=== PATIENT | female | born 1960 | race African-American/Black ===

== ENCOUNTER 2021-07-31 13:29 | Inpatient (IN) | payer OTHER, SELFPAY ==
[2021-07-31] VITALS (11 sets, daily range): BP systolic 105–160; BP diastolic 53–78; PULSE 59–115; RESP 14–25; TEMP 36.2–36.4; O2SAT 90–98; BMI 70.4; BMI 72.1
--- NOTE | 2021-07-31 13:56 | EKG12_ITS ---
Test Reason : GEN ILLNESS Blood Pressure : / mmHG Vent. Rate : 065 BPM Atrial Rate : 065 BPM P-R Int : 186 ms QRS Dur : 104 ms QT Int : 450 ms P-R-T Axes : 069 -71 093 degrees QTc Int : 468 ms Sinus rhythm with marked sinus arrhythmia Left anterior fascicular block Poor R wave progression Abnormal ECG Confirmed by CARMEL HANKINS, RJ ([id number]), newspaper editor KANIKA SWEENEY ([id number]) on 08/01/2021 8:53:58 AM Referred By: ANGELA Confirmed By:RJ BURT MD
[2021-07-31 14:29] LABS: Absolute Lymphocyte Count 0.99 X10^3/uL (0.83-4.51); Basophil# 0.04 X10^3/uL; Basophil% 0.6 % (0-1); Eosinophil# 0.18 X10^3/uL; Eosinophils% 2.5 % (0-5); Hematocrit 29.8 % (37-47); Hemoglobin 7.6 g/dL (12.0-15.0); Lymphocyte # 0.99 X10^3/ul (0.83-4.51); Lymphocyte % 13.8 % (19-41); Mean Corp Hgb Conc 25.5 g/dL (32-36); Mean Corpuscular Hgb 22.1 pg (27.0-32.0); Mean Corpuscular Volume 86.6 fL (81-99); Mean Platelet Vol. 10.1 fl (6.2-12.0); Monocyte# 1.01 X10^3/uL; NRBC Flagged by Analyzer 0 % (0-5); Neutrophil # 4.96 X10^3/uL (2.7-7.7); Platelet Count 316 K/mm3 (150-450); Red Blood Count 3.44 M/mm3 (4.2-5.4); White Blood Count 7.2 K/mm3 (4.4-11.0)
[2021-07-31 14:56] LABS: AST(SGOT) 24 U/L (15-37); Alanine Aminotransfer ALT/SGPT 19 U/L (13-56); Albumin, Serum 3.1 g/dL (3.2-5.0); Alkaline Phosphatase 206 U/L (45-117); Anion Gap 2 (5-15); BUN 34 mg/dL (7-18); BUN/Creat Ratio 24.6 RATIO (10-20); Bilirubin, Direct 0.39 mg/dL (0.00-0.30); Calcium,Total 9.1 mg/dL (8.5-10.1); Chloride 95 mmol/L (98-107); Creatinine, Serum 1.38 mg/dL (0.55-1.02); EST Glomerular Filtration Rate 41 mL/min (>60); Est Glom Filt Rate - Afr Amer 50 mL/min (>60); Estimated Creatinine Clearance 41.63 ml/min; Glucose 98 mg/dL (74-106); Potassium 3.7 mmol/L (3.5-5.1); Protein, Total 9.1 g/dL (6.4-8.2); Sodium Level 139 mmol/L (136-145); Troponin-I HS 22 pg/mL (3.0-54.0)
[2021-07-31 15:23] LABS: Mucous, Urine 0 SEEN /hpf (<or=2+)
[2021-07-31 15:28] LABS: Color, Urine Yellow (Yellow); Glucose, Dipstick Normal (Normal); Ketone-Dipstick Negative (Negative); Leukocyte Esterase-Dipstick Negative /ul (Negative); Nitrite-Dipstick Negative (Negative); Occult Blood-Urine Negative /ul (Negative); Protein-Dipstick 30 mg/dl (Negative); Specific Gravity, Urine 1.015 (1.002-1.030); Urine Bilirubin Dipstick Negative (Negative); Urine Clarity Clear (Clear); Urine Urobilinogen Normal (Normal)
--- NOTE | 2021-07-31 15:34 | EDS_ITS ---
HPI History of Present Illness Chief Complaint: Weakness Informant: patient and family Onset/Context/Timing Onset: Days Context: Gradual Onset Current Severity: Moderate Maximum Severity: Moderate Narrative Narrative: Patient presents with family secondary to generalized weakness. She reports increasing weakness recently but much worse over the last 3 days. She describes difficulty holding a cup and feels like her hands are still too weak and she drops things. She was seen at [place] emergency room on Friday. Noncontrast head CT was normal. Lab work was obtained. Family states that she has gotten more weak if anything since leaving the hospital. She denies headache, chest pain, abdominal pain. She denies urinary symptoms. [facility] Medical History Hypertension Obesity Type 2 diabetes mellitus Home Medications albuterol sulfate 2.5 mg INHALATION Q6HWA.RT PRN 11/23/12 [History Last Taken 07/31/21 13:00] losartan 100 mg PO DAILY 11/23/12 [History Last Taken 07/30/21] lorazepam 0.5 - 1 mg PO BID PRN 09/27/14 [History Last Taken 07/30/15] furosemide 80 mg PO BIDLX 01/24/16 [History Last Taken 07/31/21] insulin glargine U-300 conc [Olga Lopez] 65 unit SQ QHS 01/24/16 [History Last Taken 07/30/21] fluticasone propionate 2 spray NASAL DAILY PRN 02/22/16 [History Last Taken 1 Week Ago ~07/24/21] sertraline 100 - 150 mg PO DAILY 02/22/16 [History Last Taken 07/31/21] benzonatate 100 mg PO TID PRN 07/31/21 [History Last Taken 07/31/21] cyclobenzaprine 5 mg PO TID PRN 07/31/21 [History Last Taken Unknown] magnesium 250 mg PO DAILY 07/31/21 [History Last Taken 07/31/21] metolazone 5 mg PO BID PRN 07/31/21 [History Last Taken Unknown] pantoprazole 40 mg PO BID 07/31/21 [History Last Taken 07/31/21] Allergy/AdvReac Type Severity Reaction Status Date / Time codeine Allergy Nausea/Vom/ Verified 07/31/21 13:31 Diarrhea iodine Allergy Swelling Verified 07/31/21 13:31 latex Allergy Shortness Verified 07/31/21 13:31 of breath meloxicam Allergy Rash Verified 07/31/21 13:31 Penicillins Allergy Shortness Verified 07/31/21 13:31 of breath hydrocodone bitartrate AdvReac Nausea/Vom/ Verified 07/31/21 13:31 [From Vicodin] Diarrhea prednisone AdvReac Other Verified 07/31/21 13:31 Social History Smoking Status: Never smoker ROS ROS ED Constitutional Constitutional ED: Denies chills or fever(s) Eyes Eyes: Denies change in vision ENT ENT ED: Denies sore throat Cardiovascular Cardiovascular: Denies chest pain Respiratory/Chest Respiratory/Chest: Denies cough or dyspnea Gastrointestinal Gastrointestinal: Denies abdominal pain, nausea or vomiting Genitourinary Genitourinary ED: Denies dysuria Musculoskeletal Musculoskeletal: Denies back pain Integumentary Reports other Details: Wounds to left inner thigh ; Denies rash Neurologic Neurologic: Reports weakness; Denies headache(s) Psychiatric Psychiatric: Denies anxiety or depression Allergic/Immunologic Allergic/Immunologic ED: Denies urticaria EXAM Physical Exam Const Vital Signs: 07/31/21 13:31 07/31/21 15:33 Temperature 97.5 F L Temperature Source Temporal Pulse Rate 115 H 67 Respiratory Rate 25 H 18 Blood Pressure 124/78 H 159/64 H Blood Pressure Mean 93 95 Pulse Ox 90 97 Oxygen Delivery Method Room Air Nasal Cannula Oxygen Flow Rate (L/min) 2 Positive obese Nutritional Appearance: obese HEENT Reports moist mucous membranes Eyes PERRL and EOMs intact bilaterally Neck supple Chest Wall inspection of chest normal and palpation of chest normal Resp normal respiratory effort and clear to auscultation bilaterally Cardio regular rate and regular rhythm GI non-tender Palpation: soft Extremity Extremity Narrative: 2 wounds to the inner surface of the left thigh, 1 measuring 2 x 2 cm, 1 measuring 3 x 4 cm. No drainage or surrounding cellulitis. No sign of infection. Neuro oriented x3 Neuro Narrative: No focal neurologic deficits. Patient able to hold both arms up against gravity without difficulty. Ldgryo-al-ivdd testing normal. Sensorium / Orientation: alert Skin Skin Narrative: Left thigh wounds as noted above MDM MDM MDM Narrative Medical decision making narrative: Patient's work-up from [facility] was reviewed including a normal noncontrast head CT. EKG, lab work, urinalysis obtained. Lab Data Attestation: I reviewed the patient's lab results. Labs: Laboratory Results - last 24 hr 07/31/21 07/31/21 07/31/21 14:15 14:15 14:15 WBC 7.2 RBC 3.44 L Hgb 7.6 L Hct 29.8 L MCV 86.6 MCH 22.1 L MCHC 25.5 L RDW Std Deviation 60.0 H RDW Coeff of Amirah 19.0 H Plt Count 316 MPV 10.1 Immature Gran % (Auto) 0.100 Neut % (Auto) 69.0 Lymph % (Auto) 13.8 L [place] % (Auto) 14.0 H Eos % (Auto) 2.5 Baso % (Auto) 0.6 Absolute Neuts (auto) 5.0 Absolute Lymphs (auto) 0.99 Nucleated RBC % 0 Sodium 139 Potassium 3.7 Chloride 95 L Carbon Dioxide 42.0 H Anion Gap 2 L BUN 34 H Creatinine 1.38 H Estim Creat Clear Calc 41.63 Est GFR (MDRD) Af Amer 50 L Est GFR (MDRD) Non-Af 41 L BUN/Creatinine Ratio 24.6 H Glucose 98 Calcium 9.1 Total Bilirubin 0.80 Direct Bilirubin 0.39 H AST 24 ALT 19 Alkaline Phosphatase 206 H Ammonia 37.0 H Troponin I High Sens 22 Total Protein 9.1 H Albumin 3.1 L Globulin 6.0 H Urine Color Urine Clarity Urine pH Ur Specific [place] Urine Protein Urine Glucose (UA) Urine Ketones Urine Occult Blood Urine Nitrite Urine Bilirubin Urine Urobilinogen Ur Leukocyte Esterase Urine RBC Urine WBC Ur Squamous Epith Cells Urine Bacteria Hyaline Casts Urine Mucus Urine Opiates Screen Urine Methadone Screen Ur Barbiturates Screen Ur Phencyclidine Scrn Ur Amphetamines Screen MDMA (Ecstasy) Screen U Benzodiazepines Scrn Urine Cocaine Screen U Cannabinoids Screen Ur Drug Screen Comment 07/31/21 07/31/21 15:20 15:20 WBC RBC Hgb Hct MCV MCH MCHC RDW Std Deviation RDW Coeff of Amirah Plt Count MPV Immature Gran % (Auto) Neut % (Auto) Lymph % (Auto) [place] % (Auto) Eos % (Auto) Baso % (Auto) Absolute Neuts (auto) Absolute Lymphs (auto) Nucleated RBC % Sodium Potassium Chloride Carbon Dioxide Anion Gap BUN Creatinine Estim Creat Clear Calc Est GFR (MDRD) Af Amer Est GFR (MDRD) Non-Af BUN/Creatinine Ratio Glucose Calcium Total Bilirubin Direct Bilirubin AST ALT Alkaline Phosphatase Ammonia Troponin I High Sens Total Protein Albumin Globulin Urine Color Yellow Urine Clarity Clear Urine pH 6.0 Ur Specific [place] 1.015 Urine Protein 30 H Urine Glucose (UA) Normal Urine Ketones Negative Urine Occult Blood Negative Urine Nitrite Negative Urine Bilirubin Negative Urine Urobilinogen Normal Ur Leukocyte Esterase Negative Urine RBC 0-5 SEEN Urine WBC 0-5 SEEN Ur Squamous Epith Cells 0-5 SEEN Urine Bacteria RARE Hyaline Casts 25-50 SEEN Urine Mucus 0 SEEN Urine Opiates Screen NEGATIVE Urine Methadone Screen NEGATIVE Ur Barbiturates Screen NEGATIVE Ur Phencyclidine Scrn NEGATIVE Ur Amphetamines Screen NEGATIVE MDMA (Ecstasy) Screen NEGATIVE U Benzodiazepines Scrn NEGATIVE Urine Cocaine Screen NEGATIVE U Cannabinoids Screen NEGATIVE Ur Drug Screen Comment EKG Initial EKG: Attestation: I personally reviewed and interpreted this EKG as follows: Interpretation: Sinus Rhythm (Sinus at 65 with no acute ischemia.) Treatment and Re-Evaluation Narrative: Lab work remarkable for hemoglobin of 7.6. I was able to review prior labs over the last 15 months in [facility]. Her hemoglobin has been running 7.5-8.5. She is reported getting iron transfusions. Chemistry studies are unremarkable. Ammonia level is slightly elevated at 37. Urinalysis shows no acute infection and talk screen is negative. Patient has had continued decline since her recent ER evaluation. I do believe she would benefit from further evaluation and MRI of head. I will speak with the hospitalist. Discharge Plan Triage Chief Complaint: Weakness ED Provider: Princess Mcgee Dx/Rx/DC Orders Clinical Impression: Weakness Prescriptions: No Action albuterol sulfate 2.5 MG/3 ML solution for nebulization 2.5 mg inhalation Q6HWA.RT PRN (Reason: Asthma) RF: 0 losartan 100 MG tablet 100 mg PO DAILY RF: 0 lorazepam 1 MG tablet 0.5 - 1 mg PO BID PRN (Reason: Anxiety) RF: 0 furosemide 40 MG tablet 80 mg PO BIDLX RF: 0 Toujeo SoloStar U-300 Insulin 300 UNIT/ML insulin pen 65 unit SQ QHS RF: 0 sertraline 100 MG tablet 100 - 150 mg PO DAILY RF: 0 fluticasone propionate 1 SPRAY spray,suspension 2 spray NASAL DAILY PRN (Reason: Sinus Symptoms) RF: 0 metolazone 5 mg tablet 5 mg PO BID PRN (Reason: fluid) RF: 0 benzonatate 100 mg capsule 100 mg PO TID PRN (Reason: Cough) RF: 0 pantoprazole 40 mg tablet,delayed release (DR/EC) 40 mg PO BID RF: 0 magnesium 250 mg Tablet 250 mg PO DAILY RF: 0 cyclobenzaprine 5 mg tablet 5 mg PO TID PRN (Reason: Spasms) RF: 0 Primary Care Provider: Silvia Tolbert Referrals: Silvia Tolbert MD [Primary Care Provider] - Disposition Disposition: Acute Care [facility]
[2021-07-31 15:39] LABS: Bacteria RARE /hpf (None Seen); Hyaline Cast 25-50 SEEN /lpf (0-5); Red Blood Cells-Urine 0-5 SEEN /hpf (0-5); Squamous Epithelial Cells - UA 0-5 SEEN /hpf (5-10); White Blood Cells 0-5 SEEN /hpf (0-5)
[2021-07-31 15:50] LABS: Amphetamine Urine VISTA NEGATIVE (<1000 ng/mL); Barbiturate Urine VISTA NEGATIVE (< 200 ng/mL); Benzodiazepine Urine VISTA NEGATIVE (< 200 ng/mL); Cocaine Urine VISTA NEGATIVE (< 300 ng/mL); Ecstacy Urine VISTA NEGATIVE (< 500 ng/mL); Methadone Urine VISTA NEGATIVE (< 300 ng/mL); PCP Urine VISTA NEGATIVE (< 25 ng/mL); THC Urine VISTA NEGATIVE (< 50 ng/mL); Vista UDS pH Range 5
--- NOTE | 2021-07-31 16:26 | HP.PCM.HOS_ITS ---
HPI - General General Date of Admission: 07/31/21 HPI Narrative MEGGAN ARITA, is a 60 F with a PMH as outlined who presents with a complaint of weakness. Weakness had been going on for about 3 days. She said she felt like she had been dropping things easily for the past 3 days. She went to [place] ED and a noncontrast CT of the brain was negative. She was sent home. She had been getting weaker by the day, and so family brought her in today. She denied any fever, chills, nausea, vomiting, headache, chest pain, palpitations, dizziness, nausea or vomiting. Review of systems is otherwise negative. Son was by her bedside and mentioned that patient easily dozed off and fell asleep during the day since her symptoms started. She is known to have sleep apnea, and is suppsed to wear a CPAP, but says she is not able to tolerate it. She therefore wears 2L of oxygen at home. Vitals in the ED were BP of 159/64, NE of 67, RR of 18 and oxygen sats of 97% on 2L of oxygen. CBC showed hemoglobin of 7.6 and WBC of 7.2 with platelets of 316. Chemistry shows sodium of 139 with bicarb of 42 and creatinine of 1.38. Baseline creatinine from 2016 was 0.75. Her bicarb is chronically elevated. Her ammonia level was 37. Total bilirubin was 0.39 with ALP of 206 and normal AST and ALT. Urinalysis showed no evidence of UTI. Urine tox was also negative. She has been admitted to be managed well weakness and debility. [facility] Medical History (Updated 07/31/21 @ 17:53 by Suresh Hernandez) Anemia Anxiety Asthma CPAP (continuous positive airway pressure) dependence Hypertension Obesity Sleep apnea Type 2 diabetes mellitus Home Medications albuterol sulfate 2.5 mg INHALATION Q6HWA.RT PRN 11/23/12 [History Last Taken 07/31/21 13:00] losartan 100 mg PO DAILY 11/23/12 [History Last Taken 07/30/21] lorazepam 0.5 - 1 mg PO BID PRN 09/27/14 [History Last Taken 07/30/15] furosemide 80 mg PO BIDLX 01/24/16 [History Last Taken 07/31/21] insulin glargine U-300 conc [Toujejonas Lopez] 65 unit SQ QHS 01/24/16 [History Last Taken 07/30/21] fluticasone propionate 2 spray NASAL DAILY PRN 02/22/16 [History Last Taken 1 Week Ago ~07/24/21] sertraline 100 - 150 mg PO DAILY 02/22/16 [History Last Taken 07/31/21] benzonatate 100 mg PO TID PRN 07/31/21 [History Last Taken 07/31/21] cyclobenzaprine 5 mg PO TID PRN 07/31/21 [History Last Taken Unknown] magnesium 250 mg PO DAILY 07/31/21 [History Last Taken 07/31/21] metolazone 5 mg PO BID PRN 07/31/21 [History Last Taken Unknown] pantoprazole 40 mg PO BID 07/31/21 [History Last Taken 07/31/21] Allergy/AdvReac Type Severity Reaction Status Date / Time codeine Allergy Nausea/Vom/ Verified 07/31/21 13:31 Diarrhea iodine Allergy Swelling Verified 07/31/21 13:31 latex Allergy Shortness Verified 07/31/21 13:31 of breath meloxicam Allergy Rash Verified 07/31/21 13:31 Penicillins Allergy Shortness Verified 07/31/21 13:31 of breath hydrocodone bitartrate AdvReac Nausea/Vom/ Verified 07/31/21 13:31 [From Vicodin] Diarrhea prednisone AdvReac Other Verified 07/31/21 13:31 Surgical History (Updated 07/31/21 @ 17:53 by Suresh Hernandez) History of cholecystectomy Social History Smoking Status: Never smoker ROS Review of Systems ROS Unobtainable: Denies due to encephalopathy Constitutional Constitutional: Reports fatigue, malaise and weakness; Denies anorexia, chills or fever(s) Eyes Eyes: Denies change in vision ENT HEENT: Denies dysphagia or headache(s) Cardiovascular Cardiovascular: Denies chest pain, dyspnea on exertion, edema, lightheadedness, orthopnea, palpitations, paroxysmal nocturnal dyspnea or rapid heart rate Respiratory/Chest Respiratory/Chest: Denies cough, dyspnea, productive cough, shortness of breath at rest or shortness of breath with exertion Gastrointestinal Gastrointestinal: Denies abdominal pain, nausea or vomiting Genitourinary Genitourinary: Denies burning urination Musculoskeletal Musculoskeletal: Denies back pain Neurologic Neurologic: Reports confusion; Denies abnormal speech, dizziness, focal weakness, headache(s), numbness, paresthesias, seizure-like activity, seizures, tingling or tremor(s) Psychiatric Psychiatric: Denies anxiety or depression Vital Signs Vital Signs Vital Signs: 07/31/21 13:31 07/31/21 15:33 Temperature 97.5 F L Temperature Source Temporal Pulse Rate 115 H 67 Respiratory Rate 25 H 18 Blood Pressure 124/78 H 159/64 H Blood Pressure Mean 93 95 Pulse Ox 90 97 Oxygen Delivery Method Room Air Nasal Cannula Oxygen Flow Rate (L/min) 2 Weight Weight: 450 lb Body Mass Index (BMI) 70.4 Physical Exam Const alert and no apparent distress Constitutional Narrative: super morbid obesity General Appearance: cooperative Orientation / Consciousness: lethargic HEENT normocephalic, head/scalp atraumatic, hearing grossly normal bilaterally and moist oral mucous membranes Eyes PERRL, EOMs intact bilaterally and conjunctivae normal Neck no lymphadenopathy and supple Resp normal respiratory effort, no retractions, no use of accessory muscles and clear to auscultation bilaterally Resp Narrative: on 2L of oxygen; diminished breath sounds bibasally Cardio regular rate, regular rhythm, S1 normal heart sound, S2 normal heart sound and no murmurs GI normal to inspection, nondistended, normoactive bowel sounds, soft to palpation, non-tender, non-distended and hepatosplenomegaly Extremity normal to inspection, full ROM and no clubbing, cyanosis or edema Peripheral Pulses: Yes pulses 2+ throughout Skin no rashes or lesions noted Neuro oriented x3, CN's II-XII intact bilaterally and no focal motor deficits Sensorium / Orientation: awake and alert Motor Exam: strength 5/5 throughout Psych affect normal Results Lab / Micro Data Result Diagrams: 07/31/21 14:15 07/31/21 14:15 Labs: Laboratory Results - last 24 hr 07/31/21 14:15: WBC 7.2, RBC 3.44 L, Hgb 7.6 L, Hct 29.8 L, MCV 86.6, MCH 22.1 L , MCHC 25.5 L, RDW Std Deviation 60.0 H, RDW Coeff of Amirah 19.0 H, Plt Count 316, MPV 10.1, Immature Gran % (Auto) 0.100, Neut % (Auto) 69.0, Lymph % (Auto) 13.8 L, [place] % (Auto) 14.0 H, Eos % (Auto) 2.5, Baso % (Auto) 0.6, Absolute Neuts (auto) 5.0, Absolute Lymphs (auto) 0.99, Nucleated RBC % 0 07/31/21 14:15: Sodium 139, Potassium 3.7, Chloride 95 L, Carbon Dioxide 42.0 H, Anion Gap 2 L, BUN 34 H, Creatinine 1.38 H, Estim Creat Clear Calc 41.63, Est GFR (MDRD) Af Amer 50 L, Est GFR (MDRD) Non-Af 41 L, BUN/Creatinine Ratio 24.6 H , Glucose 98, Calcium 9.1, Total Bilirubin 0.80, Direct Bilirubin 0.39 H, AST 24, ALT 19, Alkaline Phosphatase 206 H, Troponin I High Sens 22, Total Protein 9.1 H, Albumin 3.1 L, Globulin 6.0 H 07/31/21 14:15: Ammonia 37.0 H 07/31/21 15:20: Urine Color Yellow, Urine Clarity Clear, Urine pH 6.0, Ur Specific [place] 1.015, Urine Protein 30 H, Urine Glucose (UA) Normal, Urine Ketones Negative, Urine Occult Blood Negative, Urine Nitrite Negative, Urine Bilirubin Negative, Urine Urobilinogen Normal, Ur Leukocyte Esterase Negative, Urine RBC 0-5 SEEN, Urine WBC 0-5 SEEN, Ur Squamous Epith Cells 0-5 SEEN, Urine Bacteria RARE, Hyaline Casts 25-50 SEEN, Urine Mucus 0 SEEN 07/31/21 15:20: Urine Opiates Screen NEGATIVE, Urine Methadone Screen NEGATIVE, Ur Barbiturates Screen NEGATIVE, Ur Phencyclidine Scrn NEGATIVE, Ur Amphetamines Screen NEGATIVE, MDMA (Ecstasy) Screen NEGATIVE, U Benzodiazepines Scrn NEGATIVE, Urine Cocaine Screen NEGATIVE, U Cannabinoids Screen NEGATIVE, Ur Drug Screen Comment Assessment & Plan Assessment/Plan (1) Weakness: PLAN: DEbility and weakness * I think her symptoms are due to her untreated sleep apnea and OHS, as she falls asleep very easily and is very lethargic during the day * she is supposed to wear CPAP at home but doesnt * ammonia is mildly elevated; liver enzymes are largely WNL * CT of hte brain done at outside hospital a few days ago was largely WNL * patient adamantly refuses MRI, and I do think she is low suspicion for a stroke. * admit to PCU with telemetry * put on lactulose * get ABG o/a of super morbid obesity, as CO2 retention may also be playing a role; ABG showed pH of 7.35, with pCO2 of 70, and pO2 of 66. * fall precautions * PT/OT consult * hold all sedative meds * * #HYpercapnia due to untreated OHS and HONEY * as above * consult pulmonology as she hasnt been seeing pulmonology on outpatient basis * counseled that her severe morbid obesity is contributing to her sleep apnea. * #LORNE * Cr is 1.38. Will hydrate gently and trend * only result in EMR is from 2015 when CR was <1; she usually follows up at [facility] now. WIll request records as this may be closer to her new baseline * #Type 2 diabetes mellitus: * On Toujeo 65 units nightly. * Insulin sliding scale. * Accu-Cheks ACH S. #Super morbid obesity * BMI is 72.1. Patient says she wants to lose weight and wants to try medication to help her lose weight. She is not willing to consider bariatric surgery because she says she knows a few friends who had severe complications from this. * To follow-up on outpatient basis with her PCP for consideration about medications to help lose weight. Counseled about dietary interventions. * #Chronic anemia * says she has a history of anemia and has been getting recurrent iron infusions at her PCP * scheduled for iron infusion tomorrow and family would like for her to receive it here * will check iron profile and order iron infusion for tomorrow morning * #Hypertension: On losartan #Heart failure: * On metolazone and Lasix. * Not in acute exacerbation. CUrrnent EF unknown as last echo on file is from May 2012 and showed EF of 60%, with normal LVSF nad no regional wall motion abnormalities noted. * check BNP #History of asthma: not in exacerbation. Breathing treatment with bronchodilators DVT prophylaxis: lovenox Code status: full code * Patient and her sons counseled extensively about different types of CODE STATUS including full code, DNR CCA and DNR CCA. Patient elects to be full code. * Total [id number] time 18 minutes. Charges/Coding Visit Charges OBSV E&M: 29800 Initial observation care L3 Procedures Hospitalists Procedures: 16686 Advncd Care Plan 30 Min
--- NOTE | 2021-07-31 16:57 | NURSING ---
PCU OBS KORAM WEAKNESS
[2021-07-31 17:06] LABS: Allen Test Positive; Base Excess 13 mmol/L (-2 to +2); Bicarbonate 38.9 mmol/L (22-26); Blood Gas Specimen Type ART; O2 Delivery Device Cannula; PO2 66 mmHG (75-100); SITE L Radial; SO2 90 % (95-99); Total Carbon Dioxide 41 mmol/L; pCO2 70.1 mmHg (35-45); pH 7.35 (7.35-7.45)
[2021-07-31] MEDS: oxyCODONE 5 MG Tablet 10 MG PO (18:31)
[2021-07-31] MEDS: Furosemide 80 MG Tablet PO (18:51)
[2021-07-31] MEDS: Albuterol 2.5 MG/3 ML VIAL.NEB. INHALATION (20:01)
[2021-07-31 20:31] LABS: Bedside Glucose 107 mg/dL (74-106)
--- NOTE | 2021-07-31 20:31 | NURSING ---
Respiratory informed charge nurse that the pt was difficult to arouse. Pt responded to staff however had difficulty staying awake blood sugar checked, result 107. VS obtained,respiratory therapist notified Physician, obtained order for BIPAP.
[2021-07-31 21:25] LABS: Ferritin 17 ng/mL (8-252); Iron 19 ug/dL (50-170); Iron Binding Capacity,Total 454 ug/dL (250-450); PERCENT IRON SATURATION 4.2 % (15.0-55.0)
[2021-07-31] MEDS: 0.9% Saline Lock 10 ML Syringe IV (21:53)
[2021-08-01] VITALS (13 sets, daily range): BP systolic 126–129; BP diastolic 63–75; PULSE 58–73; RESP 14–19; TEMP 36.2–36.9; O2SAT 92–97; BMI 72.1
[2021-08-01 06:02] LABS: Absolute Lymphocyte Count 1.22 X10^3/uL (0.83-4.51); Absolute Neutrophil Count 4.3 X10^3/uL (2.0-7.7); Basophil# 0.07 X10^3/uL; Eosinophil# 0.26 X10^3/uL; Eosinophils% 3.8 % (0-5); Hematocrit 30.2 % (37-47); Hemoglobin 7.7 g/dL (12.0-15.0); Lymphocyte # 1.22 X10^3/ul (0.83-4.51); Lymphocyte % 17.7 % (19-41); Mean Corp Hgb Conc 25.5 g/dL (32-36); Mean Corpuscular Volume 86.3 fL (81-99); Mean Platelet Vol. 10.3 fl (6.2-12.0); Monocyte# 1.01 X10^3/uL; Monocyte% 14.6 % (0-10); NRBC Flagged by Analyzer 0 % (0-5); Neutrophil # 4.33 X10^3/uL (2.7-7.7); Neutrophil % 62.6 % (47-70); Platelet Count 317 K/mm3 (150-450); RBC Distribution Width CV 19.3 % (11.6-14.6); RBC Distribution Width SD 61.2 fl (35.1-43.9); White Blood Count 6.9 K/mm3 (4.4-11.0)
[2021-08-01 06:48] LABS: ALB/GLOB Ratio 0.5 RATIO (0.9-2.4); AST(SGOT) 20 U/L (15-37); Alanine Aminotransfer ALT/SGPT 19 U/L (13-56); Albumin, Serum 2.9 g/dL (3.2-5.0); Alkaline Phosphatase 189 U/L (45-117); Anion Gap 2 (5-15); BUN 36 mg/dL (7-18); BUN/Creat Ratio 27.1 RATIO (10-20); Calcium,Total 9.1 mg/dL (8.5-10.1); Chloride 94 mmol/L (98-107); Creatinine, Serum 1.33 mg/dL (0.55-1.02); EST Glomerular Filtration Rate 43 mL/min (>60); Est Glom Filt Rate - Afr Amer 52 mL/min (>60); Estimated Creatinine Clearance 44.81 ml/min; Globulin 5.9 g/dL (2.2-4.2); Glucose 103 mg/dL (74-106); Potassium 3.7 mmol/L (3.5-5.1); Protein, Total 8.8 g/dL (6.4-8.2); Sodium Level 137 mmol/L (136-145)
[2021-08-01 06:55] LABS: Bedside Glucose 95 mg/dL (74-106)
--- NOTE | 2021-08-01 07:52 | RAD_ITS ---
STUDY: X-RAY CHEST REASON FOR EXAM: Female, 60 years old. Shortness of breath. TECHNIQUE: Single frontal view of the chest. COMPARISON: 02/22/2016. FINDINGS: Interval development of diffuse interstitial pattern. There is no demonstrated pleural abnormality. Stable cardiomegaly. Normal mediastinum and nik. Normal visualized pulmonary arteries. Normal visualized aortic arch and descending thoracic aorta. Normal visualized thoracic spine. Normal visualized ribs, clavicles, and shoulders. There is no demonstrated abnormality of the visualized soft tissue structures of the upper abdomen. RAD/Chest 1 View (Portable) IMPRESSION: Cardiomegaly with diffuse interstitial pattern compatible with mild interstitial edema/congestive failure. Follow-up chest imaging to resolution recommended. No acute or emergent finding. Electronically Signed: Edilberto Bustillos MD at 13:22 EDT ,
[2021-08-01] MEDS: Sodium Ferric Gluconat 250 MG in 0.9% Normal Saline 250 ML 135 MG IV (08:15)
[2021-08-01] MEDS: Acetaminophen 325 MG Tablet 650 MG PO ×2 (09:30→19:02)
[2021-08-01] MEDS: oxyCODONE 5 MG Tablet 10 MG PO (09:30)
[2021-08-01] MEDS: Sertraline 100 MG Tablet PO (09:31)
[2021-08-01] MEDS: Magnesium Chloride 64 MG Delay Rel.Tablet 128 MG PO (09:31)
[2021-08-01] MEDS: Enoxaparin 40 MG/0.4 ML Syringe SC (09:31)
--- NOTE | 2021-08-01 10:17 | CASEMGMT ---
Addendum entered by Victorina Rodriguez 08/01/21 10:43: Call back from Marleny and she states that pt's insurance will 'cover until pt stable then pt to transfer.' This SHELBY MENDEZ placed call directly to [facility] provider line number and spoke with rep and she states that after running pt's member ID and [facility] NPI/tax ID number, [facility] is in-network with pt's insurance. Message left with registration to notify. Chiara RYAN CM Original Note: Call to Marleny in registration to clarify as pt's insurance is saying [facility] is 'out of network'. CM to follow. Chiara RYAN CM
--- NOTE | 2021-08-01 11:20 | CASEMGMT ---
SHELBY MENDEZ assessment: Face to Face with patient for initial transition planning/care coordination assessment. SHELBY MENDEZ introduced self and role at [facility], pt voices understanding and consents to assessment. Pt is sitting up in bed on avaps and is sleeping soundly without distress. Pt's son, Ross, and sig other, Ramone, are at bedside and willing to answer questions for pt at this time. Care providers, pharmacy, and demographics verified. Presentation: Pt seen at [place] ED friday for stroke and this was ruled out-pt still c/o weak/shakey and per family has been 'foggy' for weeks Admitting dx: Weakness, debility, anemia PCP: Didi Specialists: None Preferred Pharmacy: [facility]-pt was at [facility] in [place] but son/sig other would like pt to have med dose packs and would like to [facility] [place] provided to family and changed in computer Insurance: [facility] Prescription Benefit: [facility] Living Will/HPOA: Pt does not have LW/HPOA. LNOK: Ross Null, son; Fiona Null, sister Living Arrangements: Pt lives with sig verónica, Ramone, on main level of 2 story home and Ramone assists with ADL's. Per son, pt sponge bathes. Transportation: Pt or family drives and state no transportation concerns but son does state they have struggled getting pt in and out of car for last week or so d/t weakness. DME/HHC: Pt has the following DME: cane, walker, BSC, nebulizer, cpap(does not use), and 2L nc at bedtime w/ concentrator and portables but they do not know name of DME company. Pt has no hx of HHC or SNF. 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 Pt does not smoke cigarettes or drink ETOH. CM to follow therapy notes and for any further discharge planning/needs. Advised pt to ask for CM if any further questions/concerns/needs arise, voices understanding. Pt Goal: Home Plan: TBD, pending clinical course and therapy evbethanie. Chiara RYAN CM
[2021-08-01 11:55] LABS: Bedside Glucose 107 mg/dL (74-106)
--- NOTE | 2021-08-01 12:04 | CHAPLAIN ---
Type of Pastoral Visit _x__ Initial Visit ___ Follow-up Visit ___ On-call Visit ___ General Patient Visit ___ Spiritual Assessment ___ Family Conference ___ Bereavement ___ Rapid Response ___ Code Blue ___ Other (describe below) Pastoral Care Referral From ___ Patient _x__ Family ___ Nurse ___ Physician ___ Paper Core Machine Operator ___ Broke Beater ___ Other (describe below) Sacrament/Intervention _x__ Active listening ___ Anointing ___ Temple ___ Bereavement ___ Communion _x__ Berkley exploration ___ ___ Life review _x__ Prayer ___ Reconciliation ___ Sacrament of Sick _x__ Supportive presence ___ Wedding ___ Other (describe below) Pastoral Comments patient is on bi-pap and sleeping at time of visit; significant other and a son are in the room; offer of support given; the family members give insight into what pt might appreciate or need in spiritual care; decision by family to offer a prayer and check in another time to see if more is desired;
--- NOTE | 2021-08-01 12:40 | EX.PCM.CONCC ---
Assessment & Plan Assessment/Plan (1) Obesity hypoventilation syndrome: (2) Obesity due to excess calories with serious comorbidity: (3) Asthma: QUALIFIERS: Asthma severity: mild intermittent (4) Iron deficiency anemia: PLAN: RECOMMENDATIONS: 1. AVAPS with any sleep 2. Limit narcotics and benzodiazepines 3. Outpatient complete PFT, sleep study and walking oximetry 4. Anemia therapy per hospitalist 5. Agree with GI work-up IMPRESSIONS: 1. Probable obesity hypoventilation syndrome Technically, patient does have a significantly elevated AA gradient. Cannot exclude an element of atelectasis given body habitus. However, CO2 retention is highly suggestive of hypoventilation. Patient was noted to have a negative tox screen on presentation. Patient does have a significantly elevated, but compensated carbon dioxide indicating probable obesity hypoventilation syndrome. This could be a natural progression from patient's previous HONEY. Patient reportedly has CPAP at baseline. This would not be an adequate therapy for hypoventilation. Patient will need an outpatient polysomnogram and titration for NIV versus BiPAP therapy. Long discussion with the family at the bedside and they understand the severity of the situation. Respiratory situation is complicated by the use of narcotics and benzodiazepines at knee should be avoided if possible. Patient was agreeable to try AVAPS while hospitalized. May need to arrange for discharge to a sleep study. 2. Iron deficiency anemia Unclear etiology. Family unable to provide much information about the patient's bowel habits. GI has been consulted and iron supplementation has been ordered. I believe this is appropriate. This would complicate respiratory mechanics and need for supplemental oxygen. 3. Acute kidney injury Patient usually follows with [facility]. Patient appears to be slightly dry clinically. Gentle hydration has been ordered. Trend creatinine, but previously was less than 1 in 2016. No indication for renal replacement therapy at this time. Excessive bicarbonate secondary to #1, not diuretics in my opinion. 4. Super morbid obesity/type 2 diabetes mellitus/chronic iron deficiency anemia/hypertension/CHF/history of asthma Complicates care, management, recovery and prognosis. Clinical assessment is significantly limited given body habitus. Patient does have some edema, but Lasix has been initiated. Do not believe patient is in an exacerbation of asthma at this time. Would not recommend systemic steroids as this could be complicating diabetic management. HPI Consult Data Date of Consult: 08/01/21 HPI Narrative HPI Narrative: MEGGAN ARITA is a 60 F, with past medical history listed below, who presents to [facility] on 07/[facility]/2021 with family secondary to generalized weakness. Patient reportedly had similar complaints previously, but this got much worse over the last 3 days. Patient had gotten to the point where she had difficulty holding a cup and felt like her hands were too weak so she was dropping things. Patient was seen at an outside emergency department earlier in the week and had a CT that was within normal limits. Patient also had reported that lab work was obtained, but results were not available for review. Patient states her family was told that if she became more weak that she should present back to the ED. Patient not reporting any headache, chest pain, Isaias pain or urinary symptoms. In the ER, patient was afebrile, but tachycardic at 115 bpm. Patient was noted to be 90% on room air. Patient did eventually go on 2 L nasal cannula. Laboratory work-up showed a hemoglobin of 7.6 with 316 platelet count. Patient also had an elevated bicarbonate of 42 with creatinine of 1.38. Ammonia was elevated at 37 along with alkaline phosphatase at 206 and total protein at 9.1. Urinalysis was relatively unremarkable and drug screen was negative. Patient was admitted to the hospital for further evaluation. Since being admitted, patient reportedly had felt okay. Patient did receive 10 mg of oxycodone approximately an hour before my evaluation. Patient was very somnolent and not able to open her eyes for long periods of time. Most of the history from my perspective was obtained from the son who was present at the bedside. Patient reportedly has been treated for obstructive sleep apnea in the past with CPAP. Patient has not tolerated this and has not used it in almost 9 years. Patient has had substantial weight gain since that time. Patient does have limited mobility given her body habitus. Patient reportedly has used a full facemask in the past, but her son had stated that she had discussed using a nasal interface as he tolerates this much better. The son was unaware of if the patient has ever been seen by pick and shovel man. Patient has been struggling with anemia and receiving iron infusions. Patient's son was unaware regarding change in bowel movement. Family is not aware of any previous liver difficulties. Patient has never been a smoker, drinker or used illicit drugs from their perspective. Patient does use Lasix routinely and reportedly has been compliant. Review of systems otherwise negative, per son, from a constitutional, HEENT, respiratory, cardiovascular, GI, genitourinary, musculoskeletal, skin, neurologic, psychiatric and hematologic system unless stated above. [facility] Medical History Anemia Anxiety Asthma CPAP (continuous positive airway pressure) dependence Hypertension Obesity Sleep apnea Type 2 diabetes mellitus Home Medications albuterol sulfate 2.5 mg INHALATION Q6HWA.RT PRN 11/23/12 [History Last Taken 07/31/21 13:00] losartan 100 mg PO DAILY 11/23/12 [History Last Taken 07/30/21] lorazepam 0.5 - 1 mg PO BID PRN 09/27/14 [History Last Taken 07/30/15] furosemide 80 mg PO BIDLX 01/24/16 [History Last Taken 07/31/21] insulin glargine U-300 conc [Olga Lopez] 65 unit SQ QHS 01/24/16 [History Last Taken 07/30/21] fluticasone propionate 2 spray NASAL DAILY PRN 02/22/16 [History Last Taken 1 Week Ago ~07/24/21] sertraline 100 - 150 mg PO DAILY 02/22/16 [History Last Taken 07/31/21] benzonatate 100 mg PO TID PRN 07/31/21 [History Last Taken 07/31/21] cyclobenzaprine 5 mg PO TID PRN 07/31/21 [History Last Taken Unknown] magnesium 250 mg PO DAILY 07/31/21 [History Last Taken 07/31/21] metolazone 5 mg PO BID PRN 07/31/21 [History Last Taken Unknown] pantoprazole 40 mg PO BID 07/31/21 [History Last Taken 07/31/21] Allergy/AdvReac Type Severity Reaction Status Date / Time codeine Allergy Nausea/Vom/ Verified 07/31/21 13:31 Diarrhea iodine Allergy Swelling Verified 07/31/21 13:31 latex Allergy Shortness Verified 07/31/21 13:31 of breath meloxicam Allergy Rash Verified 07/31/21 13:31 Penicillins Allergy Shortness Verified 07/31/21 13:31 of breath hydrocodone bitartrate AdvReac Nausea/Vom/ Verified 07/31/21 13:31 [From Vicodin] Diarrhea prednisone AdvReac Other Verified 07/31/21 13:31 Surgical History History of cholecystectomy Social History Smoking Status: Never smoker ROS ROS Narrative See HPI Physical Exam Const no apparent distress Constitutional Narrative: super morbid obesity General Appearance: cooperative; Negative for on BiPAP Orientation / Consciousness: lethargic HEENT normocephalic, head/scalp atraumatic, hearing grossly normal bilaterally and moist oral mucous membranes Eyes PERRL, EOMs intact bilaterally and conjunctivae normal Neck no lymphadenopathy and supple Resp normal respiratory effort, no retractions, no use of accessory muscles and clear to auscultation bilaterally Resp Narrative: on 3L of oxygen; diminished breath sounds bibasally Cardio regular rate, regular rhythm, S1 normal heart sound, S2 normal heart sound and no murmurs GI normal to inspection, nondistended, normoactive bowel sounds, soft to palpation, non-tender, non-distended and hepatosplenomegaly Extremity normal to inspection and full ROM General Extremity: edema; Negative for clubbing or cyanosis Peripheral Pulses: Yes pulses 2+ throughout Skin no rashes or lesions noted Neuro oriented x3, CN's II-XII intact bilaterally and no focal motor deficits Sensorium / Orientation: awake and alert Motor Exam: strength 5/5 throughout Psych affect normal Lab / Micro Data Result Diagrams: 08/01/21 05:02 08/01/21 05:02 Labs: Laboratory Results - last 24 hr 07/31/21 14:15: WBC 7.2, RBC 3.44 L, Hgb 7.6 L, Hct 29.8 L, MCV 86.6, MCH 22.1 L, MCHC 25.5 L, RDW Std Deviation 60.0 H, RDW Coeff of Amirah 19.0 H, Plt Count 316, MPV 10.1, Immature Gran % (Auto) 0.100, Neut % (Auto) 69.0, Lymph % (Auto) 13.8 L, Victoria % (Auto) 14.0 H, Eos % (Auto) 2.5, Baso % (Auto) 0.6, Absolute Neuts (auto) 5.0, Absolute Lymphs (auto) 0.99, Nucleated RBC % 0 07/31/21 14:15: Sodium 139, Potassium 3.7, Chloride 95 L, Carbon Dioxide 42.0 H, Anion Gap 2 L, BUN 34 H, Creatinine 1.38 H, Estim Creat Clear Calc 41.63, Est GFR (MDRD) Af Amer 50 L, Est GFR (MDRD) Non-Af 41 L, BUN/Creatinine Ratio 24.6 H, Glucose 98, Calcium 9.1, Total Bilirubin 0.80, Direct Bilirubin 0.39 H, AST 24, ALT 19, Alkaline Phosphatase 206 H, Troponin I High Sens 22, Total Protein 9.1 H, Albumin 3.1 L, Globulin 6.0 H 07/31/21 14:15: Ammonia 37.0 H 07/31/21 14:15: Iron 19 L, TIBC 454 H, Iron Saturation 4.2 L, Ferritin 17 07/31/21 15:20: Urine Color Yellow, Urine Clarity Clear, Urine pH 6.0, Ur Specific [place] 1.015, Urine Protein 30 H, Urine Glucose (UA) Normal, Urine Ketones Negative, Urine Occult Blood Negative, Urine Nitrite Negative, Urine Bilirubin Negative, Urine Urobilinogen Normal, Ur Leukocyte Esterase Negative, Urine RBC 0-5 SEEN, Urine WBC 0-5 SEEN, Ur Squamous Epith Cells 0-5 SEEN, Urine Bacteria RARE, Hyaline Casts 25-50 SEEN, Urine Mucus 0 SEEN 07/31/21 15:20: Urine Opiates Screen NEGATIVE, Urine Methadone Screen NEGATIVE, Ur Barbiturates Screen NEGATIVE, Ur Phencyclidine Scrn NEGATIVE, Ur Amphetamines Screen NEGATIVE, MDMA (Ecstasy) Screen NEGATIVE, U Benzodiazepines Scrn NEGATIVE, Urine Cocaine Screen NEGATIVE, U Cannabinoids Screen NEGATIVE, Ur Drug Screen Comment 07/31/21 20:26: POC Glucose 107 H 08/01/21 05:02: WBC 6.9, RBC 3.50 L, Hgb 7.7 L, Hct 30.2 L, MCV 86.3, MCH 22.0 L, MCHC 25.5 L, RDW Std Deviation 61.2 H, RDW Coeff of Amirah 19.3 H, Plt Count 317, MPV 10.3, Immature Gran % (Auto) 0.300, Neut % (Auto) 62.6, Lymph % (Auto) 17.7 L, Victoria % (Auto) 14.6 H, Eos % (Auto) 3.8, Baso % (Auto) 1.0, Absolute Neuts (auto) 4.3, Absolute Lymphs (auto) 1.22, Nucleated RBC % 0 08/01/21 05:02: Sodium 137, Potassium 3.7, Chloride 94 L, Carbon Dioxide 41.0 H, Anion Gap 2 L, BUN 36 H, Creatinine 1.33 H, Estim Creat Clear Calc 44.81, Est GFR (MDRD) Af Amer 52 L, Est GFR (MDRD) Non-Af 43 L, BUN/Creatinine Ratio 27.1 H, Glucose 103, Calcium 9.1, Total Bilirubin 0.70, AST 20, ALT 19, Alkaline Phosphatase 189 H, Total Protein 8.8 H, Albumin 2.9 L, Globulin 5.9 H, Albumin/Globulin Ratio 0.5 L 08/01/21 06:47: POC Glucose 95 08/01/21 11:42: POC Glucose 107 H ABG Data ABG results: ABG 07/31/21 16:56 Specimen Type ART Sample Site L Radial pH 7.35 Bicarbonate Actual 38.9 H Total CO2 41 Base Excess 13 H O2 Saturation 90 L ABG pCO2 70.1 H* ABG pO2 66 L Cyril Test Positive O2 Delivery Device Cannula Liter Flow 3.0 Crit Call To/Read Back Yes Blood Gas Notified Whom marc Charges/Coding Visit Charges Inpatient E&M: 37173 Init Hosp L3
--- NOTE | 2021-08-01 14:33 | CASEMGMT ---
Per Dr. Devine's note, pt may need sleep study at d/c and message left with [facility] sleep center to see if they have any availability. CM to follow. Chiara RYAN CM
--- NOTE | 2021-08-01 15:46 | PN.HOSP_ITS ---
Subjective Subjective She is feeling better than she was previously. She was on BiPAP through the evening related to hypercapnia although this appears to be chronic. She denies any nausea vomiting diarrhea or significant constipation and denies any hematemesis coffee-ground emesis, hematochezia, or melena. She does acknowledge that she had a history of H. pylori gastritis but not had any recent scopes. We discussed that her hemoglobin appears to be significantly lower than it was on our most recent data from 2016 however do not think have anything more recent. She is markedly iron deficient. She no longer has cycles. She has had no recent obvious bleeding from anywhere. Patient evidently became lethargic this afternoon after bending giving oxycodone for pain and was placed on BiPAP. Unfortunately her son was feeding her and she choked on some food prior to that. Speech therapy was consulted. Objective Data Objective Data Vital Signs: Vital Signs Temp Pulse Resp BP Pulse Ox 98.4 F 62 16 127/69 H 95 08/01/21 15:30 08/01/21 15:30 08/01/21 15:30 08/01/21 15:30 08/01/21 15:30 Oxygen Flow Rate (L/min) 3 Oxygen Delivery Method Nasal Cannula Weight: 215.003 kg Body Mass Index (BMI) 72.1 Intake & Output: Intake and Output for Last 24 Hours 07/30/21 07/31/21 08/01/21 23:59 23:59 23:59 Intake Total 0 / 0 620 / 620 Output Total 800 / 800 Balance 0 / 0 -180 / -180 Lab / Micro Data Result Diagrams: 08/01/21 05:02 08/01/21 05:02 Labs: Laboratory Results - last 24 hr 07/31/21 14:15: Iron 19 L, TIBC 454 H, Iron Saturation 4.2 L, Ferritin 17 07/31/21 15:20: Urine Opiates Screen NEGATIVE, Urine Methadone Screen NEGATIVE, Ur Barbiturates Screen NEGATIVE, Ur Phencyclidine Scrn NEGATIVE, Ur Amphetamines Screen NEGATIVE, MDMA (Ecstasy) Screen NEGATIVE, U Benzodiazepines Scrn NEGATIVE, Urine Cocaine Screen NEGATIVE, U Cannabinoids Screen NEGATIVE 07/31/21 20:26: POC Glucose 107 H 08/01/21 05:02: WBC 6.9, RBC 3.50 L, Hgb 7.7 L, Hct 30.2 L, MCV 86.3, MCH 22.0 L , MCHC 25.5 L, RDW Std Deviation 61.2 H, RDW Coeff of Amirah 19.3 H, Plt Count 317, MPV 10.3, Immature Gran % (Auto) 0.300, Neut % (Auto) 62.6, Lymph % (Auto) 17.7 L, [place] % (Auto) 14.6 H, Eos % (Auto) 3.8, Baso % (Auto) 1.0, Absolute Neuts (auto) 4.3, Absolute Lymphs (auto) 1.22, Nucleated RBC % 0 08/01/21 05:02: Sodium 137, Potassium 3.7, Chloride 94 L, Carbon Dioxide 41.0 H, Anion Gap 2 L, BUN 36 H, Creatinine 1.33 H, Estim Creat Clear Calc 44.81, Est GFR (MDRD) Af Amer 52 L, Est GFR (MDRD) Non-Af 43 L, BUN/Creatinine Ratio 27.1 H , Glucose 103, Calcium 9.1, Total Bilirubin 0.70, AST 20, ALT 19, Alkaline Phosphatase 189 H, Total Protein 8.8 H, Albumin 2.9 L, Globulin 5.9 H, Albumin/Globulin Ratio 0.5 L 08/01/21 06:47: POC Glucose 95 08/01/21 11:42: POC Glucose 107 H ABG Data ABG results: ABG 07/31/21 16:56 Specimen Type ART Sample Site L Radial pH 7.35 Bicarbonate Actual 38.9 H Total CO2 41 Base Excess 13 H O2 Saturation 90 L ABG pCO2 70.1 H* ABG pO2 66 L Cyril Test Positive O2 Delivery Device Cannula Liter Flow 3.0 Crit Call To/Read Back Yes Blood Gas Notified Whom tran Radiography Diagnostic Testing: Radiology Impression Chest X-Ray 08/01/21 07:52 IMPRESSION: Cardiomegaly with diffuse interstitial pattern compatible with mild interstitial edema/congestive failure. Follow-up chest imaging to resolution recommended. No acute or emergent finding. Electronically Signed: Edilberto Bustillos MD at 13:22 EDT , Physical Exam Const alert and oriented x3 Constitutional Narrative: Super morbidly obese -Mal[place]ian female lying in bed with her and son at bedside, patient appears comfortable nontoxic, currently eating lunch Exam Limitations: no limitations Nutritional Appearance: morbidly obese HEENT head/scalp atraumatic and moist oral mucous membranes HEENT Narrative: Mallampati 4, no thrush, dentition is fair Head and Scalp: normocephalic Eyes PERRL and EOMs intact bilaterally Eyes Narrative: No conjunctiva bilaterally, no scleral icterus Neck no lymphadenopathy, supple and no JVD Neck Narrative: Neck is short and thick with redundant tissue Resp normal respiratory effort, no retractions, no use of accessory muscles and clear to auscultation bilaterally Resp Narrative: Distant secondary to body habitus but no adventitious sounds noted Auscultation: Negative for crackles, rales, rhonchi or wheezes Cardio regular rate, regular rhythm, S1 normal heart sound, S2 normal heart sound, no murmurs, no rub, no gallops, no clicks and no JVD GI normal to inspection, nondistended, normoactive bowel sounds, soft to palpation, non-tender and non-distended GI Narrative: Large pannus Extremity Extremity Narrative: Lower extremity with changes consistent with chronic venous stasis, skin is thick and hyperkeratotic, chronic edema at 1-2+ noted-pitting in nature, no cyanosis or clubbing, few scattered wounds noted on bilateral lower extremities right greater than left Peripheral Pulses: Yes pulses 2+ throughout Skin No no wounds, skin turgor normal, no jaundice, no petechiae and no mottling Skin Narrative: Wounds as noted above on lower extremities Neuro oriented x3, CN's II-XII intact bilaterally, moves all extremities, no focal motor deficits and no sensory deficits noted Neuro Narrative: Generalized weakness but no focal deficits Sensorium / Orientation: awake and alert Psych affect normal Psych Narrative: Patient is appropriately interactive Assessment & Plan Assessment/Plan (1) Iron deficiency anemia: (2) Obesity hypoventilation syndrome: (3) Obesity due to excess calories with serious comorbidity: (4) Weakness: (5) Elevated serum creatinine: PLAN: Iron deficiency anemia -Current CBC shows a hemoglobin of 7.7 -Hemoglobins were running in the 9-10 range in 2016 -I have no data in between these time frames -Iron studies show marked iron deficiency -IV iron x3 days with first dose today -Start IV Protonix 40 mg p.o. IV push twice daily -Consult GI -Patient has known history of H. pylori gastritis -She denies any hematemesis/coffee-ground emesis/hematochezia/melena -Patient no longer has menses Chronic hypoxic and hypercapnic respiratory failure secondary to obesity hypoventilation syndrome/HONEY -AA gradient is significantly elevated -Patient with what appears to be chronic CO2 retention and a baseline CO2 from 60-70 -Demonstrates compensation with an elevated serum bicarb -Patient has been noncompliant with CPAP previously and wears only oxygen at night -AVAPS while here -We will need outpatient polysomnography -Pulmonary medicine is following and has had an extensive discussion with the family -Minimize narcotics and benzodiazepines as able Elevated serum creatinine -Patient with previous baseline serum creatinine less than 1 in 2016 -No recent data for extreme parison -Serum creatinine here has been in the 1.3-1.4 range -This may be her new baseline -We will hold losartan and diuretics -Patient clinically appears slightly dry -Repeat BMP in a.m. DM-2 -Check hemoglobin A1c -Continue basal insulin at 65 units nightly -Continue sliding scale Hypertension -Hold home losartan/metolazone/Lasix -As needed hydralazine Asthma -Continue as needed albuterol Depression/anxiety -Continue home sertraline -Use Ativan sparingly Chronic pain -Minimize oxycodone use -As needed Tylenol DVT prophylaxis -Continue Lovenox CODE STATUS -full code Charges/Coding Visit Charges Inpatient E&M: 21689 Subs Hosp L2
[2021-08-01 16:51] LABS: Bedside Glucose 87 mg/dL (74-106)
--- NOTE | 2021-08-01 17:18 | CON.PCM_ITS ---
Assessment & Plan Assessment/Plan (1) Iron deficiency anemia: PLAN: I do not think she can prep for colonoscopy at this time. I will perform an EGD to evaluate upper GI tract to see if there is any signs of GI bleeding in the upper GI tract. Her risk factors are age pylori x2 associated gastritis. She was explained alternatives, risk, benefits including not withstanding bleeding, infection, sepsis, perforation, need for Ryan to . Have an ASA of 3. HPI Consult Data Date of Consult: 08/01/21 HPI Narrative HPI Narrative: MEGGAN ARITA, is a 60 F who presents with family secondary to generalized weakness. She has a PMH of morbid obesity, HONEY and CHRISTEL. She reports increasing weakness recently but much worse over the last 3 days. She describes difficulty holding a cup and feels like her hands are still too weak and she drops things. She was seen at [facility] room on Friday. Noncontrast head CT was normal. Lab work was obtained. Family states that she has gotten more weak if anything since leaving the hospital. She denies headache, chest pain, abdominal pain. She denies urinary symptoms. Her hgb is 7.7 with a BUN/Cr 36/1.33. She d enies and signs of lower GI bleeding. Her las upper endoscopy was in 2016. She was identified as having H.pylori gastritis without any stigmata of bleeding. She did have stool test afterwards for h.pylori and it was negative. She said that she had a colonoscopy 3 years ago for history of polyps and at that time she said that there were no signs of bleeding. [facility] Medical History (Updated 08/01/21 @ 15:[address] Genesis Garcia, ) Anemia Anxiety Asthma Chronic respiratory failure with hypoxia and hypercapnia CPAP (continuous positive airway pressure) dependence Hypertension Obesity Sleep apnea Type 2 diabetes mellitus Home Medications albuterol sulfate 2.5 mg INHALATION Q6HWA.RT PRN 11/23/12 [History Last Taken 07/31/21 13:00] losartan 100 mg PO DAILY 11/23/12 [History Last Taken 07/30/21] lorazepam 0.5 - 1 mg PO BID PRN 09/27/14 [History Last Taken 07/30/15] furosemide 80 mg PO BIDLX 01/24/16 [History Last Taken 07/31/21] insulin glargine U-300 conc [Olga Solisrony] 65 unit SQ QHS 01/24/16 [History Last Taken 07/30/21] fluticasone propionate 2 spray NASAL DAILY PRN 02/22/16 [History Last Taken 1 Week Ago ~07/24/21] sertraline 100 - 150 mg PO DAILY 02/22/16 [History Last Taken 07/31/21] benzonatate 100 mg PO TID PRN 07/31/21 [History Last Taken 07/31/21] cyclobenzaprine 5 mg PO TID PRN 07/31/21 [History Last Taken Unknown] magnesium 250 mg PO DAILY 07/31/21 [History Last Taken 07/31/21] metolazone 5 mg PO BID PRN 07/31/21 [History Last Taken Unknown] pantoprazole 40 mg PO BID 07/31/21 [History Last Taken 07/31/21] Allergy/AdvReac Type Severity Reaction Status Date / Time codeine Allergy Nausea/Vom/ Verified 07/31/21 13:31 Diarrhea iodine Allergy Swelling Verified 07/31/21 13:31 latex Allergy Shortness Verified 07/31/21 13:31 of breath meloxicam Allergy Rash Verified 07/31/21 13:31 Penicillins Allergy Shortness Verified 07/31/21 13:31 of breath hydrocodone bitartrate AdvReac Nausea/Vom/ Verified 07/31/21 13:31 [From Vicodin] Diarrhea prednisone AdvReac Other Verified 07/31/21 13:31 Surgical History History of cholecystectomy Social History Smoking Status: Never smoker ROS Review of Systems ROS Unobtainable: other Constitutional Constitutional: Denies fatigue, fever(s), poor appetite, weight gain or weight loss ENT HEENT: Denies mouth lesions Cardiovascular Cardiovascular: Denies abdominal bloating, abdominal edema or abdominal pain Respiratory/Chest Respiratory/Chest: Denies change in mental status, change in phlegm color, chest congestion or chest tightness Gastrointestinal Gastrointestinal: Denies belching, bloating, change in bowel habits, change in stool character, chewing difficulty, coffee ground emesis, constipation, cramping, diarrhea, dyspepsia, dysphagia, early satiety, excessive flatus, fecal incontinence, heartburn, hematemesis, hematochezia, hemorrhoids, loose stools, melena, nausea, odynophagia, rectal bleeding, tenesmus, vomiting or weight changes Genitourinary Genitourinary: Denies abdominal discomfort, burning urination or itching Musculoskeletal Musculoskeletal: Reports as per HPI; Denies muscle weakness or myalgias Integumentary Integumentary: Denies jaundice Neurologic Neurologic: Denies lack of coordination or weakness Psychiatric Psychiatric: Denies confusion, depression, memory loss, mood swings, paranoia or suicidal ideation Endocrine Endocrinology: Denies systems reviewed and no addt'l complaints, except as do cumented Hematologic/Lymphatic Hematologic/Lymphatic: Denies anemia, easy bleeding, easy bruising or lymphadenopathy Allergic/Immunologic Allergic/Immunologic: Denies systems reviewed and no addt'l complaints, except as documented Lab / Micro Data Result Diagrams: 08/01/21 05:02 08/01/21 05:02 Labs: Laboratory Results - last 24 hr 07/31/21 14:15: Iron 19 L, TIBC 454 H, Iron Saturation 4.2 L, Ferritin 17 07/31/21 20:26: POC Glucose 107 H 08/01/21 05:02: WBC 6.9, RBC 3.50 L, Hgb 7.7 L, Hct 30.2 L, MCV 86.3, MCH 22.0 L , MCHC 25.5 L, RDW Std Deviation 61.2 H, RDW Coeff of Amirah 19.3 H, Plt Count 317, MPV 10.3, Immature Gran % (Auto) 0.300, Neut % (Auto) 62.6, Lymph % (Auto) 17.7 L, [place] % (Auto) 14.6 H, Eos % (Auto) 3.8, Baso % (Auto) 1.0, Absolute Neuts (auto) 4.3, Absolute Lymphs (auto) 1.22, Nucleated RBC % 0 08/01/21 05:02: Sodium 137, Potassium 3.7, Chloride 94 L, Carbon Dioxide 41.0 H, Anion Gap 2 L, BUN 36 H, Creatinine 1.33 H, Estim Creat Clear Calc 44.81, Est GFR (MDRD) Af Amer 52 L, Est GFR (MDRD) Non-Af 43 L, BUN/Creatinine Ratio 27.1 H , Glucose 103, Calcium 9.1, Total Bilirubin 0.70, AST 20, ALT 19, Alkaline Phosphatase 189 H, Total Protein 8.8 H, Albumin 2.9 L, Globulin 5.9 H, Albumin/Globulin Ratio 0.5 L 08/01/21 06:47: POC Glucose 95 08/01/21 11:42: POC Glucose 107 H 08/01/21 16:43: POC Glucose 87 Radiology Impression Chest X-Ray 08/01/21 07:52 IMPRESSION: Cardiomegaly with diffuse interstitial pattern compatible with mild interstitial edema/congestive failure. Follow-up chest imaging to resolution recommended. No acute or emergent finding. Electronically Signed: Edilberto Bustillos MD at 13:22 EDT , Charges/Coding Visit Charges Inpatient E&M: 14938 Init Hosp L2
[2021-08-01] MEDS: 0.9% Saline Lock 10 ML Syringe IV (21:02)
[2021-08-01] MEDS: Insulin Lispro 100 UNIT/ML INSULN.PEN SC (21:08)
[2021-08-01] MEDS: Insulin Glargine-YFGN 100 UNIT/ML Pen 65 UNIT SC (21:08)
[2021-08-01 22:05] LABS: Bedside Glucose 193 mg/dL (74-106)
[2021-08-01] MEDS: LORazepam 1 MG Tablet PO (22:54)
[2021-08-02] VITALS (20 sets, daily range): BP systolic 94–151; BP diastolic 46–70; PULSE 62–76; RESP 14–20; TEMP 36.6–37.1; O2SAT 92–98; BMI 72.1
--- NOTE | 2021-08-02 | IMM_PTH ---
PATIENT: MEGGAN ARITA LOC: [facility] U#:[id number] AGE/SX: 60/F ROOM: [facility] RE07/31/[address]: Dr. Logan Garcia MD : 1960 BED: 1 DIS: 08/16/2021 SPEC #: [id number] RECD: 08/03/21 11:41 STATUS: DOUG REJose #: [id number] VARSHA: 08/02/21 00:[address]: Rajeev Ulrich DEPT: IMMUNOHISTOCHEMISTRY RECD BY: Kirsty Jacobs ENTERED: 08/03/21 11:42 SP TYPE: IMMUNO OTHR DR: MD Dr. Henry Gillis, DO Dr. Silvia Goldstein Dr., MD Dr. Nana Yaa Koram, MD Dr. Prakash Chand, MD Christina Muller, SUPERVISING EDITOR NEWS REEL-C Tissues: Esophageal mucous membrane Procedures: P53 (initial) KI-67 (add) PHYSICIAN & [place] [id number] SPECIMEN INFORMATION: Tissue Source: Distal esophagus biopsy Clinical Info: Iron deficiency anemia Specimen Number: [id number] CPT code: 64017, 46041 METHODOLOGY: Deparaffinized sections of prefer/formalin-fixed tissue or PAP/DQ stained slides are incubated with monoclonal/polyclonal antibodies/oligonucleotide probes. Localization is made via biotin free immunoperoxidase method. Appropriate controls are performed and reacted as expected. Results on target cell population are indicated in the following table: RESULTS: ANTIBODY / CLONE RESULT P53 (DO-7) negative Ki-67 (30-9) positive, very low These tests were developed and their performance characteristics determined by [facility]. They may not have been cleared or approved by the U.S. Food and Drug Administration. The FDA has determined that such clearance or approval is not necessary. The above immunohistochemical/dualISH markers are ordered and reviewed by the Pathologist. INTERPRETATION: Distal esophagus, biopsy: Negative for dysplasia. SANTOSH:alexy 08/06/2021
--- NOTE | 2021-08-02 05:55 | EKG12_ITS ---
Test Reason : AM EKG Blood Pressure : / mmHG Vent. Rate : 068 BPM Atrial Rate : 068 BPM P-R Int : 176 ms QRS Dur : 106 ms QT Int : 426 ms P-R-T Axes : 062 -68 073 degrees QTc Int : 452 ms Normal sinus rhythm Left anterior fascicular block Poor R wave progression Abnormal ECG Confirmed by CARMEL HANKINS, RJ ([id number]), film and video editor KANIKA SWEENEY ([id number]) on 08/06/2021 7:27:03 AM Referred By: HARISH Confirmed By:RJ BURT MD
[2021-08-02 06:42] LABS: Absolute Lymphocyte Count 1.18 X10^3/uL (0.83-4.51); Absolute Neutrophil Count 4.4 X10^3/uL (2.0-7.7); Basophil# 0.04 X10^3/uL; Basophil% 0.6 % (0-1); Eosinophil# 0.28 X10^3/uL; Eosinophils% 3.9 % (0-5); Hematocrit 29.7 % (37-47); Hemoglobin 7.5 g/dL (12.0-15.0); Lymphocyte # 1.18 X10^3/ul (0.83-4.51); Lymphocyte % 16.5 % (19-41); Mean Corp Hgb Conc 25.3 g/dL (32-36); Mean Corpuscular Hgb 22.3 pg (27.0-32.0); Mean Corpuscular Volume 88.4 fL (81-99); Mean Platelet Vol. 10.1 fl (6.2-12.0); Monocyte# 1.27 X10^3/uL; Monocyte% 17.7 % (0-10); NRBC Flagged by Analyzer 0.3 % (0-5); Neutrophil # 4.36 X10^3/uL (2.7-7.7); Neutrophil % 60.9 % (47-70); Platelet Count 307 K/mm3 (150-450); RBC Distribution Width CV 18.9 % (11.6-14.6); RBC Distribution Width SD 60.9 fl (35.1-43.9); Red Blood Count 3.36 M/mm3 (4.2-5.4); White Blood Count 7.2 K/mm3 (4.4-11.0)
[2021-08-02 06:45] LABS: Bedside Glucose 97 mg/dL (74-106)
[2021-08-02 07:03] LABS: International Normalized Ratio 1.2; Prothrombin Time (Protime)PT. 15.1 SECONDS (11.7-14.9)
[2021-08-02 07:04] LABS: Partial Thromboplast Time 33.4 Seconds (24.1-36.2)
[2021-08-02 07:05] LABS: Anion Gap 2 (5-15); BUN 37 mg/dL (7-18); BUN/Creat Ratio 21.6 RATIO (10-20); Calcium,Total 8.7 mg/dL (8.5-10.1); Chloride 94 mmol/L (98-107); Creatinine, Serum 1.71 mg/dL (0.55-1.02); EST Glomerular Filtration Rate 32 mL/min (>60); Est Glom Filt Rate - Afr Amer 39 mL/min (>60); Estimated Creatinine Clearance 34.85 ml/min; Glucose 88 mg/dL (74-106); Sodium Level 137 mmol/L (136-145)
--- NOTE | 2021-08-02 07:45 | PN.CC_ITS ---
Assessment & Plan Assessment/Plan (1) Obesity hypoventilation syndrome: (2) Obesity due to excess calories with serious comorbidity: (3) Asthma: QUALIFIERS: Asthma severity: mild intermittent (4) Iron deficiency anemia: PLAN: RECOMMENDATIONS: 1. AVAPS with any sleep 2. Limit narcotics and benzodiazepines 3. Outpatient complete PFT, sleep study and walking oximetry 4. Anemia therapy per hospitalist 5. Agree with GI work-up 6. Please use BiPAP perioperatively to avoid significant hypoxia and CO2 retention IMPRESSIONS: 1. Probable obesity hypoventilation syndrome Technically, patient does have a significantly elevated AA gradient. Cannot exclude an element of atelectasis given body habitus. However, CO2 retention is highly suggestive of hypoventilation. Patient was noted to have a negative tox screen on presentation. Patient does have a significantly elevated, but compensated carbon dioxide indicating probable obesity hypoventilation syndrome. This could be a natural progression from patient's previous HONEY. Patient reportedly has CPAP at baseline. This would not be an adequate therapy for hypoventilation. Patient will need an outpatient polysomnogram and titration for NIV versus BiPAP therapy. Patient appears to have responded well to BiPAP therapy. Patient would need to continue this for several weeks prior to reassessing carbon dioxide. 2. Iron deficiency anemia Unclear etiology. Family unable to provide much information about the patient's bowel habits. GI has recommended EGD and iron supplementation has been ordered. I believe this is appropriate. This would complicate respiratory mechanics and need for supplemental oxygen. Patient should use her BiPAP around the procedure given the need for sedation and potential narcotics. 3. Acute kidney injury Slightly worse. Patient usually follows with [facility]. Patient appears to be slightly dry clinically. Gentle hydration has been ordered. Trend creatinine, but previously was less than 1 in 2016. No indication for renal replacement therapy at this time. Excessive bicarbonate secondary to #1, not diuretics in my opinion. 4. Super morbid obesity/type 2 diabetes mellitus/chronic iron deficiency anemia/hypertension/CHF/history of asthma Complicates care, management, recovery and prognosis. Clinical assessment is significantly limited given body habitus. Do not believe patient is in an exacerbation of asthma at this time. Would not recommend systemic steroids as this could be complicating diabetic management. Subjective Subjective Patient actually did very well over the last 24 hours. Patient has worn her BiPAP for over 12 hours in the last 24. Patient is much more interactive this morning and able to hold a conversation. Patient did have questions about her planned EGD. Patient denied any chest pain, nausea or vomiting. No cough is been reported. No significant epistaxis noted. Objective Data Objective Data Vital Signs: Vital Signs Temp Pulse Resp BP Pulse Ox 36.6 C 69 16 128/69 H 95 08/02/21 06:31 08/02/21 07:00 08/02/21 06:31 08/02/21 06:31 08/02/21 06:31 Oxygen Flow Rate (L/min) 3 Oxygen Delivery Method Nasal Cannula Weight: 215 kg Body Mass Index (BMI) 72.1 Intake & Output: Intake and Output for Last 24 Hours 07/31/21 08/01/21 08/02/21 23:59 23:59 23:59 Intake Total 0 / 0 850 / 850 Output Total 1200 / 1200 100 / 100 Balance 0 / 0 -350 / -350 -100 / -100 Lab / Micro Data Result Diagrams: 08/02/21 05:55 08/02/21 05:55 Labs: Laboratory Results - last 24 hr 08/01/21 11:42: POC Glucose 107 H 08/01/21 16:43: POC Glucose 87 08/01/21 20:55: POC Glucose 193 H 08/02/21 05:55: WBC 7.2, RBC 3.36 L, Hgb 7.5 L, Hct 29.7 L, MCV 88.4, MCH 22.3 L , MCHC 25.3 L, RDW Std Deviation 60.9 H, RDW Coeff of Amirah 18.9 H, Plt Count 307, MPV 10.1, Immature Gran % (Auto) 0.400, Neut % (Auto) 60.9, Lymph % (Auto) 16.5 L, [place] % (Auto) 17.7 H, Eos % (Auto) 3.9, Baso % (Auto) 0.6, Absolute Neuts (auto) 4.4, Absolute Lymphs (auto) 1.18, Nucleated RBC % 0.3 08/02/21 05:55: Sodium 137, Potassium 4.0, Chloride 94 L, Carbon Dioxide 41.0 H, Anion Gap 2 L, BUN 37 H, Creatinine 1.71 H, Estim Creat Clear Calc 34.85, Est GFR (MDRD) Af Amer 39 L, Est GFR (MDRD) Non-Af 32 L, BUN/Creatinine Ratio 21.6 H , Glucose 88, Calcium 8.7 08/02/21 05:55: PT 15.1 H, INR 1.2, APTT 33.4 08/02/21 06:28: POC Glucose 97 Micro: Microbiology 08/01/21 19:01 Stool Stool Occult Blood (CORINNE) - Final Radiography Diagnostic Testing: Radiology Impression Chest X-Ray 08/01/21 07:52 IMPRESSION: Cardiomegaly with diffuse interstitial pattern compatible with mild interstitial edema/congestive failure. Follow-up chest imaging to resolution recommended. No acute or emergent finding. Electronically Signed: Edilberto Bustillos MD at 13:22 EDT , Physical Exam Const no apparent distress Constitutional Narrative: super morbid obesity General Appearance: cooperative; Negative for on BiPAP Orientation / Consciousness: awake, oriented to person, oriented to place and oriented to time Nutritional Appearance: morbidly obese HEENT normocephalic, head/scalp atraumatic, hearing grossly normal bilaterally and moist oral mucous membranes Eyes PERRL, EOMs intact bilaterally and conjunctivae normal Neck no lymphadenopathy and supple Resp normal respiratory effort, no retractions, no use of accessory muscles and clear to auscultation bilaterally Resp Narrative: on 3L of oxygen; diminished breath sounds bibasally Cardio regular rate, regular rhythm, S1 normal heart sound, S2 normal heart sound and no murmurs GI normal to inspection, nondistended, normoactive bowel sounds, soft to palpation, non-tender, non-distended and hepatosplenomegaly Extremity normal to inspection and full ROM General Extremity: edema; Negative for clubbing or cyanosis Peripheral Pulses: Yes pulses 2+ throughout Skin no rashes or lesions noted Neuro oriented x3, CN's II-XII intact bilaterally and no focal motor deficits Sensorium / Orientation: awake and alert Motor Exam: strength 5/5 throughout Psych affect normal Charges/Coding Visit Charges Inpatient E&M: 46404 Subs Hosp L3
[2021-08-02] MEDS: Acetaminophen 325 MG Tablet 650 MG PO ×2 (08:06→14:07)
[2021-08-02] MEDS: 0.9% Normal Saline 1,000 ML 60 ML IV (08:07)
[2021-08-02 08:34] LABS: Hemoglobin A1c 6.5 % (3.8-5.6)
--- NOTE | 2021-08-02 09:30 | CASEMGMT ---
SHELBY CM: Call received from Dasha, protective services case worker from [employer]. Dasha states that pt currently uses [facility] for her O2/CPAP supplies. [facility] is no longer in network with [facility]. [facility] is in network. Dasha reports to have spoken with the pt and her son this AM via phone and explained this to them. Dasha also states that [facility] is in-network but not the hospital. States that pt has emergency benefits and her stay at [facility] will be covered as along as she meets medical necessity. Dasha is faxing resources including in-network providers for wound care supplies and home health agencies. Dasha remains available at to assist with any determined discharge needs. Buddy Neal RN CM
[2021-08-02 10:16] LABS: Bedside Glucose 67 mg/dL (74-106)
[2021-08-02] MEDS: Dextrose 10%-Water 250 ML 999 ML IV (11:02)
--- NOTE | 2021-08-02 11:30 | EGD_PTH ---
PATIENT: MEGGAN ARITA LOC: [facility] U#:[id number] AGE/SX: 60/F ROOM: [facility] RE07/31/[address]: Dr. Logan Garcia MD : 1960 BED: 1 DIS: 08/16/2021 SPEC #: [id number] RECD: 08/02/21 12:23 STATUS: DOUG REJose #: [id number] VARSHA: 08/02/21 11:[address]: Rajeev Ulrich DEPT: SURGICAL PATHOLOGY RECD BY: Tamia Mcdowell ENTERED: 08/02/21 13:16 SP TYPE: EGD BIOPSY OTHR DR: MD Dr. Henry Gillis, DO Dr. Genesis Garcia, MD Dr. Maribel Sanchez Dr., MD Christina Muller, COUPLES THERAPIST-C Tissues: Esophagus, NOS Procedures: Special Stain Group II Surgery Specimen Level IV Alcian Blue/PAS (control) Comments: @ Ordering doctor for LAUREN edited from to @ by ACACIA at 08/02/21 1351 @ Submitting doctor edited from to @ by ACACIA at 08/02/21 1351 HEADER OPERATION: EGD ([employer]) PRE-OP DIAGNOSIS: Iron deficiency anemia TISSUE SUBMITTED: Distal esophagus biopsy MICROSCOPIC DIAGNOSIS Distal esophagus, biopsy: Fragments of gastroesophageal mucosa with focal intestinal metaplasia (goblet cell metaplasia), 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 Moderate chronic inflammation. Negative for dysplasia. See comment. SJ:alexy 08/03/2021 COMMENT Alcian blue/PAS stain with matched control is used in the evaluation of the specimen. Immunohistochemistry ([id number]) for P53 and Ki-67 will be performed and results will be reported separately. MICROSCOPIC DESCRIPTION Slides are reviewed. GROSS DESCRIPTION Received in fixative is one container labeled with the patient's name and designated distal esophagus biopsy. The specimen consists of multiple irregular fragments of light leon soft tissue that in aggregate measure 0.5 x 0.5 x 0.1 cm. The specimen is totally submitted in one cassette. / SANTOSH:alexy 08/02/2021 TC:3 CPT: 26019, 99735
--- NOTE | 2021-08-02 12:05 | OP.EGD_ITS ---
Patient Name: Lilliana Null Procedure Date: 08/02/2021 11:38 AM Date of : 1960 Age: 60 Procedure: Upper GI endoscopy Indications: Iron deficiency anemia Providers: Rajeev Ulrich DO Medicines: Monitored Anesthesia Care Patient Profile: This is a 60 year old female. Refer to note in patient chart for documentation of history and physical. Patient has symptoms. Complications: No immediate complications. Procedure: Pre-Anesthesia Assessment: - Prior to the procedure, a History and Physical was performed, and patient medications and allergies were reviewed. The patient is competent. The risks and benefits of the procedure and the sedation options and risks were discussed with the patient. All questions were answered and informed consent was obtained. Patient identification and proposed procedure were verified by the physician in the pre-procedure area. Mental Status Examination: alert and oriented. Airway Examination: normal oropharyngeal airway and neck mobility. Respiratory Examination: clear to auscultation. CV Examination: normal. Prophylactic Antibiotics: The patient does not require prophylactic antibiotics. Prior Anticoagulants: The patient has taken no previous anticoagulant or antiplatelet agents. ASA Grade Assessment: II - A patient with mild systemic disease. After reviewing the risks and benefits, the patient was deemed in satisfactory condition to undergo the procedure. The anesthesia plan was to use moderate sedation / analgesia (conscious sedation). Immediately prior to administration of medications, the patient was re-assessed for adequacy to receive sedatives. The heart rate, respiratory rate, oxygen saturations, blood pressure, adequacy of pulmonary ventilation, and response to care were monitored throughout the procedure. The physical status of the patient was re-assessed after the procedure. After obtaining informed consent, the endoscope was passed under direct vision. Throughout the procedure, the patient's blood pressure, pulse, and oxygen saturations were monitored continuously. The Endoscope was introduced through the mouth, and advanced to the second part of duodenum. The upper GI endoscopy was accomplished without difficulty. The patient tolerated the procedure well. Scope In: 11:49:31 AM Scope Out: 11:56:42 AM Total Procedure Duration Time 0 hours 7 minutes 11 seconds Findings: The Z-line was irregular and was found 36 cm from the incisors. Biopsies were taken with a cold forceps for histology. Verification of patient identification for the specimen was done. Estimated blood loss was minimal. Diffuse moderate inflammation characterized by congestion (edema), erythema and friability was found in the entire examined stomach. The third portion of the duodenum was normal. Impression: - Z-line irregular, 36 cm from the incisors. Biopsied. - Chronic gastritis. - Normal third portion of the duodenum. Recommendation: - [facility]. - Resume previous diet. - Continue present medications. Procedure Code(s): --- Professional --- 01681, Esophagogastroduodenoscopy, flexible, transoral; with biopsy, single or multiple CPT copyright 2017 [employer]. All rights reserved. The codes documented in this report are preliminary and upon pairer substandard review may be revised to meet current compliance requirements. Rajeev Ulrich DO 08/02/2021 12:04:24 PM This report has been signed electronically. Number of Addenda: 1 Note Initiated On: 08/02/2021 11:38 AM Addendum Number: 1 Addendum Date: 11/27/2021 6:27:32 AM MAC was used as sedation for this procedure. Rajeev Ulrich DO 11/27/2021 6:27:36 AM This report has been signed electronically.
--- NOTE | 2021-08-02 12:05 | OP.CCLET_ITS ---
11/27/2021 Silvia Tolbert [address] [place] [address] Re : Upper GI endoscopy procedure for Lilliana Null Dear Dr. Tolbert This procedure was performed on July. My impressions and recommendations are as follows: Impressions : - Z-line irregular, 36 cm from the incisors. Biopsied. - Chronic gastritis. - Normal third portion of the duodenum. Recommendations : - [facility]. - Resume previous diet. - Continue present medications. My findings are described in the full procedure note, which is enclosed. If I can be of further assistance, please feel free to contact me at . Sincerely, Rajeev Ulrich, 08/02/2021 12:04:24 PM This report has been signed electronically.
--- NOTE | 2021-08-02 13:00 | WOUNDNOTE ---
wound photo: left upper medial thigh
[2021-08-02] MEDS: Sertraline 100 MG Tablet PO (13:09)
[2021-08-02] MEDS: Enoxaparin 40 MG/0.4 ML Syringe SC (13:09)
[2021-08-02] MEDS: Magnesium Chloride 64 MG Delay Rel.Tablet 128 MG PO (13:09)
[2021-08-02 15:26] LABS: Bedside Glucose 113 mg/dL (74-106)
--- NOTE | 2021-08-02 15:36 | PN.HOSP_ITS ---
Subjective Subjective Patient states she slept well last night with the BiPAP and felt better this morning after having worn it all night. She did poorly with therapy and required max assist of 4 to get out of bed. EGD was performed and showed no significant findings. I did discuss the case with Dr. Ulrich from gastroenterology and he recommends an outpatient colonoscopy and a capsule endoscopy if that is negative. I discussed the fact that the patient would likely need to go to a skilled facility at discharge and she is somewhat resistant to this however her sister is at bedside and is quite encouraging. It sounds as if she has been fairly immobile especially over the last week and 1/2 to 2 weeks at home and has lost quite a bit of function. Objective Data Objective Data Vital Signs: Vital Signs Temp Pulse Resp BP Pulse Ox 97.9 F 69 14 122/47 H 92 08/02/21 13:07 08/02/21 15:00 08/02/21 13:07 08/02/21 13:07 08/02/21 13:07 Oxygen Flow Rate (L/min) 3 Oxygen Delivery Method Nasal Cannula Weight: 215 kg Body Mass Index (BMI) 72.1 Intake & Output: Intake and Output for Last 24 Hours 07/31/21 08/01/21 08/02/21 23:59 23:59 23:59 Intake Total 0 / 0 850 / 850 360 / 360 Output Total 1200 / 1200 100 / 100 Balance 0 / 0 -350 / -350 260 / 260 Lab / Micro Data Result Diagrams: 08/02/21 05:55 08/02/21 05:55 Labs: Laboratory Results - last 24 hr 08/01/21 16:43: POC Glucose 87 08/01/21 20:55: POC Glucose 193 H 08/02/21 05:55: WBC 7.2, RBC 3.36 L, Hgb 7.5 L, Hct 29.7 L, MCV 88.4, MCH 22.3 L , MCHC 25.3 L, RDW Std Deviation 60.9 H, RDW Coeff of Amirah 18.9 H, Plt Count 307, MPV 10.1, Immature Gran % (Auto) 0.400, Neut % (Auto) 60.9, Lymph % (Auto) 16.5 L, [place] % (Auto) 17.7 H, Eos % (Auto) 3.9, Baso % (Auto) 0.6, Absolute Neuts (auto) 4.4, Absolute Lymphs (auto) 1.18, Nucleated RBC % 0.3 08/02/21 05:55: Sodium 137, Potassium 4.0, Chloride 94 L, Carbon Dioxide 41.0 H, Anion Gap 2 L, BUN 37 H, Creatinine 1.71 H, Estim Creat Clear Calc 34.85, Est GFR (MDRD) Af Amer 39 L, Est GFR (MDRD) Non-Af 32 L, BUN/Creatinine Ratio 21.6 H , Glucose 88, Calcium 8.7 08/02/21 05:55: PT 15.1 H, INR 1.2, APTT 33.4 08/02/21 05:55: Hemoglobin A1c 6.5 H 08/02/21 06:28: POC Glucose 97 08/02/21 10:09: POC Glucose 67 L 08/02/21 15:19: POC Glucose 113 H Micro: Microbiology 08/01/21 19:01 Stool Stool Occult Blood (CORINNE) - Final Physical Exam Const alert, oriented x3 and no apparent distress Constitutional Narrative: Super morbidly obese -[place] female lying in bed with her sister at the bedside, patient appears comfortable nontoxic, watching television General Appearance: cooperative, comfortable and well developed Orientation / Consciousness: lethargic Exam Limitations: no limitations Nutritional Appearance: morbidly obese HEENT normocephalic, head/scalp atraumatic, hearing grossly normal bilaterally and m oist oral mucous membranes Resp normal respiratory effort, no retractions, no use of accessory muscles and clear to auscultation bilaterally Resp Narrative: Distant secondary to body habitus but no adventitious sounds noted Auscultation: Negative for crackles, rales, rhonchi or wheezes Cardio regular rate, regular rhythm, S1 normal heart sound, S2 normal heart sound, no murmurs, no rub, no gallops, no clicks and no JVD GI normal to inspection, nondistended, normoactive bowel sounds, soft to palpation, non-tender, non-distended and hepatosplenomegaly GI Narrative: Large pannus Extremity Extremity Narrative: Lower extremity with changes consistent with chronic venous stasis, skin is thick and hyperkeratotic, chronic edema at 1-2+ noted-pitting in nature, no cyanosis or clubbing, few scattered wounds noted on bilateral lower extremities right greater than left Neuro oriented x3, CN's II-XII intact bilaterally, moves all extremities and no focal motor deficits Neuro Narrative: Generalized weakness but no focal deficits Sensorium / Orientation: awake and alert Speech: speech normal Psych Psych Narrative: Affect is somewhat flat today and patient is tearful at times and we discussed her needing to go to a facility at discharge Assessment & Plan Assessment/Plan (1) Iron deficiency anemia: (2) Obesity hypoventilation syndrome: (3) Obesity due to excess calories with serious comorbidity: (4) Weakness: (5) Elevated serum creatinine: PLAN: Iron deficiency anemia -Hemoglobin stable this morning at 7.5 -Hemoglobins were running in the 9-10 range in 2016 -I have no data in between these time frames -Iron studies show marked iron deficiency -Has received 2 of 3 iron infusions -Stop IV Protonix and switch back to oral -EGD done today and showed chronic gastritis with an irregular [id number] taken -Will need outpatient colonoscopy and then capsule endoscopy if that is negative -Patient has known history of H. pylori gastritis -She denies any hematemesis/coffee-ground emesis/hematochezia/melena -Patient no longer has menses Chronic hypoxic and hypercapnic respiratory failure secondary to obesity hypoventilation syndrome/HONEY -AA gradient is significantly elevated -Patient with what appears to be chronic CO2 retention and a baseline CO2 from 60-70 -Demonstrates compensation with an elevated serum bicarb -Patient has been noncompliant with CPAP previously and wears only oxygen at night -AVAPS while here -We will need outpatient polysomnography -Pulmonary medicine is following and has had an extensive discussion with the family -Minimize narcotics and benzodiazepines as able Mild dysphagia -Patient was seen by speech therapy given some aspiration while more somnolent -Diet recommendations are for food to be cut to bite-size with food and drink only if fully alert and one-to-one supervision for now -Continue speech therapy LORNE -Patient with previous baseline serum creatinine less than 1 in 2016 -Serum creatinine up to 1.77 today -Serum creatinine here has been in the 1.3-1.4 range -This may be her new baseline -We will continue to hold losartan and diuretics -Patient clinically appears slightly dry--> given bump in creatinine despite holding diuretics and Lasix we will add IV fluids x1 L -Reevaluate serum creatinine in the morning -If remains elevated may need to consider further work-up -Repeat BMP in a.m. Debility -Patient is markedly weak on exam however no focal deficits are noted -Recommend continued PT and OT -Have recommended skilled facility at discharge for continued therapy--> patient is somewhat resistant to this--> ongoing conversations DM-2 -Hemoglobin A1c is 6.5 -Blood sugar was only 67 this morning -Continue basal insulin decreased from 65-55 given lower blood sugar on fasting BMP this morning -Continue sliding scale Hypertension -Hold home losartan/metolazone/Lasix -Pressures are stable despite holding home medication -As needed hydralazine Asthma -Continue as needed albuterol Depression/anxiety -Continue home sertraline -Use Ativan sparingly Chronic pain -Minimize oxycodone use -As needed Tylenol DVT prophylaxis -Continue Lovenox CODE STATUS -full code Charges/Coding Visit Charges Inpatient E&M: 12156 Subs Hosp L2
--- NOTE | 2021-08-02 16:22 | CASEMGMT ---
CHRISTINA was informed patient will need placement in a prison facility short term. CHRISTINA is not familiar with patient's insurance so SW called the insurance company's case management Dept. CHRISTINA spoke with Adebayo. Adebayo faxed CHRISTINA a list of prison facilities and a few acute rehab units that take patient's insurance. CHRISTINA met with patient and her sister Fiona. CHRISTINA introduced self and role at [facility]. CHRISTINA explained that SW called patient's insurance and obtained a list of facilities. SW gave patient's sister the list. Patient was upset and tearful as there are no facilities closer than [place]. SW also explained that some facilities also have weight limits so that might be a problem we run into. Both verbalized understanding. CHRISTINA told them that CHRISTINA will check back with them tomorrow. Toya SIERRA
[2021-08-02 18:16] LABS: Bedside Glucose 76 mg/dL (74-106)
[2021-08-02] MEDS: 0.9% Saline Lock 10 ML Syringe IV (18:35)
[2021-08-02] MEDS: Pantoprazole Sodium 40 MG Tablet PO (21:21)
[2021-08-02 22:10] LABS: Bedside Glucose 98 mg/dL (74-106)
[2021-08-03] VITALS (15 sets, daily range): BP systolic 121–149; BP diastolic 60–74; PULSE 70–78; RESP 14–18; TEMP 36.4–37.1; O2SAT 93–97
[2021-08-03] MEDS: LORazepam 1 MG Tablet PO ×2 (00:56→23:28)
[2021-08-03 06:12] LABS: Absolute Neutrophil Count 5.3 X10^3/uL (2.0-7.7); Basophil# 0.04 X10^3/uL; Basophil% 0.5 % (0-1); Eosinophil# 0.23 X10^3/uL; Eosinophils% 2.8 % (0-5); Hematocrit 28.3 % (37-47); Hemoglobin 7.3 g/dL (12.0-15.0); Lymphocyte % 14.7 % (19-41); Mean Corp Hgb Conc 25.8 g/dL (32-36); Mean Corpuscular Hgb 22.2 pg (27.0-32.0); Mean Platelet Vol. 10.2 fl (6.2-12.0); Monocyte# 1.38 X10^3/uL; Monocyte% 16.9 % (0-10); NRBC Flagged by Analyzer 0 % (0-5); Neutrophil # 5.29 X10^3/uL (2.7-7.7); Neutrophil % 64.6 % (47-70); Platelet Count 297 K/mm3 (150-450); RBC Distribution Width CV 19.4 % (11.6-14.6); RBC Distribution Width SD 60.2 fl (35.1-43.9); Red Blood Count 3.29 M/mm3 (4.2-5.4); White Blood Count 8.2 K/mm3 (4.4-11.0)
[2021-08-03 06:41] LABS: Bedside Glucose 79 mg/dL (74-106)
[2021-08-03 06:41] LABS: Anion Gap 0 (5-15); BUN 34 mg/dL (7-18); BUN/Creat Ratio 27.4 RATIO (10-20); Calcium,Total 8.7 mg/dL (8.5-10.1); Chloride 95 mmol/L (98-107); Creatinine, Serum 1.24 mg/dL (0.55-1.02); EST Glomerular Filtration Rate 47 mL/min (>60); Est Glom Filt Rate - Afr Amer 56 mL/min (>60); Estimated Creatinine Clearance 48.06 ml/min; Glucose 76 mg/dL (74-106); Potassium 3.8 mmol/L (3.5-5.1); Sodium Level 136 mmol/L (136-145)
--- NOTE | 2021-08-03 08:08 | PN.HOSP_ITS ---
Subjective Subjective Follow-up for morbid obesity with significant debility, chronic iron deficiency anemia, obesity hypoventilation syndrome. Objective Data Objective Data Vital Signs: Vital Signs Temp Pulse Resp BP Pulse Ox 97.6 F L 72 18 121/60 H 93 08/03/21 03:22 08/03/21 04:00 08/03/21 04:00 08/03/21 03:22 08/03/21 07:25 Oxygen Flow Rate (L/min) 3 Oxygen Delivery Method Nasal Cannula Weight: 473 lb 15.901 oz Body Mass Index (BMI) 72.1 Intake & Output: Intake and Output for Last 24 Hours 08/01/21 08/02/21 08/03/21 23:59 23:59 23:59 Intake Total 850 / 850 1110 / 1110 1000 / 1000 Output Total 1200 / 1200 400 / 400 Balance -350 / -350 710 / 710 1000 / 1000 Lab / Micro Data Result Diagrams: 08/03/21 05:40 08/03/21 05:40 Labs: Laboratory Results - last 24 hr 08/02/21 05:55: Hemoglobin A1c 6.5 H 08/02/21 10:09: POC Glucose 67 L 08/02/21 15:19: POC Glucose 113 H 08/02/21 18:07: POC Glucose 76 08/02/21 21:19: POC Glucose 98 08/03/21 05:40: WBC 8.2, RBC 3.29 L, Hgb 7.3 L, Hct 28.3 L, MCV 86.0, MCH 22.2 L , MCHC 25.8 L, RDW Std Deviation 60.2 H, RDW Coeff of Amirah 19.4 H, Plt Count 297, MPV 10.2, Immature Gran % (Auto) 0.500, Neut % (Auto) 64.6, Lymph % (Auto) 14.7 L, [place] % (Auto) 16.9 H, Eos % (Auto) 2.8, Baso % (Auto) 0.5, Absolute Neuts (auto) 5.3, Absolute Lymphs (auto) 1.20, Nucleated RBC % 0 08/03/21 05:40: Sodium 136, Potassium 3.8, Chloride 95 L, Carbon Dioxide 41.0 H, Anion Gap 0 L, BUN 34 H, Creatinine 1.24 H, Estim Creat Clear Calc 48.06, Est GFR (MDRD) Af Amer 56 L, Est GFR (MDRD) Non-Af 47 L, BUN/Creatinine Ratio 27.4 H , Glucose 76, Calcium 8.7 08/03/21 06:35: POC Glucose 79 Micro: Microbiology 08/01/21 19:01 Stool Stool Occult Blood (CORINNE) - Final Physical Exam Narrative Patient is morbidly obese. Talked to the son near the bedside. Low hemoglobin 7.3. Patient could not get out of the bed or turn around the bed. On foam overlay bed Physical exam General: Alert, Oriented x3, Cooperative, morbid obesity BMI 72.1 kg/min risk HEENT: Atraumatic, PERRLA, EOMI, Normocephalic Oral: No Gingival or Mucosal Lesions/ Ulcerations Neck: Supple, No JVD, Negative Carotid Bruits Lungs: Air entry diminished in bilateral lung bases. No crepitation/rhonchi/wheezing Cardiovascular: Regular rate, Regular Rhythm, Normal S1, Normal S2, systolic murmur LLSB Abdomen: Bowel Sounds Present, Soft, Non Tender, Non-Distended : No renal angle tenderness. No suprapubic tenderness. Extremities: Bilateral lower extremity nonpitting edema, lymphedema with thickened skin and subcutaneous tissue, Capillary Refill Less than 3 Seconds Skin: Dry skin, venous hypertension. Panniculi Musculoskeletal: No Tenderness to Palpation of Joints or Extremities. ROM severely restricted. Neurological: Cranial nerves II-XII grossly intact, DTR 2+/4 and Symmetrical, Neuro grossly intact Psych/Mental Status: Flat affect. Assessment & Plan Assessment/Plan (1) Iron deficiency anemia: (2) Obesity hypoventilation syndrome: (3) Obesity due to excess calories with serious comorbidity: (4) Weakness: (5) Elevated serum creatinine: PLAN: 1. Acute on chronic iron deficiency anemia: Hemoglobin dropped to 7.3 from 7.6. Patient had 12 mg of IV iron infusion. Patient hemoglobin was between 9 to 10 g in 2016. On PPI -EGD done on 08/02 and showed chronic gastritis with an irregular [id number] taken -Will need outpatient colonoscopy and then capsule endoscopy if that is negative -Patient has known history of H. pylori gastritis -She denies any hematemesis/coffee-ground emesis/hematochezia/melena -Patient no longer has menses 2. Chronic hypoxic and hypercapnic respiratory failure secondary to obesity hypoventilation syndrome/HONEY -AA gradient is significantly elevated -Patient with what appears to be chronic CO2 retention and a baseline CO2 from 60-70 -Demonstrates compensation with an elevated serum bicarb -Patient has been noncompliant with CPAP previously and wears only oxygen at night -AVAPS while here -We will need outpatient polysomnography -Pulmonary medicine is following and has had an extensive discussion with the family -Minimize narcotics and benzodiazepines as able 3. Mild dysphagia -Patient was seen by speech therapy given some aspiration while more somnolent -Diet recommendations are for food to be cut to bite-size with food and drink only if fully alert and one-to-one supervision for now -Continue speech therapy LORNE -Patient with previous baseline serum creatinine less than 1 in 2016. Creatinine went up to 1.71. On 08/03 creatinine 1.24. l continue to hold losartan and diuretics. Monitor kidney function electrolytes - Debility -Patient is markedly weak on exam however no focal deficits are noted -Recommend continued PT and OT -Have recommended skilled facility at discharge for continued therapy--> patient is somewhat resistant to this--> ongoing conversations DM-2 -Hemoglobin A1c is 6.5 -Blood sugar was only 67 this morning -Continue basal insulin decreased from 65-55 given lower blood sugar on fasting BMP this morning -Continue sliding scale Hypertension -Hold home losartan/metolazone/Lasix -Pressures are stable despite holding home medication -As needed hydralazine Asthma -Continue as needed albuterol Depression/anxiety -Continue home sertraline -Use Ativan sparingly Chronic pain -Minimize oxycodone use -As needed Tylenol DVT prophylaxis Hemoglobin dropped to 7.3. Hold Lovenox. CODE STATUS -full code Charges/Coding Visit Charges Inpatient E&M: 82557 Subs Hosp L2
--- NOTE | 2021-08-03 08:49 | PCM.PN.INT ---
Assessment & Plan Assessment/Plan (1) Obesity hypoventilation syndrome: (2) Obesity due to excess calories with serious comorbidity: (3) Asthma: QUALIFIERS: Asthma severity: mild intermittent (4) Iron deficiency anemia: PLAN: RECOMMENDATIONS: 1. AVAPS with any sleep 2. Limit narcotics and benzodiazepines 3. Outpatient complete PFT, sleep study and walking oximetry 4. Anemia therapy per hospitalist 5. Agree with GI work-up 6. Please use BiPAP perioperatively to avoid significant hypoxia and CO2 retention 7. Okay to transfer to ECF from my perspective. If discharged home, close follow-up with nurse practitioner versus discharge to sleep study IMPRESSIONS: 1. Probable obesity hypoventilation syndrome Technically, patient does have a significantly elevated AA gradient. Cannot exclude an element of atelectasis given body habitus. However, CO2 retention is highly suggestive of hypoventilation. Patient was noted to have a negative tox screen on presentation. Patient does have a significantly elevated, but compensated carbon dioxide indicating probable obesity hypoventilation syndrome. Patient will need AVAPS versus BiPAP as an outpatient. If patient goes to an ECF, current AVAPS settings can be continued. If patient goes home, close follow-up with nurse practitioner to arrange for sleep study versus discharge to a sleep study would be optimal. Mask fit can be optimized as an outpatient, but patient encouraged to continue with compliance while hospitalized. 2. Iron deficiency anemia Unclear etiology. Family unable to provide much information about the patient's bowel habits. EGD did not show a source. Patient will need an outpatient colonoscopy versus capsule study. Blood counts have improved slightly. This would complicate respiratory mechanics and need for supplemental oxygen. Patient should use her BiPAP around the procedure given the need for sedation and potential narcotics. 3. Acute kidney injury Improving. Patient usually follows with [facility]. Patient appears to be slightly dry clinically. Gentle hydration has been ordered. Trend creatinine, but previously was less than 1 in 2016. No indication for renal replacement therapy at this time. Excessive bicarbonate secondary to #1, not diuretics in my opinion. 4. Super morbid obesity/type 2 diabetes mellitus/chronic iron deficiency anemia/hypertension/CHF/history of asthma Complicates care, management, recovery and prognosis. Clinical assessment is significantly limited given body habitus. Do not believe patient is in an exacerbation of asthma at this time. Would not recommend systemic steroids as this could be complicating diabetic management. Subjective Subjective Patient did well overnight. No acute issues were noted. Patient tolerated EGD well, but no source of bleeding was noted. Patient states that she had difficulty sleeping overnight secondary to mask leak. Patient does admit that she is more awake during the day. Objective Data Objective Data Vital Signs: Vital Signs Temp Pulse Resp BP Pulse Ox 36.4 C L 72 18 121/60 H 93 08/03/21 03:22 08/03/21 04:00 08/03/21 04:00 08/03/21 03:22 08/03/21 07:25 Oxygen Flow Rate (L/min) 3 Oxygen Delivery Method Nasal Cannula Weight: 215 kg Body Mass Index (BMI) 72.1 Intake & Output: Intake and Output for Last 24 Hours 08/01/21 08/02/21 08/03/21 23:59 23:59 23:59 Intake Total 850 / 850 1110 / 1110 1000 / 1000 Output Total 1200 / 1200 400 / 400 Balance -350 / -350 710 / 710 1000 / 1000 Lab / Micro Data Result Diagrams: 08/03/21 05:40 08/03/21 05:40 Labs: Laboratory Results - last 24 hr 08/02/21 10:09: POC Glucose 67 L 08/02/21 15:19: POC Glucose 113 H 08/02/21 18:07: POC Glucose 76 08/02/21 21:19: POC Glucose 98 08/03/21 05:40: WBC 8.2, RBC 3.29 L, Hgb 7.3 L, Hct 28.3 L, MCV 86.0, MCH 22.2 L, MCHC 25.8 L, RDW Std Deviation 60.2 H, RDW Coeff of Amirah 19.4 H, Plt Count 297, MPV 10.2, Immature Gran % (Auto) 0.500, Neut % (Auto) 64.6, Lymph % (Auto) 14.7 L, [place] % (Auto) 16.9 H, Eos % (Auto) 2.8, Baso % (Auto) 0.5, Absolute Neuts (auto) 5.3, Absolute Lymphs (auto) 1.20, Nucleated RBC % 0 08/03/21 05:40: Sodium 136, Potassium 3.8, Chloride 95 L, Carbon Dioxide 41.0 H, Anion Gap 0 L, BUN 34 H, Creatinine 1.24 H, Estim Creat Clear Calc 48.06, Est GFR (MDRD) Af Amer 56 L, Est GFR (MDRD) Non-Af 47 L, BUN/Creatinine Ratio 27.4 H, Glucose 76, Calcium 8.7 08/03/21 06:35: POC Glucose 79 Micro: Microbiology 08/01/21 19:01 Stool Stool Occult Blood (CORINNE) - Final Physical Exam Const no apparent distress Constitutional Narrative: super morbid obesity General Appearance: cooperative; Negative for on BiPAP Orientation / Consciousness: awake, oriented to person, oriented to place and oriented to time Nutritional Appearance: morbidly obese HEENT normocephalic, head/scalp atraumatic, hearing grossly normal bilaterally and moist oral mucous membranes Eyes PERRL, EOMs intact bilaterally and conjunctivae normal Neck no lymphadenopathy and supple Resp normal respiratory effort, no retractions, no use of accessory muscles and clear to auscultation bilaterally Resp Narrative: on 3L of oxygen; diminished breath sounds bibasally Cardio regular rate, regular rhythm, S1 normal heart sound, S2 normal heart sound and no murmurs GI normal to inspection, nondistended, normoactive bowel sounds, soft to palpation, non-tender, non-distended and hepatosplenomegaly Extremity normal to inspection and full ROM General Extremity: edema; Negative for clubbing or cyanosis Peripheral Pulses: Yes pulses 2+ throughout Skin no rashes or lesions noted Neuro oriented x3, CN's II-XII intact bilaterally and no focal motor deficits Sensorium / Orientation: awake and alert Motor Exam: strength 5/5 throughout Psych affect normal Charges/Coding Visit Charges Inpatient E&M: 00604 Subs Hosp L3
[2021-08-03] MEDS: Magnesium Chloride 64 MG Delay Rel.Tablet 128 MG PO (09:37)
[2021-08-03] MEDS: Pantoprazole Sodium 40 MG Tablet PO ×2 (09:37→21:54)
[2021-08-03] MEDS: Sertraline 100 MG Tablet PO (09:38)
--- NOTE | 2021-08-03 09:49 | CASEMGMT ---
SW met with patient and her son Meek. SW introduced self to Meek and SW met with patient yesterday. SW asked about nursing homes. Meek said he has to talk with the family. SW explained patient and family just need to pick 3-4 facilities and SW will make referrals and check on availability. SW let Meek know SW sits up on the unit so they can always ask for SW. Toya Brown TIEING MACHINE OPERATOR MARIELA
[2021-08-03 11:21] LABS: Bedside Glucose 78 mg/dL (74-106)
--- NOTE | 2021-08-03 11:45 | CASEMGMT ---
CHRISTINA went back to patient's room and patient's oldest son Ross was present. CHRISTINA introduced self and role at [facility]. CHRISTINA explained it is being recommended patient go somewhere short term for rehab. CHRISTINA explained with patient's insurance the closest place that takes her insurance is in [place]. Ross said if that is the closest place then that would be the one they want. Ross said they do not want her to go to [place]. Ross also asked about home health. CHRISTINA explained yesterday with therapy it took 4 people to help move her in bed, but once she was up she was minimal assist and took a few steps. CHRISTINA told Ross that we can see how patient does with therapy today and go from there. However, in the meantime [facility] CHRISTINA called [facility] and obtained a fax number for admissions ([phone]). CHRISTINA faxed referral. CHRISTINA did talk with Usha earlier today to ask if they have a weight limit for patients. Usha asked the patient's weight and CHRISTINA told her 473 lbs. Usha did not think that would be a problem. Await response. Toya Brown COUNTY COMMISSIONER ASSORTMENT PLANNER
--- NOTE | 2021-08-03 13:24 | CASEMGMT ---
CHRISTINA called [facility] and left a voice mail for Usha in admissions requesting a return call in regards to referral. Toya SIERRA
--- NOTE | 2021-08-03 14:47 | CASEMGMT ---
CHRISTINA called Usha at [facility] and left her another voice mail requesting a return call. Toya Brown BLEACH BOILER PULLERIsaac SIERRA
--- NOTE | 2021-08-03 15:43 | NURSING ---
BS 68, juice and crackers given.
--- NOTE | 2021-08-03 16:27 | CASEMGMT ---
CHRISTINA still has not heard back from [facility]. CHRISTINA will follow up on Friday. Patient requires insurance authorization prior to d/c to SNF. Toya SIERRA
[2021-08-03 16:31] LABS: Bedside Glucose 68 mg/dL (74-106)
--- NOTE | 2021-08-03 16:43 | PN_ITS ---
Subjective Subjective Patient underwent upper endoscopy yesterday. There were no sources for her chronic iron deficiency anemia. She is tolerating a diet today. Her breathing is a little better. Objective Data Objective Data Vital Signs: Vital Signs Temp Pulse Resp BP Pulse Ox 98.8 F 72 18 142/66 H 97 08/03/21 15:15 08/03/21 15:15 08/03/21 15:15 08/03/21 15:15 08/03/21 15:15 Oxygen Flow Rate (L/min) 3 Oxygen Delivery Method Nasal Cannula Weight: 473 lb 15.901 oz Body Mass Index (BMI) 72.1 Intake & Output: Intake and Output for Last 24 Hours 08/01/21 08/02/21 08/03/21 23:59 23:59 23:59 Intake Total 850 / 850 1110 / 1110 1470 / 1470 Output Total 1200 / 1200 400 / 400 Balance -350 / -350 710 / 710 1470 / 1470 Lab / Micro Data Result Diagrams: 08/03/21 05:40 08/03/21 05:40 Labs: Laboratory Results - last 24 hr 08/02/21 18:07: POC Glucose 76 08/02/21 21:19: POC Glucose 98 08/03/21 05:40: WBC 8.2, RBC 3.29 L, Hgb 7.3 L, Hct 28.3 L, MCV 86.0, MCH 22.2 L , MCHC 25.8 L, RDW Std Deviation 60.2 H, RDW Coeff of Amirah 19.4 H, Plt Count 297, MPV 10.2, Immature Gran % (Auto) 0.500, Neut % (Auto) 64.6, Lymph % (Auto) 14.7 L, Cocke % (Auto) 16.9 H, Eos % (Auto) 2.8, Baso % (Auto) 0.5, Absolute Neuts (auto) 5.3, Absolute Lymphs (auto) 1.20, Nucleated RBC % 0 08/03/21 05:40: Sodium 136, Potassium 3.8, Chloride 95 L, Carbon Dioxide 41.0 H, Anion Gap 0 L, BUN 34 H, Creatinine 1.24 H, Estim Creat Clear Calc 48.06, Est GFR (MDRD) Af Amer 56 L, Est GFR (MDRD) Non-Af 47 L, BUN/Creatinine Ratio 27.4 H , Glucose 76, Calcium 8.7 08/03/21 06:35: POC Glucose 79 08/03/21 11:13: POC Glucose 78 08/03/21 15:37: POC Glucose 68 L Micro: Microbiology 08/01/21 10:47 Blood Culture (Wb) - Anticubital Right Blood Culture - Preliminary No growth in 48 hours. 08/01/21 10:31 Blood Culture (Wb) - Left Hand Blood Culture - Preliminary No growth in 48 hours. 08/01/21 19:01 Stool Stool Occult Blood (CORINNE) - Final Physical Exam Const alert General Appearance: cooperative Orientation / Consciousness: oriented to person HEENT hearing grossly normal bilaterally Head and Scalp: normal to inspection Face and Sinus: face symmetric Nose: external nose normal Mouth: oral and palatal mucosa normal Eyes conjunctivae normal General Eye: normal appearance of both eyes Neck full ROM General: normal visual inspection Lymph Lymphatic: no lymphadenopathy noted Chest inspection of chest normal and palpation of chest normal Chest: symmetrical chest wall rise Resp normal respiratory effort Effort and Inspection: able to speak in complete sentences Cardio regular rate GI non-distended Percussion: normal to percussion Rectal Exam: deferred Neuro Speech: speech normal Gait (Neuro): normal gait Assessment & Plan Assessment/Plan (1) Iron deficiency anemia: PLAN: She will need colonoscopy and possible capsule endoscopy. She is o waylon to take PPI therapy. Recommend iron transfusion to keep ferritin above 150. If patient continues to have a low hemoglobin the colonoscopy can be done as an inpatient. Charges/Coding Visit Charges Inpatient E&M: 24030 Subs Hosp L2
[2021-08-03 16:50] LABS: Bedside Glucose 85 mg/dL (74-106)
[2021-08-03] MEDS: Acetaminophen 325 MG Tablet 650 MG PO (22:22)
[2021-08-03 22:25] LABS: Bedside Glucose 117 mg/dL (74-106)
--- NOTE | 2021-08-03 22:40 | PCM.PN.BLA ---
Progress Note Nightly Lantus discontinued as patient has had low to normal blood glucose.
[2021-08-03] MEDS: Nystatin Powder 15gm Bottle 1 APPLIC TOPICAL (23:28)
[2021-08-04] VITALS (15 sets, daily range): BP systolic 105–150; BP diastolic 65–76; PULSE 71–85; RESP 14–20; TEMP 36.6–37.2; O2SAT 93–97
--- NOTE | 2021-08-04 02:01 | CPS ---
patients nurse called rt to notify rt that patient refused bipap at this time. patient placed back on oxygen via nursing.
[2021-08-04] MEDS: Nystatin Powder 15gm Bottle 1 APPLIC TOPICAL ×3 (05:43→21:31)
[2021-08-04 06:10] LABS: Absolute Lymphocyte Count 1.13 X10^3/uL (0.83-4.51); Absolute Neutrophil Count 5.6 X10^3/uL (2.0-7.7); Basophil# 0.04 X10^3/uL; Basophil% 0.5 % (0-1); Eosinophils% 2.3 % (0-5); Hematocrit 30.1 % (37-47); Hemoglobin 7.7 g/dL (12.0-15.0); Lymphocyte # 1.13 X10^3/ul (0.83-4.51); Lymphocyte % 13.2 % (19-41); Mean Corp Hgb Conc 25.6 g/dL (32-36); Mean Corpuscular Hgb 22.1 pg (27.0-32.0); Mean Corpuscular Volume 86.2 fL (81-99); Mean Platelet Vol. 10.6 fl (6.2-12.0); Monocyte% 17.5 % (0-10); NRBC Flagged by Analyzer 0.2 % (0-5); Neutrophil # 5.63 X10^3/uL (2.7-7.7); Neutrophil % 65.8 % (47-70); Platelet Count 299 K/mm3 (150-450); RBC Distribution Width CV 19.7 % (11.6-14.6); RBC Distribution Width SD 60.8 fl (35.1-43.9); Red Blood Count 3.49 M/mm3 (4.2-5.4); White Blood Count 8.6 K/mm3 (4.4-11.0)
[2021-08-04 06:34] LABS: Anion Gap 0 (5-15); BUN 25 mg/dL (7-18); BUN/Creat Ratio 27.2 RATIO (10-20); Calcium,Total 9.1 mg/dL (8.5-10.1); Chloride 96 mmol/L (98-107); Creatinine, Serum 0.92 mg/dL (0.55-1.02); EST Glomerular Filtration Rate 66 mL/min (>60); Est Glom Filt Rate - Afr Amer 80 mL/min (>60); Estimated Creatinine Clearance 64.78 ml/min; Glucose 85 mg/dL (74-106); Potassium 3.8 mmol/L (3.5-5.1); Sodium Level 138 mmol/L (136-145)
[2021-08-04 06:56] LABS: Bedside Glucose 100 mg/dL (74-106)
--- NOTE | 2021-08-04 07:36 | PCM.PN.INT ---
Assessment & Plan Assessment/Plan (1) Obesity hypoventilation syndrome: (2) Obesity due to excess calories with serious comorbidity: (3) Asthma: QUALIFIERS: Asthma severity: mild intermittent (4) Iron deficiency anemia: PLAN: RECOMMENDATIONS: 1. AVAPS with any sleep, avoid overnight breaks 2. Limit narcotics and benzodiazepines 3. Outpatient complete PFT, sleep study and walking oximetry 4. Anemia therapy per hospitalist 5. Agree with GI work-up 6. Please use BiPAP perioperatively to avoid significant hypoxia and CO2 retention 7. Okay to transfer to ECF from my perspective. If discharged home, close follow-up with nurse practitioner versus discharge to sleep study IMPRESSIONS: 1. Probable obesity hypoventilation syndrome Technically, patient does have a significantly elevated AA gradient. Cannot exclude an element of atelectasis given body habitus. However, CO2 retention is highly suggestive of hypoventilation. Patient was noted to have a negative tox screen on presentation. Patient does have a significantly elevated, but compensated carbon dioxide indicating probable obesity hypoventilation syndrome. Stressed to the patient the importance of using AVAPS to avoid complications during hospitalization. Patient will need AVAPS versus BiPAP as an outpatient. If patient goes to an ECF, current AVAPS settings can be continued. If patient goes home, close follow-up with nurse practitioner to arrange for sleep study versus discharge to a sleep study would be optimal. Mask fit can be optimized as an outpatient, but patient encouraged to continue with compliance while hospitalized. 2. Iron deficiency anemia Unclear etiology. Family unable to provide much information about the patient's bowel habits. EGD did not show a source. Patient will need an outpatient colonoscopy versus capsule study. Blood counts have improved slightly. Anemia would complicate respiratory mechanics and need for supplemental oxygen. Patient should use her BiPAP around the procedure given the need for sedation and potential narcotics. 3. Acute kidney injury Resolved. Patient usually follows with [facility]. Patient appears to be slightly dry clinically. Gentle hydration has been ordered. Trend creatinine, but previously was less than 1 in 2016. No indication for renal replacement therapy at this time. Excessive bicarbonate secondary to #1, not diuretics in my opinion. 4. Super morbid obesity/type 2 diabetes mellitus/chronic iron deficiency anemia/hypertension/CHF/history of asthma Complicates care, management, recovery and prognosis. Clinical assessment is significantly limited given body habitus. Do not believe patient is in an exacerbation of asthma at this time. Would not recommend systemic steroids as this could be complicating diabetic management. Subjective Subjective Patient did okay overnight. Patient did report that she wore her BiPAP for some in the evening, but this was not documented. Patient asked me that she wore her BiPAP from 11 PM to 2 AM and then took a break. Patient was found off of BiPAP and more tired compared to yesterday. No new complaints at this time. Objective Data Objective Data Vital Signs: Vital Signs Temp Pulse Resp BP Pulse Ox 36.7 C 80 18 138/70 H 96 08/04/21 03:30 08/04/21 03:30 08/04/21 03:30 08/04/21 03:30 08/04/21 03:30 Oxygen Flow Rate (L/min) 3 Oxygen Delivery Method Nasal Cannula Weight: 215 kg Body Mass Index (BMI) 72.1 Intake & Output: Intake and Output for Last 24 Hours 08/02/21 08/03/21 08/04/21 23:59 23:59 23:59 Intake Total 1110 / 1110 1989 Output Total 400 / 400 325 / 375 50 / 50 Balance 710 / 710 1665 / 1615 -50 / -50 Lab / Micro Data Result Diagrams: 08/04/21 05:15 08/04/21 05:15 Labs: Laboratory Results - last 24 hr 08/03/21 11:13: POC Glucose 78 08/03/21 15:37: POC Glucose 68 L 08/03/21 16:45: POC Glucose 85 08/03/21 22:05: POC Glucose 117 H 08/04/21 05:15: WBC 8.6, RBC 3.49 L, Hgb 7.7 L, Hct 30.1 L, MCV 86.2, MCH 22.1 L, MCHC 25.6 L, RDW Std Deviation 60.8 H, RDW Coeff of Amirah 19.7 H, Plt Count 299, MPV 10.6, Immature Gran % (Auto) 0.700, Neut % (Auto) 65.8, Lymph % (Auto) 13.2 L, [place] % (Auto) 17.5 H, Eos % (Auto) 2.3, Baso % (Auto) 0.5, Absolute Neuts (auto) 5.6, Absolute Lymphs (auto) 1.13, Nucleated RBC % 0.2 08/04/21 05:15: Sodium 138, Potassium 3.8, Chloride 96 L, Carbon Dioxide 42.0 H, Anion Gap 0 L, BUN 25 H, Creatinine 0.92, Estim Creat Clear Calc 64.78, Est GFR (MDRD) Af Amer 80, Est GFR (MDRD) Non-Af 66, BUN/Creatinine Ratio 27.2 H, Glucose 85, Calcium 9.1 08/04/21 06:50: POC Glucose 100 Micro: Microbiology 08/01/21 10:47 Blood Culture (Wb) - Anticubital Right Blood Culture - Preliminary No growth in 48 hours. 08/01/21 10:31 Blood Culture (Wb) - Left Hand Blood Culture - Preliminary No growth in 48 hours. 08/01/21 19:01 Stool Stool Occult Blood (CORINNE) - Final Physical Exam Const no apparent distress Constitutional Narrative: super morbid obesity. More drowsy today. General Appearance: cooperative; Negative for on BiPAP Orientation / Consciousness: awake, oriented to person, oriented to place and oriented to time Nutritional Appearance: morbidly obese HEENT normocephalic, head/scalp atraumatic, hearing grossly normal bilaterally and moist oral mucous membranes Eyes PERRL, EOMs intact bilaterally and conjunctivae normal Neck no lymphadenopathy and supple Resp normal respiratory effort, no retractions, no use of accessory muscles and clear to auscultation bilaterally Resp Narrative: on 3L of oxygen; diminished breath sounds bibasally Cardio regular rate, regular rhythm, S1 normal heart sound, S2 normal heart sound and no murmurs GI normal to inspection, nondistended, normoactive bowel sounds, soft to palpation, non-tender, non-distended and hepatosplenomegaly Extremity normal to inspection and full ROM General Extremity: edema; Negative for clubbing or cyanosis Peripheral Pulses: Yes pulses 2+ throughout Skin no rashes or lesions noted Neuro oriented x3, CN's II-XII intact bilaterally and no focal motor deficits Sensorium / Orientation: awake and alert Motor Exam: strength 5/5 throughout Psych affect normal Charges/Coding Visit Charges Inpatient E&M: 86935 Subs Hosp L2
[2021-08-04] MEDS: Sertraline 100 MG Tablet PO (09:28)
[2021-08-04] MEDS: Pantoprazole Sodium 40 MG Tablet PO ×2 (09:29→21:13)
[2021-08-04] MEDS: Magnesium Chloride 64 MG Delay Rel.Tablet 128 MG PO (09:29)
--- NOTE | 2021-08-04 09:45 | CPS ---
RN reports placing patient on BiPAP at this time.
--- NOTE | 2021-08-04 11:34 | PN.HOSP_ITS ---
Subjective Subjective Follow-up for multiple comorbidities. Objective Data Objective Data Vital Signs: Vital Signs Temp Pulse Resp BP Pulse Ox 99.0 F 85 18 129/65 H 94 08/04/21 09:23 08/04/21 09:23 08/04/21 09:23 08/04/21 09:23 08/04/21 09:23 Oxygen Flow Rate (L/min) 3 Oxygen Delivery Method Nasal Cannula Weight: 473 lb 15.901 oz Body Mass Index (BMI) 72.1 Intake & Output: Intake and Output for Last 24 Hours 08/02/21 08/03/21 08/04/21 23:59 23:59 23:59 Intake Total 1110 / 1110 1989 Output Total 400 / 400 325 / 375 50 / 50 Balance 710 / 710 1665 / 1615 -50 / -50 Lab / Micro Data Result Diagrams: 08/04/21 05:15 08/04/21 05:15 Labs: Laboratory Results - last 24 hr 08/03/21 15:37: POC Glucose 68 L 08/03/21 16:45: POC Glucose 85 08/03/21 22:05: POC Glucose 117 H 08/04/21 05:15: WBC 8.6, RBC 3.49 L, Hgb 7.7 L, Hct 30.1 L, MCV 86.2, MCH 22.1 L , MCHC 25.6 L, RDW Std Deviation 60.8 H, RDW Coeff of Amirah 19.7 H, Plt Count 299, MPV 10.6, Immature Gran % (Auto) 0.700, Neut % (Auto) 65.8, Lymph % (Auto) 13.2 L, Dickenson % (Auto) 17.5 H, Eos % (Auto) 2.3, Baso % (Auto) 0.5, Absolute Neuts (auto) 5.6, Absolute Lymphs (auto) 1.13, Nucleated RBC % 0.2 08/04/21 05:15: Sodium 138, Potassium 3.8, Chloride 96 L, Carbon Dioxide 42.0 H, Anion Gap 0 L, BUN 25 H, Creatinine 0.92, Estim Creat Clear Calc 64.78, Est GFR (MDRD) Af Amer 80, Est GFR (MDRD) Non-Af 66, BUN/Creatinine Ratio 27.2 H, Glucose 85, Calcium 9.1 08/04/21 06:50: POC Glucose 100 Micro: Microbiology 08/01/21 10:47 Blood Culture (Wb) - Anticubital Right Blood Culture - Preliminary No growth in 48 hours. 08/01/21 10:31 Blood Culture (Wb) - Left Hand Blood Culture - Preliminary No growth in 48 hours. 08/01/21 19:01 Stool Stool Occult Blood (CORINNE) - Final Physical Exam Narrative Patient is morbidly obese. Patient could not get out of the bed or turn around the bed. On foam overlay bed Physical exam General: Alert, Oriented x3, Cooperative, morbid obesity BMI 72.1 kg/min risk HEENT: Atraumatic, PERRLA, EOMI, Normocephalic Oral: No Gingival or Mucosal Lesions/ Ulcerations Neck: Supple, No JVD, Negative Carotid Bruits Lungs: Air entry severely diminished in bilateral lung bases. No crepitation/rhonchi/wheezing Cardiovascular: Regular rate, Regular Rhythm, Normal S1, Normal S2, systolic murmur LLSB Abdomen: Bowel Sounds Present, Soft, Non Tender, Non-Distended : No renal angle tenderness. No suprapubic tenderness. Extremities: Bilateral lower extremity nonpitting edema, lymphedema with thickened skin and subcutaneous tissue, Capillary Refill Less than 3 Seconds Skin: Dry skin, venous hypertension. Panniculi Musculoskeletal: No Tenderness to Palpation of Joints or Extremities. ROM severely restricted. Could not move her lower legs even sideways/flex knee Neurological: Cranial nerves II-XII grossly intact, DTR 2+/4 Psych/Mental Status: Flat affect. Assessment & Plan Assessment/Plan (1) Iron deficiency anemia: (2) Obesity hypoventilation syndrome: (3) Obesity due to excess calories with serious comorbidity: (4) Weakness: (5) Elevated serum creatinine: PLAN: 1. Acute on chronic iron deficiency anemia: Hemoglobin dropped to 7.3 from 7.6. Patient had 12 mg of IV iron infusion. Patient hemoglobin was between 9 to 10 g in 2016. On PPI -EGD done on 08/02 and showed chronic gastritis with an irregular [id number] taken, no acute source of blood loss found -Will need outpatient colonoscopy and then capsule endoscopy if that is negative -Patient has known history of H. pylori gastritis -She denies any hematemesis/coffee-ground emesis/hematochezia/melena -Patient no longer has menses 08/04: Hemoglobin is 7.7, continue PPI and iron transfusion. Goal ferritin 150. 2. Chronic hypoxic and hypercapnic respiratory failure secondary to obesity hypoventilation syndrome/HONEY -AA gradient is significantly elevated, pulmonary follow-up with appreciated. Chronic CO2 retainer, baseline 60 to 70 mmHg. Nonadherent to CPAP. -AVAPS while here Health Education Aide recommended AVAPS with sleep, avoid overnight drinks. Limiting narcotics or benzodiazepines. Outpatient complete PFT sleep yesterday and walking pulse oximetry. Use BiPAP perioperatively to avoid significant hypoxia or CO2 retention. Okay to transfer to ECF. If discharged home, close follow-up with nurse practitioner versus discharge to sleep study 3. Mild dysphagia -Patient was seen by speech therapy given some aspiration while more somnolent -Diet recommendations are for food to be cut to bite-size with food and drink only if fully alert and one-to-one supervision for now -Continue speech therapy LORNE -Patient with previous baseline serum creatinine less than 1 in 2016. Creatinine went up to 1.71. On 08/03 creatinine 1.24. l continue to hold losartan and diuretics. Monitor kidney function electrolytes - Debility -Patient is markedly weak on exam however no focal deficits are noted -Recommend continued PT and OT -Have recommended skilled facility at discharge for continued therapy--> patient is somewhat resistant to this--> ongoing conversations DM-2 -Hemoglobin A1c is 6.5 -08/04: Lantus insulin was discontinued. -Continue sliding scale Hypertension -Hold home losartan/metolazone/Lasix -Pressures are stable despite holding home medication -As needed hydralazine Asthma -Continue as needed albuterol Depression/anxiety -Continue home sertraline -Use Ativan sparingly Chronic pain -Minimize oxycodone use -As needed Tylenol DVT prophylaxis Hemoglobin dropped to 7.3. Hold Lovenox. CODE STATUS -full code Charges/Coding Visit Charges Inpatient E&M: 32787 Subs Hosp L2
[2021-08-04 11:46] LABS: Bedside Glucose 119 mg/dL (74-106)
[2021-08-04 16:36] LABS: Bedside Glucose 129 mg/dL (74-106)
[2021-08-04 23:56] LABS: Bedside Glucose 144 mg/dL (74-106)
[2021-08-05] VITALS (15 sets, daily range): BP systolic 101–150; BP diastolic 52–69; PULSE 70–86; RESP 15–25; TEMP 35.7–37.2; O2SAT 91–97
[2021-08-05 06:01] LABS: Absolute Neutrophil Count 6.5 X10^3/uL (2.0-7.7); Basophil# 0.04 X10^3/uL; Basophil% 0.4 % (0-1); Eosinophil# 0.14 X10^3/uL; Eosinophils% 1.5 % (0-5); Hematocrit 27.8 % (37-47); Hemoglobin 7.3 g/dL (12.0-15.0); Lymphocyte % 11.7 % (19-41); Mean Corp Hgb Conc 26.3 g/dL (32-36); Mean Corpuscular Hgb 22.4 pg (27.0-32.0); Mean Corpuscular Volume 85.3 fL (81-99); Mean Platelet Vol. 10.1 fl (6.2-12.0); Monocyte# 1.66 X10^3/uL; Monocyte% 17.6 % (0-10); NRBC Flagged by Analyzer 0.3 % (0-5); Neutrophil # 6.45 X10^3/uL (2.7-7.7); Neutrophil % 68.4 % (47-70); POSITIVE DIFFERENTIAL YES; POSITIVE MORPHOLOGY YES; Platelet Count 255 K/mm3 (150-450); RBC Distribution Width CV 20.2 % (11.6-14.6); RBC Distribution Width SD 60.2 fl (35.1-43.9); Red Blood Count 3.26 M/mm3 (4.2-5.4); White Blood Count 9.4 K/mm3 (4.4-11.0)
[2021-08-05 06:05] LABS: Differential Indicated SCAN CRITERIA MET
[2021-08-05] MEDS: Nystatin Powder 15gm Bottle 1 APPLIC TOPICAL ×3 (06:33→21:01)
[2021-08-05 06:37] LABS: Anion Gap -1 (5-15); BUN 22 mg/dL (7-18); BUN/Creat Ratio 26.9 RATIO (10-20); Chloride 96 mmol/L (98-107); Creatinine, Serum 0.82 mg/dL (0.55-1.02); EST Glomerular Filtration Rate 75 mL/min (>60); Est Glom Filt Rate - Afr Amer 91 mL/min (>60); Estimated Creatinine Clearance 72.68 ml/min; Ferritin 255 ng/mL (8-252); Glucose 113 mg/dL (74-106); Potassium 3.8 mmol/L (3.5-5.1); Sodium Level 137 mmol/L (136-145)
[2021-08-05 06:38] LABS: Anisocytosis 1+; Differential Comment SCANNED; Hypochromasia 1+
[2021-08-05 06:40] LABS: Bedside Glucose 117 mg/dL (74-106)
--- NOTE | 2021-08-05 06:45 | PCM.PN.INT ---
Assessment & Plan Assessment/Plan (1) Obesity hypoventilation syndrome: (2) Obesity due to excess calories with serious comorbidity: (3) Asthma: QUALIFIERS: Asthma severity: mild intermittent (4) Iron deficiency anemia: PLAN: RECOMMENDATIONS: 1. AVAPS with any sleep, avoid overnight breaks 2. Limit narcotics and benzodiazepines 3. Outpatient complete PFT, sleep study and walking oximetry 4. Anemia therapy per hospitalist 5. Agree with GI work-up 6. Please use BiPAP perioperatively to avoid significant hypoxia and CO2 retention 7. Okay to transfer to ECF from my perspective. If discharged home, close follow-up with nurse practitioner versus discharge to sleep study 8. Given stability and compliance with recommendations, will sign off from a pulmonary perspective during this hospitalization. Please call with further issues IMPRESSIONS: 1. Probable obesity hypoventilation syndrome Technically, patient does have a significantly elevated AA gradient. Cannot exclude an element of atelectasis given body habitus. However, CO2 retention is highly suggestive of hypoventilation. Patient was noted to have a negative tox screen on presentation. Patient does have a significantly elevated, but compensated carbon dioxide indicating probable obesity hypoventilation syndrome. Stressed to the patient the importance of using AVAPS to avoid complications during hospitalization. Patient will need AVAPS versus BiPAP as an outpatient. If patient goes to an ECF, current AVAPS settings can be continued. If patient goes home, close follow-up with nurse practitioner to arrange for sleep study versus discharge to a sleep study would be optimal. Mask fit can be optimized as an outpatient, but patient encouraged to continue with compliance while hospitalized. Insurance may cause an issue with her to follow-up with us. Patient may need to be established emergently with [facility]. Defer to case management. 2. Iron deficiency anemia Unclear etiology. Family unable to provide much information about the patient's bowel habits. EGD did not show a source. Patient will need an outpatient colonoscopy versus capsule study. Blood counts have improved slightly. Anemia would complicate respiratory mechanics and need for supplemental oxygen. Patient should use her BiPAP around the procedure given the need for sedation and potential narcotics. 3. Acute kidney injury Resolved. Patient usually follows with [facility]. Patient appears to be slightly dry clinically. Gentle hydration has been ordered. Trend creatinine, but previously was less than 1 in 2016. No indication for renal replacement therapy at this time. Excessive bicarbonate secondary to #1, not diuretics in my opinion. 4. Super morbid obesity/type 2 diabetes mellitus/chronic iron deficiency anemia/hypertension/CHF/history of asthma Complicates care, management, recovery and prognosis. Clinical assessment is significantly limited given body habitus. Do not believe patient is in an exacerbation of asthma at this time. Would not recommend systemic steroids as this could be complicating diabetic management. Subjective Subjective Patient did much better overnight. Patient was able to tolerate the BiPAP for significant portion of sleep. Patient with no further complaints this morning. Respiratory was able to work with the patient and leak has been minimized. Objective Data Objective Data Vital Signs: Vital Signs Temp Pulse Resp BP Pulse Ox 37.1 C 75 18 150/74 H 92 08/04/21 15:17 08/05/21 03:00 08/04/21 22:10 08/04/21 15:17 08/05/21 04:00 Oxygen Flow Rate (L/min) 2 Oxygen Delivery Method Nasal Cannula Weight: 215 kg Body Mass Index (BMI) 72.1 Intake & Output: Intake and Output for Last 24 Hours 08/03/21 08/04/21 08/05/21 23:59 23:59 23:59 Intake Total 1989 / 1989 1070 / 1070 Output Total 325 / 375 1400 / 1400 Balance 1665 / 1615 -330 / -330 Lab / Micro Data Result Diagrams: 08/05/21 05:23 08/05/21 05:23 Labs: Laboratory Results - last 24 hr 08/04/21 06:50: POC Glucose 100 08/04/21 11:40: POC Glucose 119 H 08/04/21 16:30: POC Glucose 129 H 08/04/21 21:15: POC Glucose 144 H 08/05/21 05:23: WBC 9.4, RBC 3.26 L, Hgb 7.3 L, Hct 27.8 L, MCV 85.3, MCH 22.4 L, MCHC 26.3 L, RDW Std Deviation 60.2 H, RDW Coeff of Amirah 20.2 H, Plt Count 255, MPV 10.1, Immature Gran % (Auto) 0.400, Neut % (Auto) 68.4, Lymph % (Auto) 11.7 L, [place] % (Auto) 17.6 H, Eos % (Auto) 1.5, Baso % (Auto) 0.4, Absolute Neuts (auto) 6.5, Absolute Lymphs (auto) 1.10, Nucleated RBC % 0.3, Differential Comment SCANNED, Hypochromasia 1+, Anisocytosis 1+ 08/05/21 05:23: Sodium 137, Potassium 3.8, Chloride 96 L, Carbon Dioxide 42.0 H, Anion Gap -1 L, BUN 22 H, Creatinine 0.82, Estim Creat Clear Calc 72.68, Est GFR (MDRD) Af Amer 91, Est GFR (MDRD) Non-Af 75, BUN/Creatinine Ratio 26.9 H, Glucose 113 H, Calcium 9.0, Ferritin 255 H 08/05/21 06:36: POC Glucose 117 H Micro: Microbiology 08/01/21 10:47 Blood Culture (Wb) - Anticubital Right Blood Culture - Preliminary No growth in 48 hours. 08/01/21 10:31 Blood Culture (Wb) - Left Hand Blood Culture - Preliminary No growth in 48 hours. 08/01/21 19:01 Stool Stool Occult Blood (CORINNE) - Final Physical Exam Const no apparent distress Constitutional Narrative: super morbid obesity. Awakens quickly. General Appearance: cooperative Orientation / Consciousness: awake, oriented to person, oriented to place and oriented to time Nutritional Appearance: morbidly obese HEENT normocephalic, head/scalp atraumatic, hearing grossly normal bilaterally and moist oral mucous membranes Eyes PERRL, EOMs intact bilaterally and conjunctivae normal Neck no lymphadenopathy and supple Resp normal respiratory effort, no retractions, no use of accessory muscles and clear to auscultation bilaterally Resp Narrative: diminished breath sounds bibasally. No leak noted around BiPAP mask Cardio regular rate, regular rhythm, S1 normal heart sound, S2 normal heart sound and no murmurs GI normal to inspection, nondistended, normoactive bowel sounds, soft to palpation, non-tender, non-distended and hepatosplenomegaly Extremity normal to inspection and full ROM General Extremity: edema; Negative for clubbing or cyanosis Peripheral Pulses: Yes pulses 2+ throughout Skin no rashes or lesions noted Neuro oriented x3, CN's II-XII intact bilaterally and no focal motor deficits Sensorium / Orientation: awake and alert Motor Exam: strength 5/5 throughout Psych affect normal Charges/Coding Visit Charges Inpatient E&M: 94704 Subs Hosp L2
[2021-08-05] MEDS: Sertraline 100 MG Tablet PO (09:54)
[2021-08-05] MEDS: Pantoprazole Sodium 40 MG Tablet PO ×2 (09:54→20:59)
[2021-08-05] MEDS: Magnesium Chloride 64 MG Delay Rel.Tablet 128 MG PO (09:54)
[2021-08-05 11:56] LABS: Bedside Glucose 138 mg/dL (74-106)
[2021-08-05] MEDS: 0.9% Saline Lock 10 ML Syringe IV (11:56)
[2021-08-05] MEDS: Acetaminophen 325 MG Tablet 650 MG PO ×2 (11:56→21:19)
--- NOTE | 2021-08-05 12:15 | PCM.PN.HOSP ---
Subjective Subjective Follow-up morbid obesity with multiple active issues including shortness of breath Patient shortness of breath is better on BiPAP. Objective Data Objective Data Vital Signs: Vital Signs Temp Pulse Resp BP Pulse Ox 98.9 F 86 18 131/52 H 93 08/05/21 09:51 08/05/21 09:51 08/05/21 09:51 08/05/21 09:51 08/05/21 09:51 Oxygen Flow Rate (L/min) 3 Oxygen Delivery Method Nasal Cannula Weight: 473 lb 15.901 oz Body Mass Index (BMI) 72.1 Intake & Output: Intake and Output for Last 24 Hours 08/03/21 08/04/21 08/05/21 23:59 23:59 23:59 Intake Total 1989 / 1989 1070 / 1190 390 / 390 Output Total 325 / 375 1400 / 1400 Balance 1665 / 1615 -330 / -210 390 / 390 Lab / Micro Data Result Diagrams: 08/05/21 05:23 08/05/21 05:23 Labs: Laboratory Results - last 24 hr 08/04/21 16:30: POC Glucose 129 H 08/04/21 21:15: POC Glucose 144 H 08/05/21 05:23: WBC 9.4, RBC 3.26 L, Hgb 7.3 L, Hct 27.8 L, MCV 85.3, MCH 22.4 L, MCHC 26.3 L, RDW Std Deviation 60.2 H, RDW Coeff of Amirah 20.2 H, Plt Count 255, MPV 10.1, Immature Gran % (Auto) 0.400, Neut % (Auto) 68.4, Lymph % (Auto) 11.7 L, Holmes % (Auto) 17.6 H, Eos % (Auto) 1.5, Baso % (Auto) 0.4, Absolute Neuts (auto) 6.5, Absolute Lymphs (auto) 1.10, Nucleated RBC % 0.3, Differential Comment SCANNED, Hypochromasia 1+, Anisocytosis 1+ 08/05/21 05:23: Sodium 137, Potassium 3.8, Chloride 96 L, Carbon Dioxide 42.0 H, Anion Gap -1 L, BUN 22 H, Creatinine 0.82, Estim Creat Clear Calc 72.68, Est GFR (MDRD) Af Amer 91, Est GFR (MDRD) Non-Af 75, BUN/Creatinine Ratio 26.9 H, Glucose 113 H, Calcium 9.0, Ferritin 255 H 08/05/21 06:36: POC Glucose 117 H 08/05/21 11:50: POC Glucose 138 H Micro: Microbiology 08/01/21 10:47 Blood Culture (Wb) - Anticubital Right Blood Culture - Preliminary No growth in 48 hours. 08/01/21 10:31 Blood Culture (Wb) - Left Hand Blood Culture - Preliminary No growth in 48 hours. 08/01/21 19:01 Stool Stool Occult Blood (CORINNE) - Final Physical Exam Narrative Patient is morbidly obese. Discussed with patient's son. Patient had good sleep on BiPAP. No chest pain on foam overlay bed Physical exam General: Alert, Oriented x3, Cooperative, morbid obesity BMI 72.1 kg/min risk HEENT: Atraumatic, PERRLA, EOMI, Normocephalic Oral: No Gingival or Mucosal Lesions/ Ulcerations Neck: Supple, No JVD, Negative Carotid Bruits Lungs: Air entry severely diminished in bilateral lung bases. No crepitation/rhonchi/wheezing Cardiovascular: Regular rate, Regular Rhythm, Normal S1, Normal S2, systolic murmur LLSB Abdomen: Bowel Sounds Present, Soft, Non Tender, Non-Distended : No renal angle tenderness. No suprapubic tenderness. Extremities: Bilateral lower extremity nonpitting edema, lymphedema with thickened skin and subcutaneous tissue, Capillary Refill Less than 3 Seconds Skin: Dry skin, venous hypertension. Panniculi Musculoskeletal: No Tenderness to Palpation of Joints or Extremities. ROM severely restricted. Could not move her lower legs even sideways/flex knee Neurological: Cranial nerves II-XII grossly intact, DTR 2+/4 Psych/Mental Status: Flat affect. Assessment & Plan Assessment/Plan (1) Iron deficiency anemia: (2) Obesity hypoventilation syndrome: (3) Obesity due to excess calories with serious comorbidity: (4) Weakness: (5) Elevated serum creatinine: PLAN: 1. Acute on chronic iron deficiency anemia: Hemoglobin dropped to 7.3 from 7.6. Patient had 12 mg of IV iron infusion. Patient hemoglobin was between 9 to 10 g in 2016. On PPI -EGD done on 08/02 and showed chronic gastritis with an irregular [id number]-[id number] taken, no acute source of blood loss found -Will need outpatient colonoscopy and then capsule endoscopy if that is negative -Patient has known history of H. pylori gastritis -She denies any hematemesis/coffee-ground emesis/hematochezia/melena -Patient no longer has menses 08/04: Hemoglobin is 7.7, continue PPI and iron transfusion. Goal ferritin 150. 08/05: Hemoglobin is 7.3. IV iron ordered. Ferritin 255. Serum iron low, TIBC high, iron 74.2% suggestive of iron deficiency anemia. 2. Chronic hypoxic and hypercapnic respiratory failure secondary to obesity hypoventilation syndrome/HONEY -AA gradient is significantly elevated, pulmonary follow-up with appreciated. Chronic CO2 retainer, baseline 60 to 70 mmHg. Nonadherent to CPAP. -AVAPS while here Wetlands Conservation Laborer recommended AVAPS with sleep, avoid overnight drinks. Limiting narcotics or benzodiazepines. Outpatient complete PFT sleep yesterday and walking pulse oximetry. Use BiPAP perioperatively to avoid significant hypoxia or CO2 retention. Okay to transfer to ECF. If discharged home, close follow-up with nurse practitioner versus discharge to sleep study 08/05: Pulmonology signed off. 3. Mild dysphagia -Patient was seen by speech therapy given some aspiration while more somnolent -Diet recommendations are for food to be cut to bite-size with food and drink only if fully alert and one-to-one supervision for now -Continue speech therapy LORNE -Patient with previous baseline serum creatinine less than 1 in 2016. Creatinine went up to 1.71. On 08/03 creatinine 1.24. l continue to hold losartan and diuretics. Monitor kidney function electrolytes - Debility -Patient is markedly weak on exam however no focal deficits are noted -Recommend continued PT and OT -Have recommended skilled facility at discharge for continued therapy--> patient is somewhat resistant to this--> ongoing conversations DM-2 -Hemoglobin A1c is 6.5 -08/04: Lantus insulin was discontinued. -Continue sliding scale 08/05: Glucose is less than 140 mg/dL. Hypertension -Hold home losartan/metolazone/Lasix -Pressures are stable despite holding home medication -As needed hydralazine Asthma -Continue as needed albuterol Depression/anxiety -Continue home sertraline -Use Ativan sparingly Chronic pain -Minimize oxycodone use -As needed Tylenol DVT prophylaxis Hemoglobin dropped to 7.3. Hold Lovenox. CODE STATUS -full code Charges/Coding Visit Charges Inpatient E&M: 58212 Subs Hosp L2
[2021-08-05] MEDS: Furosemide 40 MG Tablet PO (16:09)
[2021-08-05 17:26] LABS: Bedside Glucose 191 mg/dL (74-106)
[2021-08-05] MEDS: LORazepam 1 MG Tablet PO (20:59)
[2021-08-05] MEDS: Insulin Lispro 100 UNIT/ML INSULN.PEN SC (20:59)
[2021-08-05 21:21] LABS: Bedside Glucose 162 mg/dL (74-106)
[2021-08-06] VITALS (12 sets, daily range): BP systolic 117–149; BP diastolic 53–69; PULSE 74–89; RESP 15–24; TEMP 36.7–37.3; O2SAT 93–99
[2021-08-06] MEDS: Nystatin Powder 15gm Bottle 1 APPLIC TOPICAL ×3 (06:56→21:09)
[2021-08-06 07:00] LABS: Bedside Glucose 121 mg/dL (74-106)
--- NOTE | 2021-08-06 09:06 | CASEMGMT ---
CHRISTINA called [facility] and left another voice mail for Usha in admissions. CHRISTINA will send updates. Toya SIERRA
[2021-08-06] MEDS: Furosemide 40 MG Tablet PO (09:24)
[2021-08-06] MEDS: Sertraline 100 MG Tablet PO (09:25)
[2021-08-06] MEDS: Pantoprazole Sodium 40 MG Tablet PO ×2 (09:25→21:09)
[2021-08-06] MEDS: Magnesium Chloride 64 MG Delay Rel.Tablet 128 MG PO (09:25)
--- NOTE | 2021-08-06 10:46 | CASEMGMT ---
Addendum entered by Victorina Rodriguez 08/06/21 11:28: Per pt's insurance, [facility] is no longer in-network with pt's insurance and they states family is aware but this RN CM will discuss the need to transfer equipment to another in-network DME company. Chiara RYAN CM Original Note: Call to [facility] and pt's most recent order is for 2L at rest and 3L w/ exertion and 5L at bedtime. Pt does still have cpap thru them and they state pt had home study in 2014. Per rep at [facility], Dr. Tolbert has written all oxygen and cpap orders. CM to follow for accepting SNF, crm marketing executive c/s today, and possible call to [facility] office for pt f/u regarding bipap/NIV at d/c from SNF. Chiara RYAN CM
[2021-08-06 12:11] LABS: Bedside Glucose 137 mg/dL (74-106)
--- NOTE | 2021-08-06 12:35 | CASEMGMT ---
CHRISTINA called [facility] and spoke with the e mail system administrator. CHRISTINA went over referral with her. She was going to look at the referral and get back to CHRISTINA. She was also going to verify patient's insurance as she is not familiar with it. CHRISTINA gave her CHRISTINA's phone number. Await return call. Toya SIERRA
--- NOTE | 2021-08-06 13:39 | CASEMGMT ---
CHRISTINA received a call from [facility] and they are no longer in network with patient's insurance. CHRISTINA called [employer] department and spoke with Dasha. CHRISTINA let Dasha know that [facility] is stating they are no longer in network. Dasha said she will have her team look at this and reach out to [facility]. Dasha also said she was going to have her team find more facilities that are in network and they will reach out to see if those facilities would accommodate patient's weight. Dasha will then call CHRISTINA back later today and get a list faxed over. Toya Brown JUVENILE COUNSELOR MARIELA
[2021-08-06] MEDS: Acetaminophen 325 MG Tablet 650 MG PO (15:11)
--- NOTE | 2021-08-06 15:49 | CASEMGMT ---
CHRISTINA received a return call from Dasha with [employer]. Dasha said that she spoke with Yamel at [facility]. Their fax number is [phone]. Dasha also said they spoke with [facility] and let them know they are in network with [employer]. They spoke with Usha at [facility]. CHRISTINA called [facility] and left a message for Usha in admissions requesting a return call. Toya Brown PLANT CYTOLOGISTIsaac SIERRA
[2021-08-06 16:56] LABS: Bedside Glucose 140 mg/dL (74-106)
--- NOTE | 2021-08-06 19:15 | PCM.PN.HOSP ---
Subjective Subjective Patient was seen and examined today, she has no complaints of any shortness of breath, we are attempting to get the patient placed in a retirement facility but because of her insurance we are having difficulty locating one right now. Patient's last hemoglobin yesterday was 7.3, I will repeat her CBC in the morning. Patient is currently on nasal cannula oxygen. Objective Data Objective Data Vital Signs: Vital Signs Temp Pulse Resp BP Pulse Ox 98.1 F 79 18 145/64 H 97 08/06/21 15:00 08/06/21 15:00 08/06/21 15:00 08/06/21 15:00 08/06/21 15:00 Oxygen Flow Rate (L/min) 3 Oxygen Delivery Method Nasal Cannula Weight: 215 kg Body Mass Index (BMI) 72.1 Intake & Output: Intake and Output for Last 24 Hours 08/04/21 08/05/21 08/06/21 23:59 23:59 23:59 Intake Total 1070 / 1190 1010 / 1010 900 / 900 Output Total 1400 / 1400 650 / 850 1100 / 1100 Balance -330 / -210 360 / 160 -200 / -200 Lab / Micro Data Result Diagrams: 08/05/21 05:23 08/05/21 05:23 Labs: Laboratory Results - last 24 hr 08/05/21 20:58: POC Glucose 162 H 08/06/21 06:55: POC Glucose 121 H 08/06/21 12:04: POC Glucose 137 H 08/06/21 16:48: POC Glucose 140 H Micro: Microbiology 08/01/21 10:47 Blood Culture (Wb) - Anticubital Right Blood Culture - Final No growth in 5 days. 08/01/21 10:31 Blood Culture (Wb) - Left Hand Blood Culture - Final No growth in 5 days. 08/01/21 19:01 Stool Stool Occult Blood (CORINNE) - Final Physical Exam Const alert, oriented x3 and no apparent distress Constitutional Narrative: Patient is alert and appropriate, she does not appear to be in any respiratory distress General Appearance: cooperative, well kempt and well developed Orientation / Consciousness: awake, oriented to person, oriented to place and oriented to time Nutritional Appearance: morbidly obese HEENT normocephalic, head/scalp atraumatic and moist oral mucous membranes Head and Scalp: normocephalic Eyes PERRL, EOMs intact bilaterally and conjunctivae normal Neck nuchal rigidity, supple, no JVD, thyroid normal and no carotid bruits General: trachea midline Resp normal respiratory effort, no retractions, no use of accessory muscles and clear to auscultation bilaterally Auscultation: Negative for rales, rhonchi or wheezes Cardio regular rate, regular rhythm, S1 normal heart sound, S2 normal heart sound, no murmurs, no rub and no gallops GI normal to inspection, nondistended, normoactive bowel sounds, soft to palpation, non-tender and non-distended Extremity Extremity Narrative: Patient has friction ulcerations on the upper inner thigh of her left leg Skin skin turgor normal Skin Narrative: Patient has 2 friction ulcerations of her left upper inner thigh General Skin Exam: no breakdown Neuro oriented x3, CN's II-XII intact bilaterally, no focal motor deficits and no sensory deficits noted Sensorium / Orientation: awake and alert Speech: speech normal Psych affect normal Assessment & Plan Assessment/Plan (1) Iron deficiency anemia: PLAN: 1. Acute on chronic iron deficiency anemia-patient's CBC will be rechecked tomorrow, she will need further work-up as an outpatient including a colonoscopy and possibly capsule endoscopy. Patient shows no signs of any active GI bleeding at this time, patient has received blood transfusions as well as IV iron therapy, patient will be placed on oral iron supplementation #2 generalized debility secondary to morbid obesity and multiple medical problems including chronic hypoxic and hypercapnic respiratory failure secondary to hypoventilation syndrome-PT and OT will continue to see the patient, she will need short-term placement in retirement facility #3 type 2 diabetes-continue sliding scale insulin and fingerstick blood sugars #4 essential hypertension-patient is stable on no chronic hypertensive medications at this time, blood pressure will be monitored #5 chronic depression-patient is on Zoloft #6 acute kidney injury-resolved at this time #7 gastritis-patient is on Protonix twice daily #8 chronic combined respiratory failure secondary to obesity hypoventilation syndrome-patient is currently on nasal cannula oxygen and AVAPS at night and when sleeping. Charges/Coding Visit Charges Inpatient E&M: 38356 Subs Hosp L3
[2021-08-06] MEDS: Insulin Lispro 100 UNIT/ML INSULN.PEN SC (21:09)
[2021-08-06 21:15] LABS: Bedside Glucose 157 mg/dL (74-106)
[2021-08-06] MEDS: LORazepam 1 MG Tablet PO (21:18)
[2021-08-07] VITALS (13 sets, daily range): BP systolic 132–151; BP diastolic 60–77; PULSE 68–81; RESP 15–26; TEMP 36.2–37.1; O2SAT 93–98
[2021-08-07] MEDS: Nystatin Powder 15gm Bottle 1 APPLIC TOPICAL ×3 (05:31→21:55)
[2021-08-07 06:42] LABS: Hematocrit 29.4 % (37-47); Hemoglobin 7.6 g/dL (12.0-15.0)
[2021-08-07 07:01] LABS: Bedside Glucose 109 mg/dL (74-106)
[2021-08-07] MEDS: Ferrous Sulfate 325 MG Tablet PO ×2 (09:03→16:29)
[2021-08-07] MEDS: Magnesium Chloride 64 MG Delay Rel.Tablet 128 MG PO (09:03)
[2021-08-07] MEDS: Pantoprazole Sodium 40 MG Tablet PO ×2 (09:03→21:55)
[2021-08-07] MEDS: Furosemide 40 MG Tablet PO (09:03)
[2021-08-07] MEDS: Sertraline 100 MG Tablet PO (09:03)
[2021-08-07] MEDS: Acetaminophen 325 MG Tablet 650 MG PO ×2 (09:03→18:31)
--- NOTE | 2021-08-07 09:35 | CASEMGMT ---
Addendum entered by Victorina Dickerson 08/07/21 10:21: SW in to speak with pt and pt's guest present in room. SW updated that [facility] had stated that they do not take pt's insurance but that pt's insurance is stating they are in contract with [facility] so this worker is waiting for call back from [facility] to confirm. SW informed pt and guest that if [facility] is not able to accept, the other options are in [facility] and [facility]. Pt's son states that those are no an option and asked about [facility]. SW informed pt and guest that per PT/OT notes yesterday, pt was assist of 4 so 4 people would need to be available 16/09 to assist. SW explained that RN through [facility] would only be out 1x a week and PT/OT would only be out 2-3 times a week. Pt's son states that if [facility] is not able to accept then he would talk to his brother about options. SW informed pt and guest that this worker will keep them updated once this worker hears back from [facility]. Pt's son states that if pt does go home pt will need to be set up with a Bipap. Pt's son states that pt has a sleep study but states pt will need a Bipap now. Pt's son states that pt has been approved for a CPAP at home already. SW to continue to follow. Original Note: Social Work Note SW placed a call to [facility] and left message for Usha in admissions. Per previous notes, pt's insurance had called Usha to let her know that [facility] is in network. SW attempted to meet with pt and update, Pt currently working with PT/OT. SW will attempt to meet with pt to discuss options. Plan: SNF pending acceptance and pre-cert Victorina Dickerson ULTRASONIC CLEANER, RECLAMATION WORKER
[2021-08-07] MEDS: Insulin Lispro 100 UNIT/ML INSULN.PEN SC ×2 (11:14→21:54)
[2021-08-07 11:20] LABS: Bedside Glucose 157 mg/dL (74-106)
--- NOTE | 2021-08-07 12:08 | CHAPLAIN ---
Type of Pastoral Visit ___ Initial Visit _x__ Follow-up Visit ___ On-call Visit ___ General Patient Visit ___ Spiritual Assessment ___ Family Conference ___ Bereavement ___ Rapid Response ___ Code Blue ___ Other (describe below) Pastoral Care Referral From _x__ Patient ___ Family ___ Nurse ___ Physician ___ Baggage Security Checker ___ Horticultural Farmworker ___ Other (describe below) Sacrament/Intervention _x__ Active listening ___ Anointing ___ Holiness ___ Bereavement ___ Communion ___ Berkley exploration ___ ___ Life review _x__ Prayer ___ Reconciliation ___ Sacrament of Sick _x__ Supportive presence ___ Wedding ___ Other (describe below) Pastoral Comments patient is awake and alert with family members in the room; introduced self to patient as last time she was unable to communicate; pt welcomes card painter and spiritual care, prayer, and presence; pt states goal and hope is get well again; family offers support and also express thankfulness for assistance
--- NOTE | 2021-08-07 14:33 | CASEMGMT ---
Social Work Note SW placed another call to [facility] and asked to speak to DON or Room Service Clerk regarding referral. SW transferred to a voicemail. SW left message requesting call back regarding referral. Victorina Dickerson BIG 6 DEALER, SCIENTIFIC INVESTIGATOR
[2021-08-07 16:40] LABS: Bedside Glucose 120 mg/dL (74-106)
--- NOTE | 2021-08-07 16:49 | PN.HOSP_ITS ---
Subjective Subjective Patient was seen and examined this morning, she does not appear short of breath, she was on BiPAP at the time my examination due to sleep. Later today, patient was on 2 L via nasal cannula and appeared stable. We are currently awaiting acceptance of a nursing home facility for the patient. Objective Data Objective Data Vital Signs: Vital Signs Temp Pulse Resp BP Pulse Ox 98.8 F 78 16 151/77 H 98 08/07/21 16:33 08/07/21 16:33 08/07/21 16:33 08/07/21 16:33 08/07/21 16:33 Oxygen Flow Rate (L/min) 2 Oxygen Delivery Method Nasal Cannula Weight: 215 kg Body Mass Index (BMI) 72.1 Intake & Output: Intake and Output for Last 24 Hours 08/05/21 08/06/21 08/07/21 23:59 23:59 23:59 Intake Total 1010 / 1010 1170 / 1170 360 / 360 Output Total 650 / 850 1500 / 1500 700 / 700 Balance 360 / 160 -330 / -330 -340 / -340 Lab / Micro Data Result Diagrams: 08/07/21 05:47 08/05/21 05:23 Labs: Laboratory Results - last 24 hr 08/06/21 16:48: POC Glucose 140 H 08/06/21 21:08: POC Glucose 157 H 08/07/21 05:47: Hgb 7.6 L, Hct 29.4 L 08/07/21 06:41: POC Glucose 109 H 08/07/21 11:12: POC Glucose 157 H 08/07/21 16:29: POC Glucose 120 H Micro: Microbiology 08/01/21 10:47 Blood Culture (Wb) - Anticubital Right Blood Culture - Final No growth in 5 days. 08/01/21 10:31 Blood Culture (Wb) - Left Hand Blood Culture - Final No growth in 5 days. 08/01/21 19:01 Stool Stool Occult Blood (CORINNE) - Final Physical Exam Const alert, oriented x3 and no apparent distress General Appearance: cooperative, well kempt and well developed Orientation / Consciousness: awake, oriented to person, oriented to place and oriented to time Nutritional Appearance: morbidly obese HEENT normocephalic, head/scalp atraumatic and moist oral mucous membranes Head and Scalp: normocephalic Eyes PERRL, EOMs intact bilaterally and conjunctivae normal Neck nuchal rigidity, supple, no JVD, thyroid normal and no carotid bruits General: trachea midline Resp normal respiratory effort, no retractions, no use of accessory muscles and clear to auscultation bilaterally Auscultation: Negative for rales, rhonchi or wheezes Cardio regular rate, regular rhythm, no murmurs, no rub and no gallops GI normal to inspection, nondistended, normoactive bowel sounds, soft to palpation, non-tender and non-distended Extremity Extremity Narrative: Patient has chronic lymphedematous changes to both lower legs, there is no evidence of cyanosis Skin no rashes or lesions noted General Skin Exam: no breakdown Neuro oriented x3, CN's II-XII intact bilaterally, no focal motor deficits and no sensory deficits noted Sensorium / Orientation: awake and alert Speech: speech normal Psych affect normal Assessment & Plan Assessment/Plan (1) Obesity hypoventilation syndrome: (2) Iron deficiency anemia: PLAN: 1. Acute on chronic iron deficiency anemia-patient's hemoglobin today was 7.6, it appears to be stable over the last several days. Patient is o n oral iron supplementation at this #2 generalized debility secondary to morbid obesity and multiple medical problems including chronic hypoxic and hypercapnic respiratory failure secondary to hypoventilation syndrome-PT and OT will continue to see the patient, she will need short-term placement in nursing home facility #3 type 2 diabetes-continue sliding scale insulin and fingerstick blood sugars #4 essential hypertension-patient is stable on no chronic hypertensive medications at this time, blood pressure will be monitored #5 chronic depression-patient is on Zoloft #6 acute kidney injury-resolved at this time #7 gastritis-patient is on Protonix twice daily #8 chronic combined respiratory failure secondary to obesity hypoventilation syndrome-patient is currently on nasal cannula oxygen and AVAPS at night and when sleeping. Charges/Coding Visit Charges Inpatient E&M: 87714 Subs Hosp L2
[2021-08-07] MEDS: LORazepam 1 MG Tablet PO (21:54)
[2021-08-08] VITALS (9 sets, daily range): BP systolic 136–158; BP diastolic 67–83; PULSE 74–82; RESP 15–22; TEMP 36.1–36.9; O2SAT 95–100
[2021-08-08 00:01] LABS: Bedside Glucose 167 mg/dL (74-106)
[2021-08-08] MEDS: Nystatin Powder 15gm Bottle 1 APPLIC TOPICAL ×3 (06:59→22:06)
[2021-08-08 07:05] LABS: Bedside Glucose 116 mg/dL (74-106)
--- NOTE | 2021-08-08 08:00 | CASEMGMT ---
CHRISTINA received a voice mail from Dasha with [employer]. Dasha said that the navigation team spoke with [facility] and patient's weight is not an issue for them as they have all the appropriate equipment. The phone number is: [phone] and fax number is: [phone]. Toya SIERRA
[2021-08-08] MEDS: Ferrous Sulfate 325 MG Tablet PO ×2 (08:47→17:34)
[2021-08-08] MEDS: Sertraline 100 MG Tablet PO (08:47)
[2021-08-08] MEDS: Furosemide 40 MG Tablet PO (08:47)
[2021-08-08] MEDS: Magnesium Chloride 64 MG Delay Rel.Tablet 128 MG PO (08:47)
[2021-08-08] MEDS: Pantoprazole Sodium 40 MG Tablet PO ×2 (08:47→22:07)
--- NOTE | 2021-08-08 08:54 | NURSING ---
pt placed on BIPAP per pt request so she can take a nap.
--- NOTE | 2021-08-08 09:08 | CASEMGMT ---
Addendum entered by Felicia Bettencourt 08/08/21 09:12: Usha from [facility] called back. [facility] is denying patient do to change in staffing and can no longer work with the weight limit. Talked to Toya VASQUEZ and she will talk with family to find out other options. Original Note: Discharge Handcrew Foreman Called [facility]. Talked to Charu ALANIZ. Charu will let Usha watson know to call me back. If I do not hear back in about 45 minutes the CORBIN wants me to call her back. Will continue to follow up to see if [facility] can take her. Felicia Bettencourt Discharge Handcrew Foreman
--- NOTE | 2021-08-08 09:30 | CASEMGMT ---
Addendum entered by Toya Brown 08/08/21 11:28: [facility] is not taking patients right now as they have now opened a COVID unit. oTya SIERRA Original Note: Physician spoke with patient and her son Ross regarding the need for a correction and it will be further away due to patient's insurance and weight. Both verbalized understanding per physician. Felicia d/pasha vp strategic planning will work on referrals to [facility] and [facility]. Toya SIERRA
--- NOTE | 2021-08-08 10:07 | CASEMGMT ---
Discharge Customer Marketing Manager Faxed over referral to [facility]. Will follow up. Felicia Bettencourt Discharge Customer Marketing Manager
[2021-08-08] MEDS: busPIRone 5 MG Tablet 10 MG PO ×3 (10:46→22:07)
[2021-08-08] MEDS: Acetaminophen 325 MG Tablet 650 MG PO (10:46)
[2021-08-08] MEDS: Sertraline 50 MG Tablet PO (10:46)
--- NOTE | 2021-08-08 11:29 | CASEMGMT ---
CHRISTINA called Dasha at [facility] back and let her know CHRISTINA did get her voice mail about [facility]. CHRISTINA told her a referral was sent and we are waiting to hear back. CHRISTINA also told her that CHRISTINA did try [facility], but they are not taking patient's right now as they have opened a COVID unit. CHRISTINA asked Dasha if there were any other facilities that are closer to this area and she said unfortunately not. Dasha said it is hard to find a facility that takes patients over 300lbs. CHRISTINA told Dasha VASQUEZ will let her know if [facility] is not able to take patient. Toya Brown CONTRACT ATTORNEY SEWER DIGGER
[2021-08-08 12:41] LABS: Bedside Glucose 104 mg/dL (74-106)
--- NOTE | 2021-08-08 13:06 | CASEMGMT ---
Discharge Boiling Off Winder Called Deridre at [facility] checking up on the status of the referral. Left a voicemail. Will follow up. Felicia Bettencourt Discharge Boiling Off Winder
--- NOTE | 2021-08-08 13:33 | CASEMGMT ---
Discharge Tank Calibrator Deirdre called from [facility]. Patient has been declined due to her max assist. facility does not have the staff for it. Notified CHRISTINA Pittman. Felicia Bettencourt Discharge Tank Calibrator
--- NOTE | 2021-08-08 14:08 | CASEMGMT ---
CHRISTINA called Dasha at [facility] and let her know [facility] [place] has declined patient. She will have her staff look for more facilities. CHRISTINA asked Dasha if they ever do one time contracts with out of network facilities. Dasha said they do and if CHRISTINA finds a place to notify her and she will expedite things. CHRISTINA and d/c estate planning paralegal Felicia began calling local facilities. [facility] declined as they do not have staffing and [facility] said no as they do not have staffing. CHRISTINA sent an e-mail to Leticia at [facility] and Felicia sent a referral to [facility]. Await responses. CHRISTINA spoke with patient and her son Ross. CHRISTINA let them know above information and that CHRISTINA will updated them when CHRISTINA has any updates. Toya Brown VICE PRESIDENT REGULATORY MARIELA
--- NOTE | 2021-08-08 14:34 | CASEMGMT ---
CHRISTINA called Sindy at [facility] regarding patient. She told CHRISTINA to fax the referral and they will review it. CHRISTINA notified Felicia D/C merchandise planning manager. Toya SIERRA
[2021-08-08 17:11] LABS: Bedside Glucose 112 mg/dL (74-106)
--- NOTE | 2021-08-08 20:09 | PCM.PN.HOSP ---
Subjective Subjective Patient was seen and examined today, we received refusals from several nursing homes today and are unable to place the patient in a penitentiary facility at this time, I talked at length with the patient's son and the patient herself and explained that I feel she needs inpatient penitentiary services, patient agreed today and did not appear upset. I have increased the patient's Zoloft and placed her on BuSpar for anxiety. Patient appears stable at this time and she is wearing nasal cannula oxygen and does not appear to be in any respiratory distress. Objective Data Objective Data Vital Signs: Vital Signs Temp Pulse Resp BP Pulse Ox FiO2 97.9 F 80 18 152/83 H 97 30 08/08/21 14:35 08/08/21 14:35 08/08/21 14:35 08/08/21 14:35 08/08/21 14:35 08/08/21 05:57 Oxygen Flow Rate (L/min) 2 Oxygen Delivery Method Nasal Cannula Weight: 215 kg Body Mass Index (BMI) 72.1 Intake & Output: Intake and Output for Last 24 Hours 08/06/21 08/07/21 08/08/21 23:59 23:59 23:59 Intake Total 1170 / 1170 840 / 1440 960 / 960 Output Total 1500 / 1500 1250 / 1650 1250 / 1250 Balance -330 / -330 -410 / -210 -290 / -290 Lab / Micro Data Result Diagrams: 08/07/21 05:47 08/05/21 05:23 Labs: Laboratory Results - last 24 hr 08/07/21 21:48: POC Glucose 167 H 08/08/21 06:58: POC Glucose 116 H 08/08/21 12:13: POC Glucose 104 08/08/21 16:54: POC Glucose 112 H Micro: Microbiology 08/01/21 10:47 Blood Culture (Wb) - Anticubital Right Blood Culture - Final No growth in 5 days. 08/01/21 10:31 Blood Culture (Wb) - Left Hand Blood Culture - Final No growth in 5 days. 08/01/21 19:01 Stool Stool Occult Blood (CORINNE) - Final Physical Exam Narrative alert, oriented x3 and no apparent distress General Appearance: cooperative, well kempt and well developed Orientation / Consciousness: awake, oriented to person, oriented to place and oriented to time Nutritional Appearance: morbidly obese HEENT normocephalic, head/scalp atraumatic and moist oral mucous membranes Head and Scalp: normocephalic Eyes PERRL, EOMs intact bilaterally and conjunctivae normal Neck nuchal rigidity, supple, no JVD, thyroid normal and no carotid bruits General: trachea midline Resp normal respiratory effort, no retractions, no use of accessory muscles and clear to auscultation bilaterally Auscultation: Negative for rales, rhonchi or wheezes Cardio regular rate, regular rhythm, no murmurs, no rub and no gallops GI normal to inspection, nondistended, normoactive bowel sounds, soft to palpation, non-tender and non-distended Extremity Extremity Narrative: Patient has chronic lymphedematous changes to both lower legs, there is no evidence of cyanosis Skin no rashes or lesions noted General Skin Exam: no breakdown Neuro oriented x3, CN's II-XII intact bilaterally, no focal motor deficits and no sensory deficits noted Sensorium / Orientation: awake and alert Speech: speech normal Psych affect normal Assessment & Plan Assessment/Plan (1) Obesity hypoventilation syndrome: (2) Iron deficiency anemia: PLAN: Plan 1. Acute on chronic iron deficiency anemia-continue oral iron supplementation #2 generalized debility secondary to morbid obesity and multiple medical problems including chronic hypoxic and hypercapnic respiratory failure secondary to hypoventilation syndrome-PT and OT will continue to see the patient, she will need short-term placement in penitentiary facility #3 type 2 diabetes-continue sliding scale insulin and fingerstick blood sugars #4 essential hypertension-patient is stable on no chronic hypertensive medications at this time, blood pressure will be monitored #5 chronic depression-patient is on Zoloft-I have elected to increase to 150 mg daily #6 acute kidney injury-resolved at this time #7 gastritis-patient is on Protonix twice daily #8 chronic combined respiratory failure secondary to obesity hypoventilation syndrome-patient is currently on nasal cannula oxygen and AVAPS at night and when sleeping. Family and patient understands that she will need to continue this when she is discharge from a penitentiary facility, they understand that the nursing facility will have to make arrangements for this to be placed in the patient's home before she is discharged home from [facility]. Charges/Coding Visit Charges Inpatient E&M: 89756 Subs Hosp L2
[2021-08-08] MEDS: LORazepam 1 MG Tablet PO (22:07)
[2021-08-08 22:35] LABS: Bedside Glucose 136 mg/dL (74-106)
[2021-08-09] VITALS (7 sets, daily range): BP systolic 136–149; BP diastolic 66–78; PULSE 74–80; RESP 15–25; TEMP 36.7–37.1; O2SAT 91–100
[2021-08-09] MEDS: Acetaminophen 325 MG Tablet 650 MG PO ×4 (02:22→22:00)
[2021-08-09] MEDS: busPIRone 5 MG Tablet 10 MG PO ×3 (05:59→22:00)
[2021-08-09] MEDS: Nystatin Powder 15gm Bottle 1 APPLIC TOPICAL ×3 (06:00→22:01)
[2021-08-09 07:06] LABS: Bedside Glucose 118 mg/dL (74-106)
[2021-08-09] MEDS: Furosemide 40 MG Tablet PO (07:54)
[2021-08-09] MEDS: Ferrous Sulfate 325 MG Tablet PO ×2 (07:54→17:24)
[2021-08-09] MEDS: Pantoprazole Sodium 40 MG Tablet PO ×2 (07:54→22:00)
[2021-08-09] MEDS: Magnesium Chloride 64 MG Delay Rel.Tablet 128 MG PO (07:54)
[2021-08-09] MEDS: Sertraline 100 MG Tablet 150 MG PO (07:55)
--- NOTE | 2021-08-09 09:25 | PCM.PN.HOSP ---
Documented by User: AMERICA Richardson 08/09/21 09:38 Subjective Subjective Patient seen and examined. Patient lying in bed no distress noted. Discussed with patient plan of care and social work and case management continued efforts to get patient placed at a nursing facility. Patient verbalized understanding and agreement that patient needs to go to assisted facility awaiting word from case management. Objective Data Objective Data Vital Signs: Vital Signs Temp Pulse Resp BP Pulse Ox FiO2 98.8 F 78 18 149/66 H 97 25 08/09/21 03:39 08/09/21 03:39 08/09/21 03:39 08/09/21 03:39 08/09/21 03:39 08/09/21 01:15 Oxygen Flow Rate (L/min) 2 Oxygen Delivery Method Nasal Cannula Weight: 473 lb 15.901 oz Body Mass Index (BMI) 72.1 Intake & Output: Intake and Output for Last 24 Hours 08/07/21 08/08/21 08/09/21 23:59 23:59 23:59 Intake Total 840 / 1440 1200 / 1200 240 / 240 Output Total 1250 / 1650 1950 / 1950 675 / 675 Balance -410 / -210 -750 / -750 -435 / -435 Lab / Micro Data Result Diagrams: 08/07/21 05:47 08/05/21 05:23 Labs: Laboratory Results - last 24 hr 08/08/21 12:13: POC Glucose 104 08/08/21 16:54: POC Glucose 112 H 08/08/21 22:04: POC Glucose 136 H 08/09/21 06:02: POC Glucose 118 H Micro: Microbiology 08/01/21 10:47 Blood Culture (Wb) - Anticubital Right Blood Culture - Final No growth in 5 days. 08/01/21 10:31 Blood Culture (Wb) - Left Hand Blood Culture - Final No growth in 5 days. 08/01/21 19:01 Stool Stool Occult Blood (CORINNE) - Final Physical Exam Const alert, oriented x3 and no apparent distress General Appearance: cooperative, comfortable and well kempt Orientation / Consciousness: awake Exam Limitations: no limitations Nutritional Appearance: morbidly obese HEENT normocephalic, head/scalp atraumatic, hearing grossly normal bilaterally and moist oral mucous membranes Eyes conjunctivae normal and no scleral icterus Neck no lymphadenopathy and supple General: trachea midline Resp normal respiratory effort, no retractions, no use of accessory muscles and clear to auscultation bilaterally Effort and Inspection: able to speak in complete sentences and symmetric chest movement Cardio regular rate, regular rhythm, S1 normal heart sound and S2 normal heart sound Peripheral Pulses: pulses 2+ throughout GI normal to inspection, nondistended, normoactive bowel sounds, soft to palpation and non-tender GI Narrative: Large pannus Extremity normal to inspection and full ROM Extremity Narrative: Patient has chronic lymphedematous changes to both lower legs, there is no evidence of cyanosis Skin no rashes or lesions noted, skin turgor normal, no jaundice, no petechiae and no mottling Skin Narrative: Patient has 2 friction ulcerations of her left upper inner thigh Neuro oriented x3, moves all extremities, no focal motor deficits and no sensory deficits noted Sensorium / Orientation: awake and alert Speech: speech normal Motor Exam: general weakness Psych affect normal Assessment & Plan Assessment/Plan (1) Obesity hypoventilation syndrome: (2) Iron deficiency anemia: PLAN: Plan 1. Acute on chronic iron deficiency anemia -continue oral iron supplementation 2. Generalized debility -PT and OT following -Awaiting placement at assisted facility -Case management following 3. Diabetes mellitus type 2 -ACH S blood sugars with sliding scale insulin ordered 4. Essential hypertension -Blood pressure currently stable -Vital signs per protocol 5. Chronic depression -Continue Zoloft 6. Gastritis -Continue Protonix twice daily 7. Chronic combined respiratory failure secondary to obesity hypoventilation syndrome -Continue nasal cannula oxygen and AVAPS at night and when sleeping. -Family and patient understands that she will need to continue this when she is discharge from a assisted facility DVT prophylaxis-no pharmacological prophylaxis at this time This patient was seen by Terrie Hale NP-C under the supervision of Dr. Pizarro. 13 minutes spent in clinical coordination of patient's plan of care. Documented by User: Dr. Jim Pizarro DO 08/09/21 20:04 Objective Data Lab / Micro Data Result Diagrams: 08/07/21 05:47 08/05/21 05:23 Assessment & Plan Assessment/Plan (1) Obesity hypoventilation syndrome: (2) Iron deficiency anemia: Charges/Coding Addendum Addendum: Patient was seen and examined today independently of Casi Hale, we have been unable to locate a assisted facility to take the patient at this time. Patient is on nasal cannula oxygen appears comfortable. On examination she appeared in good health and spirits, she does not appear to be in any distress. Patient is morbidly obese. Vital signs as documented. Skin warm and dry and without overt rashes. Neck without JVD, thyroid appears normal, trachea is midline, neck is supple. Lungs clear, normal air movement was noted. Heart exam notable for regular rhythm, normal sounds and absence of murmurs, rubs or gallops. Abdomen unremarkable and without evidence of organomegaly, masses, or abdominal aortic enlargement, bowel sounds are present in all 4 quadrants, no abdominal tenderness was noted. Extremities nonedematous, no cyanosis was noted, no clubbing was noted. Neuro: Cranial nerves II through XII are grossly intact, no focal motor deficits were noted, sensation to light touch and pinprick is intact, motor exam 5/5 throughout. Psych: Patient is alert and oriented x3, she does not appear anxious or depressed, she does not appear agitated. 1.? Acute on chronic iron deficiency anemia-continue oral iron supplementation #2 generalized debility secondary to morbid obesity and multiple medical problems including chronic hypoxic and hypercapnic respiratory failure secondary to hypoventilation syndrome-PT and OT will continue to see the patient, she will need short-term placement in assisted facility #3 type 2 diabetes-continue sliding scale insulin and fingerstick blood sugars #4 essential hypertension-patient is stable on no chronic hypertensive medications at this time, blood pressure will be monitored #5 chronic depression-patient is on Zoloft #6 acute kidney injury-resolved at this time #7 gastritis-patient is on Protonix twice daily #8 chronic combined respiratory failure secondary to obesity hypoventilation syndrome-patient is currently on nasal cannula oxygen and AVAPS at night and when sleeping.? Family and patient understands that she will need to continue this when she is discharge from a assisted facility, they understand that the nursing facility will have to make arrangements for this to be placed in the patient's home before she is discharged home from half-way. I have reviewed Casi Hale's progress note including her medical assessment and plan of care and with the above additions endorse it. Total clinical time spent by myself addressing the patient's medical issues, reviewing the data, and collaborating with patient's care team: 20 minutes Visit Charges Inpatient E&M: 10775 Subs Hosp L2
--- NOTE | 2021-08-09 09:44 | CASEMGMT ---
CHRISTINA had a voice mail from Sindy at [facility] requesting a return call. CHRISTINA called Sindy back. Sindy said she spoke with insurance and she was told patient does not have out of network benefits. CHRISTINA let Sindy know that CHRISTINA will call CHRISTINA's contact at [employer], Dasha. CHRISTINA will get back with Sindy. CHRISTINA called Dasha at [employer] and she was in a meeting. CHRISTINA did leave a detailed message with the office receptionist and she will have Dasha call CHRISTINA back. CHRISTINA then called Sindy back and left her a voice mail. Toya Brown WEIGHT YARDAGE CHECKER MARIELA
--- NOTE | 2021-08-09 11:17 | CASEMGMT ---
CHRISTINA received a return call from Dasha at [facility]. Dasha gave CHRISTINA the names and phone numbers of 7 facilities for CHRISTINA to make referrals to. Dasha said she also sent the information to the necessary people to try and get [facility] approved. Dasha advised that it would help in getting [facility] approved if CHRISTINA did send referrals to all 7 of the facilities and if they all declined. The 7 facilities are: [facility] in [place], [facility], [facility], [facility], [facility], [facility], and [facility]. CHRISTINA called [facility] and left a voice mail with admission as well as faxed referral. CHRISTINA also called [facility] and left message with admissions and faxed referral. CHRISTINA will continue to work on the other facilities. Toya SIERRA
[2021-08-09 11:50] LABS: Bedside Glucose 107 mg/dL (74-106)
--- NOTE | 2021-08-09 13:12 | CASEMGMT ---
SW called [facility] regarding referral. SW also faxed referral. SW called [facility] and spoke with admissions regarding referral. SW was told they cannot accommodate patient due to her weight and needed assistance. SW called [facility] and was told they cannot accommodate patient due to her weight and needed assistance. SW called [facility] 2 times and there was never any answer. SW called [facility] back regarding referral and they did not get the referral. SW asked if they have a weight limit and SW told them about patient. SW was told they would not be able to accommodate patient. SW asked them about [facility] and was told it is closed. SW called [facility] and left another message regarding referral. SW then received a call from [facility] and answered her questions. She said she will get back to . As of now out of the 7 facilities insurance gave SW there are 4 no's, waiting on phone call from 2 facilities, and 1 facility that does not answer their phone. CHRISTINA will await responses from those to facilities and continue to try and talk with someone at [facility]. CHRISTINA did call Sindy from [facility] and update her. Toya Brown BUSINESS REPORTING DEVELOPER MARIELA
--- NOTE | 2021-08-09 14:50 | CASEMGMT ---
CHRISTINA called [facility] and Dasha was in a meeting so CHRISTINA spoke with Alona. CHRISTINA updated Alona on what CHRISTINA heard from each of the facilities Dasha gave CHRISTINA. Alona took down this information and will have Dasha call CHRISTINA back. Toya Brown BUILDING ESTIMATOR MARIELA
[2021-08-09 16:41] LABS: Bedside Glucose 138 mg/dL (74-106)
[2021-08-09] MEDS: Insulin Lispro 100 UNIT/ML INSULN.PEN SC (21:59)
[2021-08-09] MEDS: LORazepam 1 MG Tablet PO (22:01)
[2021-08-09 22:20] LABS: Bedside Glucose 172 mg/dL (74-106)
[2021-08-10] VITALS (10 sets, daily range): BP systolic 130–159; BP diastolic 65–83; PULSE 66–88; RESP 15–30; TEMP 35.8–36.7; O2SAT 91–96
[2021-08-10] MEDS: Nystatin Powder 15gm Bottle 1 APPLIC TOPICAL ×3 (04:52→22:05)
[2021-08-10] MEDS: busPIRone 5 MG Tablet 10 MG PO ×3 (04:52→21:10)
[2021-08-10] MEDS: Acetaminophen 325 MG Tablet 650 MG PO ×2 (06:20→13:57)
[2021-08-10 06:40] LABS: Bedside Glucose 105 mg/dL (74-106)
--- NOTE | 2021-08-10 09:03 | CASEMGMT ---
CHRISTINA spoke with Sindy at [facility] and they can clinically accept patient, but they will need something in writing from insurance stating that they will get paid. When Sindy called insurance she was told patient does not have out of network benefits. CHRISTINA called Dasha at [facility]. Dasha said she will try and escalate patient's case so patient can go to [facility]. Dasha is also sending the request to her packing house supervisor. CHRISTINA let Dasha know that patient has been ready for discharge since last Friday so if this could get processed today that would be helpful. Dasha will be in touch with CHRISTINA. CHRISTINA faxed PT/OT to Dasha per her request. Toya Brown MSW MARIELA
[2021-08-10] MEDS: Pantoprazole Sodium 40 MG Tablet PO ×2 (10:02→21:10)
[2021-08-10] MEDS: Ferrous Sulfate 325 MG Tablet PO ×2 (10:02→16:51)
[2021-08-10] MEDS: Ascorbic Acid 500 MG Tablet PO ×2 (10:02→16:51)
[2021-08-10] MEDS: Sertraline 100 MG Tablet 150 MG PO (10:02)
[2021-08-10] MEDS: Magnesium Chloride 64 MG Delay Rel.Tablet 128 MG PO (10:02)
[2021-08-10] MEDS: Furosemide 40 MG Tablet PO (10:02)
--- NOTE | 2021-08-10 10:29 | PCM.PN.HOSP ---
Documented by User: AMERICA Richardson 08/10/21 10:37 Subjective Subjective Patient seen and examined. Patient lying in bed no distress noted. Objective Data Objective Data Vital Signs: Vital Signs Temp Pulse Resp BP Pulse Ox FiO2 97.9 F 75 30 H 139/65 H 96 25 08/10/21 03:12 08/10/21 05:02 08/10/21 05:02 08/10/21 03:12 08/10/21 07:23 08/10/21 05:02 Oxygen Flow Rate (L/min) 2 Oxygen Delivery Method Nasal Cannula Weight: 473 lb 15.901 oz Body Mass Index (BMI) 72.1 Intake & Output: Intake and Output for Last 24 Hours 08/08/21 08/09/21 08/10/21 23:59 23:59 23:59 Intake Total 1200 / 1200 960 / 960 0 / 0 Output Total 1950 / 1950 1425 / 1425 0 / 0 Balance -750 / -750 -465 / -465 0 / 0 Lab / Micro Data Result Diagrams: 08/07/21 05:47 08/05/21 05:23 Labs: Laboratory Results - last 24 hr 08/09/21 11:41: POC Glucose 107 H 08/09/21 16:33: POC Glucose 138 H 08/09/21 21:52: POC Glucose 172 H 08/10/21 06:19: POC Glucose 105 Micro: Microbiology 08/01/21 10:47 Blood Culture (Wb) - Anticubital Right Blood Culture - Final No growth in 5 days. 08/01/21 10:31 Blood Culture (Wb) - Left Hand Blood Culture - Final No growth in 5 days. 08/01/21 19:01 Stool Stool Occult Blood (CORINNE) - Final Physical Exam Const alert, oriented x3 and no apparent distress General Appearance: cooperative, comfortable, well kempt and well developed Orientation / Consciousness: awake, oriented to person, oriented to place and oriented to time Exam Limitations: no limitations Nutritional Appearance: morbidly obese HEENT normocephalic, head/scalp atraumatic and moist oral mucous membranes Eyes conjunctivae normal and no scleral icterus Neck no lymphadenopathy, supple and thyroid normal General: trachea midline Resp normal respiratory effort and clear to auscultation bilaterally Effort and Inspection: able to speak in complete sentences and symmetric chest movement Cardio regular rate, regular rhythm, S1 normal heart sound and S2 normal heart sound Peripheral Pulses: pulses 2+ throughout GI normal to inspection, nondistended, normoactive bowel sounds, soft to palpation and non-tender GI Narrative: Large pannus Extremity normal to inspection and full ROM Extremity Narrative: Patient has chronic lymphedematous changes to both lower legs, there is no evidence of cyanosis Skin no rashes or lesions noted, skin turgor normal, no jaundice, no petechiae and no mottling Skin Narrative: Patient has 2 friction ulcerations of her left upper inner thigh Neuro oriented x3, moves all extremities, no focal motor deficits and no sensory deficits noted Neuro Narrative: Generalized weakness but no focal deficits Sensorium / Orientation: awake and alert Speech: speech normal Motor Exam: strength 5/5 throughout and general weakness Psych affect normal Assessment & Plan Assessment/Plan (1) Obesity hypoventilation syndrome: (2) Iron deficiency anemia: PLAN: Plan 1. Acute on chronic iron deficiency anemia -continue oral iron supplementation 2. Generalized debility -PT and OT following -Awaiting placement at prison facility -Case management following, accepting facility [facility] however we are waiting for insurance approval as this is an out of network facility 3. Diabetes mellitus type 2 -ACH S blood sugars with sliding scale insulin ordered 4. Essential hypertension -Blood pressure currently stable -Vital signs per protocol 5. Chronic depression -Continue Zoloft 6. Gastritis -Continue Protonix twice daily 7. Chronic combined respiratory failure secondary to obesity hypoventilation syndrome -Continue nasal cannula oxygen and AVAPS at night and when sleeping. -Family and patient understands that she will need to continue this when she is discharge from a prison facility DVT prophylaxis-no pharmacological prophylaxis at this time This patient was seen by Terrie Hale NP-C under the supervision of Dr. Garcia. 12 minutes spent in clinical coordination of patient's plan of care. Documented by User: Dr. Logan Garcia MD 08/10/21 12:46 Objective Data Lab / Micro Data Result Diagrams: 08/07/21 05:47 08/05/21 05:23 Assessment & Plan Assessment/Plan (1) Obesity hypoventilation syndrome: (2) Iron deficiency anemia: Charges/Coding Addendum Addendum: Addendum: Dr. Garcia I personally examined the patient and reviewed the chart. I agree with the above. 60-year-old female presented to the hospital with weakness and debility. She was found to have acute on chronic iron deficiency anemia and was started on iron replacement with infusions. She is undergoing PT and OT however we are struggling in finding a facility that can take her. She does have an accepting facility however they are outside of network so we are waiting for insurance approval. We will continue to monitor and adjust her insulin for her blood sugars. Otherwise her other medical history appears to be stable at this time. Clinical time spent in all aspects of patient care: 18 minutes Visit Charges Inpatient E&M: 82022 Subs Hosp L2
[2021-08-10 11:40] LABS: Bedside Glucose 135 mg/dL (74-106)
--- NOTE | 2021-08-10 13:30 | CASEMGMT ---
CHRISTINA called Dasha at [facility]. Dasha said that insurance will likely approve [facility]. However, it will be a couple of days before patient can go as they need to work out a contract with [facility]. CHRISTINA notified physician, patient, patient's significant other, and son Ross by phone. All in agreement with discharge plan. Plan: d/c to [facility] pending insurance approval and insurance working out a contract with [facility]. Toya Brown HIDE COOKING OPERATOR MARIELA
[2021-08-10 17:15] LABS: Bedside Glucose 125 mg/dL (74-106)
--- NOTE | 2021-08-10 17:32 | NURSING ---
patient care assumed by this RN at 1500 08/10/21 from previous RN
[2021-08-10] MEDS: oxyCODONE 5 MG Tablet PO (20:48)
[2021-08-10] MEDS: Insulin Lispro 100 UNIT/ML INSULN.PEN SC (22:03)
[2021-08-11] VITALS (8 sets, daily range): BP systolic 143–159; BP diastolic 74–80; PULSE 78–88; RESP 15–21; TEMP 35.6–36.9; O2SAT 94–98
[2021-08-11 00:06] LABS: Bedside Glucose 165 mg/dL (74-106)
[2021-08-11] MEDS: Nystatin Powder 15gm Bottle 1 APPLIC TOPICAL ×3 (06:35→21:30)
[2021-08-11] MEDS: busPIRone 5 MG Tablet 10 MG PO ×3 (06:35→21:30)
[2021-08-11 07:01] LABS: Bedside Glucose 116 mg/dL (74-106)
[2021-08-11] MEDS: Furosemide 40 MG Tablet PO (09:05)
[2021-08-11] MEDS: Magnesium Chloride 64 MG Delay Rel.Tablet 128 MG PO (09:05)
[2021-08-11] MEDS: Ferrous Sulfate 325 MG Tablet PO ×2 (09:05→17:19)
[2021-08-11] MEDS: Pantoprazole Sodium 40 MG Tablet PO ×2 (09:05→21:30)
[2021-08-11] MEDS: Ascorbic Acid 500 MG Tablet PO ×2 (09:05→17:19)
[2021-08-11] MEDS: Sertraline 100 MG Tablet 150 MG PO (09:05)
--- NOTE | 2021-08-11 11:17 | PCM.PN.HOSP ---
Documented by User: Terrie Hale NP-Edgard 08/11/21 11:19 Subjective Subjective Patient seen and examined. Discussed with patient that we are waiting on insurance to approve [facility] as [facility] have [facility] patient. Patient voiced understanding. Objective Data Objective Data Vital Signs: Vital Signs Temp Pulse Resp BP Pulse Ox FiO2 97.8 F 87 20 H 159/74 H 94 28 08/11/21 09:05 08/11/21 09:37 08/11/21 09:37 08/11/21 09:05 08/11/21 09:37 08/11/21 09:37 Oxygen Flow Rate (L/min) 2 Oxygen Delivery Method Nasal Cannula Weight: 473 lb 15.901 oz Body Mass Index (BMI) 72.1 Intake & Output: Intake and Output for Last 24 Hours 08/09/21 08/10/21 08/11/21 23:59 23:59 23:59 Intake Total 960 / 960 420 / 420 Output Total 1425 / 1425 500 / 500 400 / 400 Balance -465 / -465 -80 / -80 -400 / -400 Lab / Micro Data Result Diagrams: 08/07/21 05:47 08/05/21 05:23 Labs: Laboratory Results - last 24 hr 08/10/21 11:36: POC Glucose 135 H 08/10/21 16:50: POC Glucose 125 H 08/10/21 22:02: POC Glucose 165 H 08/11/21 06:31: POC Glucose 116 H Micro: Microbiology 08/01/21 10:47 Blood Culture (Wb) - Anticubital Right Blood Culture - Final No growth in 5 days. 08/01/21 10:31 Blood Culture (Wb) - Left Hand Blood Culture - Final No growth in 5 days. 08/01/21 19:01 Stool Stool Occult Blood (CORINNE) - Final Physical Exam Const alert, oriented x3 and no apparent distress General Appearance: cooperative, comfortable, well kempt and well developed Orientation / Consciousness: awake, oriented to person, oriented to place and oriented to time Exam Limitations: no limitations Nutritional Appearance: morbidly obese HEENT normocephalic, head/scalp atraumatic, hearing grossly normal bilaterally and moist oral mucous membranes Eyes conjunctivae normal and no scleral icterus Neck no lymphadenopathy, supple and thyroid normal General: trachea midline Resp normal respiratory effort, no retractions, no use of accessory muscles and clear to auscultation bilaterally Effort and Inspection: able to speak in complete sentences and symmetric chest movement Cardio regular rate, regular rhythm, S1 normal heart sound and S2 normal heart sound Peripheral Pulses: pulses 2+ throughout GI normal to inspection, nondistended, normoactive bowel sounds, soft to palpation, non-tender and hepatosplenomegaly GI Narrative: Large pannus Extremity normal to inspection, full ROM and no clubbing, cyanosis or edema Extremity Narrative: Patient has chronic lymphedematous changes to both lower legs, there is no evidence of cyanosis Skin no rashes or lesions noted, skin turgor normal, no jaundice, no petechiae and no mottling Skin Narrative: Patient has 2 friction ulcerations of her left upper inner thigh Neuro oriented x3, moves all extremities, no focal motor deficits and no sensory deficits noted Neuro Narrative: Generalized weakness but no focal deficits Sensorium / Orientation: awake and alert Speech: speech normal Motor Exam: strength 5/5 throughout and general weakness Psych affect normal Assessment & Plan Assessment/Plan (1) Obesity hypoventilation syndrome: (2) Iron deficiency anemia: PLAN: Plan 1. Acute on chronic iron deficiency anemia -continue oral iron supplementation 2. Generalized debility -PT and OT following -Awaiting placement at alf facility -Case management following, accepting facility [facility] however we are waiting for insurance approval as this is an out of network facility 3. Diabetes mellitus type 2 -ACH S blood sugars with sliding scale insulin ordered 4. Essential hypertension -Blood pressure currently stable -Vital signs per protocol 5. Chronic depression -Continue Zoloft 6. Gastritis -Continue Protonix twice daily 7. Chronic combined respiratory failure secondary to obesity hypoventilation syndrome -Continue nasal cannula oxygen and AVAPS at night and when sleeping. -Family and patient understands that she will need to continue this when she is discharge from a alf facility DVT prophylaxis-no pharmacological prophylaxis at this time This patient was seen by AMERICA Richardson under the supervision of Dr. Garcia. 12 minutes spent in clinical coordination of patient's plan of care. Documented by User: Dr. Logan Garcia MD 08/11/21 11:39 Objective Data Lab / Micro Data Result Diagrams: 08/07/21 05:47 08/05/21 05:23 Assessment & Plan Assessment/Plan (1) Obesity hypoventilation syndrome: (2) Iron deficiency anemia: Charges/Coding Addendum Addendum: Dr. Garcia I personally examined the patient and reviewed the chart. I agree with the above.? 60-year-old female presented to the hospital with weakness and debility.? She was found to have acute on chronic iron deficiency anemia and was started on iron replacement with infusions.? She is undergoing PT and OT however we are struggling in finding a facility that can take her.? She does have an accepting facility however they are outside of network so we are waiting for insurance approval.? We will continue to monitor and adjust her insulin for her blood sugars.? Otherwise her other medical history appears to be stable at this time.? Clinical time spent in all aspects of patient care: 18 minutes 08/11/2021: No change in her from yesterday. We will continue to monitor her blood sugars and continue with PT and OT. We are currently awaiting insurance approval for discharge to SNF for rehab. Continue with her iron replacement as well as vitamin C tablets with her iron given that she is on a PPI. Clinical time spent in all aspects of patient care: 15 minutes Visit Charges Inpatient E&M: 09017 Subs Hosp L2
[2021-08-11 11:35] LABS: Bedside Glucose 109 mg/dL (74-106)
[2021-08-11 17:16] LABS: Bedside Glucose 121 mg/dL (74-106)
[2021-08-11] MEDS: Acetaminophen 325 MG Tablet 650 MG PO (17:19)
[2021-08-11] MEDS: cycloBENZAPRine HCl 5 MG TABLET PO (20:13)
[2021-08-11] MEDS: oxyCODONE 5 MG Tablet PO (21:49)
[2021-08-12] VITALS (9 sets, daily range): BP systolic 137–158; BP diastolic 68–87; PULSE 70–85; RESP 15–18; TEMP 35.9–36.8; O2SAT 92–98
[2021-08-12 00:01] LABS: Bedside Glucose 148 mg/dL (74-106)
[2021-08-12] MEDS: busPIRone 5 MG Tablet 10 MG PO ×3 (06:44→22:03)
[2021-08-12] MEDS: Acetaminophen 325 MG Tablet 650 MG PO ×2 (08:46→16:46)
[2021-08-12] MEDS: Ascorbic Acid 500 MG Tablet PO ×2 (08:47→16:46)
[2021-08-12] MEDS: Pantoprazole Sodium 40 MG Tablet PO ×2 (08:47→22:03)
[2021-08-12] MEDS: Sertraline 100 MG Tablet 150 MG PO (08:47)
[2021-08-12] MEDS: Magnesium Chloride 64 MG Delay Rel.Tablet 128 MG PO (08:47)
[2021-08-12] MEDS: Furosemide 40 MG Tablet PO (08:47)
[2021-08-12] MEDS: Ferrous Sulfate 325 MG Tablet PO ×2 (08:47→16:46)
--- NOTE | 2021-08-12 10:32 | PN.HOSP_ITS ---
Documented by User: Terrie Hale NP-C 08/12/21 10:36 Subjective Subjective Patient seen and examined. Patient lying in bed no distress noted. Patient verbalizes frustration at waiting for insurance to arrange transfer to [facility]. Discussed with patient that we had done everything we can on our part just waiting for insurance to work on agreement with [facility]. Patient verbalized understanding Objective Data Objective Data Vital Signs: Vital Signs Temp Pulse Resp BP Pulse Ox FiO2 98.0 F 80 16 148/72 H 97 28 08/12/21 08:00 08/12/21 08:00 08/12/21 08:00 08/12/21 08:00 08/12/21 08:00 08/12/21 03:51 Oxygen Flow Rate (L/min) 2 Oxygen Delivery Method Nasal Cannula Weight: 473 lb 15.901 oz Body Mass Index (BMI) 72.1 Intake & Output: Intake and Output for Last 24 Hours 08/10/21 08/11/21 08/12/21 23:59 23:59 23:59 Intake Total 420 / 420 720 / 720 Output Total 500 / 500 1200 / 1500 1000 / 1000 Balance -80 / -80 -480 / -780 -1000 / -1000 Lab / Micro Data Result Diagrams: 08/07/21 05:47 08/05/21 05:23 Labs: Laboratory Results - last 24 hr 08/11/21 11:30: POC Glucose 109 H 08/11/21 17:05: POC Glucose 121 H 08/11/21 21:37: POC Glucose 148 H Micro: Microbiology 08/01/21 10:47 Blood Culture (Wb) - Anticubital Right Blood Culture - Final No growth in 5 days. 08/01/21 10:31 Blood Culture (Wb) - Left Hand Blood Culture - Final No growth in 5 days. 08/01/21 19:01 Stool Stool Occult Blood (CORINNE) - Final Physical Exam Const alert, oriented x3 and no apparent distress General Appearance: cooperative, comfortable, well kempt and well developed Orientation / Consciousness: awake Exam Limitations: no limitations Nutritional Appearance: morbidly obese HEENT normocephalic, head/scalp atraumatic, hearing grossly normal bilaterally and moist oral mucous membranes Eyes conjunctivae normal and no scleral icterus Eyes Narrative: No conjunctiva bilaterally, no scleral icterus Neck no lymphadenopathy, supple and thyroid normal General: trachea midline Resp normal respiratory effort, no retractions, no use of accessory muscles and clear to auscultation bilaterally Effort and Inspection: able to speak in complete sentences and symmetric chest movement Cardio regular rate, regular rhythm, S1 normal heart sound and S2 normal heart sound Peripheral Pulses: pulses 2+ throughout GI normal to inspection, nondistended, normoactive bowel sounds, soft to palpation, non-tender and non-distended GI Narrative: Large pannus Extremity normal to inspection, full ROM and no clubbing, cyanosis or edema Extremity Narrative: Patient has chronic lymphedematous changes to both lower legs, there is no evidence of cyanosis Skin no rashes or lesions noted, skin turgor normal, no jaundice, no petechiae and no mottling Skin Narrative: Patient has 2 friction ulcerations of her left upper inner thigh Neuro oriented x3, moves all extremities, no focal motor deficits and no sensory deficits noted Neuro Narrative: Generalized weakness but no focal deficits Sensorium / Orientation: awake and alert Speech: speech normal Motor Exam: strength 5/5 throughout and general weakness Psych affect normal Assessment & Plan Assessment/Plan (1) Obesity hypoventilation syndrome: (2) Iron deficiency anemia: PLAN: Plan 1. Acute on chronic iron deficiency anemia -continue oral iron supplementation 2. Generalized debility -PT and OT following -[place]ing placement at [place] [facility] -Case management following, accepting facility [facility] however we are waiting for insurance approval as this is an out of network facility 3. Diabetes mellitus type 2 -ACH S blood sugars with sliding scale insulin ordered 4. Essential hypertension -Blood pressure currently stable -Vital signs per protocol 5. Chronic depression -Continue Zoloft 6. Gastritis -Continue Protonix twice daily 7. Chronic combined respiratory failure secondary to obesity hypoventilation syndrome -Continue nasal cannula oxygen and AVAPS at night and when sleeping. -Family and patient understands that she will need to continue this when she is discharge from a [place] [facility] facility DVT prophylaxis-no pharmacological prophylaxis at this time This patient was seen by AMERICA Richardson under the supervision of Dr. Garcia. 12 minutes spent in clinical coordination of patient's plan of care. Documented by User: Dr. Logan Garcia MD 08/12/21 10:41 Objective Data Lab / Micro Data Result Diagrams: 08/07/21 05:47 08/05/21 05:23 Assessment & Plan Assessment/Plan (1) Obesity hypoventilation syndrome: (2) Iron deficiency anemia: Charges/Coding Addendum Addendum: Dr. Garcia I personally examined the patient and reviewed the chart. I agree with the above.? 60-year-old female presented to the hospital with weakness and debility.? She was found to have acute on chronic iron deficiency anemia and was started on iron replacement with infusions.? She is undergoing PT and OT however we are struggling in finding a facility that can take her.? She does have an accepting facility however they are outside of network so we are waiting for insurance approval.? We will continue to monitor and adjust her insulin for her blood sugars.? Otherwise her other medical history appears to be stable at this time.? Clinical time spent in all aspects of patient care: 18 minutes 08/11/2021:?No change in her from yesterday.? We will continue to monitor her blood sugars and continue with PT and OT.? We are currently awaiting insurance approval for discharge to SNF for rehab.? Continue with her iron replacement as well as vitamin C tablets with her iron given that she is on a PPI.? Clinical time spent in all aspects of patient care: 15 minutes 08/12/2021: Remains the same, will follow-up with labs in the morning just to monitor her hemoglobin. Continue with her current iron supplement strategies. Currently awaiting her insurance and SNF to come to an agreement so we can proceed with discharge and rehab. Clinical time spent on all aspects of patient care: 13 minutes Visit Charges Inpatient E&M: 13708 Subs Hosp L2
[2021-08-12] MEDS: Insulin Lispro 100 UNIT/ML INSULN.PEN SC (11:13)
[2021-08-12 11:16] LABS: Bedside Glucose 157 mg/dL (74-106)
[2021-08-12] MEDS: Nystatin Powder 15gm Bottle 1 APPLIC TOPICAL ×2 (13:10→22:04)
[2021-08-12] MEDS: Juven (unflavored) Packet 1 PACKET PO (16:46)
[2021-08-12 16:56] LABS: Bedside Glucose 116 mg/dL (74-106)
[2021-08-12] MEDS: Hydrocortisone 2.5% Crm 1 APPLIC TOPICAL (18:24)
[2021-08-12] MEDS: oxyCODONE 5 MG Tablet PO (22:03)
[2021-08-12] MEDS: 0.9% Saline Lock 10 ML Syringe IV (22:03)
[2021-08-12 22:26] LABS: Bedside Glucose 144 mg/dL (74-106)
[2021-08-13] VITALS (7 sets, daily range): BP systolic 129–151; BP diastolic 66–97; PULSE 73–84; RESP 15–19; TEMP 36.8–37.2; O2SAT 93–98
[2021-08-13] MEDS: Hydrocortisone 2.5% Crm 1 APPLIC TOPICAL ×2 (04:11→22:30)
[2021-08-13] MEDS: Nystatin Powder 15gm Bottle 1 APPLIC TOPICAL ×3 (05:41→22:24)
[2021-08-13] MEDS: busPIRone 5 MG Tablet 10 MG PO ×3 (05:41→22:23)
[2021-08-13] MEDS: Acetaminophen 325 MG Tablet 650 MG PO ×2 (05:54→20:14)
[2021-08-13 05:58] LABS: Absolute Neutrophil Count 4.9 X10^3/uL (2.0-7.7); Basophil# 0.05 X10^3/uL; Basophil% 0.7 % (0-1); Eosinophil# 0.44 X10^3/uL; Eosinophils% 5.8 % (0-5); Hemoglobin 8.3 g/dL (12.0-15.0); Lymphocyte % 15.7 % (19-41); Mean Corp Hgb Conc 26.8 g/dL (32-36); Mean Corpuscular Hgb 23.8 pg (27.0-32.0); Mean Corpuscular Volume 88.8 fL (81-99); Mean Platelet Vol. 10.2 fl (6.2-12.0); Monocyte# 1.02 X10^3/uL; Monocyte% 13.4 % (0-10); NRBC Flagged by Analyzer 0 % (0-5); Neutrophil # 4.89 X10^3/uL (2.7-7.7); POSITIVE MORPHOLOGY YES; Platelet Count 302 K/mm3 (150-450); RBC Distribution Width CV 22.6 % (11.6-14.6); RBC Distribution Width SD 71.8 fl (35.1-43.9); Red Blood Count 3.49 M/mm3 (4.2-5.4); White Blood Count 7.6 K/mm3 (4.4-11.0)
[2021-08-13 06:14] LABS: Differential Indicated SCAN CRITERIA MET
[2021-08-13 06:21] LABS: Anion Gap 4 (5-15); BUN 9 mg/dL (7-18); BUN/Creat Ratio 13.8 RATIO (10-20); Chloride 97 mmol/L (98-107); Creatinine, Serum 0.65 mg/dL (0.55-1.02); EST Glomerular Filtration Rate 98 mL/min (>60); Est Glom Filt Rate - Afr Amer 119 mL/min (>60); Estimated Creatinine Clearance 91.69 ml/min; Glucose 121 mg/dL (74-106); Potassium 3.9 mmol/L (3.5-5.1); Sodium Level 137 mmol/L (136-145)
[2021-08-13 06:23] LABS: Anisocytosis 2+; Differential Comment SCANNED
[2021-08-13 06:24] LABS: Macrocytosis 1+; Microcytosis 1+; Polychromasia RARE
[2021-08-13 06:55] LABS: Bedside Glucose 119 mg/dL (74-106)
--- NOTE | 2021-08-13 08:46 | CASEMGMT ---
Discharge Criminal Records Technician Faxed over current update on patient with PT/OT notes to [facility]. Felicia Bettencourt Discharge Criminal Records Technician
[2021-08-13] MEDS: Sertraline 100 MG Tablet 150 MG PO (09:12)
[2021-08-13] MEDS: Pantoprazole Sodium 40 MG Tablet PO ×2 (09:12→22:23)
[2021-08-13] MEDS: Furosemide 40 MG Tablet PO (09:12)
[2021-08-13] MEDS: Magnesium Chloride 64 MG Delay Rel.Tablet 128 MG PO (09:13)
[2021-08-13] MEDS: Juven (unflavored) Packet 1 PACKET PO ×2 (09:13→16:47)
[2021-08-13] MEDS: Ascorbic Acid 500 MG Tablet PO ×2 (09:13→16:47)
[2021-08-13] MEDS: Ferrous Sulfate 325 MG Tablet PO ×2 (09:13→16:47)
--- NOTE | 2021-08-13 10:56 | PN.HOSP_ITS ---
Documented by User: Terrie Hale NP-C 08/13/21 10:59 Subjective Subjective Patient Seen and examined. Patient lying in bed no distress noted, nurse at bedside Objective Data Objective Data Vital Signs: Vital Signs Temp Pulse Resp BP Pulse Ox FiO2 98.6 F 80 16 144/68 H 97 30 08/13/21 09:08 08/13/21 09:08 08/13/21 09:08 08/13/21 09:08 08/13/21 09:08 08/13/21 02:38 Oxygen Flow Rate (L/min) 2 Oxygen Delivery Method Nasal Cannula Weight: 473 lb 15.901 oz Body Mass Index (BMI) 72.1 Intake & Output: Intake and Output for Last 24 Hours 08/11/21 08/12/21 08/13/21 23:59 23:59 23:59 Intake Total 720 / 720 840 / 840 Output Total 1200 / 1500 1825 / 1825 300 / 300 Balance -480 / -780 -985 / -985 -300 / -300 Lab / Micro Data Result Diagrams: 08/13/21 05:11 08/13/21 05:11 Labs: Laboratory Results - last 24 hr 08/12/21 11:12: POC Glucose 157 H 08/12/21 16:45: POC Glucose 116 H 08/12/21 21:55: POC Glucose 144 H 08/13/21 05:11: WBC 7.6, RBC 3.49 L, Hgb 8.3 L, Hct 31.0 L, MCV 88.8, MCH 23.8 L , MCHC 26.8 L, RDW Std Deviation 71.8 H, RDW Coeff of Amirah 22.6 H, Plt Count 302, MPV 10.2, Immature Gran % (Auto) 0.400, Neut % (Auto) 64.0, Lymph % (Auto) 15.7 L, [place] % (Auto) 13.4 H, Eos % (Auto) 5.8 H, Baso % (Auto) 0.7, Absolute Neuts (auto) 4.9, Absolute Lymphs (auto) 1.20, Nucleated RBC % 0, Differential Comment SCANNED, Polychromasia RARE, Anisocytosis 2+, Microcytosis 1+, Macrocytosis 1+ 08/13/21 05:11: Sodium 137, Potassium 3.9, Chloride 97 L, Carbon Dioxide 36.0 H, Anion Gap 4 L, BUN 9, Creatinine 0.65, Estim Creat Clear Calc 91.69, Est GFR (MDRD) Af Amer 119, Est GFR (MDRD) Non-Af 98, BUN/Creatinine Ratio 13.8, Glucose 121 H, Calcium 9.0 08/13/21 06:15: POC Glucose 119 H Micro: Microbiology 08/01/21 10:47 Blood Culture (Wb) - Anticubital Right Blood Culture - Final No growth in 5 days. 08/01/21 10:31 Blood Culture (Wb) - Left Hand Blood Culture - Final No growth in 5 days. 08/01/21 19:01 Stool Stool Occult Blood (CORINNE) - Final Physical Exam Const alert, oriented x3 and no apparent distress Constitutional Narrative: Patient is alert and appropriate, she does not appear to be in any respiratory distress General Appearance: cooperative, comfortable, well kempt and well developed Orientation / Consciousness: awake, oriented to person, oriented to place, oriented to time and lethargic Exam Limitations: no limitations Nutritional Appearance: morbidly obese HEENT normocephalic, head/scalp atraumatic, hearing grossly normal bilaterally and moist oral mucous membranes Eyes PERRL, EOMs intact bilaterally, conjunctivae normal and no scleral icterus Eyes Narrative: No conjunctiva bilaterally, no scleral icterus Neck nuchal rigidity, no lymphadenopathy, supple, no JVD, thyroid normal and no carotid bruits Neck Narrative: Neck is short and thick with redundant tissue General: trachea midline Resp normal respiratory effort, no retractions, no use of accessory muscles and clear to auscultation bilaterally Resp Narrative: Distant secondary to body habitus but no adventitious sounds noted Effort and Inspection: able to speak in complete sentences and symmetric chest movement Auscultation: Negative for crackles, rales, rhonchi or wheezes Cardio regular rate, regular rhythm, S1 normal heart sound, S2 normal heart sound, no murmurs, no rub, no gallops, no clicks and no JVD Peripheral Pulses: pulses 2+ throughout GI normal to inspection, nondistended, normoactive bowel sounds, soft to palpation, non-tender, non-distended and hepatosplenomegaly GI Narrative: Large pannus Extremity normal to inspection, full ROM and no clubbing, cyanosis or edema Extremity Narrative: Patient has chronic lymphedematous changes to both lower legs, there is no evidence of cyanosis Skin no rashes or lesions noted, No no wounds, skin turgor normal, no jaundice, no petechiae and no mottling Skin Narrative: Patient has 2 friction ulcerations of her left upper inner thigh General Skin Exam: no breakdown Neuro oriented x3, CN's II-XII intact bilaterally, moves all extremities, no focal motor deficits and no sensory deficits noted Neuro Narrative: Generalized weakness but no focal deficits Sensorium / Orientation: awake and alert Speech: speech normal Motor Exam: strength 5/5 throughout and general weakness Psych affect normal Psych Narrative: Affect is somewhat flat today and patient is tearful at times and we discussed her needing to go to a facility at discharge Assessment & Plan Assessment/Plan (1) Obesity hypoventilation syndrome: (2) Iron deficiency anemia: PLAN: Plan 1. Acute on chronic iron deficiency anemia -continue oral iron supplementation 2. Generalized debility -PT and OT following -Awaiting placement at detention facility -Case management following, accepting facility [facility] however we are waiting for insurance approval as this is an out of network facility 3. Diabetes mellitus type 2 -ACH S blood sugars with sliding scale insulin ordered 4. Essential hypertension -Blood pressure currently stable -Vital signs per protocol 5. Chronic depression -Continue Zoloft 6. Gastritis -Continue Protonix twice daily 7. Chronic combined respiratory failure secondary to obesity hypoventilation syndrome -Continue nasal cannula oxygen and AVAPS at night and when sleeping. -Family and patient understands that she will need to continue this when she is discharge from a detention facility DVT prophylaxis-no pharmacological prophylaxis at this time This patient was seen by MISA RichardsonC under the supervision of Dr. Garcia. 12 minutes spent in clinical coordination of patient's plan of care. Documented by User: Dr. Logan Garcia MD 08/13/21 13:08 Objective Data Lab / Micro Data Result Diagrams: 08/13/21 05:11 08/13/21 05:11 Assessment & Plan Assessment/Plan (1) Obesity hypoventilation syndrome: (2) Iron deficiency anemia: Charges/Coding Addendum Addendum: Dr. Garcia I personally examined the patient and reviewed the chart. I agree with the above.? 60-year-old female presented to the hospital with weakness and debilit y.? She was found to have acute on chronic iron deficiency anemia and was started on iron replacement with infusions.? She is undergoing PT and OT however we are struggling in finding a facility that can take her.? She does have an accepting facility however they are outside of network so we are waiting for insurance approval.? We will continue to monitor and adjust her insulin for her blood sugars.? Otherwise her other medical history appears to be stable at this time.? Clinical time spent in all aspects of patient care: 18 minutes 08/11/2021:?No change in her from yesterday.? We will continue to monitor her blood sugars and continue with PT and OT.? We are currently awaiting insurance approval for discharge to SNF for rehab.? Continue with her iron replacement as well as vitamin C tablets with her iron given that she is on a PPI.? Clinical time spent in all aspects of patient care: 15 minutes 08/12/2021:?Remains the same, will follow-up with labs in the morning just to monitor her hemoglobin.? Continue with her current iron supplement strategies.? Currently awaiting her insurance and SNF to come to an agreement so we can proceed with discharge and rehab.? Clinical time spent on all aspects of patient care: 13 minutes 08/13/2021: Doing well, remains the same. Hemoglobin is 8.3. Awaiting insurance response for placement at [facility]. Unfortunately today is a national holiday so may not hear anything. Clinical time spent in all aspects of patient care: 13 minutes Visit Charges Inpatient E&M: 85102 Subs Hosp L2
[2021-08-13 12:11] LABS: Bedside Glucose 137 mg/dL (74-106)
--- NOTE | 2021-08-13 12:25 | CASEMGMT ---
SW called patient's insurance and got a voice mail. SW did leave a message, requesting a return call. Unfortunately SW thinks they are closed for the holiday, . CHRISTINA did try to call again at 14:09 with the same result. Toya Brown SHEET TAKER MARIELA
[2021-08-13] MEDS: DiphenhydrAMINE 25 MG Capsule PO (13:38)
[2021-08-13 17:16] LABS: Bedside Glucose 127 mg/dL (74-106)
[2021-08-13] MEDS: 0.9% Saline Lock 10 ML Syringe IV (22:24)
[2021-08-13] MEDS: oxyCODONE 5 MG Tablet PO (22:29)
[2021-08-13 22:31] LABS: Bedside Glucose 144 mg/dL (74-106)
[2021-08-14] VITALS (11 sets, daily range): BP systolic 138–151; BP diastolic 65–80; PULSE 68–87; RESP 15–20; TEMP 36.5–36.8; O2SAT 94–100
[2021-08-14] MEDS: Nystatin Powder 15gm Bottle 1 APPLIC TOPICAL ×3 (03:58→19:39)
[2021-08-14] MEDS: Acetaminophen 325 MG Tablet 650 MG PO ×2 (06:20→12:06)
[2021-08-14] MEDS: busPIRone 5 MG Tablet 10 MG PO ×3 (06:20→20:48)
[2021-08-14 06:45] LABS: Bedside Glucose 129 mg/dL (74-106)
[2021-08-14] MEDS: Juven (unflavored) Packet 1 PACKET PO ×2 (08:22→16:15)
[2021-08-14] MEDS: Sertraline 100 MG Tablet 150 MG PO (08:23)
[2021-08-14] MEDS: Ascorbic Acid 500 MG Tablet PO ×2 (08:23→16:15)
[2021-08-14] MEDS: Pantoprazole Sodium 40 MG Tablet PO ×2 (08:23→20:48)
[2021-08-14] MEDS: Ferrous Sulfate 325 MG Tablet PO ×2 (08:23→16:15)
[2021-08-14] MEDS: Magnesium Chloride 64 MG Delay Rel.Tablet 128 MG PO (08:23)
[2021-08-14] MEDS: Furosemide 40 MG Tablet PO (08:23)
--- NOTE | 2021-08-14 09:07 | CASEMGMT ---
CHRISTINA called Dasha at [facility]. Dasha said that patient was approved for 7 days at an out of network facility. Dasha said now insurance and [employer] need to work out a contract. She said sometimes it takes awhile, but she will be sure to stay on top of the situation. CHRISTINA asked her to please do as patient has now been here for 14 days. Dasha verbalized understanding. Toya SIERRA
[2021-08-14 11:15] LABS: Bedside Glucose 129 mg/dL (74-106)
--- NOTE | 2021-08-14 12:24 | PCM.PN.HOSP ---
Documented by User: AMERICA Richardson 08/14/21 12:30 Subjective Subjective Patient seen and examined. Patient lying in bed no distress noted. Objective Data Objective Data Vital Signs: Vital Signs Temp Pulse Resp BP Pulse Ox FiO2 98 F 80 18 139/70 H 97 28 08/14/21 06:13 08/14/21 06:13 08/14/21 06:13 08/14/21 06:13 08/14/21 07:36 08/13/21 23:25 Oxygen Flow Rate (L/min) 2 Oxygen Delivery Method Nasal Cannula Weight: 473 lb 15.901 oz Body Mass Index (BMI) 72.1 Intake & Output: Intake and Output for Last 24 Hours 08/12/21 08/13/21 08/14/21 23:59 23:59 23:59 Intake Total 840 / 840 480 / 480 400 / 400 Output Total 1825 / 1825 1600 / 1600 400 / 400 Balance -985 / -985 -1120 / -1120 0 / 0 Lab / Micro Data Result Diagrams: 08/13/21 05:11 08/13/21 05:11 Labs: Laboratory Results - last 24 hr 08/13/21 16:45: POC Glucose 127 H 08/13/21 22:21: POC Glucose 144 H 08/14/21 06:19: POC Glucose 129 H 08/14/21 11:11: POC Glucose 129 H Micro: Microbiology 08/01/21 10:47 Blood Culture (Wb) - Anticubital Right Blood Culture - Final No growth in 5 days. 08/01/21 10:31 Blood Culture (Wb) - Left Hand Blood Culture - Final No growth in 5 days. 08/01/21 19:01 Stool Stool Occult Blood (CORINNE) - Final Physical Exam Const alert, oriented x3 and no apparent distress Constitutional Narrative: Patient is alert and appropriate, she does not appear to be in any respiratory distress General Appearance: cooperative, comfortable, well kempt and well developed Orientation / Consciousness: awake Exam Limitations: no limitations Nutritional Appearance: morbidly obese HEENT normocephalic, head/scalp atraumatic, hearing grossly normal bilaterally and moist oral mucous membranes Eyes conjunctivae normal and no scleral icterus Eyes Narrative: No conjunctiva bilaterally, no scleral icterus Neck no lymphadenopathy, supple and thyroid normal Neck Narrative: Neck is short and thick with redundant tissue General: trachea midline Resp normal respiratory effort, No no retractions, No no use of accessory muscles and clear to auscultation bilaterally Resp Narrative: Distant secondary to body habitus but no adventitious sounds noted Effort and Inspection: able to speak in complete sentences and symmetric chest movement Cardio regular rate, regular rhythm, S1 normal heart sound and S2 normal heart sound Peripheral Pulses: pulses 2+ throughout GI normal to inspection, nondistended, normoactive bowel sounds, soft to palpation and non-tender GI Narrative: Large pannus Extremity normal to inspection and full ROM Extremity Narrative: Patient has chronic lymphedematous changes to both lower legs, there is no evidence of cyanosis Skin no rashes or lesions noted, skin turgor normal, no jaundice, no petechiae and no mottling Skin Narrative: Patient has 2 friction ulcerations of her left upper inner thigh Neuro oriented x3, moves all extremities, no focal motor deficits and no sensory deficits noted Neuro Narrative: Generalized weakness but no focal deficits Sensorium / Orientation: awake and alert Speech: speech normal Motor Exam: strength 5/5 throughout and general weakness Psych affect normal Psych Narrative: Affect is somewhat flat today and patient is tearful at times and we discussed her needing to go to a facility at discharge Assessment & Plan Assessment/Plan (1) Obesity hypoventilation syndrome: (2) Iron deficiency anemia: PLAN: Plan 1. Acute on chronic iron deficiency anemia -continue oral iron supplementation 2. Generalized debility -PT and OT following -Awaiting placement at prison facility -Case management following, accepting facility [facility] however we are waiting for insurance approval as this is an out of network facility 3. Diabetes mellitus type 2 -ACH S blood sugars with sliding scale insulin ordered 4. Essential hypertension -Blood pressure currently stable -Vital signs per protocol 5. Chronic depression -Continue Zoloft 6. Gastritis -Continue Protonix twice daily 7. Chronic combined respiratory failure secondary to obesity hypoventilation syndrome -Continue nasal cannula oxygen and AVAPS at night and when sleeping. -Family and patient understands that she will need to continue this when she is discharge from a prison facility DVT prophylaxis-no pharmacological prophylaxis at this time This patient was seen by Terrie Hale NP-C under the supervision of Dr. Garcia. 12 minutes spent in clinical coordination of patient's plan of care. Documented by User: Dr. Logan Garcia MD 08/14/21 13:22 Objective Data Lab / Micro Data Result Diagrams: 08/13/21 05:11 08/13/21 05:11 Assessment & Plan Assessment/Plan (1) Obesity hypoventilation syndrome: (2) Iron deficiency anemia: Charges/Coding Addendum Addendum: Dr. Garcia I personally examined the patient and reviewed the chart. I agree with the above.? 60-year-old female presented to the hospital with weakness and debility.? She was found to have acute on chronic iron deficiency anemia and was started on iron replacement with infusions.? She is undergoing PT and OT however we are struggling in finding a facility that can take her.? She does have an accepting facility however they are outside of network so we are waiting for insurance approval.? We will continue to monitor and adjust her insulin for her blood sugars.? Otherwise her other medical history appears to be stable at this time.? Clinical time spent in all aspects of patient care: 18 minutes 08/11/2021:?No change in her from yesterday.? We will continue to monitor her blood sugars and continue with PT and OT.? We are currently awaiting insurance approval for discharge to SNF for rehab.? Continue with her iron replacement as well as vitamin C tablets with her iron given that she is on a PPI.? Clinical time spent in all aspects of patient care: 15 minutes 08/12/2021:?Remains the same, will follow-up with labs in the morning just to monitor her hemoglobin.? Continue with her current iron supplement strategies.? Currently awaiting her insurance and SNF to come to an agreement so we can proceed with discharge and rehab.? Clinical time spent on all aspects of patient care: 13 minutes 08/13/2021:?Doing well, remains the same.? Hemoglobin is 8.3.? Awaiting insurance response for placement at [facility].? Unfortunately today is a national holiday so may not hear anything.? Clinical time spent in all aspects of patient care: 13 minutes 08/14/2021: Doing well, remains much the same. Awaiting insurance approval. Mostly she just feels frustrated with the delay and continuing her therapy. Clinical time spent in all aspects of patient care: 13 minutes Visit Charges Inpatient E&M: 60132 Subs Hosp L2
[2021-08-14] MEDS: Albuterol 2.5 MG/3 ML VIAL.NEB. INHALATION ×2 (13:34→19:00)
[2021-08-14] MEDS: DiphenhydrAMINE 25 MG Capsule PO (14:48)
[2021-08-14] MEDS: Hydrocortisone 2.5% Crm 1 APPLIC TOPICAL ×2 (14:52→20:51)
--- NOTE | 2021-08-14 15:55 | CASEMGMT ---
CHRISTINA called Sindy at [facility] and she has not heard from insurance. Sindy said yesterday insurance asked for clinical information. CHRISTINA called Dasha at [facility] and she was in a meeting. CHRISTINA asked that she call CHRISTINA back. CHRISTINA spoke with patient and updated her on the latest information. Plan: d/c to [facility] pending insurance working out a contract with [facility]. Toya SIERRA
[2021-08-14 16:25] LABS: Bedside Glucose 141 mg/dL (74-106)
[2021-08-14] MEDS: 0.9% Saline Lock 10 ML Syringe IV (19:39)
[2021-08-14] MEDS: Insulin Lispro 100 UNIT/ML INSULN.PEN SC (20:48)
[2021-08-14] MEDS: oxyCODONE 5 MG Tablet PO (20:49)
[2021-08-14 21:01] LABS: Bedside Glucose 166 mg/dL (74-106)
[2021-08-15] VITALS (8 sets, daily range): BP systolic 145–153; BP diastolic 69–84; PULSE 74–84; RESP 15–20; TEMP 36.3–37.1; O2SAT 95–98
[2021-08-15] MEDS: Nystatin Powder 15gm Bottle 1 APPLIC TOPICAL ×3 (05:48→20:28)
[2021-08-15] MEDS: busPIRone 5 MG Tablet 10 MG PO ×3 (05:49→20:27)
[2021-08-15] MEDS: Acetaminophen 325 MG Tablet 650 MG PO ×3 (06:18→23:20)
[2021-08-15 06:30] LABS: Bedside Glucose 126 mg/dL (74-106)
--- NOTE | 2021-08-15 07:29 | CASEMGMT ---
CHRISTINA received a voice mail from Dasha at [facility] yesterday evening. Dasha said they spoke with Sindy this afternoon and are just waiting on an NPI number. Sindy is to have contract drawn up. Dasha will call CHRISTINA in am. Toya SIERRA
--- NOTE | 2021-08-15 08:46 | CASEMGMT ---
SW updated patient in regards to voice mail SW received from patient's insurance. Toya Brown MANUFACTURING MAINTENANCE MANAGER MARIELA
--- NOTE | 2021-08-15 08:48 | CASEMGMT ---
Discharge Computer Systems Analyst Faxed over patient update to [facility]. Felicia Bettencourt Discharge Computer Systems Analyst
[2021-08-15] MEDS: Ferrous Sulfate 325 MG Tablet PO ×2 (08:55→17:52)
[2021-08-15] MEDS: Magnesium Chloride 64 MG Delay Rel.Tablet 128 MG PO (08:55)
[2021-08-15] MEDS: Pantoprazole Sodium 40 MG Tablet PO ×2 (08:55→20:28)
[2021-08-15] MEDS: Juven (unflavored) Packet 1 PACKET PO ×2 (08:55→17:52)
[2021-08-15] MEDS: Ascorbic Acid 500 MG Tablet PO ×2 (08:55→17:52)
[2021-08-15] MEDS: Furosemide 40 MG Tablet PO (08:55)
[2021-08-15] MEDS: Sertraline 100 MG Tablet 150 MG PO (08:55)
--- NOTE | 2021-08-15 09:29 | CASEMGMT ---
CHRISTINA received a call from Dasha with [employer]. She said [facility] and [facility] agreed on a contract. [facility] just needs to sign the contract. Dasha thought patient should be able to go today. CHRISTINA called Sindy and left her a voice mail requesting a return call. Toya Beck
--- NOTE | 2021-08-15 10:51 | TREXTCAR_ITS ---
Diet Diet Order/Speech Therapy: 07/31/21 18:02 Diet: Cardiac: Calorie-Controlled Food consistency:: Regular Liquid Consistency:: Regular/Thin Dietary Modifications:: Consistent Carbohydrate Type of Dietary Supplement:: vanilla ES Pud w/ Lunch Diet Comments: Distant Supervision; no chocolate ensure pudding How many daily calories?: 1800 calorie Routine Orders/Code Status Enema Type: Fleetz Enema Frequency: Daily PRN Suppository Type: Dulcolax 10mg Suppository Frequency: Daily PRN O2 Frequency: Continuous (2) Wound(s) RLE: Wound Type: Healed Ulcer Left Upper Thigh posterior: Wound Type: nonhealing wound Dressing Change: Mepilex Left Upper Medial Thigh: Wound Type: nonhealing wounds Dressing Change: Mepilex Abdominal folds: Wound Type: Pressure Injury Suggestions for Active Care Change Position every (hours): 2 Times a day to sit in chair: 2 Therapies Physical Therapy: Eval and Treat Occupational Therapy: Eval and Treat Problem/Diagnosis (1) Obesity hypoventilation syndrome: Status: Acute Code(s): E66.2 - Morbid (severe) obesity with alveolar hypoventilation (2) Iron deficiency anemia: Status: Acute Code(s): D50.9 - Iron deficiency anemia, unspecified Plan Patient is a 60-year-old female who initially presented to the ER with weakness. Patient was admitted and given fluids for elevated creatinine. Patient was also initiated on iron for iron deficiency anemia. Patient has been admitted for 15 days awaiting insurance approval for patient to go to SNF. Patient has a medical history that includes asthma, diabetes mellitus type 2, hypertension. Patient will be continued on all of her home medications in addition to iron replacement. Allergies/Procedures Done in Hospital Allergies codeine Allergy (Verified 07/31/21 13:31) Nausea/Vom/Diarrhea iodine Allergy (Verified 07/31/21 13:31) Swelling latex Allergy (Verified 07/31/21 13:31) Shortness of breath meloxicam Allergy (Verified 07/31/21 13:31) Rash Penicillins Allergy (Verified 07/31/21 13:31) Shortness of breath hydrocodone bitartrate [From Vicodin] Adverse Reaction (Verified 07/31/21 13:31) Nausea/Vom/Diarrhea prednisone Adverse Reaction (Verified 07/31/21 13:31) Other INCREASED BLOOD SUGAR Procedures: None Type of Care/Length of Stay Estimated LOS: Convalescent Care Less Than 30 days Type of Care Needed: Skilled Rehab Potential: Fair Prognosis: Fair Additional Orders/Day of Discharge Day of Discharge: 08/15/21 Dietary and Speech Recommendations Dietitian Recommendations/Changes: Will continue 1800 calorie /consistent carbohydrate; cardiac diet with texture/consistency per CRAB MEAT PROCESSOR, currently regular food and thin liquids. Vanilla Ensure Pudding 1 time per day with lunch only---no chocolate. Will add Juan BID for wound healing. Discharge Plan Admission Admit Date/Time: 07/31/21 16:39 Primary Reason for Your Visit: Debility, Iron deficiency Anemia Attending Provider: Logan Garcia Primary Care Provider: Silvia Tolbert Consulting Providers: Heber Devine ; Henry Vargas ; Stephanie Díaz NP ; Maribel Leblanc ; Genesis Garcia ; Dru Correa ; Jim Pizarro Discharge Orders/Prescriptions Prescriptions: New furosemide 40 mg Tablet 40 mg PO DAILY Qty: 0 0RF buspirone 5 mg Tablet 10 mg PO TID Qty: 0 0RF acetaminophen [Tylenol] 325 mg Tablet 650 mg PO Q6H PRN PRN (Reason: Pain Score 1-10/Temp > 100.7 F) Qty: 0 0RF sertraline 100 mg Tablet 150 mg PO DAILY Qty: 0 0RF ascorbic acid (vitamin C) 500 mg Tablet 500 mg PO BIDCM Qty: 0 0RF pantoprazole 40 mg Tablet,Delayed Release (Dr/Ec) 40 mg PO BID Qty: 0 0RF ferrous sulfate [FeroSul] 325 mg (65 mg iron) Tablet 325 mg PO BIDCM Qty: 0 0RF nystatin [Nyamyc] 100,000 unit/gram Powder 1 applic topical TID Qty: 0 0RF Protocol: *Topical Application Instructions APPLICATION INSTRUCTIONS: To folds lorazepam 1 mg Tablet 1 mg PO BID PRN PRN (Reason: Anxiety) 3 Days Qty: 6 0RF oxycodone 5 mg Tablet 5 mg PO Q4H PRN PRN (Reason: Pain Score 4-5) 3 Days Qty: 10 0RF Mag 64 64 mg Tablet,Delayed Release (Dr/Ec) 128 mg PO DAILY Qty: 0 0RF Juan (with collagen) 7-7-1.5 gram Powder In Packet 1 packet PO BIDCM Qty: 0 0RF Continued albuterol sulfate 2.5 MG/3 ML solution for nebulization 2.5 mg inhalation Q6HWA.RT PRN (Reason: Asthma) Label Comments: ASTHMA fluticasone propionate 1 SPRAY spray,suspension 2 spray NASAL DAILY PRN (Reason: Sinus Symptoms) Label Comments: ALLERGIES benzonatate 100 mg capsule 100 mg PO TID PRN (Reason: Cough) Label Comments: take 1 capsule by mouth three times a day if needed for cough cyclobenzaprine 5 mg tablet 5 mg PO TID PRN (Reason: Spasms) Label Comments: take 1 tablet by mouth three times a day if needed Discontinued losartan 100 MG tablet 100 mg PO DAILY Label Comments: bP furosemide 40 MG tablet 80 mg PO BIDLX Label Comments: DIURETIC Toujeo SoloStar U-300 Insulin 300 UNIT/ML insulin pen 65 unit SQ QHS Label Comments: DIABETES sertraline 100 MG tablet 100 - 150 mg PO DAILY Label Comments: DEPRESSION metolazone 5 mg tablet 5 mg PO BID PRN (Reason: fluid) Label Comments: take 1 tablet by mouth 30 MINUTES PRIOR TO TAKING LASIX IF NEEDED... (REFER TO PRESCRIPTION NOTES). pantoprazole 40 mg tablet,delayed release (DR/EC) 40 mg PO BID Label Comments: take 1 tablet by mouth twice a day before meals for 1 month then RETURN TO DAILY DOSING magnesium 250 mg Tablet 250 mg PO DAILY No Action lorazepam 1 MG tablet 0.5 - 1 mg PO BID PRN (Reason: Anxiety) Label Comments: take 1 tablet by mouth twice a day if needed- anxiety/nerves Referrals / Follow Up: Silvia Tolbert MD [Primary Care Provider] - Disposition Disposition (needs filled in before D/C Order can be placed): Nursing Home Facility
[2021-08-15] MEDS: Hydrocortisone 2.5% Crm 1 APPLIC TOPICAL (10:56)
[2021-08-15] MEDS: DiphenhydrAMINE 25 MG Capsule PO ×2 (10:58→23:21)
--- NOTE | 2021-08-15 11:05 | PCM.DC.SUM ---
Providers Date of Admission: 07/31/21 Date of Discharge: 08/15/21 Primary Care Physician: Dr. Silvia Tolbert MD Consultations 07/31/21 19:49 Consult: Rn Renal / Pulmonary Medicine Routine Consulting Provider: Pulmonary Medicine [facility] [place] Reason for Consult: untreated sleep apnea and OHS. EMERGENT Consult: No Notified: Yes Date Notified: 07/31/21 Time Notified: 19:49 Method of Notification: Text 08/01/21 07:48 Consult: Gastroenterology Routine Consulting Provider: [facility] Reason for Consult: iron deficiency anemia EMERGENT Consult: No Notified: Yes Date Notified: 08/01/21 Time Notified: 07:49 Method of Notification: Verbal 08/01/21 10:40 Consult: Onc/Wound/director treasurer Routine Comment: Reason for Consult:: leg wounds Reason For Visit: WEAKNESS AND DEBILITY Diagnosis Discharge Diagnosis (1) Obesity hypoventilation syndrome: Status: Acute Code(s): E66.2 - Morbid (severe) obesity with alveolar hypoventilation (2) Iron deficiency anemia: Status: Acute Code(s): D50.9 - Iron deficiency anemia, unspecified Plan Patient is a 60-year-old female who initially presented to the ER with weakness. Patient was admitted and given fluids for elevated creatinine. Patient was also initiated on iron for iron deficiency anemia. Patient has been admitted for 15 days awaiting insurance approval for patient to go to SNF. Patient has a medical history that includes asthma, diabetes mellitus type 2, hypertension. Patient will be continued on all of her home medications in addition to iron replacement. Medications at Discharge Home Medications albuterol sulfate 2.5 mg inhalation Q6HWA.RT PRN Asthma 11/23/12 lorazepam 1 mg tablet 0.5 - 1 mg PO BID PRN Anxiety 09/27/14 fluticasone propionate 50 mcg/actuation nasal spray,suspension 2 spray DAILY PRN Sinus Symptoms 02/22/16 benzonatate 100 mg capsule 100 mg PO TID PRN Cough 07/31/21 cyclobenzaprine 5 mg tablet 5 mg PO TID PRN Spasms 07/31/21 acetaminophen 325 mg tablet (Tylenol) 650 mg PO Q6H PRN PRN Pain Score 1-10/Temp > 100.7 F #0 tabs 08/15/21 arginine 7 gram-glutam 7 gram-CaHMB 1.5 [id number]-mu-min oral pwd pkt (Juan (with collagen)) 1 packet PO BIDCM #0 ea 08/15/21 ascorbic acid (vitamin C) 500 mg tablet 500 mg PO BIDCM #0 tabs 08/15/21 buspirone 5 mg tablet 10 mg PO TID #0 tabs 08/15/21 ferrous sulfate 325 mg (65 mg iron) tablet (FeroSul) 325 mg PO BIDCM #0 tabs 08/15/21 furosemide 40 mg tablet 40 mg PO DAILY #0 tabs 08/15/21 lorazepam 1 mg tablet 1 mg PO BID PRN PRN Anxiety 3 days #6 tabs 08/15/21 magnesium chloride 64 mg (magnesium chloride) tablet,delayed release (Mag 64) 128 mg PO DAILY #0 tabs 08/15/21 nystatin 100,000 unit/gram topical powder (Nyamyc) 1 applic topical TID #0 grams 08/15/21 oxycodone 5 mg tablet 5 mg PO Q4H PRN PRN Pain Score 4-5 3 days #10 tabs 08/15/21 pantoprazole 40 mg tablet,delayed release 40 mg PO BID #0 tabs 08/15/21 sertraline 100 mg tablet 150 mg PO DAILY #0 tabs 08/15/21 Hospital Course Operations None Procedures None Summary of Care Provided Minutes Spent on Discharge: 35 Hospital Course: Patient is a 60-year-old female who initially presented to the ER with weakness.? Patient was admitted and given fluids for elevated creatinine.? Patient was also initiated on iron for iron deficiency anemia.? Patient has been admitted for 15 days awaiting insurance approval for patient to go to SNF.? Patient has a medical history that includes asthma, diabetes mellitus type 2, hypertension.? Patient will be continued on all of her home medications in addition to iron replacement. Physical Exam Const alert, oriented x3 and no apparent distress Constitutional Narrative: Patient is alert and appropriate, she does not appear to be in any respiratory distress General Appearance: cooperative, comfortable, well kempt and well developed Orientation / Consciousness: awake, oriented to person, oriented to place, oriented to time and lethargic Exam Limitations: no limitations Nutritional Appearance: morbidly obese HEENT normocephalic, head/scalp atraumatic, hearing grossly normal bilaterally and moist oral mucous membranes Eyes PERRL, EOMs intact bilaterally, conjunctivae normal and no scleral icterus Eyes Narrative: No conjunctiva bilaterally, no scleral icterus Neck nuchal rigidity, no lymphadenopathy, supple, no JVD, thyroid normal and no carotid bruits Neck Narrative: Neck is short and thick with redundant tissue General: trachea midline Resp normal respiratory effort, No no retractions, No no use of accessory muscles and clear to auscultation bilaterally Resp Narrative: Distant secondary to body habitus but no adventitious sounds noted Effort and Inspection: able to speak in complete sentences and symmetric chest movement Auscultation: Negative for crackles, rales, rhonchi or wheezes Cardio regular rate, regular rhythm, S1 normal heart sound, S2 normal heart sound, no murmurs, no rub, no gallops, no clicks and no JVD Peripheral Pulses: pulses 2+ throughout GI normal to inspection, nondistended, normoactive bowel sounds, soft to palpation, non-tender, non-distended and hepatosplenomegaly GI Narrative: Large pannus Extremity normal to inspection, full ROM and no clubbing, cyanosis or edema Extremity Narrative: Patient has chronic lymphedematous changes to both lower legs, there is no evidence of cyanosis Skin no rashes or lesions noted, No no wounds, skin turgor normal, no jaundice, no petechiae and no mottling Skin Narrative: Patient has 2 friction ulcerations of her left upper inner thigh General Skin Exam: no breakdown Neuro oriented x3, CN's II-XII intact bilaterally, moves all extremities, no focal motor deficits and no sensory deficits noted Neuro Narrative: Generalized weakness but no focal deficits Sensorium / Orientation: awake and alert Speech: speech normal Motor Exam: strength 5/5 throughout and general weakness Psych affect normal Psych Narrative: Affect is somewhat flat today and patient is tearful at times and we discussed her needing to go to a facility at discharge Weight / BMI Weight Weight: 473 lb 15.901 oz Body Mass Index (BMI) 72.1 ABG / Lab / Microbiology Data Result Diagrams: 08/13/21 05:11 08/13/21 05:11 Laboratory: Laboratory Results - last 24 hr 08/14/21 11:11: POC Glucose 129 H 08/14/21 16:14: POC Glucose 141 H 08/14/21 20:46: POC Glucose 166 H 08/15/21 06:13: POC Glucose 126 H Microbiology: Microbiology 08/01/21 10:47 Blood Culture (Wb) - Anticubital Right Blood Culture - Final No growth in 5 days. 08/01/21 10:31 Blood Culture (Wb) - Left Hand Blood Culture - Final No growth in 5 days. 08/01/21 19:01 Stool Stool Occult Blood (CORINNE) - Final Meaningful Use Info Meaningful Use Diagnoses (Choose all that apply): None applicable Discharge Plan Admission Admit Date/Time: 07/31/21 16:39 Primary Reason for Your Visit: Debility, Iron deficiency Anemia Attending Provider: Logan Garcia Primary Care Provider: Silvia Tolbert Consulting Providers: Heber Devine ; Henry Vargas ; Stephanie Díaz NP ; Maribel Leblanc ; Genesis Garcia ; Dru Correa ; Jim Pizarro Discharge Orders/Prescriptions Prescriptions: New furosemide 40 mg Tablet 40 mg PO DAILY Qty: 0 0RF buspirone 5 mg Tablet 10 mg PO TID Qty: 0 0RF acetaminophen [Tylenol] 325 mg Tablet 650 mg PO Q6H PRN PRN (Reason: Pain Score 1-10/Temp > 100.7 F) Qty: 0 0RF sertraline 100 mg Tablet 150 mg PO DAILY Qty: 0 0RF ascorbic acid (vitamin C) 500 mg Tablet 500 mg PO BIDCM Qty: 0 0RF pantoprazole 40 mg Tablet,Delayed Release (Dr/Ec) 40 mg PO BID Qty: 0 0RF ferrous sulfate [FeroSul] 325 mg (65 mg iron) Tablet 325 mg PO BIDCM Qty: 0 0RF nystatin [Nyamyc] 100,000 unit/gram Powder 1 applic topical TID Qty: 0 0RF Protocol: *Topical Application Instructions APPLICATION INSTRUCTIONS: To folds lorazepam 1 mg Tablet 1 mg PO BID PRN PRN (Reason: Anxiety) 3 Days Qty: 6 0RF oxycodone 5 mg Tablet 5 mg PO Q4H PRN PRN (Reason: Pain Score 4-5) 3 Days Qty: 10 0RF Mag 64 64 mg Tablet,Delayed Release (Dr/Ec) 128 mg PO DAILY Qty: 0 0RF Juan (with collagen) 7-7-1.5 gram Powder In Packet 1 packet PO BIDCM Qty: 0 0RF Continued albuterol sulfate 2.5 MG/3 ML solution for nebulization 2.5 mg inhalation Q6HWA.RT PRN (Reason: Asthma) Label Comments: ASTHMA fluticasone propionate 1 SPRAY spray,suspension 2 spray NASAL DAILY PRN (Reason: Sinus Symptoms) Label Comments: ALLERGIES benzonatate 100 mg capsule 100 mg PO TID PRN (Reason: Cough) Label Comments: take 1 capsule by mouth three times a day if needed for cough cyclobenzaprine 5 mg tablet 5 mg PO TID PRN (Reason: Spasms) Label Comments: take 1 tablet by mouth three times a day if needed Discontinued losartan 100 MG tablet 100 mg PO DAILY Label Comments: bP furosemide 40 MG tablet 80 mg PO BIDLX Label Comments: DIURETIC Toujeo SoloStar U-300 Insulin 300 UNIT/ML insulin pen 65 unit SQ QHS Label Comments: DIABETES sertraline 100 MG tablet 100 - 150 mg PO DAILY Label Comments: DEPRESSION metolazone 5 mg tablet 5 mg PO BID PRN (Reason: fluid) Label Comments: take 1 tablet by mouth 30 MINUTES PRIOR TO TAKING LASIX IF NEEDED... (REFER TO PRESCRIPTION NOTES). pantoprazole 40 mg tablet,delayed release (DR/EC) 40 mg PO BID Label Comments: take 1 tablet by mouth twice a day before meals for 1 month then RETURN TO DAILY DOSING magnesium 250 mg Tablet 250 mg PO DAILY No Action lorazepam 1 MG tablet 0.5 - 1 mg PO BID PRN (Reason: Anxiety) Label Comments: take 1 tablet by mouth twice a day if needed- anxiety/nerves Referrals / Follow Up: Silvia Tolbert MD [Primary Care Provider] - Disposition Disposition (needs filled in before D/C Order can be placed): [facility]
[2021-08-15 11:16] LABS: Bedside Glucose 128 mg/dL (74-106)
--- NOTE | 2021-08-15 12:42 | CASEMGMT ---
Addendum entered by Nathalia Solis 08/15/21 16:20: Vivien from [facility] returned call stating they have submitted contract with insurance. [facility] is unable to secure a bariatric bed at this time but will have it tomorrow. Pt cannot discharge today. Pt and family updated. Charge nurse updated. Plan: [facility] SNF, tomorrow ZIGGY Valdes Addendum entered by Nathalia Solis 08/15/21 15:32: Social Work has not yet heard from [employer]. Call back to [employer] and spoke with Kayla, after reading Jasmin's notes she states contract has been sent to [facility] and [facility]h is awaiting [facility] to sign the contract and send it back to [employer]. Phone call to Vivien at [facility] who states they just received the contract and are working on signing and will send back to [employer]. CHRISTINA did inquire if pt can be discharged today. [facility] states that they need to obtain a bariatric bed for pt and have not done this yet. CHRISTINA informed [facility] that pt is ready for discharge. [facility] states she will talk to DON and call SW back shortly. ZIGGY Devlin Addendum entered by Nathalia Solis 08/15/21 14:34: Call placed to Dasha at [facility] [place]. Dasha is gone for the day and CHRISTINA spoke with Jasmin inquiring if contract has indeed been sent to [facility] as Dasha stated you would do first thing this morning. Jasmin states she will reach out to [employer] contractor to see if contract has been sent to [facility]. Jasmin assures this that someone will call this SW back with information. CHRISTINA provided correct phone number for return call. ZIGGY Devlin Original Note: Social Work SW placed call to Vivien at [facility]. [facility] states she has not yet received the contract from [employer] and will call this SW when contract is signed and pt can be admitted. ZIGGY Devlin
--- NOTE | 2021-08-15 15:42 | PCM.PN.HOSP ---
Subjective Subjective Patient seen and examined. Patient lying in bed no distress noted Objective Data Objective Data Vital Signs: Vital Signs Temp Pulse Resp BP Pulse Ox FiO2 97.8 F 80 16 149/84 H 96 28 08/15/21 14:55 08/15/21 14:55 08/15/21 14:55 08/15/21 14:55 08/15/21 14:55 08/15/21 03:20 Oxygen Flow Rate (L/min) 2 Oxygen Delivery Method Nasal Cannula Weight: 473 lb 15.901 oz Body Mass Index (BMI) 72.1 Intake & Output: Intake and Output for Last 24 Hours 08/13/21 08/14/21 08/15/21 23:59 23:59 23:59 Intake Total 480 / 480 1000 / 1000 480 / 480 Output Total 1600 / 1600 1150 / 1150 1150 / 1150 Balance -1120 / -1120 -150 / -150 -670 / -670 Lab / Micro Data Result Diagrams: 08/13/21 05:11 08/13/21 05:11 Labs: Laboratory Results - last 24 hr 08/14/21 16:14: POC Glucose 141 H 08/14/21 20:46: POC Glucose 166 H 08/15/21 06:13: POC Glucose 126 H 08/15/21 11:12: POC Glucose 128 H Micro: Microbiology 08/01/21 10:47 Blood Culture (Wb) - Anticubital Right Blood Culture - Final No growth in 5 days. 08/01/21 10:31 Blood Culture (Wb) - Left Hand Blood Culture - Final No growth in 5 days. 08/01/21 19:01 Stool Stool Occult Blood (CORINNE) - Final Physical Exam Const alert, oriented x3 and no apparent distress General Appearance: cooperative, comfortable, well kempt and well developed Orientation / Consciousness: awake, oriented to person, oriented to place, oriented to time and lethargic Exam Limitations: no limitations Nutritional Appearance: morbidly obese HEENT normocephalic, head/scalp atraumatic, hearing grossly normal bilaterally and moist oral mucous membranes Eyes conjunctivae normal and no scleral icterus Neck no lymphadenopathy, supple and thyroid normal General: trachea midline Resp normal respiratory effort and clear to auscultation bilaterally Resp Narrative: Distant secondary to body habitus but no adventitious sounds noted Effort and Inspection: able to speak in complete sentences and symmetric chest movement Cardio regular rate, regular rhythm, S1 normal heart sound and S2 normal heart sound Peripheral Pulses: pulses 2+ throughout GI normal to inspection, nondistended, normoactive bowel sounds, soft to palpation and non-tender GI Narrative: Large pannus Extremity normal to inspection, full ROM and no clubbing, cyanosis or edema Extremity Narrative: Patient has chronic lymphedematous changes to both lower legs, there is no evidence of cyanosis Skin no rashes or lesions noted, skin turgor normal, no jaundice, no petechiae and no mottling Skin Narrative: Patient has 2 friction ulcerations of her left upper inner thigh General Skin Exam: no breakdown Neuro oriented x3, moves all extremities, no focal motor deficits and no sensory deficits noted Neuro Narrative: Generalized weakness but no focal deficits Sensorium / Orientation: awake and alert Speech: speech normal Motor Exam: strength 5/5 throughout and general weakness Psych affect normal Psych Narrative: Affect is somewhat flat today and patient is tearful at times and we discussed her needing to go to a facility at discharge Assessment & Plan Assessment/Plan (1) Obesity hypoventilation syndrome: (2) Iron deficiency anemia: PLAN: Plan 1.? Acute on chronic iron deficiency anemia -continue oral iron supplementation 2. Generalized debility -PT and OT following -Awaiting placement at group home facility -Case management following, accepting facility [facility] however we are waiting for insurance approval as this is an out of network facility 3. Diabetes mellitus type 2 -ACH S blood sugars with sliding scale insulin ordered 4. Essential hypertension -Blood pressure currently stable -Vital signs per protocol 5. Chronic depression -Continue Zoloft 6. Gastritis -Continue Protonix twice daily 7. Chronic combined respiratory failure secondary to obesity hypoventilation syndrome -Continue nasal cannula oxygen and AVAPS at night and when sleeping.? -Family and patient understands that she will need to continue this when she is discharge from a group home facility DVT prophylaxis-no pharmacological prophylaxis at this time Patient was planned to DC today however she remains on did not require a bariatric bed as of yet This patient was seen by Terrie Hale NP-C under the supervision of Dr. Garcia. 12 minutes spent in clinical coordination of patient's plan of care.
[2021-08-15 16:41] LABS: Bedside Glucose 120 mg/dL (74-106)
[2021-08-15] MEDS: Albuterol 2.5 MG/3 ML VIAL.NEB. INHALATION (19:01)
[2021-08-15 22:26] LABS: Bedside Glucose 143 mg/dL (74-106)
[2021-08-16] VITALS (7 sets, daily range): BP systolic 139–153; BP diastolic 82–91; PULSE 65–84; RESP 15–23; TEMP 36.4–36.6; O2SAT 94–98
[2021-08-16] MEDS: busPIRone 5 MG Tablet 10 MG PO ×2 (05:34→13:11)
[2021-08-16] MEDS: Nystatin Powder 15gm Bottle 1 APPLIC TOPICAL ×2 (05:35→13:11)
[2021-08-16] MEDS: Acetaminophen 325 MG Tablet 650 MG PO ×2 (06:39→13:14)
[2021-08-16 06:46] LABS: Bedside Glucose 106 mg/dL (74-106)
[2021-08-16] MEDS: Magnesium Chloride 64 MG Delay Rel.Tablet 128 MG PO (08:30)
[2021-08-16] MEDS: Sertraline 100 MG Tablet 150 MG PO (08:30)
[2021-08-16] MEDS: Pantoprazole Sodium 40 MG Tablet PO (08:30)
[2021-08-16] MEDS: Furosemide 40 MG Tablet PO (08:30)
[2021-08-16] MEDS: Juven (unflavored) Packet 1 PACKET PO (08:30)
[2021-08-16] MEDS: Ascorbic Acid 500 MG Tablet PO (08:30)
[2021-08-16] MEDS: Ferrous Sulfate 325 MG Tablet PO (08:32)
--- NOTE | 2021-08-16 09:02 | CASEMGMT ---
CHRISTINA called Sindy at [facility] and left her a voice mail inquiring when CHRISTINA can set up transport. Toya Brown DISTRIBUTION DESIGNER MARIELA
--- NOTE | 2021-08-16 10:13 | NURSING ---
Gave report to Gloria ROSENBERG RN
--- NOTE | 2021-08-16 10:18 | CASEMGMT ---
CHRISTINA called [facility] and spoke with Sindy. They have the bariatric bed. CHRISTINA will send orders and set up transport. CHRISTINA arranged for patient to get picked up at 1p via cot by [facility]. CHRISTINA faxed orders and brick picker time to [facility]. CHRISTINA notified RN, inside tester, and patient. Patient and her significant other said they would notify her sons. CHRISTINA will fax COVID test once resulted. CHRISTINA completed 7000 in [place]. Plan: d/c to [facility] under skilled level of care on a 7000. [facility] transported via bariatric cot. Toya Brown GRAPHOTYPE OPERATOR MARIELA
--- NOTE | 2021-08-16 10:32 | NURSING ---
Called report to Angélica PEREZ at [facility]
--- NOTE | 2021-08-16 10:56 | CASEMGMT ---
SW faxed negative COVID test to [facility]. Toya Brown MOLD MECHANIC ACTIVITY THERAPIST
[2021-08-16] MEDS: oxyCODONE 5 MG Tablet PO (11:19)
[2021-08-16 11:30] LABS: Bedside Glucose 129 mg/dL (74-106)
--- NOTE | 2021-08-16 14:48 | CASEMGMT ---
[facility] called and delayed transportation 2 times. Now they are stating they will be at [facility] between 330 and 4. Toya Brown MSW MARIELA
[2021-08-16] MEDS: DiphenhydrAMINE 25 MG Capsule PO (15:00)
[2021-08-16] MEDS: Albuterol 2.5 MG/3 ML VIAL.NEB. INHALATION (16:09)
== END 2021-08-16 16:35 | disposition skilled nursing facility (03) | DRG 812 ==
LOC: ED 16:21 → PCU 16:51
PROVIDERS: Anesthesiology; Internal Medicine; Internal Medicine Gastroenterology; Nurse Practitioner Family; Admitting Provider Student in an Organized Health Care Education/Training Program; Emergency Provider Emergency Medicine; PCP Internal Medicine; Visit Provider Family Medicine
PROC: 0DJ08ZZ Inspection of Upper Intestinal Tract, Via Natural or Artificial Opening Endoscopic (ICD-10-PCS; CPT 43235; principal; 2021-08-02 11:25)
DX: D50.9 Iron deficiency anemia, unspecified (principal); J96.12 Chronic respiratory failure with hypercapnia; N17.9 Acute kidney failure, unspecified; E66.2 Morbid (severe) obesity with alveolar hypoventilation; Z68.45 Body mass index [BMI] 70 or greater, adult; J96.11 Chronic respiratory failure with hypoxia; E11.9 Type 2 diabetes mellitus without complications; Z79.4 Long term (current) use of insulin; F41.9 Anxiety disorder, unspecified; I10 Essential (primary) hypertension; J45.909 Unspecified asthma, uncomplicated; I87.8 Other specified disorders of veins; K22.70 Barrett's esophagus without dysplasia; K29.50 Unspecified chronic gastritis without bleeding; G89.29 Other chronic pain; Z79.899 Other long term (current) drug therapy; Z91.19 Patient's noncompliance with other medical treatment and regimen; R13.10 Dysphagia, unspecified; R53.81 Other malaise
CPT/HCPCS: 36415; 36600; 71045; 80048; 80053; 80076; 80307; 81001; 82140; 82274; 82728; 82803; 82962; 83036; 83540; 83550; 84484; 85014; 85018; 85025; 85610; 85730; 87040; 87426; 88305; 88313; 88341; 88342; 92507; 92526; 92610; 93005; 94002; 94003; 94640; 94762; 97110; 97163; 97167; 97530; 97535; 99251; 99285; J7030; J7050; A4216; G0463; J2916

== ENCOUNTER 2021-11-13 11:27 | Emergency (ER) | payer MEDICAID, SELFPAY ==
[2021-11-13 11:29] VITALS: BP 168/70; PULSE 76; RESP 16; TEMP 37.1; O2SAT 98; BMI 67.6
[2021-11-13 11:31] VITALS: BP 168/70; PULSE 76; RESP 16; TEMP 37.1; O2SAT 98
--- NOTE | 2021-11-13 12:17 | EX.ED.UPPERE ---
HPI History of Present Illness Chief Complaint: Upper Extremity Injury Informant: patient, family and SNF Narrative Narrative: 60-year-old female presenting from [facility] with concerns for possible blood clot in the right arm. She tells me that she is there due to deconditioning after having spent a month in the hospital. She states that at times they have to pick her up in the armpits and a couple days ago had a 1 of those such times. Since then she has had some bruising in the medial aspect of the upper right arm and now notes a hard lump. She denies any hand or arm swelling. She denies any fever or redness. She notes minimal tenderness. She was sent in out of concern for DVT. [facility] Medical History Anemia Anxiety Asthma Chronic respiratory failure with hypoxia and hypercapnia CPAP (continuous positive airway pressure) dependence Hypertension Obesity Sleep apnea Type 2 diabetes mellitus Home Medications albuterol sulfate 2.5 mg/3 mL (0.083 %) solution for nebulization 2.5 mg inhalation Q6HWA.RT PRN Asthma 11/23/12 [History Last Taken 07/31/21 13:00] lorazepam 1 mg tablet 0.5 - 1 mg PO BID PRN Anxiety 09/27/14 [History Last Taken 07/30/15] fluticasone propionate 50 mcg/actuation nasal spray,suspension 2 spray DAILY PRN Sinus Symptoms 02/22/16 [History Last Taken 1 Week Ago ~07/24/21] benzonatate 100 mg capsule 100 mg PO TID PRN Cough 07/31/21 [History Last Taken 07/31/21] cyclobenzaprine 5 mg tablet 5 mg PO TID PRN Spasms 07/31/21 [History Last Taken Unknown] acetaminophen 325 mg tablet (Tylenol) 650 mg PO Q6H PRN PRN Pain Score 1-10/Temp > 100.7 F #0 tabs 08/15/21 [Rx Last Taken Unknown] arginine 7 gram-glutam 7 gram-CaHMB 1.5 oryp-raehq-ax-min oral pwd pkt (Juan (with collagen)) 1 packet PO BIDCM #0 ea 08/15/21 [Rx Last Taken Unknown] ascorbic acid (vitamin C) 500 mg tablet 500 mg PO BIDCM #0 tabs 08/15/21 [Rx Last Taken Unknown] buspirone 5 mg tablet 10 mg PO TID #0 tabs 08/15/21 [Rx Last Taken Unknown] ferrous sulfate 325 mg (65 mg iron) tablet (FeroSul) 325 mg PO BIDCM #0 tabs 08/15/21 [Rx Last Taken Unknown] furosemide 40 mg tablet 40 mg PO DAILY #0 tabs 08/15/21 [Rx Last Taken Unknown] lorazepam 1 mg tablet 1 mg PO BID PRN PRN Anxiety 3 days #6 tabs 08/15/21 [Rx Last Taken Unknown] magnesium chloride 64 mg (magnesium chloride) tablet,delayed release (Mag 64) 128 mg PO DAILY #0 tabs 08/15/21 [Rx Last Taken Unknown] nystatin 100,000 unit/gram topical powder (Nyamyc) 1 applic topical TID #0 grams 08/15/21 [Rx Last Taken Unknown] oxycodone 5 mg tablet 5 mg PO Q4H PRN PRN Pain Score 4-5 3 days #10 tabs 08/15/21 [Rx Last Taken Unknown] pantoprazole 40 mg tablet,delayed release 40 mg PO BID #0 tabs 08/15/21 [Rx Last Taken Unknown] sertraline 100 mg tablet 150 mg PO DAILY #0 tabs 08/15/21 [Rx Last Taken Unknown] Allergy/AdvReac Type Severity Reaction Status Date / Time codeine Allergy Nausea/Vom/ Verified 07/31/21 13:31 Diarrhea iodine Allergy Swelling Verified 07/31/21 13:31 latex Allergy Shortness Verified 07/31/21 13:31 of breath meloxicam Allergy Rash Verified 07/31/21 13:31 Penicillins Allergy Shortness Verified 07/31/21 13:31 of breath tositumomab Allergy NEEDS Verified 11/13/21 11:28 FOLLOW-UP hydrocodone bitartrate AdvReac Nausea/Vom/ Verified 07/31/21 13:31 [From Vicodin] Diarrhea prednisone AdvReac Other Verified 07/31/21 13:31 Surgical History History of cholecystectomy Social History (Updated 11/13/21 @ 12:[address] Guru Pizano DO) Smoking Status: Never smoker substance use type: does not use ROS ROS ED Constitutional Constitutional ED: Denies chills or weight loss Eyes Eyes: Denies change in vision or diplopia ENT ENT ED: Denies ear pain, rhinorrhea or sore throat Cardiovascular Cardiovascular: Denies chest pain, orthopnea, palpitations or racing heartbeat Respiratory/Chest Respiratory/Chest: Denies cough, dyspnea or orthopnea Gastrointestinal Gastrointestinal: Denies abdominal pain, diarrhea, nausea or vomiting Genitourinary Genitourinary ED: Denies dysuria, hematuria or urinary frequency Musculoskeletal Musculoskeletal: Denies arthralgias or myalgias Integumentary Reports other Details: Ecchymosis swelling right arm ; Denies abscess or rash Neurologic Neurologic: Denies headache(s) or weakness Psychiatric Psychiatric: Denies anxiety, depression, suicidal ideation or suicidal thoughts Endocrine Endocrinology: Denies polydipsia, polyphagia or polyuria Allergic/Immunologic Allergic/Immunologic ED: Denies mouth swelling, tongue swelling or urticaria EXAM Physical Exam Const Vital Signs: 11/13/21 11:29 11/13/21 11:31 Temperature 98.7 F 98.7 F Temperature Source Oral Oral Pulse Rate 76 76 Respiratory Rate 16 16 Blood Pressure 168/70 H 168/70 H Blood Pressure Mean 102 102 Pulse Ox 98 98 Oxygen Delivery Method Room Air Room Air Positive well nourished, well developed and obese General Appearance ED: well developed Nutritional Appearance: obese HEENT Reports normocephalic, head/scalp atraumatic and moist mucous membranes Eyes PERRL and EOMs intact bilaterally Neck no lymphadenopathy, supple and no JVD Resp normal respiratory effort and clear to auscultation bilaterally Cardio regular rate, regular rhythm and no murmurs GI normal to inspection, nondistended, normoactive bowel sounds and non-tender Palpation: soft Back/Spine no CVA tenderness and normal ROM Extremity Extremity Narrative: Upper medial aspect near the axilla demonstrates an area of ecchymosis. Just posterior to this is a mobile firm half centimeter to centimeter irregular lump. Its not tender. Using bedside ultrasound there is no vascularity to this lesion. It is a way from brachial vein complex. General Extremety ED: Negative for edema General Extremity: Negative for edema Neuro oriented x3 and CN's II-XII intact bilaterally Sensorium / Orientation: alert Motor Exam: strength 5/5 throughout Psych mental status grossly normal Mood & Affect: Negative for depressed or tearful Skin no rashes or lesions noted and no wounds MDM MDM MDM Narrative Medical decision making narrative: Because there is no vascularity to this is away from the brachial vein this is most likely a hematoma. She has no distal arm swelling. I do not believe this to be DVT. 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 Was advised this may take some time to resolve. Monitor for changes return if worsening or concerns Discharge Plan Triage Chief Complaint: Upper Extremity Injury ED Provider: Guru Pizano Dx/Rx/DC Orders Clinical Impression: Hematoma of right axilla, Obesity hypoventilation syndrome, Weakness Prescriptions: No Action albuterol sulfate 2.5 MG/3 ML solution for nebulization 2.5 mg inhalation Q6HWA.RT PRN (Reason: Asthma) Label Comments: ASTHMA lorazepam 1 MG tablet 0.5 - 1 mg PO BID PRN (Reason: Anxiety) Label Comments: take 1 tablet by mouth twice a day if needed- anxiety/nerves fluticasone propionate 1 SPRAY spray,suspension 2 spray NASAL DAILY PRN (Reason: Sinus Symptoms) Label Comments: ALLERGIES benzonatate 100 mg capsule 100 mg PO TID PRN (Reason: Cough) Label Comments: take 1 capsule by mouth three times a day if needed for cough cyclobenzaprine 5 mg tablet 5 mg PO TID PRN (Reason: Spasms) Label Comments: take 1 tablet by mouth three times a day if needed furosemide 40 mg Tablet 40 mg PO DAILY Qty: 0 0RF buspirone 5 mg Tablet 10 mg PO TID Qty: 0 0RF acetaminophen [Tylenol] 325 mg Tablet 650 mg PO Q6H PRN PRN (Reason: Pain Score 1-10/Temp > 100.7 F) Qty: 0 0RF sertraline 100 mg Tablet 150 mg PO DAILY Qty: 0 0RF ascorbic acid (vitamin C) 500 mg Tablet 500 mg PO BIDCM Qty: 0 0RF pantoprazole 40 mg Tablet,Delayed Release (Dr/Ec) 40 mg PO BID Qty: 0 0RF ferrous sulfate [FeroSul] 325 mg (65 mg iron) Tablet 325 mg PO BIDCM Qty: 0 0RF nystatin [Nyamyc] 100,000 unit/gram Powder 1 applic topical TID Qty: 0 0RF Protocol: *Topical Application Instructions APPLICATION INSTRUCTIONS: To folds lorazepam 1 mg Tablet 1 mg PO BID PRN PRN (Reason: Anxiety) 3 Days Qty: 6 0RF oxycodone 5 mg Tablet 5 mg PO Q4H PRN PRN (Reason: Pain Score 4-5) 3 Days Qty: 10 0RF Mag 64 64 mg Tablet,Delayed Release (Dr/Ec) 128 mg PO DAILY Qty: 0 0RF Juan (with collagen) 7-7-1.5 gram Powder In Packet 1 packet PO BIDCM Qty: 0 0RF Primary Care Provider: Silvia Tolbert Referrals: Silvia Tolbert MD [Primary Care Provider] -
--- NOTE | 2021-11-13 12:23 | ED.RN ---
report called to thierno
== END 2021-11-13 14:21 | disposition skilled nursing facility (03) ==
PROVIDERS: Emergency Provider Emergency Medicine; PCP Internal Medicine; Visit Provider Emergency Medicine
DX: S40.021A Contusion of right upper arm, initial encounter (principal); J96.11 Chronic respiratory failure with hypoxia; J96.12 Chronic respiratory failure with hypercapnia; E66.2 Morbid (severe) obesity with alveolar hypoventilation; Z68.44 Body mass index [BMI] 60.0-69.9, adult; E11.9 Type 2 diabetes mellitus without complications; F41.9 Anxiety disorder, unspecified; I10 Essential (primary) hypertension; Z79.899 Other long term (current) drug therapy; D64.9 Anemia, unspecified; X58.XXXA Exposure to other specified factors, initial encounter
CPT/HCPCS: 99284; A4216

== ENCOUNTER 2021-11-18 19:10 | Inpatient (IN) | payer MEDICAID, SELFPAY ==
[2021-11-18] VITALS (11 sets, daily range): BP systolic 103–162; BP diastolic 48–125; PULSE 39–189; RESP 16–25; TEMP 35.8–37.1; O2SAT 93–99; BMI 67.1; BMI 67.7
--- NOTE | 2021-11-18 19:22 | EKG12_ITS ---
Test Reason : dysrythmia Blood Pressure : / mmHG Vent. Rate : 083 BPM Atrial Rate : 000 BPM P-R Int : 000 ms QRS Dur : 182 ms QT Int : 488 ms P-R-T Axes : 000 -82 073 degrees QTc Int : 573 ms Wide QRS rhythm with frequent Premature ventricular complexes Right bundle branch block Left anterior fascicular block Bifascicular block Possible Lateral infarct , age undetermined Cannot rule out Inferior infarct (masked by fascicular block?) , age undetermined Abnormal ECG Confirmed by RAHEL HANKINS, ANTONIA ([id number]), industrial editor KANIKA SWEENEY ([id number]) on 11/20/2021 1:02:18 PM Referred By: Jet Confirmed By:ANTONIA MCGINNIS MD
--- NOTE | 2021-11-18 19:23 | EKG12_ITS ---
Test Reason : dysrythmia Blood Pressure : / mmHG Vent. Rate : 124 BPM Atrial Rate : 000 BPM P-R Int : 000 ms QRS Dur : 150 ms QT Int : 466 ms P-R-T Axes : 000 261 062 degrees QTc Int : 669 ms Wide complex tachycardia r/t electrolyte imbalance Possible Lateral infarct , age undetermined Inferior infarct , age undetermined Abnormal ECG Confirmed by RAHEL HANKINS, ANTONIA ([id number]), production editor KANIKA SWEENEY ([id number]) on 11/20/2021 1:05:19 PM Referred By: Jet Confirmed By:ANTONIA MCGINNIS MD
--- NOTE | 2021-11-18 19:24 | EX.ED.DYSGE1 ---
HPI History of Present Illness Chief Complaint: Weakness Informant: patient and family Onset/Context/Timing Onset: Days Context: Gradual Onset Timing: Continuous Current Severity: Mild Maximum Severity: Mild Narrative Narrative: 60-year-old female past medical history of diabetes, respiratory failure chronically on oxygen and BiPAP at night and anemia. Was hospitalized a little over a month ago and then was discharged to [facility] for rehabilitation. Currently she is unable to ambulate due to generalized weakness they are working on that through physical therapy. She states today she feels weak all over. Denies nausea or vomiting. Denies fever or chills. Denies dysuria. Was recently treated for UTI on antibiotics. Denies chest pain. Her headache. Denies abdominal pain but has had constipation. Prior similar symptoms: No Recent Illness/Hospitalization: Yes [facility] Medical History Anemia Anxiety Asthma Chronic respiratory failure with hypoxia and hypercapnia CPAP (continuous positive airway pressure) dependence Hypertension Obesity Sleep apnea Type 2 diabetes mellitus Home Medications albuterol sulfate 2.5 mg/3 mL (0.083 %) solution for nebulization 2.5 mg inhalation Q6HWA.RT PRN Asthma 11/23/12 [History Last Taken 07/31/21 13:00] lorazepam 1 mg tablet 0.5 - 1 mg PO BID PRN Anxiety 09/27/14 [History Last Taken 07/30/15] fluticasone propionate 50 mcg/actuation nasal spray,suspension 2 spray DAILY PRN Sinus Symptoms 02/22/16 [History Last Taken 1 Week Ago ~07/24/21] benzonatate 100 mg capsule 100 mg PO TID PRN Cough 07/31/21 [History Last Taken 07/31/21] cyclobenzaprine 5 mg tablet 5 mg PO TID PRN Spasms 07/31/21 [History Last Taken Unknown] acetaminophen 325 mg tablet (Tylenol) 650 mg PO Q6H PRN PRN Pain Score 1-10/Temp > 100.7 F #0 tabs 08/15/21 [Rx Last Taken Unknown] ascorbic acid (vitamin C) 500 mg tablet 500 mg PO BIDCM #0 tabs 08/15/21 [Rx Last Taken Unknown] ferrous sulfate 325 mg (65 mg iron) tablet (FeroSul) 325 mg PO BIDCM #0 tabs 08/15/21 [Rx Last Taken Unknown] lorazepam 1 mg tablet 1 mg PO BID PRN PRN Anxiety 3 days #6 tabs 08/15/21 [Rx Last Taken Unknown] magnesium chloride 64 mg (magnesium chloride) tablet,delayed release (Mag 64) 128 mg PO DAILY #0 tabs 08/15/21 [Rx Last Taken Unknown] nystatin 100,000 unit/gram topical powder (Nyamyc) 1 applic topical TID #0 grams 08/15/21 [Rx Last Taken Unknown] oxycodone 5 mg tablet 5 mg PO Q4H PRN PRN Pain Score 4-5 3 days #10 tabs 08/15/21 [Rx Last Taken Unknown] bisacodyl 10 mg rectal suppository (Dulcolax (bisacodyl)) 10 mg [place] DAILY 11/18/21 [History Last Taken Unknown] diclofenac sodium 1 % topical gel ea topical 11/18/21 [History Last Taken Unknown] dulaglutide 1.5 mg/0.5 mL subcutaneous pen injector (Trulicity) 1.5 mg subcut QWEEK 11/18/21 [History Last Taken Unknown] erythromycin 2 % topical ointment 1 ea topical 1XD 11/18/21 [History Last Taken Unknown] furosemide 40 mg tablet 80 mg PO DAILY 11/18/21 [History Last Taken Unknown] gabapentin 100 mg capsule 100 mg PO TID 11/18/21 [History Last Taken Unknown] ibuprofen 400 mg tablet (IBU) 400 mg PO Q8H 11/18/21 [History Last Taken Unknown] insulin glargine U-300 conc 300 unit/mL (1.5 mL) subcutaneous pen (Olga SoloStar U-300 Insulin) 40 unit subcut DAILY 11/18/21 [History Last Taken Unknown] insulin lispro 100 unit/mL subcutaneous pen 2 unit subcut TID 11/18/21 [History Last Taken Unknown] metoclopramide HCl 5 mg tablet (Reglan) 5 mg PO DAILY 11/18/21 [History Last Taken Unknown] omeprazole 40 mg capsule,delayed release 40 mg PO DAILY 11/18/21 [History Last Taken Unknown] oxycodone 5 mg tablet 5 mg PO Q6H 11/18/21 [History Last Taken Unknown] potassium chloride 20 mEq tablet,extended release 40 meq PO BID 11/18/21 [History Last Taken Unknown] sulfamethoxazole 800 mg-trimethoprim 160 mg tablet (Bactrim DS) 1 tab PO BID 11/18/21 [History Last Taken Unknown] venlafaxine 75 mg capsule,extended release 24 hr (Effexor XR) 75 mg PO DAILY 11/18/21 [History Last Taken Unknown] Allergy/AdvReac Type Severity Reaction Status Date / Time codeine Allergy Nausea/Vom/ Verified 11/18/21 19:20 Diarrhea iodine Allergy Swelling Verified 11/18/21 19:20 latex Allergy Shortness Verified 11/18/21 19:20 of breath meloxicam Allergy Rash Verified 11/18/21 19:20 Penicillins Allergy Shortness Verified 11/18/21 19:20 of breath tositumomab Allergy NEEDS Verified 11/18/21 19:20 FOLLOW-UP hydrocodone bitartrate AdvReac Nausea/Vom/ Verified 11/18/21 19:20 [From Vicodin] Diarrhea prednisone AdvReac Other Verified 11/18/21 19:20 Surgical History History of cholecystectomy Social History Smoking Status: Never smoker substance use type: does not use ROS ROS ED ROS Narrative Generalized weakness. Review of Systems ROS Unobtainable: Denies due to encephalopathy Constitutional Constitutional ED: Denies chills or fever(s) Eyes Eyes: Denies blurry vision ENT ENT ED: Denies ear pain Cardiovascular Cardiovascular: Denies chest pain or palpitations Respiratory/Chest Respiratory/Chest: Denies cough or dyspnea Gastrointestinal Gastrointestinal: Denies abdominal pain Genitourinary Genitourinary ED: Denies dysuria or hematuria Musculoskeletal Musculoskeletal: Denies arthralgias Integumentary Denies abscess Neurologic Neurologic: Denies headache(s) Psychiatric Psychiatric: Denies anxiety Endocrine Endocrinology: Denies cold intolerance Hematologic/Lymphatic Hematologic/Lymphatic: Reports anemia Allergic/Immunologic Allergic/Immunologic ED: Denies mouth swelling or tongue swelling EXAM Physical Exam Narrative Exam Narrative: 60-year-old female vital signs initially are stable blood pressure 144/90 pulse is bradycardic at 44. On 2 L she is chronically on oxygen her pulse ox 9 9%. Afebrile. H EENT exam unremarkable atraumatic. Moist Riis membranes. Neck nontender no JVD. Lungs clear to auscultation. Heart bradycardic. Abdomen obese soft nontender normal bowel sounds no peritoneal signs. Moving all 4 extremities. 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 Dorsi plantarflexion intact. Chronic venous stasis changes on her lower extremities. Neurologically she is awake alert. Answers questions follows commands. Const Vital Signs: 11/18/21 19:11 11/18/21 19:15 11/18/21 19:19 Temperature 96.5 F L Temperature Source Temporal Pulse Rate 44 L 189 H Respiratory Rate 24 H 23 H Respiratory Effort Normal Respiratory Pattern Tachypnea Blood Pressure 144/90 H 162/122 H Blood Pressure Mean 108 135 Pulse Ox 99 96 Oxygen Delivery Method Nasal Cannula Nasal Cannula Oxygen Flow Rate (L/min) 2 2 11/18/21 19:28 11/18/21 20:33 Temperature 98.2 F Temperature Source Temporal Pulse Rate 42 L 39 L Respiratory Rate 25 H 16 Respiratory Effort Respiratory Pattern Blood Pressure 148/125 H 103/92 H Blood Pressure Mean 132 95 Pulse Ox 94 98 Oxygen Delivery Method Nasal Cannula Room Air Oxygen Flow Rate (L/min) 2 Positive well nourished, well developed and obese; Negative for cachectic, contractures or unkempt General Appearance ED: well developed and NAD; Negative for unkempt, cachectic, contractures, cyanotic or diaphoretic Nutritional Appearance: obese; Negative for cachectic HEENT Reports moist mucous membranes; Denies dry mucous membranes Negative for trauma or tenderness Mouth ED: No dry mucous membranes Mouth: No dry mucous membranes Eyes PERRL and EOMs intact bilaterally General Eye ED: Negative for pale conjunctiva or scleral icterus Neck no lymphadenopathy General: Negative for tenderness Chest Wall inspection of chest normal and palpation of chest normal Resp normal respiratory effort and clear to auscultation bilaterally Effort and Inspection: Negative for retractions Auscultation: Negative for rales, rhonchi or wheezes Cardio S1 normal heart sound and S2 normal heart sound; Negative for regular rate or regular rhythm Rate: bradycardia GI normal to inspection, nondistended, normoactive bowel sounds, non-tender, non-distended and no masses Inspection: Negative for abdominal distention Auscultation: normoactive bowel sounds Palpation: soft; Negative for tender or guarding Extremity normal to inspection General Extremety ED: Negative for tenderness Neuro oriented x3 Sensorium / Orientation: alert; Negative for orientation impaired, lethargic or stuporous Motor Exam: strength 5/5 throughout Psych Appearance: Negative for unkempt Skin no rashes or lesions noted Lesions: No lesion noted Rashes: No rashes noted Trauma: Negative for abrasion Wounds: Negative for wounds noted MDM MDM MDM Narrative Medical decision making narrative: 60-year-old female from extended-care facility with generalized weakness. Exam benign except she seems to be running bradycardic with a wide complex rhythm. Repeat exam at 2030 p.m. patient doing well. We are beginning to treat her hyperkalemia with albuterol aerosols, calcium gluconate, insulin and dextrose and Kayexalate. I have already spoken to the hospitalist she is down evaluate the patient. She will be admitted to the intensive care unit. This does hurt explain her dysrhythmia and also her interventricular conduction delay. Patient is critically ill.. This was all discussed with her and the family. Lab Data Attestation: I reviewed the patient's lab results. Lab results narrative: CBC shows a white count 9 H&H 9.6 and 34 which is consistent with her baseline chronic anemia. Platelets of 291. Urinalysis shows no nitrites 10-25 red cells no white cells rare bacteria and its negative. Chest x-ray cardiomegaly. Chronic changes. Electrolytes show a potassium of 8.8 with a gap of 5 acute kidney injury with a BUN of 57 and creatinine of 2.52. Glucose of 122. Liver enzymes are unremarkable except for an alk phos of 234. TSH is elevated at 5.59. Blood gas showed a pH of 7.32 with a PCO2 of 49 and a PO2 of 71 and a O2 saturation of 92.5 %. Labs: Laboratory Results - last 24 hr 11/18/21 11/18/21 11/18/21 19:43 19:43 19:50 WBC 9.0 RBC 3.36 L Hgb 9.6 L Hct 34.3 L MCV 102.1 H MCH 28.6 MCHC 28.0 L RDW Std Deviation 59.7 H RDW Coeff of Amirah 16.0 H Plt Count 291 MPV 10.4 Immature Gran % (Auto) 0.400 Neut % (Auto) 71.2 H Lymph % (Auto) 18.5 L [place] % (Auto) 9.3 Eos % (Auto) 0.2 Baso % (Auto) 0.4 Absolute Neuts (auto) 6.4 Absolute Lymphs (auto) 1.67 Nucleated RBC % 0 Sodium 137 Potassium 8.8 H* Chloride 103 Carbon Dioxide 29.0 Anion Gap 5 BUN 57 H Creatinine 2.52 H Estim Creat Clear Calc 23.65 Est GFR (MDRD) Af Amer 25 L Est GFR (MDRD) Non-Af 21 L BUN/Creatinine Ratio 22.6 H Glucose 122 H Calcium 9.3 Total Bilirubin 0.50 AST 49 H ALT 31 Alkaline Phosphatase 234 H Troponin I High Sens 18 Total Protein 9.7 H Albumin 3.0 L Globulin 6.7 H Albumin/Globulin Ratio 0.4 L TSH 5.59 H Urine Color Yellow Urine Clarity Clear Urine pH 5.0 Ur Specific [place] 1.015 Urine Protein 30 H Urine Glucose (UA) Normal Urine Ketones Negative Urine Occult Blood 150 H Urine Nitrite Negative Urine Bilirubin Negative Urine Urobilinogen 4 H Ur Leukocyte Esterase 25 H Urine RBC 10-25 SEEN Urine WBC 0-5 SEEN Ur Squamous Epith Cells 0-5 SEEN Urine Bacteria RARE Urine Mucus 0 SEEN ABG Data ABG results: ABG 11/18/21 19:49 Specimen Type ART Sample Site L Radial pH 7.33 L Bicarbonate Actual 25.7 Total CO2 27 Base Excess 0 O2 Saturation 93 L ABG pCO2 49.3 H ABG pO2 71 L Cyril Test Positive O2 Delivery Device Cannula Liter Flow 2.0 Radiography Chest X-Ray - ED: 1 View, Read by ED Physician, Lungs, Mediastinum, Bony Structures, No Acute Disease, Chronic Changes and Cardiomegaly Diagnostic Testing: Clinical Impression(s) from Imaging Studies Chest X-Ray 11/18/21 19:52 IMPRESSION: Question CHF. Electronically Signed: Ralph Ramírez DO at 20:39 EDT Reading Location ID and State: [facility] / [place] Tel [phone], Service support , Chest x-ray, portable, single view shows cardiomegaly and chronic changes. Interpreted by myself. History of cardiomegaly. Rhythm Strip Rhythm Strip: junctional Rate: 43 Ectopy: None EKG Initial EKG: Attestation: I personally reviewed and interpreted this EKG as follows: Interpretation: No Acute Injury Pattern Comments: Junctional rhythm rate of 43 with an intraventricular conduction delay. Prior EKG tracings: available for review Prior: Changed Critical Care Time Critical Care Time: Yes Critical care time (excluding procedures): 30-74 minutes, Including time spent:, Discussing w/Patient &/or Family/Supervisor Stage Carpentry, Discussing w/Consultants, Arranging Admission or Transfer, Performing Direct Patient Care at Bedside and - (35 minutes) Discharge Plan Dx/Rx/DC Orders Clinical Impression: Generalized weakness, Bradycardia, History of diabetes mellitus, Chronic anemia, Obesity hypoventilation syndrome, Unable to ambulate, Chronic respiratory insufficiency, Acute hyperkalemia Disposition Disposition: Acute Care Hospital [facility]
[2021-11-18 19:52] LABS: Absolute Lymphocyte Count 1.67 X10^3/uL (0.83-4.51); Absolute Neutrophil Count 6.4 X10^3/uL (2.0-7.7); Basophil# 0.04 X10^3/uL; Basophil% 0.4 % (0-1); Eosinophil# 0.02 X10^3/uL; Eosinophils% 0.2 % (0-5); Hematocrit 34.3 % (37-47); Hemoglobin 9.6 g/dL (12.0-15.0); Lymphocyte # 1.67 X10^3/ul (0.83-4.51); Lymphocyte % 18.5 % (19-41); Mean Corpuscular Hgb 28.6 pg (27.0-32.0); Mean Corpuscular Volume 102.1 fL (81-99); Mean Platelet Vol. 10.4 fl (6.2-12.0); Monocyte# 0.84 X10^3/uL; Monocyte% 9.3 % (0-10); NRBC Flagged by Analyzer 0 % (0-5); Neutrophil # 6.43 X10^3/uL (2.7-7.7); Neutrophil % 71.2 % (47-70); Platelet Count 291 K/mm3 (150-450); RBC Distribution Width SD 59.7 fl (35.1-43.9); Red Blood Count 3.36 M/mm3 (4.2-5.4)
--- NOTE | 2021-11-18 19:52 | RAD_ITS ---
STUDY: X-RAY CHEST REASON FOR EXAM: Female, 60 years old. Weakness. TECHNIQUE: Single AP portable view of the chest. COMPARISON: 08/01/2021 FINDINGS: Slightly improved inspiratory effort when compared to the prior study. There is diffuse perihilar interstitial changes. There is resolution of the right basilar density seen on the previous exam. Stable cardiomegaly. Normal mediastinum and nki. Mild central vascular prominence. Normal visualized aortic arch and descending thoracic aorta. Normal visualized thoracic spine. Normal visualized ribs, clavicles, and shoulders. There is no demonstrated abnormality of the visualized soft tissue structures of the upper abdomen. RAD/Chest 1 View (Portable) IMPRESSION: Question CHF. Electronically Signed: Ralph Ramírez DO at 20:39 EDT ,
[2021-11-18 19:55] LABS: Allen Test Positive; Base Excess 0 mmol/L (-2 to +2); Bicarbonate 25.7 mmol/L (22-26); Blood Gas Specimen Type ART; O2 Delivery Device Cannula; PO2 71 mmHG (75-100); SITE L Radial; SO2 93 % (95-99); Total Carbon Dioxide 27 mmol/L; pCO2 49.3 mmHg (35-45); pH 7.33 (7.35-7.45)
[2021-11-18 19:58] LABS: Mucous, Urine 0 SEEN /hpf (<or=2+)
[2021-11-18 20:08] LABS: Color, Urine Yellow (Yellow); Glucose, Dipstick Normal (Normal); Ketone-Dipstick Negative (Negative); Leukocyte Esterase-Dipstick 25 /ul (Negative); Nitrite-Dipstick Negative (Negative); Occult Blood-Urine 150 /ul (Negative); Protein-Dipstick 30 mg/dl (Negative); Specific Gravity, Urine 1.015 (1.002-1.030); Urine Bilirubin Dipstick Negative (Negative); Urine Clarity Clear (Clear); Urine Urobilinogen 4 mg/dl (Normal)
[2021-11-18 20:15] LABS: Red Blood Cells-Urine 10-25 SEEN /hpf (0-5); Squamous Epithelial Cells - UA 0-5 SEEN /hpf (5-10); White Blood Cells 0-5 SEEN /hpf (0-5)
[2021-11-18 20:16] LABS: Bacteria RARE /hpf (None Seen)
[2021-11-18 20:22] LABS: ALB/GLOB Ratio 0.4 RATIO (0.9-2.4); AST(SGOT) 49 U/L (15-37); Alanine Aminotransfer ALT/SGPT 31 U/L (13-56); Alkaline Phosphatase 234 U/L (45-117); Anion Gap 5 (5-15); BUN 57 mg/dL (7-18); BUN/Creat Ratio 22.6 RATIO (10-20); Calcium,Total 9.3 mg/dL (8.5-10.1); Chloride 103 mmol/L (98-107); Creatinine, Serum 2.52 mg/dL (0.55-1.02); EST Glomerular Filtration Rate 21 mL/min (>60); Est Glom Filt Rate - Afr Amer 25 mL/min (>60); Estimated Creatinine Clearance 23.65 ml/min; Globulin 6.7 g/dL (2.2-4.2); Glucose 122 mg/dL (74-106); Potassium 8.8 mmol/L (3.5-5.1); Protein, Total 9.7 g/dL (6.4-8.2); Sodium Level 137 mmol/L (136-145); Thyroid Stim Hormone (TSH) 5.59 uIU/mL (0.358-3.74); Troponin-I HS 18 pg/mL (3.0-54.0)
--- NOTE | 2021-11-18 20:34 | PCM.HP.STD ---
Documented by User: AMERICA Richardson 11/18/21 21:05 HPI - General General Date of Admission: 11/18/21 Date of Service: 11/18/21 Chief Complaint: Weakness HPI Narrative MEGGAN ARITA, is a 60 F who presents with past medical history including, anxiety, asthma, CPAP dependence, hypertension, colitis. Patient weakness for some time and has been at [facility] undergoing [facility] care with PT and OT. Patient states that she is generally weak all over. Patient denies fever, chills, shortness of breath, chest pain,. Patient states that she has recently had a UTI is resolved. Patient does seem to have a new arrhythmia. patient is currently bradycardic with a wide-complex rhythm. PENDING SALE TO [facility] Medical History Anemia Anxiety Asthma Chronic respiratory failure with hypoxia and hypercapnia CPAP (continuous positive airway pressure) dependence Hypertension Obesity Sleep apnea Type 2 diabetes mellitus Home Medications albuterol sulfate 2.5 mg/3 mL (0.083 %) solution for nebulization 2.5 mg inhalation Q6HWA.RT PRN Asthma 11/23/12 [History Last Taken 07/31/21 13:00] lorazepam 1 mg tablet 0.5 - 1 mg PO BID PRN Anxiety 09/27/14 [History Last Taken 07/30/15] fluticasone propionate 50 mcg/actuation nasal spray,suspension 2 spray DAILY PRN Sinus Symptoms 02/22/16 [History Last Taken 1 Week Ago ~07/24/21] benzonatate 100 mg capsule 100 mg PO TID PRN Cough 07/31/21 [History Last Taken 07/31/21] cyclobenzaprine 5 mg tablet 5 mg PO TID PRN Spasms 07/31/21 [History Last Taken Unknown] acetaminophen 325 mg tablet (Tylenol) 650 mg PO Q6H PRN PRN Pain Score 1-10/Temp > 100.7 F #0 tabs 08/15/21 [Rx Last Taken Unknown] ascorbic acid (vitamin C) 500 mg tablet 500 mg PO BIDCM #0 tabs 08/15/21 [Rx Last Taken Unknown] ferrous sulfate 325 mg (65 mg iron) tablet (FeroSul) 325 mg PO BIDCM #0 tabs 08/15/21 [Rx Last Taken Unknown] lorazepam 1 mg tablet 1 mg PO BID PRN PRN Anxiety 3 days #6 tabs 08/15/21 [Rx Last Taken Unknown] magnesium chloride 64 mg (magnesium chloride) tablet,delayed release (Mag 64) 128 mg PO DAILY #0 tabs 08/15/21 [Rx Last Taken Unknown] nystatin 100,000 unit/gram topical powder (Nyamyc) 1 applic topical TID #0 grams 08/15/21 [Rx Last Taken Unknown] oxycodone 5 mg tablet 5 mg PO Q4H PRN PRN Pain Score 4-5 3 days #10 tabs 08/15/21 [Rx Last Taken Unknown] bisacodyl 10 mg rectal suppository (Dulcolax (bisacodyl)) 10 mg NH DAILY 11/18/21 [History Last Taken Unknown] diclofenac sodium 1 % topical gel ea topical 11/18/21 [History Last Taken Unknown] dulaglutide 1.5 mg/0.5 mL subcutaneous pen injector (Alirezaulicity) 1.5 mg subcut QWEEK 11/18/21 [History Last Taken Unknown] erythromycin 2 % topical ointment 1 ea topical 1XD 11/18/21 [History Last Taken Unknown] furosemide 40 mg tablet 80 mg PO DAILY 11/18/21 [History Last Taken Unknown] gabapentin 100 mg capsule 100 mg PO TID 11/18/21 [History Last Taken Unknown] ibuprofen 400 mg tablet (IBU) 400 mg PO Q8H 11/18/21 [History Last Taken Unknown] insulin glargine U-300 conc 300 unit/mL (1.5 mL) subcutaneous pen (Olga Villanueva U-300 Insulin) 40 unit subcut DAILY 11/18/21 [History Last Taken Unknown] insulin lispro 100 unit/mL subcutaneous pen 2 unit subcut TID 11/18/21 [History Last Taken Unknown] metoclopramide HCl 5 mg tablet (Reglan) 5 mg PO DAILY 11/18/21 [History Last Taken Unknown] omeprazole 40 mg capsule,delayed release 40 mg PO DAILY 11/18/21 [History Last Taken Unknown] oxycodone 5 mg tablet 5 mg PO Q6H 11/18/21 [History Last Taken Unknown] potassium chloride 20 mEq tablet,extended release 40 meq PO BID 11/18/21 [History Last Taken Unknown] sulfamethoxazole 800 mg-trimethoprim 160 mg tablet (Bactrim DS) 1 tab PO BID 11/18/21 [History Last Taken Unknown] venlafaxine 75 mg capsule,extended release 24 hr (Effexor XR) 75 mg PO DAILY 11/18/21 [History Last Taken Unknown] Allergy/AdvReac Type Severity Reaction Status Date / Time codeine Allergy Nausea/Vom/ Verified 11/18/21 19:20 Diarrhea iodine Allergy Swelling Verified 11/18/21 19:20 latex Allergy Shortness Verified 11/18/21 19:20 of breath meloxicam Allergy Rash Verified 11/18/21 19:20 Penicillins Allergy Shortness Verified 11/18/21 19:20 of breath [email or web address] Allergy NEEDS Verified 11/18/21 19:20 FOLLOW-UP hydrocodone bitartrate AdvReac Nausea/Vom/ Verified 11/18/21 19:20 [From Vicodin] Diarrhea prednisone AdvReac Other Verified 11/18/21 19:20 Surgical History History of cholecystectomy Social History Smoking Status: Never smoker substance use type: does not use ROS Constitutional Constitutional: Reports weakness; Denies anorexia, change in weight, chills or fatigue Cardiovascular Cardiovascular: Reports edema; Denies chest pain or palpitations Respiratory/Chest Respiratory/Chest: Denies cough, shortness of breath at rest, shortness of breath with exertion or wheezing Gastrointestinal Gastrointestinal: Denies abdominal pain, constipation, diarrhea, nausea or vomiting Genitourinary Genitourinary: Denies dysuria Musculoskeletal Musculoskeletal: Denies back pain, extremity pain or joint pain Integumentary Integumentary: Denies dry skin Neurologic Neurologic: Denies abnormal gait, abnormal speech, confusion or dizziness Psychiatric Psychiatric: Reports depression; Denies anxiety Endocrine Endocrinology: Denies change in body appearance Hematologic/Lymphatic Hematologic/Lymphatic: Reports anemia Vital Signs Vital Signs Vital Signs: 11/18/21 19:11 11/18/21 19:15 11/18/21 19:19 Temperature 96.5 F L Temperature Source Temporal Pulse Rate 44 L 189 H Respiratory Rate 24 H 23 H Respiratory Effort Normal Respiratory Pattern Tachypnea Blood Pressure 144/90 H 162/122 H Blood Pressure Mean 108 135 Pulse Ox 99 96 Oxygen Delivery Method Nasal Cannula Nasal Cannula Oxygen Flow Rate (L/min) 2 2 11/18/21 19:28 Temperature Temperature Source Pulse Rate 42 L Respiratory Rate 25 H Respiratory Effort Respiratory Pattern Blood Pressure 148/125 H Blood Pressure Mean 132 Pulse Ox 94 Oxygen Delivery Method Nasal Cannula Oxygen Flow Rate (L/min) 2 Weight Weight: 441 lb 9.374 oz Body Mass Index (BMI) 67.1 Physical Exam Const alert, oriented x3 and no apparent distress HEENT normocephalic and head/scalp atraumatic Eyes conjunctivae normal and no scleral icterus Neck no lymphadenopathy and supple General: trachea midline Resp normal respiratory effort and normal air movement Effort and Inspection: tachypneic Auscultation: diminished lung sounds Cardio regular rate, regular rhythm, S1 normal heart sound, S2 normal heart sound and peripheral pulses 2+ throughout Cardio Narrative: patient varies between rich and tachy rhythms Rate: bradycardia and tachycardic GI normal to inspection, nondistended, normoactive bowel sounds, soft to palpation and non-tender Extremity normal capillary refill General Extremity: edema bilateral lower extremity Details: moderate Skin Lesions: no lesions Rashes: no rashes Neuro no focal motor deficits and no sensory deficits noted Psych thought process normal, cooperative and affect normal Results Lab / Micro Data Result Diagrams: 11/18/21 19:43 11/18/21 22:30 Labs: Laboratory Results - last 24 hr 11/18/21 19:43: WBC 9.0, RBC 3.36 L, Hgb 9.6 L, Hct 34.3 L, MCV 102.1 H, MCH 28.6, MCHC 28.0 L, RDW Std Deviation 59.7 H, RDW Coeff of Amirah 16.0 H, Plt Count 291, MPV 10.4, Immature Gran % (Auto) 0.400, Neut % (Auto) 71.2 H, Lymph % (Auto) 18.5 L, [place] % (Auto) 9.3, Eos % (Auto) 0.2, Baso % (Auto) 0.4, Absolute Neuts (auto) 6.4, Absolute Lymphs (auto) 1.67, Nucleated RBC % 0 11/18/21 19:43: Sodium 137, Potassium 8.8 H*, Chloride 103, Carbon Dioxide 29.0, Anion Gap 5, BUN 57 H, Creatinine 2.52 H, Estim Creat Clear Calc 23.65, Est GFR (MDRD) Af Amer 25 L, Est GFR (MDRD) Non-Af 21 L, BUN/Creatinine Ratio 22.6 H, Glucose 122 H, Calcium 9.3, Total Bilirubin 0.50, AST 49 H, ALT 31, Alkaline Phosphatase 234 H, Troponin I High Sens 18, Total Protein 9.7 H, Albumin 3.0 L, Globulin 6.7 H, Albumin/Globulin Ratio 0.4 L, TSH 5.59 H 11/18/21 19:50: Urine Color Yellow, Urine Clarity Clear, Urine pH 5.0, Ur Specific [place] 1.015, Urine Protein 30 H, Urine Glucose (UA) Normal, Urine Ketones Negative, Urine Occult Blood 150 H, Urine Nitrite Negative, Urine Bilirubin Negative, Urine Urobilinogen 4 H, Ur Leukocyte Esterase 25 H, Urine RBC 10-25 SEEN, Urine WBC 0-5 SEEN, Ur Squamous Epith Cells 0-5 SEEN, Urine Bacteria RARE, Urine Mucus 0 SEEN ABG Data ABG results: ABG 11/18/21 19:49 Specimen Type ART Sample Site L Radial pH 7.33 L Bicarbonate Actual 25.7 Total CO2 27 Base Excess 0 O2 Saturation 93 L ABG pCO2 49.3 H ABG pO2 71 L Cyril Test Positive O2 Delivery Device Cannula Liter Flow 2.0 Rhythm Strip Rhythm Strip: junctional Rate: 43 Ectopy: None Assessment & Plan Assessment/Plan (1) LORNE (acute kidney injury): (2) Hyperkalemia: PLAN: Plan 1. LORNE with Hyperkalemia -Admit to ICU -Potassium 8.8, patient given calcium gluconate, IV insulin, sodium bicarb, Kayexalate in ER -Magnesium, phosphorus, urine sodium, urine creatinine stat -CBC, CMP, T4 in a.m. -BMP every 2 hours x2 due to hyperkalemia -PT and OT to eval and treat -Daily weights with intake and output -Consult oncology physician 2. Rich-Tachy arrhythmia -Likely secondary to hyperkalemia -Consult cardiology, case discussed with Dr. Hernandez by ER physician -Continuous cardiac monitoring -Trend cardiac enzymes 2. Acute on chronic iron deficiency anemia -continue oral iron supplementation -Hemoglobin stable at 9.6 3. Generalized debility -Patient currently at [facility] undergoing PT and OT as well as chcf. -PT and OT to eval and treat 4. Diabetes mellitus type 2 -Continue long-acting insulin -Hold Trulicity -ACH S blood sugars with sliding scale insulin ordered -Consistent carb calorie controlled diet ordered 5. Essential hypertension -Blood pressure currently stable -Vital signs per protocol -Furosemide on hold secondary to LORNE -IV hydralazine as needed 6. Chronic depression -Continue venlafaxine and lorazepam 7. Gastritis -Continue Protonix twice daily 8. Chronic combined respiratory failure secondary to obesity hypoventilation syndrome and asthma -Continue nasal cannula oxygen and CPAP at night and when sleeping. Patient on 2 L nasal cannula oxygen at baseline -Encourage incentive spirometry -Every 2 hour albuterol aerosols ordered as needed 9. Chronic pain -Continue cyclobenzaprine, Voltaren, ibuprofen, oxycodone. DVT prophylaxis-SCDs and subcu heparin This patient was seen by Terrie Hale NP-C under the supervision of Dr. Hamm. 32 minutes spent in clinical coordination of patient's plan of care. Documented by User: Dr. Winter Hamm MD 11/18/21 23:49 HPI - General General Date of Admission: 11/18/21 PENDING SALE TO [facility] Medical History Anemia Anxiety Asthma Chronic respiratory failure with hypoxia and hypercapnia CPAP (continuous positive airway pressure) dependence Hypertension Obesity Sleep apnea Type 2 diabetes mellitus Home Medications albuterol sulfate 2.5 mg/3 mL (0.083 %) solution for nebulization 2.5 mg inhalation Q6HWA.RT PRN Asthma 11/23/12 [History Last Taken 07/31/21 13:00] lorazepam 1 mg tablet 0.5 - 1 mg PO BID PRN Anxiety 09/27/14 [History Last Taken 07/30/15] fluticasone propionate 50 mcg/actuation nasal spray,suspension 2 spray DAILY PRN Sinus Symptoms 02/22/16 [History Last Taken 1 Week Ago ~07/24/21] benzonatate 100 mg capsule 100 mg PO TID PRN Cough 07/31/21 [History Last Taken 07/31/21] cyclobenzaprine 5 mg tablet 5 mg PO TID PRN Spasms 07/31/21 [History Last Taken Unknown] acetaminophen 325 mg tablet (Tylenol) 650 mg PO Q6H PRN PRN Pain Score 1-10/Temp > 100.7 F #0 tabs 08/15/21 [Rx Last Taken Unknown] ascorbic acid (vitamin C) 500 mg tablet 500 mg PO BIDCM #0 tabs 08/15/21 [Rx Last Taken Unknown] ferrous sulfate 325 mg (65 mg iron) tablet (FeroSul) 325 mg PO BIDCM #0 tabs 08/15/21 [Rx Last Taken Unknown] lorazepam 1 mg tablet 1 mg PO BID PRN PRN Anxiety 3 days #6 tabs 08/15/21 [Rx Last Taken Unknown] magnesium chloride 64 mg (magnesium chloride) tablet,delayed release (Mag 64) 128 mg PO DAILY #0 tabs 08/15/21 [Rx Last Taken Unknown] nystatin 100,000 unit/gram topical powder (Nyamyc) 1 applic topical TID #0 grams 08/15/21 [Rx Last Taken Unknown] oxycodone 5 mg tablet 5 mg PO Q4H PRN PRN Pain Score 4-5 3 days #10 tabs 08/15/21 [Rx Last Taken Unknown] bisacodyl 10 mg rectal suppository (Dulcolax (bisacodyl)) 10 mg NH DAILY 11/18/21 [History Last Taken Unknown] diclofenac sodium 1 % topical gel ea topical 11/18/21 [History Last Taken Unknown] dulaglutide 1.5 mg/0.5 mL subcutaneous pen injector (Trulicity) 1.5 mg subcut QWEEK 11/18/21 [History Last Taken Unknown] erythromycin 2 % topical ointment 1 ea topical 1XD 11/18/21 [History Last Taken Unknown] furosemide 40 mg tablet 80 mg PO DAILY 11/18/21 [History Last Taken Unknown] gabapentin 100 mg capsule 100 mg PO TID 11/18/21 [History Last Taken Unknown] ibuprofen 400 mg tablet (IBU) 400 mg PO Q8H 11/18/21 [History Last Taken Unknown] insulin glargine U-300 conc 300 unit/mL (1.5 mL) subcutaneous pen ([employer] SoloStar U-300 Insulin) 40 unit subcut DAILY 11/18/21 [History Last Taken Unknown] insulin lispro 100 unit/mL subcutaneous pen 2 unit subcut TID 11/18/21 [History Last Taken Unknown] metoclopramide HCl 5 mg tablet (Reglan) 5 mg PO DAILY 11/18/21 [History Last Taken Unknown] omeprazole 40 mg capsule,delayed release 40 mg PO DAILY 11/18/21 [History Last Taken Unknown] oxycodone 5 mg tablet 5 mg PO Q6H 11/18/21 [History Last Taken Unknown] potassium chloride 20 mEq tablet,extended release 40 meq PO BID 11/18/21 [History Last Taken Unknown] sulfamethoxazole 800 mg-trimethoprim 160 mg tablet (Bactrim DS) 1 tab PO BID 11/18/21 [History Last Taken Unknown] venlafaxine 75 mg capsule,extended release 24 hr (Effexor XR) 75 mg PO DAILY 11/18/21 [History Last Taken Unknown] Allergy/AdvReac Type Severity Reaction Status Date / Time codeine Allergy Nausea/Vom/ Verified 11/18/21 19:20 Diarrhea iodine Allergy Swelling Verified 11/18/21 19:20 latex Allergy Shortness Verified 11/18/21 19:20 of breath meloxicam Allergy Rash Verified 11/18/21 19:20 Penicillins Allergy Shortness Verified 11/18/21 19:20 of breath [email or web address] Allergy NEEDS Verified 11/18/21 19:20 FOLLOW-UP hydrocodone bitartrate AdvReac Nausea/Vom/ Verified 11/18/21 19:20 [From Vicodin] Diarrhea prednisone AdvReac Other Verified 11/18/21 19:20 Surgical History History of cholecystectomy Social History Smoking Status: Never smoker substance use type: does not use Results Lab / Micro Data Result Diagrams: 11/18/21 19:43 11/18/21 22:30 Assessment & Plan Assessment/Plan (1) LORNE (acute kidney injury): (2) Hyperkalemia:
[2021-11-18] MEDS: Sodium Polystyrene Sulfonate 15 GM/60 ML UDC 30 GM PO (20:40)
[2021-11-18] MEDS: Insulin Lispro 10 UNIT in Syringe 0 ML 6 UNIT IV (21:00)
[2021-11-18] MEDS: Calcium Gluconate IV 3 GM in Syringe 1 EACH IV (21:01)
[2021-11-18] MEDS: Albuterol *CONC* 2.5mg/0.5mL VIAL.NEB. 10 MG INHALATION (21:02)
[2021-11-18 21:04] LABS: Magnesium 2.5 mg/dL (1.6-2.6)
--- NOTE | 2021-11-18 21:13 | NURSING ---
report called and waiting on nebulizer to finish before going up to ICU
[2021-11-18 21:23] LABS: Urine Sodium 23 mmol/L (Not Establ.)
[2021-11-18] MEDS: 0.9% Normal Saline 1,000 ML 100 ML IV (22:04)
[2021-11-18 22:36] LABS: Bedside Glucose 114 mg/dL (74-106)
[2021-11-18 23:25] LABS: Anion Gap 6 (5-15); BUN 57 mg/dL (7-18); BUN/Creat Ratio 23.1 RATIO (10-20); Calcium,Total 9.7 mg/dL (8.5-10.1); Chloride 103 mmol/L (98-107); Creatinine, Serum 2.47 mg/dL (0.55-1.02); EST Glomerular Filtration Rate 21 mL/min (>60); Est Glom Filt Rate - Afr Amer 26 mL/min (>60); Estimated Creatinine Clearance 24.13 ml/min; Glucose 161 mg/dL (74-106); Potassium 7.3 mmol/L (3.5-5.1); Sodium Level 139 mmol/L (136-145); Troponin-I HS 17 pg/mL (3.0-54.0)
[2021-11-19] VITALS (29 sets, daily range): BP systolic 105–152; BP diastolic 41–121; PULSE 50–69; RESP 13–22; TEMP 36–36.6; O2SAT 94–100
[2021-11-19] MEDS: Menthol/Lanolin/Calamine/Znox 113 GM Tube 1 APPLIC TOPICAL ×5 (00:05→21:42)
[2021-11-19] MEDS: Nystatin Powder 15gm Bottle 1 APPLIC TOPICAL ×4 (00:06→21:43)
[2021-11-19] MEDS: Sodium Polystyrene Sulfonate 15 GM/60 ML UDC 30 GM PO (00:07)
[2021-11-19] MEDS: Polyethylene Glycol 3350 17 GM PACKET 34 GM PO (00:07)
[2021-11-19] MEDS: Sodium Bicarbonate 8.4% 50 ML Syringe 100 MEQ IV (00:15)
[2021-11-19] MEDS: Calcium Gluconate IV 1 GM in Syringe 1 EACH IV ×2 (00:20→05:39)
[2021-11-19] MEDS: Insulin Lispro 10 UNIT in Syringe 0 ML 6 UNIT IV ×2 (00:22→05:39)
[2021-11-19] MEDS: Heparin Injection (Vial) 5,000 UNIT/ML VIAL 5000 UNIT SC ×3 (00:24→21:37)
[2021-11-19] MEDS: Gabapentin 100 MG Capsule PO ×4 (00:24→21:43)
[2021-11-19] MEDS: oxyCODONE 5 MG Tablet PO ×5 (00:24→22:32)
[2021-11-19] MEDS: Albuterol *CONC* 2.5mg/0.5mL VIAL.NEB. 10 MG INHALATION ×2 (00:46→05:49)
[2021-11-19 03:44] LABS: Troponin-I HS 17 pg/mL (3.0-54.0)
[2021-11-19 04:02] LABS: Anion Gap 3 (5-15); BUN 53 mg/dL (7-18); BUN/Creat Ratio 22.2 RATIO (10-20); Calcium,Total 9.2 mg/dL (8.5-10.1); Chloride 102 mmol/L (98-107); Creatinine, Serum 2.39 mg/dL (0.55-1.02); EST Glomerular Filtration Rate 22 mL/min (>60); Est Glom Filt Rate - Afr Amer 26 mL/min (>60); Estimated Creatinine Clearance 24.94 ml/min; Glucose 135 mg/dL (74-106); Potassium 6.8 mmol/L (3.5-5.1); Sodium Level 138 mmol/L (136-145)
--- NOTE | 2021-11-19 05:55 | US_ITS ---
STUDY: RENAL ULTRASOUND - COMPLETE REASON FOR EXAM: Female, 60 years old. LORNE TECHNIQUE: Ultrasound evaluation of the kidneys was performed with real-time and static yang-scale imaging. COMPARISON: None. FINDINGS: RIGHT KIDNEY: Normal location of the right kidney, which is normal in size. The right kidney measures 12.6 cm. There is a normal cortex of the right kidney. The renal cortex measures 1.7 cm. There is no right renal mass or cyst. There are no right renal calculi. There is no right hydronephrosis. DISTAL RIGHT URETER: There is non-visualization of the distal right ureter. There is no demonstrated right ureterovesical junction calculus. There is a visualized right ureteral jet. LEFT KIDNEY: Normal location of the left kidney, which is normal in size. The left kidney measures 11.9 cm. There is a normal cortex of the left kidney. The renal cortex measures 2.2 cm. There is no left renal mass or cyst. There are no left renal calculi. There is no left hydronephrosis. DISTAL LEFT URETER: There is non-visualization of the distal left ureter. There is no demonstrated left ureterovesical junction calculus. There is a visualized left ureteral jet. BLADDER: Not visualized due to Thrasher catheter.. US/Kidney and Bladder IMPRESSION: Normal ultrasound of the kidneys. Electronically Signed: Jesse James MD at 16:57 EDT ,
--- NOTE | 2021-11-19 06:54 | PCM.HOSP.N ---
Hospitalist Note Patient cardiac rhythm improving with decreasing K levels. Suspect primarily electrolyte related, thus will hold on continuation of cardiology consultation given improvement but low threshold to request evaluation if any further concerns or recurrence.
[2021-11-19 07:34] LABS: Magnesium 2.4 mg/dL (1.6-2.6); Phosphorus 4.5 mg/dL (2.5-4.9)
--- NOTE | 2021-11-19 07:36 | EX.PCM.CONCC ---
Assessment & Plan Assessment/Plan (1) Hyperkalemia: (2) LORNE (acute kidney injury): (3) Chronic respiratory insufficiency: (4) Obesity hypoventilation syndrome: (5) Obesity due to excess calories with serious comorbidity: PLAN: Plan RECOMMENDATIONS: 1. Continue conservative therapy for hyperkalemia 2. Suppository if no bowel movement in the next 3 hours 3. Continue telemetry 4. Evaluate oxygenation status following CPAP 5. Space out BMPs to every 4 hours 6. Await cardiology recommendations IMPRESSIONS: 1. Acute kidney injury with hyperkalemia and EKG changes Patient appears to be responding to conservative therapy with calcium gluconate, IV insulin, bicarb and Kayexalate. Patient has not had a bowel movement. If no bowel movement in the next 3 hours, will likely try a suppository. Will space out BMPs to every 4 hours given the logistics of interventions. Telemetry appears to be more appropriate. Cannot exclude the need for dialysis. Patient does take Lasix and potassium at baseline. Last creatinine was 0.65 on previous hospitalization. Unclear if patient has an element of acute kidney injury secondary to recent Bactrim. 2. Bradycardia/tachycardia with hyperkalemia Cardiology has been consulted. Clinical suspicion for changes secondary to hyperkalemia. Patient does appear to be responding well to therapy. Cardiac enzymes have not been remarkable. 3. Chronic combined respiratory failure/HONEY/OHS Patient normally on 2 L nasal cannula. Patient does have stigmata of CO2 retention with a bicarbonate of 33. Patient appears to be relatively compensated on ABG. Patient is using CPAP right now with sleep. Will assess respiratory status after she wakes up. No acute interventions required at this time. 4. Diabetes mellitus type 2/hypertension/depression/debility/chronic pain Complicates care, management, recovery and prognosis. Opiates and benzodiazepines will complicate OHS. Patient does not appear to be in exacerbation to require steroids. Patient can continue on her baseline antihypertensive medications, but ibuprofen and HYUN inhibitor's need to be held secondary to problem #1. HPI Consult Data Date of Consult: 11/19/21 HPI Narrative Reason for Consultation: Hyperkalemia with EKG changes HPI Narrative: MEGGAN ARITA is a 60 F, with past medical history listed below and known to me from previous hospitalizations, who presents to [facility] on 11/18/2021 from [facility]. Patient had been hospitalized at [facility] a little over a month ago and was sent there for rehabilitation. Patient was unable to ambulate secondary to generalized weakness and had been working with physical therapy. Patient reports that she started to feel weak all over, but denied any constitutional symptoms such as fever, chills, nausea, vomiting or dysuria. Patient was recently treated with antibiotics for UTI. Patient reported some constipation and had not had a bowel movement in approximately a week. In the ER, patient was afebrile, but bradycardic at 44 bpm and hypertensive at 144/90. Patient was saturating well on room air. Laboratory data showed a white blood cell count of 9, hemoglobin of 9.6 and platelets of 291. Chemistries were significant for a potassium of 8.8, BUN of 57 and creatinine of 2.5. Calcium was within normal limits at 9.3 with an albumin of 3. UA was relatively unremarkable. ABG showed a respiratory acidosis with partial metabolic compensation and increased AA gradient. Chest x-ray showed bilateral fluffy infiltrates and an EKG confirmed junctional rhythm with a rate of 43. Given patient's hyperkalemia, patient received multiple interventions including bicarbonate, calcium, insulin and Kayexalate. Patient was then transferred to the intensive care unit for further evaluation. Since being in the intensive care unit, patient has been on her baseline CPAP therapy for sleep apnea. Patient's EKG has improved and potassium is slightly lower. Patient has had 200 cc of urine output. Patient is not able to provide much additional information as she does not cooperate with questions. Patient states I just need to sleep. PENDING SALE TO [facility] Medical History Anemia Anxiety Asthma Chronic respiratory failure with hypoxia and hypercapnia CPAP (continuous positive airway pressure) dependence Hypertension Obesity Sleep apnea Type 2 diabetes mellitus Home Medications albuterol sulfate 2.5 mg/3 mL (0.083 %) solution for nebulization 2.5 mg inhalation Q6HWA.RT PRN Asthma 11/23/12 [History Last Taken 07/31/21 13:00] lorazepam 1 mg tablet 0.5 - 1 mg PO BID PRN Anxiety 09/27/14 [History Last Taken 07/30/15] fluticasone propionate 50 mcg/actuation nasal spray,suspension 2 spray DAILY PRN Sinus Symptoms 02/22/16 [History Last Taken 1 Week Ago ~07/24/21] benzonatate 100 mg capsule 100 mg PO TID PRN Cough 07/31/21 [History Last Taken 07/31/21] cyclobenzaprine 5 mg tablet 5 mg PO TID PRN Spasms 07/31/21 [History Last Taken Unknown] acetaminophen 325 mg tablet (Tylenol) 650 mg PO Q6H PRN PRN Pain Score 1-10/Temp > 100.7 F #0 tabs 08/15/21 [Rx Last Taken Unknown] ascorbic acid (vitamin C) 500 mg tablet 500 mg PO BIDCM #0 tabs 08/15/21 [Rx Last Taken Unknown] ferrous sulfate 325 mg (65 mg iron) tablet (FeroSul) 325 mg PO BIDCM #0 tabs 08/15/21 [Rx Last Taken Unknown] lorazepam 1 mg tablet 1 mg PO BID PRN PRN Anxiety 3 days #6 tabs 08/15/21 [Rx Last Taken Unknown] magnesium chloride 64 mg (magnesium chloride) tablet,delayed release (Mag 64) 128 mg PO DAILY #0 tabs 08/15/21 [Rx Last Taken Unknown] nystatin 100,000 unit/gram topical powder (Nyamyc) 1 applic topical TID #0 grams 08/15/21 [Rx Last Taken Unknown] oxycodone 5 mg tablet 5 mg PO Q4H PRN PRN Pain Score 4-5 3 days #10 tabs 08/15/21 [Rx Last Taken Unknown] bisacodyl 10 mg rectal suppository (Dulcolax (bisacodyl)) 10 mg OR DAILY 11/18/21 [History Last Taken Unknown] diclofenac sodium 1 % topical gel ea topical 11/18/21 [History Last Taken Unknown] dulaglutide 1.5 mg/0.5 mL subcutaneous pen injector (Trulicity) 1.5 mg subcut QWEEK 11/18/21 [History Last Taken Unknown] erythromycin 2 % topical ointment 1 ea topical 1XD 11/18/21 [History Last Taken Unknown] furosemide 40 mg tablet 80 mg PO DAILY 11/18/21 [History Last Taken Unknown] gabapentin 100 mg capsule 100 mg PO TID 11/18/21 [History Last Taken Unknown] ibuprofen 400 mg tablet (IBU) 400 mg PO Q8H 11/18/21 [History Last Taken Unknown] insulin glargine U-300 conc 300 unit/mL (1.5 mL) subcutaneous pen (Asadutavia SoloStar U-300 Insulin) 40 unit subcut DAILY 11/18/21 [History Last Taken Unknown] insulin lispro 100 unit/mL subcutaneous pen 2 unit subcut TID 11/18/21 [History Last Taken Unknown] metoclopramide HCl 5 mg tablet (Reglan) 5 mg PO DAILY 11/18/21 [History Last Taken Unknown] omeprazole 40 mg capsule,delayed release 40 mg PO DAILY 11/18/21 [History Last Taken Unknown] oxycodone 5 mg tablet 5 mg PO Q6H 11/18/21 [History Last Taken Unknown] potassium chloride 20 mEq tablet,extended release 40 meq PO BID 11/18/21 [History Last Taken Unknown] sulfamethoxazole 800 mg-trimethoprim 160 mg tablet (Bactrim DS) 1 tab PO BID 11/18/21 [History Last Taken Unknown] venlafaxine 75 mg capsule,extended release 24 hr (Effexor XR) 75 mg PO DAILY 11/18/21 [History Last Taken Unknown] Allergy/AdvReac Type Severity Reaction Status Date / Time codeine Allergy Nausea/Vom/ Verified 11/18/21 19:20 Diarrhea iodine Allergy Swelling Verified 11/18/21 19:20 latex Allergy Shortness Verified 11/18/21 19:20 of breath meloxicam Allergy Rash Verified 11/18/21 19:20 Penicillins Allergy Shortness Verified 11/18/21 19:20 of breath tositumomab Allergy NEEDS Verified 11/18/21 19:20 FOLLOW-UP hydrocodone bitartrate AdvReac Nausea/Vom/ Verified 11/18/21 19:20 [From Vicodin] Diarrhea prednisone AdvReac Other Verified 11/18/21 19:20 Surgical History History of cholecystectomy Social History Smoking Status: Never smoker substance use type: does not use ROS ROS Narrative Unable to obtain secondary to patient cooperation Physical Exam Const alert, oriented x3 and no apparent distress Constitutional Narrative: Morbidly obese. On CPAP during my evaluation. Opens eyes and makes eye contact, but not interacting. HEENT normocephalic and head/scalp atraumatic Eyes conjunctivae normal and no scleral icterus Neck no lymphadenopathy and supple General: trachea midline Resp normal respiratory effort, normal air movement and no use of accessory muscles Effort and Inspection: Negative for actively coughing Auscultation: diminished lung sounds; Negative for rales, rhonchi or wheezes Cardio regular rate, regular rhythm, S1 normal heart sound, S2 normal heart sound, no murmurs, no rub, no gallops and peripheral pulses 2+ throughout Rate: bradycardia and tachycardic GI normal to inspection, nondistended, normoactive bowel sounds, soft to palpation and non-tender Extremity normal capillary refill General Extremity: edema bilateral lower extremity Details: moderate Skin Lesions: no lesions Rashes: no rashes Neuro no focal motor deficits and no sensory deficits noted Psych thought process normal, cooperative and affect normal Lab / Micro Data Attestation: I reviewed the patient's lab results. Result Diagrams: 11/18/21 19:43 11/19/21 02:55 Labs: Laboratory Results - last 24 hr 11/18/21 19:43: WBC 9.0, RBC 3.36 L, Hgb 9.6 L, Hct 34.3 L, MCV 102.1 H, MCH 28.6, MCHC 28.0 L, RDW Std Deviation 59.7 H, RDW Coeff of Amirah 16.0 H, Plt Count 291, MPV 10.4, Immature Gran % (Auto) 0.400, Neut % (Auto) 71.2 H, Lymph % (Auto) 18.5 L, [place] % (Auto) 9.3, Eos % (Auto) 0.2, Baso % (Auto) 0.4, Absolute Neuts (auto) 6.4, Absolute Lymphs (auto) 1.67, Nucleated RBC % 0 11/18/21 19:43: Sodium 137, Potassium 8.8 H*, Chloride 103, Carbon Dioxide 29.0, Anion Gap 5, BUN 57 H, Creatinine 2.52 H, Estim Creat Clear Calc 23.65, Est GFR (MDRD) Af Amer 25 L, Est GFR (MDRD) Non-Af 21 L, BUN/Creatinine Ratio 22.6 H, Glucose 122 H, Calcium 9.3, Total Bilirubin 0.50, AST 49 H, ALT 31, Alkaline Phosphatase 234 H, Troponin I High Sens 18, Total Protein 9.7 H, Albumin 3.0 L, Globulin 6.7 H, Albumin/Globulin Ratio 0.4 L, TSH 5.59 H 11/18/21 19:43: Phosphorus 5.0 H, Magnesium 2.5 11/18/21 19:50: Urine Color Yellow, Urine Clarity Clear, Urine pH 5.0, Ur Specific [place] 1.015, Urine Protein 30 H, Urine Glucose (UA) Normal, Urine Ketones Negative, Urine Occult Blood 150 H, Urine Nitrite Negative, Urine Bilirubin Negative, Urine Urobilinogen 4 H, Ur Leukocyte Esterase 25 H, Urine RBC 10-25 SEEN, Urine WBC 0-5 SEEN, Ur Squamous Epith Cells 0-5 SEEN, Urine Bacteria RARE, Urine Mucus 0 SEEN 11/18/21 19:50: Ur Random Sodium 23, Urine Creatinine 96.20 11/18/21 22:10: POC Glucose 114 H 11/18/21 22:30: Sodium 139, Potassium 7.3 H*, Chloride 103, Carbon Dioxide 30.0, Anion Gap 6, BUN 57 H, Creatinine 2.47 H, Estim Creat Clear Calc 24.13, Est GFR (MDRD) Af Amer 26 L, Est GFR (MDRD) Non-Af 21 L, BUN/Creatinine Ratio 23.1 H, Glucose 161 H, Calcium 9.7, Troponin I High Sens 17 11/19/21 02:55: Troponin I High Sens 17 11/19/21 02:55: Sodium 138, Potassium 6.8 H*, Chloride 102, Carbon Dioxide 33.0 H, Anion Gap 3 L, BUN 53 H, Creatinine 2.39 H, Estim Creat Clear Calc 24.94, Est GFR (MDRD) Af Amer 26 L, Est GFR (MDRD) Non-Af 22 L, BUN/Creatinine Ratio 22.2 H, Glucose 135 H, Calcium 9.2 11/19/21 02:55: Phosphorus 4.5, Magnesium 2.4 ABG Data ABG results: ABG 11/18/21 19:49 Specimen Type ART Sample Site L Radial pH 7.33 L Bicarbonate Actual 25.7 Total CO2 27 Base Excess 0 O2 Saturation 93 L ABG pCO2 49.3 H ABG pO2 71 L Cyril Test Positive O2 Delivery Device Cannula Liter Flow 2.0 Attestation: I personally reviewed and interpreted this ABG as follows: (See HPI) Rhythm Strip Rhythm Strip: junctional Rate: 43 Ectopy: None Radiology Impression Chest X-Ray 11/18/21 19:52 IMPRESSION: Question CHF. Electronically Signed: Ralph Ramírez DO at 20:39 EDT Reading Location ID and State: [address] [place] [address] Tel [phone], Service support , Charges/Coding Visit Charges Inpatient E&M: 13456 Init Hosp L3
[2021-11-19] MEDS: Pantoprazole Sodium 40 MG Tablet PO (08:30)
[2021-11-19] MEDS: Insulin Lispro 100 UNIT/ML INSULN.PEN SC ×3 (08:30→16:28)
[2021-11-19] MEDS: Venlafaxine XR 75 MG Capsule PO (08:30)
[2021-11-19] MEDS: Ascorbic Acid 500 MG Tablet PO ×2 (08:31→16:30)
[2021-11-19] MEDS: Erythromycin Base 1 OPTH.TUBE 1 APPLIC LEFT EYE (08:31)
[2021-11-19] MEDS: Ferrous Sulfate 325 MG Tablet PO ×2 (08:31→16:30)
[2021-11-19] MEDS: Fluticasone 0.05% 1 SPRAY NASAL.SRY 2 SPRAY NASAL (08:32)
[2021-11-19] MEDS: Insulin Glargine-YFGN 100 UNIT/ML Pen 40 UNIT SC (08:32)
[2021-11-19] MEDS: Metoclopramide 5 MG TABLET PO (08:32)
[2021-11-19] MEDS: Furosemide 100 MG/10 ML Vial 60 MG IV (08:36)
[2021-11-19 09:28] LABS: Anion Gap 2 (5-15); BUN 51 mg/dL (7-18); BUN/Creat Ratio 22.6 RATIO (10-20); Calcium,Total 9.6 mg/dL (8.5-10.1); Chloride 104 mmol/L (98-107); Creatinine, Serum 2.26 mg/dL (0.55-1.02); EST Glomerular Filtration Rate 23 mL/min (>60); Est Glom Filt Rate - Afr Amer 28 mL/min (>60); Estimated Creatinine Clearance 26.37 ml/min; Glucose 113 mg/dL (74-106); Potassium 6.2 mmol/L (3.5-5.1); Sodium Level 140 mmol/L (136-145)
[2021-11-19] MEDS: FLU VACC QS2022-23(6MOS UP)/PF 60 MCG/0.5 ML SYRINGE IM (11:04)
[2021-11-19 11:18] LABS: ALB/GLOB Ratio 0.5 RATIO (0.9-2.4); AST(SGOT) 56 U/L (15-37); Alanine Aminotransfer ALT/SGPT 34 U/L (13-56); Albumin, Serum 2.9 g/dL (3.2-5.0); Alkaline Phosphatase 215 U/L (45-117); Globulin 6.2 g/dL (2.2-4.2); Protein, Total 9.1 g/dL (6.4-8.2); T4 Free Direct 0.75 ng/dL (0.76-1.46)
[2021-11-19 11:30] LABS: Bedside Glucose 133 mg/dL (74-106)
--- NOTE | 2021-11-19 13:05 | CASEMGMT ---
SHELBY MENDEZ Face to Face with patient for initial transition planning/care coordination assessment. RN CM introduced self and role at [facility]. Patient lying in bed, alert and oriented, son at bedside. Patient willing to participate in assessment and is able to answer all questions appropriately. Care providers, pharmacy, and demographics verified. Patient wishes to discharge back to [facility] for additional therapy. Patient states he has no further needs or concerns at this time. CHRISTINA Solis updated regarding return to SNF. CM to follow for discharge planning needs that may arise. PCP: Didi Specialists: Mami medical record coder Preferred Pharmacy: [facility] Insurance: [employer] Prescription Benefit: yes Living Will/HPOA: none LNOK: 2 sons, daughter Living Arrangements: Patient is currently at [facility] for additional therapy. Patient has been there for 2 months. Patient was living at home with boyfriend in a 2 story home with bed and bath on first floor. 4-5 steps and railing to enter the home. Patient states she was independent and driving self prior to admission to SNF. Patient states she transfers via sit to stand at SNF to participate in therapy and ride the [facility]. Transportation: Currently SNF is providing transport DME/HHC: Patient has rollator at home. Disposition Plan: Patient to return to [facility] for additional therapy when medically ready. Victorina RAMIRES, RN, CM
[2021-11-19 13:11] LABS: Anion Gap 2 (5-15); BUN 51 mg/dL (7-18); BUN/Creat Ratio 23.7 RATIO (10-20); Calcium,Total 9.8 mg/dL (8.5-10.1); Chloride 101 mmol/L (98-107); Creatinine, Serum 2.15 mg/dL (0.55-1.02); EST Glomerular Filtration Rate 25 mL/min (>60); Est Glom Filt Rate - Afr Amer 30 mL/min (>60); Estimated Creatinine Clearance 27.72 ml/min; Glucose 162 mg/dL (74-106); Potassium 5.4 mmol/L (3.5-5.1); Sodium Level 140 mmol/L (136-145)
--- NOTE | 2021-11-19 14:13 | CASEMGMT ---
Social Work SW attempted to meet with pt however pt is in procedure. Phone call to [facility]. SW spoke with Job who states pt [place] a [place] and can return when medically ready. Clinical updates sent via [employer] system. Plan: [facility], intermediate level of care. Can return when medically ready ZIGGY Devlin
--- NOTE | 2021-11-19 15:09 | PCM.PN.HOSP ---
Subjective Subjective Patient was seen and examined today, her potassium at this time is 5.4, I talked to critical care and nephrology briefly about her care today, patient appears stable for transfer to PCU at this time. Objective Data Objective Data Vital Signs: Vital Signs Temp Pulse Resp BP Pulse Ox O2 Del Method O2 Flow Rate 96.8 F L 69 16 152/56 H 96 Nasal Cannula 2 11/19/21 13:00 11/19/21 14:00 11/19/21 14:00 11/19/21 14:00 11/19/21 14:00 11/19/21 14:00 11/19/21 14:00 FiO2 30 11/19/21 11:00 Oxygen Flow Rate (L/min) 2 Oxygen Delivery Method Nasal Cannula Weight: 203 kg Body Mass Index (BMI) 67.7 Intake & Output: Intake and Output for Last 24 Hours 11/17/21 11/18/21 11/19/21 23:59 23:59 23:59 Intake Total 30 / 660 3548.33 / 3548.33 Output Total 1800 / 1800 Balance 30 / 660 1748.33 / 1748.33 Lab / Micro Data Result Diagrams: 11/18/21 19:43 11/19/21 12:45 Labs: Laboratory Results - last 24 hr 11/18/21 19:43: WBC 9.0, RBC 3.36 L, Hgb 9.6 L, Hct 34.3 L, MCV 102.1 H, MCH 28.6, MCHC 28.0 L, RDW Std Deviation 59.7 H, RDW Coeff of Amirah 16.0 H, Plt Count 291, MPV 10.4, Immature Gran % (Auto) 0.400, Neut % (Auto) 71.2 H, Lymph % (Auto) 18.5 L, [place] % (Auto) 9.3, Eos % (Auto) 0.2, Baso % (Auto) 0.4, Absolute Neuts (auto) 6.4, Absolute Lymphs (auto) 1.67, Nucleated RBC % 0 11/18/21 19:43: Sodium 137, Potassium 8.8 H*, Chloride 103, Carbon Dioxide 29.0, Anion Gap 5, BUN 57 H, Creatinine 2.52 H, Estim Creat Clear Calc 23.65, Est GFR (MDRD) Af Amer 25 L, Est GFR (MDRD) Non-Af 21 L, BUN/Creatinine Ratio 22.6 H, Glucose 122 H, Calcium 9.3, Total Bilirubin 0.50, AST 49 H, ALT 31, Alkaline Phosphatase 234 H, Troponin I High Sens 18, Total Protein 9.7 H, Albumin 3.0 L, Globulin 6.7 H, Albumin/Globulin Ratio 0.4 L, TSH 5.59 H 11/18/21 19:43: Phosphorus 5.0 H, Magnesium 2.5 11/18/21 19:50: Urine Color Yellow, Urine Clarity Clear, Urine pH 5.0, Ur Specific [place] 1.015, Urine Protein 30 H, Urine Glucose (UA) Normal, Urine Ketones Negative, Urine Occult Blood 150 H, Urine Nitrite Negative, Urine Bilirubin Negative, Urine Urobilinogen 4 H, Ur Leukocyte Esterase 25 H, Urine RBC 10-25 SEEN, Urine WBC 0-5 SEEN, Ur Squamous Epith Cells 0-5 SEEN, Urine Bacteria RARE, Urine Mucus 0 SEEN 11/18/21 19:50: Ur Random Sodium 23, Urine Creatinine 96.20 11/18/21 22:10: POC Glucose 114 H 11/18/21 22:30: Sodium 139, Potassium 7.3 H*, Chloride 103, Carbon Dioxide 30.0, Anion Gap 6, BUN 57 H, Creatinine 2.47 H, Estim Creat Clear Calc 24.13, Est GFR (MDRD) Af Amer 26 L, Est GFR (MDRD) Non-Af 21 L, BUN/Creatinine Ratio 23.1 H, Glucose 161 H, Calcium 9.7, Troponin I High Sens 17 11/19/21 02:55: Troponin I High Sens 17 11/19/21 02:55: Sodium 138, Potassium 6.8 H*, Chloride 102, Carbon Dioxide 33.0 H, Anion Gap 3 L, BUN 53 H, Creatinine 2.39 H, Estim Creat Clear Calc 24.94, Est GFR (MDRD) Af Amer 26 L, Est GFR (MDRD) Non-Af 22 L, BUN/Creatinine Ratio 22.2 H, Glucose 135 H, Calcium 9.2, Total Bilirubin 0.40, AST 56 H, ALT 34, Alkaline Phosphatase 215 H, Total Protein 9.1 H, Albumin 2.9 L, Globulin 6.2 H, Albumin/Globulin Ratio 0.5 L, Free T4 0.75 L 11/19/21 02:55: Phosphorus 4.5, Magnesium 2.4 11/19/21 08:30: Sodium 140, Potassium 6.2 H*, Chloride 104, Carbon Dioxide 34.0 H, Anion Gap 2 L, BUN 51 H, Creatinine 2.26 H, Estim Creat Clear Calc 26.37, Est GFR (MDRD) Af Amer 28 L, Est GFR (MDRD) Non-Af 23 L, BUN/Creatinine Ratio 22.6 H, Glucose 113 H, Calcium 9.6 11/19/21 11:03: POC Glucose 133 H 11/19/21 12:45: Sodium 140, Potassium 5.4 H, Chloride 101, Carbon Dioxide 37.0 H, Anion Gap 2 L, BUN 51 H, Creatinine 2.15 H, Estim Creat Clear Calc 27.72, Est GFR (MDRD) Af Amer 30 L, Est GFR (MDRD) Non-Af 25 L, BUN/Creatinine Ratio 23.7 H, Glucose 162 H, Calcium 9.8 ABG Data ABG results: ABG 11/18/21 19:49 Specimen Type ART Sample Site L Radial pH 7.33 L Bicarbonate Actual 25.7 Total CO2 27 Base Excess 0 O2 Saturation 93 L ABG pCO2 49.3 H ABG pO2 71 L Cyril Test Positive O2 Delivery Device Cannula Liter Flow 2.0 Radiography Diagnostic Testing: Radiology Impression Chest X-Ray 11/18/21 19:52 IMPRESSION: Question CHF. Electronically Signed: Ralph DarrellDO at 20:39 EDT Reading Location ID and State: [address] [place] [address] Tel [phone], Service support , Rhythm Strip Rhythm Strip: junctional Rate: 43 Ectopy: None Physical Exam Const alert, oriented x3 and no apparent distress Constitutional Narrative: Patient is morbidly obese General Appearance: cooperative, well kempt and well developed Orientation / Consciousness: awake, oriented to person, oriented to place and oriented to time HEENT normocephalic, head/scalp atraumatic and moist oral mucous membranes Eyes PERRL, EOMs intact bilaterally and conjunctivae normal Neck supple, no JVD, thyroid normal and no carotid bruits General: trachea midline Resp normal respiratory effort, no retractions, no use of accessory muscles and clear to auscultation bilaterally Auscultation: Negative for rales, rhonchi or wheezes Cardio regular rate, regular rhythm, S1 normal heart sound, S2 normal heart sound, no murmurs, no rub and no gallops GI normal to inspection, nondistended, normoactive bowel sounds, soft to palpation, non-tender and non-distended Extremity no clubbing, cyanosis or edema Skin no rashes or lesions noted General Skin Exam: no breakdown Neuro oriented x3, CN's II-XII intact bilaterally, no focal motor deficits and no sensory deficits noted Sensorium / Orientation: awake and alert Speech: speech normal Psych affect normal Assessment & Plan Assessment/Plan (1) Hyperkalemia: PLAN: Plan 1. Hyperkalemia-secondary to acute kidney injury-patient appears stable for transfer to PCU at this time, I have changed her IV fluid to normal saline after talking with nephrology. #2 acute kidney injury-possibly secondary to Bactrim usage-continue to monitor creatinine, creatinine is improved over admission, continue fluid administration, nephrology is participating in her care #3 type 2 diabetes-blood sugars will be monitored, sliding scale insulin will be used as needed, patient will remain on basal insulin #4 morbid obesity-complicates care, management, recovery, and prognosis #5 chronic hypoxic and hypercapnic respiratory failure-patient is on baseline nasal cannula oxygen #6 obstructive sleep apnea-patient is currently on CPAP when sleeping, pulmonary medicine is participating in her care #7 essential hypertension-continue with present medications for blood pressure #8 chronic debility-PT and OT will continue to see the patient #9 chronic pain syndrome-patient remains on oral pain medications #10 iron deficiency anemia-patient remains on ferrous sulfate Charges/Coding Visit Charges Inpatient E&M: 76889 Subs Hosp L3
--- NOTE | 2021-11-19 15:13 | PCM.CONS.R ---
Assessment & Plan Assessment/Plan (1) LORNE (acute kidney injury): PLAN: Baseline renal function is normal. She was on Lasix, potassium, received Bactrim. Most likely acute renal failure related to all the above medications. She was also noted to be on ibuprofen. Renal ultrasound is pending. Creatinine is improving already. Urine analysis does show some leukocytes. Currently does not have any urinary symptoms prior to admission. (2) Hyperkalemia: PLAN: Likely due to combination of potassium use, renal failure, Bactrim use. Significant EKG changes on admission. Potassium levels have improved. Repeat potassium in about 4 hours. IV fluids can be changed to normal saline since serum bicarbonate is on the higher side. HPI Consult Data Date of Consult: 11/19/21 HPI Narrative Reason for Consultation: Acute renal failure, hyperkalemia HPI Narrative: Krissy ARITA, is a 60 F who presents to the hospital with generalized weakness. Nephrology on consultation for acute renal and hyperkalemia. Recently admitted to rehab after hospital stay. Diagnosed with UTI, was prescribed Bactrim which she has finished. Presented to the ER with generalized weakness. Was found to have life-threatening hyperkalemia with EKG changes including wide-complex QRS. She has received medical treatment including calcium, insulin, dextrose. Normal renal function at baseline. Currently alert awake oriented x3. Kiran catheter with good urine output. No breathing difficulties. [facility] Medical History Anemia Anxiety Asthma Chronic respiratory failure with hypoxia and hypercapnia CPAP (continuous positive airway pressure) dependence Hypertension Obesity Sleep apnea Type 2 diabetes mellitus Home Medications albuterol sulfate 2.5 mg/3 mL (0.083 %) solution for nebulization 2.5 mg inhalation Q6HWA.RT PRN Asthma 11/23/12 [History Last Taken 07/31/21 13:00] lorazepam 1 mg tablet 0.5 - 1 mg PO BID PRN Anxiety 09/27/14 [History Last Taken 07/30/15] fluticasone propionate 50 mcg/actuation nasal spray,suspension 2 spray DAILY PRN Sinus Symptoms 02/22/16 [History Last Taken 1 Week Ago ~07/24/21] benzonatate 100 mg capsule 100 mg PO TID PRN Cough 07/31/21 [History Last Taken 07/31/21] cyclobenzaprine 5 mg tablet 5 mg PO TID PRN Spasms 07/31/21 [History Last Taken Unknown] acetaminophen 325 mg tablet (Tylenol) 650 mg PO Q6H PRN PRN Pain Score 1-10/Temp > 100.7 F #0 tabs 08/15/21 [Rx Last Taken Unknown] ascorbic acid (vitamin C) 500 mg tablet 500 mg PO BIDCM #0 tabs 08/15/21 [Rx Last Taken Unknown] ferrous sulfate 325 mg (65 mg iron) tablet (FeroSul) 325 mg PO BIDCM #0 tabs 08/15/21 [Rx Last Taken Unknown] lorazepam 1 mg tablet 1 mg PO BID PRN PRN Anxiety 3 days #6 tabs 08/15/21 [Rx Last Taken Unknown] magnesium chloride 64 mg (magnesium chloride) tablet,delayed release (Mag 64) 128 mg PO DAILY #0 tabs 08/15/21 [Rx Last Taken Unknown] nystatin 100,000 unit/gram topical powder (Nyamyc) 1 applic topical TID #0 grams 08/15/21 [Rx Last Taken Unknown] oxycodone 5 mg tablet 5 mg PO Q4H PRN PRN Pain Score 4-5 3 days #10 tabs 08/15/21 [Rx Last Taken Unknown] bisacodyl 10 mg rectal suppository (Dulcolax (bisacodyl)) 10 mg [place] DAILY 11/18/21 [History Last Taken Unknown] diclofenac sodium 1 % topical gel ea topical 11/18/21 [History Last Taken Unknown] dulaglutide 1.5 mg/0.5 mL subcutaneous pen injector (Trulicity) 1.5 mg subcut QWEEK 11/18/21 [History Last Taken Unknown] erythromycin 2 % topical ointment 1 ea topical 1XD 11/18/21 [History Last Taken Unknown] furosemide 40 mg tablet 80 mg PO DAILY 11/18/21 [History Last Taken Unknown] gabapentin 100 mg capsule 100 mg PO TID 11/18/21 [History Last Taken Unknown] ibuprofen 400 mg tablet (IBU) 400 mg PO Q8H 11/18/21 [History Last Taken Unknown] insulin glargine U-300 conc 300 unit/mL (1.5 mL) subcutaneous pen (Olga Villanueva U-300 Insulin) 40 unit subcut DAILY 11/18/21 [History Last Taken Unknown] insulin lispro 100 unit/mL subcutaneous pen 2 unit subcut TID 11/18/21 [History Last Taken Unknown] metoclopramide HCl 5 mg tablet (Reglan) 5 mg PO DAILY 11/18/21 [History Last Taken Unknown] omeprazole 40 mg capsule,delayed release 40 mg PO DAILY 11/18/21 [History Last Taken Unknown] oxycodone 5 mg tablet 5 mg PO Q6H 11/18/21 [History Last Taken Unknown] potassium chloride 20 mEq tablet,extended release 40 meq PO BID 11/18/21 [History Last Taken Unknown] sulfamethoxazole 800 mg-trimethoprim 160 mg tablet (Bactrim DS) 1 tab PO BID 11/18/21 [History Last Taken Unknown] venlafaxine 75 mg capsule,extended release 24 hr (Effexor XR) 75 mg PO DAILY 11/18/21 [History Last Taken Unknown] Allergy/AdvReac Type Severity Reaction Status Date / Time codeine Allergy Nausea/Vom/ Verified 11/18/21 19:20 Diarrhea iodine Allergy Swelling Verified 11/18/21 19:20 latex Allergy Shortness Verified 11/18/21 19:20 of breath meloxicam Allergy Rash Verified 11/18/21 19:20 Penicillins Allergy Shortness Verified 11/18/21 19:20 of breath tositumomab Allergy NEEDS Verified 11/18/21 19:20 FOLLOW-UP hydrocodone bitartrate AdvReac Nausea/Vom/ Verified 11/18/21 19:20 [From Vicodin] Diarrhea prednisone AdvReac Other Verified 11/18/21 19:20 Surgical History History of cholecystectomy Social History Smoking Status: Never smoker substance use type: does not use ROS ROS Narrative Negative except history Physical Exam Narrative Alert awake oriented x 3 no obvious distress no pallor no icterus no JVD s1s2 no murmurs lungs clear abdomen soft no organomegaly no edema no cyanosis kiran + Lab / Micro Data Result Diagrams: 11/18/21 19:43 11/19/21 12:45 Labs: Laboratory Results - last 24 hr 11/18/21 19:43: WBC 9.0, RBC 3.36 L, Hgb 9.6 L, Hct 34.3 L, MCV 102.1 H, MCH 28.6, MCHC 28.0 L, RDW Std Deviation 59.7 H, RDW Coeff of Amirah 16.0 H, Plt Count 291, MPV 10.4, Immature Gran % (Auto) 0.400, Neut % (Auto) 71.2 H, Lymph % (Auto) 18.5 L, Patrick % (Auto) 9.3, Eos % (Auto) 0.2, Baso % (Auto) 0.4, Absolute Neuts (auto) 6.4, Absolute Lymphs (auto) 1.67, Nucleated RBC % 0 11/18/21 19:43: Sodium 137, Potassium 8.8 H*, Chloride 103, Carbon Dioxide 29.0, Anion Gap 5, BUN 57 H, Creatinine 2.52 H, Estim Creat Clear Calc 23.65, Est GFR (MDRD) Af Amer 25 L, Est GFR (MDRD) Non-Af 21 L, BUN/Creatinine Ratio 22.6 H, Glucose 122 H, Calcium 9.3, Total Bilirubin 0.50, AST 49 H, ALT 31, Alkaline Phosphatase 234 H, Troponin I High Sens 18, Total Protein 9.7 H, Albumin 3.0 L, Globulin 6.7 H, Albumin/Globulin Ratio 0.4 L, TSH 5.59 H 11/18/21 19:43: Phosphorus 5.0 H, Magnesium 2.5 11/18/21 19:50: Urine Color Yellow, Urine Clarity Clear, Urine pH 5.0, Ur Specific [place] 1.015, Urine Protein 30 H, Urine Glucose (UA) Normal, Urine Ketones Negative, Urine Occult Blood 150 H, Urine Nitrite Negative, Urine Bilirubin Negative, Urine Urobilinogen 4 H, Ur Leukocyte Esterase 25 H, Urine RBC 10-25 SEEN, Urine WBC 0-5 SEEN, Ur Squamous Epith Cells 0-5 SEEN, Urine Bacteria RARE, Urine Mucus 0 SEEN 11/18/21 19:50: Ur Random Sodium 23, Urine Creatinine 96.20 11/18/21 22:10: POC Glucose 114 H 11/18/21 22:30: Sodium 139, Potassium 7.3 H*, Chloride 103, Carbon Dioxide 30.0, Anion Gap 6, BUN 57 H, Creatinine 2.47 H, Estim Creat Clear Calc 24.13, Est GFR (MDRD) Af Amer 26 L, Est GFR (MDRD) Non-Af 21 L, BUN/Creatinine Ratio 23.1 H, Glucose 161 H, Calcium 9.7, Troponin I High Sens 17 11/19/21 02:55: Troponin I High Sens 17 11/19/21 02:55: Sodium 138, Potassium 6.8 H*, Chloride 102, Carbon Dioxide 33.0 H, Anion Gap 3 L, BUN 53 H, Creatinine 2.39 H, Estim Creat Clear Calc 24.94, Est GFR (MDRD) Af Amer 26 L, Est GFR (MDRD) Non-Af 22 L, BUN/Creatinine Ratio 22.2 H, Glucose 135 H, Calcium 9.2, Total Bilirubin 0.40, AST 56 H, ALT 34, Alkaline Phosphatase 215 H, Total Protein 9.1 H, Albumin 2.9 L, Globulin 6.2 H, Albumin/Globulin Ratio 0.5 L, Free T4 0.75 L 11/19/21 02:55: Phosphorus 4.5, Magnesium 2.4 11/19/21 08:30: Sodium 140, Potassium 6.2 H*, Chloride 104, Carbon Dioxide 34.0 H, Anion Gap 2 L, BUN 51 H, Creatinine 2.26 H, Estim Creat Clear Calc 26.37, Est GFR (MDRD) Af Amer 28 L, Est GFR (MDRD) Non-Af 23 L, BUN/Creatinine Ratio 22.6 H, Glucose 113 H, Calcium 9.6 11/19/21 11:03: POC Glucose 133 H 11/19/21 12:45: Sodium 140, Potassium 5.4 H, Chloride 101, Carbon Dioxide 37.0 H, Anion Gap 2 L, BUN 51 H, Creatinine 2.15 H, Estim Creat Clear Calc 27.72, Est GFR (MDRD) Af Amer 30 L, Est GFR (MDRD) Non-Af 25 L, BUN/Creatinine Ratio 23.7 H, Glucose 162 H, Calcium 9.8 ABG Data ABG results: ABG 11/18/21 19:49 Specimen Type ART Sample Site L Radial pH 7.33 L Bicarbonate Actual 25.7 Total CO2 27 Base Excess 0 O2 Saturation 93 L ABG pCO2 49.3 H ABG pO2 71 L Cyril Test Positive O2 Delivery Device Cannula Liter Flow 2.0 Rhythm Strip Rhythm Strip: junctional Rate: 43 Ectopy: None Radiology Impression Chest X-Ray 11/18/21 19:52 IMPRESSION: Question CHF. Electronically Signed: Ralph Ramírez DO at 20:39 EDT Reading Location ID and State: [address] [place] [address] Tel [phone], Service support ,
[2021-11-19] MEDS: 0.9% Normal Saline 1,000 ML 100 ML IV (16:48)
[2021-11-19 16:50] LABS: Bedside Glucose 138 mg/dL (74-106)
[2021-11-19 16:52] LABS: Anion Gap 3 (5-15); BUN 49 mg/dL (7-18); BUN/Creat Ratio 23.9 RATIO (10-20); Calcium,Total 9.4 mg/dL (8.5-10.1); Chloride 102 mmol/L (98-107); Creatinine, Serum 2.05 mg/dL (0.55-1.02); EST Glomerular Filtration Rate 26 mL/min (>60); Est Glom Filt Rate - Afr Amer 32 mL/min (>60); Estimated Creatinine Clearance 29.07 ml/min; Glucose 131 mg/dL (74-106); Potassium 5.5 mmol/L (3.5-5.1); Sodium Level 141 mmol/L (136-145)
[2021-11-19 20:09] LABS: Anion Gap 2 (5-15); BUN 50 mg/dL (7-18); BUN/Creat Ratio 24.6 RATIO (10-20); Calcium,Total 9.5 mg/dL (8.5-10.1); Chloride 101 mmol/L (98-107); Creatinine, Serum 2.03 mg/dL (0.55-1.02); EST Glomerular Filtration Rate 26 mL/min (>60); Est Glom Filt Rate - Afr Amer 32 mL/min (>60); Estimated Creatinine Clearance 29.36 ml/min; Glucose 119 mg/dL (74-106); Potassium 5.4 mmol/L (3.5-5.1); Sodium Level 139 mmol/L (136-145)
[2021-11-19 21:36] LABS: Bedside Glucose 108 mg/dL (74-106)
[2021-11-19] MEDS: Glycerin/Hypromellose/PEG400 15 ml Bottle 1 DRP EACH EYE (22:32)
[2021-11-20] VITALS (9 sets, daily range): BP systolic 120–139; BP diastolic 30–68; PULSE 65–72; RESP 12–16; TEMP 36.4–36.6; O2SAT 93–96
[2021-11-20 01:21] LABS: Bedside Glucose 116 mg/dL (74-106)
--- NOTE | 2021-11-20 02:27 | NURSING ---
Patient right eye red and dry artificial tears ordered. Patient requesting hydrocortisone cream for feet [place] states patient having dry skin that is causing pruritis and hydrocortisone cream not effective, feet rubbed with lotion instead patient states that helps with pruritis
[2021-11-20] MEDS: 0.9% Normal Saline 1,000 ML 100 ML IV (02:39)
[2021-11-20] MEDS: Acetaminophen 325 MG Tablet 650 MG PO ×2 (02:40→09:14)
--- NOTE | 2021-11-20 05:26 | NURSING ---
Patient requested Ativan but upon further assessment patient having some lethargy and Ativan not administered and returned to [facility]
[2021-11-20] MEDS: Gabapentin 100 MG Capsule PO (06:12)
[2021-11-20] MEDS: oxyCODONE 5 MG Tablet PO ×3 (06:14→11:37)
[2021-11-20] MEDS: Nystatin Powder 15gm Bottle 1 APPLIC TOPICAL (06:19)
[2021-11-20 07:24] LABS: Anion Gap 2 (5-15); BUN 48 mg/dL (7-18); BUN/Creat Ratio 27.1 RATIO (10-20); Chloride 102 mmol/L (98-107); Creatinine, Serum 1.77 mg/dL (0.55-1.02); EST Glomerular Filtration Rate 31 mL/min (>60); Est Glom Filt Rate - Afr Amer 37 mL/min (>60); Estimated Creatinine Clearance 33.67 ml/min; Glucose 86 mg/dL (74-106); Potassium 4.9 mmol/L (3.5-5.1); Sodium Level 139 mmol/L (136-145)
[2021-11-20 08:30] LABS: Bedside Glucose 81 mg/dL (74-106)
[2021-11-20] MEDS: Metoclopramide 5 MG TABLET PO (09:02)
[2021-11-20] MEDS: Ascorbic Acid 500 MG Tablet PO (09:03)
[2021-11-20] MEDS: Menthol/Lanolin/Calamine/Znox 113 GM Tube 1 APPLIC TOPICAL (09:03)
[2021-11-20] MEDS: Insulin Glargine-YFGN 100 UNIT/ML Pen 40 UNIT SC (09:04)
[2021-11-20] MEDS: Insulin Lispro 100 UNIT/ML INSULN.PEN SC ×2 (09:04→11:35)
[2021-11-20] MEDS: Heparin Injection (Vial) 5,000 UNIT/ML VIAL 5000 UNIT SC (09:04)
[2021-11-20] MEDS: Erythromycin Base 1 OPTH.TUBE 1 APPLIC LEFT EYE (09:05)
[2021-11-20] MEDS: Ferrous Sulfate 325 MG Tablet PO (09:07)
[2021-11-20] MEDS: Pantoprazole Sodium 40 MG Tablet PO (09:10)
[2021-11-20] MEDS: Venlafaxine XR 75 MG Capsule PO (09:10)
--- NOTE | 2021-11-20 10:15 | PN.CC_ITS ---
Assessment & Plan Assessment/Plan (1) Hyperkalemia: (2) LORNE (acute kidney injury): (3) Chronic respiratory insufficiency: (4) Obesity hypoventilation syndrome: (5) Obesity due to excess calories with serious comorbidity: PLAN: Plan RECOMMENDATIONS: 1. Likely okay to reinitiate baseline Lasix if okay with nephrology 2. Consider increasing bowel regimen chronically 3. Continue telemetry 4. Consider weaning off of narcotics if possible 5. Hemodynamically stable on baseline oxygen. Will sign off from a critical care perspective IMPRESSIONS: 1. Acute kidney injury with hyperkalemia and EKG changes Improving. Patient appears to respond to conservative therapy with calcium gluconate, IV insulin, bicarb and Kayexalate. Clinical suspicion for Bactrim induced acute kidney injury. Patient does continue to improve. Patient is off of bicarbonate drip. Could consider reinitiation of Lasix from my perspective, but defer to nephrology. Patient currently hemodynamically stable on minimal nasal cannula, so will sign off. 2. Bradycardia/tachycardia with hyperkalemia Cardiology has been consulted. Clinical suspicion for changes secondary to hyperkalemia. Patient does appear to be responding well to therapy. Cardiac enzymes have not been remarkable. No further work-up recommended. 3. Chronic combined respiratory failure/HONEY/OHS Patient normally on 2 L nasal cannula. Patient does have stigmata of CO2 retention with a bicarbonate of 33. Patient appears to be relatively compensated on ABG. Patient is using CPAP right now with sleep. Appears to be at baseline. Patient would benefit from cessation of opiates if possible. No acute interventions required at this time. 4. Diabetes mellitus type 2/hypertension/depression/debility/chronic pain Complicates care, management, recovery and prognosis. Opiates and benzodiazepines will complicate OHS. Patient does not appear to be in exacerbation to require steroids. Patient can continue on her baseline antihypertensive medications, but ibuprofen and HYUN inhibitor's need to be held secondary to problem #1. Subjective Subjective Patient did well overnight. No acute issues are reported. Patient subjectively feels improved compared to yesterday. Discussed with the son at the bedside and he feels that she is more interactive today compared to yesterday. Objective Data Objective Data Vital Signs: Vital Signs Temp Pulse Resp BP Pulse Ox O2 Del Method O2 Flow Rate 36.6 C 72 16 139/68 H 94 Nasal Cannula 2 11/20/21 09:11 11/20/21 09:11 11/20/21 09:11 11/20/21 09:11 11/20/21 09:11 11/20/21 09:11 11/20/21 09:11 FiO2 30 11/20/21 04:19 Oxygen Flow Rate (L/min) 2 Oxygen Delivery Method Nasal Cannula Weight: 205.4 kg Body Mass Index (BMI) 67.7 Intake & Output: Intake and Output for Last 24 Hours 11/18/21 11/19/21 11/20/21 23:59 23:59 23:59 Intake Total 5098.33 / 5098.33 985 / 985 Output Total 3650 / 3650 400 / 400 Balance 1448.33 / 1448.33 585 / 585 Lab / Micro Data Attestation: I reviewed the patient's lab results. Result Diagrams: 11/18/21 19:43 11/20/21 06:40 Labs: Laboratory Results - last 24 hr 11/19/21 02:55: Sodium 138, Potassium 6.8 H*, Chloride 102, Carbon Dioxide 33.0 H, Anion Gap 3 L, BUN 53 H, Creatinine 2.39 H, Estim Creat Clear Calc 24.94, Est GFR (MDRD) Af Amer 26 L, Est GFR (MDRD) Non-Af 22 L, BUN/Creatinine Ratio 22.2 H , Glucose 135 H, Calcium 9.2, Total Bilirubin 0.40, AST 56 H, ALT 34, Alkaline Phosphatase 215 H, Total Protein 9.1 H, Albumin 2.9 L, Globulin 6.2 H, Albumin/Globulin Ratio 0.5 L, Free T4 0.75 L 11/19/21 07:54: POC Glucose 108 H 11/19/21 11:03: POC Glucose 133 H 11/19/21 12:45: Sodium 140, Potassium 5.4 H, Chloride 101, Carbon Dioxide 37.0 H , Anion Gap 2 L, BUN 51 H, Creatinine 2.15 H, Estim Creat Clear Calc 27.72, Est GFR (MDRD) Af Amer 30 L, Est GFR (MDRD) Non-Af 25 L, BUN/Creatinine Ratio 23.7 H , Glucose 162 H, Calcium 9.8 11/19/21 16:05: Sodium 141, Potassium 5.5 H, Chloride 102, Carbon Dioxide 36.0 H , Anion Gap 3 L, BUN 49 H, Creatinine 2.05 H, Estim Creat Clear Calc 29.07, Est GFR (MDRD) Af Amer 32 L, Est GFR (MDRD) Non-Af 26 L, BUN/Creatinine Ratio 23.9 H , Glucose 131 H, Calcium 9.4 11/19/21 16:24: POC Glucose 138 H 11/19/21 19:50: Sodium 139, Potassium 5.4 H, Chloride 101, Carbon Dioxide 36.0 H , Anion Gap 2 L, BUN 50 H, Creatinine 2.03 H, Estim Creat Clear Calc 29.36, Est GFR (MDRD) Af Amer 32 L, Est GFR (MDRD) Non-Af 26 L, BUN/Creatinine Ratio 24.6 H , Glucose 119 H, Calcium 9.5 11/19/21 21:34: POC Glucose 116 H 11/20/21 06:40: Sodium 139, Potassium 4.9, Chloride 102, Carbon Dioxide 35.0 H, Anion Gap 2 L, BUN 48 H, Creatinine 1.77 H, Estim Creat Clear Calc 33.67, Est GFR (MDRD) Af Amer 37 L, Est GFR (MDRD) Non-Af 31 L, BUN/Creatinine Ratio 27.1 H , Glucose 86, Calcium 9.0 11/20/21 08:09: POC Glucose 81 Radiography Diagnostic Testing: Radiology Impression Renal Ultrasound 11/19/21 05:55 IMPRESSION: Normal ultrasound of the kidneys. Electronically Signed: Jeses James MD at 16:57 EDT , Rhythm Strip Rhythm Strip: junctional Rate: 43 Ectopy: None Physical Exam Const alert, oriented x3 and no apparent distress Constitutional Narrative: Morbidly obese. On CPAP during my evaluation. Readily converses with s timulation HEENT normocephalic and head/scalp atraumatic Eyes no scleral icterus Eyes Narrative: Some injection noted in the right eye medial aspect Neck no lymphadenopathy and supple General: trachea midline Resp normal respiratory effort, normal air movement and no use of accessory muscles Effort and Inspection: Negative for actively coughing Auscultation: diminished lung sounds; Negative for rales, rhonchi or wheezes Cardio regular rate, regular rhythm, S1 normal heart sound, S2 normal heart sound, no murmurs, no rub, no gallops and peripheral pulses 2+ throughout Rate: bradycardia and tachycardic GI normal to inspection, nondistended, normoactive bowel sounds, soft to palpation and non-tender Extremity normal capillary refill General Extremity: edema bilateral lower extremity Details: moderate Skin Lesions: no lesions Rashes: no rashes Neuro no focal motor deficits and no sensory deficits noted Psych thought process normal, cooperative and affect normal Charges/Coding Visit Charges Inpatient E&M: 93352 Subs Hosp L2
--- NOTE | 2021-11-20 11:38 | PCM.TXEXTCAR ---
Diet Diet Order/Speech Therapy: 11/18/21 21:45 Diet: Consistent Carb - Calorie Controlled Dietary Modifications:: Potassium Restricted How many daily calories?: 1800 calorie Routine Orders/Code Status O2 Liters per Minute: 2 O2 Frequency: CPAP as before Routine Lab Work: BMP (on 11/23 21) and - (fingerstick blood sugars ACQHS-Humalog sq per scale: 200-250: 5 units sq, 251-300: 8 units sq, 301-350: 12 units sq; 351-400: 15 units sq ) Code Status: Full Code Therapies Weight Bearing: Full weight bearing Physical Therapy: Eval and Treat Occupational Therapy: Eval and Treat Problem/Diagnosis (1) Hyperkalemia: Status: Acute Code(s): E87.5 - Hyperkalemia (2) LORNE (acute kidney injury): Status: Acute Code(s): N17.9 - Acute kidney failure, unspecified Comment: Do not restart diuretics for 3 days (3) Chronic respiratory insufficiency: Status: Chronic Code(s): R06.89 - Other abnormalities of breathing (4) Obesity hypoventilation syndrome: Status: Acute Code(s): E66.2 - Morbid (severe) obesity with alveolar hypoventilation (5) Obesity due to excess calories with serious comorbidity: Status: Acute Code(s): E66.09 - Other obesity due to excess calories (6) Chronic pain: Status: Chronic Code(s): G89.29 - Other chronic pain Plan 1. Hyperkalemia-secondary to acute kidney injury-patient appears stable for transfer to PCU at this time #2 acute kidney injury-possibly secondary to Bactrim usage-continue to monitor creatinine, creatinine is improved over admission #3 type 2 diabetes-blood sugars will be monitored, sliding scale insulin will be used as needed, patient will remain on basal insulin #4 morbid obesity-complicates care, management, recovery, and prognosis #5 chronic hypoxic and hypercapnic respiratory failure-patient is on baseline nasal cannula oxygen #6 obstructive sleep apnea-patient is currently on CPAP when sleeping, pulmonary medicine is participating in her care #7 essential hypertension-continue with present medications for blood pressure #8 chronic debility-PT and OT will continue to see the patient #9 chronic pain syndrome-patient remains on oral pain medications #10 iron deficiency anemia-patient remains on ferrous sulfate Allergies/Procedures Done in Hospital Allergies codeine Allergy (Verified 11/18/21 19:20) Nausea/Vom/Diarrhea iodine Allergy (Verified 11/18/21 19:20) Swelling latex Allergy (Verified 11/18/21 19:20) Shortness of breath meloxicam Allergy (Verified 11/18/21 19:20) Rash Penicillins Allergy (Verified 11/18/21 19:20) Shortness of breath tositumomab Allergy (Verified 11/18/21 19:20) NEEDS FOLLOW-UP hydrocodone bitartrate [From Vicodin] Adverse Reaction (Verified 11/18/21 19:20) Nausea/Vom/Diarrhea prednisone Adverse Reaction (Verified 11/18/21 19:20) Other INCREASED BLOOD SUGAR Procedures: None Type of Care/Length of Stay Estimated LOS: More Than 30 Days Type of Care Needed: Intermediate Rehab Potential: Fair Prognosis: Fair Additional Orders/Day of Discharge H&P will serve as current which was dated: 11/18/21 Day of Discharge: 11/20/21 Dietary and Speech Recommendations Dietitian Recommendations/Changes: 1800 calorie controlled, consistent CHO diet; will add potassium restriction. Close monitoring of PO intake, labs, and will adjust diet restrictions as indicated. Discharge Plan Admission Admit Date/Time: 11/18/21 20:38 Primary Reason for Your Visit: hyperkalemia, renal failure Attending Provider: Jim Pizarro Primary Care Provider: Silvia Tolbert Consulting Providers: Winter Hamm ; Henry Vargas ; Ammy Agarwal Discharge Orders/Prescriptions Prescriptions: New lorazepam 1 mg Tablet 1 mg PO BID PRN PRN (Reason: Anxiety) Qty: 5 0RF oxycodone 5 mg Tablet 5 mg PO TID 5 Days Qty: 15 0RF acetaminophen [Tylenol] 325 mg Tablet 650 mg PO Q4H PRN PRN (Reason: Fever, pain 1-10/10) Qty: 0 0RF oxycodone 5 mg Tablet 5 mg PO Q6H PRN PRN (Reason: Pain Score 4-10) 5 Days Qty: 8 0RF lactulose 20 gram/30 mL solution 20 g PO BID Qty: 1200 0RF Rx Instructions: stop if patient having diarrhea furosemide [Lasix] 40 mg tablet 40 mg PO DAILY Qty: 1 0RF Rx Instructions: start on 11/23/21 Continued albuterol sulfate 2.5 MG/3 ML solution for nebulization 2.5 mg inhalation Q6HWA.RT PRN (Reason: Asthma) Label Comments: ASTHMA fluticasone propionate 1 SPRAY spray,suspension 2 spray NASAL DAILY PRN (Reason: Sinus Symptoms) Label Comments: ALLERGIES benzonatate 100 mg capsule 100 mg PO TID PRN (Reason: Cough) Label Comments: take 1 capsule by mouth three times a day if needed for cough cyclobenzaprine 5 mg tablet 5 mg PO TID PRN (Reason: Spasms) Label Comments: take 1 tablet by mouth three times a day if needed acetaminophen [Tylenol] 325 mg Tablet 650 mg PO Q6H PRN PRN (Reason: Pain Score 1-10/Temp > 100.7 F) Qty: 0 0RF ascorbic acid (vitamin C) 500 mg Tablet 500 mg PO BIDCM Qty: 0 0RF ferrous sulfate [FeroSul] 325 mg (65 mg iron) Tablet 325 mg PO BIDCM Qty: 0 0RF venlafaxine [Effexor XR] 75 mg Capsule,Extended Release 24hr 75 mg PO DAILY erythromycin 2 % Ointment 1 ea TOPICAL 1XD Rx Instructions: ribbon to L EYE bisacodyl [Dulcolax (bisacodyl)] 10 mg Suppository 10 mg NC DAILY omeprazole 40 mg Capsule,Delayed Release(Dr/Ec) 40 mg PO DAILY Trulicity 1.5 mg/0.5 mL Pen Injector 1.5 mg SUBCUT QWEEK Rx Instructions: [place] SoloStar U-300 Insulin 300 unit/mL (1.5 mL) Insulin Pen 40 unit SUBCUT DAILY diclofenac sodium 1 % Gel TOPICAL Discontinued lorazepam 1 MG tablet 0.5 - 1 mg PO BID PRN (Reason: Anxiety) Label Comments: take 1 tablet by mouth twice a day if needed- anxiety/nerves nystatin [Nyamyc] 100,000 unit/gram Powder 1 applic topical TID Qty: 0 0RF Protocol: *Topical Application Instructions APPLICATION INSTRUCTIONS: To folds lorazepam 1 mg Tablet 1 mg PO BID PRN PRN (Reason: Anxiety) 3 Days Qty: 6 0RF oxycodone 5 mg Tablet 5 mg PO Q4H PRN PRN (Reason: Pain Score 4-5) 3 Days Qty: 10 0RF Mag 64 64 mg Tablet,Delayed Release (Dr/Ec) 128 mg PO DAILY Qty: 0 0RF furosemide 40 mg tablet 80 mg PO DAILY sulfamethoxazole-trimethoprim [Bactrim DS] 800-160 mg Tablet 1 tab PO BID gabapentin 100 mg Capsule 100 mg PO TID insulin lispro [Humalog Pen] 100 unit/mL Insulin Pen 2 unit SUBCUT TID Rx Instructions: SSI 2-6 units/dose ibuprofen [IBU] 400 mg Tablet 400 mg PO Q8H oxycodone 5 mg Tablet 5 mg PO Q6H potassium chloride 20 mEq Tablet Extended Release 40 meq PO BID metoclopramide HCl [Reglan] 5 mg Tablet 5 mg PO DAILY Referrals / Follow Up: Silvia Tolbert MD [Primary Care Provider] - Disposition Disposition (needs filled in before D/C Order can be placed): Group Home Facility
--- NOTE | 2021-11-20 11:47 | PN.RENAL_ITS ---
Subjective Subjective No new complaints Objective Data Objective Data Vital Signs: Vital Signs Temp Pulse Resp BP Pulse Ox O2 Del Method O2 Flow Rate 97.9 F 72 16 139/68 H 94 Nasal Cannula 2 11/20/21 09:11 11/20/21 09:11 11/20/21 09:11 11/20/21 09:11 11/20/21 09:11 11/20/21 09:11 11/20/21 09:11 FiO2 30 11/20/21 04:19 Oxygen Flow Rate (L/min) 2 Oxygen Delivery Method Nasal Cannula Weight: 205.4 kg Body Mass Index (BMI) 67.7 Intake & Output: Intake and Output for Last 24 Hours 11/18/21 11/19/21 11/20/21 23:59 23:59 23:59 Intake Total 30 / 660 5098.33 / 5098.33 1345 / 1345 Output Total 3650 / 3650 750 / 750 Balance 30 / 660 1448.33 / 1448.33 595 / 595 Lab / Micro Data Result Diagrams: 11/18/21 19:43 11/20/21 06:40 Labs: Laboratory Results - last 24 hr 11/19/21 07:54: POC Glucose 108 H 11/19/21 12:45: Sodium 140, Potassium 5.4 H, Chloride 101, Carbon Dioxide 37.0 H , Anion Gap 2 L, BUN 51 H, Creatinine 2.15 H, Estim Creat Clear Calc 27.72, Est GFR (MDRD) Af Amer 30 L, Est GFR (MDRD) Non-Af 25 L, BUN/Creatinine Ratio 23.7 H , Glucose 162 H, Calcium 9.8 11/19/21 16:05: Sodium 141, Potassium 5.5 H, Chloride 102, Carbon Dioxide 36.0 H , Anion Gap 3 L, BUN 49 H, Creatinine 2.05 H, Estim Creat Clear Calc 29.07, Est GFR (MDRD) Af Amer 32 L, Est GFR (MDRD) Non-Af 26 L, BUN/Creatinine Ratio 23.9 H , Glucose 131 H, Calcium 9.4 11/19/21 16:24: POC Glucose 138 H 11/19/21 19:50: Sodium 139, Potassium 5.4 H, Chloride 101, Carbon Dioxide 36.0 H , Anion Gap 2 L, BUN 50 H, Creatinine 2.03 H, Estim Creat Clear Calc 29.36, Est GFR (MDRD) Af Amer 32 L, Est GFR (MDRD) Non-Af 26 L, BUN/Creatinine Ratio 24.6 H , Glucose 119 H, Calcium 9.5 11/19/21 21:34: POC Glucose 116 H 11/20/21 06:40: Sodium 139, Potassium 4.9, Chloride 102, Carbon Dioxide 35.0 H, Anion Gap 2 L, BUN 48 H, Creatinine 1.77 H, Estim Creat Clear Calc 33.67, Est GFR (MDRD) Af Amer 37 L, Est GFR (MDRD) Non-Af 31 L, BUN/Creatinine Ratio 27.1 H , Glucose 86, Calcium 9.0 11/20/21 08:09: POC Glucose 81 Radiography Diagnostic Testing: Radiology Impression Renal Ultrasound 11/19/21 05:55 IMPRESSION: Normal ultrasound of the kidneys. Electronically Signed: Jesse James MD at 16:57 EDT , Rhythm Strip Rhythm Strip: junctional Rate: 43 Ectopy: None Physical Exam Narrative Alert awake oriented x 3 no obvious distress no pallor no icterus no JVD s1s2 no murmurs lungs clear abdomen soft no organomegaly no edema no cyanosis kiran + Assessment & Plan Assessment/Plan (1) LORNE (acute kidney injury): PLAN: Baseline renal function is normal. She was on Lasix, potassium, received Bactrim. Most likely acute renal failure related to all the above medications. She was also noted to be on ibuprofen. Renal ultrasound is normal. Creatinine is improving already. Urine analysis does show some leukocytes. Currently does not have any urinary symptoms prior to admission. (2) Hyperkalemia: PLAN: Likely due to combination of potassium use, renal failure, Bactrim use. Significant EKG changes on admission. Potassium levels have improved. erin francisco. ok to dc today. resume lasix in 2-3 days. repeat BMP friday. erin family at bedside
[2021-11-20 11:55] LABS: Bedside Glucose 105 mg/dL (74-106)
--- NOTE | 2021-11-20 12:32 | NURSING ---
Called report to Toma palmer
--- NOTE | 2021-11-20 12:35 | CASEMGMT ---
Discharge Inspector [employer] This teletypewriter operator set up transportation with [facility]. pipe finishing supervisor will be in 30-60 minutes. RN is notified and son is at bedside and has been notified. Miguel at the nursing made aware. Plan: [facility], Waiting for transport. Felicia Bettencourt Discharge Inspector [employer]
--- NOTE | 2021-11-20 14:49 | DS.PCM_ITS ---
Providers Date of Admission: 11/18/21 Date of Discharge: 11/20/21 Primary Care Physician: Dr. Silvia Tolbert MD Consultations 11/18/21 21:44 Consult: Electric Motor Repairer / Pulmonary Medicine Routine Consulting Provider: Henry Vargas Reason for Consult: Hyperkalemia, LORNE, Tachy-stevie likely 2/2 electrolytes EMERGENT Consult: No Notified: Yes Date Notified: 11/18/21 Time Notified: 20:43 Method of Notification: Text 11/19/21 00:05 Consult: Nephrology Routine Consulting Provider: Ammy Agarwal Reason for Consult: LORNE, Hyperkalemia EMERGENT Consult: No MD Notified: Yes Date Notified: 11/19/21 Time Notified: 00:06 Method of Notification: Answering Service Reason For Visit: LORNE, HYPERKALEMIA Diagnosis Discharge Diagnosis (1) Hyperkalemia: Status: Resolved Code(s): E87.5 - Hyperkalemia (2) LORNE (acute kidney injury): Status: Resolved Code(s): N17.9 - Acute kidney failure, unspecified (3) Chronic respiratory insufficiency: Status: Chronic Code(s): R06.89 - Other abnormalities of breathing (4) Obesity hypoventilation syndrome: Status: Acute Code(s): E66.2 - Morbid (severe) obesity with alveolar hypoventilation (5) Obesity due to excess calories with serious comorbidity: Status: Acute Code(s): E66.09 - Other obesity due to excess calories (6) Chronic pain: Status: Chronic Code(s): G89.29 - Other chronic pain Plan 1. Hyperkalemia-secondary to acute kidney injury-patient appears stable for transfer to PCU at this time #2 acute kidney injury-possibly secondary to Bactrim usage-continue to monitor creatinine, creatinine is improved over admission #3 type 2 diabetes-blood sugars will be monitored, sliding scale insulin will be used as needed, patient will remain on basal insulin #4 morbid obesity-complicates care, management, recovery, and prognosis #5 chronic hypoxic and hypercapnic respiratory failure-patient is on baseline nasal cannula oxygen #6 obstructive sleep apnea-patient is currently on CPAP when sleeping, pulmonary medicine is participating in her care #7 essential hypertension-continue with present medications for blood pressure #8 chronic debility-PT and OT will continue to see the patient #9 chronic pain syndrome-patient remains on oral pain medications #10 iron deficiency anemia-patient remains on ferrous sulfate Medications at Discharge Home Medications albuterol sulfate 2.5 mg/3 mL (0.083 %) solution for nebulization 2.5 mg inhalation Q6HWA.RT PRN Asthma 11/23/12 fluticasone propionate 50 mcg/actuation nasal spray,suspension 2 spray DAILY PRN Sinus Symptoms 02/22/16 benzonatate 100 mg capsule 100 mg PO TID PRN Cough 07/31/21 cyclobenzaprine 5 mg tablet 5 mg PO TID PRN Spasms 07/31/21 acetaminophen 325 mg tablet (Tylenol) 650 mg PO Q6H PRN PRN Pain Score 1-10/Temp > 100.7 F #0 tabs 08/15/21 ascorbic acid (vitamin C) 500 mg tablet 500 mg PO BIDCM #0 tabs 08/15/21 ferrous sulfate 325 mg (65 mg iron) tablet (FeroSul) 325 mg PO BIDCM #0 tabs 08/15/21 bisacodyl 10 mg rectal suppository (Dulcolax (bisacodyl)) 10 mg MT DAILY 11/18/21 diclofenac sodium 1 % topical gel ea topical 11/18/21 dulaglutide 1.5 mg/0.5 mL subcutaneous pen injector (Trulicity) 1.5 mg subcut QWEEK 11/18/21 erythromycin 2 % topical ointment 1 ea topical 1XD 11/18/21 insulin glargine U-300 conc 300 unit/mL (1.5 mL) subcutaneous pen (Olga Villanueva U-300 Insulin) 40 unit subcut DAILY 11/18/21 omeprazole 40 mg capsule,delayed release 40 mg PO DAILY 11/18/21 venlafaxine 75 mg capsule,extended release 24 hr (Effexor XR) 75 mg PO DAILY 11/18/21 acetaminophen 325 mg tablet (Tylenol) 650 mg PO Q4H PRN PRN Fever, pain 1-10/10 #0 tabs 11/20/21 furosemide 40 mg tablet (Lasix) 40 mg PO DAILY #1 TAB 11/20/21 lactulose 20 gram/30 mL oral solution 20 g (30 mL) PO BID #1,200 mL 11/20/21 lorazepam 1 mg tablet 1 mg PO BID PRN PRN Anxiety #5 tabs 11/20/21 oxycodone 5 mg tablet 5 mg PO Q6H PRN PRN Pain Score 4-10 5 days #8 tabs 11/20/21 oxycodone 5 mg tablet 5 mg PO TID 5 days #15 tabs 11/20/21 Hospital Course Operations None Procedures None Summary of Care Provided Minutes Spent on Discharge: 32 Hospital Course: 60-year-old black female was seen in the emergency room at [facility] after being transferred from an extended care facility at which she resides due to generalized weakness. Work-up in the emergency room revealed her creatinine to be elevated, her potassium was also elevated at 8.8. Patient was noted to be bradycardic. Patient was admitted to the ICU, she was seen in consultation by pulmonary medicine, she was given IV fluids, and seen in consultation by nephrology, it was theorized that since the patient recently had been on Bactrim for urinary tract infection at the [facility] care facility, her acute renal failure was secondary to the administration of the Bactrim. No other etiology could be ascertained, patient's labs improved with administration of fluids and her bradycardia resolved. Patient was eventually moved to PCU for further care, she was seen by PT and OT also. On 11/20/2021, patient was seen and examined: On examination she appeared in good health and spirits, she does not appear to be in any distress. Patient is morbidly obese. Vital signs as documented. Skin warm and dry and without overt rashes. Neck without JVD, thyroid appears normal, trachea is midline, neck is supple. Lungs clear, normal air movement was noted. Heart exam notable for regular rhythm, normal sounds and absence of murmurs, rubs or gallops. Abdomen unremarkable and without evidence of organomegaly, masses, or abdominal aortic enlargement, bowel sounds are present in all 4 quadrants, no abdominal ten derness was noted. Extremities nonedematous, no cyanosis was noted, no clubbing was noted. Neuro: Cranial nerves II through XII are grossly intact, no focal motor deficits were noted, sensation to light touch and pinprick is intact, motor exam 5/5 throughout. Psych: Patient is alert and oriented x3, she does not appear anxious or depressed, she does not appear agitated. On 11/20/2021, patient was seen and examined and felt to be in stable condition for discharge back to her retirement facility. Weight / BMI Weight Weight: 205.4 kg Body Mass Index (BMI) 67.7 ABG / Lab / Microbiology Data Result Diagrams: 11/18/21 19:43 11/20/21 06:40 Laboratory: Laboratory Results - last 24 hr 11/19/21 07:54: POC Glucose 108 H 11/19/21 16:05: Sodium 141, Potassium 5.5 H, Chloride 102, Carbon Dioxide 36.0 H , Anion Gap 3 L, BUN 49 H, Creatinine 2.05 H, Estim Creat Clear Calc 29.07, Est GFR (MDRD) Af Amer 32 L, Est GFR (MDRD) Non-Af 26 L, BUN/Creatinine Ratio 23.9 H , Glucose 131 H, Calcium 9.4 11/19/21 16:24: POC Glucose 138 H 11/19/21 19:50: Sodium 139, Potassium 5.4 H, Chloride 101, Carbon Dioxide 36.0 H , Anion Gap 2 L, BUN 50 H, Creatinine 2.03 H, Estim Creat Clear Calc 29.36, Est GFR (MDRD) Af Amer 32 L, Est GFR (MDRD) Non-Af 26 L, BUN/Creatinine Ratio 24.6 H , Glucose 119 H, Calcium 9.5 11/19/21 21:34: POC Glucose 116 H 11/20/21 06:40: Sodium 139, Potassium 4.9, Chloride 102, Carbon Dioxide 35.0 H, Anion Gap 2 L, BUN 48 H, Creatinine 1.77 H, Estim Creat Clear Calc 33.67, Est GFR (MDRD) Af Amer 37 L, Est GFR (MDRD) Non-Af 31 L, BUN/Creatinine Ratio 27.1 H , Glucose 86, Calcium 9.0 11/20/21 08:09: POC Glucose 81 11/20/21 11:33: POC Glucose 105 Microbiology: Microbiology 11/20/21 12:05 Nasal Secretion SARS-CoV-2 Antigen (Rapid) - Final Radiography Diagnostic Testing: Radiology Impression Renal Ultrasound 11/19/21 05:55 IMPRESSION: Normal ultrasound of the kidneys. Electronically Signed: Jesse James MD at 16:57 EDT , Meaningful Use Info Meaningful Use Diagnoses (Choose all that apply): None applicable Discharge Plan Admission Admit Date/Time: 11/18/21 20:38 Primary Reason for Your Visit: hyperkalemia, renal failure Attending Provider: Jim Pizarro Primary Care Provider: Silvia Tolbert Consulting Providers: Winter Hamm ; Henry Vargas ; Ammy Agarwal Discharge Orders/Prescriptions Prescriptions: New lorazepam 1 mg Tablet 1 mg PO BID PRN PRN (Reason: Anxiety) Qty: 5 0RF oxycodone 5 mg Tablet 5 mg PO TID 5 Days Qty: 15 0RF acetaminophen [Tylenol] 325 mg Tablet 650 mg PO Q4H PRN PRN (Reason: Fever, pain 1-10/10) Qty: 0 0RF oxycodone 5 mg Tablet 5 mg PO Q6H PRN PRN (Reason: Pain Score 4-10) 5 Days Qty: 8 0RF lactulose 20 gram/30 mL solution 20 g PO BID Qty: 1200 0RF Rx Instructions: stop if patient having diarrhea furosemide [Lasix] 40 mg tablet 40 mg PO DAILY Qty: 1 0RF Rx Instructions: start on 11/23/21 Continued albuterol sulfate 2.5 MG/3 ML solution for nebulization 2.5 mg inhalation Q6HWA.RT PRN (Reason: Asthma) Label Comments: ASTHMA fluticasone propionate 1 SPRAY spray,suspension 2 spray NASAL DAILY PRN (Reason: Sinus Symptoms) Label Comments: ALLERGIES benzonatate 100 mg capsule 100 mg PO TID PRN (Reason: Cough) Label Comments: take 1 capsule by mouth three times a day if needed for cough cyclobenzaprine 5 mg tablet 5 mg PO TID PRN (Reason: Spasms) Label Comments: take 1 tablet by mouth three times a day if needed acetaminophen [Tylenol] 325 mg Tablet 650 mg PO Q6H PRN PRN (Reason: Pain Score 1-10/Temp > 100.7 F) Qty: 0 0RF ascorbic acid (vitamin C) 500 mg Tablet 500 mg PO BIDCM Qty: 0 0RF ferrous sulfate [FeroSul] 325 mg (65 mg iron) Tablet 325 mg PO BIDCM Qty: 0 0RF venlafaxine [Effexor XR] 75 mg Capsule,Extended Release 24hr 75 mg PO DAILY erythromycin 2 % Ointment 1 ea TOPICAL 1XD Rx Instructions: ribbon to L EYE bisacodyl [Dulcolax (bisacodyl)] 10 mg Suppository 10 mg MT DAILY omeprazole 40 mg Capsule,Delayed Release(Dr/Ec) 40 mg PO DAILY Trulicity 1.5 mg/0.5 mL Pen Injector 1.5 mg SUBCUT QWEEK Rx Instructions: [place] SolisoStar U-300 Insulin 300 unit/mL (1.5 mL) Insulin Pen 40 unit SUBCUT DAILY diclofenac sodium 1 % Gel TOPICAL Discontinued lorazepam 1 MG tablet 0.5 - 1 mg PO BID PRN (Reason: Anxiety) Label Comments: take 1 tablet by mouth twice a day if needed- anxiety/nerves nystatin [Nyamyc] 100,000 unit/gram Powder 1 applic topical TID Qty: 0 0RF Protocol: *Topical Application Instructions APPLICATION INSTRUCTIONS: To folds lorazepam 1 mg Tablet 1 mg PO BID PRN PRN (Reason: Anxiety) 3 Days Qty: 6 0RF oxycodone 5 mg Tablet 5 mg PO Q4H PRN PRN (Reason: Pain Score 4-5) 3 Days Qty: 10 0RF Mag 64 64 mg Tablet,Delayed Release (Dr/Ec) 128 mg PO DAILY Qty: 0 0RF furosemide 40 mg tablet 80 mg PO DAILY sulfamethoxazole-trimethoprim [Bactrim DS] 800-160 mg Tablet 1 tab PO BID gabapentin 100 mg Capsule 100 mg PO TID insulin lispro [Humalog Pen] 100 unit/mL Insulin Pen 2 unit SUBCUT TID Rx Instructions: SSI 2-6 units/dose ibuprofen [IBU] 400 mg Tablet 400 mg PO Q8H oxycodone 5 mg Tablet 5 mg PO Q6H potassium chloride 20 mEq Tablet Extended Release 40 meq PO BID metoclopramide HCl [Reglan] 5 mg Tablet 5 mg PO DAILY Referrals / Follow Up: Silvia Tolbert MD [Primary Care Provider] - Disposition Disposition (needs filled in before D/C Order can be placed): Nursing Home Facility Charges/Coding Visit Charges Inpatient E&M: 39257 Disch Hosp
== END 2021-11-20 13:07 | disposition skilled nursing facility (03) | DRG 469 ==
LOC: ED 19:57 → ICU 20:49 → PCU 11-20 12:06 → ICU 11-20 15:35
PROVIDERS: Internal Medicine Critical Care Medicine; Admitting Provider Family Medicine; Emergency Provider Emergency Medicine; PCP Internal Medicine; Visit Provider Internal Medicine
DX: N17.9 Acute kidney failure, unspecified (principal); J96.12 Chronic respiratory failure with hypercapnia; I49.5 Sick sinus syndrome; E66.2 Morbid (severe) obesity with alveolar hypoventilation; Z68.44 Body mass index [BMI] 60.0-69.9, adult; E11.9 Type 2 diabetes mellitus without complications; D50.9 Iron deficiency anemia, unspecified; E78.5 Hyperlipidemia, unspecified; J96.11 Chronic respiratory failure with hypoxia; Z79.4 Long term (current) use of insulin; E87.5 Hyperkalemia; J45.909 Unspecified asthma, uncomplicated; K29.70 Gastritis, unspecified, without bleeding; L30.4 Erythema intertrigo; Z99.81 Dependence on supplemental oxygen; Z79.899 Other long term (current) drug therapy; Z87.440 Personal history of urinary (tract) infections; R53.81 Other malaise; F32.A Depression, unspecified; G89.4 Chronic pain syndrome; T36.8X5A Adverse effect of other systemic antibiotics, initial encounter
CPT/HCPCS: 36415; 36600; 71045; 76770; 80048; 80053; 81001; 82570; 82803; 82962; 83735; 84100; 84300; 84439; 84443; 84484; 85025; 87426; 93005; 94002; 94003; 94640; 94660; 94762; 97162; 97166; 97802; 99285; J7030; P9612; 90686; A4216; J0610; J1940

== ENCOUNTER 2021-11-29 07:09 | Emergency (ER) | payer MEDICAID, SELFPAY ==
[2021-11-29 07:10] VITALS: BP 143/43; PULSE 81; RESP 18; TEMP 36.7; O2SAT 97; BMI 67.8
--- NOTE | 2021-11-29 07:31 | VDUE_ITS ---
Reason For Study: swelling Right Proximal Right jugular vein is spontaneous, widely patent, phasic, with no intraluminal echogenicity noted. Right subclavian vein is spontaneous, widely patent, phasic, with no intraluminal echogenicity noted. Right Lower Arm Right radial vein is compressible. Right ulnar vein is compressible. Right Arm Right axillary vein is spontaneous, patent, phasic, competent, compressible and demonstrates augmentation. Heterogeneous area in the upper arm measuring 1.45 x 1.22 cm. Area is nonvascular. Right brachial vein is compressible. Right cephalic vein is compressible. Right basilic vein is compressible. Prelim to Dr. Tucker. VL/Venous Duplex US, Unilateral Interpretation Summary No evidence for acute deep venous thrombosis[right] upper extremity with patent and compressible cephalic and basilic veins. 1.45 x 1.22 cm heterogenous structure right upper a rm seemingly in the subcutaneous layer appearing nonvascular. Clinical correlation would be appropr iate Ordering Physician: Kishan Tucker Performed By: Freeman Hernandes RVT ???
--- NOTE | 2021-11-29 07:32 | EX.ED.UPPERE ---
HPI History of Present Illness Chief Complaint: Upper Extremity Injury Detail of Chief Complaint: Concern for blood clot in right upper arm Informant: patient Narrative Narrative: Patient presents the emergency department via EMS from [facility] with concern for a DVT of the right upper extremity. Patient tells me that she was seen in the emergency department about a week and a half ago for a lump that she noticed in the right upper arm that was believed to be a hematoma but no formal ultrasound was done at that time. Patient tells me she has had 2 ultrasounds since then and one 2 days ago that showed a DVT so she was sent in to be treated for this DVT. Patient denies any arm swelling otherwise. She denies any significant swelling. She denies chest pain or shortness of breath. She has no history of DVTs. Patient is currently at a [facility] rehabilitating. [facility] Medical History Anemia Anxiety Asthma Chronic respiratory failure with hypoxia and hypercapnia CPAP (continuous positive airway pressure) dependence Hypertension Obesity Sleep apnea Type 2 diabetes mellitus Home Medications albuterol sulfate 2.5 mg/3 mL (0.083 %) solution for nebulization 2.5 mg inhalation Q6HWA.RT PRN Asthma 11/23/12 [History Last Taken 07/31/21 13:00] fluticasone propionate 50 mcg/actuation nasal spray,suspension 2 spray DAILY PRN Sinus Symptoms 02/22/16 [History Last Taken 1 Week Ago ~07/24/21] benzonatate 100 mg capsule 100 mg PO TID PRN Cough 07/31/21 [History Last Taken 07/31/21] cyclobenzaprine 5 mg tablet 5 mg PO TID PRN Spasms 07/31/21 [History Last Taken Unknown] acetaminophen 325 mg tablet (Tylenol) 650 mg PO Q6H PRN PRN Pain Score 1-10/Temp > 100.7 F #0 tabs 08/15/21 [Rx Last Taken Unknown] ascorbic acid (vitamin C) 500 mg tablet 500 mg PO BIDCM #0 tabs 08/15/21 [Rx Last Taken Unknown] ferrous sulfate 325 mg (65 mg iron) tablet (FeroSul) 325 mg PO BIDCM #0 tabs 08/15/21 [Rx Last Taken Unknown] bisacodyl 10 mg rectal suppository (Dulcolax (bisacodyl)) 10 mg PA DAILY 11/18/21 [History Last Taken Unknown] diclofenac sodium 1 % topical gel ea topical 11/18/21 [History Last Taken Unknown] dulaglutide 1.5 mg/0.5 mL subcutaneous pen injector (Trulicity) 1.5 mg subcut QWEEK 11/18/21 [History Last Taken Unknown] erythromycin 2 % topical ointment 1 ea topical 1XD 11/18/21 [History Last Taken Unknown] insulin glargine U-300 conc 300 unit/mL (1.5 mL) subcutaneous pen (Toujeo SoloStar U-300 Insulin) 40 unit subcut DAILY 11/18/21 [History Last Taken Unknown] omeprazole 40 mg capsule,delayed release 40 mg PO DAILY 11/18/21 [History Last Taken Unknown] venlafaxine 75 mg capsule,extended release 24 hr (Effexor XR) 75 mg PO DAILY 11/18/21 [History Last Taken Unknown] acetaminophen 325 mg tablet (Tylenol) 650 mg PO Q4H PRN PRN Fever, pain 1-10/10 #0 tabs 11/20/21 [Rx Last Taken Unknown] furosemide 40 mg tablet (Lasix) 40 mg PO DAILY #1 TAB 11/20/21 [Rx Last Taken Unknown] lactulose 20 gram/30 mL oral solution 20 g (30 mL) PO BID #1,200 mL 11/20/21 [Rx Last Taken Unknown] lorazepam 1 mg tablet 1 mg PO BID PRN PRN Anxiety #5 tabs 11/20/21 [Rx Last Taken Unknown] oxycodone 5 mg tablet 5 mg PO Q6H PRN PRN Pain Score 4-10 5 days #8 tabs 11/20/21 [Rx Last Taken Unknown] insulin lispro 100 unit/mL subcutaneous pen subcut 11/29/21 [History Last Taken Unknown] Allergy/AdvReac Type Severity Reaction Status Date / Time codeine Allergy Nausea/Vom/ Verified 11/18/21 19:20 Diarrhea iodine Allergy Swelling Verified 11/18/21 19:20 latex Allergy Shortness Verified 11/18/21 19:20 of breath meloxicam Allergy Rash Verified 11/18/21 19:20 Penicillins Allergy Shortness Verified 11/18/21 19:20 of breath [email or web address] Allergy NEEDS Verified 11/18/21 19:20 FOLLOW-UP hydrocodone bitartrate AdvReac Nausea/Vom/ Verified 11/18/21 19:20 [From Vicodin] Diarrhea prednisone AdvReac Other Verified 11/18/21 19:20 Surgical History History of cholecystectomy Social History Smoking Status: Never smoker substance use type: does not use ROS ROS ED Review of Systems ROS Unobtainable: other Constitutional Constitutional ED: Reports lethargy; Denies chills, fever(s), sweats or weight loss Eyes Eyes: Denies blurry vision, change in vision or diplopia ENT ENT ED: Denies rhinorrhea or sore throat Cardiovascular Cardiovascular: Denies chest pain, orthopnea or racing heartbeat Respiratory/Chest Respiratory/Chest: Denies cough, dyspnea, dyspnea on exertion, orthopnea or sputum Gastrointestinal Gastrointestinal: Denies abdominal pain, diarrhea, nausea or vomiting Genitourinary Genitourinary ED: Denies dysuria, hematuria or urinary frequency Musculoskeletal Musculoskeletal: Denies arthralgias, back pain, myalgias or neck pain Integumentary Reports other Details: Small soft tissue swelling right upper arm ; Denies abscess, Abrasions or rash Neurologic Neurologic: Denies headache(s) or weakness Psychiatric Psychiatric: Denies anxiety, depression or suicidal thoughts Endocrine Endocrinology: Denies polydipsia, polyphagia or polyuria Hematologic/Lymphatic Hematologic/Lymphatic: Denies easy bleeding, easy bruising or lymphadenopathy Allergic/Immunologic Allergic/Immunologic ED: Denies mouth swelling, tongue swelling or urticaria EXAM Physical Exam Const Vital Signs: 11/29/21 07:10 Temperature 98.1 F Temperature Source Oral Pulse Rate 81 Respiratory Rate 18 Blood Pressure 143/43 H Blood Pressure Mean 76 Pulse Ox 97 Oxygen Delivery Method Room Air Positive well nourished and well developed General Appearance ED: well developed and NAD HEENT Reports TM's clear and moist mucous membranes normocephalic and atraumatic; Negative for trauma or tenderness Tympanic Membrane ED: Yes TM's clear Eyes PERRL and EOMs intact bilaterally General Eye ED: Negative for pale conjunctiva or scleral icterus Neck no lymphadenopathy, supple and no JVD General: Negative for tenderness Chest Wall inspection of chest normal and palpation of chest normal Chest: Negative for tenderness Resp normal respiratory effort and clear to auscultation bilaterally Effort and Inspection: Negative for respiratory distress or pain with movement Auscultation: Negative for rhonchi, wheezes or diminished lung sounds Cardio regular rate, regular rhythm, S1 normal heart sound, S2 normal heart sound and no murmurs Peripheral Pulses: pulses 2+ throughout GI normal to inspection, nondistended, normoactive bowel sounds, soft to palpation, non-tender, non-distended and no masses GI Narrative: Patient morbidly obese Back/Spine no CVA tenderness and no thoracic nor lumbar tenderness Extremity Extremity Narrative: Evaluation of the right upper arm reveals no edema and normal pulses. She does have a small soft tissue mass in the right upper arm just distal to the axilla measures approximately 2 cm in diameter that is freely movable within the soft tissues. General Extremety ED: Negative for edema General Extremity: Negative for edema Neuro oriented x3, CN's II-XII intact bilaterally, no sensory deficits noted and gait normal Sensorium / Orientation: awake, alert, oriented to person, oriented to place and oriented to time Motor Exam: strength 5/5 throughout and strength abnormal Psych mental status grossly normal Skin no rashes or lesions noted and no wounds MDM MDM MDM Narrative Medical decision making narrative: Patient had a venous Doppler of the right upper extremity and was negative for DVT. Patient does have a small 2 cm mass in the soft tissues of the right upper arm which could be lipoma versus small hematoma. At this point I will feel any other treatment is indicated. If this does not resolve over time may require biopsy or removal. At this time she does not require any anticoagulation. Clinically her exam is not consistent with DVT. Discharge Plan Triage Chief Complaint: Upper Extremity Injury ED Provider: Kishan Tucker Dx/Rx/DC Orders Clinical Impression: Mass of soft tissue of right upper extremity Instructions: ED Hematoma Prescriptions: No Action albuterol sulfate 2.5 MG/3 ML solution for nebulization 2.5 mg inhalation Q6HWA.RT PRN (Reason: Asthma) Label Comments: ASTHMA fluticasone propionate 1 SPRAY spray,suspension 2 spray NASAL DAILY PRN (Reason: Sinus Symptoms) Label Comments: ALLERGIES benzonatate 100 mg capsule 100 mg PO TID PRN (Reason: Cough) Label Comments: take 1 capsule by mouth three times a day if needed for cough cyclobenzaprine 5 mg tablet 5 mg PO TID PRN (Reason: Spasms) Label Comments: take 1 tablet by mouth three times a day if needed acetaminophen [Tylenol] 325 mg Tablet 650 mg PO Q6H PRN PRN (Reason: Pain Score 1-10/Temp > 100.7 F) Qty: 0 0RF ascorbic acid (vitamin C) 500 mg Tablet 500 mg PO BIDCM Qty: 0 0RF ferrous sulfate [FeroSul] 325 mg (65 mg iron) Tablet 325 mg PO BIDCM Qty: 0 0RF venlafaxine [Effexor XR] 75 mg Capsule,Extended Release 24hr 75 mg PO DAILY erythromycin 2 % Ointment 1 ea TOPICAL 1XD Rx Instructions: ribbon to L EYE bisacodyl [Dulcolax (bisacodyl)] 10 mg Suppository 10 mg PA DAILY omeprazole 40 mg Capsule,Delayed Release(Dr/Ec) 40 mg PO DAILY Trulicity 1.5 mg/0.5 mL Pen Injector 1.5 mg SUBCUT QWEEK Rx Instructions: Toujeo SoloStar U-300 Insulin 300 unit/mL (1.5 mL) Insulin Pen 40 unit SUBCUT DAILY diclofenac sodium 1 % Gel TOPICAL lorazepam 1 mg Tablet 1 mg PO BID PRN PRN (Reason: Anxiety) Qty: 5 0RF acetaminophen [Tylenol] 325 mg Tablet 650 mg PO Q4H PRN PRN (Reason: Fever, pain 1-10/10) Qty: 0 0RF oxycodone 5 mg Tablet 5 mg PO Q6H PRN PRN (Reason: Pain Score 4-10) 5 Days Qty: 8 0RF lactulose 20 gram/30 mL solution 20 g PO BID Qty: 1200 0RF Rx Instructions: stop if patient having diarrhea furosemide [Lasix] 40 mg tablet 40 mg PO DAILY Qty: 1 0RF Rx Instructions: start on 11/23/21 insulin lispro [Humalog Pen] 100 unit/mL Insulin Pen SUBCUT Primary Care Provider: Silvia Tolbert Referrals: Silvia Tolbert MD [Primary Care Provider] - 5-7 Days Disposition Disposition: Home, Self Care
--- NOTE | 2021-11-29 08:49 | NURSING ---
[facility] CALLED, ETA IS 10:50
[2021-11-29 09:33] VITALS: BP 144/63
== END 2021-11-29 11:53 | disposition skilled nursing facility (03) ==
PROVIDERS: Emergency Provider Emergency Medicine; PCP Internal Medicine; Visit Provider Emergency Medicine
DX: R22.31 Localized swelling, mass and lump, right upper limb (principal); E11.9 Type 2 diabetes mellitus without complications; Z79.4 Long term (current) use of insulin; I10 Essential (primary) hypertension; J45.909 Unspecified asthma, uncomplicated; G47.30 Sleep apnea, unspecified; Z79.899 Other long term (current) drug therapy
CPT/HCPCS: 93971; 99284

== ENCOUNTER 2022-08-14 17:57 | Inpatient (IN) | payer MEDICAID, SELFPAY ==
[2022-08-14 17:59] VITALS: BP 83/53; PULSE 103; RESP 22; TEMP 36.1; O2SAT 98
--- NOTE | 2022-08-14 18:20 | EX.ED.DYSGE1 ---
HPI History of Present Illness Chief Complaint: Abd Pain Informant: patient and family Onset/Context/Timing Onset: Days Context: Gradual Onset Narrative Narrative: Patient presents with 5 to 7-day history of diarrhea. She states she is going to dozen times a day or more. No obvious blood in the stool. She was seen by her PCP on Friday and given some medicine to help stop diarrhea but it has not worked. Yesterday she started vomiting and has had vomiting yesterday and today as well. She denies fever. She believes that the symptoms started about the same time that her diabetes medication dosing was changed. [facility] Medical History Anemia Anxiety Asthma Chronic respiratory failure with hypoxia and hypercapnia CPAP (continuous positive airway pressure) dependence Hypertension Obesity Sleep apnea Type 2 diabetes mellitus Home Medications albuterol sulfate 2.5 mg/3 mL (0.083 %) solution for nebulization 2.5 mg inhalation Q6HWA.RT PRN Asthma 11/23/12 [History Last Taken 07/31/21 13:00] acetaminophen 325 mg tablet (Tylenol) 650 mg PO Q6H PRN PRN Pain Score 1-10/Temp > 100.7 F #0 tabs 08/15/21 [Rx Last Taken Unknown] ascorbic acid (vitamin C) 500 mg tablet 500 mg PO BIDCM #0 tabs 08/15/21 [Rx Last Taken Unknown] ferrous sulfate 325 mg (65 mg iron) tablet (FeroSul) 325 mg PO BIDCM #0 tabs 08/15/21 [Rx Last Taken Unknown] diclofenac sodium 1 % topical gel 1 ea topical PRN PRN Pain 11/18/21 [History Last Taken Unknown] omeprazole 40 mg capsule,delayed release 40 mg PO DAILY 11/18/21 [History Last Taken Unknown] acetaminophen 325 mg tablet (Tylenol) 650 mg PO Q4H PRN PRN Fever, pain 1-10/10 #0 tabs 11/20/21 [Rx Last Taken Unknown] furosemide 40 mg tablet (Lasix) 40 mg PO DAILY #1 TAB 11/20/21 [Rx Last Taken Unknown] lorazepam 1 mg tablet 1 mg PO BID PRN PRN Anxiety #5 tabs 11/20/21 [Rx Last Taken Unknown] albuterol sulfate 90 mcg/actuation aerosol inhaler (Ventolin HFA) 2 puff inhalation Q4H PRN shortness of breath or wheezing #18 grams 01/30/22 [Rx Last Taken Unknown] fluticasone propionate 50 mcg/actuation nasal spray,suspension 2 spray DAILY PRN Sinus Symptoms #16 grams 01/30/22 [Rx Last Taken Unknown] losartan 50 mg tablet 50 mg PO DAILY 01/30/22 [History Last Taken Unknown] ondansetron HCl 4 mg tablet 4 mg PO PRN PRN Nausea 08/14/22 [History Last Taken Unknown] Allergy/AdvReac Type Severity Reaction Status Date / Time codeine Allergy Nausea/Vom/ Verified 08/14/22 17:59 Diarrhea iodine Allergy Swelling Verified 08/14/22 17:59 latex Allergy Shortness Verified 08/14/22 17:59 of breath meloxicam Allergy Rash Verified 08/14/22 17:59 Penicillins Allergy Shortness Verified 08/14/22 17:59 of breath [email or web address] Allergy NEEDS Verified 08/14/22 17:59 FOLLOW-UP hydrocodone bitartrate AdvReac Nausea/Vom/ Verified 08/14/22 17:59 [From Vicodin] Diarrhea prednisone AdvReac Other Verified 08/14/22 17:59 Surgical History History of cholecystectomy Social History Smoking Status: Never smoker substance use type: does not use ROS ROS ED Constitutional Constitutional ED: Denies chills or fever(s) Eyes Eyes: Denies change in vision ENT ENT ED: Denies rhinorrhea Cardiovascular Cardiovascular: Denies chest pain or palpitations Respiratory/Chest Respiratory/Chest: Denies cough or dyspnea Gastrointestinal Gastrointestinal: Reports abdominal pain, diarrhea, nausea and vomiting Genitourinary Genitourinary ED: Reports other Details: Decreased urine output ; Denies dysuria Neurologic Neurologic: Reports weakness; Denies headache(s) Allergic/Immunologic Allergic/Immunologic ED: Denies mouth swelling or tongue swelling EXAM Physical Exam Const Vital Signs: 08/14/22 17:59 08/14/22 19:13 Temperature 97 F L Temperature Source Temporal Pulse Rate 103 H 87 Respiratory Rate 22 H 21 H Blood Pressure 83/53 L 103/58 L Blood Pressure Mean 63 73 Pulse Ox 98 96 Oxygen Delivery Method Room Air Room Air Positive well nourished and well developed General Appearance ED: well developed HEENT Reports dry mucous membranes Mouth ED: Yes dry mucous membranes Mouth: dry mucous membranes Eyes EOMs intact bilaterally Neck no lymphadenopathy Chest Wall inspection of chest normal and palpation of chest normal Resp normal respiratory effort and clear to auscultation bilaterally Cardio regular rate and regular rhythm GI GI Narrative: Abdomen soft with no focal tenderness palpation. Hypoactive but present bowel sounds are noted. Extremity Extremity Narrative: Chronic venous stasis changes to the lower extremities. 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 IV fluids initiated. EKG obtained to evaluate for cardiac arrhythmia/ischemia. Labwork obtained to evaluate for leukocytosis, anemia, and electrolyte derangement. Urinalysis obtained to evaluate for infection/hematuria. Stool studies ordered. I was able to review prior records and [facility]. Patient was seen by her primary care physician 2 days ago. At that time her blood pressure was 136/83. Her BUN was 21 and her creatinine was 1.49. Her hemoglobin was 12.2. She had stool studies obtained that were negative for Shigella, Campylobacter, Shiga toxin, Salmonella, and C. difficile. She was given a prescription for Lomotil. Lab Data Attestation: I reviewed the patient's lab results. Labs: Laboratory Results - last 24 hr 08/14/22 08/14/22 08/14/22 18:18 18:18 19:38 WBC 10.2 RBC 5.00 Hgb 15.0 Hct 48.9 H MCV 97.8 MCH 30.0 MCHC 30.7 L RDW Std Deviation 42.5 RDW Coeff of Amirah 11.8 Plt Count 414 MPV 10.9 Immature Gran % (Auto) 2.000 H Neut % (Auto) 43.0 L Lymph % (Auto) 31.3 [place] % (Auto) 17.5 H Eos % (Auto) 4.9 Baso % (Auto) 1.3 H Absolute Neuts (auto) 4.4 Absolute Lymphs (auto) 3.19 Nucleated RBC % 0 Differential Comment SCANNED Sodium 137 Potassium 3.4 L Chloride 108 H Carbon Dioxide 16.0 L Anion Gap 13 BUN 28 H Creatinine 3.06 H Est GFR (MDRD) Af Amer 20 L Est GFR (MDRD) Non-Af 16 L BUN/Creatinine Ratio 9.2 L Glucose 146 H Calcium 8.5 Total Bilirubin 0.40 Direct Bilirubin 0.16 AST 10 L ALT 12 L Alkaline Phosphatase 112 Total Protein 7.2 Albumin 2.6 L Globulin 4.6 H Urine Color Yellow Urine Clarity Cloudy Urine pH 5.0 Ur Specific [place] 1.030 Urine Protein 100 H Urine Glucose (UA) 50 H Urine Ketones 5 H Urine Occult Blood 10 H Urine Nitrite Positive H Urine Bilirubin 3 H Urine Urobilinogen 1 H Ur Leukocyte Esterase 25 H Urine RBC 0-5 SEEN Urine WBC 0-5 SEEN Ur Squamous Epith Cells 0-5 SEEN Urine Bacteria 2+ Urine Mucus 0 SEEN Radiography Diagnostic Testing: Clinical Impression(s) from Imaging Studies Abdomen/Pelvis CT 08/14/22 19:07 IMPRESSION: Ileus. Probable left adrenal adenoma. Sensitivity limited without IV and oral contrast. Electronically Signed: Vladimir Parsons MD at 20:24 EDT , Treatment and Re-Evaluation :: CBC was normal white count at 10.2 with no left shift. Hemoglobin today is concentrated at 15. Chemistry studies reveal a BUN of 28 and a creatinine of 3.06. Her potassium is slightly low at 3.4. This is replaced IV. LFTs are unremarkable. Her glucose is 146. Urinalysis reveals positive nitrites with 2+ bacteria. 0-5 white cells are noted. CT scan of the abdomen pelvis without contrast obtained. This reveals evidence of an ileus but no obvious bowel wall thickening. EKG is sinus rhythm at 92 bpm with no acute ischemia. Her QTc is 484. In light of this she was given Phenergan for nausea. Test results are discussed with patient and family at bedside. Her urine will be sent for culture and she will be given a dose of Rocephin. She will require admission given her acute renal failure. Discharge Plan Triage Chief Complaint: Abd Pain ED Provider: Princess Mcgee Dx/Rx/DC Orders Clinical Impression: Acute renal failure, Gastroenteritis, Asymptomatic bacteriuria, Hypokalemia Prescriptions: No Action losartan 50 mg tablet 50 mg PO DAILY fluticasone propionate 50 mcg/actuation spray,suspension 2 spray NASAL DAILY PRN (Reason: Sinus Symptoms) Qty: 16 6RF albuterol sulfate [Ventolin HFA] 90 mcg/actuation HFA aerosol inhaler 2 puff inhalation Q4H PRN (Reason: shortness of breath or wheezing) Qty: 18 6RF albuterol sulfate 2.5 MG/3 ML solution for nebulization 2.5 mg inhalation Q6HWA.RT PRN (Reason: Asthma) Label Comments: ASTHMA acetaminophen [Tylenol] 325 mg Tablet 650 mg PO Q6H PRN PRN (Reason: Pain Score 1-10/Temp > 100.7 F) Qty: 0 0RF ascorbic acid (vitamin C) 500 mg Tablet 500 mg PO BIDCM Qty: 0 0RF ferrous sulfate [FeroSul] 325 mg (65 mg iron) Tablet 325 mg PO BIDCM Qty: 0 0RF omeprazole 40 mg Capsule,Delayed Release(Dr/Ec) 40 mg PO DAILY diclofenac sodium 1 % Gel 1 ea TOPICAL PRN PRN (Reason: Pain) lorazepam 1 mg Tablet 1 mg PO BID PRN PRN (Reason: Anxiety) Qty: 5 0RF acetaminophen [Tylenol] 325 mg Tablet 650 mg PO Q4H PRN PRN (Reason: Fever, pain 1-10/10) Qty: 0 0RF furosemide [Lasix] 40 mg tablet 40 mg PO DAILY Qty: 1 0RF Rx Instructions: start on 11/23/21 ondansetron HCl 4 mg tablet 4 mg PO PRN PRN (Reason: Nausea) Primary Care Provider: Silvia Tolbert Referrals: Silvia Tolbert MD [Primary Care Provider] - Disposition Disposition: Acute Care Hospital [facility]
[2022-08-14] MEDS: proMETHazine 25 MG/ML Syringe 12.5 MG IM (18:32)
[2022-08-14 18:34] LABS: Absolute Lymphocyte Count 3.19 X10^3/uL (0.83-4.51); Absolute Neutrophil Count 4.4 X10^3/uL (2.0-7.7); Basophil# 0.13 X10^3/uL; Basophil% 1.3 % (0-1); Differential Indicated SCAN CRITERIA MET; Eosinophils% 4.9 % (0-5); Hematocrit 48.9 % (37-47); Lymphocyte # 3.19 X10^3/ul (0.83-4.51); Lymphocyte % 31.3 % (19-41); Mean Corp Hgb Conc 30.7 g/dL (32-36); Mean Corpuscular Volume 97.8 fL (81-99); Mean Platelet Vol. 10.9 fl (6.2-12.0); Monocyte# 1.78 X10^3/uL; Monocyte% 17.5 % (0-10); NRBC Flagged by Analyzer 0 % (0-5); Neutrophil # 4.39 X10^3/uL (2.7-7.7); POSITIVE DIFFERENTIAL YES; POSITIVE MORPHOLOGY YES; Platelet Count 414 K/mm3 (150-450); RBC Distribution Width CV 11.8 % (11.6-14.6); RBC Distribution Width SD 42.5 fl (35.1-43.9); White Blood Count 10.2 K/mm3 (4.4-11.0)
[2022-08-14 18:51] LABS: AST(SGOT) 10 U/L (15-37); Alanine Aminotransfer ALT/SGPT 12 U/L (13-56); Albumin, Serum 2.6 g/dL (3.2-5.0); Alkaline Phosphatase 112 U/L (45-117); Anion Gap 13 (5-15); BUN 28 mg/dL (7-18); BUN/Creat Ratio 9.2 RATIO (10-20); Bilirubin, Direct 0.16 mg/dL (0.00-0.30); Calcium,Total 8.5 mg/dL (8.5-10.1); Chloride 108 mmol/L (98-107); Creatinine, Serum 3.06 mg/dL (0.55-1.02); EST Glomerular Filtration Rate 16 mL/min (>60); Est Glom Filt Rate - Afr Amer 20 mL/min (>60); Globulin 4.6 g/dL (2.2-4.2); Glucose 146 mg/dL (74-106); Potassium 3.4 mmol/L (3.5-5.1); Protein, Total 7.2 g/dL (6.4-8.2); Sodium Level 137 mmol/L (136-145)
[2022-08-14 19:00] LABS: Differential Comment SCANNED
--- NOTE | 2022-08-14 19:07 | CT_ITS ---
STUDY: CT ABDOMEN AND PELVIS WITHOUT CONTRAST REASON FOR EXAM: Female, 61 years old. diarrhea, renal failure RADIATION DOSAGE (If Supplied By Facility): CTDIvol = ( 24.18 ) mGy, DLP = ( 1159.72 ) mGycm TECHNIQUE: Transaxial images were obtained from the dome of the diaphragm to the symphysis pubis without oral contrast, and without intravenous contrast. Sagittal and coronal images were reconstructed. Individualized dose optimization techniques were used for this CT. COMPARISON: Abdominal ultrasound November 19, 2021. FINDINGS: The visualized lung bases are unremarkable. Cardiomegaly. Normal liver. Gallbladder not identified. Normal spleen. Normal pancreas. 2.5 cm left hypodense adrenal mass. Right adrenal appears normal. Normal right kidney. Normal left kidney. Normal visualized stomach. Multiple air-fluid levels in the small bowel. Normal colon. The appendix is visualized and appears normal. Normal abdominal aorta. Normal inferior vena cava. Normal retroperitoneum. Normal urinary bladder. Normal abdominal wall. Normal osseous structures. CT/Abdomen/Pelvis without Cont IMPRESSION: Ileus. Probable left adrenal adenoma. Sensitivity limited without IV and oral contrast. Electronically Signed: Vladimir Parsons MD at 20:24 EDT Reading Location ID and State: [facility] / [place] , Service support ,
[2022-08-14 19:13] VITALS: BP 103/58; PULSE 87; RESP 21; O2SAT 96
[2022-08-14 19:45] LABS: Mucous, Urine 0 SEEN /hpf (<or=2+)
[2022-08-14 19:55] LABS: Color, Urine Yellow (Yellow); Glucose, Dipstick 50 mg/dl (Normal); Ketone-Dipstick 5 mg/dl (Negative); Leukocyte Esterase-Dipstick 25 /ul (Negative); Nitrite-Dipstick Positive (Negative); Occult Blood-Urine 10 /ul (Negative); Protein-Dipstick 100 mg/dl (Negative); Urine Clarity Cloudy (Clear); Urine Urobilinogen 1 mg/dl (Normal)
[2022-08-14 20:05] LABS: Urine Bilirubin Dipstick 3 mg/dL (Negative)
[2022-08-14 20:07] LABS: Squamous Epithelial Cells - UA 0-5 SEEN /hpf (5-10)
[2022-08-14 20:08] LABS: Red Blood Cells-Urine 0-5 SEEN /hpf (0-5); White Blood Cells 0-5 SEEN /hpf (0-5)
[2022-08-14 20:10] LABS: Bacteria 2+ /hpf (None Seen)
[2022-08-14] MEDS: 0.9% Normal Saline 1,000 ML 150 ML IV (20:11)
[2022-08-14] MEDS: Potassium Chloride 10mEq/100mL 10 MEQ/100 ML IV.SOLN. 100 MEQ IV BOLUS ×4 (20:11→23:22)
[2022-08-14 20:44] VITALS: BMI 47.9
--- NOTE | 2022-08-14 20:49 | HP.PCM.HOS_ITS ---
HPI - General General Date of Admission: 08/14/22 Date of Service: 08/14/22 Chief Complaint: Diarrhea HPI Narrative MEGGAN ARITA, is a 61 F with significant history of obstructive sleep apnea on home CPAP; morbid obesity; hypertension and diabetes mellitus who presents emergency department with one week history of progressively worsening diarrhea. She was placed on Lomotil by nurse zaraer at her PCPs office but that did not really help with diarrhea. She took some Imodium and that gave her some mild relief from diarrhea. She thinks that her diarrhea is slowing down now. A day before presentation and on the day of presentation patient developed nausea and vomiting. Of note patient's lost more than 200 pounds on Trulicity. Trulicity was then switched to Ozempic. Ozempic was then switched to Mounjaro. Patient thinks that her symptoms are related to Mounjaro. Earlier in the course of taking mounjaro patient was constipated and she is scared from developing constipation again if placed on medicine to pam her diarrhea. She actually taking medicine to make her bowels move. At a point while on mounjaro she had to self-dug her stools out. She complains of irritation in between her thighs. [facility] Medical History Anemia Anxiety Asthma Chronic respiratory failure with hypoxia and hypercapnia CPAP (continuous positive airway pressure) dependence Hypertension Obesity Sleep apnea Type 2 diabetes mellitus Home Medications albuterol sulfate 2.5 mg/3 mL (0.083 %) solution for nebulization 2.5 mg inhalation Q6HWA.RT PRN Asthma 11/23/12 [History Last Taken 07/31/21 13:00] acetaminophen 325 mg tablet (Tylenol) 650 mg PO Q6H PRN PRN Pain Score 1-10/Temp > 100.7 F #0 tabs 08/15/21 [Rx Last Taken Unknown] ascorbic acid (vitamin C) 500 mg tablet 500 mg PO BIDCM #0 tabs 08/15/21 [Rx Last Taken Unknown] ferrous sulfate 325 mg (65 mg iron) tablet (FeroSul) 325 mg PO BIDCM #0 tabs 08/15/21 [Rx Last Taken Unknown] diclofenac sodium 1 % topical gel 1 ea topical PRN PRN Pain 11/18/21 [History Last Taken Unknown] omeprazole 40 mg capsule,delayed release 40 mg PO DAILY 11/18/21 [History Last Taken Unknown] acetaminophen 325 mg tablet (Tylenol) 650 mg PO Q4H PRN PRN Fever, pain 1-12/03 #0 tabs 11/20/21 [Rx Last Taken Unknown] furosemide 40 mg tablet (Lasix) 40 mg PO DAILY #1 TAB 11/20/21 [Rx Last Taken Unknown] lorazepam 1 mg tablet 1 mg PO BID PRN PRN Anxiety #5 tabs 11/20/21 [Rx Last Taken Unknown] albuterol sulfate 90 mcg/actuation aerosol inhaler (Ventolin HFA) 2 puff inhalation Q4H PRN shortness of breath or wheezing #18 grams 01/30/22 [Rx Last Taken Unknown] fluticasone propionate 50 mcg/actuation nasal spray,suspension 2 spray DAILY PRN Sinus Symptoms #16 grams 01/30/22 [Rx Last Taken Unknown] losartan 50 mg tablet 50 mg PO DAILY 01/30/22 [History Last Taken Unknown] ondansetron HCl 4 mg tablet 4 mg PO PRN PRN Nausea 08/14/22 [History Last Taken Unknown] Allergy/AdvReac Type Severity Reaction Status Date / Time codeine Allergy Nausea/Vom/ Verified 08/14/22 17:59 Diarrhea iodine Allergy Swelling Verified 08/14/22 17:59 latex Allergy Shortness Verified 08/14/22 17:59 of breath meloxicam Allergy Rash Verified 08/14/22 17:59 Penicillins Allergy Shortness Verified 08/14/22 17:59 of breath tositumomab Allergy NEEDS Verified 08/14/22 17:59 FOLLOW-UP hydrocodone bitartrate AdvReac Nausea/Vom/ Verified 08/14/22 17:59 [From Vicodin] Diarrhea prednisone AdvReac Other Verified 08/14/22 17:59 Family History Other Diabetes Heart disease Hypertension Surgical History History of cholecystectomy Previous section Social History Smoking Status: Never smoker substance use type: does not use ROS ROS Narrative Pertinent positives and pertinent negatives as noted in HPI. All other systems were reviewed and are negative Vital Signs Vital Signs Vital Signs: 08/14/22 17:59 08/14/22 19:13 Temperature 97 F L Temperature Source Temporal Pulse Rate 103 H 87 Respiratory Rate 22 H 21 H Blood Pressure 83/53 L 103/58 L Blood Pressure Mean 63 73 Pulse Ox 98 96 Oxygen Delivery Method Room Air Room Air Weight Weight: 143 kg Body Mass Index (BMI) 47.9 Physical Exam Narrative Physical exam: General: Morbid obesity. Head: Normocephalic, atraumatic, no tenderness Eyes: Vision is grossly intact. EOMI ENT, no trauma, moist mucous membranes, no rhinorrhea Neck: Nontender, No thyromegaly. CVS: Regular rate and rhythm. S1-S2 present. No murmur, gallop or rub. Respiratory : clear to auscultation bilaterally, chest wall nontender Abdomen: Soft, nontender, nondistended, normal bowel sounds, no masses : Deferred Back: Nontender, no CVA tenderness, no midline spinal tenderness, deformities, step-offs Extremities: Nontender full range of motion, no trauma Skin: Normal color, no trauma, abrasions Neuro: Alert, oriented, cranial nerves II through XII grossly intact. Psychiatry: Normal mood. Normal affect. Not depressed. Not anxious. Results Lab / Micro Data Result Diagrams: 08/14/22 18:18 08/14/22 18:18 Labs: Laboratory Results - last 24 hr 08/14/22 18:18: WBC 10.2, RBC 5.00, Hgb 15.0, Hct 48.9 H, MCV 97.8, MCH 30.0, MCHC 30.7 L, RDW Std Deviation 42.5, RDW Coeff of Amirah 11.8, Plt Count 414, MPV 10.9, Immature Gran % (Auto) 2.000 H, Neut % (Auto) 43.0 L, Lymph % (Auto) 31.3, Walker % (Auto) 17.5 H, Eos % (Auto) 4.9, Baso % (Auto) 1.3 H, Absolute Neuts (auto) 4.4, Absolute Lymphs (auto) 3.19, Nucleated RBC % 0, Differential Comment SCANNED 08/14/22 18:18: Sodium 137, Potassium 3.4 L, Chloride 108 H, Carbon Dioxide 16.0 L, Anion Gap 13, BUN 28 H, Creatinine 3.06 H, Est GFR (MDRD) Af Amer 20 L, Est GFR (MDRD) Non-Af 16 L, BUN/Creatinine Ratio 9.2 L, Glucose 146 H, Calcium 8.5, Total Bilirubin 0.40, Direct Bilirubin 0.16, AST 10 L, ALT 12 L, Alkaline Phosphatase 112, Total Protein 7.2, Albumin 2.6 L, Globulin 4.6 H 08/14/22 19:38: Urine Color Yellow, Urine Clarity Cloudy, Urine pH 5.0, Ur Specific [place] 1.030, Urine Protein 100 H, Urine Glucose (UA) 50 H, Urine Ketones 5 H, Urine Occult Blood 10 H, Urine Nitrite Positive H, Urine Bilirubin 3 H, Urine Urobilinogen 1 H, Ur Leukocyte Esterase 25 H, Urine RBC 0-5 SEEN, Urine WBC 0-5 SEEN, Ur Squamous Epith Cells 0-5 SEEN, Urine Bacteria 2+, Urine Mucus 0 SEEN Micro: Microbiology 08/14/22 19:38 Stool Stool Lactoferrin - Final Radiology Impression Abdomen/Pelvis CT 08/14/22 19:07 IMPRESSION: Ileus. Probable left adrenal adenoma. Sensitivity limited without IV and oral contrast. 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 Gentle IV fluids ordered. Home medication including Lasix, losartan held. Trend BMP. Diarrhea/ileus Impression of abdomen/pelvis CT: Ileus. Probable left adrenal adenoma. Sensitivity was limited as there was no IV and oral contrast. Abdomen and pelvis CT was visualized independent interpreted. Hospitalist agree with radiologist interpretation. Stool studies ordered emergency department follow-up. Stool studies ordered at PCPs office unremarkable. As needed Imodium ordered. Calmoseptine for irritation ordered. Probable adrenal adenoma PET/CT as above A.m. cortisol and catecholamines ordered. Hypokalemia Potassium 3.4. Likely secondary to diarrhea. Received placement at the emergency department. Trend. Check magnesium. History of hypertension Blood pressures are soft. Lasix and losartan held secondary LORNE. Trend blood pressures. Gentle IV hydration. Asymptomatic bacteriuria Patient with abnormal urinalysis at the emergency department. Urine pyuria is normal. Received cefazolin x1 dose in the emergency department and urine culture was ordered. Follow urine culture. History of diabetes mellitus Blood glucose is stable. Accu-Chek QA CHS ordered. Morbid Obesity : BMI: 50.8 kg/m?. Complicates care. Has been on multiple diabetic medications that also helps lose weight. Patient to continue lifestyle modification and continue obesity management with PCP. DVT prophylaxis: Lovenox ordered. Charges/Coding Visit Charges Inpatient E&M: 43071 Init Hosp L3
[2022-08-14] MEDS: Ceftriaxone 1 GM/50 ML BAG IV (21:08)
[2022-08-14 22:04] VITALS: BP 115/52; PULSE 76; RESP 21; TEMP 36.4; O2SAT 95
[2022-08-14 22:17] VITALS: BMI 50.8
[2022-08-14 22:28] VITALS: BP 102/51; PULSE 91; RESP 18; TEMP 36.7; O2SAT 94
[2022-08-14] MEDS: 0.9% Normal Saline 1,000 ML 125 ML IV (22:44)
[2022-08-14] MEDS: Enoxaparin 40 MG/0.4 ML Syringe SC (22:45)
[2022-08-14] MEDS: Acetaminophen 325 MG Tablet 650 MG PO (23:41)
[2022-08-15 04:30] VITALS: BP 130/93; PULSE 84; RESP 18; TEMP 36.6; O2SAT 97
[2022-08-15] MEDS: 0.9% Normal Saline 1,000 ML 125 ML IV ×3 (05:42→21:49)
[2022-08-15 06:24] LABS: Absolute Lymphocyte Count 3.91 X10^3/uL (0.83-4.51); Absolute Neutrophil Count 5.2 X10^3/uL (2.0-7.7); Basophil% 0.8 % (0-1); Eosinophil# 1.06 X10^3/uL; Eosinophils% 8.3 % (0-5); Hematocrit 42.2 % (37-47); Hemoglobin 13.2 g/dL (12.0-15.0); Lymphocyte # 3.91 X10^3/ul (0.83-4.51); Lymphocyte % 30.5 % (19-41); Mean Corp Hgb Conc 31.3 g/dL (32-36); Mean Corpuscular Hgb 30.3 pg (27.0-32.0); Mean Corpuscular Volume 96.8 fL (81-99); Monocyte# 2.46 X10^3/uL; Monocyte% 19.2 % (0-10); NRBC Flagged by Analyzer 0 % (0-5); Neutrophil # 5.18 X10^3/uL (2.7-7.7); Neutrophil % 40.2 % (47-70); POSITIVE DIFFERENTIAL YES; POSITIVE MORPHOLOGY YES; Platelet Count 341 K/mm3 (150-450); RBC Distribution Width CV 11.8 % (11.6-14.6); RBC Distribution Width SD 42.4 fl (35.1-43.9); Red Blood Count 4.36 M/mm3 (4.2-5.4); White Blood Count 12.8 K/mm3 (4.4-11.0)
[2022-08-15 06:50] LABS: Differential Indicated SCAN CRITERIA MET
[2022-08-15 06:56] LABS: Bedside Glucose 93 mg/dL (74-106)
[2022-08-15 07:02] LABS: Differential Comment SCANNED
[2022-08-15 07:12] LABS: Anion Gap 8 (5-15); BUN 32 mg/dL (7-18); BUN/Creat Ratio 8.9 RATIO (10-20); Calcium,Total 7.7 mg/dL (8.5-10.1); Chloride 113 mmol/L (98-107); Creatinine, Serum 3.58 mg/dL (0.55-1.02); EST Glomerular Filtration Rate 14 mL/min (>60); Est Glom Filt Rate - Afr Amer 17 mL/min (>60); Estimated Creatinine Clearance 16.44 ml/min; Glucose 91 mg/dL (74-106); Magnesium 1.3 mg/dL (1.6-2.6); Potassium 3.7 mmol/L (3.5-5.1); Sodium Level 139 mmol/L (136-145); Thyroid Stim Hormone (TSH) 3.01 uIU/mL (0.358-3.74)
[2022-08-15 07:16] VITALS: O2SAT 94
--- NOTE | 2022-08-15 07:48 | PN.HOSP_ITS ---
Reason for Visit Reason for Visit: Diagnoses Hypokalemia (08/14/22) Noninfective gastroenteritis and colitis, unspecified (08/14/22) Acute kidney failure, unspecified (08/14/22) Bacteriuria (08/14/22) Personal history of other endocrine, nutritional and metabolic disease (08/14/22) Subjective Subjective Reports feeling generally unwell today, has had suboptimal urine output, has had more diarrhea Objective Data Objective Data Vital Signs: Vital Signs Temp Pulse Resp BP Pulse Ox O2 Del Method FiO2 97.9 F 84 18 130/93 H 94 CPAP 21 08/15/22 04:30 08/15/22 04:30 08/15/22 04:30 08/15/22 04:30 08/15/22 07:16 08/15/22 07:16 08/15/22 07:16 Oxygen Delivery Method CPAP Weight: 151.5 kg Body Mass Index (BMI) 50.8 Intake & Output: Intake and Output for Last 24 Hours 08/13/22 08/14/22 08/15/22 23:59 23:59 23:59 Intake Total 1252.5 / 1252.5 970.83 / 970.83 Balance 1252.5 / 1252.5 970.83 / 970.83 Lab / Micro Data Result Diagrams: 08/15/22 05:55 08/15/22 12:05 Labs: Laboratory Results - last 24 hr 08/14/22 18:18: WBC 10.2, RBC 5.00, Hgb 15.0, Hct 48.9 H, MCV 97.8, MCH 30.0, MCHC 30.7 L, RDW Std Deviation 42.5, RDW Coeff of Amirah 11.8, Plt Count 414, MPV 10.9, Immature Gran % (Auto) 2.000 H, Neut % (Auto) 43.0 L, Lymph % (Auto) 31.3, [place] % (Auto) 17.5 H, Eos % (Auto) 4.9, Baso % (Auto) 1.3 H, Absolute Neuts (auto) 4.4, Absolute Lymphs (auto) 3.19, Nucleated RBC % 0, Differential Comment SCANNED 08/14/22 18:18: Sodium 137, Potassium 3.4 L, Chloride 108 H, Carbon Dioxide 16.0 L, Anion Gap 13, BUN 28 H, Creatinine 3.06 H, Est GFR (MDRD) Af Amer 20 L, Est GFR (MDRD) Non-Af 16 L, BUN/Creatinine Ratio 9.2 L, Glucose 146 H, Calcium 8.5, Total Bilirubin 0.40, Direct Bilirubin 0.16, AST 10 L, ALT 12 L, Alkaline Phosphatase 112, Total Protein 7.2, Albumin 2.6 L, Globulin 4.6 H 08/14/22 19:38: Urine Color Yellow, Urine Clarity Cloudy, Urine pH 5.0, Ur Specific [place] 1.030, Urine Protein 100 H, Urine Glucose (UA) 50 H, Urine Ketones 5 H, Urine Occult Blood 10 H, Urine Nitrite Positive H, Urine Bilirubin 3 H, Urine Urobilinogen 1 H, Ur Leukocyte Esterase 25 H, Urine RBC 0-5 SEEN, Urine WBC 0-5 SEEN, Ur Squamous Epith Cells 0-5 SEEN, Urine Bacteria 2+, Urine Mucus 0 SEEN 08/15/22 05:55: WBC 12.8 H, RBC 4.36, Hgb 13.2, Hct 42.2, MCV 96.8, MCH 30.3, MCHC 31.3 L, RDW Std Deviation 42.4, RDW Coeff of Amirah 11.8, Plt Count 341, MPV 11.0, Immature Gran % (Auto) 1.000 H, Neut % (Auto) 40.2 L, Lymph % (Auto) 30.5, [place] % (Auto) 19.2 H, Eos % (Auto) 8.3 H, Baso % (Auto) 0.8, Absolute Neuts (auto) 5.2, Absolute Lymphs (auto) 3.91, Nucleated RBC % 0, Differential Comment SCANNED, Diff Path Review May foll 08/15/22 05:55: Sodium 139, Potassium 3.7, Chloride 113 H, Carbon Dioxide 18.0 L , Anion Gap 8, BUN 32 H, Creatinine 3.58 H, Estim Creat Clear Calc 16.44, Est GFR (MDRD) Af Amer 17 L, Est GFR (MDRD) Non-Af 14 L, BUN/Creatinine Ratio 8.9 L, Glucose 91, Calcium 7.7 L, Magnesium 1.3 L, TSH 3.01 08/15/22 06:34: POC Glucose 93 Micro: Microbiology 06/21/23 19:38 Stool Stool Lactoferrin - Final 08/14/22 19:38 Stool Enteric Bacteriology - Final 08/14/22 19:38 Stool C. difficile DNA Amplification - Final Radiography Diagnostic Testing: Radiology Impression Abdomen/Pelvis CT 08/14/22 19:07 IMPRESSION: Ileus. Probable left adrenal adenoma. Sensitivity limited without IV and oral contrast. Electronically Signed: Vladimir Parsons MD at 20:24 EDT Reading Location ID and State: [address] [place] [address] , Service support , Physical Exam Narrative General: Alert, oriented, no apparent distress, obese HEENT: Atraumatic, normocephalic Eyes: Anicteric, normal conjunctiva, extraocular movements grossly intact Neck: Supple Respiratory: Somewhat decreased at the bases but this seems to be secondary to body habitus, normal respiratory effort Cardiovascular: Regular rate and rhythm GI: Soft, nontender, nondistended Extremities: No significant edema Musculoskeletal: Moving all extremities Neuro: No overt focal neurological deficits Skin: No rashes appreciated Psych: Cooperative Assessment & Plan Assessment/Plan (1) Gastroenteritis: (2) Acute renal failure: (3) History of diabetes mellitus: (4) Obesity hypoventilation syndrome: PLAN: Plan #Diarrhea/ileus -CT in ED with ileus, probable left adrenal adenoma but sensitivity limited with no IV and oral contrast -Enteric pathogen and C. difficile negative, does have positive fecal WBC, will order fecal calprotectin, ova and parasites pending -Being hydrated -Replace electrolytes -TSH 3.01 -Cortisol and catecholamines ordered due to adrenal incidentaloma #LORNE on CKDIIIb/none anion gap metabolic acidosis -CKD likely secondary to? diabetes nephropathy and hypertensive nephrosclerosis -Review of community records show that on 08/12/2022 creatinine was 1.49. -Gentle IV fluids ordered.? Home medication including Lasix, losartan held. -08/15: Kidney function worsened today, urine studies and renal ultrasound ordered, urine study with FE urea of 4.24 the patient still with poor urine output despite receiving hydration though sometimes when she has diarrhea she is not sure if she is urinating or not, kidney function continues to worsen despite current measures, patient down for renal ultrasound at present, will place Thrasher to better monitor I's and O's to help address underlying etiology, nephrology consulted #Leukocytosis -White blood cell count went from 10.2 up to 12.8 with unclear significance, where bands were noted on the differential path review and patient additionally has a monocytosis, BP also had downtrended this a.m., given patient's significant worsening and CT scan of abdomen nonspecific due to lack of oral or IV contrast because of kidneys, will order inflammatory markers, blood cultures, and start on empiric Merrem pending culture results #Type 2 diabetes mellitus -Glucose checks and sliding scale insulin #HONEY and obesity hypoventilation syndrome on cpap -Continue CPAP #Morbid obesity -BMI 50.8 kg/m? -Complicates treatment, prognosis, outcomes -Recommend weight loss and lifestyle changes #Probable adrenal adenoma -A.m. cortisol and catecholamines ordered #Asymptomatic bacteriuria -Patient with abnormal urinalysis at the emergency department.? -Urine pyuria is normal.? -Received rocephin x1 dose in the emergency department and urine culture was ordered.? -Follow urine culture. #DVT ppx: Lovenox subcu Lisa Mendoza MD Time spent in the patient's overall evaluation,decision-making process, review of diagnostic data, adjustment of management, discussion with other providers, nursing nursing and ancillary staff involved in patient's care documentation, 39 minutes Charges/Coding Visit Charges Inpatient E&M: 78588 [facility] L3
--- NOTE | 2022-08-15 07:54 | US_ITS ---
STUDY: RENAL ULTRASOUND - COMPLETE REASON FOR EXAM: Female, 61 years old. worsening kidney fxn TECHNIQUE: Ultrasound evaluation of the kidneys was performed with real-time and static yang-scale imaging. COMPARISON: November 19, 2021 FINDINGS: RIGHT KIDNEY: Normal location of the right kidney, which is normal in size. The right kidney measures 11.9 cm. There is a normal cortex of the right kidney. The renal cortex measures 1.7 cm. There is no right renal mass or cyst. There are no right renal calculi. There is no right hydronephrosis. DISTAL RIGHT URETER: There is non-visualization of the distal right ureter. There is no demonstrated right ureterovesical junction calculus. There is a visualized right ureteral jet. LEFT KIDNEY: Normal location of the left kidney, which is normal in size. The left kidney measures 10.8 cm. There is a normal cortex of the left kidney. The renal cortex measures 1.8 cm. There is no left renal mass or cyst. There are no left renal calculi. There is no left hydronephrosis. DISTAL LEFT URETER: There is non-visualization of the distal left ureter. There is no demonstrated left ureterovesical junction calculus. There is a visualized left ureteral jet. Aorta not visualized. BLADDER: Decompressed. US/Kidney and Bladder IMPRESSION: Normal ultrasound of the kidneys and urinary bladder. Electronically Signed: Vladimir Parsons MD at 21:42 EDT ,
[2022-08-15] MEDS: Pantoprazole Sodium 40 MG Tablet PO (08:25)
[2022-08-15] MEDS: Menthol/Lanolin/Calamine/Znox 113 GM Tube 1 APPLIC TOPICAL ×4 (08:26→21:49)
[2022-08-15] MEDS: Ferrous Sulfate 325 MG Tablet PO ×2 (08:26→16:48)
[2022-08-15] MEDS: Enoxaparin 40 MG/0.4 ML Syringe SC ×2 (08:26→21:52)
[2022-08-15 08:45] VITALS: BP 96/63; PULSE 89; RESP 18; TEMP 36.3; O2SAT 96
[2022-08-15] MEDS: Magnesium Sulfate 4gm/100mL 4 GM/100 ML IV.SOLN. IV (09:19)
[2022-08-15 11:42] LABS: Bedside Glucose 88 mg/dL (74-106)
--- NOTE | 2022-08-15 11:45 | CASEMGMT ---
Addendum entered and electronically signed by Jasmin Neal RN 08/15/22 15:38: Transportation: pt's son provides transportation as needed. Pt states she is awaiting cataract surgery to be able to drive again. Home O2/CPAP provider is [facility]. Pt states she did work with therapy and states she feels it went well as she was able to get up and sit in the chair. Pt is back in bed at this time. Return call received from Vinicio from [facility] who states pt was discharged from their services on 06/12/22. Vinicio states they would be willing/able to accept pt back for services if needed. Buddy Neal RN CM Original Note: SHELBY MENDEZ Discharge Planning Assessment: Face to Face with patient for initial transition planning/care coordination assessment.?SHELBY MENDEZ introduced self and role at [facility], pt alert, answerin questions appropriately, voices understanding, and is agreeable to participating in assessment.? Care providers, pharmacy,?and demographics verified. ? Admitting dx: diarrhea/ileus, LORNE PCP: Sum[facility] Specialists:none Preferred Pharmacy: [facility] Insurance: [employer] Prescription Benefit:?yes Living Will/HPOA: pt states she has and her son Ross is her HPOA. Encouraged pt to have the documents brought in for inclusion in her EMR. Pt expressed understanding LNOK: sons Ross and Meek Living Arrangements: Pt lives with her significant other in a two story home with a first floor set-up and a ramp entrance. Pt states she is independent with ADLs and S.O. assists with IADLs. Transportation: DME: walker, wheelchair (manual and electric), hospital bed, shower chair, hand held shower, grab bars, BSC, pulse ox, lift chair, CPAP with O2 at 2l/min bled in at hs only. glucometer and supplies. SNF: Pt states she was at [facility] for a year in 2021. HHC: pt states she is active with [facility] for SN and PT/OT services. Call placed to their intake team to confirm. Voicemail left with return contact information. Plan: Pt states her goal is to return home and became tearful stating she did not want to return to the long-term. Will monitor pt's progress in therapy and assist with further discharge disposition determination. Buddy Neal RN CM
[2022-08-15 12:14] LABS: Osmolality, Urine 311 mOsm/KG
[2022-08-15 12:21] LABS: Urea Nitrogen, Urine 175 mg/dL (NO RANGE EST.); Urine Chloride 25 mmol/L (Not Establ.); Urine Sodium 6 mmol/L (Not Establ.)
[2022-08-15 12:49] LABS: Anion Gap 5 (5-15); BUN 35 mg/dL (7-18); BUN/Creat Ratio 9.4 RATIO (10-20); Calcium,Total 7.9 mg/dL (8.5-10.1); Chloride 115 mmol/L (98-107); Creatinine, Serum 3.71 mg/dL (0.55-1.02); EST Glomerular Filtration Rate 13 mL/min (>60); Est Glom Filt Rate - Afr Amer 16 mL/min (>60); Estimated Creatinine Clearance 15.86 ml/min; Glucose 91 mg/dL (74-106); Potassium 3.8 mmol/L (3.5-5.1); Sodium Level 139 mmol/L (136-145)
[2022-08-15 13:23] LABS: Pathologist Review Reviewed
--- NOTE | 2022-08-15 14:27 | CHAPLAIN ---
Type of Pastoral Visit _x__ Initial Visit ___ Follow-up Visit ___ On-call Visit ___ General Patient Visit ___ Spiritual Assessment ___ Family Conference ___ Bereavement ___ Rapid Response ___ Code Blue ___ Other (describe below) Pastoral Care Referral From _x__ Patient ___ Family ___ Nurse ___ Physician ___ Loom Setter ___ Middle School Pe Teacher ___ Other (describe below) Sacrament/Intervention ___ Active listening ___ Anointing ___ Episcopalian ___ Bereavement ___ Communion ___ Berkley exploration ___ ___ Life review _x__ Prayer ___ Reconciliation ___ Sacrament of Sick _x__ Supportive presence ___ Wedding ___ Other (describe below) Pastoral Comments patient has family members in room and calls coming in on her phone as evidence of support; pt does welcome presence and prayer; pt concern is about bathroom issues and admits to that as a worry; pt has lost a significant amount of weight is commended for her efforts by this professor of physical education
[2022-08-15 14:40] LABS: Procalcitonin 0.47 ng/mL (0.00-0.09)
[2022-08-15 14:45] VITALS: BP 100/46; PULSE 92; RESP 18; TEMP 36.6; O2SAT 96
[2022-08-15 14:46] LABS: Erythrocyte Sedimentation Rate 20 mm/hr (0-30)
--- NOTE | 2022-08-15 14:57 | PCM.CONS.R ---
Assessment & Plan Assessment/Plan (1) Acute renal failure: (2) Gastroenteritis: (3) Hypokalemia: (4) History of diabetes mellitus: PLAN: Plan This is a 61 F with past history significant for diabetes mellitus type 2, hypertension, obesity, HONEY on home CPAP who presented to the emergency room 08/14 with complaints of fatigue and diarrhea after starting Mounjaro. Lab work in the emergency room showed creatinine 3.06 mg/dL, potassium 3.4. Patient was admitted for gastroenteritis and LORNE. Nephrology consulted for acute kidney injury. Patient is known to our group from hospital consultation in October 2021 for LORNE and hyperkalemia (K+ 8.8). Patient has never required any FORGING DIE SINKER. To note patient has lost at least 150 pounds on Trulicity. Trulicity was then switched to Ozempic and Ozempic switched to Mounjaro. Since being on Mounjaro patient has had significant diarrhea for well over a week. LORNE likely secondary to significant intravascular volume depletion with concurrent ARB, diuretic and NSAID use. Also to note patient hypotensive on admission which could also be contributing to LORNE leading to ATN. Serum creatinine 3.06 mg/dL on admission, today her creatinine is 3.71 mg/dL. At this time there is no acute indication for FORGING DIE SINKER, no significant hyperkalemia or acidosis. Patient is hypovolemic and recommend to continue with IV fluids as ordered. She has also received fluid boluses. Recommend continue holding losartan and Lasix. Recommend no NSAIDs. Renal ultrasound pending. Patient to have Thrasher catheter placed today. UA on admission positive nitrite, leukocyte Estrace, 10 occult blood, urine protein 100. Urine sodium was 6. She is on meropenem. Patient quite possibly has CKD stage III. November 20, 2021 creatinine 1.77 mg/dL, 08/12/2022 creatinine 1.49 mg/dL. We will check urine protein creatinine ratio. Baseline creatinine is unknown. We will follow serum creatinine trajectory. Discussed nephrology plan with patient, her boyfriend and son who are at bedside. Discussed hopefully with volume expansion, avoiding nephrotoxic agents and improving blood pressures hopefully renal function improves but also aware should renal function continue to worsen patient may need FORGING DIE SINKER. Questions were answered. Labs ordered for a.m. Hypokalemia likely secondary to diarrhea and poor oral intake, resolved. Further orders forthcoming as hospitalization evolves, thank you for allowing us to participate in the care of Ms. Arita. HPI Consult Data Date of Consult: 08/15/22 HPI Narrative HPI Narrative: MEGGAN ARITA, is a 61 F with past history significant for diabetes mellitus type 2, hypertension, obesity, HONEY on home CPAP who presented to the emergency room 08/14 with complaints of fatigue and diarrhea. Lab work in the emergency room showed creatinine 3.06 mg/dL, potassium 3.4. Patient was admitted for gastroenteritis and LORNE. Nephrology consulted for acute kidney injury. Patient is known to our group from consultation back in October 2021 for LORNE and hyperkalemia. Back in October 2021 LORNE was secondary to UTI, poor oral intake with concurrent use of Lasix, Bactrim and NSAIDs. Hyperkalemia secondary to LORNE and Bactrim with potassium of 8.8, with EKG changes including wide-complex QRS. Potassium levels improved with medical treatment which included calcium, insulin, dextrose and IV fluids. Patient never required any FORGING DIE SINKER. Today patient reports that she has had well over 100 pound weight loss since October 2021. She had been on Trulicity, then switched to Ozempic, now recently on Mounjaro. Patient reports since starting Mounjaro she has had daily diarrhea with nausea and poor oral intake for at least over 8 days. Patient reports despite feeling unwell she continued to take her medications which included Lasix and losartan. Patient also reports she has been taking ibuprofen daily for generalized pain. Patient denies noting any recent hematuria. No rash. No arthralgias. [facility] Medical History Anemia Anxiety Asthma Chronic respiratory failure with hypoxia and hypercapnia CPAP (continuous positive airway pressure) dependence Hypertension Obesity Sleep apnea Type 2 diabetes mellitus Home Medications albuterol sulfate 2.5 mg/3 mL (0.083 %) solution for nebulization 2.5 mg inhalation Q6HWA.RT PRN Asthma 11/23/12 [History Last Taken 07/31/21 13:00] acetaminophen 325 mg tablet (Tylenol) 650 mg PO Q6H PRN PRN Pain Score 1-10/Temp > 100.7 F #0 tabs 08/15/21 [Rx Last Taken Unknown] ascorbic acid (vitamin C) 500 mg tablet 500 mg PO BIDCM #0 tabs 08/15/21 [Rx Last Taken Unknown] ferrous sulfate 325 mg (65 mg iron) tablet (FeroSul) 325 mg PO BIDCM #0 tabs 08/15/21 [Rx Last Taken Unknown] diclofenac sodium 1 % topical gel 1 ea topical PRN PRN Pain 11/18/21 [History Last Taken Unknown] omeprazole 40 mg capsule,delayed release 40 mg PO DAILY 11/18/21 [History Last Taken Unknown] acetaminophen 325 mg tablet (Tylenol) 650 mg PO Q4H PRN PRN Fever, pain 1-1010 #0 tabs 11/20/21 [Rx Last Taken Unknown] furosemide 40 mg tablet (Lasix) 40 mg PO DAILY #1 TAB 11/20/21 [Rx Last Taken Unknown] lorazepam 1 mg tablet 1 mg PO BID PRN PRN Anxiety #5 tabs 11/20/21 [Rx Last Taken Unknown] albuterol sulfate 90 mcg/actuation aerosol inhaler (Ventolin HFA) 2 puff inhalation Q4H PRN shortness of breath or wheezing #18 grams 01/30/22 [Rx Last Taken Unknown] fluticasone propionate 50 mcg/actuation nasal spray,suspension 2 spray DAILY PRN Sinus Symptoms #16 grams 01/30/22 [Rx Last Taken Unknown] losartan 50 mg tablet 50 mg PO DAILY 01/30/22 [History Last Taken Unknown] ondansetron HCl 4 mg tablet 4 mg PO PRN PRN Nausea 08/14/22 [History Last Taken Unknown] Allergy/AdvReac Type Severity Reaction Status Date / Time codeine Allergy Nausea/Vom/ Verified 08/14/22 17:59 Diarrhea iodine Allergy Swelling Verified 08/14/22 17:59 latex Allergy Shortness Verified 08/14/22 17:59 of breath meloxicam Allergy Rash Verified 08/14/22 17:59 Penicillins Allergy Shortness Verified 08/14/22 17:59 of breath tositumomab Allergy NEEDS Verified 08/14/22 17:59 FOLLOW-UP hydrocodone bitartrate AdvReac Nausea/Vom/ Verified 08/14/22 17:59 [From Vicodin] Diarrhea prednisone AdvReac Other Verified 08/14/22 17:59 Family History Other Diabetes Heart disease Hypertension Surgical History History of cholecystectomy Previous section Social History Smoking Status: Never smoker substance use type: does not use ROS ROS Narrative As in HPI and past medical history Physical Exam Narrative Alert and oriented x3, no apparent distress S1, S2, RRR Lung sounds clear anteriorly and posteriorly. No wheezes rhonchi rales noted Abdomen soft, nontender, positive bowel sounds No edema Lab / Micro Data Result Diagrams: 08/15/22 05:55 08/15/22 12:05 Labs: Laboratory Results - last 24 hr 08/14/22 18:18: WBC 10.2, RBC 5.00, Hgb 15.0, Hct 48.9 H, MCV 97.8, MCH 30.0, MCHC 30.7 L, RDW Std Deviation 42.5, RDW Coeff of Amirah 11.8, Plt Count 414, MPV 10.9, Immature Gran % (Auto) 2.000 H, Neut % (Auto) 43.0 L, Lymph % (Auto) 31.3, [place] % (Auto) 17.5 H, Eos % (Auto) 4.9, Baso % (Auto) 1.3 H, Absolute Neuts (auto) 4.4, Absolute Lymphs (auto) 3.19, Nucleated RBC % 0, Differential Comment SCANNED 08/14/22 18:18: Sodium 137, Potassium 3.4 L, Chloride 108 H, Carbon Dioxide 16.0 L, Anion Gap 13, BUN 28 H, Creatinine 3.06 H, Est GFR (MDRD) Af Amer 20 L, Est GFR (MDRD) Non-Af 16 L, BUN/Creatinine Ratio 9.2 L, Glucose 146 H, Calcium 8.5, Total Bilirubin 0.40, Direct Bilirubin 0.16, AST 10 L, ALT 12 L, Alkaline Phosphatase 112, Total Protein 7.2, Albumin 2.6 L, Globulin 4.6 H 08/14/22 19:38: Urine Color Yellow, Urine Clarity Cloudy, Urine pH 5.0, Ur Specific Carver 1.030, Urine Protein 100 H, Urine Glucose (UA) 50 H, Urine Ketones 5 H, Urine Occult Blood 10 H, Urine Nitrite Positive H, Urine Bilirubin 3 H, Urine Urobilinogen 1 H, Ur Leukocyte Esterase 25 H, Urine RBC 0-5 SEEN, Urine WBC 0-5 SEEN, Ur Squamous Epith Cells 0-5 SEEN, Urine Bacteria 2+, Urine Mucus 0 SEEN 08/15/22 05:55: WBC 12.8 H, RBC 4.36, Hgb 13.2, Hct 42.2, MCV 96.8, MCH 30.3, MCHC 31.3 L, RDW Std Deviation 42.4, RDW Coeff of Amirah 11.8, Plt Count 341, MPV 11.0, Immature Gran % (Auto) 1.000 H, Neut % (Auto) 40.2 L, Lymph % (Auto) 30.5, [place] % (Auto) 19.2 H, Eos % (Auto) 8.3 H, Baso % (Auto) 0.8, Absolute Neuts (auto) 5.2, Absolute Lymphs (auto) 3.91, Nucleated RBC % 0, Differential Comment SCANNED, Diff Path Review Reviewed 08/15/22 05:55: Sodium 139, Potassium 3.7, Chloride 113 H, Carbon Dioxide 18.0 L, Anion Gap 8, BUN 32 H, Creatinine 3.58 H, Estim Creat Clear Calc 16.44, Est GFR (MDRD) Af Amer 17 L, Est GFR (MDRD) Non-Af 14 L, BUN/Creatinine Ratio 8.9 L, Glucose 91, Calcium 7.7 L, Magnesium 1.3 L, TSH 3.01 08/15/22 05:55: Cortisol 19.40 08/15/22 05:55: ESR 20 08/15/22 05:55: Procalcitonin 0.47 H 08/15/22 06:34: POC Glucose 93 08/15/22 11:22: POC Glucose 88 08/15/22 11:37: Ur Random Sodium 6, Urine Creatinine 437.00, Urine Potassium 23.0, Urine Chloride 25, Urine Urea Nitrogen 175 08/15/22 11:37: Urine Osmolality 311 08/15/22 12:05: Sodium 139, Potassium 3.8, Chloride 115 H, Carbon Dioxide 19.0 L, Anion Gap 5, BUN 35 H, Creatinine 3.71 H, Estim Creat Clear Calc 15.86, Est GFR (MDRD) Af Amer 16 L, Est GFR (MDRD) Non-Af 13 L, BUN/Creatinine Ratio 9.4 L, Glucose 91, Calcium 7.9 L 08/15/22 12:05: C-React Prot Ext Range 67.20 H Micro: Microbiology 08/14/22 19:38 Urine, Catheterized Urine Culture - Preliminary GNR lactose sap ppm consultant Gram negative haven 08/14/22 19:38 Stool Stool Lactoferrin - Final 08/14/22 19:38 Stool Enteric Bacteriology - Final 08/14/22 19:38 Stool C. difficile DNA Amplification - Final Radiology Impression Abdomen/Pelvis CT 08/14/22 19:07 IMPRESSION: Ileus. Probable left adrenal adenoma. Sensitivity limited without IV and oral contrast. Electronically Signed: Vladimir Parsons MD at 20:24 EDT ,
[2022-08-15] MEDS: LORazepam 1 MG Tablet PO (15:26)
[2022-08-15 16:59] LABS: Bedside Glucose 77 mg/dL (74-106)
[2022-08-15 17:25] LABS: Protein, Urine (Random) 120.7 mg/dL (<11.9); Protein:Creat Ratio 412 mg/g CRE (0-200)
[2022-08-15] MEDS: Loperamide 2 MG Capsule PO (20:52)
[2022-08-15 21:50] VITALS: BP 114/45; PULSE 93; RESP 18; TEMP 37.3; O2SAT 95
[2022-08-15 22:13] LABS: Bedside Glucose 81 mg/dL (74-106)
[2022-08-16] MEDS: Loperamide 2 MG Capsule PO ×4 (00:49→18:25)
[2022-08-16 05:00] VITALS: BP 117/52; PULSE 82; RESP 18; TEMP 36.8; O2SAT 95
[2022-08-16] MEDS: 0.9% Normal Saline 1,000 ML 125 ML IV ×3 (05:18→18:19)
[2022-08-16 06:01] LABS: Absolute Lymphocyte Count 2.86 X10^3/uL (0.83-4.51); Absolute Neutrophil Count 5.4 X10^3/uL (2.0-7.7); Basophil# 0.09 X10^3/uL; Basophil% 0.8 % (0-1); Eosinophil# 0.75 X10^3/uL; Eosinophils% 6.6 % (0-5); Hemoglobin 12.3 g/dL (12.0-15.0); Lymphocyte # 2.86 X10^3/ul (0.83-4.51); Lymphocyte % 25.1 % (19-41); Mean Corp Hgb Conc 31.5 g/dL (32-36); Mean Corpuscular Hgb 30.3 pg (27.0-32.0); Mean Corpuscular Volume 96.1 fL (81-99); Mean Platelet Vol. 10.7 fl (6.2-12.0); Monocyte# 2.08 X10^3/uL; Monocyte% 18.2 % (0-10); NRBC Flagged by Analyzer 0 % (0-5); Neutrophil # 5.38 X10^3/uL (2.7-7.7); Neutrophil % 47.1 % (47-70); POSITIVE DIFFERENTIAL YES; POSITIVE MORPHOLOGY YES; Platelet Count 345 K/mm3 (150-450); RBC Distribution Width CV 11.9 % (11.6-14.6); RBC Distribution Width SD 41.7 fl (35.1-43.9); Red Blood Count 4.06 M/mm3 (4.2-5.4); White Blood Count 11.4 K/mm3 (4.4-11.0)
[2022-08-16 06:07] LABS: Differential Indicated SCAN CRITERIA MET
[2022-08-16 06:19] LABS: Differential Comment SCANNED
[2022-08-16 06:27] LABS: ALB/GLOB Ratio 0.6 RATIO (0.9-2.4); AST(SGOT) 10 U/L (15-37); Alanine Aminotransfer ALT/SGPT 11 U/L (13-56); Albumin, Serum 2.3 g/dL (3.2-5.0); Alkaline Phosphatase 96 U/L (45-117); Anion Gap 7 (5-15); BUN 38 mg/dL (7-18); BUN/Creat Ratio 11.8 RATIO (10-20); Calcium,Total 7.8 mg/dL (8.5-10.1); Chloride 117 mmol/L (98-107); Creatinine, Serum 3.22 mg/dL (0.55-1.02); EST Glomerular Filtration Rate 16 mL/min (>60); Est Glom Filt Rate - Afr Amer 19 mL/min (>60); Estimated Creatinine Clearance 18.27 ml/min; Globulin 3.9 g/dL (2.2-4.2); Glucose 94 mg/dL (74-106); Magnesium 2.1 mg/dL (1.6-2.6); Potassium 3.8 mmol/L (3.5-5.1); Protein, Total 6.2 g/dL (6.4-8.2); Sodium Level 140 mmol/L (136-145)
[2022-08-16 06:28] LABS: Phosphorus 3.9 mg/dL (2.5-4.9)
[2022-08-16 06:28] LABS: Bedside Glucose 80 mg/dL (74-106)
--- NOTE | 2022-08-16 07:23 | PCM.PN.HOSP ---
Reason for Visit Reason for Visit: Diagnoses Morbid (severe) obesity with alveolar hypoventilation (08/14/22) Hypokalemia (08/14/22) Noninfective gastroenteritis and colitis, unspecified (08/14/22) Acute kidney failure, unspecified (08/14/22) Bacteriuria (08/14/22) Personal history of other endocrine, nutritional and metabolic disease (08/14/22) Subjective Subjective Patient with notable diarrhea through the evening although lessened this a.m. with additionally onset of nausea requesting pain medication. She describes her abdominal discomfort as cramping in nature and diffuse, 3-4 out of 10 in severity. This morning she is fatigued and notes she did not sleep well secondary to diarrhea. Reviewed current labs which include negative C. difficile, negative enteric, unremarkable urine culture, pending blood culture x2 with ongoing IV meropenem with no evidence of any fevers with improving renal function. Patient denies fevers, chills, chest pain or dyspnea. Objective Data Objective Data Vital Signs: Vital Signs Temp Pulse Resp BP Pulse Ox O2 Del Method FiO2 98.2 F 82 18 117/52 L 95 Room Air 21 08/16/22 05:00 08/16/22 05:00 08/16/22 05:00 08/16/22 05:00 08/16/22 05:00 08/16/22 05:00 08/15/22 07:16 Oxygen Delivery Method Room Air Weight: 334 lb 0.005 oz Body Mass Index (BMI) 50.8 Intake & Output: Intake and Output for Last 24 Hours 08/14/22 08/15/22 08/16/22 23:59 23:59 23:59 Intake Total 1252.5 / 1252.5 3187.91 / 3187.91 935.42 / 935.42 Output Total 150 / 450 300 / 300 Balance 1252.5 / 1252.5 3037.91 / 2737.91 635.42 / 635.42 Lab / Micro Data Result Diagrams: 08/16/22 05:40 08/16/22 05:40 Labs: Laboratory Results - last 24 hr 08/15/22 05:55: Diff Path Review Reviewed 08/15/22 05:55: Cortisol 19.40 08/15/22 05:55: ESR 20 08/15/22 05:55: Procalcitonin 0.47 H 08/15/22 11:22: POC Glucose 88 08/15/22 11:37: Ur Random Sodium 6, Urine Creatinine 437.00, Urine Potassium 23.0, Urine Chloride 25, Urine Urea Nitrogen 175 08/15/22 11:37: Urine Osmolality 311 08/15/22 12:05: Sodium 139, Potassium 3.8, Chloride 115 H, Carbon Dioxide 19.0 L, Anion Gap 5, BUN 35 H, Creatinine 3.71 H, Estim Creat Clear Calc 15.86, Est GFR (MDRD) Af Amer 16 L, Est GFR (MDRD) Non-Af 13 L, BUN/Creatinine Ratio 9.4 L, Glucose 91, Calcium 7.9 L 08/15/22 12:05: C-React Prot Ext Range 67.20 H 08/15/22 16:41: POC Glucose 77 08/15/22 16:50: U Random Total Protein 120.7 H, Urine Creatinine 293.00, Protein/Creatinin Ratio 412 H 08/15/22 21:48: POC Glucose 81 08/16/22 05:40: WBC 11.4 H, RBC 4.06 L, Hgb 12.3, Hct 39.0, MCV 96.1, MCH 30.3, MCHC 31.5 L, RDW Std Deviation 41.7, RDW Coeff of Amirah 11.9, Plt Count 345, MPV 10.7, Immature Gran % (Auto) 2.200 H, Neut % (Auto) 47.1, Lymph % (Auto) 25.1, [place] % (Auto) 18.2 H, Eos % (Auto) 6.6 H, Baso % (Auto) 0.8, Absolute Neuts (auto) 5.4, Absolute Lymphs (auto) 2.86, Nucleated RBC % 0, Differential Comment SCANNED, Diff Path Review June08/16/22 05:40: Sodium 140, Potassium 3.8, Chloride 117 H, Carbon Dioxide 16.0 L, Anion Gap 7, BUN 38 H, Creatinine 3.22 H, Estim Creat Clear Calc 18.27, Est GFR (MDRD) Af Amer 19 L, Est GFR (MDRD) Non-Af 16 L, BUN/Creatinine Ratio 11.8, Glucose 94, Calcium 7.8 L, Magnesium 2.1, Total Bilirubin 0.30, AST 10 L, ALT 11 L, Alkaline Phosphatase 96, Total Protein 6.2 L, Albumin 2.3 L, Globulin 3.9, Albumin/Globulin Ratio 0.6 L 08/16/22 05:40: Phosphorus 3.9 08/16/22 06:08: POC Glucose 80 Micro: Microbiology 08/14/22 19:38 Urine, Catheterized Urine Culture - Preliminary GNR lactose watershed engineer Gram negative haven 08/14/22 19:38 Stool Stool Lactoferrin - Final 08/14/22 19:38 Stool Enteric Bacteriology - Final 08/14/22 19:38 Stool C. difficile DNA Amplification - Final Radiography Diagnostic Testing: Radiology Impression Renal Ultrasound 08/15/22 07:54 IMPRESSION: Normal ultrasound of the kidneys and urinary bladder. Electronically Signed: Vladimir Parsons MD at 21:42 EDT , Physical Exam Narrative Physical Examination: General: Awake, alert, oriented x 3 and cooperative, seated upright in the medical surgical bed, fatigued and mildly ill-appearing. Skin: Normal color, normal turgor, no icterus, no cyanosis. HEENT: AT/NC, EOMI, PERRLA, moderately dry MM. Lungs: Diminished, greater bases, distant breath sounds likely secondary to habitus, no rales, ronchi or wheezing. Heart: Currently regular rate and rhythm; no gallop, rub audible. Abdomen: Soft, generalized discomfort with palpation with no rebound or guarding, difficult to assess distention given habitus, mildly hyperactive bowel sounds. Extremities: No cyanosis, no clubbing, chronic bilateral lower extremity lymphedema. Neurological: Patient awake, alert, oriented as noted, cognitive function intact; pupils equally reactive to light and accommodation, cranial nerves II-XII grossly normal, moving all 4 extremities, no focal deficits, strength moderately to severely global decrease secondary to acute presentation. Psychiatric: Affect appears flat, fatigued, ill-appearing, no acute evidence of depressive or anxiety feelings. Assessment & Plan Assessment/Plan (1) Acute renal failure: PLAN: Plan The patient is a 61 y/o F w/ PMHx: Morbid obesity, Diabetes mellitus type II, HONEY on CPAP, HTN, HLD who presents to the [facility] ED on 08/14/22 with history of increasing fatigue, malaise, significant diarrhea since initiation on Mounjaro with outpatient labs with notable creatinine rise 3.06 prompting ED evaluation recommendation. #1. Severe diarrhea/ileus: CT abdomen and pelvis with evidence of ileus, probable left adrenal adenoma, sensitivity limited secondary to lack of contrast usage. Stool lactoferrin positive, negative enteric pathogen panel, negative C. difficile PCR, stool calprotectin pending. Blood culture x2 pending. Continue hydration, electrolytes upon presentation with admission potassium 3.4 and magnesium 1.3, supplemented with correction, TSH 3.01, cortisol and catecholamines secondary to concern for adrenal incidentaloma obtained with cortisol 19.40/plasma total catecholamines pending; however, suspect patient's diarrhea secondary to recent Mounjaro initiation as diarrhea started immediately following this medication usage, will continue to hold, monitor I's and O's, currently maintained on meropenem and PPI. Ova and parasite is pending. Adding Bentyl to assist with abdominal cramping and discomfort. If ongoing persistent discomfort or worsening status may need to consider reimaging or may consider surgery involvement. #2. Acute kidney injury on suspected CKD stage IIIb: Secondary to GI losses with significant diarrhea, potentially associated with recent transition from Ozempic switch to Mounjaro with notable intravascular volume depletion as well as concurrent usage of ARB/diuretic and NSAID, admission BUN/Cr 28/3.06, prior baseline creatinine noted to be 1.4-1.7. Patient judiciously hydrated, nephrotoxic medications held, Renal ultrasound normal. Urine osmolality 311, urine sodium 6, urine creatinine 293, nephrology consulted and following. 08/16/2022 BUN/creatinine 38/3.22, will continue to trend. Thrasher catheter placed upon presentation. UA on admission with nitrate and leukocyte esterase as well as 10 occult blood, urine protein 100 however urine culture unremarkable. We will continue to hold Mounjaro given nephrology high suspicions. #3. Leukocytosis, unclear significance, bands noted on Jazmyn Path review and additionally noted monocytosis, BP 08/15/2022 mildly trended down, given mild worsening appearance and CT scan unfortunately unable to be obtained secondary to lack of contrast inflammatory markers were obtained with ESR 20, CRP 67.20, procalcitonin 0.47 with blood culture x2 initiated and pending with given penicillin allergy IV meropenem initiated, if cultures remain negative #4. Asymptomatic bacteriuria: Patient with abnormal urinalysis in the ED, urine pyorrhea normal, received Rocephin IV x1, urine culture not marked appearing, UTI ruled out. #5. Hypokalemia: Admission K+ 3.4, magnesium 1.3 with supplementation administered, supplementation given. 08/16/2022 potassium 3.8, magnesium 2.1, corrected. #6. Diabetes mellitus type II: 08/02/2021 hemoglobin A1c 6.5%, holding regimen, diarrhea possibly secondary to recent switch to Mounjaro as noted, ADA diet, accu checks w/ ISS. #7. Hypertension: Patient BP upon presentation mildly low and acute kidney injury therefore patient's Lasix as well as losartan held, resume once clinically appropriate, as needed IV hydralazine in interim. #8. Hyperlipidemia: Not on regimen, defer to outpatient. #9. Anxiety: We will cautiously continue patient Ativan home regimen. #10. Morbid Obesity: Weight loss and lifestyle changes encouraged. #11. GERD: Maintained on PPI. #12. HONEY: CPAP nightly. #13. DVT prophylaxis: Heparin. #14. CODE STATUS: Full code. Admission Evaluation Time spent evaluating chart, patient history, patient evaluation, care planning and discussion with specialists: 50 minutes. Charges/Coding Visit Charges Inpatient E&M: 53699 [facility] L3
[2022-08-16 07:39] VITALS: O2SAT 95
[2022-08-16] MEDS: Ferrous Sulfate 325 MG Tablet PO ×2 (08:13→16:21)
[2022-08-16] MEDS: Pantoprazole Sodium 40 MG Tablet PO (08:13)
[2022-08-16] MEDS: Heparin Injection (Vial) 5,000 UNIT/ML VIAL 5000 UNIT SC ×2 (08:13→21:24)
[2022-08-16] MEDS: Menthol/Lanolin/Calamine/Znox 113 GM Tube 1 APPLIC TOPICAL ×4 (08:14→21:19)
[2022-08-16] MEDS: Ondansetron 4 MG/2 ML Vial IV ×2 (08:14→18:19)
[2022-08-16] MEDS: 0.9% Saline Lock 10 ML Syringe IV ×2 (08:14→18:19)
[2022-08-16 08:15] VITALS: BP 132/60; PULSE 99; RESP 18; TEMP 37.3; O2SAT 98
[2022-08-16] MEDS: Acetaminophen 325 MG Tablet 650 MG PO (08:21)
[2022-08-16 11:21] LABS: Bedside Glucose 83 mg/dL (74-106)
[2022-08-16 11:49] VITALS: O2SAT 98
[2022-08-16] MEDS: Dicyclomine 10 MG Capsule PO ×2 (11:54→16:21)
--- NOTE | 2022-08-16 13:22 | CASEMGMT ---
SHELBY CM into pt room, pt with multiple family members present. Discussed how pt did with therapy, pt states she feels she did well. Pt denies any need for HHC again. Pt reports having oxygen at 2L cont and has portable tanks. TC to [facility] to verify. Pt is on baseline oxygen. Pt states she has a w/c that she obtained in January from [facility] and the threads are coming apart. Notified Jaimie when verified oxygen. She requests pt to call [facility] when she is home. Updated pt.
--- NOTE | 2022-08-16 14:14 | PCM.PN.REN ---
Subjective Subjective Resting quietly. Reports feeling better today. Reports still nauseated and had vomiting episode last evening. Multiple family members at bedside. Objective Data Objective Data Vital Signs: Vital Signs Temp Pulse Resp BP Pulse Ox O2 Del Method O2 Flow Rate 99.1 F 99 18 132/60 H 98 Nasal Cannula 1.5 08/16/22 08:15 08/16/22 08:15 08/16/22 08:15 08/16/22 08:15 08/16/22 11:49 08/16/22 08:15 08/16/22 13:31 FiO2 21 08/15/22 07:16 Oxygen Flow Rate (L/min) 1.5 Oxygen Delivery Method Nasal Cannula Weight: 151.5 kg Body Mass Index (BMI) 50.8 Intake & Output: Intake and Output for Last 24 Hours 08/14/22 08/15/22 08/16/22 23:59 23:59 23:59 Intake Total 1252.5 / 1252.5 3187.91 / 3187.91 1830.84 / 1830.84 Output Total 150 / 450 575 / 575 Balance 1252.5 / 1252.5 3037.91 / 2737.91 1255.84 / 1255.84 Lab / Micro Data Result Diagrams: 08/16/22 05:40 08/16/22 05:40 Labs: Laboratory Results - last 24 hr 08/15/22 05:55: ESR 20 08/15/22 05:55: Procalcitonin 0.47 H 08/15/22 12:05: C-React Prot Ext Range 67.20 H 08/15/22 16:41: POC Glucose 77 08/15/22 16:50: U Random Total Protein 120.7 H, Urine Creatinine 293.00, Protein/Creatinin Ratio 412 H 08/15/22 21:48: POC Glucose 81 08/16/22 05:40: WBC 11.4 H, RBC 4.06 L, Hgb 12.3, Hct 39.0, MCV 96.1, MCH 30.3, MCHC 31.5 L, RDW Std Deviation 41.7, RDW Coeff of Amirah 11.9, Plt Count 345, MPV 10.7, Immature Gran % (Auto) 2.200 H, Neut % (Auto) 47.1, Lymph % (Auto) 25.1, [place] % (Auto) 18.2 H, Eos % (Auto) 6.6 H, Baso % (Auto) 0.8, Absolute Neuts (auto) 5.4, Absolute Lymphs (auto) 2.86, Nucleated RBC % 0, Differential Comment SCANNED, Diff Path Review June08/16/22 05:40: Sodium 140, Potassium 3.8, Chloride 117 H, Carbon Dioxide 16.0 L, Anion Gap 7, BUN 38 H, Creatinine 3.22 H, Estim Creat Clear Calc 18.27, Est GFR (MDRD) Af Amer 19 L, Est GFR (MDRD) Non-Af 16 L, BUN/Creatinine Ratio 11.8, Glucose 94, Calcium 7.8 L, Magnesium 2.1, Total Bilirubin 0.30, AST 10 L, ALT 11 L, Alkaline Phosphatase 96, Total Protein 6.2 L, Albumin 2.3 L, Globulin 3.9, Albumin/Globulin Ratio 0.6 L 08/16/22 05:40: Phosphorus 3.9 08/16/22 06:08: POC Glucose 80 08/16/22 10:59: POC Glucose 83 Micro: Microbiology 08/14/22 19:38 Urine, Catheterized Urine Culture - Final Escherichia coli Escherichia coli#2 08/14/22 19:38 Stool Stool Lactoferrin - Final 08/14/22 19:38 Stool Enteric Bacteriology - Final 08/14/22 19:38 Stool C. difficile DNA Amplification - Final Radiography Diagnostic Testing: Radiology Impression Renal Ultrasound 08/15/22 07:54 IMPRESSION: Normal ultrasound of the kidneys and urinary bladder. Electronically Signed: Vladimir Parsons MD at 21:42 EDT Reading Location ID and State: [facility] / [place] , Service support , Physical Exam Narrative Alert and oriented x3, no apparent distress S1, S2, RRR Lung sounds clear anteriorly and posteriorly. No wheezes rhonchi rales noted Abdomen soft, nontender, positive bowel sounds No edema Indwelling Thrasher with clear urine in bag Assessment & Plan Assessment/Plan (1) Acute renal failure: (2) Gastroenteritis: (3) Hypokalemia: (4) History of diabetes mellitus: PLAN: Plan This is a 61 F with past history significant for diabetes mellitus type 2, hypertension, obesity, HONEY on home CPAP who presented to the emergency room 08/14 with complaints of fatigue and diarrhea after starting Mounjaro (had been having diarrhea/nausea/weight loss for well over a week). Lab work in the emergency room showed creatinine 3.06 mg/dL, potassium 3.4. Patient was admitted for gastroenteritis and LORNE. Nephrology consulted for acute kidney injury. Patient is known to our group from hospital consultation in October 2021 for LORNE and hyperkalemia (K+ 8.8). Patient has never required any BACK END ARCHITECT. - LORNE likely secondary to significant intravascular volume depletion with concurrent ARB, diuretic and NSAID use. Also to note patient hypotensive on admission which could also be contributing to LORNE leading to ATN. Serum creatinine 3.06 mg/dL on admission--> 3.71 mg/dL--> today serum creatinine 3.22 mg/dL. At this time there is no acute indication for BACK END ARCHITECT, no significant hyperkalemia or acidosis necessitating BACK END ARCHITECT. Patient was hypovolemic and hypotensive on admission, started on IV fluids and received multiple fluid boluses. Overall volume status has improved. Blood pressure has improved. Recommend continue holding losartan and Lasix. Recommend no NSAIDs, discussed this with patient and her son. Renal ultrasound no hydronephrosis. Okay to remove Thrasher. UA on admission positive nitrite, leukocyte Estrace, 10 occult blood, urine protein 100. Urine sodium was 6. Urine protein creatinine ratio 412 mg/g - Patient quite possibly has CKD stage III. November 20, 2021 creatinine 1.77 mg/dL, 08/12/2022 creatinine 1.49 mg/dL. We will follow serum creatinine trajectory. We will also arrange for hospital follow-up at [place] office. - Metabolic acidosis likely secondary to severe diarrhea and LORNE. -History of hypertension; blood pressures controlled/improved. Not on any antihypertensives. - History of diabetes mellitus type 2. A1c 6.5% 08/02/2021. To note patient has lost at least 150 pounds on Trulicity. Trulicity was then switched to Ozempic and Ozempic switched to Mounjaro. Since being on Mounjaro patient has had significant diarrhea for well over a week. - Severe diarrhea/ileus: CT abdomen and pelvis with evidence of ileus, probable left adrenal adenoma, sensitivity limited secondary to lack of contrast usage. C. difficile negative. Started on Bentyl.
[2022-08-16 14:15] VITALS: BP 129/60; PULSE 93; RESP 18; TEMP 36.7; O2SAT 96
--- NOTE | 2022-08-16 14:23 | CASEMGMT ---
Social Work CM asked pt to have LW/POA documents brought in as able. Pt had informed CM that [facility] is her POA. DEBRA Goldman
[2022-08-16 15:32] LABS: Pathologist Review Reviewed
[2022-08-16 16:41] LABS: Bedside Glucose 81 mg/dL (74-106)
--- NOTE | 2022-08-16 17:02 | NURSING ---
[facility] asked this RN to enter an order to DC kiran catheter tomorrow morning (08/17). This RN entered the order to be completed 08/17 at 0600.
[2022-08-16 21:10] VITALS: BP 130/64; PULSE 92; RESP 18; TEMP 36.9; O2SAT 100
[2022-08-16] MEDS: LORazepam 1 MG Tablet PO (21:24)
[2022-08-16 21:47] LABS: Bedside Glucose 80 mg/dL (74-106)
[2022-08-17] MEDS: 0.9% Normal Saline 1,000 ML 125 ML IV (02:08)
[2022-08-17 02:15] VITALS: BP 109/45; PULSE 96; RESP 18; TEMP 36.8; O2SAT 100
--- NOTE | 2022-08-17 06:27 | PN.HOSP_ITS ---
Reason for Visit Reason for Visit: Diagnoses Morbid (severe) obesity with alveolar hypoventilation (08/14/22) Hypokalemia (08/14/22) Noninfective gastroenteritis and colitis, unspecified (08/14/22) Acute kidney failure, unspecified (08/14/22) Bacteriuria (08/14/22) Personal history of other endocrine, nutritional and metabolic disease (08/14/22) Subjective Subjective With still pursed life notable diarrhea overnight although had less in the day prior with some pulsed dose of loperamide. She states abdominal pain has lessened with Bentyl addition but still complaining of some discomfort which is now primarily in the right upper quadrant and epigastric region. She denies any further nausea or emesis and is tolerating a diet. Patient denies fevers, chills, chest pain or dyspnea. Objective Data Objective Data Vital Signs: Vital Signs Temp Pulse Resp BP Pulse Ox O2 Del Method O2 Flow Rate 98.2 F 96 18 109/45 L 100 Room Air 1.5 08/17/22 02:15 08/17/22 02:15 08/17/22 02:15 08/17/22 02:15 08/17/22 02:15 08/17/22 02:15 08/16/22 13:31 FiO2 21 08/15/22 07:16 Oxygen Flow Rate (L/min) 1.5 Oxygen Delivery Method Room Air Weight: 334 lb 0.005 oz Body Mass Index (BMI) 50.8 Intake & Output: Intake and Output for Last 24 Hours 08/15/22 08/16/22 08/17/22 23:59 23:59 23:59 Intake Total 3187.91 / 3187.91 2622.51 / 2622.51 1037.08 / 1037.08 Output Total 150 / 450 850 / 1200 350 / 350 Balance 3037.91 / 2737.91 1772.51 / 1422.51 687.08 / 687.08 Lab / Micro Data Result Diagrams: 08/17/22 06:40 08/17/22 06:40 Labs: Laboratory Results - last 24 hr 08/16/22 05:40: Diff Path Review Reviewed 08/16/22 05:40: Sodium 140, Potassium 3.8, Chloride 117 H, Carbon Dioxide 16.0 L , Anion Gap 7, BUN 38 H, Creatinine 3.22 H, Estim Creat Clear Calc 18.27, Est GFR (MDRD) Af Amer 19 L, Est GFR (MDRD) Non-Af 16 L, BUN/Creatinine Ratio 11.8, Glucose 94, Calcium 7.8 L, Magnesium 2.1, Total Bilirubin 0.30, AST 10 L, ALT 11 L, Alkaline Phosphatase 96, Total Protein 6.2 L, Albumin 2.3 L, Globulin 3.9, Albumin/Globulin Ratio 0.6 L 08/16/22 05:40: Phosphorus 3.9 08/16/22 06:08: POC Glucose 80 08/16/22 10:59: POC Glucose 83 08/16/22 16:20: POC Glucose 81 08/16/22 21:17: POC Glucose 80 Micro: Microbiology 08/14/22 19:38 Urine, Catheterized Urine Culture - Final Escherichia coli Escherichia coli#2 08/14/22 19:38 Stool Stool Lactoferrin - Final 08/14/22 19:38 Stool Enteric Bacteriology - Final 08/14/22 19:38 Stool C. difficile DNA Amplification - Final Physical Exam Narrative Physical Examination: General: Awake, alert, oriented x 3 and cooperative, seated upright in the [facility] surgical bed, fatigued but improved appearance from day prior. Skin: Normal color, normal turgor, no icterus, no cyanosis. HEENT: AT/NC, EOMI, PERRLA, improved MMM. Lungs: Diminished, greater bases, distant breath sounds likely secondary to habitus, no rales, ronchi or wheezing. Heart: Regular rate and rhythm; no gallop, rub audible. Abdomen: Soft, morbidly obese, primarily now discomfort in the right upper quadrant and epigastric region with no marked rebound or guarding, still mildly hyperactive BS, difficult to assess distention given habitus. Extremities: No cyanosis, no clubbing, chronic bilateral lower extremity lymphedema. Neurological: Patient awake, alert, oriented as noted, cognitive function intact; pupils equally reactive to light and accommodation, cranial nerves II- XII grossly normal, moving all 4 extremities, no focal deficits, strength moderately globally decreased, improving. Psychiatric: Affect appears flat, fatigued, improved appearance however compared to day prior, no acute evidence of depressive or anxiety feelings. Assessment & Plan Assessment/Plan (1) Acute renal failure: PLAN: Plan The patient is a 61 y/o F w/ PMHx: Morbid obesity, Diabetes mellitus type II, HONEY on CPAP, HTN, HLD who presents to the [facility] ED on 08/14/22 with history of increasing fatigue, malaise, significant diarrhea since initiation on Mounjaro with outpatient labs with notable creatinine rise 3.06 prompting ED evaluation recommendation. #1. Severe diarrhea/ileus: CT abdomen and pelvis with evidence of ileus, probable left adrenal adenoma, sensitivity limited secondary to lack of contrast usage. Stool lactoferrin positive, negative enteric pathogen panel, negative C. difficile PCR, stool calprotectin pending. Blood culture x2 pending. Continue hydration, electrolytes upon presentation with admission potassium 3.4 and magnesium 1.3, supplemented with correction, TSH 3.01, cortisol and catecholamines secondary to concern for adrenal incidentaloma obtained with cortisol 19.40/plasma total catecholamines pending; however, suspect patient's diarrhea secondary to recent Mounjaro initiation as diarrhea started immediately following this medication usage, will continue to hold, monitor I's and O's, patient had been initiated on meropenem secondary to concerns for mild WBC elevation with increased CRP and ESR as well as mild procalcitonin elevation. 08/17/2022 given ongoing diarrhea and abdominal discomfort (RUQ/epigastric region, s/p cholecystectomy prior of note) discussed case with general surgery and at this time we will transition to IV PPI, discontinue meropenem, obtain lipase and will await their evaluation for consideration of reimaging potentially with oral contrast pending further renal function improvement. We will continue Bentyl as this is seem to improve symptoms somewhat as well as pulse dose loperamide if necessary. #2. Acute kidney injury on suspected CKD stage IIIb: Secondary to GI losses with significant diarrhea, potentially associated with recent transition from Ozempic switch to Mounjaro with notable intravascular volume depletion as well as concurrent usage of ARB/diuretic and NSAID, admission BUN/Cr 28/3.06, prior baseline creatinine noted to be 1.4-1.7. Patient judiciously hydrated, nephrotoxic medications held, Renal ultrasound normal. Urine osmolality 311, urine sodium 6, urine creatinine 293, nephrology consulted and following. 08/16/2022 BUN/creatinine 38/3.22-> 08/17/2022 BUN/Reynolds 31/2.23, continues to significantly improve. Thrasher catheter placed upon presentation and as clinically improves will discontinue. UA on admission with nitrate and leukocyte esterase as well as 10 occult blood, urine protein 100 however urine culture unremarkable. We will continue to hold Mounjaro given nephrology high suspicions. Given renal function continues to improve and hyperchloremia we will hold on fluids as oral intake is appropriate however if diarrhea more marked despite further evaluation #1 May need to restart, will await surgery evaluation. #3. Leukocytosis, unclear significance: Patient upon presentation with mild leukocytosis but this was certainly in the setting of significant diarrhea, noted prior evaluation concerns with BP 08/15/2022, worsening clinical evaluation as well as CT scan unfortunately unable to be obtained secondary to lack of contrast inflammatory markers were obtained with ESR 20, CRP 67.20, procalcitonin 0.47 with blood culture x2 with no growth noted to date. Given these findings patient previously had been initiated on IV meropenem, discussed current presentation with general surgery as patient is not significantly improved and will discontinue at this time pending further evaluation by them. #4. Asymptomatic bacteriuria: Patient with abnormal urinalysis in the ED, urine pyorrhea normal, received Rocephin IV x1, urine culture not marked appearing, UTI ruled out. #5. Electrolyte disturbances with hypokalemia, hyperchloremia, hypomagnesemia: Admission K+ 3.4, magnesium 1.3 with supplementation administered, supplementation given. 08/16/2022 potassium 3.8, magnesium 2.1, corrected-> 08/17/2022 potassium 4.1, chloride 123. Had been aggressively hydrated secondary to LORNE, tolerating appropriate oral intake thus will trial off IV fluids especially given hyperchloremia. #6. Diabetes mellitus type II: 08/02/2021 hemoglobin A1c 6.5%, holding regimen, diarrhea possibly secondary to recent switch to Mounjaro as noted, ADA diet, accu checks w/ ISS. #7. Hypertension: Patient BP upon presentation mildly low and acute kidney injury therefore patient's Lasix as well as losartan held, 08/17/2022 BP improving however renal function still elevated above baseline, once diarrhea is resolved and LORNE also resolved would plan to resume hypertensive regimen as able however in the interim will initiate low-dose Norvasc, as needed IV hydralazine in interim. #8. Hyperlipidemia: Not on regimen, defer to outpatient. #9. Anxiety: We will cautiously continue patient Ativan home regimen. #10. Morbid Obesity: Weight loss and lifestyle changes encouraged. #11. GERD: Maintained on PPI. #12. HONEY: CPAP nightly. #13. DVT prophylaxis: Heparin. #14. CODE STATUS: Full code. Admission Evaluation Time spent evaluating chart, patient history, patient evaluation, care planning and discussion with specialists: 35 minutes. Charges/Coding Visit Charges Inpatient E&M: 16729 Subs Hosp L2
[2022-08-17] MEDS: DiphenhydrAMINE 25 MG Capsule PO (06:44)
[2022-08-17] MEDS: 0.9% Saline Lock 10 ML Syringe IV ×2 (06:45→13:19)
[2022-08-17] MEDS: Ondansetron 4 MG/2 ML Vial IV ×2 (06:45→13:19)
[2022-08-17] MEDS: Loperamide 2 MG Capsule 4 MG PO (06:45)
[2022-08-17] MEDS: Dicyclomine 10 MG Capsule PO ×3 (06:48→17:24)
[2022-08-17 07:15] LABS: Bedside Glucose 88 mg/dL (74-106)
[2022-08-17 07:23] LABS: Absolute Lymphocyte Count 3.55 X10^3/uL (0.83-4.51); Absolute Neutrophil Count 2.6 X10^3/uL (2.0-7.7); Basophil# 0.11 X10^3/uL; Basophil% 1.1 % (0-1); Eosinophil# 1.09 X10^3/uL; Hematocrit 39.1 % (37-47); Lymphocyte # 3.55 X10^3/ul (0.83-4.51); Lymphocyte % 35.9 % (19-41); Mean Corp Hgb Conc 30.7 g/dL (32-36); Mean Corpuscular Hgb 29.9 pg (27.0-32.0); Mean Corpuscular Volume 97.3 fL (81-99); Mean Platelet Vol. 10.7 fl (6.2-12.0); Monocyte# 2.19 X10^3/uL; Monocyte% 22.2 % (0-10); NRBC Flagged by Analyzer 0.2 % (0-5); Neutrophil # 2.61 X10^3/uL (2.7-7.7); Neutrophil % 26.5 % (47-70); POSITIVE DIFFERENTIAL YES; POSITIVE MORPHOLOGY YES; Platelet Count 331 K/mm3 (150-450); RBC Distribution Width SD 43.6 fl (35.1-43.9); Red Blood Count 4.02 M/mm3 (4.2-5.4); White Blood Count 9.9 K/mm3 (4.4-11.0)
[2022-08-17 07:30] LABS: Differential Indicated SCAN CRITERIA MET
[2022-08-17 07:52] LABS: ALB/GLOB Ratio 0.6 RATIO (0.9-2.4); AST(SGOT) 10 U/L (15-37); Alanine Aminotransfer ALT/SGPT 11 U/L (13-56); Alkaline Phosphatase 83 U/L (45-117); Anion Gap 4 (5-15); BUN 31 mg/dL (7-18); BUN/Creat Ratio 13.9 RATIO (10-20); Calcium,Total 7.6 mg/dL (8.5-10.1); Chloride 123 mmol/L (98-107); Creatinine, Serum 2.23 mg/dL (0.55-1.02); EST Glomerular Filtration Rate 24 mL/min (>60); Est Glom Filt Rate - Afr Amer 29 mL/min (>60); Estimated Creatinine Clearance 26.39 ml/min; Globulin 3.5 g/dL (2.2-4.2); Glucose 91 mg/dL (74-106); Potassium 4.1 mmol/L (3.5-5.1); Protein, Total 5.5 g/dL (6.4-8.2); Sodium Level 144 mmol/L (136-145)
[2022-08-17] MEDS: Pantoprazole Sodium 40 MG Tablet PO (08:12)
[2022-08-17] MEDS: Menthol/Lanolin/Calamine/Znox 113 GM Tube 1 APPLIC TOPICAL ×4 (08:12→21:18)
[2022-08-17] MEDS: Heparin Injection (Vial) 5,000 UNIT/ML VIAL 5000 UNIT SC ×2 (08:13→21:21)
[2022-08-17] MEDS: Ferrous Sulfate 325 MG Tablet PO ×2 (08:13→17:29)
[2022-08-17 08:15] VITALS: BP 160/63; PULSE 91; RESP 17; TEMP 36.6; O2SAT 97
[2022-08-17] MEDS: Acetaminophen 325 MG Tablet 650 MG PO (08:26)
[2022-08-17] MEDS: Loperamide 2 MG Capsule PO ×2 (08:27→20:14)
[2022-08-17 08:57] LABS: Differential Comment SCANNED
[2022-08-17 08:58] LABS: Reactive Lymphocyte 1+
[2022-08-17 09:54] LABS: Lipase 23 U/L (13-75)
[2022-08-17] MEDS: DiphenhydrAMINE 25 MG Capsule 50 MG PO ×2 (11:24→20:14)
[2022-08-17 11:50] LABS: Bedside Glucose 78 mg/dL (74-106)
--- NOTE | 2022-08-17 12:32 | CON.PCM.SX_ITS ---
Assessment & Plan Assessment/Plan (1) LUQ pain: (2) Epigastric abdominal pain: (3) Acute renal failure: (4) Asymptomatic bacteriuria: (5) Gastroenteritis: PLAN: Plan Did personally review patient's CT abdomen pelvis not see any acute etiology for her abdominal pain. Plan to give patient IV Protonix as this works better than the p.o. Also try some Carafate as pain does seem to fit with gastric etiology with getting better with eating. We will continue to monitor patient if pain is not better may cons ider getting a CT abdomen pelvis with p.o. contrast in the future. Patient was agreeable with plan. Continue antibiotics for UTI per primary. Raysa Knox M.D. Pager: [phone] [facility] [address] [place] [address], Outpatient Pavilion, [address] [place] [id number] Office: [phone] HPI Consult Data Date of Consult: 08/17/22 HPI Narrative HPI Narrative: MEGGAN ARITA, is a 61 F who admitted due to renal failure, diarrhea. Patient has been complaining of abdominal pain. When asked her pain she points across her mid abdomen. Patient states the pain came be worse after before eating but seems to be little better before eating and during eating. Patient was also diagnosed with a E. coli UTI which she is currently on antibiotics for. Patient's creatinine is improving. Patient is normally on Protonix daily at home. Patient states her last scope was within the last 5 years. Patient noted her recent diarrhea started with the Mounjaro shot. Patient have a CT abdomen pelvis with no contrast not show any obvious etiology for the abdominal pain. Patient is able to tolerate a diet and still having diarrhea. [facility] Medical History Anemia Anxiety Asthma Chronic respiratory failure with hypoxia and hypercapnia CPAP (continuous positive airway pressure) dependence Hypertension Obesity Sleep apnea Type 2 diabetes mellitus Home Medications albuterol sulfate 2.5 mg/3 mL (0.083 %) solution for nebulization 2.5 mg inhalation Q6HWA.RT PRN Asthma 11/23/12 [History Last Taken 07/31/21 13:00] acetaminophen 325 mg tablet (Tylenol) 650 mg PO Q6H PRN PRN Pain Score 1-10/Temp > 100.7 F #0 tabs 08/15/21 [Rx Last Taken Unknown] ascorbic acid (vitamin C) 500 mg tablet 500 mg PO BIDCM #0 tabs 08/15/21 [Rx Last Taken Unknown] ferrous sulfate 325 mg (65 mg iron) tablet (FeroSul) 325 mg PO BIDCM #0 tabs 08/15/21 [Rx Last Taken Unknown] diclofenac sodium 1 % topical gel 1 ea topical PRN PRN Pain 11/18/21 [History Last Taken Unknown] omeprazole 40 mg capsule,delayed release 40 mg PO DAILY 11/18/21 [History Last Taken Unknown] acetaminophen 325 mg tablet (Tylenol) 650 mg PO Q4H PRN PRN Fever, pain 1-10/10 #0 tabs 11/20/21 [Rx Last Taken Unknown] furosemide 40 mg tablet (Lasix) 40 mg PO DAILY #1 TAB 11/20/21 [Rx Last Taken Unknown] lorazepam 1 mg tablet 1 mg PO BID PRN PRN Anxiety #5 tabs 11/20/21 [Rx Last Taken Unknown] albuterol sulfate 90 mcg/actuation aerosol inhaler (Ventolin HFA) 2 puff inhalation Q4H PRN shortness of breath or wheezing #18 grams 01/30/22 [Rx Last Taken Unknown] fluticasone propionate 50 mcg/actuation nasal spray,suspension 2 spray DAILY PRN Sinus Symptoms #16 grams 01/30/22 [Rx Last Taken Unknown] losartan 50 mg tablet 50 mg PO DAILY 01/30/22 [History Last Taken Unknown] ondansetron HCl 4 mg tablet 4 mg PO PRN PRN Nausea 08/14/22 [History Last Taken Unknown] Allergy/AdvReac Type Severity Reaction Status Date / Time codeine Allergy Nausea/Vom/ Verified 08/14/22 17:59 Diarrhea iodine Allergy Swelling Verified 08/14/22 17:59 latex Allergy Shortness Verified 08/14/22 17:59 of breath meloxicam Allergy Rash Verified 08/14/22 17:59 Penicillins Allergy Shortness Verified 08/14/22 17:59 of breath tositumomab Allergy NEEDS Verified 08/14/22 17:59 FOLLOW-UP hydrocodone bitartrate AdvReac Nausea/Vom/ Verified 08/14/22 17:59 [From Vicodin] Diarrhea prednisone AdvReac Other Verified 08/14/22 17:59 Family History Other Diabetes Heart disease Hypertension Surgical History History of cholecystectomy Previous section Social History Smoking Status: Never smoker substance use type: does not use ROS Constitutional Constitutional: Denies anorexia Eyes Eyes: Denies loss of central vision ENT HEENT: Denies dysphagia Cardiovascular Cardiovascular: Denies chest pain Respiratory/Chest Respiratory/Chest: Denies cough Gastrointestinal Gastrointestinal: Reports abdominal pain and diarrhea; Denies constipation, dysphagia, nausea or vomiting Genitourinary Genitourinary: Denies dysuria Musculoskeletal Musculoskeletal: Denies joint swelling Integumentary Integumentary: Denies jaundice or rash Neurologic Neurologic: Denies focal weakness Psychiatric Psychiatric: Denies anxiety Endocrine Endocrinology: Denies palpitations Hematologic/Lymphatic Hematologic/Lymphatic: Denies easy bleeding Physical Exam Const alert, oriented x3 and no apparent distress Nutritional Appearance: obese HEENT normocephalic and head/scalp atraumatic Neck supple Resp normal respiratory effort Cardio regular rate GI soft to palpation; Negative for non-distended Palpation: tender other (Mostly left upper quadrant, epigastric some in the left lower quadrant, no peritoneal signs); Negative for guarding Extremity no clubbing, cyanosis or edema Skin no rashes or lesions noted Neuro CN's II-XII intact bilaterally Psych mental status grossly normal Lab / Micro Data Result Diagrams: 08/17/22 06:40 08/17/22 06:40 Labs: Laboratory Results - last 24 hr 08/16/22 05:40: Diff Path Review Reviewed 08/16/22 05:40: Lipase 23 08/16/22 16:20: POC Glucose 81 08/16/22 21:17: POC Glucose 80 08/17/22 06:40: WBC 9.9, RBC 4.02 L, Hgb 12.0, Hct 39.1, MCV 97.3, MCH 29.9, MCHC 30.7 L, RDW Std Deviation 43.6, RDW Coeff of Amirah 12.0, Plt Count 331, MPV 10.7, Immature Gran % (Auto) 3.300 H, Neut % (Auto) 26.5 L, Lymph % (Auto) 35.9, [place] % (Auto) 22.2 H, Eos % (Auto) 11.0 H, Baso % (Auto) 1.1 H, Absolute Neuts (auto) 2.6, Absolute Lymphs (auto) 3.55, Nucleated RBC % 0.2, Differential Comment SCANNED, Reactive Lymphocytes 1+ 08/17/22 06:40: Sodium 144, Potassium 4.1, Chloride 123 H, Carbon Dioxide 17.0 L , Anion Gap 4 L, BUN 31 H, Creatinine 2.23 H, Estim Creat Clear Calc 26.39, Est GFR (MDRD) Af Amer 29 L, Est GFR (MDRD) Non-Af 24 L, BUN/Creatinine Ratio 13.9, Glucose 91, Calcium 7.6 L, Total Bilirubin 0.30, AST 10 L, ALT 11 L, Alkaline Phosphatase 83, Total Protein 5.5 L, Albumin 2.0 L, Globulin 3.5, Albumin/Globulin Ratio 0.6 L 08/17/22 06:52: POC Glucose 88 08/17/22 11:28: POC Glucose 78 Micro: Microbiology 08/14/22 19:38 Urine, Catheterized Urine Culture - Final Escherichia coli Escherichia coli#2 Charges/Coding Visit Charges Inpatient E&M: 08359 Subs Hosp L3
[2022-08-17] MEDS: Lactated Ringers 1,000 ML 70 ML IV (14:09)
[2022-08-17] MEDS: amLODIPine 2.5 MG Tablet PO (14:12)
[2022-08-17 14:14] VITALS: BP 148/61; PULSE 91; RESP 18; TEMP 36.8; O2SAT 100
--- NOTE | 2022-08-17 16:18 | PCM.PN.REN ---
Subjective Subjective Follow-up on acute kidney injury, has been slowly improving over the last several days. She has now developed some abdominal pain and has been seen by surgeons. No respiratory compromise, hemodynamically stable Objective Data Objective Data Vital Signs: Vital Signs Temp Pulse Resp BP Pulse Ox O2 Del Method O2 Flow Rate 98.2 F 91 18 148/61 H 100 Room Air 1.5 08/17/22 14:14 08/17/22 14:14 08/17/22 14:14 08/17/22 14:14 08/17/22 14:14 08/17/22 14:14 08/16/22 13:31 FiO2 21 08/15/22 07:16 Oxygen Flow Rate (L/min) 1.5 Oxygen Delivery Method Room Air Weight: 151.5 kg Body Mass Index (BMI) 50.8 Intake & Output: Intake and Output for Last 24 Hours 08/15/22 08/16/22 08/17/22 23:59 23:59 23:59 Intake Total 3187.91 / 3187.91 2622.51 / 2622.51 2209.08 / 2209.08 Output Total 150 / 450 850 / 1200 650 / 650 Balance 3037.91 / 2737.91 1772.51 / 1422.51 1559.08 / 1559.08 Lab / Micro Data Attestation: I reviewed the patient's lab results. Result Diagrams: 08/17/22 06:40 08/17/22 06:40 Labs: Laboratory Results - last 24 hr 08/16/22 05:40: Lipase 23 08/16/22 16:20: POC Glucose 81 08/16/22 21:17: POC Glucose 80 08/17/22 06:40: WBC 9.9, RBC 4.02 L, Hgb 12.0, Hct 39.1, MCV 97.3, MCH 29.9, MCHC 30.7 L, RDW Std Deviation 43.6, RDW Coeff of Amirah 12.0, Plt Count 331, MPV 10.7, Immature Gran % (Auto) 3.300 H, Neut % (Auto) 26.5 L, Lymph % (Auto) 35.9, Bates % (Auto) 22.2 H, Eos % (Auto) 11.0 H, Baso % (Auto) 1.1 H, Absolute Neuts (auto) 2.6, Absolute Lymphs (auto) 3.55, Nucleated RBC % 0.2, Differential Comment SCANNED, Reactive Lymphocytes 1+ 08/17/22 06:40: Sodium 144, Potassium 4.1, Chloride 123 H, Carbon Dioxide 17.0 L, Anion Gap 4 L, BUN 31 H, Creatinine 2.23 H, Estim Creat Clear Calc 26.39, Est GFR (MDRD) Af Amer 29 L, Est GFR (MDRD) Non-Af 24 L, BUN/Creatinine Ratio 13.9, Glucose 91, Calcium 7.6 L, Total Bilirubin 0.30, AST 10 L, ALT 11 L, Alkaline Phosphatase 83, Total Protein 5.5 L, Albumin 2.0 L, Globulin 3.5, Albumin/Globulin Ratio 0.6 L 08/17/22 06:52: POC Glucose 88 08/17/22 11:28: POC Glucose 78 Micro: Microbiology 08/15/22 15:31 Blood Culture (Wb) - Anticubital Right Blood Culture - Preliminary No growth in 48 hours. 08/15/22 14:59 Blood Culture (Wb) - Anticubital Right Blood Culture - Preliminary No growth in 48 hours. 08/14/22 19:38 Urine, Catheterized Urine Culture - Final Escherichia coli Escherichia coli#2 08/14/22 19:38 Stool Stool Lactoferrin - Final 08/14/22 19:38 Stool Enteric Bacteriology - Final 08/14/22 19:38 Stool C. difficile DNA Amplification - Final Physical Exam Const alert and no apparent distress General Appearance: well developed Nutritional Appearance: obese HEENT normocephalic and moist oral mucous membranes Head and Scalp: atraumatic Neck no lymphadenopathy Resp no use of accessory muscles and clear to auscultation bilaterally Cardio regular rate GI Auscultation: normoactive bowel sounds Psych cooperative Assessment & Plan Assessment/Plan (1) Acute renal failure: PLAN: Creatinine is slowly improving, produces good amount of urine. No acidosis, no hyperkalemia. No need for dialysis today, hopefully she will continue to improve at this stage rate
[2022-08-17] MEDS: Sucralfate 1 GM Tablet PO ×2 (17:23→21:21)
[2022-08-17 17:48] LABS: Bedside Glucose 90 mg/dL (74-106)
[2022-08-17 20:16] VITALS: BP 146/69; PULSE 88; RESP 18; TEMP 36.6; O2SAT 97
[2022-08-17] MEDS: LORazepam 1 MG Tablet PO (21:28)
[2022-08-17] MEDS: Nystatin Powder 15gm Bottle 1 APPLIC TOPICAL (22:39)
[2022-08-17 23:15] LABS: Bedside Glucose 95 mg/dL (74-106)
[2022-08-18] MEDS: Loperamide 2 MG Capsule PO ×3 (00:39→12:00)
[2022-08-18 02:51] VITALS: BP 150/56; PULSE 88; RESP 18; TEMP 36.8; O2SAT 100
[2022-08-18] MEDS: Lactated Ringers 1,000 ML 70 ML IV ×2 (02:55→15:48)
[2022-08-18] MEDS: Dicyclomine 10 MG Capsule PO ×2 (06:08→11:55)
[2022-08-18] MEDS: Sucralfate 1 GM Tablet PO ×4 (06:08→22:24)
[2022-08-18 06:17] LABS: Absolute Lymphocyte Count 3.91 X10^3/uL (0.83-4.51); Absolute Neutrophil Count 3.1 X10^3/uL (2.0-7.7); Basophil# 0.11 X10^3/uL; Eosinophil# 1.39 X10^3/uL; Eosinophils% 12.5 % (0-5); Hemoglobin 12.5 g/dL (12.0-15.0); Lymphocyte # 3.91 X10^3/ul (0.83-4.51); Lymphocyte % 35.2 % (19-41); Mean Corp Hgb Conc 31.3 g/dL (32-36); Mean Corpuscular Hgb 29.9 pg (27.0-32.0); Mean Corpuscular Volume 95.7 fL (81-99); Mean Platelet Vol. 10.5 fl (6.2-12.0); Monocyte# 2.28 X10^3/uL; Monocyte% 20.5 % (0-10); NRBC Flagged by Analyzer 0.2 % (0-5); Neutrophil # 3.05 X10^3/uL (2.7-7.7); Neutrophil % 27.4 % (47-70); POSITIVE DIFFERENTIAL YES; POSITIVE MORPHOLOGY YES; Platelet Count 302 K/mm3 (150-450); RBC Distribution Width CV 12.4 % (11.6-14.6); RBC Distribution Width SD 43.2 fl (35.1-43.9); Red Blood Count 4.18 M/mm3 (4.2-5.4); White Blood Count 11.1 K/mm3 (4.4-11.0)
[2022-08-18 06:23] LABS: Bedside Glucose 79 mg/dL (74-106)
[2022-08-18 06:36] LABS: Differential Indicated SCAN CRITERIA MET
[2022-08-18 06:38] LABS: Differential Comment SCANNED
[2022-08-18 06:48] LABS: ALB/GLOB Ratio 0.6 RATIO (0.9-2.4); AST(SGOT) 14 U/L (15-37); Alanine Aminotransfer ALT/SGPT 13 U/L (13-56); Alkaline Phosphatase 78 U/L (45-117); Anion Gap 7 (5-15); BUN 22 mg/dL (7-18); BUN/Creat Ratio 12.2 RATIO (10-20); Calcium,Total 7.5 mg/dL (8.5-10.1); Chloride 123 mmol/L (98-107); Creatinine, Serum 1.81 mg/dL (0.55-1.02); EST Glomerular Filtration Rate 30 mL/min (>60); Est Glom Filt Rate - Afr Amer 36 mL/min (>60); Estimated Creatinine Clearance 32.51 ml/min; Globulin 3.3 g/dL (2.2-4.2); Glucose 88 mg/dL (74-106); Protein, Total 5.3 g/dL (6.4-8.2); Sodium Level 146 mmol/L (136-145)
[2022-08-18] MEDS: Ferrous Sulfate 325 MG Tablet PO ×2 (07:03→16:48)
[2022-08-18 07:53] VITALS: O2SAT 99
[2022-08-18 08:00] VITALS: BP 147/65; PULSE 84; RESP 20; TEMP 36.8; O2SAT 97
[2022-08-18] MEDS: Potassium Chloride Oral Tablet 20 MEQ 40 MEQ PO (08:45)
[2022-08-18] MEDS: Menthol/Lanolin/Calamine/Znox 113 GM Tube 1 APPLIC TOPICAL ×4 (08:45→22:24)
[2022-08-18] MEDS: Heparin Injection (Vial) 5,000 UNIT/ML VIAL 5000 UNIT SC ×2 (08:47→22:24)
[2022-08-18] MEDS: amLODIPine 2.5 MG Tablet PO (08:48)
[2022-08-18] MEDS: Nystatin Powder 15gm Bottle 1 APPLIC TOPICAL ×2 (08:48→22:23)
[2022-08-18] MEDS: Ciprofloxacin 250 MG Tablet PO (08:54)
--- NOTE | 2022-08-18 08:58 | PCM.PN.SRG ---
Subjective Subjective Patient reports worse diarrhea last night however overnight less diarrhea and still not much this morning. Patient still complains of some abdominal pain. Patient is still tolerating diet. Objective Data Objective Data Vital Signs: Vital Signs Temp Pulse Resp BP Pulse Ox O2 Del Method O2 Flow Rate 98.2 F 84 20 H 147/65 H 97 Room Air 1.5 08/18/22 08:00 08/18/22 08:00 08/18/22 08:00 08/18/22 08:00 08/18/22 08:00 08/18/22 08:00 08/16/22 13:31 FiO2 21 08/15/22 07:16 Oxygen Flow Rate (L/min) 1.5 Oxygen Delivery Method Room Air Weight: 334 lb 0.005 oz Body Mass Index (BMI) 50.8 Intake & Output: Intake and Output for Last 24 Hours 08/16/22 08/17/22 08/18/22 23:59 23:59 23:59 Intake Total 2622.51 / 2622.51 3528.25 / 3528.25 764.17 / 764.17 Output Total 850 / 1200 800 / 800 Balance 1772.51 / 1422.51 2728.25 / 2728.25 764.17 / 764.17 Lab / Micro Data Result Diagrams: 08/18/22 05:28 08/18/22 05:28 Labs: Laboratory Results - last 24 hr 08/16/22 05:40: Lipase 23 08/17/22 06:40: Differential Comment SCANNED, Reactive Lymphocytes 1+ 08/17/22 11:28: POC Glucose 78 08/17/22 17:27: POC Glucose 90 08/17/22 21:30: POC Glucose 95 08/18/22 05:28: WBC 11.1 H, RBC 4.18 L, Hgb 12.5, Hct 40.0, MCV 95.7, MCH 29.9, MCHC 31.3 L, RDW Std Deviation 43.2, RDW Coeff of Amirah 12.4, Plt Count 302, MPV 10.5, Immature Gran % (Auto) 3.400 H, Neut % (Auto) 27.4 L, Lymph % (Auto) 35.2, [place]son % (Auto) 20.5 H, Eos % (Auto) 12.5 H, Baso % (Auto) 1.0, Absolute Neuts (auto) 3.1, Absolute Lymphs (auto) 3.91, Nucleated RBC % 0.2, Differential Comment SCANNED, Diff Path Review June08/18/22 05:28: Sodium 146 H, Potassium 3.0 L, Chloride 123 H, Carbon Dioxide 16.0 L, Anion Gap 7, BUN 22 H, Creatinine 1.81 H, Estim Creat Clear Calc 32.51, Est GFR (MDRD) Af Amer 36 L, Est GFR (MDRD) Non-Af 30 L, BUN/Creatinine Ratio 12.2, Glucose 88, Calcium 7.5 L, Total Bilirubin 0.30, AST 14 L, ALT 13, Alkaline Phosphatase 78, Total Protein 5.3 L, Albumin 2.0 L, Globulin 3.3, Albumin/Globulin Ratio 0.6 L 08/18/22 05:35: POC Glucose 79 Micro: Microbiology 08/15/22 15:31 Blood Culture (Wb) - Anticubital Right Blood Culture - Preliminary No growth in 48 hours. 08/15/22 14:59 Blood Culture (Wb) - Anticubital Right Blood Culture - Preliminary No growth in 48 hours. 08/14/22 19:38 Urine, Catheterized Urine Culture - Final Escherichia coli Escherichia coli#2 08/14/22 19:38 Stool Stool Lactoferrin - Final 08/14/22 19:38 Stool Enteric Bacteriology - Final 08/14/22 19:38 Stool C. difficile DNA Amplification - Final Physical Exam Const oriented x3 and no apparent distress Resp normal respiratory effort Cardio regular rate GI soft to palpation GI Narrative: Tender in epigastric and right upper quadrant-improved from yesterday. No peritoneal signs Assessment & Plan Assessment/Plan (1) LUQ pain: (2) Epigastric abdominal pain: (3) Acute renal failure: (4) Asymptomatic bacteriuria: (5) Gastroenteritis: PLAN: Plan Continue IV Protonix as well as Carafate. Do not think that a CT abdomen pelvis at this time will add anything currently and I will also give her diarrhea she will get p.o. contrast. We will continue to follow patient. Raysa Knox M.D. Pager: [phone] [facility] [address] [place] [address], Outpatient Pavilion, [address] [place] [address] Office: [phone] Charges/Coding Visit Charges Inpatient E&M: 36844 Subs Hosp L2
[2022-08-18 11:56] LABS: Bedside Glucose 86 mg/dL (74-106)
[2022-08-18 14:00] VITALS: BP 155/71; PULSE 92; RESP 18; TEMP 36.8; O2SAT 100
[2022-08-18] MEDS: Dicyclomine 10 MG Capsule 20 MG PO (15:37)
[2022-08-18] MEDS: Loperamide 2 MG Capsule 4 MG PO ×2 (15:37→22:23)
[2022-08-18 17:09] LABS: Bedside Glucose 106 mg/dL (74-106)
--- NOTE | 2022-08-18 17:23 | PCM.PN.HOSP ---
Reason for Visit Reason for Visit: Diagnoses Morbid (severe) obesity with alveolar hypoventilation (08/14/22) Hypokalemia (08/14/22) Noninfective gastroenteritis and colitis, unspecified (08/14/22) Acute kidney failure, unspecified (08/14/22) Left upper quadrant pain (08/14/22) Epigastric pain (08/14/22) Bacteriuria (08/14/22) Personal history of other endocrine, nutritional and metabolic disease (08/14/22) Subjective Subjective Patient was seen and examined today, she still having diarrhea, I have elected to program her Imodium and increase her Bentyl, I talked briefly with her son about her medical care today. Objective Data Objective Data Vital Signs: Vital Signs Temp Pulse Resp BP Pulse Ox O2 Del Method O2 Flow Rate 98.3 F 92 18 155/71 H 100 Room Air 1.5 08/18/22 14:00 08/18/22 14:00 08/18/22 14:00 08/18/22 14:00 08/18/22 14:00 08/18/22 14:00 08/16/22 13:31 FiO2 21 08/15/22 07:16 Oxygen Flow Rate (L/min) 1.5 Oxygen Delivery Method Room Air Weight: 151.5 kg Body Mass Index (BMI) 50.8 Intake & Output: Intake and Output for Last 24 Hours 08/16/22 08/17/22 08/18/22 23:59 23:59 23:59 Intake Total 2622.51 / 2622.51 3528.25 / 3528.25 1363.00 / 1363.00 Output Total 850 / 1200 800 / 800 Balance 1772.51 / 1422.51 2728.25 / 2728.25 1363.00 / 1363.00 Lab / Micro Data Result Diagrams: 08/18/22 05:28 08/18/22 05:28 Labs: Laboratory Results - last 24 hr 08/17/22 17:27: POC Glucose 90 08/17/22 21:30: POC Glucose 95 08/18/22 05:28: WBC 11.1 H, RBC 4.18 L, Hgb 12.5, Hct 40.0, MCV 95.7, MCH 29.9, MCHC 31.3 L, RDW Std Deviation 43.2, RDW Coeff of Amirah 12.4, Plt Count 302, MPV 10.5, Immature Gran % (Auto) 3.400 H, Neut % (Auto) 27.4 L, Lymph % (Auto) 35.2, [place] % (Auto) 20.5 H, Eos % (Auto) 12.5 H, Baso % (Auto) 1.0, Absolute Neuts (auto) 3.1, Absolute Lymphs (auto) 3.91, Nucleated RBC % 0.2, Differential Comment SCANNED, Diff Path Review June08/18/22 05:28: Sodium 146 H, Potassium 3.0 L, Chloride 123 H, Carbon Dioxide 16.0 L, Anion Gap 7, BUN 22 H, Creatinine 1.81 H, Estim Creat Clear Calc 32.51, Est GFR (MDRD) Af Amer 36 L, Est GFR (MDRD) Non-Af 30 L, BUN/Creatinine Ratio 12.2, Glucose 88, Calcium 7.5 L, Total Bilirubin 0.30, AST 14 L, ALT 13, Alkaline Phosphatase 78, Total Protein 5.3 L, Albumin 2.0 L, Globulin 3.3, Albumin/Globulin Ratio 0.6 L 08/18/22 05:35: POC Glucose 79 08/18/22 11:38: POC Glucose 86 08/18/22 16:46: POC Glucose 106 Micro: Microbiology 08/15/22 15:31 Blood Culture (Wb) - Anticubital Right Blood Culture - Preliminary No growth in 48 hours. 08/15/22 14:59 Blood Culture (Wb) - Anticubital Right Blood Culture - Preliminary No growth in 48 hours. 08/14/22 19:38 Urine, Catheterized Urine Culture - Final Escherichia coli Escherichia coli#2 08/14/22 19:38 Stool Stool Lactoferrin - Final 08/14/22 19:38 Stool Enteric Bacteriology - Final 08/14/22 19:38 Stool C. difficile DNA Amplification - Final Physical Exam Const alert, oriented x3 and no apparent distress Constitutional Narrative: Patient is morbidly obese General Appearance: cooperative, well kempt and well developed Orientation / Consciousness: awake, oriented to person, oriented to place and oriented to time HEENT normocephalic, head/scalp atraumatic and moist oral mucous membranes Eyes PERRL, EOMs intact bilaterally and conjunctivae normal Neck supple, no JVD, thyroid normal and no carotid bruits General: trachea midline Resp normal respiratory effort, no retractions, no use of accessory muscles and clear to auscultation bilaterally Auscultation: Negative for rales, rhonchi or wheezes Cardio regular rate, regular rhythm, S1 normal heart sound, S2 normal heart sound, no murmurs, no rub and no gallops GI normal to inspection, nondistended, normoactive bowel sounds, soft to palpation, non-tender and non-distended Extremity no clubbing, cyanosis or edema Skin no rashes or lesions noted General Skin Exam: no breakdown Neuro oriented x3, CN's II-XII intact bilaterally, moves all extremities, no focal motor deficits and no sensory deficits noted Sensorium / Orientation: awake, alert, oriented to person, oriented to place and oriented to time Speech: speech normal Psych affect normal Assessment & Plan Assessment/Plan (1) Diarrhea: PLAN: Plan 1. Acute diarrhea-etiology unclear at this point, could be secondary to recent Mounjaro usage, I have elected to increase patient's Bentyl and Imodium, continue on present diet #2 acute kidney injury on suspected chronic kidney disease stage IIIb-patient's creatinine today was 1.81, nephrology is participating in her care, her baseline kidney function appears to be similar to today's reading. #3 morbid obesity-complicates care, medical course, recovery, and prognosis #4 essential hypertension-patient will remain on present medication #5 type 2 diabetes-patient will remain on sliding scale insulin, coverage per fingerstick blood sugars #6 acute debility secondary to diarrhea-PT and OT are working with the patient, she will be reevaluated tomorrow #7 hypokalemia-patient was given oral potassium today #8 bacteriuria without evidence of cystitis-patient is no longer on antibiotics Total clinical time spent by myself addressing patient's medical issues, reviewing all of her data, and collaborating with patient's care team: 35 minutes Charges/Coding Visit Charges Inpatient E&M: 67970 Subs Hosp L2
[2022-08-18 22:00] VITALS: BP 140/60; PULSE 94; RESP 16; TEMP 37.1; O2SAT 100
[2022-08-18] MEDS: LORazepam 1 MG Tablet PO (22:23)
[2022-08-18] MEDS: DiphenhydrAMINE 25 MG Capsule 50 MG PO (22:23)
[2022-08-18 22:46] LABS: Bedside Glucose 90 mg/dL (74-106)
[2022-08-19] MEDS: Loperamide 2 MG Capsule 4 MG PO ×3 (03:39→14:13)
[2022-08-19 03:43] VITALS: BP 156/74; PULSE 87; RESP 18; TEMP 36.8; O2SAT 98
[2022-08-19 05:57] LABS: Hematocrit 36.4 % (37-47); Hemoglobin 11.6 g/dL (12.0-15.0); Mean Corp Hgb Conc 31.9 g/dL (32-36); Mean Corpuscular Hgb 30.2 pg (27.0-32.0); Mean Corpuscular Volume 94.8 fL (81-99); Mean Platelet Vol. 10.5 fl (6.2-12.0); POSITIVE DIFFERENTIAL YES; POSITIVE MORPHOLOGY YES; Platelet Count 249 K/mm3 (150-450); RBC Distribution Width CV 12.6 % (11.6-14.6); RBC Distribution Width SD 43.8 fl (35.1-43.9); Red Blood Count 3.84 M/mm3 (4.2-5.4); White Blood Count 16.5 K/mm3 (4.4-11.0)
[2022-08-19] MEDS: Dicyclomine 10 MG Capsule 20 MG PO ×2 (06:00→11:45)
[2022-08-19] MEDS: Sucralfate 1 GM Tablet PO ×2 (06:00→11:45)
[2022-08-19 06:05] LABS: Bedside Glucose 82 mg/dL (74-106)
[2022-08-19] MEDS: Lactated Ringers 1,000 ML 70 ML IV (06:10)
[2022-08-19 06:29] LABS: ALB/GLOB Ratio 0.6 RATIO (0.9-2.4); AST(SGOT) 17 U/L (15-37); Alanine Aminotransfer ALT/SGPT 17 U/L (13-56); Albumin, Serum 2.1 g/dL (3.2-5.0); Alkaline Phosphatase 86 U/L (45-117); Anion Gap 5 (5-15); BUN 18 mg/dL (7-18); BUN/Creat Ratio 10.8 RATIO (10-20); Calcium,Total 7.8 mg/dL (8.5-10.1); Chloride 124 mmol/L (98-107); Creatinine, Serum 1.67 mg/dL (0.55-1.02); EST Glomerular Filtration Rate 33 mL/min (>60); Est Glom Filt Rate - Afr Amer 40 mL/min (>60); Estimated Creatinine Clearance 35.23 ml/min; Globulin 3.6 g/dL (2.2-4.2); Glucose 86 mg/dL (74-106); Potassium 2.9 mmol/L (3.5-5.1); Protein, Total 5.7 g/dL (6.4-8.2); Sodium Level 144 mmol/L (136-145)
[2022-08-19 06:39] LABS: Differential Indicated MANUAL DIFF
[2022-08-19 06:40] LABS: Platelet Estimate ADEQUATE (ADEQ); Red Cell Morphology NORM C+C NORMAL (NORM C&C)
[2022-08-19 06:44] LABS: Absolute Lymphocyte Count 3.96 X10^3/uL (0.83-4.51); Absolute Neutrophil Count 6.6 X10^3/uL (2.0-7.7); Lymphocyte 24 % (19-41); Myelocyte 3 % (0-0); Neutrophil-Band 10 % (0-5); Neutrophil-Segmented 30 % (47-70); Total Cells Counted 100 (MANUAL DIFF)
[2022-08-19 06:45] LABS: Atypical Lymphocyte 1+ %; Eosinophil 17 % (0-5); Monocyte 16 % (0-10)
[2022-08-19] MEDS: Potassium Chloride Oral Tablet 20 MEQ 60 MEQ PO (08:14)
[2022-08-19] MEDS: Ferrous Sulfate 325 MG Tablet PO (08:15)
--- NOTE | 2022-08-19 09:20 | PN.RENAL_ITS ---
Subjective Subjective Following for LORNE Patient is resting in bed. No overnight events. Reports feeling better overall. Reports no abdominal pain this morning. Objective Data Objective Data Vital Signs: Vital Signs Temp Pulse Resp BP Pulse Ox O2 Del Method O2 Flow Rate 98.2 F 87 18 156/74 H 98 CPAP 1.5 08/19/22 03:43 08/19/22 03:43 08/19/22 03:43 08/19/22 03:43 08/19/22 03:43 08/19/22 03:43 08/16/22 13:31 FiO2 21 08/15/22 07:16 Oxygen Flow Rate (L/min) 1.5 Oxygen Delivery Method CPAP Weight: 151.5 kg Body Mass Index (BMI) 50.8 Intake & Output: Intake and Output for Last 24 Hours 08/17/22 08/18/22 08/19/22 23:59 23:59 23:59 Intake Total 3528.25 / 3528.25 1473.00 / 1473.00 1000 / 1000 Output Total 800 / 800 Balance 2728.25 / 2728.25 1473.00 / 1473.00 1000 / 1000 Lab / Micro Data Result Diagrams: 08/19/22 05:27 08/19/22 05:27 Labs: Laboratory Results - last 24 hr 08/18/22 11:38: POC Glucose 86 08/18/22 16:46: POC Glucose 106 08/18/22 22:28: POC Glucose 90 08/19/22 05:27: WBC 16.5 H, RBC 3.84 L, Hgb 11.6 L, Hct 36.4 L, MCV 94.8, MCH 30.2, MCHC 31.9 L, RDW Std Deviation 43.8, RDW Coeff of Amirah 12.6, Plt Count 249, MPV 10.5, Neut % (Auto) Not Reportable, Absolute Neuts (auto) 6.6, Absolute Lymphs (auto) 3.96, Total Counted 100, Neutrophils % (Manual) 30 L, Band Neutrophils % 10 H, Lymphocytes % (Manual) 24, Monocytes % (Manual) 16 H, Eosinophils % (Manual) 17 H, Myelocytes % 3 H, Diff Path Review May foll, Atypical Lymphocytes 1+, Platelet Estimate ADEQUATE, RBC Morphology NORM C+C 08/19/22 05:27: Sodium 144, Potassium 2.9 L, Chloride 124 H, Carbon Dioxide 15.0 L, Anion Gap 5, BUN 18, Creatinine 1.67 H, Estim Creat Clear Calc 35.23, Est GFR (MDRD) Af Amer 40 L, Est GFR (MDRD) Non-Af 33 L, BUN/Creatinine Ratio 10.8, Glucose 86, Calcium 7.8 L, Total Bilirubin 0.40, AST 17, ALT 17, Alkaline Phosphatase 86, Total Protein 5.7 L, Albumin 2.1 L, Globulin 3.6, Albumin/Globulin Ratio 0.6 L 08/19/22 05:48: POC Glucose 82 Micro: Microbiology 08/15/22 15:31 Blood Culture (Wb) - Anticubital Right Blood Culture - Preliminary No growth in 48 hours. 08/15/22 14:59 Blood Culture (Wb) - Anticubital Right Blood Culture - Preliminary No growth in 48 hours. 08/14/22 19:38 Urine, Catheterized Urine Culture - Final Escherichia coli Escherichia coli#2 08/14/22 19:38 Stool Stool Lactoferrin - Final 08/14/22 19:38 Stool Enteric Bacteriology - Final 08/14/22 19:38 Stool C. difficile DNA Amplification - Final Physical Exam Narrative Alert and oriented x3, no apparent distress S1, S2, RRR Lung sounds clear anteriorly and posteriorly. No wheezes rhonchi rales noted Abdomen soft, nontender, positive bowel sounds No edema Indwelling Thrasher with clear urine in bag Cardio regular rate Assessment & Plan Assessment/Plan (1) Acute renal failure: PLAN: This is a 61 F with past history significant for diabetes mellitus type 2, hypertension, obesity, HONEY on home CPAP who presented to the emergency room 08/14 with complaints of fatigue and diarrhea after starting Mounjaro (had been having diarrhea/nausea/weight loss for well over a week).? Lab work in the emergency room showed creatinine 3.06 mg/dL, potassium 3.4.? Patient was admitted for gastroenteritis and LORNE.? Nephrology consulted for acute kidney injury.? Patient is known to our group from hospital consultation in October 2021 for LORNE and hyperkalemia (K+ 8.8).? Patient has never required any HARDBOARD PANEL PRINTER.? - LORNE likely secondary to significant intravascular volume depletion with concurrent ARB, diuretic and NSAID use. Also to note patient hypotensive on admission which could also be contributing to LORNE leading to ATN.? Serum creatinine 3.06 mg/dL on admission--> peaked 3.71 mg/dL--> today serum creatinine 1.67mg/dL.? No acute indication for HARDBOARD PANEL PRINTER, no significant hyperkalemia or acidosis necessitating HARDBOARD PANEL PRINTER.? Patient was hypovolemic and hypotensive on admission, started on IV fluids and received multiple fluid boluses.? Overall volume status has improved.? Blood pressure has improved.? Recommend continue holding losartan and Lasix.? Recommend no NSAIDs, discussed this with patient.? Renal ultrasound no hydronephrosis. UA on admission positive nitrite, leukocyte Estrace, 10 occult blood, urine protein 100.? Urine sodium was 6.? Urine protein creatinine ratio 412 mg/g. Can stop IV fluids when okay with primary team. -? Patient quite possibly has CKD stage III.? November 20, 2021 creatinine 1.77 mg/dL, 08/12/2022 creatinine 1.49 mg/dL.? We will follow serum creatinine trajectory.? We will also arrange for hospital follow-up at [place] office. - Metabolic acidosis likely secondary to severe diarrhea and LORNE. -Hypokalemia likely from severe diarrhea and lack of potassium rich foods, K-Dur ordered. Repeat labs in a.m. -Acute diarrhea, etiology unclear at this time. C. difficile negative. On Bentyl and Imodium. On PPI.
[2022-08-19] MEDS: amLODIPine 2.5 MG Tablet PO (09:46)
[2022-08-19] MEDS: Nystatin Powder 15gm Bottle 1 APPLIC TOPICAL (09:47)
[2022-08-19] MEDS: Menthol/Lanolin/Calamine/Znox 113 GM Tube 1 APPLIC TOPICAL ×2 (09:52→14:13)
[2022-08-19] MEDS: Heparin Injection (Vial) 5,000 UNIT/ML VIAL 5000 UNIT SC (09:52)
[2022-08-19 10:00] VITALS: BP 147/72; PULSE 74; RESP 18; TEMP 37.1; O2SAT 98
[2022-08-19 11:20] VITALS: O2SAT 98
--- NOTE | 2022-08-19 11:20 | CPS ---
Patient with 2L bleed in through own CPAP
[2022-08-19 11:33] LABS: Bedside Glucose 95 mg/dL (74-106)
--- NOTE | 2022-08-19 12:25 | PN.SURG_ITS ---
Subjective Subjective Patient still tolerating diet, denies abdominal pain when asked Objective Data Objective Data Vital Signs: Vital Signs Temp Pulse Resp BP Pulse Ox O2 Del Method O2 Flow Rate 98.8 F 74 18 147/72 H 98 Room Air 1.5 08/19/22 10:00 08/19/22 10:00 08/19/22 10:00 08/19/22 10:00 08/19/22 11:20 08/19/22 11:20 08/16/22 13:31 FiO2 21 08/15/22 07:16 Oxygen Flow Rate (L/min) 1.5 Oxygen Delivery Method Room Air Weight: 334 lb 0.005 oz Body Mass Index (BMI) 50.8 Intake & Output: Intake and Output for Last 24 Hours 08/17/22 08/18/22 08/19/22 23:59 23:59 23:59 Intake Total 3528.25 / 3528.25 1473.00 / 1473.00 1760 / 1760 Output Total 800 / 800 150 / 150 Balance 2728.25 / 2728.25 1473.00 / 1473.00 1610 / 1610 Lab / Micro Data Result Diagrams: 08/19/22 05:27 08/19/22 05:27 Labs: Laboratory Results - last 24 hr 08/18/22 16:46: POC Glucose 106 08/18/22 22:28: POC Glucose 90 08/19/22 05:27: WBC 16.5 H, RBC 3.84 L, Hgb 11.6 L, Hct 36.4 L, MCV 94.8, MCH 30.2, MCHC 31.9 L, RDW Std Deviation 43.8, RDW Coeff of Amirah 12.6, Plt Count 249, MPV 10.5, Neut % (Auto) Not Reportable, Absolute Neuts (auto) 6.6, Absolute Lym phs (auto) 3.96, Total Counted 100, Neutrophils % (Manual) 30 L, Band Neutrophils % 10 H, Lymphocytes % (Manual) 24, Monocytes % (Manual) 16 H, Eosinophils % (Manual) 17 H, Myelocytes % 3 H, Diff Path Review May foll, Atypical Lymphocytes 1+, Platelet Estimate ADEQUATE, RBC Morphology NORM C+C 08/19/22 05:27: Sodium 144, Potassium 2.9 L, Chloride 124 H, Carbon Dioxide 15.0 L, Anion Gap 5, BUN 18, Creatinine 1.67 H, Estim Creat Clear Calc 35.23, Est GFR (MDRD) Af Amer 40 L, Est GFR (MDRD) Non-Af 33 L, BUN/Creatinine Ratio 10.8, Glucose 86, Calcium 7.8 L, Total Bilirubin 0.40, AST 17, ALT 17, Alkaline Phosphatase 86, Total Protein 5.7 L, Albumin 2.1 L, Globulin 3.6, Albumin/Globulin Ratio 0.6 L 08/19/22 05:48: POC Glucose 82 08/19/22 11:13: POC Glucose 95 Micro: Microbiology 08/15/22 15:31 Blood Culture (Wb) - Anticubital Right Blood Culture - Preliminary No growth in 48 hours. 08/15/22 14:59 Blood Culture (Wb) - Anticubital Right Blood Culture - Preliminary No growth in 48 hours. 08/14/22 19:38 Urine, Catheterized Urine Culture - Final Escherichia coli Escherichia coli#2 08/14/22 19:38 Stool Stool Lactoferrin - Final 08/14/22 19:38 Stool Enteric Bacteriology - Final 08/14/22 19:38 Stool C. difficile DNA Amplification - Final Physical Exam Const oriented x3 and no apparent distress Resp normal respiratory effort Cardio regular rate GI soft to palpation GI Narrative: Minimal tender in epigastric -improved from yesterday. No peritoneal signs Assessment & Plan Assessment/Plan (1) LUQ pain: (2) Epigastric abdominal pain: (3) Acute renal failure: (4) Asymptomatic bacteriuria: (5) Gastroenteritis: PLAN: Plan Continue IV Protonix as well as Carafate. Patient states abdominal pain is improved. At [place] would send patient patient home with Carafate x1 month 4 times daily. And continue on her Protonix. Leukocytosis?unsure etiology. Patient's abdominal exam at this time does not warrant a CT. Patient is agreeable with plan. Will sign off-- call with questions. Raysa Knox M.D. Pager: [phone] [facility] [address] [place] [address], Outpatient Pavilion, [address] [place] [address] Office: [phone] Charges/Coding Visit Charges Inpatient E&M: 70274 Subs Hosp L2
[2022-08-19 12:58] LABS: Pathologist Review Reviewed
[2022-08-19 13:02] LABS: Pathologist Review Reviewed
--- NOTE | 2022-08-19 13:17 | CASEMGMT ---
SHELBY CM into pt room, pt states she is ready to go home and is still declining any home services. Pt denies any further needs.
[2022-08-19 14:15] VITALS: BP 151/65; PULSE 80; RESP 18; TEMP 37; O2SAT 98
--- NOTE | 2022-08-19 15:25 | DCINST_ITS ---
Discharge Instructions Diet Discharge Diet: 1800 Calorie Control Diet Activity Discharge Activity: Return to Normal Activity Weight Bearing Status: Full weight bearing Follow Up Care Test Results: Test results from this visit will be discussed in further detail at your follow- up appointment, if applicable. Discharge Plan Admission Admit Date/Time: 08/14/22 21:00 Primary Reason for Your Visit: kidney injury, diarrhea Attending Provider: Jim Pizarro Primary Care Provider: Silvia Tolbert Consulting Providers: Sam Perez ; Ammy Agarwal ; Lisa Mendoza ; Raysa Knox ; Winter Hamm Instructions Additional Instructions / Restrictions: You may take Imodium 2 every 6 hours as needed for diarrhea, resume your previous insulin coverage per home glucose readings Discharge Orders/Prescriptions Prescriptions: New dicyclomine 10 mg Capsule 20 mg PO TIDAC Qty: 21 0RF potassium chloride [Klor-Con M20] 20 mEq Tablet,Er Particles/Crystals 20 meq PO BIDCM Qty: 14 0RF Continued losartan 50 mg tablet 50 mg PO DAILY fluticasone propionate 50 mcg/actuation spray,suspension 2 spray NASAL DAILY PRN (Reason: Sinus Symptoms) Qty: 16 6RF albuterol sulfate [Ventolin HFA] 90 mcg/actuation HFA aerosol inhaler 2 puff inhalation Q4H PRN (Reason: shortness of breath or wheezing) Qty: 18 6RF albuterol sulfate 2.5 MG/3 ML solution for nebulization 2.5 mg inhalation Q6HWA.RT PRN (Reason: Asthma) Label Comments: ASTHMA acetaminophen [Tylenol] 325 mg Tablet 650 mg PO Q6H PRN PRN (Reason: Pain Score 1-10/Temp > 100.7 F) Qty: 0 0RF ascorbic acid (vitamin C) 500 mg Tablet 500 mg PO BIDCM Qty: 0 0RF ferrous sulfate [FeroSul] 325 mg (65 mg iron) Tablet 325 mg PO BIDCM Qty: 0 0RF omeprazole 40 mg Capsule,Delayed Release(Dr/Ec) 40 mg PO DAILY diclofenac sodium 1 % Gel 1 ea TOPICAL PRN PRN (Reason: Pain) lorazepam 1 mg Tablet 1 mg PO BID PRN PRN (Reason: Anxiety) Qty: 5 0RF acetaminophen [Tylenol] 325 mg Tablet 650 mg PO Q4H PRN PRN (Reason: Fever, pain 1-12/03) Qty: 0 0RF ondansetron HCl 4 mg tablet 4 mg PO PRN PRN (Reason: Nausea) Discontinued furosemide [Lasix] 40 mg tablet 40 mg PO DAILY Qty: 1 0RF Rx Instructions: start on 11/23/21 Referrals / Follow Up: Silvia Tolbert MD [Primary Care Provider] - See Referral Note (On Friday or of this week, you will need a BMP drawn) Disposition Disposition (needs filled in before D/C Order can be placed): Home, Self Care
--- NOTE | 2022-08-19 15:29 | DS.PCM_ITS ---
Providers Date of Admission: 08/14/22 Primary Care Physician: Dr. Silvia Tolbert MD Consultations 08/15/22 13:06 Consult: Nephrology Routine Consulting Provider: Ammy Agarwal Reason for Consult: worsening kidney failure EMERGENT Consult: No Notified: Yes Date Notified: 08/15/22 Time Notified: 14:07 Method of Notification: Answering Service 08/17/22 09:10 Consult: General Surgery Routine Consulting Provider: Raysa Knox Reason for Consult: Abdominal pain, diarrhea EMERGENT Consult: No MD Notified: Yes Date Notified: 08/17/22 Time Notified: 09:10 Method of Notification: Verbal Reason For Visit: ACUTE DIARRHEA, LORNE Diagnosis Discharge Diagnosis (1) LUQ pain: Status: Acute Code(s): R10.12 - Left upper quadrant pain (2) Epigastric abdominal pain: Status: Acute Code(s): R10.13 - Epigastric pain (3) Acute renal failure: Status: Acute Code(s): N17.9 - Acute kidney failure, unspecified (4) Asymptomatic bacteriuria: Status: Acute Code(s): R82.71 - Bacteriuria (5) Gastroenteritis: Status: Acute Code(s): K52.9 - Noninfective gastroenteritis and colitis, unspecified Plan 1. Acute diarrhea-etiology unclear at this point, could be secondary to recent Mounjaro usage, I have elected to increase patient's Bentyl and Imodium, continue on present diet #2 acute kidney injury on suspected chronic kidney disease stage IIIb-patient's creatinine today was 1.81, nephrology is participating in her care, her baseline kidney function appears to be similar to today's reading. #3 morbid obesity-complicates care, medical course, recovery, and prognosis #4 essential hypertension-patient will remain on present medication #5 type 2 diabetes-patient will remain on sliding scale insulin, coverage per fingerstick blood sugars #6 acute debility secondary to diarrhea-PT and OT are working with the patient, she will be reevaluated tomorrow #7 hypokalemia-patient was given oral potassium today #8 bacteriuria without evidence of cystitis-patient is no longer on antibiotics Total clinical time spent by myself addressing patient's medical issues, reviewing all of her data, and collaborating with patient's care team: 35 minutes Medications at Discharge Home Medications albuterol sulfate 2.5 mg/3 mL (0.083 %) solution for nebulization 2.5 mg inhalat ion Q6HWA.RT PRN Asthma 11/23/12 acetaminophen 325 mg tablet (Tylenol) 650 mg PO Q6H PRN PRN Pain Score 1-10/Temp > 100.7 F #0 tabs 08/15/21 ascorbic acid (vitamin C) 500 mg tablet 500 mg PO BIDCM #0 tabs 08/15/21 ferrous sulfate 325 mg (65 mg iron) tablet (FeroSul) 325 mg PO BIDCM #0 tabs 08/15/21 diclofenac sodium 1 % topical gel 1 ea topical PRN PRN Pain 11/18/21 omeprazole 40 mg capsule,delayed release 40 mg PO DAILY 11/18/21 acetaminophen 325 mg tablet (Tylenol) 650 mg PO Q4H PRN PRN Fever, pain 1-10/10 #0 tabs 11/20/21 furosemide 40 mg tablet (Lasix) 40 mg PO DAILY #1 TAB 11/20/21 lorazepam 1 mg tablet 1 mg PO BID PRN PRN Anxiety #5 tabs 11/20/21 albuterol sulfate 90 mcg/actuation aerosol inhaler (Ventolin HFA) 2 puff inhalation Q4H PRN shortness of breath or wheezing #18 grams 01/30/22 fluticasone propionate 50 mcg/actuation nasal spray,suspension 2 spray DAILY PRN Sinus Symptoms #16 grams 01/30/22 losartan 50 mg tablet 50 mg PO DAILY 01/30/22 ondansetron HCl 4 mg tablet 4 mg PO PRN PRN Nausea 08/14/22 Weight / BMI Weight Weight: 151.5 kg Body Mass Index (BMI) 50.8 ABG / Lab / Microbiology Data Result Diagrams: 08/19/22 05:27 08/19/22 05:27 Laboratory: Laboratory Results - last 24 hr 08/18/22 05:28: Diff Path Review Reviewed 08/18/22 16:46: POC Glucose 106 08/18/22 22:28: POC Glucose 90 08/19/22 05:27: WBC 16.5 H, RBC 3.84 L, Hgb 11.6 L, Hct 36.4 L, MCV 94.8, MCH 30.2, MCHC 31.9 L, RDW Std Deviation 43.8, RDW Coeff of Amirah 12.6, Plt Count 249, MPV 10.5, Neut % (Auto) Not Reportable, Absolute Neuts (auto) 6.6, Absolute Lymphs (auto) 3.96, Total Counted 100, Neutrophils % (Manual) 30 L, Band Neutrophils % 10 H, Lymphocytes % (Manual) 24, Monocytes % (Manual) 16 H, Eosinophils % (Manual) 17 H, Myelocytes % 3 H, Diff Path Review Reviewed, Atypical Lymphocytes 1+, Platelet Estimate ADEQUATE, RBC Morphology NORM C+C 08/19/22 05:27: Sodium 144, Potassium 2.9 L, Chloride 124 H, Carbon Dioxide 15.0 L, Anion Gap 5, BUN 18, Creatinine 1.67 H, Estim Creat Clear Calc 35.23, Est GFR (MDRD) Af Amer 40 L, Est GFR (MDRD) Non-Af 33 L, BUN/Creatinine Ratio 10.8, Glucose 86, Calcium 7.8 L, Total Bilirubin 0.40, AST 17, ALT 17, Alkaline Phosphatase 86, Total Protein 5.7 L, Albumin 2.1 L, Globulin 3.6, Albumin/Globulin Ratio 0.6 L 08/19/22 05:48: POC Glucose 82 08/19/22 11:13: POC Glucose 95 Microbiology: Microbiology 08/15/22 15:31 Blood Culture (Wb) - Anticubital Right Blood Culture - Preliminary No growth in 48 hours. 08/15/22 14:59 Blood Culture (Wb) - Anticubital Right Blood Culture - Preliminary No growth in 48 hours. 08/14/22 19:38 Urine, Catheterized Urine Culture - Final Escherichia coli Escherichia coli#2 08/14/22 19:38 Stool Stool Lactoferrin - Final 08/14/22 19:38 Stool Enteric Bacteriology - Final 08/14/22 19:38 Stool C. difficile DNA Amplification - Final D/C Instructions Discharge Diet: 1800 Calorie Control Diet Weight Bearing Status: Full weight bearing Discharge Plan Admission Admit Date/Time: 08/14/22 21:00 Attending Provider: Jim Pizarro Primary Care Provider: Silvia Tolbert Consulting Providers: Sam Perez ; Ammy Agarwal ; Lisa Mendoza ; Raysa Knox ; Winter Hamm Discharge Orders/Prescriptions Prescriptions: No Action losartan 50 mg tablet 50 mg PO DAILY fluticasone propionate 50 mcg/actuation spray,suspension 2 spray NASAL DAILY PRN (Reason: Sinus Symptoms) Qty: 16 6RF albuterol sulfate [Ventolin HFA] 90 mcg/actuation HFA aerosol inhaler 2 puff inhalation Q4H PRN (Reason: shortness of breath or wheezing) Qty: 18 6RF albuterol sulfate 2.5 MG/3 ML solution for nebulization 2.5 mg inhalation Q6HWA.RT PRN (Reason: Asthma) Label Comments: ASTHMA acetaminophen [Tylenol] 325 mg Tablet 650 mg PO Q6H PRN PRN (Reason: Pain Score 1-10/Temp > 100.7 F) Qty: 0 0RF ascorbic acid (vitamin C) 500 mg Tablet 500 mg PO BIDCM Qty: 0 0RF ferrous sulfate [FeroSul] 325 mg (65 mg iron) Tablet 325 mg PO BIDCM Qty: 0 0RF omeprazole 40 mg Capsule,Delayed Release(Dr/Ec) 40 mg PO DAILY diclofenac sodium 1 % Gel 1 ea TOPICAL PRN PRN (Reason: Pain) lorazepam 1 mg Tablet 1 mg PO BID PRN PRN (Reason: Anxiety) Qty: 5 0RF acetaminophen [Tylenol] 325 mg Tablet 650 mg PO Q4H PRN PRN (Reason: Fever, pain 1-10/10) Qty: 0 0RF furosemide [Lasix] 40 mg tablet 40 mg PO DAILY Qty: 1 0RF Rx Instructions: start on 11/23/21 ondansetron HCl 4 mg tablet 4 mg PO PRN PRN (Reason: Nausea) Referrals / Follow Up: Siliva Tolbert MD [Primary Care Provider] -
[2022-08-19 16:09] LABS: Dopamine, Pl 183 pg/mL (0-48); Epinephrine, Pl <15 pg/mL (0-62); Norepinephrine, Pl 1779 pg/mL (0-874)
--- NOTE | 2022-08-19 16:12 | DS.PCM_ITS ---
Providers Date of Admission: 08/14/22 Date of Discharge: 08/19/22 Primary Care Physician: Dr. Silvia Tolbert MD Consultations 08/15/22 13:06 Consult: Nephrology Routine Consulting Provider: Ammy Agarwal Reason for Consult: worsening kidney failure EMERGENT Consult: No Notified: Yes Date Notified: 08/15/22 Time Notified: 14:07 Method of Notification: Answering Service 08/17/22 09:10 Consult: General Surgery Routine Consulting Provider: Raysa Knox Reason for Consult: Abdominal pain, diarrhea EMERGENT Consult: No Notified: Yes Date Notified: 08/17/22 Time Notified: 09:10 Method of Notification: Verbal Reason For Visit: ACUTE DIARRHEA, LORNE Diagnosis Discharge Diagnosis (1) LUQ pain: Status: Acute Code(s): R10.12 - Left upper quadrant pain (2) Epigastric abdominal pain: Status: Acute Code(s): R10.13 - Epigastric pain (3) Acute renal failure: Status: Acute Code(s): N17.9 - Acute kidney failure, unspecified (4) Asymptomatic bacteriuria: Status: Acute Code(s): R82.71 - Bacteriuria (5) Gastroenteritis: Status: Acute Code(s): K52.9 - Noninfective gastroenteritis and colitis, unspecified Plan 1. Acute diarrhea-etiology unclear at this point, could be secondary to recent Mounjaro usage #2 acute kidney injury on suspected chronic kidney disease stage IIIb-patient's creatinine today was 1.81, nephrology is participating in her care, her baseline kidney function appears to be similar to today's reading. #3 morbid obesity-complicates care, medical course, recovery, and prognosis #4 essential hypertension-patient will remain on present medication #5 type 2 diabetes-patient will remain on sliding scale insulin, coverage per fingerstick blood sugars #6 acute debility secondary to diarrhea-PT and OT are working with the patient, she will be reevaluated tomorrow #7 hypokalemia-patient was given oral potassium today #8 bacteriuria without evidence of cystitis-patient is no longer on antibiotics Medications at Discharge Home Medications albuterol sulfate 2.5 mg/3 mL (0.083 %) solution for nebulization 2.5 mg inhalation Q6HWA.RT PRN Asthma 11/23/12 acetaminophen 325 mg tablet (Tylenol) 650 mg (2 x 325 mg) PO Q6H PRN PRN Pain Score 1-10/Temp > 100.7 F #0 tabs 08/15/21 ascorbic acid (vitamin C) 500 mg tablet 500 mg PO BIDCM #0 tabs 08/15/21 ferrous sulfate 325 mg (65 mg iron) tablet (FeroSul) 325 mg PO BIDCM #0 tabs 08/15/21 diclofenac sodium 1 % topical gel 1 ea topical PRN PRN Pain 11/18/21 omeprazole 40 mg capsule,delayed release 40 mg PO DAILY 11/18/21 acetaminophen 325 mg tablet (Tylenol) 650 mg (2 x 325 mg) PO Q4H PRN PRN Fever, pain 1-10/10 #0 tabs 11/20/21 lorazepam 1 mg tablet 1 mg PO BID PRN PRN Anxiety #5 tabs 11/20/21 albuterol sulfate 90 mcg/actuation aerosol inhaler (Ventolin HFA) 2 puff inhalation Q4H PRN shortness of breath or wheezing #18 grams 01/30/22 fluticasone propionate 50 mcg/actuation nasal spray,suspension 2 spray DAILY PRN Sinus Symptoms #16 grams 01/30/22 losartan 50 mg tablet 50 mg PO DAILY 01/30/22 ondansetron HCl 4 mg tablet 4 mg PO PRN PRN Nausea 08/14/22 dicyclomine 10 mg capsule 20 mg (2 x 10 mg) PO TIDAC #21 caps 08/19/22 potassium chloride 20 mEq tablet,extended release(part/cryst) (Klor-Con M) 20 meq PO BIDCM #14 tabs 08/19/22 Hospital Course Operations None Procedures None Summary of Care Provided Minutes Spent on Discharge: 31 Hospital Course: Six 1-year-old black female was seen in the emergency room at [facility] with a 5 to 7-day history of diarrhea, she had a medication change about the time the diarrhea started and was placed on 1 Giorno. Work-up in the emergency room included labs which showed the patient's creatinine to be elevated at 3.06, BUN was 28, urinalysis showed +2 bacteria and 25 leukocyte esterase. Patient had positive urine nitrite, abdomen and pelvis CT was obtained which showed a probable left adrenal adenoma and an ileus. Patient was admitted to [facility], she was given IV fluids and medications for diarrhea, she was seen in consultation by nephrology and serial labs were obtained to follow her kidney function. Patient was seen in consultation by general surgery who did not feel the patient needed surgical intervention. The etiology of the patient's diarrhea was not fully explained but felt to be probably secondary to Mira usage. Patient was seen by PT and OT due to generalized weakness, it was not necessary for patient to go to a half-way facility for inpatient rehab services. On 08/19/2022, patient was seen and examined: On examination she appeared in good health and spirits, she does not appear to be in any distress. Vital signs as documented. Skin warm and dry and without overt rashes. Neck without JVD, thyroid appears normal, trachea is midline, neck is supple. Lungs clear, normal air movement was noted. Heart exam notable for regular rhythm, normal sounds and absence of murmurs, rubs or gallops. Abdomen unremarkable and without evidence of organomegaly, masses, or abdominal aortic enlargement, bowel sounds are present in all 4 quadrants, no abdominal tenderness was noted. Extremities nonedematous, no cyanosis was noted, no clubbing was noted. Neuro: Cranial nerves II through XII are grossly intact, no focal motor deficits were noted, sensation to light touch and pinprick is intact, motor exam 5/5 throughout. Psych: Patient is alert and oriented x3, she does not appear anxious or depressed, she does not appear agitated. Patient appears to be stable for discharge on 08/19/2022. Weight / BMI Weight Weight: 151.5 kg Body Mass Index (BMI) 50.8 ABG / Lab / Microbiology Data 08/19/22 05:27 08/19/22 05:27 Laboratory: Laboratory Results - last 24 hr 08/15/22 05:55: Dopamine 183 H, Epinephrine <15, Norepinephrine 1779 H 08/18/22 05:28: Diff Path Review Reviewed 08/18/22 16:46: POC Glucose 106 08/18/22 22:28: POC Glucose 90 08/19/22 05:27: WBC 16.5 H, RBC 3.84 L, Hgb 11.6 L, Hct 36.4 L, MCV 94.8, MCH 30.2, MCHC 31.9 L, RDW Std Deviation 43.8, RDW Coeff of Amirah 12.6, Plt Count 249, MPV 10.5, Neut % (Auto) Not Reportable, Absolute Neuts (auto) 6.6, Absolute Lymphs (auto) 3.96, Total Counted 100, Neutrophils % (Manual) 30 L, Band Neutrophils % 10 H, Lymphocytes % (Manual) 24, Monocytes % (Manual) 16 H, Eosinophils % (Manual) 17 H, Myelocytes % 3 H, Diff Path Review Reviewed, Atypical Lymphocytes 1+, Platelet Estimate ADEQUATE, RBC Morphology NORM C+C 08/19/22 05:27: Sodium 144, Potassium 2.9 L, Chloride 124 H, Carbon Dioxide 15.0 L, Anion Gap 5, BUN 18, Creatinine 1.67 H, Estim Creat Clear Calc 35.23, Est GFR (MDRD) Af Amer 40 L, Est GFR (MDRD) Non-Af 33 L, BUN/Creatinine Ratio 10.8, Glucose 86, Calcium 7.8 L, Total Bilirubin 0.40, AST 17, ALT 17, Alkaline Phosphatase 86, Total Protein 5.7 L, Albumin 2.1 L, Globulin 3.6, Albumin/Globulin Ratio 0.6 L 08/19/22 05:48: POC Glucose 82 08/19/22 11:13: POC Glucose 95 Microbiology: Microbiology 08/15/22 15:31 Blood Culture (Wb) - Anticubital Right Blood Culture - Preliminary No growth in 48 hours. 08/15/22 14:59 Blood Culture (Wb) - Anticubital Right Blood Culture - Preliminary No growth in 48 hours. 08/14/22 19:38 Urine, Catheterized Urine Culture - Final Escherichia coli Escherichia coli#2 08/14/22 19:38 Stool Stool Lactoferrin - Final 08/14/22 19:38 Stool Enteric Bacteriology - Final 08/14/22 19:38 Stool C. difficile DNA Amplification - Final D/C Instructions Discharge Diet: 1800 Calorie Control Diet Weight Bearing Status: Full weight bearing Meaningful Use Info Meaningful Use Diagnoses (Choose all that apply): None applicable Discharge Plan Admission Admit Date/Time: 08/14/22 21:00 Primary Reason for Your Visit: kidney injury, diarrhea Attending Provider: Jim Pizarro Primary Care Provider: Silvia Tolbert Consulting Providers: Sam Perez; Ammy Agarwal; Lisa Mendoza; Raysa Knox; Winter Hamm Instructions Additional Instructions / Restrictions: You may take Imodium 2 every 6 hours as needed for diarrhea, resume your previous insulin coverage per home glucose readings Discharge Orders/Prescriptions Prescriptions: New dicyclomine 10 mg Capsule 20 mg PO TIDAC Qty: 21 0RF potassium chloride [Klor-Con M20] 20 mEq Tablet,Er Particles/Crystals 20 meq PO BIDCM Qty: 14 0RF Continued losartan 50 mg tablet 50 mg PO DAILY fluticasone propionate 50 mcg/actuation spray,suspension 2 spray NASAL DAILY PRN (Reason: Sinus Symptoms) Qty: 16 6RF albuterol sulfate [Ventolin HFA] 90 mcg/actuation HFA aerosol inhaler 2 puff inhalation Q4H PRN (Reason: shortness of breath or wheezing) Qty: 18 6RF albuterol sulfate 2.5 MG/3 ML solution for nebulization 2.5 mg inhalation Q6HWA.RT PRN (Reason: Asthma) Patient Comments: ASTHMA acetaminophen [Tylenol] 325 mg Tablet 650 mg PO Q6H PRN PRN (Reason: Pain Score 1-10/Temp > 100.7 F) Qty: 0 0RF ascorbic acid (vitamin C) 500 mg Tablet 500 mg PO BIDCM Qty: 0 0RF ferrous sulfate [FeroSul] 325 mg (65 mg iron) Tablet 325 mg PO BIDCM Qty: 0 0RF omeprazole 40 mg Capsule,Delayed Release(Dr/Ec) 40 mg PO DAILY diclofenac sodium 1 % Gel 1 ea TOPICAL PRN PRN (Reason: Pain) lorazepam 1 mg Tablet 1 mg PO BID PRN PRN (Reason: Anxiety) Qty: 5 0RF acetaminophen [Tylenol] 325 mg Tablet 650 mg PO Q4H PRN PRN (Reason: Fever, pain 1-10/10) Qty: 0 0RF ondansetron HCl 4 mg tablet 4 mg PO PRN PRN (Reason: Nausea) Discontinued furosemide [Lasix] 40 mg tablet 40 mg PO DAILY Qty: 1 0RF Rx Instructions: start on 11/23/21 Referrals / Follow Up: Silvia Tolbert MD [Primary Care Provider] - See Referral Note (On Friday or of this week, you will need a BMP drawn) Disposition Disposition (needs filled in before D/C Order can be placed): Home, Self Care Charges/Coding Visit Charges Inpatient E&M: 39126 Disch Hosp >30min
[2022-08-19 16:23] VITALS: BP 155/70; PULSE 88; RESP 18; TEMP 37.2; O2SAT 97
[2022-08-21 19:07] LABS: Calprotectin, Stool 2950 ug/g (0-120)
== END 2022-08-19 16:15 | disposition home or self-care (01) | DRG 249 ==
LOC: ED 20:32 → MS3 21:26
PROVIDERS: Family Medicine; Internal Medicine; Nurse Practitioner Adult Health; Admitting Provider Hospitalist; Emergency Provider Emergency Medicine; PCP Internal Medicine; Visit Provider Internal Medicine
DX: K52.1 Toxic gastroenteritis and colitis (principal); E87.20 Acidosis, unspecified; E66.2 Morbid (severe) obesity with alveolar hypoventilation; E11.21 Type 2 diabetes mellitus with diabetic nephropathy; K56.7 Ileus, unspecified; D72.821 Monocytosis (symptomatic); N17.9 Acute kidney failure, unspecified; Z68.43 Body mass index [BMI] 50.0-59.9, adult; E11.22 Type 2 diabetes mellitus with diabetic chronic kidney disease; N18.32 Chronic kidney disease, stage 3b; Z79.4 Long term (current) use of insulin; E87.6 Hypokalemia; I49.9 Cardiac arrhythmia, unspecified; I12.9 Hypertensive chronic kidney disease with stage 1 through stage 4 chronic kidney disease, or unspecified chronic kidney disease; E87.5 Hyperkalemia; E78.5 Hyperlipidemia, unspecified; R82.71 Bacteriuria; D35.02 Benign neoplasm of left adrenal gland; D36.7 Benign neoplasm of other specified sites; T50.995A Adverse effect of other drugs, medicaments and biological substances, initial encounter
CPT/HCPCS: 36415; 74176; 76770; 80048; 80053; 80076; 81001; 82384; 82436; 82533; 82570; 82962; 83630; 83690; 83735; 83935; 83993; 84100; 84133; 84145; 84156; 84300; 84443; 84540; 85025; 85652; 86140; 87040; 87086; 87088; 87177; 87186; 87209; 87493; 87506; 93005; 97110; 97116; 97162; 97166; 97530; 97535; 99285; J2185; J7030; J7040; J7050; J7120; A4216; J2405; J3490

== ENCOUNTER 2023-08-04 14:01 | Emergency (ER) | payer MEDICAID, SELFPAY ==
[2023-08-04 14:04] VITALS: BP 185/83; PULSE 81; RESP 16; TEMP 36.7; O2SAT 96
--- NOTE | 2023-08-04 15:04 | CT_ITS ---
EXAM: CT ABDOMEN AND PELVIS WITHOUT INTRAVENOUS CONTRAST CLINICAL INDICATION: Pain -- LLQ pain TECHNIQUE: Helically acquired images were obtained of the abdomen and pelvis without intravenous contrast. This CT exam was performed using one or more of the following dose reduction techniques: automated exposure control, adjustment of the mA and/or kV according to patient size, and/or use of iterative reconstruction technique. RADIATION DOSE: CTDIvol = 24.18 mGy, DLP = 1171.81 mGy-cm COMPARISON: No relevant prior studies available. FINDINGS: LIMITATIONS: Exam limited by patient size which causes significant artifact and decreased resolution. LOWER THORAX: Unremarkable. Lung bases are clear. Mild cardiomegaly. No significant pericardial effusion. ABDOMEN: LIVER: Fatty liver with hepatomegaly. GALLBLADDER AND BILE DUCTS: Gallbladder is not seen. No intra- or extrahepatic biliary ductal dilation. PANCREAS: Unremarkable. No focal cystic mass. SPLEEN: Unremarkable. Normal size without focal cystic or solid mass. ADRENALS: Normal right adrenal gland. 2.5 cm left adrenal mass. KIDNEYS AND URETERS: Unremarkable. Normal renal size and position. No hydronephrosis. STOMACH AND BOWEL: Evaluation of the GI tract is limited by absence of oral contrast. Cannot exclude stomach wall thickening. No dilated loops of bowel or evidence for obstruction. Cannot exclude segmental thickening of the burton of the small or large bowel. Cannot exclude enteritis or colitis. PELVIS: APPENDIX: No evidence of acute appendicitis. BLADDER: Unremarkable. REPRODUCTIVE: Unremarkable as visualized. No mass. ABDOMEN and PELVIS: INTRAPERITONEAL SPACE: Unremarkable. No ascites or other fluid collection. No free air. BONES/JOINTS: Unremarkable. No suspicious lytic or blastic abnormality. SOFT TISSUES: Unremarkable. No discrete abdominal or pelvic wall hernia. VASCULATURE: Unremarkable. Abdominal aorta is non-dilated. LYMPH NODES: Unremarkable. No enlarged lymph nodes. CT/Abdomen/Pelvis without Cont IMPRESSION: Significantly limited by patient size. No acute findings in the abdomen or pelvis. 2.5 cm left adrenal mass-correlate with adrenal blood levels and follow-up in one year. Electronically Signed: Gennaro Mesa MD at 16:45 EDT ,
--- NOTE | 2023-08-04 15:09 | EDS_ITS ---
HPI History of Present Illness Chief Complaint: Abd Pain Informant: patient Narrative Narrative: Sent from [facility] for evaluation. To have intermittent pain lower abdomen for the past 5 days worse over the last 2 days but more persistent. Urine urgency. No fevers or chills. Has had normal bowel movements nonbloody. Colonoscopy years ago. She admits to having diverticulitis years ago may feel similar. Only had C-sections in the past. No nausea or vomiting. Multiple allergies including to iodine. Penicillin causing shortness of breath. Prior similar symptoms: Yes PFSH [facility] Medical History Hypokalemia Asymptomatic bacteriuria Gastroenteritis Chronic respiratory failure with hypoxia and hypercapnia Anemia Anxiety Sleep apnea CPAP (continuous positive airway pressure) dependence Asthma Type 2 diabetes mellitus Obesity Hypertension Home Medications ?Medication ?Instructions ?Recorded ?Last Taken ?Type albuterol sulfate 2.5 mg/3 mL 2.5 mg inhalation Q6HWA.RT PRN 11/23/12 07/31/21 13:00 History (0.083 %) solution for nebulization Asthma acetaminophen 325 mg tablet 650 mg (2 x 325 mg) PO Q6H PRN PRN 08/15/21 Unknown Rx (Tylenol) Pain Score 1-10/Temp > 100.7 F #0 tabs ascorbic acid (vitamin C) 500 mg 500 mg PO BIDCM #0 tabs 08/15/21 Unknown Rx tablet ferrous sulfate 325 mg (65 mg 325 mg PO BIDCM #0 tabs 08/15/21 Unknown Rx iron) tablet (FeroSul) diclofenac sodium 1 % topical gel 1 ea topical PRN PRN Pain 11/18/21 Unknown History lorazepam 1 mg tablet 1 mg PO BID PRN PRN Anxiety #5 tabs 11/20/21 Unknown Rx fluticasone propionate 50 2 spray DAILY PRN Sinus Symptoms 01/30/22 Unknown Rx mcg/actuation nasal #16 grams spray,suspension dicyclomine 10 mg capsule 20 mg (2 x 10 mg) PO TIDAC #21 caps 08/19/22 Unknown Rx potassium chloride 20 mEq 20 meq PO BIDCM #14 tabs 08/19/22 Unknown Rx tablet,extended release(part/cryst) (Klor-Con M) albuterol sulfate 90 mcg/actuation 2 puff inhalation Q4H PRN 03/18/23 Unknown Rx aerosol inhaler (Ventolin HFA) shortness of breath or wheezing #18 grams bupropion HCl 300 mg 24 hr tablet, 300 mg PO QDAY 06/30/23 Unknown History extended release cholecalciferol (vitamin D3) 50 50 mcg PO QDAY 06/30/23 Unknown History mcg (2,000 unit) capsule cyclobenzaprine 5 mg tablet 5 mg PO TID PRN 06/30/23 Unknown History furosemide 40 mg tablet 40 mg PO QDAY PRN 06/30/23 Unknown History losartan 50 mg tablet 100 mg PO DAILY 06/30/23 Unknown History metolazone 5 mg tablet 5 mg PO QDAY 06/30/23 Unknown History mometasone-formoterol HFA 200 2 puff inhalation BID 06/30/23 Unknown History mcg-5 mcg/actuation aerosol inhaler (Dulera) montelukast 10 mg tablet 10 mg PO QDAY 06/30/23 Unknown History pantoprazole 40 mg tablet,delayed 40 mg PO QDAY 06/30/23 Unknown History release polyethylene glycol 3350 17 gram 17 g PO DAILY PRN 06/30/23 Unknown History oral powder packet (Miralax) tirzepatide 2.5 mg/0.5 mL 5 mg subcut 06/30/23 Unknown History subcutaneous pen injector (Sangeetha) venlafaxine 75 mg capsule,extended 75 mg PO QDAY 06/30/23 Unknown History release 24 hr ciprofloxacin HCl 500 mg tablet 500 mg PO BID #14 TABLETS 08/04/23 Unknown Rx metronidazole 500 mg tablet 500 mg PO Q8H #21 tabs 08/04/23 Unknown Rx oxycodone-acetaminophen 5 mg-325 1 tab PO Q6H PRN PRN Pain 3 days 08/04/23 Unknown Rx mg tablet #12 TABLETS Allergy/AdvReac Type Severity Reaction Status Date / Time codeine Allergy Nausea/Vom/ Verified 08/04/23 14:06 Diarrhea iodine Allergy Swelling Verified 08/04/23 14:06 latex Allergy Shortness Verified 08/04/23 14:06 of breath meloxicam Allergy Rash Verified 08/04/23 14:06 Penicillins Allergy Shortness Verified 08/04/23 14:06 of breath tositumomab Allergy NEEDS Verified 08/04/23 14:06 FOLLOW-UP hydrocodone bitartrate (From AdvReac Nausea/Vom/ Verified 08/04/23 14:06 Vicodin) Diarrhea prednisone AdvReac Other Verified 08/04/23 14:06 Family History Other Diabetes Heart disease Hypertension Surgical History History of ankle surgery Previous section History of cholecystectomy Social History household members: other Smoking Status: Never smoker alcohol intake: never substance use type: does not use ROS ROS ED Constitutional Constitutional ED: Denies chills, fever(s) or sweats Eyes Eyes: Denies change in vision ENT ENT ED: Denies dysphagia or sore throat Cardiovascular Cardiovascular: Denies chest pain, leg edema, palpitations or racing heartbeat Respiratory/Chest Respiratory/Chest: Denies cough, dyspnea or dyspnea on exertion Gastrointestinal Gastrointestinal: Reports abdominal pain; Denies diarrhea, nausea or vomiting Genitourinary Genitourinary ED: Reports other Details: Urine urgency ; Denies dysuria, hematuria or urinary frequency Musculoskeletal Musculoskeletal: Denies back pain, extremity pain or neck pain Integumentary Denies rash or wounds Neurologic Neurologic: Denies headache(s), paresthesias or weakness EXAM Physical Exam Const Vital Signs: 08/04/23 14:04 08/04/23 16:03 08/04/23 18:00 Temperature 98.1 F Temperature Source Temporal Pulse Rate 81 84 84 Respiratory Rate 16 18 18 Blood Pressure 185/83 H 154/80 H 177/94 H Blood Pressure Mean 117 104 121 Pulse Ox 96 90 94 Oxygen Delivery Method Room Air Room Air 08/04/23 18:16 Temperature 97.9 F Temperature Source Pulse Rate 82 Respiratory Rate 18 Blood Pressure 170/68 H Blood Pressure Mean 102 Pulse Ox 98 Oxygen Delivery Method Positive well nourished and well developed General Appearance ED: well developed and NAD HEENT Reports moist mucous membranes normocephalic and atraumatic Eyes EOMs intact bilaterally and conjunctivae normal General Eye ED: Yes normal appearance of both eyes Neck no lymphadenopathy and supple General: Negative for tenderness Chest Wall Chest: Negative for tenderness Resp normal respiratory effort and normal air movement Effort and Inspection: symmetric chest movement; Negative for respiratory distress Cardio regular rate, regular rhythm and no murmurs Peripheral Pulses: pulses 2+ throughout GI normal to inspection, nondistended, normoactive bowel sounds GI Narrative: Tender to deep palpation left lower quadrant without guarding or rebound. Negative Soto's or McBurney's tenderness. Palpation: Negative for guarding or rebound tenderness present Back/Spine no CVA tenderness and no thoracic nor lumbar tenderness Extremity normal to inspection General Extremety ED: Negative for edema or tenderness General Extremity: Negative for edema Neuro oriented x3 and no sensory deficits noted Sensorium / Orientation: awake and alert Skin no rashes or lesions noted and no wounds MDM MDM MDM Narrative Medical decision making narrative: Interventions / MDM: Differential diagnosis: Diverticulitis Diagnosis considered but do not suspect: Kidney stones however CT negative. UTI however urine negative. My EKG interpretation: N/A Imaging independently reviewed and interpreted by myself: CT abdomen pelvis without contrast: No acute process unable to rule out any colitis per radiology. External documents reviewed: N/A Test considered but not ordered:N/A ED course: Nontoxic pain deep palpation left lower quadrant that is progressing. Labs ordered urine and CT scan noncontrast as she has an allergy to IV dye. Fluids morphine ordered for pain control. Labs are stable Creatinine 1.[address] scan no acute process however unable to rule any colitis there is no fat stranding noted. Per her pain is left lower quadrant that is progressive and persistent. Discussed clinical diverticulitis. She would like treatment. She allergic penicillin. Cipro and Flagyl started in the ED short course for pain control. Outpatient follow with her PCP with strict return precautions. All questions were answered. Re-evaluation: stable Disposition discussed with patient/family/significant other: Patient Case discussed with consulting clinician: N/A This note was generated with [email or web address] dictation software. It may contain incorrect words, spelling, and punctuation that were not noted in checking the note before signing. Lab Data Attestation: I reviewed the patient's lab results. Labs: Laboratory Results - last 24 hr 08/04/23 08/04/23 08/04/23 15:10 15:10 15:28 WBC Cancelled 6.5 Corrected WBC Cancelled RBC Cancelled 3.99 L Hgb Cancelled 11.4 L Hct Cancelled 39.7 MCV Cancelled 99.5 H MCH Cancelled 28.6 MCHC Cancelled 28.7 L RDW Std Deviation Cancelled 44.2 H RDW Coeff of Amirah Cancelled 12.0 Plt Count Cancelled 249 MPV Cancelled 11.2 Immature Gran % (Auto) Cancelled 0.300 Neut % (Auto) Cancelled 71.7 H Lymph % (Auto) Cancelled 13.8 L [place] % (Auto) Cancelled 10.8 H Eos % (Auto) Cancelled 2.9 Baso % (Auto) Cancelled 0.5 Absolute Neuts (auto) Cancelled 4.7 Absolute Lymphs (auto) Cancelled 0.90 Total Counted Cancelled Neutrophils % (Manual) Cancelled Band Neutrophils % Cancelled Lymphocytes % (Manual) Cancelled Monocytes % (Manual) Cancelled Eosinophils % (Manual) Cancelled Basophils % (Manual) Cancelled Metamyelocytes % Cancelled Myelocytes % Cancelled Promyelocytes % Cancelled Blast Cells % Cancelled Plasma Cell % (Manual) Cancelled Other Cells % Cancelled Nucleated RBC % Cancelled 0 Nucleated RBCs/100 WBC Cancelled Differential Comment Cancelled Diff Path Review Cancelled Hypersegmented Neuts Cancelled Atypical Lymphocytes Cancelled Reactive Lymphocytes Cancelled Smudge Cells Cancelled Toxic Granulation Cancelled Toxic Vacuolation Cancelled Dohle Bodies Cancelled Jonathan Rods Cancelled Platelet Estimate Cancelled Plt Morphology Comment Cancelled RBC Morphology Cancelled Cancelled Polychromasia Cancelled Hypochromasia Cancelled Basophilic Stippling Cancelled Anisocytosis Cancelled Microcytosis Cancelled Macrocytosis Cancelled Spherocytes Cancelled Sickle Cells Cancelled Target Cells Cancelled Tear Drop Cells Cancelled Ovalocytes Cancelled Stomatocytes Cancelled [place] Bodies Cancelled [place] Cells Cancelled Bite Cells Cancelled Crenated Cell Cancelled Acanthocytes (Spur) Cancelled Rouleaux Cancelled Schistocytes Cancelled Sodium 139 140 Potassium 4.1 4.0 Chloride 108 H 107 Carbon Dioxide 28.0 31.0 Anion Gap 3 L 2 L BUN 18 18 Creatinine 1.42 H 1.40 H Estim Creat Clear Calc 121.80 123.54 Est GFR (MDRD) Af Amer 48 L 49 L Est GFR (MDRD) Non-Af 40 L 40 L BUN/Creatinine Ratio 12.7 12.9 Glucose 89 88 Calcium 9.2 9.2 Urine Color Urine Clarity Urine pH Ur Specific [place] Urine Protein Urine Glucose (UA) Urine Ketones Urine Occult Blood Urine Nitrite Urine Bilirubin Urine Urobilinogen Ur Leukocyte Esterase Urine RBC Urine WBC Ur Squamous Epith Cells Urine Bacteria Urine Mucus 08/04/23 16:35 WBC Corrected WBC RBC Hgb Hct MCV MCH MCHC RDW Std Deviation RDW Coeff of Amirah Plt Count MPV Immature Gran % (Auto) Neut % (Auto) Lymph % (Auto) [place] % (Auto) Eos % (Auto) Baso % (Auto) Absolute Neuts (auto) Absolute Lymphs (auto) Total Counted Neutrophils % (Manual) Band Neutrophils % Lymphocytes % (Manual) Monocytes % (Manual) Eosinophils % (Manual) Basophils % (Manual) Metamyelocytes % Myelocytes % Promyelocytes % Blast Cells % Plasma Cell % (Manual) Other Cells % Nucleated RBC % Nucleated RBCs/100 WBC Differential Comment Diff Path Review Hypersegmented Neuts Atypical Lymphocytes Reactive Lymphocytes Smudge Cells Toxic Granulation Toxic Vacuolation Dohle Bodies Jonathan Rods Platelet Estimate Plt Morphology Comment RBC Morphology Polychromasia Hypochromasia Basophilic Stippling Anisocytosis Microcytosis Macrocytosis Spherocytes Sickle Cells Target Cells Tear Drop Cells Ovalocytes Stomatocytes [place] Bodies Kelle Cells Bite Cells Crenated Cell Acanthocytes (Spur) Rouleaux Schistocytes Sodium Potassium Chloride Carbon Dioxide Anion Gap BUN Creatinine Estim Creat Clear Calc Est GFR (MDRD) Af Amer Est GFR (MDRD) Non-Af BUN/Creatinine Ratio Glucose Calcium Urine Color Yellow Urine Clarity Clear Urine pH 6.0 Ur Specific [place] 1.015 Urine Protein 15 H Urine Glucose (UA) Normal Urine Ketones Negative Urine Occult Blood 10 H Urine Nitrite Negative Urine Bilirubin Negative Urine Urobilinogen Normal Ur Leukocyte Esterase Negative Urine RBC 0-5 SEEN Urine WBC 0-5 SEEN Ur Squamous Epith Cells 0-5 SEEN Urine Bacteria 0 SEEN Urine Mucus 0 SEEN Radiography Diagnostic Testing: Clinical Impression(s) from Imaging Studies Abdomen/Pelvis CT 08/04/23 15:04 IMPRESSION: Significantly limited by patient size. No acute findings in the abdomen or pelvis. 2.5 cm left adrenal mass-correlate with adrenal blood levels and follow-up in one year. Electronically Signed: Gennaro Mesa MD at 16:45 EDT , Discharge Plan Triage Chief Complaint: Abd Pain ED Provider: Dimitry Jo Dx/Rx/DC Orders Clinical Impression: Abdominal pain, LLQ, History of diabetes mellitus, Obesity hypoventilation syndrome, Chronic kidney disease Instructions: ED Diverticulitis Prescriptions: New metronidazole 500 mg tablet 500 mg PO Q8H Qty: 21 0RF ciprofloxacin HCl 500 mg tablet 500 mg PO BID Qty: 14 0RF oxycodone-acetaminophen 5-325 mg tablet 1 tab PO Q6H PRN PRN (Reason: Pain) 3 Days Qty: 12 0RF No Action fluticasone propionate 50 mcg/actuation spray,suspension 2 spray NASAL DAILY PRN (Reason: Sinus Symptoms) Qty: 16 6RF losartan 50 mg tablet 100 mg PO DAILY venlafaxine 75 mg capsule,extended release 24hr 75 mg PO QDAY Mounjaro 2.5 mg/0.5 mL pen injector 5 mg subcut polyethylene glycol 3350 [Miralax] 17 gram powder in packet 17 g PO DAILY PRN pantoprazole 40 mg tablet,delayed release (DR/EC) 40 mg PO QDAY montelukast 10 mg tablet 10 mg PO QDAY Dulera 200-5 mcg/actuation HFA aerosol inhaler 2 puff inhalation BID metolazone 5 mg tablet 5 mg PO QDAY furosemide 40 mg tablet 40 mg PO QDAY PRN cyclobenzaprine 5 mg tablet 5 mg PO TID PRN bupropion HCl 300 mg tablet extended release 24 hr 300 mg PO QDAY cholecalciferol (vitamin D3) 50 mcg (2,000 unit) capsule 50 mcg PO QDAY albuterol sulfate 2.5 MG/3 ML solution for nebulization 2.5 mg inhalation Q6HWA.RT PRN (Reason: Asthma) Patient Comments: ASTHMA acetaminophen [Tylenol] 325 mg Tablet 650 mg PO Q6H PRN PRN (Reason: Pain Score 1-10/Temp > 100.7 F) Qty: 0 0RF ascorbic acid (vitamin C) 500 mg Tablet 500 mg PO BIDCM Qty: 0 0RF ferrous sulfate [FeroSul] 325 mg (65 mg iron) Tablet 325 mg PO BIDCM Qty: 0 0RF diclofenac sodium 1 % Gel 1 ea TOPICAL PRN PRN (Reason: Pain) lorazepam 1 mg Tablet 1 mg PO BID PRN PRN (Reason: Anxiety) Qty: 5 0RF dicyclomine 10 mg Capsule 20 mg PO TIDAC Qty: 21 0RF potassium chloride [Klor-Con M20] 20 mEq Tablet,Er Particles/Crystals 20 meq PO BIDCM Qty: 14 0RF albuterol sulfate [Ventolin HFA] 90 mcg/actuation HFA aerosol inhaler 2 puff inhalation Q4H PRN (Reason: shortness of breath or wheezing) Qty: 18 0RF Primary Care Provider: Silvia Tolbert Referrals: Silvia Tolbert MD [Primary Care Provider] - 3-5 Days Activity Restrictions/Additional Instructions: Your CT scan no clear inflammatory findings, however due to your IV contrast allergy per radiology we cannot rule out colitis. You are tender in left lower quadrant you are being treated for diverticulitis. Take antibiotics and finish as prescribed pain medicine as needed. You develop fevers worsening symptoms, return to ED for reevaluation otherwise follow-up with your doctor. Your blood work is stable, white count 6.5. Print Language: Persian Disposition Disposition: Home, Self Care Discharge Date/Time: 08/04/23 18:25
[2023-08-04 15:13] VITALS: BMI 127.2
--- NOTE | 2023-08-04 15:27 | NURSING ---
NEED A NEW PURPLE TOP, PER LAB
[2023-08-04 15:28] LABS: Anion Gap 3 (5-15); BUN 18 mg/dL (7-18); BUN/Creat Ratio 12.7 RATIO (10-20); Calcium,Total 9.2 mg/dL (8.5-10.1); Chloride 108 mmol/L (98-107); Creatinine, Serum 1.42 mg/dL (0.55-1.02); EST Glomerular Filtration Rate 40 mL/min (>60); Est Glom Filt Rate - Afr Amer 48 mL/min (>60); Glucose 89 mg/dL (74-106); Potassium 4.1 mmol/L (3.5-5.1); Sodium Level 139 mmol/L (136-145)
[2023-08-04] MEDS: 0.9% Normal Saline (1000mL) 1,000 ML 125 ML IV (15:28)
[2023-08-04] MEDS: Morphine 2 MG/ML Syringe IV (15:28)
[2023-08-04] MEDS: Ondansetron 4 MG/2 ML Vial IV (15:28)
[2023-08-04 15:51] LABS: Anion Gap 2 (5-15); BUN 18 mg/dL (7-18); BUN/Creat Ratio 12.9 RATIO (10-20); Calcium,Total 9.2 mg/dL (8.5-10.1); Chloride 107 mmol/L (98-107); EST Glomerular Filtration Rate 40 mL/min (>60); Est Glom Filt Rate - Afr Amer 49 mL/min (>60); Estimated Creatinine Clearance 123.54 ml/min; Glucose 88 mg/dL (74-106); Sodium Level 140 mmol/L (136-145)
[2023-08-04 15:54] LABS: Absolute Neutrophil Count 4.7 X10^3/uL (2.0-7.7); Basophil# 0.03 X10^3/uL; Basophil% 0.5 % (0-1); Eosinophil# 0.19 X10^3/uL; Eosinophils% 2.9 % (0-5); Hematocrit 39.7 % (37-47); Hemoglobin 11.4 g/dL (12.0-15.0); Lymphocyte % 13.8 % (19-41); Mean Corp Hgb Conc 28.7 g/dL (32-36); Mean Corpuscular Hgb 28.6 pg (27.0-32.0); Mean Corpuscular Volume 99.5 fL (81-99); Mean Platelet Vol. 11.2 fl (6.2-12.0); Monocyte% 10.8 % (0-10); NRBC Flagged by Analyzer 0 % (0-5); Neutrophil # 4.66 X10^3/uL (2.7-7.7); Neutrophil % 71.7 % (47-70); Platelet Count 249 K/mm3 (150-450); RBC Distribution Width SD 44.2 fl (35.1-43.9); Red Blood Count 3.99 M/mm3 (4.2-5.4); White Blood Count 6.5 K/mm3 (4.4-11.0)
[2023-08-04 16:03] VITALS: BP 154/80; PULSE 84; RESP 18; O2SAT 90
[2023-08-04 16:49] LABS: Bacteria 0 SEEN /hpf (None Seen); Mucous, Urine 0 SEEN /hpf (<or=2+)
[2023-08-04 16:54] LABS: Color, Urine Yellow (Yellow); Glucose, Dipstick Normal (Normal); Ketone-Dipstick Negative (Negative); Leukocyte Esterase-Dipstick Negative /ul (Negative); Nitrite-Dipstick Negative (Negative); Occult Blood-Urine 10 /ul (Negative); Protein-Dipstick 15 mg/dl (Negative); Specific Gravity, Urine 1.015 (1.002-1.030); Urine Bilirubin Dipstick Negative (Negative); Urine Clarity Clear (Clear); Urine Urobilinogen Normal (Normal)
[2023-08-04 17:43] LABS: Red Blood Cells-Urine 0-5 SEEN /hpf (0-5); Squamous Epithelial Cells - UA 0-5 SEEN /hpf (5-10); White Blood Cells 0-5 SEEN /hpf (0-5)
[2023-08-04 18:00] VITALS: BP 177/94; PULSE 84; RESP 18; O2SAT 94
[2023-08-04 18:16] VITALS: BP 170/68; PULSE 82; RESP 18; TEMP 36.6; O2SAT 98
[2023-08-04] MEDS: metroNIDAZOLE 500 MG Tablet PO (18:18)
[2023-08-04] MEDS: Ciprofloxacin 500 MG Tablet PO (18:18)
== END 2023-08-04 18:25 | disposition home or self-care (01) ==
PROVIDERS: Emergency Provider Emergency Medicine; PCP Internal Medicine; Visit Provider Emergency Medicine
DX: R10.32 Left lower quadrant pain (principal); E66.2 Morbid (severe) obesity with alveolar hypoventilation; E11.22 Type 2 diabetes mellitus with diabetic chronic kidney disease; I12.9 Hypertensive chronic kidney disease with stage 1 through stage 4 chronic kidney disease, or unspecified chronic kidney disease; N18.9 Chronic kidney disease, unspecified; Z99.89 Dependence on other enabling machines and devices; F41.9 Anxiety disorder, unspecified; Z79.85 Long-term (current) use of injectable non-insulin antidiabetic drugs; Z79.899 Other long term (current) drug therapy; Z90.49 Acquired absence of other specified parts of digestive tract
CPT/HCPCS: 74176; 80048; 81001; 85025; 96361; 96374; 96375; 99284; J7030; A4216; J2405

== ENCOUNTER → 2024-12-18 | Outpatient (CLI) | payer MEDICAID, SELFPAY ==
--- NOTE | 2024-12-18 11:11 | US_ITS ---
PROCEDURE: KIDNEY AND BLADDER 12/18/2024 REASON FOR EXAM: UTI TECHNIQUE: Procedure Code: USKI Modality: US Procedure: KIDNEY AND BLADDER FINDINGS: Right kidney measures 10.7 cm and left kidney measures 11.6 cm. Normal echotexture of bilateral kidneys. No hydronephrosis. No renal stones. Urinary bladder is not well visualized. US/Kidney and Bladder IMPRESSION: Urinary bladder is not well visualized on this exam. No hydronephrosis. Reading Location: [id number]
--- OUTSIDE RECORDS SUMMARY | 2024-12-18 11:13 | XMS RPT_ITS | CCD ---
Author Organization [facility] Care Team Providers Care Seismic Computer Name Role Phone MICHAEL HILTON Unavailable Unavailable ERICA CANNON Unavailable Unavailable Erica Cannon MD Primary Care Provider DR ERICA CANNON MD Primary Care Physician ([facility] )[phone] Dr. Erica Cannon Primary Care Provider 1([facility] )[phone] Dr. Princess Mcgee Emergency Provider 1([facility])[phone] Dr. Maribel Leblanc Admit Provider 1([facility])[phone] Maribel Leblanc Referring Provider 1([facility])[phone] Dr. Maribel Leblanc Other Provider 1([facility])[phone] Heber Devine Attending Provider 1([facility])[phone] Heber Devine Other Provider Dr. Henry Vargas Other Provider Arjun JEWEL HOLE DRILLER, JEWEL HOLE DRILLER-C Stephanie Other Provider Dr. Genesis Garcia Other Provider Dr. Genesis Garcia Attending Provider 1([facility])[phone] Mojgan, Dr. Boo Attending Provider 1([facility])[phone] Dr. Rj Singh Attending Provider 1([facility])[phone] Dr. Dru Correa Attending Provider 1([facility])[phone] Dr. Dru Correa Other Provider 1([facility])[phone] Jim Pizarro Attending Provider 1([facility])[phone] Dr. Jim Pizarro Other Provider 1([facility])[phone] Logan Garcia Attending Provider Dr. Logan Garcia Other Provider AMERICA Hale Attending Provider Unavail able Erica Cannon MD Primary Care Provider Dr. Logan Garcia Referring Provider Dr. Lorenzo Chaudhary Emergency Provider Dr. Winter Hamm Admit Provider Dr. Winter Hamm Attending Provider Dr. Winter Hamm Other Provider Dr. Ammy Agarwal Other Provider Dr. Winter Hamm Referring Provider Dr. Curt Dickson Attending Provider Erica Cannon MD Primary Care Provider [facility], Keti Unavailable KASSANDRA HANKINS, DR MALDONADO Attending Unavailable KASSANDRA HANKINS, DR MALDONADO Primary Care Unavailable Dr. Erica Cannon Primary Care Provider Dr. Princess Mcgee Emergency Provider Dr. Sam Perez Admit Provider Dr. Sam Perez Other Provider Dr. Lisa Mendoza Attending Provider Dr. Lisa Mendoza Other Provider Dr. Ammy Agarwal Other Provider Dr. Winter Hamm Attending Provider Dr. Winter Hamm Other Provider Dr. Raysa Knox Other Provider Dr. Raysa Knox Attending Provider Dr. Jim Pizarro Other Provider Dr. Jim Pizarro Attending Provider [facility], Keti Unavailable [facility], Leticia Unavailable Erica Cannon MD Primary Care Provider [facility], Leticia Unavailable North QUALITY REVIEW TRAINER.TRANSCRIPTION TYPIST, Lydia Unavailable Susy QUALITY REVIEW TRAINER.MANAGER [employer] SYSTEMS, Silvestre Unavailable Susy QUALITY REVIEW TRAINER.MANAGER QUALITY SYSTEMS, Silvestre Unavailable Susy QUALITY REVIEW TRAINER.MANAGER QUALITY SYSTEMS, Silvestre Unavailable Susy QUALITY REVIEW TRAINER.MANAGER QUALITY SYSTEMS, Silvestre Unavailable North QUALITY REVIEW TRAINER.TRANSCRIPTION TYPIST, Lydia Unavailable Kassandra HANKINS, Dr. Erica Ventura Primary Care Provider Kassandra HANKINS, Dr. Erica Ventura Referring Provider Lisette HANKINS, Dr. Tabares Attending Provider Dr. Sam Goodson DO Attending Provider SILVESTRE JAIN Referring Unavailable GAVI UREÑA Attending Unavailable TALAMPAS, ERICA D Primary Care Unavailable SUSYSILVESTRE Attending Unavailable TALAMPAS, ERICA D Primary Care Unavailable SUSYSILVESTRE Attending Unavailable TALAMPAS, ERICA D Primary Care Unavailable TALAMPAS, ERICA D Primary Care Unavailable RJ DEMPSEY Referring Unavailable TALAMPAS, ERICA D Primary Care Unavailable SELF Referring Unavailable TALAMPAS, ERICA D Primary Care Unavailable TALAMPAS, ERICA D Attending Unavailable TESTRATOM BECKHAM Attending Unavailable TALAMPAS, ERICA D Primary Care Unavailable LAROUERE, BRENDA Attending Unavailable TALAMPAS, ERICA D Primary Care Unavailable SUSY SILVESTRE Attending Unavailable TALAMPAS, ERICA D Primary Care Unavailable TALAMPAS, ERICA D Primary Care Unavailable TALAMPAS, ERICA D Referring Unavailable TESTRAKETOM Attending Unavailable TALAMPAS, ERICA D Primary Care Unavailable GAVI UREÑA Referring Unavailable TALAMPAS, ERICA D Primary Care Unavailable TESTRATOM BECKHAM Referring Unavailable TESTRATOM BECKHAM Attending Unavailable SINDIAMPAS, ERICA D Primary Care Unavailable RJ EDMPSEY Attending Unavailable MASCI, RJ A Referring Unavailable TALAMPAS, ERICA D Primary Care Unavailable TALAMPAS, ERICA D Primary Care Unavailable TALAMPAS, ERICA D Referring Unavailable KATYA BIGGS Attending Unavailable TALAMPAS, EIRCA D Primary Care Unavailable TALAMPAS, ERICA D Primary Care Unavailable MASCI, RJ A Referring Unavailable TALAMPAS, ERICA D Primary Care Unavailable MASCI, RJ A Referring Unavailable TALAMPAS, ERICA D Primary Care Unavailable MASCI, RJ A Referring Unavailable TALAMPAS, ERICA D Primary Care Unavailable MASCI, RJ A Referring Unavailable TALAMPAS, ERICA D Primary Care Unavailable MASCI, RJ A Referring Unavailable TALAMPAS, ERICA D Primary Care Unavailable GAVI UREÑA Attending Unavailable TALAMPAS, ERICA D Primary Care Unavailable MASCI, RJ Eddy Attending Unavailable TALAMPAS, ERICA D Primary Care Unavailable MASCI, RJ A Referring Unavailable TALAMPAS, ERICA D Primary Care Unavailable MASCI, RJ A Referring Unavailable TALAMPAS, ERICA D Primary Care Unavailable MASCI, RJ A Referring Unavailable TALAMPAS, ERICA D Primary Care Unavailable LYDIA NORTH Attending Unavailable TALAMPAS, ERICA D Primary Care Unavailable SILVESTRE JAIN Referring Unavailable TALAMPAS, ERICA D Primary Care Unavailable ZAYDA JACKSON Attending Unavailable TALAMPAS, ERICA D Primary Care Unavailable SILVESTRE JAIN Attending Unavailable TALAMPAS, ERICA D Primary Care Unavailable SILVESTRE JAIN Referring Unavailable TALAMPAS, ERICA D Primary Care Unavailable Jennifer Otto Attending Unavailable AylanesJennifer kam Referring Unavailable Talampas, Erica D Primary Care Unavailable Jennifer Otto Attending Unavailable Talampas, Erica D Referring Unavailable Talampas, Erica D Primary Care Unavailable Sam Goodson Attending Unavailable Talampas, Erica D Referring Unavailable Talampas, Erica D Primary Care Unavailable Robotham, Raysa Attending Unavailable Talampas, Erica D Referring Unavailable Talampas, Erica D Primary Care Unavailable Sam Goodson Attending Unavailable Talampas, Erica D Referring Unavailable Talampas, Erica D Primary Care Unavailable Robotham, Raysa Attending Unavailable Talampas, Erica D Primary Care Unavailable Talampas, Erica D Referring Unavailable Talampas, Erica D Primary Care Unavailable Robotham, Raysa Attending Unavailable Talampas, Erica D Referring Unavailable Allergies Allergy Classification Reported Allergen(s) Allergy Type Date of Onset Reaction(s) Facility Acetaminophen / HYDROcodone (1 source) Acetaminophen / HYDROcodone Drug Allergy 02-08-20 05 Itching [facility] Work Phone: busPIRone (1 source) busPIRone Drug Allergy 09-15-19 15 Other: See Comments [facility] Work Phone: Codeine / guaiFENesin (1 source) Codeine / guaiFENesin Drug Allergy 11-24-19 14 Itching [facility] Work Phone: Corticosteroids (1 source) predniSONE Drug Allergy 12-25-19 10 Mental Status Change [facility] Doxycycline (1 source) Doxycycline Drug Allergy 04-13-19 14 Intolerance, Vomiting [facility] Work Phone: Iodine (and Iodine containting drugs) (1 source) Iodine Drug Allergy 04-08-19 04 [facility] Latex (1 source) Latex Substance Allergy 04-08-19 04 [facility] NSAIDs (2 sources) celecoxib Drug Allergy 11-07-19 13 Other: See Comments, Rash [facility] Opioid Agonists (1 source) Codeine Drug Allergy 02-27-19 07 GI Upset [facility] Work Phone: Penicillins (antibiotic) (1 source) Penicillins Drug Allergy 02-27-19 07 Swelling, Shortness of Breath [facility] Quinolones (antibiotic) (2 sources) Ciprofloxacin Drug Allergy 04-15-19 18 Diarrhea, GI Upset [facility] Sucralfate (1 source) Sucralfate Drug Allergy 12-13-19 07 [facility] (20 sources) acetaminophen / HYDROcodone; Translations: [HYDROCODONE-ACET AMINOPHEN] Drug Allergy 02-08-20 05 Itching [facility] Repository (20 sources) busPIRone; Translations: [BUSPIRONE HCL] Drug Allergy 09-15-19 15 Other: See Comments [facility] Rep[facility] (20 sources) celecoxib; Translations: [CELECOXIB] Drug Allergy 11-07-19 13 Other: See Comments [facility] (20 sources) codeine; Translations: [CODEINE] Drug Allergy 02-27-19 07 GI Upset [facility] (20 sources) codeine / guaiFENesin; Translations: [CHERATUSSIN] Drug Allergy 11-24-19 14 Itching [facility] Rep[facility] (20 sources) doxycycline; Translations: [DOXYCYCLINE] Drug Allergy 04-13-19 14 Intolerance, Vomiting [facility] Rep[facility] (20 sources) iodine; Translations: [IODINE] Drug Allergy 04-08-19 04 Swelling [facility] (20 sources) Latex; Translations: [LATEX] Propensity to adverse reactions (disorder) 04-08-19 04 Shortness of breath [facility] Rep[facility] (20 sources) levoFLOXacin; Translations: [LEVOFLOXACIN] Drug Allergy 04-15-19 18 GI Upset [facility] (20 sources) meloxicam; Translations: [MELOXICAM] Drug Allergy 05-18-19 14 Rash [facility] (20 sources) Penicillins; Translations: [PENICILLINS] Propensity to adverse reactions (disorder) 02-27-19 07 Swelling, Shortness of Breath [facility] (20 sources) predniSONE; Translations: [PREDNISONE] Drug Allergy 12-25-19 10 Mental Status Change [facility] (20 sources) sucralfate; Translations: [SUCRALFATE] Drug Allergy 12-13-19 07 [facility] (20 sources) Ciprofloxacin; Translations: [CIPROFLOXACIN] Drug Allergy 11-10-19 20 Diarrhea [facility] (1 source) Acetaminophen / HYDROcodone; Translations: [acetaminophen-hy drocodone] Drug Allergy itching and swelling [facility] (1 source) Penicillin; Translations: [penicillins] Drug Allergy [facility] (9 sources) HYDROcodone; Translations: [hydrocodone bitartrate] Drug Allergy 08-01-19 22 Nausea/Vom/Jeanne rrhea [facility] (6 sources) tositumomab Drug Allergy 11-19-19 22 NEEDS FOLLOW-UP [facility] (20 sources) Tirzepatide; Translations: [TIRZEPATIDE] Drug Intolerance 08-22-19 23 Diarrhea, Vomiting [facility] Work Phone: (1 source) tositumomab Drug Allergy 12-09-19 25 [facility] Repository Medications Current Medications Medication Drug Class(es) Dates Sig (Normalized) Sig (Original) albuterol 0.83 mg/ml inhalation solution (20 sources) beta2-Adrenergic Agonist Start: 08-18-2023 take 2 puff(s) by inhalation every four hours as needed for wheezing albuterol HFA (PROVENTIL HFA, VENTOLIN HFA) 90 mcg/actuation inhaler Inhale 2 Puffs as instructed every 4 hours as needed for wheezing/shortnes s of breath. 1 Each 1 08/18/2023 Active Start: 04-11-2023 End: 08-16-2023 take 2 puff(s) by inhalation every four hours as needed for wheezing albuterol HFA (PROVENTIL HFA, VENTOLIN HFA) 90 mcg/actuation inhaler Inhale 2 Puffs as instructed every 4 hours as needed for wheezing/shortness of breath. 1 Each 1 04/11/2023 08/16/2023 Discontinued Start: 01-30-2022 End: 03-18-2023 Albuterol Sulfate (Ventolin Hfa) 90 mcg/actuation HFA aerosol inhaler Active 2 NMA INHALATION Q4H as needed for shortness of breath or wheezing March 18, 2023 10:35am Start: 01-30-2022 take 1 puff(s) by in halation every four hours Albuterol Sulfate (Ventolin Hfa) 90 mcg/actuation HFA aerosol inhaler Active 2 PUFF INHALATION Q4H January 30, 2022 1:00am Start: 07-22-2019 End: 09-20-2022 take 2 puff(s) by inhalation every four hours as needed for wheezing albuterol HFA (PROVENTIL HFA, VENTOLIN HFA) 90 mcg/actuation inhaler Indications: QUEEN (dyspnea on exertion) Inhale 2 Puffs as instructed every 4 hours as needed for wheezing/shortness of breath. May give preferred namebrand (per formulary and/or patient preference) 3 Each 3 03/23/2022 09/20/2022 Discontinued Start: 05-26-2013 albuterol Inha lation Soln 2.5 mg/0.5 mL 0 Refill(s) Start Date: 4/2/14 Status: Ordered Start: 05-26-2013 take 1 dose by inhal ation every six hours as needed albuterol Inhalation Soln 2.5 mg/3 mL (0.083%) Dose : 2.5 mg = 3 mL, Inhalation, q6hr, PRN respiratory distress Start Date: 05/26/13 Status: Ordered Start: 11-23-2012 End: 09-24-2023 take 1 dose by inhalation every six hours for wheezing albuterol (PROVENTIL) 2.5 mg /3 mL (0.083 %) nebulizer solution inhale contents of one vial in nebulizer every 6 hours if needed for wheezing and shortness of breath 300 mL 5 09/24/2023 Active Comment on above: Inhale 2 Puffs as in structed every 4 hours as needed. May give preferred namebrand (per formulary and/or patient preference) inhale contents of o ne vial in nebulizer every 6 hours if needed for wheezing and shortness of breath Inhale 2 Puffs as in structed every 4 hours as needed for wheezing/shortness of breath. May give preferred namebrand (per formulary and/or patient preference) Inhale 2 Puffs as in structed every 4 hours as needed for wheezing/shortness of breath. albuterol MDI (90 mcg/inh) CFC free inhalation aerosol (1 source) Start: 4 take 2 puff(s) by inhalation every four hours as needed for wheezing albuterol MDI (90 mcg/inh) CFC free inhalation aerosol 2 puff(s), Inhalation, q4h, PRN for wheezing Start Date: 05/26/13 Status: Ordered Uacgu-Cqee-Fftqr-Co llag-Mv-Min (Juan (With Collagen)) 7-7-1.5 gram Powder In Packet (1 source) Start: 2 Vwkik-Ldhh-Cwixy-C kxitx-Sy-Sgf (Juan (With Collagen)) 7-7-1.5 gram Powder In Packet Active 1 PACKET PO TWICE DAILY WITH MEALS 0 August 15, 2021 12:00am ascorbic acid 500 mg oral tablet (20 sources) Vitamin C Start: 4 End: 6 take 1 tablet by mouth once daily ascorbic acid, vitamin C, (VITAMIN C) 500 mg tablet Take 1 tablet by mouth once daily. 90 tablet 3 10/27/2024 10/27/2025 Active Start: 03-18-2023 take 1 tablet by mouth once da wendy ascorbic acid, vitamin C, (VITAMIN C) 500 mg tablet Take 1 tablet by mouth once daily. 90 tablet 1 03/18/2023 Active Start: 11-18-2022 take 1 tablet by mouth once da wendy ascorbic acid, vitamin C, (VITAMIN C) 500 mg tablet Take 1 tablet by mouth once daily. 90 tablet 1 11/18/2022 Active Start: 08-15-2021 take 1 tablet by juan f th twice daily at mealtime Ascorbic Acid (Vitamin C) 500 mg Tablet Active 500 mg PO TWICE DAILY WITH MEALS 0 0 August 15, 2021 12:00am Comment on above: Take 1 tablet by juan f th once daily. atorvastatin 10 mg oral tablet (20 sources) HMG-CoA Reductase Inhibitor Start: End: take 1 tablet by mouth once daily atorvastatin (LIPITOR) 10 mg tablet Take 1 tablet by mouth once daily. 90 tablet 3 10/27/2024 10/27/2025 Active Start: 07-16-2017 End: 11-05-2022 take 1 tablet by mouth once daily atorvastatin (LIPITOR) 40 mg tablet Take 1 tablet by mouth once daily. 30 tablet 11 04/06/2022 11/05/2022 Discontinued Comment on above: Take 1 tablet by juan f th once daily. bisacodyl 10 mg rectal suppository (3 sources) Stimulant Laxative Start: 11-18-2021 Bisacodyl (Dulcolax (Bisacodyl)) 10 mg Suppository Active 10 MG RC DAILY November 18, 2021 12:00am Blood Pressure Test Kit-Large (QUICK RESPONSE BP MONITOR) (20 sources) Start: 08-21-2022 Blood Pressure Test Kit-Large (QUICK RESPONSE BP MONITOR) Check blood pressure daily or as needed. I10 Hypertension 1 Each 08/21/2022 Active Start: 08-21-2022 Blood Pressure Test Kit-Large (QUICK RESPONSE BP MONITOR) Check blood pressure daily or as needed. I10 Hypertension 1 Each 0 08/21/2022 Active Comment on above: Check blood pressure daily or as needed. I10 Hypertension Blood-Glucose Meter (11 sources) Start: 09-21-2024 End: 09-21-2025 Blood-Glucose Meter Indications: Type 2 diabetes (HCC) 1 device as directed. 1 each 09/21/2024 09/21/2025 Active Blood-Glucose Meter monitoring kit (4 sources) Start: 11-19-2022 End: 11-20-2022 Blood-Glucose Meter monitoring kit Glucose Meter of Choice - Kit - Dx: Type 2 DM - Controlled E11.9 1 Each 0 11/19/2022 11/20/2022 Active Start: 02-06-2022 End: 02-07-2022 Blood-Glucose Meter monitori ng kit Glucose Meter of Choice - Kit - Dx: Type 2 DM - Controlled E11.9 pt tests 4 times per day and not on insulin 1 Each 0 02/06/2022 02/07/2022 Active Comment on above: Glucose Meter of Cho ice - Kit - Dx: Type 2 DM - Controlled E11.9 pt tests 4 times per day and not on insulin Glucose Meter of Cho ice - Kit - Dx: Type 2 DM - Controlled E11.9 24 hr buPROPion hydrochloride 300 mg extended release oral tablet (20 sources) Aminoketone Start: End: take 1 tablet by mouth once daily buPROPion XL (WELLBUTRIN XL) 300 mg 24 hr tablet Indications: Reactive depression Take 1 tablet by mouth once daily. 30 tablet 11 10/27/2024 Active Start: 02-11-2023 End: 04-14-2023 take 1 tablet by mouth once daily buPROPion XL (WELLBUTRIN XL) 150 mg 24 hr tablet Indications: Reactive depression take 1 tablet by mouth once daily 30 tablet 2 02/11/2023 04/14/2023 Discontinued Start: 11-05-2022 take 1 tablet by juan f th once daily buPROPion XL (WELLBUTRIN XL) 150 mg 24 hr tablet Indications: Reactive depression Take 1 tablet by mouth once daily. 30 tablet 2 11/05/2022 Active Start: 07-02-2021 End: 03-02-2022 take 1 tablet by mouth once daily buPROPion XL (WELLBUTRIN XL) 150 mg 24 hr tablet Indications: Reactive depression , Anxiety state Take 1 tablet by mouth once daily. 30 tablet 11 07/02/2021 03/02/2022 Discontinued Comment on above: Take 1 tablet by juan f th once daily. take 1 tablet by juan f th once daily busPIRone hydrochloride 5 mg oral tablet (1 source) Start: 08-16-19 take 10 mg by mouth three times daily Buspirone Active 10 MG PO THREE TIMES A DAY 0 August 15, 2021 12:00am cephalexin 500 mg oral capsule (19 sources) Cephalosporin Antibacterial Start: 07-19-19 End: 07-26-19 take 1 capsule by mouth three times daily cephALEXin (KEFLEX) 500 mg capsule Indications: Dysuria Take 1 capsule by mouth three times a day for 7 days. 21 capsule 07/18/2024 07/25/2024 Active Start: 10-04-2022 End: 10-11-2022 take 1 capsule by mouth three times daily at mealtime cephALEXin (KEFLEX) 500 mg capsule Indications: Skin infection Take 1 capsule by mouth three times daily for 7 days. Take with food 21 capsule 0 10/04/2022 10/11/2022 Active Start: 08-22-2022 End: 08-29-2022 take 1 capsule by mouth three times daily at mealtime cephALEXin (KEFLEX) 500 mg capsule Indications: Skin infection Take 1 capsule by mouth three times daily for 7 days. Take with food 21 capsule 0 08/22/2022 08/29/2022 Active Start: 05-30-2022 End: 06-06-2022 take 1 capsule by mouth three times daily at mealtime cephALEXin (KEFLEX) 500 mg capsule Indications: Dental infection Take 1 capsule by mouth three times daily for 7 days. Take with food 21 capsule 0 05/30/2022 06/06/2022 Active Start: 05-08-2022 End: 05-15-2022 take 1 capsule by mouth three times daily cephALEXin (KEFLEX) 500 mg capsule Indications: Dysuria Take 1 capsule by mouth three times daily for 7 days. 21 capsule 0 05/08/2022 05/15/2022 Start: 02-16-2022 End: 02-23-2022 take 1 capsule by mouth three times daily cephALEXin (KEFLEX) 500 mg capsule Indications: Dysuria Take 1 capsule by mouth three times daily for 7 days. 21 capsule 0 02/16/2022 02/23/2022 Comment on above: Take 1 capsule by mo uth three times daily for 7 days. Take 1 capsule by mo uth three times daily for 7 days. Take with food cholecalciferol 0.125 mg oral capsule (20 sources) Vitamin D Start: 04-29-2024 take 1 capsule by mouth once daily Cholecalciferol, Vitamin D3, 125 mcg (5,000 unit) cap Take 1 capsule by mouth once daily. 90 capsule 3 04/29/2024 Active Start: 06-30-2023 take 1 capsule by mo uth once daily Cholecalciferol (Vitamin D3) 50 mcg (2,000 unit) capsule Active 50 ug PO daily June 30, 2023 12:00am Start: 05-26-2023 End: 04-29-2024 take 2 capsules by mouth once daily Cholecalciferol, Vitamin D3, 50 mcg (2,000 unit) cap Take 2 capsules by mouth once daily. 180 capsule 2 05/26/2023 04/29/2024 Discontinued Start: 05-23-2023 End: 05-26-2023 take 1 capsule by mouth once daily Cholecalciferol, Vitamin D3, 50 mcg (2,000 unit) cap Take 1 capsule by mouth once daily. 90 capsule 2 05/23/2023 05/26/2023 Discontinued Start: 03-18-2023 take 1 capsule by mo uth once daily Cholecalciferol, Vitamin D3, 50 mcg (2,000 unit) cap Take 1 capsule by mouth once daily. 90 capsule 2 03/18/2023 Active Start: 11-08-2022 take 1 capsule by mo uth once daily Cholecalciferol, Vitamin D3, 50 mcg (2,000 unit) cap Take 1 capsule by mouth once daily. 90 capsule 2 11/08/2022 Active Comment on above: Take 1 capsule by mo uth once daily. Take 2 capsules by [facility] once daily. clindamycin 300 mg oral capsule (8 sources) Lincosamide Antibacterial Start: End: take 1 capsule by mouth three times daily clindamycin (CLEOCIN) 300 mg capsule Indications: Dental infection Take 1 capsule by mouth three times a day for 10 days. 30 capsule 10/21/2023 10/31/2023 Active Start: 07-21-2023 End: 07-26-2023 take 3 capsules by mouth three times daily clindamycin (CLEOCIN) 150 mg capsule Take 3 capsules by mouth three times a day for 5 days. 45 capsule 0 07/21/2023 07/26/2023 Active Start: 05-05-2023 End: 05-12-2023 take 1 capsule by mouth three times daily clindamycin (CLEOCIN) 300 mg capsule Take 1 capsule by mouth three times a day for 7 days. 21 capsule 0 05/05/2023 05/12/2023 Comment on above: Take 1 capsule by [facility] three times a day for 7 days. COMPOUNDED PRESCRIPTION (20 sources) Start: 01-25-2015 COMPOUNDED PRESCRIPTION Indications: Spinal stenosis, lumbar region, without neurogenic claudication TENS Unit 4 lead. Use as directed. Needs refills for leads 1 per month as needed Dispense 1 with 5 refills. (M48.06) Spinal stenosis, lumbar region, without neurogenic claudication 1 Each 0 01/25/2015 Active Comment on above: TENS Unit 4 lead. Us e as directed. Needs refills for leads 1 per month as needed Dispense 1 with 5 refills. (M48.06) Spinal stenosis, lumbar region, without neurogenic claudication CPAP (20 sources) Start: 05-26-2020 CPAP Indications: HONEY (obstructive sleep apnea) AutoPAP 5-12 CM H2O with humidification. Mask (per patient preference) optional chin strap (if indicated) , filters, tubing, humidifier and lifetime supplies. 1 Device 05/26/2020 Active Start: 05-26-2020 CPAP Indicatio ns: HONEY (obstructive sleep apnea) AutoPAP 5-12 CM H2O with humidification. Mask (per patient preference) optional chin strap (if indicated) , filters, tubing, humidifier and lifetime supplies. 1 Device 0 05/26/2020 Active Comment on above: AutoPAP 5-12 CM H2O with humidification. Mask (per patient preference) optional chin strap (if indicated) , filters, tubing, humidifier and lifetime supplies. cyclobenzaprine hydrochloride 5 mg oral tablet (20 sources) Muscle Relaxant Start: 021 End: 025 take 1-2 tablets by mouth three times daily as needed for muscle spasms cyclobenzaprine (FLEXERIL) 5 mg tablet Indications: Leg cramp , Muscle spasm Take 1-2 tablets by mouth three times a day as needed for muscle spasm. 90 tablet 1 10/27/2024 Active Start: 05-26-2013 Flexeril 10 mg oral tablet Dose : 10 mg = 1 tab(s), Oral, TID, PRN Muscle spasm for muscle spasm Start Date: 05/26/13 Status: Ordered Comment on above: Take 1 tablet by juan f th three times daily as needed. Diaper,Brief, Adult,Disposable (DISPOSABLE BRIEF) (20 sources) Start: 08-21-2022 Diaper,Brief, Adult,Disposable (DISPOSABLE BRIEF) Indications: Morbid obesity (HCC) , Ulcer of left lower extremity, limited to breakdown of skin (HCC) Bariatric Briefs - Prevail #10 (thickest brief). 5 per day. 150 Each 1 08/21/2022 Active Start: 02-27-2022 End: 08-21-2022 Diaper,Brief, Adult,Disposab le (DISPOSABLE BRIEF) Indications: Morbid obesity (HCC) , Ulcer of left lower extremity, limited to breakdown of skin (HCC) Bariatric Briefs - Prevail. Going thru [employer]. 2 per day. 96 Each 1 02/27/2022 08/21/2022 Discontinued Start: 02-27-2022 Diaper,Brief, Adult,Disposable (DISPOSABLE BRIEF) Indications: Morbid obesity (HCC) , Ulcer of left lower extremity, limited to breakdown of skin (HCC) Bariatric Briefs - Prevail. Going thru [employer]. 2 per day. 96 Each 1 02/27/2022 Active Comment on above: Bariatric Briefs - P revail. Going thru [employer]. 2 per day. Bariatric Briefs - P revail #10 (thickest brief). 5 per day. diclofenac sodium 0.01 mg/mg topical gel (20 sources) Nonsteroidal Anti-inflammatory Drug Start: apply 4 g topically four times daily diclofenac (VOLTAREN) 1 % topical gel Indications: Chronic pain of right knee Apply 4 g to affected area four times daily. 450 g 2 05/07/2024 Active Start: 11-18-2021 Diclofenac Sod ium 1 % Gel Active 1 NMA TOPICAL NEEDED as needed for Pain November 18, 2021 12:00am Start: 11-18-2021 Diclofenac Sod ium Active 1 EACH TOPICAL NEEDED November 18, 2021 12:00am Start: 11-18-2021 Diclofenac Sod ium (Voltaren) 1 % Gel Active EACH TOPICAL November 18, 2021 12:00am Start: 05-26-2013 diclofenac 3% topical gel Apply 1 cj, Topical, BID Start Date: 05/26/13 Status: Ordered dicyclomine hydrochloride 10 mg oral capsule (20 sources) Anticholinergic Start: 09-24-2023 End: 07-06-2024 take 1 capsule by mouth at bedtime dicyclomine (BENTYL) 10 mg capsule Indications: Left lower quadrant abdominal pain , Diverticulitis Take 1 capsule by mouth before meals and at bedtime. 120 capsule 5 07/06/2024 Active Start: 08-19-2022 End: 08-27-2023 take 1 capsule by mouth three times daily dicyclomine (BENTYL) 10 mg capsule Indications: Left lower quadrant abdominal pain Take 1 capsule by mouth three times a day. 90 capsule 1 01/01/2023 08/27/2023 Discontinued Start: 08-19-2022 End: 12-26-2023 take 2 capsules by mouth three times daily before mealtime Dicyclomine 10 mg Capsule Discontinued 20 mg PO THREE TIMES DAILY BEFORE MEALS August 19, 2022 12:00am December 26, 2023 1:27pm Start: 08-19-2022 take 20 mg by mouth three times daily before mealtime Dicyclomine Active 20 MG PO THREE TIMES DAILY BEFORE MEALS August 19, 2022 12:00am Start: 01-07-2020 End: 01-17-2021 take 1 capsule by mouth three times daily before mealtime dicyclomine (BENTYL) 10 mg capsule Indications: Epigastric pain Take 1 capsule by mouth three times daily before meals. 90 capsule 2 01/07/2020 01/17/2021 Discontinued Comment on above: Take 1 capsule by mo uth three times daily before meals. Take 1 capsule by mo uth three times daily. Take 1 capsule by mo uth three times a day. Erythromycin (3 sources) Macrolide, Macrolide Antimicrobial Start: 11-19-19 Erythromycin Active 1 EACH TOPICAL 1 time daily November 18, 2021 12:00am ribbon to L EYE flash glucose scanning reader ([employer] SHAKIRA 2 READER) (1 source) Start: 04-09-19 End: 04-10-19 flash glucose scanning reader ([employer] SHAKIRA 2 READER) Use to check blood sugar at least four (4) times daily. 1 Each 0 04/09/2022 04/10/2022 Active Comment on above: Use to check blood s ugar at least four (4) times daily. fluticasone propionate 0.05 mg/actuat metered dose nasal spray (20 sources) Corticosteroid Start: 08-17-19 take 1 spray(s) nasal route once daily at bedtime fluticasone (FLONASE) 50 mcg/actuation nasal spray Indications: Allergic rhinitis, unspecified seasonality, unspecified trigger Use 1 spray in each nostril daily at bedtime. 1 each 3 08/16/2024 Active Start: 03-30-2019 End: 10-29-2024 take 2 spray(s) nasal route once daily as needed fluticasone (FLONASE) 50 mcg/actuation nasal spray Indications: Allergic rhinitis, unspecified seasonality, unspecified trigger Use 2 Sprays in each nostril once daily as needed. 3 Each 3 09/24/2023 10/29/2024 Discontinued Start: 02-22-2016 End: 01-30-2022 Fluticasone Propionate 50 mcg/actuation spray,suspension Active 2 NMA NASAL DAILY as needed for Sinus Symptoms 09 08January 30, 2022 11:11am Start: 02-22-2016 End: 01-30-2022 Fluticasone Propionate Activ e 2 SPRAY NASAL DAILY January 30, 2022 11:11am Comment on above: Use 2 Sprays in each nostril once daily as needed. folic acid 1 mg oral tablet (9 sources) Start: 09-24-2024 take 1 tablet by mouth once daily folic acid 1 mg tablet Indications: Anemia due to folic acid deficiency, unspecified deficiency type Take 1 tablet by mouth once daily. 90 tablet 3 09/24/2024 Active 60 actuat formoterol fumarate 0.005 mg/actuat / mometasone furoate 0.2 mg/actuat metered dose inhaler (20 sources) Corticosteroid, beta2-Adrenergic Agonist Start: 08-18-2023 End: 10-26-2024 take 1 puff(s) by mouth twice daily mometasone-formoterol (DULERA) 200-5 mcg/actuation inhaler Indications: Moderate persistent asthma without complication (HCC) Inhale 1 puff as instructed two times a day. Rinse mouth after use. 1 each 11 10/27/2024 Active Start: 04-14-2023 End: 08-16-2023 take 1 puff(s) by mouth twice daily mometasone-formoterol (DULERA) 200-5 mcg/actuation inhaler Indications: Moderate persistent asthma without complication Inhale 1 Puff as instructed two times a day. Rinse mouth after use. 1 Each 2 04/14/2023 08/16/2023 Discontinued Start: 08-14-2020 End: 11-05-2022 take 2 puff(s) by inhalation twice daily mometasone-formoterol (DULERA) 200-5 mcg/actuation inhaler Inhale 2 Puffs as instructed twice daily. 1 Inhaler 11 08/14/2020 11/05/2022 Discontinued Comment on above: Inhale 2 Puffs as in structed twice daily. Inhale 1 Puff as ins tructed two times a day. Rinse mouth after use. furosemide 20 mg oral tablet (20 sources) Loop Diuretic Start: 06-30-2023 take 1 tablet by mouth once daily as needed Furosemide 40 mg tablet Active 40 mg PO daily as needed June 30, 2023 12:00am Start: 08-26-2022 End: 08-30-2024 take 1-2 tablets by mouth once daily as needed for edema furosemide (LASIX) 20 mg tablet TAKE 1-2 TABLETS BY MOUTH ONCE DAILY NEEDED FOR EDEMA/ FLUID RETENTION 60 tablet 10 08/30/2024 Active Start: 11-20-2021 End: 08-21-2022 take 1 tablet by mouth once daily Furosemide (Lasix) 40 mg tablet Discontinued 40 mg PO DAILY 1 November 20, 2021 12:00am August 19, 2022 3:44pm start on 11/23/21 Start: 11-18-2021 End: 11-20-2021 take 2 tablets by mouth once daily Furosemide 40 mg tablet Discontinued 80 mg PO DAILY November 18, 2021 7:14pm November 20, 2021 11:50am Start: 11-18-2021 End: 11-20-2021 take 80 mg by mouth once daily Furosemide Discontinued 80 MG PO DAILY November 18, 2021 7:14pm November 20, 2021 11:50am Start: 08-15-2021 End: 11-18-2021 take 1 tablet by mouth once daily Furosemide 40 mg Tablet Discontinued 40 mg PO DAILY 0 0 August 15, 2021 12:00am November 18, 2021 7:14pm Start: 01-24-2016 End: 02-15-2022 take 2 tablets by mouth twice daily furosemide (LASIX) 40 mg tablet Indications: Bilateral leg edema Take 2 tablets by mouth twice daily. 120 tablet 11 07/05/2021 02/15/2022 Discontinued Start: 01-24-2016 End: 08-15-2021 take 80 mg by mouth twice daily Furosemide Discontinue d 80 MG PO TWICE DAILY January 24, 2016 1:00am August 15, 2021 10:56am Start: 05-26-2013 Lasix 40 mg or al tablet Dose : 40 mg = 1 tab(s), Oral, Daily Start Date: 05/26/13 Status: Ordered Comment on above: Take 2 tablets by mo [facility] twice daily. Take 1 tablet by juan f once daily. Take 1-2 tablets by mouth once daily as needed (edema/fluid retention). TAKE 1-2 TABLETS BY MOUTH ONCE DAILY NEEDED FOR EDEMA/ FLUID RETENTION 1.5 ml insulin glargine 300 unt/ml pen injector (12 sources) Insulin Analog Start: 11-18-2021 Insulin Glargine U-300 Conc (Toujeo Solostar U-300 Insulin) 300 unit/mL (1.5 mL) Insulin Pen Active 40 UNIT SC DAILY November 18, 2021 12:00am Start: 12-06-2019 End: 01-15-2021 insulin glargine U-300 conc (TOUJEO SOLOSTAR U-300 INSULIN) 300 unit/mL (1.5 mL) Inject 95 Units subcutaneously every morning. 10 Pen 11 12/06/2019 01/15/2021 Discontinued Start: 01-24-2016 End: 08-15-2021 Insulin Glargine U-300 Conc (Toujeo Solostar) 300 UNIT/ML insulin pen Discontinued 65 U SQ AT BEDTIME January 24, 2016 1:00am August 15, 2021 10:56am Comment on above: Inject 95 Units subc utaneously every morning. ipratropium bromide 0.2 mg/ml inhalation solution (20 sources) Anticholinergic Start: 09-23-19 End: 09-24-19 24 take 0.5 mg by inhalation every six hours as needed ipratropium (ATROVENT) 0.02 % nebulizer solution Use 2.5 mL via nebulizer four times a day as needed (wheezing). Use over 5-15minutes. Use in addition to albuterol nebulizer. 250 mL 5 09/24/2023 Active Start: 04-14-2020 End: 09-20-2022 take 0.5 mg by inhalation every six hours as needed ipratropium (ATROVENT) 0.02 % nebulizer solution Use 2.5 mL via nebulizer four times daily as needed (wheezing). Use over 5-15minutes. Use in addition to albuterol nebulizer. 250 mL 5 09/19/2022 09/20/2022 Discontinued Start: 04-14-2020 End: 09-20-2022 take 2 spray(s) nasal route four times daily ipratropium bromide (ATROVENT) 42 mcg (0.06 %) nasal spray Indications: Chronic nasal congestion , Allergic rhinitis, unspecified seasonality, unspecified trigger Use 2 Sprays in each nostril four times daily. 15 mL 1 08/21/2022 09/20/2022 Discontinued Comment on above: Use 2 Sprays in each nostril four times daily. Use 2.5 mL via nebul izer four times daily as needed (wheezing). Use over 5-15minutes. Use in addition to albuterol nebulizer. lactulose 667 mg/ml oral solution (2 sources) Osmotic Laxative Start: 2 take 20 g by mouth twice daily Lactulose Active 20 GM PO TWICE A DAY 1199November 20, 2021 12:00am stop if patient having diarrhea LORazepam 1 mg oral tablet (20 sources) Benzodiazepine Start: 5 End: 5 take 0.5-1 tablets by mouth once daily as needed for anxiety LORazepam (ATIVAN) 1 mg tablet Indications: Anxiety state Take 0.5-1 tablets by mouth once daily as needed for anxiety for up to 30 days. 30 tablet 10/08/2024 Active Start: 04-12-2024 End: 08-15-2024 take 0.5-1 tablets by mouth once daily as needed for anxiety LORazepam (ATIVAN) 1 mg tablet Indications: Anxiety state Take 0.5-1 tablets by mouth once daily as needed for anxiety for up to 30 days. 30 tablet 07/16/2024 Active Start: 02-24-2024 End: 04-12-2024 LORazepam (ATIVAN) 1 mg tabl et Indications: Anxiety state Take 0.5-1 tablets by mouth once daily as needed for anxiety for up to 30 days. Patient should start on February 24, 2024. 30 tablet 02/24/2024 04/12/2024 Discontinued Start: 09-24-2023 End: 02-24-2024 LORazepam (ATIVAN) 1 mg tabl et Indications: Anxiety state Take 0.5-1 tablets by mouth once daily as needed for anxiety for up to 30 days. Patient should start on January 25, 2024. 30 tablet 01/25/2024 02/20/2024 Discontinued Start: 08-18-2023 End: 09-17-2023 take 0.5-1 tablets by mouth once daily as needed for anxiety LORazepam (ATIVAN) 1 mg tablet Indications: Anxiety state Take 0.5-1 tablets by mouth once daily as needed for anxiety for up to 30 days. 30 tablet 0 08/18/2023 Active Start: 06-26-2023 End: 08-16-2023 take 0.5-1 tablets by mouth once daily as needed for anxiety LORazepam (ATIVAN) 1 mg tablet Indications: Anxiety state Take 0.5-1 tablets by mouth once daily as needed for anxiety for up to 30 days. 30 tablet 0 06/26/2023 08/16/2023 Discontinued Start: 05-14-2023 End: 06-26-2023 LORazepam (ATIVAN) 1 mg tabl et Indications: Anxiety state Take 0.5-1 tablets by mouth once daily as needed for anxiety for up to 30 days. Do not start before May 14, 2023. 30 tablet 0 05/14/2023 06/26/2023 Discontinued Start: 02-21-2023 End: 05-14-2023 take 0.5-1 tablets by mouth once daily as needed for anxiety LORazepam (ATIVAN) 1 mg tablet Indications: Anxiety state Take 0.5-1 tablets by mouth once daily as needed for anxiety for up to 30 days. 30 tablet 0 04/14/2023 05/07/2023 Discontinued Start: 01-18-2023 End: 02-17-2023 take 0.5-1 tablets by mouth once daily as needed for anxiety LORazepam (ATIVAN) 1 mg tablet Indications: Anxiety state Take 0.5-1 tablets by mouth once daily as needed for anxiety for up to 30 days. 30 tablet 0 01/18/2023 02/17/2023 Active Start: 09-22-2022 End: 01-03-2023 take 0.5-1 tablets by mouth once daily as needed for anxiety LORazepam (ATIVAN) 1 mg tablet Indications: Anxiety state Take 0.5-1 tablets by mouth once daily as needed for anxiety for up to 30 days. 30 tablet 0 12/04/2022 Active Start: 08-15-2022 End: 09-20-2022 LORazepam (ATIVAN) 1 mg tabl et Indications: Anxiety state Take 0.5-1 tablets by mouth once daily as needed for anxiety for up to 30 days. Do not start before August 15, 2022. 30 tablet 0 08/15/2022 09/20/2022 Discontinued Start: 07-16-2022 End: 08-15-2022 take 0.5-1 tablets by mouth once daily as needed for anxiety LORazepam (ATIVAN) 1 mg tablet Indications: Anxiety state Take 0.5-1 tablets by mouth once daily as needed for anxiety for up to 30 days. 30 tablet 0 07/16/2022 07/31/2022 Discontinued Start: 02-25-2022 End: 06-28-2022 take 0.5-1 tablets by mouth once daily as needed for anxiety LORazepam (ATIVAN) 1 mg tablet Indications: Anxiety state Take 0.5-1 tablets by mouth once daily as needed for anxiety for up to 30 days. 30 tablet 0 05/29/2022 Active Start: 02-11-2021 End: 02-23-2022 LORazepam (ATIVAN) 1 mg tabl et Indications: Anxiety state Take half to 1 whole tablet daily as needed 24 tablet 0 07/04/2021 02/23/2022 Discontinued Start: 09-27-2014 End: 11-20-2021 take 1 tablet by mouth twice daily as needed for anxiety Lorazepam 1 mg Tablet Discontinued 1 mg PO TWICE DAILY NEEDED as needed for Anxiety 6 3 0 August 15, 2021 12:00am November 20, 2021 11:52am Start: 05-26-2013 End: 11-23-2020 LORazepam (ATIVAN) 1 mg tabl et Indications: Anxiety state Take half to 1 whole tablet daily as needed 24 tablet 0 10/25/2020 11/23/2020 Discontinued Comment on above: Take half to 1 whole tablet daily as needed Take half to 1 whole tablet daily as needed Do not start before March 21, 2022. Take 0.5-1 tablets b y mouth once daily as needed for anxiety for up to 30 days. Take 0.5-1 tablets b y mouth once daily as needed for anxiety for up to 30 days. Do not start before August 15, 2022. Take 0.5-1 tablets b y mouth once daily as needed for anxiety for up to 30 days. Do not start before May 14, 2023. losartan potassium 50 mg oral tablet (20 sources) Angiotensin 2 Receptor Eric Start: 06-30-2023 take 2 tablets by mouth once daily Losartan 50 mg tablet Active 100 mg PO DAILY June 30, 2023 1:14pm Start: 01-30-2022 End: 06-30-2023 take 1 tablet by mouth once daily Losartan 50 mg tablet Discontinued 50 mg PO DAILY January 30, 2022 1:00am June 30, 2023 1:16pm Start: 11-23-2012 End: 09-07-2024 take 1 tablet by mouth once daily Losartan 100 MG tablet Discontinued 100 mg PO DAILY November 23, 2012 12:00am August 15, 2021 10:57am Comment on above: Take 1 tablet by juan f th once daily. Magnesium (8 sources) Start: 07-31-2021 take 250 mg by mouth once daily Magnesium Active 250 MG PO DAILY July 31, 2021 3:08pm Start: 07-31-2021 End: 08-15-2021 take 1 tablet by mouth once daily Magnesium 250 mg Tablet Discontinued 250 mg PO DAILY July 31, 2021 12:00am August 15, 2021 10:57am supplement Start: 07-31-2021 End: 08-15-2021 take 250 mg by mouth once daily Magnesium Discontinued 250 MG PO DAILY July 31, 2021 12:00am August 15, 2021 10:57am meloxicam 15 mg oral tablet (1 source) Nonsteroidal Anti-inflammatory Drug Start: 05-26-2013 meloxicam 15 mg oral tablet Dose : 15 mg = 1 tab(s), Oral, qDayM Start Date: 05/26/13 Status: Ordered 24 hr metFORMIN hydrochloride 500 mg extended release oral tablet (20 sources) Biguanide Start: 04-29-2024 End: 09-28-2024 take 1 tablet by mouth once daily metFORMIN ER (GLUCOPHAGE XR) 500 mg 24 hr tablet Take 1 tablet by mouth once daily. 30 tablet 2 09/28/2024 Active Start: 05-26-2013 metFORMIN 500 mg oral tablet Dose : 500 mg = 1 tab(s), Oral, BIDM Start Date: 05/26/13 Status: Ordered metOLazone 5 mg oral tablet (20 sources) Thiazide-like Diuretic Start: 12-06-2022 End: 01-25-2025 take 1 tablet by mouth once daily as needed metOLazone (ZAROXOLYN) 5 mg tablet Take 1 tablet by mouth once daily as needed. Take 1/2 hour before lasix. 30 tablet 2 10/27/2024 01/25/2025 Active Start: 07-29-2021 End: 08-15-2021 take 1 tablet by mouth twice daily as needed Metolazone 5 mg tablet Discontinued 5 mg PO TWICE A DAY as needed for fluid July 31, 2021 12:00am August 15, 2021 10:57am Start: 08-14-2020 End: 09-02-2022 metOLazone (ZAROXOLYN) 5 mg tablet Indications: Bilateral leg edema take 1 tablet by mouth 30 MINUTES PRIOR TO TAKING LASIX IF NEEDED FOR INCREASED SWELLING DIRECTED 90 tablet 1 03/23/2022 09/02/2022 Discontinued Comment on above: take 1 tablet by juan f th 30 MINUTES PRIOR TO TAKING LASIX IF NEEDED FOR INCREASED SWELLING DIRECTED Take 1 tablet by juan f th once daily as needed. Take 1/2 hour before lasix. metroNIDAZOLE 500 mg oral tablet (11 sources) Nitroimidazole Antimicrobial Start: 08-04-19 End: 09-06-19 take 1 tablet by mouth every eight hours metroNIDAZOLE (FLAGYL) 500 mg tablet Indications: Diverticulitis Take 1 tablet by mouth every 8 hours for 10 days. 30 tablet 0 08/27/2023 09/06/2023 Active Miscellaneous Medical Supply (20 sources) Start: 10-29-19 20 Miscellaneous Medical Supply Indications: Hypoxemia requiring supplemental oxygen Order: Overnight pulse ox on 4LPM Diagnosis: R09.02 (checking if needs O2 increased at night) 1 Each 10/29/2019 Active Start: 10-29-2019 Miscellaneous Medical Supply Indications: Hypoxemia requiring supplemental oxygen Order: Overnight pulse ox on 4LPM Diagnosis: R09.02 (checking if needs O2 increased at night) 1 Each 0 10/29/2019 Active Comment on above: Order: Overnight pul se ox on 4LPM Diagnosis: R09.02 (checking if needs O2 increased at night) Mometasone-Formotero l (Dulera) 200-5 mcg/actuation HFA aerosol inhaler (1 source) Start: 4 Mometasone-Formotero l (Dulera) 200-5 mcg/actuation HFA aerosol inhaler Active 2 NMA INHALATION TWICE A DAY June 30, 2023 12:00am montelukast 10 mg oral tablet (20 sources) Leukotriene Receptor Antagonist Start: 1 End: 5 take 1 tablet by mouth once daily at bedtime montelukast (SINGULAIR) 10 mg tablet Indications: Allergic rhinitis, unspecified seasonality, unspecified trigger Take 1 tablet by mouth daily at bedtime. 30 tablet 11 10/27/2024 Active Comment on above: Take 1 tablet by juan f th daily at bedtime. Nebulizer (20 sources) Start: 5 Nebulizer Indications: Mild intermittent asthma without complication (HCC) NEBULIZER FOR HOME USE. DX: (J45.20) Mild intermittent asthma without complication 1 Device 0 12/06/2014 Active Start: 12-06-2014 Nebulizer Gloria cations: Mild intermittent asthma without complication NEBULIZER FOR HOME USE. DX: (J45.20) Mild intermittent asthma without complication 1 Device 0 12/06/2014 Active Comment on above: NEBULIZER FOR HOME U SE. DX: (J45.20) Mild intermittent asthma without complication nitrofurantoin, macrocrystals 25 mg / nitrofurantoin, monohydrate 75 mg oral capsule (20 sources) Nitrofuran Antibacterial Start: 10-02-19 End: 11-06-19 take 1 capsule by mouth twice daily nitrofurantoin monohydrate and macrocrystal (MACROBID) 100 mg capsule Take 1 capsule by mouth two times a day for 7 days. 14 capsule 10/29/2024 11/05/2024 Active Start: 06-23-2024 End: 06-30-2024 take 1 capsule by mouth twice daily at mealtime nitrofurantoin monohydrate and macrocrystal (MACROBID) 100 mg capsule Indications: Acute cystitis with hematuria Take 1 capsule by mouth two times a day with meals for 7 days. 14 capsule 06/23/2024 06/30/2024 Active Start: 02-21-2024 End: 05-07-2024 take 1 capsule by mouth twice daily nitrofurantoin monohydrate and macrocrystal (MACROBID) 100 mg capsule Indications: Dysuria Take 1 capsule by mouth two times a day. 14 capsule 02/21/2024 05/07/2024 Discontinued Start: 05-23-2023 End: 08-27-2023 take 1 capsule by mouth twice daily nitrofurantoin monohydrate and macrocrystal (MACROBID) 100 mg capsule Indications: Dysuria Take 1 capsule by mouth two times a day. 14 capsule 05/23/2023 08/27/2023 Discontinued Start: 11-26-2022 End: 12-03-2022 take 1 capsule by mouth twice daily at mealtime nitrofurantoin monohydrate and macrocrystal (MACROBID) 100 mg capsule Indications: Dysuria Take 1 capsule by mouth two times a day with meals for 7 days. 14 capsule 0 11/26/2022 12/03/2022 Comment on above: Take 1 capsule by mo ut two times a day with meals for 7 days. Take 1 capsule by mo ut two times a day. nystatin 100 unt/mg topical powder (20 sources) Polyene Antifungal Start: 05-21-2022 End: 09-28-2024 nystatin (MYCOSTATIN) powder Apply 1 application to affected area four times daily. 60 g 11 09/28/2024 Active Start: 03-26-2022 End: 02-14-2023 nystatin (MYCOSTATIN) powder Apply 1 application to affected area four times daily for 14 days. 60 g 2 03/26/2022 04/09/2022 Start: 08-15-2021 End: 11-20-2021 Nystatin (Nyamyc) 100,000 un it/gram Powder Discontinued 1 NMA TOPICAL THREE TIMES A DAY 0 0 August 15, 2021 12:00am November 20, 2021 11:53am Please contact the information source for Protocol details. Start: 08-15-2021 End: 11-20-2021 Nystatin (Nyamyc) 100,000 un it/gram Powder Discontinued 1 APPLIC TOPICAL THREE TIMES A DAY 0 August 15, 2021 12:00am November 20, 2021 11:53am Comment on above: Apply 1 application to affected area four times daily for 14 days. Apply 1 application to affected area four times daily. olmesartan medoxomil 40 mg oral tablet (16 sources) Angiotensin 2 Receptor Eric Start: 5 take 1 tablet by mouth once daily olmesartan (BENICAR) 40 mg tablet Indications: Primary hypertension Take 1 tablet by mouth once daily. 90 tablet 3 09/07/2024 Active omeprazole 40 mg delayed release oral capsule (9 sources) Proton Pump Inhibitor Start: End: take 1 capsule by mouth once daily Omeprazole 40 mg capsule,delayed release(DR/EC) Active 40 mg PO daily 30 June 08, 2024 10:53am swallow whole; do not crush, chew, dissolve, cut, break Start: 11-18-2021 End: 06-30-2023 take 1 capsule by mouth once daily Omeprazole 40 mg Capsule,Delayed Release(Dr/Ec) Discontinued 40 mg PO DAILY November 18, 2021 12:00am June 30, 2023 1:11pm Start: 06-28-2014 End: 07-12-2014 omeprazole 20 mg oral delaye d release capsule (NF) Dose : 20 mg = 1 cap(s), Oral, BIDAC, # 28 cap(s), 0 Refill(s) Start Date: 06/28/14 Stop Date: 07/12/14 Status: Ordered oxyCODONE hydrochloride 5 mg oral tablet (16 sources) Opioid Agonist Start: 11-20-2021 take 5 mg by mouth three times daily Oxycodone Active 5 MG PO THREE TIMES A DAY 15 5 November 20, 2021 Start: 11-18-2021 End: 11-20-2021 take 1 tablet by mouth every six hours Oxycodone 5 mg Tablet Discontinued 5 mg PO EVERY 6 HOURS November 18, 2021 12:00am November 20, 2021 11:53am Start: 08-15-2021 End: 11-20-2021 take 1 tablet by mouth every four hours as needed for pain Oxycodone 5 mg Tablet Discontinued 5 mg PO EVERY 4 HOURS NEEDED as needed for Pain Score 4-5 10 3 0 August 15, 2021 November 20, 2021 11:56am Chronic pain Other chronic pain OXYGEN, HOME THERAPY, (20 sources) Start: 10-21-2023 OXYGEN, HOME T HERAPY, Indications: Dental infection , Pulmonary hypertension (HCC) , Obstructive sleep apnea , Moderate persistent asthma without complication (HCC) , On supplemental oxygen therapy 2 L/min by Nasal Cannula route as directed. Using on average 8 hours during the daytime and then at night bled in to PAP machine. 10/21/2023 Active Start: 10-21-2023 OXYGEN, HOME T HERAPY, Indications: Dental infection , Pulmonary hypertension (HCC) , Obstructive sleep apnea , Moderate persistent asthma without complication , On supplemental oxygen therapy 2 L/min by Nasal Cannula route as directed. Using on average 8 hours during the daytime and then at night bled in to PAP machine. 10/21/2023 Active pantoprazole 40 mg delayed release oral tablet (20 sources) Proton Pump Inhibitor Start: 03-02-2022 End: 12-26-2023 take 1 tablet by mouth once daily pantoprazole DR (PROTONIX) 40 mg tablet Indications: Upper abdominal pain Take 1 tablet by mouth once daily. 90 tablet 3 09/24/2023 Active Start: 06-19-2020 End: 03-02-2022 take 1 tablet by mouth twice daily Pantoprazole 40 mg tablet,delayed release (DR/EC) Discontinued 40 mg PO TWICE A DAY July 31, 2021 12:00am August 15, 2021 10:57am gerd Comment on above: Take 1 tablet by juan f th twice daily before meals (0600/1600). Take this dose for one month, then return to daily dosing. Take 1 tablet by juan f th two times a day. Take 1 tablet by juan f th once daily. polyethylene glycol 3350 53364 mg powder for oral solution (20 sources) Osmotic Laxative Start: 018 End: polyethylene glycol 3350 (MIRALAX) 17 gram/dose powder Indications: Constipation, unspecified constipation type 2 scoop in liquid daily as needed for bowel movement 17 g 11 05/07/2024 Active Comment on above: 2 scoop in liquid da wendy as needed for bowel movement polymyxin b 27946 unt/ml / trimethoprim 1 mg/ml ophthalmic solution (4 sources) Dihydrofolate Reductase Inhibitor Antibacterial, Polymyxin-class Antibacterial Start: End: take 1 drop(s) into the eye(s) four times daily trimethoprim-polymyxi n (POLYTRIM) 10,000 unit- 1 mg/mL ophthalmic solution Indications: Bacterial conjunctivitis of left eye Use 1 Drop in the left eye four times daily for 7 days. 1.4 mL 0 04/04/2022 04/11/2022 Active Comment on above: Use 1 Drop in the le ft eye four times daily for 7 days. microencapsulated potassium chloride 20 meq extended release oral tablet (20 sources) Start: End: take 1 tablet by mouth twice daily potassium chloride ER (KLOR-CON) 20 mEq tablet Take 1 tablet by mouth two times a day. As directed 60 tablet 5 06/08/2024 Active Start: 05-23-2023 End: 02-27-2024 take 1 tablet by mouth twice daily potassium chloride ER (KLOR-CON) 20 mEq tablet Take 1 tablet by mouth two times a day. As directed 60 tablet 2 12/26/2023 02/27/2024 Discontinued Start: 08-19-2022 End: 12-04-2022 take 1 tablet by mouth twice daily potassium chloride ER (KLOR-CON) 20 mEq tablet Take 1 tablet by mouth two times a day. As directed 60 tablet 2 12/04/2022 Active Start: 11-18-2021 End: 11-20-2021 take 2 tablets by mouth twice daily Potassium Chloride 20 mEq Tablet Extended Release Discontinued 40 meq PO TWICE A DAY November 18, 2021 12:00am November 20, 2021 11:51am Start: 11-18-2021 End: 11-20-2021 take 40 mEq by mouth twice daily Potassium Chloride Discontinued 40 MEQ PO TWICE A DAY November 18, 2021 12:00am November 20, 2021 11:51am Start: 04-28-2020 End: 08-07-2022 take 2 tablets by mouth three times daily potassium chloride ER (K-DUR, KLOR-CON) 20 mEq tablet Take 2 tablets by mouth three times daily. 180 tablet 11 04/28/2020 08/07/2022 Discontinued Start: 08-01-2015 End: 02-22-2016 Potassium Chloride (Klor-Con M20) 20 MEQ tablet Discontinued 20 meq PO TWICE DAILY WITH MEALS 14 0 August 01, 2015 12:00am February 22, 2016 4:30pm Start: 05-26-2013 potassium chlo ride 20 mEq oral tablet, extended release Dose : 40 mEq = 2 tab(s), Oral, qDayM Start Date: 05/26/13 Status: Ordered Comment on above: Take 2 tablets by mo [facility] three times daily. Take 1 tablet by juan [facility] twice daily. As directed Take 1 tablet by juan f two times a day. As directed sertraline 100 mg oral tablet (20 sources) Serotonin Reuptake Inhibitor Start: 02-22-2016 End: 08-15-2021 sertraline 100 mg oral tablet Dose : 100 mg = 1 tab(s), Oral, qDay, # 30 tab(s), 0 Refill(s) Start Date: 07/29/21 Status: Ordered Start: 02-22-2016 End: 03-02-2022 take 100-150 mg by mouth once daily Sertraline Discontinued 100 - 150 MG PO DAILY February 22, 2016 1:00am August 15, 2021 10:57am Start: 02-22-2016 End: 08-15-2021 take 150 mg by mouth once daily Sertraline Active 150 MG PO DAILY 0 August 15, 2021 12:00am Comment on above: Take 1.5 tablets by mouth once daily. sucralfate 1000 mg oral tablet (2 sources) Aluminum Complex Start: End: take 1 tablet by mouth once at bedtime Sucralfate 1 gram tablet Active 1 g PO before meals and at bedtime 120 0 July 16, 2024 10:32am Take an hour before meals and at bedtime sulfamethoxazole 800 mg / trimethoprim 160 mg oral tablet (13 sources) Dihydrofolate Reductase Inhibitor Antibacterial, Sulfonamide Antimicrobial Start: End: take 1 tablet by mouth twice daily sulfamethoxazole-trim ethoprim (BACTRIM DS) 800-160 mg per tablet Indications: Diverticulitis Take 1 tablet by mouth two times a day for 10 days. 20 tablet 0 08/27/2023 09/06/2023 Active Start: 11-18-2021 End: 11-20-2021 Sulfamethoxazole-Trimethopri m (Bactrim Ds) 800-160 mg Tablet Discontinued 1 {tbl} PO TWICE A DAY November 18, 2021 12:00am November 20, 2021 11:51am Start: 05-26-2013 End: 06-05-2013 take 1 tablet by mouth twice daily Bactrim 400 mg-80 mg oral tablet Dose = 2 tab(s), Oral, BID, # 40 tab(s) Start Date: 05/26/13 Stop Date: 06/05/13 Status: Ordered temazepam 30 mg oral capsule (8 sources) Benzodiazepine Start: 05-21-2022 End: 06-20-2022 take 1 capsule by mouth every 30 days at bedtime as needed temazepam (RESTORIL) 30 mg cap Indications: Primary insomnia Take 1 capsule by mouth at bedtime as needed for up to 30 days. 30 capsule 0 05/21/2022 06/20/2022 Active Comment on above: Take 1 capsule by mo [facility] at bedtime as needed for up to 30 days. Tirzepatide (Mounjaro) 2.5 mg/0.5 mL pen injector (1 source) Start: 06-30-2023 Tirzepatide (Mounjaro) 2.5 mg/0.5 mL pen injector Active 5 mg SC June 30, 2023 12:00am tirzepatide, weight loss (ZEPBOUND) 5 mg/0.5 mL pen injector (10 sources) Start: 09-22-2024 tirzepatide, weight loss (ZEPBOUND) 5 mg/0.5 mL pen injector Indications: Primary hypertension , Obstructive sleep apnea , Type 2 diabetes (HCC) , Primary osteoarthritis of both knees , Class 3 severe obesity due to excess calories with body mass index (BMI) of 50.0 to 59.9 in adult, unspecified whether serious comorbidity present (HCC) , Severe sleep apnea Inject 5 mg subcutaneously one time a week. 2 mL 2 09/22/2024 Active topiramate 100 mg oral tablet (20 sources) Start: 05-07-2024 take 1 tablet by mouth twice daily topiramate (TOPAMAX) 100 mg tablet Take 1 tablet by mouth two times a day. 180 tablet 3 05/07/2024 Active Start: 03-05-2024 End: 05-07-2024 take 1 tablet by mouth twice daily topiramate (TOPAMAX) 50 mg tablet Take 1 tablet by mouth two times a day. 180 tablet 1 03/10/2024 05/07/2024 Discontinued Start: 03-01-2024 take 1 tablet by juan f th once daily at bedtime topiramate (TOPAMAX) 50 mg tablet Indications: Morbid obesity (HCC) Take 1 tablet by mouth daily at bedtime. 30 tablet 3 03/01/2024 Active Start: 11-28-2023 End: 02-27-2024 take 1 tablet by mouth once daily at bedtime topiramate (TOPAMAX) 50 mg tablet Indications: Morbid obesity (HCC) Take 1 tablet by mouth daily at bedtime. 30 tablet 3 11/28/2023 02/27/2024 Discontinued Start: 10-21-2023 End: 11-28-2023 take 1 tablet by mouth once daily at bedtime topiramate (TOPAMAX) 25 mg tablet Indications: Morbid obesity (HCC) Take 1 tablet by mouth daily at bedtime. 30 tablet 3 10/21/2023 11/28/2023 Discontinued Start: 10-29-2019 End: 08-07-2022 take 1 tablet by mouth once daily at bedtime topiramate (TOPAMAX) 50 mg tablet Indications: Periodic headache syndrome, not intractable Take 1 tablet by mouth daily at bedtime. 30 tablet 11 01/17/2021 08/07/2022 Discontinued Comment on above: Take 1 tablet by juan f th daily at bedtime. traMADol hydrochloride 50 mg oral tablet (5 sources) Opioid Agonist Start: End: take 1 tablet by mouth at bedtime as needed for pain traMADol (ULTRAM) 50 mg tablet Indications: Primary osteoarthritis of both knees Take 1 tablet by mouth at bedtime as needed for pain for up to 5 days. 5 tablet 0 08/22/2022 08/27/2022 Active Start: 08-14-2020 End: 11-23-2020 take 1-2 tablets by mouth every eight hours as needed for pain traMADol (ULTRAM) 50 mg tablet Indications: Primary osteoarthritis of both knees Take 1-2 tablets by mouth every 8 hours as needed for pain for up to 7 days. 42 tablet 0 10/25/2020 11/23/2020 Discontinued Comment on above: Take 1-2 tablets by mouth every 8 hours as needed for pain for up to 7 days. Take 1 tablet by [facility] at bedtime as needed for pain for up to 5 days. 24 hr venlafaxine 75 mg extended release oral capsule (20 sources) Serotonin and Norepinephrine Reuptake Inhibitor Start: 06-30-19 take 1 capsule by mouth once daily Venlafaxine 75 mg capsule,extended release 24hr Active 75 mg PO daily June 30, 2023 12:00am Start: 03-02-2022 End: 07-16-2024 take 1 capsule by mouth once daily venlafaxine ER (EFFEXOR XR) 75 mg 24 hr capsule Take 1 capsule by mouth once daily. 90 capsule 3 07/16/2024 Active Start: 11-18-2021 take 1 capsule by [facility] once daily Venlafaxine (Effexor Xr) 75 mg Capsule,Extended Release 24hr Active 75 MG PO DAILY November 18, 2021 12:00am Comment on above: Take 1 capsule by [facility] once daily. WALKER ROLLATOR SEAT WITH 6" WHEELS - RED (20 sources) Start: 10-16-2023 WALKER ROLLATOR SEAT WITH 6" WHEELS - RED Indications: Primary osteoarthritis of both knees , Unsteady gait , Decreased mobility Diagnosis: Unsteady gait, primary osteoarthritis both knees, decreased mobility 1 Each 10/16/2023 Active Start: 07-26-2023 End: 10-16-2023 WALKER ROLLATOR SEAT WITH 6" WHEELS - RED Indications: Primary osteoarthritis of both knees , Unsteady gait , Decreased mobility Diagnosis: Unsteady gait, primary osteoarthritis both knees, decreased mobility 1 Each 07/26/2023 10/16/2023 Discontinued Start: 07-26-2023 WALKER ROLLATO R SEAT WITH 6" WHEELS - RED Indications: Primary osteoarthritis of both knees , Unsteady gait , Decreased mobility Diagnosis: Unsteady gait, primary osteoarthritis both knees, decreased mobility 1 Each 0 07/26/2023 Active Start: 06-07-2022 WALKER ROLLATO R SEAT WITH 6" WHEELS - RED Indications: Unsteady gait , Primary osteoarthritis of both knees , Decreased mobility Diagnosis: Unsteady gait, primary osteoarthritis both knees, decreased mobility 1 Each 0 06/07/2022 Active Comment on above: Diagnosis: Unsteady gait, primary osteoarthritis both knees, decreased mobility zinc acetate 25 mg oral capsule (20 sources) Start: 05-23-2023 End: 10-27-2025 take 1 capsule by mouth once daily Zinc Acetate, Oral, 25 mg (zinc) cap Take 1 capsule by mouth once daily. 90 capsule 3 10/27/2024 10/27/2025 Active Start: 11-18-2022 take 1 capsule by mo [facility] once daily Zinc Acetate, Oral, 25 mg (zinc) cap Take 1 capsule by mouth once daily. 90 capsule 1 11/18/2022 Active Comment on above: Take 1 capsule by mo [facility] once daily. Completed/Discontinued Medications Medication Drug Class(es) Dates Sig (Normalized) Sig (Original) acetaminophen 325 mg oral tablet (12 sources) Start: 11-20-2021 End: 06-30-2023 take 2 tablets by mouth every four hours as needed for pain Acetaminophen (Tylenol) 325 mg Tablet Discontinued 650 mg PO EVERY 4 HOURS NEEDED as needed for Fever, pain 1-10/10 0 0 November 20, 2021 12:00am June 30, 2023 1:09pm Start: 08-15-2021 Acetaminophen (Tylenol) 325 mg Tablet Active 650 mg PO EVERY 6 HOURS NEEDED as needed for Pain Score 1-10/Temp > 100.7 F 0 0 August 15, 2021 12:00am Start: 08-15-2021 take 2 tablets by mo ut every six hours as needed Acetaminophen (Tylenol) 325 mg Tablet Active 650 MG PO EVERY 6 HOURS NEEDED 0 August 15, 2021 12:00am acetaminophen 325 mg / oxyCODONE hydrochloride 5 mg oral tablet (4 sources) Opioid Agonist Start: 09-21-2024 End: 09-26-2024 take 1 tablet by mouth twice daily as needed for pain oxyCODONE-acetaminophen (PERCOCET) 5-325 mg tablet Indications: Left sided abdominal pain Take 1 tablet by mouth two times a day as needed for pain for up to 5 days. 10 tablet 09/21/2024 09/26/2024 Start: 08-04-2023 take 1 tablet by juan f th every six hours as needed for pain Oxycodone-Acetaminophen 5-325 mg tablet Active 1 {tbl} PO EVERY 6 HOURS NEEDED as needed for Pain 12 3 0 August 04, 2023 Left lower quadrant abdominal pain Left lower quadrant pain atropine sulfate 0.025 mg / diphenoxylate hydrochloride 2.5 mg oral tablet (20 sources) Anticholinergic, Cholinergic Muscarinic Antagonist, Antidiarrheal Start: 08-12-2022 End: 01-29-2023 take 1 tablet by mouth every six hours as needed for diarrhea and diarrhea diphenoxylate-atropine (LOMOTIL) 2.5-0.025 mg per tablet Indications: Diarrhea, unspecified type Take 1 tablet by mouth four times daily as needed for diarrhea for up to 7 days. 28 tablet 0 08/12/2022 01/29/2023 Discontinued (Course of therapy completed) Comment on above: Take 1 tablet by juan f th four times daily as needed for diarrhea for up to 7 days. azithromycin 250 mg oral tablet (1 source) Macrolide Antimicrobial Start: 05-26-2013 End: 05-31-2013 Zithromax 250 mg oral tablet Dose : 250 mg = 1 tab(s), Oral, Daily, # 5 tab(s) Start Date: 05/26/13 Stop Date: 05/31/13 Status: Ordered benoxinate hydrochloride 4 mg/ml / fluorescein sodium 2.5 mg/ml ophthalmic solution (3 sources) Diagnostic Dye Start: 11-12-2022 End: 11-13-2022 fluorescein-benoxinate 0.25-0.4 % 1 Drop (FLURESS) Start: 06-04-2022 End: 06-04-2022 fluorescein-benoxinate 0.25- 0.4 % 1 Drop (FLURESS) benzonatate 100 mg oral capsule (20 sources) Non-narcotic Antitussive Start: 08-24-2022 End: 11-05-2022 take 1 capsule by mouth every eight hours as needed benzonatate (TESSALON PERLES) 100 mg capsule Take 1 capsule by mouth three times daily as needed for cough. 30 capsule 1 08/24/2022 11/05/2022 Discontinued Start: 01-17-2021 End: 05-10-2022 take 1 capsule by mouth every eight hours as needed benzonatate (TESSALON PERLES) 100 mg capsule Take 1 capsule by mouth three times daily as needed for cough. 30 capsule 1 01/17/2021 05/10/2022 Discontinued (Course of therapy completed) Comment on above: Take 1 capsule by mo uth three times daily as needed for cough. bismuth subsalicylate 262 mg chewable tablet (20 sources) Bismuth Start: 1 End: 3 take 2 tablets by mouth four times daily bismuth subsalicylate (PEPTO-BISMOL) 262 mg chew Indications: Helicobacter pylori gastritis Take 2 tablets by mouth four times daily. 112 tablet 0 07/05/2020 01/29/2023 Discontinued (Course of therapy completed) Comment on above: Take 2 tablets by mo uth four times daily. Blood Pressure Monitor (BLOOD PRESSURE KIT) kit (20 sources) Start: 0 End: 3 Blood Pressure Monitor (BLOOD PRESSURE KIT) kit Indications: Labile blood pressure For home use Dx: labile blood pressure 1 Kit 0 03/30/2019 08/21/2022 Discontinued Start: 03-30-2019 Blood Pressure Monitor (BLOOD PRESSURE KIT) kit Indications: Labile blood pressure For home use Dx: labile blood pressure 1 Kit 0 03/30/2019 Active Comment on above: For home use Dx: lab ile blood pressure Blood-Glucose Meter (FREESTYLE FREEDOM LITE) monitoring kit (20 sources) Start: 11-10-2017 End: 09-21-2024 Blood-Glucose Meter (FREESTYLE FREEDOM LITE) monitoring kit 1 Each as needed. 1 Each 11/10/2017 09/21/2024 Discontinued Start: 11-10-2017 Blood-Glucose Meter (FREESTYLE FREEDOM LITE) monitoring kit 1 Each as needed. 1 Each 11/10/2017 Active Start: 11-10-2017 Blood-Glucose Meter (FREESTYLE FREEDOM LITE) monitoring kit 1 Each as needed. 1 Each 0 11/10/2017 Active Comment on above: 1 Each as needed. budesonide 3 mg delayed release oral capsule (2 sources) Corticosteroid Start: 08-15-19 End: 08-22-19 take 1 capsule by mouth every twenty-four hours budesonide, enteric coated (ENTOCORT EC) 3 mg 24 hr capsule Take 3 capsules by mouth once daily. 90 capsule 0 08/14/2022 08/21/2022 Discontinued Comment on above: Take 3 capsules by [facility] once daily. cefdinir 300 mg oral capsule (2 sources) Cephalosporin Antibacterial Start: 01-02-20 End: 01-12-20 take 1 capsule by mouth twice daily cefdinir (OMNICEF) 300 mg capsule Indications: Left lower quadrant abdominal pain Take 1 capsule by mouth two times a day for 10 days. 20 capsule 0 01/01/2023 01/11/2023 Comment on above: Take 1 capsule by [facility] two times a day for 10 days. cetirizine hydrochloride 10 mg oral tablet (20 sources) Histamine-1 Receptor Antagonist Start: 12-14-19 End: 05-11-19 take 1 tablet by mouth once daily cetirizine (ZYRTEC) 10 mg tablet Take 1 tablet by mouth once daily. For allergies. Can take at night if causes sedation, 30 tablet 2 12/14/2019 05/10/2022 Discontinued (Course of therapy completed) Comment on above: Take 1 tablet by [facility] once daily. For allergies. Can take at night if causes sedation, chlorhexidine gluconate 1.2 mg/ml mouthwash (20 sources) Start: 05-31-19 End: 01-30-20 Chlorhexidine Gluconate (PERIDEX) 0.12 % solution Indications: Dental infection Use 15 mL as instructed twice daily. Rinse around mouth for 30 seconds then expectorate (spit out). 118 mL 0 10/04/2022 01/29/2023 Discontinued Comment on above: Use 15 mL as instruc arnaldo twice daily. Rinse around mouth for 30 seconds then expectorate (spit out). ciprofloxacin 500 mg oral tablet (5 sources) Quinolone Antimicrobial Start: 08-04-19 End: 07-03-20 24 take 1 tablet by mouth every twelve hours ciprofloxacin HCl (CIPRO) 500 mg tablet Take 500 mg by mouth every 12 hours. 0 08/04/2023 08/27/2023 Discontinued Start: 08-04-2023 End: 12-26-2023 take 1 tablet by mouth twice daily Ciprofloxacin Hcl 500 mg tablet Discontinued 500 mg PO TWICE A DAY 14 0 August 04, 2023 12:00am December 26, 2023 1:27pm clarithromycin 500 mg oral tablet (1 source) Macrolide Antimicrobial Start: 09-26-2020 End: 03-09-2021 take 1 tablet by mouth twice daily clarithromycin (BIAXIN) 500 mg Indications: Helicobacter pylori gastritis Take 1 tablet by mouth twice daily. 28 tablet 0 09/26/2020 03/09/2021 Discontinued (Course of therapy completed) Comment on above: Take 1 tablet by juan f th twice daily. dapagliflozin 5 mg oral tablet (5 sources) Sodium-Glucose Cotransporter 2 Inhibitor Start: 01-10-2023 End: 01-29-2023 take 1 tablet by mouth once daily dapagliflozin propanediol (FARXIGA) 5 mg tablet Take 1 tablet by mouth once daily. 30 tablet 0 01/29/2023 Active Comment on above: Take 1 tablet by juan f th once daily. Take one daily in the morning Take 1 tablet by juan f th once daily. docusate sodium 100 mg oral capsule (20 sources) Start: 06-19-2020 End: 01-29-2023 take 2 capsules by mouth once daily in the evening docusate sodium (COLACE) 100 mg capsule Indications: Chronic idiopathic constipation Take 2 capsules by mouth DAILY AT 6 PM. 60 capsule 4 06/19/2020 01/29/2023 Discontinued (Course of therapy completed) Comment on above: Take 2 capsules by m outh DAILY AT 6 PM. 0.5 ml dulaglutide 3 mg/ml auto-injector (20 sources) GLP-1 Receptor Agonist Start: 10-25-2022 End: 11-15-2022 inject 1.5 mg by subcutaneous injection every week dulaglutide (TRULICITY) 1.5 mg/0.5 mL pen injector Indications: Type 2 diabetes (HCC) Inject 1.5 mg subcutaneously one time a week. 2 mL 1 10/25/2022 11/15/2022 Discontinued Start: 09-01-2022 End: 09-29-2022 dulaglutide (TRULICITY) 1.5 mg/0.5 mL pen injector Inject 1.5 mg subcutaneously one time a week for 28 days. Inject once per week. Discard Pen After 2 mL 0 09/01/2022 09/29/2022 Active Start: 09-01-2022 End: 10-25-2022 inject 0.75 mg by subcutaneous injection every week dulaglutide (TRULICITY) 0.75 mg/0.5 mL pen injector Indications: Type 2 diabetes (HCC) , Morbid obesity (HCC) Inject 0.75 mg subcutaneously one time a week. 4 Each 1 09/25/2022 10/25/2022 Discontinued (Dosage adjustment) Start: 02-27-2022 End: 03-01-2022 inject 3 mg by subcutaneous injection every week dulaglutide (TRULICITY) 1.5 mg/0.5 mL pen injector Indications: Type 2 diabetes (HCC) Inject 3 mg subcutaneously one time a week. 4 mL 1 02/27/2022 03/01/2022 Discontinued Start: 11-09-2019 End: 02-23-2022 Dulaglutide (Trulicity) 1.5 mg/0.5 mL Pen Injector Discontinued 1.5 mg SC EVERY WEEK November 18, 2021 12:00am January 30, 2022 10:55am Comment on above: Inject 1.5 mg subcut aneously one time a week. Start after 4 weeks on 0.75mg/0.5ml Inject 3 mg subcutan eously one time a week. Inject 0.75 mg subcu taneously one time a week for 28 days. Inject dose once per week. Discard Pen After Inject 1.5 mg subcut aneously one time a week for 28 days. Inject once per week. Discard Pen After Inject 0.75 mg subcu taneously one time a week. Inject 1.5 mg subcut aneously one time a week. dulaglutide (TRULICITY) 3 mg/0.5 mL pen injector (8 sources) Start: End: 023 inject 3 mg by subcutaneous injection every week dulaglutide (TRULICITY) 3 mg/0.5 mL pen injector Indications: Type 2 diabetes (HCC) Inject 3 mg subcutaneously one time a week. 2 mL 2 03/01/2022 03/11/2022 Discontinued Start: 03-01-2022 inject 3 mg by subcu taneous injection every week dulaglutide (TRULICITY) 3 mg/0.5 mL pen injector Indications: Type 2 diabetes (HCC) Inject 3 mg subcutaneously one time a week. 2 mL 2 03/01/2022 Active Start: 02-23-2022 End: 02-27-2022 inject 3 mg by subcutaneous injection every week dulaglutide (TRULICITY) 3 mg/0.5 mL pen injector Indications: Type 2 diabetes (HCC) Inject 3 mg subcutaneously one time a week. 2 mL 2 02/23/2022 02/27/2022 Discontinued Comment on above: Inject 3 mg subcutan eously one time a week. dulaglutide (TRULICITY) 3 mg/0.5 mL pen injector (9 sources) Start: End: inject 3 mg by subcutaneous injection every week dulaglutide (TRULICITY) 3 mg/0.5 mL pen injector Indications: Type 2 diabetes (HCC) Inject 3 mg subcutaneously one time a week. 4 Each 2 11/15/2022 01/01/2023 Discontinued Start: 11-15-2022 inject 3 mg by subcu taneous injection every week dulaglutide (TRULICITY) 3 mg/0.5 mL pen injector Indications: Type 2 diabetes (HCC) Inject 3 mg subcutaneously one time a week. 4 Each 2 11/15/2022 Active Comment on above: Inject 3 mg subcutan eously one time a week. dulaglutide (TRULICITY) 4.5 mg/0.5 mL pen injector (20 sources) Start: 09-06-2024 End: 09-07-2024 dulaglutide (TRULICITY) 4.5 mg/0.5 mL pen injector Indications: Type 2 diabetes (HCC) , Class 3 severe obesity due to excess calories with body mass index (BMI) of 50.0 to 59.9 in adult, unspecified whether serious comorbidity present (HCC) Inject 4.5 mg subcutaneously one time a week. 6 mL 3 09/06/2024 09/07/2024 Discontinued Start: 01-01-2023 inject 4.5 mg by sub cutaneous injection every week dulaglutide (TRULICITY) 4.5 mg/0.5 mL pen injector Indications: Type 2 diabetes (HCC) Inject 4.5 mg subcutaneously one time a week. 4 Each 2 01/01/2023 Active Start: 05-30-2022 End: 06-26-2022 inject 4.5 mg by subcutaneous injection every week dulaglutide (TRULICITY) 4.5 mg/0.5 mL pen injector Indications: Type 2 diabetes (HCC) Inject 4.5 mg subcutaneously one time a week. 6 mL 1 05/30/2022 06/26/2022 Discontinued (Side Effects) Start: 05-30-2022 inject 4.5 mg by sub cutaneous injection every week dulaglutide (TRULICITY) 4.5 mg/0.5 mL pen injector Indications: Type 2 diabetes (HCC) Inject 4.5 mg subcutaneously one time a week. 6 mL 1 05/30/2022 Active Start: 03-25-2022 End: 05-21-2022 inject 4.5 mg by subcutaneous injection every week dulaglutide (TRULICITY) 4.5 mg/0.5 mL pen injector Indications: Type 2 diabetes (HCC) Inject 4.5 mg subcutaneously one time a week. 6 mL 3 03/25/2022 05/21/2022 Discontinued Start: 03-25-2022 inject 4.5 mg by sub cutaneous injection every week dulaglutide (TRULICITY) 4.5 mg/0.5 mL pen injector Indications: Type 2 diabetes (HCC) Inject 4.5 mg subcutaneously one time a week. 6 mL 3 03/25/2022 Active Start: 03-23-2022 End: 03-23-2022 inject 4.5 mg by subcutaneous injection every week dulaglutide (TRULICITY) 4.5 mg/0.5 mL pen injector Indications: Type 2 diabetes (HCC) Inject 4.5 mg subcutaneously one time a week. 2 mL 3 03/23/2022 03/23/2022 Discontinued Start: 03-23-2022 End: 03-25-2022 inject 4.5 mg by subcutaneous injection every week dulaglutide (TRULICITY) 4.5 mg/0.5 mL pen injector Indications: Type 2 diabetes (HCC) Inject 4.5 mg subcutaneously one time a week. 6 mL 3 03/23/2022 03/25/2022 Discontinued Start: 03-11-2022 End: 03-22-2022 inject 4.5 mg by subcutaneous injection every week dulaglutide (TRULICITY) 4.5 mg/0.5 mL pen injector Indications: Type 2 diabetes (HCC) Inject 4.5 mg subcutaneously one time a week. 2 mL 3 03/11/2022 03/22/2022 Discontinued Start: 03-11-2022 inject 4.5 mg by sub cutaneous injection every week dulaglutide (TRULICITY) 4.5 mg/0.5 mL pen injector Indications: Type 2 diabetes (HCC) Inject 4.5 mg subcutaneously one time a week. 2 mL 3 03/11/2022 Active Comment on above: Inject 4.5 mg subcut aneously one time a week. emollient combination no.114 (EUCERIN ADVANCED REPAIR) crea (20 sources) Start: 04-02-2021 End: 08-07-2022 emollient combination no.114 (EUCERIN ADVANCED REPAIR) crea Apply 1 application to affected area once daily. 85 g 5 04/02/2021 08/07/2022 Discontinued Start: 04-02-2021 emollient comb ination no.114 (EUCERIN ADVANCED REPAIR) crea Apply 1 application to affected area once daily. 85 g 5 04/02/2021 Active Start: 09-08-2020 End: 03-31-2021 emollient combination no.114 (EUCERIN ADVANCED REPAIR) crea Apply 1 application to affected area once daily. 85 g 5 09/08/2020 03/31/2021 Discontinued Comment on above: Apply 1 application to affected area once daily. enteric contrast (will be provided with radiology test) (3 sources) Start: 11-06-2023 End: 11-06-2023 enteric contrast (will be provided with radiology test) Indications: Left lower quadrant abdominal pain , Diverticulitis For CT ABD/PEL W IVCON Routine order Administer, As Directed One Time Only, via Oral, Rectal, both Oral and Rectal, Enteric Tube, Stoma or Indwelling Catheter, Enteric Contrast as designated per enteric contrast guidelines 1 Each 11/06/2023 11/06/2023 Discontinued Start: 08-14-2022 End: 08-14-2022 enteric contrast (will be pr ovided with radiology test) Indications: Diarrhea, unspecified type , Abdominal cramping , Vomiting, unspecified vomiting type, unspecified whether nausea present For CT ABD/PEL W IVCON Routine order Administer, As Directed One Time Only, via Oral, Rectal, both Oral and Rectal, Enteric Tube, Stoma or Indwelling Catheter, Enteric Contrast as designated per enteric contrast guidelines 1 Each 0 08/14/2022 08/14/2022 Discontinued Start: 08-14-2022 End: 08-14-2022 take 1 dose by mouth once, then take 1 dose by mouth once enteric contrast (will be provided with radiology test) Take 1 Each by mouth one time only for [address] ABD/PEL WO Routine order Administer, As Directed One Time Only, via Oral, Rectal, both Oral and Rectal, Enteric Tube, Stoma or Indwelling Catheter, Enteric Contrast as designated per enteric contrast guidelines 1 Each 0 08/14/2022 08/14/2022 Comment on above: For CT ABD/PEL W IVC ON Routine order Administer, As Directed One Time Only, via Oral, Rectal, both Oral and Rectal, Enteric Tube, Stoma or Indwelling Catheter, Enteric Contrast as designated per enteric contrast guidelines Take 1 Each by mouth one time only for [address] ABD/PEL WO Routine order Administer, As Directed One Time Only, via Oral, Rectal, both Oral and Rectal, Enteric Tube, Stoma or Indwelling Catheter, Enteric Contrast as designated per enteric contrast guidelines eszopiclone 2 mg oral tablet (3 sources) Start: 05-15-19 End: 06-14-19 take 1 tablet by mouth once daily at bedtime eszopiclone (LUNESTA) 2 mg Indications: Insomnia, unspecified type Take 1 tablet by mouth daily at bedtime for 30 days. As directed 30 tablet 0 05/14/2021 06/13/2021 Comment on above: Take 1 tablet by juan f th daily at bedtime for 30 days. As directed 60 actuat exenatide 0.005 mg/actuat pen injector (3 sources) GLP-1 Receptor Agonist Start: 03-21-19 23 End: 03-25-19 23 exenatide (BYETTA) 5 mcg/dose (250 mcg/mL) 1.2 mL injection Inject 5 mcg subcutaneously twice daily with meals. Inject dose 5-60" prior to breakfast & dinner. Minimum 6 hours between meals. 1.2 mL 2 03/21/2022 03/25/2022 Discontinued Start: 03-19-2022 inject 2 mg by subcu taneous injection every week exenatide (BYDUREON BCISE) 2mg / 0.85 ml subcutaneous auto injector Inject 2 mg subcutaneously one time a week. 4 Each 5 03/19/2022 Active Comment on above: Inject 2 mg subcutan eously one time a week. Inject 5 mcg subcuta neously twice daily with meals. Inject dose 5-60" prior to breakfast & dinner. Minimum 6 hours between meals. ferrous gluconate 240 mg oral tablet (20 sources) Start: 0 End: 3 take 1 tablet by mouth once daily Ferrous Gluconate 240 mg (27 mg iron) tablet Indications: Iron deficiency anemia, unspecified iron deficiency anemia type Take 1 tablet by mouth once daily. As directed 30 tablet 5 07/22/2019 08/07/2022 Discontinued Comment on above: Take 1 tablet by juan f once daily. As directed ferrous sulfate 325 mg oral tablet (20 sources) Start: 5 End: 5 take 1 tablet by mouth once daily ferrous sulfate (IRON) 325 mg (65 mg iron) tablet Take 1 tablet by mouth once daily. 90 tablet 1 08/30/2024 10/29/2024 Discontinued Start: 09-29-2023 End: 02-27-2024 take 1 tablet by mouth once daily ferrous sulfate (IRON) 325 mg (65 mg iron) tablet Take 1 tablet by mouth once daily. 90 tablet 1 09/29/2023 02/27/2024 Discontinued Start: 08-15-2021 take 1 tablet by juan f twice daily at mealtime Ferrous Sulfate (Ferosul) 325 mg (65 mg iron) Tablet Active 325 mg PO TWICE DAILY WITH MEALS 0 0 August 15, 2021 12:00am Start: 05-26-2013 ferrous sulfat e 325 mg (65 mg elemental iron) oral tablet Dose : 325 mg = 1 tab(s), Oral, TIDM Start Date: 05/26/13 Status: Ordered End: 09-29-2023 ferrous sulfate (IRON ORAL) Take by mouth. 09/29/2023 Discontinued End: 09-29-2023 ferrous sulfate (IRON ORAL) Take by mouth. 0 09/29/2023 Discontinued ferrous sulfate (IRON ORAL) Take by mouth. 0 Active Comment on above: Take by mouth. flash glucose sensor (FREESTYLE SHAKIRA 2 SENSOR) kit (20 sources) Start: 04-09-2022 End: 01-29-2023 flash glucose sensor (FREESTYLE SHAKIRA 2 SENSOR) kit Apply new sensor every fourteen (14) days to upper arm. 6 Each 4 04/09/2022 01/29/2023 Discontinued Start: 04-09-2022 flash glucose sensor (FREESTYLE SHAKIRA 2 SENSOR) kit Apply new sensor every fourteen (14) days to upper arm. 6 Each 4 04/09/2022 Active Comment on above: Apply new sensor johana ry fourteen (14) days to upper arm. fluconazole 150 mg oral tablet (20 sources) Azole Antifungal Start: 01-10-2023 End: 01-10-2023 fluconazole (DIFLUCAN) 150 mg tablet Take 1 tablet by mouth one time only for 1 dose. Repeat in 3 days as needed. 2 tablet 0 01/10/2023 01/10/2023 Start: 01-01-2023 End: 01-01-2023 fluconazole (DIFLUCAN) 150 m g tablet Take 1 tablet by mouth one time only for 1 dose. Repeat in 3 days as needed. 2 tablet 0 01/01/2023 01/01/2023 Start: 03-30-2022 End: 05-21-2022 fluconazole (DIFLUCAN) 150 m g tablet Indications: Monilial vaginitis Take 1 tablet at onset of yeast infection and repeat in 3 days 2 tablet 0 03/30/2022 05/21/2022 Discontinued Comment on above: Take 1 tablet at ons et of yeast infection and repeat in 3 days Take 1 tablet by juan f th one time only for 1 dose. Repeat in 3 days as needed. Fluticasone Propion-Salmeterol (4 sources) Corticosteroid, beta2-Adrenergic Agonist Start: 01-30-2022 End: 01-30-2022 Fluticasone Propion-Salmeterol (Advair Diskus) 250-50 mcg/dose blister with device Discontinued 1 NMA INHALATION TWICE A DAY January 30, 2022 1:00am January 30, 2022 11:12am Start: 01-30-2022 End: 01-30-2022 Fluticasone Propion-Salmeter ol (Advair Diskus) 250-50 mcg/dose blister with device Discontinued 1 INH INHALATION TWICE A DAY January 30, 2022 1:00am January 30, 2022 11:12am Start: 05-26-2013 take 1 dose by inhal ation twice daily fluticasone-salmeterol 250 mcg-50 mcg inhalation powder Dose = 1 puff(s), Inhalation, BID Start Date: 05/26/13 Status: Ordered Foam Bandage (TENDRA MEPILEX BORDER) 4 X 4 " bndg (14 sources) Start: 02-27-2022 End: 03-29-2022 Foam Bandage (TENDRA MEPILEX BORDER) 4 X 4 " bndg Apply to affected area once daily. Cleanse wounds daily prior to applying dressing and pat dry. Change daily and as needed if soiled. 10 Each 3 02/27/2022 03/29/2022 Start: 02-27-2022 End: 03-29-2022 Foam Bandage (TENDRA MEPILEX BORDER) 4 X 4 " bndg Apply to affected area once daily. Cleanse wounds daily prior to applying dressing and pat dry. Change daily and as needed if soiled. 10 Each 3 02/27/2022 03/29/2022 Active Comment on above: Apply to affected ar ea once daily. Cleanse wounds daily prior to applying dressing and pat dry. Change daily and as needed if soiled. gabapentin 100 mg oral capsule (20 sources) Anti-epileptic Agent Start: 11-18-2021 End: 11-20-2021 take 1 capsule by mouth three times daily Gabapentin 100 mg Capsule Discontinued 100 mg PO THREE TIMES A DAY November 18, 2021 12:00am November 20, 2021 11:51am Start: 09-18-2020 End: 08-21-2022 take 2 capsules by mouth once daily at bedtime gabapentin (NEURONTIN) 100 mg capsule Take 2 capsules by mouth daily at bedtime for 180 days. 60 capsule 5 09/18/2020 08/21/2022 Discontinued Comment on above: Take 2 capsules by m outh daily at bedtime for 180 days. 12 hr guaiFENesin 600 mg extended release oral tablet (2 sources) Start: 0 End: 2 take 2 tablets by mouth twice daily guaiFENesin (MUCINEX) 600 mg 12 hr tablet Take 2 tablets by mouth twice daily. 30 Each 0 07/09/2019 04/30/2021 Discontinued (Course of therapy completed) Start: 05-26-2013 Mucinex 600 mg oral tablet, extended release Dose : 600 mg = 1 tab(s), Oral, q12h Start Date: 05/26/13 Status: Ordered Comment on above: Take 2 tablets by mo [facility] twice daily. ibuprofen 400 mg oral tablet (7 sources) Nonsteroidal Anti-inflammatory Drug Start: 2 End: 2 take 1 tablet by mouth every eight hours Ibuprofen (Ibu) 400 mg Tablet Discontinued 400 mg PO Q8H November 18, 2021 12:00am November 20, 2021 11:50am Start: 05-26-2013 ibuprofen 800 mg oral tablet Dose : 800 mg = 1 tab(s), Oral, TID, PRN for pain, # 30 tab(s) Start Date: 05/26/13 Status: Ordered 3 ml insulin degludec 200 unt/ml pen injector (20 sources) Insulin Analog Start: 03-06-2021 End: 08-07-2022 insulin degludec (TRESIBA FLEXTOUCH U-200) 200 unit/mL (3 mL) injection Inject 95 Units subcutaneously daily at bedtime. 15 mL 11 03/06/2021 08/07/2022 Discontinued Comment on above: Inject 95 Units subc utaneously daily at bedtime. 3 ml insulin lispro 100 unt/ml pen injector (20 sources) Insulin Analog Start: 02-27-2022 End: 03-23-2022 insulin lispro (HUMALOG KWIKPEN INSULIN) 100 unit/mL Indications: Type 2 diabetes (HCC) Sliding scale as indicated 3 times daily with meals, inject subq 200 to 250 - 5 units 251 to 300 - 8 units 301 to 350 - 12 units 351 to 400 - 15 units over 400 will need to call her doctor for guidance. 5 Each 3 03/23/2022 Active Start: 11-29-2021 Insulin Lispro (Humalog Pen) 100 unit/mL Insulin Pen Active SC November 29, 2021 12:00am Start: 11-18-2021 End: 11-20-2021 Insulin Lispro (Humalog Pen) 100 unit/mL Insulin Pen Discontinued 2 U SC THREE TIMES A DAY November 18, 2021 12:00am November 20, 2021 11:52am SSI 2-6 units/dose Comment on above: Sliding scale as ind icated 3 times daily with meals, inject subq 200 to 250 - 5 units 251 to 300 - 8 units 301 to 350 - 12 units 351 to 400 - 15 units over 400 will need to call her doctor for guidance. 10 ml iron sucrose 20 mg/ml injection (3 sources) Parenteral Iron Replacement Start: 11-10-2024 End: 11-10-2024 200 mg, INTRAVENOUS, ONCE, 1 dose, On 11/10/24 at 0800 Start: 11-08-2024 End: 11-08-2024 200 mg, INTRAVENOUS, ONCE, 1 dose, On 11/08/24 at 1130 Start: 07-17-2021 End: 07-17-2021 iron sucrose 200 mg injectio n (VENOFER) iv contrast (will be provide d with radiology test) (2 sources) Start: 11-06-2023 End: 11-06-2023 iv contrast (will be provide d with radiology test) Indications: Left lower quadrant abdominal pain , Diverticulitis CT ABD/PEL -Inject, intravenously, once for 1 dose.No IV access, insert saline lock prior to the beginning of sedation, infusion, injection of imaging exam. Discontinue saline lock post exam. If Pt. has a central line or IVAD, may access for administration according to line specific nursing protocol. Once exam is complete flush line and de-access according to line specific nursing protocol in the CT contrast administration guidelines link. 1 Each 11/06/2023 11/06/2023 Discontinued Start: 08-14-2022 End: 08-14-2022 iv contrast (will be provide d with radiology test) Indications: Diarrhea, unspecified type , Abdominal cramping , Vomiting, unspecified vomiting type, unspecified whether nausea present CT ABD/PEL -Inject, intravenously, once for 1 dose.No IV access, insert saline lock prior to the beginning of sedation, infusion, injection of imaging exam. Discontinue saline lock post exam. If Pt. has a central line or IVAD, may access for administration according to line specific nursing protocol. Once exam is complete flush line and de-access according to line specific nursing protocol in the CT contrast administration guidelines link. 1 Each 0 08/14/2022 08/14/2022 Discontinued Comment on above: CT ABD/PEL -Inject, intravenously, once for 1 dose.No IV access, insert saline lock prior to the beginning of sedation, infusion, injection of imaging exam. Discontinue saline lock post exam. If Pt. has a central line or IVAD, may access for administration according to line specific nursing protocol. Once exam is complete flush line and de-access according to line specific nursing protocol in the CT contrast administration guidelines link. ketoconazole 20 mg/ml topical cream (20 sources) Azole Antifungal Start: 08-14-2020 End: 01-29-2023 ketoconazole (NIZORAL) 2 % cream Indications: Diabetes with skin complication (HCC) apply to affected area OF RASH AND SURROUNDING AREA UNDER BREAST once daily 60 g 2 08/14/2020 01/29/2023 Discontinued (Course of therapy completed) Comment on above: apply to affected ar ea OF RASH AND SURROUNDING AREA UNDER BREAST once daily ammonium lactate 120 mg/ml topical cream (1 source) Start: 02-16-2020 End: 02-15-2021 ammonium lactate (LAC-HYDRIN) 12 % cream Apply to affected area as needed. 140 g 11 02/16/2020 02/15/2021 Comment on above: Apply to affected ar ea as needed. Leg Brace (KNEE SUPPORT BRACE) [facility] (20 sources) Start: 05-21-2022 End: 09-02-2022 Leg Brace (KNEE SUPPORT BRACE) [facility] Indications: Primary osteoarthritis of both knees 1 Each as directed. 1 Each 1 05/21/2022 09/02/2022 Discontinued Start: 05-21-2022 Leg Brace (KNE E SUPPORT BRACE) [facility] Indications: Primary osteoarthritis of both knees 1 Each as directed. 1 Each 1 05/21/2022 Active Comment on above: 1 Each as directed. 3 ml liraglutide 6 mg/ml pen injector (7 sources) GLP-1 Receptor Agonist Start: 2024 End: 2024 inject 1.8 mg by subcutaneous injection once daily liraglutide (VICTOZA) 0.6 mg/ 0.1 ml subcutaneous pen injector Indications: Type 2 diabetes (HCC) Inject 1.8 mg subcutaneously once daily. 3 each 2 09/07/2024 09/27/2024 Discontinued loratadine 10 mg oral tablet (20 sources) Start: 2019 End: 2022 take 1 tablet by mouth once daily loratadine (CLARITIN) 10 mg tablet Take 1 tablet by mouth once daily. 0 08/21/2022 11/05/2022 Discontinued Comment on above: Take 1 tablet by [facility] once daily. magnesium chloride 535 mg delayed release oral tablet (7 sources) Start: 2021 End: 2021 Magnesium Chloride (Mag 64) 64 mg Tablet,Delayed Release (Dr/Ec) Discontinued 128 mg PO DAILY 0 0 August 15, 2021 12:00am November 20, 2021 11:50am magnesium oxide 400 mg oral tablet (20 sources) Start: 2020 End: 2022 take 1 tablet by mouth twice daily magnesium oxide (MAG-OX) 400 mg (241.3 mg magnesium) tablet Take 1 tablet by mouth twice daily. 60 tablet 11 07/11/2021 08/07/2022 Discontinued Comment on above: Take 1 tablet by [facility] twice daily. metoclopramide 5 mg oral tablet (6 sources) Dopamine-2 Receptor Antagonist Start: 2021 End: 2021 take 1 tablet by mouth once daily Metoclopramide Hcl (Reglan) 5 mg Tablet Discontinued 5 mg PO DAILY November 18, 2021 12:00am November 20, 2021 11:53am mometasone furoate 0.05 mg/actuat metered dose nasal spray (10 sources) Corticosteroid Start: 2019 End: 2021 take 2 spray(s) by mouth once daily mometasone (NASONEX) 50 mcg/actuation nasal spray Use 2 Sprays in the nose once daily. For allergies. Rinse mouth after use. 1 Bottle 2 08/26/2019 07/05/2021 Discontinued Comment on above: Use 2 Sprays in the nose once daily. For allergies. Rinse mouth after use. mupirocin 20 mg/ml topical cream (20 sources) RNA Synthetase Inhibitor Antibacterial Start: 2021 End: 2022 mupirocin (BACTROBAN) 2 % cream Use up to three times a day. Location: left inner thigh 45 g 1 04/30/2021 11/05/2022 Discontinued Comment on above: Use up to three time s a day. Location: left inner thigh ondansetron 4 mg oral tablet (20 sources) Serotonin-3 Receptor Antagonist Start: 2022 End: 2023 Ondansetron Hcl 4 mg tablet Discontinued 4 mg PO NEEDED as needed for Nausea August 14, 2022 12:00am June 30, 2023 1:11pm Start: 10-05-2019 take 1 tablet by juan f th every eight hours as needed for nausea and nausea ondansetron (ZOFRAN) 4 mg tablet Indications: Nausea Take 1 tablet by mouth every 8 hours as needed. 30 tablet 1 10/05/2019 Active Comment on above: Take 1 tablet by juan f th every 8 hours as needed. oxaprozin 600 mg oral tablet (20 sources) Nonsteroidal Anti-inflammatory Drug Start: 07-22-19 End: 08-22-19 take 1-2 tablets by mouth once daily as needed for pain oxaprozin (DAYPRO) 600 mg tablet Take 1-2 tablets by mouth once daily. as needed for knee pain. 60 tablet 1 05/31/2021 08/21/2022 Discontinued Comment on above: Take 1-2 tablets by mouth once daily. Take 1-2 tablets by mouth once daily. as needed for knee pain. Take 1 tablet by juan f th once daily as needed. perflutren lipid microspheres 1.3 mL in NaCl (PF) 0.9% 10 mL injection (DEFINITY) (20 sources) Start: 08-08-19 End: 11-06-19 perflutren lipid microspheres 1.3 mL in NaCl (PF) 0.9% 10 mL injection (DEFINITY) phenylephrine hydrochloride 25 mg/ml ophthalmic solution (3 sources) alpha-1 Adrenergic Agonist Start: 11-13-19 End: 11-14-19 PHENYLephrine 2.5 % 1 Drop (AK-DILATE, ABBY-SYNEPHRINE) Start: 06-04-2022 End: 06-04-2022 PHENYLephrine 2.5 % 1 Drop ( AK-DILATE, ABBY-SYNEPHRINE) polysaccharide iron complex 150 mg oral capsule (20 sources) Start: 09-08-2020 End: 08-07-2022 take 1 capsule by mouth twice daily iron polysaccharide complex (FERREX-150) 150 mg iron capsule Take 1 capsule by mouth twice daily. 60 capsule 1 09/08/2020 08/07/2022 Discontinued Comment on above: Take 1 capsule by mo [facility] twice daily. prednisoLONE acetate 10 mg/ml ophthalmic suspension (14 sources) Corticosteroid Start: 09-02-2022 End: 11-05-2022 prednisoLONE acetate (PRED FORTE) 1 % ophthalmic suspension Use 1 Drop in the left eye four times daily. 10 mL 0 09/02/2022 11/05/2022 Discontinued Start: 09-02-2022 prednisoLONE a cetate (PRED FORTE) 1 % ophthalmic suspension Use 1 Drop in the left eye four times daily. 10 mL 0 09/02/2022 Active Comment on above: Use 1 Drop in the le ft eye four times daily. proparacaine hydrochloride 5 mg/ml ophthalmic solution (3 sources) Local Anesthetic Start: 11-12-2022 End: 11-13-2022 proparacaine 0.5 % 1 Drop (ALCAINE) Start: 06-04-2022 End: 06-04-2022 proparacaine 0.5 % 1 Drop (A LCAINE) semaglutide 3 mg oral tablet (3 sources) Start: 05-30-2023 End: 06-04-2023 take 1 tablet by mouth once daily before breakfast, then take 4 tablets by mouth once semaglutide (RYBELSUS) 3 mg tablet Indications: Type 2 diabetes (HCC) Take 1 tablet by mouth daily before breakfast. Take 30 minutes before the first food, beverage, or other oral medications of the day with no more than 4 ounces of plain water 30 tablet 2 05/30/2023 06/04/2023 Discontinued Comment on above: Take 1 tablet by juan f daily before breakfast. Take 30 minutes before the first food, beverage, or other oral medications of the day with no more than 4 ounces of plain water semaglutide (OZEMPIC) 2 mg/dose (8 mg/3 mL) pen injector (16 sources) Start: 05-08-2022 End: 06-27-2022 inject 2 mg by subcutaneous injection every week semaglutide (OZEMPIC) 2 mg/dose (8 mg/3 mL) pen injector Inject 2 mg subcutaneously one time a week. 9 mL 3 05/08/2022 06/27/2022 Discontinued (Side Effects) Start: 05-08-2022 inject 2 mg by subcu taneous injection every week semaglutide (OZEMPIC) 2 mg/dose (8 mg/3 mL) pen injector Inject 2 mg subcutaneously one time a week. 9 mL 3 05/08/2022 Active Comment on above: Inject 2 mg subcutan eously one time a week. 125 ml sodium chloride 9 mg/ml prefilled syringe (20 sources) Start: End: sodium chloride 0.9 % (flush) 10 mL (BD POSIFLUSH) tirzepatide (MOUNJARO) 10 mg/0.5 mL pen injector (10 sources) Start: End: inject 10 mg by subcutaneous injection every week tirzepatide (MOUNJARO) 10 mg/0.5 mL pen injector Indications: Morbid obesity (HCC) , Type 2 diabetes (HCC) Inject 10 mg subcutaneously one time a week. 4 Each 2 05/23/2023 05/30/2023 Discontinued Start: 05-23-2023 inject 10 mg by subc utaneous injection every week tirzepatide (MOUNJARO) 10 mg/0.5 mL pen injector Indications: Morbid obesity (HCC) , Type 2 diabetes (HCC) Inject 10 mg subcutaneously one time a week. 4 Each 2 05/23/2023 Active End: 06-30-2023 inject 10 mg by subcutaneous injection every week tirzepatide (MOUNJARO) 10 mg/0.5 mL pen injector Inject 10 mg subcutaneously one time a week. 0 06/30/2023 Discontinued (Dosage adjustment) inject 10 mg by subc utaneous injection every week tirzepatide (MOUNJARO) 10 mg/0.5 mL pen injector Inject 10 mg subcutaneously one time a week. 0 Active Comment on above: Inject 10 mg subcuta neously one time a week. tirzepatide (MOUNJARO) 12.5 mg/0.5 mL pen injector (16 sources) Start: End: inject 12.5 mg by subcutaneous injection every week tirzepatide (MOUNJARO) 12.5 mg/0.5 mL pen injector Inject 12.5 mg subcutaneously one time a week. 2 mL 5 06/30/2023 08/27/2023 Discontinued Start: 06-30-2023 inject 12.5 mg by givens bcutaneous injection every week tirzepatide (MOUNJARO) 12.5 mg/0.5 mL pen injector Inject 12.5 mg subcutaneously one time a week. 2 mL 5 06/30/2023 Active tirzepatide (MOUNJARO) 15 mg/0.5 mL pen injector (20 sources) Start: 07-28-2024 End: 09-06-2024 inject 15 mg by subcutaneous injection every week tirzepatide (MOUNJARO) 15 mg/0.5 mL pen injector Indications: Type 2 diabetes (HCC) Inject 15 mg subcutaneously one time a week. 4 each 2 07/28/2024 09/06/2024 Discontinued (Cost of medication) Start: 07-28-2024 inject 15 mg by subc utaneous injection every week tirzepatide (MOUNJARO) 15 mg/0.5 mL pen injector Indications: Type 2 diabetes (HCC) Inject 15 mg subcutaneously one time a week. 4 each 2 07/28/2024 Active Start: 04-12-2024 End: 07-27-2024 inject 15 mg by subcutaneous injection every week tirzepatide (MOUNJARO) 15 mg/0.5 mL pen injector Indications: Type 2 diabetes (HCC) Inject 15 mg subcutaneously one time a week. 4 Each 2 04/12/2024 07/27/2024 Discontinued Start: 04-12-2024 inject 15 mg by subc utaneous injection every week tirzepatide (MOUNJARO) 15 mg/0.5 mL pen injector Indications: Type 2 diabetes (HCC) Inject 15 mg subcutaneously one time a week. 4 Each 2 04/12/2024 Active Start: 08-27-2023 End: 04-12-2024 inject 15 mg by subcutaneous injection every week tirzepatide (MOUNJARO) 15 mg/0.5 mL pen injector Indications: Type 2 diabetes (HCC) Inject 15 mg subcutaneously one time a week. 4 Each 2 08/27/2023 04/12/2024 Discontinued Start: 08-27-2023 inject 15 mg by subc utaneous injection every week tirzepatide (MOUNJARO) 15 mg/0.5 mL pen injector Indications: Type 2 diabetes (HCC) Inject 15 mg subcutaneously one time a week. 4 Each 2 08/27/2023 Active tirzepatide (MOUNJARO) 2.5 mg/0.5 mL pen injector (5 sources) Start: 03-19-2023 End: 04-16-2023 inject 2.5 mg by subcutaneous injection every week tirzepatide (MOUNJARO) 2.5 mg/0.5 mL pen injector Indications: Type 2 diabetes (HCC) , Morbid obesity (HCC) Inject 2.5 mg subcutaneously one time a week. 4 Each 2 03/19/2023 04/16/2023 Discontinued Start: 03-19-2023 inject 2.5 mg by sub cutaneous injection every week tirzepatide (MOUNJARO) 2.5 mg/0.5 mL pen injector Indications: Type 2 diabetes (HCC) , Morbid obesity (HCC) Inject 2.5 mg subcutaneously one time a week. 4 Each 2 03/19/2023 Active Comment on above: Inject 2.5 mg subcut aneously one time a week. tirzepatide (MOUNJARO) 5 mg/0.5 mL pen injector (18 sources) Start: inject 5 mg by subcutaneous injection every week tirzepatide (MOUNJARO) 5 mg/0.5 mL pen injector Inject 5 mg subcutaneously one time a week. 2 mL 3 04/16/2023 Active Start: 06-27-2022 inject 5 mg by subcu taneous injection every week tirzepatide (MOUNJARO) 5 mg/0.5 mL pen injector Inject 5 mg subcutaneously one time a week. 2 mL 3 06/27/2022 Active Start: 03-13-2022 inject 5 mg by subcu taneous injection every week tirzepatide (MOUNJARO) 5 mg/0.5 mL pen injector Inject 5 mg subcutaneously one time a week. 2 mL 2 03/13/2022 Active Comment on above: Inject 5 mg subcutan eously one time a week. tirzepatide (MOUNJARO) 7.5 mg/0.5 mL pen injector (17 sources) Start: inject 7.5 mg by subcutaneous injection every week tirzepatide (MOUNJARO) 7.5 mg/0.5 mL pen injector Inject 7.5 mg subcutaneously one time a week. 2 mL 5 05/12/2023 Active Start: 07-16-2022 End: 08-21-2022 inject 7.5 mg by subcutaneous injection every week tirzepatide (MOUNJARO) 7.5 mg/0.5 mL pen injector Inject 7.5 mg subcutaneously one time a week. 2 mL 0 07/16/2022 08/21/2022 Discontinued (Adverse Reaction) Start: 07-16-2022 inject 7.5 mg by sub cutaneous injection every week tirzepatide (MOUNJARO) 7.5 mg/0.5 mL pen injector Inject 7.5 mg subcutaneously one time a week. 2 mL 0 07/16/2022 Active Start: 03-15-2022 inject 7.5 mg by sub cutaneous injection every week tirzepatide (MOUNJARO) 7.5 mg/0.5 mL pen injector Indications: Type 2 diabetes (HCC) Inject 7.5 mg subcutaneously one time a week. 4 Each 1 03/15/2022 Active Comment on above: Inject 7.5 mg subcut aneously one time a week. tropicamide 10 mg/ml ophthalmic solution (3 sources) Anticholinergic Start: 11-12-2022 End: 11-13-2022 tropicamide 1 % 1 Drop (MYDRIACYL) Start: 06-04-2022 End: 06-04-2022 tropicamide 1 % 1 Drop (MYDR IACYL) Problems Active Problems Problem Classification Problem Date Documented Da te Episodic/Chronic Abdominal pain (20 sources) Upper abdominal pain; Translations: [Upper abdominal pain, unspecified] Onset: Episodic Acquired foot deformities (1 source) Hammer toe; Translations: [Other hammer toe(s) (acquired), unspecified foot] 10-23-2022 Chronic Acquired foot deformities (3 sources) Talipes planus; Translations: [Flat foot [pes planus] (acquired), right foot] Onset: 5 10-23-2022 Episodic Acute and unspecified renal failure (14 sources) Injury of kidney; Translations: [Acute kidney failure, unspecified] Episodic Comment on above: Do not restart diure tics for 3 days Administrative/social admission (4 sources) Other reduced mobility; Translations: [Other specified conditions influencing health status] Onset: 5 09-07-2024 Episodic Anxiety disorders (20 sources) Anxiety state; Translations: [Generalized anxiety disorder] Onset: 7 03-21-2015 Chronic Asthma (20 sources) Asthma; Translations: [Unspecified asthma, uncomplicated] 12-06-2014 Chronic Cardiac dysrhythmias (9 sources) Bradycardia; Translations: [Bradycardia, unspecified] Episodic Cataract (7 sources) Cortical age-related cataract of left eye; Translations: [Cortical age-related cataract, left eye] Chronic Chronic kidney disease (20 sources) Chronic kidney disease stage 3; Translations: [Stage 3 chronic kidney disease, unspecified whether stage 3a or 3b CKD (HCC)] Onset: 3 Chronic Chronic ulcer of skin (20 sources) Superficial skin ulcer of lower limb; Translations: [Non-pressure chronic ulcer of unspecified part of left lower leg limited to breakdown of skin] Onset: 2 Chronic Deficiency and other anemia (6 sources) Anemia of chronic disease; Translations: [Anemia associated with stage 3 chronic renal failure] Onset: 3 11-02-2024 Chronic Deficiency and other anemia (1 source) Anemia in chronic kidney disease; Translations: [Anemia associated with stage 3 chronic renal failure (HCC)] Onset: 5 Chronic Deficiency and other anemia (4 sources) Anemia; Translations: [Anemia, unspecified] Onset: 2 Episodic Deficiency and other anemia (6 sources) Chronic anemia; Translations: [Anemia, unspecified] 11-18-2021 Episodic Deficiency and other anemia (1 source) Nutritional anemia; Translations: [Folate deficiency anemia, unspecified] 09-24-2024 Episodic Deficiency and other anemia (1 source) Folate deficiency anemia, unspecified; Translations: [Anemia due to folic acid deficiency, unspecified deficiency type] Onset: 5 Episodic Deficiency and other anemia (1 source) Deficiency and other anemia; Translations: [Anemia associated with stage 3 chronic renal failure (HCC)] Onset: 5 Diabetes mellitus with complications (7 sources) Bullosis diabeticorum; Translations: [Type 2 diabetes mellitus with other skin complications] Onset: 5 Chronic Diabetes mellitus without complication (20 sources) Type 2 diabetes mellitus; Translations: [Type 2 diabetes mellitus without complications] Onset: 5 03-30-2019 Chronic Disorders of lipid metabolism (20 sources) Mixed hyperlipidemia; Translations: [Mixed hyperlipidemia] Onset: 3 Chronic Disorders of teeth and jaw (5 sources) Infection of tooth; Translations: [Periapical abscess without sinus] Episodic Diverticulosis and diverticulitis (5 sources) Diverticulitis; Translations: [Diverticulitis of intestine, part unspecified, without perforation or abscess without bleeding] 08-27-2023 Chronic Esophageal disorders (20 sources) Gastroesophageal reflux disease; Translations: [Gastro-esophageal reflux disease without esophagitis] Onset: 6 03-23-2009 Chronic Essential hypertension (20 sources) Hypertensive disorder; Translations: [Essential (primary) hypertension] Onset: 0 03-30-2019 Chronic Fluid and electrolyte disorders (20 sources) Hyperkalemia; Translations: [Hyperkalemia] Episodic Genitourinary symptoms and ill-defined conditions (4 sources) Incontinence; Translations: [Functional urinary incontinence] Chronic Hepatitis (20 sources) Chronic hepatitis; Translations: [Chronic hepatitis, unspecified] Onset: 6 02-19-2021 Chronic Immunity disorders (1 source) 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 Immunizations and screening for infectious disease (2 sources) Encounter for immunization; Translations: [Encounter for screening for human immunodeficiency virus [HIV]] Onset: 5 Episodic Inflammation; infection of eye (except that caused by tuberculosis or sexually transmitteddisease) (1 source) Conjunctivitis of left eye caused by bacteria; Translations: [Unspecified conjunctivitis] Episodic Miscellaneous mental health disorders (1 source) Primary insomnia; Translations: [Primary insomnia] Chronic Mood disorders (20 sources) Depressive disorder; Translations: [Depression] Onset: 6 01-24-2016 Chronic Nausea and vomiting (3 sources) Nausea; Translations: [Nausea] Episodic Neoplasms of unspecified nature or uncertain behavior (7 sources) IgM monoclonal gammopathy of uncertain significance; Translations: [Monoclonal gammopathy] Onset: 5 09-24-2024 Chronic Noninfectious gastroenteritis (5 sources) Gastroenteritis; Translations: [Noninfective gastroenteritis and colitis, unspecified] 08-14-2022 Episodic Nonspecific chest pain (1 source) Chest pain; Translations: [Chest pain, unspecified] Episodic Nutritional deficiencies (2 sources) Vitamin D deficiency; Translations: [Vitamin D deficiency, unspecified] Onset: 5 08-16-2024 Chronic Nutritional deficiencies (2 sources) Serum iron low; Translations: [Iron deficiency] Onset: 5 09-24-2024 Episodic Osteoarthritis (20 sources) Degenerative joint disease involving multiple joints; Translations: [Polyosteoarthritis, unspecified] Onset: 7 10-29-2006 Chronic Other aftercare (17 sources) Patient encounter status; Translations: [Other senior care (current) drug therapy] Episodic Other connective tissue disease (13 sources) Cramp in lower limb; Translations: [Cramp and spasm] Episodic Other connective tissue disease (13 sources) Spasm; Translations: [Other muscle spasm] Episodic Other connective tissue disease (3 sources) Mass of upper limb; Translations: [Other specified soft tissue disorders] 12-07-2021 Episodic Other connective tissue disease (1 source) Disorder of skeletal muscle; Translations: [Other symptoms and signs involving the musculoskeletal system] 08-31-2022 Episodic Other connective tissue disease (5 sources) Pain of toe of left foot; Translations: [Pain in left toe(s)] 10-23-2022 Episodic Other connective tissue disease (5 sources) Pain of toe of right foot; Translations: [Pain in right toe(s)] 10-23-2022 Episodic Other connective tissue disease (1 source) Mass of soft tissue of right upper limb; Translations: [Other specified soft tissue disorders] 12-07-2021 Episodic Other diseases of bladder and urethra (1 source) Other specified disorders of bladder; Translations: [Bladder spasm] Onset: Chronic Other diseases of kidney and ureters (1 source) Acute renal insufficiency; Translations: [Disorder of kidney and ureter, unspecified] 08-21-2022 Episodic Other eye disorders (1 source) Vitreous opacity of left eye; Translations: [Other vitreous opacities, left eye] Chronic Other eye disorders (1 source) Bilateral epiphora of eyes due to tear drainage disorder; Translations: [Epiphora due to insufficient drainage, bilateral] 11-12-2022 Episodic Other gastrointestinal disorders (7 sources) Malabsorption - iron; Translations: [Intestinal malabsorption, unspecified] Onset: 5 11-02-2024 Chronic Other gastrointestinal disorders (1 source) Intestinal malabsorption, unspecified; 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)] Onset: Chronic Other gastrointestinal disorders (6 sources) Diarrhea; Translations: [Diarrhea, unspecified] Episodic Other gastrointestinal disorders (1 source) Diarrhea, unspecified; Translations: [Diarrhea] 08-19-2022 Episodic Other gastrointestinal disorders (1 source) Constipation; Translations: [Constipation, unspecified] 05-07-2024 Episodic Other lower respiratory disease (2 sources) Dyspnea on exertion; Translations: [Dyspnea, unspecified] Episodic Other lower respiratory disease (6 sources) Chronic respiratory insufficiency; Translations: [Other abnormalities of breathing] 11-18-2021 Episodic Other lower respiratory disease (3 sources) Other abnormalities of breathing; Translations: [Other respiratory abnormalities] Episodic Other lower respiratory disease (5 sources) Hypoxia; Translations: [Hypoxemia] 11-21-2023 Episodic Other nervous system disorders (1 source) Bilateral carpal tunnel syndrome; Translations: [Carpal tunnel syndrome, bilateral upper limbs] Chronic Other nervous system disorders (1 source) Carpal tunnel syndrome 05-05-2014 Chronic Other nervous system disorders (7 sources) Chronic pain; Translations: [Other chronic pain] 08-15-2021 Chronic Other nervous system disorders (6 sources) Unable to walk; Translations: [Difficulty in walking, not elsewhere classified] 11-18-2021 Chronic Other nervous system disorders (3 sources) Difficulty in walking, not elsewhere classified; Translations: [Difficulty in walking] Chronic Other nervous system disorders (2 sources) Other chronic pain; Translations: [Other chronic pain] Chronic Other nervous system disorders (1 source) Nerve root disorder; 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, unspecified] 09-24-2024 Chronic Other nervous system disorders (1 source) Nerve root and plexus disorder, unspecified; 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] Onset: Chronic Other nervous system disorders (8 sources) Reduced mobility; Translations: [Other abnormalities of gait and mobility] Episodic Other nervous system disorders (4 sources) Abnormal gait; Translations: [Unsteadiness on feet] Episodic Other non-traumatic joint disorders (3 sources) Pain in right knee; Translations: [Pain in joint, lower leg] Episodic Other nutritional; endocrine; and metabolic disorders (20 sources) Morbid obesity; Translations: [Body mass index (BMI) 60.0-69.9, adult] Onset: 5 Resolved: 5 05-30-2015 Chronic Other nutritional; endocrine; and metabolic disorders (13 sources) Obesity; Translations: [Obesity, unspecified] Chronic Other nutritional; endocrine; and metabolic disorders (7 sources) Alveolar hypoventilation; Translations: [Morbid (severe) obesity with alveolar hypoventilation] 11-18-2021 Chronic Other nutritional; endocrine; and metabolic disorders (6 sources) Other obesity due to excess calories; Translations: [Obesity, unspecified] Chronic Other nutritional; endocrine; and metabolic disorders (8 sources) Morbid (severe) obesity with alveolar hypoventilation; Translations: [Obesity hypoventilation syndrome] Chronic Other nutritional; endocrine; and metabolic disorders (3 sources) Obesity caused by energy imbalance; Translations: [Other obesity due to excess calories] 08-01-2021 Chronic Other nutritional; endocrine; and metabolic disorders (1 source) Body mass index 40+ - severely obese; Translations: [Morbid (severe) obesity due to excess calories] 05-19-2023 Chronic Other nutritional; endocrine; and metabolic disorders (5 sources) Severe obesity; Translations: [Class 3 severe obesity due to excess calories with body mass index (BMI) of 50.0 to 59.9 in adult, unspecified whether serious comorbidity present (HCC)] 08-16-2024 Chronic Other nutritional; endocrine; and metabolic disorders (1 source) Body mass index (BMI) 50.0-59.9, adult; Translations: [Class 3 severe obesity due to excess calories with body mass index (BMI) of 50.0 to 59.9 in adult, unspecified whether serious comorbidity present (HCC)] Onset: 5 Chronic Other nutritional; endocrine; and metabolic disorders (1 source) Morbid (severe) obesity due to excess calories; Translations: [Class 3 severe obesity due to excess calories without serious comorbidity with body mass index (BMI) of 40.0 to 44.9 in adult ([facility])] Onset: 5 Chronic Other nutritional; endocrine; and metabolic disorders (1 source) Body mass index (BMI) 40.0-44.9, adult; Translations: [Class 3 severe obesity due to excess calories without serious comorbidity with body mass index (BMI) of 40.0 to 44.9 in adult ([facility])] Onset: 5 Chronic Other nutritional; endocrine; and metabolic disorders (6 sources) H/O: diabetes mellitus; Translations: [Personal history of other endocrine, nutritional and metabolic disease] 11-18-2021 Episodic Other nutritional; endocrine; and metabolic disorders (4 sources) Personal history of other endocrine, nutritional and metabolic disease; Translations: [Personal history of other endocrine, metabolic, and immunity disorders] Episodic Other screening for suspected conditions (not mental disorders or infectious disease) (20 sources) Serum creatinine raised; Translations: [Other specified abnormal findings of blood chemistry] Onset: 5 Episodic Other upper respiratory disease (20 sources) Allergic rhinitis; Translations: [Allergic rhinitis, unspecified] Onset: 8 12-14-2019 Chronic Other upper respiratory disease (1 source) Allergic rhinitis, unspecified; Translations: [Allergic rhinitis, unspecified seasonality, unspecified trigger] Onset: 0 Chronic Other upper respiratory disease (1 source) Nasal congestion; Translations: [Nasal congestion] 08-21-2022 Episodic Peripheral and visceral atherosclerosis (1 source) Peripheral vascular disease; Translations: [Peripheral vascular disease, unspecified] Chronic Pulmonary heart disease (20 sources) Pulmonary hypertension; Translations: [Pulmonary hypertension, unspecified] Onset: 4 04-23-2013 Chronic Residual codes; unclassified (20 sources) Obstructive sleep apnea syndrome; Translations: [Obstructive sleep apnea (adult) (pediatric)] 03-30-2019 Chronic Residual codes; unclassified (3 sources) Sleep apnea; Translations: [Sleep apnea, unspecified] 05-05-2014 Chronic Residual codes; unclassified (1 source) Obstructive sleep apnea (adult) (pediatric); Translations: [Obstructive sleep apnea] Onset: 0 Chronic Residual codes; unclassified (1 source) Sleep apnea, unspecified; Translations: [Severe sleep apnea] Onset: 5 Chronic Residual codes; unclassified (1 source) Did not attend; Translations: [Procedure and treatment not carried out because of patient's decision for other reasons] Episodic Residual codes; unclassified (1 source) Ankle edema 08-18-2015 Episodic Residual codes; unclassified (1 source) Insomnia; Translations: [Insomnia, unspecified] Episodic Residual codes; unclassified (1 source) H/O: metabolic disorder; Translations: [Personal history of other specified conditions] Episodic Residual codes; unclassified (1 source) Other specified health status; Translations: [Impaired mobility and activities of daily living] Onset: 5 Episodic Respiratory failure; insufficiency; arrest (adult) (7 sources) Chronic hypoxemic respiratory failure; Translations: [Chronic respiratory failure with hypoxia] 05-19-2023 Chronic Skin and subcutaneous tissue infections (2 sources) Infection of skin; Translations: [Local infection of the skin and subcutaneous tissue, unspecified] Episodic Superficial injury; contusion (6 sources) Hematoma of axilla; Translations: [Contusion of right upper arm, initial encounter] 11-21-2021 Episodic Unclassified (1 source) NO SHOW Unclassified (1 source) Class 3 severe obesity due to excess calories with body mass index (BMI) of 50.0 to 59.9 in adult, unspecified whether serious comorbidity present (HCC); Translations: [Class 3 severe obesity due to excess calories with body mass index (BMI) of 50.0 to 59.9 in adult, unspecified whether serious comorbidity present (HCC)] Onset: 5 Unclassified (1 source) Class 3 severe obesity due to excess calories without serious comorbidity with body mass index (BMI) of 40.0 to 44.9 in adult (HCC); Translations: [Class 3 severe obesity due to excess calories without serious comorbidity with body mass index (BMI) of 40.0 to 44.9 in adult (HCC)] Onset: 5 Urinary tract infections (9 sources) Acute cystitis; Translations: [Acute cystitis with hematuria] Onset: 06-23-2024 Episodic Varicose veins of lower extremity (1 source) Stasis ulcer 05-05-2014 Episodic Past or Other Problems Problem Classification Problem Date Documented Da te Episodic/Chronic Deficiency and other anemia (20 sources) Iron deficiency anemia; Translations: [Iron deficiency anemia, unspecified] Onset: 01-20-2007 03-23-2009 Episodic Deficiency and other anemia (5 sources) Iron deficiency anemia, unspecified; Translations: [Iron deficiency anemia, unspecified] Onset: 03-23-2009 Episodic Deficiency and other anemia (4 sources) Anemia, unspecified; Translations: [Anemia, unspecified] Onset: 08-24-2024 Episodic Genitourinary symptoms and ill-defined conditions (20 sources) Dysuria; Translations: [Dysuria] Onset: 05-12-2024 Episodic Malaise and fatigue (20 sources) Asthenia; Translations: [Weakness] Onset: 08-16-2024 Episodic Mycoses (10 sources) Candidiasis of vagina; Translations: [Monilial vaginitis] Onset: 06-22-2024 Episodic Other aftercare (1 source) Encounter for therapeutic drug level monitoring; Translations: [Encounter for therapeutic drug monitoring] Onset: 08-16-2024 Episodic Other aftercare (1 source) Other intermission coordinator (current) drug therapy; Translations: [Encounter for long-term current use of medication] Onset: 05-12-2024 Episodic Other connective tissue disease (1 source) Pain in left toe(s); Translations: [Pain in toe of left foot] Onset: 06-22-2024 Episodic Other connective tissue disease (1 source) Pain in right toe(s); Translations: [Pain in toe of right foot] Onset: 06-22-2024 Episodic Residual codes; unclassified (20 sources) Edema; Translations: [Edema, unspecified] Onset: 06-01-2007 03-23-2009 Episodic Residual codes; unclassified (20 sources) Bilateral lower limb edema; Translations: [Localized edema] Onset: 02-20-2022 Episodic Spondylosis; intervertebral disc disorders; other back problems (20 sources) Spinal stenosis of lumbar region; Translations: [Spinal stenosis, lumbar region without neurogenic claudication] Onset: 07-09-2007 02-19-2021 Episodic Unclassified (1 source) Impaired mobility and activities of daily living 09-07-2024 Unclassified (1 source) Patient encounter status 10-02-2024 Unclassified (1 source) Elevated brain natriuretic peptide (BNP) level 11-01-2024 Results Test Name Value Interpretation Reference Range Facility MR/Ayo 12-08-2024 /[facility] [address], [address] [place] [address] OFFICE VISIT Date of Service: 12/08/24 MR#: [id number] Acct: [id number] Name: MEGGAN ARITA Rep #: [id number] : 1960 Provider: Dr. Jennifer Justin i, MD Age/Sex: 63/F [place] [facility] [place]: Signed Intake Vital Signs 12/26/23 13:25 12/08/24 10:56 Height 5 ft 8 in 5 ft 8 in Weight: 340 lb BMI 51.7 BP 135/75 H Pulse 76 Intake Visit Reasons: Freq. 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 Operator Required: No Accompanied by: Is patient in pain?: No Allergies codeine Allergy (Verified 12/08/24 10:55) Nausea/Vom/Diarrhea iodine Allergy (Verified 12/08/24 10:55) Swelling latex Allergy (Verified 12/08/24 10:55) Shortness of breath meloxicam Allergy (Verified 12/08/24 10:55) Rash Penicillins Allergy (Verified 12/08/24 10:55) Shortness of breath tositumomab Allergy (Verified 12/08/24 10:55) NEEDS FOLLOW-UP hydrocodone bitartrate (From Vicodin) Adverse Reaction (Verified 12/08/24 10:55) Nausea/Vom/Diarrhea Medications ???Medication ???Instructions ???Recorded ???Confirmed ???Type albuterol sulfate 2.5 mg/3 mL 2.5 mg inhalation Q6HWA.RT PRN 12/08/24 History (0.083 %) solution for nebulization Asthma acetaminophen 325 mg tablet 650 mg (2 x 325 mg) PO Q6H PRN PRN 08/15/21 12/08/24 Rx (Tylenol) Pain Score 1-10/Temp > 100.7 F #0 tabs ascorbic acid (vitamin C) 500 mg 500 mg PO BIDCM #0 tabs 08/15/21 1 Rx tablet ferrous sulfate 325 mg (65 mg 325 mg PO BIDCM #0 tabs 08/15/21 1 Rx iron) tablet (FeroSul) diclofenac sodium 1 % topical gel 1 ea topical PRN PRN Pain 2 12/08/24 History lorazepam 1 mg tablet 1 mg PO BID PRN PRN Anxiety #5 tab s 11/20/21 12/08/24 Rx fluticasone propionate 50 2 spray DAILY PRN Sinus Symptoms 1 04/02/21 12/08/24 Rx mcg/actuation nasal #16 grams spray,suspension potassium chloride 20 mEq 20 meq PO BIDCM #14 tabs 08/19/22 12/08/24 Rx tablet,extended release(part/cryst) (Klor-Con M) albuterol sulfate 90 mcg/actuation 2 puff inhalation Q4H PRN 12/08/24 Rx aerosol inhaler (Ventolin HFA) shortness of breath or wheezing #18 grams bupropion HCl 300 mg 24 hr tablet, 300 mg PO QDAY 06/30/23 12/08/24 History extended release cholecalciferol (vitamin D3) 50 50 mcg PO QDAY 06/30/23 12/08/24 H istory mcg (2,000 unit) capsule cyclobenzaprine 5 mg tablet 5 mg PO TID PRN 06/30/23 12/08/24 History furosemide 40 mg tablet 40 mg PO QDAY PRN 06/30/23 5 History losartan 50 mg tablet 100 mg PO DAILY 06/30/23 12/08/24 History metolazone 5 mg tablet 5 mg PO QDAY 06/30/23 12/08/24 His tory mometasone-formoterol HFA 200 2 puff inhalation BID 06/30/23 History mcg-5 mcg/actuation aerosol inhaler (Dulera) montelukast 10 mg tablet 10 mg PO QDAY 06/30/23 12/08/24 Hi story polyethylene glycol 3350 17 gram 17 g PO DAILY PRN 06/30/23 5 History oral powder packet (Miralax) tirzepatide 2.5 mg/0.5 mL 5 mg subcut 06/30/23 12/08/24 Hist ory subcutaneous pen injector (Dania) venlafaxine 75 mg capsule,extended 75 mg PO QDAY 06/30/23 12/08/24 History release 24 hr atorvastatin 10 mg tablet 10 mg PO QDAY 12/08/24 12/08/24 Hi story dicyclomine 10 mg capsule 10 mg PO Q6 PRN 12/08/24 12/08/24 History metformin 500 mg tablet,extended 500 mg PO QDAY 12/08/24 12/08/24 H istory release 24 hr nystatin 100,000 unit/gram topical 1 applic topical QDAY 12/08/24 1 History powder pantoprazole 40 mg tablet,delayed 40 mg PO QDAY 12/08/24 12/08/24 H istory release topiramate 100 mg tablet 100 mg PO BID 12/08/24 12/08/24 Hi story Nurse's Note: lower abdominal cramping on and off. Bladder scan PVR 8cc PFSH Medical History Hypokalemia Asymptomatic bacteriuria Gastroenteritis Chronic respiratory failure with hypoxia and hypercapnia Anemia Anxiety Sleep apnea CPAP (continuous positive airway pressure) dependence Asthma Type 2 diabetes mellitus Obesity Hypertension Surgical History History of ankle surgery Previous section History of cholecystectomy Family History Other Diabetes Heart disease Hypertension Social History household members: other Smoking Status: Never smoker alcohol intake: never substance use type: does not use HPI HPI Urology Chief Complaint: new patient- frequent uti Details: MEGGAN ARITA, is a 63 F. She is here for evaluation and management of urinary tra (more content not included)... Normal [facility] CBC W Auto Differential pane l (Bld)on 12-03-2024 Basophils (Bld) [#/Vol] 0.06 10*3/uL Normal <0.11 [facility] Comment on above: Order Comment: Speci men Type: BLOOD SPECIMENOrdering Facility: [facility] Address: [address] [place] [address] Performed By: #### 5 7021-8 ####[facility] MILLTOWNCLIA [id number] [place] [address] [place] Basophils/100 WBC (Bld) 0.8 % Normal [facility] Comment on above: Order Comment: Speci men Type: BLOOD SPECIMENOrdering Facility: [facility] Address: [address] [place] [address] Performed By: #### 5 7021-8 ####[facility] MILLWNCLIA [id number] [place] [address] [place] Differential cell count method Nom (Bld) Auto Normal [facility] Comment on above: Order Comment: Speci men Type: BLOOD SPECIMENOrdering Facility: [facility] Address: [address] [place] [address] Performed By: #### 5 7021-8 ####[facility] MILLWNCLIA [id number] [place] [address] [place] Eosinophils (Bld) [#/Vol] 0.35 10*3/uL Normal <0.46 [facility] Comment on above: Order Comment: Speci men Type: BLOOD SPECIMENOrdering Facility: [facility] Address: [address] [place] [address] Performed By: #### 5 7021-8 ####[facility] MILLTOWNCLIA [id number] [place] [address] [place] Eosinophils/100 WBC (Bld) 4.9 % Normal [facility] Comment on above: Order Comment: Speci men Type: BLOOD SPECIMENOrdering Facility: [facility] Address: [address] [place] [address] Performed By: #### 5 7021-8 ####[facility] MILLTOWNCLIA [id number] [place] [address] [place] Erythrocyte distribution width (RBC) [Ratio] 12.0 % Normal 11.5-15.0 [facility] Comment on above: Order Comment: Speci men Type: BLOOD SPECIMENOrdering Facility: [facility] Address: [address] [place] [address] Performed By: #### 5 7021-8 ####[facility] [id number] [place] [address] [place] Hematocrit (Bld) [Volume fraction] 38.8 % Normal 36.0-46.0 [facility] Comment on above: Order Comment: Speci men Type: BLOOD SPECIMENOrdering Facility: [facility] Address: [address] [place] [address] Performed By: #### 5 7021-8 ####[facility] [id number] [place] [address] [place] Hemoglobin (Bld) [Mass/Vol] 11.9 g/dL Normal 11.5-15.5 [facility] Comment on above: Order Comment: Speci men Type: BLOOD SPECIMENOrdering Facility: [facility] Address: [address] [place] [address] Performed By: #### 5 7021-8 ####[facility] [id number] [place] [address] [place] Immature granulocytes (Bld) [#/Vol] 0.03 10*3/uL Normal <0.10 [facility] Comment on above: Order Comment: Speci men Type: BLOOD SPECIMENOrdering Facility: [facility] Address: [address] [place] [address] Performed By: #### 5 7021-8 ####[facility] [id number] [place] [address] [place] Immature granulocytes/100 WBC (Bld) 0.4 % Normal [facility] Comment on above: Order Comment: Speci men Type: BLOOD SPECIMENOrdering Facility: [facility] Address: [address] [place] [address] Performed By: #### 5 7021-8 ####[facility] [id number] [place] [address] [place] Lymphocytes (Bld) [#/Vol] 0.90 10*3/uL Low 1.00-4.00 [facility] Comment on above: Order Comment: Speci men Type: BLOOD SPECIMENOrdering Facility: [facility] Address: [address] [place] [address] Performed By: #### 5 7021-8 ####[facility] [id number] [place] [address] [place] Lymphocytes/100 WBC (Bld) 12.6 % Normal [facility] Comment on above: Order Comment: Speci men Type: BLOOD SPECIMENOrdering Facility: [facility] Address: [address] [place] [address] Performed By: #### 5 7021-8 ####[facility] [id number] [place] [address] [place] MCH (RBC) [Entitic mass] 29.2 pg Normal 26.0-34.0 [facility] Comment on above: Order Comment: Speci men Type: BLOOD SPECIMENOrdering Facility: [facility] Address: [address] [place], [place] [address] Performed By: #### 5 7021-8 ####[facility] [id number] [place] [address] [place] MCHC (RBC) [Mass/Vol] 30.7 g/dL Normal 30.5-36.0 [facility] Comment on above: Order Comment: Speci men Type: BLOOD SPECIMENOrdering Facility: [facility] Address: [address] [place] [address] Performed By: #### 5 7021-8 ####[facility] MAXWELLIOLAREJI [id number] [place] [address] [place] MCV (RBC) [Entitic vol] 95.3 fL Normal 80.0-100.0 [facility] Comment on above: Order Comment: Speci men Type: BLOOD SPECIMENOrdering Facility: [facility] Address: [address] [place] [address] Performed By: #### 5 7021-8 ####[facility] [id number] [place] [address] [place] Monocytes (Bld) [#/Vol] 0.65 10*3/uL Normal <0.87 [facility] Comment on above: Order Comment: Speci men Type: BLOOD SPECIMENOrdering Facility: [facility] Address: [address] [place] [address] Performed By: #### 5 7021-8 ####[facility] [id number] [place] [address] [place] Monocytes/100 WBC (Bld) 9.1 % Normal [facility] Comment on above: Order Comment: Speci men Type: BLOOD SPECIMENOrdering Facility: [facility] Address: [address] [place] [address] Performed By: #### 5 7021-8 ####[facility] [id number] [place] [address] [place] Neutrophils (Bld) [#/Vol] 5.15 10*3/uL Normal 1.45-7.50 [facility] Comment on above: Order Comment: Speci men Type: BLOOD SPECIMENOrdering Facility: [facility] Address: [address] [place] [address] Performed By: #### 5 7021-8 ####[facility] [id number] [place] [address] [place] Neutrophils/100 WBC (Bld) 72.2 % Normal [facility] Comment on above: Order Comment: Speci men Type: BLOOD SPECIMENOrdering Facility: [facility] Address: [address] [place] [address] Performed By: #### 5 7021-8 ####[facility]ITALREJI [id number] [place] [address] [place] Nucleated RBC (Bld) [#/Vol] 10*3/uL Normal <0.01 [facility] Comment on above: Order Comment: Speci men Type: BLOOD SPECIMENOrdering Facility: [facility] Address: [address] [place] [address] Performed By: #### 5 7021-8 ####[facility] [id number] [place] [address] [place] Nucleated RBC/100 WBC (Bld) [Ratio] 0.0 /100 WBC Normal [facility] Comment on above: Order Comment: Speci men Type: BLOOD SPECIMENOrdering Facility: [facility] Address: [address] [place] [address] Performed By: #### 5 7021-8 ####[facility] [id number] [place] [address] [place] Platelet mean volume (Bld) [Entitic vol] 10.4 fL Normal 9.0-12.7 [facility] Comment on above: Order Comment: Speci men Type: BLOOD SPECIMENOrdering Facility: [facility] Address: [address] [place] [address] Performed By: #### 5 7021-8 ####[facility]ITAL[facility]CL[facility] [id number] [place] [address] [place] Platelets (Bld) [#/Vol] 224 10*3/uL Normal 150-400 [facility] Comment on above: Order Comment: Speci men Type: BLOOD SPECIMENOrdering Facility: [facility] Address: [address] [place] [address] Performed By: #### 5 7021-8 ####[facility]ITAL[facility]CLIA [id number] [place] [address] [place] RBC (Bld) [#/Vol] 4.07 10*6/uL Normal 3.90-5.20 [facility] Comment on above: Order Comment: Speci men Type: BLOOD SPECIMENOrdering Facility: [facility] Address: [address] [place] [address] Performed By: #### 5 7021-8 ####[facility]ITAL[facility]CLIA [id number] [place] [address] [place] WBC (Bld) [#/Vol] 7.14 10*3/uL Normal 3.70-11.00 [facility] Comment on above: Order Comment: Speci men Type: BLOOD SPECIMENOrdering Facility: [facility] Address: [address] [place] [address] Performed By: #### 5 7021-8 ####[facility]ITALNCLIA [id number] [place] [address] [place] CNOVSPon 12-03-2024 CNOVSP Normal [facility] CNPNon 12-02-2024 CNPN Normal [facility] CNPNon 12-01-2024 CNPN Normal [facility] CNNURSEon 11-29-2024 CNNURSE Normal [facility] CNPNon 11-26-2024 CNPN Normal [facility] CNOVon 11-25-2024 CNOV Normal [facility] CNPNon 11-15-2024 CNPN Normal [facility] CNPNon 11-07-2024 CNPN Normal [facility] CNPNon 11-01-2024 CNPN Normal [facility] MONOCLONAL PROT 24 UR W/INTE RPon 11-01-2024 STAFF REVIEW (PA) Reviewed by Terri Cobb M.D., Ph.D Normal [facility] Comment on above: Order Comment: Speci men Type: URINE SPECIMENOrdering Facility: [facility] Address: [address] [place] [address] Performed By: #### U 24MPA ####[facility] LABIA [id number] [address] UMPA RESULT No M protein is identified. Normal No M protein is identified. [facility] Comment on above: Order Comment: Speci men Type: URINE SPECIMENOrdering Facility: [facility] Address: [address] [place] [address] Performed By: #### U 24MPA ####[facility] LABIA [id number] [address] [place] Orthopedic Visit Reporton Orthopedic Visit Report [facility] [address] [place] [address] OFFICE VISIT Date of Service: 11/01/24 MR#: [id number] Acct: [id number] Name: MEGGAN ARITA Rep #: [id number] : 1960 Provider: Dr. Sam Toussaint so, DO Age/Sex: 63/F Location: [facility] [place] Status: Signed Intake Vital Signs 12/26/23 13:25 Height 5 ft 8 in Intake Visit Reasons: bilateral knees Chief Complaint: BL Knees Is patient in pain?: Yes (BL knees ) Pain scale (1-10): 9 Allergies codeine Allergy (Verified 11/01/24 11:27) Nausea/Vom/Diarrhea iodine Allergy (Verified 11/01/24 11:27) Swelling latex Allergy (Verified 11/01/24 11:27) Shortness of breath meloxicam Allergy (Verified 11/01/24 11:27) Rash Penicillins Allergy (Verified 11/01/24 11:27) Shortness of breath tositumomab Allergy (Verified 11/01/24 11:27) NEEDS FOLLOW-UP hydrocodone bitartrate (From Vicodin) Adverse Reaction (Verified 11/01/24 11:27) Nausea/Vom/Diarrhea Medications ???Medication ???Instructions ???Recorded ???Confirmed ???Type albuterol sulfate 2.5 mg/3 mL 2.5 mg inhalation Q6HWA.RT PRN 11/01/24 History (0.083 %) solution for nebulization Asthma acetaminophen 325 mg tablet 650 mg (2 x 325 mg) PO Q6H PRN PRN 08/15/21 11/01/24 Rx (Tylenol) Pain Score 1-10/Temp > 100.7 F #0 tabs ascorbic acid (vitamin C) 500 mg 500 mg PO BIDCM #0 tabs 08/15/21 0 11/01/24 Rx tablet ferrous sulfate 325 mg (65 mg 325 mg PO BIDCM #0 tabs 08/15/21 0 11/01/24 Rx iron) tablet (FeroSul) diclofenac sodium 1 % topical gel 1 ea topical PRN PRN Pain 11/18/2 2 11/01/24 History lorazepam 1 mg tablet 1 mg PO BID PRN PRN Anxiety #5 tab s 11/20/21 11/01/24 Rx fluticasone propionate 50 2 spray DAILY PRN Sinus Symptoms 1 04/02/21 11/01/24 Rx mcg/actuation nasal #16 grams spray,suspension potassium chloride 20 mEq 20 meq PO BIDCM #14 tabs 08/19/22 11/01/24 Rx tablet,extended release(part/cryst) (Klor-Con M) albuterol sulfate 90 mcg/actuation 2 puff inhalation Q4H PRN 11/01/24 Rx aerosol inhaler (Ventolin HFA) shortness of breath or wheezing #18 grams bupropion HCl 300 mg 24 hr tablet, 300 mg PO QDAY 06/30/23 11/01/24 History extended release cholecalciferol (vitamin D3) 50 50 mcg PO QDAY 06/30/23 11/01/24 H istory mcg (2,000 unit) capsule cyclobenzaprine 5 mg tablet 5 mg PO TID PRN 06/30/23 11/01/24 History furosemide 40 mg tablet 40 mg PO QDAY PRN 06/30/23 5 History losartan 50 mg tablet 100 mg PO DAILY 06/30/23 11/01/24 History metolazone 5 mg tablet 5 mg PO QDAY 06/30/23 11/01/24 His tory mometasone-formoterol HFA 200 2 puff inhalation BID 06/30/2310/18 History mcg-5 mcg/actuation aerosol inhaler (Dulera) montelukast 10 mg tablet 10 mg PO QDAY 06/30/23 11/01/24 Hi story polyethylene glycol 3350 17 gram 17 g PO DAILY PRN 06/30/23 5 History oral powder packet (Miralax) tirzepatide 2.5 mg/0.5 mL 5 mg subcut 06/30/23 11/01/24 Hist ory subcutaneous pen injector (Mounjosef) venlafaxine 75 mg capsule,extended 75 mg PO QDAY 06/30/23 11/01/24 History release 24 hr metronidazole 500 mg tablet 500 mg PO Q8H #21 tabs 08/04/23 Rx oxycodone-acetaminophen 5 mg-325 1 tab PO Q6H PRN PRN Pain 3 days 0 08/04/23 11/01/24 Rx mg tablet #12 TABLETS omeprazole 40 mg capsule,delayed 40 mg PO QDAY #30 caps 06/08/24 Rx release sucralfate 1 gram tablet 1 g PO QACHS #120 tabs 07/16/24 Rx PFSH Medical History Hypokalemia Asymptomatic bacteriuria Gastroenteritis Chronic respiratory failure with hypoxia and hypercapnia Anemia Anxiety Sleep apnea CPAP (continuous positive airway pressure) dependence Asthma Type 2 diabetes mellitus Obesity Hypertension Surgical History History of ankle surgery Previous section History of cholecystectomy Family History Other Diabetes Heart disease Hypertension Social History household members: other Smoking Status: Never smoker alcohol intake: never substance use type: does not use HPI bilateral knees Details: This documentation accurately reflects the service provided and the decisions made by me, Dr. Sam Goodson, DO 11/01/24 0827. Part of today???s visit was documented by Jaky Silvestre RN, acting as scribe. MEGGAN ARITA is a 63 year old F here today for BL knee pain. She complains of bilateral knee pain. She rates her pain 9/10. The pain returned over the last two months and she would like steroid injections in her knees a (more content not included)... Normal [facility] PROT ELEC UR 24HR W/M SPIKE (P)on 11-01-2024 Albumin/Globulin Elph (24H U) [Mass ratio] 36.99 % Normal [facility] Comment on above: Order Comment: Speci men Type: URINE SPECIMENOrdering Facility: [facility] Address: [address] [place] [address] Performed By: #### L [id number] ####[facility] LABCLIA [id number] [place] [address] [place] Alpha 1 globulin Elph (24H U) [Mass fraction] 3.86 % Normal [facility] Comment on above: Order Comment: Speci men Type: URINE SPECIMENOrdering Facility: [facility] Address: [address] [place] [address] Performed By: #### L [id number] ####[facility] LABCLIA [id number] [place] [address] [place] Alpha 2 globulin Elph (24H U) [Mass fraction] 13.40 % Normal [facility] Comment on above: Order Comment: Speci men Type: URINE SPECIMENOrdering Facility: [facility] Address: [address] [place] [address] Performed By: #### L [id number] ####[facility] LABCLIA [id number] [place] [address] [place] Beta globulin Elph (24H U) [Mass fraction] 22.68 % Normal [facility] Comment on above: Order Comment: Speci men Type: URINE SPECIMENOrdering Facility: [facility] Address: [address] [place] [address] Performed By: #### L [id number] ####[facility] [id number] [place] [address] [place] [facility] Gamma globulin Elph (24H U) [Mass fraction] 23.07 % Normal [facility] Comment on above: Order Comment: Speci men Type: URINE SPECIMENOrdering Facility: [facility] Address: [address] [place] [address] Performed By: #### L [id number] ####[facility] [id number] [address] STATES [facility] Protein Fractions Elph Kevin (24H U) [Interp] No definitive M protein is identified on protein electrophoresis. Normal No definitive M protein is identified on protein electrophor esis. [facility] Comment on above: Order Comment: Speci men Type: URINE SPECIMENOrdering Facility: [facility] Address: [address] [place] [address] Performed By: #### L [id number] ####[facility] [id number] [address] [place] [facility] Protein.monoclonal Elph (24H U) [Mass/Time] 0.00 g/24hr Normal [facility] Comment on above: Order Comment: Speci men Type: URINE SPECIMENOrdering Facility: [facility] Address: [address] [place] [address] Performed By: #### L [id number] ####[facility] [id number] [address] [place] STAFF REVIEW ([id number]) Reviewed by Vijay Cobb M.D., Ph.D Normal [facility] Comment on above: Order Comment: Speci men Type: URINE SPECIMENOrdering Facility: [facility] Address: [address] [place] [address] Performed By: #### L [id number] ####[facility] LABCLIA [id number] [place] [id number] [place] Prot 24h Ur-mRateon 11-02-19 25 Protein (24H U) [Mass/Time] 0.03 g/24 Hr Normal <0.15 [facility] Comment on above: Order Comment: Speci men Type: URINE SPECIMENOrdering Facility: [facility] Address: [address] [place] [address] Result Comment: Adul t Proteinuria Categories:<0.15 g/24 hours is considered normal to mildly increased0.15 - 0.50 g/24 hours is considered moderately increased>0.50 g/24 hours is considered severely increasedKDIGO. (2013). KDIGO 2012 Clinical Practice Guideline for the Evaluation and Management of Chronic Kidney Disease. Official Journal of the International Society of Nephrology, 3(1), 1-150. Performed By: #### 2 889-4 ####[facility] LABIA [id number] [id number] [place] [address] [place] Protein (24H U) [Mass/Time]o n 11-01-2024 PERIOD (HRS) 24 hr Normal [facility] Comment on above: Order Comment: Speci men Type: URINE SPECIMENOrdering Facility: [facility] Address: [address] [place] [address] Performed By: #### 2 889-4 ####[facility] LABIA [id number] [place] [id number] [facility] [id number] [place] [address] Specimen volume (24H U) 0.4 L Normal [facility] Comment on above: Order Comment: Speci men Type: URINE SPECIMENOrdering Facility: [facility] Address: [address] [place] [address] Performed By: #### 2 889-4 ####[facility] LABIA [id number] [place] [id number] [place] [facility] MILLTOWNCLIA [id number] [place] [address] [place] Bacteria Ur Culton Bacteria identified Cx Nom (U) Normal [facility] Comment on above: Performed By: #### 6 30-4 ####[facility] LABIA [id number] [place] [id number] [place] CNOVon 10-29-2024 CNOV Normal [facility] CNOVSPon 10-29-2024 CNOVSP Normal [facility] COPPER BLOODon 10-29-2024 Copper [Mass/Vol] 138 ug/dL Normal 80-155 [facility] Comment on above: Order Comment: Speci men Type: BLOOD SPECIMENOrdering Facility: [facility] Address: [address] [place] [address] Result Comment: This test was developed, and its performance characteristics determined by the [facility] Department of Pathology and Laboratory Medicine. It has not been cleared or approved by the FDA. The [facility] Department of Pathology and Laboratory Medicine is regulated under CLIA as qualified to perform high-complexity testing. This test is used for clinical purposes. It should not be regarded as investigational or for research. Performed By: #### C OPPER ####[facility]ENTER[facility] [id number] [place] [id number] [place] ECG COMPLETEon 10-29-2024 Atrial Rate 76 BPM [facility] Calculated P [place] 49 degrees [facility] Calculated R [place] -46 degrees [facility] Calculated T [place] 72 degrees [facility] P-R Interval 192 ms [facility] QRS Duration 142 ms [facility] QT Interval 430 ms [facility] QTC Calculation (Bazett) 483 ms [facility] Ventricular Rate [address] [facility] SINUS RHYTHM WITH OCCASIONAL PREMATURE VENTRICULAR COMPLEXES NONSPECIFIC INTRAVENTRICULAR BLOCK MINIMAL VOLTAGE CRITERIA FOR LVH, MAY BE NORMAL VARIANT ( Greg product ) ABNORMAL ECG Confirmed by MD LONGORIA QARAB ([id number]) on 10/29/2024 4:44:54 PM [facility] NAME : WILLY ARITA SA PID : [id number] : 1960 Gender : Female Race : ORD : Procedure Date : Oct 29 2024 10:59:55 Edit Date : Oct 29 2024 16:44:58 Diagnosis: SINUS RHYTHM WITH OCCASIONAL PREMATURE VENTRICULAR COMPLEXES NONSPECIFIC INTRAVENTRICULAR BLOCK MINIMAL VOLTAGE CRITERIA FOR LVH, MAY BE NORMAL VARIANT ( Greg product ) ABNORMAL ECG Confirmed by MD LONGORIA QARAB ([id number]) on 10/29/2024 4:44:54 PM Test Reason : Location : 189 : [facility] Overread By : MD LONGORIA QARAB Edited By : MD LONGORIA QARAB Referred By : Rj Dempsey Acquired by : Joseph Bustillos, [facility] [id number] 10-29-2024 ECG01 Normal [facility] EPO SerPl-aCncon 10-29-2024 Erythropoietin (EPO) Qn 13.9 mIU/mL Normal 2.6-18.5 [facility] Comment on above: Order Comment: Speci men Type: BLOOD SPECIMENOrdering Facility: [facility] Address: [address] [place] [address] Performed By: #### 1 5061-5 ####[facility] LABCLIA [id number] [place] [address] [place] Ferritin SerPl-mCncon 2024 Ferritin [Mass/Vol] 286.0 ng/mL High 14.7-205.1 [facility] Comment on above: Order Comment: Speci men Type: BLOOD SPECIMENOrdering Facility: [facility] Address: [address] [place] [address] Performed By: #### 2 276-4, HSTNT, 32229-1, 48882-4 ####[facility] LABCLIA [id number] [place] [address] [place] HIGH SENSITIVITY TROPONIN To n 10-29-2024 Troponin T.cardiac High sensitivity method [Mass/Vol] 25 ng/L High <12 [facility] Comment on above: Order Comment: Speci men Type: BLOOD SPECIMENOrdering Facility: [facility] Address: [address] [place] [address] Performed By: #### 2 276-4, HSTNT, 49653-6, 73242-1 ####[facility] LABCLIA [id number] [place] [address] [place] [employer] binding capaci ty panelon 10-29-2024 Iron [Mass/Vol] 35 ug/dL Low 41-186 [facility] [facility] Comment on above: Order Comment: Speci men Type: BLOOD SPECIMENOrdering Facility: [facility] Address: [address] [place] [address] Performed By: #### 2 276-4, HSTNT, 17535-5, 98412-6 ####[facility] LABCLIA [id number] [place] [address] [place] Iron binding capacity [Mass/Vol] 228 ug/dL Low 232-386 [facility] Comment on above: Order Comment: Speci men Type: BLOOD SPECIMENOrdering Facility: [facility] Address: [address] [place] [address] Performed By: #### 2 276-4, HSTNT, 21235-8, 79174-2 ####[facility] LABCLIA [id number] [place] [address] [place] Iron/TIBC [Molar ratio] 15.4 % Normal 15.0-57.0 [facility] Comment on above: Order Comment: Speci men Type: BLOOD SPECIMENOrdering Facility: [facility] Address: [address] [place] [address] Performed By: #### 2 276-4, HSTNT, 14423-9, 08553-1 ####[facility] LABCLIA [id number] [place] [id number] [place] MYD88 L265P MUTATION ANALYSI Son 10-29-2024 MYD88 L265P MUTATION RESULT Normal [facility] Comment on above: Order Comment: Speci men Type: BLOOD SPECIMENOrdering Facility: [facility] Address: [place] [address] Result Comment: MYD8 8 L265P MUTATION ANALYSISLaboratory Accession Number: [id number] Type: Peripheral BloodResult:No variant detected.Interpretation:A MYD88 missense variant L265P (c.794T>C, p.Wqz246Exs) is notdetected. This result does not exclude the possibility of a lowvariant allele fraction (vaf) below the limit of detection of thisassay. This result does not completely exclude a diagnosis oflymphoplasmacytic lymphoma/Waldenstrom's macroglobulinemia as at leastrare cases have been reported to lack this variant. This result shouldbe correlated with clinical and pathologic findings.Methodology:DNA extracted from the specimen is interrogated for the presence orabsence of the L265P (c.794T>C, p.Zst878Pls; g.[id number]; [id number])variant (mutation) in MYD88 gene (NM_[id number]) using droplet digitalpolymerase chain reaction (PCR). Droplet digital PCR includespartitioning of DNA into droplets, droplet independent PCR,interrogation using allele specific hydrolysis probes, and analysis ofdroplets using Poisson distribution to calculate the copy number ofMYD88 L265P and wild-type MYD88. The reference genome used xvTLDp93/hg38.Limitations:This test is designed to detect the L265P variant in the MYD88 gene.Uncommon variants or single nucleotide polymorphisms may affectbinding of probes or primers and may rarely result in false negative,false positive, or indeterminate results. Other variants in MYD88 willnot be identified by this test. The lower limit of detection of thisassay is approximately 0.5% variant allele fraction (vaf) for cbgYCY84 L265P variant. Although vaf is provided for reference, thisvalue should be interpreted with caution as this test is intended forqualitative purposes and is not validated as a quantitative test. IrwIHK13 L265P result cannot be used on a standalone basis for diagnosisof lymphoplasmacytic lymphoma and needs to be considered in thecontext of clinical and morphologic presentation.References:1) Kairna VN, Ivan RM, Jerry R, et al. Oncogenically active HKP30jbponqtxd in human lymphoma. Nature 2011. 470(3541):115-9.2) Karen SL, Alisia RuizJ, DW, Lydia L, Curtis JR, Hsi ED: [id number] somatic mutation: its usefulness in the differential diagnosisof bone marrow involvement by B-cell lymphoproliferative disorders. AmJ Clin Pathol. 2013. 140(3):387-94.3) Alexandrea SP, Markus L, Gallegos G, et al. MYD88 L265P somatic mutation inWaldenstrom's macroglobulinemia. N Engl J Med. 2012. 367(7)826-33.4) Dragan RuizQ, Ana ANGUIANO, Harika LL, Saji K. Toll-like receptorsand cancer: MYD88 mutation and inflammation. Front Immunol. 2014 ;367(5):1-10.5) Becka X, Li W, Dwayne Q, et al. MYD88 L265P Mutation in LymphoidMalignancies. Cancer Res. 2018. 78(10):0264-10.Disclaimer:This test was developed and its performance characteristics determinedby [facility]'s Pathology and Laboratory Medicine Department. Ithas not been cleared or approved by the FDA. [facility] is regulated under CLIAas certified to perform high-complexity testing. This test is used forclinical purposes. It should not be regarded as investigational or forresearch.Interpretation performed by Rosa Phan, PhD, [facility] Performed By: #### M YD88 ####[facility] [id number] [place] [address] [place] NT-proBNP [facility] 10-29 Natriuretic peptide.B prohormone N-Terminal [Mass/Vol] 3363 pg/mL High <125 [facility] Comment on above: Order Comment: Speci men Type: BLOOD SPECIMENOrdering Facility: [facility] Address: [address] [place] [address] Performed By: #### 2 276-4, HSTNT, 94545-1, 62012-7 ####[facility] LABCLIA [id number] [place] [address] [place] RETICULOCYTE COUNTon 025 Reticulocytes (Bld) [#/Vol] 0.082 10*3/uL [facility] Retics #on 10-29-2024 Reticulocytes (Bld) [#/Vol] 0.29992 10*3/uL Normal 0.018-0.100 [facility] Comment on above: Order Comment: Speci men Type: BLOOD SPECIMENOrdering Facility: [facility] Address: [address] [place] [address] Performed By: #### 1 4196-0 ####[facility] [id number] [place] [address] [place] Reticulocytes (Bld) [#/Vol]o n 10-29-2024 Interpretation and review of laboratory results Abnormal [facility] Reticulocytes/100 RBC (Bld) 2.2 % High 0.4 - 2.0 % [facility] Reticulocytes/100 RBC (Bld) 2.2 % High 0.4-2.0 [facility] Comment on above: Order Comment: Speci men Type: BLOOD SPECIMENOrdering Facility: [facility] Address: [address] [place] [address] Performed By: #### 1 4196-0 ####[facility] [id number] [place] [address] [place] UA DIP, URINE (POC)on 2024 BILIRUBIN UA (POCT) Negative Negative [facility] CLARITY UA (POCT) Clear [facility] COLOR UA (POCT) Yellow [facility] GLUCOSE UA (POCT) Negative Negative mg/dL [facility] Hemoglobin Ql (U) Trace-intact Abnormal Negative [facility] Interpretation and review of laboratory results Abnormal [facility] KETONE UA (POCT) Negative Negative mg/dL [facility] LEUKOCYTES UA (POCT) Small Abnormal Negative [facility] NITRITE UA (POCT) Negative Negative [facility] PH UA (POCT) 6.0 4.5 - 8.0 [facility] Protein Ql (U) Negative Negative mg/dL [facility] SPECIFIC GRAVITY UA (POCT) 1.025 1.005 - 1.030 [facility] UROBILINOGEN UA (POCT) 1.0 Carmen l E.U./dL [facility] Location:[facility], [address] [place] [address], [place], [place], [id number] [place] [address] POINT OF CARE [facility] CNPNon 10-01-2024 CNPN Normal [facility] CNOVon 09-30-2024 CNOV Normal [facility] CNOVSPon 09-24-2024 CNOVSP Normal [facility] GANGLIOSIDE ANTIBODIESon ASIALO-GM1 ANTIBODIES, IGG/IGM 17 IV Normal 0-50 [facility] Comment on above: Order Comment: Speci men Type: BLOOD SPECIMENOrdering Facility: [facility] Address: [address] [place] [address] Performed By: #### M ASGPG, GANGAB ####[facility]IES[facility] [id number] [place] [address] GD1A ANTIBODIES, IGG/IGM 10 IV Normal 0-50 [facility] Comment on above: Order Comment: Speci men Type: BLOOD SPECIMENOrdering Facility: [facility] Address: [address] [place] [address] Performed By: #### M ASGPG, GANGAB ####[facility]IESCLIA [id number] [place] [address] GD1B ANTIBODIES, IGG/IGM 11 IV Normal 0-50 [facility] Comment on above: Order Comment: Speci men Type: BLOOD SPECIMENOrdering Facility: [facility] Address: [address] [place] [address] Performed By: #### M ASGPG, GANGAB ####[facility]IESCLIA [id number] [place] [address] GM1 ANTIBODIES, IGG/IGM 14 IV Normal 0-50 [facility] Comment on above: Order Comment: Speci men Type: BLOOD SPECIMENOrdering Facility: [facility] Address: [address] [place] [address] Performed By: #### M ASGPGMASTERGAB ####[facility]IESCLIA [id number] [place] [address] GM2 ANTIBODIES 7 IV Normal 0-50 [facility] Comment on above: Order Comment: Speci men Type: BLOOD SPECIMENOrdering Facility: [facility] Address: [address] [place] [address] Performed By: #### M ASGPG, GANGAB ####[facility]IESCLIA [id number] [place] [address] GQ1B ANTIBODIES, IGG/IGM 9 IV Normal 0-50 [facility] Comment on above: Order Comment: Speci men Type: BLOOD SPECIMENOrdering Facility: [facility] Address: [address] [place] [address] Result Comment: INTE RPRETIVE INFORMATION: Ganglioside (Asialo-GM1, GM1, GM2, GD1a,GD1b, and GQ1b) Antibodies, IgG/IgM 29 IV or less: Negative 30-50 IV: Equivocal 51-100 IV: Positive 101 IV or greater: Strong PositiveGanglioside antibodies are associated with diverse peripheralneuropathies. Elevated antibody levels to ganglioside-monosialicacid (GM1), and the neutral glycolipid, asialo GM1 are associatedwith motor or sensorimotor neuropathies, particularly multifocalmotor neuropathy. Anti-GM1 may occur as IgM (polyclonal ormonoclonal) or IgG antibodies. These antibodies may also be foundin patients with diverse connective tissue diseases as well asnormal individuals. GD1a antibodies are associated with differentvariants of Guillain-[place] syndrome (GBS) particularly acute motoraxonal neuropathy while GD1b antibodies are predominantly found insensory ataxic neuropathy syndrome. Anti-GQ1b antibodies are seenin more than 80 percent of patients with Johnson-Ron syndromeand may be elevated in GBS patients with ophthalmoplegia. Therole of isolated anti-GM2 antibodies is unknown. These tests bythemselves are not diagnostic and should be used in conjunctionwith other clinical parameters to confirm disease.This test was developed and its performance characteristicsdetermined by [facility]. It has not been cleared orapproved by the [place] Food and Drug Administration. This test wasperformed in a CLIA certified laboratory and is intended forclinical purposes.Performed By: [facility] [address] [place], [place] [address]Knulkxkxkw Director: Zac Ferro MD, PhDCLIA Number: [id number] Performed By: #### M ABBIE LUBIN ####[facility]ITAL[facility] [id number] [place] [address] MAG IGM AND SGPG IGMon 09-24 MAG ANTIBODY, IGM MARYAN <1000 Normal 0-999 [facility] Comment on above: Order Comment: Speci myaank Type: BLOOD SPECIMENOrdering Facility: [facility] Address: [address] [place] [address] Result Comment: INTE RPRETIVE INFORMATION: MAG Antibody, IgM ELISAAn elevated IgM antibody concentration greater than 999 TU againstmyelin-associated glycoprotein (MAG) suggests active demyelinationin peripheral neuropathy. A normal concentration (less than 999TU) generally rules out an anti-MAG antibody-associated peripheralneuropathy.TU=Titer UnitsThis test was developed and its performance characteristicsdetermined by [facility]. It has not been cleared orapproved by the [place] Food and Drug Administration. This test wasperformed in a CLIA certified laboratory and is intended forclinical purposes. Performed By: #### M ABBIE LUBIN ####[facility] [id number] [place] [address] SGPG ANTIBODY, IGM 0.11 IV Normal 0.00-0.99 [facility] Comment on above: Order Comment: Speci mayank Type: BLOOD SPECIMENOrdering Facility: [facility] Address: [address] [place] [address] Result Comment: INTE RPRETIVE INFORMATION: SGPG Antibody, IgMThe majority of tfprkqd-3-kqicwxaqpc paragloboside (SGPG)IgM-positivesera will show reactivity against MAG. Patients who are SGPG IgMpositive and MAG IgM negative may have multi-focal motor neuropathywith conduction block.This test was developed and its performance characteristicsdetermined by [facility]. It has not been cleared orapproved by the [place] Food and Drug Administration. This test wasperformed in a CLIA certified laboratory and is intended forclinical purposes.Performed By: [facility] [address] [place] [id number] Director: Zac Ferro MD, PhDCLIA Number: [id number] Performed By: #### M JAYLENE LUBINCandis ####[facility] [id number] [place] [address] SERUM VISCOSITYon 09-24-2024 VISCOSITY, SERUM 1.22 cP Normal <=1.50 [facility] Comment on above: Order Comment: Speci men Type: BLOOD SPECIMENOrdering Facility: [facility] Address: [address] [place] [address] Result Comment: INTE RPRETIVE INFORMATION: Viscosity, SerumIncreased viscosity is associated with disorders such asmonoclonal gammopathy, macroglobulinemia, and multiple myeloma.Significantly elevated viscosity (>3.0 cP) is associated withclinical symptoms of hyperviscosity syndrome.This test was developed and its performance characteristicsdetermined by [facility]. It has not been cleared orapproved by the [place] Food and Drug Administration. This test wasperformed in a CLIA certified laboratory and is intended forclinical purposes.Performed By: [facility] [place] [address]Zgqxzlvnel Director: Zac Ferro MD, PhDCLIA Number: [id number] Performed By: #### S JUSTIN ####[facility]ITALCLIA [id number] [place] [address] Transferrin receptor.soluble [Mass/Vol]on 09-24-2024 Transferrin receptor.soluble [Moles/Vol] 3.9 mg/L Normal 1.9-4.4 [facility] Comment on above: Order Comment: Speci men Type: BLOOD SPECIMENOrdering Facility: [facility] Address: [address] [place] [address] Performed By: #### 3 0248-9 ####[facility] LABCLIA [id number] [place] [address] [place] Amylase SerPl-cCncon 07-29-2 025 Amylase [Catalytic activity/Vol] 76 U/L Normal 30-104 [facility] Comment on above: Order Comment: Speci men Type: BLOOD SPECIMENOrdering Facility: [facility] Address: [address] [place] [address] Performed By: #### 1 798-8, 3040-3, 18053-2 ####[facility] LABCLIA [id number] [place] [address] [place] CBC W Auto Differential pane l (Bld)on 09-21-2024 Basophils (Bld) [#/Vol] 0.09 10*3/uL [facility] Basophils/100 WBC (Bld) 1.2 % [facility] Differential cell count method Nom (Bld) Auto [facility] Eosinophils (Bld) [#/Vol] 0.74 10*3/uL High [facility] Eosinophils/100 WBC (Bld) 9.7 % [facility] Erythrocyte distribution width (RBC) [Ratio] 11.9 % 11.5 - 15.0 % [facility] Hematocrit (Bld) [Volume fraction] 38.2 % 36.0 - 46.0 % [facility] Hemoglobin (Bld) [Mass/Vol] 11.3 g/dL Low 11.5 - 15.5 g/dL [facility] Immature granulocytes (Bld) [#/Vol] [facility] Immature granulocytes/100 WBC (Bld) 0.1 % [facility] Interpretation and review of laboratory results Abnormal [facility] Lymphocytes (Bld) [#/Vol] 0.86 10*3/uL Low [facility] Lymphocytes/100 WBC (Bld) 11.3 % [facility] MCH (RBC) [Entitic mass] 28.9 pg 26.0 - 34.0 pg [facility] MCHC (RBC) [Mass/Vol] 29.6 g/dL Low 30.5 - 36.0 g/dL [facility] MCV (RBC) [Entitic vol] 97.7 fL 80.0 - 100.0 fL [facility] Monocytes (Bld) [#/Vol] 0.87 10*3/uL High [facility] Monocytes/100 WBC (Bld) 11.5 % [facility] Neutrophils (Bld) [#/Vol] 5.02 10*3/uL [facility] Neutrophils/100 WBC (Bld) 66.2 % [facility] Nucleated RBC (Bld) [#/Vol] NINF [facility] Nucleated RBC/100 WBC (Bld) [Ratio] 0 % /100 WBC [facility] Platelet mean volume (Bld) [Entitic vol] 11 fL 9.0 - 12.7 fL [facility] Platelets (Bld) [#/Vol] 291 10*3/uL [facility] RBC (Bld) [#/Vol] 3.91 10*6/uL 3.90 - 5.2 0 m/uL [facility] WBC (Bld) [#/Vol] 7.59 10*3/uL [facility] Basophils (Bld) [#/Vol] 0.09 10*3/uL Normal <0.11 [facility] Comment on above: Order Comment: Speci men Type: BLOOD SPECIMENOrdering Facility: [facility] Address: [address] [place] [address] Performed By: #### 5 7021-8 ####[facility] LABIA [id number] [address] [place] Basophils/100 WBC (Bld) 1.2 % Normal [facility] Comment on above: Order Comment: Speci men Type: BLOOD SPECIMENOrdering Facility: [facility] Address: [address] [place] [address] Performed By: #### 5 7021-8 ####[facility] LABCLIA [id number] [place] [address] [place] Differential cell count method Nom (Bld) Auto Normal [facility] Comment on above: Order Comment: Speci men Type: BLOOD SPECIMENOrdering Facility: [facility] Address: [address] [place] [address] Performed By: #### 5 7021-8 ####[facility] LABCLIA [id number] [place] [address] [place] Eosinophils (Bld) [#/Vol] 0.74 10*3/uL High <0.46 [facility] Comment on above: Order Comment: Speci men Type: BLOOD SPECIMENOrdering Facility: [facility] Address: [address] [place] [address] Performed By: #### 5 7021-8 ####[facility] LABCLIA [id number] [place] [address] [place] Eosinophils/100 WBC (Bld) 9.7 % Normal [facility] Comment on above: Order Comment: Speci men Type: BLOOD SPECIMENOrdering Facility: [facility] Address: [address] [place] [address] Performed By: #### 5 7021-8 ####[facility] LABCLIA [id number] [place] [address] [place] Erythrocyte distribution width (RBC) [Ratio] 11.9 % Normal 11.5-15.0 [facility] Comment on above: Order Comment: Speci men Type: BLOOD SPECIMENOrdering Facility: [facility] Address: [address] [place] [address] Performed By: #### 5 7021-8 ####[facility] LABCLIA [id number] [address] [place] Hematocrit (Bld) [Volume fraction] 38.2 % Normal 36.0-46.0 [facility] Comment on above: Order Comment: Speci men Type: BLOOD SPECIMENOrdering Facility: [facility] Address: [address] [place] [address] Performed By: #### 5 7021-8 ####[facility] LABCLIA [id number] [place] [address] [place] Hemoglobin (Bld) [Mass/Vol] 11.3 g/dL Low 11.5-15.5 [facility] Comment on above: Order Comment: Speci men Type: BLOOD SPECIMENOrdering Facility: [facility] Address: [address] [place] [address] Performed By: #### 5 7021-8 ####[facility] LABCLIA [id number] [address], [place] [address] [place] Immature granulocytes (Bld) [#/Vol] 10*3/uL Normal <0.10 [facility] Comment on above: Order Comment: Speci men Type: BLOOD SPECIMENOrdering Facility: [facility] Address: [address] [place] [address] Performed By: #### 5 7021-8 ####[facility] LABCLIA [id number] [address], [place] [address] [place] Immature granulocytes/100 WBC (Bld) 0.1 % Normal [facility] Comment on above: Order Comment: Speci men Type: BLOOD SPECIMENOrdering Facility: [facility] Address: [address] [place] [address] Performed By: #### 5 7021-8 ####[facility] LABCLIA [id number] [address], [place] [address] [place] Lymphocytes (Bld) [#/Vol] 0.86 10*3/uL Low 1.00-4.00 [facility] Comment on above: Order Comment: Speci men Type: BLOOD SPECIMENOrdering Facility: [facility] Address: [address] [place] [address] Performed By: #### 5 7021-8 ####[facility] LABCLIA [id number] [address], [facility] [place] Lymphocytes/100 WBC (Bld) 11.3 % Normal [facility] Comment on above: Order Comment: Speci men Type: BLOOD SPECIMENOrdering Facility: [facility] Address: [address] [place] [address] Performed By: #### 5 7021-8 ####[facility] LABCLIA [id number] [place] [id number] [place] MCH (RBC) [Entitic mass] 28.9 pg Normal 26.0-34.0 [facility] Comment on above: Order Comment: Speci men Type: BLOOD SPECIMENOrdering Facility: [facility] Address: [address] [place] [address] Performed By: #### 5 7021-8 ####[facility] LABIA [id number] [place] [address] [place] MCHC (RBC) [Mass/Vol] 29.6 g/dL Low 30.5-36.0 [facility] Comment on above: Order Comment: Speci men Type: BLOOD SPECIMENOrdering Facility: [facility] Address: [address] [place] [address] Performed By: #### 5 7021-8 ####[facility] LABCLIA [id number] [place] [address] [place] MCV (RBC) [Entitic vol] 97.7 fL Normal 80.0-100.0 [facility] Comment on above: Order Comment: Speci men Type: BLOOD SPECIMENOrdering Facility: [facility] Address: [address] [place] [address] Performed By: #### 5 7021-8 ####[facility] LABIA [id number] [place] [address] [place] Monocytes (Bld) [#/Vol] 0.87 10*3/uL High <0.87 [facility] Comment on above: Order Comment: Speci men Type: BLOOD SPECIMENOrdering Facility: [facility] Address: [address] [place] [address] Performed By: #### 5 7021-8 ####[facility] LABCLIA [id number] [place] [address] [place] Monocytes/100 WBC (Bld) 11.5 % Normal [facility] Comment on above: Order Comment: Speci men Type: BLOOD SPECIMENOrdering Facility: [facility] Address: [address] [place] [address] Performed By: #### 5 7021-8 ####[facility] LABCLIA [id number] [place] [address] [place] Neutrophils (Bld) [#/Vol] 5.02 10*3/uL Normal 1.45-7.50 [facility] Comment on above: Order Comment: Speci men Type: BLOOD SPECIMENOrdering Facility: [facility] Address: [address] [place] [address] Performed By: #### 5 7021-8 ####[facility] LABCLIA [id number] [place] [address] [place] Neutrophils/100 WBC (Bld) 66.2 % Normal [facility] Comment on above: Order Comment: Speci men Type: BLOOD SPECIMENOrdering Facility: [facility] Address: [address] [place] [place] [address] Performed By: #### 5 7021-8 ####[facility] LABCLIA [id number] [place] [address] [place] Nucleated RBC (Bld) [#/Vol] 10*3/uL Normal <0.01 [facility] Comment on above: Order Comment: Speci men Type: BLOOD SPECIMENOrdering Facility: [facility] Address: [address] [place] [address] Performed By: #### 5 7021-8 ####[facility] LABCLIA [id number] [place] [address] [place] Nucleated RBC/100 WBC (Bld) [Ratio] 0.0 /100 WBC Normal [facility] Comment on above: Order Comment: Speci men Type: BLOOD SPECIMENOrdering Facility: [facility] Address: [address] [place] [address] Performed By: #### 5 7021-8 ####[facility] LABCLIA [id number] [address] [place] [address] [place] Platelet mean volume (Bld) [Entitic vol] 11.0 fL Normal 9.0-12.7 [facility] Comment on above: Order Comment: Speci men Type: BLOOD SPECIMENOrdering Facility: [facility] Address: [address] [place] [address] Performed By: #### 5 7021-8 ####[facility] LABCLIA [id number] [address], [facility] [place] Platelets (Bld) [#/Vol] 291 10*3/uL Normal 150-400 [facility] Comment on above: Order Comment: Speci men Type: BLOOD SPECIMENOrdering Facility: [facility] Address: [address] [place] [address] Performed By: #### 5 7021-8 ####[facility] LABCLIA [id number] [address], [place] [address] [place] RBC (Bld) [#/Vol] 3.91 10*6/uL Normal 3.90-5.20 [facility] Comment on above: Order Comment: Speci men Type: BLOOD SPECIMENOrdering Facility: [facility] Address: [address] [place] [address] Performed By: #### 5 7021-8 ####[facility] LABIA [id number] [address], [place] [address] [place] WBC (Bld) [#/Vol] 7.59 10*3/uL Normal 3.70-11.00 [facility] Comment on above: Order Comment: Speci men Type: BLOOD SPECIMENOrdering Facility: [facility] Address: [address] [place] [address] Performed By: #### 5 7021-8 ####[facility] LABCLIA [id number] [address] [place] [address] [place] CNOVon 09-21-2024 CNOV Normal [facility] CNPNon 09-21-2024 CNPN Normal [facility] Comprehensive metabolic 2000 panelon 09-21-2024 Albumin [Mass/Vol] 3.9 g/dL Normal 3.9-4.9 [facility] Comment on above: Order Comment: Speci men Type: BLOOD SPECIMENOrdering Facility: [facility] Address: [address] [place] [address] Performed By: #### 1 798-8, 3040-3, 82236-3 ####[facility] LABCLIA [id number] [address] [address] [place] ALP [Catalytic activity/Vol] 104 U/L Normal 34-123 [facility] Comment on above: Order Comment: Speci men Type: BLOOD SPECIMENOrdering Facility: [facility] Address: [address] [place] [address] Performed By: #### 1 798-8, 3040-3, 87935-2 ####[facility] LABCLIA [id number] [place] [id number] [place] ALT [Catalytic activity/Vol] 9 U/L Normal 7-38 [facility] Comment on above: Order Comment: Speci men Type: BLOOD SPECIMENOrdering Facility: [facility] Address: [address] [place] [address] Performed By: #### 1 798-8, 3040-3, 25815-4 ####[facility] LABCLIA [id number] [address] [address] [place] Anion gap [Moles/Vol] 11 mmol/L Normal 8-15 [facility] Comment on above: Order Comment: Speci men Type: BLOOD SPECIMENOrdering Facility: [facility] Address: [address] [place] [address] Performed By: #### 1 798-8, 3040-3, 56934-5 ####[facility] LABCLIA [id number] [address] [address] [place] AST [Catalytic activity/Vol] 18 U/L Normal 13-35 [facility] Comment on above: Order Comment: Speci men Type: BLOOD SPECIMENOrdering Facility: [facility] Address: [address] [place] [address] Performed By: #### 1 798-8, 3040-3, 22955-4 ####[facility] LABCLIA [id number] [place] [address] [place] Bilirubin [Mass/Vol] 0.4 mg/dL Normal 0.2-1.3 [facility] Comment on above: Order Comment: Speci men Type: BLOOD SPECIMENOrdering Facility: [facility] Address: [address] [place] [address] Performed By: #### 1 798-8, 3040-3, 59478-8 ####[facility] LABCLIA [id number] [place] [address] [place] Calcium [Mass/Vol] 9.7 mg/dL Normal 8.5-10.2 [facility] Comment on above: Order Comment: Speci men Type: BLOOD SPECIMENOrdering Facility: [facility] Address: [address] [place] [address] Performed By: #### 1 798-8, 3040-3, 86963-8 ####[facility] LABCLIA [id number] [place] [address] [place] Chloride [Moles/Vol] 103 mmol/L Normal 98-107 [facility] Comment on above: Order Comment: Speci men Type: BLOOD SPECIMENOrdering Facility: [facility] Address: [address] [place] [address] Performed By: #### 1 798-8, 3040-3, 21781-8 ####[facility] LABCLIA [id number] [address] [address] [place] CO2 [Moles/Vol] 27 mmol/L Normal 22-30 [facility] Comment on above: Order Comment: Speci men Type: BLOOD SPECIMENOrdering Facility: [facility] Address: [address] [place] [address] Performed By: #### 1 798-8, 3039-3, ####[facility] LABCLIA [id number] [address] [address] [place] Creatinine [Mass/Vol] 1.10 mg/dL High 0.58-0.96 [facility] Comment on above: Order Comment: Speci men Type: BLOOD SPECIMENOrdering Facility: [facility] Address: [address] [place] [address] Performed By: #### 1 798-8, 3, ####[facility] LABIA [id number] [place] [address] [place] eGFRcr SerPlBld CKD-EPI 2020 56 mL/min/1.73m??? Low >=60 [facility] Comment on above: Order Comment: Speci men Type: BLOOD SPECIMENOrdering Facility: [facility] Address: [address] [place] [address] Result Comment: Tamiko mated Glomerular Filtration Rate (eGFR) is calculated using the 2020 CKD-EPI creatinine equation. This equation utilizes serum creatinine, sex, and age as parameters. The creatinine assay has traceable calibration to isotope dilution-mass spectrometry. Refer to KDIGO guidelines for clinical interpretation. In patients with unstable renal function, e.g. those with acute kidney injury, the eGFR may not accurately reflect actual GFR. Performed By: #### 1 798-8, 3, ####[facility] LABIA [id number] [address] [address] [place] Glucose [Mass/Vol] 63 mg/dL Low 74-99 [facility] Comment on above: Order Comment: Speci men Type: BLOOD SPECIMENOrdering Facility: [facility] Address: [address] [place] [address] Result Comment: The [place] [employer] (ADA) provides guidance for cutoff values for fasting glucose and random glucose. The ADA defines fasting as no caloric intake for at least 8 hours. Fasting plasma glucose results between 100 to 125 mg/dL indicate increased risk for diabetes (prediabetes).Fasting plasma glucose results greater than or equal to 126 mg/dL meet the criteria for diagnosis of diabetes. In the absence of unequivocal hyperglycemia, results should be confirmed by repeat testing. In a patient with classic symptoms of hyperglycemia or hyperglycemic crisis, random plasma glucose results greater than or equal to 200 mg/dL meet the criteria for diagnosis of diabetes.Reference: Standards of Medical Care in Diabetes 2016, [place] [employer]. Diabetes Care. 2016.39(Suppl 1). Performed By: #### 1 798-8, 3039-3, 66432-8 ####[facility] LABIA [id number] [place] [address] [place] Potassium [Moles/Vol] 4.3 mmol/L Normal 3.7-5.1 [facility] Comment on above: Order Comment: Speci men Type: BLOOD SPECIMENOrdering Facility: [facility] Address: [address] [place] [address] Performed By: #### 1 798-8, 3, ####[facility] LABIA [id number] [place] [address] [place] Protein [Mass/Vol] 8.2 g/dL High 6.3-8.0 [facility] Comment on above: Order Comment: Speci men Type: BLOOD SPECIMENOrdering Facility: [facility] Address: [address] [place] [address] Performed By: #### 1 798-8, 3, ####[facility] LABIA [id number] [place] [address] [place] Sodium [Moles/Vol] 141 mmol/L Normal 136-144 [facility] Comment on above: Order Comment: Speci men Type: BLOOD SPECIMENOrdering Facility: [facility] Address: [address] [place] [address] Performed By: #### 1 798-8, 3040-3, 76104-8 ####[facility] LABCLIA [id number] [place] [address] [place] Urea nitrogen [Mass/Vol] 16 mg/dL Normal 7-21 [facility] Comment on above: Order Comment: Speci men Type: BLOOD SPECIMENOrdering Facility: [facility] Address: [address] [place] [address] Performed By: #### 1 798-8, 3040-3, 79427-9 ####[facility] LABCLIA [id number] [place] [address] [place] Lipase SerPl-cCncon 09-22-19 25 Lipase [Catalytic activity/Vol] 37 U/L Normal 16-61 [facility] Comment on above: Order Comment: Speci men Type: BLOOD SPECIMENOrdering Facility: [facility] Address: [address] [place] [address] Performed By: #### 1 798-8, 3040-3, 20058-6 ####[facility] LABCLIA [id number] [place] [address] [place] Hemoccult Stl Ql IAon 2024 Lower GI hemoglobin IA Ql (Stl) Negative Normal Negative [facility] Comment on above: Order Comment: Speci men Type: STOOL SPECIMENOrdering Facility: [facility] Address: [address] [place] [address] Performed By: #### 2 9771-3 ####[facility] LABCLIA [id number] [place] [address] [place] CNPTOUTREACHon 09-14-2024 CNPTOUTREACH Normal [facility] CNPNon 09-08-2024 CNPN Normal [facility] CNOVon 09-07-2024 CNOV Normal [facility] CNPNon 09-07-2024 CNPN Normal [facility] CNPNon 08-30-2024 CNPN Normal [facility] CBC W Auto Differential pane l (Bld)on 08-24-2024 Basophils (Bld) [#/Vol] 0.06 10*3/uL [facility] Basophils/100 WBC (Bld) 0.8 % [facility] Differential cell count method Nom (Bld) Auto [facility] Eosinophils (Bld) [#/Vol] 0.74 10*3/uL High [facility] Eosinophils/100 WBC (Bld) 9.9 % [facility] Erythrocyte distribution width (RBC) [Ratio] 12.1 % 11.5 - 15.0 % [facility] Hematocrit (Bld) [Volume fraction] 36.7 % 36.0 - 46.0 % [facility] Hemoglobin (Bld) [Mass/Vol] 11.3 g/dL Low 11.5 - 15.5 g/dL [facility] Immature granulocytes (Bld) [#/Vol] [facility] Immature granulocytes/100 WBC (Bld) 0.3 % [facility] Interpretation and review of laboratory results Abnormal [facility] Lymphocytes (Bld) [#/Vol] 0.95 10*3/uL Low [facility] Lymphocytes/100 WBC (Bld) 12.6 % [facility] MCH (RBC) [Entitic mass] 29.7 pg 26.0 - 34.0 pg [facility] MCHC (RBC) [Mass/Vol] 30.8 g/dL 30.5 - 36.0 g/dL [facility] MCV (RBC) [Entitic vol] 96.3 fL 80.0 - 100.0 fL [facility] Monocytes (Bld) [#/Vol] 0.82 10*3/uL [facility] Monocytes/100 WBC (Bld) 10.9 % [facility] Neutrophils (Bld) [#/Vol] 4.92 10*3/uL [facility] Neutrophils/100 WBC (Bld) 65.5 % [facility] Nucleated RBC (Bld) [#/Vol] [facility] Nucleated RBC/100 WBC (Bld) [Ratio] 0 % /100 WBC [facility] Platelet mean volume (Bld) [Entitic vol] 10.1 fL 9.0 - 12.7 fL [facility] Platelets (Bld) [#/Vol] 268 10*3/uL [facility] RBC (Bld) [#/Vol] 3.81 10*6/uL Low 3.90 - 5.2 0 m/uL [facility] WBC (Bld) [#/Vol] 7.51 10*3/uL [facility] Basophils (Bld) [#/Vol] 0.06 10*3/uL Normal <0.11 [facility] Comment on above: Order Comment: Speci men Type: BLOOD SPECIMENOrdering Facility: [facility] Address: [address] [place] [address] Performed By: #### 1 4196-0, 71651-8 ####[facility]PITALPRETTYNunu [id number] [place] [address] [place] Basophils/100 WBC (Bld) 0.8 % Normal [facility] Comment on above: Order Comment: Speci men Type: BLOOD SPECIMENOrdering Facility: [facility] Address: [address] [place] [address] Performed By: #### 1 4196-0, 67710-5 ####[facility] NORTHNunu [id number] [place] [address] [place] Differential cell count method Nom (Bld) Auto Normal [facility] Comment on above: Order Comment: Speci men Type: BLOOD SPECIMENOrdering Facility: [facility] Address: [address] [place] [address] Performed By: #### 1 4196-0, 74223-7 ####[facility]THA [id number] [place] [address] [place] Eosinophils (Bld) [#/Vol] 0.74 10*3/uL High <0.46 [facility] Comment on above: Order Comment: Speci men Type: BLOOD SPECIMENOrdering Facility: [facility] Address: [address] [place] [address] Performed By: #### 1 4196-0, 70634-9 ####[facility] MILLWNCLIA [id number] [place] [address] [place] Eosinophils/100 WBC (Bld) 9.9 % Normal [facility] Comment on above: Order Comment: Speci men Type: BLOOD SPECIMENOrdering Facility: [facility] Address: [address] [place] [address] Performed By: #### 1 4196-0, 55340-3 ####[facility] HOSPITALEDWINAA [id number] [place] [address] [place] Erythrocyte distribution width (RBC) [Ratio] 12.1 % Normal 11.5-15.0 [facility] Comment on above: Order Comment: Speci men Type: BLOOD SPECIMENOrdering Facility: [facility] Address: [address] [place] [address] Performed By: #### 1 4196-0, 93755-5 ####[facility] NORTHNunu [id number] [place] [address] [place] Hematocrit (Bld) [Volume fraction] 36.7 % Normal 36.0-46.0 [facility] Comment on above: Order Comment: Speci men Type: BLOOD SPECIMENOrdering Facility: [facility] Address: [address] [place] [address] Performed By: #### 1 4196-0, 25112-6 ####[facility] HOSPITALPRETTYLIA [id number] [place] [address] [place] Hemoglobin (Bld) [Mass/Vol] 11.3 g/dL Low 11.5-15.5 [facility] Comment on above: Order Comment: Speci men Type: BLOOD SPECIMENOrdering Facility: [facility] Address: [address] [place] [address] Performed By: #### 1 4196-0, 94690-6 ####[facility] MEMORIALLIA [id number] [place] [address] [place] Immature granulocytes (Bld) [#/Vol] 10*3/uL Normal <0.10 [facility] Comment on above: Order Comment: Speci men Type: BLOOD SPECIMENOrdering Facility: [facility] Address: [address] [place] [address] Performed By: #### 1 4196-0, 50297-7 ####[facility] MAXWELLWNCLIA [id number] [place] [address] [place] Immature granulocytes/100 WBC (Bld) 0.3 % Normal [facility] Comment on above: Order Comment: Speci men Type: BLOOD SPECIMENOrdering Facility: [facility] Address: [address] [place] [address] Performed By: #### 1 4196-0, 58203-3 ####[facility]OSPITALEDWINAA [id number] [place] [address] [place] Lymphocytes (Bld) [#/Vol] 0.95 10*3/uL Low 1.00-4.00 [facility] Comment on above: Order Comment: Speci men Type: BLOOD SPECIMENOrdering Facility: [facility] Address: [address] [place] [address] Performed By: #### 1 4196-0, 78020-0 ####[facility] HOSPITALWPRETTYLIA [id number] [place] [address] [place] Lymphocytes/100 WBC (Bld) 12.6 % Normal [facility] Comment on above: Order Comment: Speci men Type: BLOOD SPECIMENOrdering Facility: [facility] Address: [address] [place] [address] Performed By: #### 1 4196-0, 04370-1 ####[facility] HOSPITALNCLIA [id number] [place] [address] [place] MCH (RBC) [Entitic mass] 29.7 pg Normal 26.0-34.0 [facility] Comment on above: Order Comment: Speci men Type: BLOOD SPECIMENOrdering Facility: [facility] Address: [address] [place] [address] Performed By: #### 1 4196-0, 41759-3 ####[facility] HOSPITALREJI [id number] [place] [address] [place] MCHC (RBC) [Mass/Vol] 30.8 g/dL Normal 30.5-36.0 [facility] Comment on above: Order Comment: Speci men Type: BLOOD SPECIMENOrdering Facility: [facility] Address: [address] [place] [address] Performed By: #### 1 4196-0, 34949-1 ####[facility]OSPITALPRETTYNunu [id number] [address] [place] MCV (RBC) [Entitic vol] 96.3 fL Normal 80.0-100.0 [facility] Comment on above: Order Comment: Speci men Type: BLOOD SPECIMENOrdering Facility: [facility] Address: [address] [place] [address] Performed By: #### 1 4196-0, 10147-4 ####[facility]A [id number] [place] [address] [place] Monocytes (Bld) [#/Vol] 0.82 10*3/uL Normal <0.87 [facility] Comment on above: Order Comment: Speci men Type: BLOOD SPECIMENOrdering Facility: [facility] Address: [address] [place] [address] Performed By: #### 1 4196-0, 93480-2 ####[facility] HOSPITALNCLI [id number] [address] [place] Monocytes/100 WBC (Bld) 10.9 % Normal [facility] Comment on above: Order Comment: Speci men Type: BLOOD SPECIMENOrdering Facility: [facility] Address: [address] [place] [address] Performed By: #### 1 4196-0, 73974-6 ####[facility] [id number] [place] [address] [place] Neutrophils (Bld) [#/Vol] 4.92 10*3/uL Normal 1.45-7.50 [facility] Comment on above: Order Comment: Speci men Type: BLOOD SPECIMENOrdering Facility: [facility] Address: [address] [place] [address] Performed By: #### 1 4196-0, 65015-7 ####[facility] [id number] [place] [address] [place] Neutrophils/100 WBC (Bld) 65.5 % Normal [facility] Comment on above: Order Comment: Speci men Type: BLOOD SPECIMENOrdering Facility: [facility] Address: [address] [place] [address] Performed By: #### 1 4196-0, 04590-2 ####[facility] [id number] [place] [address] [place] Nucleated RBC (Bld) [#/Vol] 10*3/uL Normal <0.01 [facility] Comment on above: Order Comment: Speci men Type: BLOOD SPECIMENOrdering Facility: [facility] Address: [address] [place] [address] Performed By: #### 1 4196-0, 42654-1 ####[facility] [id number] [place] [address] [place] Nucleated RBC/100 WBC (Bld) [Ratio] 0.0 /100 WBC Normal [facility] Comment on above: Order Comment: Speci men Type: BLOOD SPECIMENOrdering Facility: [facility] Address: [address] [place] [address] Performed By: #### 1 4196-0, 73347-7 ####[facility] ANDREW SHARIFNCMINAA [id number] [place] [address] [place] Platelet mean volume (Bld) [Entitic vol] 10.1 fL Normal 9.0-12.7 [facility] Comment on above: Order Comment: Speci men Type: BLOOD SPECIMENOrdering Facility: [facility] Address: [address] [place] [address] Performed By: #### 1 4196-0, 60239-0 ####[facility] HOSPITALREJI [id number] [place] [address] [place] Platelets (Bld) [#/Vol] 268 10*3/uL Normal 150-400 [facility] Comment on above: Order Comment: Speci men Type: BLOOD SPECIMENOrdering Facility: [facility] Address: [address] [place] [address] Performed By: #### 1 4196-0, 66430-3 ####[facility] MAXWELLIOLANCMINAA [id number] [place] [address] [place] RBC (Bld) [#/Vol] 3.81 10*6/uL Low 3.90-5.20 [facility] Comment on above: Order Comment: Speci men Type: BLOOD SPECIMENOrdering Facility: [facility] Address: [address] [place] [address] Performed By: #### 1 4196-0, 74887-7 ####[facility] HOSPITALNCMINAA [id number] [place] [address] [place] WBC (Bld) [#/Vol] 7.51 10*3/uL Normal 3.70-11.00 [facility] Comment on above: Order Comment: Speci men Type: BLOOD SPECIMENOrdering Facility: [facility] Address: [address] [place] [address] Performed By: #### 1 4196-0, 73960-5 ####[facility]W ARREOLAIOLAPRETTYALTA VIEW [facility] [id number] [place] [address] [place] CNOVSPon 08-24-2024 CNOVSP Normal [facility] TONIE DIRECTon 08-24-2024 DAGT, POLYSPECIFIC AHG Negative Normal [facility] Comment on above: Order Comment: Speci men Type: BLOOD SPECIMENOrdering Facility: [facility] Address: [address] [place] [address] Performed By: #### D AGT ####[facility] BLOOD BANKCLIA [id number] [place] [address] [place] BLOODon 08-24-2024 Copper [Mass/Vol] 134 ug/dL Normal 80-155 [facility] Comment on above: Order Comment: Speci men Type: BLOOD SPECIMENOrdering Facility: [facility] Address: [address] [place] [address] Result Comment: This test was developed, and its performance characteristics determined by the [facility] Department of Pathology and Laboratory Medicine. It has not been cleared or approved by the FDA. The [facility] Department of Pathology and Laboratory Medicine is regulated under CLIA as qualified to perform high-complexity testing. This test is used for clinical purposes. It should not be regarded as investigational or for research. Performed By: #### C OPPER, 5763-8 ####[facility] [facility] LABCLIA [id number] [place] [address] [place] Direct antiglobulin test.janis y specific reagent Ql (RBC)Ordered By: Kolby Nam on 08-24-2024 DAGT, Polyspecific AHG Negative [facility] FOLATE, SERUMon 08-24-2024 Folate [Mass/Vol] 4.9 ng/mL 4.7 - PINF ng/mL [facility] Folate SerPl-mCncon 08-25-19 25 Folate [Mass/Vol] 4.9 ng/mL Normal >4.7 [facility] Comment on above: Order Comment: Speci men Type: BLOOD SPECIMENOrdering Facility: [facility] Address: [address] [place] [address] Performed By: #### 2 132-9, 2885-2, 2284-8, 4542-7 ####[facility] LABCLIA [id number] [address] [address] [place] HAPTOGLOBINon 08-24-2024 Haptoglobin [Mass/Vol] 252 mg/dL High 31 - 238 mg/dL [facility] Haptoglob SerPl-mCncon 08-24 Haptoglobin [Mass/Vol] 252 mg/dL High 31-238 Cl [facility] Comment on above: Order Comment: Speci men Type: BLOOD SPECIMENOrdering Facility: [facility] Address: [address] [place] [address] Performed By: #### 2 132-9, 2885-2, 2284-8, 4542-7 ####[facility] LABCLIA [id number] [address] [address] [place] Haptoglobin [Mass/Vol]on Interpretation and review of laboratory results Abnormal [facility] IMMUNOFIXATION SCREEN, SERUM on 08-24-2024 INTERPRETATION (MPA) Atypical restricted bands are present in the IgM and lambda regions. Consistent with IgM lambda monoclonal gammopathy. Normal [facility] Comment on above: Order Comment: Speci men Type: BLOOD SPECIMENOrdering Facility: [facility] Address: [address] [place] [address] Performed By: #### I FES ####[facility] LABCLIA [id number] [address] [address] [place] MPA RESULT M protein is present. Abnormal No M protein is identified. [facility] Comment on above: Order Comment: Speci men Type: BLOOD SPECIMENOrdering Facility: [facility] Address: [address] [place], [place] [address] Performed By: #### I [facility] ####[facility] LABCLIA [id number] [place] [address] [place] STAFF REVIEW (MPA) Reviewed by Terri Cobb M.D., Ph.D Normal [facility] Comment on above: Order Comment: Speci men Type: BLOOD SPECIMENOrdering Facility: [facility] Address: [address] [place] [address] Performed By: #### I [facility] ####[facility] LABCLIA [id number] [place] [id number] [place] IMMUNOGLOBULINS,IGG,IGA,IGMo n 08-24-2024 IgA [Mass/Vol] 399 mg/dL Normal 70-400 [facility] Comment on above: Order Comment: Speci men Type: BLOOD SPECIMENOrdering Facility: [facility] Address: [address] [place] [address] Performed By: #### S ERIMM ####[facility] LABIA [id number] [place] [id number] [place] IgG [Mass/Vol] 2074 mg/dL High 700-1600 [facility] Comment on above: Order Comment: Speci men Type: BLOOD SPECIMENOrdering Facility: [facility] Address: [address] [place] [address] Performed By: #### S ERIMM ####[facility] LABCLIA [id number] [address] [place] [address] [place] IgM [Mass/Vol] 145 mg/dL Normal 40-230 [facility] Comment on above: Order Comment: Speci men Type: BLOOD SPECIMENOrdering Facility: [facility] Address: [address] [place] [address] Performed By: #### S ERIMM ####[facility] LABCLIA [id number] [address] [address] [place] KAPPA/SANDRA,FREE,SERon 2024 Immunoglobulin light chains.kappa.free (S) [Mass/Vol] 59.8 mg/L High 3.3-19.4 [facility] Comment on above: Order Comment: Speci men Type: BLOOD SPECIMENOrdering Facility: [facility] Address: [address] [place] [address] Result Comment: Rare ly, increased serum free light chains levels may not be detected or accurately quantified due to prozone phenomenon or in high viscosity samples using this immunoturbidimetric assay. Correlation with other laboratory results and clinical findings is recommended.The [place] Free Light Chain was performed using the Binding Site Optilite immunoturbidimetric method. Result obtained with different assay methods or kits cannot be used interchangeably. Performed By: #### K LFRS ####[facility] LABCLIA [id number] [place] [address] [place] Immunoglobulin light chains.kappa/Immunoglo bulin light chains.lambda (S) [Mass ratio] 1.28 Normal 0.26-1.65 [facility] Comment on above: Order Comment: Speci mayank Type: BLOOD SPECIMENOrdering Facility: [facility] Address: [address] [place] [address] Performed By: #### K LFRS ####[facility] LABCLIA [id number] [place] [address] [place] Immunoglobulin light chains.lambda.free [Mass/Vol] 46.8 mg/L High 5.7-26.3 [facility] Comment on above: Order Comment: Speci men Type: BLOOD SPECIMENOrdering Facility: [facility] Address: [address] [place] [address] Result Comment: Rare ly, increased serum free light chains levels may not be detected or accurately quantified due to prozone phenomenon or in high viscosity samples using this immunoturbidimetric assay. Correlation with other laboratory results and clinical findings is recommended.The [place] Free Light Chain was performed using the Binding Site Optilite immunoturbidimetric method. Result obtained with different assay methods or kits cannot be used interchangeably. Performed By: #### K LFRS ####[facility] LABCLIA [id number] [place] [address] [place] LACTATE DEHYDROGENASEOrdered By: Alona Agarwal on 08-24-2024 LDH [Catalytic activity/Vol] 167 U/L 135 - 214 U/L [facility] LDH SerPl-cCncon 08-24-2024 LDH [Catalytic activity/Vol] 167 U/L Normal 135-214 [facility] Comment on above: Order Comment: Speci men Type: BLOOD SPECIMENOrdering Facility: [facility] Address: [address] [place] [address] Performed By: #### 2 532-0 ####[facility] [id number] [address] [place] LDH [Catalytic activity/Vol] Ordered By: Alona Agarwal on 08-24-2024 Interpretation and review of laboratory results Normal [facility] Methylmalonate SerPl-sCncon 08-24-2024 Methylmalonate [Moles/Vol] 0.29 umol/L Normal <=0.40 [facility] Comment on above: Order Comment: Raad talley Type: BLOOD SPECIMENOrdering Facility: [facility] Address: [address] [place] [address] Result Comment: This test was developed, and its performance characteristics determined by the [facility] Department of Pathology and Laboratory Medicine. It has not been cleared or approved by the FDA. The [facility] Department of Pathology and Laboratory Medicine is regulated under CLIA as qualified to perform high-complexity testing. This test is used for clinical purposes. It should not be regarded as investigational or for research. Performed By: #### 1 3964-2 ####[facility] LABCLIA [id number] [address] [place] No Panel Informationon 08-24 Interpretation and review of laboratory results Normal [facility] PROTEIN ELECTROPHORESIS SERU M (P)on 08-24-2024 Albumin [Mass/Vol] 3.51 g/dL Normal 3.43-5.41 [facility] Comment on above: Order Comment: Speci men Type: BLOOD SPECIMENOrdering Facility: [facility] Address: [address] [place] [address] Performed By: #### L [id number] ####[facility] LABIA [id number] [place] [address] [place] Alpha 1 globulin Elph [Mass/Vol] 0.34 g/dL Normal 0.18-0.43 [facility] Comment on above: Order Comment: Speci men Type: BLOOD SPECIMENOrdering Facility: [facility] Address: [address] [place] [address] Performed By: #### L [id number] ####[facility] LABIA [id number] [place] [address] [place] Alpha 2 globulin Elph [Mass/Vol] 0.89 g/dL Normal 0.42-0.98 [facility] Comment on above: Order Comment: Speci men Type: BLOOD SPECIMENOrdering Facility: [facility] Address: [address] [place] [address] Performed By: #### L [id number] ####[facility] [id number] [place] [address] [place] Beta globulin Elph [Mass/Vol] 1.06 g/dL Normal 0.61-1.17 [facility] Comment on above: Order Comment: Speci men Type: BLOOD SPECIMENOrdering Facility: [facility] Address: [address] [place] [address] Performed By: #### L [id number] ####[facility] LABIA [id number] [place] [id number] [place] Gamma globulin Elph [Mass/Vol] 1.81 g/dL High 0.53-1.51 [facility] Comment on above: Order Comment: Speci men Type: BLOOD SPECIMENOrdering Facility: [facility] Address: [address] [place], [place] [address] Performed By: #### L [id number] ####[facility] LABCLIA [id number] [place] [id number] [place] INTERPRETATION COMMENT FOR PROTEIN ELECTROPHORESIS Normal [facility] Comment on above: Order Comment: Speci men Type: BLOOD SPECIMENOrdering Facility: [facility] Address: [address] [place] [address] Performed By: #### L [id number] ####[facility] LABCLIA [id number] [address], [facility] [place] M-PROTEIN LOCATION Normal [facility] Comment on above: Order Comment: Speci men Type: BLOOD SPECIMENOrdering Facility: [facility] Address: [address] [place] [address] Result Comment: Not Applicable. Performed By: #### L [id number] ####[facility] LABCLIA [id number] [place] [id number] [facility] [place] Protein Fractions [Interp] An atypical region of restricted mobility is identified on protein electrophoresis. Abnormal No definitive M protein is identified on protein electrophor esis. [facility] Comment on above: Order Comment: Speci men Type: BLOOD SPECIMENOrdering Facility: [facility] Address: [address] [place] [address] Performed By: #### L [id number] ####[facility] LABCLIA [id number] [place] [id number] [facility] [place] Protein.monoclonal Elph [Mass/Vol] 0.00 g/dL Normal <=0.00 [facility] Comment on above: Order Comment: Speci men Type: BLOOD SPECIMENOrdering Facility: [facility] Address: [address] [place] [address] Performed By: #### L [id number] ####[facility] LABCLIA [id number] [place] [id number] [place] SPE STAFF REVIEW Reviewed by Terri Cobb M.D., Ph.D Normal [facility] Comment on above: Order Comment: Speci men Type: BLOOD SPECIMENOrdering Facility: [facility] Address: [address] [place] [address] Performed By: #### L [id number] ####[facility] LABCLIA [id number] [place] [id number] [place] Prot SerPl-mCncon 08-24-2024 Protein [Mass/Vol] 7.6 g/dL Normal 6.3-8.0 [facility] Comment on above: Order Comment: Speci men Type: BLOOD SPECIMENOrdering Facility: [facility] Address: [address] [place] [address] Performed By: #### 2 132-9, 2885-2, 2284-8, 4542-7 ####[facility] LABCLIA [id number] [place] [address] [place] RETICULOCYTE COUNTon 025 Reticulocytes (Bld) [#/Vol] 0.06 10*3/uL [facility] Retics #on 08-24-2024 Reticulocytes (Bld) [#/Vol] 0.90425 10*3/uL Normal 0.018-0.100 [facility] Comment on above: Order Comment: Speci men Type: BLOOD SPECIMENOrdering Facility: [facility] Address: [address] [place] [address] Performed By: #### 1 4196-0, 40374-7 ####[facility] [id number] [place] [address] [place] Reticulocytes (Bld) [#/Vol]o n 08-24-2024 Interpretation and review of laboratory results Normal [facility] Reticulocytes/100 RBC (Bld) 1.6 % 0.4 - 2.0 % [facility] Reticulocytes/100 RBC (Bld) 1.6 % Normal 0.4-2.0 [facility] Comment on above: Order Comment: Speci men Type: BLOOD SPECIMENOrdering Facility: [facility] Address: [address] [place] [address] Performed By: #### 1 4196-0, 65995-1 ####[facility] [id number] [place] [address] [place] VITAMIN B12on 08-24-2024 Cobalamin (Vitamin B12) [Mass/Vol] 605 pg/mL 232 - 1245 pg/mL [facility] Vit B12 SerPl-mCncon 025 Cobalamin (Vitamin B12) [Mass/Vol] 605 pg/mL Normal 232-1245 [facility] Comment on above: Order Comment: Speci men Type: BLOOD SPECIMENOrdering Facility: [facility] Address: [address] [place] [address] Performed By: #### 2 132-9, 2885-2, 2284-8, 4542-7 ####[facility] LABCLIA [id number] [place] [address] [place] Zinc SerPl-ncon 08-24-2024 Zinc [Mass/Vol] 85 ug/dL Normal 60-120 [facility] Comment on above: Order Comment: Raad talley Type: BLOOD SPECIMENOrdering Facility: [facility] Address: [address] [place] [address] Result Comment: This test was developed, and its performance characteristics determined by the [facility] Department of Pathology and Laboratory Medicine. It has not been cleared or approved by the FDA. The [facility] Department of Pathology and Laboratory Medicine is regulated under CLIA as qualified to perform high-complexity testing. This test is used for clinical purposes. It should not be regarded as investigational or for research. Performed By: #### Edgard HALL, 5763-8 ####[facility] LABCLIA [id number] [place] [id number] [place] CNPNon 08-18-2024 CNPN Normal [facility] 25(OH)D3 SerPl-mCncon 2024 25-hydroxyvitamin D3 [Mass/Vol] 30.5 ng/mL Low 31.0-80.0 [facility] Comment on above: Order Comment: Speci men Type: BLOOD SPECIMENOrdering Facility: [facility] Address: [address] [place] [address] Result Comment: Clas sification of 25 [place] Vitamin D status:Deficiency/Insufficiency: < or = 30 ng/ml.Sufficiency/Optimal Levels: 31-80 ng/mLToxicity: > 100 ng/mL.Test performed by chemiluminescent immunoassay. Performed By: #### 1 989-3 ####[facility] LABCLIA [id number] [address] [place] [facility] 25-hydroxyvitamin D3 [Mass/V ol]on 08-16-2024 Interpretation and review of laboratory results Abnormal [facility] The reference range interval was based on an analysis of samples from healthy adults and may not pertain to children from 0-18 years old. [facility] CBC W Auto Differential pane l (Bld)on 08-16-2024 Basophils (Bld) [#/Vol] [facility] Basophils/100 WBC (Bld) 0.3 % [facility] Differential cell count method Nom (Bld) Auto [facility] Eosinophils (Bld) [#/Vol] 0.74 10*3/uL High [facility] Eosinophils/100 WBC (Bld) 10.3 % [facility] Erythrocyte distribution width (RBC) [Ratio] 11.8 % 11.5 - 15.0 % [facility] Hematocrit (Bld) [Volume fraction] 35.6 % Low 36.0 - 46.0 % [facility] Hemoglobin (Bld) [Mass/Vol] 10.5 g/dL Low 11.5 - 15.5 g/dL [facility] Immature granulocytes (Bld) [#/Vol] [facility] Immature granulocytes/100 WBC (Bld) 0.3 % [facility] Interpretation and review of laboratory results Abnormal [facility] Lymphocytes (Bld) [#/Vol] 0.74 10*3/uL Low [facility] Lymphocytes/100 WBC (Bld) 10.3 % [facility] MCH (RBC) [Entitic mass] 29 pg 26.0 - 34.0 pg [facility] MCHC (RBC) [Mass/Vol] 29.5 g/dL Low 30.5 - 36.0 g/dL [facility] MCV (RBC) [Entitic vol] 98.3 fL 80.0 - 100.0 fL [facility] Monocytes (Bld) [#/Vol] 0.83 10*3/uL [facility] Monocytes/100 WBC (Bld) 11.6 % [facility] Neutrophils (Bld) [#/Vol] 4.82 10*3/uL [facility] Neutrophils/100 WBC (Bld) 67.2 % [facility] Nucleated RBC (Bld) [#/Vol] NINF [facility] Nucleated RBC/100 WBC (Bld) [Ratio] 0 % /100 WBC [facility] Platelet mean volume (Bld) [Entitic vol] 11.3 fL 9.0 - 12.7 fL [facility] Platelets (Bld) [#/Vol] 239 10*3/uL [facility] RBC (Bld) [#/Vol] 3.62 10*6/uL Low 3.90 - 5.2 0 m/uL [facility] WBC (Bld) [#/Vol] 7.17 10*3/uL [facility] Basophils (Bld) [#/Vol] 10*3/uL Normal <0.11 [facility] Comment on above: Order Comment: Speci men Type: BLOOD SPECIMENOrdering Facility: [facility] Address: [address] [place] [address] Performed By: #### 5 7021-8 ####[facility] LABCLIA [id number] [place] [address] [place] Basophils/100 WBC (Bld) 0.3 % Normal [facility] Comment on above: Order Comment: Speci men Type: BLOOD SPECIMENOrdering Facility: [facility] Address: [address] [place] [address] Performed By: #### 5 7021-8 ####[facility] LABCLIA [id number] [place] [address] [place] Differential cell count method Nom (Bld) Auto Normal [facility] Comment on above: Order Comment: Speci men Type: BLOOD SPECIMENOrdering Facility: [facility] Address: [address] [place] [address] Performed By: #### 5 7021-8 ####[facility] LABCLIA [id number] [place] [address] [place] Eosinophils (Bld) [#/Vol] 0.74 10*3/uL High <0.46 [facility] Comment on above: Order Comment: Speci men Type: BLOOD SPECIMENOrdering Facility: [facility] Address: [address] [place] [address] Performed By: #### 5 7021-8 ####[facility] LABIA [id number] [place] [address] [place] Eosinophils/100 WBC (Bld) 10.3 % Normal [facility] Comment on above: Order Comment: Speci men Type: BLOOD SPECIMENOrdering Facility: [facility] Address: [address] [place] [address] Performed By: #### 5 7021-8 ####[facility] LABIA [id number] [place] [address] [place] Erythrocyte distribution width (RBC) [Ratio] 11.8 % Normal 11.5-15.0 [facility] Comment on above: Order Comment: Speci men Type: BLOOD SPECIMENOrdering Facility: [facility] Address: [address] [place] [address] Performed By: #### 5 7021-8 ####[facility] LABIA [id number] [place] [address] [place] Hematocrit (Bld) [Volume fraction] 35.6 % Low 36.0-46.0 [facility] Comment on above: Order Comment: Speci men Type: BLOOD SPECIMENOrdering Facility: [facility] Address: [address] [place] [address] Performed By: #### 5 7021-8 ####[facility] LABCLIA [id number] [place] [address] [place] Hemoglobin (Bld) [Mass/Vol] 10.5 g/dL Low 11.5-15.5 [facility] Comment on above: Order Comment: Speci men Type: BLOOD SPECIMENOrdering Facility: [facility] Address: [address] [place] [address] Performed By: #### 5 7021-8 ####[facility] LABCLIA [id number] [place] [address] [place] Immature granulocytes (Bld) [#/Vol] 10*3/uL Normal <0.10 [facility] Comment on above: Order Comment: Speci men Type: BLOOD SPECIMENOrdering Facility: [facility] Address: [address] [place] [address] Performed By: #### 5 7021-8 ####[facility] LABIA [id number] [place] [address] [place] Immature granulocytes/100 WBC (Bld) 0.3 % Normal [facility] Comment on above: Order Comment: Speci men Type: BLOOD SPECIMENOrdering Facility: [facility] Address: [address] [place] [address] Performed By: #### 5 7021-8 ####[facility] LABIA [id number] [place] [address] [place] Lymphocytes (Bld) [#/Vol] 0.74 10*3/uL Low 1.00-4.00 [facility] Comment on above: Order Comment: Speci men Type: BLOOD SPECIMENOrdering Facility: [facility] Address: [address] [place] [address] Performed By: #### 5 7021-8 ####[facility] LABIA [id number] [place] [address] [place] Lymphocytes/100 WBC (Bld) 10.3 % Normal [facility] Comment on above: Order Comment: Speci men Type: BLOOD SPECIMENOrdering Facility: [facility] Address: [address] [place] [address] Performed By: #### 5 7021-8 ####[facility] LABIA [id number] [place] [address] [place] MCH (RBC) [Entitic mass] 29.0 pg Normal 26.0-34.0 [facility] Comment on above: Order Comment: Speci men Type: BLOOD SPECIMENOrdering Facility: [facility] Address: [address] [place] [address] Performed By: #### 5 7021-8 ####[facility] LABIA [id number] [place] [address] [place] MCHC (RBC) [Mass/Vol] 29.5 g/dL Low 30.5-36.0 [facility] Comment on above: Order Comment: Speci men Type: BLOOD SPECIMENOrdering Facility: [facility] Address: [address] [place] [address] Performed By: #### 5 7021-8 ####[facility] LABIA [id number] [place] [address] [place] MCV (RBC) [Entitic vol] 98.3 fL Normal 80.0-100.0 [facility] Comment on above: Order Comment: Speci men Type: BLOOD SPECIMENOrdering Facility: [facility] Address: [address] [place] [address] Performed By: #### 5 7021-8 ####[facility] LABIA [id number] [place] [address] [place] Monocytes (Bld) [#/Vol] 0.83 10*3/uL Normal <0.87 [facility] Comment on above: Order Comment: Speci men Type: BLOOD SPECIMENOrdering Facility: [facility] Address: [address] [place] [address] Performed By: #### 5 7021-8 ####[facility] LABCLIA [id number] [address] [address] [place] Monocytes/100 WBC (Bld) 11.6 % Normal [facility] Comment on above: Order Comment: Speci men Type: BLOOD SPECIMENOrdering Facility: [facility] Address: [address] [place] [address] Performed By: #### 5 7021-8 ####[facility] LABCLIA [id number] [place] [id number] [place] Neutrophils (Bld) [#/Vol] 4.82 10*3/uL Normal 1.45-7.50 [facility] Comment on above: Order Comment: Speci men Type: BLOOD SPECIMENOrdering Facility: [facility] Address: [address] [place] [address] Performed By: #### 5 7021-8 ####[facility] LABCLIA [id number] [place] [id number] [place] Neutrophils/100 WBC (Bld) 67.2 % Normal [facility] Comment on above: Order Comment: Speci men Type: BLOOD SPECIMENOrdering Facility: [facility] Address: [address] [place] [address] Performed By: #### 5 7021-8 ####[facility] LABCLIA [id number] [address] [address] [place] Nucleated RBC (Bld) [#/Vol] 10*3/uL Normal <0.01 [facility] Comment on above: Order Comment: Speci men Type: BLOOD SPECIMENOrdering Facility: [facility] Address: [address] [place] [address] Performed By: #### 5 7021-8 ####[facility] LABCLIA [id number] [address] [address] [place] Nucleated RBC/100 WBC (Bld) [Ratio] 0.0 /100 WBC Normal [facility] Comment on above: Order Comment: Speci men Type: BLOOD SPECIMENOrdering Facility: [facility] Address: [address] [place] [address] Performed By: #### 5 7021-8 ####[facility] LABCLIA [id number] [place] [address] [place] Platelet mean volume (Bld) [Entitic vol] 11.3 fL Normal 9.0-12.7 [facility] Comment on above: Order Comment: Speci men Type: BLOOD SPECIMENOrdering Facility: [facility] Address: [address] [place] [address] Performed By: #### 5 7021-8 ####[facility] LABCLIA [id number] [place] [address] [place] Platelets (Bld) [#/Vol] 239 10*3/uL Normal 150-400 [facility] Comment on above: Order Comment: Speci men Type: BLOOD SPECIMENOrdering Facility: [facility] Address: [address] [place] [address] Performed By: #### 5 7021-8 ####[facility] LABCLIA [id number] [place] [address] [place] RBC (Bld) [#/Vol] 3.62 10*6/uL Low 3.90-5.20 [facility] Comment on above: Order Comment: Speci men Type: BLOOD SPECIMENOrdering Facility: [facility] Address: [address] [place] [address] Performed By: #### 5 7021-8 ####[facility] LABCLIA [id number] [place] [address] [place] WBC (Bld) [#/Vol] 7.17 10*3/uL Normal 3.70-11.00 [facility] Comment on above: Order Comment: Speci men Type: BLOOD SPECIMENOrdering Facility: [facility] Address: [address] [place] [address] Performed By: #### 5 7021-8 ####[facility] LABCLIA [id number] [facility] [place] [address] [place] CNOVon 08-16-2024 CNOV Normal [facility] Cobalamin (Vitamin B12) [Mas s/Vol]on 08-16-2024 Interpretation and review of laboratory results Normal [facility] Comprehensive metabolic 2000 panelon 08-16-2024 Albumin [Mass/Vol] 3.8 g/dL Low 3.9 - 4.9 g/dL [facility] ALP [Catalytic activity/Vol] 121 U/L 34 - 123 U/L [facility] ALT [Catalytic activity/Vol] 10 U/L 7 - 38 U/L [facility] Anion gap [Moles/Vol] 13 mmol/L 8 - 15 mmol/L [facility] AST [Catalytic activity/Vol] 13 U/L 13 - 35 U/L [facility] Bilirubin [Mass/Vol] 0.5 mg/dL 0.2 - 1 .3 mg/dL [facility] Calcium [Mass/Vol] 9.3 mg/dL 8.5 - 10. 2 mg/dL [facility] Chloride [Moles/Vol] 106 mmol/L 98 - 10 7 mmol/L [facility] CO2 [Moles/Vol] 23 mmol/L 22 - 30 mmol/L [facility] Creatinine [Mass/Vol] 1.31 mg/dL High 0.58 - 0.96 mg/dL [facility] GFR/1.73 sq M.predicted among non-blacks MDRD (S/P/Bld) [Vol rate/Area] 46 mL/min/{1.73_m2} Low - PINF [facility] Comment on above: Estimated Glomerular Filtration Rate (eGFR) is calculated using the 2020 CKD-EPI creatinine equation. This equation utilizes serum creatinine, sex, and age as parameters. The creatinine assay has traceable calibration to isotope dilution-mass spectrometry. Refer to KDIGO guidelines for clinical interpretation. In patients with unstable renal function, e.g. those with acute kidney injury, the eGFR may not accurately reflect actual GFR. Glucose [Mass/Vol] 88 mg/dL 74 - 99 mg/dL [facility] Comment on above: The [place] Diabete s Association (ADA) provides guidance for cutoff values for fasting glucose and random glucose. The ADA defines fasting as no caloric intake for at least 8 hours. Fasting plasma glucose results between 100 to 125 mg/dL indicate increased risk for diabetes (prediabetes). Fasting plasma glucose results greater than or equal to 126 mg/dL meet the criteria for diagnosis of diabetes. In the absence of unequivocal hyperglycemia, results should be confirmed by repeat testing. In a patient with classic symptoms of hyperglycemia or hyperglycemic crisis, random plasma glucose results greater than or equal to 200 mg/dL meet the criteria for diagnosis of diabetes. Reference: Standards of Medical Care in Diabetes 2016, [place] Diabetes Association. Diabetes Care. 2016.39(Suppl 1). Interpretation and review of laboratory results Abnormal [facility] Potassium [Moles/Vol] 3.9 mmol/L 3.7 - 5.1 mmol/L [facility] Protein [Mass/Vol] 7.3 g/dL 6.3 - 8.0 g/dL [facility] Sodium [Moles/Vol] 142 mmol/L 136 - 144 mmol/L [facility] Urea nitrogen [Mass/Vol] 21 mg/dL 7 - 21 mg/dL [facility] Albumin [Mass/Vol] 3.8 g/dL Low 3.9-4.9 [facility] Comment on above: Order Comment: Roeli men Type: BLOOD SPECIMENOrdering Facility: [facility] Address: [address] [place] [address] Performed By: #### 2 4322-09, 2131-10 ####[facility] LABCLIA [id number] [place] [address] [place] ALP [Catalytic activity/Vol] 121 U/L Normal 34-123 [facility] Comment on above: Order Comment: Speci men Type: BLOOD SPECIMENOrdering Facility: [facility] Address: [address] [place] [address] Performed By: #### 2 43205-01, 2131-10 ####[facility] LABCLIA [id number] [address] [address] [place] ALT [Catalytic activity/Vol] 10 U/L Normal 7-38 [facility] Comment on above: Order Comment: Speci men Type: BLOOD SPECIMENOrdering Facility: [facility] Address: [address] [place], [place] [address] Performed By: #### 2 4322-09, 2131-10 ####[facility] LABCLIA [id number] [place] [id number] [place] Anion gap [Moles/Vol] 13 mmol/L Normal 8-15 [facility] Comment on above: Order Comment: Speci men Type: BLOOD SPECIMENOrdering Facility: [facility] Address: [address] [place] [address] Performed By: #### 2 4322-09, 2131-10 ####[facility] LABCLIA [id number] [place] [address] [place] AST [Catalytic activity/Vol] 13 U/L Normal 13-35 [facility] Comment on above: Order Comment: Speci men Type: BLOOD SPECIMENOrdering Facility: [facility] Address: [address] [place] [address] Performed By: #### 2 4322-09, 2131-10 ####[facility] LABCLIA [id number] [place] [id number] [place] Bilirubin [Mass/Vol] 0.5 mg/dL Normal 0.2-1.3 [facility] Comment on above: Order Comment: Speci men Type: BLOOD SPECIMENOrdering Facility: [facility] Address: [address] [place] [address] Performed By: #### 2 4322-09, 2131-10 ####[facility] LABCLIA [id number] [place] [id number] [place] Calcium [Mass/Vol] 9.3 mg/dL Normal 8.5-10.2 [facility] Comment on above: Order Comment: Speci men Type: BLOOD SPECIMENOrdering Facility: [facility] Address: [address] [place] [id number] Performed By: #### 2 432-8, 2131-10 ####[facility] LABCLIA [id number] [address] [address] [place] Chloride [Moles/Vol] 106 mmol/L Normal 98-107 [facility] Comment on above: Order Comment: Speci men Type: BLOOD SPECIMENOrdering Facility: [facility] Address: [address] [place], [place] [address] Performed By: #### 2 4328, 2131-10 ####[facility] LABCLIA [id number] [place] [address] [place] CO2 [Moles/Vol] 23 mmol/L Normal 22-30 [facility] Comment on above: Order Comment: Speci men Type: BLOOD SPECIMENOrdering Facility: [facility] Address: [address] [place] [address] Performed By: #### 2 4328, 2131-10 ####[facility] LABCLIA [id number] [place] [address] [place] Creatinine [Mass/Vol] 1.31 mg/dL High 0.58-0.96 [facility] Comment on above: Order Comment: Speci men Type: BLOOD SPECIMENOrdering Facility: [facility] Address: [address] [place], [place] [address] Performed By: #### 2 4323-8, 2131-10 ####[facility] LABIA [id number] [place] [id number] [place] Creatinine and Glomerular filtration rate.predicted panel (S/P/Bld) 46 mL/min/1.73m??? Low >=60 [facility] Comment on above: Order Comment: Speci men Type: BLOOD SPECIMENOrdering Facility: [facility] Address: [address] [place], [place] [address] Result Comment: Tamiko mated Glomerular Filtration Rate (eGFR) is calculated using the 2020 CKD-EPI creatinine equation. This equation utilizes serum creatinine, sex, and age as parameters. The creatinine assay has traceable calibration to isotope dilution-mass spectrometry. Refer to KDIGO guidelines for clinical interpretation. In patients with unstable renal function, e.g. those with acute kidney injury, the eGFR may not accurately reflect actual GFR. Performed By: #### 2 43205-01, 2131-10 ####[facility] LABCLIA [id number] [place] [address] [place] Glucose [Mass/Vol] 88 mg/dL Normal 74-99 [facility] Comment on above: Order Comment: Raad talley Type: BLOOD SPECIMENOrdering Facility: [facility] Address: [address] [place] [address] Result Comment: The [place] Diabetes Association (ADA) provides guidance for cutoff values for fasting glucose and random glucose. The ADA defines fasting as no caloric intake for at least 8 hours. Fasting plasma glucose results between 100 to 125 mg/dL indicate increased risk for diabetes (prediabetes).Fasting plasma glucose results greater than or equal to 126 mg/dL meet the criteria for diagnosis of diabetes. In the absence of unequivocal hyperglycemia, results should be confirmed by repeat testing. In a patient with classic symptoms of hyperglycemia or hyperglycemic crisis, random plasma glucose results greater than or equal to 200 mg/dL meet the criteria for diagnosis of diabetes.Reference: Standards of Medical Care in Diabetes 2016, [place] Diabetes Association. Diabetes Care. 2016.39(Suppl 1). Performed By: #### 2 4322-09, 2131-10 ####[facility] LABIA [id number] [place] [id number] [place] Potassium [Moles/Vol] 3.9 mmol/L Normal 3.7-5.1 [facility] Comment on above: Order Comment: Raad talley Type: BLOOD SPECIMENOrdering Facility: [facility] Address: [address] [place] [address] Performed By: #### 2 43205-01, 2131-10 ####[facility] LABIA [id number] [address] [place] [address] [place] Protein [Mass/Vol] 7.3 g/dL Normal 6.3-8.0 [facility] Comment on above: Order Comment: Speci men Type: BLOOD SPECIMENOrdering Facility: [facility] Address: [address] [place] [address] Performed By: #### 2 4323-8, 2131-10 ####[facility] LABIA [id number] [place] [id number] [place] Sodium [Moles/Vol] 142 mmol/L Normal 136-144 [facility] Comment on above: Order Comment: Speci men Type: BLOOD SPECIMENOrdering Facility: [facility] Address: [address] [place] [address] Performed By: #### 2 4323-8, 2131-10 ####[facility] LABIA [id number] [place] [address] [place] Urea nitrogen [Mass/Vol] 21 mg/dL Normal 7-21 [facility] Comment on above: Order Comment: Speci men Type: BLOOD SPECIMENOrdering Facility: [facility] Address: [address] [place] [address] Performed By: #### 2 4323-8, 2131-10 ####[facility] LABIA [id number] [place] [id number] [place] FERRITINon 08-16-2024 Ferritin [Mass/Vol] 297 ng/mL High 14.7 - 205.1 ng/mL [facility] Ferritin SerPl-mCncon 2024 Ferritin [Mass/Vol] 297.0 ng/mL High 14.7-205.1 [facility] Comment on above: Order Comment: Speci men Type: BLOOD SPECIMENOrdering Facility: [facility] Address: [address] [place] [address] Performed By: #### 2 276-4, 3016-3, 36152-6, 12403-7 ####[facility] LABCLIA [id number] [facility] [id number] [place] [address] [place] Ferritin [Mass/Vol]on 2024 Interpretation and review of laboratory results Abnormal [facility] HbA1c (Bld)on 08-16-2024 Average glucose Estimated from glycated hemoglobin (Bld) [Mass/Vol] 82 mg/dL [facility] Comment on above: eAG: (Estimated aver age glucose) is a calculated value from HgbA1c and is telephone services sales representative of the average blood glucose level in the last 2-3 month period. HbA1c (Bld) [Mass fraction] 4.5 % 4.3 - 5.6 % [facility] Comment on above: [place] Diabetes As sociation guidelines indicate that patients with HgbA1c in the range 5.7-6.4% are at increased risk for development of diabetes, and intervention by lifestyle modification may be beneficial. HgbA1c greater or equal to 6.5% is considered diagnostic of diabetes. [facility] Average glucose Estimated from glycated hemoglobin (Bld) [Mass/Vol] 82 mg/dL Normal [facility] Comment on above: Order Comment: Speci mayank Type: BLOOD SPECIMENOrdering Facility: [facility] Address: [address] [place] [address] Result Comment: eAG: (Estimated average glucose) is a calculated value from HgbA1c and is telephone services sales representative of the average blood glucose level in the last 2-3 month period. Performed By: #### 5 5454-3 ####[facility] LABCLIA [id number] [address] [address] [place] HbA1c (Bld) [Mass fraction] 4.5 % Normal 4.3-5.6 [facility] Comment on above: Order Comment: Speci men Type: BLOOD SPECIMENOrdering Facility: [facility] Address: [address] [place] [address] Result Comment: [place] Diabetes Association guidelines indicate that patients with HgbA1c in the range 5.7-6.4% are at increased risk for development of diabetes, and intervention by lifestyle modification may be beneficial. HgbA1c greater or equal to 6.5% is considered diagnostic of diabetes. Performed By: #### 5 5454-3 ####[facility] LABCLIA [id number] [place] [address] [place] Iron and Iron binding capaci ty panelon 08-16-2024 Interpretation and review of laboratory results Abnormal [facility] Iron [Mass/Vol] 29 ug/dL Low 41 - 186 ug/dL [facility] Iron binding capacity [Mass/Vol] 202 ug/dL Low 232 - 386 ug/dL [facility] Iron/TIBC [Molar ratio] 14.4 % Low 15.0 - 57.0 % [facility] Iron [Mass/Vol] 29 ug/dL Low 41-186 [facility] Comment on above: Order Comment: Speci men Type: BLOOD SPECIMENOrdering Facility: [facility] Address: [address] [place] [address] Performed By: #### 2 276-4, 3016-3, 36768-4, 97340-3 ####[facility] LABCLIA [id number] [address] [place] Iron binding capacity [Mass/Vol] 202 ug/dL Low 232-386 [facility] Comment on above: Order Comment: Speci men Type: BLOOD SPECIMENOrdering Facility: [facility] Address: [address] [place] [address] Performed By: #### 2 276-4, 3016-3, , 99980-1 ####[facility] LABCLIA [id number] [address] [place] Iron/TIBC [Molar ratio] 14.4 % Low 15.0-57.0 [facility] Comment on above: Order Comment: Speci men Type: BLOOD SPECIMENOrdering Facility: [facility] Address: [address] [place] [address] Performed By: #### 2 276-4, 3016-3, 98742-6, 60472-9 ####[facility] LABCLIA [id number] [place] [id number] [place] MAGNESIUMon 08-16-2024 Magnesium [Mass/Vol] 1.7 mg/dL 1.7 - 2 .3 mg/dL [facility] Magnesium SerPl-mCncon 08-16 Magnesium [Mass/Vol] 1.7 mg/dL Normal 1.7-2.3 [facility] Comment on above: Order Comment: Speci men Type: BLOOD SPECIMENOrdering Facility: [facility] Address: [address] [place], [place] [address] Performed By: #### 2 276-4, 3016-3, 83372-4, 82739-5 ####[facility] LABCLIA [id number] [place] [id number] [place] Magnesium [Mass/Vol]on 08-16 Interpretation and review of laboratory results Normal [facility] No Panel Informationon 08-16 [facility] THYROID STIMULATING HORMONEo n 08-16-2024 TSH Qn 2.33 m[IU]/L [facility] TSH Qnon 08-16-2024 Interpretation and review of laboratory results Normal [facility] TSH SerPl-aCncon 08-16-2024 TSH Qn 2.330 m[IU]/L Normal 0.270-4.200 [facility] Comment on above: Order Comment: Speci men Type: BLOOD SPECIMENOrdering Facility: [facility] Address: [address] [place], [place] [address] Performed By: #### 2 276-4, 3016-3, 74822-4, 51058-5 ####[facility] LABCLIA [id number] [place] [id number] [place] VITAMIN B12on 08-16-2024 Cobalamin (Vitamin B12) [Mass/Vol] 569 pg/mL 232 - 1245 pg/mL [facility] VITAMIN D 25 HYDROXYon 08-16 25-hydroxyvitamin D3 [Mass/Vol] 30.5 ng/mL Low 31.0 - 80.0 ng/mL [facility] Comment on above: Classification of 25 [place] Vitamin D status: Deficiency/Insufficiency: < or = 30 ng/ml. Sufficiency/Optimal Levels: 31-80 ng/mL Toxicity: > 100 ng/mL. Test performed by chemiluminescent immunoassay. Vit B12 SerPl-mCncon 025 Cobalamin (Vitamin B12) [Mass/Vol] 569 pg/mL Normal 232-1245 [facility] Comment on above: Order Comment: Speci men Type: BLOOD SPECIMENOrdering Facility: [facility] Address: [address] [place] [address] Performed By: #### 2 4323-8, 2132-9 ####[facility] LABCLIA [id number] [place] [address] [place] CNPNon 07-27-2024 CNPN Normal [facility] CNPNon 07-26-2024 CNPN Normal [facility] Bacteria Ur Culton Bacteria identified Cx Nom (U) Normal [facility] Comment on above: Performed By: #### 6 30-4 ####[facility] LABCLIA [id number] [place] [address] [place] CNOVon 07-18-2024 CNOV Normal [facility] UA DIP, URINE (POC)on 2024 BILIRUBIN UA (POCT) Negative Negative [facility] CLARITY UA (POCT) Clear [facility] COLOR UA (POCT) Yellow [facility] GLUCOSE UA (POCT) Negative Negative mg/dL [facility] Hemoglobin Ql (U) Moderate Abnormal Negative [facility] Interpretation and review of laboratory results Abnormal [facility] KETONE UA (POCT) Negative Negative mg/dL [facility] LEUKOCYTES UA (POCT) Trace Abnormal Negative [facility] NITRITE UA (POCT) Negative Negative [facility] PH UA (POCT) 6 4.5 - 8.0 [facility] Protein Ql (U) 100 mg/dL Abnormal Negative [facility] SPECIFIC GRAVITY UA (POCT) 1.02 1.005 - 1.030 [facility] UROBILINOGEN UA (POCT) 0.2 Carmen l E.U./dL [facility] Location:[address], [address] [facility] POINT OF CARE [facility] Surgery Visit Reporton 07-16 Surgery Visit Report [facility] [address] [place] [address] OFFICE VISIT Date of Service: 07/16/24 MR#: [id number] Acct: [id number] Name: MEGGAN ARITA Rep #: [id number] : 1960 Provider: Dr. Raysa araujo MD Age/Sex: 63/F Location: [facility] Status: Signed Intake Vital Signs 12/26/23 13:25 Height 5 ft 8 in Weight: 345 lb BMI 52.4 BP 141/83 H Blood Pressure Location Rt brachial Position Sitting Respiration 17 Pulse 77 Pulse Source Monitor Pulse Oximetry (%) 99 Oxygen Delivery Method room air Intake Visit Reasons: MED CHECK Chief Complaint: med check Is patient in pain?: No Allergies codeine Allergy (Verified 07/16/24 10:29) Nausea/Vom/Diarrhea iodine Allergy (Verified 07/16/24 10:29) Swelling latex Allergy (Verified 07/16/24 10:29) Shortness of breath meloxicam Allergy (Verified 07/16/24 10:29) Rash Penicillins Allergy (Verified 07/16/24 10:29) Shortness of breath tositumomab Allergy (Verified 07/16/24 10:29) NEEDS FOLLOW-UP hydrocodone bitartrate (From Vicodin) Adverse Reaction (Verified 07/16/24 10:29) Nausea/Vom/Diarrhea prednisone Adverse Reaction (Verified 07/16/24 10:29) Other Medications ???Medication ???Instructions ???Recorded ???Confirmed ???Type albuterol sulfate 2.5 mg/3 mL 2.5 mg inhalation Q6HWA.RT PRN 07/16/24 History (0.083 %) solution for nebulization Asthma acetaminophen 325 mg tablet 650 mg (2 x 325 mg) PO Q6H PRN PRN 08/15/21 07/16/24 Rx (Tylenol) Pain Score 1-10/Temp > 100.7 F #0 tabs ascorbic acid (vitamin C) 500 mg 500 mg PO BIDCM #0 tabs 08/15/21 0 07/16/24 Rx tablet ferrous sulfate 325 mg (65 mg 325 mg PO BIDCM #0 tabs 08/15/21 0 07/16/24 Rx iron) tablet (FeroSul) diclofenac sodium 1 % topical gel 1 ea topical PRN PRN Pain 2 07/16/24 History lorazepam 1 mg tablet 1 mg PO BID PRN PRN Anxiety #5 tab s 11/20/21 07/16/24 Rx fluticasone propionate 50 2 spray DAILY PRN Sinus Symptoms 1 04/02/21 07/16/24 Rx mcg/actuation nasal #16 grams spray,suspension potassium chloride 20 mEq 20 meq PO BIDCM #14 tabs 08/19/22 07/16/24 Rx tablet,extended release(part/cryst) (Klor-Con M) albuterol sulfate 90 mcg/actuation 2 puff inhalation Q4H PRN 07/16/24 Rx aerosol inhaler (Ventolin HFA) shortness of breath or wheezing #18 grams bupropion HCl 300 mg 24 hr tablet, 300 mg PO QDAY 06/30/23 07/16/24 History extended release cholecalciferol (vitamin D3) 50 50 mcg PO QDAY 06/30/23 07/16/24 H istory mcg (2,000 unit) capsule cyclobenzaprine 5 mg tablet 5 mg PO TID PRN 06/30/23 07/16/24 History furosemide 40 mg tablet 40 mg PO QDAY PRN 06/30/23 5 History losartan 50 mg tablet 100 mg PO DAILY 06/30/23 07/16/24 History metolazone 5 mg tablet 5 mg PO QDAY 06/30/23 07/16/24 His tory mometasone-formoterol HFA 200 2 puff inhalation BID 06/30/23 History mcg-5 mcg/actuation aerosol inhaler (Dulera) montelukast 10 mg tablet 10 mg PO QDAY 06/30/23 07/16/24 Hi story polyethylene glycol 3350 17 gram 17 g PO DAILY PRN 06/30/23 5 History oral powder packet (Miralax) tirzepatide 2.5 mg/0.5 mL 5 mg subcut 06/30/23 07/16/24 Hist ory subcutaneous pen injector (Dania) venlafaxine 75 mg capsule,extended 75 mg PO QDAY 06/30/23 07/16/24 History release 24 hr metronidazole 500 mg tablet 500 mg PO Q8H #21 tabs 08/04/23 Rx oxycodone-acetaminophen 5 mg-325 1 tab PO Q6H PRN PRN Pain 3 days 0 08/04/23 07/16/24 Rx mg tablet #12 TABLETS omeprazole 40 mg capsule,delayed 40 mg PO QDAY #30 caps 06/08/24 Rx release sucralfate 1 gram tablet 1 g PO QACHS #120 tabs 07/16/24 Rx Subjective Details: 63-year-old female presents follow-up for left upper quadrant pain/history of chronic gastritis. Patient's last EGD was by Dr. Dr. Ulrich 11/2021 showed chronic gastritis. Patient states the Carafate did help but she did completed in her initial appointment need to be moved due to emergency in the office. Patient states that the pain was getting better with the Carafate currently on the omeprazole still having some occasional left upper quadrant pain. Objective Details: Abdomen soft, nondistended, tender to palpation left upper quadrant???mild, no peritoneal signs Coding Level of Care Code Off vis,est,level 3 Diagnoses LUQ pain R10.12 [facility] Medical History Hypokalemia Asymptomatic bacteriuria Gastroenteritis Chronic respiratory failure with hypoxia and hypercapnia Anemia Anxiety Sleep apnea CPAP (continuous positive airway pressure) dependence Asthma Type 2 diabetes mellitus Obesity Hypertension (more content not included)... Normal [facility] Bacteria Ur Culton Bacteria identified Cx Nom (U) Normal [facility] Comment on above: Performed By: #### 6 30-4 ####[facility] LABCLIA [id number] [place] [address] [place] CNOVon 06-23-2024 CNOV Normal [facility] CNPNon 06-23-2024 CNPN Normal [facility] UA DIP, URINE (POC)on 2024 BILIRUBIN UA (POCT) Negative Negative [facility] CLARITY UA (POCT) Clear [facility] COLOR UA (POCT) Yellow [facility] GLUCOSE UA (POCT) Negative Negative mg/dL [facility] Hemoglobin Ql (U) Moderate Abnormal Negative [facility] Interpretation and review of laboratory results Abnormal [facility] KETONE UA (POCT) Negative Negative mg/dL [facility] LEUKOCYTES UA (POCT) Trace Abnormal Negative [facility] NITRITE UA (POCT) Negative Negative [facility] PH UA (POCT) 5.5 4.5 - 8.0 [facility] Protein Ql (U) 100 mg/dL Abnormal Negative [facility] SPECIFIC GRAVITY UA (POCT) 1.025 1.005 - 1.030 [facility] UROBILINOGEN UA (POCT) 0.2 Carmen l E.U./dL [facility] Location:[address], [address] [place] [address] POINT OF CARE [facility] CNOVon 06-22-2024 CNOV Normal [facility] CNPNon 06-07-2024 CNPN Normal [facility] CNPNon 06-03-2024 CNPN Normal [facility] CNPNon 05-22-2024 CNPN Normal [facility] CNOVon 05-07-2024 CNOV Normal [facility] CNPNon 04-24-2024 CNPN Normal [facility] 25(OH)D3 [facility] 25-hydroxyvitamin D3 [Mass/Vol] 25.8 ng/mL Low 31.0-80.0 [facility] Comment on above: Order Comment: Speci men Type: BLOOD SPECIMENOrdering Facility: [facility] Address: [address] [place] [address] Performed By: #### 1 989-3 ####[facility] LABCLIA [id number] [place] [address] [place] CBC panel Auto (Bld)on 04-23 Erythrocyte distribution width (RBC) [Ratio] 12.0 % Normal 11.5-15.0 [facility] Comment on above: Order Comment: Speci men Type: BLOOD SPECIMENOrdering Facility: [facility] Address: [address] [place] [address] Performed By: #### 5 8410-2 ####[facility] MAXWELLIOLAREJI [id number] [address] [place] Hematocrit (Bld) [Volume fraction] 37.3 % Normal 36.0-46.0 [facility] Comment on above: Order Comment: Speci men Type: BLOOD SPECIMENOrdering Facility: [facility] Address: [address] [place] [address] Performed By: #### 5 8410-2 ####[facility]ITALNCNunu [id number] [place] [address] [place] Hemoglobin (Bld) [Mass/Vol] 11.3 g/dL Low 11.5-15.5 [facility] Comment on above: Order Comment: Speci men Type: BLOOD SPECIMENOrdering Facility: [facility] Address: [address] [place] [address] Performed By: #### 5 8410-2 ####[facility] [id number] [place] [address] [place] MCH (RBC) [Entitic mass] 29.5 pg Normal 26.0-34.0 [facility] Comment on above: Order Comment: Speci men Type: BLOOD SPECIMENOrdering Facility: [facility] Address: [address] [place] [address] Performed By: #### 5 8410-2 ####[facility] H[facility]PITALNCLIA [id number] [place] [address] [place] MCHC (RBC) [Mass/Vol] 30.3 g/dL Low 30.5-36.0 [facility] Comment on above: Order Comment: Speci men Type: BLOOD SPECIMENOrdering Facility: [facility] Address: [address] [place] [address] Performed By: #### 5 8410-2 ####[facility] HOSPITALNCLIA [id number] [place] [address] [place] MCV (RBC) [Entitic vol] 97.4 fL Normal 80.0-100.0 [facility] Comment on above: Order Comment: Speci men Type: BLOOD SPECIMENOrdering Facility: [facility] Address: [address] [place] [address] Performed By: #### 5 8410-2 ####[facility] MEMORIALLIA [id number] [place] [address] [place] Nucleated RBC (Bld) [#/Vol] 10*3/uL Normal <0.01 [facility] Comment on above: Order Comment: Speci men Type: BLOOD SPECIMENOrdering Facility: [facility] Address: [address] [place] [address] Performed By: #### 5 8410-2 ####[facility] [id number] [place] [address] [place] Platelet mean volume (Bld) [Entitic vol] 11.3 fL Normal 9.0-12.7 [facility] Comment on above: Order Comment: Speci men Type: BLOOD SPECIMENOrdering Facility: [facility] Address: [address] [place] [address] Performed By: #### 5 8410-2 ####[facility] MEMORIALLIA [id number] [place] [address] [place] Platelets (Bld) [#/Vol] 259 10*3/uL Normal 150-400 [facility] Comment on above: Order Comment: Speci men Type: BLOOD SPECIMENOrdering Facility: [facility] Address: [address] [place] [address] Performed By: #### 5 8410-2 ####[facility] [id number] [place] [address] [place] RBC (Bld) [#/Vol] 3.83 10*6/uL Low 3.90-5.20 [facility] Comment on above: Order Comment: Speci men Type: BLOOD SPECIMENOrdering Facility: [facility] Address: [address] [place] [address] Performed By: #### 5 8410-2 ####[facility] [id number] [place] [address] [place] WBC (Bld) [#/Vol] 6.97 10*3/uL Normal 3.70-11.00 [facility] Comment on above: Order Comment: Speci men Type: BLOOD SPECIMENOrdering Facility: [facility] Address: [address] [place] [address] Performed By: #### 5 8410-2 ####[facility] [id number] [place] [address] [place] CNOVon 04-23-2024 CNOV Normal [facility] Comprehensive metabolic 2000 panelon 04-23-2024 Albumin [Mass/Vol] 3.9 g/dL Normal 3.9-4.9 [facility] Comment on above: Order Comment: Speci men Type: BLOOD SPECIMENOrdering Facility: [facility] Address: [address] [place] [address] Performed By: #### 2 4328, 2131-10 ####[facility] GENERAL LABORATORYCLIA [id number] [place] [address] [place] ALP [Catalytic activity/Vol] 124 U/L High 34-123 [facility] Comment on above: Order Comment: Speci men Type: BLOOD SPECIMENOrdering Facility: [facility] Address: [address] [place] [address] Performed By: #### 2 4323-8, 2131-10 ####[facility] LABORATORYCLIA [id number] [place] [address] [place] ALT With P-5'-P [Catalytic activity/Vol] 15 U/L Normal 7-38 [facility] Comment on above: Order Comment: Speci men Type: BLOOD SPECIMENOrdering Facility: [facility] Address: [address] [place] [address] Performed By: #### 2 43205-01, 2131-10 ####[facility] LABORATORYCLIA [id number] [place] [address] [place] Anion gap [Moles/Vol] 12 mmol/L Normal 8-15 [facility] Comment on above: Order Comment: Speci men Type: BLOOD SPECIMENOrdering Facility: [facility] Address: [address] [place] [address] Performed By: #### 2 4322-09, 2131-10 ####[facility] LABORATORYCLIA [id number] [place] [id number] [place] AST With P-5'-P [Catalytic activity/Vol] 15 U/L Normal 13-35 [facility] Comment on above: Order Comment: Speci men Type: BLOOD SPECIMENOrdering Facility: [facility] Address: [address] [place] [address] Performed By: #### 2 4322-09, 2131-10 ####[facility] LABORATORYCLIA [id number] [place] [address] [place] Bilirubin [Mass/Vol] 0.4 mg/dL Normal 0.2-1.3 [facility] Comment on above: Order Comment: Speci men Type: BLOOD SPECIMENOrdering Facility: [facility] Address: [address] [place] [address] Performed By: #### 2 43205-01, 2131-10 ####[facility] LABORATORYCLIA [id number] [place] [id number] [place] Calcium [Mass/Vol] 9.3 mg/dL Normal 8.5-10.2 [facility] Comment on above: Order Comment: Speci men Type: BLOOD SPECIMENOrdering Facility: [facility] Address: [address] [place] [address] Performed By: #### 2 4323-8, 2131-10 ####[facility] LABORATORYCLIA [id number] [place] [address] [place] Chloride [Moles/Vol] 110 mmol/L High 98-107 [facility] Comment on above: Order Comment: Speci men Type: BLOOD SPECIMENOrdering Facility: [facility] Address: [address] [place] [address] Performed By: #### 2 432-8, 2131-10 ####[facility] LABORATORYCLIA [id number] [place] [address] [place] CO2 [Moles/Vol] 24 mmol/L Normal 22-30 [facility] Comment on above: Order Comment: Speci men Type: BLOOD SPECIMENOrdering Facility: [facility] Address: [address] [place] [address] Performed By: #### 2 43205-01, 2131-10 ####[facility] LABORATORYCLIA [id number] [place] [id number] [place] Creatinine [Mass/Vol] 1.35 mg/dL High 0.58-0.96 [facility] Comment on above: Order Comment: Speci men Type: BLOOD SPECIMENOrdering Facility: [facility] Address: [address] [place] [address] Performed By: #### 2 43238, 2131-10 ####[facility] LABORATORYCLIA [id number] [place] [id number] [facility] [place] Creatinine and Glomerular filtration rate.predicted panel (S/P/Bld) 44 mL/min/1.73m??? Low >=60 [facility] Comment on above: Order Comment: Speci men Type: BLOOD SPECIMENOrdering Facility: [facility] Address: [address] [place] [address] Result Comment: Tamiko mated Glomerular Filtration Rate (eGFR) is calculated using the 2020 CKD-EPI creatinine equation. This equation utilizes serum creatinine, sex, and age as parameters. The creatinine assay has traceable calibration to isotope dilution-mass spectrometry. Refer to KDIGO guidelines for clinical interpretation. In patients with unstable renal function, e.g. those with acute kidney injury, the eGFR may not accurately reflect actual GFR. Performed By: #### 2 4322-09, 2131-10 ####[facility] LABORATORYCLIA [id number] [place] [address] [place] Glucose [Mass/Vol] 85 mg/dL Normal 74-99 [facility] Comment on above: Order Comment: Raad talley Type: BLOOD SPECIMENOrdering Facility: [facility] Address: [address] [place], [place] [address] Result Comment: The [place] Diabetes Association (ADA) provides guidance for cutoff values for fasting glucose and random glucose. The ADA defines fasting as no caloric intake for at least 8 hours. Fasting plasma glucose results between 100 to 125 mg/dL indicate increased risk for diabetes (prediabetes).Fasting plasma glucose results greater than or equal to 126 mg/dL meet the criteria for diagnosis of diabetes. In the absence of unequivocal hyperglycemia, results should be confirmed by repeat testing. In a patient with classic symptoms of hyperglycemia or hyperglycemic crisis, random plasma glucose results greater than or equal to 200 mg/dL meet the criteria for diagnosis of diabetes.Reference: Standards of Medical Care in Diabetes 2016, [place] Diabetes Association. Diabetes Care. 2016.39(Suppl 1). Performed By: #### 2 4322-09, 2131-10 ####[facility] LABORATORYCLIA [id number] [place] [address] [place] Potassium [Moles/Vol] 4.3 mmol/L Normal 3.7-5.1 [facility] Comment on above: Order Comment: Raad talley Type: BLOOD SPECIMENOrdering Facility: [facility] Address: [address] [place] [address] Performed By: #### 2 4322-09, 2131-10 ####[facility] LABORATORYCLIA [id number] [place] [address] [place] Protein [Mass/Vol] 7.4 g/dL Normal 6.3-8.0 [facility] Comment on above: Order Comment: Raad talley Type: BLOOD SPECIMENOrdering Facility: [facility] Address: [address] [place] [address] Performed By: #### 2 4323-8, 2131-10 ####[facility] LABORATORYCLIA [id number] [place] [address] [place] Sodium [Moles/Vol] 146 mmol/L High 136-144 [facility] Comment on above: Order Comment: Speci men Type: BLOOD SPECIMENOrdering Facility: [facility] Address: [address] [place] [address] Performed By: #### 2 4328, 2131-10 ####[facility] [place] [place] LABORATORYCLIA [id number] [place] [id number] [place] Urea nitrogen [Mass/Vol] 23 mg/dL High 7-21 [facility] Comment on above: Order Comment: Speci men Type: BLOOD SPECIMENOrdering Facility: [facility] Address: [address] [place] [address] Performed By: #### 2 4322-09, 2131-10 ####[facility] LABORATORYCLIA [id number] [place] [id number] [place] HbA1c (Bld)on 04-23-2024 Average glucose Estimated from glycated hemoglobin (Bld) [Mass/Vol] 88 mg/dL Normal [facility] Comment on above: Order Comment: Speci men Type: BLOOD SPECIMENOrdering Facility: [facility] Address: [address] [place] [address] Result Comment: eAG: (Estimated average glucose) is a calculated value from HgbA1c and is telephone services sales representative of the average blood glucose level in the last 2-3 month period. Performed By: #### 5 5454-3 ####[facility] LABCLIA [id number] [place] [address] [place] HbA1c (Bld) [Mass fraction] 4.7 % Normal 4.3-5.6 [facility] Comment on above: Order Comment: Speci men Type: BLOOD SPECIMENOrdering Facility: [facility] Address: [address] [place] [address] Result Comment: [place] Diabetes Association guidelines indicate that patients with HgbA1c in the range 5.7-6.4% are at increased risk for development of diabetes, and intervention by lifestyle modification may be beneficial. HgbA1c greater or equal to 6.5% is considered diagnostic of diabetes. Performed By: #### 5 5454-3 ####[facility] LABCLIA [id number] [place] [id number] [place] Iron and Iron binding capaci ty panelon 04-23-2024 Iron [Mass/Vol] 63 ug/dL Normal 41-186 [facility] Comment on above: Order Comment: Speci men Type: BLOOD SPECIMENOrdering Facility: [facility] Address: [address] [place] [address] Performed By: #### 2 4331-1 ####[facility] LABORATORYCLIA [id number] [id number] [place] [address] [place]#### 3024-7, 46803-8, 3016-3 ####[facility] LABORATORYCLIA [id number] [address] Iron binding capacity [Mass/Vol] 224 ug/dL Low 232-386 [facility] Comment on above: Order Comment: Speci men Type: BLOOD SPECIMENOrdering Facility: [facility] Address: [address] [place] [address] Performed By: #### 2 4331-1 ####[facility] LABORATORYCLIA [id number] [place], [place] [address] [place] [id number] [place] [address] [place]#### 3024-7, 10364-8, 3016-3 ####[facility] LABORATORYCLIA [id number] [place], [place] [address] [place] [address] Iron saturation [Mass fraction] 28.1 % Normal 15.0-57.0 [facility] Comment on above: Order Comment: Speci men Type: BLOOD SPECIMENOrdering Facility: [facility] Address: [address] [place] [address] Performed By: #### 2 4331-1 ####[facility] LABORATORYCLIA [id number] [address] [id number] [place] [address] [place]#### 3024-7, 39170-7, 3016-3 ####[facility] LABORATORYCLIA [id number] [address] STATES OF [facility] Lipid 1996 panelon 5 Cholesterol [Mass/Vol] 155 mg/dL Normal <200 [facility] Comment on above: Order Comment: Speci men Type: BLOOD SPECIMENOrdering Facility: [facility] Address: [address] [place] [address] Result Comment: <200 mg/dL, Desirable 200-239 mg/dL, Borderline high>239 mg/dL, High Performed By: #### 2 4331-1 ####[facility] LABORATORYCLIA [id number] [address] [id number] [place] [address] [place]#### 3024-7, 63858-3, 3016-3 ####[facility] LABORATORYCLIA [id number] [address] [place] Cholesterol in HDL [Mass/Vol] 51 mg/dL Normal >39 [facility] Comment on above: Order Comment: Speci men Type: BLOOD SPECIMENOrdering Facility: [facility] Address: [address] [place] [address] Result Comment: 40-5 9 mg/dL, Acceptable>59 mg/dL, High: Negative risk factor for coronary heart disease<40 mg/dL, Low: Positive risk factor for coronary heart disease Performed By: #### 2 4331-1 ####[facility] [place] LABORATORYCLIA [id number] [address] [id number] [address] OF [place]#### 3024-7, 92529-4, 3016-3 ####[facility] [place] LABORATORYCLIA [id number] [address] Cholesterol in LDL [Mass/Vol] 95 mg/dL Normal <100 [facility] Comment on above: Order Comment: Speci men Type: BLOOD SPECIMENOrdering Facility: [facility] Address: [address] [place] [address] Result Comment: <100 mg/dL, Optimal 100-129 mg/dL, Near optimal/above optimal 130-159 mg/dL, Borderline high 160-189 mg/dL, High>189 mg/dL, Very highSecondary prevention optimal LDL Cholesterol levels are recommended to be < 70 mg/dL Performed By: #### 2 4331-1 ####[facility] [place] LABORATORYCLIA [id number] [address] [id number] [address] [place]#### 3024-7, 66957-6, 3016-3 ####[facility] [place] [place] LABORATORYCLIA [id number] [address] Cholesterol in LDL/Cholesterol in HDL [Mass ratio] 1.86 {ratio} Normal <2.54 [facility] Comment on above: Order Comment: Speci men Type: BLOOD SPECIMENOrdering Facility: [facility] Address: [address] [place] [address] Result Comment: Mery espinoza:1. National Cholesterol Education Program ATP III Guideline At-A-Glance Quick Desk Reference: National Heart, Lung, and Blood [place]. National Institutes of Health. 2001: NIH Publication No. 01-3305.2. An International Atherosclerosis Society position paper: global recommendations for the management of dyslipidemia: executive summary, Atherosclerosis. 2014: 232(2):410-413. Performed By: #### 2 4331-1 ####[facility] LABORATORYCLIA [id number] [address] [id number] [place] [address] [place]#### 3024-7, 76680-1, 3016-3 ####[facility] LABORATORYCLIA [id number] [place] [address] [place] Cholesterol in VLDL [Mass/Vol] 9 mg/dL Normal <30 [facility] Comment on above: Order Comment: Speci men Type: BLOOD SPECIMENOrdering Facility: [facility] Address: [address] [place] [address] Performed By: #### 2 4331-1 ####[facility] LABORATORYCLIA [id number] [address] [place] STATES [facility] [id number] [place] [address] [place]#### 3024-7, 13200-2, 3016-3 ####[facility] LABORATORYCLIA [id number] [place] [address] [place] Cholesterol non HDL [Mass/Vol] 104 mg/dL Normal <130 [facility] Comment on above: Order Comment: Speci men Type: BLOOD SPECIMENOrdering Facility: [facility] Address: [address] [place] [address] Result Comment: <130 mg/dL, Optimal 130-159 mg/dL, Near optimal/above optimal 160-189 mg/dL, Borderline high 190-219 mg/dL, High>219 mg/dL, Very highSecondary prevention optimal non HDL Cholesterol levels are recommended to be <100 mg/dL Performed By: #### 2 4331-1 ####[facility] LABORATORYCLIA [id number] [place] [address] [place] [facility] [id number] [place] [address] [place]#### 3024-7, 22822-0, 3016-3 ####[facility] LABORATORYCLIA [id number] [place] [address] [place] Cholesterol.total/Chol esterol in HDL [Mass ratio] 3.04 {ratio} Normal <5.10 [facility] Comment on above: Order Comment: Speci men Type: BLOOD SPECIMENOrdering Facility: [facility] Address: [address] [place] [address] Performed By: #### 2 4331-1 ####[facility] LABORATORYCLIA [id number] [address] [place] STATES OF [facility] [id number] [place] [address] [place]#### 3024-7, 99639-8, 6-3 ####[facility] LABORATORYCLIA [id number] [place] [address] [place] FASTING TIME 12 hrs Normal [facility] Comment on above: Order Comment: Speci men Type: BLOOD SPECIMENOrdering Facility: [facility] Address: [address] [place] [address] Performed By: #### 2 4331-1 ####[facility]ORYCLIA [id number] [place] [address] [place] [facility] [id number] [place] [address] [place]#### 3024-7, 30199-5, 3016-3 ####[facility]ORYCLIA [id number] [place] [address] [place] Triglyceride [Mass/Vol] 46 mg/dL Normal <150 [facility] Comment on above: Order Comment: Speci men Type: BLOOD SPECIMENOrdering Facility: [facility] Address: [address] [place] [address] Result Comment: <150 mg/dL, Normal 150-199 mg/dL, Borderline high 200-499 mg/dL, High>499 mg/dL, Very high Performed By: #### 2 4331-1 ####[facility]ORYCLIA [id number] [address] [id number] [place] [address] [place]#### 3024-7, 25945-4, 3016-3 ####[facility]ORYCLIA [id number] [place] [address] [place] T4 Free SerPl-mCncon 025 Free T4 [Mass/Vol] 1.2 ng/dL Normal 0.9-1.7 [facility] Comment on above: Order Comment: Speci men Type: BLOOD SPECIMENOrdering Facility: [facility] Address: [address] [place] [address] Performed By: #### 2 4331-1 ####[facility]ORYCLIA [id number] [address] [id number] [place] [address] [place]#### 3024-7, 31719-4, 3016-3 ####[facility]ORYCLIA [id number] [address] [place] TSH SerPl-aCncon 04-23-2024 TSH Qn 2.930 m[IU]/L Normal 0.270-4.200 [facility] Comment on above: Order Comment: Speci men Type: BLOOD SPECIMENOrdering Facility: [facility] Address: [address] [place] [address] Performed By: #### 2 4331-1 ####[facility]ORYCLIA [id number] [address] OF [facility] [id number] [place] [id number] [place]#### 3024-7, 81810-2, 3016-3 ####[facility] LABORATORYCLIA [id number] [place] [address] [place] Vit B12 SerPl-mCncon 025 Cobalamin (Vitamin B12) [Mass/Vol] 608 pg/mL Normal 232-1245 [facility] Comment on above: Order Comment: Speci men Type: BLOOD SPECIMENOrdering Facility: [facility] Address: [address] [place] [address] Performed By: #### 2 4323-8, 2132-9 ####[facility] LABORATORYCLIA [id number] [place] [address] [place] CNPNon 03-26-2024 CNPN Normal [facility] Bacteria Ur Culton Bacteria identified Cx Nom (U) ORGANISM ID: 1 10,000 -<50,000 CFU/ml Normal urogenital paco Normal [facility] Comment on above: Performed By: #### 6 30-4 ####[facility] LABCLIA [id number] [place] [address] [place] URINALYSIS, REFLEX MICROSCOP ICon 03-20-2024 Bilirubin Ql (U) Negative Normal Negative [facility] Comment on above: Order Comment: Speci men Type: URINE SPECIMENOrdering Facility: [facility] Address: [address] [place] [address] Performed By: #### L [id number] ####[facility] LABCLIA [id number] [place] [address] [place] Clarity (Unsp spec) Clear Normal Clear [facility] Comment on above: Order Comment: Speci men Type: URINE SPECIMENOrdering Facility: [facility] Address: [address] [place] [address] Performed By: #### L [id number] ####[facility] LABCLIA [id number] [place] [id number] [place] Color (U) Yellow Normal Yellow [facility] Comment on above: Order Comment: Speci men Type: URINE SPECIMENOrdering Facility: [facility] Address: [address] [place], [place] [address] Performed By: #### L [id number] ####[facility] LABCLIA [id number] [place] [address] [place] Glucose Test strip (U) [Mass/Vol] Negative Normal Negative [facility] Comment on above: Order Comment: Speci men Type: URINE SPECIMENOrdering Facility: [facility] Address: [address] [place] [address] Performed By: #### L [id number] ####[facility] LABCLIA [id number] [place] [address] [place] Hemoglobin Ql (U) Negative Normal Negative [facility] Comment on above: Order Comment: Speci men Type: URINE SPECIMENOrdering Facility: [facility] Address: [address] [place] [address] Performed By: #### L [id number] ####[facility] LABCLIA [id number] [place] [address] [place] Ketones Ql (U) Negative Normal Negative [facility] Comment on above: Order Comment: Speci men Type: URINE SPECIMENOrdering Facility: [facility] Address: [address] [place] [id number] Performed By: #### L [id number] ####[facility] LABCLIA [id number] [place] [address] [place] Leukocyte esterase Test strip Ql (U) Negative Normal Negative [facility] Comment on above: Order Comment: Speci men Type: URINE SPECIMENOrdering Facility: [facility] Address: [facility] [place] [address] Performed By: #### L [id number] ####[facility] LABCLIA [id number] [place] [address] [place] Nitrite Ql (U) Negative Normal Negative [facility] Comment on above: Order Comment: Speci men Type: URINE SPECIMENOrdering Facility: [facility] Address: [address] [place] [address] Performed By: #### L [id number] ####[facility] LABCLIA [id number] [place] [address] [place] pH (U) 6.0 [pH] Normal <8.5 [facility] Comment on above: Order Comment: Speci men Type: URINE SPECIMENOrdering Facility: [facility] Address: [address] [place] [address] Performed By: #### L [id number] ####[facility] LABCLIA [id number] [place] [address] [place] Protein (U) [Mass/Vol] Negative Normal Negative [facility] Comment on above: Order Comment: Speci men Type: URINE SPECIMENOrdering Facility: [facility] Address: [address] [place] [address] Performed By: #### L [id number] ####[facility] LABCLIA [id number] [place] [address] [place] Specific gravity (U) [Rel density] 1.021 Normal 1.005-1.030 [facility] Comment on above: Order Comment: Speci men Type: URINE SPECIMENOrdering Facility: [facility] Address: [address] [place] [address] Performed By: #### L [id number] ####[facility] LABCLIA [id number] [place] [address] [place] Urobilinogen Ql (U) 0.2 EU/dL Normal 0.2-1.0 EU/dL [facility] Comment on above: Order Comment: Speci men Type: URINE SPECIMENOrdering Facility: [facility] Address: [address] [place] [address] Performed By: #### L [id number] ####[facility] LABCLIA [id number] [facility] [place] [address] [place] CNPNon 03-18-2024 CNPN Normal [facility] Orthopedic Visit Reporton Orthopedic Visit Report [facility] [address] [place] [address] [address] [place] [address] OFFICE VISIT Date of Service: 03/10/24 MR#: [id number] Acct: [id number] Name: MEGGAN ARITA Rep #: [id number] : 1960 Provider: Dr. Sam Toussaint so, DO Age/Sex: 63/F Location: [facility] [place] Status: Signed Intake Vital Signs 12/26/23 13:25 Height 5 ft 8 in Weight: 345 lb BMI 52.4 BP 141/83 H Blood Pressure Location Rt brachial Position Sitting Respiration 17 Pulse 77 Pulse Source Monitor Pulse Oximetry (%) 99 Oxygen Delivery Method room air Intake Visit Reasons: BILATERAL KNEES Chief Complaint: Bilateral Knees - seeking injection Accompanied by: Son Is patient in pain?: Yes Pain scale (1-10): 8 Allergies codeine Allergy (Verified 03/10/24 09:48) Nausea/Vom/Diarrhea iodine Allergy (Verified 03/10/24 09:48) Swelling latex Allergy (Verified 03/10/24 09:48) Shortness of breath meloxicam Allergy (Verified 03/10/24 09:48) Rash Penicillins Allergy (Verified 03/10/24 09:48) Shortness of breath tositumomab Allergy (Verified 03/10/24 09:48) NEEDS FOLLOW-UP hydrocodone bitartrate (From Vicodin) Adverse Reaction (Verified 03/10/24 09:48) Nausea/Vom/Diarrhea prednisone Adverse Reaction (Verified 03/10/24 09:48) Other Medications ???Medication ???Instructions ???Recorded ???Confirmed ???Type albuterol sulfate 2.5 mg/3 mL 2.5 mg inhalation Q6HWA.RT PRN 11/23/12 03/10/24 History (0.083 %) solution for nebulization Asthma acetaminophen 325 mg tablet 650 mg (2 x 325 mg) PO Q6H PRN PRN 08/15/21 03/10/24 Rx (Tylenol) Pain Score 1-10/Temp > 100.7 F #0 tabs ascorbic acid (vitamin C) 500 mg 500 mg PO BIDCM #0 tabs 08/15/21 03/10/24 Rx tablet ferrous sulfate 325 mg (65 mg 325 mg PO BIDCM #0 tabs 08/15/21 03/10/24 Rx iron) tablet (FeroSul) diclofenac sodium 1 % topical gel 1 ea topical PRN PRN Pain 11/18/21 03/10/24 History lorazepam 1 mg tablet 1 mg PO BID PRN PRN Anxiety #5 tabs 11/20/21 03/10/24 Rx fluticasone propionate 50 2 spray DAILY PRN Sinus Symptoms 01/30/22 03/10/24 Rx mcg/actuation nasal #16 grams spray,suspension potassium chloride 20 mEq 20 meq PO BIDCM #14 tabs 08/19/22 03/10/24 Rx tablet,extended release(part/cryst) (Klor-Con M) albuterol sulfate 90 mcg/actuation 2 puff inhalation Q4H PRN 03/18/23 03/10/24 Rx aerosol inhaler (Ventolin HFA) shortness of breath or wheezing #18 grams bupropion HCl 300 mg 24 hr tablet, 300 mg PO QDAY 06/30/23 03/10/24 History extended release cholecalciferol (vitamin D3) 50 50 mcg PO QDAY 06/30/23 03/10/24 History mcg (2,000 unit) capsule cyclobenzaprine 5 mg tablet 5 mg PO TID PRN 06/30/23 03/10/24 History furosemide 40 mg tablet 40 mg PO QDAY PRN 06/30/23 03/10/24 History losartan 50 mg tablet 100 mg PO DAILY 06/30/23 03/10/24 History metolazone 5 mg tablet 5 mg PO QDAY 06/30/23 03/10/24 History mometasone-formoterol HFA 200 2 puff inhalation BID 06/30/23 03/10/24 History mcg-5 mcg/actuation aerosol inhaler (Dulera) montelukast 10 mg tablet 10 mg PO QDAY 06/30/23 03/10/24 History polyethylene glycol 3350 17 gram 17 g PO DAILY PRN 06/30/23 03/10/24 History oral powder packet (Miralax) tirzepatide 2.5 mg/0.5 mL 5 mg subcut 06/30/23 03/10/24 History subcutaneous pen injector (Mounoscarro) venlafaxine 75 mg capsule,extended 75 mg PO QDAY 06/30/23 03/10/24 History release 24 hr metronidazole 500 mg tablet 500 mg PO Q8H #21 tabs 08/04/23 03/10/24 Rx oxycodone-acetaminophen 5 mg-325 1 tab PO Q6H PRN PRN Pain 3 days 08/04/23 03/10/24 Rx mg tablet #12 TABLETS omeprazole 40 mg capsule,delayed 40 mg PO QDAY #30 caps 12/26/23 03/10/24 Rx release sucralfate 1 gram tablet 1 g PO QACHS #120 tabs 12/26/23 03/10/24 Rx PFSH Medical History Hypokalemia Asymptomatic bacteriuria Gastroenteritis Chronic respiratory failure with hypoxia and hypercapnia Anemia Anxiety Sleep apnea CPAP (continuous positive airway pressure) dependence Asthma Type 2 diabetes mellitus Obesity Hypertension Surgical History History of ankle surgery Previous section History of cholecystectomy Family History Other Diabetes Heart disease Hypertension Social History household members: other Smoking Status: Never smoker alcohol intake: never substance use type: does not use HPI BILATERAL KNEES Details: This documentation accurately reflects the service provided and the decisions made by me, Dr. Sam Goodson, DO 03/10/24 0751. Part of today???s visit was documented by Ana Vazquez ATC, (more content not included)... Normal [facility] CNPNon 02-27-2024 CNPN Normal [facility] Bacteria Ur Culton Bacteria identified Cx Nom (U) Abnormal [facility] Comment on above: Performed By: #### 6 30-4 ####[facility] LABCLIA [id number] [address] [place] Urinalysis complete panel (U )on 02-23-2024 Bacteria LM.HPF (Urine sed) [#/Area] Negative Normal Negative [facility] Comment on above: Order Comment: Speci men Type: URINE SPECIMENOrdering Facility: [facility] Address: [address] [place] [address] Performed By: #### 2 4356-8 ####[facility] LABCLIA [id number] [place] [address] [place] Bilirubin Ql (U) Negative Normal Negative [facility] Comment on above: Order Comment: Speci men Type: URINE SPECIMENOrdering Facility: [facility] Address: [address] [place] [address] Performed By: #### 2 4356-8 ####[facility] LABCLIA [id number] [address] [place] Clarity (Unsp spec) Clear Normal Clear [facility] Comment on above: Order Comment: Speci men Type: URINE SPECIMENOrdering Facility: [facility] Address: [address] [place] [address] Performed By: #### 2 4356-8 ####[facility] LABCLIA [id number] [address] STATES OF [facility] Color (U) Yellow Normal Yellow [facility] Comment on above: Order Comment: Speci men Type: URINE SPECIMENOrdering Facility: [facility] Address: [address] [place] [address] Performed By: #### 2 4356-8 ####[facility] LABCLIA [id number] [address] [place] Epithelial cells LM.HPF (Urine sed) [#/Area] None Seen Normal [facility] Comment on above: Order Comment: Speci men Type: URINE SPECIMENOrdering Facility: [facility] Address: [address] [place] [address] Performed By: #### 2 4356-8 ####[facility] LABCLIA [id number] [place] [address] [place] Glucose Test strip (U) [Mass/Vol] Negative Normal Negative [facility] Comment on above: Order Comment: Speci men Type: URINE SPECIMENOrdering Facility: [facility] Address: [address] [place] [address] Performed By: #### 2 4356-8 ####[facility] LABCLIA [id number] [place] [address] [place] Hemoglobin Ql (U) 1+ Abnormal Negative [facility] Comment on above: Order Comment: Speci men Type: URINE SPECIMENOrdering Facility: [facility] Address: [address] [place] [address] Performed By: #### 2 4356-8 ####[facility] LABCLIA [id number] [place] [address] [place] Hyaline casts (Urine sed) [#/Area] 1-3 /LPF Abnormal 0 /LPF [facility] Comment on above: Order Comment: Speci men Type: URINE SPECIMENOrdering Facility: [facility] Address: [address] [place] [address] Performed By: #### 2 4356-8 ####[facility] LABCLIA [id number] [place] [address] [place] Ketones Ql (U) Negative Normal Negative [facility] Comment on above: Order Comment: Speci men Type: URINE SPECIMENOrdering Facility: [facility] Address: [address] [place] [address] Performed By: #### 2 4356-8 ####[facility] LABCLIA [id number] [place] [address] [place] Leukocyte esterase Test strip Ql (U) 1+ Abnormal Negative [facility] Comment on above: Order Comment: Speci men Type: URINE SPECIMENOrdering Facility: [facility] Address: [address] [place] [address] Performed By: #### 2 4356-8 ####[facility] LABCLIA [id number] [place] [address] [place] Nitrite Ql (U) Negative Normal Negative [facility] Comment on above: Order Comment: Speci men Type: URINE SPECIMENOrdering Facility: [facility] Address: [address] [place] [address] Performed By: #### 2 4356-8 ####[facility] LABCLIA [id number] [place] [address] [place] pH (U) 5.5 [pH] Normal <8.5 [facility] Comment on above: Order Comment: Speci men Type: URINE SPECIMENOrdering Facility: [facility] Address: [address] [place] [address] Performed By: #### 2 4356-8 ####[facility] LABCLIA [id number] [place] [address] [place] Protein (U) [Mass/Vol] Trace Abnormal Negative [facility] Comment on above: Order Comment: Speci men Type: URINE SPECIMENOrdering Facility: [facility] Address: [address] [place] [address] Performed By: #### 2 4356-8 ####[facility] LABCLIA [id number] [place] [address] [place] RBC LM.HPF (Urine sed) [#/Area] 11-20 /HPF Abnormal 0-2 /HPF [facility] Comment on above: Order Comment: Speci men Type: URINE SPECIMENOrdering Facility: [facility] Address: [address] [place] [address] Performed By: #### 2 4356-8 ####[facility] LABIA [id number] [place] [address] [place] Specific gravity (U) [Rel density] 1.015 Normal 1.005-1.030 [facility] Comment on above: Order Comment: Speci men Type: URINE SPECIMENOrdering Facility: [facility] Address: [address] [place] [address] Performed By: #### 2 4356-8 ####[facility] [id number] [place] [address] [place] Urobilinogen Ql (U) 0.2 EU/dL Normal 0.2-1.0 EU/dL [facility] Comment on above: Order Comment: Speci men Type: URINE SPECIMENOrdering Facility: [facility] Address: [address] [place] [address] Performed By: #### 2 4356-8 ####[facility] [id number] [place] [address] [place] WBC LM.HPF (Urine sed) [#/Area] /[HPF] Abnormal 0-5 /HPF [facility] Comment on above: Order Comment: Speci men Type: URINE SPECIMENOrdering Facility: [facility] Address: [address] [place] [address] Performed By: #### 2 4356-8 ####[facility] [id number] [place] [address] [place] CNPNon 12-31-2023 CNPN Normal [facility] Surgery Visit Reporton 12-25 Surgery Visit Report [facility] [address] [place] [address] [address] [place] [address] OFFICE VISIT Date of Service: 12/26/23 MR#: [id number] Acct: [id number] Name: MEGGAN ARITA Rep #: [id number] : 1960 Provider: Dr. Raysa araujo MD Age/Sex: 63/F Location: [facility] Status: Signed with Addenda ADDENDUM by Dr. Raysa Knox MD on 12/27/23 at 1015 Office Visits / Consults: [id number] OV L4 Est 30min (incorrect code previous--pt is established) 12/27/23 1015 Date Raysa Knox MD cc: Dr. Erica Cannon MD * Signed Intake Vital Signs 08/04/23 14:04 12/26/23 13:25 Height 5 ft 8 in 5 ft 8 in Weight: 345 lb BMI 52.4 BP 141/83 H Blood Pressure Location Rt brachial Position Sitting Respiration 17 Pulse 77 Pulse Source Monitor Pulse Oximetry (%) 99 Oxygen Delivery Method room air Intake Visit Reasons: Lower Left Quadrant abdominal pain Chief Complaint: lower left quadrant abdominal pain Is patient in pain?: Yes Allergies codeine Allergy (Verified 12/26/23 13:26) Nausea/Vom/Diarrhea iodine Allergy (Verified 12/26/23 13:26) Swelling latex Allergy (Verified 12/26/23 13:26) Shortness of breath meloxicam Allergy (Verified 12/26/23 13:26) Rash Penicillins Allergy (Verified 12/26/23 13:26) Shortness of breath tositumomab Allergy (Verified 12/26/23 13:26) NEEDS FOLLOW-UP hydrocodone bitartrate (From Vicodin) Adverse Reaction (Verified 12/26/23 13:26) Nausea/Vom/Diarrhea prednisone Adverse Reaction (Verified 12/26/23 13:26) Other Medications ???Medication ???Instructions ???Recorded ???Confirmed ???Type albuterol sulfate 2.5 mg/3 mL 2.5 mg inhalation Q6HWA.RT PRN 11/23/12 12/26/23 History (0.083 %) solution for nebulization Asthma acetaminophen 325 mg tablet 650 mg (2 x 325 mg) PO Q6H PRN PRN 08/15/21 12/26/23 Rx (Tylenol) Pain Score 1-10/Temp > 100.7 F #0 tabs ascorbic acid (vitamin C) 500 mg 500 mg PO BIDCM #0 tabs 08/15/21 12/26/23 Rx tablet ferrous sulfate 325 mg (65 mg 325 mg PO BIDCM #0 tabs 08/15/21 12/26/23 Rx iron) tablet (FeroSul) diclofenac sodium 1 % topical gel 1 ea topical PRN PRN Pain 11/18/21 12/26/23 History lorazepam 1 mg tablet 1 mg PO BID PRN PRN Anxiety #5 tabs 11/20/21 12/26/23 Rx fluticasone propionate 50 2 spray DAILY PRN Sinus Symptoms 01/30/22 12/26/23 Rx mcg/actuation nasal #16 grams spray,suspension potassium chloride 20 mEq 20 meq PO BIDCM #14 tabs 08/19/22 12/26/23 Rx tablet,extended release(part/cryst) (Klor-Con M) albuterol sulfate 90 mcg/actuation 2 puff inhalation Q4H PRN 03/18/23 12/26/23 Rx aerosol inhaler (Ventolin HFA) shortness of breath or wheezing #18 grams bupropion HCl 300 mg 24 hr tablet, 300 mg PO QDAY 06/30/23 12/26/23 History extended release cholecalciferol (vitamin D3) 50 50 mcg PO QDAY 06/30/23 12/26/23 History mcg (2,000 unit) capsule cyclobenzaprine 5 mg tablet 5 mg PO TID PRN 06/30/23 12/26/23 History furosemide 40 mg tablet 40 mg PO QDAY PRN 06/30/23 12/26/23 History losartan 50 mg tablet 100 mg PO DAILY 06/30/23 12/26/23 History metolazone 5 mg tablet 5 mg PO QDAY 06/30/23 12/26/23 History mometasone-formoterol HFA 200 2 puff inhalation BID 06/30/23 12/26/23 History mcg-5 mcg/actuation aerosol inhaler (Dulera) montelukast 10 mg tablet 10 mg PO QDAY 06/30/23 12/26/23 History polyethylene glycol 3350 17 gram 17 g PO DAILY PRN 06/30/23 12/26/23 History oral powder packet (Miralax) tirzepatide 2.5 mg/0.5 mL 5 mg subcut 06/30/23 12/26/23 History subcutaneous pen injector (Dania) venlafaxine 75 mg capsule,extended 75 mg PO QDAY 06/30/23 12/26/23 History release 24 hr metronidazole 500 mg tablet 500 mg PO Q8H #21 tabs 08/04/23 12/26/23 Rx oxycodone-acetaminophen 5 mg-325 1 tab PO Q6H PRN PRN Pain 3 days 08/04/23 12/26/23 Rx mg tablet #12 TABLETS omeprazole 40 mg capsule,delayed 40 mg PO QDAY #30 caps 12/26/23 12/26/23 Rx release sucralfate 1 gram tablet 1 g PO QACHS #120 tabs 12/26/23 12/26/23 Rx PFSH Medical History Hypokalemia Asymptomatic bacteriuria Gastroenteritis Chronic respiratory failure with hypoxia and hypercapnia Anemia Anxiety Sleep apnea CPAP (continuous positive airway pressure) dependence Asthma Type 2 diabetes mellitus Obesity Hypertension Surgical History History of ankle surgery Previous section History of cholecystectomy Family History Other Diabetes Heart disease Hypertension Social History household members: other Smoking (more content not included)... 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 c/o knee pain. [facility] UA DIP, URINE (POC)on 2023 BILIRUBIN UA (POCT) Negative Negative [facility] CLARITY UA (POCT) [facility] COLOR UA (POCT) Dark yellow [facility] GLUCOSE UA (POCT) Negative Negative mg/dL [facility] Hemoglobin Ql (U) Trace-lysed Abnormal Negative [facility] Interpretation and review of laboratory results Abnormal [facility] KETONE UA (POCT) Negative Negative mg/dL [facility] LEUKOCYTES UA (POCT) Negative [facility] NITRITE UA (POCT) Negative [facility] PH UA (POCT) 5.5 4.5 - 8.0 [facility] Protein Ql (U) Negative Negative mg/dL [facility] SPECIFIC GRAVITY UA (POCT) 1.020 1.005 - 1.030 [facility] UROBILINOGEN UA (POCT) 0.2 Carmen l E.U./dL [facility] Location:[address], [address] [place] [address] POINT OF CARE [facility] AMYLASE BLDon 01-01-2023 Amylase [Catalytic activity/Vol] 57 U/L 30 - 104 U/L [facility] CBC W Auto Differential pane l (Bld)on 01-01-2023 Basophils (Bld) [#/Vol] 0.04 10*3/uL <0.11 k/uL [facility] Basophils/100 WBC (Bld) 0.6 % [facility] Differential cell count method Nom (Bld) Auto [facility] Eosinophils (Bld) [#/Vol] 0.18 10*3/uL <0.46 k/uL [facility] Eosinophils/100 WBC (Bld) 2.7 % [facility] Erythrocyte distribution width (RBC) [Ratio] 12.3 % 11.5 - 15.0 % [facility] Hematocrit (Bld) [Volume fraction] 35.7 % Low 36.0 - 46.0 % [facility] Hemoglobin (Bld) [Mass/Vol] 10.3 g/dL Low 11.5 - 15.5 g/dL [facility] Immature granulocytes (Bld) [#/Vol] <0.10 k/uL [facility] Immature granulocytes/100 WBC (Bld) 0.1 % [facility] Lymphocytes (Bld) [#/Vol] 0.90 10*3/uL Low 1.00 - 4.00 k/uL [facility] Lymphocytes/100 WBC (Bld) 13.4 % [facility] MCH (RBC) [Entitic mass] 29.0 pg 26.0 - 34.0 pg [facility] MCHC (RBC) [Mass/Vol] 28.9 g/dL Low 30.5 - 36.0 g/dL [facility] MCV (RBC) [Entitic vol] 100.6 fL High 80.0 - 100.0 fL [facility] Monocytes (Bld) [#/Vol] 0.64 10*3/uL <0.87 k/uL [facility] Monocytes/100 WBC (Bld) 9.5 % [facility] Neutrophils (Bld) [#/Vol] 4.95 10*3/uL 1.45 - 7.50 k/uL [facility] Neutrophils/100 WBC (Bld) 73.7 % [facility] Nucleated RBC (Bld) [#/Vol] <0.01 k/uL [facility] Nucleated RBC/100 WBC (Bld) [Ratio] 0.0 /100 WBC [facility] Platelet mean volume (Bld) [Entitic vol] 10.7 fL 9.0 - 12.7 fL [facility] Platelets (Bld) [#/Vol] 261 10*3/uL 150 - 400 k/uL [facility] RBC (Bld) [#/Vol] 3.55 10*6/uL Low 3.90 - 5.2 0 m/uL [facility] WBC (Bld) [#/Vol] 6.72 10*3/uL 3.70 - 11.00 k/uL [facility] Comprehensive metabolic 2000 panelon 01-01-2023 Albumin [Mass/Vol] 3.8 g/dL Low 3.9 - 4.9 g/dL [facility] ALP [Catalytic activity/Vol] 107 U/L 34 - 123 U/L [facility] ALT [Catalytic activity/Vol] 10 U/L 7 - 38 U/L [facility] Anion gap [Moles/Vol] 10 mmol/L 9 - 18 mmol/L [facility] AST [Catalytic activity/Vol] 14 U/L 13 - 35 U/L [facility] Bilirubin [Mass/Vol] 0.6 mg/dL 0.2 - 1 .3 mg/dL [facility] Calcium [Mass/Vol] 9.3 mg/dL 8.5 - 10. 2 mg/dL [facility] Chloride [Moles/Vol] 104 mmol/L 97 - 10 5 mmol/L [facility] CO2 [Moles/Vol] 28 mmol/L 22 - 30 mmol/L [facility] Creatinine [Mass/Vol] 1.33 mg/dL High 0.58 - 0.96 mg/dL [facility] Estimated Glomerular Filtration Rate 45 mL/min/1.73m Low >=60 mL/min/1.73 m [facility] Glucose [Mass/Vol] 86 mg/dL 74 - 99 mg/dL [facility] Potassium [Moles/Vol] 3.8 mmol/L 3.7 - 5.1 mmol/L [facility] Protein [Mass/Vol] 7.9 g/dL 6.3 - 8.0 g/dL [facility] Sodium [Moles/Vol] 142 mmol/L 136 - 144 mmol/L [facility] Urea nitrogen [Mass/Vol] 15 mg/dL 7 - 21 mg/dL [facility] LIPASE BLDon 01-01-2023 Lipase [Catalytic activity/Vol] 23 U/L 16 - 61 U/L [facility] CBC W Auto Differential pane l (Bld)on 11-05-2022 Basophils (Bld) [#/Vol] 0.05 10*3/uL <0.11 k/uL [facility] Basophils/100 WBC (Bld) 0.8 % [facility] Differential cell count method Nom (Bld) Auto [facility] Eosinophils (Bld) [#/Vol] 0.30 10*3/uL <0.46 k/uL [facility] Eosinophils/100 WBC (Bld) 5.1 % [facility] Erythrocyte distribution width (RBC) [Ratio] 11.8 % 11.5 - 15.0 % [facility] Hematocrit (Bld) [Volume fraction] 33.5 % Low 36.0 - 46.0 % [facility] Hemoglobin (Bld) [Mass/Vol] 9.9 g/dL Low 11.5 - 15.5 g/dL [facility] Immature granulocytes (Bld) [#/Vol] <0.10 k/uL [facility] Immature granulocytes/100 WBC (Bld) 0.3 % [facility] Lymphocytes (Bld) [#/Vol] 1.45 10*3/uL 1.00 - 4.00 k/uL [facility] Lymphocytes/100 WBC (Bld) 24.5 % [facility] MCH (RBC) [Entitic mass] 29.2 pg 26.0 - 34.0 pg [facility] MCHC (RBC) [Mass/Vol] 29.6 g/dL Low 30.5 - 36.0 g/dL [facility] MCV (RBC) [Entitic vol] 98.8 fL 80.0 - 100.0 fL [facility] Monocytes (Bld) [#/Vol] 0.61 10*3/uL <0.87 k/uL [facility] Monocytes/100 WBC (Bld) 10.3 % [facility] Neutrophils (Bld) [#/Vol] 3.48 10*3/uL 1.45 - 7.50 k/uL [facility] Neutrophils/100 WBC (Bld) 59.0 % [facility] Nucleated RBC (Bld) [#/Vol] <0.01 k/uL [facility] Nucleated RBC/100 WBC (Bld) [Ratio] 0.0 /100 WBC [facility] Platelet mean volume (Bld) [Entitic vol] 11.2 fL 9.0 - 12.7 fL [facility] Platelets (Bld) [#/Vol] 234 10*3/uL 150 - 400 k/uL [facility] RBC (Bld) [#/Vol] 3.39 10*6/uL Low 3.90 - 5.2 0 m/uL [facility] WBC (Bld) [#/Vol] 5.91 10*3/uL 3.70 - 11.00 k/uL [facility] HbA1c (Bld)on 11-05-2022 Average glucose Estimated from glycated hemoglobin (Bld) [Mass/Vol] 94 mg/dL [facility] HbA1c (Bld) [Mass fraction] 4.9 % 4.3 - 5.6 % [facility] HbA1c (Bld)on 08-30-2022 Average glucose Estimated from glycated hemoglobin (Bld) [Mass/Vol] 88 mg/dL [facility] HbA1c (Bld) [Mass fraction] 4.7 % 4.3 - 5.6 % [facility] Basic metabolic 2000 panelon 08-22-2022 Anion gap [Moles/Vol] 9 mmol/L 9 - 18 mmol/L [facility] Calcium [Mass/Vol] 8.2 mg/dL Low 8.5 - 10. 2 mg/dL [facility] Chloride [Moles/Vol] 116 mmol/L High 97 - 10 5 mmol/L [facility] CO2 [Moles/Vol] 17 mmol/L Low 22 - 30 mmol/L [facility] Creatinine [Mass/Vol] 1.48 mg/dL High 0.58 - 0.96 mg/dL [facility] Estimated Glomerular Filtration Rate 40 mL/min/1.73m Low >=60 mL/min/1.73 m [facility] Glucose [Mass/Vol] 102 mg/dL High 74 - 99 mg/dL [facility] Potassium [Moles/Vol] 3.9 mmol/L 3.7 - 5.1 mmol/L [facility] Sodium [Moles/Vol] 142 mmol/L 136 - 144 mmol/L [facility] Urea nitrogen [Mass/Vol] 18 mg/dL 7 - 21 mg/dL [facility] Absolute lymphocyte countOrd ered By: Dr. Mendoza on 08-19-2022 Lymphocytes Auto (Unsp spec) [#/Vol] 3.96 10*3/uL 0.83-4.51 [facility] Basophil percentageOrdered B y: Dr. Mendoza on 08-19-2022 Basophil percentage Not Reportable [facility] Bilirubin [Mass/Vol] 0.40 mg/dL 0.20-1.00 [facility] Comment on above: For patients on eltr ombopag therapy, use of Dimension [place] TBIL is not recommended. Chloride [Moles/Vol] 124 mmol/L 98-107 [facility] Glucose [Mass/Vol] 86 mg/dL 74-106 [facility] Neutrophils (Bld) [#/Vol] 6.6 10*3/uL 2.0-7.7 [facility] Potassium [Moles/Vol] 2.9 mmol/L 3.5-5.1 [facility] Protein [Mass/Vol] 5.7 g/dL 6.4-8.2 [facility] Sodium [Moles/Vol] 144 mmol/L 136-145 [facility] WBC (Bld) [#/Vol] 16.5 10*3/uL 4.4-11.0 [facility] Blood band neutrophil count as percentage of total leukocytesOrdered By: Dr. Mendoza on 08-19-2022 Band form neutrophils/100 WBC (Bld) 10 % 0-5 [facility] Blood eosinophils/100 leukoc ytesOrdered By: Dr. Mendoza on 08-19-2022 Eosinophils/100 WBC (Bld) 17 % 0-5 [facility] Blood erythrocytes count (nu mber/volume)Ordered By: Dr. Mendoza on 08-19-2022 RBC (Bld) [#/Vol] 3.84 10*6/uL 4.2-5.4 [facility] Blood hemoglobin measurement (mass/volume)Ordered By: Dr. Mendoza on 08-19-2022 Hemoglobin (Bld) [Mass/Vol] 11.6 g/dL 12.0-15.0 [facility] Blood lymphocytes/100 leukoc ytesOrdered By: Dr. Mendoza on 08-19-2022 Lymphocytes/100 WBC (Bld) 24 % 19-41 [facility] Blood monocytes/100 leukocyt esOrdered By: Dr. Mendoza on 08-19-2022 Monocytes/100 WBC (Bld) 16 % 0-10 [facility] Blood platelet adequacy dete ction by light microscopyOrdered By: Dr. Mendoza on 08-19-2022 Platelets LM Ql (Bld) ADEQUATE ADEQ [facility] Blood platelet mean volumeOr dered By: Dr. Mendoza on 08-19-2022 Platelet mean volume (Bld) [Entitic vol] 10.5 fL 6.2-12.0 [facility] Blood segmented neutrophils/ [address]: [address] Mendoza on 08-19-2022 Segmented neutrophils/100 WBC (Bld) 30 % 47-70 [facility] Determination of erythrocyte mean corpuscular volume (MCV)Ordered By: Dr. Mendoza on 08-19-2022 MCV (RBC) [Entitic vol] 94.8 fL 81-99 [facility] Glucose Glucometer (BldC) [M ass/Vol]Ordered By: Dr. Pizarro on 08-19-2022 Glucose [Mass/Vol] 95 mg/dL 74-106 [facility] Comment on above: MANAGEMENT OF PATIEN T CARE PER NURSING PROTOCOL Hematocrit Auto (Bld) [Volum e fraction]Ordered By: Dr. Menodza on 08-19-2022 Hematocrit (Bld) [Volume fraction] 36.4 % 37-47 [facility] Laboratory - Chemistry and C hemistry - challengeOrdered By: Dr. Mendoza on 08-19-2022 ALP [Catalytic activity/Vol] 86 U/L 45-117 [facility] ALT [Catalytic activity/Vol] 17 U/L 13-56 [facility] CO2 [Moles/Vol] 15.0 mmol/L 21.0-32.0 [facility] Globulin (S) [Mass/Vol] 3.6 g/dL 2.2-4.2 [facility] Urea nitrogen/Creatinine [Mass ratio] 10.8 mg/mg 10-20 [facility] Laboratory - Hematology and Cell countsOrdered By: Dr. Mendoza on 08-19-2022 Erythrocyte distribution width (RBC) [Entitic vol] 43.8 fL 35.1-43.9 [facility] Erythrocyte distribution width (RBC) [Ratio] 12.6 % 11.6-14.6 [facility] MCH (RBC) [Entitic mass] 30.2 pg 27.0-32.0 [facility] Myelocytes/100 WBC (Bld) 3 % 0-0 [facility] MCHC Auto (RBC) [Mass/Vol]Or dered By: Dr. Mendoza on 08-19-2022 MCHC (RBC) [Mass/Vol] 31.9 g/dL 32-36 [facility] No Panel InformationOrdered By: Dr. Mendoza on 08-19-2022 Atypical Lymphocytes 1+ % [facility] Estimated Creatinine Clearance Calc 35.23 ml/min [facility] Estimated GFR (MDRD) Amer 40 mL/min >60 [facility] Comment on above: GFR Calc Estimated GFR (MDRD) Non-Af Amer 33 mL/min >60 [facility] Comment on above: Non- GFR Calc Platelets bldOrdered By: Dr. Mendoza on 08-19-2022 Platelets (Bld) [#/Vol] 249 10*3/uL 150-450 [facility] RBC morphologyOrdered By: Dr Abhi Mendoza on 08-19-2022 RBC morphology finding Nom (Bld) NORM C+C NORMAL NORM C&C [facility] Review by pathologistOrdered By: Dr. Mendoza on 08-19-2022 Pathologist review Kevin (Unsp spec) [Interp] Reviewed [facility] Comment on above: Previous reported re sult: Monik owens Edited by: RGOOD on 08/19/22:1301Leukocytosis with Neutrophilic left shift and absolute eosinophilia.Clinical correlation necessary.Ian Sanon M.D. 08/19/22 AMENDED REPORT 08/19/22 1301 PATH REV previously reported as: Monik owens Serum or plasma albumin alicia urement (mass/volume)Ordered By: Dr. Mendoza on 08-19-2022 Albumin [Mass/Vol] 2.1 g/dL 3.2-5.0 [facility] Serum or plasma albumin/glob ulin mass ratioOrdered By: Dr. Mendoza on 08-19-2022 Albumin/Globulin [Mass ratio] 0.6 {ratio} 0.9-2.4 [facility] Serum or plasma calcium alicia urement (mass/volume)Ordered By: Dr. Mendoza on 08-19-2022 Calcium [Mass/Vol] 7.8 mg/dL 8.5-10.1 [facility] Serum or plasma creatinine m easurement (mass/volume)Ordered By: Dr. Mendoza on 08-19-2022 Creatinine [Mass/Vol] 1.67 mg/dL 0.55-1.02 [facility] Comment on above: The validity of the calculated GFR & GFRAA in patients over 70 years has not been determined. Clinical correlation is essential. Serum or plasma urea nitroge n measurement (mass/volume)Ordered By: Dr. Mendoza on 08-19-2022 Urea nitrogen [Mass/Vol] 18 mg/dL 7-18 [facility] Thin prep Papanicolaou smear with manual screeningOrdered By: Dr. Mendoza on 08-19-2022 Thin prep Papanicolaou smear with manual screening 17 U/L 15-37 [facility] Thin prep Papanicolaou smear with manual screening 5 5-15 [facility] Total cell countOrdered By: Dr. Mendoza on 08-19-2022 Cells counted Molgen (Bld/Tiss) [#] 100 MANUAL DIFF [facility] Basophil percentageOrdered B y: Dr. Mendoza on 08-18-2022 Basophils/100 WBC (Bld) 1.0 % 0-1 [facility] Eosinophils/100 WBC (Bld) 12.5 % 0-5 [facility] Blood lymphocytes/100 leukoc ytesOrdered By: Dr. Mendoza on 08-18-2022 Lymphocytes/100 WBC (Bld) 35.2 % 19-41 [facility] Blood manual differential co mment interpretation (narrative result)Ordered By: Dr. Mendoza on 08-18-2022 Manual differential comment Kevin (Bld) [Interp] SCANNED [facility] Blood monocytes/100 leukocyt esOrdered By: Dr. Mendoza on 08-18-2022 Monocytes/100 WBC (Bld) 20.5 % 0-10 [facility] Laboratory - Hematology and Cell countsOrdered By: Dr. Mendoza on 08-18-2022 Immature granulocytes/100 WBC (Bld) 3.400 % 0.0-0.9 [facility] Comment on above: IG% - Immature Granu locytes (promyelocytes, myelocytes and metamyelocytes) > 1% indicates that a LEFT SHIFT is Present. Nucleated RBC/100 WBC (Bld) [Ratio] 0.2 % 0-5 [facility] No Panel InformationOrdered By: Dr. Mendoza on 08-17-2022 Reactive Lymphocytes 1+ [facility] Basophil percentageOrdered B y: Cally Coleman on 08-16-2022 Basophil percentage 3.9 mg/dL 2.5-4.9 [facility] Culture, urineOrdered By: Dr Abhi Mcgee on 08-16-2022 Bacteria identified Cx Nom (U) Escherichia coli [facility] Bacteria identified Cx Nom (U) Escherichia coli#2 [facility] Laboratory - Chemistry and C hemistry - challengeOrdered By: Dr. Hamm on 08-16-2022 Lipase [Catalytic activity/Vol] 23 U/L 13-75 [facility] Comment on above: Please note:LIPASE r evised reference range effective 22. New Lipase methodology. Expected to produce lower values than the previous assay method. NEW Reference Range: 13 - 75 U/L Laboratory - Chemistry and C hemistry - challengeOrdered By: Dr. Mendoza on 08-16-2022 Magnesium [Mass/Vol] 2.1 mg/dL 1.6-2.6 [facility] Erythrocyte sedimentation ra teOrdered By: Dr. Mendoza on 08-15-2022 ESR (Bld) [Velocity] 20 mm/h 0-30 [facility] Laboratory - Chemistry and C hemistry - challengeOrdered By: Dr. Mendoza on 08-15-2022 Sodium (U) [Moles/Vol] 6 mmol/L Not Establ. [facility] No Panel InformationOrdered By: Dr. Mendoza on 08-15-2022 Urine Potassium 23.0 mmol/L Not Establ. [facility] Urine Urea Nitrogen 175 mg/dL NO RANGE EST. [facility] No Panel InformationOrdered By: Dr. Perez on 08-15-2022 Thyroid Stimulating Hormone (TSH) 3.01 uIU/mL 0.358-3.74 [facility] Plasma epinephrine measureme nt (mass/volume)Ordered By: Dr. Perez on 08-15-2022 EPINEPHrine (P) [Mass/Vol] <15 pg/mL 0-62 [facility] Plasma norepinephrine measur ement (mass/volume)Ordered By: Dr. Perez on 08-15-2022 Norepinephrine (P) [Mass/Vol] 1779 pg/mL 0-874 [facility] Serum or plasma C reactive p rotein measurement (mass/volume)Ordered By: Dr. Mendoza on 08-15-2022 CRP [Mass/Vol] 67.20 mg/L 0.0-3.0 [facility] Comment on above: C-Reactive Protein ( CRP) provides useful information for thediagnosis, therapy and monitoring of inflammatory processesand associated diseases. For the evaluation of Relative Riskfor Cardiovascular Disease, a High Sensitivity CRP (HSCRP)should be ordered. Serum or plasma cortisol martínez surement (mass/volume)Ordered By: Dr. Perez on 08-15-2022 Cortisol [Mass/Vol] 19.40 ug/dL 3.44-22.45 [facility] Comment on above: Adult (AM) 5.27 - 22 .45 ug/dL Adult (PM) 3.44 - 16.76 ug/dLPlease note revised CORTISOL reference range effective 2019. Serum or plasma dopamine martínez surement (mass/volume)Ordered By: Dr. Perez on 08-15-2022 DOPamine [Mass/Vol] 183 pg/mL 0-48 [facility] Comment on above: Performed at: [address] [id number] Director: Luisa Gonzales MD, Phone: [phone] Serum procalcitonin measurem entOrdered By: Dr. Mendoza on 08-15-2022 Procalcitonin [Mass/Vol] 0.47 ng/mL 0.00-0.09 [facility] Comment on above: A procalcitonin (PCT ) level above 2.0 ng/mL on the first day of ICU admission is associated with a high risk for progression to severe sepsis and/or septic shock. A PCT level below 0.5 ng/mL on the first day of ICU admission is associated with a low risk for progression to severe and/or septic shock. Note: Concentrations <0.5 ng/mL do not exclude an infection on account of localized infections (without systemic signs) which can be associated with such low concentrations, or a systemic infection in its initial stages (<6 hours). Furthermore, increased procalcitonin can occur without infection. PCT concentrations between 0.5 and 2.0 ng/mL should be interpreted taking into account the patient's history. It is recommended to retest PCT within 6-24 hours if any concentrations <2 ng/mL are obtained. Stool enteric pathogen panel by probe and target amplification methodOrdered By: Dr. Mcgee on 08-15-2022 Gastrointestinal pathogens panel CHRISTIANO+probe (Stl) [facility] Thin prep Papanicolaou smear with manual screeningOrdered By: Dr. Mendoza on 08-15-2022 Thin prep Papanicolaou smear with manual screening 25 mmol/L Not Establ. [facility] Urine creatinine measurement (mass/volume)Ordered By: Cally Coleman on 08-15-2022 Creatinine (U) [Mass/Vol] 293.00 mg/dL NO RANGE EST. [facility] Urine osmolality measurement Ordered By: Dr. Mendoza on 08-15-2022 Osmolality (U) [Osmolality] 311 mOsm/KG >50 [facility] Comment on above: Normal Urine Referen ce Ranges Random: 50 - 1200 mOsm/kg H20 depending on fluid intake Random: >850 mOsm/kg after 12 hour fluid restriction 24 hour: ~300 - 900 mOsm/kg H2O Urine protein measurement (m ass/volume)Ordered By: Cally Coleman on 08-15-2022 Protein (U) [Mass/Vol] 120.7 mg/dL 0.0-11.8 [facility] Urine protein/creatinine mas s ratioOrdered By: Cally Coleman on 08-15-2022 Protein/Creatinine (U) [Mass ratio] 412 mg/g CRE 0-200 [facility] Absolute lymphocyte countOrd ered By: Dr. Mcgee on 08-14-2022 Lymphocytes Auto (Unsp spec) [#/Vol] 3.19 10*3/uL 0.83-4.51 [facility] Basophil percentageOrdered B y: Dr. Mcgee on 08-14-2022 Basophil percentage 0-5 SEEN /hpf 0-5 [facility] Basophils/100 WBC (Bld) 1.3 % 0-1 [facility] Bilirubin [Mass/Vol] 0.40 mg/dL 0.20-1.00 [facility] Comment on above: For patients on eltr ombopag therapy, use of Dimension [place] TBIL is not recommended. Chloride [Moles/Vol] 108 mmol/L 98-107 [facility] Eosinophils/100 WBC (Bld) 4.9 % 0-5 [facility] Glucose [Mass/Vol] 146 mg/dL 74-106 [facility] Comment on above: Fasting Glucose resu lt greater than or equal to 126 mg/dL suggests DIABETES MELLITUS per A.D.A. criteria. Neutrophils (Bld) [#/Vol] 4.4 10*3/uL 2.0-7.7 [facility] Neutrophils/100 WBC (Bld) 43.0 % 47-70 [facility] Potassium [Moles/Vol] 3.4 mmol/L 3.5-5.1 [facility] Protein [Mass/Vol] 7.2 g/dL 6.4-8.2 [facility] Sodium [Moles/Vol] 137 mmol/L 136-145 [facility] WBC (Bld) [#/Vol] 10.2 10*3/uL 4.4-11.0 [facility] Bilirubin Test strip Ql (U)O rdered By: Dr. Mcgee on 08-14-2022 Bilirubin Ql (U) 3 mg/dL Negative [facility] Comment on above: COLOR OF URINE MAY A FFECT DIPSTICK RESULTS. Blood erythrocytes count (nu mber/volume)Ordered By: Dr. Mcgee on 08-14-2022 RBC (Bld) [#/Vol] 5.00 10*6/uL 4.2-5.4 [facility] Blood hemoglobin measurement (mass/volume)Ordered By: Dr. Mcgee on 08-14-2022 Hemoglobin (Bld) [Mass/Vol] 15.0 g/dL 12.0-15.0 [facility] Blood lymphocytes/100 leukoc ytesOrdered By: Dr. Mcgee on 08-14-2022 Lymphocytes/100 WBC (Bld) 31.3 % 19-41 [facility] Blood manual differential co mment interpretation (narrative result)Ordered By: Dr. Mcgee on 08-14-2022 Manual differential comment Kevin (Bld) [Interp] SCANNED [facility] Comment on above: MONOCYTOSIS NOTED Blood monocytes/100 leukocyt esOrdered By: Dr. Mcgee on 08-14-2022 Monocytes/100 WBC (Bld) 17.5 % 0-10 [facility] Blood platelet mean volumeOr dered By: Dr. Mcgee on 08-14-2022 Platelet mean volume (Bld) [Entitic vol] 10.9 fL 6.2-12.0 [facility] Clostridium difficile detect ion by polymerase chain reactionOrdered By: Dr. Mcgee on 08-14-2022 C. difficile DNA CHRISTIANO+probe Ql (Unsp spec) [facility] Determination of erythrocyte mean corpuscular volume (MCV)Ordered By: Dr. Mcgee on 08-14-2022 MCV (RBC) [Entitic vol] 97.8 fL 81-99 [facility] Direct bilirubinOrdered By: Dr. Mcgee on 08-14-2022 Bilirubin.direct [Mass/Vol] 0.16 mg/dL 0.00-0.30 [facility] Hematocrit Auto (Bld) [Volum e fraction]Ordered By: Dr. Mcgee on 08-14-2022 Hematocrit (Bld) [Volume fraction] 48.9 % 37-47 [facility] Ketones Test strip Ql (U)Ord ered By: Dr. Mcgee on 08-14-2022 Ketones Ql (U) 5 mg/dl Negative [facility] Laboratory - Chemistry and C hemistry - challengeOrdered By: Dr. Mcgee on 08-14-2022 ALP [Catalytic activity/Vol] 112 U/L 45-117 [facility] ALT [Catalytic activity/Vol] 12 U/L 13-56 [facility] CO2 [Moles/Vol] 16.0 mmol/L 21.0-32.0 [facility] Globulin (S) [Mass/Vol] 4.6 g/dL 2.2-4.2 [facility] Urea nitrogen/Creatinine [Mass ratio] 9.2 mg/mg 10-20 [facility] Laboratory - Hematology and Cell countsOrdered By: Dr. Mcgee on 08-14-2022 Erythrocyte distribution width (RBC) [Entitic vol] 42.5 fL 35.1-43.9 [facility] Erythrocyte distribution width (RBC) [Ratio] 11.8 % 11.6-14.6 [facility] Immature granulocytes/100 WBC (Bld) 2.000 % 0.0-0.9 [facility] Comment on above: IG% - Immature Granu locytes (promyelocytes, myelocytes and metamyelocytes) > 1% indicates that a LEFT SHIFT is Present. MCH (RBC) [Entitic mass] 30.0 pg 27.0-32.0 [facility] Nucleated RBC/100 WBC (Bld) [Ratio] 0 % 0-5 [facility] MCHC Auto (RBC) [Mass/Vol]Or dered By: Dr. Mcgee on 08-14-2022 MCHC (RBC) [Mass/Vol] 30.7 g/dL 32-36 [facility] Mucus LM Ql (Urine sed)Order ed By: Dr. Mcgee on 08-14-2022 Mucus Ql (Urine sed) 0 SEEN /hpf [facility] Nitrite Test strip Ql (U)Ord ered By: Dr. Mcgee on 08-14-2022 Nitrite Ql (U) Positive Negative [facility] No Panel InformationOrdered By: Dr. Mcege on 08-14-2022 Estimated GFR (MDRD) Amer 20 mL/min >60 [facility] Comment on above: GFR Calc Estimated GFR (MDRD) Non-Af Amer 16 mL/min >60 [facility] Comment on above: Non- GFR Calc Platelets bldOrdered By: Dr. Mcgee on 08-14-2022 Platelets (Bld) [#/Vol] 414 10*3/uL 150-450 [facility] Protein Test strip Ql (U)Ord ered By: Dr. Mcgee on 08-14-2022 Protein Ql (U) 100 mg/dl Negative [facility] Serum or plasma albumin alicia urement (mass/volume)Ordered By: Dr. Mcgee on 08-14-2022 Albumin [Mass/Vol] 2.6 g/dL 3.2-5.0 [facility] Serum or plasma calcium alicia urement (mass/volume)Ordered By: Dr. Mcgee on 08-14-2022 Calcium [Mass/Vol] 8.5 mg/dL 8.5-10.1 [facility] Serum or plasma creatinine m easurement (mass/volume)Ordered By: Dr. Mcgee on 08-14-2022 Creatinine [Mass/Vol] 3.06 mg/dL 0.55-1.02 [facility] Comment on above: The validity of the calculated GFR & GFRAA in patients over 70 years has not been determined. Clinical correlation is essential. Serum or plasma urea nitroge n measurement (mass/volume)Ordered By: Dr. Mcgee on 08-14-2022 Urea nitrogen [Mass/Vol] 28 mg/dL 7-18 [facility] Squamous epithelial cells de tection in urine sediment by light microscopyOrdered By: Dr. Mcgee on 08-14-2022 Epithelial cells.squamous LM Ql (Urine sed) 0-5 SEEN /hpf 5-10 [facility] Stool lactoferrin detection by immunoassayOrdered By: Dr. Mcgee on 08-14-2022 Lactoferrin IA Ql (Stl) [facility] Thin prep Papanicolaou smear with manual screeningOrdered By: Dr. Mcgee on 08-14-2022 Thin prep Papanicolaou smear with manual screening 10 U/L 15-37 [facility] Thin prep Papanicolaou smear with manual screening 13 5-15 [facility] Urine blood detectionOrdered By: Dr. Mcgee on 08-14-2022 RBC Ql (U) 10 /ul Negative [facility] RBC Ql (U) 0-5 SEEN /hpf 0-5 [facility] Urine clarityOrdered By: Dr. Mcgee on 08-14-2022 Clarity (U) Cloudy Clear [facility] Urine color determinationOrd ered By: Dr. Mcgee on 08-14-2022 Color (U) Yellow Yellow [facility] Urine glucose detectionOrder ed By: Dr. Mcgee on 08-14-2022 Glucose Ql (U) 50 mg/dl Normal [facility] Urine leukocyte esterase det ection by dipstickOrdered By: Dr. Mcgee on 08-14-2022 Leukocyte esterase Test strip Ql (U) 25 /ul Negative [facility] Urine pHOrdered By: Dr. Jaycob gutierrez on 08-14-2022 pH (U) 5.0 [pH] 5.0 - 8.0 [facility] Urine sediment bacteria coun t by microscopy (number/high power field)Ordered By: Dr. Mcgee on 08-14-2022 Bacteria LM.HPF (Urine sed) [#/Area] 2 /[HPF] None Seen [facility] Urine specific gravity measu rementOrdered By: Dr. Mcgee on 08-14-2022 Specific gravity (U) [Rel density] 1.030 1.002-1.030 [facility] Urobilinogen Auto test strip Ql (U)Ordered By: Dr. Mcgee on 08-14-2022 Urobilinogen Ql (U) 1 mg/dl Normal [facility] C. DIFFICILE PCRon C. difficile toxin genes CHRISTIANO+probe Ql (Stl) Negative Negative for C. difficile toxin by PCR [facility] CBC W Auto Differential pane l (Bld)on 08-12-2022 Basophils (Bld) [#/Vol] <0.11 k/uL [facility] Basophils/100 WBC (Bld) 0.4 % [facility] Differential cell count method Nom (Bld) Auto [facility] Eosinophils (Bld) [#/Vol] 0.20 10*3/uL <0.46 k/uL [facility] Eosinophils/100 WBC (Bld) 4.5 % [facility] Erythrocyte distribution width (RBC) [Ratio] 11.6 % 11.5 - 15.0 % [facility] Hematocrit (Bld) [Volume fraction] 40.7 % 36.0 - 46.0 % [facility] Hemoglobin (Bld) [Mass/Vol] 12.2 g/dL 11.5 - 15.5 g/dL [facility] Immature granulocytes (Bld) [#/Vol] <0.10 k/uL [facility] Immature granulocytes/100 WBC (Bld) 0.2 % [facility] Lymphocytes (Bld) [#/Vol] 1.07 10*3/uL 1.00 - 4.00 k/uL [facility] Lymphocytes/100 WBC (Bld) 23.9 % [facility] MCH (RBC) [Entitic mass] 29.5 pg 26.0 - 34.0 pg [facility] MCHC (RBC) [Mass/Vol] 30.0 g/dL Low 30.5 - 36.0 g/dL [facility] MCV (RBC) [Entitic vol] 98.5 fL 80.0 - 100.0 fL [facility] Monocytes (Bld) [#/Vol] 0.71 10*3/uL <0.87 k/uL [facility] Monocytes/100 WBC (Bld) 15.8 % [facility] Neutrophils (Bld) [#/Vol] 2.47 10*3/uL 1.45 - 7.50 k/uL [facility] Neutrophils/100 WBC (Bld) 55.2 % [facility] Nucleated RBC (Bld) [#/Vol] <0.01 k/uL [facility] Nucleated RBC/100 WBC (Bld) [Ratio] 0.0 /100 WBC [facility] Platelet mean volume (Bld) [Entitic vol] 11.5 fL 9.0 - 12.7 fL [facility] Platelets (Bld) [#/Vol] 311 10*3/uL 150 - 400 k/uL [facility] RBC (Bld) [#/Vol] 4.13 10*6/uL 3.90 - 5.2 0 m/uL [facility] WBC (Bld) [#/Vol] 4.48 10*3/uL 3.70 - 11.00 k/uL [facility] HBA1C (OUTSIDE)on 02-28-2022 HbA1c (Bld) [Mass fraction] 5.3 % 5.7 [facility] Basophil percentageon 2021 Chloride [Moles/Vol] 102 mmol/L 98-107 [facility] Work Phone: Glucose [Mass/Vol] 86 mg/dL 74-106 [facility] Work Phone: Potassium [Moles/Vol] 4.9 mmol/L 3.5-5.1 [facility] Work Phone: Sodium [Moles/Vol] 139 mmol/L 136-145 [facility] Work Phone: Glucose Glucometer (BldC) [M ass/Vol]on 11-20-2021 Glucose [Mass/Vol] 105 mg/dL 74-106 [facility] Work Phone: Comment on above: MANAGEMENT OF PATIEN T CARE PER NURSING PROTOCOL Laboratory - Chemistry and C hemistry - challengeon 11-20-2021 CO2 [Moles/Vol] 35.0 mmol/L 21.0-32.0 [facility] Work Phone: Urea nitrogen/Creatinine [Mass ratio] 27.1 mg/mg 10-20 [facility] Work Phone: No Panel Informationon 11-20 Estimated Creatinine Clearance Calc 33.67 ml/min [facility] Work Phone: Estimated GFR (MDRD) Amer 37 mL/min >60 [facility] Work Phone: Comment on above: GFR Calc Estimated GFR (MDRD) Non-Af Amer 31 mL/min >60 [facility] Work Phone: Comment on above: Non- GFR Calc Serum or plasma calcium alicia urement (mass/volume)on 11-20-2021 Calcium [Mass/Vol] 9.0 mg/dL 8.5-10.1 [facility] Work Phone: Serum or plasma creatinine m easurement (mass/volume)on 11-20-2021 Creatinine [Mass/Vol] 1.77 mg/dL 0.55-1.02 [facility] Work Phone: Comment on above: The validity of the calculated GFR & GFRAA in patients over 70 years has not been determined. Clinical correlation is essential. Serum or plasma urea nitroge n measurement (mass/volume)on 11-20-2021 Urea nitrogen [Mass/Vol] 48 mg/dL 7-18 [facility] Work Phone: Thin prep Papanicolaou smear with manual screeningon 11-20-2021 Thin prep Papanicolaou smear with manual screening 2 5-15 [facility] Work Phone: Basophil percentageon 2021 Basophil percentage 4.5 mg/dL 2.5-4.9 [facility] Work Phone: Bilirubin [Mass/Vol] 0.40 mg/dL 0.20-1.00 [facility] Work Phone: Comment on above: For patients on eltr ombopag therapy, use of Dimension [place] TBIL is not recommended. Protein [Mass/Vol] 9.1 g/dL 6.4-8.2 [facility] Work Phone: Laboratory - Chemistry and C hemistry - challengeon 11-19-2021 ALP [Catalytic activity/Vol] 215 U/L 45-117 [facility] Work Phone: ALT [Catalytic activity/Vol] 34 U/L 13-56 [facility] Work Phone: Free T4 [Mass/Vol] 0.75 ng/dL 0.76-1.46 [facility] Work Phone: Globulin (S) [Mass/Vol] 6.2 g/dL 2.2-4.2 [facility] Work Phone: Magnesium [Mass/Vol] 2.4 mg/dL 1.6-2.6 [facility] Work Phone: No Panel Informationon 11-19 Troponin I High Sensitivity 17 pg/mL 3.0-54.0 [facility] Work Phone: Comment on above: Please Note: New Evelyn t Units and Gender Specific Reference Ranges. For more information see Policy Stat Procedure [place] High Sensitivity Troponin (TNIH) and attachments. Serum or plasma albumin alicia urement (mass/volume)on 11-19-2021 Albumin [Mass/Vol] 2.9 g/dL 3.2-5.0 [facility] Work Phone: [phone] Serum or plasma albumin/glob ulin mass ratioon 11-19-2021 Albumin/Globulin [Mass ratio] 0.5 {ratio} 0.9-2.4 [facility] Work Phone: Thin prep Papanicolaou smear with manual screeningon 11-19-2021 Thin prep Papanicolaou smear with manual screening 56 U/L 15-37 [facility] Work Phone: Absolute lymphocyte counton 11-18-2021 Lymphocytes Auto (Unsp spec) [#/Vol] 1.67 10*3/uL 0.83-4.51 [facility] Work Phone: [phone] Assessment of wrist artery p atency prior to arterial punctureon 11-18-2021 Arterial patency Wrist artery --pre arterial puncture Positive [facility] Work Phone: Base excesson 11-18-2021 Base excess Calc (BldV) [Moles/Vol] 0 mmol/L -2-2 [facility] Work Phone: Basophil percentageon 2021 Basophil percentage 0-5 SEEN /hpf 0-5 [facility] Work Phone: Basophil percentage 25.7 mmol/L 22-26 [facility] Work Phone: Basophils/100 WBC (Bld) 93 % 95-99 [facility] Work Phone: Basophil percentage 5.0 mg/dL 2.5-4.9 [facility] Work Phone: [phone] Basophils/100 WBC (Bld) 0.4 % 0-1 [facility] Work Phone: Bilirubin [Mass/Vol] 0.50 mg/dL 0.20-1.00 [facility] Work Phone: Comment on above: For patients on eltr ombopag therapy, use of Dimension [place] TBIL is not recommended. Chloride [Moles/Vol] 103 mmol/L 98-107 [facility] Work Phone: Eosinophils/100 WBC (Bld) 0.2 % 0-5 [facility] Work Phone: Glucose [Mass/Vol] 122 mg/dL 74-106 [facility] Work Phone: Comment on above: Fasting Glucose resu lt from 100 to 125 mg/dL suggests IMPAIRED HOMEOSTASIS per A.D.A. criteria. Neutrophils (Bld) [#/Vol] 6.4 10*3/uL 2.0-7.7 [facility] Work Phone: Neutrophils/100 WBC (Bld) 71.2 % 47-70 [facility] Work Phone: Potassium [Moles/Vol] 8.8 mmol/L 3.5-5.1 [facility] Work Phone: Comment on above: Critical Result(s) C alled at: 20:27:56 11/18/2021 by: Avi Castro to Alyssa Cronin RN (ER). Results read back by same. Protein [Mass/Vol] 9.7 g/dL 6.4-8.2 [facility] Work Phone: Sodium [Moles/Vol] 137 mmol/L 136-145 [facility] Work Phone: WBC (Bld) [#/Vol] 9.0 10*3/uL 4.4-11.0 [facility] Work Phone: Bilirubin Test strip Ql (U)o n 11-18-2021 Bilirubin Ql (U) Negative Negative [facility] Work Phone: Blood erythrocytes count (nu mber/volume)on 11-18-2021 RBC (Bld) [#/Vol] 3.36 10*6/uL 4.2-5.4 [facility] Work Phone: Blood hemoglobin measurement (mass/volume)on 11-18-2021 Hemoglobin (Bld) [Mass/Vol] 9.6 g/dL 12.0-15.0 [facility] Work Phone: Blood lymphocytes/100 leukoc yteson 11-18-2021 Lymphocytes/100 WBC (Bld) 18.5 % 19-41 [facility] Work Phone: Blood monocytes/100 leukocyt eson 11-18-2021 Monocytes/100 WBC (Bld) 9.3 % 0-10 [facility] Work Phone: Blood platelet mean volumeon 11-18-2021 Platelet mean volume (Bld) [Entitic vol] 10.4 fL 6.2-12.0 [facility] Work Phone: CO2 (BldA) [Partial pressure ]on 11-18-2021 CO2 (Bld) [Partial pressure] 49.3 mm[Hg] 35-45 [facility] Work Phone: Determination of erythrocyte mean corpuscular volume (MCV)on 11-18-2021 MCV (RBC) [Entitic vol] 102.1 fL 81-99 [facility] Work Phone: Hematocrit Auto (Bld) [Volum e fraction]on 11-18-2021 Hematocrit (Bld) [Volume fraction] 34.3 % 37-47 [facility] Work Phone: Ketones Test strip Ql (U)on 11-18-2021 Ketones Ql (U) Negative Negative [facility] Work Phone: Laboratory - Chemistry and C hemistry - challengeon 11-18-2021 Sodium (U) [Moles/Vol] 23 mmol/L Not Establ. [facility] Work Phone: ALP [Catalytic activity/Vol] 234 U/L 45-117 [facility] Work Phone: ALT [Catalytic activity/Vol] 31 U/L 13-56 [facility] Work Phone: CO2 [Moles/Vol] 29.0 mmol/L 21.0-32.0 [facility] Work Phone: Globulin (S) [Mass/Vol] 6.7 g/dL 2.2-4.2 [facility] Work Phone: Magnesium [Mass/Vol] 2.5 mg/dL 1.6-2.6 [facility] Work Phone: Urea nitrogen/Creatinine [Mass ratio] 22.6 mg/mg 10-20 [facility] Work Phone: Laboratory - Hematology and Cell countson 11-18-2021 Erythrocyte distribution width (RBC) [Entitic vol] 59.7 fL 35.1-43.9 [facility] Work Phone: Erythrocyte distribution width (RBC) [Ratio] 16.0 % 11.6-14.6 [facility] Work Phone: Immature granulocytes/100 WBC (Bld) 0.400 % 0.0-0.9 [facility] Work Phone: Comment on above: IG% - Immature Granu locytes (promyelocytes, myelocytes and metamyelocytes) > 1% indicates that a LEFT SHIFT is Present. MCH (RBC) [Entitic mass] 28.6 pg 27.0-32.0 [facility] Work Phone: Nucleated RBC/100 WBC (Bld) [Ratio] 0 % 0-5 [facility] Work Phone: MCHC Auto (RBC) [Mass/Vol]on 11-18-2021 MCHC (RBC) [Mass/Vol] 28.0 g/dL 32-36 [facility] Work Phone: Mucus LM Ql (Urine sed)on Mucus Ql (Urine sed) 0 SEEN /hpf [facility] Work Phone: Nitrite Test strip Ql (U)on 11-18-2021 Nitrite Ql (U) Negative Negative [facility] Work Phone: No Panel Informationon 11-18 Blood Gas Liter Flow 2.0 /min [facility] Work Phone: Blood Gas Sample Site L Radial [facility] Work Phone: Blood Gas Specimen Type ART [facility] Work Phone: Blood Gas Total CO2 27 mmol/L [facility] Work Phone: Oxygen Delivery Device Cannula [facility] Work Phone: Estimated Creatinine Clearance Calc 23.65 ml/min [facility] Work Phone: Estimated GFR (MDRD) Amer 25 mL/min >60 [facility] Work Phone: Comment on above: GFR Calc Estimated GFR (MDRD) Non-Af Amer 21 mL/min >60 [facility] Work Phone: Comment on above: Non- GFR Calc Thyroid Stimulating Hormone (TSH) 5.59 uIU/mL 0.358-3.74 [facility] Work Phone: Troponin I High Sensitivity 18 pg/mL 3.0-54.0 [facility] Work Phone: Comment on above: Please Note: New Evelyn t Units and Gender Specific Reference Ranges. For more information see Policy Stat Procedure [place] High Sensitivity Troponin (TNIH) and attachments. Oxygen (BldA) [Partial press ure]on 11-18-2021 Oxygen (Bld) [Partial pressure] 71 mmHG 75-100 [facility] Work Phone: Platelets bldon 11-18-2021 Platelets (Bld) [#/Vol] 291 10*3/uL 150-450 [facility] Work Phone: Protein Test strip Ql (U)on 11-18-2021 Protein Ql (U) 30 mg/dl Negative [facility] Work Phone: Serum or plasma albumin alicia urement (mass/volume)on 11-18-2021 Albumin [Mass/Vol] 3.0 g/dL 3.2-5.0 [facility] Work Phone: Serum or plasma albumin/glob ulin mass ratioon 11-18-2021 Albumin/Globulin [Mass ratio] 0.4 {ratio} 0.9-2.4 [facility] Work Phone: Serum or plasma calcium alicia urement (mass/volume)on 11-18-2021 Calcium [Mass/Vol] 9.3 mg/dL 8.5-10.1 [facility] Work Phone: Serum or plasma creatinine m easurement (mass/volume)on 11-18-2021 Creatinine [Mass/Vol] 2.52 mg/dL 0.55-1.02 [facility] Work Phone: Comment on above: The validity of the calculated GFR & GFRAA in patients over 70 years has not been determined. Clinical correlation is essential. Serum or plasma urea nitroge n measurement (mass/volume)on 11-18-2021 Urea nitrogen [Mass/Vol] 57 mg/dL 7-18 [facility] Work Phone: Squamous epithelial cells de tection in urine sediment by light microscopyon 11-18-2021 Epithelial cells.squamous LM Ql (Urine sed) 0-5 SEEN /hpf 5-10 [facility] Work Phone: Thin prep Papanicolaou smear with manual screeningon 11-18-2021 Thin prep Papanicolaou smear with manual screening 49 U/L 15-37 [facility] Work Phone: Thin prep Papanicolaou smear with manual screening 5 5-15 [facility] Work Phone: Urine blood detectionon 10-26 RBC Ql (U) 150 /ul Negative [facility] Work Phone: RBC Ql (U) 10-25 SEEN /hpf 0-5 [facility] Work Phone: Urine clarityon 11-18-2021 Clarity (U) Clear Clear [facility] Work Phone: Urine color determinationon 09-25-2022 Color (U) Yellow Yellow [facility] Work Phone: Urine creatinine measurement (mass/volume)on 11-18-2021 Creatinine (U) [Mass/Vol] 96.20 mg/dL NO RANGE EST. [facility] Work Phone: Urine glucose detectionon Glucose Ql (U) Normal mg/dl Normal [facility] Work Phone: Urine leukocyte esterase det ection by dipstickon 11-18-2021 Leukocyte esterase Test strip Ql (U) 25 /ul Negative [facility] Work Phone: Urine pHon 11-18-2021 pH (U) 5.0 [pH] 5.0 - 8.0 [facility] Work Phone: Urine sediment bacteria coun t by microscopy (number/high power field)on 11-18-2021 Bacteria LM.HPF (Urine sed) [#/Area] RARE /hpf None Seen [facility] Work Phone: Urine specific gravity measu rementon 11-18-2021 Specific gravity (U) [Rel density] 1.015 1.002-1.030 [facility] Work Phone: Urobilinogen Auto test strip Ql (U)on 11-18-2021 Urobilinogen Ql (U) 4 mg/dl Normal [facility] Work Phone: pH measurementon 11-18-2021 pH (Unsp spec) 7.33 [pH] 7.35-7.45 [facility] Work Phone: Glucose Glucometer (BldC) [M ass/Vol]on 08-16-2021 Glucose [Mass/Vol] 129 mg/dL 74-106 [facility] Work Phone: Comment on above: MANAGEMENT OF PATIEN T CARE PER NURSING PROTOCOL Absolute lymphocyte counton 08-13-2021 Lymphocytes Auto (Unsp spec) [#/Vol] 1.20 10*3/uL 0.83-4.51 [facility] Work Phone: Basophil percentageon 2021 Basophils/100 WBC (Bld) 0.7 % 0-1 [facility] Work Phone: Chloride [Moles/Vol] 97 mmol/L 98-107 [facility] Work Phone: Eosinophils/100 WBC (Bld) 5.8 % 0-5 [facility] Work Phone: Glucose [Mass/Vol] 121 mg/dL 74-106 [facility] Work Phone: Comment on above: Fasting Glucose resu lt from 100 to 125 mg/dL suggests IMPAIRED HOMEOSTASIS per A.D.A. criteria. Neutrophils (Bld) [#/Vol] 4.9 10*3/uL 2.0-7.7 [facility] Work Phone: Neutrophils/100 WBC (Bld) 64.0 % 47-70 [facility] Work Phone: Potassium [Moles/Vol] 3.9 mmol/L 3.5-5.1 [facility] Work Phone: Sodium [Moles/Vol] 137 mmol/L 136-145 [facility] Work Phone: [phone] WBC (Bld) [#/Vol] 7.6 10*3/uL 4.4-11.0 [facility] Work Phone: Blood erythrocytes count (nu mber/volume)on 08-13-2021 RBC (Bld) [#/Vol] 3.49 10*6/uL 4.2-5.4 [facility] Work Phone: Blood hemoglobin measurement (mass/volume)on 08-13-2021 Hemoglobin (Bld) [Mass/Vol] 8.3 g/dL 12.0-15.0 [facility] Work Phone: Blood lymphocytes/100 leukoc yteson 08-13-2021 Lymphocytes/100 WBC (Bld) 15.7 % 19-41 [facility] Work Phone: Blood manual differential co mment interpretation (narrative result)on 08-13-2021 Manual differential comment Kevin (Bld) [Interp] SCANNED [facility] Work Phone: Blood monocytes/100 leukocyt eson 08-13-2021 Monocytes/100 WBC (Bld) 13.4 % 0-10 [facility] Work Phone: Blood platelet mean volumeon 08-13-2021 Platelet mean volume (Bld) [Entitic vol] 10.2 fL 6.2-12.0 [facility] Work Phone: Blood polychromasia detectio n by light microscopyon 08-13-2021 Polychromasia LM Ql (Bld) RARE [facility] Work Phone: Determination of erythrocyte mean corpuscular volume (MCV)on 08-13-2021 MCV (RBC) [Entitic vol] 88.8 fL 81-99 [facility] Work Phone: Hematocrit Auto (Bld) [Volum e fraction]on 08-13-2021 Hematocrit (Bld) [Volume fraction] 31.0 % 37-47 [facility] Work Phone: Laboratory - Chemistry and C hemistry - challengeon 08-13-2021 CO2 [Moles/Vol] 36.0 mmol/L 21.0-32.0 [facility] Work Phone: Urea nitrogen/Creatinine [Mass ratio] 13.8 mg/mg 10-20 [facility] Work Phone: Laboratory - Hematology and Cell countson 08-13-2021 Anisocytosis [facility]Bld) [facility]: Erythrocyte distribution width (RBC) [Entitic vol] 71.8 fL 35.1-43.9 [facility] Work Phone: Erythrocyte distribution width (RBC) [Ratio] 22.6 % 11.6-14.6 [facility] Work Phone: Immature granulocytes/100 WBC (Bld) 0.400 % 0.0-0.9 [facility] Work Phone: Comment on above: IG% - Immature Granu locytes (promyelocytes, myelocytes and metamyelocytes) > 1% indicates that a LEFT SHIFT is Present. MCH (RBC) [Entitic mass] 23.8 pg 27.0-32.0 [facility] Work Phone: Nucleated RBC/100 WBC (Bld) [Ratio] 0 % 0-5 [facility] Work Phone: MCHC Auto (RBC) [Mass/Vol]on 08-13-2021 MCHC (RBC) [Mass/Vol] 26.8 g/dL 32-36 [facility] Work Phone: Macrocytes detectionon 08-13 Macrocytes Ql (Bld) 1+ [facility] Work Phone: No Panel Informationon 08-13 Estimated Creatinine Clearance Calc 91.69 ml/min [facility] Work Phone: Estimated GFR (MDRD) Amer 119 mL/min >60 [facility] Work Phone: Comment on above: GFR Calc Estimated GFR (MDRD) Non-Af Amer 98 mL/min >60 [facility] Work Phone: Comment on above: Non- GFR Calc Platelets bldon 08-13-2021 Platelets (Bld) [#/Vol] 302 10*3/uL 150-450 [facility] Work Phone: Serum or plasma calcium alicia urement (mass/volume)on 08-13-2021 Calcium [Mass/Vol] 9.0 mg/dL 8.5-10.1 [facility] Work Phone: Serum or plasma creatinine m easurement (mass/volume)on 08-13-2021 Creatinine [Mass/Vol] 0.65 mg/dL 0.55-1.02 [facility] Work Phone: Comment on above: The validity of the calculated GFR & GFRAA in patients over 70 years has not been determined. Clinical correlation is essential. Serum or plasma urea nitroge n measurement (mass/volume)on 08-13-2021 Urea nitrogen [Mass/Vol] 9 mg/dL 7-18 [facility] Work Phone: Thin prep Papanicolaou smear with manual screeningon 08-13-2021 Thin prep Papanicolaou smear with manual screening 1+ [facility] Work Phone: Thin prep Papanicolaou smear with manual screening 4 5-15 [facility] Work Phone: Hypochromatic red blood cell detectionon 08-05-2021 Hypochromia Ql (Bld) 1+ [facility] Work Phone: Serum or plasma ferritin martínez surement (mass/volume)on 08-05-2021 Ferritin [Mass/Vol] 255 ng/mL 8-252 [facility] Work Phone: INR in Blood by Coagulation assayon 08-02-2021 INR Coag (Bld) [Relative time] 1.2 {INR} [facility] Work Phone: Laboratory - Coagulationon 0 08-02-2021 aPTT Coag (Bld) [Time] 33.4 s 24.1-36.2 [facility] Work Phone: PT Coag (PPP) [Time] 15.1 s 11.7-14.9 [facility] Work Phone: Whole blood hemoglobin A1c/t otal hemoglobin ratio (mass fraction)on 08-02-2021 HbA1c (Bld) [Mass fraction] 6.5 % 3.8-5.6 [facility] Work Phone: Comment on above: Normal < 5.7 % Predi abetic 5.7 - 6.4 % Diabetic >or= 6.5 % Please note range changes. Basophil percentageon 2021 Bilirubin [Mass/Vol] 0.70 mg/dL 0.20-1.00 [facility] Work Phone: Comment on above: For patients on eltr ombopag therapy, use of Dimension [place] TBIL is not recommended. Protein [Mass/Vol] 8.8 g/dL 6.4-8.2 [facility] Work Phone: Laboratory - Chemistry and C hemistry - challengeon 08-01-2021 ALP [Catalytic activity/Vol] 189 U/L 45-117 [facility] Work Phone: ALT [Catalytic activity/Vol] 19 U/L 13-56 [facility] Work Phone: Globulin (S) [Mass/Vol] 5.9 g/dL 2.2-4.2 [facility] Work Phone: Serum or plasma albumin alicia urement (mass/volume)on 08-01-2021 Albumin [Mass/Vol] 2.9 g/dL 3.2-5.0 [facility] Work Phone: Serum or plasma albumin/glob ulin mass ratioon 08-01-2021 Albumin/Globulin [Mass ratio] 0.5 {ratio} 0.9-2.4 [facility] Work Phone: Thin prep Papanicolaou smear with manual screeningon 08-01-2021 Thin prep Papanicolaou smear with manual screening 20 U/L 15-37 [facility] Work Phone: Absolute lymphocyte counton 07-31-2021 Lymphocytes Auto (Unsp spec) [#/Vol] 0.99 10*3/uL 0.83-4.51 [facility] Work Phone: Assessment of wrist artery p atency prior to arterial punctureon 07-31-2021 Arterial patency Wrist artery --pre arterial puncture Positive [facility] Work Phone: Base excesson 07-31-2021 Base excess Calc (BldV) [Moles/Vol] 13 mmol/L -2-2 [facility] Work Phone: Basophil percentageon 2021 Basophil percentage 38.9 mmol/L 22-26 [facility] Work Phone: Basophils/100 WBC (Bld) 90 % 95-99 [facility] Work Phone: Basophil percentage 0-5 SEEN /hpf 0-5 [facility] Work Phone: Ammonia (P) [Moles/Vol] 37.0 umol/L 11-32 [facility] Work Phone: Basophils/100 WBC (Bld) 0.6 % 0-1 [facility] Work Phone: [phone] Bilirubin [Mass/Vol] 0.80 mg/dL 0.20-1.00 [facility] Work Phone: Comment on above: For patients on eltr ombopag therapy, use of Dimension [place] TBIL is not recommended. Chloride [Moles/Vol] 95 mmol/L 98-107 [facility] Work Phone: Eosinophils/100 WBC (Bld) 2.5 % 0-5 [facility] Work Phone: Glucose [Mass/Vol] 98 mg/dL 74-106 [facility] Work Phone: Neutrophils (Bld) [#/Vol] 5.0 10*3/uL 2.0-7.7 [facility] Work Phone: Neutrophils/100 WBC (Bld) 69.0 % 47-70 [facility] Work Phone: Potassium [Moles/Vol] 3.7 mmol/L 3.5-5.1 [facility] Work Phone: [phone] Protein [Mass/Vol] 9.1 g/dL 6.4-8.2 [facility] Work Phone: Sodium [Moles/Vol] 139 mmol/L 136-145 [facility] Work Phone: [phone] WBC (Bld) [#/Vol] 7.2 10*3/uL 4.4-11.0 [facility] Work Phone: Bilirubin Test strip Ql (U)o n 07-31-2021 Bilirubin Ql (U) Negative Negative [facility] Work Phone: Blood erythrocytes count (nu mber/volume)on 07-31-2021 RBC (Bld) [#/Vol] 3.44 10*6/uL 4.2-5.4 [facility] Work Phone: Blood hemoglobin measurement (mass/volume)on 07-31-2021 Hemoglobin (Bld) [Mass/Vol] 7.6 g/dL 12.0-15.0 [facility] Work Phone: Blood lymphocytes/100 leukoc yteson 07-31-2021 Lymphocytes/100 WBC (Bld) 13.8 % 19-41 [facility] Work Phone: Blood monocytes/100 leukocyt eson 07-31-2021 Monocytes/100 WBC (Bld) 14.0 % 0-10 [facility] Work Phone: Blood platelet mean volumeon 07-31-2021 Platelet mean volume (Bld) [Entitic vol] 10.1 fL 6.2-12.0 [facility] Work Phone: CO2 (BldA) [Partial pressure ]on 07-31-2021 CO2 (Bld) [Partial pressure] 70.1 mm[Hg] 35-45 [facility] Work Phone: Determination of erythrocyte mean corpuscular volume (MCV)on 07-31-2021 MCV (RBC) [Entitic vol] 86.6 fL 81-99 [facility] Work Phone: Direct bilirubinon 2 Bilirubin.direct [Mass/Vol] 0.39 mg/dL 0.00-0.30 [facility] Work Phone: Hematocrit Auto (Bld) [Volum e fraction]on 07-31-2021 Hematocrit (Bld) [Volume fraction] 29.8 % 37-47 [facility] Work Phone: Hyaline casts LM.LPF (Urine sed) [#/Area]on 07-31-2021 Hyaline casts (Urine sed) [#/Area] 25 /[LPF] 0-5 [facility] Work Phone: Iron measurement (mass/mass) on 07-31-2021 Iron (Unsp spec) [Mass/Mass] 19 ug/dL 50-170 [facility] Work Phone: Ketones Test strip Ql (U)on 07-31-2021 Ketones Ql (U) Negative Negative [facility] Work Phone: Laboratory - Chemistry and C hemistry - challengeon 07-31-2021 ALP [Catalytic activity/Vol] 206 U/L 45-117 [facility] Work Phone: ALT [Catalytic activity/Vol] 19 U/L 13-56 [facility] Work Phone: CO2 [Moles/Vol] 42.0 mmol/L 21.0-32.0 [facility] Work Phone: Globulin (S) [Mass/Vol] 6.0 g/dL 2.2-4.2 [facility] Work Phone: Urea nitrogen/Creatinine [Mass ratio] 24.6 mg/mg 10-20 [facility] Work Phone: Laboratory - Drug toxicology on 07-31-2021 Amphetamines Ql (U) Negative <1000 ng/mL [facility] Work Phone: Benzodiazepines Ql (U) Negative < 200 ng/mL [facility] Work Phone: Cannabinoids Screen Ql (U) Negative < 50 ng/mL [facility] Work Phone: Cocaine Ql (U) Negative < 300 ng/mL [facility] Work Phone: Opiates Ql (U) Negative < 300 ng/mL [facility] Work Phone: Laboratory - Hematology and Cell countson 07-31-2021 Erythrocyte distribution width (RBC) [Entitic vol] 60.0 fL 35.1-43.9 [facility] Work Phone: Erythrocyte distribution width (RBC) [Ratio] 19.0 % 11.6-14.6 [facility] Work Phone: Immature granulocytes/100 WBC (Bld) 0.100 % 0.0-0.9 [facility] Work Phone: Comment on above: IG% - Immature Granu locytes (promyelocytes, myelocytes and metamyelocytes) > 1% indicates that a LEFT SHIFT is Present. MCH (RBC) [Entitic mass] 22.1 pg 27.0-32.0 [facility] Work Phone: Nucleated RBC/100 WBC (Bld) [Ratio] 0 % 0-5 [facility] Work Phone: MCHC Auto (RBC) [Mass/Vol]on 07-31-2021 MCHC (RBC) [Mass/Vol] 25.5 g/dL 32-36 [facility] Work Phone: Mucus LM Ql (Urine sed)on Mucus Ql (Urine sed) 0 SEEN /hpf [facility] Work Phone: Nitrite Test strip Ql (U)on 07-31-2021 Nitrite Ql (U) Negative Negative [facility] Work Phone: No Panel Informationon 07-31 Bld Gas Crit Called To/Read Back By Yes [facility] Work Phone: Blood Gas Liter Flow 3.0 /min [facility] Work Phone: Blood Gas Notified Whom marc [facility] Work Phone: Blood Gas Sample Site L Radial [facility] Work Phone: Blood Gas Specimen Type ART [facility] Work Phone: Blood Gas Total CO2 41 mmol/L [facility] Work Phone: [phone] Oxygen Delivery Device Cannula [facility] Work Phone: MDMA (Ecstasy) Screen Negative < 500 ng/mL [facility] Work Phone: Urine Barbiturates Screen Negative < 200 ng/mL [facility] Work Phone: Urine Drug Screen Comment [facility] Work Phone: [phone] Comment on above: CONFIRMATORY TESTING FOR ALL POSITIVE URINE DRUG SCREENRESULTS WILL ONLY BE SENT OUT UPON PHYSICIAN ORDER. VISTA Urine Drug Screen methods provide only preliminaryanalytical test results. A more specific alternate chemicalmethod must be used in order to obtain a confirmedanalytical result. Gas chromatography/mass spectrometery(GC/MS) is the preferred confirmatory method. Clinicalconsideration and professional judgement should be appliedto any drug of abuse test result, particularly whenpreliminary positive results are used. URINE TCA TESTING MUST BE ORDERED SEPARATELY. USE TESTMNEMONIC: [facility] Urine Methadone Screen Negative < 300 ng/mL [facility] Work Phone: Estimated Creatinine Clearance Calc 41.63 ml/min [facility] Work Phone: Estimated GFR (MDRD) Amer 50 mL/min >60 [facility] Work Phone: Comment on above: GFR Calc Estimated GFR (MDRD) Non-Af Amer 41 mL/min >60 [facility] Work Phone: Comment on above: Non- GFR Calc Total Iron Binding Capacity 454 ug/dL 250-450 [facility] Work Phone: Troponin I High Sensitivity 22 pg/mL 3.0-54.0 [facility] Work Phone: Comment on above: Please Note: New Evelyn t Units and Gender Specific Reference Ranges. For more information see Policy Stat Procedure [place] High Sensitivity Troponin (TNIH) and attachments. Oxygen (BldA) [Partial press ure]on 07-31-2021 Oxygen (Bld) [Partial pressure] 66 mmHG 75-100 [facility] Work Phone: Platelets bldon 07-31-2021 Platelets (Bld) [#/Vol] 316 10*3/uL 150-450 [facility] Work Phone: Protein Test strip Ql (U)on 07-31-2021 Protein Ql (U) 30 mg/dl Negative [facility] Work Phone: Serum or plasma albumin alicia urement (mass/volume)on 07-31-2021 Albumin [Mass/Vol] 3.1 g/dL 3.2-5.0 [facility] Work Phone: Serum or plasma calcium alicia urement (mass/volume)on 07-31-2021 Calcium [Mass/Vol] 9.1 mg/dL 8.5-10.1 [facility] Work Phone: Serum or plasma creatinine m easurement (mass/volume)on 07-31-2021 Creatinine [Mass/Vol] 1.38 mg/dL 0.55-1.02 [facility] Work Phone: Comment on above: The validity of the calculated GFR & GFRAA in patients over 70 years has not been determined. Clinical correlation is essential. Serum or plasma iron saturat ion measurement (mass fraction)on 07-31-2021 Iron saturation [Mass fraction] 4.2 % 15.0-55.0 [facility] Work Phone: Serum or plasma urea nitroge n measurement (mass/volume)on 07-31-2021 Urea nitrogen [Mass/Vol] 34 mg/dL 7-18 [facility] Work Phone: Squamous epithelial cells de tection in urine sediment by light microscopyon 07-31-2021 Epithelial cells.squamous LM Ql (Urine sed) 0-5 SEEN /hpf 5-10 [facility] Work Phone: Thin prep Papanicolaou smear with manual screeningon 07-31-2021 Thin prep Papanicolaou smear with manual screening 24 U/L 15-37 [facility] Work Phone: Thin prep Papanicolaou smear with manual screening 2 5-15 [facility] Work Phone: Urine blood detectionon 06-0 RBC Ql (U) Negative Negative [facility] Work Phone: RBC Ql (U) 0-5 SEEN /hpf 0-5 [facility] Work Phone: Urine clarityon 07-31-2021 Clarity (U) Clear Clear [facility] Work Phone: Urine color determinationon 07-31-2021 Color (U) Yellow Yellow [facility] Work Phone: Urine glucose detectionon Glucose Ql (U) Normal mg/dl Normal [facility] Work Phone: Urine leukocyte esterase det ection by dipstickon 07-31-2021 Leukocyte esterase Test strip Ql (U) Negative Negative [facility] Work Phone: Urine pHon 07-31-2021 pH (U) 6.0 [pH] 5.0 - 8.0 [facility] Work Phone: Urine phencyclidine (PCP) de tectionon 07-31-2021 Phencyclidine Ql (U) Negative < 25 ng/mL [facility] Work Phone: Urine sediment bacteria coun t by microscopy (number/high power field)on 07-31-2021 Bacteria LM.HPF (Urine sed) [#/Area] RARE /hpf None Seen [facility] Work Phone: Urine specific gravity measu rementon 07-31-2021 Specific gravity (U) [Rel density] 1.015 1.002-1.030 [facility] Work Phone: Urobilinogen Auto test strip Ql (U)on 07-31-2021 Urobilinogen Ql (U) Normal mg/dl Normal [facility] Work Phone: pH measurementon 07-31-2021 pH (Unsp spec) 7.35 [pH] 7.35-7.45 [facility] Work Phone: LABORATORYOrdered By: Cecily Jones on 07-29-2021 Anisocytosis Ql (Bld) 1+ *NA* (07/29/21 3:17 PM) Invalid Interpretation Code AO Workflow SS Basophil, Absolute 0.1 103/mcL Invalid Interpretation Code 0.0 - 0.2 10^3/mcL AO Workflow SS Basophils/100 WBC (Bld) 0.7 % Invalid Interpretation Code 0.0 - 2.5 % AO Workflow SS Calcium [Mass/Vol] 8.6 mg/dL Invalid Interpretation Code 8.4 - 10.2 mg/dL AO ADM SS Chloride [Moles/Vol] 98 mmol/L Invalid Interpretation Code 98 - 107 mmol/L AO ADM SS CO2 [Moles/Vol] 44 mmol/L Invalid Interpretation Code 23 - 31 mmol/L AO ADM SS Creatinine [Mass/Vol] 1.38 mg/dL Invalid Interpretation Code 0.55 - 1.02 mg/dL AO ADM SS Electrolyte Balance -1.0 mEq/L Invalid Interpretation Code 4.0 - 15.0 mEq/L AO ADM SS Eosinophil, Absolute 0.2 103/mcL Invalid Interpretation Code 0.0 - 0.4 10^3/mcL AO Workflow SS Eosinophils/100 WBC (Bld) 2.3 % Invalid Interpretation Code 0.0 - 7.0 % AO Workflow SS Erythrocyte distribution width (RBC) [Ratio] 19.8 % Invalid Interpretation Code 11.5 - 14.5 % AO Workflow SS Glucose [Mass/Vol] 97 mg/dL Invalid Interpretation Code 80 - 115 mg/dL AO ADM SS Hematocrit (Bld) [Volume fraction] 28.2 % Invalid Interpretation Code 37.0 - 47.0 % AO Workflow SS Hgb 7.9 G/dL Invalid Interpretation Code 12.0 - 16.0 G/dL AO Workflow SS Lymphocyte, Absolute 0.8 103/mcL Invalid Interpretation Code 0.8 - 3.9 10^3/mcL AO Workflow SS Lymphocytes/100 WBC (Bld) 11.6 % Invalid Interpretation Code 10.0 - 50.0 % AO Workflow SS MCH (RBC) [Entitic mass] 21.9 pg Invalid Interpretation Code 27.0 - 31.2 pg AO Workflow SS MCHC 28.1 G/dL Invalid Interpretation Code 33.0 - 37.0 G/dL AO Workflow SS MCV (RBC) [Entitic vol] 77.8 fL Invalid Interpretation Code 80.0 - 94.0 fL AO Workflow SS Monocyte, Absolute 0.9 103/mcL Invalid Interpretation Code 0.2 - 1.0 10^3/mcL AO Workflow SS Monocytes/100 WBC (Bld) 13.6 % Invalid Interpretation Code 1.7 - 13.0 % AO Workflow SS Neutrophil, Absolute 4.9 103/mcL Invalid Interpretation Code 2.9 - 6.2 10^3/mcL AO Workflow SS Neutrophils/100 WBC (Bld) 71.8 % Invalid Interpretation Code 37.0 - 80.0 % AO Workflow SS Platelet 339 103/mcL Invalid Interpretation Code 130 - 400 10^3/mcL AO Workflow SS Platelet Estimate Normal *NA* (07/29/21 3:17 PM) Invalid Interpretation Code AO Workflow SS Platelet mean volume (Bld) [Entitic vol] 7.7 fL Invalid Interpretation Code 7.4 - 10.4 fL AO Workflow SS Potassium [Moles/Vol] 4.1 mmol/L Invalid Interpretation Code 3.5 - 5.1 mmol/L AO ADM SS RBC 3.62 106/mcL Invalid Interpretation Code 4.20 - 5.40 10^6/mcL AO Workflow SS Sodium [Moles/Vol] 141 mmol/L Invalid Interpretation Code 136 - 145 mmol/L AO ADM SS Urea nitrogen [Mass/Vol] 30 mg/dL Invalid Interpretation Code 7 - 18 mg/dL AO ADM SS Urea nitrogen/Creatinine [Mass ratio] 22 ratio Invalid Interpretation Code 7 - 27 ratio AO ADM SS WBC 6.9 103/mcL Invalid Interpretation Code 4.6 - 10.8 10^3/mcL AO Workflow SS LABORATORYOrdered By: Waldo Parada on 07-29-2021 Appearance (U) Clear (07/29/21 3:17 PM) Invalid Interpretation Code Clear AO Auto Urine SS Bilirubin Ql (U) Negative (07/29/21 3:17 PM) Invalid Interpretation Code Negative AO Auto Urine SS Color (U) Yellow (07/29/21 3:17 PM) Invalid Interpretation Code AO Auto Urine SS Glucose Test strip (U) [Mass/Vol] Negative Invalid Interpretation Code Negativemg/ dL AO Auto Urine SS Hemoglobin Auto test strip (U) [Mass/Vol] Trace *ABN* (07/29/21 3:17 PM) Invalid Interpretation Code Negative AO Auto Urine SS Ketones Ql (U) Negative Invalid Interpretation Code Negativemg/ dL AO Auto Urine SS UA Leuk Est Negative (07/29/21 3:17 PM) Invalid Interpretation Code Negative AO Auto Urine SS UA Nitrite Negative (07/29/21 3:17 PM) Invalid Interpretation Code Negative AO Auto Urine SS UA pH 5.5 (07/29/21 3:17 PM) Invalid Interpretation Code 5.0 - 8.0 AO Auto Urine SS UA Protein Negative Invalid Interpretation Code Negativemg/ dL AO Auto Urine SS UA Spec Grav 1.025 (07/29/21 3:17 PM) Invalid Interpretation Code 1.015-1.025 AO Auto Urine SS UA Specimen Type Clean Catch (07/29/21 3:17 PM) Invalid Interpretation Code AO Auto Urine SS UA Urobilinogen 0.2 E.U./dL Invalid Interpretation Code 0.2-1.0E.U. /dL AO Auto Urine SS LABORATORYOrdered By: SYSTEM SYSTEM on 07-29-2021 GFR 47 ml/min/1.73sqm Invalid Interpretation Code AO Chemistry S GFR Non- 39 ml/min/1.73sqm Invalid Interpretation Code AO Chemistry S Monocyte distribution width Auto (Bld) [Entitic vol] Not Performed 1 *NA* (07/29/21 3:17 PM) Invalid Interpretation Code 0.00 - 20.00 AO Hematology S Comment on above: Result Comment: MDW testing performed only on adult ER patients between the ages of 18-89 years. CNOVon 07-17-2021 CNOV Office Visit ([facility]) -- MEGGAN ARITA ([id number]) 1960 F Date Time Provider Department 07/17/21 9:45 AM MATT LEE During your visit today, we recorded the following information about you: Referring Provider: NO PCP [[id number]] Allergies As of Date: 07/17/2021 Noted Allergy Reaction CIPROFLOXACIN 11/10/2019 6 - Diarrhea Comments: Nausea and diarrhea BUSPAR (BUSPIRONE HCL) 09/14/2014 14 - Other: See Comments Comments: Insomnia CARAFATE (SUCRALFATE) 12/12/2006 Comments: tightens up chest unable to swallow CELEBREX (CELECOXIB) 11/06/2012 14 - Other: See Comments Comments: tachycardia, heart palpitations CHERATUSSIN 11/23/2013 9 - Itching CODEINE 02/27/2006 8 - GI Upset Comments: sick to her stomach but able to tolerate in Tylenol with codeine #3 DOXYCYCLINE 04/13/2013 5 - Intolerance 11 - Vomiting IODINE 04/08/2003 Comments: difficulty breathing, swelling, hives LATEX 04/08/2003 Comments: difficulty breathing and swelling LEVAQUIN (LEVOFLOXACIN) 04/15/2017 8 - GI Upset MELOXICAM 05/17/2013 2 - Rash Comments: pruritic rash within hours of taking med PENICILLINS 02/27/2006 7 - Swelling 12 - Shortness of Breath PREDNISONE 12/24/2009 1 - Mental Status Change VICODIN (HYDROCODONE-ACETAMINOPHE* 02/07/2005 9 - Itching Comments: swelling Date Reviewed: 04/30/2021 Reviewed by: Marquez Araya Ma - Fully Assessed Reason for Visit: Wound Care [485] Primary Visit Diagnosis:Peripheral vascular disease, unspecified (HCC) [I73.9] Order(s):US ARTERIAL PVR LOWER [[id number]] Order #: [id number] FUTURE Prescriptions as of 07/17/2021 - magnesium oxide (MAG-OX) 400 mg (241.3 mg magnesium) tablet Take 1 tablet by mouth twice daily. - sertraline (ZOLOFT) 100 mg tablet Take 1.5 tablets by mouth once daily. - fluticasone (FLONASE) 50 mcg/actuation nasal spray Use 2 Sprays in each nostril once daily as needed. - montelukast (SINGULAIR) 10 mg tablet Take 1 tablet by mouth daily at bedtime. - pantoprazole DR (PROTONIX) 40 mg tablet Take 1 tablet by mouth twice daily before meals (0600/1600). Take this dose for one month, then return to daily dosing. - losartan (COZAAR) 100 mg tablet Take 1 tablet by mouth once daily. - furosemide (LASIX) 40 mg tablet Take 2 tablets by mouth twice daily. - metOLazone (ZAROXOLYN) 5 mg tablet take 1 tablet by mouth 30 MINUTES PRIOR TO TAKING LASIX IF NEEDED FOR INCREASED SWELLING DIRECTED - LORazepam (ATIVAN) 1 mg tablet Take half to 1 whole tablet daily as needed - buPROPion XL (WELLBUTRIN XL) 150 mg 24 hr tablet Take 1 tablet by mouth once daily. - cyclobenzaprine (FLEXERIL) 5 mg tablet Take 1 tablet by mouth three times daily as needed. - oxaprozin (DAYPRO) 600 mg tablet Take 1-2 tablets by mouth once daily. as needed for knee pain. - mupirocin (BACTROBAN) 2 % cream Use up to three times a day. Location: left inner thigh - emollient combination no.114 (EUCERIN ADVANCED REPAIR) crea Apply 1 application to affected area once daily. - insulin degludec (TRESIBA FLEXTOUCH U-200) 200 unit/mL (3 mL) injection Inject 95 Units subcutaneously daily at bedtime. - albuterol (PROVENTIL) 2.5 mg /3 mL (0.083 %) nebulizer solution inhale contents of one vial in nebulizer every 6 hours if needed for wheezing and shortness of breath - ipratropium (ATROVENT) 0.02 % nebulizer solution Use 2.5 mL via nebulizer four times daily as needed (wheezing). Use over 5-15minutes. Use in addition to albuterol nebulizer. - benzonatate (TESSALON PERLES) 100 mg capsule Take 1 capsule by mouth three times daily as needed for cough. - topiramate (TOPAMAX) 50 mg tablet Take 1 tablet by mouth daily at bedtime. - gabapentin (NEURONTIN) 100 mg capsule Take 2 capsules by mouth daily at bedtime for 180 days. - iron polysaccharide complex (FERREX-150) 150 mg iron capsule Take 1 capsule by mouth twice daily. - mometasone-formoterol (DULERA) 200-5 mcg/actuation inhaler Inhale 2 Puffs as instructed twice daily. - ketoconazole (NIZORAL) 2 % cream apply to affected area OF RASH AND SURROUNDING AREA UNDER BREAST once daily - blood sugar diagnostic (BLOOD GLUCOSE TEST) test strip Test blood sugar(s) 4 times daily. Dx: Type 2 DM - Uncontrolled E11.65 Insulin: Yes - bismuth subsalicylate (PEPTO-BISMOL) 262 mg chew Take 2 tablets by mouth four times daily. - docusate sodium (COLACE) 100 mg capsule Take 2 capsules by mouth DAILY AT 6 PM. - CPAP AutoPAP 5-12 CM H2O with humidification. Mask (per patient preference) optional chin strap (if indicated) , filters, tubing, humidifier and lifetime supplies. - potassium chloride ER (K-DUR, KLOR-CON) 20 mEq tablet Take 2 tablets by mouth three times daily. - ipratropium bromide (ATROVENT) 42 mcg (0.06 %) nasal spray Use 2 Sprays in each nostril four times daily. - cetirizine (ZYRTEC) 10 mg tablet Take 1 tablet by (more content not included)... Normal [facility] - Microbiology an d Antimicrobial susceptibility Bacteria identified Cx Nom (Bld) No growth in 5 days. [facility] Work Phone: No Panel Information [facility] Vital Signs Date Time Vital Sign Value Performing Clinician Adriáni ari 11-10-2024 08:06-0400 Body temperature 98.01 [degF] Treatment Wstr Work Phone: [facility] 11-10-2024 08:06-0400 Diastolic blood pressure 72 mm[Hg] Treatment Wstr Work Phone: [facility] 11-10-2024 08:06-0400 Heart rate 62 /min Treatment Wstr Work Phone: [facility] 11-10-2024 08:06-0400 Respiratory rate 18 /min Treatment Wstr Work Phone: [facility] 11-10-2024 08:06-0400 SaO2% (BldA) [Mass fraction] 97 % Treatment Wstr Work Phone: [facility] 11-10-2024 08:06-0400 Systolic blood pressure 139 mm[Hg] Treatment Wstr Work Phone: [facility] 11-08-2024 11:00-0400 Body temperature 97.5 [degF] Treatment Wstr Work Phone: [facility] 11-08-2024 11:00-0400 Diastolic blood pressure 82 mm[Hg] Treatment Wstr Work Phone: [facility] 11-08-2024 11:00-0400 Heart rate 72 /min Treatment Wstr Work Phone: [facility] 11-08-2024 11:00-0400 SaO2% (BldA) [Mass fraction] 98 % Treatment Wstr Work Phone: [facility] 11-08-2024 11:00-0400 Systolic blood pressure 148 mm[Hg] Treatment Wstr Work Phone: [facility] 10-29-2024 10:06-0400 Body temperature 98.71 [degF] Rj Villalobosi DO Work Phone: [facility] 10-29-2024 10:06-0400 Diastolic blood pressure 65 mm[Hg] Rj Villalobosi DO Work Phone: [facility] 10-29-2024 10:06-0400 Heart rate 75 /min Rj Villalobosi DO Work Phone: [facility] 10-29-2024 10:06-0400 SaO2% (BldA) [Mass fraction] 95 % Rj Villalobosi DO Work Phone: [facility] 10-29-2024 10:06-0400 Systolic blood pressure 180 mm[Hg] Rj Villalobosi DO Work Phone: [facility] 10-29-2024 08:15-0400 Body temperature 98.1 [degF] Katya Elaine QUALITY REVIEW TRAINER.[employer] Work Phone: [facility] 10-29-2024 08:15-0400 Diastolic blood pressure 83 mm[Hg] Katya Elaine QUALITY REVIEW TRAINER.[employer] Work Phone: [facility] 10-29-2024 08:15-0400 Heart rate 82 /min Katya Elaine QUALITY REVIEW TRAINER.[employer] Work Phone: [facility] 10-29-2024 08:15-0400 Respiratory rate 16 /min Katya Elaine QUALITY REVIEW TRAINER.[employer] Work Phone: [facility] 10-29-2024 08:15-0400 SaO2% (BldA) [Mass fraction] 96 % Katya Elaine QUALITY REVIEW TRAINER.[employer] Work Phone: [facility] 10-29-2024 08:15-0400 Systolic blood pressure 149 mm[Hg] Katya Elaine QUALITY REVIEW TRAINER.[employer] Work Phone: [facility] 09-24-2024 11:28-0400 Body mass index (BMI) [Ratio] 53.98 kg/m2 Gavi Ureña Work Phone: [facility] 09-24-2024 11:28-0400 Body temperature 98.91 [degF] Gavi Ureña Work Phone: [facility] 09-24-2024 11:28-0400 Body weight 161.03 kg Gavi Ureña Work Phone: [facility] 09-24-2024 11:28-0400 Diastolic blood pressure 84 mm[Hg] Gavi Ureña Work Phone: [facility] 09-24-2024 11:28-0400 Heart rate 74 /min Gavi Ureña Work Phone: [facility] 09-24-2024 11:28-0400 SaO2% (BldA) [Mass fraction] 100 % Gavi Ureña Work Phone: [facility] 09-24-2024 11:28-0400 Systolic blood pressure 139 mm[Hg] Gavi Ureña Work Phone: [facility] 09-21-2024 10:27-0400 Body mass index (BMI) [Ratio] 51.63 kg/m2 Silvestre Susy QUALITY REVIEW TRAINER.[employer] Work Phone: [facility] 09-21-2024 10:27-0400 Body weight 158.6 kg Silvestre Susy QUALITY REVIEW TRAINER.[employer] Work Phone: [facility] 09-21-2024 10:27-0400 Diastolic blood pressure 80 mm[Hg] Silvestre Susy QUALITY REVIEW TRAINER.[employer] Work Phone: [facility] 09-21-2024 10:27-0400 Heart rate 72 /min Silvestre Susy QUALITY REVIEW TRAINER.[employer] Work Phone: [facility] 09-21-2024 10:27-0400 Respiratory rate 14 /min Silvestre Susy QUALITY REVIEW TRAINER.[employer] Work Phone: [facility] 09-21-2024 10:27-0400 SaO2% (BldA) [Mass fraction] 99 % Silvestre Susy QUALITY REVIEW TRAINER.[employer] Work Phone: [facility] 09-21-2024 10:27-0400 Systolic blood pressure 142 mm[Hg] Silvestre Susy QUALITY REVIEW TRAINER.MANAGER [employer] Work Phone: [facility] 09-07-2024 10:38-0400 Diastolic blood pressure 84 mm[Hg] Silvestre Susy QUALITY REVIEW TRAINER.MANAGER [employer] Work Phone: [facility] 09-07-2024 10:38-0400 Heart rate 68 /min Silvestre Susy QUALITY REVIEW TRAINER.[employer]GER [employer] Work Phone: [facility] 09-07-2024 10:38-0400 Respiratory rate 16 /min Silvestre Susy QUALITY REVIEW TRAINER.MA[employer]GER [employer] Work Phone: [facility] 09-07-2024 10:38-0400 Systolic blood pressure 160 mm[Hg] Silvestre Susy QUALITY REVIEW TRAINER.MA[employer]GER [employer] Work Phone: [facility] 08-24-2024 10:54-0400 Body temperature 98.2 [degF] Gaviosmar Ureña Work Phone: [facility] 08-24-2024 10:54-0400 Diastolic blood pressure 84 mm[Hg] Gavi Ureña Work Phone: [facility] 08-24-2024 10:54-0400 Heart rate 72 /min Gavi Ureña Work Phone: [facility] 08-24-2024 10:54-0400 SaO2% (BldA) [Mass fraction] 96 % Gavi Ureña Work Phone: [facility] 08-24-2024 10:54-0400 Systolic blood pressure 182 mm[Hg] Gavi Ureña Work Phone: [facility] 08-16-2024 10:04-0400 Diastolic blood pressure 81 mm[Hg] Silvestre Susy QUALITY REVIEW TRAINER.MA[employer]GER [employer] Work Phone: [facility] 08-16-2024 10:04-0400 Systolic blood pressure 168 mm[Hg] Silvestre Susy QUALITY REVIEW TRAINER.[employer] Work Phone: [facility] 08-16-2024 10:01-0400 Heart rate 77 /min Silvestre Susy QUALITY REVIEW TRAINER.MA[employer] Work Phone: [facility] 08-16-2024 10:01-0400 SaO2% (BldA) [Mass fraction] 96 % Silvestre Susy QUALITY REVIEW TRAINER.MA[employer] Work Phone: [facility] 07-18-2024 11:08-0400 Body height 175.3 cm Zayda Praisler-Wood QUALITY REVIEW TRAINER.MANAGER [employer] Work Phone: [facility] 07-18-2024 11:08-0400 Body mass index (BMI) [Ratio] 58.63 kg/m2 Zayda Praisler-Wood QUALITY REVIEW TRAINER.MANAGER [employer] Work Phone: [facility] 07-18-2024 11:08-0400 Body temperature 98.4 [degF] Zayda Praisler-Wood QUALITY REVIEW TRAINER.MA[employer]GER [employer] Work Phone: [facility] 07-18-2024 11:08-0400 Body weight 180.08 kg Zayda Praisler-Wood QUALITY REVIEW TRAINER.MANAGER [employer] Work Phone: [facility] 07-18-2024 11:08-0400 Diastolic blood pressure 70 mm[Hg] Zayda Praisler-Wood QUALITY REVIEW TRAINER.MANAGER [employer] Work Phone: [facility] 07-18-2024 11:08-0400 Heart rate 76 /min Zayda Praisler-Wood QUALITY REVIEW TRAINER.MANAGER [employer] Work Phone: [facility] 07-18-2024 11:08-0400 SaO2% (BldA) [Mass fraction] 98 % Zayda Praisler-Wood QUALITY REVIEW TRAINER.MA[employer]GER [employer] Work Phone: [facility] 07-18-2024 11:08-0400 Systolic blood pressure 120 mm[Hg] Zayda Praisler-Wood QUALITY REVIEW TRAINER.MA[employer] Work Phone: [facility] 06-23-2024 19:56-0400 Body mass index (BMI) [Ratio] 40.17 kg/m2 Brenda Larouere QUALITY REVIEW TRAINER.MANAGER [employer] Work Phone: [facility] 06-23-2024 19:56-0400 Body temperature 97.39 [degF] Brenda Larouere QUALITY REVIEW TRAINER.MANAGER [employer] Work Phone: [facility] 06-23-2024 19:56-0400 Body weight 123.38 kg Brenda Larouere QUALITY REVIEW TRAINER.MANAGER [employer] Work Phone: [facility] 06-23-2024 19:56-0400 Diastolic blood pressure 78 mm[Hg] Brenda Larouere QUALITY REVIEW TRAINER.MANAGER [employer] Work Phone: [facility] 06-23-2024 19:56-0400 Heart rate 86 /min Brenda Larouere QUALITY REVIEW TRAINER.MANAGER [employer] Work Phone: [facility] 06-23-2024 19:56-0400 Respiratory rate 18 /min Brenda Larouere QUALITY REVIEW TRAINER.MA[employer]GER [employer] Work Phone: [facility] 06-23-2024 19:56-0400 SaO2% (BldA) [Mass fraction] 99 % Brenda Larouere QUALITY REVIEW TRAINER.MANAGER [employer] Work Phone: [facility] 06-23-2024 19:56-0400 Systolic blood pressure 126 mm[Hg] Brenda Larouere QUALITY REVIEW TRAINER.MANAGER [employer] Work Phone: [facility] 05-07-2024 09:21-0400 Diastolic blood pressure 82 mm[Hg] Silvestre Susy QUALITY REVIEW TRAINER.MANAGER [employer] Work Phone: [facility] 05-07-2024 09:21-0400 Heart rate 74 /min Silvestre Susy QUALITY REVIEW TRAINER.MANAGER [employer] Work Phone: [facility] 05-07-2024 09:21-0400 SaO2% (BldA) [Mass fraction] 96 % Silvestre Susy QUALITY REVIEW TRAINER.MANAGER [employer] Work Phone: [facility] 05-07-2024 09:21-0400 Systolic blood pressure 144 mm[Hg] Silvestre Susy QUALITY REVIEW TRAINER.MANAGER [employer] Work Phone: [facility] 11-28-2023 12:50-0400 Diastolic blood pressure 76 mm[Hg] Silvestre Susy QUALITY REVIEW TRAINER.MANAGER [employer] Work Phone: [facility] 11-28-2023 12:50-0400 Heart rate 76 /min Silvestre Susy QUALITY REVIEW TRAINER.MANAGER [employer] Work Phone: [facility] 11-28-2023 12:50-0400 SaO2% (BldA) [Mass fraction] 97 % Silvestre Susy QUALITY REVIEW TRAINER.MANAGER [employer] Work Phone: [facility] 11-28-2023 12:50-0400 Systolic blood pressure 128 mm[Hg] Silvestre Susy QUALITY REVIEW TRAINER.MANAGER [employer] Work Phone: [facility] 10-21-2023 10:58-0400 Diastolic blood pressure 82 mm[Hg] Silvestre Susy QUALITY REVIEW TRAINER.MANAGER [employer] Work Phone: [facility] 10-21-2023 10:58-0400 Systolic blood pressure 138 mm[Hg] Silvestre Susy QUALITY REVIEW TRAINER.MANAGER [employer] Work Phone: [facility] 10-21-2023 10:50-0400 Heart rate 75 /min Silvestre Susy QUALITY REVIEW TRAINER.MANAGER [employer] Work Phone: [facility] 10-21-2023 10:50-0400 SaO2% (BldA) [Mass fraction] 96 % Silvestre Susy QUALITY REVIEW TRAINER.MANAGER [employer] Work Phone: [facility] 10-08-2023 11:21-0400 Body height 175.3 cm Jame Castañeda MD Work Phone: [facility] 10-08-2023 11:21-0400 Body mass index (BMI) [Ratio] 48.73 kg/m2 Jame Castañeda MD Work Phone: [facility] 10-08-2023 11:21-0400 Body weight 149.69 kg Jame Castañeda MD Work Phone: [facility] 10-08-2023 11:21-0400 Diastolic blood pressure 72 mm[Hg] Jame Castañeda MD Work Phone: [facility] 10-08-2023 11:21-0400 Systolic blood pressure 124 mm[Hg] Jame Castañeda MD Work Phone: [facility] 08-27-2023 13:26-0400 Diastolic blood pressure 78 mm[Hg] Silvestre Susy QUALITY REVIEW TRAINER.MANAGER [employer] Work Phone: [facility] 08-27-2023 13:26-0400 Heart rate 80 /min Silvestre Susy QUALITY REVIEW TRAINER.MANAGER [employer] Work Phone: [facility] 08-27-2023 13:26-0400 Respiratory rate 20 /min Silvestre Susy QUALITY REVIEW TRAINER.MANAGER [employer] Work Phone: [facility] 08-27-2023 13:26-0400 Systolic blood pressure 150 mm[Hg] Silvestre Susy QUALITY REVIEW TRAINER.MANAGER [employer] Work Phone: [facility] 08-04-2023 13:17-0400 Body temperature 97.5 [degF] Fernanda Bryant QUALITY REVIEW TRAINER.MANAGER [employer] Work Phone: [facility] 08-04-2023 13:17-0400 Diastolic blood pressure 68 mm[Hg] Fernanda Bryant QUALITY REVIEW TRAINER.MANAGER [employer] Work Phone: [facility] 08-04-2023 13:17-0400 Heart rate 79 /min Fernanda Bryant APRN.MANAGER [employer] Work Phone: [facility] 08-04-2023 13:17-0400 Respiratory rate 20 /min Fernanda Bryant APRN.MANAGER [employer] Work Phone: [facility] 08-04-2023 13:17-0400 SaO2% (BldA) [Mass fraction] 96 % Fernanda Bryant APRN.MANAGER [employer] Work Phone: [facility] 08-04-2023 13:17-0400 Systolic blood pressure 144 mm[Hg] Fernanda Bryant APRN.MANAGER [employer] Work Phone: [facility] 01-01-2023 10:30-0500 Diastolic blood pressure 86 mm[Hg] Silvestre Susy QUALITY REVIEW TRAINER.MANAGER [employer] Work Phone: [facility] 01-01-2023 10:30-0500 Systolic blood pressure 160 mm[Hg] Silvestre Susy QUALITY REVIEW TRAINER.MANAGER [employer] Work Phone: [facility] 01-01-2023 10:28-0500 Heart rate 81 /min Silvestre Susy QUALITY REVIEW TRAINER.MANAGER [employer] Work Phone: [facility] 01-01-2023 10:28-0500 SaO2% (BldA) [Mass fraction] 96 % Silvestre Susy QUALITY REVIEW TRAINER.MANAGER [employer] Work Phone: [facility] 11-05-2022 11:37-0400 Diastolic blood pressure 86 mm[Hg] Silvestre Susy QUALITY REVIEW TRAINER.MANAGER [employer] Work Phone: [facility] 11-05-2022 11:37-0400 Systolic blood pressure 148 mm[Hg] Silvestre Susy QUALITY REVIEW TRAINER.MANAGER [employer] Work Phone: [facility] 11-05-2022 11:35-0400 Heart rate 74 /min Silvestre Susy QUALITY REVIEW TRAINER.MANAGER [employer] Work Phone: [facility] 11-05-2022 11:35-0400 SaO2% (BldA) [Mass fraction] 97 % Silvestre Susy QUALITY REVIEW TRAINER.MANAGER [employer] Work Phone: [facility] 08-21-2022 16:34-0400 Body temperature 96.3 [degF] Erica Cannon MD Work Phone: [facility] 08-21-2022 16:34-0400 Body weight 149.69 kg Erica Cannon MD Work Phone: [facility] 08-21-2022 16:34-0400 Diastolic blood pressure 82 mm[Hg] Erica Cannon MD Work Phone: [facility] 08-21-2022 16:34-0400 Heart rate 77 /min Erica Cannon MD Work Phone: [facility] 08-21-2022 16:34-0400 Respiratory rate 18 /min Erica Cannon MD Work Phone: [facility] 08-21-2022 16:34-0400 SaO2% (BldA) [Mass fraction] 100 % Erica Cannon MD Work Phone: [facility] 08-21-2022 16:34-0400 Systolic blood pressure 144 mm[Hg] Erica Cannon MD Work Phone: [facility] 08-19-2022 14:15-0400 Body temperature 98.6 [degF] Dr. Erica Cannon Work Phone: 2(364)450-622079 [place] [address] 08-19-2022 14:15-0400 Diastolic blood pressure 65 mm[Hg] Dr. Erica Cannon Work Phone: 3(531)074-398549 [place] [address] 08-19-2022 14:15-0400 Heart rate 80 /min Dr. Erica Cannon Work Phone: 4(605)669-476349 [place] [address] 08-19-2022 14:15-0400 Respiratory rate 18 /min Dr. Erica Cannon Work Phone: 2(412)014-824449 [place] [address] 08-19-2022 14:15-0400 SaO2% (BldA) [Mass fraction] 98 % Dr. Erica Cannon Work Phone: 2(059)842-368749 [place] [address] 08-19-2022 14:15-0400 Systolic blood pressure 151 mm[Hg] Dr. Erica Cannon Work Phone: 2(650)503-351449 [place] [address] 08-16-2022 13:31-0400 Inhaled oxygen flow rate 1.5 L/min Dr. Erica Cannon Work Phone: 1(865)131-732949 [place] [address] 08-15-2022 11:02-0400 Body height 172.[address] Erica Cannon Work Phone: 5(250)226-527949 [place] [address] 08-15-2022 11:02-0400 Body weight 151.[address] Erica Cannon Work Phone: 0(317)680-624449 [place] [address] 08-15-2022 07:16-0400 Inhaled oxygen concentration 21 % Dr. Erica Cannon Work Phone: 1(798)265-626549 [place] [address] 08-14-2022 22:17-0400 Body mass index (BMI) [Ratio] 50.8 kg/m2 Dr. Erica Cannon Work Phone: 0(555)701-661249 [place] [address] 08-14-2022 22:04-0400 Body temperature 97.6 [degF] [facility] 08-14-2022 22:04-0400 Diastolic blood pressure 52 mm[Hg] [facility] 08-14-2022 22:04-0400 Heart rate 76 /min [facility] 08-14-2022 22:04-0400 Respiratory rate 21 /min [facility] 08-14-2022 22:04-0400 SaO2% (BldA) [Mass fraction] 95 % [facility] 08-14-2022 22:04-0400 Systolic blood pressure 115 mm[Hg] [facility] 08-14-2022 20:44-0400 Body mass index (BMI) [Ratio] 47.9 kg/m2 [facility] 08-14-2022 20:44-0400 Body weight 143 kg [facility] 08-14-2022 17:59-0400 Body height 172.72 cm [facility] 08-12-2022 14:45-0400 Body weight 153.77 kg Katya Older QUALITY REVIEW TRAINER.MANAGER [employer] Work Phone: [facility] 08-12-2022 14:45-0400 Diastolic blood pressure 83 mm[Hg] Katya Older QUALITY REVIEW TRAINER.MANAGER [employer] Work Phone: [facility] 08-12-2022 14:45-0400 Heart rate 87 /min Katya Older QUALITY REVIEW TRAINER.MANAGER [employer] Work Phone: [facility] 08-12-2022 14:45-0400 Respiratory rate 16 /min Katya Older QUALITY REVIEW TRAINER.MANAGER [employer] Work Phone: [facility] 08-12-2022 14:45-0400 Systolic blood pressure 136 mm[Hg] Katya Older QUALITY REVIEW TRAINER.MANAGER [employer] Work Phone: [facility] 08-07-2022 11:08-0400 Body height 172.7 cm Pacc 1 Work Phone: [facility] 08-07-2022 11:08-0400 Body temperature 97.3 [degF] Pacc 1 Work Phone: [facility] 08-07-2022 11:08-0400 Body weight 157.4 kg Pacc 1 Work Phone: [facility] 08-07-2022 11:08-0400 Diastolic blood pressure 68 mm[Hg] Pacc 1 Work Phone: [facility] 08-07-2022 11:08-0400 Heart rate 66 /min Pacc 1 Work Phone: [facility] 08-07-2022 11:08-0400 Respiratory rate 16 /min Pacc 1 Work Phone: [facility] 08-07-2022 11:08-0400 SaO2% (BldA) [Mass fraction] 96 % Pacc 1 Work Phone: [facility] 08-07-2022 11:08-0400 Systolic blood pressure 108 mm[Hg] Pacc 1 Work Phone: [facility] 11-29-2021 09:33-0400 Diastolic blood pressure 63 mm[Hg] Dr. Erica Cannon Work Phone: [facility] Work Phone: 11-29-2021 09:33-0400 Systolic blood pressure 144 mm[Hg] Dr. Erica Cannon Work Phone: [facility] Work Phone: 11-29-2021 07:10-0400 Body height 172.[address] Erica Cannon Work Phone: [facility] Work Phone: 11-29-2021 07:10-0400 Body mass index (BMI) [Ratio] 67.8 kg/m2 Dr. Erica Cannon Work Phone: [facility] Work Phone: 11-29-2021 07:10-0400 Body temperature 98.1 [degF] Dr. Erica Cannon Work Phone: [facility] Work Phone: 11-29-2021 07:10-0400 Body weight 202.[address] Erica Cannon Work Phone: [facility] Work Phone: 11-29-2021 07:10-0400 Heart rate 81 /min Dr. Erica Cannon Work Phone: [facility] Work Phone: 11-29-2021 07:10-0400 Respiratory rate 18 /min Dr. Erica Cannon Work Phone: [facility] Work Phone: 11-29-2021 07:10-0400 SaO2% (BldA) [Mass fraction] 97 % Dr. Erica Cannon Work Phone: [facility] Work Phone: 11-20-2021 09:11-0400 Body temperature 97.9 [degF] Dr. Erica Cannon Work Phone: [facility] Work Phone: 11-20-2021 09:11-0400 Diastolic blood pressure 68 mm[Hg] Dr. Erica Cannon Work Phone: [facility] Work Phone: 11-20-2021 09:11-0400 Heart rate 72 /min Dr. Erica Cannon Work Phone: [facility] Work Phone: 11-20-2021 09:11-0400 Inhaled oxygen flow rate 2 L/min Dr. Erica Cannon Work Phone: [facility] Work Phone: 11-20-2021 09:11-0400 Respiratory rate 16 /min Dr. Erica Cannon Work Phone: [facility] Work Phone: 11-20-2021 09:11-0400 SaO2% (BldA) [Mass fraction] 94 % Dr. Erica Cannon Work Phone: [facility] Work Phone: 11-20-2021 09:11-0400 Systolic blood pressure 139 mm[Hg] Dr. Erica Cannon Work Phone: [facility] Work Phone: 11-20-2021 05:07-0400 Body weight 205.[address] Erica Cannon Work Phone: [facility] Work Phone: 11-20-2021 04:19-0400 Inhaled oxygen concentration 30 % Dr. Erica Cannon Work Phone: [facility] Work Phone: 11-19-2021 09:36-0400 Body height 172.[address] Erica Cannon Work Phone: [facility] Work Phone: 11-18-2021 22:20-0400 Body mass index (BMI) [Ratio] 67.7 kg/m2 Dr. Erica Cannon Work Phone: [facility] Work Phone: 11-18-2021 20:48-0400 Diastolic blood pressure 85 mm[Hg] Dr. Erica Cannon Work Phone: [facility] Work Phone: 11-18-2021 20:48-0400 Heart rate 106 /min Dr. Erica Cannon Work Phone: [facility] Work Phone: 11-18-2021 20:48-0400 Inhaled oxygen flow rate 2 L/min Dr. Erica Cannon Work Phone: [facility] Work Phone: 11-18-2021 20:48-0400 Respiratory rate 25 /min Dr. Erica Cannon Work Phone: [facility] Work Phone: 11-18-2021 20:48-0400 SaO2% (BldA) [Mass fraction] 93 % Dr. Erica Cannon Work Phone: [facility] Work Phone: 11-18-2021 20:48-0400 Systolic blood pressure 134 mm[Hg] Dr. Erica Cannon Work Phone: [facility] Work Phone: 11-18-2021 20:33-0400 Body temperature 98.2 [degF] Dr. Erica Cannon Work Phone: [facility] Work Phone: 11-18-2021 19:11-0400 Body height 172.[address] Erica Cannon Work Phone: [facility] Work Phone: 11-18-2021 19:11-0400 Body mass index (BMI) [Ratio] 67.1 kg/m2 Dr. Erica Cannon Work Phone: [facility] Work Phone: 11-18-2021 19:11-0400 Body weight 200.[address] Erica Cannon Work Phone: [facility] Work Phone: 11-13-2021 11:31-0400 Body temperature 98.7 [degF] Dr. Erica Cannon Work Phone: [facility] Work Phone: 11-13-2021 11:31-0400 Diastolic blood pressure 70 mm[Hg] Dr. Erica Cannon Work Phone: [facility] Work Phone: 11-13-2021 11:31-0400 Heart rate 76 /min Dr. Erica Cannon Work Phone: [facility] Work Phone: 11-13-2021 11:31-0400 Respiratory rate 16 /min Dr. Erica Cannon Work Phone: [facility] Work Phone: 11-13-2021 11:31-0400 SaO2% (BldA) [Mass fraction] 98 % Dr. Erica Cannon Work Phone: [facility] Work Phone: 11-13-2021 11:31-0400 Systolic blood pressure 168 mm[Hg] Dr. Erica Cannon Work Phone: [facility] Work Phone: 11-13-2021 11:29-0400 Body mass index (BMI) [Ratio] 67.6 kg/m2 Dr. Erica Cannon Work Phone: [facility] Work Phone: 11-13-2021 11:29-0400 Body weight 201.[address] Erica Cannon Work Phone: [facility] Work Phone: 08-16-2021 16:11-0400 Heart rate 84 /min Dr. Erica Cannon Work Phone: [facility] Work Phone: 08-16-2021 16:11-0400 Respiratory rate 16 /min Dr. Erica Cannon Work Phone: [facility] Work Phone: 08-16-2021 15:04-0400 Inhaled oxygen flow rate 2 L/min Dr. Erica Cannon Work Phone: [facility] Work Phone: 08-16-2021 14:55-0400 Body temperature 97.9 [degF] Dr. Erica Cannon Work Phone: [facility] Work Phone: 08-16-2021 14:55-0400 Diastolic blood pressure 91 mm[Hg] Dr. Erica Cannon Work Phone: [facility] Work Phone: 08-16-2021 14:55-0400 SaO2% (BldA) [Mass fraction] 96 % Dr. Erica Cannon Work Phone: [facility] Work Phone: 08-16-2021 14:55-0400 Systolic blood pressure 139 mm[Hg] Dr. Erica Cannon Work Phone: [facility] Work Phone: 08-16-2021 03:16-0400 Inhaled oxygen concentration 28 % Dr. Erica Cannon Work Phone: [facility] Work Phone: 08-12-2021 11:54-0400 Body height 172.[address] Erica Cannon Work Phone: [facility] Work Phone: 08-12-2021 11:54-0400 Body weight [address] Erica Cannon Work Phone: [facility] Work Phone: 08-02-2021 06:31-0400 Body mass index (BMI) [Ratio] 72.1 kg/m2 Dr. Erica Cannon Work Phone: [facility] Work Phone: 07-31-2021 17:06-0400 Body temperature 97.5 [degF] [facility] Work Phone: 07-31-2021 17:06-0400 Diastolic blood pressure 63 mm[Hg] [facility] Work Phone: 07-31-2021 17:06-0400 Heart rate 73 /min [facility] Work Phone: 07-31-2021 17:06-0400 Respiratory rate 23 /min [facility] Work Phone: 07-31-2021 17:06-0400 SaO2% (BldA) [Mass fraction] 97 % [facility] Work Phone: 07-31-2021 17:06-0400 Systolic blood pressure 105 mm[Hg] [facility] Work Phone: 07-31-2021 13:31-0400 Body height 170.18 cm [facility] Work Phone: 07-31-2021 13:31-0400 Body mass index (BMI) [Ratio] 70.4 kg/m2 [facility] Work Phone: 07-31-2021 [id number] Body weight 204.11 kg [facility] Work Phone: 07-29-2021 15:14-0400 Body temperature 97.52 [degF] PRISCILA QUEVEDO MD [facility] 07-29-2021 15:14-0400 Diastolic blood pressure 80 mm[Hg] PRISCILA QUEVEDO MD [facility] 07-29-2021 15:14-0400 Heart rate 79 /min PRISCILA QUEVEDO MD [facility] 07-29-2021 15:14-0400 Respiratory rate 18 /min PRISCILA QUEVEDO MD [facility] 07-29-2021 15:14-0400 Systolic blood pressure 138 mm[Hg] PRISCILA QUEVEDO MD [facility] Encounters Encounter Date Encounter Type Care Provider Facility Start: 12-18-2024 ambulatory [facility] Facility: [facility] Start: 12-08-2024 End: 12-08-2024 ambulatory [facility] Facility:[facility] Start: 12-03-2024 End: 12-03-2024 ambulatory RJ A MASCI Facility:[facility] Start: 12-03-2024 End: 12-03-2024 ambulatory RJ A MASCI Facility:[facility] Start: 11-29-2024 End: 11-29-2024 ambulatory ERICA CANNON Facility:[facility] Start: 11-25-2024 End: 11-25-2024 ambulatory LYDIA NORTH Facility:[facility] Start: 11-17-2024 End: 11-17-2024 ambulatory RJ A MASCI Facility:[facility] Start: 11-15-2024 End: 11-15-2024 ambulatory RJ A MASCI Facility:[facility] Start: 11-12-2024 End: 11-12-2024 ambulatory RJ A MASCI Facility:[facility] Start: 11-11-2024 End: 11-11-2024 ambulatory RJ A MASCI Facility:[facility] Start: 11-10-2024 End: 11-10-2024 ambulatory Treatment 15 [facility] Work Phone: Hematology/Oncology Comment on above: Iron malabsorption ( HCC) (Primary Dx); Anemia associated with stage 3 chronic renal failure (HCC) Start: 11-08-2024 End: 11-08-2024 ambulatory Treatment 15 [facility] Work Phone: Hematology/Oncology Comment on above: Iron malabsorption ( HCC) (Primary Dx); Anemia associated with stage 3 chronic renal failure (HCC) Start: 11-07-2024 End: 11-08-2024 Telephone encounter Rj Dempsey DO Work Phone: Hematology/Oncology Comment on above: Results Start: 11-01-2024 End: 11-03-2024 Telephone encounter Rj Dempsey DO Work Phone: Hematology/Oncology Comment on above: Results Start: 11-01-2024 End: 11-01-[address] Sam Goodson DO -[facility] Work Phone: Start: 11-01-2024 End: 11-01-[address] 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); Anemia, unspecified type Start: 10-26-2024 End: 10-27-2024 Refill Erica Cannon MD Work Phone: [facility] [place] Comment on above: Refill Request Start: 10-08-2024 End: 10-09-2024 Refill Erica Cannon MD Work Phone: [facility] [place] Comment on above: Refill Request Start: 09-30-2024 End: 09-30-2024 ambulatory TOM BOLAÑOS Facility:[facility] Start: 09-24-2024 End: 09-24-2024 Patient encounter procedure Gavi Ureña Work Phone: Hematology/Oncology Start: 09-24-2024 End: 09-24-2024 ambulatory Gavi Ureña Work Phone: Hematology/Oncology Comment on above: 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); Sensory neuronopathy; Low iron; Anemia due to folic acid deficiency, unspecified deficiency type Start: 09-21-2024 End: 09-28-2024 Telephone encounter Erica Cannon MD Work Phone: [facility] [place] Comment on above: Medication Problem ( victoza) Start: 09-21-2024 End: 09-21-2024 ambulatory SILVESTRE JAIN Facility:[facility] Start: 09-21-2024 End: 09-21-2024 Patient encounter procedure Silvestre Jain QUALITY REVIEW TRAINER.[employer] Work Phone: [facility] [place] Comment on above: Abdominal pain, left upper quadrant (Primary Dx); Left sided abdominal pain; Diarrhea, unspecified type; Nausea without vomiting; Type 2 diabetes (HCC); Concern about memory Start: 09-21-2024 End: 09-21-2024 ambulatory SILVESTRE JAIN Facility:[facility] Start: 09-20-2024 End: 09-20-2024 ambulatory Erica Cannon MD Work Phone: [facility] [place] Comment on above: Abdominal Pain Start: 09-14-2024 End: 10-15-2024 ambulatory Erica Cannon MD Work Phone: [facility] [place] Start: 09-08-2024 End: 09-13-2024 Telephone encounter Silvestre Jain QUALITY REVIEW TRAINER.MANAGER [employer]ALITY SYSTEMS Work Phone: [facility] [place] Comment on above: Orders Start: 09-07-2024 End: 09-09-2024 Telephone encounter Erica Cannon MD Work Phone: [facility] [place] Comment on above: Insurance Authorizat ion (victoza); Medication Problem Start: 09-07-2024 End: 09-07-2024 Patient encounter procedure Silvestre Jain QUALITY REVIEW TRAINER.MANAGER QUALITY SYSTEMS Work Phone: [facility] [place] Comment on above: Type 2 diabetes (HCC ) (Primary Dx); Impaired mobility and activities of daily living; Class 3 severe obesity due to excess calories with body mass index (BMI) of 50.0 to 59.9 in adult, unspecified whether serious comorbidity present (HCC); Iron deficiency anemia, unspecified iron deficiency anemia type; Primary hypertension Start: 09-07-2024 End: 09-07-2024 [facility] SILVESTRE JAIN Facility:[facility] Start: 09-03-2024 End: 10-08-2024 Refill Erica Cannon MD Work Phone: [facility] [place] Comment on above: Refill Request Start: 08-30-2024 End: 08-31-2024 Refill Erica Cannon MD Work Phone: [facility] [place] Comment on above: Refill Request Insurance Authorizat ion Start: 08-24-2024 End: 08-24-2024 ambulatory GAVI UREÑA Facility:[facility] Start: 08-24-2024 End: 08-24-2024 ambulatory Gavi Ureña Work Phone: Hematology/Oncology Comment on above: Anemia, unspecified type (Primary Dx); Iron deficiency anemia, unspecified iron deficiency anemia type Start: 08-24-2024 End: 08-24-2024 Patient encounter procedure Gavi Brownight Work Phone: Hematology/Oncology Start: 08-18-2024 End: 08-18-2024 Telephone encounter Neetu Holley MD Work Phone: Hematology/Oncology Comment on above: New Patient Start: 08-17-2024 End: 08-18-2024 Follow-up encounter Silvestre Jain APRN.MANAGER [employer]ALITY [employer]S Work Phone: [facility] [place] Start: 08-16-2024 End: 08-16-2024 ambulatory [facility] Facility:[facility] Start: 08-16-2024 End: 08-16-2024 Patient encounter procedure Silvestre Jain APRN.MANAGER [employer]AL[employer]S Work Phone: [facility] [place] Comment on above: Other fatigue (Prima ry Dx); Obstructive sleep apnea; Allergic rhinitis, unspecified seasonality, unspecified trigger; Type 2 diabetes (HCC); Iron deficiency anemia, unspecified iron deficiency anemia type; Vitamin D deficiency; Class 3 severe obesity due to excess calories with body mass index (BMI) of 50.0 to 59.9 in adult, unspecified whether serious comorbidity present (HCC); Encounter for therapeutic drug monitoring Start: 08-16-2024 End: 08-16-2024 ambulatory [facility] Facility:[facility] Start: 07-27-2024 End: 07-28-2024 Telephone encounter Silvestre Jain APRN.MANAGER [employer]ALITY SYSTEMS Work Phone: [facility] [place] Comment on above: Sphincter Problems Start: 07-26-2024 End: 07-26-2024 Telephone encounter Erica Cannon MD Work Phone: [facility] [place] Comment on above: Orders Start: 07-19-2024 End: 07-19-2024 Follow-up encounter Gregoria Patton APRN.MANAGER QUALITY SYSTEMS Work Phone: [facility] Comment on above: Results Start: 07-18-2024 End: 07-18-2024 Patient encounter procedure Zayda Jackson QUALITY REVIEW TRAINER.MANAGER QUALITY SYSTEMS Work Phone: [facility] Comment on above: Dysuria (Primary Dx) ; Urinary tract infection with hematuria, site unspecified Start: 07-18-2024 End: 07-18-2024 ambulatory ZAYDA JACKSON Facility:[facility] Start: 07-16-2024 End: 07-16-[address] Raysa Knox MD -[facility] Work Phone: Start: 07-16-2024 End: 07-21-2024 Refill Erica Cannon MD Work Phone: [facility] [place] Comment on above: Refill Request Start: 07-06-2024 End: 07-06-2024 Refill Erica Cannon MD Work Phone: [facility] [place] Comment on above: Refill Request Start: 06-25-2024 End: 06-25-2024 Follow-up encounter Freeman Lundy APRN.MANAGER QUALITY SYSTEMS Work Phone: [facility] Start: 06-23-2024 End: 06-23-2024 ambulatory BRENDA MONACO Facility:[facility] Start: 06-23-2024 End: 06-23-2024 Patient encounter procedure Brenda Monaco QUALITY REVIEW TRAINER.MANAGER QUALITY SYSTEMS Work Phone: [facility] Comment on above: Acute cystitis with hematuria (Primary Dx); Urinary frequency Start: 06-23-2024 End: 06-23-2024 Telephone encounter Erica Cannon MD Work Phone: [facility] [place] Comment on above: Urinary Problem (pro bable UTI) Start: 06-22-2024 End: 06-22-2024 Patient encounter procedure Tom Bolaños Work Phone: Podiatry Comment on above: Onychomycosis (Prima ry Dx); Pain in toe of left foot; Pain in toe of right foot; Diabetic polyneuropathy associated with type 2 diabetes mellitus (HCC) Start: 06-22-2024 End: 06-22-2024 ambulatory TOM BOLAÑOS Facility:[facility] Start: 06-08-2024 End: 06-08-2024 Refill Erica Cannon MD Work Phone: [facility] [place] Comment on above: Refill Request Start: 06-07-2024 End: 06-08-2024 Telephone encounter Silvestre Jain APRN.MANAGER QUALITY SYSTEMS Work Phone: [facility] [place] Comment on above: OV notes Start: 06-03-2024 End: 06-04-2024 Telephone encounter Erica Cannon MD Work Phone: [facility] [place] Comment on above: DME Request Start: 05-31-2024 End: 05-31-2024 Refill Erica Cannon MD Work Phone: [facility] [place] Comment on above: Refill Request Start: 05-22-2024 End: 05-24-2024 Telephone encounter Erica Cannon MD Work Phone: [facility] [place] Comment on above: Orders Start: 05-11-2024 End: 05-11-2024 Refill Erica Cannon MD Work Phone: [facility] [place] Comment on above: Refill Request Start: 05-07-2024 End: 05-07-2024 ambulatory SILVESTRE JAIN Facility:[facility] Start: 05-07-2024 End: 05-07-2024 Patient encounter procedure Silvestre Jain QUALITY REVIEW TRAINER.MANAGER [employer]ALITY SYSTEMS Work Phone: [facility] [place] Comment on above: Chronic pain of righ t knee (Primary Dx); Constipation, unspecified constipation type; Pelvic pain; Weight loss counseling, encounter for Start: 04-28-2024 End: 06-28-2024 Follow-up encounter Erica Cannon MD Work Phone: [facility] [place] Start: 04-24-2024 End: 04-29-2024 Telephone encounter Erica Cannon MD Work Phone: [facility] [place] Comment on above: Results Start: 04-23-2024 End: 04-23-2024 ambulatory ERICA Justin DELONGWAQAR Facility:[facility] Start: 04-23-2024 End: 04-23-2024 Patient encounter procedure Tom Bolaños Work Phone: Podiatry Comment on above: Onychomycosis (Prima ry Dx); Pain in toe of left foot; Pain in toe of right foot; Diabetic polyneuropathy associated with type 2 diabetes mellitus (HCC) Start: 04-17-2024 End: 05-12-2024 ambulatory SELF Facility:[facility] Start: 04-12-2024 End: 04-12-2024 Refill Erica Cannon MD Work Phone: [facility] [place] Comment on above: Refill Request Start: 03-26-2024 End: 03-27-2024 Telephone encounter Erica Cannon MD Work Phone: [facility] [place] Comment on above: Patient Update Start: 03-22-2024 End: 03-22-2024 Refill Erica Cannon MD Work Phone: [facility] [place] Comment on above: Refill Request Start: 03-20-2024 End: 03-20-2024 ambulatory ERICA Justin DELONGWAQAR Facility:[facility] Start: 03-18-2024 End: 03-19-2024 Telephone encounter Erica Cannon MD Work Phone: [facility] [place] Comment on above: Patient Update; Orde rs Start: 03-10-2024 End: 03-10-2024 Refill Erica Cannon MD Work Phone: [facility] [place] Comment on above: Refill Request Start: 02-27-2024 End: 03-06-2024 Refill Erica Cannon MD Work Phone: [facility] Comment on above: Refill Request urine culture result s ; Patient Question Start: 02-23-2024 End: 02-23-2024 ambulatory ERICA Justin DELONGWAQAR Facility:[facility] Start: 02-20-2024 End: 02-22-2024 Refill Erica Cannon MD Work Phone: [facility] [place] Comment on above: Refill Request UTI Start: 01-30-2024 ambulatory Erica Cannon Facilit y:[facility] Start: 01-29-2024 End: 01-30-2024 Refill Erica Cannon MD Work Phone: [facility] [place] Comment on above: Refill Request Start: 01-19-2024 End: 01-19-2024 Refill Erica Cannon MD Work Phone: [facility] [place] Comment on above: Refill Request Start: 12-31-2023 End: 12-31-2023 Telephone encounter Silvestre Jain APRN.MANAGER QUALITY SYSTEMS Work Phone: [facility] [place] Start: 12-26-2023 End: 12-26-2023 Refill Erica Cannon MD Work Phone: [facility] [place] Comment on above: Refill Request Start: 11-28-2023 End: 11-28-2023 ambulatory [facility] Work Phone: [facility] Comment on above: Spirometry Refill Request Start: 11-28-2023 End: 11-28-2023 Patient encounter procedure [facility] Work Phone: [facility] Comment on above: Pulmonary hypertensi on (HCC) (Primary Dx); On supplemental oxygen therapy; Hypoxia; Obstructive sleep apnea; Left lower quadrant abdominal pain; Morbid obesity (HCC); Encounter for immunization Start: 11-21-2023 End: 11-25-2023 Telephone encounter Silvestre Jain APRN.CNP Work Phone: [facility] [place] Comment on above: order problems Start: 11-05-2023 End: 11-26-2023 Telephone encounter Silvestre Jain APRN.CNP Work Phone: [facility] [place] Comment on above: Patient Update Orders Start: 10-31-2023 End: 10-31-2023 Refpanfilo Cannon MD Work Phone: [facility] [place] Comment on above: Refill Request Start: 10-22-2023 End: 10-24-2023 Telephone encounter Erica Cannon MD Work Phone: [facility] [place] Comment on above: Patient Update Start: 10-21-2023 End: 10-21-2023 Patient encounter procedure Silvestre Jain APRN.MANAGER QUALITY SYSTEMS Work Phone: [facility] [place] Comment on above: Dental infection (Pr imary Dx); Pulmonary hypertension (HCC); Obstructive sleep apnea; Moderate persistent asthma without complication; On supplemental oxygen therapy; Morbid obesity (HCC) Start: 10-20-2023 End: 10-20-2023 Telephone encounter Mary Woods RNbit welder [place] Comment on above: Medication Request Start: 10-16-2023 End: 10-17-2023 Telephone encounter Erica Cannon MD Work Phone: [facility] [place] Comment on above: Orders (Rollator) Start: 10-08-2023 End: 10-08-2023 Patient encounter procedure Jame Castañeda MD Work Phone: OB/Gynecology Comment on above: Encounter for gyneco logical examination (general) (routine) without abnormal findings (Primary Dx); Encounter for screening for human papillomavirus (HPV); Pap smear for cervical cancer screening; Encounter for screening mammogram for breast cancer Start: 10-08-2023 End: 10-08-2023 Patient encounter status Jame Castañeda MD Work Phone: [facility] Start: 09-29-2023 Refill Erica salazar MD Work Phone: [facility] [place] Comment on above: Refill Request Start: 09-24-2023 Telephone encounter Erica zimmer MD Work Phone: [facility] [place] Comment on above: change in pharmacy Start: 09-22-2023 End: 09-22-2023 Patient encounter procedure Leticia Echavarria [facility] Work Phone: [facility] Comment on above: Type 2 diabetes (HCC ) (Primary Dx) Start: 09-22-2023 End: 09-22-2023 Telemedicine consultation with patient Leticia Echavarria [facility] Work Phone: [facility] Start: 09-05-2023 Telephone encounter Erica zimmer MD Work Phone: [facility] [place] Comment on above: Patient Question Start: 09-04-2023 Refill Erica salazar MD Work Phone: [facility] [place] Comment on above: Refill Request Start: 08-29-2023 Home visit Silvestre ERICMANAGER QUALITY SYSTEMS Work Phone: [facility] [place] Comment on above: Moderate persistent asthma without complication (Primary Dx) Start: 08-27-2023 Telephone encounter Erica zimmer MD Work Phone: [facility] [place] Comment on above: Insurance Authorizat ion Start: 08-27-2023 End: 08-27-2023 Patient encounter procedure Silvestre Jain APRN.MANAGER [employer]AL[employer] SYSTEMS Work Phone: [facility] [place] Comment on above: Diverticulitis (Prim josefina Dx); Left lower quadrant abdominal pain; Type 2 diabetes (HCC); Primary hypertension; Obstructive sleep apnea; Moderate persistent asthma without complication; On supplemental oxygen therapy Start: 08-20-2023 Telephone encounter Silvestre marin QUALITY REVIEW TRAINER.MANAGER QUAL[employer] SYSTEMS Work Phone: [facility] [place] Comment on above: Appointment Start: 08-16-2023 Refill Erica salazar MD Work Phone: [facility] [place] Comment on above: Refill Request Start: 08-12-2023 End: 08-12-2023 Patient encounter procedure Tom Testrupal Work Phone: Podiatry Comment on above: Onychomycosis (Prima ry Dx); Pain in toe of left foot; Pain in toe of right foot; Diabetic polyneuropathy associated with type 2 diabetes mellitus (HCC) Start: 08-06-2023 End: 12-31-2023 Telephone encounter Erica Cannon MD Work Phone: [facility] [place] Comment on above: Patient Update (went to [facility] ER 08/04/23) Start: 08-04-2023 End: 08-04-2023 Patient encounter procedure Fernanda Bryant QUALITY REVIEW TRAINER.MANAGER QUALITY SYSTEMS Work Phone: [facility] Comment on above: Urinary frequency (P rimary Dx); Flank pain Start: 07-30-2023 Refill Silvestre ERICMANAGER QUALITY SYSTEMS Work Phone: [facility] [place] Comment on above: Refill Request Start: 07-29-2023 Telephone encounter Eirca zimmer MD Work Phone: [facility] [place] Comment on above: UTI Start: 07-19-2023 Telephone encounter Erica zimmer MD Work Phone: [facility] [place] Comment on above: Patient Question Start: 07-11-2023 Telephone encounter Erica zimmer MD Work Phone: [facility] [place] Start: 07-10-2023 Telephone encounter Erica zimmer MD Work Phone: [facility] [place] Comment on above: Patient Update; Janeen ent Question Start: 07-09-2023 ambulatory Erica salazar MD Work Phone: [facility] [place] Start: 07-09-2023 Telephone encounter Silvestre marin APRN.MANAGER [employer]ALITY SYSTEMS Work Phone: [facility] [place] Comment on above: Patient Update Start: 07-03-2023 Admission to [facility] Erica Cannon MD Work Phone: Ambulatory Surgery Start: 07-03-2023 ambulatory Erica salazar MD Work Phone: Ambulatory Surgery Start: 06-30-2023 Telephone encounter Leticia mcdaniel [facility] Work Phone: [facility] Comment on above: Medication Question (Mounjaro dose increase) Insurance Authorizat ion Start: 06-30-2023 End: 06-30-2023 Patient encounter procedure Leticia Echavarria [facility] Work Phone: [facility] Comment on above: Type 2 diabetes (HCC ) (Primary Dx) Start: 06-30-2023 End: 06-30-2023 Telemedicine consultation with patient Leticia Echavarria [facility] Work Phone: [facility] Start: 06-26-2023 Refill Erica salazar MD Work Phone: [facility] [place] Comment on above: Refill Request Start: 06-25-2023 Telephone encounter Erica zimmer MD Work Phone: [facility] [place] Comment on above: Order for hospital b ed Patient Question Start: 06-11-2023 Telephone encounter Erica zimmer MD Work Phone: [facility] [place] Start: 06-09-2023 Telephone encounter Erica zimmer MD Work Phone: [facility] [place] Comment on above: patient information Start: 06-04-2023 End: 06-04-2023 ambulatory Leticia [facility] Work Phone: [facility] Comment on above: Type 2 diabetes (HCC ) (Primary Dx) Start: 06-04-2023 End: 06-04-2023 Telemedicine consultation with patient Leticia [facility] Work Phone: [facility] Start: 06-02-2023 Telephone encounter Erica zimmer MD Work Phone: [facility] [place] Comment on above: Insurance Authorizat ion Start: 05-26-2023 Telephone encounter Silvestre Cleav er QUALITY REVIEW TRAINER.MANAGER [employer]AL[employer] SYSTEMS Work Phone: [facility] [place] Comment on above: Results, Lab Medication Problem Start: 05-21-2023 Telephone encounter Silvestre Cleav er QUALITY REVIEW TRAINER.MANAGER QUALITY SYSTEMS Work Phone: [facility] [place] Comment on above: Home Health Orders Start: 05-20-2023 Telephone encounter Silvestre Cleav er QUALITY REVIEW TRAINER.MANAGER QUALITY SYSTEMS Work Phone: [facility] [place] Comment on above: Medication Request Start: 05-19-2023 Telephone encounter Silvestre Cleav er QUALITY REVIEW TRAINER.MANAGER QUALITY SYSTEMS Work Phone: [facility] [place] Comment on above: Orders Start: 05-16-2023 Refill Silvestre Susy A PRN.MANAGER [employer]ALITY SYSTEMS Work Phone: [facility] [place] Comment on above: Refill Request Start: 05-16-2023 Telephone encounter Erica zimmer MD Work Phone: [facility] [place] Comment on above: DME Request: Mattres s Over[employer] Start: 05-15-2023 Telephone encounter Leticia mcdaniel [facility] Work Phone: [facility] Comment on above: Weight loss medicati ons Start: 05-14-2023 End: 05-14-2023 [facility] Comment on above: Type 2 diabetes (HCC ) (Primary Dx) Start: 05-14-2023 End: 05-14-2023 Telemedicine consultation with patient Leticia Echavarria [facility] Work Phone: [facility] Start: 05-12-2023 Telephone encounter Erica zimmer MD Work Phone: [facility] [place] Comment on above: Insurance Authorizat ion Start: 05-08-2023 End: 05-08-2023 Patient encounter procedure Tom Mami Work Phone: Podiatry Comment on above: Onychomycosis (Prima ry Dx); Pain in toe of left foot; Pain in toe of right foot; Diabetic mononeuropathy associated with diabetes mellitus due to underlying condition (HCC) Start: 05-07-2023 Refill Erica salazar MD Work Phone: [facility] [place] Comment on above: Refill Request/blood sugar readings Start: 05-05-2023 Telephone encounter Silvestre marin QUALITY REVIEW TRAINER.MANAGER [employer]AL[employer] SYSTEMS Work Phone: [facility] [place] Comment on above: Dental Problem Start: 04-23-2023 Refill Silvestre Eddy PRN.MANAGER [employer]S Work Phone: [facility] [place] Comment on above: Refill Request Start: 04-16-2023 Telephone encounter Erica zimmer MD Work Phone: [facility] [place] Comment on above: Insurance Authorizat ion Start: 04-16-2023 End: 04-16-2023 [facility] Comment on above: Type 2 diabetes (HCC ) (Primary Dx) Start: 04-16-2023 End: 04-16-2023 Telemedicine consultation with patient Leticia Echavarria [facility] Work Phone: [facility] Start: 04-14-2023 End: 04-14-2023 ambulatory Silvestre Jain QUALITY REVIEW TRAINER.MANAGER [employer]AL[employer] SYSTEMS Work Phone: [facility] [place] Comment on above: Moderate persistent asthma without complication (Primary Dx); Morbid obesity (HCC); Reactive depression; Anxiety state Start: 04-14-2023 End: 04-14-2023 Telemedicine consultation with patient Silvestre Susy QUALITY REVIEW TRAINER.MANAGER [employer]AL[employer] SYSTEMS Work Phone: [facility] Start: 04-10-2023 Refill Silvestre Susy A PRN.MANAGER [employer]S Work Phone: [facility] [place] Comment on above: Refill Request; Refi ll Request Start: 04-10-2023 Telephone encounter Silvestre Cleav er QUALITY REVIEW TRAINER.MANAGER [employer]ALITY SYSTEMS Work Phone: [facility] [place] Comment on above: Patient Question Start: 04-01-2023 Refill Erica salazar MD Work Phone: [facility] [place] Comment on above: Refill Request Start: 01-29-2023 End: 01-29-2023 ambulatory [facility] Work Phone: [facility] Comment on above: Type 2 diabetes (HCC ) (Primary Dx); Medication management Refill Request Start: 01-29-2023 End: 01-29-2023 Telemedicine consultation with patient Leticia Echavarria [facility] Work Phone: [facility] Start: 01-24-2023 ambulatory Erica salazar MD Work Phone: [facility] [place] Comment on above: Diarrhea Start: 01-08-2023 Telephone encounter Silvestre Cleav er QUALITY REVIEW TRAINER.MANAGER [employer]AL[employer] SYSTEMS Work Phone: [facility] [place] Comment on above: Medication Problem Start: 01-01-2023 End: 01-01-2023 Patient encounter procedure Silvestre Susy QUALITY REVIEW TRAINER.MANAGER [employer]AL[employer] SYSTEMS Work Phone: [facility] [place] Comment on above: Left lower quadrant abdominal pain (Primary Dx); Pelvic pain; Type 2 diabetes (HCC); Primary hypertension Start: 12-30-2022 ambulatory Erica salazar MD Work Phone: [facility] [place] Comment on above: Abdominal Pain Start: 12-06-2022 Refill Silvestre Eddy PRN.MANAGER [employer]AL[employer] SYSTEMS Work Phone: [facility] [place] Comment on above: Refill Request Start: 12-04-2022 Telephone encounter Aurora Aparicio [facility] Work Phone: [facility] Comment on above: Transition Of Care ( Diabetes) Start: 12-03-2022 Telephone encounter Tom Paz shelli Work Phone: Podiatry Comment on above: Patient Update Start: 11-28-2022 End: 11-28-2022 ambulatory Aurora Aparicio [facility] Work Phone: [facility] Comment on above: Type 2 diabetes (HCC ) (Primary Dx) Start: 11-28-2022 End: 11-28-2022 Telemedicine consultation with patient Aurora Aparicio [facility] Work Phone: [facility] Start: 11-19-2022 Refill Erica salazar MD Work Phone: [facility] [place] Comment on above: Refill Request Start: 11-18-2022 Telephone encounter Erica zimmer MD Work Phone: [facility] [place] Comment on above: Patient Update; Janeen ent Question Start: 11-13-2022 Telephone encounter Erica zimmer MD Work Phone: [facility] [place] Comment on above: Medication Request Start: 11-12-2022 End: 11-12-2022 Patient encounter procedure John Caldwell MD Work Phone: Ophthalmology Comment on above: 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 (Primary Dx); Pseudophakia; Senile nuclear cataract, right Start: 11-05-2022 End: 11-05-2022 Patient encounter procedure Silvestre Jain QUALITY REVIEW TRAINER.MANAGER [employer]AL[employer] SYSTEMS Work Phone: [facility] [place] Comment on above: Allergic rhinitis, u nspecified seasonality, unspecified trigger (Primary Dx); Reactive depression; Primary hypertension; Mixed hyperlipidemia; Decreased mobility; Morbid obesity (HCC); Iron deficiency anemia, unspecified iron deficiency anemia type; Encounter for immunization; Encounter for therapeutic drug monitoring Start: 11-01-2022 Refill Lydiamaggie [place] KRAUSE Work Phone: [facility] [place] Comment on above: Refill Request Start: 10-25-2022 End: 10-25-2022 ambulatory Aurora Aparicio [facility] Work Phone: [facility] Comment on above: Type 2 diabetes (HCC ) (Primary Dx) Start: 10-25-2022 End: 10-25-2022 Telemedicine consultation with patient Aurora Aparicio [facility] Work Phone: [facility] Start: 10-23-2022 End: 10-23-2022 Patient encounter procedure Tom Bolaños Work Phone: Podiatry Comment on above: Pes planus of both f eet (Primary Dx); Diabetic mononeuropathy associated with diabetes mellitus due to underlying condition (HCC); Hammer toe, unspecified laterality; Onychomycosis; Pain in toe of left foot; Pain in toe of right foot Start: 10-04-2022 ambulatory Erica salazar MD Work Phone: [facility] [place] Comment on above: tooth pain Start: 09-24-2022 Telephone encounter Erica zimmer MD Work Phone: [facility] [place] Comment on above: Patient Question Start: 09-23-2022 Refill Erica salazar MD Work Phone: [facility] [place] Comment on above: Refill Request Start: 09-20-2022 Refill Erica salazar MD Work Phone: [facility] [place] Comment on above: Refill Request Start: 09-19-2022 Refill Erica salazar MD Work Phone: [facility] [place] Comment on above: Refill Request Start: 09-17-2022 Telephone encounter Erica zimmer MD Work Phone: Family [facility] [place] Comment on above: Medication Question Start: 09-05-2022 Telephone encounter John Caldwell MD Work Phone: Ophthalmology Comment on above: Follow Up Start: 09-04-2022 Refill Silvestre Susy ERICMANAGER [employer]S Work Phone: [facility] [place] Comment on above: Refill Request Start: 09-03-2022 End: 09-03-2022 Patient encounter procedure John Caldwell MD Work Phone: Ophthalmology Comment on above: Pseudophakia (Primar y Dx) Start: 09-02-2022 Telephone encounter Erica zimmer MD Work Phone: [facility] [place] Comment on above: Results Start: 08-29-2022 Telephone encounter Erica zimmer MD Work Phone: [facility] [place] Comment on above: Patient Update Start: 08-24-2022 Home visit Erica salazar MD Work Phone: [facility] [place] Comment on above: Primary hypertension (Primary Dx) Start: 08-23-2022 Telephone encounter Erica zimmer MD Work Phone: [facility] [place] Comment on above: Opened In Error Start: 08-22-2022 Telephone encounter Lydia Connor ks QUALITY REVIEW TRAINER.TRANSCRIPTION TYPIST Work Phone: Family [facility] [place] Comment on above: Patient Update (From OV yesterday) Start: 08-21-2022 End: 08-21-2022 Office outpatient visit 25 minutes Erica Cannon MD Work Phone: [facility] [place] Comment on above: Acute renal insuffic iency (Primary Dx); Hypokalemia; Muscular deconditioning; Chronic nasal congestion; Primary hypertension; Ulcer of left lower extremity, limited to breakdown of skin (HCC); Allergic rhinitis, unspecified seasonality, unspecified trigger; Morbid obesity (HCC) Start: 08-19-2022 Non-patient / Non-visit Dr. Mina Cannon Work Phone: [facility] Start: 08-18-2022 Non-patient / Non-visit Dr. Mina Cannon Work Phone: [facility] Start: 08-18-2022 Non-patient / Non-visit Dr. Mina Cannon Work Phone: [facility] Start: 08-17-2022 Non-patient / Non-visit Dr. Mina Cannon Work Phone: [facility] Start: 08-17-2022 Non-patient / Non-visit Dr. Mina Cannon Work Phone: [facility] Start: 08-16-2022 Non-patient / Non-visit Dr. Mina Cannon Work Phone: [facility] Start: 08-15-2022 Non-patient / Non-visit Dr. Mina Cannon Work Phone: [facility] Start: 08-14-2022 End: 08-19-2022 [facility] Start: 08-14-[address] ERICA CANNON MD Fac ility:B Start: 08-14-2022 Telephone encounter Erica zimmer MD Work Phone: [facility] [place] Comment on above: Patient Update; Resu lts; Recheck Start: 08-12-2022 End: 08-12-2022 Patient encounter procedure Katya Older QUALITY REVIEW TRAINER.MANAGER [employer]ALITY SYSTEMS Work Phone: [facility] [place] Comment on above: Diarrhea, unspecifie d type (Primary Dx) Start: 08-12-2022 ambulatory Erica salazar MD Work Phone: [facility] [place] Comment on above: Diarrhea Start: 08-07-2022 End: 08-07-2022 Admission to [facility] [place] 1 Work Phone: [facility] Start: 08-07-2022 End: 08-07-2022 ambulatory Pac [place] 1 Work Phone: Pre Anesthesia Comment on above: Pre-operative examin ation (Primary Dx); Bilateral leg edema; Pulmonary hypertension (HCC); Primary hypertension; Mixed hyperlipidemia; Obstructive sleep apnea; Moderate persistent asthma without complication; Iron deficiency anemia, unspecified iron deficiency anemia type; Type 2 diabetes (HCC); Ulcer of left lower extremity, limited to breakdown of skin (HCC); Reactive depression; Chronic hepatitis, unspecified (HCC); Gastroesophageal reflux disease, unspecified whether esophagitis present; Stage 3 chronic kidney disease, unspecified whether stage 3a or 3b CKD (HCC) Start: 08-07-2022 End: 08-07-2022 Preprocedural examination done Pac [place] 1 Work Phone: Pre Anesthesia Start: 07-31-2022 Refill Erica salazar MD Work Phone: [facility] [place] Comment on above: Refill Request Start: 07-28-2022 Refill Silvestre Eddy PRN.CNP Work Phone: [facility] [place] Comment on above: Refill Request Start: 07-24-2022 Telephone encounter Erica zimmer MD Work Phone: [facility] [place] Comment on above: fax from [employer] Start: 07-05-2022 End: 07-05[facility]20[facility] Work Phone: [facility] Comment on above: Type 2 diabetes (HCC ) (Primary Dx) Start: 07-05-2022 End: 07-05-2022 Telemedicine consultation with patient Aurora [facility] Work Phone: [facility] Start: 06-27-2022 Telephone encounter Erica zimmer MD Work Phone: [facility] [place] Comment on above: Insurance Authorizat ion Start: 06-26-2022 Telephone encounter Aurora [facility]par[facility] Work Phone: [facility] Comment on above: Patient Question; Pa tient Update Start: 06-21-2022 Telephone encounter Erica zimmer MD Work Phone: [facility] [place] Comment on above: Patient Question Start: 06-07-2022 Telephone encounter Erica zimmer MD Work Phone: [facility] [place] Comment on above: Orders Start: 06-04-2022 End: 06-04-2022 Patient encounter procedure John Caldwell MD Work Phone: Ophthalmology Comment on above: Cortical age-related cataract of left eye (Primary Dx); Nuclear sclerosis, bilateral; Other vitreous opacities, left eye; Total, mature age-related cataract; Type 2 diabetes mellitus without ophthalmic manifestations (HCC) Nuclear senile catar act of both eyes (Primary Dx) Start: 05-31-2022 End: 05-31-2022 ambulatory Aurora [facility]par[facility] Work Phone: [facility] Comment on above: Type 2 diabetes (HCC ) (Primary Dx) Start: 05-31-2022 End: 05-31-2022 Telemedicine consultation with patient Aurora [facility] Work Phone: [facility] Start: 05-30-2022 Telephone encounter Lydia miller QUALITY REVIEW TRAINER.TRANSCRIPTION TYPIST Work Phone: [facility] [place] Comment on above: Medication Problem Start: 05-29-2022 Refill Silvestre Jain A PRN.MANAGER [employer]S Work Phone: [facility] [place] Comment on above: Refill Request Start: 05-29-2022 Telephone encounter Erica zimmer MD Work Phone: [facility] [place] Comment on above: Patient Question Start: 05-21-2022 End: 05-21-2022 ambulatory Silvestre Jain QUALITY REVIEW TRAINER.MANAGER [employer] SYSTEMS Work Phone: [facility] [place] Comment on above: Primary insomnia (Pr imary Dx); Decreased mobility; Gait instability; Primary osteoarthritis of both knees; Primary hypertension; Type 2 diabetes (HCC); Leg cramp; Muscle spasm; Anxiety state; BMI 60.0-69.9, adult (HCC) Start: 05-21-2022 End: 05-21-2022 Telemedicine consultation with patient Silvestre Jain QUALITY REVIEW TRAINER.MANAGER [employer] SYSTEMS Work Phone: [facility] Start: 05-17-2022 Telephone encounter Erica zimmer MD Work Phone: [facility] [place] Comment on above: Patient Update Start: 05-15-2022 Telephone encounter Erica zimmer MD Work Phone: [facility] [place] Comment on above: Lab order question Start: 05-14-2022 Telephone encounter Erica zimmer MD Work Phone: [facility] [place] Comment on above: problem with PA Start: 05-10-2022 End: 05-10-2022 Patient encounter procedure Aurora [facility] Work Phone: [facility] Comment on above: Type 2 diabetes (HCC ) (Primary Dx); Medication management Start: 05-09-2022 Telephone encounter Erica zimmer MD Work Phone: [facility] [place] Comment on above: Insurance Authorizat ion (Ozempic ) Start: 05-07-2022 Telephone encounter Erica zimmer MD Work Phone: [facility] [place] Comment on above: Patient Question; Me dication Problem Start: 05-06-2022 Telephone encounter Erica zimmer MD Work Phone: [facility] [place] Comment on above: Urine symptoms Start: 05-04-2022 Refill Erica salazar MD Work Phone: [facility] [place] Comment on above: Refill Request Start: 05-03-2022 Telephone encounter Erica zimmer MD Work Phone: [facility] [place] Comment on above: Physical [facility] [place] [facility] Start: 04-26-2022 Telephone encounter Erica zimmer MD Work Phone: [facility] [place] Comment on above: Sore Throat Start: 04-25-2022 Telephone encounter Erica zimmer MD Work Phone: [facility] [place] Comment on above: referral for HH/medi cation problem Start: 04-23-2022 End: 04-23-2022 ambulatory Silvestre Jain APRN.MANAGER [employer] Work Phone: [facility] [place] Comment on above: NO SHOW (Primary Dx) Start: 04-23-2022 End: 04-23-2022 Telemedicine consultation with patient Silvestre Jain APRN.MANAGER [employer]S Work Phone: [facility] Start: 04-16-2022 Telephone encounter Erica zimmer MD Work Phone: [facility] [place] Comment on above: [facility] order request Refill Request; Refi ll Request Start: 04-12-2022 Telephone encounter Erica zimmer MD Work Phone: [facility] [place] Comment on above: Blood Sugar Reading Start: 04-08-2022 Refill Erica salazar MD Work Phone: [facility] [place] Comment on above: Refill Request New Rx Request Start: 04-06-2022 Telephone encounter Erica zimmer MD Work Phone: [facility] [place] Comment on above: handicap sign Start: 04-04-2022 End: 04-04-2022 ambulatory Lydia North APRN.TRANSCRIPTION TYPIST Work Phone: [facility] [place] Comment on above: Bacterial conjunctiv itis of left eye (Primary Dx) Start: 04-04-2022 End: 04-04-2022 Telemedicine consultation with patient Lydia North APRN.TRANSCRIPTION TYPIST Work Phone: [facility] Start: 03-29-2022 Refill Erica salazar MD Work Phone: [facility] [place] Comment on above: Refill Request Start: 03-26-2022 Telephone encounter Erica zimmer MD Work Phone: [facility] [place] Comment on above: Medication Request Start: 03-25-2022 Refill Erica salazar MD Work Phone: [facility] [place] Comment on above: Refill Request; Medi cation Problem Office visit notes t o DME co Pharmacy Call/ Reque st Start: 03-22-2022 Refill Erica salazar MD Work Phone: [facility] [place] Comment on above: Refill Request Start: 03-21-2022 Orders Only Silvestre ERICMANAGER QUALITY SYSTEMS Work Phone: [facility] [place] Start: 03-15-2022 Refill Erica salazar MD Work Phone: [facility] [place] Comment on above: Med Change Request Start: 03-13-2022 Telephone encounter Erica zimmer MD Work Phone: [facility] [place] Comment on above: Medication Problem Start: 03-11-2022 Refill Erica salazar MD Work Phone: [facility] [place] Comment on above: Refill Request Start: 03-02-2022 Refill Erica salazar MD Work Phone: [facility] [place] Comment on above: Refill Request Start: 03-01-2022 Telephone encounter Erica zimmer MD Work Phone: [facility] [place] Comment on above: Patient Question Start: 02-28-2022 Telephone encounter Erica zimmer MD Work Phone: [facility] [place] Comment on above: [facility] Start: 02-27-2022 Telephone encounter Erica zimmer MD Work Phone: [facility] [place] Comment on above: [facility]/refill request Home Health OT Plan of Care Insurance Authorizat ion Start: 02-26-2022 Telephone encounter Erica zimmer MD Work Phone: [facility] [place] Comment on above: Orders Medication problem/p rescription request Start: 02-23-2022 Telephone encounter Erica zimmer MD Work Phone: [facility] [place] Comment on above: Refill Request Start: 02-19-2022 Telephone encounter Erica zimmer MD Work Phone: [facility] [place] Comment on above: Patient Update; HH O rder Request Patient Update; Orde rs Start: 02-16-2022 Telephone encounter Erica zimmer MD Work Phone: [facility] [place] Comment on above: Results Start: 02-15-2022 End: 02-15-2022 Office outpatient visit 40 minutes Erica Cannon MD Work Phone: [facility] [place] Comment on above: Ulcer of left lower extremity, limited to breakdown of skin (HCC) (Primary Dx); Bilateral leg edema; Type 2 diabetes (HCC); H/O hypercapnia; HONEY on CPAP; Obesity due to excess calories with serious comorbidity, unspecified classification; Encounter for long-term current use of medication; Functional incontinence Start: 02-15-2022 Telephone encounter Erica zimmer MD Work Phone: Neurology Comment on above: Orders Start: 02-14-2022 Telephone encounter Erica zimmer MD Work Phone: [facility] [place] Comment on above: Appointment Start: 02-09-2022 Telephone encounter Erica zimmer MD Work Phone: [facility] [place] Comment on above: home health calling for verbal orders Start: 02-07-2022 Telephone encounter Erica zimmer MD Work Phone: [facility] [place] Comment on above: Home Health orders Start: 02-06-2022 Refill Erica salazar MD Work Phone: [facility] [place] Comment on above: Refill Request Patient Question Start: 11-29-2021 End: 11-29-2021 Emergency department patient visit Dr. Erica Cannon Work Phone: [facility]-Emergency Department Start: 11-29-2021 Non-patient / Non-visit Dr. Mina Cannon Work Phone: [facility] Start: 11-20-2021 Non-patient / Non-visit Dr. Mina Cannon Work Phone: [facility] Inpatient Phys[facility] Start: 11-20-2021 Non-patient / Non-visit Dr. Mina Cannon Work Phone: [facility]-PMW Start: 11-19-2021 Non-patient / Non-visit Dr. Mina Cannon Work Phone: [facility] Start: 11-18-2021 End: 11-20-2021 Evaluation and management of inpatient Dr. Erica Cannon Work Phone: [facility]-Intensive Care Unit Start: 11-13-2021 End: 11-13-2021 Emergency department patient visit Dr. Erica Cannon Work Phone: [facility]-Emergency Department Start: 10-17-2021 ambulatory Socorro Plasencia [facility] [place] Comment on above: Population Health Na vigation Outreach (HCC) Start: 08-23-2021 Telephone encounter Erica zimmer MD Work Phone: [facility] [place] Comment on above: Clinical Update Start: 08-22-2021 ambulatory Erica salazar MD Work Phone: [facility] [place] Start: 08-15-2021 Non-patient / Non-visit Dr. Mina Cannon Work Phone: [facility] Start: 08-14-2021 Non-patient / Non-visit Dr. Mina Cannon Work Phone: [facility] Start: 08-13-2021 Telephone encounter Erica zimmer MD Work Phone: Hematology/Oncology Comment on above: Missed Appointment Start: 08-13-2021 Non-patient / Non-visit Dr. Mina Cannon Work Phone: [facility] Start: 08-12-2021 Non-patient / Non-visit Dr. Mina Cannon Work Phone: [facility] Start: 08-11-2021 Non-patient / Non-visit Dr. Mina Cannon Work Phone: [facility] Start: 08-10-2021 Non-patient / Non-visit Dr. Mina Cannon Work Phone: [facility] Start: 08-09-2021 Non-patient / Non-visit Dr. Mina Cannon Work Phone: [facility] Start: 08-08-2021 Non-patient / Non-visit Dr. Mina Cannon Work Phone: [facility] Start: 08-07-2021 Non-patient / Non-visit Dr. Mina Cannon Work Phone: [facility] Start: 08-06-2021 Non-patient / Non-visit Dr. Mina Cannon Work Phone: [facility] Start: 08-06-2021 [facility] Comment on above: Opened In Error Start: 08-05-2021 Non-patient / Non-visit Dr. Mina Cannon Work Phone: [facility] Start: 08-05-2021 Non-patient / Non-visit Dr. Mina Cannon Work Phone: [facility] Start: 08-04-2021 Non-patient / Non-visit Dr. Mina Cannon Work Phone: [facility] Start: 08-04-2021 Non-patient / Non-visit Dr. Mina Cannon Work Phone: [facility] Start: 08-03-2021 Non-patient / Non-visit Dr. Mina Cannon Work Phone: [facility] Start: 08-03-2021 Non-patient / Non-visit Dr. Mina Cannon Work Phone: [facility] Start: 08-02-2021 Non-patient / Non-visit Dr. Mina Cannon Work Phone: [facility] Start: 08-02-2021 Non-patient / Non-visit Dr. Mina Cannon Work Phone: [facility] Start: 08-02-2021 Non-patient / Non-visit Dr. Mina Cannon Work Phone: [facility] Start: 08-01-2021 End: 08-01-2021 ambulatory Treatment Rm 13 Al[facility] Work Phone: Hematology/Oncology Comment on above: Iron deficiency anem ia, unspecified iron deficiency anemia type (Primary Dx) Start: 08-01-2021 Non-patient / Non-visit Dr. Mina Cannon Work Phone: [facility] Start: 07-31-2021 End: 08-16-2021 Evaluation and management of inpatient [facility]-Progressive Care Unit Start: 07-29-2021 End: 07-29-2021 Emergency department patient visit PRISCILA QUEVEDO MD [facility] Start: 07-27-2021 Telephone encounter Erica zimmer MD Work Phone: [facility] [place] Comment on above: Medication Request Start: 07-26-2021 Orders Only Shine Mendoza MD Work Phone: Orthopaedics Comment on above: Pain in both knees, unspecified chronicity (Primary Dx) Start: 07-25-2021 Telephone encounter Erica zimmer MD Work Phone: [facility] [place] Comment on above: Office Notes Start: 07-24-2021 Telephone encounter Erica zimmer MD Work Phone: [facility] [place] Comment on above: Orders Start: 07-17-2021 End: 07-17-2021 Patient encounter procedure Matt Loving [facility] Comment on above: Peripheral vascular disease, unspecified (HCC) (Primary Dx) Start: 07-11-2021 End: 07-11-2021 Patient encounter procedure Mateusz Alexsandra BIOFUELS OPERATIONS MANAGER Work Phone: Psychology Comment on above: No-show for appointm ent (Primary Dx) Start: 07-10-2021 Telephone encounter Gregoria nash LEATHER [employer]ID[employer]T MAKER Work Phone: Adult Psychology Comment on above: behavioral health so cial work Consult ([facility] Return ing Pt's Vm) Start: 07-09-2021 Telephone encounter Erica zimmer MD Work Phone: [facility] [place] Comment on above: Results Start: 07-05-2021 End: 07-05-2021 Office outpatient visit 40 minutes Erica Cannon MD Work Phone: [facility] [place] Comment on above: Morbid obesity (HCC) (Primary Dx); Current moderate episode of major depressive disorder, unspecified whether recurrent (HCC); Bilateral leg edema; Bilateral carpal tunnel syndrome; Iron deficiency anemia, unspecified iron deficiency anemia type; Allergic rhinitis, unspecified seasonality, unspecified trigger; Primary hypertension; Type 2 diabetes (HCC); Upper abdominal pain; Encounter for long-term current use of medication; Chronic pain of right knee; Spinal stenosis, lumbar region, without neurogenic claudication; Primary osteoarthritis of both knees Start: 07-04-2021 Refill Erica salazar MD Work Phone: [facility] [place] Comment on above: Refill Request Start: 07-03-2021 Telephone encounter Gregoria Damon prathermarie LEATHER [employer] MAKER Work Phone: Adult Psychology Comment on above: beahvioral health so cial work Refill Request Start: 07-02-2021 Telephone encounter Erica zimmer MD Work Phone: [facility] [place] Comment on above: Medication Problem; Patient Update Start: 06-15-2021 Refill Erica salazar MD Work Phone: [facility] [place] Comment on above: Refill Request Start: 05-30-2021 Refill Erica salazar MD Work Phone: [facility] [place] Comment on above: Refill Request Joint Pain (knee) Start: 05-14-2021 End: 03-21-2022 Office outpatient visit 40 minutes Erica Cannon MD Work Phone: [facility] [place] Comment on above: Insomnia, unspecifie d type (Primary Dx); Current moderate episode of major depressive disorder, unspecified whether recurrent (HCC); Primary osteoarthritis of both knees; Anxiety state; Morbid obesity (HCC); Type 2 diabetes (HCC); Iron deficiency anemia, unspecified iron deficiency anemia type Start: 10-24-2020 Refill Erica salazar MD Work Phone: [facility] [place] Comment on above: Refill Request Start: 05-19-2017 Ambulatory MICHAEL [facility] Facility :[facility] Procedures Date Procedure Procedure Detail Performing Clinician Start: 11-11-2024 Echocardiography SILVESTRE JAIN Start: 10-29-2024 Ecg routine ecg w/least 12 lds i&r only [facility] Provider Start: 10-29-2024 Urnls dip stick/tablet rgnt auto w/o microscopy Katya Biggs QUALITY REVIEW TRAINER.MANAGER [employer] SYSTEMS Work Phone: Start: 07-18-2024 Urnls dip stick/tablet rgnt auto w/o microscopy [facility] Provider Start: 06-23-2024 Urnls dip stick/tablet rgnt auto w/o microscopy Gregoria Patton QUALITY REVIEW TRAINER.MANAGER [employer] SYSTEMS Work Phone: Start: 11-28-2023 Noninvasive ear/pulse oximetry multiple ronel Jain QUALITY REVIEW TRAINER.MANAGER [employer] SYSTEMS Work Phone: Start: 08-04-2023 Urnls dip stick/tablet rgnt auto w/o microscopy Zac Silvestre QUALITY REVIEW TRAINER.MANAGER QUALITY SYSTEMS Work Phone: Start: 11-05-2022 INFLUENZA VACCINE, AGE 6 MO - 64 YR, QUADRIVALENT (AFLURIA, FLULAVAL, FLUZONE) Silvestre Jain QUALITY REVIEW TRAINER.MANAGER QUALITY SYSTEMS Work Phone: Start: 08-15-[address] Erica Cannon Work Phone: Start: 08-14-2022 CT of abdomen and pelvis without contrast Start: 06-04-2022 IOL BIOMETRY W/ IOL CALC OU (BOTH EYES) John Caldwell MD Work Phone: Start: 06-04-2022 Computerized corneal topography uni/bi John Caldwell MD Work Phone: Start: 02-27-2022 Hemoglobin A1c/Hemoglobin.total in Blood [facility] Provider Start: 11-19-[address] Erica Cannon Work Phone: Start: 11-18-2021 Plain chest X-ray Dr. Erica Cannon Work Phone: Start: 08-02-[address] Erica bone Work Phone: Start: 08-01-2021 Plain chest X-ray Dr. Erica Cannon Work Phone: Start: 01-30-2016 Colonoscopy Erica Cannon MD Work Phone: Start: 05-23-2011 Mammography Erica Cannon MD Work Phone: Bacteria identified in Blood by Culture Dr. Erica Cannon Work Phone: section PRISCILA RITTER MD Cholecystectomy PRISCILA HALEY MD Clostridium difficile detection Dr. Erica Cannon Work Phone: Entire ankle region (body structure) PRISCILA QUEVEDO MD Lactoferrin measurement Measurement of occul t blood in stool specimen using immunoassay Dr. Erica Cannon Work Phone: Nucleic acid assay Dr. Erica Cannon Work Phone: Urine culture Dr. Erica funes Work Phone: Viral antigen assay Dr. Erica Cannon Work Phone: Plan of Treatment Date Care Activity Detail Author Start: 10-07-2028 Screening for malignant neoplasm of cervix Cervical Cancer Screening [facility] Start: 10-29-2025 Annual PCP Team Chronic Disease Visit Annual PCP Team Chronic Disease Visit [facility] Start: 09-21-2025 Annual PCP Team Chronic Disease Visit Annual PCP Team Chronic Disease Visit [facility] Start: 09-21-2025 Complete blood count Hemoglobin/Hematocrit [facility] Start: 09-21-2025 Creatinine measurement Serum Creatinine [facility] Start: 09-18-2025 Screening for malignant neoplasm of colon Fecal Occult Blood [facility] Start: 09-07-2025 Annual PCP Team Chronic Disease Visit Annual PCP Team Chronic Disease Visit [facility] Start: 08-24-2025 Complete blood count Hemoglobin/Hematocrit [facility] Start: 08-16-2025 Annual PCP Team Chronic Disease Visit Annual PCP Team Chronic Disease Visit [facility] Start: 08-16-2025 Complete blood count Hemoglobin/Hematocrit [facility] Start: 08-16-2025 Creatinine measurement Serum Creatinine [facility] Start: 07-18-2025 BP Controlled (<130/80) BP Controlled (<130/80) [facility] Start: 06-23-2025 BP Controlled (<130/80) BP Controlled (<130/80) [facility] Start: 05-07-2025 Annual PCP Team Chronic Disease Visit Annual PCP Team Chronic Disease Visit [facility] Start: 04-23-2025 Complete blood count Hemoglobin/Hematocrit [facility] Start: 04-23-2025 Creatinine measurement Serum Creatinine [facility] Start: 04-23-2025 Hepatitis B surface antibody level LDL Cholesterol [facility] Start: 04-17-2025 Annual PCP Team Chronic Disease Visit Annual PCP Team Chronic Disease Visit [facility] Start: 02-15-2025 Hemoglobin A1c measurement HbA1C [facility] Start: 01-03-2025 End: 01-03-2025 Patient encounter procedure 01/03/2025 10:30 AM EST Office Visit Podiatry [address] [place] [address] Tom Bolaños [address] [place] [address] 3 month follow up nail care Podiatry Comment on above: 3 month follow up nail care Start: 12-03-2024 End: 12-03-2024 ambulatory 12/03/2024 11:20 AM EDT Visit (SP) Office Hematology/Oncology [address] [place] [address] Rj Dempsey DO [address] [place] [address] 3-4 WK OV* Hematology/Oncolog y Comment on above: 3-4 WK OV* Start: 11-27-2024 Annual PCP Team Chronic Disease Visit Annual PCP Team Chronic Disease Visit [facility] Start: 11-27-2024 BP Controlled (<130/80) BP Controlled (<130/80) [facility] Start: 11-17-2024 End: 11-17-2024 ambulatory 11/17/2024 10:30 AM EDT Infusion Center Hematology/Oncology [address] [place] [address] 2ND IRON SUCROSE/5-5* Hematology/Oncolog y Comment on above: 2ND IRON SUCROSE/5-5* Start: 11-16-2024 End: 11-16-2024 Patient encounter procedure 11/16/2024 2:40 PM EDT Office Visit Internal Medicine [place] [address] [facility] [place] [address] Erica Cannon MD [address] [facility] [place] [address] 3 month follow up Internal Medicine [facility] Comment on above: 3 month follow up Start: 11-15-2024 End: 11-15-2024 ambulatory 11/15/2024 11:30 AM EDT Infusion Center Hematology/Oncology [address] [place] [address] 2ND IRON SUCROSE/4-5* Hematology/Oncolog y Comment on above: 2ND IRON SUCROSE/4-5* Start: 11-12-2024 End: 11-12-2024 ambulatory 11/12/2024 3:00 PM EDT Infusion Center Hematology/Oncology [address] [place], [place] [id number] 2ND IRON SUCROSE/3-5* Hematology/Oncolog y Comment on above: 2ND IRON SUCROSE/3-5* Start: 11-11-2024 End: 11-11-2024 Patient encounter procedure 11/11/2024 11:20 AM EDT Office Visit Cardiology [address] [place] [address] Nonspecific abnormal electrocardiogram (ECG) (EKG) [R94.31] Cardiology Comment on above: Nonspecific abnormal electrocardiogram ( ECG) (EKG) [R94.31] Start: 11-10-2024 End: 11-10-2024 ambulatory 11/10/2024 8:30 AM EDT Infusion Center Hematology/Oncology [address] [place] [address] 2ND IRON SUCROSE/2-5* Hematology/Oncolog y Comment on above: 2ND IRON SUCROSE/2-5* Start: 11-08-2024 End: 11-08-2024 ambulatory 11/08/2024 11:30 AM EDT Infusion Center Hematology/Oncology [address] [place] [address] 2ND IRON SUCROSE/1-5* Hematology/Oncolog y Comment on above: 2ND IRON SUCROSE/1-5* Start: 10-29-2024 End: 01-28-2025 COPPER BLOOD [facility] Comment on above: Expected: 10/29/2024, Expires: Start: 10-29-2024 End: 01-28-2025 Erythropoietin (EPO) [Units/volume] in Serum or Plasma [facility] Comment on above: Expected: 10/29/2024, Expires: Start: 10-29-2024 End: 01-28-2025 Ferritin [Mass/volume] in Serum or Plasma [facility] Comment on above: Expected: 10/29/2024, Expires: Start: 10-29-2024 End: 01-28-2025 HIGH SENSITIVITY TROPONIN T [facility] Comment on above: Expected: 10/29/2024, Expires: Start: 10-29-2024 End: 01-28-2025 Iron and Iron binding capacity panel - Serum or Plasma [facility] Comment on above: Expected: 10/29/2024, Expires: Start: 10-29-2024 End: 01-28-2025 [id number] MUTATION ANALYSIS [facility] Comment on above: Expected: 10/29/2024, Expires: Start: 10-29-2024 End: 01-28-2025 Natriuretic peptide.B prohormone N-Terminal [Mass/volume] in Serum or Plasma [facility] Comment on above: Expected: 10/29/2024, Expires: Start: 10-29-2024 End: 10-29-2024 ambulatory 10/29/2024 10:00 AM EDT Visit (SP) Office Hematology/Oncology [address] [place] [address] Rj Dempsey, DO [address] [place] [address] 2WK-labs 8*3wk per patient on vac then schedule is full Hematology/Oncolog y Comment on above: 2WK-labs 8*3wk per patient on vac then schedule is full Start: 10-25-2024 Influenza vaccination Influenza Vaccine (#1) [facility] Start: 10-22-2024 End: 10-22-2024 ambulatory 10/22/2024 8:20 AM EDT Visit (SP) Office Hematology/Oncology [address] [place] [address] Rj Dempsey, DO [address] [place] [address] 2WK-labs 09/24*3wk per patient on vac then schedule is full Hematology/Oncolog y Comment on above: 2WK-labs 09/24*3wk per patient on vac then schedule is full Start: 10-21-2024 Hemoglobin A1c measurement HbA1C [facility] Start: 10-20-2024 Annual PCP Team Chronic Disease Visit Annual PCP Team Chronic Disease Visit [facility] Start: 10-07-2024 BP Controlled (<130/80) BP Controlled (<130/80) [facility] Start: 10-01-2024 End: 10-01-2024 Patient encounter procedure 10/01/2024 10:00 AM EDT Appointment Radiology [address] [place] [address] Incomplete emptying of bladder [R33.9] Radiology Comment on above: Incomplete emptying of bladder [R33.9] Start: 09-30-2024 End: 09-30-2024 Patient encounter procedure 09/30/2024 10:15 AM EDT Office Visit Podiatry [address] [place] [address] Tom Bolaños [address] [place] [address] 3 month follow up nail care Podiatry Comment on above: 3 month follow up nail care Start: 09-28-2024 End: 09-28-2024 Patient encounter procedure 09/28/2024 11:00 AM EDT Office Visit Podiatry [address] [place] [address] Tom Bolaños [address] [place] [address] 3 month follow up nail care Podiatry Comment on above: 3 month follow up nail care Start: 09-24-2024 End: 12-24-2024 GANGLIOSIDE ANTIBODIES [facility] Comment on above: Expected: 09/24/2024, Expires: Start: 09-24-2024 End: 12-24-2024 MAG IGM & SGPG IGM [facility] Comment on above: Expected: 09/24/2024, Expires: Start: 09-24-2024 End: 12-24-2024 SERUM VISCOSITY [facility] Comment on above: Expected: 09/24/2024, Expires: Start: 09-24-2024 End: 12-24-2024 Transferrin receptor.soluble [Mass/volume] in Serum or Plasma [facility] Work Phone: Comment on above: Expected: 09/24/2024, Expires: Start: 09-24-2024 End: 09-24-2024 ambulatory 09/24/2024 11:30 AM EDT Visit (SP) Office Hematology/Oncology [address] [place] [address] Gavi Ureña [address] [place] [address] 2WK OV*THIS DATE PER PATIENT Hematology/Oncolog y Comment on above: 2WK OV*THIS DATE PER PATIENT Start: 09-21-2024 End: 12-21-2024 Amylase [Enzymatic activity/volume] in Serum or Plasma [facility] Comment on above: Expected: 09/21/2024, Expires: Start: 09-21-2024 End: 12-21-2024 Comprehensive metabolic 2000 panel - Serum or Plasma [facility] Work Phone: Comment on above: Expected: 09/21/2024, Expires: Start: 09-21-2024 End: 12-21-2024 Lipase [Enzymatic activity/volume] in Serum or Plasma [facility] Comment on above: Expected: 09/21/2024, Expires: Start: 09-21-2024 End: 09-21-2024 Patient encounter procedure 09/21/2024 10:40 AM EDT Office Visit Internal Medicine [place] [address] [place] [address] Silvestre Jain APRN.[employer] [address] [place] [address] Abdominal pain. See triage. Internal Medicine [place] Comment on above: Abdominal pain. See triage. Start: 09-19-2024 Screening for malignant neoplasm of colon Colorectal Cancer Screening [facility] Start: 09-13-2024 End: 09-13-2024 Patient encounter procedure 09/13/2024 8:30 AM EDT Appointment Radiology [address] [place] [id number] Incomplete emptying of bladder [R33.9] Radiology Comment on above: Incomplete emptying of bladder [R33.9] Start: 09-06-2024 End: 09-06-2024 Patient encounter procedure 09/06/2024 10:45 AM EDT Appointment Radiology [address] [place] [address] Incomplete emptying of bladder [R33.9] Radiology Comment on above: Incomplete emptying of bladder [R33.9] Start: 08-26-2024 Annual PCP Team Chronic Disease Visit Annual PCP Team Chronic Disease Visit [facility] Start: 08-24-2024 End: 11-23-2024 COPPER BLOOD [facility] Work Phone: Comment on above: Expected: 08/24/2024 (Approximate), Expi res: 11/23/2024 Start: 08-24-2024 End: 11-23-2024 Methylmalonate [Moles/volume] in Serum or Plasma [facility] Comment on above: Expected: 08/24/2024 (Approximate), Expi res: 11/23/2024 Start: 08-24-2024 End: 11-23-2024 MONOCLONAL PROTEIN, SERUM (BLOOD) [facility] Comment on above: Expected: 08/24/2024, Expires: Start: 08-24-2024 End: 11-23-2024 PROTEIN ELECTROPHORESIS SERUM W/INTERP [facility] Comment on above: Expected: 08/24/2024 (Approximate), Expi res: 11/23/2024 Start: 08-24-2024 End: 11-23-2024 Zinc [Mass/volume] in Serum or Plasma [facility] Comment on above: Expected: 08/24/2024 (Approximate), Expi res: 11/23/2024 Start: 08-24-2024 End: 08-24-2024 ambulatory 08/24/2024 10:30 AM EDT Visit (SP) Office Hematology/Oncology [address] [place] [id number] Gavi Ureña [address] [place] [id number] JEWEL HOLE DRILLER/IRON DEF ANEMIA/REF PROV SILVESTRE SUSY* Hematology/Oncolog y Comment on above: JEWEL HOLE DRILLER/IRON DEF ANEMIA/REF PROV SILVESTRE SUSY * Start: 08-20-2024 End: 08-20-2024 ambulatory 08/20/2024 10:00 AM EDT [facility] [address] [address] Mirtha Elder APRN.[employer] [address] [place] [address] Incomplete emptying of bladder Urology Comment on above: Incomplete emptying of bladder Start: 08-16-2024 End: 08-16-2024 Patient encounter procedure 08/16/2024 10:00 AM EDT Office Visit Internal Medicine [place] [address] [place] [address] Silvestre Jain APRN.[employer] [address] [place] [address] 3 month follow up Internal Medicine [place] Comment on above: 3 month follow up Start: 06-14-2024 End: 06-14-2024 Nutrition therapy 06/14/2024 12:15 PM EDT [facility] Nutrition Therapy [address] [place] [address] [place] [address] Class 3 severe obesity due to excess calories with body mass index (BMI) of 45.0... Nutrition Therapy Comment on above: Class 3 severe obesity due to excess kev ories with body mass index (BMI) of 45.0... Start: 05-24-2024 End: 05-24-2025 US Pelvis PELVIC US [facility] Anc Imaging Routine Pelvic pain Expected: 05/24/2024, Expires: 05/24/2025 [facility] Work Phone: Comment on above: Expected: 05/24/2024, Expires: Start: 05-24-2024 End: 05-24-2024 Nutrition therapy 05/24/2024 12:15 PM EDT [facility] Nutrition Therapy [address] [place] [address] Britney Anderson, RD [address] [place] [address] Class 3 severe obesity due to excess calories with body mass index (BMI) of 45.0... Nutrition Therapy Comment on above: Class 3 severe obesity due to excess kev ories with body mass index (BMI) of 45.0... Start: 05-22-2024 Annual PCP Team Chronic Disease Visit Annual PCP Team Chronic Disease Visit [facility] Start: 05-22-2024 Complete blood count Hemoglobin/Hematocrit [facility] Start: 05-22-2024 Covid-19 Vaccine () Covid-19 Vaccine () [facility] Comment on above: Postponed from 10/25/2022 (Declined at t his time) Start: 05-22-2024 Covid-19 Vaccine () Covid-19 Vaccine () [facility] Comment on above: Postponed from 10/25/2022 (Declined at t his time) Start: 05-22-2024 Creatinine measurement Serum Creatinine [facility] Start: 05-22-2024 Hepatitis B surface antibody level LDL Cholesterol [facility] Start: 05-21-2024 End: 05-21-2024 Manual pelvic examination 05/21/2024 10:00 AM EDT Procedure OB/Gynecology [address] [place] [address] [employer] [address] [place] [address] Pelvic pain [R10.2] OB/Gynecology Comment on above: Pelvic pain [R10.2] Start: 05-07-2024 End: 05-07-2025 US Pelvis PELVIC US [facility] Anc Imaging Routine Pelvic pain Expected: 05/07/2024, Expires: 05/07/2025 [facility] Work Phone: Comment on above: Expected: 05/07/2024, Expires: Start: 05-07-2024 End: 05-07-2024 Patient encounter procedure 05/07/2024 9:20 AM EDT Office Visit Internal Medicine [place] [address] [facility] [place] [place] [address] Silvestre Jain APRN.[employer] [address] [facility] [place] [address] discuss her weight; resume discussion from last OV with this provider Internal Medicine [place] Comment on above: discuss her weight; resume discussion fr om last OV with this provider Start: 05-03-2024 End: 05-03-2024 Nutrition therapy 05/03/2024 12:15 PM EDT Education Nutrition Therapy [address] [place] [address] Britney Anderson, RD [address] [place] [address] Class 3 severe obesity due to excess calories with body mass index (BMI) of 45.0... Nutrition Therapy Comment on above: Class 3 severe obesity due to excess kev ories with body mass index (BMI) of 45.0... Start: 04-23-2024 End: 04-23-2024 Patient encounter procedure 04/23/2024 10:15 AM EST Office Visit Podiatry [address] [place] [address] Tom Bolaños [address] [address] 3 month follow up for nailcare Podiatry Comment on above: 3 month follow up for nailcare Start: 04-17-2024 End: 04-17-2024 ambulatory 04/17/2024 11:40 AM EST [facility] Internal Medicine [place] [address] [place] [address] Erica Cannon MD [address] [place] [address] 3 mth f/u (r/s 03/16/24)- Internal Medicine [place] Comment on above: 3 mth f/u (r/s 03/16/24)- Start: 04-14-2024 Annual PCP Team Chronic Disease Visit Annual PCP Team Chronic Disease Visit [facility] Start: 04-10-2024 End: 04-10-2024 [facility] 04/10/2024 11:00 AM EST [facility] Internal Medicine [place] [address] [place] [address] Erica Cannon MD [address] [place] [address] 3 mth f/u (r/s 03/16/24)-needs refill on Mounjaro Internal Medicine [place] Comment on above: 3 mth f/u (r/s 03/16/24)-needs refill on Mounjaro Start: 04-02-2024 End: 04-02-2024 Patient encounter procedure 04/02/2024 11:30 AM EST Office Visit Podiatry [address] [place], [place] [id number] Tom Bolaños [address] [address] 3 month follow up for nailcare Podiatry Comment on above: 3 month follow up for nailcare Start: 03-26-2024 End: 06-25-2024 Bacteria identified in Urine by Culture BACTERIAL CULTURE, URINE Microbiology Routine Dysuria Expected: 03/26/2024, Expires: 06/25/2024 [facility] Comment on above: Expected: 03/26/2024, Expires: Start: 03-26-2024 End: 06-25-2024 Urinalysis complete panel - Urine URINALYSIS, WITH MICROSCOPIC Lab Routine Dysuria Expected: 03/26/2024, Expires: 06/25/2024 [facility] Work Phone: Comment on above: Expected: 03/26/2024, Expires: 5 Start: 03-26-2024 End: 03-26-2024 ambulatory [facility] [place] Comment on above: 3 mth f/u (r/s 03/16/24) 3 mth f/u (r/s )-needs refill on Mounjaro Start: 03-22-2024 End: 03-22-2024 Patient encounter procedure 03/22/2024 9:45 AM EST Office Visit Podiatry [address] [place], [place] [id number] Tom Bolaños [address] [address] 3 month follow up for nailcare Podiatry Comment on above: 3 month follow up for nailcare Start: 03-18-2024 End: 06-17-2024 Bacteria identified in Urine by Culture BACTERIAL CULTURE, URINE Microbiology Routine Dysuria Expected: 03/18/2024 (Approximate), Expires: 06/17/2024 [facility] Comment on above: Expected: 03/18/2024 (Approximate), Expi res: 06/17/2024 Start: 03-18-2024 End: 06-17-2024 URINALYSIS, REFLEX MICROSCOPIC URINALYSIS, REFLEX MICROSCOPIC Lab Routine Dysuria Expected: 03/18/2024 (Approximate), Expires: 06/17/2024 [facility] Work Phone: Comment on above: Expected: 03/18/2024 (Approximate), Expi res: 06/17/2024 Start: 03-16-2024 End: 03-16-2024 Patient encounter procedure 03/16/2024 10:00 AM EST Office Visit Internal Medicine [place] [address] [place] [address] Erica Cannon MD [address] [place] [address] 3 month follow up Internal Medicine [place] Comment on above: 3 month follow up Start: 03-04-2024 End: 03-04-2024 Patient encounter procedure 03/04/2024 8:15 AM EST Office Visit Podiatry [address] [place] [address] Tom Bolaños [address] [id number] 3 month follow up for nailcare Podiatry Comment on above: 3 month follow up for nailcare Start: 02-29-2024 Annual PCP Team Chronic Disease Visit Annual PCP Team Chronic Disease Visit [facility] Start: 02-21-2024 End: 05-22-2024 Bacteria identified in Urine by Culture URINE CULTURE Microbiology Routine UTI symptoms Expected: 02/21/2024, Expires: 05/22/2024 [facility] Comment on above: Expected: 02/21/2024, Expires: Start: 02-21-2024 End: 05-22-2024 Urinalysis complete panel - Urine URINALYSIS, WITH MICROSCOPIC Lab Routine UTI symptoms Expected: 02/21/2024, Expires: 05/22/2024 [facility] Work Phone: Comment on above: Expected: 02/21/2024, Expires: Start: 01-27-2024 Hzv zoster vacc recombinant adjuvanted im njx ZOSTER VACCINE, RECOMBINANT (SHINGRIX) Immunization/Injection Routine Encounter for immunization Expected: 01/27/2024 [facility] Work Phone: Comment on above: Expected: 01/27/2024 Start: 01-23-2024 Shingrix Vaccine (2 of 2) Shingrix Vaccine (2 of 2) [facility] Start: 01-02-2024 Annual PCP Team Chronic Disease Visit Annual PCP Team Chronic Disease Visit [facility] Start: 01-02-2024 Complete blood count Hemoglobin/Hematocrit [facility] Start: 01-02-2024 Creatinine measurement Serum Creatinine [facility] Start: 01-02-2024 Hemoglobin/Hematocrit Hemoglobin/Hematocrit [facility] Start: 01-02-2024 Serum Creatinine Serum Creatinine [facility] Start: 12-09-2023 End: 12-09-2023 Patient encounter procedure 12/09/2023 11:30 AM EDT Office Visit Podiatry [address] [place] [address] Tom Bolaños [address] [place] [id number] 3 month follow up for nailcare Podiatry Comment on above: 3 month follow up for nailcare Start: 12-09-2023 End: 12-09-2023 Patient encounter procedure Cat Scan Comment on above: Left lower quadrant abdominal pain [R10. 32] Start: 12-07-2023 Serum Creatinine Serum Creatinine [facility] Start: 12-05-2023 End: 12-05-2023 Patient encounter procedure Cat Scan Comment on above: Left lower quadrant abdominal pain [R10. 32] Start: 11-29-2023 Annual PCP Team Chronic Disease Visit Annual PCP Team Chronic Disease Visit [facility] Start: 11-28-2023 End: 11-28-2023 Patient encounter procedure 11/28/2023 1:00 PM EDT Office Visit Internal Medicine [place] [address] [place] [address] Silvestre Jain APRN.[employer] [address] [place], [place] [address] 3 month follow up [facility] [place] Comment on above: 3 month follow up Start: 11-28-2023 End: 11-28-2023 ambulatory 11/28/2023 11:15 AM EDT Procedure PULM LAB [facility] [address] [place], [place] [id number] W[facility], Pulm Lab [facility] [address] [place] [address] Pulmonary hypertension (HCC) [I27.20]; On supplemental oxygen therapy [Z99.81]; Hypoxia [R09.02] [facility] Comment on above: Pulmonary hypertension (HCC) [I27.20]; O n supplemental oxygen therapy [Z99.81]; Hypoxia [R09.02] Start: 11-25-2023 End: 11-25-2023 Patient encounter procedure 11/25/2023 8:20 AM EDT Office Visit Internal Medicine [place] [address] [place] [address] Erica Cannon MD [address] [place], [place] [id number] 6 minute walk test for oxygen [facility] [place] Comment on above: 6 minute walk test for oxygen Start: 11-23-2023 Hemoglobin A1c measurement HbA1C [facility] Start: 11-13-2023 Glaucoma screening Dilated Retinal Exam [facility] Start: 11-13-2023 Hepatitis C antibody, confirmatory test Dilated Retinal Exam [facility] Start: 11-13-2023 End: 11-13-2023 Patient encounter procedure 11/13/2023 9:30 AM EDT Office Visit Podiatry [address] [place] [address] Tom Bolaños [address] [place] [address] 3 month follow up for nailcare Podiatry Comment on above: 3 month follow up for nailcare Start: 11-06-2023 Annual PCP Team Chronic Disease Visit Annual PCP Team Chronic Disease Visit [facility] Start: 11-06-2023 Hemoglobin/Hematocrit Hemoglobin/Hematocrit [facility] Start: 11-06-2023 Hepatitis B surface antibody level LDL Cholesterol [facility] Start: 11-06-2023 Serum Creatinine Serum Creatinine [facility] Start: 11-05-2023 End: 11-05-2023 Patient encounter procedure 11/05/2023 11:00 AM EDT Office Visit Internal Medicine [place] [address] [place] [address] Silvestre Jain APRN.[employer] [address] [place], [place] [id number] 6 minute walk test for oxygen [facility] [place] Comment on above: 6 minute walk test for oxygen Start: 10-26-2023 Covid-19 Vaccine ( season) Covid-19 Vaccine ( season) [facility] Start: 10-26-2023 Covid-19 Vaccine ( season) Covid-19 Vaccine ( season) [facility] Start: 10-26-2023 [facility] Start: 10-24-2023 3 comp foot exam completed Diabetic Foot Exam [facility] Start: 10-24-2023 Diabetic foot examination [facility]abetic Foot Ex[facility] Start: 10-21-2023 End: 10-21-2023 Patient encounter procedure 10/21/2023 11:00 AM EDT Office Visit Internal Medicine [place] [address] [place], [place] [phone] Silvestre Jain APRN.[employer] [address] [place] [address] infected tooth [facility] [place] Comment on above: infected tooth Start: 10-08-2023 End: 10-08-2023 Patient encounter procedure 10/08/2023 11:10 AM EDT Office Visit OB/Gynecology [address] [place] [address] Jame Castañeda MD [address] [place] [address] annual - pap OB/Gynecology Comment on above: annual - pap Start: 09-22-2023 End: 09-22-2023 Patient encounter procedure [facility] Comment on above: diabetes consult-colonoscopy Start: 09-11-2023 End: 09-11-2023 Patient encounter procedure 09/11/2023 1:30 PM EDT Office Visit [facility]necology [address] [address] Aggie Elkins APRN.[employer] [address] [place] [address] annual - pap OB/Gynecology Comment on above: annual - pap Start: 08-31-2023 SERUM CREATININE SERUM CREATININE [facility] Start: 08-27-2023 End: 08-27-2023 Patient encounter procedure 08/27/2023 1:40 PM EDT Office Visit Internal Medicine [place] [address] [facility] [place] [address] Silvestre Jain APRN.[employer] [address] [place] [address] [facility] ER follow up - diverticulitis 08/04/23; 3 month FU medication [facility] [place] Comment on above: [facility] ER follow up - diverticulitis 4; 3 month FU medication Start: 08-25-2023 End: 08-25-2023 Patient encounter procedure 08/25/2023 11:00 AM EDT Office Visit [facility] [place] [address] [place] [address] Silvestre Jain APRN.[employer] [address] [place], [place] [id number] 3 month FU medication [facility] [place] Comment on above: 3 month FU medication Start: 08-22-2023 End: 08-22-2023 Patient encounter procedure 08/22/2023 2:40 PM EDT Office Visit [facility] [place] [address] [place] [address] Silvestre Jain APRN.[employer] [address] [place] [id number] [facility] ER follow up - diverticulitis 08/04/23 [facility] [place] Comment on above: [facility] ER follow up - diverticulitis 4 Start: 08-22-2023 ANNUAL PCP TEAM CHRONIC DISEASE VISIT ANNUAL PCP TEAM CHRONIC DISEASE VISIT [facility] Start: 08-22-2023 SERUM CREATININE SERUM CREATININE [facility] Start: 08-15-2023 End: 08-15-2023 Patient encounter procedure 08/15/2023 2:40 PM EDT Office Visit [facility] [place] [address] [place] [address] Silvestre Jain APRN.MANAGER [employer] [address] [place] [address] [facility] ER follow up - diverticulitis 08/04/23 [facility] [place] Comment on above: [facility] ER follow up - diverticulitis 4 Start: 08-13-2023 ANNUAL PCP TEAM CHRONIC DISEASE VISIT ANNUAL PCP TEAM CHRONIC DISEASE VISIT [facility] Start: 08-13-2023 HEMOGLOBIN/HEMATOCRIT HEMOGLOBIN/HEMATOCRIT [facility] Start: 08-12-2023 End: 08-12-2023 Patient encounter procedure 08/12/2023 9:30 AM EDT Office Visit Podiatry [address] [place] [address] Tom Bolaños [address] [place] [address] 3 month follow up nail care Podiatry Comment on above: 3 month follow up nail care Start: 08-08-2023 BP CONTROLLED (<130/80) BP CONTROLLED (<130/80) [facility] Start: 07-30-2023 End: 07-30-2023 Patient encounter procedure 07/30/2023 1:00 PM EDT Office Visit OB/Gynecology [address] [place] [address] Leticia Crowe, QUALITY REVIEW TRAINER.MANAGER [employer] [address] [place] [address] annual - pap OB/Gynecology Comment on above: annual - pap Start: 07-04-2023 End: 10-03-2023 Lipid 1996 panel - Serum or Plasma LIPID PANEL BASIC Lab Routine Type 2 diabetes (HCC) Expected: 07/04/2023, Expires: 10/03/2023 [facility] Work Phone: Comment on above: Expected: 07/04/2023, Expires: 4 Start: 06-30-2023 End: 06-30-2023 Patient encounter procedure 06/30/2023 11:00 AM EDT [facility] [address] [place] [address] Leticia Echavarria, [facility] [address] [place] [id number] diabetes [facility] Comment on above: diabetes Start: 06-05-2023 Hepatitis C antibody, confirmatory test DILATED RETINAL EXAM [facility] Start: 06-04-2023 End: 09-03-2023 Comprehensive metabolic 2000 panel - Serum or Plasma COMPREHENSIVE METABOLIC PANEL Lab Routine Type 2 diabetes (HCC) Expected: 06/04/2023, Expires: 09/03/2023 [facility] Work Phone: Comment on above: Expected: 06/04/2023, Expires: 4 Start: 05-22-2023 ANNUAL PCP TEAM CHRONIC DISEASE VISIT ANNUAL PCP TEAM CHRONIC DISEASE VISIT [facility] Start: 05-07-2023 End: 08-06-2023 CBC panel - Blood by Automated count CBC Lab Routine Iron deficiency anemia, unspecified iron deficiency anemia type Expected: 05/07/2023, Expires: 08/06/2023 [facility] Work Phone: Comment on above: Expected: 05/07/2023, Expires: Start: 05-07-2023 End: 08-06-2023 Hemoglobin A1c in Blood HGB A1C Lab Routine Type 2 diabetes ([facility]) Expected: 05/07/2023, Expires: 08/06/2023 [facility] Work Phone: Comment on above: Expected: 05/07/2023, Expires: Start: 05-06-2023 Hemoglobin A1c measurement HbA1C [facility] Start: 05-06-2023 Hemoglobin A1c/Hemoglobin.total in Blood HbA1C [facility] Start: 04-23-2023 ANNUAL PCP TEAM CHRONIC DISEASE VISIT ANNUAL PCP TEAM CHRONIC DISEASE VISIT [facility] Start: 03-02-2023 Hemoglobin A1c/Hemoglobin.total in Blood HBA1C [facility] Start: 03-01-2023 End: 05-31-2023 ALBUMIN/CREAT RATIO RND UR ALBUMIN/CREAT RATIO RND UR Lab Routine Type 2 diabetes ([facility]) Expected: 03/01/2023, Expires: 05/31/2023 [facility] Work Phone: Comment on above: Expected: 03/01/2023, Expires: Start: 03-01-2023 End: 05-31-2023 Basic metabolic 2000 panel - Serum or Plasma BASIC METABOLIC PNL Lab Routine Type 2 diabetes ([facility]) Expected: 03/01/2023, Expires: 05/31/2023 [facility] Work Phone: Comment on above: Expected: 03/01/2023, Expires: Start: 02-15-2023 ANNUAL PCP TEAM CHRONIC DISEASE VISIT ANNUAL PCP TEAM CHRONIC DISEASE VISIT [facility] Start: 01-01-2023 End: 01-02-2024 PELVIC US WHI PELVIC US WHI Anc Imaging Routine Pelvic pain Expected: 01/01/2023, Expires: 01/02/2024 [facility] Work Phone: Comment on above: Expected: 01/01/2023, Expires: 4 Start: 11-05-2022 End: 01-05-2023 25-hydroxyvitamin D3 [Mass/volume] in Serum or Plasma [facility] Work Phone: Comment on above: Expected: 11/05/2022, Expires: 3 Start: 11-05-2022 End: 01-05-2023 Comprehensive metabolic 2000 panel - Serum or Plasma [facility] Work Phone: Comment on above: Expected: 11/05/2022, Expires: 3 Start: 11-05-2022 End: 01-05-2023 Ferritin [Mass/volume] in Serum or Plasma [facility] Work Phone: Comment on above: Expected: 11/05/2022, Expires: 3 Start: 11-05-2022 End: 01-05-2023 Iron and Iron binding capacity panel - Serum or Plasma [facility] Work Phone: Comment on above: Expected: 11/05/2022, Expires: 3 Start: 11-05-2022 End: 01-05-2023 Lipid 1996 panel - Serum or Plasma [facility] Work Phone: Comment on above: Expected: 11/05/2022, Expires: 3 Start: 11-05-2022 End: 01-05-2023 Magnesium [Mass/volume] in Serum or Plasma [facility] Work Phone: Comment on above: Expected: 11/05/2022, Expires: 3 Start: 11-05-2022 End: 01-05-2023 Thyrotropin [Units/volume] in Serum or Plasma [facility] Work Phone: Comment on above: Expected: 11/05/2022, Expires: Start: 10-25-2022 Covid-19 Vaccine () Covid-19 Vaccine () [facility] Start: 10-25-2022 Influenza vaccination INFLUENZA (#1) [facility] Start: 08-27-2022 Hemoglobin A1c/Hemoglobin.total in Blood HBA1C [facility] Start: 08-22-2022 [facility] Start: 08-21-2022 [facility] Start: 08-20-2022 [facility] Start: 08-19-2022 Patient discharge [facility] Start: 08-18-2022 [facility] Start: 08-17-2022 Referral to general surgeon [facility] Start: 08-17-2022 Removal of urinary catheter [facility] Start: 08-17-2022 [facility] Start: 08-16-2022 Referral to occupational therapist [facility] Start: 08-16-2022 Notification of physician [facility] Start: 08-16-2022 Care regimes management [facility] Start: 08-15-2022 End: 08-15-2022 Blood culture [facility] Start: 08-15-2022 [facility] Start: 08-15-2022 Referral to manager mba [facility] Start: 08-15-2022 Introduction of urinary catheter [facility] Start: 08-15-2022 Protein measurement [facility] Start: 08-15-2022 Referral to service [facility] Start: 08-14-2022 Ambulation without limitation [facility] Start: 08-14-2022 Assessment of risk of venous thromboembolism [facility] Start: 08-14-2022 Inhalation therapy procedure [facility] Start: 08-14-2022 Insertion of catheter into peripheral vein [facility] Start: 08-14-2022 Measuring intake and output [facility] Start: 08-14-2022 Oxygen therapy [facility] Start: 08-14-2022 Providing care according to standard [facility] Start: 08-14-2022 Provision of activity privileges [facility] Start: 08-14-2022 [facility] Start: 08-14-2022 Following clinical pathway protocol [facility] Start: 08-14-2022 Verification routine [facility] Start: 08-14-2022 Admission procedure [facility] Start: 08-14-2022 [facility] Start: 08-14-2022 Enteric precautions [facility] Start: 08-12-2022 End: 10-12-2022 Calprotectin [Mass/mass] in Stool [facility] Work Phone: Comment on above: Expected: 08/12/2022 (Approximate), Expi res: 10/12/2022 Start: 08-12-2022 End: 10-12-2022 Comprehensive metabolic 2000 panel - Serum or Plasma [facility] Work Phone: Comment on above: Expected: 08/12/2022, Expires: 3 Start: 08-12-2022 End: 10-12-2022 ENTERIC BACTERIAL PANEL BY PCR [facility] Work Phone: Comment on above: Expected: 08/12/2022 (Approximate), Expi res: 10/12/2022 Start: 08-12-2022 End: 10-12-2022 Thyrotropin [Units/volume] in Serum or Plasma [facility] Work Phone: Comment on above: Expected: 08/12/2022, Expires: 3 Start: 08-07-2022 End: 08-08-2023 Echocardiography ECHO Cardiology Routine Pre-operative examination Expected: 08/07/2022, Expires: 08/08/2023 [facility] Work Phone: Comment on above: Expected: 08/07/2022, Expires: 4 Start: 07-07-2022 SERUM CREATININE SERUM CREATININE [facility] Start: 07-05-2022 ANNUAL PCP TEAM CHRONIC DISEASE VISIT ANNUAL PCP TEAM CHRONIC DISEASE VISIT [facility] Start: 05-16-2022 End: 07-16-2022 ALBUMIN/CREAT RATIO RND UR ALBUMIN/CREAT RATIO RND UR Lab Routine Type 2 diabetes (HCC) Hypertension, unspecified type Encounter for long-term current use of medication Expected: 05/16/2022, Expires: 07/16/2022 [facility] Work Phone: Comment on above: Expected: 05/16/2022, Expires: Start: 05-16-2022 End: 07-16-2022 CBC panel - Blood by Automated count CBC Lab Routine Hypertension, unspecified type Encounter for long-term current use of medication Expected: 05/16/2022, Expires: 07/16/2022 [facility] Work Phone: Comment on above: Expected: 05/16/2022, Expires: Start: 05-16-2022 End: 07-16-2022 Comprehensive metabolic 2000 panel - Serum or Plasma COMP METABOLIC PANEL Lab Routine Type 2 diabetes (HCC) Hypertension, unspecified type Encounter for long-term current use of medication Expected: 05/16/2022, Expires: 07/16/2022 [facility] Work Phone: Comment on above: Expected: 05/16/2022, Expires: Start: 05-16-2022 End: 07-16-2022 Ferritin [Mass/volume] in Serum or Plasma FERRITIN BLD Lab Routine Encounter for long-term current use of medication Low ferritin level Expected: 05/16/2022, Expires: 07/16/2022 [facility] Work Phone: Comment on above: Expected: 05/16/2022, Expires: Start: 05-16-2022 End: 07-16-2022 Hemoglobin A1c in Blood HGB A1C Lab Routine Type 2 diabetes (HCC) Encounter for long-term current use of medication Expected: 05/16/2022, Expires: 07/16/2022 [facility] Work Phone: Comment on above: Expected: 05/16/2022, Expires: Start: 05-16-2022 End: 07-16-2022 Iron and Iron binding capacity panel - Serum or Plasma IRON + TIBC Lab Routine Encounter for long-term current use of medication Low ferritin level Expected: 05/16/2022, Expires: 07/16/2022 [facility] Work Phone: Comment on above: Expected: 05/16/2022, Expires: 3 Start: 05-16-2022 End: 07-16-2022 Lipid 1996 panel - Serum or Plasma LIPID PANEL BASIC Lab Routine Type 2 diabetes (HCC) Encounter for long-term current use of medication Expected: 05/16/2022, Expires: 07/16/2022 [facility] Work Phone: Comment on above: Expected: 05/16/2022, Expires: Start: 05-16-2022 End: 07-16-2022 LIPID PANEL, NONFASTING LIPID PANEL, NONFASTING Lab Routine Type 2 diabetes (HCC) Encounter for long-term current use of medication Expected: 05/16/2022, Expires: 07/16/2022 [facility] Work Phone: Comment on above: Expected: 05/16/2022, Expires: Start: 05-16-2022 End: 07-16-2022 Magnesium [Mass/volume] in Serum or Plasma MAGNESIUM BLD Lab Routine Encounter for long-term current use of medication Expected: 05/16/2022, Expires: 07/16/2022 [facility] Work Phone: Comment on above: Expected: 05/16/2022, Expires: 3 Start: 05-14-2022 ANNUAL PCP TEAM CHRONIC DISEASE VISIT ANNUAL PCP TEAM CHRONIC DISEASE VISIT [facility] Start: 05-08-2022 End: 07-08-2022 Bacteria identified in Urine by Culture URINE CULTURE Microbiology Routine Dysuria Expected: 05/08/2022, Expires: 07/08/2022 [facility] Work Phone: Comment on above: Expected: 05/08/2022, Expires: 3 Start: 05-08-2022 End: 07-08-2022 Urinalysis complete panel - Urine URINALYSIS, WITH MICROSCOPIC Lab Routine Dysuria Expected: 05/08/2022, Expires: 07/08/2022 [facility] Work Phone: Comment on above: Expected: 05/08/2022, Expires: Start: 04-30-2022 BP CONTROLLED (<130/80) BP CONTROLLED (<130/80) [facility] Start: 04-30-2022 Hepatitis B surface antibody level LDL CHOLESTEROL [facility] Start: 04-10-2022 Hepatitis C antibody, confirmatory test DILATED RETINAL EXAM [facility] Start: 02-20-2022 End: 04-22-2022 CBC panel - Blood by Automated count CBC Lab Routine Encounter for long-term current use of medication Expected: 02/20/2022 (Approximate), Expires: 04/22/2022 [facility] Work Phone: Comment on above: Expected: 02/20/2022 (Approximate), Expi res: 04/22/2022 Start: 02-20-2022 End: 04-22-2022 Comprehensive metabolic 2000 panel - Serum or Plasma COMP METABOLIC PANEL Lab Routine Type 2 diabetes (HCC) Encounter for long-term current use of medication Expected: 02/20/2022 (Approximate), Expires: 04/22/2022 [facility] Work Phone: Comment on above: Expected: 02/20/2022 (Approximate), Expi res: 04/22/2022 Start: 02-20-2022 End: 04-22-2022 Hemoglobin A1c in Blood HGB A1C Lab Routine Type 2 diabetes (HCC) Encounter for long-term current use of medication Expected: 02/20/2022 (Approximate), Expires: 04/22/2022 [facility] Work Phone: Comment on above: Expected: 02/20/2022 (Approximate), Expi res: 04/22/2022 Start: 02-20-2022 End: 04-22-2022 Magnesium [Mass/volume] in Serum or Plasma MAGNESIUM BLD Lab Routine Encounter for long-term current use of medication Expected: 02/20/2022 (Approximate), Expires: 04/22/2022 [facility] Work Phone: Comment on above: Expected: 02/20/2022 (Approximate), Expi res: 04/22/2022 Start: 01-17-2022 SHINGRIX VACCINE (1 of 2) SHINGRIX VACCINE (1 of 2) [facility] Comment on above: Postponed from 12/21/2009 (Declined at t his time) Start: 01-07-2022 Hemoglobin A1c/Hemoglobin.total in Blood HBA1C [facility] Start: 11-20-2021 Patient discharge [facility] Work Phone: Start: 11-20-2021 Removal of urinary catheter [facility] Work Phone: Start: 11-19-2021 Continuous pulse oximetry [facility] Work Phone: Start: 11-19-2021 Care planning and problem solving actions [facility] Work Phone: Start: 11-19-2021 Referral to manager mba [facility] Work Phone: Start: 11-19-2021 Continuous positive airway pressure ventilation treatment [facility] Work Phone: Start: 11-18-2021 End: 11-18-2021 Following clinical pathway protocol [facility] Work Phone: Start: 11-18-2021 [facility] Work Phone: Start: 11-18-2021 Application of intermittent pneumatic compression device [facility] Work Phone: Start: 11-18-2021 Assessment of risk of venous thromboembolism [facility] Work Phone: Start: 11-18-2021 Care regimes management [facility] Work Phone: Start: 11-18-2021 Consultation [facility] Work Phone: Start: 11-18-2021 Elevation of head of bed [facility] Work Phone: Start: 11-18-2021 Fall prevention [facility] Work Phone: Start: 11-18-2021 Incentive spirometry [facility] Work Phone: Start: 11-18-2021 Inhalation therapy procedure [facility] Work Phone: Start: 11-18-2021 Insertion of catheter into peripheral vein [facility] Work Phone: Start: 11-18-2021 Introduction of urinary catheter [facility] Work Phone: Start: 11-18-2021 Measuring intake and output [facility] Work Phone: Start: 11-18-2021 Oxygen therapy [facility] Work Phone: Start: 11-18-2021 Patient referral to dietitian [facility] Work Phone: Start: 11-18-2021 Providing care according to standard [facility] Work Phone: Start: 11-18-2021 Provision of activity privileges [facility] Work Phone: Start: 11-18-2021 Referral to occupational therapist [facility] Work Phone: Start: 11-18-2021 Referral to service [facility] Work Phone: Start: 11-18-2021 Vital signs measurements [facility] Work Phone: Start: 11-18-2021 [facility] Work Phone: Start: 11-18-2021 Verification routine [facility] Work Phone: Start: 11-18-2021 Admission procedure [facility] Work Phone: Start: 11-18-2021 End: 11-19-2021 [facility] Work Phone: Start: 11-18-2021 Patient referral to dietitian [facility] Work Phone: Start: 10-31-2021 Hemoglobin A1c/Hemoglobin.total in Blood HBA1C [facility] Start: 10-25-2021 Influenza vaccination [facility] Start: 08-16-2021 Patient discharge [facility] Work Phone: Start: 08-15-2021 [facility] Work Phone: Start: 08-14-2021 [facility] Work Phone: Start: 08-11-2021 [facility] Work Phone: Start: 08-08-2021 Care planning and problem solving actions [facility] Work Phone: Start: 08-08-2021 [facility] Work Phone: Start: 08-02-2021 Wound care [facility] Work Phone: Start: 08-01-2021 Catheterization of vein [facility] Work Phone: Start: 08-01-2021 [facility] Work Phone: Start: 08-01-2021 Speech therapy assessment [facility] Work Phone: Start: 08-01-2021 Consultation for treatment [facility] Work Phone: Start: 08-01-2021 Referral to gastroenterology service [facility] Work Phone: Start: 08-01-2021 [facility] Work Phone: Start: 08-01-2021 [facility] Start: 07-31-2021 Continuous pulse oximetry [facility] Work Phone: Start: 07-31-2021 Dual pressure spontaneous ventilation support [facility] Work Phone: Start: 07-31-2021 Consultation [facility] Work Phone: Start: 07-31-2021 Assessment of risk of venous thromboembolism [facility] Work Phone: Start: 07-31-2021 Care regimes management [facility] Work Phone: Start: 07-31-2021 Inhalation therapy procedure [facility] Work Phone: Start: 07-31-2021 Insertion of catheter into peripheral vein [facility] Work Phone: Start: 07-31-2021 Measuring intake and output [facility] Work Phone: Start: 07-31-2021 Oxygen therapy [facility] Work Phone: Start: 07-31-2021 Providing care according to standard [facility] Work Phone: Start: 07-31-2021 Provision of activity privileges [facility] Work Phone: Start: 07-31-2021 Referral to occupational therapist [facility] Work Phone: Start: 07-31-2021 Referral to service [facility] Work Phone: Start: 07-31-2021 [facility] Work Phone: Start: 07-31-2021 Following clinical pathway protocol [facility] Work Phone: Start: 07-31-2021 Admission procedure [facility] Work Phone: Start: 07-31-2021 Chart related administrative procedure [facility] Work Phone: Start: 07-05-2021 End: 09-04-2021 CBC panel - Blood by Automated count CBC Lab Routine Encounter for long-term current use of medication Primary hypertension Expected: 07/05/2021, Expires: 09/04/2021 [facility] Work Phone: Comment on above: Expected: 07/05/2021, Expires: 2 Start: 07-05-2021 End: 09-04-2021 Comprehensive metabolic 2000 panel - Serum or Plasma COMP METABOLIC PANEL Lab Routine Type 2 diabetes (HCC) Encounter for long-term current use of medication Primary hypertension Expected: 07/05/2021, Expires: 09/04/2021 [facility] Work Phone: Comment on above: Expected: 07/05/2021, Expires: 2 Start: 07-05-2021 End: 09-04-2021 FERRITIN BLD FERRITIN BLD Lab Routine Iron deficiency anemia, unspecified iron deficiency anemia type Expected: 07/05/2021, Expires: 09/04/2021 [facility] Work Phone: Comment on above: Expected: 07/05/2021, Expires: 2 Start: 07-05-2021 End: 09-04-2021 Folate [Mass/volume] in Serum or Plasma FOLATE SERUM Lab Routine Iron deficiency anemia, unspecified iron deficiency anemia type Expected: 07/05/2021, Expires: 09/04/2021 [facility] Work Phone: Comment on above: Expected: 07/05/2021, Expires: 2 Start: 07-05-2021 End: 09-04-2021 Hemoglobin A1c/Hemoglobin.total in Blood HGB A1C Lab Routine Type 2 diabetes (HCC) Expected: 07/05/2021, Expires: 09/04/2021 [facility] Work Phone: Comment on above: Expected: 07/05/2021, Expires: 2 Start: 07-05-2021 End: 09-04-2021 IRON + TIBC IRON + TIBC Lab Routine Iron deficiency anemia, unspecified iron deficiency anemia type Expected: 07/05/2021, Expires: 09/04/2021 [facility] Work Phone: Comment on above: Expected: 07/05/2021, Expires: 2 Start: 07-05-2021 End: 09-04-2021 Magnesium [Mass/volume] in Serum or Plasma MAGNESIUM BLD Lab Routine Encounter for long-term current use of medication Expected: 07/05/2021, Expires: 09/04/2021 [facility] Work Phone: Comment on above: Expected: 07/05/2021, Expires: 2 Start: 07-05-2021 End: 09-04-2021 VITAMIN B12 BLOOD VITAMIN B12 BLOOD Lab Routine Iron deficiency anemia, unspecified iron deficiency anemia type Expected: 07/05/2021, Expires: 09/04/2021 [facility] Work Phone: Comment on above: Expected: 07/05/2021, Expires: 2 Start: 06-13-2021 COVID-19 VACCINE (4 - Booster for Moderna series) COVID-19 VACCINE (4 - Booster for Moderna series) [facility] Start: 04-09-2021 COVID-19 VACCINE (4 - Booster for Moderna series) COVID-19 VACCINE (4 - Booster for Moderna series) [facility] Start: 04-09-2021 COVID-19 VACCINE (4 - Moderna series) COVID-19 VACCINE (4 - Moderna series) [facility] Start: 04-09-2021 Covid-19 Vaccine (6 - Mixed Product series) Covid-19 Vaccine (6 - Mixed Product series) [facility] Start: 01-29-2021 Colonoscopy COLONOSCOPY [facility] Start: 01-29-2021 COLORECTAL CANCER SCREENING COLORECTAL CANCER SCREENING [facility] Start: 01-29-2021 Screening for malignant neoplasm of colon [facility] Start: 11-05-2020 Hepatitis B screening URINE ALBUMIN:CREATININE RATIO [facility] Start: 10-25-2020 End: 10-25-2021 CBC panel - Blood by Automated count CBC Lab Routine Encounter for long-term current use of medication Diabetes with skin complication (HCC) Expected: 10/25/2020, Expires: 10/25/2021 [facility] Work Phone: Comment on above: Expected: 10/25/2020, Expires: 2 Start: 10-25-2020 End: 10-25-2021 Comprehensive metabolic 2000 panel - Serum or Plasma COMP METABOLIC PANEL Lab Routine Encounter for long-term current use of medication Diabetes with skin complication (HCC) Expected: 10/25/2020, Expires: 10/25/2021 [facility] Work Phone: Comment on above: Expected: 10/25/2020, Expires: 2 Start: 07-26-2020 3 comp foot exam completed [facility] Start: 03-30-2020 BP CONTROLLED (<130/80) BP CONTROLLED (<130/80) [facility] Start: 2019 RSV Vaccine (1 - 1-dose 60+ series) RSV Vaccine (1 - 1-dose 60+ series) [facility] Start: 2019 RSV Vaccine (1 - Risk 60-74 years 1-dose series) RSV Vaccine (1 - Risk 60-74 years 1-dose series) [facility] Start: 09-28-2019 HEPATITIS A (2 of 2 - Risk 2-dose series) HEPATITIS A (2 of 2 - Risk 2-dose series) [facility] Start: 09-28-2019 Hepatitis A Vaccine (2 of 2 - Risk 2-dose series) Hepatitis A Vaccine (2 of 2 - Risk 2-dose series) [facility] Start: 12-29-2018 HPV TESTING HPV TESTING [facility] Start: 12-29-2018 PAP TESTING PAP TESTING [facility] Start: 12-29-2018 Screening for malignant neoplasm of cervix [facility] Start: 11-27-2016 FECAL OCCULT BLOOD FECAL OCCULT BLOOD [facility] Start: 11-27-2016 Screening for malignant neoplasm of colon Fecal Occult Blood [facility] Start: 03-17-2014 TWO PNEUMOVAX 5 YEARS APART PRIOR TO AGE 65 (#2) TWO PNEUMOVAX 5 YEARS APART PRIOR TO AGE 65 (#2) [facility] Start: 05-22-2012 Mammography [facility] Start: 05-22-2012 Screening for malignant neoplasm of breast Mammogram Screening [facility] Start: 03-17-2010 PNEUMOCOCCAL (2 - PCV) PNEUMOCOCCAL (2 - PCV) [facility] ic Start: 12-21-2009 SHINGRIX VACCINE (1 of 2) SHINGRIX VACCINE (1 of 2) [facility] Start: 12-21-2004 COLOGUARD (FIT-DNA) COLOGUARD (FIT-DNA) [facility] Start: 12-21-[address] COLONOGRAPHY [facility] Start: 12-21-2004 Screening for malignant neoplasm of colon [facility] Start: 12-21-2004 SIGMOIDOSCOPY SIGMOIDOSCOPY [facility] Start: 12-21-1978 ADULT PREVNAR ADULT PREVNAR [facility] Start: 12-21-1978 ADULT PREVNAR-13 ADULT PREVNAR-13 [facility] Start: 12-21-1978 Urine microalbumin profile [facility] Start: 12-21-1977 HIV SCREENING [facility] Start: 12-21-1977 HIV screening HIV Screening [facility] BACH SCREENING TEST BACH SCREENI NG TEST Procedures Routine Concern about memory Ordered: 09/21/2024 [facility] Comment on above: Ordered: 09/21/2024 Bacteria identified in Blood by Culture Blood Culture [facility] Bacteria identified in Urine by Culture Urine Culture [facility] Bacteria identified in Urine by Culture BACTERIAL CULTURE, URINE Microbiology Routine Urinary frequency 06/23/2024 8:00 PM EDT [facility] Work Phone: Bacteria identified in Urine by Culture BACTERIAL CULTURE, URINE Microbiology Routine Dysuria Ordered: 07/18/2024 [facility] Work Phone: Comment on above: Ordered: 07/18/2024 Bacteria identified in Urine by Culture BACTERIAL CULTURE, URINE Microbiology Routine Dysuria 10/29/2024 8:28 AM EDT [facility] Work Phone: BSCAN OS (LEFT EYE) BSCAN OS (LE FT EYE) OPHT Imaging Routine Other vitreous opacities, left eye 06/04/2022 10:13 AM EDT [facility] Work Phone: C. difficile DNA Amplification C. difficile DNA Amplification [facility] Catecholamine measurement [facility] Clostridioides diffi cile DNA [Presence] in Unspecified specimen by CHRISTIANO with probe detection [facility] Clostridioides diffi cile toxin genes [Presence] in Stool by CHRISTIANO with probe detection C. DIFFICILE PCR Lab Routine Diarrhea, unspecified type Ordered: 06/24/2022 [facility] Work Phone: Comment on above: Ordered: 06/24/2022 End: 09-13-2023 Ct abdomen & pelvis w/o contrast material CT ABD/PEL WO IVCON Radiology STAT Nausea 1 Occurrences starting 08/14/2022 until 09/13/2023 [facility] Work Phone: Comment on above: 1 Occurrences starting 08/14/2022 until 09/13/2023 End: 12-05-2024 CT Abdomen and Pelvis WO contrast CT ABD/PEL WO IVCON Radiology Routine Left lower quadrant abdominal pain Diverticulitis 1 Occurrences starting 11/06/2023 until 12/05/2024 [facility] Work Phone: Comment on above: 1 Occurrences starting 11/06/2023 until 12/05/2024 End: 12-20-2024 CT Abdomen and Pelvis WO contrast CT ABD/PEL WO IVCON Radiology Routine Left lower quadrant abdominal pain 1 Occurrences starting 11/21/2023 until 12/20/2024 [facility] Comment on above: 1 Occurrences starting 11/21/2023 until 12/20/2024 End: 11-06-2024 DBT Breast - bilateral screening NITO SCREENING W NISHANT Radiology Routine Encounter for screening mammogram for breast cancer 1 Occurrences starting 10/08/2023 until 11/06/2024 [facility] Work Phone: Comment on above: 1 Occurrences starting 10/08/2023 until 11/06/2024 End: 10-14-2025 DBT Breast - bilateral screening NITO SCREENING W NISHANT Radiology Routine Encounter for screening mammogram for breast cancer 1 Occurrences starting 09/14/2024 until 10/14/2025 [facility] Work Phone: Comment on above: 1 Occurrences starting 09/14/2024 until 10/14/2025 End: 10-29-2025 ECG COMPLETE ECG COMPLETE ECG Routine Anemia, unspecified type IgM monoclonal gammopathy of uncertain significance 1 Occurrences starting 10/29/2024 until 10/29/2025 [facility] Comment on above: 1 Occurrences starting 10/29/2024 until 10/29/2025 End: 11-01-2025 Echocardiography ECHO Cardiology Routine Nonspecific abnormal electrocardiogram (ECG) (EKG) IgM lambda paraproteinemia Elevated brain natriuretic peptide (BNP) level 1 Occurrences starting 11/01/2024 until 11/01/2025 [facility] Work Phone: Comment on above: 1 Occurrences starting 11/01/2024 until 11/01/2025 ENTERIC BACTERIAL PA TOMMY BY PCR ENTERIC BACTERIAL PANEL BY PCR Lab Routine Diarrhea, unspecified type Ordered: 06/24/2022 [facility] Work Phone: Comment on above: Ordered: 06/24/2022 Enteric Bacteriology Enteric Bacteriology [facility] Gastrointestinal pat hogens panel - Stool by CHRISTIANO with probe detection [facility] Helicobacter pylori Ag [Presence] in Stool by Immunoassay H PYLORI AG BY EIA,STOOL Microbiology Routine Diarrhea, unspecified type Ordered: 06/24/2022 [facility] Work Phone: Comment on above: Ordered: 06/24/2022 Hematocrit [Volume Fraction] of Blood [facility] Work Phone: Hemoglobin [Mass/vol ume] in Blood [facility] Work Phone: Hemoglobin.gastroint estina l.lower [Presence] in Stool by Immunoassay IMMUNOCHEMICAL FECAL OCCULT BLOOD TEST Lab Routine Iron deficiency anemia, unspecified iron deficiency anemia type Ordered: 08/18/2024 [facility] Work Phone: Comment on above: Ordered: 08/18/2024 Leukocytes [#/volume ] in Blood [facility] Work Phone: End: 10-25-2021 Magnesium [Mass/volume] in Serum or Plasma MAGNESIUM BLD Lab Routine Encounter for long-term current use of medication Diabetes with skin complication (HCC) 1 Occurrences starting 10/25/2020 until 10/25/2021 [facility] Work Phone: Comment on above: 1 Occurrences starting 10/25/2020 until 10/25/2021 Mean corpuscular hemoglobin concentration determination [facility] Work Phone: Mean corpuscular hemoglobin determination [facility] Work Phone: End: 08-07-2024 MG Breast Screening NITO SCREENING Radiology Routine Encounter for screening mammogram for breast cancer 1 Occurrences starting 07/09/2023 until 08/07/2024 [facility] Work Phone: Comment on above: 1 Occurrences starting 07/09/2023 until 08/07/2024 MONOCLONAL PROT 24 U R W/INTERP MONOCLONAL PROT 24 UR W/INTERP Lab Routine 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 Low iron Ordered: 09/24/2024 [facility] Comment on above: Ordered: 09/24/2024 MONOCLONAL PROT 24 U R W/INTERP MONOCLONAL PROT 24 UR W/INTERP Lab Routine Anemia, unspecified type IgM monoclonal gammopathy of uncertain significance Ordered: 10/29/2024 [facility] Comment on above: Ordered: 10/29/2024 Neutrophil count [facility] Work Phone: Neutrophil percent differential count [facility] Work Phone: End: 08-16-2022 Non-invasive physiologic study extremity 3 levls US ARTERIAL PVR LOWER Radiology Routine Peripheral vascular disease, unspecified (HCC) 1 Occurrences starting 07/17/2021 until 08/16/2022 [facility] Work Phone: Comment on above: 1 Occurrences starting 07/17/2021 until 08/16/2022 Ova and Parasites Ova and Parasites [facility] Ova and parasites identified in Unspecified specimen by Light microscopy [facility] Ova and parasites identified in Unspecified specimen by Light microscopy [facility] End: 12-20-2024 OXIMETRY WITH AMBULATION OXIMETRY WITH AMBULATION PFT Routine Pulmonary hypertension (HCC) On supplemental oxygen therapy Hypoxia 1 Occurrences starting 11/21/2023 until 12/20/2024 [facility] Work Phone: Comment on above: 1 Occurrences starting 11/21/2023 until 12/20/2024 End: 10-08-2025 OXIMETRY WITH AMBULATION OXIMETRY WITH AMBULATION PFT Routine Moderate persistent asthma without complication (HCC) Hypoxia 1 Occurrences starting 09/13/2024 until 10/08/2025 [facility] Work Phone: Comment on above: 1 Occurrences starting 09/13/2024 until 10/08/2025 End: 10-25-2021 PAIN PANEL, UR QUANT PAIN PANEL, UR QUANT Lab Routine Encounter for long-term current use of medication Diabetes with skin complication (HCC) Every 4 months for 4 Occurrences starting 10/25/2020 until 10/25/2021 [facility] Work Phone: Comment on above: Every 4 months for 4 Occurrences startin g 10/25/2020 until 10/25/2021 PAP TEST PAP TEST Lab Gabino curiel Encounter for gynecological examination (general) (routine) without abnormal findings Encounter for screening for human papillomavirus (HPV) Pap smear for cervical cancer screening Ordered: 10/08/2023 [facility] Comment on above: Ordered: 10/08/2023 Patient Education ED Hematoma [facility] Work Phone: Patient referral [facility] Work Phone: Platelets [#/volume] in Blood [facility] Work Phone: PROT ELEC UR 24HR W/ M SPIKE (P) PROT ELEC UR 24HR W/M SPIKE (P) Lab Routine 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 Low iron Ordered: 09/24/2024 [facility] Comment on above: Ordered: 09/24/2024 PROT ELEC UR 24HR W/ M SPIKE (P) PROT ELEC UR 24HR W/M SPIKE (P) Lab Routine Anemia, unspecified type IgM monoclonal gammopathy of uncertain significance Ordered: 10/29/2024 [facility] Comment on above: Ordered: 10/29/2024 PROT ELEC UR 24HR W/ M SPIKE AND INTERP PROT ELEC UR 24HR W/M SPIKE AND INTERP Lab Routine 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 Low iron Ordered: 09/24/2024 [facility] Comment on above: Ordered: 09/24/2024 PROT ELEC UR 24HR W/ M SPIKE AND INTERP PROT ELEC UR 24HR W/M SPIKE AND INTERP Lab Routine Anemia, unspecified type IgM monoclonal gammopathy of uncertain significance Ordered: 10/29/2024 [facility] Work Phone: Comment on above: Ordered: 10/29/2024 Protein [Mass/time] in 24 hour Urine PROTEIN, 24 HOUR URINE Lab Routine 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 Low iron Ordered: 09/24/2024 [facility] Comment on above: Ordered: 09/24/2024 Protein [Mass/time] in 24 hour Urine PROTEIN, 24 HOUR URINE Lab Routine Anemia, unspecified type IgM monoclonal gammopathy of uncertain significance Ordered: 10/29/2024 [facility] Comment on above: Ordered: 10/29/2024 Red blood cell count [facility] Work Phone: Red cell distributio n width determination [facility] Work Phone: End: 09-21-2022 Screening mammography bi 2-view breast inc cad NITO SCREENING Radiology Routine Encounter for screening mammogram for breast cancer 1 Occurrences starting 08/22/2021 until 09/21/2022 [facility] Work Phone: Comment on above: 1 Occurrences starting 08/22/2021 until 09/21/2022 End: 12-04-2024 SIX MINUTE WALK SIX MINUTE WALK PFT Routine Moderate persistent asthma without complication On supplemental oxygen therapy Obstructive sleep apnea Pulmonary hypertension (HCC) 1 Occurrences starting 11/05/2023 until 12/04/2024 [facility] Work Phone: Comment on above: 1 Occurrences starting 11/05/2023 until 12/04/2024 End: 10-25-2021 TOX SCREEN ROUT UR TOX SCREEN ROUT UR Lab Routine Encounter for long-term current use of medication Diabetes with skin complication (HCC) Every 4 months for 4 Occurrences starting 10/25/2020 until 10/25/2021 [facility] Work Phone: Comment on above: Every 4 months for 4 Occurrences startin g 10/25/2020 until 10/25/2021 End: 08-27-2025 US Kidney - bilateral and Urinary bladder US KIDNEY/BLADDER Radiology Routine Incomplete emptying of bladder 1 Occurrences starting 07/28/2024 until 08/27/2025 [facility] Work Phone: Comment on above: 1 Occurrences starting 07/28/2024 until 08/27/2025 End: 08-25-2022 XR KNEE GENERAL 4V AP BOTH/PA BOTH/LAT/MERC BILATERAL XR KNEE GENERAL 4V AP BOTH/PA BOTH/LAT/MERC BILATERAL Radiology Routine Pain in both knees, unspecified chronicity 1 Occurrences starting 07/26/2021 until 08/25/2022 [facility] Work Phone: Comment on above: 1 Occurrences starting 07/26/2021 until 08/25/2022 [facility] Immunizations Immunization Date Immunization Notes Care Provider Cristino herndon 11-28-2023 influenza, seasonal, injectable Pulm Wstr Work Phone: [facility] 11-28-2023 zoster vaccine recombinant Pulm Wstr Work Phone: [facility] 11-28-2023 influenza virus vacc ine, unspecified formulation Gavi Ureña Work Phone: [facility] 11-05-2022 influenza, injectabl e, quadrivalent, contains preservative Silvestre Susy QUALITY REVIEW TRAINER.MANAGER [employer]S Work Phone: [facility] Work Phone: 11-05-2022 pneumococcal (PCV20) vaccine, 20 valent (PREVNAR 20) Silvestre Susy QUALITY REVIEW TRAINER.MANAGER [employer]S Work Phone: [facility] Work Phone: 11-05-2022 pneumococcal Conjuga te, unspecified formulation Silvestre Susy QUALITY REVIEW TRAINER.MANAGER [employer] Work Phone: [facility] Work Phone: 11-05-2022 influenza virus vacc ine, unspecified formulation Silvestre Susy QUALITY REVIEW TRAINER.MANAGER [employer] Work Phone: [facility] 12-07-2021 influenza, seasonal, injectable Silvestre Susy QUALITY REVIEW TRAINER.MANAGER [employer] Work Phone: [facility] Work Phone: 11-20-2021 tuberculin skin test ; purified protein derivative solution, intradermal Erica Cannon MD Work Phone: [facility] 11-19-2021 influenza, injectabl e, quadrivalent, preservative free Silvestre Susy QUALITY REVIEW TRAINER.MANAGER [employer] Work Phone: [facility] 11-19-2021 influenza, seasonal, injectable Dr. Erica Cannon Work Phone: [facility] 08-26-2021 tuberculin skin test ; purified protein derivative solution, intradermal Erica Cannon MD Work Phone: [facility] 08-16-2021 tuberculin skin test ; purified protein derivative solution, intradermal Erica Cannon MD Work Phone: [facility] 02-12-2021 Covid (Moderna) Dr. Erica zimmer Work Phone: [facility] 05-25-2020 COVID-19 original vaccine, age 6 yr - 11 yr, monovalent (MODERNA) Silvestre Dentonr QUALITY REVIEW TRAINER.MANAGER [employer] Work Phone: [facility] 05-25-2020 COVID-19 vaccine, fu ll dose (MODERNA); Translations: [Moderna COVID-19 Vaccine] Erica Cannon MD Work Phone: [facility] Work Phone: 05-25-2020 COVID-19 vaccine, unspecified formulation Silvestre Susy QUALITY REVIEW TRAINER.MANAGER [employer] Work Phone: [facility] Work Phone: 04-28-2020 COVID-19 vaccine, booster dose (SANOFI) Silvestre Dentonr QUALITY REVIEW TRAINER.MANAGER [employer] Work Phone: [facility] 04-28-2020 COVID-19 vaccine, fu ll dose (MODERNA); Translations: [Moderna COVID-19 Vaccine] Erica Cannon MD Work Phone: [facility] Work Phone: Comment on above: Result Comment: Give n by [employer] student 04-28-2020 COVID-19 vaccine, unspecified formulation Silvestre Susy SOURAV.MANAGER [employer] Work Phone: [facility] Work Phone: 12-20-2015 influenza, injectabl e, quadrivalent, contains preservative Erica Cannon MD Work Phone: [facility] Work Phone: 12-20-2015 influenza, injectabl e, quadrivalent, preservative free Dr. Erica Cannon MD Work Phone: [facility] 12-20-2015 influenza, seasonal, injectable Dr. Erica Cannon Work Phone: [facility] 01-27-2015 influenza, injectabl e, quadrivalent, contains preservative Erica Cannon MD Work Phone: [facility] 03-17-2009 pneumococcal polysaccharide vaccine, 23 valent Erica Cannon MD Work Phone: [facility] 12-20-2008 influenza virus vacc ine, unspecified formulation Erica Cannon MD Work Phone: [facility] 01-09-2007 influenza virus vacc ine, unspecified formulation Erica Cannon MD Work Phone: [facility] Work Phone: Payers Date Payer Category Payer Self-pay [id number] 2022 Medicaid [id number] 2022 Medicaid [id number] 2021 Unknown [employer] [id number] 2021-Present [phone] [address] [address] [place] [address] EPO [id number] 2021 Unknown [id number] 2018 Unknown MMO MMO [employer] [id number] 2018-2021 [address] [place] [address] [facility] [id number] 1959 Unknown [id number] Unknown [id number] Unknown [id number] Unknown [facility] [id number] Unknown [id number] Unknown [id number] Unknown [id number] Unknown [id number] Unknown [id number] Unknown [id number] Unknown [id number] Social History Date Type Detail Facility Start: 12-08-2014 End: 08-07-2022 Tobacco smoking status NHIS Never smoked tobacco [facility] Start: 04-30-2021 End: 11-02-2024 Alcohol intake Current non-drinker of alcohol (finding) [facility] Start: 12-08-2014 End: 08-07-2022 Tobacco Comment Father smoked in childhood home . ETS exposure in current home. [facility] Start: 1960 Sex Assigned At Not on file [facility] Start: 05-11-2021 End: 07-25-2021 Exposure to SARS-CoV-2 (event) Not sure [facility] Sex Assigned At Sex [facility] Start: 07-31-2021 End: 08-14-2022 Tobacco smoking status NHIS Unknown if ever smoked [facility] Start: 1960 Sex Assigned At Female W [facility] Start: 12-08-2014 End: 08-07-2022 Tobacco use and exposure Smokeless tobacco non-user [facility] Work Phone: Start: 02-14-2022 History SDOH Alcohol Frequency 1 [facility] Start: 02-14-2022 History SDOH Alcohol Std Drinks 0 [facility] Start: 02-14-2022 History SDOH Social Connections Phone 5 [facility] Start: 02-14-2022 History SDOH Social Connections Yazidism 2 [facility] Start: 02-14-2022 History SDOH Social Connections Living 7 [facility] Start: 02-14-2022 End: 07-05-2022 History of Social function [facility] Start: 02-14-2022 End: 07-05-2022 Social connection and isolation panel [facility] Do you belong to any clubs or organizations such as baptist groups, unions, fraternal or athletic groups, or school groups? No [facility] Are you now , , , , never or living with a partner? Never [facility] How often to you hav e a drink containing alcohol? Never [facility] Start: 01-26-[address] inks containing alcohol do you have on a typical day? Patient does not drink [facility] Do you feel stress - tense, restless, nervous, or anxious, or unable to sleep at night because your mind is troubled all the time - these days [OSQ] Only a little [facility] (I/We) worried whechristy er (my/our) food would run out before (I/we) got money to buy more. Never true [facility] Are you now , , , , never or living with a partner? Living with partner [facility] How hard is it for y ou to pay for the very basics like food, housing, medical care, and heating Not very hard [facility] Medical Equipment Procedure Code Equipment Code Equipment Original Text Equipment Identifier Dates [id number] Start: 07-16-2017 End: 09-21-2024 Comment on above: Test blood sugar(s) 4 times daily. Dx: Type 2 DM - Uncontrolled E11.65 Insulin: Yes Test blood sugar(s) 3x daily. Dx: E11.65 Insulin: Yes USE FOUR DAILY DI RECTED with Toujeo and Humalog Test blood sugar(s) four times daily. Dx: Type 2 DM - Controlled E11.9 Insulin: No Test blood sugar(s) 4 times daily. Dx: Type 2 DM - Controlled E11.9 Insulin: No USE 6 DAILY DIREC ARNALDO with Toujeo and Humalog and Byetta Test glucose 4 x per day. Dx: E11.9. Insulin use: no [place] [employer] Uv Absorbing Iol +17.5d [id number] Start: 09-02-2022 Goals Date Patient Goal Desired Activity /State Functional Status Date Assessment Result Facility 08-19-2022 Functional status Bedrest [facility] Work Phone: 11-20-2021 Functional status Bedrest [facility] Work Phone: 08-16-2021 Functional status Activity Abili ty With Assistance of 3 or more [facility] Work Phone: 08-16-2021 Functional status Bedpan [facility] Work Phone: 07-29-2021 Functional Status Assistive Device None [facility] 07-29-2021 Functional Status Standard Safet y ID band on, Allergy Band on, Call device within reach, Bed in low position, Wheels locked, Upper/Half-Length side-rails up, Phone within reach, personal items within reach, Assistive devices within reach, Toileting device within reach, Bedside Cart Locked, Visitor at bedside, Safety level maintained [facility] 01-10-2016 Are you deaf, or do you have serious difficulty hearing No 01/10/2016 7:27 AM Rina Marroquin, QUALITY REVIEW TRAINER.MANAGER [employer] SYSTEMS No [facility] 01-10-2016 Are you blind, or do you have serious difficulty seeing, even when wearing glasses No 01/10/2016 7:27 AM Rina Marroquin APRN.CNP No [facility] 01-10-2016 Do you have serious difficulty walking or climbing stairs Yes 01/10/2016 7:27 AM Rina Marroquin APRN.CNP Yes [facility] 01-10-2016 Do you have difficul ty dressing or bathing No 01/10/2016 7:27 AM Rina Marroquin APRN.CNP No [facility] 01-10-2016 Because of a physica l, mental, or emotional condition, do you have difficulty doing errands alone such as visiting a physician's office or shopping No 01/10/2016 7:27 AM Rina Marroquin APRN.CNP No [facility] Mental Status Date Assessment Result Facility 08-19-2022 Cognitive function Voice/Name [facility] Work Phone: 11-20-2021 Cognitive function Voice/Name [facility] Work Phone: 11-18-2021 Cognitive function Voice/Name [facility] Work Phone: 08-16-2021 Cognitive function Voice/Name [facility] Work Phone: 07-31-2021 Cognitive function Level Of Cons ciousness Awake;Alert;Appropriate [facility] Work Phone: 07-29-2021 Mental Status Orientation Oriented x 4 [facility] 07-29-2021 Mental Status [facility] 01-10-2016 Because of a physica l, mental, or emotional condition, do you have serious difficulty concentrating, remembering, or making decisions No 01/10/2016 7:27 AM Rina Marroquin APRN.CNP No [facility] Clinical Notes 06-30-2014 to 12-03-2024 Telephone Encounter - Treva Malave RN - 11/08/2024 8:35 AM EDTTelephone Encounter - Treva Malave RN - 11/08/2024 8:35 AM EDTTelephone Encounter - Rj Dempsey DO - 11/07/2024 1:02 PM EDT Note Date & Type Note [facility] 12-03-2024 Note [facility] 11-29-2024 Note [facility] 11-25-2024 Note [facility] 11-08-2024 Telephone encounter Note Will notify pt chairside today. [facility] 11-08-2024 Miscellaneous Notes Will notify pt chairside today. Can let her know the 24-hour urine collection showed no abnormal protein in the urine. Please keep echocardiogram as scheduled. If that looks okay then no further workup indicated at this time. Rj Dempsey DO documented in this encounter [facility] 11-07-2024 Telephone encounter Note Can let her know the 24-hour urine collection showed no abnormal protein in the urine. Please keep echocardiogram as scheduled. If that looks okay then no further workup indicated at this time. Rj Dempsey DO [facility] 11-03-2024 Telephone encounter Note Iron and OV scheduled with patient Start email sent [facility] Work Phone: 11-03-2024 Miscellaneous Notes Iron and OV scheduled with patient Start email sent Iron sucrose orders in [place]. Spoke w pt and ECHO is scheduled for 11/11, first available. Please file [place] for Iron. OV also needs scheduled in 3-4 weeks. Sabrina Richardson Patient notified and voices understanding. Please reach out to patient to schedule iron infusions, Echo and OV. Almaz Morales LPN Can let her know the laboratory testing shows that her level of iron is low compared to her degree of kidney dysfunction. Please schedule for 5 doses of iron sucrose. Also, BNP significantly elevated but that may be from pulmonary hypertension. High-sensitivity troponin mildly elevated. EKG was abnormal. She needs a repeat echocardiogram. I need to see her back for an office visit in about 3 to 4 weeks. Rj Dempsey DO documented in this encounter [facility] 11-02-2024 Telephone encounter Note Iron sucrose orders in [place]. [facility] 11-01-2024 Telephone encounter Note Spoke w pt and ECHO is scheduled for 11/11, first available. Please file [place] for Iron. OV also needs scheduled in 3-4 weeks. Sabrina Richardson [facility] 11-01-2024 Telephone encounter Note Patient notified and voices understanding. Please reach out to patient to schedule iron infusions, Echo and OV. Almaz Morales LPN [facility] 11-01-2024 Telephone encounter Note Can let her know the laboratory testing shows that her level of iron is low compared to her degree of kidney dysfunction. Please schedule for 5 doses of iron sucrose. Also, BNP significantly elevated but that may be from pulmonary hypertension. High-sensitivity troponin mildly elevated. EKG was abnormal. She needs a repeat echocardiogram. I need to see her back for an office visit in about 3 to 4 weeks. Rj Dempsey DO [facility] 10-29-2024 History of Presen t illness Narrative Elements copied from Suraj Ureña's QUALITY REVIEW TRAINER.MANAGER [employer] note dated 09/24/2024 have been reviewed and updated where appropriate to reflect the current assessment and medical decision making during today's encounter. HPI: Meggan Arita is a 63 female with PMHx of GERD, HONEY, Asthma, T2DM, St 3 CKD, HLD, HTN. Originally referred for iron deficiency anemia. Long standing anemia with avg Hgb around 9 - 10 dating back to at least 2008. She notes that she has been experiencing worsening fatigue in the last few months. Falling asleep at work mid task prompting her to see her PCP. In wheelchair today. States that she had an episode of general decline in health a few years back. Was unable to wear CPAP mask causing hypoventilation and elevated CO2. She became unresponsive at home. She was admitted to [facility] for over a month and then to a rehab facility for a year to regain function. She received blood transfsion and iron during admission She denies any recent issues with this. No recent illnesses, fevers, chills or NS. Sinus headaches but nothing new. No vision changes. No Shortness of Breath, CP. Using CPAP. She continues to experience significant fatigue. Stomach pains - has been taking bentyl - hasn't really helped. Side to side pain now just lingering on L side. Worse with fried foods. She is following with GI. No recent scopes. Lower scope in [facility] - > 5 years ago. No noticeable bleeding or unintentional bruising. No unintentional weight loss. Hs been on iron pills "a long time" without issues. CHRISTEL in the past. Denies RSL. No PICA or ice cravings. Not on any other supplement. No PPI use. Denies personal or family hx of known blood disorders or cancers. States her mom may have had bleeding disorder but she is unsure. Interval Hx: Patient presents today for follow up and lab review. Continues to feel fatigued. She has had new abd pains and nausea, currently being worked up by her PCP. Reviewed labs do not reflect iron deficiency (ferritin is over 200 and TIBC is low) as such she would not benefit from IV iron. OK to discontinue PO iron as this may be further contributing to her abd pains and nausea. If needed and she does become iron deficient would replace with IV to avoid GI side effects. Discussed low folate. Discussed possible MGUS with patient and spouse as well as plan for further work up for risk stratification. Pt acknowledged. Pt notes neuropathy for years, feels that this is generally stable. No bleeding. No PICA. Hgb has improved now up to 11.3 Presents for ongoing hematologic management. Interim history: Occasionally wakes with cramping of fingers of right hand. Also has occasional hand numbness when first wakes up as well. No symptoms in feet. Pain across abdomen. Several months. Comes and goes. Appetite "comes and goes." No dysphagia. No n/v. Occasional reflux. TUMS prn. Bowels regular. Constipated with iron supplement. No black or bloody stools. Dark when on iron. Started metformin about 3 months ago. Has h/o sleep apnea. Previous admission for hypercapnic respiratory failure. Prolonged reahab. Still using WC when out. Walker at home. Wheezing last few weeks. Nebulizer helps. Frequent cough--mostly at night--CPAP dries her mouth and nasal passages leading to more cough. In the day, can produce clear to yellowish-green sputum. Legs still feel weak. Hasn't found PT that works well for her. History Zuniga's palsy left side about age 29. PAST MEDICAL HISTORY Diagnosis Date Acute gastritis without mention of hemorrhage ALLERGIC RHINITIS NOS 07/15/2007 ANXIETY STATE NOS 12/09/2006 Carpal tunnel syndrome 04/10/2007 Bilateral symptoms with the left worse than the right as of 04-03 CHOLELITH W CHOLECYS NEC 02/07/2005 Lap favio in 03-01 Chronic hepatitis, unspecified (HCC) 03/06/2005 Depression Edema 06/01/2007 Admit 07-08-08 for RLE venous stasis ulcer on Cubicin. Put pt on disability from 08-03-08 to 11-24-08 Esophageal reflux GENERAL OSTEOARTHROSIS 10/29/2006 Headache(784.0) 01/20/2007 [facility] 12-26: consid Sjogren's, CT chest/MRI head/HYUN/KEO/OSMANY/ANCA/SSA/SSB neg Again reinforced the need to start CPAP on 03-04-07: unable to afford as of 04-03 for insurance issues INSOMNIA NOS 07/31/2007 IRON DEFIC ANEMIA NOS 01/20/2007 Colon 03-22-02 ([facility]): no polyps, masses or AVMs Lactose intolerance Low blood potassium 10/20/2014 Low magnesium level 07/08/2016 Morbid obesity (HCC) Obesity, unspecified Obstructive sleep apnea Other dyspnea and respiratory abnormality Primary osteoarthritis of both knees 03/08/2020 severe narrowing of the medial joint space with marginal osteophytes--x-ray knee 2016 SPINAL STENOSIS-LUMBAR 07/09/2007 Stasis edema with ulcer (HCC) 08/02/2013 Type II or unspecified type diabetes mellitus without mention of complication, not stated as uncontrolled 08/05/2007 Unspecified asthma(493.90) Unspecified essential hypertension PAST SURGICAL HISTORY Procedure Laterality Date BIOPSY LIVER NEEDLE PERCUTANEOUS 03/06/05 DELIVERY ONLY 1979 , low cervical DELIVERY ONLY 1980 , low cervical DELIVERY ONLY 1986 , low cervical COLONOSCOPY FLX DX W/COLLJ SPEC WHEN PFRMD 01/30/16 Colonoscopy [facility] outpt EGD TRANSORAL BIOPSY SINGLE/MULTIPLE 07/22/06 ESOPHAGOGASTRODUODENOSCOPY TRANSORAL DIAGNOSTIC 2001 EGD ESOPHAGOGASTRODUODENOSCOPY TRANSORAL DIAGNOSTIC 01/30/16 EGD [facility] outpt IMPLANT MESH OPN HERNIA RPR/DEBRIDEMENT CLOSURE 03/06/05 LAPAROSCOPY SURG RPR INITIAL INGUINAL HERNIA 03/06/05 LAPS SURG CHOLECYSTECTOMY W/CHOLANGIOGRAPHY 03/06/05 LIG/TRNSXJ FLP TUBE ABDL/VAG APPR UNI/BI 1986 Tubal ligation OPTX ANKLE DISLOCATION W/REPAIR/INT/XTRNL FIXJ ORIF Ankle Current Outpatient Medications Medication Sig Dispense Refill mometasone-formoterol (DULERA) 200-5 mcg/actuation inhaler Inhale 1 puff as instructed two times a day. Rinse mouth after use. 1 each 11 cyclobenzaprine (FLEXERIL) 5 mg tablet Take 1-2 tablets by mouth three times a day as needed for muscle spasm. 90 tablet 1 metOLazone (ZAROXOLYN) 5 mg tablet Take 1 tablet by mouth once daily as needed. Take 1/2 hour before lasix. 30 tablet 2 buPROPion XL (WELLBUTRIN XL) 300 mg 24 hr tablet Take 1 tablet by mouth once daily. 30 tablet 11 atorvastatin (LIPITOR) 10 mg tablet Take 1 tablet by mouth once daily. 90 tablet 3 ascorbic acid, vitamin C, (VITAMIN C) 500 mg tablet Take 1 tablet by mouth once daily. 90 tablet 3 montelukast (SINGULAIR) 10 mg tablet Take 1 tablet by mouth daily at bedtime. 30 tablet 11 Zinc Acetate, Oral, 25 mg (zinc) cap Take 1 capsule by mouth once daily. 90 capsule 3 LORazepam (ATIVAN) 1 mg tablet Take 0.5-1 tablets by mouth once daily as needed for anxiety for up to 30 days. 30 tablet 0 nitrofurantoin monohydrate and macrocrystal (MACROBID) 100 mg capsule Take 1 capsule by mouth two times a day. 14 capsule 0 metFORMIN ER (GLUCOPHAGE XR) 500 mg 24 hr tablet Take 1 tablet by mouth once daily. 30 tablet 2 nystatin (MYCOSTATIN) powder Apply 1 application to affected area four times daily. 60 g 11 folic acid 1 mg tablet Take 1 tablet by mouth once daily. 90 tablet 3 tirzepatide, weight loss (ZEPBOUND) 5 mg/0.5 mL pen injector Inject 5 mg subcutaneously one time a week. 2 mL 2 blood sugar diagnostic (BLOOD GLUCOSE TEST) test strip Test blood sugar(s) four times daily. Dx: Type 2 DM - Controlled E11.9 Insulin: No 150 strip 11 Lancets Test blood sugar(s) 4 times daily. Dx: Type 2 DM - Controlled E11.9 Insulin: No 200 each 11 Blood-Glucose Meter 1 device as directed. 1 each 0 olmesartan (BENICAR) 40 mg tablet Take 1 tablet by mouth once daily. 90 tablet 3 furosemide (LASIX) 20 mg tablet TAKE 1-2 TABLETS BY MOUTH ONCE DAILY NEEDED FOR EDEMA/ FLUID RETENTION 60 tablet 10 ferrous sulfate (IRON) 325 mg (65 mg iron) tablet Take 1 tablet by mouth once daily. 90 tablet 1 fluticasone (FLONASE) 50 mcg/actuation nasal spray Use 1 spray in each nostril daily at bedtime. 1 each 3 venlafaxine ER (EFFEXOR XR) 75 mg 24 hr capsule Take 1 capsule by mouth once daily. 90 capsule 3 dicyclomine (BENTYL) 10 mg capsule Take 1 capsule by mouth before meals and at bedtime. 120 capsule 5 potassium chloride ER (KLOR-CON) 20 mEq tablet Take 1 tablet by mouth two times a day. As directed 60 tablet 5 polyethylene glycol 3350 (MIRALAX) 17 gram/dose powder 2 scoop in liquid daily as needed for bowel movement 17 g 11 diclofenac (VOLTAREN) 1 % topical gel Apply 4 g to affected area four times daily. 450 g 2 topiramate (TOPAMAX) 100 mg tablet Take 1 tablet by mouth two times a day. 180 tablet 3 Cholecalciferol, Vitamin D3, 125 mcg (5,000 unit) cap Take 1 capsule by mouth once daily. 90 capsule 3 OXYGEN, HOME THERAPY, 2 L/min by Nasal Cannula route as directed. Using on average 8 hours during the daytime and then at night bled in to PAP machine. WALKER ROLLATOR SEAT WITH 6" WHEELS - RED Diagnosis: Unsteady gait, primary osteoarthritis both knees, decreased mobility 1 Each 0 albuterol (PROVENTIL) 2.5 mg /3 mL (0.083 %) nebulizer solution inhale contents of one vial in nebulizer every 6 hours if needed for wheezing and shortness of breath 300 mL 5 fluticasone (FLONASE) 50 mcg/actuation nasal spray Use 2 Sprays in each nostril once daily as needed. (Patient not taking: Reported on 09/24/2024) [address] (PROTONIX) 40 mg tablet Take 1 tablet by mouth once daily. 90 tablet 3 ipratropium (ATROVENT) 0.02 % nebulizer solution Use 2.5 mL via nebulizer four times a day as needed (wheezing). Use over 5-15minutes. Use in addition to albuterol nebulizer. 250 mL 5 albuterol HFA (PROVENTIL HFA, VENTOLIN HFA) 90 mcg/actuation inhaler Inhale 2 Puffs as instructed every 4 hours as needed for wheezing/shortness of breath. 1 Each 1 Blood Pressure Test Kit-Large (QUICK RESPONSE BP MONITOR) Check blood pressure daily or as needed. I10 Hypertension 1 Each 0 Diaper,Brief, Adult,Disposable (DISPOSABLE BRIEF) Bariatric Briefs - Prevail #10 (thickest brief). 5 per day. 150 Each 1 CPAP AutoPAP 5-12 CM H2O with humidification. Mask (per patient preference) optional chin strap (if indicated) , filters, tubing, humidifier and lifetime supplies. 1 Device 0 Miscellaneous Medical Supply Order: Overnight pulse ox on 4LPM Diagnosis: R09.02 (checking if needs O2 increased at night) 1 Each 0 COMPOUNDED PRESCRIPTION TENS Unit 4 lead. Use as directed. Needs refills for leads 1 per month as needed Dispense 1 with 5 refills. (M48.06) Spinal stenosis, lumbar region, without neurogenic claudication (Patient not taking: Reported on 09/24/2024) 1 Each 0 Nebulizer NEBULIZER FOR HOME USE. DX: (J45.20) Mild intermittent asthma without complication 1 Device 0 No current facility-administered medications for this visit. ALLERGIES Allergen Reactions Ciprofloxacin Diarrhea Nausea and diarrhea Mounjaro [Tirzepati* Diarrhea, Vomiting Hospitalized with dehydration and acute kidney injury. Did tolerate Trulicity Buspar [Buspirone H* Other: See Comments Insomnia Carafate [Sucralfat* tightens up chest unable to swallow Celebrex [Celecoxib] Other: See Comments tachycardia, heart palpitations Cheratussin Itching Codeine GI Upset sick to her stomach but able to tolerate in Tylenol with codeine #3 Doxycycline Intolerance, Vomiting Iodine difficulty breathing, swelling, hives Latex difficulty breathing and swelling Levaquin [Levofloxa* GI Upset Meloxicam Rash pruritic rash within hours of taking med Penicillins Swelling, Shortness of Breath Prednisone Mental Status Change Vicodin [Hydrocodon* Itching swelling FAMILY HISTORY Problem Relation Age of Onset Heart Mother Diabetes Mother other (CVA) Father Diabetes Sister Hypertension Sister Kidney Disease Sister No Known Problems Sister No Known Problems Sister No Known Problems Sister Hypertension Brother Diabetes Maternal Grandmother Social History Tobacco Use Smoking status: Never Smokeless tobacco: Never Tobacco comments: Father smoked in childhood home . ETS exposure in current home. Vaping Use Vaping status: Never Used Substance Use Topics Alcohol use: No Drug use: No Review of Systems: Negative except as noted in HPI reviewed 10/29/2024 PHYSICAL EXAM: Vitals: Blood pressure 180/65, pulse 75, temperature 37.1 C (98.7 F), temperature source Temporal, last menstrual period 02/11/2011, SpO2 95%. Well-appearing and in no acute distress. EYES: Sclerae are anicteric bilaterally. LYMPHATIC: There is no palpable cervical, supraclavicular adenopathy. CARDIOVASCULAR: Rhythm is regular. ABDOMEN: The abdomen is nondistended.. SKIN: No jaundice. NEUROLOGIC: Left facial droop. Anemia - pt with long standing hx of anemia, per records dating back to at least 2008. Avg hgb has been in 9 - 10 range. - during initial visit hgb on 08/16/2024 was 10.5 - we reviewed most common causes of anemia including chronic blood loss, malabsorption, CKD, liver dysfunction, bone marrow disorders. - iron studies reviewed with patient, Ferritin elevated 297.0. No iron deficiency. Appears to be more anemia chronic disease/ inflammation with low TIBC and known ST3 CKD. Not a candidate for LINUS at this time as hgb is over 10. - OK to discontinue PO iron as this may be contributing to abdominal pains and nausea. Would recommend replacement with IV iron if she were to require replacement to avoid GI side effects. - slight macrocytosis - low folate, rx sent for daily replacement - will require further work up for IgM monoclonal gammopathy on electrophoresis. Pt acknowledged -longstanding neuropathy, CKD -No quantifiable M spike protein -K/L ratio WNL Follow up OV with physician in about 2 weeks to review results of further monoclonal gammopathy testing ASSESSMENT/PLAN: (D64.9) Anemia, unspecified type (primary encounter diagnosis) (D47.2) IgM monoclonal gammopathy of uncertain significance Assessment: - IgM lambda by immunofixation. - No persistent sensory neuropathy. - Mild longstanding anemia in the setting of chronic kidney disease and lower serum iron. - No overt symptoms of cardiomyopathy but she is not able to exert herself very much. - Alkaline phosphatase normal. - No chronic diarrhea. - Discussed with her the differential of monoclonal gammopathy of undetermined significance versus lymphoplasmacytic lymphoma versus monoclonal gammopathy of renal significance and the spectrum of amyloidosis. Discussed further workup to rule out cardiac amyloidosis although doubt. Anemia likely from chronic kidney disease. We discussed rechecking iron and if inadequate for degree of renal dysfunction, parenteral iron would be indicated. We also discussed LINUS therapy but she is not indicated at this point. Plan: -MMA -24 hour urine. -Retic count. -Copper -EKG. -Troponin and BNP (may be elevated due to pulmonary hypertension). -Peripheral blood for MYD88 mutation. -Recheck iron (CKD). I spent a total of 45 minutes on the date of the service which included preparing to see the patient, [id number] patient care, completing clinical documentation, obtaining and/or reviewing separately obtained history, performing a medically appropriate examination, counseling and educating the patient/family/caregiver, ordering medications, tests, or procedures, communicating with other HCPs (not separately reported), and communicating results to the patient/family/caregiver. Rj Dempsey DO documented in this encounter [facility] 10-29-2024 Note [facility] 10-29-2024 Note [facility] 10-29-2024 History of Presen t illness Narrative CC: Patient presents with: UTI: Urinary freq,burning and cramping for a week. HPI Recording using [employer] software for draft documentation of the visit was discussed with the patient/authorized telephone services sales representative; all questions welcomed and answered. Patient/authorized telephone services sales representative agreed to proceed The patient is a 63-year-old female with HTN, presenting for evaluation of recurrent urinary tract infections. Recurrent UTI Symptoms: - Onset of current symptoms began on Friday or Friday. - Symptoms include urinary urgency, cramping, back pain, and dysuria. - Describes a sensation of a full bladder without actual fullness. - No associated fever or chills, hematuria, abdominal pain, nausea, vomiting, fatigue. - Reports recurrent UTIs, with episodes in May, June, and the current month. - Last UTI was treated with cephalexin, which reportedly did not alleviate symptoms. - Previous treatment in May included Macrobid. - Denies seeing a urologist; has been managing symptoms through primary care and urgent care visits. - Has not yet pursued a referral to a urogynecologist. Review of Systems See HPI PAST MEDICAL HISTORY Diagnosis Date Acute gastritis without mention of hemorrhage ALLERGIC RHINITIS NOS 07/15/2007 ANXIETY STATE NOS 12/09/2006 Carpal tunnel syndrome 04/10/2007 Bilateral symptoms with the left worse than the right as of 04-03 CHOLELITH W CHOLECYS NEC 02/07/2005 Lap favio in 03-01 Chronic hepatitis, unspecified (HCC) 03/06/2005 Depression Edema 06/01/2007 Admit 07-08-08 for RLE venous stasis ulcer on Cubicin. Put pt on disability from 08-03-08 to 11-24-08 Esophageal reflux GENERAL OSTEOARTHROSIS 10/29/2006 Headache(784.0) 01/20/2007 [facility] 12-26: consid Sjogren's, CT chest/MRI head/HYUN/KEO/OSMANY/ANCA/SSA/SSB neg Again reinforced the need to start CPAP on 03-04-07: unable to afford as of 04-03 for insurance issues INSOMNIA NOS 07/31/2007 IRON DEFIC ANEMIA NOS 01/20/2007 Colon 03-22-02 ([facility]): no polyps, masses or AVMs Lactose intolerance Low blood potassium 10/20/2014 Low magnesium level 07/08/2016 Morbid obesity (HCC) Obesity, unspecified Obstructive sleep apnea Other dyspnea and respiratory abnormality Primary osteoarthritis of both knees 03/08/2020 severe narrowing of the medial joint space with marginal osteophytes--x-ray knee 2016 SPINAL STENOSIS-LUMBAR 07/09/2007 Stasis edema with ulcer (HCC) 08/02/2013 Type II or unspecified type diabetes mellitus without mention of complication, not stated as uncontrolled 08/05/2007 Unspecified asthma(493.90) Unspecified essential hypertension PAST SURGICAL HISTORY Procedure Laterality Date BIOPSY LIVER NEEDLE PERCUTANEOUS 03/06/05 DELIVERY ONLY 1979 , low cervical DELIVERY ONLY 1980 , low cervical DELIVERY ONLY 1986 , low cervical COLONOSCOPY FLX DX W/COLLJ SPEC WHEN PFRMD 01/30/16 Colonoscopy [facility] outpt EGD TRANSORAL BIOPSY SINGLE/MULTIPLE 07/22/06 ESOPHAGOGASTRODUODENOSCOPY TRANSORAL DIAGNOSTIC 2001 EGD ESOPHAGOGASTRODUODENOSCOPY TRANSORAL DIAGNOSTIC 01/30/16 EGD [facility] outpt IMPLANT MESH OPN HERNIA RPR/DEBRIDEMENT CLOSURE 03/06/05 LAPAROSCOPY SURG RPR INITIAL INGUINAL HERNIA 03/06/05 LAPS SURG CHOLECYSTECTOMY W/CHOLANGIOGRAPHY 03/06/05 LIG/TRNSXJ FLP TUBE ABDL/VAG APPR UNI/BI 1986 Tubal ligation OPTX ANKLE DISLOCATION W/REPAIR/INT/XTRNL FIXJ ORIF Ankle ALLERGIES Ciprofloxacin, Mounjaro [Tirzepatide], Buspar [Buspirone Hcl], Carafate [Sucralfate], Celebrex [Celecoxib], Cheratussin, Codeine, Doxycycline, Iodine, Latex, Levaquin [Levofloxacin], Meloxicam, Penicillins, Prednisone, and Vicodin [Hydrocodone-Acetaminophen] MEDICATIONS mometasone-formoterol (DULERA) 200-5 mcg/actuation inhaler Inhale 1 puff as instructed two times a day. Rinse mouth after use. cyclobenzaprine (FLEXERIL) 5 mg tablet Take 1-2 tablets by mouth three times a day as needed for muscle spasm. metOLazone (ZAROXOLYN) 5 mg tablet Take 1 tablet by mouth once daily as needed. Take 1/2 hour before lasix. buPROPion XL (WELLBUTRIN XL) 300 mg 24 hr tablet Take 1 tablet by mouth once daily. atorvastatin (LIPITOR) 10 mg tablet Take 1 tablet by mouth once daily. ascorbic acid, vitamin C, (VITAMIN C) 500 mg tablet Take 1 tablet by mouth once daily. montelukast (SINGULAIR) 10 mg tablet Take 1 tablet by mouth daily at bedtime. Zinc Acetate, Oral, 25 mg (zinc) cap Take 1 capsule by mouth once daily. LORazepam (ATIVAN) 1 mg tablet Take 0.5-1 tablets by mouth once daily as needed for anxiety for up to 30 days. metFORMIN ER (GLUCOPHAGE XR) 500 mg 24 hr tablet Take 1 tablet by mouth once daily. nystatin (MYCOSTATIN) powder Apply 1 application to affected area four times daily. folic acid 1 mg tablet Take 1 tablet by mouth once daily. tirzepatide, weight loss (ZEPBOUND) 5 mg/0.5 mL pen injector Inject 5 mg subcutaneously one time a week. blood sugar diagnostic (BLOOD GLUCOSE TEST) test strip Test blood sugar(s) four times daily. Dx: Type 2 DM - Controlled E11.9 Insulin: No Lancets Test blood sugar(s) 4 times daily. Dx: Type 2 DM - Controlled E11.9 Insulin: No Blood-Glucose Meter 1 device as directed. olmesartan (BENICAR) 40 mg tablet Take 1 tablet by mouth once daily. furosemide (LASIX) 20 mg tablet TAKE 1-2 TABLETS BY MOUTH ONCE DAILY NEEDED FOR EDEMA/ FLUID RETENTION fluticasone (FLONASE) 50 mcg/actuation nasal spray Use 1 spray in each nostril daily at bedtime. venlafaxine ER (EFFEXOR XR) 75 mg 24 hr capsule Take 1 capsule by mouth once daily. dicyclomine (BENTYL) 10 mg capsule Take 1 capsule by mouth before meals and at bedtime. potassium chloride ER (KLOR-CON) 20 mEq tablet Take 1 tablet by mouth two times a day. As directed polyethylene glycol 3350 (MIRALAX) 17 gram/dose powder 2 scoop in liquid daily as needed for bowel movement diclofenac (VOLTAREN) 1 % topical gel Apply 4 g to affected area four times daily. topiramate (TOPAMAX) 100 mg tablet Take 1 tablet by mouth two times a day. Cholecalciferol, Vitamin D3, 125 mcg (5,000 unit) cap Take 1 capsule by mouth once daily. OXYGEN, HOME THERAPY, 2 L/min by Nasal Cannula route as directed. Using on average 8 hours during the daytime and then at night bled in to PAP machine. WALKER ROLLATOR SEAT WITH 6" WHEELS - RED Diagnosis: Unsteady gait, primary osteoarthritis both knees, decreased mobility albuterol (PROVENTIL) 2.5 mg /3 mL (0.083 %) nebulizer solution inhale contents of one vial in nebulizer every 6 hours if needed for wheezing and shortness of breath fluticasone (FLONASE) 50 mcg/actuation nasal spray Use 2 Sprays in each nostril once daily as needed. pantoprazole DR (PROTONIX) 40 mg tablet Take 1 tablet by mouth once daily. ipratropium (ATROVENT) 0.02 % nebulizer solution Use 2.5 mL via nebulizer four times a day as needed (wheezing). Use over 5-15minutes. Use in addition to albuterol nebulizer. albuterol HFA (PROVENTIL HFA, VENTOLIN HFA) 90 mcg/actuation inhaler Inhale 2 Puffs as instructed every 4 hours as needed for wheezing/shortness of breath. Blood Pressure Test Kit-Large (QUICK RESPONSE BP MONITOR) Check blood pressure daily or as needed. I10 Hypertension Diaper,Brief, Adult,Disposable (DISPOSABLE BRIEF) Bariatric Briefs - Prevail #10 (thickest brief). 5 per day. CPAP AutoPAP 5-12 CM H2O with humidification. Mask (per patient preference) optional chin strap (if indicated) , filters, tubing, humidifier and lifetime supplies. Miscellaneous Medical Supply Order: Overnight pulse ox on 4LPM Diagnosis: R09.02 (checking if needs O2 increased at night) COMPOUNDED PRESCRIPTION TENS Unit 4 lead. Use as directed. Needs refills for leads 1 per month as needed Dispense 1 with 5 refills. (M48.06) Spinal stenosis, lumbar region, without neurogenic claudication Nebulizer NEBULIZER FOR HOME USE. DX: (J45.20) Mild intermittent asthma without complication nitrofurantoin monohydrate and macrocrystal (MACROBID) 100 mg capsule Take 1 capsule by mouth two times a day for 7 days. ferrous sulfate (IRON) 325 mg (65 mg iron) tablet Take 1 tablet by mouth once daily. FAMILY HISTORY Problem Relation Age of Onset Heart Mother Diabetes Mother other (CVA) Father Diabetes Sister Hypertension Sister Kidney Disease Sister No Known Problems Sister No Known Problems Sister No Known Problems Sister Hypertension Brother Diabetes Maternal Grandmother SOCIAL HISTORY[1] BP 149/83 Pulse 82 Temp 36.7 C (98.1 F) (Oral) Resp 16 LMP 02/11/2011 SpO2 96% Physical Exam Vitals reviewed. Constitutional: Appearance: Normal appearance. Neurological: Mental Status: She is alert. DATA REVIEWED: Most recent urine testing including May and June Assessment/Plan 1. Dysuria: Patient has recurrent episodes of suprapubic pressure, cramps, and burning on urination since early this week. Urinalysis reveals leukocytes and trace hematuria, suggestive but not definitively diagnostic of infection. Differential diagnoses include structural abnormalities of the lower urinary tract. - Urine culture obtained to clarify etiology. - Prescribed Macrobid again to address possible infection due to history of penicillin allergy and concerns about sulfa interactions. - Instructed patient to discontinue if culture is negative or if no symptomatic improvement is noted. - Advised patient that Friday follow-up on culture results will guide continued management 2. Frequent urinary tract infections: Recurrent pattern noted with infections confirmed in May and June; recent antibiotic therapies included Nitrofurantoin (Macrobid) and Cephalexin with partial or no relief. - Discussed referral to urogynecologist (Dr. Kinsey) for further evaluation of potential structural or prolapsing issues. - Referral faxed and patient advised to call for appointment. Prescription instructions reviewed with patient as applicable. Potential red flag symptoms discussed with the patient. Reviewed appropriate action plan to take if red flag symptoms occur. Patient agreeable to treatment plan. Katya Biggs APRN.NIKKY [1] Social History Tobacco Use Smoking status: Never Smokeless tobacco: Never Tobacco comments: Father smoked in childhood home . ETS exposure in current home. Vaping Use Vaping status: Never Used Substance Use Topics Alcohol use: No Drug use: No documented in this encounter [facility] 10-29-2024 Instructions Katya Biggs APRN.CNP - 10/29/2024 8:40 AM EDT - Begin the prescribed Macrobid (nitrofurantoin) for your urinary symptoms; the prescription has been sent to [facility]--start it as directed. - If your culture returns without evidence of infection and your symptoms persist, you may stop the antibiotic; if you feel better, continue and complete the full course. - We will call you on Friday with your urine culture results. - A referral has been faxed to Dr. Kinsey, a urogynecologist in [place]; please call her office to schedule your evaluation for possible structural causes of your symptoms. Address: [address] [place] [address], [address] [place] [address] documented in this encounter [facility] 10-26-2024 Telephone encounter Note Prescription Refill Information The patient has been identified by name and date of : Yes Caregiver verified no other encounters exist for this prescription request: Yes Caregiver confirmed with patient/requestor that no other refills are due, in the near future, with this provider at this time: Yes The last office visit in the department: 09-21-24 Does the patient have a future office visit with this provider/department: Yes Requested Prescriptions Pending Prescriptions Disp Refills mometasone-formoterol (DULERA) 200-5 mcg/actuation inhaler 1 each 2 Sig: Inhale 1 puff as instructed two times a day. Rinse mouth after use. cyclobenzaprine (FLEXERIL) 5 mg tablet 90 tablet 1 Sig: Take 1-2 tablets by mouth three times a day as needed for muscle spasm. metOLazone (ZAROXOLYN) 5 mg tablet 30 tablet 2 Sig: Take 1 tablet by mouth once daily as needed. Take 1/2 hour before lasix. buPROPion XL (WELLBUTRIN XL) 300 mg 24 hr tablet 30 tablet 3 Sig: Take 1 tablet by mouth once daily. atorvastatin (LIPITOR) 10 mg tablet 90 tablet 1 Sig: Take 1 tablet by mouth once daily. ascorbic acid, vitamin C, (VITAMIN C) 500 mg tablet 90 tablet 1 Sig: Take 1 tablet by mouth once daily. montelukast (SINGULAIR) 10 mg tablet 30 tablet 11 Sig: Take 1 tablet by mouth daily at bedtime. Zinc Acetate, Oral, 25 mg (zinc) cap 90 capsule 1 Sig: Take 1 capsule by mouth once daily. Ora Sylvester October 26, 2024 9:20 AM [facility] 10-26-2024 Miscellaneous Notes Prescription Refill Information The patient has been identified by name and date of : Yes Caregiver verified no other encounters exist for this prescription request: Yes Caregiver confirmed with patient/requestor that no other refills are due, in the near future, with this provider at this time: Yes The last office visit in the department: 09-21-24 Does the patient have a future office visit with this provider/department: Yes Requested Prescriptions Pending Prescriptions Disp Refills mometasone-formoterol (DULERA) 200-5 mcg/actuation inhaler 1 each 2 Sig: Inhale 1 puff as instructed two times a day. Rinse mouth after use. cyclobenzaprine (FLEXERIL) 5 mg tablet 90 tablet 1 Sig: Take 1-2 tablets by mouth three times a day as needed for muscle spasm. metOLazone (ZAROXOLYN) 5 mg tablet 30 tablet 2 Sig: Take 1 tablet by mouth once daily as needed. Take 1/2 hour before lasix. buPROPion XL (WELLBUTRIN XL) 300 mg 24 hr tablet 30 tablet 3 Sig: Take 1 tablet by mouth once daily. atorvastatin (LIPITOR) 10 mg tablet 90 tablet 1 Sig: Take 1 tablet by mouth once daily. ascorbic acid, vitamin C, (VITAMIN C) 500 mg tablet 90 tablet 1 Sig: Take 1 tablet by mouth once daily. montelukast (SINGULAIR) 10 mg tablet 30 tablet 11 Sig: Take 1 tablet by mouth daily at bedtime. Zinc Acetate, Oral, 25 mg (zinc) cap 90 capsule 1 Sig: Take 1 capsule by mouth once daily. Ora Sylvester October 26, 2024 9:20 AM documented in this encounter [facility] 10-08-2024 Telephone encounter Note The following approved medication requests have been transmitted electronically. Requested Prescriptions Signed Prescriptions Disp Refills LORazepam (ATIVAN) 1 mg tablet 30 tablet 0 Sig: Take 0.5-1 tablets by mouth once daily as needed for anxiety for up to 30 days. Authorizing Provider: ERICA CANNON MD [facility] 10-08-2024 Miscellaneous Notes The following approved medication requests have been transmitted electronically. Requested Prescriptions Signed Prescriptions Disp Refills LORazepam (ATIVAN) 1 mg tablet 30 tablet 0 Sig: Take 0.5-1 tablets by mouth once daily as needed for anxiety for up to 30 days. Authorizing Provider: ERICA CANNON MD The patient has been identified by name and date of : Yes Caregiver verified no other encounters exist for this prescription request: Yes Caregiver confirmed with patient/requestor that no other refills are due, in the near future, with this provider at this time: Yes The last office visit in the department: 09/21/2024 Does the patient have a future office visit with this provider/department: Yes 11/16/2024 Requested Prescriptions Pending Prescriptions Disp Refills LORazepam (ATIVAN) 1 mg tablet 30 tablet 0 Sig: Take 0.5-1 tablets by mouth once daily as needed for anxiety for up to 30 days. Treva Cr RN October 08, 2024 1:26 PM documented in this encounter [facility] 10-08-2024 Telephone encounter Note The patient has been identified by name and date of : Yes Caregiver verified no other encounters exist for this prescription request: Yes Caregiver confirmed with patient/requestor that no other refills are due, in the near future, with this provider at this time: Yes The last office visit in the department: 09/21/2024 Does the patient have a future office visit with this provider/department: Yes 11/16/2024 Requested Prescriptions Pending Prescriptions Disp Refills LORazepam (ATIVAN) 1 mg tablet 30 tablet 0 Sig: Take 0.5-1 tablets by mouth once daily as needed for anxiety for up to 30 days. Treva Cr RN October 08, 2024 1:26 PM [facility] 09-30-2024 Note [facility] 09-30-2024 Note [facility] 09-27-2024 Telephone encounter Note Excellent, thank you! I sent in the 5 mg dose of Zepbound because she has been off of it so we will have to step up to get back to the 15 mg dose. [facility] 09-27-2024 Miscellaneous Notes Excellent, thank you! I sent in the 5 mg dose of Zepbound because she has been off of it so we will have to step up to get back to the 15 mg dose. Zepbound appeal was approved for a year and patient notified. Please d/c vicotza off chart and will call pharmacy to run/send Chayito Boyd MA Notified denied from minnie nielsen patient does not have type 1 or 2 DM due to A1C being 4.5. Called minnie at [phone] and spoke to rep who advised denied due to form states patient is not diabetic due to A1C being low. I advised form asks if patient has history which she does therefor checked yes but no longer diabetic since A1C is normal. Submitted appeal over phone Chayito Boyd MA Spoke to patient and supplies being delivered today. Last night used meter/strips from a friend and sugar was 150 Patient aware sending to provider but may not change anything till we can get zepbound approved with [place] Faxed [place] form Chayito Boyd MA Please let Chelsea know that labs show normal pancreas numbers, blood sugar was on the low side on her labs. See if she was able to get her glucometer supplies yesterday and if she has checked her sugars any since getting these. Also, please let her know we are trying to work on an alternative route to getting her the Mounjaro, we are going to try and get this approved under the brand name Zepbound because her sleep apnea might qualify for her insurance to cover it under that (still the same medication just with a different brand name). I'm ok trying to get the Zepbound, I did a new order for this and associated with her chronic conditions, specifically HONEY and severe sleep apnea. Called [facility] pharmacy and Victoza is still on national back order and no idea when will be in stock. Called patient who is aware and requested message sent to Silvestre since discussed in office. Patient is asking if alternative can be sent or if she should just start trulicity? Was trying to see if we can complete appeal for mounjaro and will still attempt but did want to see if provider sent zepbound for sleep apnea if we could try to get approved due to A1C being so low. But since patient has HONEY, sleep study may be able to get approved, please send so we can attempt approval Chayito Boyd MA documented in this encounter [facility] 09-27-2024 Telephone encounter Note Zepbound appeal was approved for a year and patient notified. Please d/c redza off chart and will call pharmacy to run/send Chayito Boyd MA [facility] 09-24-2024 History of Presen t illness Narrative Meggan Arita 1960 Encounter date: 09/24/2024 Cancer Staging No matching staging information was found for the patient. HPI: Meggan Arita is a 63 year old female with PMHx of GERD, HONEY, Asthma, T2DM, St 3 CKD, HLD, HTN. Referral from PCP, Silvestre Jain for iron deficiency anemia. Pt presents today as a new referral for anemia. Per chart review, long standing. Avg Hgb around 9 - 10 dating back to at least 2008. She notes that she has been experiencing worsening fatigue in the last few months. Falling asleep at work mid task prompting her to see her PCP. In wheelchair today. States that she had an episode of general decline in health a few years back. Was unable to wear CPAP mask causing hypoventilation and elevated CO2. She became unresponsive at home. She was admitted to [facility] for over a month and then to a rehab facility for a year to regain function. She received blood transfsion and iron during admission She denies any recent issues with this. No recent illnesses, fevers, chills or NS. Sinus headaches but nothing new. No vision changes. No Shortness of Breath, CP. Using CPAP. She continues to experience significant fatigue. Stomach pains - has been taking bentyl - hasn't really helped. Side to side pain now just lingering on L side. Worse with fried foods. She is following with GI. No recent scopes. Lower scope in [facility] - > 5 years ago. No noticeable bleeding or unintentional bruising. No unintentional weight loss. Hs been on iron pills "a long time" without issues. CHRISTEL in the past. Denies RSL. No PICA or ice cravings. Not on any other supplement. No PPI use. Denies personal or family hx of known blood disorders or cancers. States her mom may have had bleeding disorder but she is unsure. Interval Hx: Patient presents today for follow up and lab review. Continues to feel fatigued. She has had new abd pains and nausea, currently being worked up by her PCP. Reviewed labs do not reflect iron deficiency (ferritin is over 200 and TIBC is low) as such she would not benefit from IV iron. OK to discontinue PO iron as this may be further contributing to her abd pains and nausea. If needed and she does become iron deficient would replace with IV to avoid GI side effects. Discussed low folate. Discussed possible MGUS with patient and spouse as well as plan for further work up for risk stratification. Pt acknowledged. Pt notes neuropathy for years, feels that this is generally stable. No bleeding. No PICA. Hgb has improved now up to 11.3 PAST MEDICAL HISTORY Diagnosis Date Acute gastritis without mention of hemorrhage ALLERGIC RHINITIS NOS 07/15/2007 ANXIETY STATE NOS 12/09/2006 Carpal tunnel syndrome 04/10/2007 Bilateral symptoms with the left worse than the right as of 04-03 CHOLELITH W CHOLECYS NEC 02/07/2005 Lap favio in 03-01 Chronic hepatitis, unspecified (HCC) 03/06/2005 Depression Edema 06/01/2007 Admit 07-08-08 for RLE venous stasis ulcer on Cubicin. Put pt on disability from 08-03-08 to 11-24-08 Esophageal reflux GENERAL OSTEOARTHROSIS 10/29/2006 Headache(784.0) 01/20/2007 [facility] 12-26: consid Sjogren's, CT chest/MRI head/HYUN/KEO/OSMANY/ANCA/SSA/SSB neg Again reinforced the need to start CPAP on 03-04-07: unable to afford as of 04-03 for insurance issues INSOMNIA NOS 07/31/2007 IRON DEFIC ANEMIA NOS 01/20/2007 Colon 03-22-02 ([facility]): no polyps, masses or AVMs Lactose intolerance Low blood potassium 10/20/2014 Low magnesium level 07/08/2016 Morbid obesity (HCC) Obesity, unspecified Obstructive sleep apnea Other dyspnea and respiratory abnormality Primary osteoarthritis of both knees 03/08/2020 severe narrowing of the medial joint space with marginal osteophytes--x-ray knee 2016 SPINAL STENOSIS-LUMBAR 07/09/2007 Stasis edema with ulcer (HCC) 08/02/2013 Type II or unspecified type diabetes mellitus without mention of complication, not stated as uncontrolled 08/05/2007 Unspecified asthma(493.90) Unspecified essential hypertension PAST SURGICAL HISTORY Procedure Laterality Date BIOPSY LIVER NEEDLE PERCUTANEOUS 03/06/05 DELIVERY ONLY 1979 , low cervical DELIVERY ONLY 1980 , low cervical DELIVERY ONLY 1986 , low cervical COLONOSCOPY FLX DX W/COLLJ SPEC WHEN PFRMD 01/30/16 Colonoscopy [facility] outpt EGD TRANSORAL BIOPSY SINGLE/MULTIPLE 07/22/06 ESOPHAGOGASTRODUODENOSCOPY TRANSORAL DIAGNOSTIC 2001 EGD ESOPHAGOGASTRODUODENOSCOPY TRANSORAL DIAGNOSTIC 01/30/16 EGD [facility] outpt IMPLANT MESH OPN HERNIA RPR/DEBRIDEMENT CLOSURE 03/06/05 LAPAROSCOPY SURG RPR INITIAL INGUINAL HERNIA 03/06/05 LAPS SURG CHOLECYSTECTOMY W/CHOLANGIOGRAPHY 03/06/05 LIG/TRNSXJ FLP TUBE ABDL/VAG APPR UNI/BI 1986 Tubal ligation OPTX ANKLE DISLOCATION W/REPAIR/INT/XTRNL FIXJ ORIF Ankle Current Outpatient Medications Medication Sig Dispense Refill tirzepatide, weight loss (ZEPBOUND) 5 mg/0.5 mL pen injector Inject 5 mg subcutaneously one time a week. 2 mL 2 blood sugar diagnostic (BLOOD GLUCOSE TEST) test strip Test blood sugar(s) four times daily. Dx: Type 2 DM - Controlled E11.9 Insulin: No 150 strip 11 Lancets Test blood sugar(s) 4 times daily. Dx: Type 2 DM - Controlled E11.9 Insulin: No 200 each 11 Blood-Glucose Meter 1 device as directed. 1 each 0 oxyCODONE-acetaminophen (PERCOCET) 5-325 mg tablet Take 1 tablet by mouth two times a day as needed for pain for up to 5 days. 10 tablet 0 liraglutide (VICTOZA) 0.6 mg/ 0.1 ml subcutaneous pen injector Inject 1.8 mg subcutaneously once daily. 3 each 2 olmesartan (BENICAR) 40 mg tablet Take 1 tablet by mouth once daily. 90 tablet 3 metOLazone (ZAROXOLYN) 5 mg tablet Take 1 tablet by mouth once daily as needed. Take 1/2 hour before lasix. 30 tablet 2 LORazepam (ATIVAN) 1 mg tablet Take 0.5-1 tablets by mouth once daily as needed for anxiety for up to 30 days. 30 tablet 0 cyclobenzaprine (FLEXERIL) 5 mg tablet Take 1-2 tablets by mouth three times a day as needed for muscle spasm. 90 tablet 1 furosemide (LASIX) 20 mg tablet TAKE 1-2 TABLETS BY MOUTH ONCE DAILY NEEDED FOR EDEMA/ FLUID RETENTION 60 tablet 10 ferrous sulfate (IRON) 325 mg (65 mg iron) tablet Take 1 tablet by mouth once daily. 90 tablet 1 fluticasone (FLONASE) 50 mcg/actuation nasal spray Use 1 spray in each nostril daily at bedtime. 1 each 3 mometasone-formoterol (DULERA) 200-5 mcg/actuation inhaler Inhale 1 puff as instructed two times a day. Rinse mouth after use. 1 each 2 venlafaxine ER (EFFEXOR XR) 75 mg 24 hr capsule Take 1 capsule by mouth once daily. 90 capsule 3 dicyclomine (BENTYL) 10 mg capsule Take 1 capsule by mouth before meals and at bedtime. 120 capsule 5 buPROPion XL (WELLBUTRIN XL) 300 mg 24 hr tablet Take 1 tablet by mouth once daily. 30 tablet 3 metFORMIN ER (GLUCOPHAGE XR) 500 mg 24 hr tablet Take 1 tablet by mouth once daily. 30 tablet 2 potassium chloride ER (KLOR-CON) 20 mEq tablet Take 1 tablet by mouth two times a day. As directed 60 tablet 5 Zinc Acetate, Oral, 25 mg (zinc) cap Take 1 capsule by mouth once daily. 90 capsule 1 ascorbic acid, vitamin C, (VITAMIN C) 500 mg tablet Take 1 tablet by mouth once daily. 90 tablet 1 atorvastatin (LIPITOR) 10 mg tablet Take 1 tablet by mouth once daily. 90 tablet 1 polyethylene glycol 3350 (MIRALAX) 17 gram/dose powder 2 scoop in liquid daily as needed for bowel movement 17 g 11 diclofenac (VOLTAREN) 1 % topical gel Apply 4 g to affected area four times daily. 450 g 2 topiramate (TOPAMAX) 100 mg tablet Take 1 tablet by mouth two times a day. 180 tablet 3 Cholecalciferol, Vitamin D3, 125 mcg (5,000 unit) cap Take 1 capsule by mouth once daily. 90 capsule 3 montelukast (SINGULAIR) 10 mg tablet Take 1 tablet by mouth daily at bedtime. 30 tablet 11 OXYGEN, HOME THERAPY, 2 L/min by Nasal Cannula route as directed. Using on average 8 hours during the daytime and then at night bled in to PAP machine. WALKER ROLLATOR SEAT WITH 6" WHEELS - RED Diagnosis: Unsteady gait, primary osteoarthritis both knees, decreased mobility 1 Each 0 albuterol (PROVENTIL) 2.5 mg /3 mL (0.083 %) nebulizer solution inhale contents of one vial in nebulizer every 6 hours if needed for wheezing and shortness of breath [address] (PROTONIX) 40 mg tablet Take 1 tablet by mouth once daily. 90 tablet 3 ipratropium (ATROVENT) 0.02 % nebulizer solution Use 2.5 mL via nebulizer four times a day as needed (wheezing). Use over 5-15minutes. Use in addition to albuterol nebulizer. 250 mL 5 nystatin (MYCOSTATIN) powder Apply 1 application to affected area four times daily. 60 g 11 albuterol HFA (PROVENTIL HFA, VENTOLIN HFA) 90 mcg/actuation inhaler Inhale 2 Puffs as instructed every 4 hours as needed for wheezing/shortness of breath. 1 Each 1 Blood Pressure Test Kit-Large (QUICK RESPONSE BP MONITOR) Check blood pressure daily or as needed. I10 Hypertension 1 Each 0 Diaper,Brief, Adult,Disposable (DISPOSABLE BRIEF) Bariatric Briefs - Prevail #10 (thickest brief). 5 per day. 150 Each 1 CPAP AutoPAP 5-12 CM H2O with humidification. Mask (per patient preference) optional chin strap (if indicated) , filters, tubing, humidifier and lifetime supplies. 1 Device 0 Miscellaneous Medical Supply Order: Overnight pulse ox on 4LPM Diagnosis: R09.02 (checking if needs O2 increased at night) 1 Each 0 Nebulizer NEBULIZER FOR HOME USE. DX: (J45.20) Mild intermittent asthma without complication 1 Device 0 fluticasone (FLONASE) 50 mcg/actuation nasal spray Use 2 Sprays in each nostril once daily as needed. (Patient not taking: Reported on 09/24/2024) 3 Each 3 COMPOUNDED PRESCRIPTION TENS Unit 4 lead. Use as directed. Needs refills for leads 1 per month as needed Dispense 1 with 5 refills. (M48.06) Spinal stenosis, lumbar region, without neurogenic claudication (Patient not taking: Reported on 09/24/2024) 1 Each 0 No current facility-administered medications for this visit. ALLERGIES Allergen Reactions Ciprofloxacin Diarrhea Nausea and diarrhea Mounjaro [Tirzepati* Diarrhea, Vomiting Hospitalized with dehydration and acute kidney injury. Did tolerate Trulicity Buspar [Buspirone H* Other: See Comments Insomnia Carafate [Sucralfat* tightens up chest unable to swallow Celebrex [Celecoxib] Other: See Comments tachycardia, heart palpitations Cheratussin Itching Codeine GI Upset sick to her stomach but able to tolerate in Tylenol with codeine #3 Doxycycline Intolerance, Vomiting Iodine difficulty breathing, swelling, hives Latex difficulty breathing and swelling Levaquin [Levofloxa* GI Upset Meloxicam Rash pruritic rash within hours of taking med Penicillins Swelling, Shortness of Breath Prednisone Mental Status Change Vicodin [Hydrocodon* Itching swelling FAMILY HISTORY Problem Relation Age of Onset Heart Mother Diabetes Mother other (CVA) Father Diabetes Sister Hypertension Sister Kidney Disease Sister No Known Problems Sister No Known Problems Sister No Known Problems Sister Hypertension Brother Diabetes Maternal Grandmother Social History Tobacco Use Smoking status: Never Smokeless tobacco: Never Tobacco comments: Father smoked in childhood home . ETS exposure in current home. Vaping Use Vaping status: Never Used Substance Use Topics Alcohol use: No Drug use: No Review of Systems: Negative except as noted in HPI reviewed 09/24/2024 Physical Exam: BP 139/84 Pulse 74 Temp (Src) 98.9 (Temporal) Wt 355 lb (161.0kg) SpO2 100% LMP 02/11/2011 General: Age-appropriate well developed. Appears well. HEENT: Normocephalic, no sclera icterus, external ears normal, oral cavity clear. Neck: Supple, no thyroid nodules, no JVD. Chest: Clear bilaterally, no wheezes, not labored. Heart: Normal S1 and S2, no abnormal sounds Abdomen: Soft, nontender, nondistended, no rigidity. Extremities: No cyanosis, clubbing, gross deformities Neurological: Cranial nerves II through XII are intact bilaterally, no focal deficits. Skin: Warm and dry with no rashes or ulcerations. Hematologic: no bruising or petechiae. Psychiatric: Alert and oriented x3. Emotional well-being assessment was performed. Pt denies depression, distress, and or problems with coping or adjustment. I have performed the physical exam today (09/24/2024) and have edited the note to correlate with current findings. Lab Results Component Value Date WBC 7.59 09/21/2024 HB 11.3 (L) 09/21/2024 MCV 97.7 09/21/2024 PLT 291 09/21/2024 Lab Results Component Value Date NA 141 09/21/2024 K 4.3 09/21/2024 CO2 27 09/21/2024 BUN 16 09/21/2024 CREAT 1.10 (H) 09/21/2024 TBILI 0.4 09/21/2024 TPROT 8.2 (H) 09/21/2024 ALB 3.9 09/21/2024 ALKPHOS 104 09/21/2024 ALT 9 09/21/2024 AST 18 09/21/2024 Latest Reference Range & Units 04/23/24 11:02 08/16/24 10:47 Ferritin 14.7 - 205.1 ng/mL 297.0 (H) Iron 41 - 186 ug/dL 63 29 (L) TIBC 232 - 386 ug/dL 224 (L) 202 (L) Transferrin Saturation 15.0 - 57.0 % 28.1 14.4 (L) (H): Data is abnormally high (L): Data is abnormally low Assessment and Plan: Ms. Arita is a pleasant 63 year old woman presenting as a new referral for iron deficiency anemia Anemia - pt with long standing hx of anemia, per records dating back to at least 2008. Avg hgb has been in 9 - 10 range. - during initial visit hgb on 08/16/2024 was 10.5 - we reviewed most common causes of anemia including chronic blood loss, malabsorption, CKD, liver dysfunction, bone marrow disorders. - iron studies reviewed with patient, Ferritin elevated 297.0. No iron deficiency. Appears to be more anemia chronic disease/ inflammation with low TIBC and known ST3 CKD. Not a candidate for LINUS at this time as hgb is over 10. - OK to discontinue PO iron as this may be contributing to abdominal pains and nausea. Would recommend replacement with IV iron if she were to require replacement to avoid GI side effects. - slight macrocytosis - low folate, rx sent for daily replacement - will require further work up for IgM monoclonal gammopathy on electrophoresis. Pt acknowledged -longstanding neuropathy, CKD -No quantifiable M spike protein -K/L ratio WNL Follow up OV with physician in about 2 weeks to review results of further monoclonal gammopathy testing Case reviewed with Dr Dempsey. Gavi Ureña, QUALITY REVIEW TRAINER.MANAGER [employer] I spent a total of 30 minutes on the date of the service which included preparing to see the patient, [id number] patient care, completing clinical documentation, obtaining and/or reviewing separately obtained history, performing a medically appropriate examination, counseling and educating the patient/family/caregiver, and ordering medications, tests, or procedures. Portions of this note including HPI, ROS, impression/plan may have been copied forward as to provide important historical information essential in contributing to medical decision making. Documentation has been reviewed and edited as necessary to support clinical decision making for today's visit and to reflect my own independent evaluation of this patient. documented in this encounter [facility] 09-24-2024 Note [facility] 09-24-2024 Telephone encounter Note Notified denied from minnie nielsen patient does not have type 1 or 2 DM due to A1C being 4.5. Called minnie at [phone] and spoke to rep who advised denied due to form states patient is not diabetic due to A1C being low. I advised form asks if patient has history which she does therefor checked yes but no longer diabetic since A1C is normal. Submitted appeal over phone Chayito Boyd MA [facility] 09-22-2024 Telephone encounter Note Spoke to patient and supplies being delivered today. Last night used meter/strips from a friend and sugar was 150 Patient aware sending to provider but may not change anything till we can get zepbound approved with PA Faxed PA form Chayito Boyd MA [facility] 09-22-2024 Telephone encounter Note Please let Chelsea know that labs show normal pancreas numbers, blood sugar was on the low side on her labs. See if she was able to get her glucometer supplies yesterday and if she has checked her sugars any since getting these. Also, please let her know we are trying to work on an alternative route to getting her the Dania, we are going to try and get this approved under the brand name Zepbound because her sleep apnea might qualify for her insurance to cover it under that (still the same medication just with a different brand name). [facility] 09-22-2024 Telephone encounter Note I'm ok trying to get the Zepbound, I did a new order for this and associated with her chronic conditions, specifically HONEY and severe sleep apnea. [facility] 09-21-2024 Telephone encounter Note Called [facility] and Victoza is still on national back order and no idea when will be in stock. Called patient who is aware and requested message sent to Silvestre since discussed in office. Patient is asking if alternative can be sent or if she should just start trulicity? Was trying to see if we can complete appeal for mounjaro and will still attempt but did want to see if provider sent zepbound for sleep apnea if we could try to get approved due to A1C being so low. But since patient has HONEY, sleep study may be able to get approved, please send so we can attempt approval Chayito Boyd MA [facility] 09-21-2024 Note [facility] 09-21-2024 History of Presen t illness Narrative SUBJECTIVE Meggan Arita is a 63 year old female here today for acute concern. Chief Complaint Patient presents with: Abdominal Pain: [place] into middle back x 2 weeks: nausea/diarrhea, worse after meals HPI Chelsea Arita is a 63-year-old female with a history of DM, presenting with abdominal pain, diarrhea, and nausea. Chelsea reports a firm abdomen with pain localized to the left upper quadrant, radiating to the back. She has not started Victoza due to a delay in obtaining the medication. Chelsea has been off Mounjaro for over a month due to insurance issues and notes that Trulicity was ineffective for her in the past. She has not been monitoring her blood glucose levels and does not have test strips or a functional glucometer. She denies hematochezia and has a history of cholecystectomy. Chelsea experiences frequent diarrhea, with occasional formed stools, and notes that certain foods exacerbate her symptoms. She also reports nausea without emesis. She has been taking iron supplements without noticing a correlation between the supplements and her symptoms. Chelsea has tried Aleve for pain management, which provided minimal relief, and reports that Tylenol is ineffective for her. She has a history of using Percocet for pain management and does not tolerate tramadol due to adverse effects. Chelsea also reports memory issues, such as forgetting tasks and names, which she finds concerning. She denies suspecting early dementia. She experiences high stress levels due to her job and recent life events, including a wedding and financial concerns. Chelsea has difficulty falling asleep before [id number] and attributes this to her body not "shutting down." She sleeps on a hospital bed, which she finds uncomfortable due to a bar in the back, causing her to toss and turn. She wakes up around 2026-2075 and does not feel tired upon waking. Recording using [employer] software for draft documentation of the visit was discussed with the patient/authorized telephone services sales representative; all questions welcomed and answered. Patient/authorized telephone services sales representative agreed to proceed Her medications were reviewed today and her list is now up to date. Medications Current Outpatient Medications Medication Sig olmesartan (BENICAR) 40 mg tablet Take 1 tablet by mouth once daily. metOLazone (ZAROXOLYN) 5 mg tablet Take 1 tablet by mouth once daily as needed. Take 1/2 hour before lasix. LORazepam (ATIVAN) 1 mg tablet Take 0.5-1 tablets by mouth once daily as needed for anxiety for up to 30 days. cyclobenzaprine (FLEXERIL) 5 mg tablet Take 1-2 tablets by mouth three times a day as needed for muscle spasm. furosemide (LASIX) 20 mg tablet TAKE 1-2 TABLETS BY MOUTH ONCE DAILY NEEDED FOR EDEMA/ FLUID RETENTION ferrous sulfate (IRON) 325 mg (65 mg iron) tablet Take 1 tablet by mouth once daily. mometasone-formoterol (DULERA) 200-5 mcg/actuation inhaler Inhale 1 puff as instructed two times a day. Rinse mouth after use. venlafaxine ER (EFFEXOR XR) 75 mg 24 hr capsule Take 1 capsule by mouth once daily. dicyclomine (BENTYL) 10 mg capsule Take 1 capsule by mouth before meals and at bedtime. buPROPion XL (WELLBUTRIN XL) 300 mg 24 hr tablet Take 1 tablet by mouth once daily. metFORMIN ER (GLUCOPHAGE XR) 500 mg 24 hr tablet Take 1 tablet by mouth once daily. potassium chloride ER (KLOR-CON) 20 mEq tablet Take 1 tablet by mouth two times a day. As directed Zinc Acetate, Oral, 25 mg (zinc) cap Take 1 capsule by mouth once daily. ascorbic acid, vitamin C, (VITAMIN C) 500 mg tablet Take 1 tablet by mouth once daily. atorvastatin (LIPITOR) 10 mg tablet Take 1 tablet by mouth once daily. polyethylene glycol 3350 (MIRALAX) 17 gram/dose powder 2 scoop in liquid daily as needed for bowel movement diclofenac (VOLTAREN) 1 % topical gel Apply 4 g to affected area four times daily. topiramate (TOPAMAX) 100 mg tablet Take 1 tablet by mouth two times a day. Cholecalciferol, Vitamin D3, 125 mcg (5,000 unit) cap Take 1 capsule by mouth once daily. montelukast (SINGULAIR) 10 mg tablet Take 1 tablet by mouth daily at bedtime. WALKER ROLLATOR SEAT WITH 6" WHEELS - RED Diagnosis: Unsteady gait, primary osteoarthritis both knees, decreased mobility albuterol (PROVENTIL) 2.5 mg /3 mL (0.083 %) nebulizer solution inhale contents of one vial in nebulizer every 6 hours if needed for wheezing and shortness of breath fluticasone (FLONASE) 50 mcg/actuation nasal spray Use 2 Sprays in each nostril once daily as needed. pantoprazole DR (PROTONIX) 40 mg tablet Take 1 tablet by mouth once daily. ipratropium (ATROVENT) 0.02 % nebulizer solution Use 2.5 mL via nebulizer four times a day as needed (wheezing). Use over 5-15minutes. Use in addition to albuterol nebulizer. nystatin (MYCOSTATIN) powder Apply 1 application to affected area four times daily. albuterol HFA (PROVENTIL HFA, VENTOLIN HFA) 90 mcg/actuation inhaler Inhale 2 Puffs as instructed every 4 hours as needed for wheezing/shortness of breath. Diaper,Brief, Adult,Disposable (DISPOSABLE BRIEF) Bariatric Briefs - Prevail #10 (thickest brief). 5 per day. CPAP AutoPAP 5-12 CM H2O with humidification. Mask (per patient preference) optional chin strap (if indicated) , filters, tubing, humidifier and lifetime supplies. Miscellaneous Medical Supply Order: Overnight pulse ox on 4LPM Diagnosis: R09.02 (checking if needs O2 increased at night) COMPOUNDED PRESCRIPTION TENS Unit 4 lead. Use as directed. Needs refills for leads 1 per month as needed Dispense 1 with 5 refills. (M48.06) Spinal stenosis, lumbar region, without neurogenic claudication Nebulizer NEBULIZER FOR HOME USE. DX: (J45.20) Mild intermittent asthma without complication blood sugar diagnostic (BLOOD GLUCOSE TEST) test strip Test blood sugar(s) four times daily. Dx: Type 2 DM - Controlled E11.9 Insulin: No Lancets Test blood sugar(s) 4 times daily. Dx: Type 2 DM - Controlled E11.9 Insulin: No Blood-Glucose Meter 1 device as directed. oxyCODONE-acetaminophen (PERCOCET) 5-325 mg tablet Take 1 tablet by mouth two times a day as needed for pain for up to 5 days. liraglutide (VICTOZA) 0.6 mg/ 0.1 ml subcutaneous pen injector Inject 1.8 mg subcutaneously once daily. fluticasone (FLONASE) 50 mcg/actuation nasal spray Use 1 spray in each nostril daily at bedtime. OXYGEN, HOME THERAPY, 2 L/min by Nasal Cannula route as directed. Using on average 8 hours during the daytime and then at night bled in to PAP machine. Blood Pressure Test Kit-Large (QUICK RESPONSE BP MONITOR) Check blood pressure daily or as needed. I10 Hypertension No current facility-administered medications for this visit. ALLERGIES Allergen Reactions Ciprofloxacin Diarrhea Nausea and diarrhea Mounjaro [Tirzepati* Diarrhea, Vomiting Hospitalized with dehydration and acute kidney injury. Did tolerate Trulicity Buspar [Buspirone H* Other: See Comments Insomnia Carafate [Sucralfat* tightens up chest unable to swallow Celebrex [Celecoxib] Other: See Comments tachycardia, heart palpitations Cheratussin Itching Codeine GI Upset sick to her stomach but able to tolerate in Tylenol with codeine #3 Doxycycline Intolerance, Vomiting Iodine difficulty breathing, swelling, hives Latex difficulty breathing and swelling Levaquin [Levofloxa* GI Upset Meloxicam Rash pruritic rash within hours of taking med Penicillins Swelling, Shortness of Breath Prednisone Mental Status Change Vicodin [Hydrocodon* Itching swelling ACTIVE PROBLEM LIST Mixed Hyperlipidemia - 08/07/2022 Stage 3 Chronic Kidney Disease (Hcc) - 08/07/2022 Ulcer of Left Lower Extremity, Limited to Breakdown of Skin ([facility]) - 02/20/2022 Comment: Large wound medial thigh; also 2 smaller ones (medial and lateral thigh) Bilateral Leg Edema - 02/20/2022 Comment: Not needing as much Lasix as before; would take metolazone before Lasix as before for prn use Primary Osteoarthritis of Both Knees - 03/08/2020 Comment: severe narrowing of the medial joint space with marginal osteophytes--x-ray knee 2016 Depression - 01/24/2016 Type 2 Diabetes ([facility]) - 09/01/2014 Bmi 60.0-69.9, Adult ([facility]) - 06/30/2014 Pulmonary Hypertension ([facility]) - 04/23/2013 Allergic Rhinitis - 07/15/2007 Spinal Stenosis, Lumbar Region, Without Neurogenic Claudication - 07/09/2007 Comment: not sure where this diagnosis came from since no prior MRI or CT scan with mention of this diagnosis Edema - 06/01/2007 Comment: Admit 07-08-08 for RLE venous stasis ulcer on Cubicin. Put pt on disability from 08-03-08 to 11-24-08 Iron Deficiency Anemia, Unspecified - 01/20/2007 Comment: Colon 03-22-02 ([facility]): no polyps, masses or AVMs Anxiety State - 12/09/2006 Generalized Osteoarthrosis, Unspecified Site - 10/29/2006 Esophageal Reflux - 03/16/2005 Comment: EGD in 06-30: no evidence of esophagitis but there is gastritis (H pylori was negative) Chronic Hepatitis, Unspecified ([facility]) - 03/06/2005 Comment: Liver biopsy w/ cholecystectomy Hypertension Comment: Echo at [place] 01-25: LVH, mild TR, LAE, RVE, PASP 38 (mild), no EF documented per Seese Seese 01-07-03: consider GERD for atyp CP, not cath candidate from obesity, doubt cardiac source ECG 03-30: NSR with PVC, lat T flattening, no ischemia/injury (ECG NL in 10-27 at [place]) Rec for Dobut Echo in 05-28 per Seese ([facility]) prior to rec gastric bypass (Study 07-21-03 was NL) Admit for BRYAN in 09-29: rec Cardizem and Lopressor after negative enzymes, outpt stress Dobut Echo 11-18-05: 80% APMHR, No RWMA, NL but limited by not achieving APMHR LDL 96, HDL 45, TG 45 in 01-01 Restarted K supplements for K of 3.3 in 08-01 as pt on Lasix Order placed for Holter in 04-04 after ED visit for palpitations Metoprolol to 100 mg bid in 04-04 for BP and palpitations Holter 04-04: no AF, VT but pt with 7 sec pause Metop changed to Hydralazine and HCTZ as inpt in 04-04 with the Holter findings Carotids at [place] in 04-04: 1-15% stenosis bilaterally Obstructive Sleep Apnea Comment: Scheduled sleep study in 11-3012-08-06: sleep time 60 minutes/294 minutes studied, AHI 48, low sat 79%-rec auto-titrating CPAP Trial of an auto-titrating CPAP in 11-30: unable to sleep long enough for diagnosis Phoned pt at work 12-24-06 to call about scheduling auto Asthma ([facility]) Social History Tobacco Use Smoking status: Never Smokeless tobacco: Never Tobacco comments: Father smoked in childhood home . ETS exposure in current home. Vaping Use Vaping status: Never Used Substance Use Topics Alcohol use: No Drug use: No Review of Systems Constitutional: Positive for appetite change. Respiratory: Negative. Cardiovascular: Negative. Gastrointestinal: Positive for abdominal pain, diarrhea and nausea. Negative for anal bleeding, blood in stool, constipation, rectal pain and vomiting. OBJECTIVE BP 142/80 Pulse 72 Resp 14 Wt 349 lb 10.4 oz (158.6kg) SpO2 99% LMP 02/11/2011 Physical Exam Vitals and nursing note reviewed. Constitutional: General: She is awake. She is not in acute distress. Appearance: Normal appearance. She is well-developed and well-groomed. She is obese. She is not ill-appearing, toxic-appearing or diaphoretic. HENT: Head: Normocephalic. Right Ear: External ear normal. Left Ear: External ear normal. Nose: Nose normal. Eyes: General: Vision grossly intact. Conjunctiva/sclera: Conjunctivae normal. Pupils: Pupils are equal, round, and reactive to light. Neck: Vascular: No JVD. Trachea: Trachea normal. Pulmonary: Effort: Pulmonary effort is normal. No accessory muscle usage, prolonged expiration or respiratory distress. Abdominal: Tenderness: There is abdominal tenderness in the left upper quadrant. There is no guarding or rebound. Musculoskeletal: Cervical back: Neck supple. Skin: General: Skin is warm and dry. Capillary Refill: Capillary refill takes less than 2 seconds. Neurological: General: No focal deficit present. Mental Status: She is alert and oriented to person, place, and time. Mental status is at baseline. Psychiatric: Attention and Perception: Attention and perception normal. Mood and Affect: Mood and affect normal. Speech: Speech normal. Behavior: Behavior normal. Behavior is cooperative. Thought Content: Thought content normal. Cognition and Memory: Cognition and memory normal. Judgment: Judgment normal. ASSESSMENT/PLAN: 1. Abdominal pain, left upper quadrant (R10.12) Left sided abdominal pain (R10.9) Abdominal pain localized to the left upper quadrant, with associated back pain. No gallbladder. Differential includes pancreatic etiology due to recent discontinuation of Mounjaro, potentially leading to elevated blood glucose levels and pancreatic stress. - Ordered blood work to assess blood glucose, amylase, and lipase levels. - Prescribed Percocet 5/325 mg, to be taken twice daily as needed for 5 days for pain management. - Will follow up with blood work results and adjust treatment as necessary. 2. Diarrhea, unspecified type (R19.7) Frequent loose stools, with occasional firm bowel movements. No blood in stool as per recent stool test results. - Monitor bowel movements; maintain hydration. - Advised dietary modifications to include more proteins and fewer carbohydrates and sweets. 3. Nausea without vomiting (R11.0) Persistent nausea without emesis. No correlation with iron pill intake. - Monitor symptoms; will reassess based on blood work results. 4. Type 2 diabetes (HCC) (E11.9) Previously well-controlled on Mounjaro, which was discontinued over a month ago due to insurance issues. Victoza not yet started. Concerns about elevated blood glucose levels contributing to current symptoms. - Ordered blood glucose monitoring supplies, including a glucometer and test strips. - Advised patient to start checking blood glucose levels once daily. - If blood glucose levels are high, instructed patient to take a dose of Trulicity if available at home. - Discussed potential initiation of oral hypoglycemic agents such as Farxiga, Jardiance, Januvia, or glimepiride if necessary. - Will follow up with blood work results and adjust treatment as necessary. 5. Concern about memory (Z71.1) Patient reports forgetfulness, possibly related to high stress levels and poor sleep quality. B12 levels are normal. - Ordered a memory test (Bach test) to be completed via [employer]. - Will review test results and consider referral to geriatrics for further evaluation if necessary. PDMP website checked and validated. All prescriptions have been APPROPRIATELY filled. No suspicious activity was identified. 09/21/2024 by Silvestre Jain APRN.CNP Portions of this note have been entered by ancillary staff. I have reviewed and when necessary edited, so that they are an adequate record of my encounter with this patient Please note that parts of this document were created using voice recognition software and therefore may contain grammatical errors. Patient verbalizes understanding of instructions from today's visit and in agreement with treatment plan. Questions answered. Agrees to call the office if questions, concerns of issues with acute symptoms not improving or if they worsen. See diagnoses and orders for additional plan(s). Allergies and medications were reviewed, list was updated, and refills given if needed. Past medical, surgical, social, and family history reviewed and updated as appropriate. Encouraged proper diet & exercise as well as compliance with taking medications. Age-appropriate health preventative measures were discussed. Return if symptoms worsen or fail to improve, for Keep next scheduled appointment.. Silvestre Jain APRN-NIKKY documented in this encounter [facility] 09-20-2024 Telephone encounter Note Pt reports she is having upper abdominal pain since last Thurs. Mostly center but also goes across upper abdomen. Severe sometimes, sometimes moderate- able to work and do ADL's. Came & went at first, constant last 2 days. Last BM yesterday. Protocol recommends see provider in 24 hours. Scheduled appt. Reason for Disposition [1] MODERATE pain (e.g., interferes with normal activities) AND [2] comes and goes (cramps) AND [3] present > 24 hours (Exception: Pain with Vomiting or Diarrhea - see that Guideline.) Answer Assessment - Initial Assessment Questions 1. LOCATION: Pt reports mostly upper abdomen hurts sometimes lower abdomen. In the middle mostly but goes across to left and right. Upper abdomen sticks out more than normal today. 2. RADIATION: Radiates to back 3. ONSET: Since last 4. SUDDEN: Had diarrhea for first 2 days, all day- off and on. Pt thought from eating too much oatmeal and shredded wheat. 5. PATTERN: Was coming and going but now it is constant for couple days. 6. SEVERITY: Sometimes severe, sometimes moderate. Able to do routine work and adl's. 7. RECURRENT SYMPTOM: Maybe a long time ago 8. AGGRAVATING FACTORS: Food and stress aggravates it 9. CARDIAC SYMPTOMS:No CP, a little Shortness of Breath, no sweating, nausea once in a while. 10. OTHER SYMPTOMS: Back upper and lower pain, no diarrhea now, no fever, no urinary pain, no vomiting. 11. : No. Protocols used: Abdominal Pain - [id number] [facility] 09-20-2024 Miscellaneous Notes Pt reports she is having upper abdominal pain since last . Mostly center but also goes across upper abdomen. Severe sometimes, sometimes moderate- able to work and do ADL's. Came & went at first, constant last 2 days. Last BM yesterday. Protocol recommends see provider in 24 hours. Scheduled appt. Reason for Disposition [1] MODERATE pain (e.g., interferes with normal activities) AND [2] comes and goes (cramps) AND [3] present > 24 hours (Exception: Pain with Vomiting or Diarrhea - see that Guideline.) Answer Assessment - Initial Assessment Questions 1. LOCATION: Pt reports mostly upper abdomen hurts sometimes lower abdomen. In the middle mostly but goes across to left and right. Upper abdomen sticks out more than normal today. 2. RADIATION: Radiates to back 3. ONSET: Since last 4. SUDDEN: Had diarrhea for first 2 days, all day- off and on. Pt thought from eating too much oatmeal and shredded wheat. 5. PATTERN: Was coming and going but now it is constant for couple days. 6. SEVERITY: Sometimes severe, sometimes moderate. Able to do routine work and adl's. 7. RECURRENT SYMPTOM: Maybe a long time ago 8. AGGRAVATING FACTORS: Food and stress aggravates it 9. CARDIAC SYMPTOMS:No CP, a little Shortness of Breath, no sweating, nausea once in a while. 10. OTHER SYMPTOMS: Back upper and lower pain, no diarrhea now, no fever, no urinary pain, no vomiting. 11. : No. Protocols used: Abdominal Pain - [id number] documented in this encounter [facility] 09-13-2024 Telephone encounter Note Faxed order as requested Chayito Boyd MA [facility] 09-13-2024 Miscellaneous Notes Faxed order as requested Chayito Boyd MA Order signed, please send. Carlton with [facility] calls to let provider know that they are needing a new order for patient to have oximetry with ambulation completed. Noted patient was not able to complete testing 12/18/2023 and is less ambulatory now. Offered OV notes for supporting documentation. Carlton reports that will not work they have to have testing on file. Carlton requests order to be faxed to [phone] and then they will figure out what they need to do from there as to whether or not she will qualify. Pended. Maria Dolores Ivan RN documented in this encounter [facility] 09-13-2024 Telephone encounter Note Order signed, please send. [facility] 09-09-2024 Telephone encounter Note Spoke with Ruchi with [employer] and she states Victoza is covered if brand name is dispensed. Called and spoke with Todd at [facility] pharmacy to discuss pt's Trulicity and Victoza. Sabre states they filled the Trulicity before they got the prescription on the Victoza. [facility]re notified to cancel the Trulicity. Discussed the Victoza and [facility] states they will fill with brand name, which is already ordered, and pt has a $0 co-pay. Atttempted to call pt with no answer. Left detailed msg with the above information. [facility] 09-09-2024 Miscellaneous Notes Spoke with Ruchi with [employer] and she states Victoza is covered if brand name is dispensed. Called and spoke with Todd at [facility] pharmacy to discuss pt's Trulicity and Victoza. [facility]re states they filled the Trulicity before they got the prescription on the Victoza. Todd notified to cancel the Trulicity. Discussed the Victoza and [facility]re states they will fill with brand name, which is already ordered, and pt has a $0 co-pay. Atttempted to call pt with no answer. Left detailed msg with the above information. Late entry: Pt called in on 09/08. She is confused about her Trulicity and Victoza. Pt saw Silvestre Jain on 09/07 and Silvestre changed her Trulicity to Victoza. Pt states [facility] delivered Trulicity to her home. She is wondering why. It appears, [facility] did not get the discontinuation of the Trulicity electronically. Question also on whether Victoza is covered or not. Pt is going to call and confirm with her insurance in the morning. Nurse will follow up with PA staff and [facility] in the morning. PA was submitted for Victoza and not approved due to patient A1C is 4.5 Note from payer: Coverage is provided when the member meets all the followin. Member has had an inadequate clinical response (the inability to reach A1C goal (less than 7%) after at least 120 days of current regimen, with use of two or more drugs concomitantly per ADA ([place] [employer]) guidelines; AND 2. Member has documented adherence and appropriate dose escalation (must achieve maximum recommended dose or document that maximum recommended dose is not tolerated or is clinically inappropriate); AND 3. Member has a history of at least 120 days of therapy with THREE preferred medications in this UPDL category and indicated for diagnosis, if available. ONE of the 120 day trials must be with a preferred drug in the same drug class, Victoza (18 MG/3 ML PEN) (Brand name is preferred by the plan) or Trulicity (0.75 mg, 1.5 mg, 3 mg, and 4.5 mg). Other trials may include but are not limited to: Farxiga 5 and 10 mg (Brand name is preferred by the plan), Glimepiride 1,2,4 mg, Glipizide, Januvia, Jardiance 10 and 25 mg and Metformin IR 500 mg, 850 mg, 1000 mg and ER (generics of Glucophage). The [facility] Policy for Medical Necessity as posted on the [facility] website and [place] Unified Preferred Drug List criteria were reviewed and per [place] Administrative Code Rule 5160-1-01 (C) and (B), a medically necessary service must include: generally accepted standards of medical practice, be clinically appropriate in administration, treatment and outcome and be the lowest cost alternative to effectively treat the condition. Please contact your provider to assist you with other treatment options that might be covered under your benefit package, or other services that might be available through the community. Chayito Boyd MA documented in this encounter [facility] 09-08-2024 Telephone encounter Note Late entry: Pt called in on 09/08. She is confused about her Trulicity and Victoza. Pt saw Silvestre Jain on 09/07 and Silvestre changed her Trulicity to Victoza. Pt states [facility] delivered Trulicity to her home. She is wondering why. It appears, [facility] did not get the discontinuation of the Trulicity electronically. Question also on whether Victoza is covered or not. Pt is going to call and confirm with her insurance in the morning. Nurse will follow up with PA staff and [facility] in the morning. [facility] 09-08-2024 Telephone encounter Note Carlton with [facility] calls to let provider know that they are needing a new order for patient to have oximetry with ambulation completed. Noted patient was not able to complete testing 12/18/2023 and is less ambulatory now. Offered OV notes for supporting documentation. Carlton reports that will not work they have to have testing on file. Carlton requests order to be faxed to [phone] and then they will figure out what they need to do from there as to whether or not she will qualify. Pended. Maria Dolores Ivan RN [facility] 09-07-2024 Telephone encounter Note PA was submitted for Victoza and not approved due to patient A1C is 4.5 Note from payer: Coverage is provided when the member meets all the followin. Member has had an inadequate clinical response (the inability to reach A1C goal (less than 7%) after at least 120 days of current regimen, with use of two or more drugs concomitantly per ADA ([place] Diabetes Association) guidelines; AND 2. Member has documented adherence and appropriate dose escalation (must achieve maximum recommended dose or document that maximum recommended dose is not tolerated or is clinically inappropriate); AND 3. Member has a history of at least 120 days of therapy with THREE preferred medications in this UPDL category and indicated for diagnosis, if available. ONE of the 120 day trials must be with a preferred drug in the same drug class, Victoza (18 MG/3 ML PEN) (Brand name is preferred by the plan) or Trulicity (0.75 mg, 1.5 mg, 3 mg, and 4.5 mg). Other trials may include but are not limited to: Farxiga 5 and 10 mg (Brand name is preferred by the plan), Glimepiride 1,2,4 mg, Glipizide, Januvia, Jardiance 10 and 25 mg and Metformin IR 500 mg, 850 mg, 1000 mg and ER (generics of Glucophage). The [facility] Policy for Medical Necessity as posted on the [facility] website and [facility] Preferred Drug List criteria were reviewed and per [place] Administrative Code Rule 5160-1-01 (C) and (B), a medically necessary service must include: generally accepted standards of medical practice, be clinically appropriate in administration, treatment and outcome and be the lowest cost alternative to effectively treat the condition. Please contact your provider to assist you with other treatment options that might be covered under your benefit package, or other services that might be available through the community. Chayito Boyd MA [facility] 09-07-2024 Note [facility] 09-07-2024 History of Presen t illness Narrative SUBJECTIVE Meggan Arita is a 63 year old female here today for a check up on her medical problems. Chief Complaint Patient presents with: Follow Up: Discuss medication HPI Chelsea Arita is a 63-year-old female with a history of T2DM, HTN, and anemia, presenting for follow-up on diabetes management and concerns about blood pressure control and mobility issues. Chelsea has been on Mounjaro for approximately 1.5 years for diabetes management, but her insurance has recently denied coverage due to her A1c being below a certain level. She expresses frustration with this decision and is concerned about the potential for her A1c to increase without the medication. She has previously tried Trulicity but reports that it was not effective for her. She also reports difficulty with mobility and balance, stating, I should be walking by now. I can't do my balance now." She is currently using a wheelchair and expresses a desire to improve her mobility to reduce the strain on her , who has a heart condition. She has previously done in-home physical therapy but is considering outpatient physical therapy for better access to equipment and facilities. Chelsea also reports concerns about her blood pressure, stating that her current medication, losartan, is not working as well as it used to. She is also taking Lasix for fluid retention but notes that it is not as effective as it used to be. She has recently had blood work done for anemia and is awaiting results. Recording using [employer] software for draft documentation of the visit was discussed with the patient/authorized telephone services sales representative; all questions welcomed and answered. Patient/authorized telephone services sales representative agreed to proceed Her medications were reviewed today and her list is now up to date. Medications Current Outpatient Medications Medication Sig LORazepam (ATIVAN) 1 mg tablet Take 0.5-1 tablets by mouth once daily as needed for anxiety for up to 30 days. cyclobenzaprine (FLEXERIL) 5 mg tablet Take 1-2 tablets by mouth three times a day as needed for muscle spasm. furosemide (LASIX) 20 mg tablet TAKE 1-2 TABLETS BY MOUTH ONCE DAILY NEEDED FOR EDEMA/ FLUID RETENTION ferrous sulfate (IRON) 325 mg (65 mg iron) tablet Take 1 tablet by mouth once daily. fluticasone (FLONASE) 50 mcg/actuation nasal spray Use 1 spray in each nostril daily at bedtime. mometasone-formoterol (DULERA) 200-5 mcg/actuation inhaler Inhale 1 puff as instructed two times a day. Rinse mouth after use. venlafaxine ER (EFFEXOR XR) 75 mg 24 hr capsule Take 1 capsule by mouth once daily. dicyclomine (BENTYL) 10 mg capsule Take 1 capsule by mouth before meals and at bedtime. buPROPion XL (WELLBUTRIN XL) 300 mg 24 hr tablet Take 1 tablet by mouth once daily. metFORMIN ER (GLUCOPHAGE XR) 500 mg 24 hr tablet Take 1 tablet by mouth once daily. potassium chloride ER (KLOR-CON) 20 mEq tablet Take 1 tablet by mouth two times a day. As directed Zinc Acetate, Oral, 25 mg (zinc) cap Take 1 capsule by mouth once daily. ascorbic acid, vitamin C, (VITAMIN C) 500 mg tablet Take 1 tablet by mouth once daily. atorvastatin (LIPITOR) 10 mg tablet Take 1 tablet by mouth once daily. polyethylene glycol 3350 (MIRALAX) 17 gram/dose powder 2 scoop in liquid daily as needed for bowel movement diclofenac (VOLTAREN) 1 % topical gel Apply 4 g to affected area four times daily. topiramate (TOPAMAX) 100 mg tablet Take 1 tablet by mouth two times a day. Cholecalciferol, Vitamin D3, 125 mcg (5,000 unit) cap Take 1 capsule by mouth once daily. montelukast (SINGULAIR) 10 mg tablet Take 1 tablet by mouth daily at bedtime. OXYGEN, HOME THERAPY, 2 L/min by Nasal Cannula route as directed. Using on average 8 hours during the daytime and then at night bled in to PAP machine. WALKER ROLLATOR SEAT WITH 6" WHEELS - RED Diagnosis: Unsteady gait, primary osteoarthritis both knees, decreased mobility albuterol (PROVENTIL) 2.5 mg /3 mL (0.083 %) nebulizer solution inhale contents of one vial in nebulizer every 6 hours if needed for wheezing and shortness of breath fluticasone (FLONASE) 50 mcg/actuation nasal spray Use 2 Sprays in each nostril once daily as needed. pantoprazole DR (PROTONIX) 40 mg tablet Take 1 tablet by mouth once daily. ipratropium (ATROVENT) 0.02 % nebulizer solution Use 2.5 mL via nebulizer four times a day as needed (wheezing). Use over 5-15minutes. Use in addition to albuterol nebulizer. nystatin (MYCOSTATIN) powder Apply 1 application to affected area four times daily. Lancets Test blood sugar(s) 4 times daily. Dx: Type 2 DM - Controlled E11.9 Insulin: No albuterol HFA (PROVENTIL HFA, VENTOLIN HFA) 90 mcg/actuation inhaler Inhale 2 Puffs as instructed every 4 hours as needed for wheezing/shortness of breath. blood sugar diagnostic (BLOOD GLUCOSE TEST) test strip Test blood sugar(s) 4 times daily. Dx: Type 2 DM - Controlled E11. Insulin: No blood sugar diagnostic (RELION PRIME TEST STRIPS) test strip Test glucose 4 x per day. Dx: E11.9. Insulin use: no Blood Pressure Test Kit-Large (QUICK RESPONSE BP MONITOR) Check blood pressure daily or as needed. I10 Hypertension Diaper,Brief, Adult,Disposable (DISPOSABLE BRIEF) Bariatric Briefs - Prevail #10 (thickest brief). 5 per day. blood sugar diagnostic (BLOOD GLUCOSE TEST) test strip Test blood sugar(s) four times daily. Dx: Type 2 DM - Controlled E11. Insulin: No CPAP AutoPAP 5-12 CM H2O with humidification. Mask (per patient preference) optional chin strap (if indicated) , filters, tubing, humidifier and lifetime supplies. Miscellaneous Medical Supply Order: Overnight pulse ox on 4LPM Diagnosis: R09.02 (checking if needs O2 increased at night) Blood-Glucose Meter (FREESTYLE FREEDOM LITE) monitoring kit 1 Each as needed. COMPOUNDED PRESCRIPTION TENS Unit 4 lead. Use as directed. Needs refills for leads 1 per month as needed Dispense 1 with 5 refills. (M48.06) Spinal stenosis, lumbar region, without neurogenic claudication Nebulizer NEBULIZER FOR HOME USE. DX: (J45.20) Mild intermittent asthma without complication liraglutide (VICTOZA) 0.6 mg/ 0.1 ml subcutaneous pen injector Inject 1.8 mg subcutaneously once daily. olmesartan (BENICAR) 40 mg tablet Take 1 tablet by mouth once daily. metOLazone (ZAROXOLYN) 5 mg tablet Take 1 tablet by mouth once daily as needed. Take 1/2 hour before lasix. No current facility-administered medications for this visit. ALLERGIES Allergen Reactions Ciprofloxacin Diarrhea Nausea and diarrhea Mounjaro [Tirzepati* Diarrhea, Vomiting Hospitalized with dehydration and acute kidney injury. Did tolerate Trulicity Buspar [Buspirone H* Other: See Comments Insomnia Carafate [Sucralfat* tightens up chest unable to swallow Celebrex [Celecoxib] Other: See Comments tachycardia, heart palpitations Cheratussin Itching Codeine GI Upset sick to her stomach but able to tolerate in Tylenol with codeine #3 Doxycycline Intolerance, Vomiting Iodine difficulty breathing, swelling, hives Latex difficulty breathing and swelling Levaquin [Levofloxa* GI Upset Meloxicam Rash pruritic rash within hours of taking med Penicillins Swelling, Shortness of Breath Prednisone Mental Status Change Vicodin [Hydrocodon* Itching swelling ACTIVE PROBLEM LIST Mixed Hyperlipidemia - 08/07/2022 Stage 3 Chronic Kidney Disease (Hcc) - 08/07/2022 Ulcer of Left Lower Extremity, Limited to Breakdown of Skin ([facility]) - 02/20/2022 Comment: Large wound medial thigh; also 2 smaller ones (medial and lateral thigh) Bilateral Leg Edema - 02/20/2022 Comment: Not needing as much Lasix as before; would take metolazone before Lasix as before for prn use Primary Osteoarthritis of Both Knees - 03/08/2020 Comment: severe narrowing of the medial joint space with marginal osteophytes--x-ray knee 2016 Depression - 01/24/2016 Type 2 Diabetes ([facility]) - 09/01/2014 Bmi 60.0-69.9, Adult ([facility]) - 06/30/2014 Pulmonary Hypertension ([facility]) - 04/23/2013 Allergic Rhinitis - 07/15/2007 Spinal Stenosis, Lumbar Region, Without Neurogenic Claudication - 07/09/2007 Comment: not sure where this diagnosis came from since no prior MRI or CT scan with mention of this diagnosis Edema - 06/01/2007 Comment: Admit 07-08-08 for RLE venous stasis ulcer on Cubicin. Put pt on disability from 08-03-08 to 11-24-08 Iron Deficiency Anemia, Unspecified - 01/20/2007 Comment: Colon 03-22-02 ([facility]): no polyps, masses or AVMs Anxiety State - 12/09/2006 Generalized Osteoarthrosis, Unspecified Site - 10/29/2006 Esophageal Reflux - 03/16/2005 Comment: EGD in 06-30: no evidence of esophagitis but there is gastritis (H pylori was negative) Chronic Hepatitis, Unspecified ([facility]) - 03/06/2005 Comment: Liver biopsy w/ cholecystectomy Hypertension Comment: Echo at [place] 01-25: LVH, mild TR, LAE, RVE, PASP 38 (mild), no EF documented per [facility] Se[facility] 01-07-03: consider GERD for atyp CP, not cath candidate from obesity, doubt cardiac source ECG 03-30: NSR with PVC, lat T flattening, no ischemia/injury (ECG NL in 10-27 at [place]) Rec for Dobut Echo in 05-28 per [facility] ([place]) prior to rec gastric bypass (Study 07-21-03 was NL) Admit for BRYAN in 09-29: rec Cardizem and Lopressor after negative enzymes, outpt stress Dobut Echo 11-18-05: 80% APMHR, No RWMA, NL but limited by not achieving APMHR LDL 96, HDL 45, TG 45 in 01-01 Restarted K supplements for K of 3.3 in 08-01 as pt on Lasix Order placed for Holter in 04-04 after ED visit for palpitations Metoprolol to 100 mg bid in 04-04 for BP and palpitations Holter 04-04: no AF, VT but pt with 7 sec pause Metop changed to Hydralazine and HCTZ as inpt in 04-04 with the Holter findings Carotids at [place] in 04-04: 1-15% stenosis bilaterally Obstructive Sleep Apnea Comment: Scheduled sleep study in 11-3012-08-06: sleep time 60 minutes/294 minutes studied, AHI 48, low sat 79%-rec auto-titrating CPAP Trial of an auto-titrating CPAP in 11-30: unable to sleep long enough for diagnosis Phoned pt at work 12-24-06 to call about scheduling auto Asthma ([facility]) Social History Tobacco Use Smoking status: Never Smokeless tobacco: Never Tobacco comments: Father smoked in childhood home . ETS exposure in current home. Vaping Use Vaping status: Never Used Substance Use Topics Alcohol use: No Drug use: No Review of Systems Respiratory: Negative. Cardiovascular: Negative. OBJECTIVE BP 160/84 Pulse 68 Resp 16 LMP 02/11/2011 Physical Exam Vitals and nursing note reviewed. Constitutional: General: She is awake. She is not in acute distress. Appearance: Normal appearance. She is well-developed and well-groomed. She is obese. She is not ill-appearing, toxic-appearing or diaphoretic. HENT: Head: Normocephalic. Right Ear: External ear normal. Left Ear: External ear normal. Nose: Nose normal. Eyes: General: Vision grossly intact. Conjunctiva/sclera: Conjunctivae normal. Pupils: Pupils are equal, round, and reactive to light. Neck: Vascular: No JVD. Trachea: Trachea normal. Cardiovascular: Rate and Rhythm: Normal rate and regular rhythm. Pulses: Normal pulses. Heart sounds: Normal heart sounds. No murmur heard. Pulmonary: Effort: Pulmonary effort is normal. No accessory muscle usage, prolonged expiration or respiratory distress. Breath sounds: Normal breath sounds. Musculoskeletal: Cervical back: Neck supple. Skin: General: Skin is warm and dry. Capillary Refill: Capillary refill takes less than 2 seconds. Neurological: General: No focal deficit present. Mental Status: She is alert and oriented to person, place, and time. Mental status is at baseline. Psychiatric: Attention and Perception: Attention and perception normal. Mood and Affect: Mood and affect normal. Speech: Speech normal. Behavior: Behavior normal. Behavior is cooperative. Thought Content: Thought content normal. Cognition and Memory: Cognition and memory normal. Judgment: Judgment normal. ASSESSMENT/PLAN: 1. Type 2 diabetes (HCC) (E11.9) Previously well-controlled on Mounjaro, but insurance denied coverage due to A1c being below the threshold. Patient has a history of at least 120 days of therapy with three preferred medications indicated for diabetes management. - Initiated Victoza 1.8 mg daily; prior authorization to be completed. - Monitor blood glucose levels and report any significant changes. 2. Impaired mobility and activities of daily living (Z74.09) Patient reports difficulty with balance and mobility, currently using a wheelchair. Expresses desire to improve mobility and reduce strain on caregiver. - Discussed benefits of outpatient physical therapy. - Recommended [facility] for physical therapy services. - Patient to confirm preferred location for referral. 3. Class 3 severe obesity due to excess calories with body mass index (BMI) of 50.0 to 59.9 in adult, unspecified whether serious comorbidity present (HCC) (E66.813) Obesity contributing to impaired mobility and increased strain on cardiovascular system. - Initiated Victoza 1.8 mg daily to aid in weight loss. - Encouraged participation in physical therapy to improve mobility and facilitate weight reduction. 4. Iron deficiency anemia, unspecified iron deficiency anemia type (D50.9) Recent extensive blood work ordered by hematology; awaiting results. Follow-up appointment scheduled for September 24 to discuss findings and potential iron infusions. Continue current management; follow-up with hematology on September 24 for further evaluation and treatment plan based on lab results. 5. Primary hypertension (I10) Current regimen includes losartan, Lasix, and Zaroxolyn. Blood pressure control suboptimal. - Discontinued losartan; initiated olmesartan 40 mg daily for improved 24-hour blood pressure control. - Continue Lasix and Zaroxolyn as prescribed. - Monitor blood pressure regularly; follow-up sooner if hypertension persists. Portions of this note have been entered by ancillary staff. I have reviewed and when necessary edited, so that they are an adequate record of my encounter with this patient Please note that parts of this document were created using voice recognition software and therefore may contain grammatical errors. Patient verbalizes understanding of instructions from today's visit and in agreement with treatment plan. Questions answered. Agrees to call the office if questions, concerns of issues with acute symptoms not improving or if they worsen. See diagnoses and orders for additional plan(s). Allergies and medications were reviewed, list was updated, and refills given if needed. Past medical, surgical, social, and family history reviewed and updated as appropriate. Encouraged proper diet & exercise as well as compliance with taking medications. Age-appropriate health preventative measures were discussed. Return if symptoms worsen or fail to improve, for Keep next scheduled appointment.. ANIA Vasques documented in this encounter [facility] 09-06-2024 Telephone encounter Note Patient has been identified by name and date of : yes Patient phones for refill(s): Requested Prescriptions Pending Prescriptions Disp Refills LORazepam (ATIVAN) 1 mg tablet 30 tablet 0 Sig: Take 0.5-1 tablets by mouth once daily as needed for anxiety for up to 30 days. Date of last office visit in primary care: 08/16/2024 Date of next office visit in primary care: 09/07/2024 Please advise. Thank you. Chayito Boyd MA. [facility] 09-06-2024 Miscellaneous Notes Patient has been identified by name and date of : yes Patient phones for refill(s): Requested Prescriptions Pending Prescriptions Disp Refills LORazepam (ATIVAN) 1 mg tablet 30 tablet 0 Sig: Take 0.5-1 tablets by mouth once daily as needed for anxiety for up to 30 days. Date of last office visit in primary care: 08/16/2024 Date of next office visit in primary care: 09/07/2024 Please advise. Thank you. Chayito Boyd MA. documented in this encounter [facility] 08-31-2024 Telephone encounter Note Okay, can discuss more in depth with her next follow up in our office [facility] 08-31-2024 Miscellaneous Notes Okay, can discuss more in depth with her next follow up in our office Called pt and reviewed. She declines to see pharmacy. She doesn't think that will help. I was really bummed for her to see this got denied since she has been on it for some time. Since her hgba1c has been very well controlled I do not think she needs one of the other medications added right now but I know with that comes the concern of weight increasing. Does she want to consult with our pharmacist to see what they recommend? Pt called I and reports she was called by the pharmacy stating that the Mounjaro was denied by her insurance. I let her know our PA department sent the information to Silvestre URIOSTEGUI. We are waiting on a response from the provider with what she would like to do. It states it Pt must have 120 days of therapy with THREE preferred medications, so provider may have to put her on other medication and she must fail them before they will pay for that medication. Please call and advise Pt. Lili Cummings RN Lina URIOSTEGUI rec'd and completed this electronically. This was denied. Did sent insurance the providers last note,A1c results and the fact that this was approved last year. Note from payer: Coverage is provided when the member meets all the followin. Documentation must include a patient specific A1C goal if less than 7%; AND 2. Member has a history of at least 120 days of therapy with THREE preferred medications in this UPDL category and indicated for diagnosis, if available. ONE of the 120 day trials must be with a preferred drug in the same drug class, Victoza (18 MG/3 ML PEN) (Brand name is preferred by the plan) or Trulicity (0.75 mg, 1.5 mg, 3 mg, and 4.5 mg). Other trials may include but are not limited to: Farxiga 5 and 10 mg (Brand name is preferred by the plan), Glimepiride 1,2,4 mg, Glipizide, Januvia, Jardiance 10 and 25 mg and Metformin IR 500 mg, 850 mg, 1000 mg and ER (generics of Glucophage); AND 3. Member has had an inadequate clinical response (the inability to reach A1C goal (less than 7%) after at least 120 days of current regimen, with use of two or more drugs concomitantly per ADA ([place] Diabetes Association) guidelines; AND 4. Member has documented adherence and appropriate dose escalation (must achieve maximum recommended dose or document that maximum recommended dose is not tolerated or is clinically inappropriate). In addition, please provide start and end dates of use AND doses used for all preferred medications (samples are not accepted as trials). The [employer] Policy for Medical Necessity as posted on the [facility] website and [facility] Preferred Drug List criteria were reviewed and per [place] Administrative Code Rule 5160-1-01 (C) and (B), a medically necessary service must include: generally accepted standards of medical practice, be clinically appropriate in administration, treatment and outcome and be the lowest cost alternative to effectively treat the condition. Please contact your provider to assist you with other treatment options that might be covered under your benefit package, or other services that might be available through the community. Payer: [facility] documented in this encounter [facility] 08-31-2024 Telephone encounter Note Called pt and reviewed. She declines to see pharmacy. She doesn't think that will help. [facility] 08-31-2024 Telephone encounter Note I was really bummed for her to see this got denied since she has been on it for some time. Since her hgba1c has been very well controlled I do not think she needs one of the other medications added right now but I know with that comes the concern of weight increasing. Does she want to consult with our pharmacist to see what they recommend? [facility] 08-30-2024 Telephone encounter Note Pt called I and reports she was called by the pharmacy stating that the Floydro was denied by her insurance. I let her know our PA department sent the information to Silvestre URIOSTEGUI. We are waiting on a response from the provider with what she would like to do. It states it Pt must have 120 days of therapy with THREE preferred medications, so provider may have to put her on other medication and she must fail them before they will pay for that medication. Please call and advise Pt. Lili Cummings, SHELBY [facility] 08-30-2024 Telephone encounter Note [employer] PA rec'd and completed this electronically. This was denied. Did sent insurance the providers last note,A1c results and the fact that this was approved last year. Note from payer: Coverage is provided when the member meets all the followin. Documentation must include a patient specific A1C goal if less than 7%; AND 2. Member has a history of at least 120 days of therapy with THREE preferred medications in this UPDL category and indicated for diagnosis, if available. ONE of the 120 day trials must be with a preferred drug in the same drug class, Victoza (18 MG/3 ML PEN) (Brand name is preferred by the plan) or Trulicity (0.75 mg, 1.5 mg, 3 mg, and 4.5 mg). Other trials may include but are not limited to: Farxiga 5 and 10 mg (Brand name is preferred by the plan), Glimepiride 1,2,4 mg, Glipizide, Januvia, Jardiance 10 and 25 mg and Metformin IR 500 mg, 850 mg, 1000 mg and ER (generics of Glucophage); AND 3. Member has had an inadequate clinical response (the inability to reach A1C goal (less than 7%) after at least 120 days of current regimen, with use of two or more drugs concomitantly per ADA ([place] Diabetes Association) guidelines; AND 4. Member has documented adherence and appropriate dose escalation (must achieve maximum recommended dose or document that maximum recommended dose is not tolerated or is clinically inappropriate). In addition, please provide start and end dates of use AND doses used for all preferred medications (samples are not accepted as trials). The [facility] Policy for Medical Necessity as posted on the [facility] website and [facility] Preferred Drug List criteria were reviewed and per [place] Administrative Code Rule 5160-1-01 (C) and (B), a medically necessary service must include: generally accepted standards of medical practice, be clinically appropriate in administration, treatment and outcome and be the lowest cost alternative to effectively treat the condition. Please contact your provider to assist you with other treatment options that might be covered under your benefit package, or other services that might be available through the community. Payer: [facility] 08-30-2024 Telephone encounter Note [facility] calling to ask for refills said they had been filing the Topiramate 50 mg and the Topiramate 100 mg rx. Said they never received a discontinue notice. Patient was still getting both put in her medication packs. On 05/07/2024 office visit with Silvestre Jain NP, she had changed the Topiramate from 50 mg one tablet two times daily to 100 mg one tablet two times daily. Pharmacy asking for several rx refills for the patient also. Pending rx. The patient has been identified by name and date of : Yes, pharmacy Caregiver verified no other encounters exist for this prescription request: Yes Caregiver confirmed with patient/requestor that no other refills are due, in the near future, with this provider at this time: Yes The last office visit in the department: 08/16/2024 Does the patient have a future office visit with this provider/department: Yes 11/16/2024 Requested Prescriptions Pending Prescriptions Disp Refills cyclobenzaprine (FLEXERIL) 5 mg tablet 90 tablet 1 Sig: Take 1-2 tablets by mouth three times a day as needed for muscle spasm. furosemide (LASIX) 20 mg tablet 60 tablet 10 Sig: TAKE 1-2 TABLETS BY MOUTH ONCE DAILY NEEDED FOR EDEMA/ FLUID RETENTION ferrous sulfate (IRON) 325 mg (65 mg iron) tablet 90 tablet 1 Sig: Take 1 tablet by mouth once daily. losartan (COZAAR) 100 mg tablet 90 tablet 3 Sig: Take 1 tablet by mouth once daily. Anh Hazel LPN August 30, 2024 10:07 AM [facility] 08-30-2024 Miscellaneous Notes [facility] calling to ask for refills said they had been filing the Topiramate 50 mg and the Topiramate 100 mg rx. Said they never received a discontinue notice. Patient was still getting both put in her medication packs. On 05/07/2024 office visit with Silvestre Jain NP, she had changed the Topiramate from 50 mg one tablet two times daily to 100 mg one tablet two times daily. Pharmacy asking for several rx refills for the patient also. Pending rx. The patient has been identified by name and date of : Yes, pharmacy Caregiver verified no other encounters exist for this prescription request: Yes Caregiver confirmed with patient/requestor that no other refills are due, in the near future, with this provider at this time: Yes The last office visit in the department: 08/16/2024 Does the patient have a future office visit with this provider/department: Yes 11/16/2024 Requested Prescriptions Pending Prescriptions Disp Refills cyclobenzaprine (FLEXERIL) 5 mg tablet 90 tablet 1 Sig: Take 1-2 tablets by mouth three times a day as needed for muscle spasm. furosemide (LASIX) 20 mg tablet 60 tablet 10 Sig: TAKE 1-2 TABLETS BY MOUTH ONCE DAILY NEEDED FOR EDEMA/ FLUID RETENTION ferrous sulfate (IRON) 325 mg (65 mg iron) tablet 90 tablet 1 Sig: Take 1 tablet by mouth once daily. losartan (COZAAR) 100 mg tablet 90 tablet 3 Sig: Take 1 tablet by mouth once daily. Anh Hazel LPN August 30, 2024 10:07 AM documented in this encounter [facility] 08-24-2024 History of Presen t illness Narrative Meggan Arita 1960 Encounter date: 08/24/2024 Cancer Staging No matching staging information was found for the patient. HPI: Meggan Arita is a 63 year old female with PMHx of GERD, HONEY, Asthma, T2DM, St 3 CKD, HLD, HTN. Referral from PCP, Silvestre Jain for iron deficiency anemia. Pt presents today as a new referral for anemia. Per chart review, long standing. Avg Hgb around 9 - 10 dating back to at least 2008. She notes that she has been experiencing worsening fatigue in the last few months. Falling asleep at work mid task prompting her to see her PCP. In wheelchair today. States that she had an episode of general decline in health a few years back. Was unable to wear CPAP mask causing hypoventilation and elevated CO2. She became unresponsive at home. She was admitted to [facility] for over a month and then to a rehab facility for a year to regain function. She received blood transfsion and iron during admission She denies any recent issues with this. No recent illnesses, fevers, chills or NS. Sinus headaches but nothing new. No vision changes. No Shortness of Breath, CP. Using CPAP. She continues to experience significant fatigue. Stomach pains - has been taking bentyl - hasn't really helped. Side to side pain now just lingering on L side. Worse with fried foods. She is following with GI. No recent scopes. Lower scope in [facility] - > 5 years ago. No noticeable bleeding or unintentional bruising. No unintentional weight loss. Hs been on iron pills "a long time" without issues. CHRISTEL in the past. Denies RSL, neuropathy. No PICA or ice cravings. Not on any other supplement. No PPI use. Denies personal or family hx of known blood disorders or cancers. States her mom may have had bleeding disorder but she is unsure. PAST MEDICAL HISTORY Diagnosis Date Acute gastritis without mention of hemorrhage ALLERGIC RHINITIS NOS 07/15/2007 ANXIETY STATE NOS 12/09/2006 Carpal tunnel syndrome 04/10/2007 Bilateral symptoms with the left worse than the right as of 04-03 CHOLELITH W CHOLECYS NEC 02/07/2005 Lap favio in 03-01 Chronic hepatitis, unspecified (HCC) 03/06/2005 Depression Edema 06/01/2007 Admit 07-08-08 for RLE venous stasis ulcer on Cubicin. Put pt on disability from 08-03-08 to 11-24-08 Esophageal reflux GENERAL OSTEOARTHROSIS 10/29/2006 Headache(784.0) 01/20/2007 [facility] 12-26: consid Sjogren's, CT chest/MRI head/HYUN/KEO/OSMANY/ANCA/SSA/SSB neg Again reinforced the need to start CPAP on 03-04-07: unable to afford as of 04-03 for insurance issues INSOMNIA NOS 07/31/2007 IRON DEFIC ANEMIA NOS 01/20/2007 Colon 03-22-02 ([facility]): no polyps, masses or AVMs Lactose intolerance Low blood potassium 10/20/2014 Low magnesium level 07/08/2016 Morbid obesity (HCC) Obesity, unspecified Obstructive sleep apnea Other dyspnea and respiratory abnormality Primary osteoarthritis of both knees 03/08/2020 severe narrowing of the medial joint space with marginal osteophytes--x-ray knee 2016 SPINAL STENOSIS-LUMBAR 07/09/2007 Stasis edema with ulcer (HCC) 08/02/2013 Type II or unspecified type diabetes mellitus without mention of complication, not stated as uncontrolled 08/05/2007 Unspecified asthma(493.90) Unspecified essential hypertension PAST SURGICAL HISTORY Procedure Laterality Date BIOPSY LIVER NEEDLE PERCUTANEOUS 03/06/05 DELIVERY ONLY 1979 , low cervical DELIVERY ONLY 1980 , low cervical DELIVERY ONLY 1986 , low cervical COLONOSCOPY FLX DX W/COLLJ SPEC WHEN PFRMD 01/30/16 Colonoscopy [facility] outpt EGD TRANSORAL BIOPSY SINGLE/MULTIPLE 07/22/06 ESOPHAGOGASTRODUODENOSCOPY TRANSORAL DIAGNOSTIC 2001 EGD ESOPHAGOGASTRODUODENOSCOPY TRANSORAL DIAGNOSTIC 01/30/16 EGD [facility] out[facility] IMPLANT MESH OPN HERNIA RPR/DEBRIDEMENT CLOSURE 03/06/05 LAPAROSCOPY SURG RPR INITIAL INGUINAL HERNIA 03/06/05 LAPS SURG CHOLECYSTECTOMY W/CHOLANGIOGRAPHY 03/06/05 LIG/TRNSXJ FLP TUBE ABDL/VAG APPR UNI/BI 1986 Tubal ligation OPTX ANKLE DISLOCATION W/REPAIR/INT/XTRNL FIXJ ORIF Ankle Current Outpatient Medications Medication Sig Dispense Refill tirzepatide (MOUNJARO) 15 mg/0.5 mL pen injector Inject 15 mg subcutaneously one time a week. 4 each 2 LORazepam (ATIVAN) 1 mg tablet Take 0.5-1 tablets by mouth once daily as needed for anxiety for up to 30 days. 30 tablet 0 mometasone-formoterol (DULERA) 200-5 mcg/actuation inhaler Inhale 1 puff as instructed two times a day. Rinse mouth after use. 1 each 2 venlafaxine ER (EFFEXOR XR) 75 mg 24 hr capsule Take 1 capsule by mouth once daily. 90 capsule 3 dicyclomine (BENTYL) 10 mg capsule Take 1 capsule by mouth before meals and at bedtime. 120 capsule 5 buPROPion XL (WELLBUTRIN XL) 300 mg 24 hr tablet Take 1 tablet by mouth once daily. 30 tablet 3 metFORMIN ER (GLUCOPHAGE XR) 500 mg 24 hr tablet Take 1 tablet by mouth once daily. 30 tablet 2 cyclobenzaprine (FLEXERIL) 5 mg tablet Take 1-2 tablets by mouth three times a day as needed for muscle spasm. 90 tablet 1 potassium chloride ER (KLOR-CON) 20 mEq tablet Take 1 tablet by mouth two times a day. As directed 60 tablet 5 Zinc Acetate, Oral, 25 mg (zinc) cap Take 1 capsule by mouth once daily. 90 capsule 1 ascorbic acid, vitamin C, (VITAMIN C) 500 mg tablet Take 1 tablet by mouth once daily. 90 tablet 1 atorvastatin (LIPITOR) 10 mg tablet Take 1 tablet by mouth once daily. 90 tablet 1 polyethylene glycol 3350 (MIRALAX) 17 gram/dose powder 2 scoop in liquid daily as needed for bowel movement 17 g 11 diclofenac (VOLTAREN) 1 % topical gel Apply 4 g to affected area four times daily. 450 g 2 topiramate (TOPAMAX) 100 mg tablet Take 1 tablet by mouth two times a day. 180 tablet 3 Cholecalciferol, Vitamin D3, 125 mcg (5,000 unit) cap Take 1 capsule by mouth once daily. 90 capsule 3 ferrous sulfate (IRON) 325 mg (65 mg iron) tablet Take 1 tablet by mouth once daily. 90 tablet 1 montelukast (SINGULAIR) 10 mg tablet Take 1 tablet by mouth daily at bedtime. 30 tablet 11 OXYGEN, HOME THERAPY, 2 L/min by Nasal Cannula route as directed. Using on average 8 hours during the daytime and then at night bled in to PAP machine. furosemide (LASIX) 20 mg tablet TAKE 1-2 TABLETS BY MOUTH ONCE DAILY NEEDED FOR EDEMA/ FLUID RETENTION 60 tablet 10 albuterol (PROVENTIL) 2.5 mg /3 mL (0.083 %) nebulizer solution inhale contents of one vial in nebulizer every 6 hours if needed for wheezing and shortness of breath 300 mL 5 fluticasone (FLONASE) 50 mcg/actuation nasal spray Use 2 Sprays in each nostril once daily as needed. [address] (PROTONIX) 40 mg tablet Take 1 tablet by mouth once daily. 90 tablet 3 losartan (COZAAR) 100 mg tablet Take 1 tablet by mouth once daily. 90 tablet 3 ipratropium (ATROVENT) 0.02 % nebulizer solution Use 2.5 mL via nebulizer four times a day as needed (wheezing). Use over 5-15minutes. Use in addition to albuterol nebulizer. 250 mL 5 nystatin (MYCOSTATIN) powder Apply 1 application to affected area four times daily. 60 g 11 albuterol HFA (PROVENTIL HFA, VENTOLIN HFA) 90 mcg/actuation inhaler Inhale 2 Puffs as instructed every 4 hours as needed for wheezing/shortness of breath. 1 Each 1 fluticasone (FLONASE) 50 mcg/actuation nasal spray Use 1 spray in each nostril daily at bedtime. 1 each 3 WALKER ROLLATOR SEAT WITH 6" WHEELS - RED Diagnosis: Unsteady gait, primary osteoarthritis both knees, decreased mobility 1 Each 0 Lancets Test blood sugar(s) 4 times daily. Dx: Type 2 DM - Controlled E11.9 Insulin: No 200 Each 11 metOLazone (ZAROXOLYN) 5 mg tablet Take 1 tablet by mouth once daily as needed. Take 1/2 hour before lasix. (Patient not taking: Reported on 01/29/2023) 30 tablet 2 blood sugar diagnostic (BLOOD GLUCOSE TEST) test strip Test blood sugar(s) 4 times daily. Dx: Type 2 DM - Controlled E11.9 Insulin: No 50 Strip 11 blood sugar diagnostic (RELION PRIME TEST STRIPS) test strip Test glucose 4 x per day. Dx: E11.9. Insulin use: no 50 Strip 0 Blood Pressure Test Kit-Large (QUICK RESPONSE BP MONITOR) Check blood pressure daily or as needed. I10 Hypertension 1 Each 0 Diaper,Brief, Adult,Disposable (DISPOSABLE BRIEF) Bariatric Briefs - Prevail #10 (thickest brief). 5 per day. 150 Each 1 blood sugar diagnostic (BLOOD GLUCOSE TEST) test strip Test blood sugar(s) four times daily. Dx: Type 2 DM - Controlled E11.9 Insulin: No 150 Strip 11 CPAP AutoPAP 5-12 CM H2O with humidification. Mask (per patient preference) optional chin strap (if indicated) , filters, tubing, humidifier and lifetime supplies. 1 Device 0 Miscellaneous Medical Supply Order: Overnight pulse ox on 4LPM Diagnosis: R09.02 (checking if needs O2 increased at night) 1 Each 0 Blood-Glucose Meter (FREESTYLE FREEDOM LITE) monitoring kit 1 Each as needed. 1 Each 0 COMPOUNDED PRESCRIPTION TENS Unit 4 lead. Use as directed. Needs refills for leads 1 per month as needed Dispense 1 with 5 refills. (M48.06) Spinal stenosis, lumbar region, without neurogenic claudication 1 Each 0 Nebulizer NEBULIZER FOR HOME USE. DX: (J45.20) Mild intermittent asthma without complication 1 Device 0 No current facility-administered medications for this visit. ALLERGIES Allergen Reactions Ciprofloxacin Diarrhea Nausea and diarrhea Mounjaro [Tirzepati* Diarrhea, Vomiting Hospitalized with dehydration and acute kidney injury. Did tolerate Trulicity Buspar [Buspirone H* Other: See Comments Insomnia Carafate [Sucralfat* tightens up chest unable to swallow Celebrex [Celecoxib] Other: See Comments tachycardia, heart palpitations Cheratussin Itching Codeine GI Upset sick to her stomach but able to tolerate in Tylenol with codeine #3 Doxycycline Intolerance, Vomiting Iodine difficulty breathing, swelling, hives Latex difficulty breathing and swelling Levaquin [Levofloxa* GI Upset Meloxicam Rash pruritic rash within hours of taking med Penicillins Swelling, Shortness of Breath Prednisone Mental Status Change Vicodin [Hydrocodon* Itching swelling FAMILY HISTORY Problem Relation Age of Onset Heart Mother Diabetes Mother other (CVA) Father Diabetes Sister Hypertension Sister Kidney Disease Sister No Known Problems Sister No Known Problems Sister No Known Problems Sister Hypertension Brother Diabetes Maternal Grandmother Social History Tobacco Use Smoking status: Never Smokeless tobacco: Never Tobacco comments: Father smoked in childhood home . ETS exposure in current home. Vaping Use Vaping status: Never Used Substance Use Topics Alcohol use: No Drug use: No Review of Systems: Negative except as noted in HPI reviewed 08/24/2024 Physical Exam: BP 182/84 Pulse 72 Temp (Src) 98.2 (Temporal) Ht [Pt. unable to stand[ (0.00m) Wt 0 lb (0.0kg) SpO2 96% LMP 02/11/2011 General: Age-appropriate well developed. Appears well. HEENT: Normocephalic, no sclera icterus, external ears normal, oral cavity clear. Neck: Supple, no thyroid nodules, no JVD. Chest: Clear bilaterally, no wheezes, not labored. Heart: Normal S1 and S2, no abnormal sounds Abdomen: Soft, nontender, nondistended, bowel sounds present, no organomegaly or mass, no rigidity. Extremities: No cyanosis, clubbing, gross deformities, or palpable cords. Neurological: Cranial nerves II through XII are intact bilaterally, strength normal in the upper and lower extremities, no focal deficits. Skin: Warm and dry with no rashes or ulcerations. Nodes: No palpable adenopathy in the cervical, supraclavicular, infraclavicular, or axillary regions. Hematologic: no bruising or petechiae. Psychiatric: Alert and oriented x3. Emotional well-being assessment was performed. Pt denies depression, distress, and or problems with coping or adjustment. Lab Results Component Value Date WBC 7.51 08/24/2024 HB 11.3 (L) 08/24/2024 MCV 96.3 08/24/2024 PLT 268 08/24/2024 Lab Results Component Value Date NA 142 08/16/2024 K 3.9 08/16/2024 CO2 23 08/16/2024 BUN 21 08/16/2024 CREAT 1.31 (H) 08/16/2024 TBILI 0.5 08/16/2024 TPROT 7.3 08/16/2024 ALB 3.8 (L) 08/16/2024 ALKPHOS 121 08/16/2024 ALT 10 08/16/2024 AST 13 08/16/2024 Latest Reference Range & Units 04/23/24 11:02 08/16/24 10:47 Ferritin 14.7 - 205.1 ng/mL 297.0 (H) Iron 41 - 186 ug/dL 63 29 (L) TIBC 232 - 386 ug/dL 224 (L) 202 (L) Transferrin Saturation 15.0 - 57.0 % 28.1 14.4 (L) (H): Data is abnormally high (L): Data is abnormally low Assessment and Plan: Ms. Arita is a pleasant 63 year old woman presenting as a new referral for anemia Anemia - pt with long standing hx of anemia, per records dating back to at least 2008. Avg hgb has been in 9 - 10 range. - last hgb on 08/16/2024 was 10.5 - we reviewed most common causes of anemia including chronic blood loss, malabsorption, CKD, liver dysfunction, bone marrow disorders. - iron studies reviewed with patient, Ferritin elevated 297.0 . No iron deficiency. Appears to be more anemia chronic disease/ inflammation with low TIBC and know ST3 CKD. Not a candidate for LINUS at this time as hgb is over 10. - slight macrocytosis - plan to check labs today, repeat b12, MMA, folate, copper, zinc, retic, hapto, LDH. Check SPEP, light chains with CKD. - encouraged GI follow up. RTC in about 1 - 2 weeks for lab review. Advised to call with any questions or concern in the meantime. Gavi Ureña [email or web address].[email or web address] I spent a total of 60 minutes on the date of the service which included preparing to see the patient, [id number] patient care, completing clinical documentation, obtaining and/or reviewing separately obtained history, performing a medically appropriate examination, counseling and educating the patient/family/caregiver, and ordering medications, tests, or procedures. Portions of this note including HPI, ROS, impression/plan may have been copied forward as to provide important historical information essential in contributing to medical decision making. Documentation has been reviewed and edited as necessary to support clinical decision making for today's visit and to reflect my own independent evaluation of this patient. documented in this encounter [facility] 08-24-2024 Note [facility] 08-18-2024 Telephone encounter Note Scheduled with patient [facility] Work Phone: 08-18-2024 Miscellaneous Notes Scheduled with patient Can schedule with Gavi Ureña APRN Please review and advise CONSULT TO HEMATOLOGY/ONCOLOGY Status: Needs Scheduling Requested appt date: Authorizing: Silvestre Jain APRN.CNP [facility] Referral: [id number] (Authorized) Expires: 08/18/2025 Priority: Routine Diagnosis: Iron deficiency anemia, unspecified iron deficiency anemia type [D50.9] documented in this encounter [facility] 08-18-2024 Telephone encounter Note Can schedule with Gavi Ureña APRN [facility] 08-18-2024 Telephone encounter Note Please review and advise CONSULT TO HEMATOLOGY/ONCOLOGY Status: Needs Scheduling Requested appt date: Authorizing: Silvestre Jain APRN.CNP in [facility] Referral: [id number] (Authorized) Expires: 08/18/2025 Priority: Routine Diagnosis: Iron deficiency anemia, unspecified iron deficiency anemia type [D50.9] [facility] 08-18-2024 Telephone encounter Note Pt returned call and given provider's message below with verbalized understanding. Pt agreeable. Transferred to [facility]. [facility] 08-18-2024 Miscellaneous Notes Pt returned call and given provider's message below with verbalized understanding. Pt agreeable. Transferred to [facility]. Please let her know to continue the iron and vitamin c, I would like her to complete a test to check for blood in the stool, order placed. I would also like her to see hematology because iron stores (ferritin) is elevated but iron in the blood is low. Silvestre Jain APRN.NIKKY patient notified of information. patient states that she is taking the iron and vitamin c daily. no s/s of bleeding. please review and advise. patient would like a phone call back with information instead of a mychart message. documented in this encounter [facility] 08-18-2024 Telephone encounter Note Please let her know to continue the iron and vitamin c, I would like her to complete a test to check for blood in the stool, order placed. I would also like her to see hematology because iron stores (ferritin) is elevated but iron in the blood is low. Silvestre Jain APRN.NIKKY [facility] 08-17-2024 Telephone encounter Note patient notified of information. patient states that she is taking the iron and vitamin c daily. no s/s of bleeding. please review and advise. patient would like a phone call back with information instead of a mychart message. [facility] 08-16-2024 Note [facility] 08-16-2024 History of Presen t illness Narrative SUBJECTIVE Meggan Arita is a 63 year old female here today for a check up on her medical problems. Chief Complaint Patient presents with: F/U 3 Month: fatigue in last few days. Has been falling asleep while at work. Does wear CPAP at night and feels she is benefiting from use. Diarrhea has increased question is related to stress as she is getting on . weight gain feels injection doesn't seem to be helping any longer HPI Meggan Arita is a 63 year old female. She is an established patient of Erica Cannon MD. Here today for concerns of noticing some increased fatigue. Falling asleep easy while doing things like playing [employer]. She is using her CPAP. Has 2.5 liters o2 bled in to pap. Feels she does benefit from using this. Due for labs. She does note some frustration with not losing much weight despite being on Mounjaro. Sugars are doing well. Some issues with a lot of drainage. Her medications were reviewed today and her list is now up to date. Medications Current Outpatient Medications Medication Sig tirzepatide (MOUNJARO) 15 mg/0.5 mL pen injector Inject 15 mg subcutaneously one time a week. mometasone-formoterol (DULERA) 200-5 mcg/actuation inhaler Inhale 1 puff as instructed two times a day. Rinse mouth after use. venlafaxine ER (EFFEXOR XR) 75 mg 24 hr capsule Take 1 capsule by mouth once daily. dicyclomine (BENTYL) 10 mg capsule Take 1 capsule by mouth before meals and at bedtime. buPROPion XL (WELLBUTRIN XL) 300 mg 24 hr tablet Take 1 tablet by mouth once daily. metFORMIN ER (GLUCOPHAGE XR) 500 mg 24 hr tablet Take 1 tablet by mouth once daily. cyclobenzaprine (FLEXERIL) 5 mg tablet Take 1-2 tablets by mouth three times a day as needed for muscle spasm. potassium chloride ER (KLOR-CON) 20 mEq tablet Take 1 tablet by mouth two times a day. As directed Zinc Acetate, Oral, 25 mg (zinc) cap Take 1 capsule by mouth once daily. ascorbic acid, vitamin C, (VITAMIN C) 500 mg tablet Take 1 tablet by mouth once daily. atorvastatin (LIPITOR) 10 mg tablet Take 1 tablet by mouth once daily. polyethylene glycol 3350 (MIRALAX) 17 gram/dose powder 2 scoop in liquid daily as needed for bowel movement diclofenac (VOLTAREN) 1 % topical gel Apply 4 g to affected area four times daily. topiramate (TOPAMAX) 100 mg tablet Take 1 tablet by mouth two times a day. Cholecalciferol, Vitamin D3, 125 mcg (5,000 unit) cap Take 1 capsule by mouth once daily. ferrous sulfate (IRON) 325 mg (65 mg iron) tablet Take 1 tablet by mouth once daily. montelukast (SINGULAIR) 10 mg tablet Take 1 tablet by mouth daily at bedtime. furosemide (LASIX) 20 mg tablet TAKE 1-2 TABLETS BY MOUTH ONCE DAILY NEEDED FOR EDEMA/ FLUID RETENTION albuterol (PROVENTIL) 2.5 mg /3 mL (0.083 %) nebulizer solution inhale contents of one vial in nebulizer every 6 hours if needed for wheezing and shortness of breath fluticasone (FLONASE) 50 mcg/actuation nasal spray Use 2 Sprays in each nostril once daily as needed. pantoprazole DR (PROTONIX) 40 mg tablet Take 1 tablet by mouth once daily. losartan (COZAAR) 100 mg tablet Take 1 tablet by mouth once daily. ipratropium (ATROVENT) 0.02 % nebulizer solution Use 2.5 mL via nebulizer four times a day as needed (wheezing). Use over 5-15minutes. Use in addition to albuterol nebulizer. nystatin (MYCOSTATIN) powder Apply 1 application to affected area four times daily. albuterol HFA (PROVENTIL HFA, VENTOLIN HFA) 90 mcg/actuation inhaler Inhale 2 Puffs as instructed every 4 hours as needed for wheezing/shortness of breath. fluticasone (FLONASE) 50 mcg/actuation nasal spray Use 1 spray in each nostril daily at bedtime. LORazepam (ATIVAN) 1 mg tablet Take 0.5-1 tablets by mouth once daily as needed for anxiety for up to 30 days. OXYGEN, HOME THERAPY, 2 L/min by Nasal Cannula route as directed. Using on average 8 hours during the daytime and then at night bled in to PAP machine. WALKER ROLLATOR SEAT WITH 6" WHEELS - RED Diagnosis: Unsteady gait, primary osteoarthritis both knees, decreased mobility Lancets Test blood sugar(s) 4 times daily. Dx: Type 2 DM - Controlled E11.9 Insulin: No metOLazone (ZAROXOLYN) 5 mg tablet Take 1 tablet by mouth once daily as needed. Take 1/2 hour before lasix. (Patient not taking: Reported on 01/29/2023) blood sugar diagnostic (BLOOD GLUCOSE TEST) test strip Test blood sugar(s) 4 times daily. Dx: Type 2 DM - Controlled E11.9 Insulin: No blood sugar diagnostic (RELION PRIME TEST STRIPS) test strip Test glucose 4 x per day. Dx: E11.9. Insulin use: no Blood Pressure Test Kit-Large (QUICK RESPONSE BP MONITOR) Check blood pressure daily or as needed. I10 Hypertension Diaper,Brief, Adult,Disposable (DISPOSABLE BRIEF) Bariatric Briefs - Prevail #10 (thickest brief). 5 per day. blood sugar diagnostic (BLOOD GLUCOSE TEST) test strip Test blood sugar(s) four times daily. Dx: Type 2 DM - Controlled E11.9 Insulin: No CPAP AutoPAP 5-12 CM H2O with humidification. Mask (per patient preference) optional chin strap (if indicated) , filters, tubing, humidifier and lifetime supplies. Miscellaneous Medical Supply Order: Overnight pulse ox on 4LPM Diagnosis: R09.02 (checking if needs O2 increased at night) Blood-Glucose Meter (FREESTYLE FREEDOM LITE) monitoring kit 1 Each as needed. COMPOUNDED PRESCRIPTION TENS Unit 4 lead. Use as directed. Needs refills for leads 1 per month as needed Dispense 1 with 5 refills. (M48.06) Spinal stenosis, lumbar region, without neurogenic claudication Nebulizer NEBULIZER FOR HOME USE. DX: (J45.20) Mild intermittent asthma without complication No current facility-administered medications for this visit. ALLERGIES Allergen Reactions Ciprofloxacin Diarrhea Nausea and diarrhea Mounjaro [Tirzepati* Diarrhea, Vomiting Hospitalized with dehydration and acute kidney injury. Did tolerate Trulicity Buspar [Buspirone H* Other: See Comments Insomnia Carafate [Sucralfat* tightens up chest unable to swallow Celebrex [Celecoxib] Other: See Comments tachycardia, heart palpitations Cheratussin Itching Codeine GI Upset sick to her stomach but able to tolerate in Tylenol with codeine #3 Doxycycline Intolerance, Vomiting Iodine difficulty breathing, swelling, hives Latex difficulty breathing and swelling Levaquin [Levofloxa* GI Upset Meloxicam Rash pruritic rash within hours of taking med Penicillins Swelling, Shortness of Breath Prednisone Mental Status Change Vicodin [Hydrocodon* Itching swelling ACTIVE PROBLEM LIST Mixed Hyperlipidemia - 08/07/2022 Stage 3 Chronic Kidney Disease (Hcc) - 08/07/2022 Ulcer of Left Lower Extremity, Limited to Breakdown of Skin ([facility]) - 02/20/2022 Comment: Large wound medial thigh; also 2 smaller ones (medial and lateral thigh) Bilateral Leg Edema - 02/20/2022 Comment: Not needing as much Lasix as before; would take metolazone before Lasix as before for prn use Primary Osteoarthritis of Both Knees - 03/08/2020 Comment: severe narrowing of the medial joint space with marginal osteophytes--x-ray knee 2016 Depression - 01/24/2016 Type 2 Diabetes ([facility]) - 09/01/2014 Bmi 60.0-69.9, Adult ([facility]) - 06/30/2014 Pulmonary Hypertension (Hcc) - 04/23/2013 Allergic Rhinitis - 07/15/2007 Spinal Stenosis, Lumbar Region, Without Neurogenic Claudication - 07/09/2007 Comment: not sure where this diagnosis came from since no prior MRI or CT scan with mention of this diagnosis Edema - 06/01/2007 Comment: Admit 07-08-08 for RLE venous stasis ulcer on Cubicin. Put pt on disability from 08-03-08 to 11-24-08 Iron Deficiency Anemia, Unspecified - 01/20/2007 Comment: Colon 03-22-02 ([facility]): no polyps, masses or AVMs Anxiety State - 12/09/2006 Generalized Osteoarthrosis, Unspecified Site - 10/29/2006 Esophageal Reflux - 03/16/2005 Comment: EGD in 06-30: no evidence of esophagitis but there is gastritis (H pylori was negative) Chronic Hepatitis, Unspecified ([facility]) - 03/06/2005 Comment: Liver biopsy w/ cholecystectomy Hypertension Comment: Echo at [place] 01-25: LVH, mild TR, LAE, RVE, PASP 38 (mild), no EF documented per Seese Seese 01-07-03: consider GERD for atyp CP, not cath candidate from obesity, doubt cardiac source ECG 03-30: NSR with PVC, lat T flattening, no ischemia/injury (ECG NL in 10-27 at [place]) Rec for Dobut Echo in 05-28 per Seese (Darshan) prior to rec gastric bypass (Study 07-21-03 was NL) Admit for BRYAN in 09-29: rec Cardizem and Lopressor after negative enzymes, outpt stress Dobut Echo 11-18-05: 80% APMHR, No RWMA, NL but limited by not achieving APMHR LDL 96, HDL 45, TG 45 in 01-01 Restarted K supplements for K of 3.3 in 08-01 as pt on Lasix Order placed for Holter in 04-04 after ED visit for palpitations Metoprolol to 100 mg bid in 04-04 for BP and palpitations Holter 04-04: no AF, VT but pt with 7 sec pause Metop changed to Hydralazine and HCTZ as inpt in 04-04 with the Holter findings Carotids at [place] in 04-04: 1-15% stenosis bilaterally Obstructive Sleep Apnea Comment: Scheduled sleep study in 11-3012-08-06: sleep time 60 minutes/294 minutes studied, AHI 48, low sat 79%-rec auto-titrating CPAP Trial of an auto-titrating CPAP in 11-30: unable to sleep long enough for diagnosis Phoned pt at work 12-24-06 to call about scheduling auto Asthma (Hcc) Social History Tobacco Use Smoking status: Never Smokeless tobacco: Never Tobacco comments: Father smoked in childhood home . ETS exposure in current home. Vaping Use Vaping status: Never Used Substance Use Topics Alcohol use: No Drug use: No Review of Systems Constitutional: Positive for fatigue. Respiratory: Negative. Cardiovascular: Negative. OBJECTIVE BP 168/81 Pulse 77 SpO2 96% LMP 02/11/2011 Physical Exam Vitals and nursing note reviewed. Constitutional: General: She is awake. She is not in acute distress. Appearance: Normal appearance. She is well-developed and well-groomed. She is not ill-appearing, toxic-appearing or diaphoretic. HENT: Head: Normocephalic. Right Ear: External ear normal. Left Ear: External ear normal. Nose: Nose normal. Eyes: General: Vision grossly intact. Conjunctiva/sclera: Conjunctivae normal. Pupils: Pupils are equal, round, and reactive to light. Neck: Vascular: No JVD. Trachea: Trachea normal. Cardiovascular: Rate and Rhythm: Normal rate and regular rhythm. Pulses: Normal pulses. Heart sounds: Normal heart sounds. No murmur heard. Pulmonary: Effort: Pulmonary effort is normal. No accessory muscle usage, prolonged expiration or respiratory distress. Breath sounds: Normal breath sounds. Musculoskeletal: Cervical back: Neck supple. Skin: General: Skin is warm and dry. Capillary Refill: Capillary refill takes less than 2 seconds. Neurological: General: No focal deficit present. Mental Status: She is alert and oriented to person, place, and time. Mental status is at baseline. Psychiatric: Attention and Perception: Attention and perception normal. Mood and Affect: Mood and affect normal. Speech: Speech normal. Behavior: Behavior normal. Behavior is cooperative. Thought Content: Thought content normal. Cognition and Memory: Cognition and memory normal. Judgment: Judgment normal. ASSESSMENT/PLAN: 1. Other fatigue - ICD9: 780.79, ICD10: R53.83 (primary diagnosis) Update labs. If labs stable then will reach out to sleep medicine to determine if pap might need adjusted. - THYROID STIMULATING HORMONE 2. Obstructive sleep apnea - ICD9: 327.23, ICD10: G47.33 See above. 3. Allergic rhinitis, unspecified seasonality, unspecified trigger - ICD9: 477.9, ICD10: J30.9 - FLUTICASONE PROPIONATE 50 MCG/ACTUATION NASAL SPRAY,SUSPENSION 4. Type 2 diabetes (HCC) - ICD9: 250.00, ICD10: E11.9 - Controlled - Continue current medications - HEMOGLOBIN A1C 5. Iron deficiency anemia, unspecified iron deficiency anemia type - ICD9: 280.9, ICD10: D50.9 - IRON AND TIBC - VITAMIN B12 - FERRITIN 6. Vitamin D deficiency - ICD9: 268.9, ICD10: E55.9 - VITAMIN D 25 HYDROXY 7. Class 3 severe obesity due to excess calories with body mass index (BMI) of 50.0 to 59.9 in adult, unspecified whether serious comorbidity present (HCC) - ICD9: 278.01, V85.43, ICD10: E66.813, Z68.43 - Behavioral intervention and - Pharmacological intervention 8. Encounter for therapeutic drug monitoring - ICD9: V58.83, ICD10: Z51.81 - MAGNESIUM - COMPLETE BLOOD COUNT AND DIFFERENTIAL - COMPREHENSIVE METABOLIC PANEL Portions of this note have been entered by ancillary staff. I have reviewed and when necessary edited, so that they are an adequate record of my encounter with this patient Please note that parts of this document were created using voice recognition software and therefore may contain grammatical errors. Patient verbalizes understanding of instructions from today's visit and in agreement with treatment plan. Questions answered. Agrees to call the office if questions, concerns of issues with acute symptoms not improving or if they worsen. See diagnoses and orders for additional plan(s). Allergies and medications were reviewed, list was updated, and refills given if needed. Past medical, surgical, social, and family history reviewed and updated as appropriate. Encouraged proper diet & exercise as well as compliance with taking medications. Age-appropriate health preventative measures were discussed. Return if symptoms worsen or fail to improve, for Keep next scheduled appointment.. Silvestre Jain APRN-NIKKY documented in this encounter [facility] 07-28-2024 Telephone encounter Note PATIENT NOTIFIED OF SAME. Will call back in am to schedule ultrasound. [facility] 07-28-2024 Miscellaneous Notes PATIENT NOTIFIED OF SAME. Will call back in am to schedule ultrasound. Orders placed, I would recommend Dr. Otto for urology if wanting to stay local. Spoke with Chelsea and she would like referral to urology and willing to complete post void residual ultrasound. The urine cultures show possible contamination of the sample so I do not think another urine test would be helpful at this time. We could consider doing an ultrasound of the bladder to see if she is filling the bladder and completely emptying it once urinating. I also would suggest we have her see urology, has she seen urology before in the past? Pt reports she has been to UC twice for uti. First on 06/23 -prescribed Macrobid. Then again on 07/18-prescribed Keflex. Pt reports she will finish atb tomorrow. Pt reports sx start going away but now at the end of atb she is having pressure again. Pt reports she feels like her bladder is full and she has to hurry and go to the bathroom but when she actually urinates there isn't much urine. Pt is asking if she needs to do another urine test or what else could be the issue. Pt did not schedule appt at this time. Pt wanted provider to review. Pt also is requesting a refill on Mounjaro. Last OV: 05/07/24 Next scheduled appt: 08/16/24 Muriel Burgess LPN documented in this encounter [facility] 07-28-2024 Telephone encounter Note Orders placed, I would recommend Dr. Otto for urology if wanting to stay local. [facility] 07-28-2024 Telephone encounter Note Spoke with Chelsea and she would like referral to urology and willing to complete post void residual ultrasound. [facility] 07-28-2024 Telephone encounter Note The urine cultures show possible contamination of the sample so I do not think another urine test would be helpful at this time. We could consider doing an ultrasound of the bladder to see if she is filling the bladder and completely emptying it once urinating. I also would suggest we have her see urology, has she seen urology before in the past? [facility] 07-27-2024 Telephone encounter Note Pt reports she has been to UC twice for uti. First on 06/23 -prescribed Macrobid. Then again on 07/18-prescribed Keflex. Pt reports she will finish atb tomorrow. Pt reports sx start going away but now at the end of atb she is having pressure again. Pt reports she feels like her bladder is full and she has to hurry and go to the bathroom but when she actually urinates there isn't much urine. Pt is asking if she needs to do another urine test or what else could be the issue. Pt did not schedule appt at this time. Pt wanted provider to review. Pt also is requesting a refill on Mounjaro. Last OV: 05/07/24 Next scheduled appt: 08/16/24 Muriel Burgess LPN [facility] 07-26-2024 Telephone encounter Note Called and asked if this was testing that they do and Neetu reports yes. Verbal ok given as requested. Maria Dolores Ivan RN [facility] 07-26-2024 Miscellaneous Notes Called and asked if this was testing that they do and Neetu reports yes. Verbal ok given as requested. Maria Dolores Ivan RN This is something they are doing? It is OK. Neetu Christensen calls to report that patient is due for her yearly testing for Medicaid for use of oxygen 24 hours/day. If ok, please call verbal order to [phone]. Maria Dolores Ivan RN documented in this encounter [facility] 07-26-2024 Telephone encounter Note This is something they are doing? It is OK. [facility] 07-26-2024 Telephone encounter Note Neetu Christensen calls to report that patient is due for her yearly testing for Medicaid for use of oxygen 24 hours/day. If ok, please call verbal order to [phone]. Maria Dolores Ivan RN [facility] 07-19-2024 Telephone encounter Note Urine culture reveals mixed bacteria Reached out to patient, She has started taking the Keflex Discussed results Follow up with PCP this week for repeat testing to ensure blood has resolved and sx improved. Verbalized understanding [facility] Work Phone: 07-19-2024 Miscellaneous Notes Urine culture reveals mixed bacteria Reached out to patient, She has started taking the Keflex Discussed results Follow up with PCP this week for repeat testing to ensure blood has resolved and sx improved. Verbalized understanding documented in this encounter [facility] 07-18-2024 Instructions Zayda Jackson APRN.CNP - 07/18/2024 11:46 AM EDT 1. Dysuria (R30.0) 2. Urinary tract infection with hematuria, site unspecified (N39.0) - Urinalysis shows hematuria, proteinuria, and pyuria, indicating infection. - Prescribed Cephalexin 500 mg orally TID for 7 days; sent prescription to [facility] - Sent urine sample for culture to confirm appropriate antibiotic coverage. - Advised increased water intake to aid in symptom relief and prevent recurrence. - Patient to monitor symptoms; improvement expected within 24 hours of antibiotic initiation. - I ve prescribed Keflex to take three times a day for 7 days; cone picker your prescription at [facility]. - Drink plenty of water each day to help flush your bladder and reduce irritation. - We sent your urine sample for a culture to confirm that Keflex is the right antibiotic for your infection. - You should notice a significant improvement in your urinary symptoms within about 24 hours. documented in this encounter [facility] 07-18-2024 Note [facility] 07-18-2024 History of Presen t illness Narrative [facility] Subjective Meggan Arita is a 63 year old female. Patient presents with: Urinary Urgency HPI Urinary Symptoms: - Dysuria, urinary frequency, and abdominal cramping. - Describes a sensation of bladder fullness with minimal urine output, followed by really bad cramps. - Symptoms began approximately one month ago. - Recent treatment with Macrobid provided temporary relief; symptoms resolved but recurred. - Denies fever, chills, nausea, or emesis. - Drinks Olipop, a probiotic beverage, but reports low water intake. - Denies hematuria. Review of Systems Constitutional: Negative for chills and fever. Respiratory: Negative. Cardiovascular: Negative. Gastrointestinal: Positive for abdominal pain (cramping). Genitourinary: Positive for dysuria and frequency. Negative for difficulty urinating, flank pain, hematuria and urgency. Musculoskeletal: Positive for back pain. Skin: Negative for rash. Constitutional: (-) fever, (-) chills Gastrointestinal: (-) nausea, (-) vomiting Genitourinary: (+) urinary frequency, (+) urinary urgency, (+) suprapubic pain Musculoskeletal: (+) lower back pain Objective BP 120/70 Pulse 76 Temp 36.9 C (98.4 F) Ht 175.3 cm (5' 9") Wt (!) 180.1 kg (397 lb) LMP 02/11/2011 SpO2 98% BMI 58.63 kg/m PAST MEDICAL HISTORY Diagnosis Date Acute gastritis without mention of hemorrhage ALLERGIC RHINITIS NOS 07/15/2007 ANXIETY STATE NOS 12/09/2006 Carpal tunnel syndrome 04/10/2007 Bilateral symptoms with the left worse than the right as of 2-08 CHOLELITH W CHOLECYS NEC 02/07/2005 Lap favio in 1- Chronic hepatitis, unspecified (HCC) 03/06/2005 Depression Edema 06/01/2007 Admit 07-08-08 for RLE venous stasis ulcer on Cubicin. Put pt on disability from 08-03-08 to 11-24-08 Esophageal reflux GENERAL OSTEOARTHROSIS 10/29/2006 Headache(784.0) 01/20/2007 [facility] -02: consid Sjogren's, CT chest/MRI head/HYUN/KEO/OSMANY/ANCA/SSA/SSB neg Again reinforced the need to start CPAP on 03-04-07: unable to afford as of 04-03 for insurance issues INSOMNIA NOS 07/31/2007 IRON DEFIC ANEMIA NOS 01/20/2007 Colon 03-22-02 ([facility]): no polyps, masses or AVMs Lactose intolerance Low blood potassium 10/20/2014 Low magnesium level 07/08/2016 Morbid obesity (HCC) Obesity, unspecified Obstructive sleep apnea Other dyspnea and respiratory abnormality Primary osteoarthritis of both knees 03/08/2020 severe narrowing of the medial joint space with marginal osteophytes--x-ray knee 2015 SPINAL STENOSIS-LUMBAR 07/09/2007 Stasis edema with ulcer (HCC) 08/02/2013 Type II or unspecified type diabetes mellitus without mention of complication, not stated as uncontrolled 08/05/2007 Unspecified asthma(493.90) Unspecified essential hypertension PAST SURGICAL HISTORY Procedure Laterality Date BIOPSY LIVER NEEDLE PERCUTANEOUS 03/06/05 DELIVERY ONLY 1979 , low cervical DELIVERY ONLY 1980 , low cervical DELIVERY ONLY 1986 , low cervical COLONOSCOPY FLX DX W/COLLJ SPEC WHEN PFRMD 01/30/16 [facility]oscopy [facility] outpt EGD TRANSORAL BIOPSY SINGLE/MULTIPLE 07/22/06 ESOPHAGOGASTRODUODENOSCOPY TRANSORAL DIAGNOSTIC 2001 EGD ESOPHAGOGASTRODUODENOSCOPY TRANSORAL DIAGNOSTIC 01/30/16 EGD [facility] out[facility] IMPLANT MESH OPN HERNIA RPR/DEBRIDEMENT CLOSURE 03/06/05 LAPAROSCOPY SURG RPR INITIAL INGUINAL HERNIA 03/06/05 LAPS SURG CHOLECYSTECTOMY W/CHOLANGIOGRAPHY 03/06/05 LIG/TRNSXJ FLP TUBE ABDL/VAG APPR UNI/BI 1986 Tubal ligation OPTX ANKLE DISLOCATION W/REPAIR/INT/XTRNL FIXJ ORIF Ankle ALLERGIES Ciprofloxacin, Mounjaro [Tirzepatide], Buspar [Buspirone Hcl], Carafate [Sucralfate], Celebrex [Celecoxib], Cheratussin, Codeine, Doxycycline, Iodine, Latex, Levaquin [Levofloxacin], Meloxicam, Penicillins, Prednisone, and Vicodin [Hydrocodone-Acetaminophen] MEDICATIONS LORazepam (ATIVAN) 1 mg tablet Take 0.5-1 tablets by mouth once daily as needed for anxiety for up to 30 days. mometasone-formoterol (DULERA) 200-5 mcg/actuation inhaler Inhale 1 puff as instructed two times a day. Rinse mouth after use. venlafaxine ER (EFFEXOR XR) 75 mg 24 hr capsule Take 1 capsule by mouth once daily. dicyclomine (BENTYL) 10 mg capsule Take 1 capsule by mouth before meals and at bedtime. buPROPion XL (WELLBUTRIN XL) 300 mg 24 hr tablet Take 1 tablet by mouth once daily. metFORMIN ER (GLUCOPHAGE XR) 500 mg 24 hr tablet Take 1 tablet by mouth once daily. cyclobenzaprine (FLEXERIL) 5 mg tablet Take 1-2 tablets by mouth three times a day as needed for muscle spasm. potassium chloride ER (KLOR-CON) 20 mEq tablet Take 1 tablet by mouth two times a day. As directed Zinc Acetate, Oral, 25 mg (zinc) cap Take 1 capsule by mouth once daily. ascorbic acid, vitamin C, (VITAMIN C) 500 mg tablet Take 1 tablet by mouth once daily. atorvastatin (LIPITOR) 10 mg tablet Take 1 tablet by mouth once daily. polyethylene glycol 3350 (MIRALAX) 17 gram/dose powder 2 scoop in liquid daily as needed for bowel movement diclofenac (VOLTAREN) 1 % topical gel Apply 4 g to affected area four times daily. topiramate (TOPAMAX) 100 mg tablet Take 1 tablet by mouth two times a day. Cholecalciferol, Vitamin D3, 125 mcg (5,000 unit) cap Take 1 capsule by mouth once daily. tirzepatide (MOUNJARO) 15 mg/0.5 mL pen injector Inject 15 mg subcutaneously one time a week. ferrous sulfate (IRON) 325 mg (65 mg iron) tablet Take 1 tablet by mouth once daily. montelukast (SINGULAIR) 10 mg tablet Take 1 tablet by mouth daily at bedtime. OXYGEN, HOME THERAPY, 2 L/min by Nasal Cannula route as directed. Using on average 8 hours during the daytime and then at night bled in to PAP machine. WALKER ROLLATOR SEAT WITH 6" WHEELS - RED Diagnosis: Unsteady gait, primary osteoarthritis both knees, decreased mobility furosemide (LASIX) 20 mg tablet TAKE 1-2 TABLETS BY MOUTH ONCE DAILY NEEDED FOR EDEMA/ FLUID RETENTION albuterol (PROVENTIL) 2.5 mg /3 mL (0.083 %) nebulizer solution inhale contents of one vial in nebulizer every 6 hours if needed for wheezing and shortness of breath fluticasone (FLONASE) 50 mcg/actuation nasal spray Use 2 Sprays in each nostril once daily as needed. pantoprazole DR (PROTONIX) 40 mg tablet Take 1 tablet by mouth once daily. losartan (COZAAR) 100 mg tablet Take 1 tablet by mouth once daily. ipratropium (ATROVENT) 0.02 % nebulizer solution Use 2.5 mL via nebulizer four times a day as needed (wheezing). Use over 5-15minutes. Use in addition to albuterol nebulizer. nystatin (MYCOSTATIN) powder Apply 1 application to affected area four times daily. Lancets Test blood sugar(s) 4 times daily. Dx: Type 2 DM - Controlled E11.9 Insulin: No albuterol HFA (PROVENTIL HFA, VENTOLIN HFA) 90 mcg/actuation inhaler Inhale 2 Puffs as instructed every 4 hours as needed for wheezing/shortness of breath. blood sugar diagnostic (BLOOD GLUCOSE TEST) test strip Test blood sugar(s) 4 times daily. Dx: Type 2 DM - Controlled E11.9 Insulin: No blood sugar diagnostic (RELION PRIME TEST STRIPS) test strip Test glucose 4 x per day. Dx: E11.9. Insulin use: no Blood Pressure Test Kit-Large (QUICK RESPONSE BP MONITOR) Check blood pressure daily or as needed. I10 Hypertension Diaper,Brief, Adult,Disposable (DISPOSABLE BRIEF) Bariatric Briefs - Prevail #10 (thickest brief). 5 per day. blood sugar diagnostic (BLOOD GLUCOSE TEST) test strip Test blood sugar(s) four times daily. Dx: Type 2 DM - Controlled E11.9 Insulin: No CPAP AutoPAP 5-12 CM H2O with humidification. Mask (per patient preference) optional chin strap (if indicated) , filters, tubing, humidifier and lifetime supplies. Miscellaneous Medical Supply Order: Overnight pulse ox on 4LPM Diagnosis: R09.02 (checking if needs O2 increased at night) Blood-Glucose Meter (FREESTYLE FREEDOM LITE) monitoring kit 1 Each as needed. COMPOUNDED PRESCRIPTION TENS Unit 4 lead. Use as directed. Needs refills for leads 1 per month as needed Dispense 1 with 5 refills. (M48.06) Spinal stenosis, lumbar region, without neurogenic claudication Nebulizer NEBULIZER FOR HOME USE. DX: (J45.20) Mild intermittent asthma without complication cephALEXin (KEFLEX) 500 mg capsule Take 1 capsule by mouth three times a day for 7 days. metOLazone (ZAROXOLYN) 5 mg tablet Take 1 tablet by mouth once daily as needed. Take 1/2 hour before lasix. (Patient not taking: Reported on 01/29/2023) FAMILY HISTORY Problem Relation Age of Onset other (CVA) Father Heart Mother Diabetes Mother Social History Tobacco Use Smoking status: Never Smokeless tobacco: Never Tobacco comments: Father smoked in childhood home . ETS exposure in current home. Vaping Use Vaping status: Never Used Substance Use Topics Alcohol use: No Drug use: No Physical Exam Vitals and nursing note reviewed. Constitutional: General: She is not in acute distress. Appearance: Normal appearance. She is not ill-appearing. Cardiovascular: Rate and Rhythm: Normal rate and regular rhythm. Heart sounds: Normal heart sounds. Pulmonary: Effort: Pulmonary effort is normal. No respiratory distress. Breath sounds: Normal breath sounds. No wheezing or rales. Abdominal: Palpations: Abdomen is soft. Skin: General: Skin is warm and dry. Neurological: Mental Status: She is alert. General: No acute distress. CV: Heart sounds normal. Resp: Lung sounds normal. {1. Dysuria (R30.0) 2. Urinary tract infection with hematuria, site unspecified (N39.0) - Urinalysis shows hematuria, proteinuria, and pyuria, indicating infection. - Prescribed Cephalexin 500 mg orally TID for 7 days; sent prescription to [facility] - Sent urine sample for culture to confirm appropriate antibiotic coverage. - Advised increased water intake to aid in symptom relief and prevent recurrence. - Patient to monitor symptoms; improvement expected within 24 hours of antibiotic initiation. - Follow-up with your PCP in 3-5 days if symptoms have not improved or sooner if symptoms worsen - Discussed red flags and need for immediate medical evaluation if any occur. - Discussed supportive care treatment with fluids, rest and analgesia. - Discussed expected course of illness Zayda Jackson APRN.[employer] and Recording using [employer] software for draft documentation of the visit was discussed with the patient/authorized telephone services sales representative; all questions welcomed and answered. Patient/authorized telephone services sales representative agreed to proceed Disposition The patient was discharged. Procedures documented in this encounter [facility] 07-16-2024 Telephone encounter Note Did not see request till end of the day. The lorazepam was last filled in May. The other meds were just recently filled. The following approved medication requests have been transmitted electronically. Requested Prescriptions Signed Prescriptions Disp Refills LORazepam (ATIVAN) 1 mg tablet 30 tablet 0 Sig: Take 0.5-1 tablets by mouth once daily as needed for anxiety for up to 30 days. Authorizing Provider: ERICA CANNON mometasone-formoterol (DULERA) 200-5 mcg/actuation inhaler 1 each 2 Sig: Inhale 1 puff as instructed two times a day. Rinse mouth after use. Authorizing Provider: ERICA CANNON venlafaxine ER (EFFEXOR XR) 75 mg 24 hr capsule 90 capsule 3 Sig: Take 1 capsule by mouth once daily. Authorizing Provider: ERICA CANNON MD [facility] 07-16-2024 Miscellaneous Notes Did not see request till end of the day. The lorazepam was last filled in May. The other meds were just recently filled. The following approved medication requests have been transmitted electronically. Requested Prescriptions Signed Prescriptions Disp Refills LORazepam (ATIVAN) 1 mg tablet 30 tablet 0 Sig: Take 0.5-1 tablets by mouth once daily as needed for anxiety for up to 30 days. Authorizing Provider: ERICA CANNON mometasone-formoterol (DULERA) 200-5 mcg/actuation inhaler 1 each 2 Sig: Inhale 1 puff as instructed two times a day. Rinse mouth after use. Authorizing Provider: ERICA CANNON venlafaxine ER (EFFEXOR XR) 75 mg 24 hr capsule 90 capsule 3 Sig: Take 1 capsule by mouth once daily. Authorizing Provider: ERICA CANNON MD Pt reports [facility] closes today and will not re-open until Tu. Asking provider to send these within the hour, because pt is in [place] right now. The patient has been identified by name and date of : Yes Caregiver verified no other encounters exist for this prescription request: Yes Caregiver confirmed with patient/requestor that no other refills are due, in the near future, with this provider at this time: Yes The last office visit in the department: 05/07/2024 Does the patient have a future office visit with this provider/department: Yes 08/16/2024 Requested Prescriptions Pending Prescriptions Disp Refills LORazepam (ATIVAN) 1 mg tablet 30 tablet 0 Sig: Take 0.5-1 tablets by mouth once daily as needed for anxiety for up to 30 days. mometasone-formoterol (DULERA) 200-5 mcg/actuation inhaler 1 each 2 Sig: Inhale 1 puff as instructed two times a day. Rinse mouth after use. venlafaxine ER (EFFEXOR XR) 75 mg 24 hr capsule 90 capsule 3 Sig: Take 1 capsule by mouth once daily. Shant Boyle RN July 16, 2024 11:05 AM documented in this encounter [facility] 07-16-2024 Evaluation note Diagnosis Onset Date Resolution LUQ pain chronic July 16, 2024 10:24am [facility] Work Phone: [phone]) 166-894305-23-2025 Telephone encounter Note* Telephone Encounter - Shant Boyle RN - 07/16/2024 11:03 AM EDT Pt reports [facility] closes today and will not re-open until Tu. Asking provider to send these within the hour, because pt is in [place] right now. The patient has been identified by name and date of : Yes Caregiver verified no other encounters exist for this prescription request: Yes Caregiver confirmed with patient/requestor that no other refills are due, in the near future, with this provider at this time: Yes The last office visit in the department: 05/07/2024 Does the patient have a future office visit with this provider/department: Yes 08/16/2024 Requested Prescriptions Pending Prescriptions Disp Refills LORazepam (ATIVAN) 1 mg tablet 30 tablet 0 Sig: Take 0.5-1 tablets by mouth once daily as needed for anxiety for up to 30 days. mometasone-formoterol (DULERA) 200-5 mcg/actuation inhaler 1 each 2 Sig: Inhale 1 puff as instructed two times a day. Rinse mouth after use. venlafaxine ER (EFFEXOR XR) 75 mg 24 hr capsule 90 capsule 3 Sig: Take 1 capsule by mouth once daily. Shant Boyle RN July 16, 2024 11:05 AM T [facility]05-13-2025 Telephone encounter Note* Telephone Encounter - Chayito Boyd MA - 07/06/2024 9:35 AM EDT Patient has been identified by name and date of : yes Patient phones for refill(s): Requested Prescriptions Pending Prescriptions Disp Refills dicyclomine (BENTYL) 10 mg capsule 120 capsule 5 Sig: Take 1 capsule by mouth before meals and at bedtime. buPROPion XL (WELLBUTRIN XL) 300 mg 24 hr tablet 30 tablet 3 Sig: Take 1 tablet by mouth once daily. metFORMIN ER (GLUCOPHAGE XR) 500 mg 24 hr tablet 30 tablet 2 Sig: Take 1 tablet by mouth once daily. cyclobenzaprine (FLEXERIL) 5 mg tablet 90 tablet 1 Sig: Take 1-2 tablets by mouth three times a day as needed for muscle spasm. Date of last office visit in primary care: 05/07/2024 Date of next office visit in primary care: 08/16/2024 Please advise. Thank you. Chayito Boyd MA. [facility]05-13-2025 Miscellaneous Notes* Telephone Encounter - Chayito Boyd MA - 07/06/2024 9:35 AM EDT Patient has been identified by name and date of : yes Patient phones for refill(s): Requested Prescriptions Pending Prescriptions Disp Refills dicyclomine (BENTYL) 10 mg capsule 120 capsule 5 Sig: Take 1 capsule by mouth before meals and at bedtime. buPROPion XL (WELLBUTRIN XL) 300 mg 24 hr tablet 30 tablet 3 Sig: Take 1 tablet by mouth once daily. metFORMIN ER (GLUCOPHAGE XR) 500 mg 24 hr tablet 30 tablet 2 Sig: Take 1 tablet by mouth once daily. cyclobenzaprine (FLEXERIL) 5 mg tablet 90 tablet 1 Sig: Take 1-2 tablets by mouth three times a day as needed for muscle spasm. Date of last office visit in primary care: 05/07/2024 Date of next office visit in primary care: 08/16/2024 Please advise. Thank you. Chayito Boyd MA. * Telephone Encounter - Ora Brice - 07/06/2024 9:13 AM EDT Prescription Refill Information The patient has been identified by name and date of : Yes Caregiver verified no other encounters exist for this prescription request: Yes Caregiver confirmed with patient/requestor that no other refills are due, in the near future, with this provider at this time: Yes The last office visit in the department: 06-23-24 Does the patient have a future office visit with this provider/department: Yes Requested Prescriptions Pending Prescriptions Disp Refills dicyclomine (BENTYL) 10 mg capsule 120 capsule 5 Sig: Take 1 capsule by mouth before meals and at bedtime. buPROPion XL (WELLBUTRIN XL) 300 mg 24 hr tablet 30 tablet 3 Sig: Take 1 tablet by mouth once daily. metFORMIN ER (GLUCOPHAGE XR) 500 mg 24 hr tablet 30 tablet 2 Sig: Take 1 tablet by mouth once daily. cyclobenzaprine (FLEXERIL) 5 mg tablet 90 tablet 1 Sig: Take 1-2 tablets by mouth three times a day as needed for muscle spasm. Ora Sylvester July 06, 2024 9:14 AM [facility] Tele[facility] encounter Note * Telephone Encounter - Ora Brice - 07/06/2024 9:13 AM EDT Prescription Refill Information The patient has been identified by name and date of : Yes Caregiver verified no other encounters exist for this prescription request: Yes Caregiver confirmed with patient/requestor that no other refills are due, in the near future, with this provider at this time: Yes The last office visit in the department: 06-23-24 Does the patient have a future office visit with this provider/department: Yes Requested Prescriptions Pending Prescriptions Disp Refills dicyclomine (BENTYL) 10 mg capsule 120 capsule 5 Sig: Take 1 capsule by mouth before meals and at bedtime. buPROPion XL (WELLBUTRIN XL) 300 mg 24 hr tablet 30 tablet 3 Sig: Take 1 tablet by mouth once daily. metFORMIN ER (GLUCOPHAGE XR) 500 mg 24 hr tablet 30 tablet 2 Sig: Take 1 tablet by mouth once daily. cyclobenzaprine (FLEXERIL) 5 mg tablet 90 tablet 1 Sig: Take 1-2 tablets by mouth three times a day as needed for muscle spasm. Ora Sylvester July 06, 2024 9:14 AM [facility]05-02-2025 Telephone encounter Note* Telephone Encounter - Rayna Malave MA - 06/25/2024 9:45 AM EDT Patient notified of results, verbalized understanding of instructions given. Rayna Malave MA [facility]05-02-2025 Miscellaneous Notes* Telephone Encounter - Rayna Malave MA - 06/25/2024 9:45 AM EDT Patient notified of results, verbalized understanding of instructions given. Rayna Malave MA * Telephone Encounter - Rayna Malave MA - 06/25/2024 9:42 AM EDT ----- Message from Freeman Lundy APRN.CNP sent at 06/25/2024 9:34 AM EDT ----- Please inform patient that the urine culture was nonspecific showing no specific signs of urinary tract infection. She may continue to take the antibiotics as prescribed if she feels they are improving her symptoms and otherwise she should follow-up closely with her PCP. [facility] Telephone encounter Note * Telephone Encounter - Rayna Malave MA - 06/25/2024 9:42 AM EDT ----- Message from Freeman Lundy APRN.CNP sent at 06/25/2024 9:34 AM EDT ----- Please inform patient that the urine culture was nonspecific showing no specific signs of urinary tract infection. She may continue to take the antibiotics as prescribed if she feels they are improving her symptoms and otherwise she should follow-up closely with her PCP. [facility]04-30-2025 Instructions* Patient Instructions* Brenda Monaco APRN.CNP - 06/23/2024 8:09 PM EDT We will contact you if we need to change your treatment. GENERAL INFORMATION: A urinary tract infection (UTI) is an infection of the bladder or kidneys. A bladder infection, called cystitis, is the more common type. If the infection travels up to the kidneys, it is called pyelonephritis. This can be more serious. UTIs are a common problem in women. Having sexual relations can leave a woman more susceptible to developing a UTI, but it is not sexually transmitted like gonorrhea. Some women have a problem with recurrent UTIs. INSTRUCTIONS: - Your provider prescribed an antibiotic to treat the UTI. Take exactly as directed. Be sure to take all the medication prescribed, even if your symptoms disappear. If you stop treatment early, the infection may not be fully treated and the symptoms could come back again. - Get plenty of rest. You may take acetaminophen for fever and aches. - Drink 6 to 8 glasses of fluids, especially water, every day. This helps wash out germs from your urinary tract. Cranberry juice or other sources of vitamin C are also good for you. - Urinate often, as soon as you feel the urge. Empty your bladder completely. Urinate before and after you have sex. - Always wipe from front to back after going to the bathroom. This pushes germs away from your bladder, rather than towards it. - Showers are better than baths, and you should wash the genital area daily. Avoid bubble bath or bath oils if you do take a bath. - Wear underwear and pantyhose with a cotton crotch. CALL YOUR DOCTOR IF: - You have a temperature over 102F (38.8C) after 48 hours on medication. - You notice blood in your urine. - Your symptoms don't improve in 2 days. - You develop nausea, vomiting, diarrhea, or a rash. - You develop new or unexplained symptoms. These may be related to the medication you are taking. - Your symptoms return after you finish treatment. GO TO THE EMERGENCY DEPARTMENT IF YOU: - experience pressure or pain in your chest - experience difficulty swallowing - experience difficulty breathing - develop vomiting and can't keep your medication or fluids down. Follow up with your physician in 5-7 days or before if your symptoms get worse. Thank you for coming to [facility] today. I appreciate your confidence in choosing the [facility] for your medical care. Brenda Monaco APRN.CNP [facility] [address] [phone] [facility] History of Present illness Narrative* Brenda Monaco APRN.CNP - 06/23/2024 8:08 PM EDT Images from the original note were not included. [facility] PATIENT NAME: Meggan Arita DATE OF : 1960 TODAYS' DATE: 06/23/2024 Subjective: Ms. Arita is a 63 year old female The patient is a 63-year-old female with a history of recurrent UTIs, presenting with with complaints of dysuria, urinary frequency, and urgency. History of Present Illness: Urinary Tract Infection: - Dysuria, urinary frequency, and urgency x3 days. - Denies fever, chills, nausea, emesis, or diarrhea. - Reports hematuria and leukocytes on urine dipstick. - Denies adequate water intake; primarily consumes diet probiotic sodas. - Denies drinking water, but chews on ice. - History of recurrent UTIs; last episode 2-3 months ago, treated with Keflex. Review of Systems: Constitutional: (-) fever, (-) chills Gastrointestinal: (-) nausea, (-) vomiting, (-) diarrhea Genitourinary: (+) dysuria, (+) urinary frequency, (+) urinary urgency, (+) hematuria, (+) pelvic cramping Allergies: Allergies: Ciprofloxacin Diarrhea Comment:Nausea and diarrhea Mounjaro [Tirzepati* Diarrhea, Vomiting Comment:Hospitalized with dehydration and acute kidney injury.Did tolerate Trulicity Buspar [Buspirone H* Other: See Comments Comment:Insomnia Carafate [Sucralfat* Comment:tightens up chest unable to swallow Celebrex [Celecoxib] Other: See Comments Comment:tachycardia, heart palpitations Cheratussin Itching Codeine GI Upset Comment:sick to her stomach but able to tolerate in Tylenol with codeine #3 Doxycycline Intolerance, Vomiting Iodine Comment:difficulty breathing, swelling, hives Latex Comment:difficulty breathing and swelling Levaquin [Levofloxa* GI Upset Meloxicam Rash Comment:pruritic rash within hours of taking med Penicillins Swelling, Shortness of Breath Prednisone Mental Status Change Vicodin [Hydrocodon* Itching Comment:swelling Past Medical History: PAST MEDICAL HISTORY Diagnosis Date Acute gastritis without mention of hemorrhage ALLERGIC RHINITIS NOS 07/15/2007 ANXIETY STATE NOS 12/09/2006 Carpal tunnel syndrome 04/10/2007 Bilateral symptoms with the left worse than the right as of 2-08 CHOLELITH W CHOLECYS NEC 02/07/2005 Lap favio in 1-06 Chronic hepatitis, unspecified (HCC) 03/06/2005 Depression Edema 06/01/2007 Admit 07-08-08 for RLE venous stasis ulcer on Cubicin. Put pt on disability from 08-03-08 to 11-24-08 Esophageal reflux GENERAL OSTEOARTHROSIS 10/29/2006 Headache(784.0) 01/20/2007 [facility] Rheum 12-26: consid Sjogren's, CT chest/MRI head/HYUN/KEO/OSMANY/ANCA/SSA/SSB neg Again reinforced the need to start CPAP on 03-04-07: unable to afford as of 04-03 for insurance issues INSOMNIA NOS 07/31/2007 IRON DEFIC ANEMIA NOS 01/20/2007 Colon 03-22-02 ([facility]): no polyps, masses or AVMs Lactose intolerance Low blood potassium 10/20/2014 Low magnesium level 07/08/2016 Morbid obesity (HCC) Obesity, unspecified Obstructive sleep apnea Other dyspnea and respiratory abnormality Primary osteoarthritis of both knees 03/08/2020 severe narrowing of the medial joint space with marginal osteophytes--x-ray knee 2016 SPINAL STENOSIS-LUMBAR 07/09/2007 Stasis edema with ulcer (HCC) 08/02/2013 Type II or unspecified type diabetes mellitus without mention of complication, not stated as uncontrolled 08/05/2007 Unspecified asthma(493.90) Unspecified essential hypertension Past Surgical History: PAST SURGICAL HISTORY Procedure Laterality Date BIOPSY LIVER NEEDLE PERCUTANEOUS 03/06/05 DELIVERY ONLY 1980 , low cervical DELIVERY ONLY 1980 , low cervical DELIVERY ONLY 1986 , low cervical COLONOSCOPY FLX DX W/COLLJ SPEC WHEN PFRMD 01/30/16 Colonoscopy [facility] outpt EGD TRANSORAL BIOPSY SINGLE/MULTIPLE 07/22/06 ESOPHAGOGASTRODUODENOSCOPY TRANSORAL DIAGNOSTIC 2001 EGD ESOPHAGOGASTRODUODENOSCOPY TRANSORAL DIAGNOSTIC 01/30/16 EGD [facility] outpt IMPLANT MESH OPN HERNIA RPR/DEBRIDEMENT CLOSURE 03/06/05 LAPAROSCOPY SURG RPR INITIAL INGUINAL HERNIA 03/06/05 LAPS SURG CHOLECYSTECTOMY W/CHOLANGIOGRAPHY 03/06/05 LIG/TRNSXJ FLP TUBE ABDL/VAG APPR UNI/BI 1986 Tubal ligation OPTX ANKLE DISLOCATION W/REPAIR/INT/XTRNL FIXJ ORIF Ankle Family History: FAMILY HISTORY Problem Relation Age of Onset other (CVA) Father Heart Mother Diabetes Mother Tobacco History: Tobacco Use: Never Medications: Current Outpatient Medications Medication Sig Dispense Refill potassium chloride ER (KLOR-CON) 20 mEq tablet Take 1 tablet by mouth two times a day. As directed 60 tablet 5 LORazepam (ATIVAN) 1 mg tablet Take 0.5-1 tablets by mouth once daily as needed for anxiety for up to 30 days. 30 tablet 0 Zinc Acetate, Oral, 25 mg (zinc) cap Take 1 capsule by mouth once daily. 90 capsule 1 ascorbic acid, vitamin C, (VITAMIN C) 500 mg tablet Take 1 tablet by mouth once daily. 90 tablet 1 atorvastatin (LIPITOR) 10 mg tablet Take 1 tablet by mouth once daily. 90 tablet 1 cyclobenzaprine (FLEXERIL) 5 mg tablet Take 1-2 tablets by mouth three times a day as needed for muscle spasm. 90 tablet 1 mometasone-formoterol (DULERA) 200-5 mcg/actuation inhaler Inhale 1 Puff as instructed two times a day. Rinse mouth after use. 1 Each 2 polyethylene glycol 3350 (MIRALAX) 17 gram/dose powder 2 scoop in liquid daily as needed for bowel movement 17 g 11 diclofenac (VOLTAREN) 1 % topical gel Apply 4 g to affected area four times daily. 450 g 2 topiramate (TOPAMAX) 100 mg tablet Take 1 tablet by mouth two times a day. 180 tablet 3 Cholecalciferol, Vitamin D3, 125 mcg (5,000 unit) cap Take 1 capsule by mouth once daily. 90 capsule 3 metFORMIN ER (GLUCOPHAGE XR) 500 mg 24 hr tablet Take 1 tablet by mouth once daily. 30 tablet 2 tirzepatide (MOUNJARO) 15 mg/0.5 mL pen injector Inject 15 mg subcutaneously one time a week. 4 Each 2 ferrous sulfate (IRON) 325 mg (65 mg iron) tablet Take 1 tablet by mouth once daily. 90 tablet 1 buPROPion XL (WELLBUTRIN XL) 300 mg 24 hr tablet Take 1 tablet by mouth once daily. 30 tablet 3 dicyclomine (BENTYL) 10 mg capsule Take 1 capsule by mouth before meals and at bedtime. 120 capsule5 montelukast (SINGULAIR) 10 mg tablet Take 1 tablet by mouth daily at bedtime. 30 tablet 11 OXYGEN, HOME THERAPY, 2 L/min by Nasal Cannula route as directed. Using on average 8 hours during the daytime and then at night bled in to PAP machine. WALKER ROLLATOR SEAT WITH 6" WHEELS - RED Diagnosis: Unsteady gait, primary osteoarthritis both knees, decreased mobility 1 Each 0 furosemide (LASIX) 20 mg tablet TAKE 1-2 TABLETS BY MOUTH ONCE DAILY NEEDED FOR EDEMA/ FLUID RETENTION 60 tablet 10 albuterol (PROVENTIL) 2.5 mg /3 mL (0.083 %) nebulizer solution inhale contents of one vial in nebulizer every 6 hours if needed for wheezing and shortness of breath 300 mL 5 fluticasone (FLONASE) 50 mcg/actuation nasal spray Use 2 Sprays in each nostril once daily as needed. [address] (PROTONIX) 40 mg tablet Take 1 tablet by mouth once daily. 90 tablet 3 losartan (COZAAR) 100 mg tablet Take 1 tablet by mouth once daily. 90 tablet 3 ipratropium (ATROVENT) 0.02 % nebulizer solution Use 2.5 mL via nebulizer four times a day as needed (wheezing). Use over 5-15minutes. Use in addition to albuterol nebulizer. 250 mL 5 nystatin (MYCOSTATIN) powder Apply 1 application to affected area four times daily. 60 g 11 Lancets Test blood sugar(s) 4 times daily. Dx: Type 2 DM - Controlled E11.9 Insulin: No 200 Each 11 venlafaxine ER (EFFEXOR XR) 75 mg 24 hr capsule Take 1 capsule by mouth once daily. 90 capsule 3 albuterol HFA (PROVENTIL HFA, VENTOLIN HFA) 90 mcg/actuation inhaler Inhale 2 Puffs as instructed every 4 hours as needed for wheezing/shortness of breath. 1 Each 1 blood sugar diagnostic (BLOOD GLUCOSE TEST) test strip Test blood sugar(s) 4 times daily. Dx: Type 2 DM - Controlled E11.9 Insulin: No 50 Strip 11 blood sugar diagnostic (RELION PRIME TEST STRIPS) test strip Test glucose 4 x per day. Dx: E11.9. Insulin use: no 50 Strip 0 Blood Pressure Test Kit-Large (QUICK RESPONSE BP MONITOR) Check blood pressure daily or as needed. I10 Hypertension 1 Each 0 Diaper,Brief, Adult,Disposable (DISPOSABLE BRIEF) Bariatric Briefs - Prevail #10 (thickest brief). 5 per day. 150 Each 1 blood sugar diagnostic (BLOOD GLUCOSE TEST) test strip Test blood sugar(s) four times daily. Dx: Type 2 DM - Controlled E11.9 Insulin: No 150 Strip 11 CPAP AutoPAP 5-12 CM H2O with humidification. Mask (per patient preference) optional chin strap (ifindicated) , filters, tubing, humidifier and lifetime supplies. 1 Device 0 Miscellaneous Medical Supply Order: Overnight pulse ox on 4LPM Diagnosis: R09.02 (checking if needsO2 increased at night) 1 Each 0 Blood-Glucose Meter (FREESTYLE FREEDOM LITE) monitoring kit 1 Each as needed. 1 Each 0 COMPOUNDED PRESCRIPTION TENS Unit 4 lead. Use as directed. Needs refills for leads 1 per month as needed Dispense 1 with 5 refills. (M48.06) Spinal stenosis, lumbar region, without neurogenic claudication 1 Each 0 Nebulizer NEBULIZER FOR HOME USE. DX: (J45.20) Mild intermittent asthma without complication 1 Device 0 metOLazone (ZAROXOLYN) 5 mg tablet Take 1 tablet by mouth once daily as needed. Take 1/2 hour before lasix. (Patient not taking: Reported on 01/29/2023) 30 tablet 2 No current facility-administered medications for this visit. Vitals: BP 126/78 Pulse 86 Temp 36.3 C (97.4 F) Resp 18 Wt 123.4 kg (272 lb) LMP 02/11/2011 SpO2 99% BMI 40.17 kg/m Physical Exam: Physical Exam Vitals and nursing note reviewed. Constitutional: General: She is not in acute distress. Cardiovascular: Rate and Rhythm: Normal rate and regular rhythm. Pulmonary: Effort: Pulmonary effort is normal. Breath sounds: Normal breath sounds. Neurological: Mental Status: She is alert. Psychiatric: Behavior: Behavior is cooperative. Labs: Results for orders placed or performed in visit on 06/23/24 UA DIP, URINE (POC) Result Value Ref Range GLUCOSE UA (POCT) Negative Negative mg/dL BILIRUBIN UA (POCT) Negative Negative KETONE UA (POCT) Negative Negative mg/dL SPECIFIC GRAVITY UA (POCT) 1.025 1.005 - 1.030 HEMOGLOBIN/BLOOD UA (POCT) Moderate (A) Negative PH UA (POCT) 5.5 4.5 - 8.0 PROTEIN UA (POCT) 100 (A) Negative mg/dL UROBILINOGEN UA (POCT) 0.2 Normal E.U./dL NITRITE UA (POCT) Negative Negative LEUKOCYTES UA (POCT) Trace (A) Negative COLOR UA (POCT) Yellow CLARITY UA (POCT) Clear *Note: Due to a large number of results and/or encounters for the requested time period, some results have not been displayed. A complete set of results can be found in Results Review. Urine Culture-pending Procedures ASSESSMENT/PLAN: 1. Acute cystitis with hematuria - ICD9: 595.0, ICD10: N30.01 (primary diagnosis) -increase fluids - NITROFURANTOIN MONOHYDRATE & MACROCRYSTAL 100 MG ORAL CAP 2. Urinary frequency - ICD9: 788.41, ICD10: R35.0 acute - UA positive for deloris esterase and hematuria - Patient education for prevention given - UA DIP, URINE (POC) - BACTERIAL CULTURE, URINE - See patient instructions for further recommendations. - Pt education along with discharge instructions given to pt - Discussed Red Flag signs and when to go to ER. - Pt agreeable with plan and verbalizes understanding. - Follow up with PCP if symptoms worsen or do not improve in the next 2-3 days. Recording using [employer] software for draft documentation of the visit was discussed with the patient/authorized telephone services sales representative; all questions welcomed and answered. Patient/authorized telephone services sales representative agreed to proceed Brenda Monaco APRN.CNP 06/23/24 8:08 PM History and Record Review Clinical information obtained from an independent historian. History obtained from or confirmed by:spouse. Differential Diagnoses - Acute Cystsitis is more likely for the following reason(s): suggested by H&P and consistent with laboratory studies Disposition The patient was discharged. Medical Decision Making: Problems: Minimal: Self-limited or minor problem Data: Unique test result(s) reviewed: 1 Unique test(s) ordered: 2 Risk: Low: Low risk from testing/treatment Moderate: Drug management Medical Decision Making Level: 4 - Moderate [facility] Miscellaneous Notes* Telephone Encounter - Lauren Seo RN - 06/23/2024 7:31 PM EDT Pt called back in and states she is headed in to [facility] now and should be here in 10 mins. Appt cancelled for tomorrow with Lydia North. * Telephone Encounter - Lauren Seo RN - 06/23/2024 7:22 PM EDT Pt calling in stating she has a hx of frequent UTIs and thinks she has another one now. Pt has had symptoms for a couple of days. Pt c/o pressure, urgency, burning, cramping, frequency and states shefeels the urge to go, but only a tiny amount comes out. Also having some abd discomfort down low. Pt encouraged to come to [facility] immediately. Pt declines. States she can't do that. She gets these often and just needs an order to come and cone picker a cup to take home and get the urine sample and bring it back in. That is what she usually does. Pt informed that we need to see her in order to get a urine sample, exam her and prescribe meds if needed. Pt refused to come in tonight or first thing in the morning. States earliest she could get here would be 9 am. Encouraged pt to make it in by 840 am-booked with Lydia North. [facility] Telephone encounter Note * Telephone Encounter - Lauren Seo RN - 06/23/2024 7:31 PM EDT Pt called back in and states she is headed in to [facility] now and should be here in 10 mins. Appt cancelled for tomorrow with Lydia [facility]. [facility] Telephone encounter Note* Telephone Encounter - Lauren Seo RN - 06/23/2024 7:22 PM EDT Pt calling in stating she has a hx of frequent UTIs and thinks she has another one now. Pt has had symptoms for a couple of days. Pt c/o pressure, urgency, burning, cramping, frequency and states shefeels the urge to go, but only a tiny amount comes out. Also having some abd discomfort down low. Pt encouraged to come to [facility] immediately. Pt declines. States she can't do that. She gets these often and just needs an order to come and cone picker a cup to take home and get the urine sample and bring it back in. That is what she usually does. Pt informed that we need to see her in order to get a urine sample, exam her and prescribe meds if needed. Pt refused to come in tonight or first thing in the morning. States earliest she could get here would be 9 am. Encouraged pt to make it in by 840 am-booked with Lydia [facility]. [facility]04[facility] Instructions* Patient Instructions* Tom Bolaños - 06/22/2024 11:24 AM EDT Images from the original note were not included. Diabetes Foot Care Instructions When you have diabetes, proper foot care is very important. Poor foot care may lead to amputation of a foot or leg. As a person with diabetes, you are more vulnerable to foot problems, because diabetes can damage your nerves and reduce blood flow to your feet. Here are some diabetes foot care tips to follow: Wash and Dry Your Feet Daily Use mild soaps Use warm water Pat your skin dry; do not rub. Thoroughly dry your feet. After washing, use lotion on your feet to prevent cracking. Do not put lotion between your toes. Examine Your Feet Each Day Check the tops and bottoms of your feet. Have someone else look at your feet if you cannot see them. Check for dry, cracked skin. Look for blisters, cuts, scratches, or other sores. Check for redness, increased warmth, or tenderness when touching any area of your feet. Check for ingrown toenails, corns, and calluses. If you get a blister or sore from your shoes, do not "pop" it. Apply a bandage and wear a differentpair of shoes. Take Care of Your Toenails Cut toenails after bathing, when they are soft. Cut toenails straight across and smooth with a nail file. Avoid cutting into the corners of toes. Do not cut cuticles. If you have neuropathy (or decreased sensation in your feet) a clinical geneticist should always cut your toenails. Be Careful When Exercising Walk and exercise in comfortable shoes. Do not exercise when you have open sores on your feet. Protect Your Feet With Shoes and Socks Never go barefoot. Always protect your feet by wearing shoes or hard-soled slippers or footwear. Avoid shoes with high heels and pointed toes. Avoid shoes that expose your toes or heels (such as open-toed shoes or sandals). These types of shoes increase your risk for injury and potential infections. Try on new footwear with the type of socks you usually wear. Do not wear new shoes for more than an hour at a time. Change your socks daily. Look and feel inside your shoes before putting them on to make sure there are no foreign objects orrough areas. Avoid tight socks. Wear natural-fiber socks (cotton, wool, or a cotton-wool blend). Wear special shoes if your health care provider recommends them. Wear shoes/boots that will protect your feet from various weather conditions (cold, moisture, etc.). Make sure your shoes fit properly. If you have neuropathy (nerve damage), you may not notice that your shoes are too tight. Perform the "footwear test" described below. Footwear Test Use this simple test to see if your shoes fit correctly: Stand on a piece of paper. (Make sure you are standing and not sitting, because your foot changes shape when you stand.) Trace the outline of your foot. Trace the outline of your shoe. Compare the tracings: Is the shoe too narrow? Is your foot crammed into the shoe? The shoe should be at least 1/2 inch longer than your longest toe and as wide as your foot. Proper Shoe Choices The following types of shoes are best for people with diabetes Closed toes and heels Leather uppers without a seam inside At least 1/2 inch extra space at the end of your longest toe Inside of shoe should be soft with no rough areas Outer sole should be made of stiff material Shoes should be at least as wide as your feet Tips for Foot Care in Diabetes Don't wait to treat a minor foot problem if you have diabetes. Follow your health care provider's guidelines and first aid guidelines. Report foot injuries and infections to your health care provider immediately. Check water temperature with your elbow, not your foot. Do not use a heating pad on your feet. Do not cross your legs. Do not self-treat your corns, calluses, or other foot problems. Go to your health care provider or clinical geneticist to treat these conditions. What is Plantar Fasciitis? Plantar fasciitis is the most common cause of heel pain. The pain is caused by inflammation of the plantar fascia. If you strain your plantar fascia, it becomes weak, swollen and irritated (inflamed). The resulting pain may be isolated in the heel or may appear at different points on the bottom of the foot, from time to time; it may occur in one foot or both. Some think that plantar fasciitis pain is caused by irritation of nerves from tissue swelling or inflammation, but it is debatable. Plantar fasciitis is common in middle-aged people; it also occurs in younger people who are on their feeta lot, such as athletes or soldiers. The plantar fascia is a strong band of connective tissue that extends from the base of the toes, along the bottom of the foot, to the bottom of the heel (calcaneous bone); it acts like a bowstring tomaintain the arch of the foot. What are heel spurs? The inflammatory reaction of the heel bone may produce spike-like projections of new bone, called heel spurs. The spurs sometimes show on X-rays. They neither cause the initial pain nor do they causethe initial problem. However, later, having to walk on spurs may cause sharp pain. What causes plantar fasciitis? Plantar fasciitis is caused by straining the ligament that supports your arch. Repeated strain can cause tiny tears in the ligament. These lead to pain and swelling. During walking, the plantar fascia experiences tension up to twice the body weight with each step. While this is normal, those who spend much time on their feet, such as nurses, housekeeping room attendant/waiters, andmail carriers, often experience plantar fasciitis. Athletes involved in tennis or other racquet sports, race walking, jogging or running also show a higher incidence of plantar fasciitis than do those participating in other activities. Thus, it's clear that plantar fasciitis is predominantly an overuse injury. In fact, any activity that results in prolonged tension and stress on the plantar fascia may cause plantar fasciitis. It is possible that changes in footwear may play a role in causing plantar fasciitis, no matter what activity is occurring. Those who are overweight are prone to plantarfasciitis. This is true even for sedentary people who get little physical activity. Abnormalities of the foot and ankle joints may predispose some individuals to development of plantar fasciitis (spec ifically, over pronation of the subtalar joint). Contributing Factors * Flat feet * Toe running, hill running * Sudden weight increase * High-arched, rigid feet * Soft terrain, e.g. running on sand * Obesity * Pronated feet (rolled inward) * Sudden increase in activity* Family tendency * Poor shoe support * Worn out or poorly fitted shoes * Increasing age * Walking,standing or running for long periods of time, especially on hard surfaces. How is the Injury Treated? Rest Your Feet: Limit, or if possible, stop activities that are causing your heel pain. Try to avoid running or walking on hard surfaces, such as concrete. Use pain as your guide. If your foot is toopainful, rest it. Ice: Ice the sore area for 30 to 60 minutes, several times a day, to reduce inflammation and relieve pain. Apply a plastic bag of crushed ice (or a bag of frozen peas) over a towel. Ice the sore areafor 15 minutes after activity/exercise. Application of heat is not generally recommended, as heat ex pands the bone and connective tissue, perhaps exerting greater pressure on nerves and thereby increasing pain. If heat is used, follow it with ice. Medication: If your condition developed recently, anti-inflammatory/analgesic medication, combined with heel pads (see below) may be all that is necessary to relieve pain and to reduce inflammation. If no pain relief has occurred after 2- 3 weeks, however, your doctor may inject either cortisone or local anesthetic directly into the tender area. Exercises: Do simple exercises, such as calf stretches and towel stretches (see below) several times a day, especially when you first get up in the morning. These can help your ligament become more flexible and strengthen the muscles that support your arch. Shoes: Poorly fitting shoes can cause plantar fasciitis. The best type of shoe to wear is a good walking or running shoe with good shock absorption and excellent arch support. You should choose the one that fits the best. Commerce with your athletic shoes to find a pair that is comfortable and causes fewer symptoms. Put your shoes on as soon as you get out of bed; going barefoot or wearing slippers may make your pain worse. Good brands include (but are not limited to): New Balance, Asics, Saucony, SAS and Merrel s. Taping: Your doctor may tape your foot to maintain the arch. This takes some of the tension off theplantar fascia. Weight Loss: If your weight is putting extra stress on your feet, your doctor may encourage you to try a weight-loss program. Orthotics: An orthotic insole is a molded piece of rubber, plastic, or other material that you insert into your shoe. It corrects the alignment of your foot and cushions your foot from excessive pounding. These may be prescription or non-prescription. Prescription orthotics are custom-fitted and may fit better and control pain better, but are very expensive. Night Splints: A night splint holds the foot with the toes pointed up and the ankle at a 90-degree angle. This position applies a constant, gentle stretch to the plantar fascia. Corticosteroid Shots: Steroids may be injected into the tender area to reduce inflammation. REHAB Exercises to stretch the plantar fascia, the calf muscles, and the Achilles tendon. Tightness of the muscles of the calves may contribute to plantar fasciitis, so stretching the calf muscles is important to rehabilitation, as is stretching of the plantar fascia itself. Plantar fascial stretches Assisted Dorsiflexion/Plantar Fascia Stretch: Sit on the floor or ground, barefoot, with both legs outstretched. Use a towel or elastic band and wrap it around the ball (and not the toes) of the affected foot. Use the towel or elastic band to provide resistance to upward movement of the forefoot. Pull foot upward (toward your body) with the help of the elastic band or towel, and then return to the starting position. Ten repetitions are recommended. Perform the sequence at least three times a day. Alternate Plantar Fascia Stretch: Sit upright in a chair, barefoot. Place the ankle of the affectedfoot on your opposite knee. Using the same hand as the affected foot, reach across and grab the toes. Flex the ankle toward and pull the toes toward the diallo. To test the stretch, place the thumb of your hand on the bottom of the foot. You should be able to feel the cord-like plantar fascia, running the length of the foot. Hold the stretch for a count of 10, then relax. Repeat 10 times. Do the sequence at least three times a day. Achilles/Calf Stretches Strengthening the muscles of the calves may contribute to successful rehabilitation of plantar fasciitis, as well as prevent reoccurrence. The exercises below will help strengthen the calf muscles. Calf and Achilles Tendon Stretch (Gastrocnemius Stretch): Face a wall, standing an arm's length away. Place one foot back. Place both hands on the wall. Bend the elbows and knee of your forward leg, keeping the heel of the backward foot on the floor and keeping your body straight (aligned), until your forehead nearly touches the wall, or until significant stretch is felt in the muscles of the calf of the backward leg. Hold this position for 10 to 15 seconds. Extend elbows (straighten your arms and stand upright again) and maintain this position for 10 seconds. Repeat this cycle 15 to 20 times. Switch legs and repeat the exercise. Powerstep Original Full length. Can purchase at [facility] [employer] and boots,shoes and more here in [place], [employer] in [place] or [place]. Also can find in [place] in [facility]. Powersteps can also be purchased online, starting around $45.00 If you have a metatarsal or dancer pad for your feet apply the pad directly to the insole so you can interchange between your shoes. Find a shoe with a removable insole and take this out and replace with your powerstep insole. Always bring powersteps with you when shopping for shoes so that you can make sure that everything fits well together [facility] NoteH[facility] History of Present illness Narrative* Tom Bolaños - 06/22/2024 11:23 AM EDT Last saw pcp: 05/07/24 Subjective: Patient presents to clinic c/o painful toenails. They state that the nails are especially painful with shoe gear and pressure. Patient states that nails 1-5 b/l are painful. Patient admits to being diabetic. Reports b/l heel pain. Worse after periods of rest. No other pedal complaints at this time. Patient states no change in medications or medical history since last visit. Objective: Patient presents to clinic nonambulatory Vasc: DP and PT pulses are palpable bilateral. CFT is less than 5 seconds bilateral. Skin temperature is warm to cool proximal to distal bilateral. There is moderate edema or varicosities noted. Neuro: Protective sensation is intact to the foot and toes when tested with the 5.07 SWM bilateral.Vibratory sensation is absent at the hallux IPJ bilateral. - tinel b/l. The hallux is downgoing bilateral. Derm: Nails 1-5 b/l are painful, discolored-yellow, thick, crumbly, dystrophic and with subungal debris. Skin is of normal turgor, texture and hair growth is decreased bilateral. There are no hyperkeratosis, ulcerations, scars, verruca or other lesions noted. Ortho: Muscle strength is 5/5 for all pedal groups tested. Ankle joint DF is decreased with the knee extended with no pain or crepitus noted. 1st MPJ ROM is decreased bilateral. + pain to palpation of b/l heel Assessment: (B35.1) Onychomycosis (primary encounter diagnosis) (M79.675) Pain in toe of left foot (M79.674) Pain in toe of right foot (E11.42) Diabetic polyneuropathy associated with type 2 diabetes mellitus (HCC) Plantar fasciitis Plan: Patient was seen and evaluated. Nails 1-5 bilateral were debrided in length and thickness. Patient was instructed on the continued importance of diabetic foot care along with proper diet andkeeping their blood sugar under control to prevent complications. I stressed the importance of avoiding barefoot walking, wearing good shoes and inspection of feet. I discussed how this patient suffers from neuropathy and that it is important that she monitor for any open wounds. If she develops any issues, she is to contact our office immediately and we will have them seen. Discussed heel pain. Recommend stretching, use of inserts, good supportive shoes. Patient is to follow-up in 3 months Tom Bolaños DPM * Christy Ron MA - 06/22/2024 11:18 AM EDT Patient presents with: Left Foot - Established Patient, Pain Right Foot - Pain, Established Patient AMB ROOMING INTAKE FLOWSHEET DATA Patient denies any pain. Fiance' with patient today. PT ASSESSMENT - CASTING ROOM Meggan presents for Application of Gel Powersteps. Applied Gel Powersteps size Women's 11-12 to Bilateral foot powersteps. Patient verbalized understanding. Christy Ron MA [facility] Tele[facility] encounter Note* Telephone Encounter - Sridevi Isabel LPN - 06/08/2024 2:08 PM EDT Office note faxed as requested. [facility]04-15-2025 Miscellaneous Notes* Telephone Encounter - Sridevi Isabel LPN - 06/08/2024 2:08 PM EDT Office note faxed as requested. * Telephone Encounter - Silvestre Jain APRN.CNP - 06/08/2024 1:51 PM EDT I added an addendum to my last note, please send. Thanks. * Telephone Encounter - Maria Dolores Ivan RN - 06/07/2024 11:36 AM EDT Victorina Christensen calls to request OV notes to support order for standard w/c they received. Recent OV notes doesn't mention w/c. Amparo asking if an addendum could be added and faxed to [phone]. Maria Dolores Ivan RN documented [facility]04-[facility]25 Telephone encounter Note * Telephone Encounter - Silvestre Jain APRN.CNP - 06/08/2024 1:51 PM EDT I added an addendum to my last note, please send. Thanks. [facility]04-15-2025 Telephone encounter Note* Telephone Encounter - Ora Brice - 06/08/2024 9:01 AM EDT Prescription Refill Information The patient has been identified by name and date of : Yes Caregiver verified no other encounters exist for this prescription request: Yes Caregiver confirmed with patient/requestor that no other refills are due, in the near future, with this provider at this time: Yes The last office visit in the department: 05-07-24 Does the patient have a future office visit with this provider/department: Yes Requested Prescriptions Pending Prescriptions Disp Refills potassium chloride ER (KLOR-CON) 20 mEq tablet 60 tablet 2 Sig: Take 1 tablet by mouth two times a day. As directed Ora Sylvester June 08, 2024 9:01 AM [facility]04-15-2025 Miscellaneous Notes* Telephone Encounter - Ora Brice - 06/08/2024 9:01 AM EDT Prescription Refill Information The patient has been identified by name and date of : Yes Caregiver verified no other encounters exist for this prescription request: Yes Caregiver confirmed with patient/requestor that no other refills are due, in the near future, with this provider at this time: Yes The last office visit in the department: 05-07-24 Does the patient have a future office visit with this provider/department: Yes Requested Prescriptions Pending Prescriptions Disp Refills potassium chloride ER (KLOR-CON) 20 mEq tablet 60 tablet 2 Sig: Take 1 tablet by mouth two times a day. As directed Ora Sylvester June 08, 2024 9:01 AM documented in [facility]04-[facility]-2025 Telephone encounter Note * Telephone Encounter - Maria Dolores Ivan RN - 06/07/2024 11:36 AM EDT Victorina Christensen calls to request OV notes to support order for standard w/c they received. Recent OV notes doesn't mention w/c. Amparo asking if an addendum could be added and faxed to [phone]. Maria Dolores Ivan RN [facility]04-11-2025 Telephone encounter Note* Telephone Encounter - Sridevi Isabel LPN - 06/04/2024 4:30 PM EDT Order faxed and patient aware of same. [facility]04-11-2025 Miscellaneous Notes* Telephone Encounter - Sridevi Isabel LPN - 06/04/2024 4:30 PM EDT Order faxed and patient aware of same. * Telephone Encounter - Silvestre Jain APRN.CNP - 06/04/2024 4:18 PM EDT Order signed, please send. thanks * Telephone Encounter - Lexii Fowler RN - 06/03/2024 9:19 AM EDT Patient reports her wheelchair is broken and asking if Silvestre Jain CNP would place order for a newone. Pended for review. If agreeable, please fax order to [facility]. Call patient with an update. Thank you. Lexii Fowler RN documented [facility]04-[facility]-2025 Telephone encounter Note * Telephone Encounter - Silvestre Jain APRN.CNP - 06/04/2024 4:18 PM EDT Order signed, please send. thanks [facility]04-10-2025 Telephone encounter Note* Telephone Encounter - Lexii Fowler RN - 06/03/2024 9:19 AM EDT Patient reports her wheelchair is broken and asking if Silvestre Jain CNP would place order for a newone. Pended for review. If agreeable, please fax order to [facility] [place]. Call patient with an update. Thank you. Lexii Fowler RN [facility]04-07-2025 Telephone encounter Note* Telephone Encounter - Shant Boyle RN - 05/31/2024 2:53 PM EDT Notified patient. [facility]04-07-2025 Miscellaneous Notes* Telephone Encounter - Shant Boyle RN - 05/31/2024 2:53 PM EDT Notified patient. * Telephone Encounter - Erica Cannon MD - 05/31/2024 2:20 PM EDT The following approved medication requests have been transmitted electronically. Requested Prescriptions Pending Prescriptions Disp Refills LORazepam (ATIVAN) 1 mg tablet 30 tablet 0 Sig: Take 0.5-1 tablets by mouth once daily as needed for anxiety for up to 30 days. Erica Cannon MD * Telephone Encounter - Shant Boyle RN - 05/31/2024 2:03 PM EDT The patient has been identified by name and date of : Yes Caregiver verified no other encounters exist for this prescription request: Yes Caregiver confirmed with patient/requestor that no other refills are due, in the near future, with this provider at this time: Yes The last office visit in the department: 05/07/2024 Pt asking if this can be sent to pharmacy today. Does the patient have a future office visit with this provider/department: Yes 08/16/2024 Requested Prescriptions Pending Prescriptions Disp Refills LORazepam (ATIVAN) 1 mg tablet 30 tablet 0 Sig: Take 0.5-1 tablets by mouth once daily as needed for anxiety for up to 30 days. Shant Boyle RN May 31, 2024 2:04 PM documented in this encounter[facility]04-[facility] Telephone encounter Note * Telephone Encounter - Erica Cannon MD - 05/31/2024 2:20 PM EDT The following approved medication requests have been transmitted electronically. Requested Prescriptions Pending Prescriptions Disp Refills LORazepam (ATIVAN) 1 mg tablet 30 tablet 0 Sig: Take 0.5-1 tablets by mouth once daily as needed for anxiety for up to 30 days. Erica Cannon MD [facility]04-07-2025 Telephone encounter Note* Telephone Encounter - Shant Boyle RN - 05/31/2024 2:03 PM EDT The patient has been identified by name and date of : Yes Caregiver verified no other encounters exist for this prescription request: Yes Caregiver confirmed with patient/requestor that no other refills are due, in the near future, with this provider at this time: Yes The last office visit in the department: 05/07/2024 Pt asking if this can be sent to pharmacy today. Does the patient have a future office visit with this provider/department: Yes 08/16/2024 Requested Prescriptions Pending Prescriptions Disp Refills LORazepam (ATIVAN) 1 mg tablet 30 tablet 0 Sig: Take 0.5-1 tablets by mouth once daily as needed for anxiety for up to 30 days. Shant Boyle RN May 31, 2024 2:04 PM [facility]03-31-2025 Telephone encounter Note* Telephone Encounter - Silvestre Jain APRN.CNP - 05/24/2024 8:26 AM EDT New order placed. [facility]03-31-2025 Miscellaneous Notes* Telephone Encounter - Silvestre Jain APRN.CNP - 05/24/2024 8:26 AM EDT New order placed. * Telephone Encounter - Inna Mcmanus - 05/22/2024 10:47 AM EDT Pt no showed for her [facility] pelvic ultrasound on 05/21/2024. It looks like the order is . Can you please place another order? Thank You documented in [facility]New[facility]03-29-2025 Telephone encounter Note * Telephone Encounter - Inna Mcmanus - 05/22/2024 10:47 AM EDT Pt no showed for her [facility] pelvic ultrasound on 05/21/2024. It looks like the order is . Can you please place another order? Thank You T [facility]03-18-2025 Telephone encounter Note* Telephone Encounter - Muriel Burgess LPN - 05/11/2024 10:26 AM EDT Prescription Refill Information The patient has been identified by name and date of : Yes Caregiver verified no other encounters exist for this prescription request: Yes Caregiver confirmed with patient/requestor that no other refills are due, in the near future, with this provider at this time: Yes The last office visit in the department: 05/07/24 Does the patient have a future office visit with this provider/department: Yes 08/16/24 Requested Prescriptions Pending Prescriptions Disp Refills Zinc Acetate, Oral, 25 mg (zinc) cap 90 capsule 1 Sig: Take 1 capsule by mouth once daily. ascorbic acid, vitamin C, (VITAMIN C) 500 mg tablet 90 tablet 1 Sig: Take 1 tablet by mouth once daily. atorvastatin (LIPITOR) 10 mg tablet 90 tablet 1 Sig: Take 1 tablet by mouth once daily. cyclobenzaprine (FLEXERIL) 5 mg tablet 90 tablet 1 Sig: Take 1-2 tablets by mouth three times a day as needed for muscle spasm. mometasone-formoterol (DULERA) 200-5 mcg/actuation inhaler 1 Each 2 Sig: Inhale 1 Puff as instructed two times a day. Rinse mouth after use. Muriel Burgess LPN May 11, 2024 10:36 AM [facility]03-18-2025 Miscellaneous Notes* Telephone Encounter - Muriel Burgess LPN - 05/11/2024 10:26 AM EDT Prescription Refill Information The patient has been identified by name and date of : Yes Caregiver verified no other encounters exist for this prescription request: Yes Caregiver confirmed with patient/requestor that no other refills are due, in the near future, with this provider at this time: Yes The last office visit in the department: 05/07/24 Does the patient have a future office visit with this provider/department: Yes 08/16/24 Requested Prescriptions Pending Prescriptions Disp Refills Zinc Acetate, Oral, 25 mg (zinc) cap 90 capsule 1 Sig: Take 1 capsule by mouth once daily. ascorbic acid, vitamin C, (VITAMIN C) 500 mg tablet 90 tablet 1 Sig: Take 1 tablet by mouth once daily. atorvastatin (LIPITOR) 10 mg tablet 90 tablet 1 Sig: Take 1 tablet by mouth once daily. cyclobenzaprine (FLEXERIL) 5 mg tablet 90 tablet 1 Sig: Take 1-2 tablets by mouth three times a day as needed for muscle spasm. mometasone-formoterol (DULERA) 200-5 mcg/actuation inhaler 1 Each 2 Sig: Inhale 1 Puff as instructed two times a day. Rinse mouth after use. Muriel Burgess LPN May 11, 2024 10:36 AM documented in this encounterNew[facility]03-14-2025 NoteH[facility]03-14-2025 History of Present illness Narrative* Silvestre Jain APRN.[employer] - 05/07/2024 9:26 AM EDT SUBJECTIVE Meggan Arita is a 63 year old female here today for a check up on her medical problems. Chief Complaint Patient presents with: Weight Problem Right Knee Pain: injection did not give any relief HPI Meggan Arita is a 63 year old female. Nutrition consult was placed and she had to reschedule. Still with complaint of low pelvic pain andpressure that wraps around to back on the left side. She has seen [facility] for this as well. Dx with diverticulitis Has low pelvic pressure, denies any post menopausal bleeding. Does describe urinary urgency and leaks urine, wears pads. Has nocturia 3-4 x a night Occ consitpation but uses param or flax in foods and that helps New complaint of occasional chest tightness and pressure across front of chest that wraps around toher back. States it started about 2 weeks ago and accompanied with a dry cough. She denies any fever or acute illness but has rhinorrhea secondary to environmental allergies . Her medications were reviewed today and her list is now up to date. She is compliant on taking her medications: Yes She is tolerating her medication(s) without side effects: Yes. Does feel like weight loss has stalled/ reversed. She is following an appropriate diet for her medical problems: Yes She is getting some exercise in? N/A She has visited another health care provider since being seen last? :Yes, podiatry She has had a visit to the emergency department or hospital since being seen last? No Medications Current Outpatient Medications Medication Sig Cholecalciferol, Vitamin D3, 125 mcg (5,000 unit) cap Take 1 capsule by mouth once daily. metFORMIN ER (GLUCOPHAGE XR) 500 mg 24 hr tablet Take 1 tablet by mouth once daily. LORazepam (ATIVAN) 1 mg tablet Take 0.5-1 tablets by mouth once daily as needed for anxiety for up to 30 days. tirzepatide (MOUNJARO) 15 mg/0.5 mL pen injector Inject 15 mg subcutaneously one time a week. ferrous sulfate (IRON) 325 mg (65 mg iron) tablet Take 1 tablet by mouth once daily. potassium chloride ER (KLOR-CON) 20 mEq tablet Take 1 tablet by mouth two times a day. As directed cyclobenzaprine (FLEXERIL) 5 mg tablet Take 1-2 tablets by mouth three times a day as needed for muscle spasm. buPROPion XL (WELLBUTRIN XL) 300 mg 24 hr tablet Take 1 tablet by mouth once daily. mometasone-formoterol (DULERA) 200-5 mcg/actuation inhaler Inhale 1 Puff as instructed two times a day. Rinse mouth after use. dicyclomine (BENTYL) 10 mg capsule Take 1 capsule by mouth before meals and at bedtime. Zinc Acetate, Oral, 25 mg (zinc) cap Take 1 capsule by mouth once daily. montelukast (SINGULAIR) 10 mg tablet Take 1 tablet by mouth daily at bedtime. furosemide (LASIX) 20 mg tablet TAKE 1-2 TABLETS BY MOUTH ONCE DAILY NEEDED FOR EDEMA/ FLUID RETENTION atorvastatin (LIPITOR) 10 mg tablet Take 1 tablet by mouth once daily. ascorbic acid, vitamin C, (VITAMIN C) 500 mg tablet Take 1 tablet by mouth once daily. albuterol (PROVENTIL) 2.5 mg /3 mL (0.083 %) nebulizer solution inhale contents of one vial in nebulizer every 6 hours if needed for wheezing and shortness of breath fluticasone (FLONASE) 50 mcg/actuation nasal spray Use 2 Sprays in each nostril once daily as needed. pantoprazole DR (PROTONIX) 40 mg tablet Take 1 tablet by mouth once daily. losartan (COZAAR) 100 mg tablet Take 1 tablet by mouth once daily. ipratropium (ATROVENT) 0.02 % nebulizer solution Use 2.5 mL via nebulizer four times a day as needed (wheezing). Use over 5-15minutes. Use in addition to albuterol nebulizer. nystatin (MYCOSTATIN) powder Apply 1 application to affected area four times daily. venlafaxine ER (EFFEXOR XR) 75 mg 24 hr capsule Take 1 capsule by mouth once daily. albuterol HFA (PROVENTIL HFA, VENTOLIN HFA) 90 mcg/actuation inhaler Inhale 2 Puffs as instructed every 4 hours as needed for wheezing/shortness of breath. polyethylene glycol 3350 (MIRALAX) 17 gram/dose powder 2 scoop in liquid daily as needed for bowel movement diclofenac (VOLTAREN) 1 % topical gel Apply 4 g to affected area four times daily. topiramate (TOPAMAX) 100 mg tablet Take 1 tablet by mouth two times a day. OXYGEN, HOME THERAPY, 2 L/min by Nasal Cannula route as directed. Using on average 8 hours during the daytime and then at night bled in to PAP machine. WALKER ROLLATOR SEAT WITH 6" WHEELS - RED Diagnosis: Unsteady gait, primary osteoarthritis both knees, decreased mobility Lancets Test blood sugar(s) 4 times daily. Dx: Type 2 DM - Controlled E11.9 Insulin: No metOLazone (ZAROXOLYN) 5 mg tablet Take 1 tablet by mouth once daily as needed. Take 1/2 hour before lasix. (Patient not taking: Reported on 01/29/2023) blood sugar diagnostic (BLOOD GLUCOSE TEST) test strip Test blood sugar(s) 4 times daily. Dx: Type 2 DM - Controlled E11.9 Insulin: No blood sugar diagnostic (RELION PRIME TEST STRIPS) test strip Test glucose 4 x per day. Dx: E11.9. Insulin use: no Blood Pressure Test Kit-Large (QUICK RESPONSE BP MONITOR) Check blood pressure daily or as needed. I10 Hypertension Diaper,Brief, Adult,Disposable (DISPOSABLE BRIEF) Bariatric Briefs - Prevail #10 (thickest brief). 5 per day. blood sugar diagnostic (BLOOD GLUCOSE TEST) test strip Test blood sugar(s) four times daily. Dx: Type 2 DM - Controlled E11.9 Insulin: No CPAP AutoPAP 5-12 CM H2O with humidification. Mask (per patient preference) optional chin strap (ifindicated) , filters, tubing, humidifier and lifetime supplies. Miscellaneous Medical Supply Order: Overnight pulse ox on 4LPM Diagnosis: R09.02 (checking if needsO2 increased at night) Blood-Glucose Meter (FREESTYLE FREEDOM LITE) monitoring kit 1 Each as needed. COMPOUNDED PRESCRIPTION TENS Unit 4 lead. Use as directed. Needs refills for leads 1 per month as needed Dispense 1 with 5 refills. (M48.06) Spinal stenosis, lumbar region, without neurogenic claudication Nebulizer NEBULIZER FOR HOME USE. DX: (J45.20) Mild intermittent asthma without complication No current facility-administered medications for this visit. ALLERGIES Allergen Reactions Ciprofloxacin Diarrhea Nausea and diarrhea Mounjaro [Tirzepati* Diarrhea, Vomiting Hospitalized with dehydration and acute kidney injury. Did tolerate Trulicity Buspar [Buspirone H* Other: See Comments Insomnia Carafate [Sucralfat* tightens up chest unable to swallow Celebrex [Celecoxib] Other: See Comments tachycardia, heart palpitations Cheratussin Itching Codeine GI Upset sick to her stomach but able to tolerate in Tylenol with codeine #3 Doxycycline Intolerance, Vomiting Iodine difficulty breathing, swelling, hives Latex difficulty breathing and swelling Levaquin [Levofloxa* GI Upset Meloxicam Rash pruritic rash within hours of taking med Penicillins Swelling, Shortness of Breath Prednisone Mental Status Change Vicodin [Hydrocodon* Itching swelling ACTIVE PROBLEM LIST Mixed Hyperlipidemia - 08/07/2022 Stage 3 Chronic Kidney Disease (Hcc) - 08/07/2022 Ulcer of Left Lower Extremity, Limited to Breakdown of Skin (Hcc) - 02/20/2022 Comment: Large wound medial thigh; also 2 smaller ones (medial and lateral thigh) Bilateral Leg Edema - 02/20/2022 Comment: Not needing as much Lasix as before; would take metolazone before Lasix as before for prn use Primary Osteoarthritis of Both Knees - 03/08/2020 Comment: severe narrowing of the medial joint space with marginal osteophytes--x-ray knee 2016 Depression - 01/24/2016 Type 2 Diabetes (Hcc) - 09/01/2014 Bmi 60.0-69.9, Adult (Hcc) - 06/30/2014 Pulmonary Hypertension ([facility]) - 04/23/2013 Allergic Rhinitis - 07/15/2007 Spinal Stenosis, Lumbar Region, Without Neurogenic Claudication - 07/09/2007 Comment: not sure where this diagnosis came from since no prior MRI or CT scan with mention of this diagnosis Edema - 06/01/2007 Comment: Admit 07-08-08 for RLE venous stasis ulcer on Cubicin. Put pt on disability from 08-03-08 to 11-24-08 Iron Deficiency Anemia, Unspecified - 01/20/2007 Comment: Colon 03-22-02 ([facility]): no polyps, masses or AVMs Anxiety State - 12/09/2006 Generalized Osteoarthrosis, Unspecified Site - 10/29/2006 Esophageal Reflux - 03/16/2005 Comment: EGD in 06-30: no evidence of esophagitis but there is gastritis (H pylori was negative) Chronic Hepatitis, Unspecified ([facility]) - 03/06/2005 Comment: Liver biopsy w/ cholecystectomy Hypertension Comment: Echo at [place] 01-25: LVH, mild TR, LAE, RVE, PASP 38 (mild), no EF documented per Seese Seese 01-07-03: consider GERD for atyp CP, not cath candidate from obesity, doubt cardiac source ECG 03-30: NSR with PVC, lat T flattening, no ischemia/injury (ECG NL in 10-27 at [place]) Rec for Dobut Echo in 05-28 per Seese (Darshan) prior to rec gastric bypass (Study 07-21-03 was NL) Admit for BRYAN in 09-29: rec Cardizem and Lopressor after negative enzymes, outpt stress Dobut Echo 11-18-05: 80% APMHR, No RWMA, NL but limited by not achieving APMHR LDL 96, HDL 45, TG 45 in 01-01 Restarted K supplements for K of 3.3 in 08-01 as pt on Lasix Order placed for Holter in 04-04 after ED visit for palpitations Metoprolol to 100 mg bid in 04-04 for BP and palpitations Holter 04-04: no AF, VT but pt with 7 sec pause Metop changed to Hydralazine and HCTZ as inpt in 04-04 with the Holter findings Carotids at [place] in 04-04: 1-15% stenosis bilaterally Obstructive Sleep Apnea Comment: Scheduled sleep study in 11-3012-08-06: sleep time 60 minutes/294 minutes studied, AHI 48, low sat 79%-rec auto-titrating CPAP Trial of an auto-titrating CPAP in 11-30: unable to sleep long enough for diagnosis Phoned pt at work 12-24-06 to call about scheduling auto Asthma Social History Tobacco Use Smoking status: Never Smokeless tobacco: Never Tobacco comments: Father smoked in childhood home . ETS exposure in current home. Vaping Use Vaping status: Never Used Substance Use Topics Alcohol use: No Drug use: No Review of Systems HENT: Positive for rhinorrhea. Respiratory: Positive for cough and chest tightness. Cardiovascular: Negative for leg swelling. Gastrointestinal: Positive for abdominal pain and constipation. Negative for diarrhea, nausea and vomiting. Genitourinary: Positive for dysuria, flank pain, frequency and urgency. Negative for hematuria, menstrual problem, vaginal bleeding, vaginal discharge and vaginal pain. Musculoskeletal: Positive for joint swelling. Skin: Negative. Neurological: Negative. Hematological: Negative. All other systems reviewed and are negative. OBJECTIVE BP 144/82 Pulse 74 SpO2 96% LMP 02/11/2011 Physical Exam Vitals and nursing note reviewed. Constitutional: General: She is not in acute distress. Appearance: Normal appearance. She is obese. She is not ill-appearing. HENT: Mouth/Throat: Mouth: Mucous membranes are moist. Eyes: Extraocular Movements: Extraocular movements intact. Pupils: Pupils are equal, round, and reactive to light. Cardiovascular: Rate and Rhythm: Normal rate and regular rhythm. Pulses: Normal pulses. Heart sounds: Normal heart sounds. No murmur heard. No friction rub. No gallop. Pulmonary: Effort: Pulmonary effort is normal. No respiratory distress. Breath sounds: Normal breath sounds. No stridor. No wheezing, rhonchi or rales. Chest: Chest wall: No tenderness. Abdominal: Palpations: Abdomen is soft. Lymphadenopathy: Cervical: No cervical adenopathy. Skin: General: Skin is warm and dry. Capillary Refill: Capillary refill takes less than 2 seconds. Neurological: General: No focal deficit present. Mental Status: She is alert and oriented to person, place, and time. ASSESSMENT/PLAN: ASSESSMENT/PLAN: 1. Chronic pain of right knee - ICD9: 719.46, 338.29, ICD10: M25.561, G89.29 (primary diagnosis) Discussed weight loss as below and - DICLOFENAC 1 % TOPICAL GEL 2. Constipation, unspecified constipation type - ICD9: 564.00, ICD10: K59.00 Continue with dietary fiber and add Mirlax as needed for occasional constipation. - POLYETHYLENE GLYCOL 3350 17 GRAM/DOSE ORAL POWDER 3. Pelvic pain - ICD9: [id number], ICD10: R10.2 Differential Diagnosis includes Diverticulitis, Kidney stones/colic, Bladder distention, Ovarian cyst, and Cystitis - Treatment for constipation discussed - PELVIC US [facility] 4. Weight loss counseling, encounter for - ICD9: V65.3, ICD10: Z71.3 Discussed medications, keeping diary vs tracking cj for awareness. She has an apportionment with Nutrition. Discussed bariatric surgery options, she declines for now. Will increase Topamax to 100mg two times a day. HODA Barrios-student This supervising clinician was available to the student for the entire session as needed. All documentation was reviewed and agreed upon by the supervising clinician. The supervising clinician was present at the beginning of, during , and at the end of the session to discuss with the Patient and student. Portions of this note have been entered by ancillary staff. I have reviewed and when necessary edited, so that they are an adequate record of my encounter with this patient Please note that parts of this document were created using voice recognition software and therefore may contain grammatical errors. Patient verbalizes understanding of instructions from today's visit and in agreement with treatmentplan. Questions answered. Agrees to call the office if questions, concerns of issues with acute symptoms not improving or if they worsen. See diagnoses and orders for additional plan(s). Allergies and medications were reviewed, list was updated, and refills given if needed. Past medical, surgical, social, and family history reviewed and updated as appropriate. Encouraged proper diet & exercise as well as compliance with taking medications. Age- appropriate health preventative measures were discussed. . Return in about 3 months (around 08/07/2024) for Follow up on chronic conditions and medications.. Silvestre Jain APRN-[employer] [facility] Telephone encounter Note * Telephone Encounter - Lili Cummings RN - 04/29/2024 7:22 PM EST Pt called and is notified of providers results and instructions. Pt voices understanding. Lili Cummings RN [facility]03-06-2025 Miscellaneous Notes* Telephone Encounter - Lili Cummings RN - 04/29/2024 7:22 PM EST Pt called and is notified of providers results and instructions. Pt voices understanding. Lili Cummings RN * Telephone Encounter - Erica Cannon MD - 04/29/2024 7:12 PM EST The following approved medication requests have been transmitted electronically. Requested Prescriptions Signed Prescriptions Disp Refills Cholecalciferol, Vitamin D3, 125 mcg (5,000 unit) cap 90 capsule 3 Sig: Take 1 capsule by mouth once daily. Authorizing Provider: ERICA CANNON metFORMIN ER (GLUCOPHAGE XR) 500 mg 24 hr tablet 30 tablet 2 Sig: Take 1 tablet by mouth once daily. Authorizing Provider: ERICA CANNON MD Will start with 30 pills in case does not tolerate. If does tolerate, can decide whether to stay on one pill daily or f wants to increase dose, as wellas when do give a 90 day supply . * Telephone Encounter - Lili Cummings RN - 04/29/2024 6:09 PM EST Pt called and is notified of providers message and instructions. Pt voices understanding. Pt was asking if provider had mentioned about her taking Metformin again. In previous message Pt had states,"she would like to try taking metformin again. States she is putting weight back on. Had stopped in in the past do to abdominal cramping. Will call if cramping becomes severe while taking the metformin.". Please call and advise. Lili Cummings RN * Telephone Encounter - Erica Cannon MD - 04/29/2024 5:40 PM EST Glad pill packs helping to get meds in routinely. Stay on same dose iron. Increased Vitamin D dose from total 4000 units to 5000 units daily The following approved medication requests have been transmitted electronically. Requested Prescriptions Signed Prescriptions Disp Refills Cholecalciferol, Vitamin D3, 125 mcg (5,000 unit) cap 90 capsule 3 Sig: Take 1 capsule by mouth once daily. Authorizing Provider: ERICA CANNON MD * Telephone Encounter - Sridevi Isabel LPN - 04/28/2024 9:28 AM EST Spoke with patient and she is taking Vitamin D3 2,000 units 2 capsules once daily. She is taking iron daily. All her medication is in a pill pack and she has not missed a dose of any medications. She is requesting that the vitamin d and iron to be increased. She mentioned that she would like to try taking metformin again. States she is putting weight back on. Had stopped in in the past do to abdominal cramping. Will call if cramping becomes severe while taking the metformin. * Telephone Encounter - Erica Cannon MD - 04/28/2024 12:09 AM EST From result note I added: Vitamin D level is improved but still low. Verify not missing doses of Vitamin D and what current dose is. Will increase dose. Thyroid labs fine. Would continue present management. Thyroid labs within normal limits. TSH improved from 4.110 to 2.930 HgA1C good at 4.7 Lipids all in goal range B12 level okay at 608. Anemia is improving with Hg up to 11.3 Iron still in 60s (low end of normal), but TIBC lower to 224. CMP with impnroved with kidney function with Creatinine down to 1.35 eGFR (filtration rate) improved to 44. Lipids fine. BUN just slightly up at 23. Sodium up a couple points--consistent with mild dehydration. Verify Vitamin D dose and how she is taking it. Also verify if taking iron pill daily. Can adjust dose if needed for either. Also, verify she is drinking at least 8 cups of noncaffeinated fluid daily. Needs to add another couple cups of fluid daily. She can also discuss above with Silvestre as well as Britney--has appointments coming up * Telephone Encounter - Ruchi Malone LPN - 04/24/2024 11:34 AM EST Pt has reviewed results via my chart. She would like pcp to review and send her a response. She notes a cancer concern with noted on my chart but she could say when it was. She couldn't find a message. This nurse couldn't see what message was noted from mychart. documented in this [facility]New[facility]03-[facility] Telephone encounter Note * Telephone Encounter - Erica Cannon MD - 04/29/2024 7:12 PM EST The following approved medication requests have been transmitted electronically. Requested Prescriptions Signed Prescriptions Disp Refills Cholecalciferol, Vitamin D3, 125 mcg (5,000 unit) cap 90 capsule 3 Sig: Take 1 capsule by mouth once daily. Authorizing Provider: ERICA CANNON metFORMIN ER (GLUCOPHAGE XR) 500 mg 24 hr tablet 30 tablet 2 Sig: Take 1 tablet by mouth once daily. Authorizing Provider: ERICA CANNON MD Will start with 30 pills in case does not tolerate. If does tolerate, can decide whether to stay on one pill daily or f wants to increase dose, as wellas when do give a 90 day supply . [facility]03-06-2025 Telephone encounter Note* Telephone Encounter - Lili Cummings RN - 04/29/2024 6:09 PM EST Pt called and is notified of providers message and instructions. Pt voices understanding. Pt was asking if provider had mentioned about her taking Metformin again. In previous message Pt had states,"she would like to try taking metformin again. States she is putting weight back on. Had stopped in in the past do to abdominal cramping. Will call if cramping becomes severe while taking the metformin.". Please call and advise. Lili Cummings RN [facility]03-06-2025 Telephone encounter Note* Telephone Encounter - Erica Cannon MD - 04/29/2024 5:40 PM EST Glad pill packs helping to get meds in routinely. Stay on same dose iron. Increased Vitamin D dose from total 4000 units to 5000 units daily The following approved medication requests have been transmitted electronically. Requested Prescriptions Signed Prescriptions Disp Refills Cholecalciferol, Vitamin D3, 125 mcg (5,000 unit) cap 90 capsule 3 Sig: Take 1 capsule by mouth once daily. Authorizing Provider: ERICA CANNON MD [facility]03-05-2025 Telephone encounter Note* Telephone Encounter - Sridevi Isabel LPN - 04/28/2024 9:28 AM EST Spoke with patient and she is taking Vitamin D3 2,000 units 2 capsules once daily. She is taking iron daily. All her medication is in a pill pack and she has not missed a dose of any medications. She is requesting that the vitamin d and iron to be increased. She mentioned that she would like to try taking metformin again. States she is putting weight back on. Had stopped in in the past do to abdominal cramping. Will call if cramping becomes severe while taking the metformin. [facility]03-05-2025 Telephone encounter Note* Telephone Encounter - Erica Cannon MD - 04/28/2024 12:09 AM EST From result note I added: Vitamin D level is improved but still low. Verify not missing doses of Vitamin D and what current dose is. Will increase dose. Thyroid labs fine. Would continue present management. Thyroid labs within normal limits. TSH improved from 4.110 to 2.930 HgA1C good at 4.7 Lipids all in goal range B12 level okay at 608. Anemia is improving with Hg up to 11.3 Iron still in 60s (low end of normal), but TIBC lower to 224. CMP with impnroved with kidney function with Creatinine down to 1.35 eGFR (filtration rate) improved to 44. Lipids fine. BUN just slightly up at 23. Sodium up a couple points--consistent with mild dehydration. Verify Vitamin D dose and how she is taking it. Also verify if taking iron pill daily. Can adjust dose if needed for either. Also, verify she is drinking at least 8 cups of noncaffeinated fluid daily. Needs to add another couple cups of fluid daily. She can also discuss above with Silvestre as well as Britney--has appointments coming up [facility]03-01-2025 Telephone encounter Note* Telephone Encounter - Ruchi Malone LPN - 04/24/2024 11:34 AM EST Pt has reviewed results via my chart. She would like pcp to review and send her a response. She notes a cancer concern with noted on my chart but she could say when it was. She couldn't find a message. This nurse couldn't see what message was noted from mychart. [facility]02-28[facility] History of Present illness Narrative* Tom Bolaños - 04/23/2024 10:21 AM EST Last saw pcp: 11/28/23 Subjective: Patient presents to clinic c/o painful toenails. They state that the nails are especially painful with shoe gear and pressure. Patient states that nails 1-5 b/l are painful. Patient admits to being diabetic. No other pedal complaints at this time. Patient states no change in medications or medical history since last visit. Objective: Patient presents to clinic nonambulatory Vasc: DP and PT pulses are faintly palpable bilateral. CFT is less than 5 seconds bilateral. Skin temperature is warm to cool proximal to distal bilateral. There is moderate edema or varicosities noted. Neuro: Protective sensation is intact to the foot and toes when tested with the 5.07 SWM bilateral.Vibratory sensation is absent at the hallux IPJ bilateral. The hallux is downgoing bilateral. Derm: Nails 1-5 b/l are painful, discolored-yellow, thick, crumbly, dystrophic and with subungal debris. Skin is of normal turgor, texture and hair growth is absent bilateral. There are no hyperkeratosis, ulcerations, scars, verruca or other lesions noted. Ortho: Muscle strength is 5/5 for all pedal groups tested. Ankle joint DF is decreased with the knee extended with no pain or crepitus noted. 1st MPJ ROM is decreased bilateral. Assessment: (B35.1) Onychomycosis (primary encounter diagnosis) (M79.675) Pain in toe of left foot (M79.674) Pain in toe of right foot (E11.42) Diabetic polyneuropathy associated with type 2 diabetes mellitus (HCC) Plan: Patient was seen and evaluated. Nails 1-5 bilateral were debrided in length and thickness. Patient was instructed on the continued importance of diabetic foot care along with proper diet and keeping their blood sugar under control to prevent complications. I stressed the importance of avoiding barefoot walking, wearing good shoesand inspection of feet. Patient is to RTC in 3-4 months. Tom Bolaños DPM * Talia Parks LPN - 04/23/2024 10:19 AM EST AMB ROOMING INTAKE FLOWSHEET DATA Patient presents with: Left Foot - Established Patient, Follow Up, Diabetic Foot Care Right Foot - Established Patient, Follow Up, Diabetic Foot Care Patient complains of stiffness in bilateral toes. Talia Parks LPN documented in this encounterNew[facility]02-28-2025 Instructions* Patient Instructions* Tom Bolaños - 04/23/2024 10:21 AM EST Diabetes Foot Care Instructions When you have diabetes, proper foot care is very important. Poor foot care may lead to amputation of a foot or leg. As a person with diabetes, you are more vulnerable to foot problems, because diabetes can damage your nerves and reduce blood flow to your feet. Here are some diabetes foot care tips to follow: Wash and Dry Your Feet Daily Use mild soaps Use warm water Pat your skin dry; do not rub. Thoroughly dry your feet. After washing, use lotion on your feet to prevent cracking. Do not put lotion between your toes. Examine Your Feet Each Day Check the tops and bottoms of your feet. Have someone else look at your feet if you cannot see them. Check for dry, cracked skin. Look for blisters, cuts, scratches, or other sores. Check for redness, increased warmth, or tenderness when touching any area of your feet. Check for ingrown toenails, corns, and calluses. If you get a blister or sore from your shoes, do not "pop" it. Apply a bandage and wear a differentpair of shoes. Take Care of Your Toenails Cut toenails after bathing, when they are soft. Cut toenails straight across and smooth with a nail file. Avoid cutting into the corners of toes. Do not cut cuticles. If you have neuropathy (or decreased sensation in your feet) a clinical geneticist should always cut your toenails. Be Careful When Exercising Walk and exercise in comfortable shoes. Do not exercise when you have open sores on your feet. Protect Your Feet With Shoes and Socks Never go barefoot. Always protect your feet by wearing shoes or hard-soled slippers or footwear. Avoid shoes with high heels and pointed toes. Avoid shoes that expose your toes or heels (such as open-toed shoes or sandals). These types of shoes increase your risk for injury and potential infections. Try on new footwear with the type of socks you usually wear. Do not wear new shoes for more than an hour at a time. Change your socks daily. Look and feel inside your shoes before putting them on to make sure there are no foreign objects orrough areas. Avoid tight socks. Wear natural-fiber socks (cotton, wool, or a cotton-wool blend). Wear special shoes if your health care provider recommends them. Wear shoes/boots that will protect your feet from various weather conditions (cold, moisture, etc.). Make sure your shoes fit properly. If you have neuropathy (nerve damage), you may not notice that your shoes are too tight. Perform the "footwear test" described below. Footwear Test Use this simple test to see if your shoes fit correctly: Stand on a piece of paper. (Make sure you are standing and not sitting, because your foot changes shape when you stand.) Trace the outline of your foot. Trace the outline of your shoe. Compare the tracings: Is the shoe too narrow? Is your foot crammed into the shoe? The shoe should be at least 1/2 inch longer than your longest toe and as wide as your foot. Proper Shoe Choices The following types of shoes are best for people with diabetes Closed toes and heels Leather uppers without a seam inside At least 1/2 inch extra space at the end of your longest toe Inside of shoe should be soft with no rough areas Outer sole should be made of stiff material Shoes should be at least as wide as your feet Tips for Foot Care in Diabetes Don't wait to treat a minor foot problem if you have diabetes. Follow your health care provider's guidelines and first aid guidelines. Report foot injuries and infections to your health care provider immediately. Check water temperature with your elbow, not your foot. Do not use a heating pad on your feet. Do not cross your legs. Do not self-treat your corns, calluses, or other foot problems. Go to your health care provider or clinical geneticist to treat these conditions. documented in this encounterNew[facility]02-[facility]2025 [facility]02-[facility] Telephone encounter Note* Telephone Encounter - Lydia North APRN.CNS - 04/12/2024 4:09 PM EST ok [facility]02-17-2025 Miscellaneous Notes* Telephone Encounter - Lydia North APRN.CNS - 04/12/2024 4:09 PM EST ok * Telephone Encounter - Nanci Dorado LPN - 04/12/2024 10:35 AM EST The patient has been identified by name and date of : Yes Caregiver verified no other encounters exist for this prescription request: Yes Caregiver confirmed with patient/requestor that no other refills are due, in the near future, with this provider at this time: Yes The last office visit in the department: 11/28/2023 Does the patient have a future office visit with this provider/department: Yes 04/17/2024 Requested Prescriptions Pending Prescriptions Disp Refills LORazepam (ATIVAN) 1 mg tablet 30 tablet 0 Sig: Take 0.5-1 tablets by mouth once daily as needed for anxiety for up to 30 days. tirzepatide (MOUNJARO) 15 mg/0.5 mL pen injector 4 Each 2 Sig: Inject 15 mg subcutaneously one time a week. Nanci Dorado LPN April 12, 2024 10:36 AM documented in this encounterNew[facility]02-17-2025 Telephone encounter Note * Telephone Encounter - Nanci Dorado LPN - 04/12/2024 10:35 AM EST The patient has been identified by name and date of : Yes Caregiver verified no other encounters exist for this prescription request: Yes Caregiver confirmed with patient/requestor that no other refills are due, in the near future, with this provider at this time: Yes The last office visit in the department: 11/28/2023 Does the patient have a future office visit with this provider/department: Yes 04/17/2024 Requested Prescriptions Pending Prescriptions Disp Refills LORazepam (ATIVAN) 1 mg tablet 30 tablet 0 Sig: Take 0.5-1 tablets by mouth once daily as needed for anxiety for up to 30 days. tirzepatide (MOUNJARO) 15 mg/0.5 mL pen injector 4 Each 2 Sig: Inject 15 mg subcutaneously one time a week. Nanci Dorado LPN April 12, 2024 10:36 AM [facility]02-01-2025 Telephone encounter Note* Telephone Encounter - Nanci Dorado LPN - 03/27/2024 10:52 AM EST Spoke with pt and information listed below given. Pt verbalizes understanding. Pt will come in on Friday and repeat urine studies before going to see urologist. Nanci Dorado LPN [facility]02-01-2025 Miscellaneous Notes* Telephone Encounter - Nanci Dorado LPN - 03/27/2024 10:52 AM EST Spoke with pt and information listed below given. Pt verbalizes understanding. Pt will come in on Friday and repeat urine studies before going to see urologist. Nanci Dorado LPN * Telephone Encounter - Erica Cannon MD - 03/26/2024 6:40 PM EST No significant growth Urinalysis was unremarkable. If ongoing pain, would refer to urology to see what else could be causing her symptoms/ Could repeat urine studies--orders filed. * Telephone Encounter - Treva Cr RN - 03/26/2024 8:46 AM EST Patient calls and states that she still continues to have burning with urination and pressure. Patient had done urine with culture testing on 03/20/2024. Latest Ref Rng 03/20/2024 Color Yellow Yellow Clarity Clear Clear Glucose, Urine Negative Negative Bilirubin, Urine Negative Negative Ketones, Urine Negative Negative Specific [place], Ur 1.005 - 1.030 1.021 Hemoglobin/Blood,Ur Negative Negative pH, Urine <8.5 6.0 Protein, Urine Negative Negative Urobilinogen 0.2-1.0 EU/dL 0.2 EU/dL Nitrites Negative Negative Leukest Negative Negative 03/20/2024 Culture 10,000 -<50,000 CFU/ml Normal urogenital paco Please review and advise, Treva Cr RN documented in this encounterNew[facility] Hospital01-31-2025 Telephone encounter Note * Telephone Encounter - Erica Cannon MD - 03/26/2024 6:40 PM EST No significant growth Urinalysis was unremarkable. If ongoing pain, would refer to urology to see what else could be causing her symptoms/ Could repeat urine studies--orders filed. [facility]01-31-2025 Telephone encounter Note* Telephone Encounter - Treva Cr RN - 03/26/2024 8:46 AM EST Patient calls and states that she still continues to have burning with urination and pressure. Patient had done urine with culture testing on 03/20/2024. Latest Ref Rng 03/20/2024 Color Yellow Yellow Clarity Clear Clear Glucose, Urine Negative Negative Bilirubin, Urine Negative Negative Ketones, Urine Negative Negative Specific [place], Ur 1.005 - 1.030 1.021 Hemoglobin/Blood,Ur Negative Negative pH, Urine <8.5 6.0 Protein, Urine Negative Negative Urobilinogen 0.2-1.0 EU/dL 0.2 EU/dL Nitrites Negative Negative Leukest Negative Negative 03/20/2024 Culture 10,000 -<50,000 CFU/ml Normal urogenital paco Please review and advise, Treva Cr RN [facility]01-27-2025 Telephone encounter Note* Telephone Encounter - Lauren Seo RN - 03/22/2024 9:59 AM EST Pt calling in for a refill on her Mounjaro. She states [facility] told her they couldn't callin refills for her anymore that our office required pt to call in. Pt confused as to why that wouldbe. Nurse unaware-will follow up. Pt has a virtual visit this Friday the and will request refill then. Noted on appt note too that pt needs refill on Mounjaro. [facility]01-27-2025 Miscellaneous Notes* Telephone Encounter - Lauren Seo RN - 03/22/2024 9:59 AM EST Pt calling in for a refill on her Mounjaro. She states [facility] told her they couldn't callin refills for her anymore that our office required pt to call in. Pt confused as to why that wouldbe. Nurse unaware-will follow up. Pt has a virtual visit this Friday the and will request refill then. Noted on appt note too that pt needs refill on Mounjaro. documented in this encounterNew[facility]01-24-2025 Telephone encounter Note * Telephone Encounter - Lili Cummings RN - 03/19/2024 8:12 AM EST Pt called and is notified of providers message. Pt voices understanding. Lili Cummings RN [facility]01-24-2025 Miscellaneous Notes* Telephone Encounter - Lili Cummings RN - 03/19/2024 8:12 AM EST Pt called and is notified of providers message. Pt voices understanding. Lili Cummings RN * Telephone Encounter - Erica Cannon MD - 03/18/2024 9:09 PM EST Filed * Telephone Encounter - Lili Cummings RN - 03/18/2024 6:29 PM EST Pt called in and reports she had a bladder infection and provider told her to call if the symptoms came back. She said the provider would order testing to check for UTI again. Pt reports she is having burning, pressure, urgency, and cramping. Please call and let Pt know once orders are in. documented in this encounterNew[facility]01-23-2025 Telephone encounter Note * Telephone Encounter - Erica Cannon MD - 03/18/2024 9:09 PM EST Filed [facility]01-[facility]-20[facility] Telephone encounter Note* Telephone Encounter - Lili Cummings RN - 03/18/2024 6:29 PM EST Pt called in and reports she had a bladder infection and provider told her to call if the symptoms came back. She said the provider would order testing to check for UTI again. Pt reports she is having burning, pressure, urgency, and cramping. Please call and let Pt know once orders are in. [facility]01-15-2025 Telephone encounter Note* Telephone Encounter - Maria Dolores Ivan RN - 03/10/2024 10:34 AM EST Patient calls to report that prescription for topiramate was not received at [facility]. Patient asking if provider could please send prescription again so [facility] will deliver it to her home. Pended . Maria Dolores Ivan RN [facility]01-15-2025 Miscellaneous Notes* Telephone Encounter - Maria Dolores Ivan RN - 03/10/2024 10:34 AM EST Patient calls to report that prescription for topiramate was not received at [facility]. Patient asking if provider could please send prescription again so [facility] will deliver it to her home. Pended . Maria Dolores Ivan RN documented in this encounterNew[facility]01-11-2025 Telephone encounter Note * Telephone Encounter - Lili Cummings RN - 03/06/2024 8:20 AM EST Pt called and is notified of providers message. Pt voices understanding. Lili Cummings RN [facility]01-11-2025 Miscellaneous Notes* Telephone Encounter - Lili Cummings RN - 03/06/2024 8:20 AM EST Pt called and is notified of providers message. Pt voices understanding. Lili Cummings RN * Telephone Encounter - Erica Cannon MD - 03/05/2024 7:56 PM EST The following approved medication requests have been transmitted electronically. Requested Prescriptions Signed Prescriptions Disp Refills topiramate (TOPAMAX) 50 mg tablet 180 tablet 1 Sig: Take 1 tablet by mouth two times a day. Authorizing Provider: ERICA CANNON MD * Telephone Encounter - Lili Cummings RN - 03/04/2024 7:02 PM EST Pt called and is notified of providers message and instructions. Pt voices understanding. Pt statesshe would like to try the Topamax to 50mg twice daily. The patient has been identified by name and date of : Yes Caregiver verified no other encounters exist for this prescription request: Yes Caregiver confirmed with patient/requestor that no other refills are due, in the near future, with this provider at this time: Yes The last office visit in the department: 11/28/2023 Does the patient have a future office visit with this provider/department: Yes 03/16/2024 Requested Prescriptions Pending Prescriptions Disp Refills topiramate (TOPAMAX) 50 mg tablet 180 tablet Sig: Take 1 tablet by mouth two times a day. Lili Cummings RN March 04, 2024 7:04 PM * Telephone Encounter - Erica Cannon MD - 03/04/2024 2:48 PM EST Did not see mention of any specific meds Silvestre had discussed with her (if any) to add for weight loss.' She is already on Mounjaro She is also on bupropion along with Topamax. Would recommend increase Topamax to 50mg twice daily or 100 mg once daily to see if that works better. Let her know that doses up to 400 mg have been used for weight loss. If there is a reason she does not want to increase the dose and if there was something else she waswanting to consider, let me know. In the meanwhile,keep up efforts at healthy diet with portion control, with diet primarily from protein and vegetables, avoiding high processed carb loads from bread, pasta, rice, sweets, alcohol, potatoes and anything with fructose corn * Telephone Encounter - Shant Boyle RN - 03/03/2024 12:52 PM EST Pt checking on pcp reply. Reports it was the topiramate 50 mg that Silvestre was thinking about increasing, if pt wasn't having side effects. Pt reports she is not having side effects, but she prefers to try something else, rather than increasing topiramate. Pt doesn't know what she prefers to try, but states the topiramate worked at first but is not working anymore. Reports she has gained 40 lbs in the last few months. Reports she lost 200 # on mounjaro, and is still taking it. Please advise pt. * Telephone Encounter - Rina Rincon LPN - 03/01/2024 6:41 PM EST Patient aware of urine results, verbalizes understanding. Patient inquiring about medication she had discussed with Silvestre Jain APRN, CNP at OV on 11/28/23. Patient thought provider was going to add a medication to help her keep losing weight. Only medication change noted in OV notes so far is the Topamax dose to 50mg. Patient has upcoming OV. Asking PCP to look at OV notes, otherwise will have to wait until OV laterin February. Rina Rincon LPN * Telephone Encounter - Lili Cummings RN - 03/01/2024 5:27 PM EST Pt called in again asking if provider had responded to previous message and I told her that it had been resent to provider, but she had not gotten back to it as of yet. She asked if Dr Cannon worked tomorrow and I let her know that she is in. * Telephone Encounter - Carlton Guillen LPN - 02/28/2024 10:57 AM EST Pt returned call to office. Notified of provider message. Pt states she has enough Mounjaro to lastuntil appt in February. Pt states she had discussed with Silvestre about adding an additional medication to the Mounjaro. Pt states she is keeping a journal of diet/exercise and doing everything she shouldbe doing but doesn't feel like the Mounjaro is as helpful as it was in the beginning. She states she feels like it wears off throughout the day. Carlton Guillen LPN * Telephone Encounter - Erica Cannon MD - 02/27/2024 7:47 PM EST 1) Less than 100,000 CFU E coli grew. If symptoms improving with antibiotic given (nitrofurantoin),may complete the antibiotic course. Recheck post med urine studies if symptoms not resolving (check2 days after completes the antibiotic). 2) She has February appointment--verify if has enough med to last till then. Have her keep a journal of her diet and exercise till her appointment with me if not already doing so. * Telephone Encounter - Anh Hazel LPN - 02/27/2024 2:42 PM EST 1)Patient calling asking if her urine culture results are back? Wants to know if she should stay onthe generic Macrobid rx? 2)Patient asking if she could be changed to something else the Dania is not working as well now?She does not want to gain the weight back, has been watching her diet and drinking lots of water. She has been on the 15 mg once weekly since August, Silvestre was talking about changing her to another but in out on leave now. Patient uses [facility] if needed. Please advise [facility] Telephone encounter Note * Telephone Encounter - Erica Cannon MD - 03/05/2024 7:56 PM EST The following approved medication requests have been transmitted electronically. Requested Prescriptions Signed Prescriptions Disp Refills topiramate (TOPAMAX) 50 mg tablet 180 tablet 1 Sig: Take 1 tablet by mouth two times a day. Authorizing Provider: ERICA CANNON MD [facility]01-09-2025 Telephone encounter Note* Telephone Encounter - Lili Cummings RN - 03/04/2024 7:02 PM EST Pt called and is notified of providers message and instructions. Pt voices understanding. Pt statesshe would like to try the Topamax to 50mg twice daily. The patient has been identified by name and date of : Yes Caregiver verified no other encounters exist for this prescription request: Yes Caregiver confirmed with patient/requestor that no other refills are due, in the near future, with this provider at this time: Yes The last office visit in the department: 11/28/2023 Does the patient have a future office visit with this provider/department: Yes 03/16/2024 Requested Prescriptions Pending Prescriptions Disp Refills topiramate (TOPAMAX) 50 mg tablet 180 tablet Sig: Take 1 tablet by mouth two times a day. Lili Cummings RN March 04, 2024 7:04 PM [facility]01-09-2025 Telephone encounter Note* Telephone Encounter - Erica Cannon MD - 03/04/2024 2:48 PM EST Did not see mention of any specific meds Silvestre had discussed with her (if any) to add for weight loss.' She is already on Mounjaro She is also on bupropion along with Topamax. Would recommend increase Topamax to 50mg twice daily or 100 mg once daily to see if that works better. Let her know that doses up to 400 mg have been used for weight loss. If there is a reason she does not want to increase the dose and if there was something else she waswanting to consider, let me know. In the meanwhile,keep up efforts at healthy diet with portion control, with diet primarily from protein and vegetables, avoiding high processed carb loads from bread, pasta, rice, sweets, alcohol, potatoes and anything with fructose corn [facility]01-08-2025 Telephone encounter Note* Telephone Encounter - Shant Boyle RN - 03/03/2024 12:52 PM EST Pt checking on pcp reply. Reports it was the topiramate 50 mg that Silvestre was thinking about increasing, if pt wasn't having side effects. Pt reports she is not having side effects, but she prefers to try something else, rather than increasing topiramate. Pt doesn't know what she prefers to try, but states the topiramate worked at first but is not working anymore. Reports she has gained 40 lbs in the last few months. Reports she lost 200 # on mounjaro, and is still taking it. Please advise pt. [facility]01-06-2025 Telephone encounter Note* Telephone Encounter - Rina Rincon LPN - 03/01/2024 6:41 PM EST Patient aware of urine results, verbalizes understanding. Patient inquiring about medication she had discussed with Silvestre Jain APRN, CNP at OV on 11/28/23. Patient thought provider was going to add a medication to help her keep losing weight. Only medication change noted in OV notes so far is the Topamax dose to 50mg. Patient has upcoming OV. Asking PCP to look at OV notes, otherwise will have to wait until OV laterin February. Rina Rincon LPN [facility]01-06-2025 Telephone encounter Note* Telephone Encounter - Lili Cummings RN - 03/01/2024 5:27 PM EST Pt called in again asking if provider had responded to previous message and I told her that it had been resent to provider, but she had not gotten back to it as of yet. She asked if Dr Cannon worked tomorrow and I let her know that she is in. [facility]01-04-2025 Telephone encounter Note* Telephone Encounter - Carlton Guillen LPN - 02/28/2024 10:57 AM EST Pt returned call to office. Notified of provider message. Pt states she has enough Mounjaro to lastuntil appt in February. Pt states she had discussed with Silvestre about adding an additional medication to the Mounjaro. Pt states she is keeping a journal of diet/exercise and doing everything she shouldbe doing but doesn't feel like the Mounjaro is as helpful as it was in the beginning. She states she feels like it wears off throughout the day. Carlton Guillen LPN [facility]01-03-2025 Telephone encounter Note* Telephone Encounter - Erica Cannon MD - 02/27/2024 7:47 PM EST 1) Less than 100,000 CFU E coli grew. If symptoms improving with antibiotic given (nitrofurantoin),may complete the antibiotic course. Recheck post med urine studies if symptoms not resolving (check2 days after completes the antibiotic). 2) She has February appointment--verify if has enough med to last till then. Have her keep a journal of her diet and exercise till her appointment with me if not already doing so. [facility]01-03-2025 Telephone encounter Note* Telephone Encounter - Anh Hazel LPN - 02/27/2024 2:42 PM EST 1)Patient calling asking if her urine culture results are back? Wants to know if she should stay onthe generic Macrobid rx? 2)Patient asking if she could be changed to something else the Dania is not working as well now?She does not want to gain the weight back, has been watching her diet and drinking lots of water. She has been on the 15 mg once weekly since August, Silvestre was talking about changing her to another but in out on leave now. Patient uses [facility] if needed. Please advise [facility]01-03-2025 Telephone encounter Note* Telephone Encounter - Macarioalfonzo Neelima Shagufta - 02/27/2024 2:27 PM EST Prescription Refill Information The patient has been identified by name and date of : Yes Caregiver verified no other encounters exist for this prescription request: Yes Caregiver confirmed with patient/requestor that no other refills are due, in the near future, with this provider at this time: Yes The last office visit in the department: 10/21/2023 Does the patient have a future office visit with this provider/department: Yes Requested Prescriptions Pending Prescriptions Disp Refills ferrous sulfate (IRON) 325 mg (65 mg iron) tablet 90 tablet 1 Sig: Take 1 tablet by mouth once daily. potassium chloride ER (KLOR-CON) 20 mEq tablet 60 tablet 2 Sig: Take 1 tablet by mouth two times a day. As directed cyclobenzaprine (FLEXERIL) 5 mg tablet 90 tablet 1 Sig: Take 1-2 tablets by mouth three times a day as needed for muscle spasm. topiramate (TOPAMAX) 50 mg tablet 30 tablet 3 Sig: Take 1 tablet by mouth daily at bedtime. buPROPion XL (WELLBUTRIN XL) 300 mg 24 hr tablet 30 tablet 3 Sig: Take 1 tablet by mouth once daily. Shagufta Ortez February 27, 2024 2:30 PM [facility]01-03-2025 Miscellaneous Notes* Telephone Encounter - Shagufta Chang - 02/27/2024 2:27 PM EST Prescription Refill Information The patient has been identified by name and date of : Yes Caregiver verified no other encounters exist for this prescription request: Yes Caregiver confirmed with patient/requestor that no other refills are due, in the near future, with this provider at this time: Yes The last office visit in the department: 10/21/2023 Does the patient have a future office visit with this provider/department: Yes Requested Prescriptions Pending Prescriptions Disp Refills ferrous sulfate (IRON) 325 mg (65 mg iron) tablet 90 tablet 1 Sig: Take 1 tablet by mouth once daily. potassium chloride ER (KLOR-CON) 20 mEq tablet 60 tablet 2 Sig: Take 1 tablet by mouth two times a day. As directed cyclobenzaprine (FLEXERIL) 5 mg tablet 90 tablet 1 Sig: Take 1-2 tablets by mouth three times a day as needed for muscle spasm. topiramate (TOPAMAX) 50 mg tablet 30 tablet 3 Sig: Take 1 tablet by mouth daily at bedtime. buPROPion XL (WELLBUTRIN XL) 300 mg 24 hr tablet 30 tablet 3 Sig: Take 1 tablet by mouth once daily. Shagufta Ortez February 27, 2024 2:30 PM [facility]12-[facility] Telephone encounter Note * Telephone Encounter - Erica Cannon MD - 02/22/2024 3:10 PM EST Noted. Erica Cannon MD [facility]12-29-2024 Miscellaneous Notes* Telephone Encounter - Erica Cannon MD - 02/22/2024 3:10 PM EST Noted. Erica Cannon MD * Telephone Encounter - Sridevi Isabel LPN - 02/21/2024 8:27 AM EST Spoke with patient and she is unsure if able to complete a urine sample today as son is not available to bring her in. Noted also she is unable to cone picker antibiotics today as pharmacy is not open on weekends. If unable to complete sample today will wait till Friday. Agree that if symptoms are worse will go to [facility] or ER if very severe. * Telephone Encounter - Sridevi Isabel LPN - 02/21/2024 8:19 AM EST LEFT MESSAGE FOR PATIENT TO CALL OFFICE. * Telephone Encounter - Erica Cannon MD - 02/21/2024 3:30 AM EST Should have urine studies done to verify whether UTI and what bacteria is growing (and make sure not developing resistance to antibiotic)--[facility]. Orders placed in case will not go to [facility] for evaluation or not so severe needs to go to ER. The following approved medication requests have been transmitted electronically. Requested Prescriptions Signed Prescriptions Disp Refills nitrofurantoin monohydrate and macrocrystal (MACROBID) 100 mg capsule 14 capsule 0 Sig: Take 1 capsule by mouth two times a day. Erica Cannon MD Should be seen in not responding to antibiotic and should be seen if has another UTI in less than amonth or two. * Telephone Encounter - Maria Dolores Ivan RN - 02/20/2024 12:20 PM EST Patient calls for urinary frequency/urgency/burning with urination. Nurse triage recommends see provider within 24 hours. No available appointments. Patient declines EC per below. Patient is pushing fluids and 100% cranberry sugar free juice. Requests this be reviewed today. Reason for Disposition Urinating more frequently than usual (i.e., frequency) OR new-onset of the feeling of an urgent need to urinate (i.e., urgency) Answer Assessment - Initial Assessment Questions 1. SYMPTOM: Frequency/Urgency. Patient reports that she did an at-home urinary test that showed sheis positive for UTI. Patient reports a history of UTI and asking if provider would send in an antibiotic instead of having to be seen. She reports last time she went to [facility] they sent her to ER for kidney stones and it turned out to be just her usual bladder infection. 2. ONSET: Yesterday 3. PAIN: No pain but pressure 4. CAUSE: HX of UTI 5. OTHER SYMPTOMS: No blood in urine, fever, flank pain, reports burning with urination. Protocols used: Urinary [id number] documented [facility]12-[facility]24 Telephone encounter Note * Telephone Encounter - Sridevi Isabel LPN - 02/21/2024 8:27 AM EST Spoke with patient and she is unsure if able to complete a urine sample today as son is not available to bring her in. Noted also she is unable to cone picker antibiotics today as pharmacy is not open on weekends. If unable to complete sample today will wait till Friday. Agree that if symptoms are worse will go to [facility] or ER if very severe. [facility]-28-20[facility] Telephone encounter Note* Telephone Encounter - Sridevi Isabel LPN - 02/21/2024 8:19 AM EST LEFT MESSAGE FOR PATIENT TO CALL OFFICE. [facility]12-28-2024 Telephone encounter Note* Telephone Encounter - Erica Cannon MD - 02/21/2024 3:30 AM EST Should have urine studies done to verify whether UTI and what bacteria is growing (and make sure not developing resistance to antibiotic)--[facility] Not[facility] July [facility] to [facility]. Orders placed in case will not go to [facility] for evaluation or not so severe needs to go to ER. The following approved medication requests have been transmitted electronically. Requested Prescriptions Signed Prescriptions Disp Refills nitrofurantoin monohydrate and macrocrystal (MACROBID) 100 mg capsule 14 capsule 0 Sig: Take 1 capsule by mouth two times a day. Erica Cannon MD Should be seen in not responding to antibiotic and should be seen if has another UTI in less than amonth or two. [facility]12-28-20[facility] Telephone encounter Note* Telephone Encounter - Erica Cannon MD - 02/21/2024 2:44 AM EST The following approved medication requests have been transmitted electronically. Requested Prescriptions Signed Prescriptions Disp Refills LORazepam (ATIVAN) 1 mg tablet 30 tablet 0 Sig: Take 0.5-1 tablets by mouth once daily as needed for anxiety for up to 30 days. Patient shouldstart on February 24, 2024. Authorizing Provider: ERICA CANNON MD [facility]12-28-2024 Miscellaneous Notes* Telephone Encounter - Erica Cannon MD - 02/21/2024 2:44 AM EST The following approved medication requests have been transmitted electronically. Requested Prescriptions Signed Prescriptions Disp Refills LORazepam (ATIVAN) 1 mg tablet 30 tablet 0 Sig: Take 0.5-1 tablets by mouth once daily as needed for anxiety for up to 30 days. Patient shouldstart on February 24, 2024. Authorizing Provider: ERICA CANNON MD * Telephone Encounter - Maria Dolores Ivan RN - 02/20/2024 10:43 AM EST The patient has been identified by name and date of : Yes Caregiver verified no other encounters exist for this prescription request: Yes Caregiver confirmed with patient/requestor that no other refills are due, in the near future, with this provider at this time: Yes The last office visit in the department: 11/28/2023 Does the patient have a future office visit with this provider/department: 03/16/2024 Requested Prescriptions Pending Prescriptions Disp Refills LORazepam (ATIVAN) 1 mg tablet 30 tablet 0 Sig: Take 0.5-1 tablets by mouth once daily as needed for anxiety for up to 30 days. Maria Dolores Ivan RN February 20, 2024 10:43 AM documented [facility]12-[facility] Telephone encounter Note * Telephone Encounter - Maria Dolores Ivan RN - 02/20/2024 12:20 PM EST Patient calls for urinary frequency/urgency/burning with urination. Nurse triage recommends see provider within 24 hours. No available appointments. Patient declines EC per below. Patient is pushing fluids and 100% cranberry sugar free juice. Requests this be reviewed today. Reason for Disposition Urinating more frequently than usual (i.e., frequency) OR new-onset of the feeling of an urgent need to urinate (i.e., urgency) Answer Assessment - Initial Assessment Questions 1. SYMPTOM: Frequency/Urgency. Patient reports that she did an at-home urinary test that showed sheis positive for UTI. Patient reports a history of UTI and asking if provider would send in an antibiotic instead of having to be seen. She reports last time she went to they sent her to ER for kidney stones and it turned out to be just her usual bladder infection. 2. ONSET: Yesterday 3. PAIN: No pain but pressure 4. CAUSE: HX of UTI 5. OTHER SYMPTOMS: No blood in urine, fever, flank pain, reports burning with urination. Protocols used: Urinary [id number] [facility] Telephone encounter Note* Telephone Encounter - Maria Dolores Ivan RN - 02/20/2024 10:43 AM EST The patient has been identified by name and date of : Yes Caregiver verified no other encounters exist for this prescription request: Yes Caregiver confirmed with patient/requestor that no other refills are due, in the near future, with this provider at this time: Yes The last office visit in the department: 11/28/2023 Does the patient have a future office visit with this provider/department: 03/16/2024 Requested Prescriptions Pending Prescriptions Disp Refills LORazepam (ATIVAN) 1 mg tablet 30 tablet 0 Sig: Take 0.5-1 tablets by mouth once daily as needed for anxiety for up to 30 days. Maria Dolores Ivan RN February 20, 2024 10:43 AM [facility]12-06-2024 Telephone encounter Note* Telephone Encounter - Erica Cannon MD - 01/30/2024 1:47 PM EST The following approved medication requests have been transmitted electronically. Requested Prescriptions Signed Prescriptions Disp Refills mometasone-formoterol (DULERA) 200-5 mcg/actuation inhaler 1 Each 2 Sig: Inhale 1 Puff as instructed two times a day. Rinse mouth after use. Authorizing Provider: ERICA CANNON MD [facility]12-06-2024 Miscellaneous Notes* Telephone Encounter - Erica Cannon MD - 01/30/2024 1:47 PM EST The following approved medication requests have been transmitted electronically. Requested Prescriptions Signed Prescriptions Disp Refills mometasone-formoterol (DULERA) 200-5 mcg/actuation inhaler 1 Each 2 Sig: Inhale 1 Puff as instructed two times a day. Rinse mouth after use. Authorizing Provider: ERICA CANNON MD * Telephone Encounter - Shant Boyle RN - 01/29/2024 12:08 PM EST The patient has been identified by name and date of : Yes Caregiver verified no other encounters exist for this prescription request: Yes Caregiver confirmed with patient/requestor that no other refills are due, in the near future, with this provider at this time: Yes The last office visit in the department: 11/28/2023 Does the patient have a future office visit with this provider/department: Yes 03/16/2024 Requested Prescriptions Pending Prescriptions Disp Refills mometasone-formoterol (DULERA) 200-5 mcg/actuation inhaler 1 Each 2 Sig: Inhale 1 Puff as instructed two times a day. Rinse mouth after use. Shant Boyle RN January 29, 2024 12:10 PM documented [facility]12-[facility] Telephone encounter Note * Telephone Encounter - Shant Boyle RN - 01/29/2024 12:08 PM EST The patient has been identified by name and date of : Yes Caregiver verified no other encounters exist for this prescription request: Yes Caregiver confirmed with patient/requestor that no other refills are due, in the near future, with this provider at this time: Yes The last office visit in the department: 11/28/2023 Does the patient have a future office visit with this provider/department: Yes 03/16/2024 Requested Prescriptions Pending Prescriptions Disp Refills mometasone-formoterol (DULERA) 200-5 mcg/actuation inhaler 1 Each 2 Sig: Inhale 1 Puff as instructed two times a day. Rinse mouth after use. Shant Boyle RN January 29, 2024 12:10 PM [facility]11-25-2024 Telephone encounter Note* Telephone Encounter - Ruchi Malone LPN - 01/19/2024 11:41 AM EST From last fill. Start date for lorazepam was changed to 01/25/24. [facility]11-25-2024 Miscellaneous Notes* Telephone Encounter - Ruchi Malone LPN - 01/19/2024 11:41 AM EST From last fill. Start date for lorazepam was changed to 01/25/24. * Telephone Encounter - Carmen Gardner - 01/19/2024 10:17 AM EST Prescription Refill Information The patient has been identified by name and date of : Yes Caregiver verified no other encounters exist for this prescription request: Yes Caregiver confirmed with patient/requestor that no other refills are due, in the near future, with this provider at this time: Yes The last office visit in the department: 11/28/23 Does the patient have a future office visit with this provider/department: Yes Requested Prescriptions Pending Prescriptions Disp Refills dicyclomine (BENTYL) 10 mg capsule 120 capsule 5 Sig: Take 1 capsule by mouth before meals and at bedtime. LORazepam (ATIVAN) 1 mg tablet 30 tablet 0 Sig: Take 0.5-1 tablets by mouth once daily as needed for anxiety for up to 30 days. cyclobenzaprine (FLEXERIL) 5 mg tablet 90 tablet 1 Sig: Take 1-2 tablets by mouth three times a day as needed for muscle spasm. Carmen Montoya [facility] January 19, 2024 10:19 AM documented [facility]11-[facility] Telephone encounter Note * Telephone Encounter - Carmen Gardner - 01/19/2024 10:17 AM EST Prescription Refill Information The patient has been identified by name and date of : Yes Caregiver verified no other encounters exist for this prescription request: Yes Caregiver confirmed with patient/requestor that no other refills are due, in the near future, with this provider at this time: Yes The last office visit in the department: 11/28/23 Does the patient have a future office visit with this provider/department: Yes Requested Prescriptions Pending Prescriptions Disp Refills dicyclomine (BENTYL) 10 mg capsule 120 capsule 5 Sig: Take 1 capsule by mouth before meals and at bedtime. LORazepam (ATIVAN) 1 mg tablet 30 tablet 0 Sig: Take 0.5-1 tablets by mouth once daily as needed for anxiety for up to 30 days. cyclobenzaprine (FLEXERIL) 5 mg tablet 90 tablet 1 Sig: Take 1-2 tablets by mouth three times a day as needed for muscle spasm. Carmen Montoya [facility] January 19, 2024 10:19 AM [facility]11-06-2024 Telephone encounter Note* Telephone Encounter - Sridevi Isabel LPN - 12/31/2023 12:58 PM EST Patient is attempting to switch O2 suppliers. She currently receiving O2 supply from [facility] [place] and requesting to switch to [employer]. Had attempted to complete required 6 minute walk test but due to severe knee pain was unable to complete the full 6 minutes. Last office visit and notes from 6 minute walk test have been faxed to [employer] [facility]11-06-2024 Miscellaneous Notes* Telephone Encounter - Sridevi Isabel LPN - 12/31/2023 12:58 PM EST Patient is attempting to switch O2 suppliers. She currently receiving O2 supply from [facility] [place] and requesting to switch to [employer]. Had attempted to complete required 6 minute walk test but due to severe knee pain was unable to complete the full 6 minutes. Last office visit and notes from 6 minute walk test have been faxed to [employer] documented [facility] Telephone encounter Note * Telephone Encounter - Maria Dolores Ivan RN - 12/26/2023 10:50 AM EDT The patient has been identified by name and date of : Yes Caregiver verified no other encounters exist for this prescription request: Yes Caregiver confirmed with patient/requestor that no other refills are due, in the near future, with this provider at this time: Yes The last office visit in the department: 11/28/2023 Does the patient have a future office visit with this provider/department: 03/16/2024 Requested Prescriptions Pending Prescriptions Disp Refills LORazepam (ATIVAN) 1 mg tablet 30 tablet 0 Sig: Take 0.5-1 tablets by mouth once daily as needed for anxiety for up to 30 days. potassium chloride ER (KLOR-CON) 20 mEq tablet 60 tablet 2 Sig: Take 1 tablet by mouth two times a day. As directed Maria Dolores Ivan RN December 26, 2023 10:51 AM [facility]11-01-2024 Miscellaneous Notes* Telephone Encounter - Maria Dolores Ivan RN - 12/26/2023 10:50 AM EDT The patient has been identified by name and date of : Yes Caregiver verified no other encounters exist for this prescription request: Yes Caregiver confirmed with patient/requestor that no other refills are due, in the near future, with this provider at this time: Yes The last office visit in the department: 11/28/2023 Does the patient have a future office visit with this provider/department: 03/16/2024 Requested Prescriptions Pending Prescriptions Disp Refills LORazepam (ATIVAN) 1 mg tablet 30 tablet 0 Sig: Take 0.5-1 tablets by mouth once daily as needed for anxiety for up to 30 days. potassium chloride ER (KLOR-CON) 20 mEq tablet 60 tablet 2 Sig: Take 1 tablet by mouth two times a day. As directed Maria Dolores Ivan RN December 26, 2023 10:51 AM documented in this encounterNew[facility]10-04-2024 Instructions* Patient Instructions* Silvestre Jain APRN.CNP - 11/28/2023 1:08 PM EDT [facility], call us to schedule at . documented in this encounterNew[facility]10-[facility] History of Present illness Narrative* Silvestre Jain APRN.NIKKY - 11/28/2023 12:55 PM EDT SUBJECTIVE Meggan Arita is a 62 year old female here today for a check up on her medical problems. Chief Complaint Patient presents with: F/U 3 Month HPI Meggan Arita is a 62 year old female. She is an established patient of Erica Cannon MD. Last visit she started on Topamax to help with weight loss. Tolerating this well and without side effects, would like to increase the dose. Trying to get her home o2 renewed. Using this during the day at 2 l/m via nasal cannula when she wakes for about 4 hours in the am and then puts it back on 4 hours in the evening. Uses 2 l/m at nightinto PAP machine. She had a 6 minute walk today but due to knee pain from arthritis she could not complete the full 6 minutes. Still with some issues with nausea and abdominal pain. Prior CT in [facility] did not show any specifics. Would like to discuss upper and lower scopes with general surgery. Her medications were reviewed today and her list is now up to date. Medications Current Outpatient Medications Medication Sig buPROPion XL (WELLBUTRIN XL) 300 mg 24 hr tablet Take 1 tablet by mouth once daily. dicyclomine (BENTYL) 10 mg capsule Take 1 capsule by mouth before meals and at bedtime. montelukast (SINGULAIR) 10 mg tablet Take 1 tablet by mouth daily at bedtime. mometasone-formoterol (DULERA) 200-5 mcg/actuation inhaler Inhale 1 Puff as instructed two times a day. Rinse mouth after use. cyclobenzaprine (FLEXERIL) 5 mg tablet Take 1-2 tablets by mouth three times a day as needed for muscle spasm. LORazepam (ATIVAN) 1 mg tablet Take 0.5-1 tablets by mouth once daily as needed for anxiety for up to 30 days. furosemide (LASIX) 20 mg tablet TAKE 1-2 TABLETS BY MOUTH ONCE DAILY NEEDED FOR EDEMA/ FLUID RETENTION ferrous sulfate (IRON) 325 mg (65 mg iron) tablet Take 1 tablet by mouth once daily. atorvastatin (LIPITOR) 10 mg tablet Take 1 tablet by mouth once daily. ascorbic acid, vitamin C, (VITAMIN C) 500 mg tablet Take 1 tablet by mouth once daily. potassium chloride ER (KLOR-CON) 20 mEq tablet Take 1 tablet by mouth two times a day. As directed albuterol (PROVENTIL) 2.5 mg /3 mL (0.083 %) nebulizer solution inhale contents of one vial in nebulizer every 6 hours if needed for wheezing and shortness of breath fluticasone (FLONASE) 50 mcg/actuation nasal spray Use 2 Sprays in each nostril once daily as needed. pantoprazole DR (PROTONIX) 40 mg tablet Take 1 tablet by mouth once daily. losartan (COZAAR) 100 mg tablet Take 1 tablet by mouth once daily. ipratropium (ATROVENT) 0.02 % nebulizer solution Use 2.5 mL via nebulizer four times a day as needed (wheezing). Use over 5-15minutes. Use in addition to albuterol nebulizer. nystatin (MYCOSTATIN) powder Apply 1 application to affected area four times daily. polyethylene glycol 3350 (MIRALAX) 17 gram/dose powder 2 scoop in liquid daily as needed for bowel movement venlafaxine ER (EFFEXOR XR) 75 mg 24 hr capsule Take 1 capsule by mouth once daily. tirzepatide (MOUNJARO) 15 mg/0.5 mL pen injector Inject 15 mg subcutaneously one time a week. albuterol HFA (PROVENTIL HFA, VENTOLIN HFA) 90 mcg/actuation inhaler Inhale 2 Puffs as instructed every 4 hours as needed for wheezing/shortness of breath. Cholecalciferol, Vitamin D3, 50 mcg (2,000 unit) cap Take 2 capsules by mouth once daily. Zinc Acetate, Oral, 25 mg (zinc) cap Take 1 capsule by mouth once daily. topiramate (TOPAMAX) 50 mg tablet Take 1 tablet by mouth daily at bedtime. OXYGEN, HOME THERAPY, 2 L/min by Nasal Cannula route as directed. Using on average 8 hours during the daytime and then at night bled in to PAP machine. WALKER ROLLATOR SEAT WITH 6" WHEELS - RED Diagnosis: Unsteady gait, primary osteoarthritis both knees, decreased mobility Lancets Test blood sugar(s) 4 times daily. Dx: Type 2 DM - Controlled E11.9 Insulin: No metOLazone (ZAROXOLYN) 5 mg tablet Take 1 tablet by mouth once daily as needed. Take 1/2 hour before lasix. (Patient not taking: Reported on 01/29/2023) blood sugar diagnostic (BLOOD GLUCOSE TEST) test strip Test blood sugar(s) 4 times daily. Dx: Type 2 DM - Controlled E11.9 Insulin: No blood sugar diagnostic (RELION PRIME TEST STRIPS) test strip Test glucose 4 x per day. Dx: E11.9. Insulin use: no Blood Pressure Test Kit-Large (QUICK RESPONSE BP MONITOR) Check blood pressure daily or as needed. I10 Hypertension Diaper,Brief, Adult,Disposable (DISPOSABLE BRIEF) Bariatric Briefs - Prevail #10 (thickest brief). 5 per day. blood sugar diagnostic (BLOOD GLUCOSE TEST) test strip Test blood sugar(s) four times daily. Dx: Type 2 DM - Controlled E11.9 Insulin: No CPAP AutoPAP 5-12 CM H2O with humidification. Mask (per patient preference) optional chin strap (ifindicated) , filters, tubing, humidifier and lifetime supplies. Miscellaneous Medical Supply Order: Overnight pulse ox on 4LPM Diagnosis: R09.02 (checking if needsO2 increased at night) Blood-Glucose Meter (FREESTYLE FREEDOM LITE) monitoring kit 1 Each as needed. COMPOUNDED PRESCRIPTION TENS Unit 4 lead. Use as directed. Needs refills for leads 1 per month as needed Dispense 1 with 5 refills. (M48.06) Spinal stenosis, lumbar region, without neurogenic claudication Nebulizer NEBULIZER FOR HOME USE. DX: (J45.20) Mild intermittent asthma without complication No current facility-administered medications for this visit. ALLERGIES Allergen Reactions Ciprofloxacin Diarrhea Nausea and diarrhea Mounjaro [Tirzepati* Diarrhea, Vomiting Hospitalized with dehydration and acute kidney injury. Did tolerate Trulicity Buspar [Buspirone H* Other: See Comments Insomnia Carafate [Sucralfat* tightens up chest unable to swallow Celebrex [Celecoxib] Other: See Comments tachycardia, heart palpitations Cheratussin Itching Codeine GI Upset sick to her stomach but able to tolerate in Tylenol with codeine #3 Doxycycline Intolerance, Vomiting Iodine difficulty breathing, swelling, hives Latex difficulty breathing and swelling Levaquin [Levofloxa* GI Upset Meloxicam Rash pruritic rash within hours of taking med Penicillins Swelling, Shortness of Breath Prednisone Mental Status Change Vicodin [Hydrocodon* Itching swelling ACTIVE PROBLEM LIST Mixed Hyperlipidemia - 08/07/2022 Stage 3 Chronic Kidney Disease (Hcc) - 08/07/2022 Ulcer of Left Lower Extremity, Limited to Breakdown of Skin ([facility]) - 02/20/2022 Comment: Large wound medial thigh; also 2 smaller ones (medial and lateral thigh) Bilateral Leg Edema - 02/20/2022 Comment: Not needing as much Lasix as before; would take metolazone before Lasix as before for prn use Primary Osteoarthritis of Both Knees - 03/08/2020 Comment: severe narrowing of the medial joint space with marginal osteophytes--x-ray knee 2016 Depression - 01/24/2016 Type 2 Diabetes ([facility]) - 09/01/2014 Bmi 60.0-69.9, Adult ([facility]) - 06/30/2014 Pulmonary Hypertension ([facility]) - 04/23/2013 Allergic Rhinitis - 07/15/2007 Spinal Stenosis, Lumbar Region, Without Neurogenic Claudication - 07/09/2007 Comment: not sure where this diagnosis came from since no prior MRI or CT scan with mention of this diagnosis Edema - 06/01/2007 Comment: Admit 07-08-08 for RLE venous stasis ulcer on Cubicin. Put pt on disability from 08-03-08 to 11-24-08 Iron Deficiency Anemia, Unspecified - 01/20/2007 Comment: Colon 03-22-02 ([facility]): no polyps, masses or AVMs Anxiety State - 12/09/2006 Generalized Osteoarthrosis, Unspecified Site - 10/29/2006 Esophageal Reflux - 03/16/2005 Comment: EGD in 06-30: no evidence of esophagitis but there is gastritis (H pylori was negative) Chronic Hepatitis, Unspecified (Hcc) - 03/06/2005 Comment: Liver biopsy w/ cholecystectomy Hypertension Comment: Echo at [place] 01-25: LVH, mild TR, LAE, RVE, PASP 38 (mild), no EF documented per Seese Seese 01-07-03: consider GERD for atyp CP, not cath candidate from obesity, doubt cardiac source ECG 03-30: NSR with PVC, lat T flattening, no ischemia/injury (ECG NL in 10-27 at [place]) Rec for Dobut Echo in 05-28 per Seese (Darshan) prior to rec gastric bypass (Study 07-21-03 was NL) Admit for BRYAN in 09-29: rec Cardizem and Lopressor after negative enzymes, outpt stress Dobut Echo 11-18-05: 80% APMHR, No RWMA, NL but limited by not achieving APMHR LDL 96, HDL 45, TG 45 in 01-01 Restarted K supplements for K of 3.3 in 08-01 as pt on Lasix Order placed for Holter in 04-04 after ED visit for palpitations Metoprolol to 100 mg bid in 04-04 for BP and palpitations Holter 04-04: no AF, VT but pt with 7 sec pause Metop changed to Hydralazine and HCTZ as inpt in 04-04 with the Holter findings Carotids at [place] in 04-04: 1-15% stenosis bilaterally Obstructive Sleep Apnea Comment: Scheduled sleep study in 11-3012-08-06: sleep time 60 minutes/294 minutes studied, AHI 48, low sat 79%-rec auto-titrating CPAP Trial of an auto-titrating CPAP in 11-30: unable to sleep long enough for diagnosis Phoned pt at work 12-24-06 to call about scheduling auto Asthma Social History Tobacco Use Smoking status: Never Smokeless tobacco: Never Tobacco comments: Father smoked in childhood home . ETS exposure in current home. Vaping Use Vaping status: Never Used Substance Use Topics Alcohol use: No Drug use: No Review of Systems Constitutional: Negative. Respiratory: Negative. Cardiovascular: Negative. OBJECTIVE BP 128/76 Pulse 76 SpO2 97% LMP 02/11/2011 Physical Exam Vitals and nursing note reviewed. Constitutional: General: She is awake. She is not in acute distress. Appearance: Normal appearance. She is well-developed and well-groomed. She is obese. She is not ill-appearing, toxic-appearing or diaphoretic. HENT: Head: Normocephalic. Right Ear: External ear normal. Left Ear: External ear normal. Nose: Nose normal. Eyes: General: Vision grossly intact. Conjunctiva/sclera: Conjunctivae normal. Pupils: Pupils are equal, round, and reactive to light. Neck: Vascular: No JVD. Trachea: Trachea normal. Cardiovascular: Rate and Rhythm: Normal rate and regular rhythm. Pulses: Normal pulses. Heart sounds: Normal heart sounds. No murmur heard. Pulmonary: Effort: Pulmonary effort is normal. No accessory muscle usage, prolonged expiration or respiratory distress. Breath sounds: Normal breath sounds. Musculoskeletal: Cervical back: Neck supple. Skin: General: Skin is warm and dry. Capillary Refill: Capillary refill takes less than 2 seconds. Neurological: General: No focal deficit present. Mental Status: She is alert and oriented to person, place, and time. Mental status is at baseline. Psychiatric: Attention and Perception: Attention and perception normal. Mood and Affect: Mood and affect normal. Speech: Speech normal. Behavior: Behavior normal. Behavior is cooperative. Thought Content: Thought content normal. Cognition and Memory: Cognition and memory normal. Judgment: Judgment normal. ASSESSMENT/PLAN: 1. Pulmonary hypertension (HCC) - ICD9: 416.8, ICD10: I27.20 (primary diagnosis) Attempted 6 minute walk for o2 renewal but could not tolerate the full 6 minutes because of knee pain. She does still use and benefits from the use of o2 at 2 l/m via nasal cannula for 16 hours a day, 4 hours in the am, 4 hours in the pm and then at night connected to PAP device. 2. On supplemental oxygen therapy - ICD9: V46.2, ICD10: Z99.81 See above. 3. Hypoxia - ICD9: 799.02, ICD10: R09.02 See above. 4. Obstructive sleep apnea - ICD9: 327.23, ICD10: G47.33 See above. 5. Left lower quadrant abdominal pain - ICD9: 789.04, ICD10: R10.32 Resend referral to [facility] gen fraser, and given number to call. 6. Morbid obesity (HCC) - ICD9: 278.01, ICD10: E66.01 - Behavioral intervention, - Pharmacological intervention, - Continue current medications, and - Increase Topiramate - TOPIRAMATE 50 MG TABLET 7. Encounter for immunization - ICD9: V03.89, ICD10: Z23 - INFLUENZA VACCINE, AGE 6MO-64YR, TRIVALENT (AFLURIA, FLULAVAL, FLUVIRIN, FLUZONE) - ZOSTER VACCINE, RECOMBINANT (SHINGRIX) - ZOSTER VACCINE, RECOMBINANT (SHINGRIX) Portions of this note have been entered by ancillary staff. I have reviewed and when necessary edited, so that they are an adequate record of my encounter with this patient Please note that parts of this document were created using voice recognition software and therefore may contain grammatical errors. Patient verbalizes understanding of instructions from today's visit and in agreement with treatmentplan. Questions answered. Agrees to call the office if questions, concerns of issues with acute symptoms not improving or if they worsen. See diagnoses and orders for additional plan(s). Allergies and medications were reviewed, list was updated, and refills given if needed. Past medical, surgical, social, and family history reviewed and updated as appropriate. Encouraged proper diet & exercise as well as compliance with taking medications. Age- appropriate health preventative measures were discussed. Return in about 3 months (around 02/28/2024) for Follow up on chronic conditions and medications.. Silvestre Jain APRN-NIKKY documented in this [facility]10-[facility] Telephone encounter Note * Telephone Encounter - Rolando Pss, Aminta - 11/28/2023 11:38 AM EDT Please note: pharmacy also requested a refill of Galzin 25 mg capsules/once a day. It is not on medlist. [facility]10-04-[facility] Miscellaneous Notes* Telephone Encounter - Aminta Baird - 11/28/2023 11:38 AM EDT Please note: pharmacy also requested a refill of Galzin 25 mg capsules/once a day. It is not on medlist. * Telephone Encounter - Aminta Baird - 11/28/2023 11:27 AM EDT Prescription Refill Information The patient has been identified by name and date of : Yes Caregiver verified no other encounters exist for this prescription request: Yes Caregiver confirmed with patient/requestor that no other refills are due, in the near future, with this provider at this time: Yes The last office visit in the department: 10/21/23 Does the patient have a future office visit with this provider/department: Yes Requested Prescriptions Pending Prescriptions Disp Refills buPROPion XL (WELLBUTRIN XL) 300 mg 24 hr tablet 30 tablet 3 Sig: Take 1 tablet by mouth once daily. dicyclomine (BENTYL) 10 mg capsule 120 capsule 1 Sig: Take 1 capsule by mouth before meals and at bedtime. montelukast (SINGULAIR) 10 mg tablet 30 tablet 11 Sig: Take 1 tablet by mouth daily at bedtime. mometasone-formoterol (DULERA) 200-5 mcg/actuation inhaler 1 Each 2 Sig: Inhale 1 Puff as instructed two times a day. Rinse mouth after use. cyclobenzaprine (FLEXERIL) 5 mg tablet 90 tablet 1 Sig: Take 1-2 tablets by mouth three times a day as needed for muscle spasm. LORazepam (ATIVAN) 1 mg tablet 30 tablet 0 Sig: Take 0.5-1 tablets by mouth once daily as needed for anxiety for up to 30 days. Aminta Sylvester November 28, 2023 11:37 AM documented in this encounterNew[facility] Hospital10-04-2024 Telephone encounter Note * Telephone Encounter - Aminta Baird - 11/28/2023 11:27 AM EDT Prescription Refill Information The patient has been identified by name and date of : Yes Caregiver verified no other encounters exist for this prescription request: Yes Caregiver confirmed with patient/requestor that no other refills are due, in the near future, with this provider at this time: Yes The last office visit in the department: 10/21/23 Does the patient have a future office visit with this provider/department: Yes Requested Prescriptions Pending Prescriptions Disp Refills buPROPion XL (WELLBUTRIN XL) 300 mg 24 hr tablet 30 tablet 3 Sig: Take 1 tablet by mouth once daily. dicyclomine (BENTYL) 10 mg capsule 120 capsule 1 Sig: Take 1 capsule by mouth before meals and at bedtime. montelukast (SINGULAIR) 10 mg tablet 30 tablet 11 Sig: Take 1 tablet by mouth daily at bedtime. mometasone-formoterol (DULERA) 200-5 mcg/actuation inhaler 1 Each 2 Sig: Inhale 1 Puff as instructed two times a day. Rinse mouth after use. cyclobenzaprine (FLEXERIL) 5 mg tablet 90 tablet 1 Sig: Take 1-2 tablets by mouth three times a day as needed for muscle spasm. LORazepam (ATIVAN) 1 mg tablet 30 tablet 0 Sig: Take 0.5-1 tablets by mouth once daily as needed for anxiety for up to 30 days. Aminta Sylvester November 28, 2023 11:37 AM [facility] Procedure note* Marleni Rice RPFT - 11/28/2023 11:25 AM EDTAssociated Order(s): OXIMETRY WITH AMBULATION RESPIRATORY THERAPY OXIMETRY WITH AMBULATION Oximetry with Ambulation Test for This Encounter O2 Device O2 Adapter NC O2 Flow SpO2% HR Activity Ft Walked (ft) Time (min) Avg Speed (MPH) R/A 97 100 Resting R/A 95 111 Walking, usual pace 110 2 0.62 General Information Pulse Oximetry Site Total Time Spent Walking Assistance/O2 Supply Carrier L Middle Finger 30 Wheeled Walker NAME: Marleni BRETT Rice PATIENT NAME: Meggan Arita DATE: November 28, 2023 TIME: 11:26 AM Comment: patient was unable to walk any longer. c/o knee pain. [facility] Procedure note* Marleni Rice RPFT - 11/28/2023 11:25 AM EDTAssociated Order(s): OXIMETRY WITH AMBULATION RESPIRATORY THERAPY OXIMETRY WITH AMBULATION Oximetry with Ambulation Test for This Encounter O2 Device O2 Adapter NC O2 Flow SpO2% HR Activity Ft Walked (ft) Time (min) Avg Speed (MPH) R/A 97 100 Resting R/A 95 111 Walking, usual pace 110 2 0.62 General Information Pulse Oximetry Site Total Time Spent Walking Assistance/O2 Supply Carrier L Middle Finger 30 Wheeled Walker NAME: Marleni BRETT Rice PATIENT NAME: Meggan Arita DATE: November 28, 2023 TIME: 11:26 AM Comment: patient was unable to walk any longer. c/o knee pain. documented in this encounterNewark Hospital10-04-[facility]24 History of Present illness Narrative* Marleni Rice RPFT - 11/28/2023 11:11 AM EDT PULM FUNCTION: Provider: Silvestre Jain APRN.[employer] Assisting Tech: Marleni Rice RPFT Oximetry - Ambulation: 1 documented in this encounterNewark Hospital10-01-2024 Telephone encounter Note * Telephone Encounter - Sridevi Isabel LPN - 11/25/2023 11:09 AM EDT Patient schedule 11/28/23 [facility] Miscellaneous Notes* Telephone Encounter - Sridevi Isabel LPN - 11/25/2023 11:09 AM EDT Patient schedule 11/28/23 * Telephone Encounter - Sridevi Isabel LPN - 11/21/2023 4:02 PM EDT Please schedule PFT on 11/28/23 anytime this day Call patient to re-schedule CT scan. * Telephone Encounter - Silvestre Jain APRN.CNP - 11/21/2023 4:00 PM EDT I placed the new orders, does this need to go to clerical for scheduling? * Telephone Encounter - Anh Hazel LPN - 11/21/2023 3:41 PM EDT Patient was calling asking about her appt on 11/24 for 6 minute walk test, being done with Pulmonary. Need a different order placed Chrissy said oximetry with ambulation to have so Chesea can do testing. Cancelled appt with Dr Cannon. Pending order need to set up for on 11/27 since she has ride for Silvestre Jain appt. Also a problem with the CT Abd/Pelvis WOIVCON, ordered like that patient will still get oral contrast which has Iodine in it. She is very allergic, Toya in Radiology said put in notes on the order no oral contrast due to Iodine allergy. Need to contact patient to reschedule the CT Abd/Pelvis. And the Ambulation test patient has appt on 11/27 with Silvestre need to schedule with Pulmonary also same day. Please advise documented in this encounterNewark Hospital09-27-2024 Telephone encounter Note * Telephone Encounter - Sridevi Isabel LPN - 11/21/2023 4:02 PM EDT Please schedule PFT on 11/28/23 anytime this day Call patient to re-schedule CT scan. [facility] Telephone encounter Note* Telephone Encounter - Silvestre Jain APRN.CNP - 11/21/2023 4:00 PM EDT I placed the new orders, does this need to go to clerical for scheduling? [facility] Telephone encounter Note* Telephone Encounter - Anh Hazel LPN - 11/21/2023 3:41 PM EDT Patient was calling asking about her appt on 11/24 for 6 minute walk test, being done with Pulmonary. Need a different order placed Chrissy said oximetry with ambulation to have so Chesea can do testing. Cancelled appt with Dr Cannon. Pending order need to set up for on 11/27 since she has ride for Silvestre Jain appt. Also a problem with the CT Abd/Pelvis WOIVCON, ordered like that patient will still get oral contrast which has Iodine in it. She is very allergic, Toya in Radiology said put in notes on the order no oral contrast due to Iodine allergy. Need to contact patient to reschedule the CT Abd/Pelvis. And the Ambulation test patient has appt on 11/27 with Silvestre need to schedule with Pulmonary also same day. Please advise [facility]09-17-2024 Telephone encounter Note* Telephone Encounter - Sridevi Isabel LPN - 11/11/2023 12:[address] scan scheduled 12/05/23 [facility]09-17-2024 Miscellaneous Notes* Telephone Encounter - Sridevi Isabel LPN - 11/11/2023 12:[address] scan scheduled 12/05/23 * Telephone Encounter - Silvestre Jain APRN.CNP - 11/06/2023 9:50 AM EDT New order placed for CT abd/pelvis with no contrast. Please help with scheduling. Thanks * Telephone Encounter - Pati Kuhn LPN - 11/06/2023 9:38 AM EDT Patient notified of providers message and verbalized understanding. Patient states she is highly allergic to iodine and does not want the scan with contrast. Patient is asking for the order to be changed to without contrast. Also patient wanted to let you know that the person who brings her to [facility] will be out of town until November so she will have no transportation until then. * Telephone Encounter - Silvestre Jain APRN.CNP - 11/06/2023 7:22 AM EDT She has a recent history of diverticulitis, since still having pain we should repeat abdominal CT imaging. Please see if she can have contrast without issues with scans because she has iodine listed as an allergy. I ordered the CT with contrast because that would be ideal but we can change it to without contrast if needed. * Telephone Encounter - Sridevi Isabel LPN - 11/05/2023 5:04 PM EDT Patient states that the stomach cramps is feels at times the pain is getting worse. States getting these cramps 2-4 times a day. Takes tylenol and it does take the edge off. Had tried the dicyclomine 4 times daily and there was no change in the pain. [facility] Telephone encounter Note * Telephone Encounter - Silvestre Jain APRN.CNP - 11/06/2023 9:50 AM EDT New order placed for CT abd/pelvis with no contrast. Please help with scheduling. Thanks [facility]09-12-2024 Telephone encounter Note* Telephone Encounter - Pati Kuhn LPN - 11/06/2023 9:38 AM EDT Patient notified of providers message and verbalized understanding. Patient states she is highly allergic to iodine and does not want the scan with contrast. Patient is asking for the order to be changed to without contrast. Also patient wanted to let you know that the person who brings her to [facility] will be out of town until November so she will have no transportation until then. [facility]09-12-2024 Telephone encounter Note* Telephone Encounter - Silvestre Jain APRN.CNP - 11/06/2023 7:22 AM EDT She has a recent history of diverticulitis, since still having pain we should repeat abdominal CT imaging. Please see if she can have contrast without issues with scans because she has iodine listed as an allergy. I ordered the CT with contrast because that would be ideal but we can change it to without contrast if needed. [facility]09-11-2024 Telephone encounter Note* Telephone Encounter - Sridevi Isabel LPN - 11/05/2023 5:04 PM EDT Patient states that the stomach cramps is feels at times the pain is getting worse. States getting these cramps 2-4 times a day. Takes tylenol and it does take the edge off. Had tried the dicyclomine 4 times daily and there was no change in the pain. [facility]09-11-2024 Telephone encounter Note* Telephone Encounter - Sridevi Isabel LPN - 11/05/2023 5:04 PM EDT PATIENT NOTIFIED OF SAME. [facility]09-11-2024 Miscellaneous Notes* Telephone Encounter - Sridevi Isabel LPN - 11/05/2023 5:04 PM EDT PATIENT NOTIFIED OF SAME. * Telephone Encounter - Silvestre Jain APRN.CNP - 11/05/2023 3:42 PM EDT ordered * Telephone Encounter - Sridevi Isabel LPN - 11/05/2023 1:26 PM EDT Chelsea is needing a 6 minute walk test to see if she still qualifies for O2 and due to switching O2 supplies they are requesting an updated oximetry. Respiratory therapy is suggesting that provider put in an order for this and they will officially/correctly complete the test. [facility] Telephone encounter Note * Telephone Encounter - Silvestre Jain APRN.CNP - 11/05/2023 3:42 PM EDT ordered [facility]09-11-2024 Telephone encounter Note* Telephone Encounter - Sridevi Isabel LPN - 11/05/2023 1:26 PM EDT Chelsea is needing a 6 minute walk test to see if she still qualifies for O2 and due to switching O2 supplies they are requesting an updated oximetry. Respiratory therapy is suggesting that provider put in an order for this and they will officially/correctly complete the test. [facility]09-06-2024 Telephone encounter Note* Telephone Encounter - Silvestre Jain APRN.CNP - 10/31/2023 3:08 PM EDT PDMP website checked and validated. All prescriptions have been APPROPRIATELY filled. No suspiciousactivity was identified. 10/31/2023 by Silvestre Jain APRN.CNP [facility]09-06-2024 Miscellaneous Notes* Telephone Encounter - Silvestre Jain APRN.CNP - 10/31/2023 3:08 PM EDT PDMP website checked and validated. All prescriptions have been APPROPRIATELY filled. No suspiciousactivity was identified. 10/31/2023 by Silvestre Jain APRN.CNP * Telephone Encounter - Treva Cr RN - 10/31/2023 11:33 AM EDT The patient has been identified by name and date of : Yes Caregiver verified no other encounters exist for this prescription request: Yes Caregiver confirmed with patient/requestor that no other refills are due, in the near future, with this provider at this time: Yes The last office visit in the department: 10/21/2023 Does the patient have a future office visit with this provider/department: Yes 11/05/2023 Requested Prescriptions Pending Prescriptions Disp Refills LORazepam (ATIVAN) 1 mg tablet 30 tablet 0 Sig: Take 0.5-1 tablets by mouth once daily as needed for anxiety for up to 30 days. Treva Cr RN October 31, 2023 11:34 AM documented in [facility] Telephone encounter Note * Telephone Encounter - Treva Cr RN - 10/31/2023 11:33 AM EDT The patient has been identified by name and date of : Yes Caregiver verified no other encounters exist for this prescription request: Yes Caregiver confirmed with patient/requestor that no other refills are due, in the near future, with this provider at this time: Yes The last office visit in the department: 10/21/2023 Does the patient have a future office visit with this provider/department: Yes 11/05/2023 Requested Prescriptions Pending Prescriptions Disp Refills LORazepam (ATIVAN) 1 mg tablet 30 tablet 0 Sig: Take 0.5-1 tablets by mouth once daily as needed for anxiety for up to 30 days. Treva Cr RN October 31, 2023 11:34 AM [facility]08-30-2024 Telephone encounter Note* Telephone Encounter - Anh Hazel LPN - 10/24/2023 1:49 PM EDT Patient returned call and went over notes below from Silvestre Jain NP with understanding. Scheduled appt for 11/05/2023 at 11 am. [facility]08-30-2024 Miscellaneous Notes* Telephone Encounter - Anh Hazel LPN - 10/24/2023 1:49 PM EDT Patient returned call and went over notes below from Silvestre Jain [employer] with understanding. Scheduled appt for 11/05/2023 at 11 am. * Telephone Encounter - Sridevi Isabel LPN - 10/24/2023 11:18 AM EDT LEFT MESSAGE FOR PATIENT TO CALL OFFICE. * Telephone Encounter - Silvestre Jain APRN.CNP - 10/24/2023 7:25 AM EDT Can we let Chelsea know that we cannot locate any recent pulse ox records to help support her oxygen use. We can do a repeat 6 minute walk test if she is willing. Please see if willing to do this. * Telephone Encounter - Lexii Fowler RN - 10/22/2023 4:42 PM EDT Victorina with [facility] calling. She would like PCP office to know that she does not have any recent oximetry test results on their file and would like office to know this. Lexii Fowler RN documented [facility] Telephone encounter Note * Telephone Encounter - Sridvei Isabel LPN - 10/24/2023 11:18 AM EDT LEFT MESSAGE FOR PATIENT TO CALL OFFICE. [facility]08-30-2024 Telephone encounter Note* Telephone Encounter - Silvestre Jain APRN.CNP - 10/24/2023 7:25 AM EDT Can we let Chelsea know that we cannot locate any recent pulse ox records to help support her oxygen use. We can do a repeat 6 minute walk test if she is willing. Please see if willing to do this. [facility]08-28-2024 Telephone encounter Note* Telephone Encounter - Lexii Fowler RN - 10/22/2023 4:42 PM EDT Victorina with [facility] calling. She would like PCP office to know that she does not have any recent oximetry test results on their file and would like office to know this. Lexii Fowler RN [facility]08-27-2024 History of Present illness Narrative* Silvestre Jain APRN.NIKKY - 10/21/2023 10:50 AM EDT SUBJECTIVE Meggan Arita is a 62 year old female here today for a check up on her medical problems. Chief Complaint Patient presents with: Dental Problem: infected tooth and requesting treatment with antibiotic HPI Meggan Arita is a 62 year old female. She is an established patient of Erica Cannon MD. Here today for concerns of a dental problem and to address oxygen needs. [facility] Having a lot of pain with this. Started over the weekend with increased sensitivity. Getting worse. Getting this pulled and a full set of dentures. Using oxygen at home. Uses this during the day 2 l/m nasal cannula, uses this when she wakes up in the am and takes off PAP machine and uses it for about 4 hours starting out, puts it back on around 6 or 7 and also using the 2 l/m at night in to her PAP machine. 8 hours during the day on average and around 8 hours a night. Home physical therapy did testing with and without her oxygen therapy on. Continues to work on weight loss. On unro, still noticing some cravings in the evenings. Her medications were reviewed today and her list is now up to date. Medications Current Outpatient Medications Medication Sig furosemide (LASIX) 20 mg tablet TAKE 1-2 TABLETS BY MOUTH ONCE DAILY NEEDED FOR EDEMA/ FLUID RETENTION ferrous sulfate (IRON) 325 mg (65 mg iron) tablet Take 1 tablet by mouth once daily. LORazepam (ATIVAN) 1 mg tablet Take 0.5-1 tablets by mouth once daily as needed for anxiety for up to 30 days. cyclobenzaprine (FLEXERIL) 5 mg tablet Take 1-2 tablets by mouth three times a day as needed for muscle spasm. atorvastatin (LIPITOR) 10 mg tablet Take 1 tablet by mouth once daily. ascorbic acid, vitamin C, (VITAMIN C) 500 mg tablet Take 1 tablet by mouth once daily. potassium chloride ER (KLOR-CON) 20 mEq tablet Take 1 tablet by mouth two times a day. As directed albuterol (PROVENTIL) 2.5 mg /3 mL (0.083 %) nebulizer solution inhale contents of one vial in nebulizer every 6 hours if needed for wheezing and shortness of breath fluticasone (FLONASE) 50 mcg/actuation nasal spray Use 2 Sprays in each nostril once daily as needed. pantoprazole DR (PROTONIX) 40 mg tablet Take 1 tablet by mouth once daily. losartan (COZAAR) 100 mg tablet Take 1 tablet by mouth once daily. ipratropium (ATROVENT) 0.02 % nebulizer solution Use 2.5 mL via nebulizer four times a day as needed (wheezing). Use over 5-15minutes. Use in addition to albuterol nebulizer. nystatin (MYCOSTATIN) powder Apply 1 application to affected area four times daily. polyethylene glycol 3350 (MIRALAX) 17 gram/dose powder 2 scoop in liquid daily as needed for bowel movement dicyclomine (BENTYL) 10 mg capsule Take 1 capsule by mouth before meals and at bedtime. venlafaxine ER (EFFEXOR XR) 75 mg 24 hr capsule Take 1 capsule by mouth once daily. tirzepatide (MOUNJARO) 15 mg/0.5 mL pen injector Inject 15 mg subcutaneously one time a week. albuterol HFA (PROVENTIL HFA, VENTOLIN HFA) 90 mcg/actuation inhaler Inhale 2 Puffs as instructed every 4 hours as needed for wheezing/shortness of breath. mometasone-formoterol (DULERA) 200-5 mcg/actuation inhaler Inhale 1 Puff as instructed two times a day. Rinse mouth after use. buPROPion XL (WELLBUTRIN XL) 300 mg 24 hr tablet take 1 tablet by mouth once daily Cholecalciferol, Vitamin D3, 50 mcg (2,000 unit) cap Take 2 capsules by mouth once daily. Zinc Acetate, Oral, 25 mg (zinc) cap Take 1 capsule by mouth once daily. montelukast (SINGULAIR) 10 mg tablet Take 1 tablet by mouth daily at bedtime. (Patient taking differently: Take 10 mg by mouth daily at bedtime. As needed) clindamycin (CLEOCIN) 300 mg capsule Take 1 capsule by mouth three times a day for 10 days. OXYGEN, HOME THERAPY, 2 L/min by Nasal Cannula route as directed. Using on average 8 hours during the daytime and then at night bled in to PAP machine. topiramate (TOPAMAX) 25 mg tablet Take 1 tablet by mouth daily at bedtime. WALKER ROLLATOR SEAT WITH 6" WHEELS - RED Diagnosis: Unsteady gait, primary osteoarthritis both knees, decreased mobility Lancets Test blood sugar(s) 4 times daily. Dx: Type 2 DM - Controlled E11.9 Insulin: No metOLazone (ZAROXOLYN) 5 mg tablet Take 1 tablet by mouth once daily as needed. Take 1/2 hour before lasix. (Patient not taking: Reported on 01/29/2023) blood sugar diagnostic (BLOOD GLUCOSE TEST) test strip Test blood sugar(s) 4 times daily. Dx: Type 2 DM - Controlled E11.9 Insulin: No blood sugar diagnostic (RELION PRIME TEST STRIPS) test strip Test glucose 4 x per day. Dx: E11.9. Insulin use: no Blood Pressure Test Kit-Large (QUICK RESPONSE BP MONITOR) Check blood pressure daily or as needed. I10 Hypertension Diaper,Brief, Adult,Disposable (DISPOSABLE BRIEF) Bariatric Briefs - Prevail #10 (thickest brief). 5 per day. blood sugar diagnostic (BLOOD GLUCOSE TEST) test strip Test blood sugar(s) four times daily. Dx: Type 2 DM - Controlled E11.9 Insulin: No CPAP AutoPAP 5-12 CM H2O with humidification. Mask (per patient preference) optional chin strap (ifindicated) , filters, tubing, humidifier and lifetime supplies. Miscellaneous Medical Supply Order: Overnight pulse ox on 4LPM Diagnosis: R09.02 (checking if needsO2 increased at night) Blood-Glucose Meter (KROGNISTYLE FREEDOM LITE) monitoring kit 1 Each as needed. COMPOUNDED PRESCRIPTION TENS Unit 4 lead. Use as directed. Needs refills for leads 1 per month as needed Dispense 1 with 5 refills. (M48.06) Spinal stenosis, lumbar region, without neurogenic claudication Nebulizer NEBULIZER FOR HOME USE. DX: (J45.20) Mild intermittent asthma without complication Current Facility-Administered Medications Medication Dose Route Frequency perflutren lipid microspheres 1.3 mL in NaCl (PF) 0.9% 10 mL injection (DEFINITY) INTRAVENOUS DIRECTED PRN sodium chloride 0.9 % (flush) 10 mL (BD POSIFLUSH) 10 mL INTRAVENOUS DIRECTED PRN ALLERGIES Allergen Reactions Ciprofloxacin Diarrhea Nausea and diarrhea Mounjaro [Tirzepati* Diarrhea, Vomiting Hospitalized with dehydration and acute kidney injury. Did tolerate Trulicity Buspar [Buspirone H* Other: See Comments Insomnia Carafate [Sucralfat* tightens up chest unable to swallow Celebrex [Celecoxib] Other: See Comments tachycardia, heart palpitations Cheratussin Itching Codeine GI Upset sick to her stomach but able to tolerate in Tylenol with codeine #3 Doxycycline Intolerance, Vomiting Iodine difficulty breathing, swelling, hives Latex difficulty breathing and swelling Levaquin [Levofloxa* GI Upset Meloxicam Rash pruritic rash within hours of taking med Penicillins Swelling, Shortness of Breath Prednisone Mental Status Change Vicodin [Hydrocodon* Itching swelling ACTIVE PROBLEM LIST Mixed Hyperlipidemia - 08/07/2022 Stage 3 Chronic Kidney Disease (Hcc) - 08/07/2022 Ulcer of Left Lower Extremity, Limited to Breakdown of Skin (Hcc) - 02/20/2022 Comment: Large wound medial thigh; also 2 smaller ones (medial and lateral thigh) Bilateral Leg Edema - 02/20/2022 Comment: Not needing as much Lasix as before; would take metolazone before Lasix as before for prn use Primary Osteoarthritis of Both Knees - 03/08/2020 Comment: severe narrowing of the medial joint space with marginal osteophytes--x-ray knee 2016 Depression - 01/24/2016 Type 2 Diabetes (Hcc) - 09/01/2014 Bmi 60.0-69.9, Adult (Hcc) - 06/30/2014 Pulmonary Hypertension ([facility]) - 04/23/2013 Allergic Rhinitis - 07/15/2007 Spinal Stenosis, Lumbar Region, Without Neurogenic Claudication - 07/09/2007 Comment: not sure where this diagnosis came from since no prior MRI or CT scan with mention of this diagnosis Edema - 06/01/2007 Comment: Admit 07-08-08 for RLE venous stasis ulcer on Cubicin. Put pt on disability from 08-03-08 to 11-24-08 Iron Deficiency Anemia, Unspecified - 01/20/2007 Comment: Colon 03-22-02 ([facility]): no polyps, masses or AVMs Anxiety State - 12/09/2006 Generalized Osteoarthrosis, Unspecified Site - 10/29/2006 Esophageal Reflux - 03/16/2005 Comment: EGD in 06-30: no evidence of esophagitis but there is gastritis (H pylori was negative) Chronic Hepatitis, Unspecified ([facility]) - 03/06/2005 Comment: Liver biopsy w/ cholecystectomy Hypertension Comment: Echo at [place] 01-25: LVH, mild TR, LAE, RVE, PASP 38 (mild), no EF documented per [facility] 01-07-03: consider GERD for atyp CP, not cath candidate from obesity, doubt cardiac source ECG 03-30: NSR with PVC, lat T flattening, no ischemia/injury (ECG NL in 10-27 at [place]) Rec for Dobut Echo in 05-28 per [facility] ([facility]) prior to rec gastric bypass (Study 07-21-03 was NL) Admit for BRYAN in 09-29: rec Cardizem and Lopressor after negative enzymes, outpt stress Dobut Echo 11-18-05: 80% APMHR, No RWMA, NL but limited by not achieving APMHR LDL 96, HDL 45, TG 45 in 01-01 Restarted K supplements for K of 3.3 in 08-01 as pt on Lasix Order placed for Holter in 04-04 after ED visit for palpitations Metoprolol to 100 mg bid in 04-04 for BP and palpitations Holter 04-04: no AF, VT but pt with 7 sec pause Metop changed to Hydralazine and HCTZ as inpt in 04-04 with the Holter findings Carotids at [place] in 04-04: 1-15% stenosis bilaterally Obstructive Sleep Apnea Comment: Scheduled sleep study in 11-3012-08-06: sleep time 60 minutes/294 minutes studied, AHI 48, low sat 79%-rec auto-titrating CPAP Trial of an auto-titrating CPAP in 11-30: unable to sleep long enough for diagnosis Phoned pt at work 12-24-06 to call about scheduling auto Asthma Social History Tobacco Use Smoking status: Never Smokeless tobacco: Never Tobacco comments: Father smoked in childhood home . ETS exposure in current home. Vaping Use Vaping status: Never Used Substance Use Topics Alcohol use: No Drug use: No Review of Systems Respiratory: Negative. Cardiovascular: Negative. OBJECTIVE BP 138/82 Pulse 75 SpO2 96% LMP 02/11/2011 Physical Exam Vitals and nursing note reviewed. Constitutional: General: She is awake. She is not in acute distress. Appearance: Normal appearance. She is well-developed and well-groomed. She is not ill-appearing, toxic-appearing or diaphoretic. HENT: Head: Normocephalic. Right Ear: External ear normal. Left Ear: External ear normal. Nose: Nose normal. Mouth/Throat: Dentition: Abnormal dentition. Dental tenderness and dental abscesses present. Eyes: General: Vision grossly intact. Conjunctiva/sclera: Conjunctivae normal. Pupils: Pupils are equal, round, and reactive to light. Neck: Vascular: No JVD. Trachea: Trachea normal. Pulmonary: Effort: Pulmonary effort is normal. No accessory muscle usage, prolonged expiration or respiratory distress. Musculoskeletal: Cervical back: Neck supple. Skin: General: Skin is warm and dry. Capillary Refill: Capillary refill takes less than 2 seconds. Neurological: General: No focal deficit present. Mental Status: She is alert and oriented to person, place, and time. Mental status is at baseline. Psychiatric: Attention and Perception: Attention and perception normal. Mood and Affect: Mood and affect normal. Speech: Speech normal. Behavior: Behavior normal. Behavior is cooperative. Thought Content: Thought content normal. Cognition and Memory: Cognition and memory normal. Judgment: Judgment normal. ASSESSMENT/PLAN: 1. Dental infection - ICD9: 522.4, ICD10: K04.7 (primary diagnosis) Follow up with dentist. - CLINDAMYCIN HCL 300 MG CAPSULE 2. Pulmonary hypertension (HCC) - ICD9: 416.8, ICD10: I27.20 Needs home o2, 2 lm via nasal canula 8 hours during the day, 8 hours added to PAP machine at night. - OXYGEN (HOME THERAPY) 3. Obstructive sleep apnea - ICD9: 327.23, ICD10: G47.33 See #2 - OXYGEN (HOME THERAPY) 4. Moderate persistent asthma without complication - ICD9: 493.90, ICD10: J45.40 See #2 - OXYGEN (HOME THERAPY) 5. On supplemental oxygen therapy - ICD9: V46.2, ICD10: Z99.81 See #2 - OXYGEN (HOME THERAPY) 6. Morbid obesity (HCC) - ICD9: 278.01, ICD10: E66.01 Weight decreasing - Behavioral intervention, - Pharmacological intervention, and - Add Topiramate - TOPIRAMATE 25 MG TABLET Portions of this note have been entered by ancillary staff. I have reviewed and when necessary edited, so that they are an adequate record of my encounter with this patient Please note that parts of this document were created using voice recognition software and therefore may contain grammatical errors. Patient verbalizes understanding of instructions from today's visit and in agreement with treatmentplan. Questions answered. Agrees to call the office if questions, concerns of issues with acute symptoms not improving or if they worsen. See diagnoses and orders for additional plan(s). Allergies and medications were reviewed, list was updated, and refills given if needed. Past medical, surgical, social, and family history reviewed and updated as appropriate. Encouraged proper diet & exercise as well as compliance with taking medications. Age- appropriate health preventative measures were discussed. . Return if symptoms worsen or fail to improve, for Keep next scheduled appointment.. Silvestre Jain APRN-NIKKY documented [facility] Telephone encounter Note * Telephone Encounter - Mary Woods RN - 10/20/2023 7:45 PM EDT Patient calling with request for antibiotic for "tooth infection". States her jaw has been swollen and painful x 3 days. States she can't get in to see her dentist for a week. Advised appointment andscheduled tomorrow with Silvestre Jain [employer]. Mary Woods RN [facility]08-26-2024 Miscellaneous Notes* Telephone Encounter - Mary Woods RN - 10/20/2023 7:45 PM EDT Patient calling with request for antibiotic for "tooth infection". States her jaw has been swollen and painful x 3 days. States she can't get in to see her dentist for a week. Advised appointment andscheduled tomorrow with Silvestre Jain [employer]. Mary Woods RN documented in this [facility]08[facility]24 Telephone encounter Note * Telephone Encounter - Lexii Fowler RN - 10/17/2023 8:42 AM EDT Order faxed to [facility] [place]. Patient notified. Lexii Fowler RN [facility]08[facility] Miscellaneous Notes* Telephone Encounter - Lexii Fowler RN - 10/17/2023 8:42 AM EDT Order faxed to [facility] [place]. Patient notified. Lexii Fowler RN * Telephone Encounter - Erica Cannon MD - 10/16/2023 6:28 PM EDT Filed order * Telephone Encounter - Isabell Tan LPN - 10/16/2023 9:19 AM EDT Pt calling stating that her Rolator walker is broken and they tried to repair it but they could notand there is no warranty left on it.. [facility] advised pt that they need a new rx faxed to them so they can get pt another Rolator walker. Pended order that is currently in [facility]. Isabell Tan LPN documented in this encounter[facility]08-[facility]24 Telephone encounter Note * Telephone Encounter - Erica Cannon MD - 10/16/2023 6:28 PM EDT Filed order [facility]08-[facility] Telephone encounter Note* Telephone Encounter - Isabell Tan LPN - 10/16/2023 9:19 AM EDT Pt calling stating that her Rolator walker is broken and they tried to repair it but they could notand there is no warranty left on it.. [facility] advised pt that they need a new rx faxed to them so they can get pt another Rolator walker. Pended order that is currently in [facility]. 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 Chelsea is a 62 year old who presents for an annual gynecologic exam with c/o longsstanding RLQ pain that is intermitent that is menstrual cramp like.Denies bleeding. Is not sexually active.. Postmenopausal: Yes since age 46 HRT use: No. 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 Put pt on disability from 08-03-08 to 11-24-08 No date: Esophageal reflux 10/29/2006: GENERAL OSTEOARTHROSIS 01/20/2007: Headache(784.0) Comment: [facility] 12-26: consid Sjogren's, CT chest/MRI head/HYUN/KEO/OSMANY/ANCA/SSA/SSB neg Again reinforced the need to start CPAP on 03-04-07: unable to afford as of 04-03 for insurance issues 07/31/2007: INSOMNIA NOS 01/20/2007: IRON DEFIC ANEMIA NOS Comment: Colon 03-22-02 ([facility]): no polyps, masses or AVMs No date: Lactose intolerance 10/20/2014: Low blood potassium 07/08/2016: Low magnesium level No date: Morbid obesity (HCC) No date: Obesity, unspecified No date: Obstructive sleep apnea No date: Other dyspnea and respiratory abnormality 03/08/2020: Primary osteoarthritis of both knees Comment: severe narrowing of the medial joint space with marginal osteophytes--x-ray knee 2016 07/09/2007: SPINAL STENOSIS-LUMBAR 08/02/2013: Stasis edema with ulcer (HCC) 08/05/2007: Type II or unspecified type diabetes mellitus without mention of complication, not stated as uncontrolled No date: Unspecified asthma(493.90) No date: Unspecified essential hypertensionPAST SURGICAL HISTORY 03/06/05: BIOPSY LIVER NEEDLE PERCUTANEOUS 1979: DELIVERY ONLY Comment: , low cervical 1980: DELIVERY ONLY Comment: , low cervical 1986: DELIVERY ONLY Comment: , low cervical 01/30/16: COLONOSCOPY FLX DX W/COLLJ SPEC WHEN PFRMD Comment: Colonoscopy [facility] outpt 07/22/06: EGD TRANSORAL BIOPSY SINGLE/MULTIPLE 2001: ESOPHAGOGASTRODUODENOSCOPY TRANSORAL DIAGNOSTIC Comment: EGD 01/30/16: ESOPHAGOGASTRODUODENOSCOPY TRANSORAL DIAGNOSTIC Comment: EGD [facility] outpt 03/06/05: IMPLANT MESH OPN HERNIA RPR/DEBRIDEMENT CLOSURE 03/06/05: LAPAROSCOPY SURG RPR INITIAL INGUINAL HERNIA 03/06/05: LAPS SURG CHOLECYSTECTOMY W/CHOLANGIOGRAPHY 1987: LIG/TRNSXJ FLP TUBE ABDL/VAG APPR UNI/BI Comment: Tubal ligation No date: OPTX ANKLE DISLOCATION W/REPAIR/INT/XTRNL FIXJ Comment: ORIF Ankle FAMILY HISTORY Problem Relation Age of Onset other (CVA) Father Heart Mother Diabetes Mother SOCIAL HISTORY Social History Tobacco Use Smoking status: Never Smokeless tobacco: Never Tobacco comments: Father smoked in childhood home . ETS exposure in current home. Vaping Use Vaping Use: Never used Substance Use Topics Alcohol use: No Drug use: No REVIEW OF SYSTEMS Abdomen: No abdominal pain, nausea, vomiting, diarrhea, or constipation. No bloating, early satiety, indigestion, or increased flatulence. Bladder: No dysuria, gross hematuria, urinary frequency, urinary urgency, or incontinence Breast: No breast lumps, nipple d/c, overlying skin changes, redness or skin retraction Allergies and current medication updated:Yes EXAM: BP 124/72 Ht 5' 9" (1.75m) Wt 330 lb (149.7kg) LMP 02/11/2011 BMI 48.71 kg/(m^2). GENERAL: pleasant, female in no apparent distress HEENT: Normocephalic, atraumatic, mucus membranes moist, and no lesions NECK: Supple, full range of motion, no adenopathy, and thyroid normal DERMATOLOGY: Normal, without lesions, non-icteric, and non-hirsute BREAST: soft, non-tender, symmetric, no dominant mass, normal nipple-areolar complex, no lymphadenopathy, and no nipple discharge CHEST: Normal inspiratory effort ABDOMEN: soft, non-tender, no masses, and pannus large PELVIC: external genitalia normal, normal Bartholin's glands, urethra, Hulett's glands, no vulvar lesions, no cervical lesions, good vaginal support, physiologic discharge present, normal appearing perineal body and perianal region BIMANUAL: uterus normal size, shape and consistency, no adnexal masses, non- tender, and optimal exam precludedd by obesity ASSESSMENT/PLAN: 1) Health maintenance: Pap done with HPV. Mammogram ordered Colon cancer screening: up to date with screening 2) Follow up one year or sooner as needed Jame Castañeda MD documented [facility]08-[facility]24 Telephone encounter Note * Telephone Encounter - Aminta Red LPN - 09/29/2023 3:39 PM EDT [facility] calling and needs Office notes in April for Gel Overlay mattress. 05/23/23 office notes faxed.to [facility]. [facility] Work Phone: 1(336) 756-264708-05-2024 Miscellaneous Notes* Telephone Encounter - Aminta Red LPN - 09/29/2023 3:39 PM EDT [facility] calling and needs Office notes in April for Gel Overlay mattress. 05/23/23 office notes faxed.to Amparo. documented in this encounterNew[facility]08-05-2024 Telephone encounter Note * Telephone Encounter - Alona Le - 09/29/2023 10:37 AM EDT Patient has been identified by name and date of : Yes Pharmacy phones for refill(s): Requested Prescriptions Pending Prescriptions Disp Refills furosemide (LASIX) 20 mg tablet 60 tablet 10 ferrous sulfate (IRON) 325 mg (65 mg iron) tablet Sig: Take by mouth. Date of last office visit in primary care: 08/27/2023 Date of next office visit in primary care: 11/28/2023 [facility] Please advise. Thank you. Alona Le. [facility]08-05-2024 Miscellaneous Notes* Telephone Encounter - Alona Le - 09/29/2023 10:37 AM EDT Patient has been identified by name and date of : Yes Pharmacy phones for refill(s): Requested Prescriptions Pending Prescriptions Disp Refills furosemide (LASIX) 20 mg tablet 60 tablet 10 ferrous sulfate (IRON) 325 mg (65 mg iron) tablet Sig: Take by mouth. Date of last office visit in primary care: 08/27/2023 Date of next office visit in primary care: 11/28/2023 [facility] Please advise. Thank you. Alona Le. documented in this encounterNew[facility]07-31-2024 Telephone encounter Note * Telephone Encounter - Anh Hazel LPN - 09/24/2023 9:08 AM EDT Patient calling she is going to change pharmacy to [facility] so she can get her medications mailed toher. Phoned [facility] to let them know patient switching to them and fax a copy of med list to [phone]. Printed copy of last office visit note and faxed as requested. [facility]07-31-[facility] Miscellaneous Notes* Telephone Encounter - Anh Hazel LPN - 09/24/2023 9:08 AM EDT Patient calling she is going to change pharmacy to [facility] so she can get her medications mailed toher. Phoned [facility] to let them know patient switching to them and fax a copy of med list to [phone]. Printed copy of last office visit note and faxed as requested. documented in this encounterNewark Hospital07-29-2024 History of Present illness Narrative* Leticia Echavarria, [facility] - 09/22/2023 11:30 AM EDT Primary Care Pharmacy Visit CC (Reason for Consult): Diabetes (E11.9) Type 2 diabetes (HCC) (primary encounter diagnosis) Goal: A1c < 7% Last Collaborating Provider Visit: 08/27/23 Meggan Arita is a 62 year old female presenting for follow up visit telephone call. Patient consents to pharmacy collaborative practice agreement. Interim Events: Nov 2022: Previously worked with PharmD, was discharged back to PCP for DM mngt in November 2022 dueto achieving adequate control of DM. 01/01: Saw [employer], treated with Omnicef for suspected diverticulitis/cystitis; Lasix increased and Trulicity dose increased. Patient later requested to be taken off Trulicity due to ADEs. Was started on Farxiga though started experiencing diarrhea - advised to stop Farxiga on 01/25 to see if sx resolved. 01/29: PharmD encouraged pt to retry Farxiga to see if ADEs returned 02/21: patient called office wanting to switch Trulicity because she didn't feel it was helping with weight gain; patient reported fluid retention so scheduled f/up with PCP team; she also reported tolerating Farxiga fine so dose was increased; she reported stopping Trulicity ~1 mo ago so advised to restart 02/28: [employer] evaluated leg swelling; zaroxolyn dosing frequency was increased and Trulicity was switched to Mounjaro 03/05: pt had not yet started Mounjaro or increased Farxiga, so advised to do so February: pt noted diarrhea, Mounjaro was decreased and Farxiga stopped 03/26: advised to drink more water, work on dietary mods 04/16: Mounjaro increased 05/04: contacted office about infected tooth 05/06: patient reported not seeing much change with BG or weight with Mounjaro dose increase; dose increased further 05/13: Mounjaro increased 05/22: Mounjaro increased to 10mg 05/29: Unable to access Mounjaro --> started Rybelsus temporarily while awaiting supply of Mounjaro 06/03: Pt was able to obtain Mounjaro 10mg so it was restarted; atorvastatin initiated 06/29: Mounjaro increased to 12.5mg weekly 08/03: seen for urinary frequency and pain; sent to ER; dx with diverticulitis, treated with metronidazole and cipro 08/26: Mounjaro increased to 15mg HPI: Said last week was rough, had some stomach upset. Feeling better this week. Feels normal but is having some constipation (she had this with last dose as well). States she eats a lot of greens and veggies, but bowels not soft. Admits not drinking much water. First dose of 15mg Mounjaro was last Friday. Having some weight loss. Current DM Medications: Tirzepatide (Mounjaro) 15mg weekly on Saturdays Past DM medications: Ozempic - didn't feel it worked well for her Trulicity - didn't feel it worked well for her Mounjaro - said this put her in the hospital SMBGS (Fingersticks) All Bgs <145 mg/dL Preventative Medications: On HYUN/ARB: Yes On Statin: Yes ROS: Patient denies CP, SOB, YI, blurred vision, dizziness or lightheadedness Patient denies symptoms of hypoglycemia (sweating, anxiety, palpitations, hunger, and tremor) Patient denies symptoms of hyperglycemia (polyuria, polydipsia, polyphagia) Patient denies potential medication adverse effects MEDICATIONS: Pill bottles are not present. Adherence: denies missed doses. Pharmacy: [id number] - [place] [address] - [address] [facility] [phone] [id number] Rx coverage: Payor: [facility] MEDICAID / Plan: [facility] MEDICAID / Product Type: Medicaid / Medications affordable? Yes Diabetes Supplies: Yes Organization system: ACTIVE PROBLEM LIST Hypertension Obstructive Sleep Apnea Asthma Esophageal Reflux Generalized Osteoarthrosis, Unspecified Site Anxiety State Iron Deficiency Anemia, Unspecified Edema Spinal Stenosis, Lumbar Region, Without Neurogenic Claudication Allergic Rhinitis Chronic Hepatitis, Unspecified (Hcc) Pulmonary Hypertension (Hcc) Bmi 60.0-69.9, Adult (Hcc) Type 2 Diabetes (Hcc) Depression Primary Osteoarthritis of Both Knees Ulcer of Left Lower Extremity, Limited to Breakdown of Skin (Hcc) Bilateral Leg Edema Mixed Hyperlipidemia Stage 3 Chronic Kidney Disease (Hcc) PAST MEDICAL HISTORY Diagnosis Date Acute gastritis without mention of hemorrhage ALLERGIC RHINITIS NOS 07/15/2007 ANXIETY STATE NOS 12/09/2006 Carpal tunnel syndrome 04/10/2007 Bilateral symptoms with the left worse than the right as of 04-03 CHOLELITH W CHOLECYS NEC 02/07/2005 Lap favio in 03-01 Chronic hepatitis, unspecified (HCC) 03/06/2005 Depression Edema 06/01/2007 Admit 07-08-08 for RLE venous stasis ulcer on Cubicin. Put pt on disability from 08-03-08 to 11-24-08 Esophageal reflux GENERAL OSTEOARTHROSIS 10/29/2006 Headache(784.0) 01/20/2007 [facility] 12-26: consid Sjogren's, CT chest/MRI head/HYUN/KEO/OSMANY/ANCA/SSA/SSB neg Again reinforced the need to start CPAP on 03-04-07: unable to afford as of 04-03 for insurance issues INSOMNIA NOS 07/31/2007 IRON DEFIC ANEMIA NOS 01/20/2007 Colon 03-22-02 ([facility]): no polyps, masses or AVMs Lactose intolerance Low blood potassium 10/20/2014 Low magnesium level 07/08/2016 Morbid obesity (HCC) Obesity, unspecified Obstructive sleep apnea Other dyspnea and respiratory abnormality Primary osteoarthritis of both knees 03/08/2020 severe narrowing of the medial joint space with marginal osteophytes--x-ray knee 2016 SPINAL STENOSIS-LUMBAR 07/09/2007 Stasis edema with ulcer (HCC) 08/02/2013 Type II or unspecified type diabetes mellitus without mention of complication, not stated as uncontrolled 08/05/2007 Unspecified asthma(493.90) Unspecified essential hypertension Past medical history reviewed. ALLERGIES Allergen Reactions Ciprofloxacin Diarrhea Nausea and diarrhea Mounjaro [Tirzepati* Diarrhea, Vomiting Hospitalized with dehydration and acute kidney injury. Did tolerate Trulicity Buspar [Buspirone H* Other: See Comments Insomnia Carafate [Sucralfat* tightens up chest unable to swallow Celebrex [Celecoxib] Other: See Comments tachycardia, heart palpitations Cheratussin Itching Codeine GI Upset sick to her stomach but able to tolerate in Tylenol with codeine #3 Doxycycline Intolerance, Vomiting Iodine difficulty breathing, swelling, hives Latex difficulty breathing and swelling Levaquin [Levofloxa* GI Upset Meloxicam Rash pruritic rash within hours of taking med Penicillins Swelling, Shortness of Breath Prednisone Mental Status Change Vicodin [Hydrocodon* Itching swelling Medication List Medication Directions Comments Action/Plan albuterol (PROVENTIL) 2.5 mg /3 mL (0.083 %) nebulizer solution inhale contents of one vial in nebulizer every 6 hours if needed for wheezing and shortness of breath albuterol HFA (PROVENTIL HFA, VENTOLIN HFA) 90 mcg/actuation inhaler Inhale 2 Puffs as instructed every 4 hours as needed for wheezing/shortness of breath. ascorbic acid, vitamin C, (VITAMIN C) 500 mg tablet Take 1 tablet by mouth once daily. atorvastatin (LIPITOR) 10 mg tablet Take 1 tablet by mouth once daily. Blood Pressure Test Kit-Large (QUICK RESPONSE BP MONITOR) Check blood pressure daily or as needed. I10 Hypertension blood sugar diagnostic (BLOOD GLUCOSE TEST) test strip Test blood sugar(s) four times daily. Dx: Type 2 DM - Controlled E11.9 Insulin: No blood sugar diagnostic (BLOOD GLUCOSE TEST) test strip Test blood sugar(s) 4 times daily. Dx: Type 2 DM - Controlled E11.9 Insulin: No blood sugar diagnostic (RELION PRIME TEST STRIPS) test strip Test glucose 4 x per day. Dx: E11.9. Insulin use: no Blood-Glucose Meter (FREESTYLE FREEDOM LITE) monitoring kit 1 Each as needed. buPROPion XL (WELLBUTRIN XL) 300 mg 24 hr tablet take 1 tablet by mouth once daily Cholecalciferol, Vitamin D3, 50 mcg (2,000 unit) cap Take 2 capsules by mouth once daily. COMPOUNDED PRESCRIPTION TENS Unit 4 lead. Use as directed. Needs refills for leads 1 per month as needed Dispense 1 with 5 refills. (M48.06) Spinal stenosis, lumbar region, without neurogenic claudication CPAP AutoPAP 5-12 CM H2O with humidification. Mask (per patient preference) optional chin strap (ifindicated) , filters, tubing, humidifier and lifetime supplies. cyclobenzaprine (FLEXERIL) 5 mg tablet Take 1-2 tablets by mouth three times a day as needed for muscle spasm. Diaper,Brief, Adult,Disposable (DISPOSABLE BRIEF) Bariatric Briefs - Prevail #10 (thickest brief). 5 per day. dicyclomine (BENTYL) 10 mg capsule Take 1 capsule by mouth before meals and at bedtime. ferrous sulfate (IRON ORAL) Take by mouth. fluticasone (FLONASE) 50 mcg/actuation nasal spray Use 2 Sprays in each nostril once daily as needed. furosemide (LASIX) 20 mg tablet TAKE 1-2 TABLETS BY MOUTH ONCE DAILY NEEDED FOR EDEMA/ FLUID RETENTION ipratropium (ATROVENT) 0.02 % nebulizer solution Use 2.5 mL via nebulizer four times daily as needed (wheezing). Use over 5-15minutes. Use in addition to albuterol nebulizer. Lancets lancets Test blood sugar(s) 4 times daily. Dx: Type 2 DM - Controlled E11.9 Insulin: No LORazepam (ATIVAN) 1 mg tablet Take 0.5-1 tablets by mouth once daily as needed for anxiety for up to 30 days. losartan (COZAAR) 100 mg tablet Take 1 tablet by mouth once daily. metOLazone (ZAROXOLYN) 5 mg tablet Take 1 tablet by mouth once daily as needed. Take 1/2 hour before lasix. Patient not taking: Reported on 01/29/2023 [employer] [facility] [employer] Order: Overnight pulse ox on 4LPM Diagnosis: R09.02 (checking if needsO2 increased at night) mometasone-formoterol (DULERA) 200-5 mcg/actuation inhaler Inhale 1 Puff as instructed two times a day. Rinse mouth after use. montelukast (SINGULAIR) 10 mg tablet Take 1 tablet by mouth daily at bedtime. Patient taking differently: Take 10 mg by mouth daily at bedtime. As needed Nebulizer NEBULIZER FOR HOME USE. DX: (J45.20) Mild intermittent asthma without complication nystatin (MYCOSTATIN) powder Apply 1 application to affected area four times daily. pantoprazole DR (PROTONIX) 40 mg tablet Take 1 tablet by mouth once daily. polyethylene glycol 3350 (MIRALAX) 17 gram/dose powder 2 scoop in liquid daily as needed for bowel movement potassium chloride ER (KLOR-CON) 20 mEq tablet Take 1 tablet by mouth two times a day. As directed tirzepatide (MOUNJARO) 15 mg/0.5 mL pen injector Inject 15 mg subcutaneously one time a week. venlafaxine ER (EFFEXOR XR) 75 mg 24 hr capsule Take 1 capsule by mouth once daily. WALKER ROLLATOR SEAT WITH 6" WHEELS - RED Diagnosis: Unsteady gait, primary osteoarthritis both knees, decreased mobility Zinc Acetate, Oral, 25 mg (zinc) cap Take 1 capsule by mouth once daily. Exam: [facility] 02/11/2011 Last 3 Encounter BP Readings: Date: BP: 08/27/2023 150/78 08/04/2023 144/68 05/23/2023 120/80 Wt: 149.7 kg (330 lb) BMI: 50.18 kg/(m^2) LABS: Reviewed Lab Results Component Value Date HBA1C 4.8 05/23/2023 HBA1C 4.9 11/05/2022 HBA1C 4.7 08/30/2022 HBA1C 5.3 02/27/2022 HBA1C 6.9 09/05/2020 HBA1C 6.7 03/28/2020 HBA1C 8.4 11/06/2019 CMP: Glucose 92 05/23/2023 BUN 21 05/23/2023 Creatinine, Whole Blood (iSTAT) 1.44 05/23/2023 Sodium 143 05/23/2023 Potassium 4.2 05/23/2023 Chloride 104 05/23/2023 CO2 30 05/23/2023 Protein, Total 7.7 05/23/2023 Albumin 3.9 05/23/2023 Calcium 9.3 05/23/2023 Alkaline Phosphatase 112 05/23/2023 Bilirubin, Total 0.5 05/23/2023 AST 18 05/23/2023 ALT 11 05/23/2023 No results found for: "GFR" CrCl cannot be calculated (Unknown ideal weight.). Lab Results Component Value Date CHOL 160 05/23/2023 CHOL 155 11/05/2022 CHOL 119 03/28/2020 LDL 91 05/23/2023 LDL 70 03/28/2020 HDL 54 05/23/2023 HDL 51 11/05/2022 HDL 37 03/28/2020 TG 77 05/23/2023 TG 46 11/05/2022 TG 59 03/28/2020 The 10-year ASCVD risk score (Annabella CHAPA, et al., 2019) is: 22.4% Values used to calculate the score: Age: 62 years Sex: Female Is Non- : Yes Diabetic: Yes Tobacco smoker: No Systolic Blood Pressure: 150 mmHg Is BP treated: Yes HDL Cholesterol: 54 mg/dL Total Cholesterol: 160 mg/dL Albumin/Creat Ratio (mg/g) Date Value 11/06/2019 Not calculated PHARMACOTHERAPY ASSESSMENT/PLAN: 1. Type 2 diabetes (HCC) - ICD9: 250.00, ICD10: E11.9 A1c goal < 7%; controlled (last A1c 4.8%); SMBGs well controlled; tolerating Mounjaro well; no concerns for lows; happy with weight loss; no med changes; will have PharmD sign off from DM care Continue Mounjaro 15mg weekly Care Transition Back to PCP Our mutual patient, Meggan Arita, who was referred to primary care pharmacy services for Diabetes management, has achieved adequate control during their care with us. . We will not be schedulingfurther follow up with pharmacy at this time. They have been encouraged to follow up with you for ongoing management. As always, you may refer Meggan Arita back to pharmacy for management in thefuture. Next PCP team appointment: 11/27 Thank you for utilizing primary care pharmacy services. Leticia Echavarria, PharmD, BCPS Primary Care Clinical Pharmacist Time spent: 13 mins documented in this encounterNew[facility]07-12-2024 Telephone encounter Note * Telephone Encounter - Shant Boyle RN - 09/05/2023 8:27 AM EDT Patient reports she has an appt at [facility] she needs to cancel, and asking for phone number and name ofdoctor she has an appt with. Reports it's an appt for her stomach. Advised patient she has a referral to see general surgery at [facility] for LLQ abdominal pain and diverticulitis, and would need to call [facility] to confirm who the appt is with. Patient agreeable. [facility]07-12-2024 Miscellaneous Notes* Telephone Encounter - Shant Boyle RN - 09/05/2023 8:27 AM EDT Patient reports she has an appt at [facility] she needs to cancel, and asking for phone number and name ofdoctor she has an appt with. Reports it's an appt for her stomach. Advised patient she has a referral to see general surgery at [facility] for LLQ abdominal pain and diverticulitis, and would need to call [facility] to confirm who the appt is with. Patient agreeable. documented in this encounterNew[facility] Hospital07-11-2024 Telephone encounter Note * Telephone Encounter - Lexii Fowler RN - 09/04/2023 9:58 AM EDT The patient has been identified by name and date of : Yes Caregiver verified no other encounters exist for this prescription request: Yes Caregiver confirmed with patient/requestor that no other refills are due, in the near future, with this provider at this time: Yes The last office visit in the department: 08/27/2023 Does the patient have a future office visit with this provider/department: Yes 11/28/2023 Requested Prescriptions Pending Prescriptions Disp Refills venlafaxine ER (EFFEXOR XR) 75 mg 24 hr capsule 90 capsule 3 Sig: Take 1 capsule by mouth once daily. Lexii Fowler RN September 04, 2023 9:59 AM [facility]07-11-2024 Miscellaneous Notes* Telephone Encounter - Lexii Fowler RN - 09/04/2023 9:58 AM EDT The patient has been identified by name and date of : Yes Caregiver verified no other encounters exist for this prescription request: Yes Caregiver confirmed with patient/requestor that no other refills are due, in the near future, with this provider at this time: Yes The last office visit in the department: 08/27/2023 Does the patient have a future office visit with this provider/department: Yes 11/28/2023 Requested Prescriptions Pending Prescriptions Disp Refills venlafaxine ER (EFFEXOR XR) 75 mg 24 hr capsule 90 capsule 3 Sig: Take 1 capsule by mouth once daily. Lexii Fowler RN September 04, 2023 9:59 AM documented in this encounterNewark Hospital07-05-2024 Telephone encounter Note * Telephone Encounter - Sridevi Isabel LPN - 08/29/2023 2:16 PM EDT Home care Certification Form 485 received from [facility]. For cert dates 05/22/23-07/20/23 that were signed on 06/10/23. New Certification Patient's home health 485 form / care plan for stated certification period reviewed and signed. Relevant medical records were reviewed. No changes were indicated [facility]07-05-[facility] Miscellaneous Notes* Telephone Encounter - Sridevi Isabel LPN - 08/29/2023 2:16 PM EDT Home care Certification Form 485 received from [facility]. For cert dates 05/22/23-07/20/23 that were signed on 06/10/23. New Certification Patient's home health 485 form / care plan for stated certification period reviewed and signed. Relevant medical records were reviewed. No changes were indicated documented in this encounterNewark Hospital07-03-2024 Telephone encounter Note * Telephone Encounter - Ruchi Malone LPN - 08/27/2023 3:34 PM EDT Images from the original note were not included. Electronic PA completed for mounajro 15mg. This was approved. Prior authorization approved Payer: [facility] Your PA request for [id number] was approved for 365 days. The PA# assigned is [id number]. Approved medication: Mounjaro. Approval Details Authorization number: [id number] Authorized from August 27, 2023 to August 25, 2024 Electronic appeal: Not supported View History Medication Being Authorized tirzepatide (MOUNJARO) 15 mg/0.5 mL pen injector Inject 15 mg subcutaneously one time a week. Dispense: 4 Each Refills: 2 Start: 08/27/2023 Class: Normal Diagnoses: Type 2 diabetes (HCC) This order has been released to its destination. To be filled at: [place] [address] - [address] - [phone] [facility]07-03-2024 Miscellaneous Notes* Telephone Encounter - Ruchi Malone LPN - 08/27/2023 3:34 PM EDT Images from the original note were not included. Electronic PA completed for mounajro 15mg. This was approved. Prior authorization approved Payer: [facility] Your PA request for [id number] was approved for 365 days. The PA# assigned is [id number]. Approved medication: Mounjaro. Approval Details Authorization number: [id number] Authorized from August 27, 2023 to August 25, 2024 Electronic appeal: Not supported View History Medication Being Authorized tirzepatide (MOUNJARO) 15 mg/0.5 mL pen injector Inject 15 mg subcutaneously one time a week. Dispense: 4 Each Refills: 2 Start: 08/27/2023 Class: Normal Diagnoses: Type 2 diabetes (HCC) This order has been released to its destination. To be filled at: [place] [address] [id number] - [phone] documented [facility] History of Present illness Narrative* Silvestre Jain APRN.[employer] - 08/27/2023 1:41 PM EDT SUBJECTIVE Meggan Arita is a 62 year old female here today for a check up on her medical problems. Chief Complaint Patient presents with: ER F/U: [facility] ER 08/04/2023 for possible kidney stone but CT scan showed diverticulitis. Treated withmetronidazole and ciprofloxacin Patient states has not felt much improvement since treatment Discuss O2 usage for DME: Is using it with CPAP machine just at bedtime. Will only use it during the day if really short of breath or wheezing. Follow Up HPI Meggan Arita is a 62 year old female. She is an established patient of Erica Cannon MD. Here today for a routine follow up and ER follow up. Seen in the ER at [facility] on 08/04/2023. Diagnosed with diverticulitis as seen on CT scan. Today she notes she is still with abdominal pain. Rates 7/10. Not getting better. No nausea or vomiting. Had some loose stools. Treated with Flagyl and Cipro. Pancrease was okay per patient per ER work up. Across the lower abdomen is cramping. No blood in stool.Due for colonoscopy. 3 month follow up. O2 use with CPAP at night, 2 l/m. Compliant with CPAP and getting benefit from its use. Will use o2 occasionally at 2 l/m during the day if having increased wheezing or shortness of breath. Continues on Mounjaro for DM control and weight loss. Tolerating well. Would like to increase to the 15 mg/week dose. Has been losing weight. Her medications were reviewed today and her list is now up to date. Medications Current Outpatient Medications Medication Sig albuterol HFA (PROVENTIL HFA, VENTOLIN HFA) 90 mcg/actuation inhaler Inhale 2 Puffs as instructed every 4 hours as needed for wheezing/shortness of breath. LORazepam (ATIVAN) 1 mg tablet Take 0.5-1 tablets by mouth once daily as needed for anxiety for up to 30 days. mometasone-formoterol (DULERA) 200-5 mcg/actuation inhaler Inhale 1 Puff as instructed two times a day. Rinse mouth after use. buPROPion XL (WELLBUTRIN XL) 300 mg 24 hr tablet take 1 tablet by mouth once daily cyclobenzaprine (FLEXERIL) 5 mg tablet Take 1-2 tablets by mouth three times a day as needed for muscle spasm. atorvastatin (LIPITOR) 10 mg tablet Take 1 tablet by mouth once daily. Cholecalciferol, Vitamin D3, 50 mcg (2,000 unit) cap Take 2 capsules by mouth once daily. Zinc Acetate, Oral, 25 mg (zinc) cap Take 1 capsule by mouth once daily. ascorbic acid, vitamin C, (VITAMIN C) 500 mg tablet Take 1 tablet by mouth once daily. potassium chloride ER (KLOR-CON) 20 mEq tablet Take 1 tablet by mouth two times a day. As directed furosemide (LASIX) 20 mg tablet TAKE 1-2 TABLETS BY MOUTH ONCE DAILY NEEDED FOR EDEMA/ FLUID RETENTION albuterol (PROVENTIL) 2.5 mg /3 mL (0.083 %) nebulizer solution inhale contents of one vial in nebulizer every 6 hours if needed for wheezing and shortness of breath fluticasone (FLONASE) 50 mcg/actuation nasal spray Use 2 Sprays in each nostril once daily as needed. montelukast (SINGULAIR) 10 mg tablet Take 1 tablet by mouth daily at bedtime. (Patient taking differently: Take 10 mg by mouth daily at bedtime. As needed) pantoprazole DR (PROTONIX) 40 mg tablet Take 1 tablet by mouth once daily. losartan (COZAAR) 100 mg tablet Take 1 tablet by mouth once daily. ipratropium (ATROVENT) 0.02 % nebulizer solution Use 2.5 mL via nebulizer four times daily as needed (wheezing). Use over 5-15minutes. Use in addition to albuterol nebulizer. nystatin (MYCOSTATIN) powder Apply 1 application to affected area four times daily. ferrous sulfate (IRON ORAL) Take by mouth. venlafaxine ER (EFFEXOR XR) 75 mg 24 hr capsule Take 1 capsule by mouth once daily. polyethylene glycol 3350 (MIRALAX) 17 gram/dose powder 2 scoop in liquid daily as needed for bowel movement tirzepatide (MOUNJARO) 15 mg/0.5 mL pen injector Inject 15 mg subcutaneously one time a week. metroNIDAZOLE (FLAGYL) 500 mg tablet Take 1 tablet by mouth every 8 hours for 10 days. dicyclomine (BENTYL) 10 mg capsule Take 1 capsule by mouth before meals and at bedtime. sulfamethoxazole-trimethoprim (BACTRIM DS) 800-160 mg per tablet Take 1 tablet by mouth two times aday for 10 days. WALKER ROLLATOR SEAT WITH 6" WHEELS - RED Diagnosis: Unsteady gait, primary osteoarthritis both knees, decreased mobility metOLazone (ZAROXOLYN) 5 mg tablet Take 1 tablet by mouth once daily as needed. Take 1/2 hour before lasix. (Patient not taking: Reported on 01/29/2023) blood sugar diagnostic (BLOOD GLUCOSE TEST) test strip Test blood sugar(s) 4 times daily. Dx: Type 2 DM - Controlled E11.9 Insulin: No blood sugar diagnostic (RELION PRIME TEST STRIPS) test strip Test glucose 4 x per day. Dx: E11.9. Insulin use: no Blood Pressure Test Kit-Large (QUICK RESPONSE BP MONITOR) Check blood pressure daily or as needed. I10 Hypertension Diaper,Brief, Adult,Disposable (DISPOSABLE BRIEF) Bariatric Briefs - Prevail #10 (thickest brief). 5 per day. blood sugar diagnostic (BLOOD GLUCOSE TEST) test strip Test blood sugar(s) four times daily. Dx: Type 2 DM - Controlled E11.9 Insulin: No Lancets lancets Test blood sugar(s) 4 times daily. Dx: Type 2 DM - Controlled E11.9 Insulin: No CPAP AutoPAP 5-12 CM H2O with humidification. Mask (per patient preference) optional chin strap (ifindicated) , filters, tubing, humidifier and lifetime supplies. Miscellaneous Medical Supply Order: Overnight pulse ox on 4LPM Diagnosis: R09.02 (checking if needsO2 increased at night) Blood-Glucose Meter (FREESTYLE FREEDOM LITE) monitoring kit 1 Each as needed. COMPOUNDED PRESCRIPTION TENS Unit 4 lead. Use as directed. Needs refills for leads 1 per month as needed Dispense 1 with 5 refills. (M48.06) Spinal stenosis, lumbar region, without neurogenic claudication Nebulizer NEBULIZER FOR HOME USE. DX: (J45.20) Mild intermittent asthma without complication Current Facility-Administered Medications Medication Dose Route Frequency perflutren lipid microspheres 1.3 mL in NaCl (PF) 0.9% 10 mL injection (DEFINITY) INTRAVENOUS DIRECTED PRN sodium chloride 0.9 % (flush) 10 mL (BD POSIFLUSH) 10 mL INTRAVENOUS DIRECTED PRN ALLERGIES Allergen Reactions Ciprofloxacin Diarrhea Nausea and diarrhea Mounjaro [Tirzepati* Diarrhea, Vomiting Hospitalized with dehydration and acute kidney injury. Did tolerate Trulicity Buspar [Buspirone H* Other: See Comments Insomnia Carafate [Sucralfat* tightens up chest unable to swallow Celebrex [Celecoxib] Other: See Comments tachycardia, heart palpitations Cheratussin Itching Codeine GI Upset sick to her stomach but able to tolerate in Tylenol with codeine #3 Doxycycline Intolerance, Vomiting Iodine difficulty breathing, swelling, hives Latex difficulty breathing and swelling Levaquin [Levofloxa* GI Upset Meloxicam Rash pruritic rash within hours of taking med Penicillins Swelling, Shortness of Breath Prednisone Mental Status Change Vicodin [Hydrocodon* Itching swelling ACTIVE PROBLEM LIST Mixed Hyperlipidemia - 08/07/2022 Stage 3 Chronic Kidney Disease (Hcc) - 08/07/2022 Ulcer of Left Lower Extremity, Limited to Breakdown of Skin ([facility]) - 02/20/2022 Comment: Large wound medial thigh; also 2 smaller ones (medial and lateral thigh) Bilateral Leg Edema - 02/20/2022 Comment: Not needing as much Lasix as before; would take metolazone before Lasix as before for prn use Primary Osteoarthritis of Both Knees - 03/08/2020 Comment: severe narrowing of the medial joint space with marginal osteophytes--x-ray knee 2016 Depression - 01/24/2016 Type 2 Diabetes ([facility]) - 09/01/2014 Bmi 60.0-69.9, Adult ([facility]) - 06/30/2014 Pulmonary Hypertension ([facility]) - 04/23/2013 Allergic Rhinitis - 07/15/2007 Spinal Stenosis, Lumbar Region, Without Neurogenic Claudication - 07/09/2007 Comment: not sure where this diagnosis came from since no prior MRI or CT scan with mention of this diagnosis Edema - 06/01/2007 Comment: Admit 07-08-08 for RLE venous stasis ulcer on Cubicin. Put pt on disability from 08-03-08 to 11-24-08 Iron Deficiency Anemia, Unspecified - 01/20/2007 Comment: Colon 03-22-02 ([facility]): no polyps, masses or AVMs Anxiety State - 12/09/2006 Generalized Osteoarthrosis, Unspecified Site - 10/29/2006 Esophageal Reflux - 03/16/2005 Comment: EGD in 06-30: no evidence of esophagitis but there is gastritis (H pylori was negative) Chronic Hepatitis, Unspecified (Hcc) - 03/06/2005 Comment: Liver biopsy w/ cholecystectomy Hypertension Comment: Echo at [place] 01-25: LVH, mild TR, LAE, RVE, PASP 38 (mild), no EF documented per Seese Seese 01-07-03: consider GERD for atyp CP, not cath candidate from obesity, doubt cardiac source ECG 03-30: NSR with PVC, lat T flattening, no ischemia/injury (ECG NL in 10-27 at [place]) Rec for Dobut Echo in 05-28 per Seese (Darshan) prior to rec gastric bypass (Study 07-21-03 was NL) Admit for BRYAN in 09-29: rec Cardizem and Lopressor after negative enzymes, outpt stress Dobut Echo 11-18-05: 80% APMHR, No RWMA, NL but limited by not achieving APMHR LDL 96, HDL 45, TG 45 in 01-01 Restarted K supplements for K of 3.3 in 08-01 as pt on Lasix Order placed for Holter in 04-04 after ED visit for palpitations Metoprolol to 100 mg bid in 04-04 for BP and palpitations Holter 04-04: no AF, VT but pt with 7 sec pause Metop changed to Hydralazine and HCTZ as inpt in 04-04 with the Holter findings Carotids at [place] in 04-04: 1-15% stenosis bilaterally Obstructive Sleep Apnea Comment: Scheduled sleep study in 11-3012-08-06: sleep time 60 minutes/294 minutes studied, AHI 48, low sat 79%-rec auto-titrating CPAP Trial of an auto-titrating CPAP in 11-30: unable to sleep long enough for diagnosis Phoned pt at work 12-24-06 to call about scheduling auto Asthma Social History Tobacco Use Smoking status: Never Smokeless tobacco: Never Tobacco comments: Father smoked in childhood home . ETS exposure in current home. Vaping Use Vaping Use: Never used Substance Use Topics Alcohol use: No Drug use: No Review of Systems Respiratory: Negative. Cardiovascular: Negative. Gastrointestinal: Positive for abdominal pain. Negative for blood in stool, constipation, nausea and vomiting. OBJECTIVE BP 150/78 Pulse 80 Resp 20 LMP 02/11/2011 Physical Exam Vitals and nursing note reviewed. Constitutional: General: She is awake. She is not in acute distress. Appearance: Normal appearance. She is well-developed and well-groomed. She is not ill-appearing, toxic-appearing or diaphoretic. HENT: Head: Normocephalic. Right Ear: External ear normal. Left Ear: External ear normal. Nose: Nose normal. Eyes: General: Vision grossly intact. Conjunctiva/sclera: Conjunctivae normal. Pupils: Pupils are equal, round, and reactive to light. Neck: Vascular: No JVD. Trachea: Trachea normal. Cardiovascular: Rate and Rhythm: Normal rate and regular rhythm. Pulses: Normal pulses. Heart sounds: Normal heart sounds. No murmur heard. Pulmonary: Effort: Pulmonary effort is normal. No accessory muscle usage, prolonged expiration or respiratory distress. Breath sounds: Normal breath sounds. Abdominal: General: Bowel sounds are normal. Musculoskeletal: Cervical back: Neck supple. Skin: General: Skin is warm and dry. Capillary Refill: Capillary refill takes less than 2 seconds. Neurological: General: No focal deficit present. Mental Status: She is alert and oriented to person, place, and time. Mental status is at baseline. Psychiatric: Attention and Perception: Attention and perception normal. Mood and Affect: Mood and affect normal. Speech: Speech normal. Behavior: Behavior normal. Behavior is cooperative. Thought Content: Thought content normal. Cognition and Memory: Cognition and memory normal. Judgment: Judgment normal. ASSESSMENT/PLAN: 1. Diverticulitis - ICD9: 562.11, ICD10: K57.92 (primary diagnosis) Will see [facility] general surgery to discuss colonoscopy. Since still symptomatic try treating x10 days with flagyl and bactrim. Bentyl for pain/cramping. - CONSULT TO GENERAL SURGERY - METRONIDAZOLE 500 MG TABLET - DICYCLOMINE 10 MG CAPSULE - SULFAMETHOXAZOLE 800 MG-TRIMETHOPRIM 160 MG TABLET 2. Left lower quadrant abdominal pain - ICD9: 789.04, ICD10: R10.32 - CONSULT TO GENERAL SURGERY - DICYCLOMINE 10 MG CAPSULE 3. Type 2 diabetes (HCC) - ICD9: 250.00, ICD10: E11.9 - Controlled/stable. - Continue current medications - Counseled on healthy diet and regular exercise - Discussed need for and benefit of weight loss. No weight on file for this encounter. - TIRZEPATIDE 15 MG/0.5 ML SUBCUTANEOUS PEN INJECTOR 4. Primary hypertension - ICD9: 401.9, ICD10: I10 - Factors affecting control: suspected white coat hypertension - Continue current medications - Recommend home blood pressure monitoring, to bring results to next visit - Encouraged sodium restriction, DASH or Mediterranean diet - Recommend regular aerobic exercise 5. Obstructive sleep apnea - ICD9: 327.23, ICD10: G47.33 Stable. Continues to benefit from use of CPAP with o2 at night. 6. Moderate persistent asthma without complication - ICD9: 493.90, ICD10: J45.40 Currently stable. When asthma is exacerbated and she has increased shortness of breath and/or wheezing she requires daytime use of supplemental oxygen at 2 l/m via nasal canula. 7. On supplemental oxygen therapy - ICD9: V46.2, ICD10: Z99.81 See #5 and #6 Portions of this note have been entered by ancillary staff. I have reviewed and when necessary edited, so that they are an adequate record of my encounter with this patient Please note that parts of this document were created using voice recognition software and therefore may contain grammatical errors. Patient verbalizes understanding of instructions from today's visit and in agreement with treatmentplan. Questions answered. Agrees to call the office if questions, concerns of issues with acute symptoms not improving or if they worsen. See diagnoses and orders for additional plan(s). Allergies and medications were reviewed, list was updated, and refills given if needed. Past medical, surgical, social, and family history reviewed and updated as appropriate. Encouraged proper diet & exercise as well as compliance with taking medications. Age- appropriate health preventative measures were discussed. Return in about 3 months (around 11/27/2023) for Follow up on chronic conditions and medications.. Silvestre Jain APRN-[employer] documented [facility] this [facility] Telephone encounter Note * Telephone Encounter - Treva rC RN - 08/21/2023 10:54 AM EDT Patient calls back and reschedules appointment to 08/27/2023. [facility] Miscellaneous Notes* Telephone Encounter - Treva Cr RN - 08/21/2023 10:54 AM EDT Patient calls back and reschedules appointment to 08/27/2023. * Telephone Encounter - Sridevi Isabel LPN - 08/20/2023 1:29 PM EDT Patient has an appointment on 08/22/23 and 08/25/23. Silvestre is willing to combine both appointments. Which appointment would patient like to keep? Message left asking patient to return call. documented in this encounterNew[facility]06-[facility] Telephone encounter Note * Telephone Encounter - Sridevi Isabel LPN - 08/20/2023 1:29 PM EDT Patient has an appointment on 08/22/23 and 08/25/23. Silvestre is willing to combine both appointments. Which appointment would patient like to keep? Message left asking patient to return call. [facility] Telephone encounter Note* Telephone Encounter - Treva Cr RN - 08/16/2023 9:25 AM EDT The patient has been identified by name and date of : Yes Caregiver verified no other encounters exist for this prescription request: Yes Caregiver confirmed with patient/requestor that no other refills are due, in the near future, with this provider at this time: Yes The last office visit in the department: 05/23/2023 Does the patient have a future office visit with this provider/department: Yes 08/22/2023 Requested Prescriptions Pending Prescriptions Disp Refills albuterol HFA (PROVENTIL HFA, VENTOLIN HFA) 90 mcg/actuation inhaler 1 Each 1 Sig: Inhale 2 Puffs as instructed every 4 hours as needed for wheezing/shortness of breath. LORazepam (ATIVAN) 1 mg tablet 30 tablet 0 Sig: Take 0.5-1 tablets by mouth once daily as needed for anxiety for up to 30 days. mometasone-formoterol (DULERA) 200-5 mcg/actuation inhaler 1 Each 2 Sig: Inhale 1 Puff as instructed two times a day. Rinse mouth after use. Treva Cr RN August 16, 2023 9:26 AM [facility] Miscellaneous Notes* Telephone Encounter - Treva Cr RN - 08/16/2023 9:25 AM EDT The patient has been identified by name and date of : Yes Caregiver verified no other encounters exist for this prescription request: Yes Caregiver confirmed with patient/requestor that no other refills are due, in the near future, with this provider at this time: Yes The last office visit in the department: 05/23/2023 Does the patient have a future office visit with this provider/department: Yes 08/22/2023 Requested Prescriptions Pending Prescriptions Disp Refills albuterol HFA (PROVENTIL HFA, VENTOLIN HFA) 90 mcg/actuation inhaler 1 Each 1 Sig: Inhale 2 Puffs as instructed every 4 hours as needed for wheezing/shortness of breath. LORazepam (ATIVAN) 1 mg tablet 30 tablet 0 Sig: Take 0.5-1 tablets by mouth once daily as needed for anxiety for up to 30 days. mometasone-formoterol (DULERA) 200-5 mcg/actuation inhaler 1 Each 2 Sig: Inhale 1 Puff as instructed two times a day. Rinse mouth after use. Treva Cr RN August 16, 2023 9:26 AM documented in this encounterNewark Hospital06-18-[facility]24 History of Present illness Narrative* Tom Bolaños - 08/12/2023 9:24 AM EDT Last saw pcp: 05/23/23 Subjective: Patient presents to clinic c/o painful toenails. They state that the nails are especially painful with shoe gear and pressure. Patient states that nails 1-5 b/l are painful. Patient admits to being diabetic. No other pedal complaints at this time. Patient states no change in medications or medical history since last visit. Objective: Patient presents to clinic ambulating in [facility] Vasc: DP and PT pulses are palpable bilateral. CFT is less than 5 seconds bilateral. Skin temperature is warm to cool proximal to distal bilateral. There is moderate edema or varicosities noted. Neuro: Protective sensation is intact to the foot and toes when tested with the 5.07 SWM bilateral.Vibratory sensation is decreased at the hallux IPJ bilateral. The hallux is downgoing bilateral. Derm: Nails 1-5 b/l are discolored-yellow, thick, crumbly, dystrophic and with subungal debris. Skin is of normal turgor, texture and hair growth is decreased bilateral. There are no hyperkeratosis, ulcerations, scars, verruca or other lesions noted. Ortho: Muscle strength is 5/5 for all pedal groups tested. Ankle joint DF is decreased with the knee extended with no pain or crepitus noted. 1st MPJ ROM is decreased bilateral. Assessment: (B35.1) Onychomycosis (primary encounter diagnosis) (M79.675) Pain in toe of left foot (M79.674) Pain in toe of right foot (E11.42) Diabetic polyneuropathy associated with type 2 diabetes mellitus (HCC) Plan: Patient was seen and evaluated. Nails 1-5 bilateral were debrided in length and thickness. Small bleed to right 3rd toe. Band aide applied. Patient was instructed on the continued importance of diabetic foot care along with proper diet andkeeping their blood sugar under control to prevent complications. Patient is to RTC in 3-4 months. Tom Bolaños DPM * Lili Mendoza RN - 08/12/2023 9:05 AM EDT Patient presents with: Left Foot - Established Patient, Follow Up, Diabetic Foot Care Right Foot - Established Patient, Follow Up, Diabetic Foot Care Patient presents for follow up diabetic foot care. RIC 05/08/23 documented in this encounterNew[facility]06-18-[facility]24 Instructions* Patient Instructions* Tom Bolaños - 08/12/2023 9:24 AM EDT Diabetes Foot Care Instructions When you have diabetes, proper foot care is very important. Poor foot care may lead to amputation of a foot or leg. As a person with diabetes, you are more vulnerable to foot problems, because diabetes can damage your nerves and reduce blood flow to your feet. Here are some diabetes foot care tips to follow: Wash and Dry Your Feet Daily Use mild soaps Use warm water Pat your skin dry; do not rub. Thoroughly dry your feet. After washing, use lotion on your feet to prevent cracking. Do not put lotion between your toes. Examine Your Feet Each Day Check the tops and bottoms of your feet. Have someone else look at your feet if you cannot see them. Check for dry, cracked skin. Look for blisters, cuts, scratches, or other sores. Check for redness, increased warmth, or tenderness when touching any area of your feet. Check for ingrown toenails, corns, and calluses. If you get a blister or sore from your shoes, do not "pop" it. Apply a bandage and wear a differentpair of shoes. Take Care of Your Toenails Cut toenails after bathing, when they are soft. Cut toenails straight across and smooth with a nail file. Avoid cutting into the corners of toes. Do not cut cuticles. If you have neuropathy (or decreased sensation in your feet) a clinical geneticist should always cut your toenails. Be Careful When Exercising Walk and exercise in comfortable shoes. Do not exercise when you have open sores on your feet. Protect Your Feet With Shoes and Socks Never go barefoot. Always protect your feet by wearing shoes or hard-soled slippers or footwear. Avoid shoes with high heels and pointed toes. Avoid shoes that expose your toes or heels (such as open-toed shoes or sandals). These types of shoes increase your risk for injury and potential infections. Try on new footwear with the type of socks you usually wear. Do not wear new shoes for more than an hour at a time. Change your socks daily. Look and feel inside your shoes before putting them on to make sure there are no foreign objects orrough areas. Avoid tight socks. Wear natural-fiber socks (cotton, wool, or a cotton-wool blend). Wear special shoes if your health care provider recommends them. Wear shoes/boots that will protect your feet from various weather conditions (cold, moisture, etc.). Make sure your shoes fit properly. If you have neuropathy (nerve damage), you may not notice that your shoes are too tight. Perform the "footwear test" described below. Footwear Test Use this simple test to see if your shoes fit correctly: Stand on a piece of paper. (Make sure you are standing and not sitting, because your foot changes shape when you stand.) Trace the outline of your foot. Trace the outline of your shoe. Compare the tracings: Is the shoe too narrow? Is your foot crammed into the shoe? The shoe should be at least 1/2 inch longer than your longest toe and as wide as your foot. Proper Shoe Choices The following types of shoes are best for people with diabetes Closed toes and heels Leather uppers without a seam inside At least 1/2 inch extra space at the end of your longest toe Inside of shoe should be soft with no rough areas Outer sole should be made of stiff material Shoes should be at least as wide as your feet Tips for Foot Care in Diabetes Don't wait to treat a minor foot problem if you have diabetes. Follow your health care provider's guidelines and first aid guidelines. Report foot injuries and infections to your health care provider immediately. Check water temperature with your elbow, not your foot. Do not use a heating pad on your feet. Do not cross your legs. Do not self-treat your corns, calluses, or other foot problems. Go to your health care provider or clinical geneticist to treat these conditions. [facility] Telephone encounter Note * Telephone Encounter - Erica Cannon MD - 08/08/2023 8:11 PM EDT Noted. Follow up sooner if needed [facility]06-14[facility]2024 Miscellaneous Notes* Telephone Encounter - Erica Cannon MD - 08/08/2023 8:11 PM EDT Noted. Follow up sooner if needed * Telephone Encounter - Sujata Dotson LPN - 08/06/2023 9:42 AM EDT Patient calling stating that her home health nurse said she had a UTI. Patient then went to urgent care and dx with kidney stones. Patient was then sent to [facility] ER and dx with diverticulitis treated with 2 antibiotics. Patient then needed a follow up. Appointment made for 08/15/23 with Silvestre. Please review documented [facility] Telephone encounter Note * Telephone Encounter - Sujata Dotson LPN - 08/06/2023 9:42 AM EDT Patient calling stating that her home health nurse said she had a UTI. Patient then went to urgent care and dx with kidney stones. Patient was then sent to [facility] ER and dx with diverticulitis treated with 2 antibiotics. Patient then needed a follow up. Appointment made for 08/15/23 with Silvestre. Please review [facility] Tele[facility] encounter Note* Telephone Encounter - Gertrudis Cantrell RN - 08/05/2023 8:29 AM EDT patient was seen in on 08/03 encounter is being closed [facility]06-11-2024 Miscellaneous Notes* Telephone Encounter - Gertrudis Cantrell RN - 08/05/2023 8:29 AM EDT patient was seen in EC on 08/03 encounter is being closed * Telephone Encounter - Erica Cannon MD - 07/31/2023 5:10 PM EDT I have not seen any results to review in the computer. Noted plans to go to EC but that pain improved with drinking more fluids. * Telephone Encounter - Mary Woods RN - 07/31/2023 1:16 PM EDT Patient calling to ask if PCP reviewed urine results. She says her symptoms of burning are improving with increased water intake and cranberry tablets. She says she doesn't think a urine culture was done because she says "I didn't pee in a cup". She says she will probably come to EC today. Mary Woods RN * Telephone Encounter - Erica Cannon MD - 07/31/2023 8:06 AM EDT Need more info from nurse results of check for UTI. Was a urine culture also done? * Telephone Encounter - Rina Rincon LPN - 07/30/2023 10:14 AM EDT Attempted to reach [facility] office to inquire about the urine culture results. Decided not to leave a message on [facility] voicemail, will attempt to call back. Rina Rincon LPN * Telephone Encounter - Gertrudis Cantrell RN - 07/29/2023 6:26 PM EDT patient is calling in stating that she c/o some burning with urination to her nurse tested urineand told patient that she has a UTI and to call provider for treatment. patient unaware of what urine showed and no results or request for an order to test urine was called by nurse. please review and advise. patients uses [facility] [place] patient needs called back with information documented in [facility] History of Present illness Narrative* Fernanda Bryant APRN.NIKKY - 08/04/2023 1:40 PM EDT She came in with complaints of left lower back pain and stomach pain. Patient says she feels like she has a lot of pressure and frequency to urinate. Patient says has been going on for about 8 days. Patient denies any other symptoms. Upon checking patient CVA tenderness was 7 out of 10 on the left side. Patient did have some periumbilical discomfort on palpation as well. At this time patient seento go to the ER for full evaluation. Patient was okay with this care plan and her caregiver will take her now. documented in [facility]New[facility]06[facility] Telephone encounter Note * Telephone Encounter - Erica Cannon MD - 07/31/2023 5:10 PM EDT I have not seen any results to review in the computer. Noted plans to go to EC but that pain improved with drinking more fluids. [facility] Telephone encounter Note* Telephone Encounter - Mary Woods RN - 07/31/2023 1:16 PM EDT Patient calling to ask if PCP reviewed urine results. She says her symptoms of burning are improving with increased water intake and cranberry tablets. She says she doesn't think a urine culture was done because she says "I didn't pee in a cup". She says she will probably come to today. Mary Woods, RN [facility] Telephone encounter Note* Telephone Encounter - Erica Cannon MD - 07/31/2023 8:59 AM EDT The following approved medication requests have been transmitted electronically. Requested Prescriptions Pending Prescriptions Disp Refills buPROPion XL (WELLBUTRIN XL) 300 mg 24 hr tablet [Pharmacy Med Name: BUPROPION HCL XL 300 MG TABLET] 30 tablet 3 Sig: take 1 tablet by mouth once daily Erica Cannon MD [facility] Miscellaneous Notes* Telephone Encounter - Erica Cannon MD - 07/31/2023 8:59 AM EDT The following approved medication requests have been transmitted electronically. Requested Prescriptions Pending Prescriptions Disp Refills buPROPion XL (WELLBUTRIN XL) 300 mg 24 hr tablet [Pharmacy Med Name: BUPROPION HCL XL 300 MG TABLET] 30 tablet 3 Sig: take 1 tablet by mouth once daily Erica Cannon MD * Telephone Encounter - Gay Clements LPN - 07/30/2023 10:09 AM EDT Patient has been identified by name and date of : Yes Patient phones for refill(s): Requested Prescriptions Pending Prescriptions Disp Refills buPROPion XL (WELLBUTRIN XL) 300 mg 24 hr tablet [Pharmacy Med Name: BUPROPION HCL XL 300 MG TABLET] 30 tablet 3 Sig: take 1 tablet by mouth once daily Date of last office visit in primary care: 05/23/2023 Date of next office visit in primary care: 08/25/2023 Please advise. Thank you. Gay Clements LPN. documented in this encounterNew[facility]06-[facility] Telephone encounter Note * Telephone Encounter - Erica Cannon MD - 07/31/2023 8:06 AM EDT Need more info from nurse results of check for UTI. Was a urine culture also done? [facility] Telephone [facility] Note* Telephone Encounter - Rina Rincon LPN - 07/30/2023 10:14 AM EDT Attempted to reach [facility] office to inquire about the urine culture results. Decided not to leave a message on [facility] voicemail, will attempt to call back. Rina Rincon LPN [facility] Telephone encounter Note* Telephone Encounter - Gay Clements LPN - 07/30/2023 10:09 AM EDT Patient has been identified by name and date of : Yes Patient phones for refill(s): Requested Prescriptions Pending Prescriptions Disp Refills buPROPion XL (WELLBUTRIN XL) 300 mg 24 hr tablet [Pharmacy Med Name: BUPROPION HCL XL 300 MG TABLET] 30 tablet 3 Sig: take 1 tablet by mouth once daily Date of last office visit in primary care: 05/23/2023 Date of next office visit in primary care: 08/25/2023 Please advise. Thank you. Gay Clements LPN. [facility] Telephone encounter Note* Telephone Encounter - Gertrudis Cantrell RN - 07/29/2023 6:26 PM EDT patient is calling in stating that she c/o some burning with urination to her nurse tested urineand told patient that she has a UTI and to call provider for treatment. patient unaware of what urine showed and no results or request for an order to test urine was called by nurse. please review and advise. patients uses [facility] [place] patient needs called back with information [facility] Telephone encounter Note* Telephone Encounter - Muriel Burgess LPN - 07/22/2023 2:32 PM EDT Pt notified of provider's message. Muriel Burgess LPN [facility] Miscellaneous Notes* Telephone Encounter - Muriel Burgess LPN - 07/22/2023 2:32 PM EDT Pt notified of provider's message. Muriel Burgess LPN * Telephone Encounter - Leigh Stone MA - 07/22/2023 1:19 PM EDT LM for patient to call office. Leigh Stone MA * Telephone Encounter - Erica Cannon MD - 07/21/2023 10:56 PM EDT Follow up in office or do virtual visit if antibiotic not adequate for helping with symptoms till can be seen by dentist. The following approved medication requests have been transmitted electronically. Requested Prescriptions Signed Prescriptions Disp Refills clindamycin (CLEOCIN) 150 mg capsule 45 capsule 0 Sig: Take 3 capsules by mouth three times a day for 5 days. Authorizing Provider: ERICA CANNON MD * Telephone Encounter - Shant Boyle RN - 07/19/2023 11:11 AM EDT Patient reports she has an abscess tooth, and cannot get into the free clinic until the 2nd week ofJune. Asking if pcp would send AB to [facility]. Advised patient no doctors are in the office today, but she can be seen in EC. Patient states she doesn't have time to go to EC. Patient requests this message be sent to pcp. documented in this encounterNew[facility]05-28-[facility] Telephone encounter Note * Telephone Encounter - Leigh Stone MA - 07/22/2023 1:19 PM EDT LM for patient to call office. Leigh Stone MA [facility] Telephone encounter Note* Telephone Encounter - Erica Cannon MD - 07/21/2023 10:56 PM EDT Follow up in office or do virtual visit if antibiotic not adequate for helping with symptoms till can be seen by dentist. The following approved medication requests have been transmitted electronically. Requested Prescriptions Signed Prescriptions Disp Refills clindamycin (CLEOCIN) 150 mg capsule 45 capsule 0 Sig: Take 3 capsules by mouth three times a day for 5 days. Authorizing Provider: ERICA CANNON MD [facility] Telephone encounter Note* Telephone Encounter - Shant Boyle RN - 07/19/2023 11:11 AM EDT Patient reports she has an abscess tooth, and cannot get into the free clinic until the 2nd week ofJune. Asking if pcp would send AB to [facility]. Advised patient no doctors are in the office today, but she can be seen in EC. Patient states she doesn't have time to go to EC. Patient requests this message be sent to pcp. [facility] Telephone [facility] Note* Telephone Encounter - Silvestre Jain APRN.CNP - 07/11/2023 12:11 PM EDT A refill on her flexeril has been sent. [facility] Miscellaneous Notes* Telephone Encounter - Silvestre Jain APRN.CNP - 07/11/2023 12:11 PM EDT A refill on her flexeril has been sent. * Telephone Encounter - Treva Cr RN - 07/10/2023 11:07 AM EDT Patient calls and states that pharmacy does have the 12.5 mg Mounjaro. Patient states that she willbe picking medication up. Patient states that she has been working with therapy. Patient states that after therapy her legs are very painful. Patient states that she has been taking tylenol which has not given her any relief.Patient asking if there is any way that provider can send a muscle relaxant prescription to help with pain after therapy? Please review and advise, Treva Cr RN documented in this encounterNew[facility]05-17-2024 Miscellaneous Notes* Telephone Encounter - Sridevi Isabel LPN - 07/11/2023 9:19 AM EDT Patient notified for need of an appointment to discuss O2. She wants to wait until her next appointment in August to discuss. * Telephone Encounter - Silvestre Jain APRN.CNP - 07/11/2023 7:36 AM EDT To have all of the information needed she will need to address this with an office visit. If she can wait until her next follow up we can address it then but if this needs done sooner then bring her in. Thanks. * Telephone Encounter - Sridevi Isabel LPN - 07/11/2023 7:10 AM EDT A fax was received from [employer] asking for an office note in the last 12 month that discuss need for O2 and a recent pulse oximetry that shows patient at rest of O2 sat at 88% or below on room air.Then an improvement in stats when O2 is applied. Reviewed last office visit in the last 12 months and did not find any mention of O2 and last Oximetry report was in 2019. Please advise. documented in this encounterNew[facility]05-17-2024 Telephone encounter Note * Telephone Encounter - Sridevi Isabel LPN - 07/11/2023 9:19 AM EDT Patient notified for need of an appointment to discuss O2. She wants to wait until her next appointment in August to discuss. [facility] Telephone encounter Note* Telephone Encounter - Silvestre Jain APRN.[employer] - 07/11/2023 7:36 AM EDT To have all of the information needed she will need to address this with an office visit. If she can wait until her next follow up we can address it then but if this needs done sooner then bring her in. Thanks. [facility] Telephone encounter Note* Telephone Encounter - Sridevi Isabel LPN - 07/11/2023 7:10 AM EDT A fax was received from [employer] asking for an office note in the last 12 month that discuss need for O2 and a recent pulse oximetry that shows patient at rest of O2 sat at 88% or below on room air.Then an improvement in stats when O2 is applied. Reviewed last office visit in the last 12 months and did not find any mention of O2 and last Oximetry report was in 2019. Please advise. [facility] Telephone encounter Note* Telephone Encounter - Treva Cr RN - 07/10/2023 11:07 AM EDT Patient calls and states that pharmacy does have the 12.5 mg Mounjaro. Patient states that she willbe picking medication up. Patient states that she has been working with therapy. Patient states that after therapy her legs are very painful. Patient states that she has been taking tylenol which has not given her any relief.Patient asking if there is any way that provider can send a muscle relaxant prescription to help with pain after therapy? Please review and advise, Treva Cr RN [facility] Telephone encounter Note* Telephone Encounter - Maria Dolores Ivan RN - 07/09/2023 11:25 AM EDT Call placed to patient and notified of below message. Patient verbalizes understanding. Maria Dolores Ivan RN [facility] Miscellaneous Notes* Telephone Encounter - Maria Dolores Ivan RN - 07/09/2023 11:25 AM EDT Call placed to patient and notified of below message. Patient verbalizes understanding. Maria Dolores Ivan RN * Telephone Encounter - Silvestre Jain APRN.CNP - 07/09/2023 9:27 AM EDT Noted and agree, taking the 10 while waiting for the 12.5 is okay. * Telephone Encounter - Maria Dolores Ivan RN - 07/09/2023 8:18 AM EDT Patient calls to update provider that she hasn't been able to receive Mounjaro 12.5 mg. She reportsthat she is third on the list at [facility] to receive medication and is asking what she should do. Patient reports she still has Mounjaro 10 mg. Instructed patient to see if she can get increased dose from another pharmacy or continue using the10 mg until able to get the increased dose. Patient was going to check with [facility] to get an update on dispense date. Patient requested provider be updated that she is not taking the increased dose. Maria Dolores Ivan RN documented in this encounterNew[facility] Hospital05-15-2024 Telephone encounter Note * Telephone Encounter - Silvestre Jain APRN.CNP - 07/09/2023 9:27 AM EDT Noted and agree, taking the 10 while waiting for the 12.5 is okay. [facility] Telephone encounter Note* Telephone Encounter - Maria Dolores Ivan RN - 07/09/2023 8:18 AM EDT Patient calls to update provider that she hasn't been able to receive Mounjaro 12.5 mg. She reportsthat she is third on the list at [facility] to receive medication and is asking what she should do. Patient reports she still has Mounjaro 10 mg. Instructed patient to see if she can get increased dose from another pharmacy or continue using the10 mg until able to get the increased dose. Patient was going to check with [facility] to get an update on dispense date. Patient requested provider be updated that she is not taking the increased dose. Maria Dolores Ivan RN [facility] Telephone encounter Note* Telephone Encounter - Ruchi Malone LPN - 07/04/2023 4:41 PM EDT Fax rec'd from [employer]. The tirzepatide was approved from 07/04/23 to 07/02/2024. Pharmacy notified. [facility] Miscellaneous Notes* Telephone Encounter - Ruchi Malone LPN - 07/04/2023 4:41 PM EDT Fax rec'd from [employer]. The tirzepatide was approved from 07/04/23 to 07/02/2024. Pharmacy notified. * Telephone Encounter - Ruchi Malone LPN - 07/01/2023 9:43 AM EDT Appeal response rec'd noting this does not meet the urgent time frame. It is not jeopardize the members health. The appeal will be reviewed within the standard time of 15 days. * Telephone Encounter - Ruchi Malone LPN - 06/30/2023 4:37 PM EDT APPEAL LETTER FAXED. * Telephone Encounter - Ruchi Malone LPN - 06/30/2023 2:05 PM EDT Electronic PA rec'd and completed for dania. This was denied. Denied 06/30/2023 1:53 PM Appeal supported: No Note from payer: Coverage is provided when the prescriber provides documentation of the members clinical response to treatment and ongoing safety monitoring. Documentation must include the following:A1C goal (a test result that shows a three-month average of blood sugars) per ADA guidelines ([place] [employer]) and A1C trends including current value (within last 6 months) A patient specific A1C goal if less than 7% and A current A1C (within the last 6 months). The [facility] Policy for Medical Necessity as posted on the [facility] website and [facility] Preferred Drug List criteriawere reviewed and per [place] Administrative Code Rule 5160-1-01 (C) and (B), a medically necessary service must include: generally accepted standards of medical practice, be clinically appropriate in administration, treatment and outcome and be the lowest cost alternative to effectively treat the condition. Please contact your provider to assist you with other treatment options that might be covered under your benefit package, or other services that might be available through the community. documented in this encounterNewark Hospital05-10-2024 History of Present illness Narrative* Silvestre Jain APRN.CNP - 07/04/2023 4:15 PM EDT Can discuss at up coming August appointment. * Hallie Clement RN - 07/03/2023 9:23 AM EDT COLONOSCOPY PATIENT OUTREACH Action/ Colonoscopy Recall Patient identified by Name and : Yes. --- OUTREACH OUTCOME ACTION: Consult- Telephone Call- Pt is overdue for screening colonoscopy. Pt needs consult due to medical history and/or medications. Please call patient and schedule appointment with General Surgery Provider. Hallie Clement RN documented in this encounterNew[facility] Hospital05-07-2024 Telephone encounter Note * Telephone Encounter - Ruchi Malone LPN - 07/01/2023 9:43 AM EDT Appeal response rec'd noting this does not meet the urgent time frame. It is not jeopardize the members health. The appeal will be reviewed within the standard time of 15 days. [facility] Telephone encounter Note* Telephone Encounter - Ruchi Malone LPN - 06/30/2023 4:37 PM EDT APPEAL LETTER FAXED. [facility] Telephone encounter Note* Telephone Encounter - Ruchi Malone LPN - 06/30/2023 2:05 PM EDT Electronic PA rec'd and completed for dania. This was denied. Denied 06/30/2023 1:53 PM Appeal supported: No Note from payer: Coverage is provided when the prescriber provides documentation of the members clinical response to treatment and ongoing safety monitoring. Documentation must include the following:A1C goal (a test result that shows a three-month average of blood sugars) per ADA guidelines ([place] [employer]) and A1C trends including current value (within last 6 months) A patient specific A1C goal if less than 7% and A current A1C (within the last 6 months). The [facility] Policy for Medical Necessity as posted on the [facility] website and [facility] Preferred Drug List criteriawere reviewed and per [place] Administrative Code Rule 5160-1-01 (C) and (B), a medically necessary service must include: generally accepted standards of medical practice, be clinically appropriate in administration, treatment and outcome and be the lowest cost alternative to effectively treat the condition. Please contact your provider to assist you with other treatment options that might be covered under your benefit package, or other services that might be available through the community. [facility] Telephone encounter Note* Telephone Encounter - Leticia Echavarria RPh - 06/30/2023 11:25 AM EDT During PharmD appt today, pt noted tolerating Mounjaro 10mg well. Has completed 4 doses and is due for refill of medication. She has successfully lost weight and is interested in increasing the dose.Order for 12.5mg pens pended for PCP signature. Pt prefers script be sent to [facility]. Requested Prescriptions Pending Prescriptions Disp Refills tirzepatide (MOUNJARO) 12.5 mg/0.5 mL pen injector 2 mL 5 Sig: Inject 12.5 mg subcutaneously one time a week. Leticia Echavarria RPh [facility] Work Phone: 1(483) 110-696605-06-2024 Miscellaneous Notes* Telephone Encounter - Leticia Echavarria RPh - 06/30/2023 11:25 AM EDT During PharmD appt today, pt noted tolerating Mounjaro 10mg well. Has completed 4 doses and is due for refill of medication. She has successfully lost weight and is interested in increasing the dose.Order for 12.5mg pens pended for PCP signature. Pt prefers script be sent to [facility]. Requested Prescriptions Pending Prescriptions Disp Refills tirzepatide (MOUNJARO) 12.5 mg/0.5 mL pen injector 2 mL 5 Sig: Inject 12.5 mg subcutaneously one time a week. Leticia Echavarria RPh documented in this encounterNewark Hospital05-06-2024 History of Present illness Narrative* Leticia Echavarria RPh - 06/30/2023 11:00 AM EDT Primary Care Pharmacy Visit CC (Reason for Consult): Diabetes (E11.9) Type 2 diabetes (HCC) (primary encounter diagnosis) Goal: A1c < 7% Last Collaborating Provider Visit: 05/23/23 Meggan Airta is a 62 year old female presenting for follow up visit telephone call. Patient consents to pharmacy collaborative practice agreement. Interim Events: Nov 2022: Previously worked with PharmD, was discharged back to PCP for DM mngt in November 2022 dueto achieving adequate control of DM. 01/01: Saw [employer], treated with [employer] for suspected diverticulitis/cystitis; Lasix increased and Trulicity dose increased. Patient later requested to be taken off Trulicity due to ADEs. Was started on Farxiga though started experiencing diarrhea - advised to stop Farxiga on 01/25 to see if sx resolved. 01/29: PharmD encouraged pt to retry Farxiga to see if ADEs returned 02/21: patient called office wanting to switch Trulicity because she didn't feel it was helping with weight gain; patient reported fluid retention so scheduled f/up with PCP team; she also reported tolerating Farxiga fine so dose was increased; she reported stopping Trulicity ~1 mo ago so advised to restart 02/28: [employer] evaluated leg swelling; zaroxolyn dosing frequency was increased and Trulicity was switched to Mounjaro 03/05: pt had not yet started Mounjaro or increased Farxiga, so advised to do so February: pt noted diarrhea, Mounjaro was decreased and Farxiga stopped 03/26: advised to drink more water, work on dietary mods 04/16: Mounjaro increased 05/04: contacted office about infected tooth 05/06: patient reported not seeing much change with BG or weight with Mounjaro dose increase; dose increased further 05/13: Mounjaro increased 05/22: Mounjaro increased to 10mg 05/29: Unable to access Mounjaro --> started Rybelsus temporarily while awaiting supply of Mounjaro 06/03: Pt was able to obtain Mounjaro 10mg so it was restarted; atorvastatin initiated HPI: Happy with her weight loss, thinks she has lost about 40 lbs. Was able to get Mounjaro 10mg from [facility]. Just used her last pen on Friday. Has tolerated it well. No diarrhea or nausea. Energy level is good. Knees are giving her problems, seeing a doctor for this. Will be getting injections in both knees today, thinks they are giving her a steroid. Started atorvastatin, no side effects she has noticed. Current DM Medications: Tirzepatide (Mounjaro) 10mg weekly Past DM medications: Ozempic - didn't feel it worked well for her Trulicity - didn't feel it worked well for her Mounjaro - said this put her in the hospital SMBGS (Fingersticks) Seeing Bgs ~145 mg/dL; no issues with low blood sugars Preventative Medications: On HYUN/ARB: Yes On Statin: Yes ROS: Patient denies CP, SOB, severe YI, blurred vision, dizziness or lightheadedness Patient denies symptoms of hypoglycemia (sweating, anxiety, palpitations, hunger, and tremor) Patient denies symptoms of hyperglycemia (polyuria, polydipsia, polyphagia) Patient denies potential medication adverse effects DIET/EXERCISE/SOCIAL Hx: No changes; tries to avoid most carbs/sugar Physical activity very limited MEDICATIONS: Pill bottles are not present. Adherence: denies missed doses. [facility]: [id number] [place] [address] - [address] [facility] [phone] [id number] Rx coverage: Payor: [facility] MEDICAID / Plan: [facility] MEDICAID / Product Type: Medicaid / Medications affordable? Yes Diabetes Supplies: Yes Organization system: ACTIVE PROBLEM LIST Hypertension Obstructive Sleep Apnea Asthma Esophageal Reflux Generalized Osteoarthrosis, Unspecified Site Anxiety State Iron Deficiency Anemia, Unspecified Edema Spinal Stenosis, Lumbar Region, Without Neurogenic Claudication Allergic Rhinitis Chronic Hepatitis, Unspecified (Hcc) Pulmonary Hypertension (Hcc) Bmi 60.0-69.9, Adult (Hcc) Type 2 Diabetes (Hcc) Depression Primary Osteoarthritis of Both Knees Ulcer of Left Lower Extremity, Limited to Breakdown of Skin (Hcc) Bilateral Leg Edema Mixed Hyperlipidemia Stage 3 Chronic Kidney Disease (Hcc) PAST MEDICAL HISTORY Diagnosis Date Acute gastritis without mention of hemorrhage ALLERGIC RHINITIS NOS 07/15/2007 ANXIETY STATE NOS 12/09/2006 Carpal tunnel syndrome 04/10/2007 Bilateral symptoms with the left worse than the right as of 04-03 CHOLELITH W CHOLECYS NEC 02/07/2005 Lap favio in 03-01 Chronic hepatitis, unspecified (HCC) 03/06/2005 Depression Edema 06/01/2007 Admit 07-08-08 for RLE venous stasis ulcer on Cubicin. Put pt on disability from 08-03-08 to 11-24-08 Esophageal reflux GENERAL OSTEOARTHROSIS 10/29/2006 Headache(784.0) 01/20/2007 [facility] 12-26: consid Sjogren's, CT chest/MRI head/HYUN/KEO/OSMANY/ANCA/SSA/SSB neg Again reinforced the need to start CPAP on 03-04-07: unable to afford as of 04-03 for insurance issues INSOMNIA NOS 07/31/2007 IRON DEFIC ANEMIA NOS 01/20/2007 Colon 03-22-02 ([facility]): no polyps, masses or AVMs Lactose intolerance Low blood potassium 10/20/2014 Low magnesium level 07/08/2016 Morbid obesity (HCC) Obesity, unspecified Obstructive sleep apnea Other dyspnea and respiratory abnormality Primary osteoarthritis of both knees 03/08/2020 severe narrowing of the medial joint space with marginal osteophytes--x-ray knee 2016 SPINAL STENOSIS-LUMBAR 07/09/2007 Stasis edema with ulcer (HCC) 08/02/2013 Type II or unspecified type diabetes mellitus without mention of complication, not stated as uncontrolled 08/05/2007 Unspecified asthma(493.90) Unspecified essential hypertension Past medical history reviewed. ALLERGIES Allergen Reactions Ciprofloxacin Diarrhea Nausea and diarrhea Mounjaro [Tirzepati* Diarrhea, Vomiting Hospitalized with dehydration and acute kidney injury. Did tolerate Trulicity Buspar [Buspirone H* Other: See Comments Insomnia Carafate [Sucralfat* tightens up chest unable to swallow Celebrex [Celecoxib] Other: See Comments tachycardia, heart palpitations Cheratussin Itching Codeine GI Upset sick to her stomach but able to tolerate in Tylenol with codeine #3 Doxycycline Intolerance, Vomiting Iodine difficulty breathing, swelling, hives Latex difficulty breathing and swelling Levaquin [Levofloxa* GI Upset Meloxicam Rash pruritic rash within hours of taking med Penicillins Swelling, Shortness of Breath Prednisone Mental Status Change Vicodin [Hydrocodon* Itching swelling Medication List Medication Directions Comments Action/Plan albuterol (PROVENTIL) 2.5 mg /3 mL (0.083 %) nebulizer solution inhale contents of one vial in nebulizer every 6 hours if needed for wheezing and shortness of breath albuterol HFA (PROVENTIL HFA, VENTOLIN HFA) 90 mcg/actuation inhaler Inhale 2 Puffs as instructed every 4 hours as needed for wheezing/shortness of breath. ascorbic acid, vitamin C, (VITAMIN C) 500 mg tablet Take 1 tablet by mouth once daily. atorvastatin (LIPITOR) 10 mg tablet Take 1 tablet by mouth once daily. Blood Pressure Test Kit-Large (QUICK RESPONSE BP MONITOR) Check blood pressure daily or as needed. I10 Hypertension blood sugar diagnostic (BLOOD GLUCOSE TEST) test strip Test blood sugar(s) four times daily. Dx: Type 2 DM - Controlled E11.9 Insulin: No blood sugar diagnostic (BLOOD GLUCOSE TEST) test strip Test blood sugar(s) 4 times daily. Dx: Type 2 DM - Controlled E11.9 Insulin: No blood sugar diagnostic (RELION PRIME TEST STRIPS) test strip Test glucose 4 x per day. Dx: E11.9. Insulin use: no Blood-Glucose Meter (FREESTYLE FREEDOM LITE) monitoring kit 1 Each as needed. buPROPion XL (WELLBUTRIN XL) 300 mg 24 hr tablet Take 1 tablet by mouth once daily. Cholecalciferol, Vitamin D3, 50 mcg (2,000 unit) cap Take 2 capsules by mouth once daily. COMPOUNDED PRESCRIPTION TENS Unit 4 lead. Use as directed. Needs refills for leads 1 per month as needed Dispense 1 with 5 refills. (M48.06) Spinal stenosis, lumbar region, without neurogenic claudication CPAP AutoPAP 5-12 CM H2O with humidification. Mask (per patient preference) optional chin strap (ifindicated) , filters, tubing, humidifier and lifetime supplies. cyclobenzaprine (FLEXERIL) 5 mg tablet Take 1 tablet by mouth three times daily as needed. Diaper,Brief, Adult,Disposable (DISPOSABLE BRIEF) Bariatric Briefs - Prevail #10 (thickest brief). 5 per day. dicyclomine (BENTYL) 10 mg capsule Take 1 capsule by mouth three times a day. Patient not taking: Reported on 01/29/2023 ferrous sulfate (IRON ORAL) Take by mouth. fluticasone (FLONASE) 50 mcg/actuation nasal spray Use 2 Sprays in each nostril once daily as needed. furosemide (LASIX) 20 mg tablet TAKE 1-2 TABLETS BY MOUTH ONCE DAILY NEEDED FOR EDEMA/ FLUID RETENTION ipratropium (ATROVENT) 0.02 % nebulizer solution Use 2.5 mL via nebulizer four times daily as needed (wheezing). Use over 5-15minutes. Use in addition to albuterol nebulizer. Lancets lancets Test blood sugar(s) 4 times daily. Dx: Type 2 DM - Controlled E11.9 Insulin: No LORazepam (ATIVAN) 1 mg tablet Take 0.5-1 tablets by mouth once daily as needed for anxiety for up to 30 days. Do not start before May 14, 2023. losartan (COZAAR) 100 mg tablet Take 1 tablet by mouth once daily. metOLazone (ZAROXOLYN) 5 mg tablet Take 1 tablet by mouth once daily as needed. Take 1/2 hour before lasix. Patient not taking: Reported on 01/29/2023 Miscellaneous Medical Supply Order: Overnight pulse ox on 4LPM Diagnosis: R09.02 (checking if needsO2 increased at night) mometasone-formoterol (DULERA) 200-5 mcg/actuation inhaler Inhale 1 Puff as instructed two times a day. Rinse mouth after use. montelukast (SINGULAIR) 10 mg tablet Take 1 tablet by mouth daily at bedtime. Patient taking differently: Take 10 mg by mouth daily at bedtime. As needed Nebulizer NEBULIZER FOR HOME USE. DX: (J45.20) Mild intermittent asthma without complication nitrofurantoin monohydrate and macrocrystal (MACROBID) 100 mg capsule Take 1 capsule by mouth two times a day. nystatin (MYCOSTATIN) powder Apply 1 application to affected area four times daily. pantoprazole DR (PROTONIX) 40 mg tablet Take 1 tablet by mouth once daily. polyethylene glycol 3350 (MIRALAX) 17 gram/dose powder 2 scoop in liquid daily as needed for bowel movement potassium chloride ER (KLOR-CON) 20 mEq tablet Take 1 tablet by mouth two times a day. As directed tirzepatide (MOUNJARO) 10 mg/0.5 mL pen injector Inject 10 mg subcutaneously one time a week. venlafaxine ER (EFFEXOR XR) 75 mg 24 hr capsule Take 1 capsule by mouth once daily. WALKER ROLLATOR SEAT WITH 6" WHEELS - RED Diagnosis: Unsteady gait, primary osteoarthritis both knees, decreased mobility Zinc Acetate, Oral, 25 mg (zinc) cap Take 1 capsule by mouth once daily. Exam: LMP 02/11/2011 Last 3 Encounter BP Readings: Date: BP: 05/23/2023 120/80 02/28/2023 142/76 01/01/2023 160/86 Wt: 149.7 kg (330 lb) BMI: 50.18 kg/(m^2) LABS: Reviewed Lab Results Component Value Date HBA1C 4.8 05/23/2023 HBA1C 4.9 11/05/2022 HBA1C 4.7 08/30/2022 HBA1C 5.3 02/27/2022 HBA1C 6.9 09/05/2020 HBA1C 6.7 03/28/2020 HBA1C 8.4 11/06/2019 CMP: Glucose 92 05/23/2023 BUN 21 05/23/2023 Creatinine, Whole Blood (iSTAT) 1.44 05/23/2023 Sodium 143 05/23/2023 Potassium 4.2 05/23/2023 Chloride 104 05/23/2023 CO2 30 05/23/2023 Protein, Total 7.7 05/23/2023 Albumin 3.9 05/23/2023 Calcium 9.3 05/23/2023 Alkaline Phosphatase 112 05/23/2023 Bilirubin, Total 0.5 05/23/2023 AST 18 05/23/2023 ALT 11 05/23/2023 No results found for: "GFR" CrCl cannot be calculated (Unknown ideal weight.). Lab Results Component Value Date CHOL 160 05/23/2023 CHOL 155 11/05/2022 CHOL 119 03/28/2020 LDL 91 05/23/2023 LDL 70 03/28/2020 HDL 54 05/23/2023 HDL 51 11/05/2022 HDL 37 03/28/2020 TG 77 05/23/2023 TG 46 11/05/2022 TG 59 03/28/2020 The 10-year ASCVD risk score (Annabella CHAPA, et al., 2019) is: 13.1% Values used to calculate the score: Age: 62 years Sex: Female Is Non- : Yes Diabetic: Yes Tobacco smoker: No Systolic Blood Pressure: 120 mmHg Is BP treated: Yes HDL Cholesterol: 54 mg/dL Total Cholesterol: 160 mg/dL Albumin/Creat Ratio (mg/g) Date Value 11/06/2019 Not calculated PHARMACOTHERAPY ASSESSMENT/PLAN: 1. Type 2 diabetes (HCC) - ICD9: 250.00, ICD10: E11.9 A1c goal < 7%; controlled (last A1c 4.8%); SMBGs controlled; no issues with lows; tolerating Mounjaro well; pt eager for weight loss, has already lost ~40 lbs; will increase Mounjaro at patient request; tolerating atorvastatin well; f/up after next PCP and labs INCREASE Mounjaro to 12.5mg weekly --> will send order request to PCP team Counseled on possible GI ADEs (N/V/D/C) with dose adjustment; advised to contact PCP office if any s/sx of pancreatitis or gall bladder issues Let office know if access issues with Mounjaro Continue atorvastatin 10mg daily A1c, lipid panel, CMP with next labs Follow-up Patient is scheduled to see PCP team on 08/24. Patient to have f/up with PharmD team on 09/21. Patient verbalized understanding of instructions. Leticia Echavarria PharmD, [facility] Primary Care Clinical Pharmacist Time spent: 10 mins [facility] Telephone encounter Note * Telephone Encounter - Sridevi Isabel LPN - 06/27/2023 12:33 PM EDT PATIENT NOTIFIED OF SAME. Will call back if decides to proceed with Lymphedema Therapy. [facility]05-03-[facility] Miscellaneous Notes* Telephone Encounter - Sridevi Isabel LPN - 06/27/2023 12:33 PM EDT PATIENT NOTIFIED OF SAME. Will call back if decides to proceed with Lymphedema Therapy. * Telephone Encounter - Silvestre Jain APRN.NIKKY - 06/27/2023 7:53 AM EDT I would recommend she give it some more time with being on the higher dose of Mounjaro since weightloss is a process, we could also consider PT for lymphedema therapy and see if that is helpful but often times they cannot do this at home so with her having [facility] I'm not sure how that would work for her if she has to go somewhere for the lymphedema treatments. * Telephone Encounter - Daphne Ochoa LPN - 06/25/2023 1:59 PM EDT Patient is asking how to get rid of that area. Please advise. * Telephone Encounter - Rina Rincon LPN - 06/25/2023 1:52 PM EDT Message left on voicemail to call office for update. Rina Rincon LPN * Telephone Encounter - Silvestre Jain APRN.CNP - 06/25/2023 12:58 PM EDT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 of liver issues - COMPREHENSIVE METABOLIC PANEL - LIPID PANEL BASIC Follow-up Patient is not scheduled to see PCP team. Patient to have f/up with PharmD team on 06/29. Patient verbalized understanding of instructions. Leticia Echavarria PharmD, [facility] Primary Care Clinical Pharmacist Time spent: 25 mins documented [facility]04[facility] Miscellaneous Notes* Telephone Encounter - Ruchi Malone LPN - 06/04/2023 9:49 AM EDT Faxed appeal request and office notes to [phone]. * Telephone Encounter - Leticia Echavarria RPh - 06/04/2023 8:55 AM EDT Unlikely that Mounjaro is available at this time. Can we please submit an appeal documenting that the patient has tried and not tolerated Byetta, Trulicity, Ozempic, and Farxiga? Thanks, Leticia Echavarria PharmD, [facility] Primary Care Clinical Pharmacist * Telephone Encounter - Ruchi Malone LPN - 06/03/2023 11:59 AM EDT Asking pharmacy to review this denial. Maybe mounjaro is available now? Review allergy list * Telephone Encounter - Ruchi Malone LPN - 06/02/2023 11:19 AM EDT Images from the original note were not included. The office rc'd and completed electronic PA for semaglutide(rybelsus) 3 mg. This was denied. Coverage is provided when the member has a history of at least 120 days of therapy with THREE preferred (medication covered by the Plan) medications [ONE of the 120 day trials must be Byetta (5 mcg and 10 mcg), Victoza (18 MG/3 ML PEN) or Trulicity (0.75 mg, 1.5 mg, 3 mg and 4.5 mg)], which includebut are not limited to: Farxiga 5 and 10 mg, Invokana 100 mg and 300 mg, Victoza 18 MG/3 ML PEN, and Jardiance 10 and 25 mg. Coverage is provided when the member meets all the followin. Member has had an inadequate clinical response (the inability to reach A1C goal (l less than 7%) (a test result that shows a three-month average of blood sugars) after at least 120 days of current regimen, with use of two or more drugs concomitantly (at the same time) per ADA guidelines ([place] [employer]) and, 2. Member has documented adherence (taking medications correctly) and appropriate dose escalation (must achieve maximum recommended dose or document that maximum recommended dose is not tolerated or is clinically inappropriate) and, 3. Documentation includes a patient specific A1C goal if less than 7% and must include current A1C (within the last 6 months). Non-Preferred or Lower Cost Medications Medical Necessity Policy and [facility] Policy for Medical Necessity and[facility] Preferred Drug List criteria were reviewed and per [place] Administrative Code Rule 5160-1-01 (C) and (B), a medically necessary service must include: generally accepted standards of medical practice, be clinically appropriate in administration, treatment and outcome and be thelowest cost alternative to effectively treat the condition. Please contact your provider to assist you with other treatment options that might be covered under your benefit package, or other servicesthat might be available through the community. Payer: [facility] Electronic appeal: Not supported View History Notes Time User Attachment Attachment received from payer. 05/30/2023 5:02 PM Cchs, Rx Priorauth In Document Medication Being Authorized semaglutide (RYBELSUS) 3 mg tablet Take 1 tablet by mouth daily before breakfast. Take 30 minutes before the first food, beverage, or other oral medications of the day with no more than 4 ounces of plain water Dispense: 30 tablet Refills: 2 Start: 05/30/2023 Class: Normal Diagnoses: Type 2 diabetes (HCC) This order has been released to its destination. To be filled at: [id number] [place] [address] - [address] [facility] [phone] [id number] documented in this encounterNewark Hospital04-06-2024 Telephone encounter Note * Telephone Encounter - Mary Woods RN - 05/31/2023 8:40 AM EDT Spoke with patient. [facility] pharmacy tells her she need a prior authorization for Rybelsus. PRIOR AUTHORIZATION Medication for Prior Authorization: Rybelsus Other formulary meds available : NO Insurance Company: [employer] phone number: Patient insurance ID number: [id number] Mary Woods RN [facility]04-06-2024 Miscellaneous Notes* Telephone Encounter - Mary Woods RN - 05/31/2023 8:40 AM EDT Spoke with patient. [facility] pharmacy tells her she need a prior authorization for Rybelsus. PRIOR AUTHORIZATION Medication for Prior Authorization: Rybelsus Other formulary meds available : NO Insurance Company: [employer] phone number: Patient insurance ID number: [id number] Mary Woods RN * Telephone Encounter - Silvestre Jain APRN.CNP - 05/30/2023 3:32 PM EDT This has been sent. Please let her know. Thanks! * Telephone Encounter - Lauren Seo RN - 05/30/2023 3:23 PM EDT Pt states she has called around to several pharmacies including [facility] with no luck. Pt states sheis okay to use Rybelsus in the meantime if that is Silvestre's suggestion. Send to [facility] please. Pt would like medication sent today please and call her when prescription has gone. * Telephone Encounter - Aminta Red LPN - 05/30/2023 3:03 PM EDT Pt. informed will call [facility] and let us know. * Telephone Encounter - Silvestre Jain APRN.CNP - 05/30/2023 2:11 PM EDT I spoke with Leticia from pharmacy, her suggestion: first choice would be to try ordering a different dose in the pen to see if that is available. Gailmight have to call around to different pharmacies to check on that dose's availability. I would specifically have her call [facility] (in addition to other local pharmacies) during her search, since being an independent pharmacy may allow them to have different med access than chain pharmacies. If she can't find it anywhere then I think it would be reasonable to try the pill Rybelsus. * Telephone Encounter - Treva Cr RN - 05/30/2023 12:26 PM EDT Patient calls back asking what she should do? Patient is out of injections. Treva Cr RN * Telephone Encounter - Mary Woods RN - 05/26/2023 5:20 PM EDT Patient calling to let provider know [facility] tells her Momaria t is out of stock and on backorder. This nurse called and pharmacist says all doses are on backorder at this time. Patient says she called other pharmacies and they tell her the same. She says she cannot take Ozempic nor Trulicity. See Pharm D note 05/15/23. Please review and advise. Mary Woods, RN documented in this encounterNewark Hospital04-05-2024 Telephone encounter Note * Telephone Encounter - Silvestre Jain APRN.NIKKY - 05/30/2023 3:32 PM EDT This has been sent. Please let her know. Thanks! [facility]04-05-2024 Telephone encounter Note* Telephone Encounter - Lauren Seo RN - 05/30/2023 3:23 PM EDT Pt states she has called around to several pharmacies including [facility] with no luck. Pt states sheis okay to use Rybelsus in the meantime if that is Silvestre's suggestion. Send to [facility]. Pt would like medication sent today please and call her when prescription has gone. [facility]04-05-[facility] Telephone encounter Note* Telephone Encounter - Aminta Red LPN - 05/30/2023 3:03 PM EDT Pt. informed will call [facility] and let us know. [facility]04-05-[facility] Telephone encounter Note* Telephone Encounter - Silvestre Jain APRN.NIKKY - 05/30/2023 2:11 PM EDT I spoke with Leticia from pharmacy, her suggestion: first choice would be to try ordering a different dose in the pen to see if that is available. Gailmight have to call around to different pharmacies to check on that dose's availability. I would specifically have her call [facility] (in addition to other local pharmacies) during her search, since being an independent pharmacy may allow them to have different med access than chain pharmacies. If she can't find it anywhere then I think it would be reasonable to try the pill Rybelsus. [facility]04-05-[facility] Telephone encounter Note* Telephone Encounter - Treva Cr RN - 05/30/2023 12:26 PM EDT Patient calls back asking what she should do? Patient is out of injections. Treva Cr RN [facility]04-01-2024 Telephone encounter Note* Telephone Encounter - Mary Woods RN - 05/26/2023 5:20 PM EDT Patient calling to let provider know [facility] tells her Mounoscarro is out of stock and on backorder. This nurse called and pharmacist says all doses are on backorder at this time. Patient says she called other pharmacies and they tell her the same. She says she cannot take Ozempic nor Trulicity. See Pharm D note 05/15/23. Please review and advise. Mary Woods RN [facility]04-01-2024 Miscellaneous Notes* Telephone Encounter - Lili Cummings RN - 05/26/2023 5:00 PM EDT Pt called and is notified of providers results and instructions. Pt voices understanding. Lili Cummings RN * Telephone Encounter - Silvestre Jain APRN.NIKKY - 05/26/2023 4:28 PM EDT Please let Chelsea know that labs are overall stable. Her thyroid levels, cholesterol levels, iron panel and ferritin, b12, and magnesium are all considered normal. Her hgba1c is very well controlled at4.8%. Vitamin d is low, kidneys show just a slight increase in stress on the kidneys, and she is anemic but this is overall stable. To help the kidneys she should try to drink an extra glass of water daily. For her vitamin d we can increase her vitamin d supplement from 1 capsule to 2 capsules daily. Silvestre Jain APRN.NIKKY * Telephone Encounter - Anh Hazel LPN - 05/26/2023 10:38 AM EDT Patient calling asking for her lab results, done on Friday. She is little anxious to hear the results. Please advise Latest Ref Rng 05/23/2023 WBC 3.70 - 11.00 k/uL 6.53 RBC 3.90 - 5.20 m/uL 3.70 (L) Hemoglobin 11.5 - 15.5 g/dL 10.9 (L) Hematocrit 36.0 - 46.0 % 37.4 MCV 80.0 - 100.0 fL 101.1 (H) MCH 26.0 - 34.0 pg 29.5 MCHC 30.5 - 36.0 g/dL 29.1 (L) RDW-CV 11.5 - 15.0 % 12.1 Platelet Count 150 - 400 k/uL 248 MPV 9.0 - 12.7 fL 11.7 Neut% % 68.8 Abs Neut (ANC) 1.45 - 7.50 k/uL 4.49 Lymph% % 15.3 Abs Lymph 1.00 - 4.00 k/uL 1.00 [place]% % 11.3 Abs [place] <0.87 k/uL 0.74 Eosin% % 3.4 Abs Eosin <0.46 k/uL 0.22 Baso% % 0.9 Abs Baso <0.11 k/uL 0.06 Immature Gran % % 0.3 IMMATURE GRANS (ABS) <0.10 k/uL <0.03 NRBC /100 WBC 0.0 Absolute nRBC <0.01 k/uL <0.01 DTYPE Auto Protein, Total 6.3 - 8.0 g/dL 7.7 Albumin 3.9 - 4.9 g/dL 3.9 Calcium 8.5 - 10.2 mg/dL 9.3 Bilirubin, Total 0.2 - 1.3 mg/dL 0.5 Alkaline Phosphatase 34 - 123 U/L 112 AST 13 - 35 U/L 18 ALT 7 - 38 U/L 11 Glucose 74 - 99 mg/dL 92 BUN 7 - 21 mg/dL 21 Creatinine 0.58 - 0.96 mg/dL 1.44 (H) Sodium 136 - 144 mmol/L 143 Potassium 3.7 - 5.1 mmol/L 4.2 Chloride 97 - 105 mmol/L 104 CO2 22 - 30 mmol/L 30 Anion Gap 9 - 18 mmol/L 9 eGFR >=60 mL/min/1.73m 41 (L) Total Cholesterol, Nonfasting <200 mg/dL 160 Triglycerides, Nonfasting <150 mg/dL 77 HDL Cholesterol, Nonfasting >39 mg/dL 54 LDL Cholesterol, Nonfasting <100 mg/dL 91 Non HDL Cholesterol, Nonfasting <130 mg/dL 106 VLDL Cholesterol, Nonfasting <30 mg/dL 15 Total Chol/HDL Ratio, Nonfasting <5.10 mg/dL 2.96 LDL/HDL Ratio, Nonfasting <2.54 mg/dL 1.69 Iron 41 - 186 ug/dL 66 TIBC 232 - 386 ug/dL 276 Transferrin Saturation 15.0 - 57.0 % 23.9 Hemoglobin A1C 4.3 - 5.6 % 4.8 Estimated Average Glucose mg/dL 91 TSH 0.270 - 4.200 mIU/L 4.110 Vitamin D 25 Hydroxy 31.0 - 80.0 ng/mL 15.8 (L) Magnesium 1.7 - 2.3 mg/dL 1.9 Vitamin B12 232 - 1,245 pg/mL 578 Ferritin 14.7 - 205.1 ng/mL 205.0 Free T3 2.3 - 4.1 pg/mL 2.3 Free T4 0.9 - 1.7 ng/dL 1.2 Legend: (L) Low (H) High documented [facility] Telephone encounter Note * Telephone Encounter - Silvestre Jain APRN.[employer] - 05/21/2023 1:10 PM EDT We can discuss if assisted is needed with her visit 05/22 and include that in the documentation for the visit. [facility]03-27-[facility] Miscellaneous Notes* Telephone Encounter - Silvestre Jain APRN.CNP - 05/21/2023 1:10 PM EDT We can discuss if assisted is needed with her visit 05/22 and include that in the documentation for the visit. * Telephone Encounter - Deirdre Jacob LPN - 05/21/2023 8:40 AM EDT Vinicio calling from [facility], she received orders for PT & is asking for orders for Group Home also? She received RIC notes but they were from pharmacy, she needs them from primary care in the last 90days. Notes were faxed to her from 04/14/23 VV appt with Silvestre. PH: [phone] FAX: [phone] Deirdre Jacob LPN documented in this encounterNew[facility]03-27-2024 Telephone encounter Note * Telephone Encounter - Deirdre Jacob LPN - 05/21/2023 8:40 AM EDT Vinicio calling from [facility], she received orders for PT & is asking for orders for Group Home also? She received RIC notes but they were from pharmacy, she needs them from primary care in the last 90days. Notes were faxed to her from 04/14/23 VV appt with Silvestre. PH: [phone] FAX: [phone] Deirdre Jacob LPN [facility]03-26-2024 Miscellaneous Notes* Telephone Encounter - Nanci Boyd MA - 05/20/2023 4:01 PM EDT Pt notified of recommendations. She states she would like to wait until Friday, but will call in ifher symptoms worsen. Encouraged to push fluids. ER if severe pain or fever occur. Nanci Boyd MA * Telephone Encounter - Silvestre Jain APRN.CNP - 05/20/2023 10:13 AM EDT She really does need to be seen, if not able to wait until appointment Friday and not able to come in today I would see if she can arrange for transportation to come either tomorrow or see Lydia on . * Telephone Encounter - Anh Hazel LPN - 05/20/2023 9:19 AM EDT Patient calling she is having UTI symptoms, began last night. She is having burning, voiding small amounts, lower abdominal pain, frequency. Patient said her blood sugars have not been going above 170. Patient asking for antibiotic rx to be sent to [facility] pharmacy. She has not transportation to come to appt, she has appt scheduled for Friday with JEWEL HOLE DRILLER. Please advise documented in this encounterNewark Hospital03-25-2024 Miscellaneous Notes* Telephone Encounter - Martina Vizcaino MA - 05/19/2023 2:08 PM EDT Faxed PT order to # provided: [phone]. Provided pharmacy OV notes from 05/13 that PhD documented difficulty with walking. Martina Vizcaino MA * Telephone Encounter - Silvestre Jain APRN.CNP - 05/19/2023 1:55 PM EDT They will likely need the notes from her visit Friday but we can try and send the order now, order placed, please fax. Thanks! * Telephone Encounter - Muriel Burgess LPN - 05/19/2023 11:01 AM EDT Pt calls to request an order for PT to go to [facility] @ [phone]. Pt reports she still cannot walk and she feels she needs PT for strengthening and balance. Pt has an appt 05/23/23 with provider but wanted order to get started. Muriel Burgess LPN documented in this encounterNewark Hospital03-25-2024 Miscellaneous Notes* Telephone Encounter - Leigh Stone MA - 05/19/2023 10:14 AM EDT [facility]. Pt notified and verbalized understanding. Leigh Stone MA * Telephone Encounter - Silvestre Jain APRN.CNP - 05/19/2023 7:23 AM EDT Order signed, printed. Please fax and let patient know once sent. Thanks! * Telephone Encounter - Lexii Fowler RN - 05/16/2023 4:02 PM EDT Patient requesting DME order for Bariatric Mattress Overlay. Order pended. Please fax to [facility] in [place] once signed by provider. Please call patient once request has been completed. [phone] Thank you. documented in this encounterNewark Hospital03-21-2024 Miscellaneous Notes* Telephone Encounter - Leticia Echavarria RPh - 05/15/2023 9:30 AM EDT PharmD spoke to patient yesterday. She is very interested in losing weight and wants to start additional weight-loss medication. PharmD reviewed chart and concluded the following: Uncertain if weight gain is a result of increased adiposity or fluid retention --> pt currently following up with PCP team regarding this Med list reviewed, she is on 2 weight-promoting agents - dicyclomine and cyclobenzaprine (weight gain not listed in package inserts, but they are both anticholinergic agents which are often associated with weight gain) Use and history of weight-loss medications: Current meds: Tirzepatide (Mounjaro): dose increased from 5mg to 7.5mg on 05/12/23 Bupropion XL 300mg daily Past meds: Ozempic and Trulicity --> [facility] stopped February 2023 due to UTIs and diarrhea Topiramate --> last order was from December 2020, uncertain of indication and why stopped Considerations for future: Identify etiology of weight gain (adiposity vs fluid retention) --> address with PCP team Trial off cyclobenzaprine and dicyclomine Continue titration of Mounjaro to 15mg weekly as tolerated. If not reaching weight loss of ~5% after 3 mo on max-tolerated dose, should consider add-on therapy Would avoid any product with phentermine (Adipex, Qsymia) given frequent elevated BP readings Adding naltrexone may be an option (by trying to mimic the dosing of bupropion/naltrexone (Contrave) since already on bupropion). Would need to be cautious given hx of depression (ie risk of suicidalthoughts with meds) and chronic hepatitis Metformin could be added off-label, though she has not tolerated in the past Would avoid Orlistat given her frequent GI issues Consider referral to bariatric institute for further pharmacological weight loss since patient was reportedly not interested in surgery Forwarding to PCP team for review. Leticia Echavarria PharmD, [facility] Primary Care Clinical Pharmacist documented in this encounterNewark Hospital03-20-2024 History of Present illness Narrative* Leticia Echavarria, [facility] - 05/14/2023 11:30 AM EDT Primary Care Pharmacy Visit CC (Reason for Consult): Diabetes (E11.9) Type 2 diabetes (HCC) (primary encounter diagnosis) Goal: A1c < 7% Last Collaborating Provider Visit: 02/28/23 Meggan Arita is a 62 year old female presenting for follow up visit telephone call. Patient consents to pharmacy collaborative practice agreement. Interim Events: Per referral notes: "Patient cannot tolerate Trulicity and will be trying Farxiga. Needs help with adjusting and/or changing meds as tolerated and as needed for weight loss and DM control." Nov 2022: Previously worked with PharmD, was discharged back to PCP for DM mngt in November 2022 dueto achieving adequate control of DM. 01/01: Saw [employer], treated with Omnicef for suspected diverticulitis/cystitis; Lasix increased and Trulicity dose increased. Patient later requested to be taken off Trulicity due to ADEs. Was started on Farxiga though started experiencing diarrhea - advised to stop Farxiga on 01/25 to see if sx resolved. 01/29: PharmD encouraged pt to retry Farxiga to see if ADEs returned 02/21: patient called office wanting to switch Trulicity because she didn't feel it was helping with weight gain; patient reported fluid retention so scheduled f/up with PCP team; she also reported tolerating Farxiga fine so dose was increased; she reported stopping Trulicity ~1 mo ago so advised to restart 02/28: [employer] evaluated leg swelling; zaroxolyn dosing frequency was increased and Trulicity was switched to Mounjaro 03/05: pt had not yet started Mounjaro or increased Farxiga, so advised to do so February: pt noted diarrhea, Mounjaro was decreased and Farxiga stopped 03/26: advised to drink more water, work on dietary mods 04/16: Mounjaro increased 05/04: contacted office about infected tooth 05/06: patient reported not seeing much change with BG or weight with Mounjaro dose increase; dose increased HPI: Still having issues with gaining weight in legs. Seeing PCP team. Lasix was increased. States difficult to walk. Had recent cortisone shot in both knees. Feels depressed because of weight, had a lot of weight gain in the past year. I'm eating right. Doing everything possible but I'm not losing weight. Current DM Medications: Tirzepatide (Mounjaro) 7.5mg weekly on Saturdays Past DM medications: Ozempic - didn't feel it worked well for her Trulicity - didn't feel it worked well for her Mounjaro - said this put her in the hospital SMBGS (Fingersticks) FBGs around 117, no higher than 145 mg/dL No issues with lows Preventative Medications: On HYUN/ARB: Yes On Statin: No DIET/EXERCISE/SOCIAL Hx: Breakfast: 2 boiled eggs and turkey riley, cup of coffee Lunch: tuna salad in jane pocket OR cheese with bologna OR salad with chicken Dinner: chicken, salads; cabbage with pork roast Snacks: grapes or mandarin oranges Following Na restrictions: mindful of salt, limits in diet; uses mostly Mrs. Dash Beverages: coffee in AM; cut back to 1 can pop/day; water Exercise: mobility is limited MEDICATIONS: Pill bottles are not present. Adherence: denies missed doses. [id number] [place] [address] - [address] [facility] [phone] [id number] Rx coverage: Payor: [facility] MEDICAID / Plan: [facility] MEDICAID / Product Type: Medicaid / Medications affordable? Yes Diabetes Supplies: Yes Organization system: ACTIVE PROBLEM LIST Hypertension Obstructive Sleep Apnea Asthma Esophageal Reflux Generalized Osteoarthrosis, Unspecified Site Anxiety State Iron Deficiency Anemia, Unspecified Edema Spinal Stenosis, Lumbar Region, Without Neurogenic Claudication Allergic Rhinitis Chronic Hepatitis, Unspecified (Hcc) Pulmonary Hypertension (Hcc) Bmi 60.0-69.9, Adult (Hcc) Type 2 Diabetes (Hcc) Depression Primary Osteoarthritis of Both Knees Ulcer of Left Lower Extremity, Limited to Breakdown of Skin (Hcc) Bilateral Leg Edema Mixed Hyperlipidemia Stage 3 Chronic Kidney Disease (Hcc) PAST MEDICAL HISTORY Diagnosis Date Acute gastritis without mention of hemorrhage ALLERGIC RHINITIS NOS 07/15/2007 ANXIETY STATE NOS 12/09/2006 Carpal tunnel syndrome 04/10/2007 Bilateral symptoms with the left worse than the right as of 04-03 CHOLELITH W CHOLECYS NEC 02/07/2005 Lap favio in 03-01 Chronic hepatitis, unspecified (HCC) 03/06/2005 Depression Edema 06/01/2007 Admit 07-08-08 for RLE venous stasis ulcer on Cubicin. Put pt on disability from 08-03-08 to 11-24-08 Esophageal reflux GENERAL OSTEOARTHROSIS 10/29/2006 Headache(784.0) 01/20/2007 [facility] 12-26: consid Sjogren's, CT chest/MRI head/HYUN/KEO/OSMANY/ANCA/SSA/SSB neg Again reinforced the need to start CPAP on 03-04-07: unable to afford as of 04-03 for insurance issues INSOMNIA NOS 07/31/2007 IRON DEFIC ANEMIA NOS 01/20/2007 Colon 03-22-02 ([facility]): no polyps, masses or AVMs Lactose intolerance Low blood potassium 10/20/2014 Low magnesium level 07/08/2016 Morbid obesity (HCC) Obesity, unspecified Obstructive sleep apnea Other dyspnea and respiratory abnormality Primary osteoarthritis of both knees 03/08/2020 severe narrowing of the medial joint space with marginal osteophytes--x-ray knee 2016 SPINAL STENOSIS-LUMBAR 07/09/2007 Stasis edema with ulcer (HCC) 08/02/2013 Type II or unspecified type diabetes mellitus without mention of complication, not stated as uncontrolled 08/05/2007 Unspecified asthma(493.90) Unspecified essential hypertension Past medical history reviewed. ALLERGIES Allergen Reactions Ciprofloxacin Diarrhea Nausea and diarrhea Mounjaro [Tirzepati* Diarrhea, Vomiting Hospitalized with dehydration and acute kidney injury. Did tolerate Trulicity Buspar [Buspirone H* Other: See Comments Insomnia Carafate [Sucralfat* tightens up chest unable to swallow Celebrex [Celecoxib] Other: See Comments tachycardia, heart palpitations Cheratussin Itching Codeine GI Upset sick to her stomach but able to tolerate in Tylenol with codeine #3 Doxycycline Intolerance, Vomiting Iodine difficulty breathing, swelling, hives Latex difficulty breathing and swelling Levaquin [Levofloxa* GI Upset Meloxicam Rash pruritic rash within hours of taking med Penicillins Swelling, Shortness of Breath Prednisone Mental Status Change Vicodin [Hydrocodon* Itching swelling Medication List Medication Directions Comments Action/Plan albuterol (PROVENTIL) 2.5 mg /3 mL (0.083 %) nebulizer solution inhale contents of one vial in nebulizer every 6 hours if needed for wheezing and shortness of breath albuterol HFA (PROVENTIL HFA, VENTOLIN HFA) 90 mcg/actuation inhaler Inhale 2 Puffs as instructed every 4 hours as needed for wheezing/shortness of breath. ascorbic acid, vitamin C, (VITAMIN C) 500 mg tablet Take 1 tablet by mouth once daily. Blood Pressure Test Kit-Large (QUICK RESPONSE BP MONITOR) Check blood pressure daily or as needed. I10 Hypertension blood sugar diagnostic (BLOOD GLUCOSE TEST) test strip Test blood sugar(s) four times daily. Dx: Type 2 DM - Controlled E11.9 Insulin: No blood sugar diagnostic (BLOOD GLUCOSE TEST) test strip Test blood sugar(s) 4 times daily. Dx: Type 2 DM - Controlled E11.9 Insulin: No blood sugar diagnostic (RELION PRIME TEST STRIPS) test strip Test glucose 4 x per day. Dx: E11.9. Insulin use: no Blood-Glucose Meter (FREESTYLE FREEDOM LITE) monitoring kit 1 Each as needed. buPROPion XL (WELLBUTRIN XL) 300 mg 24 hr tablet Take 1 tablet by mouth once daily. Cholecalciferol, Vitamin D3, 50 mcg (2,000 unit) cap Take 1 capsule by mouth once daily. clindamycin (CLEOCIN) 300 mg capsule Take 1 capsule by mouth three times a day for 7 days. COMPOUNDED PRESCRIPTION TENS Unit 4 lead. Use as directed. Needs refills for leads 1 per month as needed Dispense 1 with 5 refills. (M48.06) Spinal stenosis, lumbar region, without neurogenic claudication CPAP AutoPAP 5-12 CM H2O with humidification. Mask (per patient preference) optional chin strap (ifindicated) , filters, tubing, humidifier and lifetime supplies. cyclobenzaprine (FLEXERIL) 5 mg tablet Take 1 tablet by mouth three times daily as needed. Diaper,Brief, Adult,Disposable (DISPOSABLE BRIEF) Bariatric Briefs - Prevail #10 (thickest brief). 5 per day. dicyclomine (BENTYL) 10 mg capsule Take 1 capsule by mouth three times a day. Patient not taking: Reported on 01/29/2023 ferrous sulfate (IRON ORAL) Take by mouth. fluticasone (FLONASE) 50 mcg/actuation nasal spray Use 2 Sprays in each nostril once daily as needed. furosemide (LASIX) 20 mg tablet TAKE 1-2 TABLETS BY MOUTH ONCE DAILY NEEDED FOR EDEMA/ FLUID RETENTION ipratropium (ATROVENT) 0.02 % nebulizer solution Use 2.5 mL via nebulizer four times daily as needed (wheezing). Use over 5-15minutes. Use in addition to albuterol nebulizer. Lancets lancets Test blood sugar(s) 4 times daily. Dx: Type 2 DM - Controlled E11.9 Insulin: No Discontinued: 05/07/2023 7:16 PM LORazepam (ATIVAN) 1 mg tablet Take 0.5-1 tablets by mouth once daily as needed for anxiety for up to 30 days. Do not start before May 14, 2023. losartan (COZAAR) 100 mg tablet Take 1 tablet by mouth once daily. metOLazone (ZAROXOLYN) 5 mg tablet Take 1 tablet by mouth once daily as needed. Take 1/2 hour before lasix. Patient not taking: Reported on 01/29/2023 [employer] [facility] [employer] Order: Overnight pulse ox on 4LPM Diagnosis: R09.02 (checking if needsO2 increased at night) mometasone-formoterol (DULERA) 200-5 mcg/actuation inhaler Inhale 1 Puff as instructed two times a day. Rinse mouth after use. montelukast (SINGULAIR) 10 mg tablet Take 1 tablet by mouth daily at bedtime. Patient taking differently: Take 10 mg by mouth daily at bedtime. As needed Nebulizer NEBULIZER FOR HOME USE. DX: (J45.20) Mild intermittent asthma without complication nystatin (MYCOSTATIN) powder Apply 1 application to affected area four times daily. pantoprazole DR (PROTONIX) 40 mg tablet Take 1 tablet by mouth once daily. polyethylene glycol 3350 (MIRALAX) 17 gram/dose powder 2 scoop in liquid daily as needed for bowel movement potassium chloride ER (KLOR-CON) 20 mEq tablet Take 1 tablet by mouth two times a day. As directed tirzepatide (MOUNJARO) 5 mg/0.5 mL pen injector Inject 5 mg subcutaneously one time a week. venlafaxine ER (EFFEXOR XR) 75 mg 24 hr capsule Take 1 capsule by mouth once daily. WALKER ROLLATOR SEAT WITH 6" WHEELS - RED Diagnosis: Unsteady gait, primary osteoarthritis both knees, decreased mobility Zinc Acetate, Oral, 25 mg (zinc) cap Take 1 capsule by mouth once daily. Exam: LMP 02/11/2011 Last 3 Encounter BP Readings: Date: BP: 02/28/2023 142/76 01/01/2023 160/86 11/05/2022 148/86 Wt: 149.7 kg (330 lb) BMI: 50.18 kg/(m^2) LABS: Reviewed Lab Results Component Value Date HBA1C 4.9 11/05/2022 HBA1C 4.7 08/30/2022 HBA1C 5.3 02/27/2022 HBA1C 7.4 07/07/2021 HBA1C 6.9 09/05/2020 HBA1C 6.7 03/28/2020 HBA1C 8.4 11/06/2019 CMP: Glucose 86 01/01/2023 BUN 15 01/01/2023 Creatinine, Whole Blood (iSTAT) 1.33 01/01/2023 Sodium 142 01/01/2023 Potassium 3.8 01/01/2023 Chloride 104 01/01/2023 CO2 28 01/01/2023 Protein, Total 7.9 01/01/2023 Albumin 3.8 01/01/2023 Calcium 9.3 01/01/2023 Alkaline Phosphatase 107 01/01/2023 Bilirubin, Total 0.6 01/01/2023 AST 14 01/01/2023 ALT 10 01/01/2023 No results found for: "GFR" CrCl cannot be calculated (Unknown ideal weight.). Lab Results Component Value Date CHOL 155 11/05/2022 CHOL 119 03/28/2020 LDL 95 11/05/2022 LDL 70 03/28/2020 HDL 51 11/05/2022 HDL 37 03/28/2020 TG 46 11/05/2022 TG 59 03/28/2020 The 10-year ASCVD risk score (Annabella CHAPA, et al., 2019) is: 19.5% Values used to calculate the score: Age: 62 years Sex: Female Is Non- : Yes Diabetic: Yes Tobacco smoker: No Systolic Blood Pressure: 142 mmHg Is BP treated: Yes HDL Cholesterol: 51 mg/dL Total Cholesterol: 155 mg/dL Albumin/Creat Ratio (mg/g) Date Value 11/06/2019 Not calculated PHARMACOTHERAPY ASSESSMENT/PLAN: 1. Type 2 diabetes (HCC) - ICD9: 250.00, ICD10: E11.9 A1c goal < 7%; controlled (last A1c 4.9%); SMBGs at goal; tolerating Mounjaro well, finished 4 doses of 5mg; patient very depressed over weight gain (leg swelling; losing independence and needing assistance to do things, etc); patient greatly wants to lose weight to regain mobility; will plan tocontinue titrating up Mounjaro gradually as tolerated; doesn't appear to be on other meds contributing to weight gain INCREASE Mounjaro to 7.5mg weekly as previously discussed Informed pt of shortage. Due for 7.5mg dose on Friday, 05/16. Advised to call around to pharmaciesif her local pharmacy can't get in stock. May also need to ask about 5mg, 10mg, and 12.5mg pens (will keep 5mg pen on file in case need to go back down to lower dose due to availability) PharmD will review chart to see if any additional weight-loss med would be helpful --> will relay findings to [employer], Silvestre Jain Advised to continue f/up with PCP team regarding fluid retention Follow-up Patient is not scheduled to see PCP team. Patient to have f/up with PharmD team on 06/03. Patient verbalized understanding of instructions. Leticia Echavarria PharmD, [facility] Primary Care Clinical Pharmacist documented in this encounterNewark Hospital03-18-2024 Miscellaneous Notes* Telephone Encounter - Ruchi Malone LPN - 05/12/2023 4:16 PM EDT Images from the original note were not included. Prior authorization approved Payer: [facility] Cecy PA request for [id number] was approved for 46 days. The PA# assigned is [id number]. Approval Details Authorization number: [id number] Authorized from May 12, 2023 to June 26, 2023 Electronic appeal: Not supported View History Medication Being Authorized tirzepatide (MOUNJARO) 7.5 mg/0.5 mL pen injector Inject 7.5 mg subcutaneously one time a week. Dispense: 2 mL Refills: 5 Start: 05/12/2023 Class: Normal This order has been released to its destination. To be filled at: [id number] - [place] [address] - [address] [phone] [id number] * Telephone Encounter - Ruchi Malone LPN - 05/12/2023 4:15 PM EDT Images from the original note were not included. Prior authorization approved Payer: [facility] Approved medication: MOUNJARO Approval Details Authorization number: [id number] Authorized from April 16, 2023 to May 11, 2023 Electronic appeal: Not supported View History Medication Being Authorized tirzepatide (MOUNJARO) 5 mg/0.5 mL pen injector Inject 5 mg subcutaneously one time a week. Dispense: 2 mL Refills: 3 Start: 04/16/2023 Class: Normal This order has been released to its destination. To be filled at: [id number] [place] [address] - [address] [phone] Pharmacy notified. * Telephone Encounter - Ruchi Malone LPN - 05/12/2023 3:36 PM EDT Electronic PA completed for mounjaro 7.5 mg documented in this encounterNewark Hospital03-18-2024 Miscellaneous Notes* Telephone Encounter - Leticia Echavarria [facility] - 05/12/2023 8:50 AM EDT I would like for the patient to continue with Mounjaro (assuming she can locate supply from pharmacy). Goal will be to continue titrating up the medication to max goal dose of 15mg/week which is where she would see the most weight loss and appetite reduction. We have to do the titration process slowly to assure tolerability. Will discuss with patient at upcoming appt on 05/13. Leticia Echavarria, PharmD, [facility] Primary Care Clinical Pharmacist * Telephone Encounter - Nanci Dorado LPN - 05/09/2023 3:08 PM EDT Pt calling back and checking status. He injection is due tomorrow and not sure what to do. Please advise pt. Nanci Dorado LPN * Telephone Encounter - Deirdre Jacob LPN - 05/08/2023 11:57 AM EDT Pt states she is not seeing much change with improving blood sugars & med is not curbing her appetite. Pt states she is cutting out carbs & increasing protein but states she doesn't feel any better & has no energy. Pt states she'll get her last monjaro inj this Tuesday 05/09 then will be out of med, states the pharmacy told her they do not have any in stock currently. Pt states she does not want to be on Monjaro any more & wonders what she should do now? Pt is requesting this message to go to [facility]. Deirdre Jacob LPN * Telephone Encounter - Nanci Dorado LPN - 05/08/2023 9:19 AM EDT Left a message for pt to call the office and ask to speak to a nurse. Nanci Dorado LPN * Telephone Encounter - Erica Cannon MD - 05/07/2023 7:17 PM EDT Hemoglobin A1C Date Value 11/05/2022 4.9 % 08/30/2022 4.7 % 02/27/2022 5.3 07/07/2021 7.4 % 04/30/2021 7.2 % 09/05/2020 6.9 % 03/28/2020 6.7 % 11/06/2019 8.4 % 07/26/2019 7.5 % 03/30/2019 7.1 % Needs labs updated--orders placed. Need to follow up on anemia, blood sugars, etc. Clarify what she means by not seeing much change. Fasting blood sugars not too bad. Close to goal 150 or less. How is she doing with managing eating healthy diet around 80% of the time? * Telephone Encounter - Nanci Dorado LPN - 05/07/2023 11:22 AM EDT 1)Pt called to let you know she can not get the Mounjaro and with the upper dose she did not see much change. Pt would like to change to something else. 2) pt has blood sugar updates 3-3-24 165 fasting 3-4-24 160 fasting 3-5-24 143 fasting 3-6-24 143 fasting 3-7-24 160 fasting 3-8-24 165 fasting 3-9-24 148 fasting took a shot that day Please advise pt. Nanci Dorado LPN documented in [facility] encounter[facility]-14-[facility] History of Present illness Narrative* Tom Bolaños - 05/08/2023 9:38 AM EDT Last saw pcp: 04/14/23 Subjective: Patient presents to clinic c/o painful toenails. They state that the nails are especially painful with shoe gear and pressure. Patient states that nails 1-5 b/l are painful. Patient admits to being diabetic. No other pedal complaints at this time. Patient states no change in medications or medical history since last visit. Objective: Patient presents to clinic nonambulatory Vasc: DP and PT pulses are palpable bilateral. CFT is less than 5 seconds bilateral. Skin temperature is warm to cool proximal to distal bilateral. There is moderate edema or varicosities noted. Neuro: Protective sensation is intact to the foot and toes when tested with the 5.07 SWM bilateral.Vibratory sensation is decreased at the hallux IPJ bilateral. The hallux is downgoing bilateral. Derm: Nails 1-5 b/l are painful, discolored-yellow, thick, crumbly, dystrophic and with subungal debris. Skin is of normal turgor, texture and hair growth is present bilateral. There are no hyperkeratosis, ulcerations, scars, verruca or other lesions noted. Ortho: Muscle strength is 5/5 for all pedal groups tested. Ankle joint DF is decreased with the knee extended with no pain or crepitus noted. 1st MPJ ROM is decreased bilateral. Assessment: (B35.1) Onychomycosis (primary encounter diagnosis) (M79.675) Pain in toe of left foot (M79.674) Pain in toe of right foot (E08.41) Diabetic mononeuropathy associated with diabetes mellitus due to underlying condition ([facility]) Plan: Patient was seen and evaluated. Nails 1-5 bilateral were debrided in length and thickness. Patient was instructed on the continued importance of diabetic foot care along with proper diet and keeping their blood sugar under control to prevent complications. Patient is to RTC in 3-4 months. Tom Bolaños DPM * Talia Parks LPN - 05/08/2023 9:20 AM EDT AMB ROOMING INTAKE FLOWSHEET DATA Patient presents with: Left Foot - Established Patient, Diabetic Foot Care Right Foot - Established Patient, Diabetic Foot Care Talia Parks LPN documented in this encounterNewark [facility]03-14-2024 Instructions* Patient Instructions* Tom Bolaños - 05/08/2023 9:38 AM EDT Diabetes Foot Care Instructions When you have diabetes, proper foot care is very important. Poor foot care may lead to amputation of a foot or leg. As a person with diabetes, you are more vulnerable to foot problems, because diabetes can damage your nerves and reduce blood flow to your feet. Here are some diabetes foot care tips to follow: Wash and Dry Your Feet Daily Use mild soaps Use warm water Pat your skin dry; do not rub. Thoroughly dry your feet. After washing, use lotion on your feet to prevent cracking. Do not put lotion between your toes. Examine Your Feet Each Day Check the tops and bottoms of your feet. Have someone else look at your feet if you cannot see them. Check for dry, cracked skin. Look for blisters, cuts, scratches, or other sores. Check for redness, increased warmth, or tenderness when touching any area of your feet. Check for ingrown toenails, corns, and calluses. If you get a blister or sore from your shoes, do not "pop" it. Apply a bandage and wear a differentpair of shoes. Take Care of Your Toenails Cut toenails after bathing, when they are soft. Cut toenails straight across and smooth with a nail file. Avoid cutting into the corners of toes. Do not cut cuticles. If you have neuropathy (or decreased sensation in your feet) a clinical geneticist should always cut your toenails. Be Careful When Exercising Walk and exercise in comfortable shoes. Do not exercise when you have open sores on your feet. Protect Your Feet With Shoes and Socks Never go barefoot. Always protect your feet by wearing shoes or hard-soled slippers or footwear. Avoid shoes with high heels and pointed toes. Avoid shoes that expose your toes or heels (such as open-toed shoes or sandals). These types of shoes increase your risk for injury and potential infections. Try on new footwear with the type of socks you usually wear. Do not wear new shoes for more than an hour at a time. Change your socks daily. Look and feel inside your shoes before putting them on to make sure there are no foreign objects orrough areas. Avoid tight socks. Wear natural-fiber socks (cotton, wool, or a cotton-wool blend). Wear special shoes if your health care provider recommends them. Wear shoes/boots that will protect your feet from various weather conditions (cold, moisture, etc.). Make sure your shoes fit properly. If you have neuropathy (nerve damage), you may not notice that your shoes are too tight. Perform the "footwear test" described below. Footwear Test Use this simple test to see if your shoes fit correctly: Stand on a piece of paper. (Make sure you are standing and not sitting, because your foot changes shape when you stand.) Trace the outline of your foot. Trace the outline of your shoe. Compare the tracings: Is the shoe too narrow? Is your foot crammed into the shoe? The shoe should be at least 1/2 inch longer than your longest toe and as wide as your foot. Proper Shoe Choices The following types of shoes are best for people with diabetes Closed toes and heels Leather uppers without a seam inside At least 1/2 inch extra space at the end of your longest toe Inside of shoe should be soft with no rough areas Outer sole should be made of stiff material Shoes should be at least as wide as your feet Tips for Foot Care in Diabetes Don't wait to treat a minor foot problem if you have diabetes. Follow your health care provider's guidelines and first aid guidelines. Report foot injuries and infections to your health care provider immediately. Check water temperature with your elbow, not your foot. Do not use a heating pad on your feet. Do not cross your legs. Do not self-treat your corns, calluses, or other foot problems. Go to your health care provider or clinical geneticist to treat these conditions. documented in this encounterNewark Hospital03-11-2024 Miscellaneous Notes* Telephone Encounter - Lili Cummings RN - 05/05/2023 4:37 PM EDT Pt called and is notified of providers results and instructions. Pt voices understanding. Lili Cummings RN * Telephone Encounter - Silvestre Jain APRN.NIKKY - 05/05/2023 3:34 PM EDT We can treat with short term clindamycin, sent this in. I do agree that she does need follow up with her dentist. * Telephone Encounter - Muriel Burgess LPN - 05/05/2023 1:09 PM EDT Pt calls to report that she has an infected bottom tooth. Pt reports provider knows about her dental problems. Pt reports the dentist she usually goes to in [place] does not take her insurance. Pt reports she was able to get an appt with [facility] for middle of May when they will have a dentist there. Pt is asking if provider can call in at for bottom tooth infection. Please review and advise. Muriel Burgess LPN documented in this encounterNewark Hospital02-28-2024 Miscellaneous Notes* Telephone Encounter - Gay Clements LPN - 04/23/2023 9:37 AM EST Patient has been identified by name and date of : Yes Patient phones for refill(s): Requested Prescriptions Pending Prescriptions Disp Refills furosemide (LASIX) 20 mg tablet [Pharmacy Med Name: FUROSEMIDE 20 MG TABS 20 Tablet] 60 tablet 10 Sig: TAKE 1-2 TABLETS BY MOUTH ONCE DAILY NEEDED FOR EDEMA/ FLUID RETENTION Date of last office visit in primary care: 02/28/2023 Date of next office visit in primary care: Visit date not found Please advise. Thank you. Gay Clements LPN. documented in this encounterNewark Hospital02-21-2024 Miscellaneous Notes* Telephone Encounter - Ruchi Malone LPN - 04/16/2023 3:57 PM EST Images from the original note were not included. The office rec'd and completed an electronic PA form mounjaro. This was approved. Pharmacy notified. Prior authorization approved Payer: [facility] Approved medication: MOUNJARO Approval Details Authorization number: [id number] Authorized from April 16, 2023 to June 26, 2023 Electronic appeal: Not supported View History Medication Being Authorized tirzepatide (MOUNJARO) 5 mg/0.5 mL pen injector Inject 5 mg subcutaneously one time a week. Dispense: 2 mL Refills: 3 Start: 04/16/2023 Class: Normal This order has been released to its destination. To be filled at: [id number] [place] [address] - [address] [facility] [phone] [id number] documented in this encounterNewark Hospital02-21-2024 History of Present illness Narrative* Leticia Echavarria, [facility] - 04/16/2023 11:30 AM EST Primary Care Pharmacy Visit CC (Reason for Consult): Diabetes (E11.9) Type 2 diabetes (HCC) (primary encounter diagnosis) Goal: A1c < 7% Last Collaborating Provider Visit: 02/28/23 Meggan Arita is a 62 year old female presenting for follow up visit telephone call. Patient consents to pharmacy collaborative practice agreement. Interim Events: Per referral notes: "Patient cannot tolerate Trulicity and will be trying Farxiga. Needs help with adjusting and/or changing meds as tolerated and as needed for weight loss and DM control." Nov 2022: Previously worked with PharmD, was discharged back to PCP for DM mngt in November 2022 dueto achieving adequate control of DM. 01/01: Saw [facility], treated with Omnicef for suspected diverticulitis/cystitis; Lasix increased and Trulicity dose increased. Patient later requested to be taken off Trulicity due to ADEs. Was started on Farxiga though started experiencing diarrhea - advised to stop Farxiga on 01/25 to see if sx resolved. 01/29: PharmD encouraged pt to retry Farxiga to see if ADEs returned 02/21: patient called office wanting to switch Trulicity because she didn't feel it was helping with weight gain; patient reported fluid retention so scheduled f/up with PCP team; she also reported tolerating Farxiga fine so dose was increased; she reported stopping Trulicity ~1 mo ago so advised to restart 02/28: [facility] evaluated leg swelling; zaroxolyn dosing frequency was increased and Trulicity was switched to Mounjaro 03/05: pt had not yet started Mounjaro or increased Farxiga, so advised to do so February: pt noted diarrhea, Mounjaro was decreased and Farxiga stopped 03/26: advised to drink more water, work on dietary mods HPI: She does not feel the Mounjaro dose is working for her. She wants to know if there is anything elseshe can take that will help her lose weight. States legs swell, makes knees hurt. Says she lost so much weight when she was in a half-way a year or so ago. No longer having any issues with diarrhea. Taking Mounjaro 2.5mg, has had 3 doses so far. Current DM Medications: Tirzepatide (Mounjaro) 2.5mg weekly on Saturdays Past DM medications: Ozempic - didn't feel it worked well for her Trulicity - didn't feel it worked well for her Mounjaro - said this put her in the hospital SMBGS (Fingersticks) Usually 130s-140s Preventative Medications: On HYUN/ARB: Yes On Statin: No DIET/EXERCISE/SOCIAL Hx: Trying to watch diet MEDICATIONS: Pill bottles are not present. Adherence: denies missed doses. Pharmacy: [facility] #[id number] [place] [address] - [address] [facility] [phone] Rx coverage: Payor: [facility] MEDICA[facility] / Plan: [facility] MEDICAID / Product Type: Medicaid / Medications affordable? Yes Diabetes Supplies: Yes Organization system: ACTIVE PROBLEM LIST Hypertension Obstructive Sleep Apnea Asthma Esophageal Reflux Generalized Osteoarthrosis, Unspecified Site Anxiety State Iron Deficiency Anemia, Unspecified Edema Spinal Stenosis, Lumbar Region, Without Neurogenic Claudication Allergic Rhinitis Chronic Hepatitis, Unspecified (Hcc) Pulmonary Hypertension (Hcc) Bmi 60.0-69.9, Adult (Hcc) Type 2 Diabetes (Hcc) Depression Primary Osteoarthritis of Both Knees Ulcer of Left Lower Extremity, Limited to Breakdown of Skin (Hcc) Bilateral Leg Edema Mixed Hyperlipidemia Stage 3 Chronic Kidney Disease (Hcc) PAST MEDICAL HISTORY Diagnosis Date Acute gastritis without mention of hemorrhage ALLERGIC RHINITIS NOS 07/15/2007 ANXIETY STATE NOS 12/09/2006 Carpal tunnel syndrome 04/10/2007 Bilateral symptoms with the left worse than the right as of 04-03 CHOLELITH W CHOLECYS NEC 02/07/2005 Lap favio in 03-01 Chronic hepatitis, unspecified (HCC) 03/06/2005 Depression Edema 06/01/2007 Admit 07-08-08 for RLE venous stasis ulcer on Cubicin. Put pt on disability from 08-03-08 to 11-24-08 Esophageal reflux GENERAL OSTEOARTHROSIS 10/29/2006 Headache(784.0) 01/20/2007 [facility] 12-26: consid Sjogren's, CT chest/MRI head/HYUN/KEO/OSMANY/ANCA/SSA/SSB neg Again reinforced the need to start CPAP on 03-04-07: unable to afford as of 04-03 for insurance issues INSOMNIA NOS 07/31/2007 IRON DEFIC ANEMIA NOS 01/20/2007 Colon 03-22-02 ([facility]): no polyps, masses or AVMs Lactose intolerance Low blood potassium 10/20/2014 Low magnesium level 07/08/2016 Morbid obesity (HCC) Obesity, unspecified Obstructive sleep apnea Other dyspnea and respiratory abnormality Primary osteoarthritis of both knees 03/08/2020 severe narrowing of the medial joint space with marginal osteophytes--x-ray knee 2016 SPINAL STENOSIS-LUMBAR 07/09/2007 Stasis edema with ulcer (HCC) 08/02/2013 Type II or unspecified type diabetes mellitus without mention of complication, not stated as uncontrolled 08/05/2007 Unspecified asthma(493.90) Unspecified essential hypertension Past medical history reviewed. ALLERGIES Allergen Reactions Ciprofloxacin Diarrhea Nausea and diarrhea Mounjaro [Tirzepati* Diarrhea, Vomiting Hospitalized with dehydration and acute kidney injury. Did tolerate Trulicity Buspar [Buspirone H* Other: See Comments Insomnia Carafate [Sucralfat* tightens up chest unable to swallow Celebrex [Celecoxib] Other: See Comments tachycardia, heart palpitations Cheratussin Itching Codeine GI Upset sick to her stomach but able to tolerate in Tylenol with codeine #3 Doxycycline Intolerance, Vomiting Iodine difficulty breathing, swelling, hives Latex difficulty breathing and swelling Levaquin [Levofloxa* GI Upset Meloxicam Rash pruritic rash within hours of taking med Penicillins Swelling, Shortness of Breath Prednisone Mental Status Change Vicodin [Hydrocodon* Itching swelling Medication List Medication Directions Comments Action/Plan Discontinued: 04/01/2023 4:58 PM albuterol (PROVENTIL) 2.5 mg /3 mL (0.083 %) nebulizer solution inhale contents of one vial in nebulizer every 6 hours if needed for wheezing and shortness of breath ascorbic acid, vitamin C, (VITAMIN C) 500 mg tablet Take 1 tablet by mouth once daily. Blood Pressure Test Kit-Large (QUICK RESPONSE BP MONITOR) Check blood pressure daily or as needed. I10 Hypertension blood sugar diagnostic (BLOOD GLUCOSE TEST) test strip Test blood sugar(s) four times daily. Dx: Type 2 DM - Controlled E11.9 Insulin: No blood sugar diagnostic (BLOOD GLUCOSE TEST) test strip Test blood sugar(s) 4 times daily. Dx: Type 2 DM - Controlled E11.9 Insulin: No blood sugar diagnostic (RELION PRIME TEST STRIPS) test strip Test glucose 4 x per day. Dx: E11.9. Insulin use: no Blood-Glucose Meter (FREESTYLE FREEDOM LITE) monitoring kit 1 Each as needed. buPROPion XL (WELLBUTRIN XL) 150 mg 24 hr tablet take 1 tablet by mouth once daily Cholecalciferol, Vitamin D3, 50 mcg (2,000 unit) cap Take 1 capsule by mouth once daily. COMPOUNDED PRESCRIPTION TENS Unit 4 lead. Use as directed. Needs refills for leads 1 per month as needed Dispense 1 with 5 refills. (M48.06) Spinal stenosis, lumbar region, without neurogenic claudication CPAP AutoPAP 5-12 CM H2O with humidification. Mask (per patient preference) optional chin strap (ifindicated) , filters, tubing, humidifier and lifetime supplies. cyclobenzaprine (FLEXERIL) 5 mg tablet Take 1 tablet by mouth three times daily as needed. Diaper,Brief, Adult,Disposable (DISPOSABLE BRIEF) Bariatric Briefs - Prevail #10 (thickest brief). 5 per day. dicyclomine (BENTYL) 10 mg capsule Take 1 capsule by mouth three times a day. Patient not taking: Reported on 01/29/2023 ferrous sulfate (IRON ORAL) Take by mouth. Discontinued: 04/01/2023 4:58 PM fluticasone (FLONASE) 50 mcg/actuation nasal spray Use 2 Sprays in each nostril once daily as needed. furosemide (LASIX) 20 mg tablet Take 1-2 tablets by mouth once daily as needed (edema/fluid retention). ipratropium (ATROVENT) 0.02 % nebulizer solution Use 2.5 mL via nebulizer four times daily as needed (wheezing). Use over 5-15minutes. Use in addition to albuterol nebulizer. Lancets lancets Test blood sugar(s) 4 times daily. Dx: Type 2 DM - Controlled E11.9 Insulin: No LORazepam (ATIVAN) 1 mg tablet Take 0.5-1 tablets by mouth once daily as needed for anxiety for up to 30 days. losartan (COZAAR) 100 mg tablet Take 1 tablet by mouth once daily. methylPREDNISolone (MEDROL, RENEE,) 4 mg Dose-Pack Follow dosing instructions, take with food. metOLazone (ZAROXOLYN) 5 mg tablet Take 1 tablet by mouth once daily as needed. Take 1/2 hour before lasix. Patient not taking: Reported on 01/29/2023 [employer] Order: Overnight pulse ox on 4LPM Diagnosis: R09.02 (checking if needsO2 increased at night) montelukast (SINGULAIR) 10 mg tablet Take 1 tablet by mouth daily at bedtime. Patient taking differently: Take 10 mg by mouth daily at bedtime. As needed Nebulizer NEBULIZER FOR HOME USE. DX: (J45.20) Mild intermittent asthma without complication nystatin (MYCOSTATIN) powder Apply 1 application to affected area four times daily. pantoprazole DR (PROTONIX) 40 mg tablet Take 1 tablet by mouth once daily. polyethylene glycol 3350 (MIRALAX) 17 gram/dose powder 2 scoop in liquid daily as needed for bowel movement potassium chloride ER (KLOR-CON) 20 mEq tablet Take 1 tablet by mouth two times a day. As directed tirzepatide (MOUNJARO) 2.5 mg/0.5 mL pen injector Inject 2.5 mg subcutaneously one time a week. venlafaxine ER (EFFEXOR XR) 75 mg 24 hr capsule Take 1 capsule by mouth once daily. WALKER ROLLATOR SEAT WITH 6" WHEELS - RED Diagnosis: Unsteady gait, primary osteoarthritis both knees, decreased mobility Zinc Acetate, Oral, 25 mg (zinc) cap Take 1 capsule by mouth once daily. Exam: [facility] 02/11/2011 Last 3 Encounter BP Readings: Date: BP: 02/28/2023 142/76 01/01/2023 160/86 11/05/2022 148/86 Wt: 149.7 kg (330 lb) BMI: 50.18 kg/(m^2) LABS: Reviewed Lab Results Component Value Date HBA1C 4.9 11/05/2022 HBA1C 4.7 08/30/2022 HBA1C 5.3 02/27/2022 HBA1C 7.4 07/07/2021 HBA1C 6.9 09/05/2020 HBA1C 6.7 03/28/2020 HBA1C 8.4 11/06/2019 CMP: Glucose 86 01/01/2023 BUN 15 01/01/2023 Creatinine, Whole Blood (iSTAT) 1.33 01/01/2023 Sodium 142 01/01/2023 Potassium 3.8 01/01/2023 Chloride 104 01/01/2023 CO2 28 01/01/2023 Protein, Total 7.9 01/01/2023 Albumin 3.8 01/01/2023 Calcium 9.3 01/01/2023 Alkaline Phosphatase 107 01/01/2023 Bilirubin, Total 0.6 01/01/2023 AST 14 01/01/2023 ALT 10 01/01/2023 No results found for: "GFR" CrCl cannot be calculated (Unknown ideal weight.). Lab Results Component Value Date CHOL 155 11/05/2022 CHOL 119 03/28/2020 LDL 95 11/05/2022 LDL 70 03/28/2020 HDL 51 11/05/2022 HDL 37 03/28/2020 TG 46 11/05/2022 TG 59 03/28/2020 The 10-year ASCVD risk score (Annabella CHAPA, et al., 2019) is: 19.5% Values used to calculate the score: Age: 62 years Sex: Female Is Non- : Yes Diabetic: Yes Tobacco smoker: No Systolic Blood Pressure: 142 mmHg Is BP treated: Yes HDL Cholesterol: 51 mg/dL Total Cholesterol: 155 mg/dL Albumin/Creat Ratio (mg/g) Date Value 11/06/2019 Not calculated PHARMACOTHERAPY ASSESSMENT/PLAN: 1. Type 2 diabetes (HCC) - ICD9: 250.00, ICD10: E11.9 A1c goal < 7%; controlled (last A1c 4.9%); SMBG fairly well controlled; no issues with lows; tolerating Mounjaro well; pt eager for weight loss - gains weight around legs, seems to be fluid retention per review of recent [facility] visit; patient may have false expectation of weight loss --> PharmD discussed how her previous weight loss while in half-way could in part be due to fact she had a controlled diet and regular physical activity with PT/rehab that she is not currently getting at home; PharmD counseled pt on expectation of Mounjaro - it is best weight-loss med on the market but will not likely offer much improvement with fluid retention --> encouraged her to continue f/up withPCP team to see if there are other causes of her weight gain INCREASE Mounjaro to 5mg weekly after finishing all 4 doses of 2.5mg pens --> will send to [facility] for signature Informed pt that most weight loss potential is with higher doses but we need to gradually make slight dose adjustments as tolerated Advised to contact office if any issues/concerns Follow-up Patient is not scheduled to see PCP team. Patient to have f/up with PharmD team on 05/13. Patient verbalized understanding of instructions. Leticia Echavarria PharmD, [facility] Primary Care Clinical Pharmacist The majority of the pharmacy visit (> 50%) was spent counseling and/or coordinating care for thepatient. interaction: telephonic time was 27 minutes. documented in this encounterNewark Hospital02-19-2024 History of Present illness Narrative* Silvestre Jain APRN.[facility] - 04/14/2023 11:43 AM EST VIRTUAL VISIT PROGRESS NOTE This is an encounter initiated for an established patient, parent or guardian not originating from a related Evaluation & Management service provided within the previous 7 days nor leading to an Evaluation & Management service or procedure within the next 24 hours or soonest available appointment. This is a virtual visit. It required patient-provider interaction for the medical decision making as documented below. Patient has consented to this encounter. Persons Present: patient Data Reviewed: recent notes Patient has consented to patient-provider interaction via telephone/virtual visit for the medical decision making documented in this telephone/virtual visit encounter. Total Time Spent: 15 minutes I have communicated my name and active licensure. The patient's identity and physical location wereverified at the time of this visit. Either the patient or their legal telephone services sales representative has been informed of the risks and benefits of -- and alternatives to -- treatment through a remote evaluation andconsents to proceed with the evaluation remotely. SUBJECTIVE Meggan Arita is a 62 year old female here today for a check up on her medical problems. Chief Complaint Patient presents with: Med Management HPI She presents today for a virtual visit via my chart on the [employer] platform. Currently has and is using an albuterol inhaler but continues to have issues with a cough. History of asthma. Previously on Symbicort. This was helpful. Would like something like this. Also she feels her Mounjaro is not helping with weight loss and appetite like she thought is might.Side effect of diarrhea did go away with lower dosing. Appetite is still increased. Hungry at nighttime. Seeing pharmacy later this week. Checking sugars, running 120's. Last hgba1c was 4.9% about 5months ago. Her medications were reviewed today and her list is now up to date. Medications Current Outpatient Medications Medication Sig mometasone-formoterol (DULERA) 200-5 mcg/actuation inhaler Inhale 1 Puff as instructed two times a day. Rinse mouth after use. buPROPion XL (WELLBUTRIN XL) 300 mg 24 hr tablet Take 1 tablet by mouth once daily. LORazepam (ATIVAN) 1 mg tablet Take 0.5-1 tablets by mouth once daily as needed for anxiety for up to 30 days. albuterol HFA (PROVENTIL HFA, VENTOLIN HFA) 90 mcg/actuation inhaler Inhale 2 Puffs as instructed every 4 hours as needed for wheezing/shortness of breath. albuterol (PROVENTIL) 2.5 mg /3 mL (0.083 %) nebulizer solution inhale contents of one vial in nebulizer every 6 hours if needed for wheezing and shortness of breath fluticasone (FLONASE) 50 mcg/actuation nasal spray Use 2 Sprays in each nostril once daily as needed. tirzepatide (MOUNJARO) 2.5 mg/0.5 mL pen injector Inject 2.5 mg subcutaneously one time a week. ascorbic acid, vitamin C, (VITAMIN C) 500 mg tablet Take 1 tablet by mouth once daily. Cholecalciferol, Vitamin D3, 50 mcg (2,000 unit) cap Take 1 capsule by mouth once daily. furosemide (LASIX) 20 mg tablet Take 1-2 tablets by mouth once daily as needed (edema/fluid retention). dicyclomine (BENTYL) 10 mg capsule Take 1 capsule by mouth three times a day. (Patient not taking: Reported on 01/29/2023) metOLazone (ZAROXOLYN) 5 mg tablet Take 1 tablet by mouth once daily as needed. Take 1/2 hour before lasix. (Patient not taking: Reported on 01/29/2023) potassium chloride ER (KLOR-CON) 20 mEq tablet Take 1 tablet by mouth two times a day. As directed blood sugar diagnostic (BLOOD GLUCOSE TEST) test strip Test blood sugar(s) 4 times daily. Dx: Type 2 DM - Controlled E11.9 Insulin: No Zinc Acetate, Oral, 25 mg (zinc) cap Take 1 capsule by mouth once daily. blood sugar diagnostic (RELION PRIME TEST STRIPS) test strip Test glucose 4 x per day. Dx: E11.9. Insulin use: no montelukast (SINGULAIR) 10 mg tablet Take 1 tablet by mouth daily at bedtime. (Patient taking differently: Take 10 mg by mouth daily at bedtime. As needed) pantoprazole DR (PROTONIX) 40 mg tablet Take 1 tablet by mouth once daily. losartan (COZAAR) 100 mg tablet Take 1 tablet by mouth once daily. ipratropium (ATROVENT) 0.02 % nebulizer solution Use 2.5 mL via nebulizer four times daily as needed (wheezing). Use over 5-15minutes. Use in addition to albuterol nebulizer. nystatin (MYCOSTATIN) powder Apply 1 application to affected area four times daily. Blood Pressure Test Kit-Large (QUICK RESPONSE BP MONITOR) Check blood pressure daily or as needed. I10 Hypertension Diaper,Brief, Adult,Disposable (DISPOSABLE BRIEF) Bariatric Briefs - Prevail #10 (thickest brief). 5 per day. ferrous sulfate (IRON ORAL) Take by mouth. WALKER ROLLATOR SEAT WITH 6" WHEELS - RED Diagnosis: Unsteady gait, primary osteoarthritis both knees, decreased mobility cyclobenzaprine (FLEXERIL) 5 mg tablet Take 1 tablet by mouth three times daily as needed. venlafaxine ER (EFFEXOR XR) 75 mg 24 hr capsule Take 1 capsule by mouth once daily. blood sugar diagnostic (BLOOD GLUCOSE TEST) test strip Test blood sugar(s) four times daily. Dx: Type 2 DM - Controlled E11.9 Insulin: No Lancets lancets Test blood sugar(s) 4 times daily. Dx: Type 2 DM - Controlled E11.9 Insulin: No CPAP AutoPAP 5-12 CM H2O with humidification. Mask (per patient preference) optional chin strap (ifindicated) , filters, tubing, humidifier and lifetime supplies. Miscellaneous Medical Supply Order: Overnight pulse ox on 4LPM Diagnosis: R09.02 (checking if needsO2 increased at night) Blood-Glucose Meter (FREESTYLE FREEDOM LITE) monitoring kit 1 Each as needed. polyethylene glycol 3350 (MIRALAX) 17 gram/dose powder 2 scoop in liquid daily as needed for bowel movement COMPOUNDED PRESCRIPTION TENS Unit 4 lead. Use as directed. Needs refills for leads 1 per month as needed Dispense 1 with 5 refills. (M48.06) Spinal stenosis, lumbar region, without neurogenic claudication Nebulizer NEBULIZER FOR HOME USE. DX: (J45.20) Mild intermittent asthma without complication Current Facility-Administered Medications Medication Dose Route Frequency perflutren lipid microspheres 1.3 mL in NaCl (PF) 0.9% 10 mL injection (DEFINITY) INTRAVENOUS DIRECTED PRN sodium chloride 0.9 % (flush) 10 mL (BD POSIFLUSH) 10 mL INTRAVENOUS DIRECTED PRN ALLERGIES Allergen Reactions Ciprofloxacin Diarrhea Nausea and diarrhea Mounjaro [Tirzepati* Diarrhea, Vomiting Hospitalized with dehydration and acute kidney injury. Did tolerate Trulicity Buspar [Buspirone H* Other: See Comments Insomnia Carafate [Sucralfat* tightens up chest unable to swallow Celebrex [Celecoxib] Other: See Comments tachycardia, heart palpitations Cheratussin Itching Codeine GI Upset sick to her stomach but able to tolerate in Tylenol with codeine #3 Doxycycline Intolerance, Vomiting Iodine difficulty breathing, swelling, hives Latex difficulty breathing and swelling Levaquin [Levofloxa* GI Upset Meloxicam Rash pruritic rash within hours of taking med Penicillins Swelling, Shortness of Breath Prednisone Mental Status Change Vicodin [Hydrocodon* Itching swelling ACTIVE PROBLEM LIST Mixed Hyperlipidemia - 08/07/2022 Stage 3 Chronic Kidney Disease (Hcc) - 08/07/2022 Ulcer of Left Lower Extremity, Limited to Breakdown of Skin ([facility]) - 02/20/2022 Comment: Large wound medial thigh; also 2 smaller ones (medial and lateral thigh) Bilateral Leg Edema - 02/20/2022 Comment: Not needing as much Lasix as before; would take metolazone before Lasix as before for prn use Primary Osteoarthritis of Both Knees - 03/08/2020 Comment: severe narrowing of the medial joint space with marginal osteophytes--x-ray knee 2016 Depression - 01/24/2016 Type 2 Diabetes ([facility]) - 09/01/2014 Bmi 60.0-69.9, Adult ([facility]) - 06/30/2014 Pulmonary Hypertension ([facility]) - 04/23/2013 Allergic Rhinitis - 07/15/2007 Spinal Stenosis, Lumbar Region, Without Neurogenic Claudication - 07/09/2007 Comment: not sure where this diagnosis came from since no prior MRI or CT scan with mention of this diagnosis Edema - 06/01/2007 Comment: Admit 07-08-08 for RLE venous stasis ulcer on Cubicin. Put pt on disability from 08-03-08 to 11-24-08 Iron Deficiency Anemia, Unspecified - 01/20/2007 Comment: Colon 03-22-02 ([facility]): no polyps, masses or AVMs Anxiety State - 12/09/2006 Generalized Osteoarthrosis, Unspecified Site - 10/29/2006 Esophageal Reflux - 03/16/2005 Comment: EGD in 06-30: no evidence of esophagitis but there is gastritis (H pylori was negative) Chronic Hepatitis, Unspecified ([facility]) - 03/06/2005 Comment: Liver biopsy w/ cholecystectomy Hypertension Comment: Echo at [place] 01-25: LVH, mild TR, LAE, RVE, PASP 38 (mild), no EF documented per Seese Seese 01-07-03: consider GERD for atyp CP, not cath candidate from obesity, doubt cardiac source ECG 03-30: NSR with PVC, lat T flattening, no ischemia/injury (ECG NL in 10-27 at [place]) Rec for Dobut Echo in 05-28 per Seese (Darshan) prior to rec gastric bypass (Study 07-21-03 was NL) Admit for BRYAN in 09-29: rec Cardizem and Lopressor after negative enzymes, outpt stress Dobut Echo 11-18-05: 80% APMHR, No RWMA, NL but limited by not achieving APMHR LDL 96, HDL 45, TG 45 in 01-01 Restarted K supplements for K of 3.3 in 08-01 as pt on Lasix Order placed for Holter in 04-04 after ED visit for palpitations Metoprolol to 100 mg bid in 04-04 for BP and palpitations Holter 04-04: no AF, VT but pt with 7 sec pause Metop changed to Hydralazine and HCTZ as inpt in 04-04 with the Holter findings Carotids at [place] in 04-04: 1-15% stenosis bilaterally Obstructive Sleep Apnea Comment: Scheduled sleep study in 11-3012-08-06: sleep time 60 minutes/294 minutes studied, AHI 48, low sat 79%-rec auto-titrating CPAP Trial of an auto-titrating CPAP in 11-30: unable to sleep long enough for diagnosis Phoned pt at work 12-24-06 to call about scheduling auto Asthma Social History Tobacco Use Smoking status: Never Smokeless tobacco: Never Tobacco comments: Father smoked in childhood home . ETS exposure in current home. Vaping Use Vaping Use: Never used Substance Use Topics Alcohol use: No Drug use: No Review of Systems Respiratory: Positive for cough. Negative for apnea, choking, chest tightness, shortness of breath,wheezing and stridor. Cardiovascular: Negative. OBJECTIVE LMP 02/11/2011 Physical Exam Constitutional: General: She is not in acute distress. Appearance: She is not ill-appearing, toxic-appearing or diaphoretic. Comments: During the visit she is alert, oriented, breathing is quiet, not labored, no apparent distress. Neurological: Mental Status: She is alert. ASSESSMENT/PLAN: 1. Moderate persistent asthma without complication - ICD9: 493.90, ICD10: J45.40 (primary diagnosis) - Moderate persistent asthma worse - Start mometasone-formoterol (DULERA) - Avoidance of triggers recommended - MOMETASONE-FORMOTEROL HFA 200 MCG-5 MCG/ACTUATION AEROSOL INHALER 2. Morbid obesity (HCC) - ICD9: 278.01, ICD10: E66.01 Wants to keep working on weight loss. We will increase the Wellbutrin and see if helpful for some appetite suppression. 3. Reactive depression - ICD9: 300.4, ICD10: F32.9 - BUPROPION XL 300 MG 24 HR TAB 4. Anxiety state - ICD9: 300.00, ICD10: F41.1 - LORAZEPAM 1 MG TABLET PDMP website checked and validated. All prescriptions have been APPROPRIATELY filled. No suspiciousactivity was identified. 04/14/2023 by Silvestre Jain APRN.CNP Patient verbalizes understanding of instructions from today's visit and in agreement with treatmentplan. Questions answered. Agrees to call the office if symptoms do not improve or if they worsen. Return if symptoms worsen or fail to improve, for Keep next scheduled appointment.. Patient has consented to patient-provider interaction via telephone/virtual visit for the medical decision making documented in this telephone/virtual visit encounter. Total Time Spent: 15 minutes Silvestre Jain APRN.CNP documented [facility]02-16-[facility]24 Miscellaneous Notes* Telephone Encounter - Marquez Araya Ma - 04/11/2023 1:55 PM EST Patient notified, verbalized understanding. * Telephone Encounter - Silvestre Jain APRN.CNP - 04/11/2023 12:11 PM EST Please let her know I sent in an albuterol inhaler to use but if symptoms continue she should be seen. * Telephone Encounter - Anh Hazel LPN - 04/10/2023 10:11 AM EST Patient calling asking if she could have rx for inhaler, she had taken long time ago. In her medication history found Symbicort back in 2010. She is using her nebulizer every 6 hours. But she feels needs inhaler to using every day also. She completed her prednisone but still coughing, wheezing at times. Patient uses [facility] for her pharmacy. Please advise documented in this encounterNew[facility]02-06-2024 Miscellaneous Notes* Telephone Encounter - Gay Clements LPN - 04/01/2023 2:46 PM EST Patient has been identified by name and date of : Yes Patient phones for refill(s): Requested Prescriptions Pending Prescriptions Disp Refills albuterol (PROVENTIL) 2.5 mg /3 mL (0.083 %) nebulizer solution 300 mL 5 Sig: inhale contents of one vial in nebulizer every 6 hours if needed for wheezing and shortness ofbreath fluticasone (FLONASE) 50 mcg/actuation nasal spray 3 Each 3 Sig: Use 2 Sprays in each nostril once daily as needed. Date of last office visit in primary care: 02/28/2023 Date of next office visit in primary care: 04/14/2023 Please advise. Thank you. Gay Clements LPN. * Telephone Encounter - Princess Thorpe - 04/01/2023 12:14 PM EST Pharmacy verified in Epic Patient has been identified by name and date of : Yes Patient aware RX will be sent to pharmacy. No need to notify patient. Pharmacy phones for refill(s): Requested Prescriptions Pending Prescriptions Disp Refills albuterol (PROVENTIL) 2.5 mg /3 mL (0.083 %) nebulizer solution 300 mL 5 Sig: inhale contents of one vial in nebulizer every 6 hours if needed for wheezing and shortness ofbreath fluticasone (FLONASE) 50 mcg/actuation nasal spray 3 Each 3 Sig: Use 2 Sprays in each nostril once daily as needed. Date of last office visit : 02/28/2023 Date of next office visit : 04/14/2023 Last 2 Encounter Wt Readings: Date: Wt: 08/21/2022 149.7 kg (330 lb) 08/12/2022 153.8 kg (339 lb) Please advise. Princess Sylvester documented in this encounterNew[facility]12-[facility]-2023 Miscellaneous Notes* Telephone Encounter - Sridevi Isabel LPN - 01/29/2023 3:49 PM EST Last office visit: 01/01/23 Next appointment scheduled: 04/08/23 Patient phones requesting refills as follows: Requested Prescriptions Pending Prescriptions Disp Refills furosemide (LASIX) 20 mg tablet 60 tablet 2 Sig: Take 1-2 tablets by mouth once daily as needed (edema/fluid retention). Please review and advise. Sridevi Isabel LPN * Telephone Encounter - Alona Le - 01/29/2023 1:59 PM EST Patient has been identified by name and date of : Yes Requested Prescriptions Pending Prescriptions Disp Refills furosemide (LASIX) 20 mg tablet 60 tablet 2 Sig: Take 1-2 tablets by mouth once daily as needed (edema/fluid retention). RX INSTRUCTIONS: Pharmacy initiated this request. [facility] stated 40 mg. No need to notify patient. Alona Le documented in this encounterNew[facility]12-06-2023 History of Present illness Narrative* Leticia Echavarria RPh - 01/29/2023 11:00 AM EST Primary Care Pharmacy Visit CC (Reason for Consult): Diabetes (E11.9) Type 2 diabetes (HCC) (primary encounter diagnosis) Goal: A1c < 7% Last Collaborating Provider Visit: 01/01/23 Meggan Arita is a 62 year old female presenting for initial visit: This initial consult was conducted telephone call with the patient where the consult agreement was explained. The patient may decline or cancel the agreement at any time. After consideration, the patient consented to the pharmacy consult agreement and agreed to allow medications be collaboratively managed by a pharmacist. Interim Events: Per referral notes: "Patient cannot tolerate Trulicity and will be trying Farxiga. Needs help with adjusting and/or changing meds as tolerated and as needed for weight loss and DM control." Previously worked with PharmD, was discharged back to PCP for DM mngt in November 2022 due to achieving adequate control of DM. 01/01: Saw [facility], treated with Omnicef for suspected diverticulitis/cystitis; Lasix increased and Trulicity dose increased Patient later requested to be taken off Trulicity due to ADEs. Was started on Farxiga though started experiencing diarrhea - advised to stop Farxiga on 01/25 to see if sx resolved. HPI: Patient forgot visit, ended up completing appt via phone. States Trulicity is not working as well as it used to. Said she was in a half-way in July 2021 through January 2022. During that time she lost a lot of weight and she thinks it was a result of Trulicity. Denied having any issues with Trulicity. Says her legs and inner thighs are now quite large, states it is fat. Have been increasing in size for the past 3 months. States she did talk to a [facility] about it. States she had furosemide increased and then Trulicity increased to 4.5mg, did have someADRs, diarrhea. She states that she stopped Trulicity for a few weeks, is now back on Trulicity forthe past month or so and is tolerating fine. She doesn't feel it is working as well for her for weight loss as it used to, wondering if there is another option. States sugar counts are good. States she started Farxiga and it caused diarrhea. She stopped it a few days ago and diarrhea went away. Is concerned about size of legs and thighs. States it hurts to bend her legs to get into a car. Current DM Medications: Dapagliflozin (Farxiga) 5mg weekly (not taking) Dulaglutide (Trulicity) 4.5mg weekly on Fridays Past DM medications: Ramon - didn't feel it worked well for her Dania - said this put her in the hospital SMBGS (Fingersticks) Checking AM and HS readings; FBGs usually 130s, lunchtime ~150s, evening ~150s or lower (after dinner); no issues with low blood sugars. Preventative Medications: On HYUN/ARB: Yes On Statin: No DIET/EXERCISE/SOCIAL Hx: Breakfast: bagel or bowl Honey Nut Cheerios; sometime egg omlet or boiled eggs Lunch: leftovers; sandwich; salad Dinner: last night had roast beef with potatoes and carrots and 1 biscuit Snacks: occasionally crackers at bedtime; cheese sticks Following Na restrictions: avoids salty things; avoids processed foods Beverages: Cammie Chiquis (20 oz/day), OJ (rarely drinks, maybe 1/4 cup), "I hate water" though forces self to drink it; occasionally drinks milk, hot tea Exercise: uses walker; difficulty going up and down stairs; does have a foot pedal and she will sitin wheelchair and pedal; hasn't started using it yet MEDICATIONS: Pill bottles are not present. Adherence: denies missed doses. [facility]acy: [id number] - [place] [address] - [address] [facility] [phone] Rx coverage: Payor: [facility] MEDICAID / Plan: [facility] MEDICAID / Product Type: Medicaid / Medications affordable? Yes Diabetes Supplies: Yes Organization system: son sets up pill box weekly ACTIVE PROBLEM LIST Hypertension Obstructive Sleep Apnea Asthma Esophageal Reflux Generalized Osteoarthrosis, Unspecified Site Anxiety State Iron Deficiency Anemia, Unspecified Edema Spinal Stenosis, Lumbar Region, Without Neurogenic Claudication Allergic Rhinitis Chronic Hepatitis, Unspecified (Hcc) Pulmonary Hypertension (Hcc) Bmi 60.0-69.9, Adult (Hcc) Type 2 Diabetes (Hcc) Depression Primary Osteoarthritis of Both Knees Ulcer of Left Lower Extremity, Limited to Breakdown of Skin (Hcc) Bilateral Leg Edema Mixed Hyperlipidemia Stage 3 Chronic Kidney Disease (Hcc) PAST MEDICAL HISTORY Diagnosis Date Acute gastritis without mention of hemorrhage ALLERGIC RHINITIS NOS 07/15/2007 ANXIETY STATE NOS 12/09/2006 Carpal tunnel syndrome 04/10/2007 Bilateral symptoms with the left worse than the right as of 04-03 CHOLELITH W CHOLECYS NEC 02/07/2005 Lap favio in 03-01 Chronic hepatitis, unspecified (HCC) 03/06/2005 Depression Edema 06/01/2007 Admit 07-08-08 for RLE venous stasis ulcer on Cubicin. Put pt on disability from 08-03-08 to 11-24-08 Esophageal reflux GENERAL OSTEOARTHROSIS 10/29/2006 Headache(784.0) 01/20/2007 [facility] Rheum 12-26: consid Sjogren's, CT chest/MRI head/HYUN/KEO/OSMANY/ANCA/SSA/SSB neg Again reinforced the need to start CPAP on 03-04-07: unable to afford as of 04-03 for insurance issues INSOMNIA NOS 07/31/2007 IRON DEFIC ANEMIA NOS 01/20/2007 Colon 03-22-02 ([facility]): no polyps, masses or AVMs Lactose intolerance Low blood potassium 10/20/2014 Low magnesium level 07/08/2016 Morbid obesity (HCC) Obesity, unspecified Obstructive sleep apnea Other dyspnea and respiratory abnormality Primary osteoarthritis of both knees 03/08/2020 severe narrowing of the medial joint space with marginal osteophytes--x-ray knee 2016 SPINAL STENOSIS-LUMBAR 07/09/2007 Stasis edema with ulcer (HCC) 08/02/2013 Type II or unspecified type diabetes mellitus without mention of complication, not stated as uncontrolled 08/05/2007 Unspecified asthma(493.90) Unspecified essential hypertension Past medical history reviewed. ALLERGIES Allergen Reactions Ciprofloxacin Diarrhea Nausea and diarrhea Mounjaro [Tirzepati* Diarrhea, Vomiting Hospitalized with dehydration and acute kidney injury. Did tolerate Trulicity Buspar [Buspirone H* Other: See Comments Insomnia Carafate [Sucralfat* tightens up chest unable to swallow Celebrex [Celecoxib] Other: See Comments tachycardia, heart palpitations Cheratussin Itching Codeine GI Upset sick to her stomach but able to tolerate in Tylenol with codeine #3 Doxycycline Intolerance, Vomiting Iodine difficulty breathing, swelling, hives Latex difficulty breathing and swelling Levaquin [Levofloxa* GI Upset Meloxicam Rash pruritic rash within hours of taking med Penicillins Swelling, Shortness of Breath Prednisone Mental Status Change Vicodin [Hydrocodon* Itching swelling Medication List Medication Directions Comments Action/Plan albuterol (PROVENTIL) 2.5 mg /3 mL (0.083 %) nebulizer solution inhale contents of one vial in nebulizer every 6 hours if needed for wheezing and shortness of breath Uses PRN ascorbic acid, vitamin C, (VITAMIN C) 500 mg tablet Take 1 tablet by mouth once daily. Taking at noon bismuth subsalicylate (PEPTO-BISMOL) 262 mg chew Take 2 tablets by mouth four times daily. Only uses occasionally PRN, last used a very long time ago Removed from med list Blood Pressure Test Kit-Large (QUICK RESPONSE BP MONITOR) Check blood pressure daily or as needed. I10 Hypertension supplies blood sugar diagnostic (BLOOD GLUCOSE TEST) test strip Test blood sugar(s) four times daily. Dx: Type 2 DM - Controlled E11.9 Insulin: No blood sugar diagnostic (BLOOD GLUCOSE TEST) test strip Test blood sugar(s) 4 times daily. Dx: Type 2 DM - Controlled E11.9 Insulin: No blood sugar diagnostic (RELION PRIME TEST STRIPS) test strip Test glucose 4 x per day. Dx: E11.9. Insulin use: no Blood-Glucose Meter (FREESTYLE FREEDOM LITE) monitoring kit 1 Each as needed. buPROPion XL (WELLBUTRIN XL) 150 mg 24 hr tablet Take 1 tablet by mouth once daily. Taking QAM Chlorhexidine Gluconate (PERIDEX) 0.12 % solution Use 15 mL as instructed twice daily. Rinse aroundmouth for 30 seconds then expectorate (spit out). Has for PRN use if gets a rash from sleeping machine; thinks last used 1 month ago Cholecalciferol, Vitamin D3, 50 mcg (2,000 unit) cap Take 1 capsule by mouth once daily. Taking at noon COMPOUNDED PRESCRIPTION TENS Unit 4 lead. Use as directed. Needs refills for leads 1 per month as needed Dispense 1 with 5 refills. (M48.06) Spinal stenosis, lumbar region, without neurogenic claudication supplies CPAP AutoPAP 5-12 CM H2O with humidification. Mask (per patient preference) optional chin strap (ifindicated) , filters, tubing, humidifier and lifetime supplies. supplies cyclobenzaprine (FLEXERIL) 5 mg tablet Take 1 tablet by mouth three times daily as needed. Has for PRN use dapagliflozin propanediol (FARXIGA) 5 mg tablet Take 1 tablet by mouth once daily. Take one daily in the morning Stopped taking a few days ago due to diarrhea Diaper,Brief, Adult,Disposable (DISPOSABLE BRIEF) Bariatric Briefs - Prevail #10 (thickest brief). 5 per day. supplies dicyclomine (BENTYL) 10 mg capsule Take 1 capsule by mouth three times a day. No longer using Marked as not using diphenoxylate-atropine (LOMOTIL) 2.5-0.025 mg per tablet Take 1 tablet by mouth four times daily asneeded for diarrhea for up to 7 days. No longer using Removed from med list docusate sodium (COLACE) 100 mg capsule Take 2 capsules by mouth DAILY AT 6 PM. No longer using Removed from med list dulaglutide (TRULICITY) 4.5 mg/0.5 mL pen injector Inject 4.5 mg subcutaneously one time a week. Taking once weekly ferrous sulfate (IRON ORAL) Take by mouth. Taking daily, dose unknown flash glucose sensor (FREESTYLE SHAKIRA 2 SENSOR) kit Apply new sensor every fourteen (14) days to upper arm. Using finger stick fluticasone (FLONASE) 50 mcg/actuation nasal spray Use 2 Sprays in each nostril once daily as needed. Has for PRN use furosemide (LASIX) 20 mg tablet Take 1-2 tablets by mouth once daily as needed (edema/fluid retention). Taking 2 tabs (40mg) daily since last [facility] appt insulin needles, DISPOSABLE, (BD INSULIN PEN NEEDLE UF) 31 gauge x 5/16" USE 6 DAILY DIRECTED with Toujeo and Humalog and [place] ipratropium (ATROVENT) 0.02 % nebulizer solution Use 2.5 mL via nebulizer four times daily as needed (wheezing). Use over 5-15minutes. Use in addition to albuterol nebulizer. Has for PRN use ketoconazole (NIZORAL) 2 % cream apply to affected area OF RASH AND SURROUNDING AREA UNDER BREAST once daily Not using, not using Nystatin powder almost daily Removed from med list Lancets lancets Test blood sugar(s) 4 times daily. Dx: Type 2 DM - Controlled E11.9 Insulin: No LORazepam (ATIVAN) 1 mg tablet Take 0.5-1 tablets by mouth once daily as needed for anxiety for up to 30 days. Taking QHS for anxiety; denies waking up groggy or drowsy, states she wakes up refreshed losartan (COZAAR) 100 mg tablet Take 1 tablet by mouth once daily. Taking QAM metOLazone (ZAROXOLYN) 5 mg tablet Take 1 tablet by mouth once daily as needed. Take 1/2 hour before lasix. Not using Miscellaneous Medical Supply Order: Overnight pulse ox on 4LPM Diagnosis: R09.02 (checking if needsO2 increased at night) supplies montelukast (SINGULAIR) 10 mg tablet Take 1 tablet by mouth daily at bedtime. Uses PRN, usually only in late spring or late fall Nebulizer NEBULIZER FOR HOME USE. DX: (J45.20) Mild intermittent asthma without complication supplies nystatin (MYCOSTATIN) powder Apply 1 application to affected area four times daily. Using daily pantoprazole DR (PROTONIX) 40 mg tablet Take 1 tablet by mouth once daily. Taking QAM polyethylene glycol 3350 (MIRALAX) 17 gram/dose powder 2 scoop in liquid daily as needed for bowel movement PRN, last used a month ago potassium chloride ER (KLOR-CON) 20 mEq tablet Take 1 tablet by mouth two times a day. As directed Taking BID venlafaxine ER (EFFEXOR XR) 75 mg 24 hr capsule Take 1 capsule by mouth once daily. Taking qAM WALKER ROLLATOR SEAT WITH 6" WHEELS - RED Diagnosis: Unsteady gait, primary osteoarthritis both knees, decreased mobility supplies Zinc Acetate, Oral, 25 mg (zinc) cap Take 1 capsule by mouth once daily. Taking daily, called "Galzin" on bottle Exam: LMP 02/11/2011 Last 3 Encounter BP Readings: Date: BP: 01/01/2023 160/86 11/05/2022 148/86 09/02/2022 122/53 Wt: 149.7 kg (330 lb) BMI: 50.18 kg/(m^2) LABS: Reviewed Lab Results Component Value Date HBA1C 4.9 11/05/2022 HBA1C 4.7 08/30/2022 HBA1C 5.3 02/27/2022 HBA1C 7.4 07/07/2021 HBA1C 6.9 09/05/2020 HBA1C 6.7 03/28/2020 HBA1C 8.4 11/06/2019 CMP: Glucose 86 01/01/2023 BUN 15 01/01/2023 Creatinine, Whole Blood (iSTAT) 1.33 01/01/2023 Sodium 142 01/01/2023 Potassium 3.8 01/01/2023 Chloride 104 01/01/2023 CO2 28 01/01/2023 Protein, Total 7.9 01/01/2023 Albumin 3.8 01/01/2023 Calcium 9.3 01/01/2023 Alkaline Phosphatase 107 01/01/2023 Bilirubin, Total 0.6 01/01/2023 AST 14 01/01/2023 ALT 10 01/01/2023 No results found for: "GFR" CrCl cannot be calculated (Unknown ideal weight.). Lab Results Component Value Date CHOL 155 11/05/2022 CHOL 119 03/28/2020 LDL 95 11/05/2022 LDL 70 03/28/2020 HDL 51 11/05/2022 HDL 37 03/28/2020 TG 46 11/05/2022 TG 59 03/28/2020 The 10-year ASCVD risk score (Annabella CHAPA, et al., 2019) is: 25.8% Values used to calculate the score: Age: 62 years Sex: Female Is Non- : Yes Diabetic: Yes Tobacco smoker: No Systolic Blood Pressure: 160 mmHg Is BP treated: Yes HDL Cholesterol: 51 mg/dL Total Cholesterol: 155 mg/dL Albumin/Creat Ratio (mg/g) Date Value 11/06/2019 Not calculated PHARMACOTHERAPY ASSESSMENT/PLAN: 1. Type 2 diabetes (HCC) - ICD9: 250.00, ICD10: E11.9 (primary diagnosis) A1c goal < 7%; controlled (last A1c 4.9%); SMBGs at goal; pt re-established with PharmD because doesn't think Trulicity is working as well for weight loss as previously; currently taking max-dose and tolerating fine; recently started on farxiga 5mg but experienced diarrhea; would benefit from SGLT2i given CKD and added weight loss potential --> pt open to retrying medication; f/up in 1 mo RESTART Farxiga 5mg daily Advised to stop Farxiga if diarrhea resumes and contact PharmD CONTINUE Trulicity 4.5mg weekly Encouraged decreasing soda intake, drink more water; encouraged exercise using chair pedal bike - BASIC METABOLIC PNL - ALBUMIN/CREAT RATIO RND UR 2. Medication management - ICD9: V58.69, ICD10: Z79.899 Reviewed all medications, indications, dosing, frequency, administration with patient. Medication list updated as described above. Follow-up Patient is scheduled to see PCP team on 04/08. Patient to have f/up with PharmD team on 03/05. Patient verbalized understanding of instructions. Leticia Echavarria PharmD, BCPS Primary Care Clinical Pharmacist The majority of the pharmacy visit (> 50%) was spent counseling and/or coordinating care for thepatient. interaction: telephonic time was 55 minutes. [facility] Miscellaneous Notes* Telephone Encounter - Rina Rincon LPN - 01/28/2023 10:18 AM EST Patient aware of PCP recommendations, verbalizes understanding. Rina Rincon LPN * Telephone Encounter - Erica Cannon MD - 01/25/2023 2:15 PM EST Budesonide would not be used for treating the side effect of a medication but for inflammatory bowel problem. Looks this was given after was in the hospital and one the tests showed possible inflammatory bowel. Would stop the Farxiga and see if diarrhea stops. If diarrhea does not resolve, then can repeat the fecal calprotectin to see whether has possible IBD flare up and needs budesonide. Follow up as needed Sent above in a Open[employer] message. Make sure patient sees it and responds. * Telephone Encounter - Shant Boyle RN - 01/24/2023 1:47 PM EST Patient reports she is having liquid stools for 2 days now. Protocol recommends home care. Patient thinks it's because her medication was changed from trulicity to farxiga. Reports the last time thishappened pcp sent budesonide 3 mg to pharmacy and it helped. Asking if pcp would send this to [facility]? Reason for Disposition MILD-MODERATE diarrhea (e.g., 1-6 times / day more than normal) Answer Assessment - Initial Assessment Questions 1. DIARRHEA SEVERITY: 6 liquid stools in last 24 hours, total. 2. ONSET: 2 days ago 3. BM CONSISTENCY: Liquid 4. VOMITING: No 5. ABDOMEN PAIN: Moderate sometimes but not much, feels like cramping. Goes away after having diarrhea stool. 6. ABDOMEN PAIN SEVERITY: Moderate when cramping. 7. ORAL INTAKE: Drinking liquids- 8-9 glasses in last 24 hours. 8. HYDRATION: No dry mouth, no dizziness, no weakness, no weight loss. No problems with urination. 9. EXPOSURE: Not that she knows of. No spoiled food. 10. ANTIBIOTIC USE: Took AB's about a month ago. 11. OTHER SYMPTOMS: No fever. No blood in stool. 12. : No Protocols used: [id number] documented in this encounter[facility]11-21-2023 Miscellaneous Notes* Telephone Encounter - Shant Boyle RN - 01/14/2023 8:53 AM EST Phoned patient and given provider's message below with verbalized understanding. Patient states nestorwill try the farxiga- and will call pcp with any concerns regarding this medication. Patient statesshe continues to do exercise as much as possible, but the swelling in her thighs makes it a little more challenging. Reports she discussed the swelling in her thighs with Silvestre at recent appt on 01-01.Reports she has not changed her diet at all and does eat healthy. Reports she has flu s/s since Sat: body aches, YI, plugged nose, sore throat, also a wheeze that improves with use of her inhaler andnebulizer. Reports covid test was negative. Advised to treat as she would a virus, with OTC medications, plenty of fluids, tylenol for YI and body aches, cool mist humdiifier. Advised to call back with any concerns regarding her symptoms. Advised to ER if symptoms do not improve or worsen. Patient is agreeable. * Telephone Encounter - Erica Cannon MD - 01/14/2023 1:14 AM EST Farxiga has helped with weight loss but appetite suppression not main mechanism of action for weight loss. Might not be as much in studies as meds like Ozempic, but still the weight loss has been shows to be sustained over time (1 to 2 years in some trials). How is she doing with making better choices with her meals and nutrition? And regular exercise as able? * Telephone Encounter - Lexii Fowler RN - 01/13/2023 1:23 PM EST Patient contacted and given provider's message below. Patient states she "read up on Farxiga" and it does not mention if this medication "curbs your appetite". Pt wants to know if this medication will help decrease her appetite? Please call pt with reply. Thank you. * Telephone Encounter - Erica Cannon MD - 01/10/2023 1:07 PM EST Blood sugars are fine Start Farxiga at lower dose and if covered and tolerated, can increase dose after this month--she needs to let me know after 3 weeks so can send in new RX if does not have appointment with PharmD by then. If has problems with recurrent yeast infection, would need to stop Farxiga and/or determine prevention strategy for yeast infections Filed consult PharmD order so may work with them again on med adjustments. * Telephone Encounter - Nanci Dorado LPN - 01/10/2023 11:15 AM EST Readings: before medication and breakfast 01-05-23 8:30 am 145 01-06-23 8:30 am 120 01-07-23 8:30 am 120 01-08-23 8:30 am 129 01-09-23 8:30 am 145 01-10-23 8:30 am 147 Pt will try the Farxiga and since this can cause yeast infection she is asking for medication to besent in for yeast infection. Phone call to pt when medication has been sent to them. Apt booked for March with Silvestre. Pt would like to have a virtual apt with PharmD. Please put in referral and help get apt booked. Nanci Dorado LPN * Telephone Encounter - Erica Cannon MD - 01/10/2023 1:13 AM EST What are her blood sugars now? Consider Farxiga but note can increase risk of yeas infection. Might be expensive since Preferred Level 1. Increased risk for yeast infection. Dose could be increased after 4 weeks. Also, consider working with pharmD (Leticia) via Virtual Visits. Needs next follow up appointment scheduled. * Telephone Encounter - Treva Cr RN - 01/09/2023 11:43 AM EST Patient calls and notified of provider recommendations. Patient states that she needs to be put on something. Patient asking what else can she take besidesTrulicity and Ozempic? Please review and advise, Treva Cr RN * Telephone Encounter - Erica Cannon MD - 01/08/2023 11:27 PM EST Let patient know she may stop the Trulicity if it is causing side effects. Also she was already on Ozempic which is Semaglutide which is the same active ingredient in Wegovy.Prior notes record that she said Ozempic was not working. * Telephone Encounter - Janey Hua - 01/08/2023 4:56 PM EST Patient calling to check status. Notified her that [facility] was not in today nor tomorrow. She is asking me to send it high priority. * Telephone Encounter - Daphne Ochoa LPN - 01/08/2023 10:29 AM EST Patient called, asking if she can be taken off of Trulicity. Thinks that it is contributing to her leg swelling and she would like to take a different medication. Patient asking Wegovy would be an option? Please advise. documented [facility] this [facility]11-08-2023 Instructions* Patient Instructions* Silvestre Jain APRN.CNP - 01/01/2023 10:46 AM EST Ok to increase the Trulicity, new script sent. Start taking the Lasix 20 mg as 2 pills ok to take together. This will help swelling and blood pressure. Miralax to keep bowels regular. Can use Bentyl for abdominal pain. Start antibiotics for any infection going on. Pelvic ultrasound and follow up with aerosol supervisor. Blood work today. IF YOU CHANGE YOUR MIND AND WANT A CAT SCAN LET ME KNOW. documented in this encounterNew[facility]11-08-2023 History of Present illness Narrative* Silvestre Jain APRN.NIKKY - 01/01/2023 10:35 AM EST SUBJECTIVE Meggan Arita is a 62 year old female here today for acute concern. Chief Complaint Patient presents with: Abdominal Pain: left lower quad and urinary frequency with pain after urination for about 1 week. Noted swelling in left upper leg and nauseated since symptoms started but no vomiting HPI Meggan Arita is a 62 year old female. Here today for concerns of some left lower quadrant abdominal pain and urinary frequency with pain after urination. Onset about a week ago. Not better, not much worse. Stomach feels bigger on that side. Feels like leg is swollen on that side. Last bowel movement was the night before last. Some nausea but no vomiting. Appetite is okay. No prior pancreatitis. Some abdominal cramping. Concerns of antibiotic induced yeast infections. She also notes at timeshe feels like there has been a pain going in to her uterus but that has been on going. Would like to see aerosol supervisor. Her medications were reviewed today and her list is now up to date. Medications Current Outpatient Medications Medication Sig metOLazone (ZAROXOLYN) 5 mg tablet Take 1 tablet by mouth once daily as needed. Take 1/2 hour before lasix. LORazepam (ATIVAN) 1 mg tablet Take 0.5-1 tablets by mouth once daily as needed for anxiety for up to 30 days. potassium chloride ER (KLOR-CON) 20 mEq tablet Take 1 tablet by mouth two times a day. As directed furosemide (LASIX) 20 mg tablet Take 1-2 tablets by mouth once daily as needed (edema/fluid retention). ascorbic acid, vitamin C, (VITAMIN C) 500 mg tablet Take 1 tablet by mouth once daily. Zinc Acetate, Oral, 25 mg (zinc) cap Take 1 capsule by mouth once daily. Cholecalciferol, Vitamin D3, 50 mcg (2,000 unit) cap Take 1 capsule by mouth once daily. montelukast (SINGULAIR) 10 mg tablet Take 1 tablet by mouth daily at bedtime. buPROPion XL (WELLBUTRIN XL) 150 mg 24 hr tablet Take 1 tablet by mouth once daily. Chlorhexidine Gluconate (PERIDEX) 0.12 % solution Use 15 mL as instructed twice daily. Rinse aroundmouth for 30 seconds then expectorate (spit out). pantoprazole DR (PROTONIX) 40 mg tablet Take 1 tablet by mouth once daily. losartan (COZAAR) 100 mg tablet Take 1 tablet by mouth once daily. albuterol (PROVENTIL) 2.5 mg /3 mL (0.083 %) nebulizer solution inhale contents of one vial in nebulizer every 6 hours if needed for wheezing and shortness of breath ipratropium (ATROVENT) 0.02 % nebulizer solution Use 2.5 mL via nebulizer four times daily as needed (wheezing). Use over 5-15minutes. Use in addition to albuterol nebulizer. nystatin (MYCOSTATIN) powder Apply 1 application to affected area four times daily. ferrous sulfate (IRON ORAL) Take by mouth. cyclobenzaprine (FLEXERIL) 5 mg tablet Take 1 tablet by mouth three times daily as needed. venlafaxine ER (EFFEXOR XR) 75 mg 24 hr capsule Take 1 capsule by mouth once daily. flash glucose sensor (FREESTYLE SHAKIRA 2 SENSOR) kit Apply new sensor every fourteen (14) days to upper arm. fluticasone (FLONASE) 50 mcg/actuation nasal spray Use 2 Sprays in each nostril once daily as needed. ketoconazole (NIZORAL) 2 % cream apply to affected area OF RASH AND SURROUNDING AREA UNDER BREAST once daily bismuth subsalicylate (PEPTO-BISMOL) 262 mg chew Take 2 tablets by mouth four times daily. docusate sodium (COLACE) 100 mg capsule Take 2 capsules by mouth DAILY AT 6 PM. polyethylene glycol 3350 (MIRALAX) 17 gram/dose powder 2 scoop in liquid daily as needed for bowel movement dicyclomine (BENTYL) 10 mg capsule Take 1 capsule by mouth three times a day. dulaglutide (TRULICITY) 4.5 mg/0.5 mL pen injector Inject 4.5 mg subcutaneously one time a week. fluconazole (DIFLUCAN) 150 mg tablet Take 1 tablet by mouth one time only for 1 dose. Repeat in 3 days as needed. cefdinir (OMNICEF) 300 mg capsule Take 1 capsule by mouth two times a day for 10 days. blood sugar diagnostic (BLOOD GLUCOSE TEST) test strip Test blood sugar(s) 4 times daily. Dx: Type 2 DM - Controlled E11.9 Insulin: No blood sugar diagnostic (RELION PRIME TEST STRIPS) test strip Test glucose 4 x per day. Dx: E11.9. Insulin use: no Blood Pressure Test Kit-Large (QUICK RESPONSE BP MONITOR) Check blood pressure daily or as needed. I10 Hypertension Diaper,Brief, Adult,Disposable (DISPOSABLE BRIEF) Bariatric Briefs - Prevail #10 (thickest brief). 5 per day. diphenoxylate-atropine (LOMOTIL) 2.5-0.025 mg per tablet Take 1 tablet by mouth four times daily asneeded for diarrhea for up to 7 days. WALKER ROLLATOR SEAT WITH 6" WHEELS - RED Diagnosis: Unsteady gait, primary osteoarthritis both knees, decreased mobility insulin needles, DISPOSABLE, (BD INSULIN PEN NEEDLE UF) 31 gauge x 5/16" USE 6 DAILY DIRECTED with Toujeo and Humalog and Byetta blood sugar diagnostic (BLOOD GLUCOSE TEST) test strip Test blood sugar(s) four times daily. Dx: Type 2 DM - Controlled E11.9 Insulin: No Lancets lancets Test blood sugar(s) 4 times daily. Dx: Type 2 DM - Controlled E11.9 Insulin: No CPAP AutoPAP 5-12 CM H2O with humidification. Mask (per patient preference) optional chin strap (ifindicated) , filters, tubing, humidifier and lifetime supplies. Miscellaneous Medical Supply Order: Overnight pulse ox on 4LPM Diagnosis: R09.02 (checking if needsO2 increased at night) Blood-Glucose Meter (KROGNISTYLE FREEDOM LITE) monitoring kit 1 Each as needed. COMPOUNDED PRESCRIPTION TENS Unit 4 lead. Use as directed. Needs refills for leads 1 per month as needed Dispense 1 with 5 refills. (M48.06) Spinal stenosis, lumbar region, without neurogenic claudication Nebulizer NEBULIZER FOR HOME USE. DX: (J45.20) Mild intermittent asthma without complication Current Facility-Administered Medications Medication Dose Route Frequency perflutren lipid microspheres 1.3 mL in NaCl (PF) 0.9% 10 mL injection (DEFINITY) INTRAVENOUS DIRECTED PRN sodium chloride 0.9 % (flush) 10 mL (BD POSIFLUSH) 10 mL INTRAVENOUS DIRECTED PRN ALLERGIES Allergen Reactions Ciprofloxacin Diarrhea Nausea and diarrhea Mounjaro [Tirzepati* Diarrhea, Vomiting Hospitalized with dehydration and acute kidney injury. Did tolerate Trulicity Buspar [Buspirone H* Other: See Comments Insomnia Carafate [Sucralfat* tightens up chest unable to swallow Celebrex [Celecoxib] Other: See Comments tachycardia, heart palpitations Cheratussin Itching Codeine GI Upset sick to her stomach but able to tolerate in Tylenol with codeine #3 Doxycycline Intolerance, Vomiting Iodine difficulty breathing, swelling, hives Latex difficulty breathing and swelling Levaquin [Levofloxa* GI Upset Meloxicam Rash pruritic rash within hours of taking med Penicillins Swelling, Shortness of Breath Prednisone Mental Status Change Vicodin [Hydrocodon* Itching swelling ACTIVE PROBLEM LIST Mixed Hyperlipidemia - 08/07/2022 Stage 3 Chronic Kidney Disease (Hcc) - 08/07/2022 Ulcer of Left Lower Extremity, Limited to Breakdown of Skin ([facility]) - 02/20/2022 Comment: Large wound medial thigh; also 2 smaller ones (medial and lateral thigh) Bilateral Leg Edema - 02/20/2022 Comment: Not needing as much Lasix as before; would take metolazone before Lasix as before for prn use Primary Osteoarthritis of Both Knees - 03/08/2020 Comment: severe narrowing of the medial joint space with marginal osteophytes--x-ray knee 2016 Depression - 01/24/2016 Type 2 Diabetes ([facility]) - 09/01/2014 Bmi 60.0-69.9, Adult ([facility]) - 06/30/2014 Pulmonary Hypertension ([facility]) - 04/23/2013 Allergic Rhinitis - 07/15/2007 Spinal Stenosis, Lumbar Region, Without Neurogenic Claudication - 07/09/2007 Comment: not sure where this diagnosis came from since no prior MRI or CT scan with mention of this diagnosis Edema - 06/01/2007 Comment: Admit 07-08-08 for RLE venous stasis ulcer on Cubicin. Put pt on disability from 08-03-08 to 11-24-08 Iron Deficiency Anemia, Unspecified - 01/20/2007 Comment: Colon 03-22-02 ([facility]): no polyps, masses or AVMs Anxiety State - 12/09/2006 Generalized Osteoarthrosis, Unspecified Site - 10/29/2006 Esophageal Reflux - 03/16/2005 Comment: EGD in 06-30: no evidence of esophagitis but there is gastritis (H pylori was negative) Chronic Hepatitis, Unspecified ([facility]) - 03/06/2005 Comment: Liver biopsy w/ cholecystectomy Hypertension Comment: Echo at [place] 01-25: LVH, mild TR, LAE, RVE, PASP 38 (mild), no EF documented per Seese Seese 01-07-03: consider GERD for atyp CP, not cath candidate from obesity, doubt cardiac source ECG 03-30: NSR with PVC, lat T flattening, no ischemia/injury (ECG NL in 10-27 at [place]) Rec for Dobut Echo in 4-04 per Seese ([place]) prior to rec gastric bypass (Study 07-21-03 was NL) Admit for BRYAN in 09-29: rec Cardizem and Lopressor after negative enzymes, outpt stress Dobut Echo 11-18-05: 80% APMHR, No RWMA, NL but limited by not achieving APMHR LDL 96, HDL 45, TG 45 in 01-01 Restarted K supplements for K of 3.3 in 08-01 as pt on Lasix Order placed for Holter in 04-04 after ED visit for palpitations Metoprolol to 100 mg bid in 04-04 for BP and palpitations Holter 04-04: no AF, VT but pt with 7 sec pause Metop changed to Hydralazine and HCTZ as inpt in 04-04 with the Holter findings Carotids at [place] in 04-04: 1-15% stenosis bilaterally Obstructive Sleep Apnea Comment: Scheduled sleep study in 11-3012-08-06: sleep time 60 minutes/294 minutes studied, AHI 48, low sat 79%-rec auto-titrating CPAP Trial of an auto-titrating CPAP in 11-30: unable to sleep long enough for diagnosis Phoned pt at work 12-24-06 to call about scheduling auto Asthma Social History Tobacco Use Smoking status: Never Smokeless tobacco: Never Tobacco comments: Father smoked in childhood home . ETS exposure in current home. Vaping Use Vaping Use: Never used Substance Use Topics Alcohol use: No Drug use: No Review of Systems Respiratory: Negative. Cardiovascular: Positive for leg swelling. Negative for chest pain and palpitations. Gastrointestinal: Positive for abdominal pain and nausea. Negative for abdominal distention, anal bleeding, blood in stool, rectal pain and vomiting. OBJECTIVE BP 160/86 Pulse 81 SpO2 96% LMP 02/11/2011 Physical Exam Vitals and nursing note reviewed. Constitutional: General: She is awake. She is not in acute distress. Appearance: Normal appearance. She is well-developed and well-groomed. She is not ill-appearing, toxic-appearing or diaphoretic. HENT: Head: Normocephalic. Right Ear: External ear normal. Left Ear: External ear normal. Nose: Nose normal. Eyes: General: Vision grossly intact. Conjunctiva/sclera: Conjunctivae normal. Pupils: Pupils are equal, round, and reactive to light. Neck: Vascular: No JVD. Trachea: Trachea normal. Cardiovascular: Pulses: Normal pulses. Pulmonary: Effort: Pulmonary effort is normal. No accessory muscle usage, prolonged expiration or respiratory distress. Abdominal: General: Abdomen is protuberant. Bowel sounds are increased. There is no distension. Palpations: Abdomen is soft. There is no shifting dullness, fluid wave, hepatomegaly, splenomegaly,mass or pulsatile mass. Tenderness: There is abdominal tenderness in the left lower quadrant. There is no guarding or rebound. Negative signs include Soto's sign, Rovsing's sign and McBurney's sign. Musculoskeletal: Cervical back: Neck supple. Skin: General: Skin is warm and dry. Capillary Refill: Capillary refill takes less than 2 seconds. Neurological: General: No focal deficit present. Mental Status: She is alert and oriented to person, place, and time. Mental status is at baseline. Psychiatric: Attention and Perception: Attention and perception normal. Mood and Affect: Mood and affect normal. Speech: Speech normal. Behavior: Behavior normal. Behavior is cooperative. Thought Content: Thought content normal. Cognition and Memory: Cognition and memory normal. Judgment: Judgment normal. ASSESSMENT/PLAN: 1. Left lower quadrant abdominal pain - ICD9: 789.04, ICD10: R10.32 (primary diagnosis) Etiology unclear Differential Diagnosis includes Diverticulitis and Cystitis, not able to give a urine sample clean catch in office - Antibiotic treatment with omnicef given her allergies. - Labs of CBC with Diff, CMP, Amylase, and Lipase - Work up with pelvic ultrasound given her pelvic pain but discussed ideal would be a CT of abd/pelvis but she does not want this done at this time - Treatment for constipation discussed - Follow up if worsening of symptoms - DICYCLOMINE 10 MG CAPSULE - CBC + DIFF - COMP METABOLIC PANEL - AMYLASE BLD - LIPASE BLD - CEFDINIR 300 MG CAPSULE 2. Pelvic pain - ICD9: [id number], ICD10: R10.[address], wants to start with ultrasound and follow up with aerosol supervisor. Thinks this issue is separate than abdominal pain. - PELVIC US WHI - CONSULT TO GYNECOLOGY 3. Type 2 diabetes (HCC) - ICD9: 250.00, ICD10: E11.9 - DULAGLUTIDE 4.5 MG/0.5 ML SUBCUTANEOUS PEN INJECTOR 4. Primary hypertension - ICD9: 401.9, ICD10: I10 Discussed increasing lasix to the 40 mg daily dose due to some increased edema and increased blood pressure. Portions of this note have been entered by ancillary staff. I have reviewed and when necessary edited, so that they are an adequate record of my encounter with this patient Please note that parts of this document were created using voice recognition software and therefore may contain grammatical errors. Patient verbalizes understanding of instructions from today's visit and in agreement with treatmentplan. Questions answered. Agrees to call the office if questions, concerns of issues with acute symptoms not improving or if they worsen. See diagnoses and orders for additional plan(s). Allergies and medications were reviewed, list was updated, and refills given if needed. Past medical, surgical, social, and family history reviewed and updated as appropriate. Encouraged proper diet & exercise as well as compliance with taking medications. Age- appropriate health preventative measures were discussed. Return if symptoms worsen or fail to improve, for Keep next scheduled appointment.. Silvestre Jain APRN-NIKKY documented [facility] this [facility]11-[facility]23 Miscellaneous Notes* Telephone Encounter - Maria Dolores Ivan RN - 12/30/2022 8:49 AM EST Reason for Disposition Abdomen bloating or swelling are main symptoms [1] MILD SWELLING of abdomen (e.g., looks distended or swollen) AND [2] new- onset or getting worse Answer Assessment - Initial Assessment Questions 1. LOCATION: Lower abdomen below the belly button. 2. RADIATION: No 3. ONSET: a month 4. SUDDEN: gradual 5. PATTERN: intermittent 6. SEVERITY: - MILD (1-3): Doesn't interfere with normal activities, abdomen soft and not tender totouch. - MODERATE (4-7): Interferes with normal activities or awakens from sleep, abdomen tender to touch. 7. RECURRENT SYMPTOM: No 8. CAUSE:Patient not certain 9. RELIEVING/AGGRAVATING FACTORS: "What makes it better or worse?" (e.g., antacids, bending or twisting motion, bowel movement) Bowels are moving ok. She hasn't noticed anything that helps or hinders. 10. OTHER SYMPTOMS: No diarrhea, vomiting, urinary symptoms, or fever. Patient reports it as more of a cramping and feels like she is more bloated with firmness to the lower abdomen. Answer Assessment - Initial Assessment Questions 1. LOCATION: Lower abdomen below the belly button. 2. RADIATION: No 3. ONSET: a month 4. SUDDEN: gradual 5. PATTERN: intermittent 6. SEVERITY: - MILD (1-3): Doesn't interfere with normal activities, abdomen soft and not tender totouch. - MODERATE (4-7): Interferes with normal activities or awakens from sleep, abdomen tender to touch. 7. RECURRENT SYMPTOM: No 8. CAUSE:Patient not certain 9. RELIEVING/AGGRAVATING FACTORS: "What makes it better or worse?" (e.g., antacids, bending or twisting motion, bowel movement) Bowels are moving ok. She hasn't noticed anything that helps or hinders. 10. OTHER SYMPTOMS: No diarrhea, vomiting, urinary symptoms, or fever. Patient reports it as more of a cramping and feels like she is more bloated with firmness to the lower abdomen. Protocols used: Abdominal Pain - [id number], Abdomen Bloating and [id number] documented in this encounterNew[facility]10-11-2023 Miscellaneous Notes* Telephone Encounter - Talia Parks LPN - 12/04/2022 4:49 PM EDT Patient notified of provider's instructions. Patient verbalizes understanding and states if she is to go anywhere is going to see Dr. Cannon. Talia Parks LPN * Telephone Encounter - Talia Parks LPN - 12/04/2022 4:47 PM EDT Images from the original note were not included. Tom Bolaños You Yesterday (3:34 PM) Please inform patient that if she has pain in foot, this provider recommends she seek urgent attention at urgent care as I will be out of the office beginning tomorrow afternoon until next Chrystal Tom Bolaños DPM * Telephone Encounter - Nanci Boyd - 12/04/2022 4:39 PM EDT Pt calling again to see if Dr. Bolaños has any recommendations for her painful and itchy feet. States it was discussed at her last visit. She is very uncomfortable. Please review and advise. Nanci Boyd MA * Telephone Encounter - Talia Parks LPN - 12/03/2022 3:24 PM EDT Patient called in stating that she has had increasing pain and itching for 1 week. Patient rates pain 8/10 on pain scale and describes it as sharp. Please advise on next steps. Talia Parks LPN documented in this encounterNew[facility]10-11-2023 Miscellaneous Notes* Telephone Encounter - Aurora Aparicio RPh - 12/04/2022 3:59 PM EDT Care Transition Back to PCP Our mutual patient, Meggan Arita, who was referred to primary care pharmacy services for Diabetes management, has achieved adequate control during their care with us. . We will not be schedulingfurther follow up with pharmacy at this time. They have been encouraged to follow up with you for ongoing management. As always, you may refer Meggan Arita back to pharmacy for management in thefuture. Next PCP team appointment: 12/17/22 Thank you for utilizing primary care pharmacy services. Aurora Aparicio, PharmD, BCACP Primary Care Clinical Pharmacist documented in this encounterNew[facility]10-05-2023 History of Present illness Narrative* Elke Son - 11/28/2022 10:00 AM EDT Primary Care Pharmacy Visit CC (Reason for Consult): (E11.9) Type 2 diabetes (HCC) (primary encounter diagnosis) Goal(s): A1C < 8% Last Collaborating Provider Visit: 11/05/2022 Meggan Arita is a 61 year old female presenting for follow up visit by telephone. Patient consents to pharmacy collaborative practice agreement. . At last visit with pharmacy on 10/25/2022 the following changes were made: Trulicity increased to 1.5mg once weekly and consult was made to nutritiontherapy. HPI: Patient states she has had 2 injections of the Trulicity 3mg with the third injection this week andis doing well. Feels she is doing well on her Trulicity with no diarrhea Patient believes her antibiotic (macrobid) is giving her upset stomach Patient has noticed a decrease in appetite and portion sizes Getting headaches when she wakes up Blood sugars at the time are between 110-120 No reported hypoglycemia; lowest are in the 90s Feels like she is retaining water in her upper thighs for the past week Has not checked weight in a while Patient started on Wellbutrin Does not think it is helping her mood yet Patient is doing PT twice weekly and states she is doing well Past medical history reviewed. ALLERGIES Allergen Reactions Ciprofloxacin Diarrhea Nausea and diarrhea Mounjaro [Tirzepati* Diarrhea, Vomiting Hospitalized with dehydration and acute kidney injury. Did tolerate Trulicity Buspar [Buspirone H* Other: See Comments Insomnia Carafate [Sucralfat* tightens up chest unable to swallow Celebrex [Celecoxib] Other: See Comments tachycardia, heart palpitations Cheratussin Itching Codeine GI Upset sick to her stomach but able to tolerate in Tylenol with codeine #3 Doxycycline Intolerance, Vomiting Iodine difficulty breathing, swelling, hives Latex difficulty breathing and swelling Levaquin [Levofloxa* GI Upset Meloxicam Rash pruritic rash within hours of taking med Penicillins Swelling, Shortness of Breath Prednisone Mental Status Change Vicodin [Hydrocodon* Itching swelling Current Outpatient Medications Medication Sig Dispense Refill nitrofurantoin monohydrate and macrocrystal (MACROBID) 100 mg capsule Take 1 capsule by mouth two times a day with meals for 7 days. 14 capsule 0 blood sugar diagnostic (BLOOD GLUCOSE TEST) test strip Test blood sugar(s) 4 times daily. Dx: Type 2 DM - Controlled E11.9 Insulin: No 50 Strip 11 ascorbic acid, vitamin C, (VITAMIN C) 500 mg tablet Take 1 tablet by mouth once daily. 90 tablet 1 Zinc Acetate, Oral, 25 mg (zinc) cap Take 1 capsule by mouth once daily. 90 capsule 1 blood sugar diagnostic (RELION PRIME TEST STRIPS) test strip Test glucose 4 x per day. Dx: E11.9. Insulin use: no 50 Strip 0 dulaglutide (TRULICITY) 3 mg/0.5 mL pen injector Inject 3 mg subcutaneously one time a week. 4 Each2 Cholecalciferol, Vitamin D3, 50 mcg (2,000 unit) cap Take 1 capsule by mouth once daily. 90 capsule2 montelukast (SINGULAIR) 10 mg tablet Take 1 tablet by mouth daily at bedtime. 30 tablet 11 buPROPion XL (WELLBUTRIN XL) 150 mg 24 hr tablet Take 1 tablet by mouth once daily. 30 tablet 2 LORazepam (ATIVAN) 1 mg tablet Take 0.5-1 tablets by mouth once daily as needed for anxiety for up to 30 days. 30 tablet 0 Chlorhexidine Gluconate (PERIDEX) 0.12 % solution Use 15 mL as instructed twice daily. Rinse aroundmouth for 30 seconds then expectorate (spit out). [address] (PROTONIX) 40 mg tablet Take 1 tablet by mouth once daily. 90 tablet 3 losartan (COZAAR) 100 mg tablet Take 1 tablet by mouth once daily. 90 tablet 3 albuterol (PROVENTIL) 2.5 mg /3 mL (0.083 %) nebulizer solution inhale contents of one vial in nebulizer every 6 hours if needed for wheezing and shortness of breath 300 mL 5 ipratropium (ATROVENT) 0.02 % nebulizer solution Use 2.5 mL via nebulizer four times daily as needed (wheezing). Use over 5-15minutes. Use in addition to albuterol nebulizer. 250 mL 5 potassium chloride ER (KLOR-CON) 20 mEq tablet Take 1 tablet by mouth twice daily. As directed 60 tablet 2 furosemide (LASIX) 20 mg tablet Take 1-2 tablets by mouth once daily as needed (edema/fluid retention). 60 tablet 2 dicyclomine (BENTYL) 10 mg capsule Take 1 capsule by mouth three times daily. nystatin (MYCOSTATIN) powder Apply 1 application to affected area four times daily. 60 g 11 Blood Pressure Test Kit-Large (QUICK RESPONSE BP MONITOR) Check blood pressure daily or as needed. I10 Hypertension 1 Each 0 Diaper,Brief, Adult,Disposable (DISPOSABLE BRIEF) Bariatric Briefs - Prevail #10 (thickest brief). 5 per day. 150 Each 1 diphenoxylate-atropine (LOMOTIL) 2.5-0.025 mg per tablet Take 1 tablet by mouth four times daily asneeded for diarrhea for up to 7 days. 28 tablet 0 ferrous sulfate (IRON ORAL) Take by mouth. WALKER ROLLATOR SEAT WITH 6" WHEELS - RED Diagnosis: Unsteady gait, primary osteoarthritis both knees, decreased mobility 1 Each 0 cyclobenzaprine (FLEXERIL) 5 mg tablet Take 1 tablet by mouth three times daily as needed. 90 tablet 1 venlafaxine ER (EFFEXOR XR) 75 mg 24 hr capsule Take 1 capsule by mouth once daily. 90 capsule 3 flash glucose sensor (FREESTYLE SHAKIRA 2 SENSOR) kit Apply new sensor every fourteen (14) days to upper arm. 6 Each 4 fluticasone (FLONASE) 50 mcg/actuation nasal spray Use 2 Sprays in each nostril once daily as needed. 3 Each 3 insulin needles, DISPOSABLE, (BD INSULIN PEN NEEDLE UF) 31 gauge x 5/16" USE 6 DAILY DIRECTED with Eriberto and Byetta 150 Each 5 blood sugar diagnostic (BLOOD GLUCOSE TEST) test strip Test blood sugar(s) four times daily. Dx: Type 2 DM - Controlled E11.9 Insulin: No 150 Strip 11 Lancets lancets Test blood sugar(s) 4 times daily. Dx: Type 2 DM - Controlled E11.9 Insulin: No 200Each 11 ketoconazole (NIZORAL) 2 % cream apply to affected area OF RASH AND SURROUNDING AREA UNDER BREAST once daily 60 g 2 bismuth subsalicylate (PEPTO-BISMOL) 262 mg chew Take 2 tablets by mouth four times daily. 112 tablet 0 docusate sodium (COLACE) 100 mg capsule Take 2 capsules by mouth DAILY AT 6 PM. 60 capsule 4 CPAP AutoPAP 5-12 CM H2O with humidification. Mask (per patient preference) optional chin strap (ifindicated) , filters, tubing, humidifier and lifetime supplies. 1 Device 0 Miscellaneous Medical Supply Order: Overnight pulse ox on 4LPM Diagnosis: R09.02 (checking if needsO2 increased at night) 1 Each 0 Blood-Glucose Meter (FREESTYLE FREEDOM LITE) monitoring kit 1 Each as needed. 1 Each 0 polyethylene glycol 3350 (MIRALAX) 17 gram/dose powder 2 scoop in liquid daily as needed for bowel movement 1 Bottle 11 COMPOUNDED PRESCRIPTION TENS Unit 4 lead. Use as directed. Needs refills for leads 1 per month as needed Dispense 1 with 5 refills. (M48.06) Spinal stenosis, lumbar region, without neurogenic claudication 1 Each 0 Nebulizer NEBULIZER FOR HOME USE. DX: (J45.20) Mild intermittent asthma without complication 1 Device 0 Current Facility-Administered Medications Medication Dose Route Frequency Provider Last Rate Last Admin perflutren lipid microspheres 1.3 mL in NaCl (PF) 0.9% 10 mL injection (DEFINITY) INTRAVENOUS DIRECTED PRN Daphne Araujo APRN.[employer] sodium chloride 0.9 % (flush) 10 mL (BD POSIFLUSH) 10 mL INTRAVENOUS DIRECTED PRN Oz Araujo APRN.[employer] EXAM: LMP 02/11/2011 Last 3 Encounter BP Readings: Date: BP: 11/05/2022 148/86 09/02/2022 122/53 08/21/2022 144/82 Wt: 330 lb (149.7 kg) BMI: 50.18 kg/(m^2) LABS: Lab Results Component Value Date HBA1C 4.9 11/05/2022 HBA1C 4.7 08/30/2022 HBA1C 5.3 02/27/2022 HBA1C 7.4 07/07/2021 HBA1C 6.9 09/05/2020 HBA1C 6.7 03/28/2020 HBA1C 8.4 11/06/2019 Glucose 84 11/05/2022 BUN 25 11/05/2022 Creatinine, Whole Blood (iSTAT) 1.20 11/05/2022 Sodium 140 11/05/2022 Potassium 4.6 11/05/2022 Chloride 104 11/05/2022 CO2 26 11/05/2022 Protein, Total 8.0 11/05/2022 Albumin 3.8 11/05/2022 Calcium 9.3 11/05/2022 Alkaline Phosphatase 100 11/05/2022 Bilirubin, Total 0.5 11/05/2022 AST 13 11/05/2022 ALT 10 11/05/2022 Lab Results Component Value Date CHOL 155 11/05/2022 CHOL 119 03/28/2020 LDL 95 11/05/2022 LDL 70 03/28/2020 HDL 51 11/05/2022 HDL 37 03/28/2020 TG 46 11/05/2022 TG 59 03/28/2020 Albumin/Creat Ratio (mg/g) Date Value 11/06/2019 Not calculated eGFR-All Other Races (.) Date Value 09/05/2020 >60 Estimated Glomerular Filtration Rate (mL/min/1.73m ) Date Value 11/05/2022 51 ASSESSMENT/PLAN: 1. Type 2 diabetes (HCC) - ICD9: 250.00, ICD10: E11.9 - Controlled. A1C goal <8%. Patient A1C at goal. Today, will continue medication therapy to optimize weight loss. - Continue all medications at current doses - Counseled on healthy diet and regular exercise Discussed having meals that are more protein based and less starchy Recommended smaller and more frequent meals Discussed meeting with department manager (referral is in) - Follow up with PCP team on 12/17/2022, sooner should any other issues arise. - Will discharge from pharmacy follow up at this time Instructed patient to reach out to PCP for sooner follow up regarding concerns with edema and headache. Elke Son, Driver/Refuse Collector The majority of the pharmacy visit (> 50%) was spent counseling and/or coordinating care for thepatient. interaction: telephonic time was 20 minutes. * Aurora Aparicio RPh - 11/28/2022 10:00 AM EDT I reviewed this patient's case and agree with the assessment and plan above. Signature: Aurora Aparicio RPh documented in this encounterNew[facility] Hospital09-26-2023 Miscellaneous Notes* Telephone Encounter - Treva Cr RN - 11/19/2022 9:01 AM EDT Patient calls and states that she needs a new meter and testing strips. Please send to [facility]. Treva Cr RN documented in this encounterNew[facility]09-25-2023 Miscellaneous Notes* Telephone Encounter - Sridevi Isabel LPN - 11/18/2022 4:24 PM EDT PATIENT NOTIFIED OF SAME. * Telephone Encounter - Silvestre Jain APRN.CNP - 11/18/2022 4:13 PM EDT Script for test strips sent. She should take her trulicity and monitor bp and blood sugar the next few days and update us on how she is feeling prior to the weekend. * Telephone Encounter - Marquez Araya Ma - 11/18/2022 2:21 PM EDT Patient notified, states that they have not had trulicity in stock so has not been taking. Will be picking this up today . Pt also requesting Reli-on test strips to [facility] * Telephone Encounter - Silvestre Jain APRN.CNP - 11/18/2022 1:10 PM EDT I can send in for the zinc and vitamin c. As for the headaches it could be bp related but also has she been checking her sugars? With just recently increasing her Trulicity the headaches could also be related to blood sugars so if she can also monitor those it would be helpful in deciding if this is more bp vs blood sugar causing the headache. * Telephone Encounter - Treva Cr RN - 11/18/2022 11:23 AM EDT Patient calls and states at last appointment she had thought provider had wanted her to start taking vitamin C and Zinc. Patient is confused because a [facility] Patient asking if provider wants her to take medication and if she does asking if prescription can be sent to pharmacy? Patient also reports that systolic blood pressure has been 155-158 with diastolic being 88. Heart rate has been anywhere in the 70s/80s. Patient states that she had a slight headache off and on all weekend long. Patient asking if she should be concerned about blood pressure? Please review and advise, Treva Cr RN documented in this encounterNew[facility] Hospital09-22-2023 Miscellaneous Notes* Telephone Encounter - Sridevi Isabel LPN - 11/15/2022 2:10 PM EDT PATIENT NOTIFIED OF SAME. * Telephone Encounter - Silvestre Jain APRN.CNP - 11/15/2022 12:52 PM EDT Yes, if tolerating the Trulicity we can increase, I sent in the next dose which is the 3 mg weekly dose. * Telephone Encounter - Gregoria Lind - 11/15/2022 12:28 PM EDT Pt called back to request an update on her medication she had called about on 11/13/22. She would like this done as soon as possible. Pt would like a call when you receive the message please. Thank you! * Telephone Encounter - Sridevi Isabel LPN - 11/13/2022 10:59 AM EDT Patient called in requesting either an increase dose of Trulicity or add a low dose of Metformin. She feels that the dose of Trulicity is not working as she has gained about 15- 17 lbs back. Today's blood sugar reading was 163. Lowest reading 128 with some dizziness. Drank some OJ and dizziness did improve. Patient states currently she does not have diarrhea that her stools are normal. documented in this encounterNewark Hospital09-19-2023 History of Present illness Narrative* John Caldwell MD - 11/12/2022 2:53 PM EDT Encounter Diagnosis ICD-10-CM 1. 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 H04.223 2. Pseudophakia Z96.1 3. Senile nuclear cataract, right H25.11 Patient complaint is bilateral tearing requiring the use of Kleenex throughout the day Symptoms proceeded cataract surgery and been going on for at least several months Minimal surface staining OU Tear [place] may be mildly elevated but not severely Some nasal conjunctivochalasis may be functionally obstructing lower punctum Offer option of punctal probing and irrigation-patient to consider, unsure if she would proceed with surgery if any nasolacrimal duct obstruction is identified Would like to reassess in 3 months, discussed option to assess sooner if patient's symptoms dictate Status post PCIOL OS-happy with result Mild cataract OD-offer option of surgery when symptoms warrant Otherwise can follow-up in 1 year next visit mrx iop dfe ou I have confirmed and edited as necessary the relevant ophthalmic history, ROS, and the neuro exam findings as obtained by others. I have seen and examined this patient. I have discussed the case and the management of this patient's care with the Resident/Fellow, if applicable. I also have reviewed and agree with the assessment and plan as stated above and agree with all of its relevant components. John Caldwell MD documented in this encounterNewark Hospital09-12-2023 History of Present illness Narrative* Silvestre Jain APRN.NIKKY - 11/05/2022 11:46 AM EDT SUBJECTIVE Meggan Arita is a 61 year old female here today for a check up on her medical problems. Chief Complaint Patient presents with: Recheck HPI Megganlinus Arita is a 61 year old female. Presents today for follow up, accompanied by her son. Issues with allergies right now. Watery eyes. Runny nose. No cough, chest pain, chest tightness or shortness of breath. Seeing Keti for pharmD. Sugars are doing good. Running 130-140. Trulicity has not been effecting appetite as much. Sleeping good. Mood not great. Noticing some more depression/anxiety. Needs a new PT order. Her medications were reviewed today and her list is now up to date. Medications Current Outpatient Medications Medication Sig LORazepam (ATIVAN) 1 mg tablet Take 0.5-1 tablets by mouth once daily as needed for anxiety for up to 30 days. dulaglutide (TRULICITY) 1.5 mg/0.5 mL pen injector Inject 1.5 mg subcutaneously one time a week. Chlorhexidine Gluconate (PERIDEX) 0.12 % solution Use 15 mL as instructed twice daily. Rinse aroundmouth for 30 seconds then expectorate (spit out). pantoprazole DR (PROTONIX) 40 mg tablet Take 1 tablet by mouth once daily. losartan (COZAAR) 100 mg tablet Take 1 tablet by mouth once daily. albuterol (PROVENTIL) 2.5 mg /3 mL (0.083 %) nebulizer solution inhale contents of one vial in nebulizer every 6 hours if needed for wheezing and shortness of breath ipratropium (ATROVENT) 0.02 % nebulizer solution Use 2.5 mL via nebulizer four times daily as needed (wheezing). Use over 5-15minutes. Use in addition to albuterol nebulizer. potassium chloride ER (KLOR-CON) 20 mEq tablet Take 1 tablet by mouth twice daily. As directed furosemide (LASIX) 20 mg tablet Take 1-2 tablets by mouth once daily as needed (edema/fluid retention). dicyclomine (BENTYL) 10 mg capsule Take 1 capsule by mouth three times daily. nystatin (MYCOSTATIN) powder Apply 1 application to affected area four times daily. diphenoxylate-atropine (LOMOTIL) 2.5-0.025 mg per tablet Take 1 tablet by mouth four times daily asneeded for diarrhea for up to 7 days. ferrous sulfate (IRON ORAL) Take by mouth. cyclobenzaprine (FLEXERIL) 5 mg tablet Take 1 tablet by mouth three times daily as needed. venlafaxine ER (EFFEXOR XR) 75 mg 24 hr capsule Take 1 capsule by mouth once daily. fluticasone (FLONASE) 50 mcg/actuation nasal spray Use 2 Sprays in each nostril once daily as needed. ketoconazole (NIZORAL) 2 % cream apply to affected area OF RASH AND SURROUNDING AREA UNDER BREAST once daily bismuth subsalicylate (PEPTO-BISMOL) 262 mg chew Take 2 tablets by mouth four times daily. docusate sodium (COLACE) 100 mg capsule Take 2 capsules by mouth DAILY AT 6 PM. polyethylene glycol 3350 (MIRALAX) 17 gram/dose powder 2 scoop in liquid daily as needed for bowel movement montelukast (SINGULAIR) 10 mg tablet Take 1 tablet by mouth daily at bedtime. buPROPion XL (WELLBUTRIN XL) 150 mg 24 hr tablet Take 1 tablet by mouth once daily. Blood Pressure Test Kit-Large (QUICK RESPONSE BP MONITOR) Check blood pressure daily or as needed. I10 Hypertension Diaper,Brief, Adult,Disposable (DISPOSABLE BRIEF) Bariatric Briefs - Prevail #10 (thickest brief). 5 per day. WALKER ROLLATOR SEAT WITH 6" WHEELS - RED Diagnosis: Unsteady gait, primary osteoarthritis both knees, decreased mobility flash glucose sensor (FREESTYLE SHAKIRA 2 SENSOR) kit Apply new sensor every fourteen (14) days to upper arm. insulin needles, DISPOSABLE, (BD INSULIN PEN NEEDLE UF) 31 gauge x 5/16" USE 6 DAILY DIRECTED with Toujeo and Humalog and Byetta blood sugar diagnostic (BLOOD GLUCOSE TEST) test strip Test blood sugar(s) four times daily. Dx: Type 2 DM - Controlled E11.9 Insulin: No Lancets lancets Test blood sugar(s) 4 times daily. Dx: Type 2 DM - Controlled E11.9 Insulin: No CPAP AutoPAP 5-12 CM H2O with humidification. Mask (per patient preference) optional chin strap (ifindicated) , filters, tubing, humidifier and lifetime supplies. Miscellaneous Medical Supply Order: Overnight pulse ox on 4LPM Diagnosis: R09.02 (checking if needsO2 increased at night) Blood-Glucose Meter (FREESTYLE FREEDOM LITE) monitoring kit 1 Each as needed. COMPOUNDED PRESCRIPTION TENS Unit 4 lead. Use as directed. Needs refills for leads 1 per month as needed Dispense 1 with 5 refills. (M48.06) Spinal stenosis, lumbar region, without neurogenic claudication Nebulizer NEBULIZER FOR HOME USE. DX: (J45.20) Mild intermittent asthma without complication Current Facility-Administered Medications Medication Dose Route Frequency perflutren lipid microspheres 1.3 mL in NaCl (PF) 0.9% 10 mL injection (DEFINITY) INTRAVENOUS DIRECTED PRN sodium chloride 0.9 % (flush) 10 mL (BD POSIFLUSH) 10 mL INTRAVENOUS DIRECTED PRN ALLERGIES Allergen Reactions Ciprofloxacin Diarrhea Nausea and diarrhea Mounjaro [Tirzepati* Diarrhea, Vomiting Hospitalized with dehydration and acute kidney injury. Did tolerate Trulicity Buspar [Buspirone H* Other: See Comments Insomnia Carafate [Sucralfat* tightens up chest unable to swallow Celebrex [Celecoxib] Other: See Comments tachycardia, heart palpitations Cheratussin Itching Codeine GI Upset sick to her stomach but able to tolerate in Tylenol with codeine #3 Doxycycline Intolerance, Vomiting Iodine difficulty breathing, swelling, hives Latex difficulty breathing and swelling Levaquin [Levofloxa* GI Upset Meloxicam Rash pruritic rash within hours of taking med Penicillins Swelling, Shortness of Breath Prednisone Mental Status Change Vicodin [Hydrocodon* Itching swelling ACTIVE PROBLEM LIST Mixed Hyperlipidemia - 08/07/2022 Stage 3 Chronic Kidney Disease (Hcc) - 08/07/2022 Ulcer of Left Lower Extremity, Limited to Breakdown of Skin ([facility]) - 02/20/2022 Comment: Large wound medial thigh; also 2 smaller ones (medial and lateral thigh) Bilateral Leg Edema - 02/20/2022 Comment: Not needing as much Lasix as before; would take metolazone before Lasix as before for prn use Primary Osteoarthritis of Both Knees - 03/08/2020 Comment: severe narrowing of the medial joint space with marginal osteophytes--x-ray knee 2016 Depression - 01/24/2016 Type 2 Diabetes ([facility]) - 09/01/2014 Bmi 60.0-69.9, Adult ([facility]) - 06/30/2014 Pulmonary Hypertension ([facility]) - 04/23/2013 Allergic Rhinitis - 07/15/2007 Spinal Stenosis, Lumbar Region, Without Neurogenic Claudication - 07/09/2007 Comment: not sure where this diagnosis came from since no prior MRI or CT scan with mention of this diagnosis Edema - 06/01/2007 Comment: Admit 07-08-08 for RLE venous stasis ulcer on Cubicin. Put pt on disability from 08-03-08 to 11-24-08 Iron Deficiency Anemia, Unspecified - 01/20/2007 Comment: Colon 03-22-02 ([facility]): no polyps, masses or AVMs Anxiety State - 12/09/2006 Generalized Osteoarthrosis, Unspecified Site - 10/29/2006 Esophageal Reflux - 03/16/2005 Comment: EGD in 06-30: no evidence of esophagitis but there is gastritis (H pylori was negative) Chronic Hepatitis, Unspecified (Hcc) - 03/06/2005 Comment: Liver biopsy w/ cholecystectomy Hypertension Comment: Echo at [place] 01-25: LVH, mild TR, LAE, RVE, PASP 38 (mild), no EF documented per Seese Seese 01-07-03: consider GERD for atyp CP, not cath candidate from obesity, doubt cardiac source ECG 03-30: NSR with PVC, lat T flattening, no ischemia/injury (ECG NL in 10-27 at [place]) Rec for Dobut Echo in 05-28 per Seese (Darshan) prior to rec gastric bypass (Study 07-21-03 was NL) Admit for BRYAN in 09-29: rec Cardizem and Lopressor after negative enzymes, outpt stress Dobut Echo 11-18-05: 80% APMHR, No RWMA, NL but limited by not achieving APMHR LDL 96, HDL 45, TG 45 in 01-01 Restarted K supplements for K of 3.3 in 08-01 as pt on Lasix Order placed for Holter in 04-04 after ED visit for palpitations Metoprolol to 100 mg bid in 04-04 for BP and palpitations Holter 04-04: no AF, VT but pt with 7 sec pause Metop changed to Hydralazine and HCTZ as inpt in 04-04 with the Holter findings Carotids at [place] in 04-04: 1-15% stenosis bilaterally Obstructive Sleep Apnea Comment: Scheduled sleep study in 11-3012-08-06: sleep time 60 minutes/294 minutes studied, AHI 48, low sat 79%-rec auto-titrating CPAP Trial of an auto-titrating CPAP in 11-30: unable to sleep long enough for diagnosis Phoned pt at work 12-24-06 to call about scheduling auto Asthma Social History Tobacco Use Smoking status: Never Smokeless tobacco: Never Tobacco comments: Father smoked in childhood home . ETS exposure in current home. Vaping Use Vaping Use: Never used Substance Use Topics Alcohol use: No Drug use: No Review of Systems HENT: Positive for postnasal drip and rhinorrhea. Respiratory: Negative for cough, choking, chest tightness, shortness of breath, wheezing and stridor. Cardiovascular: Negative. OBJECTIVE BP 148/86 Pulse 74 SpO2 97% LMP 02/11/2011 Physical Exam Vitals and nursing note reviewed. Constitutional: General: She is awake. She is not in acute distress. Appearance: Normal appearance. She is well-developed and well-groomed. She is obese. She is not ill-appearing, toxic-appearing or diaphoretic. HENT: Head: Normocephalic. Right Ear: External ear normal. Left Ear: External ear normal. Nose: Nose normal. Eyes: General: Vision grossly intact. Conjunctiva/sclera: Conjunctivae normal. Pupils: Pupils are equal, round, and reactive to light. Neck: Vascular: No JVD. Trachea: Trachea normal. Cardiovascular: Rate and Rhythm: Normal rate and regular rhythm. Pulses: Normal pulses. Heart sounds: Normal heart sounds. No murmur heard. Pulmonary: Effort: Pulmonary effort is normal. No accessory muscle usage, prolonged expiration or respiratory distress. Breath sounds: Normal breath sounds. Musculoskeletal: Cervical back: Neck supple. Skin: General: Skin is warm and dry. Capillary Refill: Capillary refill takes less than 2 seconds. Neurological: General: No focal deficit present. Mental Status: She is alert and oriented to person, place, and time. Mental status is at baseline. Psychiatric: Attention and Perception: Attention and perception normal. Mood and Affect: Mood and affect normal. Speech: Speech normal. Behavior: Behavior normal. Behavior is cooperative. Thought Content: Thought content normal. Cognition and Memory: Cognition and memory normal. Judgment: Judgment normal. ASSESSMENT/PLAN: 1. Allergic rhinitis, unspecified seasonality, unspecified trigger - ICD9: 477.9, ICD10: J30.9 (primary diagnosis) Restart Singulair. - MONTELUKAST 10 MG TABLET 2. Reactive depression - ICD9: 300.4, ICD10: F32.9 Add Wellbutrin, this may also help with appetite. - BUPROPION XL 150 MG TAB 3. Primary hypertension - ICD9: 401.9, ICD10: I10 - Controlled - Continue current medications - Recommend home blood pressure monitoring, to bring results to next visit - Encouraged sodium restriction, DASH or Mediterranean diet - Recommend regular aerobic exercise 4. Mixed hyperlipidemia - ICD9: 272.2, ICD10: E78.2 - Control undetermined, due for labs - Continue current medications - Counseled on healthy diet and regular exercise - LIPID PANEL BASIC 5. Decreased mobility - ICD9: 781.99, ICD10: R26.89 - CONSULT TO PHYSICAL THERAPY 6. Morbid obesity (HCC) - ICD9: 278.01, ICD10: E66.01 - TSH BLD 7. Iron deficiency anemia, unspecified iron deficiency anemia type - ICD9: 280.9, ICD10: D50.9 - CBC + DIFF - IRON + TIBC - FERRITIN BLD 8. Encounter for immunization - ICD9: V03.89, ICD10: Z23 - PNEUMOCOCCAL VACCINE (PREVNAR 20) - INFLUENZA VACCINE, AGE 6 MO - 64 YR, QUADRIVALENT (AFLURIA, FLULAVAL, FLUZONE) 9. Encounter for therapeutic drug monitoring - ICD9: V58.83, ICD10: Z51.81 - CBC + DIFF - IRON + TIBC - COMP METABOLIC PANEL - VITAMIN D 25 HYDROXY - TSH BLD - HGB A1C - MAGNESIUM BLD - FERRITIN BLD - LIPID PANEL BASIC Portions of this note have been entered by ancillary staff. I have reviewed and when necessary edited, so that they are an adequate record of my encounter with this patient Please note that parts of this document were created using voice recognition software and therefore may contain grammatical errors. Patient verbalizes understanding of instructions from today's visit and in agreement with treatmentplan. Questions answered. Agrees to call the office if questions, concerns of issues with acute symptoms not improving or if they worsen. See diagnoses and orders for additional plan(s). Allergies and medications were reviewed, list was updated, and refills given if needed. Past medical, surgical, social, and family history reviewed and updated as appropriate. Encouraged proper diet & exercise as well as compliance with taking medications. Age- appropriate health preventative measures were discussed. Return in about 6 weeks (around 12/17/2022) for recheck on new medication.. Silvestre Jain APRN-NIKKY documented in this encounterNew[facility]09-08-2023 Miscellaneous Notes* Telephone Encounter - Anh Hazel LPN - 11/01/2022 2:33 PM EDT Patient has been identified by name and date of : Patient phones for refill(s): Requested Prescriptions Pending Prescriptions Disp Refills LORazepam (ATIVAN) 1 mg tablet 30 tablet 0 Sig: Take 0.5-1 tablets by mouth once daily as needed for anxiety for up to 30 days. Date of last office visit in primary care: 08/21/2022, has appt 11/05/2022 Last 2 Encounter Wt Readings: Date: Wt: 08/21/2022 149.7 kg (330 lb) 08/12/2022 153.8 kg (339 lb) Previous labs/tests for medication: Not applicable Please advise. Thank you. Anh Hazel LPN documented in this encounterNewark [facility]09-01-2023 History of Present illness Narrative* Aurora Aparicio RP - 10/25/2022 10:30 AM EDT Primary Care Pharmacy Visit CC (Reason for Consult): (E11.9) Type 2 diabetes (HCC) (primary encounter diagnosis) Goal: A1c<8% Last Collaborating Physician Visit: 08/21/22 Meggan Arita is a 61 year old female presenting for follow up visit by telephone. Patient consents to pharmacy collaborative practice agreement. . At last visit with pharmacy on 09/06/22 the following changes were made: none HPI: Feels the Trulicity low dose is not doing anything Does not curb her appetite and is starting to gain weight Getting extreme cravings at night time after dinner Will often snack during this time Tries to incorporate protein at dinner but meals tend to be more processed foods, potato chips In the past has had GI symptoms on other medications in the class, typically diarrhea, worse when having greasy fried foods GLYCEMIC CONTROL: SMBGS (Fingersticks) Date Fasting AM 2 hr PP Before Lunch 2 hr PP Before Dinner 2 hr PP Bedtime 10/20 130 150 145 130 146 10/21 110 138 140 130 162 10/22 100 130 128 140 130 148 10/23 110 128 114 116 96 123 10/24 110 126 113 145 126 148 10/25 114 128 130 142 160 Past medical history reviewed. MEDICATIONS: Adherence: denies missed doses ALLERGIES Allergen Reactions Ciprofloxacin Diarrhea Nausea and diarrhea Mounjaro [Tirzepati* Diarrhea, Vomiting Hospitalized with dehydration and acute kidney injury. Did tolerate Trulicity Buspar [Buspirone H* Other: See Comments Insomnia Carafate [Sucralfat* tightens up chest unable to swallow Celebrex [Celecoxib] Other: See Comments tachycardia, heart palpitations Cheratussin Itching Codeine GI Upset sick to her stomach but able to tolerate in Tylenol with codeine #3 Doxycycline Intolerance, Vomiting Iodine difficulty breathing, swelling, hives Latex difficulty breathing and swelling Levaquin [Levofloxa* GI Upset Meloxicam Rash pruritic rash within hours of taking med Penicillins Swelling, Shortness of Breath Prednisone Mental Status Change Vicodin [Hydrocodon* Itching swelling Current Outpatient Medications Medication Sig Dispense Refill Chlorhexidine Gluconate (PERIDEX) 0.12 % solution Use 15 mL as instructed twice daily. Rinse aroundmouth for 30 seconds then expectorate (spit out). 118 mL 0 dulaglutide (TRULICITY) 0.75 mg/0.5 mL pen injector Inject 0.75 mg subcutaneously one time a week. [address] (PROTONIX) 40 mg tablet Take 1 tablet by mouth once daily. 90 tablet 3 losartan (COZAAR) 100 mg tablet Take 1 tablet by mouth once daily. 90 tablet 3 albuterol (PROVENTIL) 2.5 mg /3 mL (0.083 %) nebulizer solution inhale contents of one vial in nebulizer every 6 hours if needed for wheezing and shortness of breath 300 mL 5 ipratropium (ATROVENT) 0.02 % nebulizer solution Use 2.5 mL via nebulizer four times daily as needed (wheezing). Use over 5-15minutes. Use in addition to albuterol nebulizer. 250 mL 5 LORazepam (ATIVAN) 1 mg tablet Take 0.5-1 tablets by mouth once daily as needed for anxiety for up to 30 days. 30 tablet 0 prednisoLONE acetate (PRED FORTE) 1 % ophthalmic suspension Use 1 Drop in the left eye four times daily. 10 mL 0 potassium chloride ER (KLOR-CON) 20 mEq tablet Take 1 tablet by mouth twice daily. As directed 60 tablet 2 furosemide (LASIX) 20 mg tablet Take 1-2 tablets by mouth once daily as needed (edema/fluid retention). 60 tablet 2 benzonatate (TESSALON PERLES) 100 mg capsule Take 1 capsule by mouth three times daily as needed for cough. 30 capsule 1 dicyclomine (BENTYL) 10 mg capsule Take 1 capsule by mouth three times daily. nystatin (MYCOSTATIN) powder Apply 1 application to affected area four times daily. 60 g 11 loratadine (CLARITIN) 10 mg tablet Take 1 tablet by mouth once daily. Blood Pressure Test Kit-Large (QUICK RESPONSE BP MONITOR) Check blood pressure daily or as needed. I10 Hypertension 1 Each 0 Diaper,Brief, Adult,Disposable (DISPOSABLE BRIEF) Bariatric Briefs - Prevail #10 (thickest brief). 5 per day. 150 Each 1 diphenoxylate-atropine (LOMOTIL) 2.5-0.025 mg per tablet Take 1 tablet by mouth four times daily asneeded for diarrhea for up to 7 days. 28 tablet 0 ferrous sulfate (IRON ORAL) Take by mouth. WALKER ROLLATOR SEAT WITH 6" WHEELS - RED Diagnosis: Unsteady gait, primary osteoarthritis both knees, decreased mobility 1 Each 0 cyclobenzaprine (FLEXERIL) 5 mg tablet Take 1 tablet by mouth three times daily as needed. 90 tablet 1 venlafaxine ER (EFFEXOR XR) 75 mg 24 hr capsule Take 1 capsule by mouth once daily. 90 capsule 3 flash glucose sensor (FREESTYLE SHAKIRA 2 SENSOR) kit Apply new sensor every fourteen (14) days to upper arm. 6 Each 4 atorvastatin (LIPITOR) 40 mg tablet Take 1 tablet by mouth once daily. 30 tablet 11 fluticasone (FLONASE) 50 mcg/actuation nasal spray Use 2 Sprays in each nostril once daily as needed. 3 Each 3 insulin needles, DISPOSABLE, (BD INSULIN PEN NEEDLE UF) 31 gauge x 5/16" USE 6 DAILY DIRECTED with Toujeo and Humalog and Byetta 150 Each 5 blood sugar diagnostic (BLOOD GLUCOSE TEST) test strip Test blood sugar(s) four times daily. Dx: Type 2 DM - Controlled E11.9 Insulin: No 150 Strip 11 Lancets lancets Test blood sugar(s) 4 times daily. Dx: Type 2 DM - Controlled E11.9 Insulin: No 200Each 11 montelukast (SINGULAIR) 10 mg tablet Take 1 tablet by mouth daily at bedtime. 30 tablet 11 mupirocin (BACTROBAN) 2 % cream Use up to three times a day. Location: left inner thigh 45 g 1 mometasone-formoterol (DULERA) 200-5 mcg/actuation inhaler Inhale 2 Puffs as instructed twice daily. 1 Inhaler 11 ketoconazole (NIZORAL) 2 % cream apply to affected area OF RASH AND SURROUNDING AREA UNDER BREAST once daily 60 g 2 bismuth subsalicylate (PEPTO-BISMOL) 262 mg chew Take 2 tablets by mouth four times daily. 112 tablet 0 docusate sodium (COLACE) 100 mg capsule Take 2 capsules by mouth DAILY AT 6 PM. 60 capsule 4 CPAP AutoPAP 5-12 CM H2O with humidification. Mask (per patient preference) optional chin strap (ifindicated) , filters, tubing, humidifier and lifetime supplies. 1 Device 0 Miscellaneous Medical Supply Order: Overnight pulse ox on 4LPM Diagnosis: R09.02 (checking if needsO2 increased at night) 1 Each 0 Blood-Glucose Meter (FREESTYLE FREEDOM LITE) monitoring kit 1 Each as needed. 1 Each 0 polyethylene glycol 3350 (MIRALAX) 17 gram/dose powder 2 scoop in liquid daily as needed for bowel movement 1 Bottle 11 COMPOUNDED PRESCRIPTION TENS Unit 4 lead. Use as directed. Needs refills for leads 1 per month as needed Dispense 1 with 5 refills. (M48.06) Spinal stenosis, lumbar region, without neurogenic claudication 1 Each 0 Nebulizer NEBULIZER FOR HOME USE. DX: (J45.20) Mild intermittent asthma without complication 1 Device 0 Current Facility-Administered Medications Medication Dose Route Frequency Provider Last Rate Last Admin perflutren lipid microspheres 1.3 mL in NaCl (PF) 0.9% 10 mL injection (DEFINITY) INTRAVENOUS DIRECTED PRN Daphne Araujo APRN.CNP sodium chloride 0.9 % (flush) 10 mL (BD POSIFLUSH) 10 mL INTRAVENOUS DIRECTED PRN Oz Araujo APRN.CNP EXAM: LMP 02/11/2011 Last 3 Encounter BP Readings: Date: BP: 09/02/2022 122/53 08/21/2022 144/82 08/12/2022 136/83 Wt: 149.7 kg (330 lb) BMI: 50.18 kg/(m^2) LABS: reviewed Lab Results Component Value Date HBA1C 4.7 08/30/2022 HBA1C 5.3 02/27/2022 HBA1C 7.4 07/07/2021 HBA1C 7.2 04/30/2021 HBA1C 6.9 09/05/2020 HBA1C 6.7 03/28/2020 HBA1C 8.4 11/06/2019 Glucose 111 08/30/2022 BUN 16 08/30/2022 Creatinine, Whole Blood (iSTAT) 1.06 08/30/2022 Sodium 140 08/30/2022 Potassium 3.5 08/30/2022 Chloride 104 08/30/2022 CO2 30 08/30/2022 Protein, Total 7.9 08/12/2022 Albumin 3.9 08/12/2022 Calcium 8.5 08/30/2022 Alkaline Phosphatase 132 08/12/2022 Bilirubin, Total 0.4 08/12/2022 AST 16 08/12/2022 ALT 13 08/12/2022 Lab Results Component Value Date CHOL 151 04/30/2021 CHOL 119 03/28/2020 LDL 90 04/30/2021 LDL 70 03/28/2020 HDL 50 04/30/2021 HDL 37 03/28/2020 TG 54 04/30/2021 TG 59 03/28/2020 Albumin/Creat Ratio (mg/g) Date Value 11/06/2019 Not calculated eGFR- (no units) Date Value 09/05/2020 >60 ASSESSMENT/PLAN: 1. Type 2 diabetes (HCC) - ICD9: 250.00, ICD10: E11.9 - Controlled. A1c goal <8%. A1c not at goal at last check and very tightly controlled. SMBGs mostly at goal. Patient endorses weight gain and increased appetite and desires dose increase of Trulicity. In the past has had GI upset related to other GLP1 RA regimens. Discussed that highly processed/greasy foods while on GLP1 RA will cause worsening GI symptoms. Will plan to increase Trulicity andreferred to nutrition therapy to work on diet modifications. - Increase dulaglutide (Trulicity) 1.5 mg once weekly - CONSULT TO NUTRITION THERAPY - DULAGLUTIDE 1.5 MG/0.5 ML SUBCUTANEOUS PEN INJECTOR Follow up: Pharmacy follow up: 11/28/22 PCP team follow up: 10/29/22 Aurora Aparicio, PharmD, BCACP Primary Care Clinical Pharmacist The majority of the pharmacy visit (> 50%) was spent counseling and/or coordinating care for thepatient. interaction: telephonic time was 20 minutes. documented in this encounterNewark [facility]08-30-2023 History of Present illness Narrative* Tom Bolaños - 10/23/2022 4:35 PM EDT Last seen pcp: 08/21/22 Subjective: Patient presents to clinic c/o painful toenails. They state that the nails are especially painful with shoe gear and pressure. Patient states that nails 1-5 b/l are painful. Has not had her toenails debrided in over one year. Patient admits to being diabetic . Her a1c is better controlled. She is interested in diabetic shoes. No other pedal complaints at this time. Patient states no change in medications or medical history since last visit. Objective: Patient presents to clinic ambulating in slippers Vasc: DP palpable. PT nonpalpable bilateral. CFT is less than 5 seconds bilateral. Skin temperatureis warm to cool proximal to distal bilateral. There is moderate to severe edema or varicosities noted. Neuro: Protective sensation is intact to the foot and toes when tested with the 5.07 SWM bilateral.Vibratory sensation is decreased at the hallux IPJ bilateral. The hallux is downgoing bilateral. Derm: Nails 1-5 b/l are painful, discolored-yellow, thick, crumbly, dystrophic and with subungal debris. Skin is of normal turgor, texture and hair growth is absent bilateral. There are no hyperkeratosis, ulcerations, scars, verruca or other lesions noted. Ortho: Muscle strength is 5/5 for all pedal groups tested. Ankle joint DF is decreased with the knee extended with no pain or crepitus noted. 1st MPJ ROM is decreased bilateral. Hammertoes are present to lesser toes b/l Assessment: (E08.41) Diabetic mononeuropathy associated with diabetes mellitus due to underlying condition (HCC) (M20.40) Hammer toe, unspecified laterality (B35.1) Onychomycosis (M79.675) Pain in toe of left foot (M79.674) Pain in toe of right foot Plan: Patient was seen and evaluated. Nails 1-5 bilateral were debrided in length and thickness. Small bleed to b/l hallux, left 2nd toe. Discussed hammertoes of b/l feet. Recommend wider shoes. Diabetic shoes ordered. She will benefit from a wider shoe because of hammertoe. Patient was instructed on the continued importance of diabetic foot care along with proper diet andkeeping their blood sugar under control to prevent complications. Patient is to RTC in 3-4 months. Tom Bolaños DPM * Nanci Boyd - 10/23/2022 2:34 PM EDT AMB ROOMING INTAKE FLOWSHEET DATA Pain Pain Level: 6 Pain Location: Toe (bilateral great toes) Description: Sore Duration Amount of Time: 4 Duration Units: Weeks Frequency: Intermittent Intervention/Comfort measure: Other: See comment Comments: soak in diluted warm water and Listerine documented in this encounterNewark Hospital08-11-2023 Miscellaneous Notes* Telephone Encounter - Marquez Araya Ma - 10/04/2022 3:56 PM EDT Patient notified, verbalized understanding. * Telephone Encounter - Lydia North APRN.TRANSCRIPTION TYPIST - 10/04/2022 3:32 PM EDT Needs dental appointment as soon as possible. Peridex and cephalexin sent to pharmacy. PCN allergy. * Telephone Encounter - Lexii Fowler RN - 10/04/2022 3:08 PM EDT Triage Protocol Recommended: See provider within 4 hours for evaluation. Pt requesting PCP to advise, no appts available. Thank you. Uses [facility]. Please call patient with advise. Reason for Disposition [1] SEVERE pain (e.g., excruciating, unable to do any normal activities) AND [2] not improved 2 hours after pain medicine Answer Assessment - Initial Assessment Questions Patient calling and states she has a broken bottom right tooth and it may be infected. Reports painand swelling began about 2 days ago. [facility] and that they will notify her of other dentists she can use. Pt states her dentist instructed her to call her PCP for antibiotic until pt can be seen by a dentist. Symptoms: -8 out of 10 pain to broken tooth area, taking tylenol every 4 hours -states there is swelling to her gum area inside of her mouth -denies swelling to face or neck -denies fever, sweats or chills 1. LOCATION: as above 2. ONSET: 2 days ago 3. SEVERITY: severe 4. SWELLING: yes 5. OTHER SYMPTOMS: as above 6. : post menopausal Protocols used: [id number] documented in this encounterNewark Hospital08-02-2023 Miscellaneous Notes* Telephone Encounter - Sridevi Isabel LPN - 09/25/2022 1:26 PM EDT PATIENT NOTIFIED OF SAME. * Telephone Encounter - Silvestre Jain APRN.CNP - 09/25/2022 1:20 PM EDT Ok to have her try Trulicity at the lowest dose, if well tolerated we can increase, if issues with increased/persistent diarrhea then she should stop it and let us know. * Telephone Encounter - Sridevi Isabel LPN - 09/25/2022 12:58 PM EDT Patient notified and asking if there is something else to try. Ozempic she felt it wasn't working but willing to try again. Mounjaro caused severe diarrhea and ended up in hospital due to dehydration. Does not want this at all. She is will to try the Trulicity to see if the diarrhea starts back up. If there is nothing else available. * Telephone Encounter - Silvestre Jain APRN.CNP - 09/25/2022 12:24 PM EDT IT looks like the Trulicity was stopped due to issues with diarrhea while on this and concerns of patient becoming dehydrated. Restarting the medication may cause the diarrhea to occur again. * Telephone Encounter - Deirdre Jacob LPN - 09/25/2022 10:21 AM EDT Pt called back & is asking if she can go back on Trulicity? Pt states she is gaining wt & does not want to put more back on. Pt states she doesn't want her blood sugar to go up. Pt uses [facility] / [place]. Deirdre Jacob LPN * Telephone Encounter - Lexii Fowler RN - 09/24/2022 4:48 PM EDT Patient calling to ask provider if there are any suggestions/medication to "curb her appetite"? Advised pt that this can be discussed at upcoming appt with Dr. Cannon on 10/08, however pt askingfor recommendations sooner than appt, if able. Please advise. Thank you. documented in this encounterNewark Hospital07-31-2023 Miscellaneous Notes* Telephone Encounter - Lexii Fowler RN - 09/23/2022 11:04 AM EDT Patient reports she is switching pharmacies from mail order to local pharmacy. Pt requesting scripts for losartan and pantoprazole be sent to [facility] in [place]. Reports she isout of these medications. Pended for review. Thank you. Requested Prescriptions Pending Prescriptions Disp Refills pantoprazole DR (PROTONIX) 40 mg tablet 90 tablet 3 Sig: Take 1 tablet by mouth once daily. losartan (COZAAR) 100 mg tablet 90 tablet 3 Sig: Take 1 tablet by mouth once daily. Last encounter with this provider: 08/21/2022 Next appt: 10/08/2022 Last 1 Encounter BP Readings: Date: BP: 09/02/2022 122/53 WBC (k/uL) Date Value 08/30/2022 6.97 Hemoglobin (g/dL) Date Value 08/30/2022 10.2 (L) Platelet Count (k/uL) Date Value 08/30/2022 319 Glucose (mg/dL) Date Value 08/30/2022 111 (H) BUN (mg/dL) Date Value 08/30/2022 16 Creatinine (mg/dL) Date Value 08/30/2022 1.06 (H) Sodium (mmol/L) Date Value 08/30/2022 140 Potassium (mmol/L) Date Value 08/30/2022 3.5 (L) Calcium, Total (mg/dL) Date Value 08/30/2022 8.5 Alkaline Phosphatase (U/L) Date Value 08/12/2022 132 (H) Bilirubin, Total (mg/dL) Date Value 08/12/2022 0.4 AST (U/L) Date Value 08/12/2022 16 ALT (U/L) Date Value 08/12/2022 13 Cholesterol, Total (mg/dL) Date Value 04/30/2021 151 Triglyceride (mg/dL) Date Value 04/30/2021 54 TSH (mIU/L) Date Value 08/12/2022 2.070 Lexii Fowler RN documented in this encounterNew[facility]07-31-2023 Miscellaneous Notes* Telephone Encounter - Lili Cummings RN - 09/23/2022 8:31 AM EDT Pt called and is notified of providers message. Pt voices understanding. Lili Cummings RN * Telephone Encounter - Erica Cannon MD - 09/22/2022 12:43 AM EDT The following approved medication requests have been transmitted electronically. Requested Prescriptions Signed Prescriptions Disp Refills albuterol (PROVENTIL) 2.5 mg /3 mL (0.083 %) nebulizer solution 300 mL 5 Sig: inhale contents of one vial in nebulizer every 6 hours if needed for wheezing and shortness ofbreath Authorizing Provider: ERICA CANNON ipratropium (ATROVENT) 0.02 % nebulizer solution 250 mL 5 Sig: Use 2.5 mL via nebulizer four times daily as needed (wheezing). Use over 5- 15minutes. Use in addition to albuterol nebulizer. Authorizing Provider: ERICA CANNON LORazepam (ATIVAN) 1 mg tablet 30 tablet 0 Sig: Take 0.5-1 tablets by mouth once daily as needed for anxiety for up to 30 days. Authorizing Provider: ERICA CANNON MD * Telephone Encounter - Lexii Fowler RN - 09/20/2022 11:03 AM EDT Addended: Patient calling to request to add refill of lorazepam to prior med requests, as pended. Medication refill requested by Patient Requested Prescriptions Pending Prescriptions Disp Refills albuterol (PROVENTIL) 2.5 mg /3 mL (0.083 %) nebulizer solution 300 mL 5 Sig: inhale contents of one vial in nebulizer every 6 hours if needed for wheezing and shortness ofbreath ipratropium (ATROVENT) 0.02 % nebulizer solution 250 mL 5 Sig: Use 2.5 mL via nebulizer four times daily as needed (wheezing). Use over 5- 15minutes. Use in addition to albuterol nebulizer. LORazepam (ATIVAN) 1 mg tablet 30 tablet 0 Sig: Take 0.5-1 tablets by mouth once daily as needed for anxiety for up to 30 days. Lexii Fowler RN * Telephone Encounter - Lili Cummings RN - 09/20/2022 10:32 AM EDT Patient has been identified by name and date of : Yes, Provider Dr Cannon Date 09/20/22 Time 1033. Patient phones for refill(s): Requested Prescriptions Pending Prescriptions Disp Refills albuterol (PROVENTIL) 2.5 mg /3 mL (0.083 %) nebulizer solution 300 mL 5 Sig: inhale contents of one vial in nebulizer every 6 hours if needed for wheezing and shortness ofbreath ipratropium (ATROVENT) 0.02 % nebulizer solution 250 mL 5 Sig: Use 2.5 mL via nebulizer four times daily as needed (wheezing). Use over 5- 15minutes. Use in addition to albuterol nebulizer. Date of last office visit in primary care: 08/21/22 Future visit: 10/08/22 Last 2 Encounter Wt Readings: Date: Wt: 08/21/2022 149.7 kg (330 lb) 08/12/2022 153.8 kg (339 lb) Previous labs/tests for medication: Blood Pressure: BUN (mg/dL) Date Value 08/30/2022 16 09/05/2020 12 Sodium (mmol/L) Date Value 08/30/2022 140 09/05/2020 138 Last 1 Encounter BP Readings: Date: BP: 09/02/2022 122/53 Liver Function: ALT (U/L) Date Value 08/12/2022 13 09/05/2020 13 AST (U/L) Date Value 08/12/2022 16 09/05/2020 25 Please advise. Thank you. Lili Cummings, RN documented in this encounterNewark Hospital07-28-2023 Miscellaneous Notes* Telephone Encounter - Sridevi Isabel LPN - 09/20/2022 1:08 PM EDT Spoke with patient and she asked to disregard this message and will call when needs a refill. * Telephone Encounter - Muriel Burgess LPN - 09/17/2022 1:30 PM EDT Pt is calling to see if office received a fax from [place] for refills. Pt reports [facility] called her to tell her they have not received any of the rx orders they faxed to office. Asked pt what meds the refills were for an pt did not know. Muriel Burgess LPN documented in this encounterNewark Hospital07-27-2023 Miscellaneous Notes* Telephone Encounter - Lexii Fowler RN - 09/19/2022 8:36 AM EDT Medication refill requested by Patient Please review and advise. Requested Prescriptions Pending Prescriptions Disp Refills albuterol (PROVENTIL) 2.5 mg /3 mL (0.083 %) nebulizer solution 300 mL 5 Sig: inhale contents of one vial in nebulizer every 6 hours if needed for wheezing and shortness ofbreath ipratropium (ATROVENT) 0.02 % nebulizer solution 250 mL 5 Sig: Use 2.5 mL via nebulizer four times daily as needed (wheezing). Use over 5- 15minutes. Use in addition to albuterol nebulizer. Last encounter with this provider: 08/21/2022 Next appt: 10/08/2022 WBC (k/uL) Date Value 08/30/2022 6.97 Hemoglobin (g/dL) Date Value 08/30/2022 10.2 (L) Platelet Count (k/uL) Date Value 08/30/2022 319 Glucose (mg/dL) Date Value 08/30/2022 111 (H) BUN (mg/dL) Date Value 08/30/2022 16 Creatinine (mg/dL) Date Value 08/30/2022 1.06 (H) Sodium (mmol/L) Date Value 08/30/2022 140 Potassium (mmol/L) Date Value 08/30/2022 3.5 (L) Calcium, Total (mg/dL) Date Value 08/30/2022 8.5 Alkaline Phosphatase (U/L) Date Value 08/12/2022 132 (H) Bilirubin, Total (mg/dL) Date Value 08/12/2022 0.4 AST (U/L) Date Value 08/12/2022 16 ALT (U/L) Date Value 08/12/2022 13 Cholesterol, Total (mg/dL) Date Value 04/30/2021 151 Triglyceride (mg/dL) Date Value 04/30/2021 54 TSH (mIU/L) Date Value 08/12/2022 2.070 Lexii Fowler RN documented in this encounterNew[facility]07-13-2023 Miscellaneous Notes* Telephone Encounter - John Caldwell MD - 09/05/2022 6:39 PM EDT Spoke to patient, her vision continues to improve and she has no eye complaints or pain in the lefteye. She has been experiencing what she equates to be one of her usual chronic headaches over the past 4 days. She placed a call to her headache doctor but has not heard back yet. Denies any other neurological symptoms or other complaints. Recommended patient follow-up with her headache specialist or call PCP if any other symptoms develop. documented in this encounterNewark Hospital07-11-2023 Instructions* Patient Instructions* Sosa Vickers - 09/03/2022 2:47 PM EDT First week after surgery (09/03/2022 - 09/08/2022) PREDNISOLONE (PINK or WHITE CAP): ONE DROP 4 TIMES DAILY Wear eye shield over eye at bedtime (with tape) No heavy lifting/strenuous exercise No recreational water activities (swimming, hot tubs, saunas) No gardening/yardwork Second week after surgery (09/09/2022 - 09/15/2022) PREDNISOLONE (PINK or WHITE CAP): ONE DROP 3 TIMES DAILY Okay to stop wearing eye shield Okay to resume exercise/lifting No recreational water activities (swimming, hot tubs, saunas) No gardening/yardwork Third week after surgery (09/16/2022 - 09/22/2022) PREDNISOLONE (PINK or WHITE CAP): ONE DROP 2 TIMES DAILY Okay to resume gardening/yardwork No recreational water activities (swimming, hot tubs, saunas) Fourth week after surgery (09/23/2022 - 09/29/2022) PREDNISOLONE (PINK or WHITE CAP): ONE DROP 1 TIME DAILY No recreational water activities (swimming, hot tubs, saunas) Fifth week after surgery (09/23/2022) DISCONTINUE PREDNISOLONE DROPS Okay to resume all normal activities including water activities documented in this encounterNewark [facility]07-11-2023 History of Present illness Narrative* John Caldwell MD - 09/03/2022 2:45 PM EDT Encounter Diagnosis ICD-10-CM 1. Pseudophakia Z96.1 (Z96.1) Pseudophakia (primary encounter diagnosis) Comment: 1 DAY POST-OP CATARACT SURGERY OS -Doing well - PREDNISOLONE ACETATE 1% QID operative eye - Routine precautions discussed - Shield at bedtime - No strenuous activity - Call [facility] if new signs/symptoms/pain/vision loss - Follow up 1 week If vision is normal, no new symptoms can cancel 1 week and return for 1 month visit (will taper pf 3-2-1 at home) By signing my name below, I, Sosa Vickers, attest that this documentation has been prepared under the direction and in the presence of Dr. Caldwell Electronically signed, Mahesh Tobias September 03, 2022 3:11 PM I agree with the Chief Complaint, ROS, and Past Histories independently gathered by the clinical marketing support specialist and the remaining scribed note accurately describes my personal service to the patient. NEXT VISIT ORDERS 1 WEEK POST-OP: VA OU QUICK MRX OPERATIVE EYE ONLY IOP OU NEXT VISIT ORDERS 1 MONTH POST-OP VISION OU MRX OU IOP OU DILATED FUNDUS EXAM OPERATIVE EYE I have confirmed and edited as necessary the relevant ophthalmic history, ROS, and the neuro exam findings as obtained by others. I have seen and examined this patient. I have discussed the case and the management of this patient's care with the Resident/Fellow, if applicable. I also have reviewed and agree with the assessment and plan as stated above and agree with all of its relevant components. John Caldwell MD documented in this encounterNewark Hospital07-10-2023 Miscellaneous Notes* Telephone Encounter - Nanci Dorado LPN - 09/02/2022 10:28 AM EDT Spoke with pt and information listed below given. Pt verbalizes understanding. Nanci MACHADO * Telephone Encounter - Erica Cannon MD - 08/31/2022 9:36 PM EDT May resume Trulicity (that was what she requested in prior telephone encounter; documentation notesthat did not tolerate GI side effects from Ozempic). If develops any GI adverse effects with trying Trulicity again, needs to stop it right away given there severity of symptoms that developed while she tried to stay on Mounjaro despite GI side effects. Will start at low dose and titrate up as tolerated every 4 weeks to try to make sure no adverse effects develop with resuming Trulicity. Of course, if PharmD says she can titrate up faster, that would be fine. * Telephone Encounter - Lexii Fowler RN - 08/29/2022 4:48 PM EDT Patient returned call and given provider's message below. Patient requesting that Dr. Cannon offer her recommendations on this encounter as well. Please call pt back with Dr. Cannon' reply. Thank you. Juanita Fowler RN * Telephone Encounter - Pati Smith LPN - 08/29/2022 4:41 PM EDT No answer. Left message for patient to call office and ask to speak to a nurse regarding blood sugars. * Telephone Encounter - Lydia North APRN.KATE - 08/29/2022 4:36 PM EDT Her glucose was 102 08/21/2022. Is her meter accurate? Did she want to check an A1c? I will place an order. For now would recommend avoiding sugar in diet, limit portion sizes of bread potatoes rice and pasta and exercise as able daily to help keep this in control. Hemoglobin A1C Date Value 02/27/2022 5.3 09/05/2020 6.9 % * Telephone Encounter - Treva Cr RN - 08/29/2022 12:21 PM EDT Patient calls and is concerned because her blood sugars have become more elevated. Patient has not been on any medication for diabetes since she was taken off of Mounjaro. Patient reports that fasting blood sugar was 252. Lunch blood sugar was 250 today. Patient is asking if she should start takingthe Ozempic? Patient is not wanting her blood sugars to get out of control. Please review and advise, Treva Cr RN documented in this encounterNewark Hospital07-10-2023 Miscellaneous Notes* Telephone Encounter - Nanci Dorado LPN - 09/02/2022 10:28 AM EDT Spoke with pt and information listed below given. Pt has been taking the iron daily. Erica Cannon MD 08/31/2022 9:34 PM EDT Kidney function much improved with Cr from 1.48 on 08/21 down to 1.06 (last year Creatinine was 0.8 to 0.9). Potassium down to 3.5--need to resume potassium. Was on 20 meq potassium pills before. Used to needhigh doses on high dosages of Lasix. Dose is lower now.Wrote prescription for one twice daily. Would have her take 1 twice daily for 5 days then 1 once daily till gets labs in about 4 weeks. May get labs sooner if prefers. Hg down to 10.2; was 11.6 when was discharged from [facility] Will follow up with next labs. Would verify if taking iron Friday, Friday, Friday. HgA1C on low side at 4.7. Might have been affected by anemia issues though. Check in 3 months. Plan on labs in about 4 weeks. Nanci Dorado LP documented in this encounterNewark Hospital07-03-2023 Miscellaneous Notes* Telephone Encounter - Erica Cannon MD - 08/26/2022 8:48 PM EDT See other encounter. I called patient * Telephone Encounter - Lauren Seo RN - 08/23/2022 8:41 AM EDT Pt calling in again for echo and lab results. * Telephone Encounter - Lexii Fowler RN - 08/22/2022 12:09 PM EDT Patient returned call and given provider's message below and patient verbalized understanding. Patient also asking for PCP to advise on her recent ECHO results and lab result, when able. Juanita Fowler RN * Telephone Encounter - Lydia North APRN.KATE - 08/22/2022 9:04 AM EDT Yesterdays note incomplete. Presume needs treatment for IV site induration. Will send an antibiotic. May take Tylenol during the day for pain at the site, tramadol at bedtime as needed for pain. Recheck in office 1 week with me if not improved. Continue with all other treatments as advised at office yesterday. * Telephone Encounter - Deirdre Jacob LPN - 08/22/2022 8:16 AM EDT Pt was seen in office yesterday for hosp FU. Pt states her arm is very bruised, swollen & painful from IV & she was to call the office today if arm is still painful. Pt states she didn't sleep well last pm d/t the pain. States she used warm compresses on & off throughout the night but it wasn't helpful. Pt states she was told if still painful today an Rx would be sent in for her. Pt uses [facility] in [place]. Please advise. Deirdre Jacob LPN documented in this encounterNewark Hospital07-01-2023 Miscellaneous Notes* Telephone Encounter - Sridevi Isabel LPN - 08/24/2022 9:13 AM EDT Home care Certification Form 485 received from [facility]. For cert dates 05/02/22-06/30/22 that were signed on 07/19/2022 New Certification Patient's home health 485 form / care plan for stated certification period reviewed and signed. Relevant medical records were reviewed. No changes were indicated documented in this encounterNewark Hospital06-30-2023 Miscellaneous Notes* Telephone Encounter - Lexii Fowler RN - 08/23/2022 1:56 PM EDT Opened in error. documented in this encounterNewark Hospital06-30-2023 Miscellaneous Notes* Telephone Encounter - Marquez Araya Ma - 08/23/2022 8:17 AM EDT Seen in office 08/21 * Telephone Encounter - Lydia North APRN.CNS - 08/20/2022 7:01 AM EDT Was admitted 08/14 [facility]. Care everywhere admission diagnoses: diarrhea, LORNE, asymptomatic bacteruria,gastroenteritis, hypokalemia. CT completed at [facility]. Check for records, schedule follow up if needed. * Telephone Encounter - Lydia North APRN.CNS - 08/15/2022 9:01 AM EDT Please obtain abdominal and pelvis CT abdomen results completed today when available. * Telephone Encounter - Inna Mcmanus - 08/14/2022 1:41 PM EDT Called geospatial technician at [facility] and faxed orders with the no IVCON over to [facility]. PT is agreeable to the 130pm appointment on 08/[address] [facility]. * Telephone Encounter - Katya Oliva APRN.CNP - 08/14/2022 1:[address] ordered without IV contrast, please fax to [facility] Katya Oliva APRN.CNP * Telephone Encounter - Sridevi Isabel LPN - 08/14/2022 1:10 PM EDT There is an iodine allergry on medication list. Patient scheduled for STAT CT 08/15/22 at [facility]/[place]. Please advise. * Telephone Encounter - Inna Mcmanus - 08/14/2022 12:32 PM EDT Called pt to schedule the CT and Gastro. She does not want to travel outside of [place]. She requested that we send paper work to [facility]. Faxed the orders to [facility]. Pt was not ready to schedule Gastro yet. * Telephone Encounter - Marquez Araya Ma - 08/14/2022 11:44 AM EDT Routing to schedulers pool and orders handed to PSS on this floor. * Telephone Encounter - Katya Oliva APRN.CNP - 08/14/2022 11:37 AM EDT Reviewed results of labs and stool studies with patient's PCP. Fecal calprotectin significantly elevated, indicating possible inflammatory bowel disease. PCP recommending CT scan, referral to GI and starting treatment with oral budesonide. TC to patient to review recommendations, she verbalized unde rstanding and is agreeable. Advised ER for any worsening symptoms. Continue to push fluids, recommend electrolyte replacement drink which she is already doing. Please call patient to schedule stat CTand referral to GI [facility]. Patient lives in [place] and traveling far is an issue, please see if sheis willing or able to travel to [place]. Katya Oliva APRN.CNP * Telephone Encounter - Shant Boyle RN - 08/14/2022 10:49 AM EDT Patient reports the lomotil is not helping, the diarrhea is the same. Has had 8- 9 liquid stools in the last 24 hours. Reports she has had diarrhea for 5 days now. This morning she took sips of a johns slush and vomited a lot of green liquid. After vomiting the stomach cramping improved. Has abdominal cramping just prior to BM. Has lost 9 # in the last 5 days. BS last hs- 156, BS this morning 140. No appetite, only drinking liquids. No fever. Patient asked if lab results are back. Advised patient Air Quality Instrument Specialist sent her a test company message regarding those results and it is marked that she read it. Patient states that must have been her son who read it. Given MC message to patient. Patient asking Air Quality Instrument Specialist to advise. Should she continue taking the lomotil? documented in this encounterNewark Hospital06-28-2023 History of Present illness Narrative* Erica Cannon MD - 08/21/2022 4:36 PM EDT This note was created using [employer]. Subjective Meggan rAita is a 61 year old female. Patient presents with: Hospital F/U: [facility] follow up SUBJECTIVE: Meggan Arita is a 61 year old year old lady here today for Hospital follow up appointment for review of medical conditions. Mounjaro --suspected cause of the diarrhea and vomiting then dehydration the last 3 weeks of takingmed. Tolerated Trulicity BP med was lowered 100 mg to 50 mg. Does not have BP cuff. Indurated left upper arm from site of IV. PAST MEDICAL HISTORY Diagnosis Date Acute gastritis without mention of hemorrhage ALLERGIC RHINITIS NOS 07/15/2007 ANXIETY STATE NOS 12/09/2006 Carpal tunnel syndrome 04/10/2007 Bilateral symptoms with the left worse than the right as of 04-03 CHOLELITH W CHOLECYS NEC 02/07/2005 Lap favio in 03-01 Chronic hepatitis, unspecified (HCC) 03/06/2005 Depression Edema 06/01/2007 Admit 07-08-08 for RLE venous stasis ulcer on Cubicin. Put pt on disability from 08-03-08 to 11-24-08 Esophageal reflux GENERAL OSTEOARTHROSIS 10/29/2006 Headache(784.0) 01/20/2007 [facility] 12-26: consid Sjogren's, CT chest/MRI head/HYUN/KEO/OSMANY/ANCA/SSA/SSB neg Again reinforced the need to start CPAP on 03-04-07: unable to afford as of 04-03 for insurance issues INSOMNIA NOS 07/31/2007 IRON DEFIC ANEMIA NOS 01/20/2007 Colon 03-22-02 ([facility]): no polyps, masses or AVMs Lactose intolerance Low blood potassium 10/20/2014 Low magnesium level 07/08/2016 Morbid obesity (HCC) Obesity, unspecified Obstructive sleep apnea Other dyspnea and respiratory abnormality Primary osteoarthritis of both knees 03/08/2020 severe narrowing of the medial joint space with marginal osteophytes--x-ray knee 2016 SPINAL STENOSIS-LUMBAR 07/09/2007 Stasis edema with ulcer (HCC) 08/02/2013 Type II or unspecified type diabetes mellitus without mention of complication, not stated as uncontrolled 08/05/2007 Unspecified asthma(493.90) Unspecified essential hypertension Current Outpatient Medications Medication Sig dicyclomine (BENTYL) 10 mg capsule Take 1 capsule by mouth three times daily. budesonide, enteric coated (ENTOCORT EC) 3 mg 24 hr capsule Take 3 capsules by mouth once daily. ferrous sulfate (IRON ORAL) Take by mouth. Chlorhexidine Gluconate (PERIDEX) 0.12 % solution Use 15 mL as instructed twice daily. Rinse aroundmouth for 30 seconds then expectorate (spit out). LORazepam (ATIVAN) 1 mg tablet Take 0.5-1 tablets by mouth once daily as needed for anxiety for up to 30 days. Do not start before August 15, 2022. WALKER ROLLATOR SEAT WITH 6" WHEELS - RED Diagnosis: Unsteady gait, primary osteoarthritis both knees, decreased mobility cyclobenzaprine (FLEXERIL) 5 mg tablet Take 1 tablet by mouth three times daily as needed. nystatin (MYCOSTATIN) powder Apply 1 application to affected area four times daily. venlafaxine ER (EFFEXOR XR) 75 mg 24 hr capsule Take 1 capsule by mouth once daily. flash glucose sensor (FREESTYLE SHAKIRA 2 SENSOR) kit Apply new sensor every fourteen (14) days to upper arm. atorvastatin (LIPITOR) 40 mg tablet Take 1 tablet by mouth once daily. albuterol (PROVENTIL) 2.5 mg /3 mL (0.083 %) nebulizer solution inhale contents of one vial in nebulizer every 6 hours if needed for wheezing and shortness of breath albuterol HFA (PROVENTIL HFA, VENTOLIN HFA) 90 mcg/actuation inhaler Inhale 2 Puffs as instructed every 4 hours as needed for wheezing/shortness of breath. May give preferred namebrand (per formularyand/or patient preference) fluticasone (FLONASE) 50 mcg/actuation nasal spray Use 2 Sprays in each nostril once daily as needed. ipratropium (ATROVENT) 0.02 % nebulizer solution Use 2.5 mL via nebulizer four times daily as needed (wheezing). Use over 5-15minutes. Use in addition to albuterol nebulizer. pantoprazole DR (PROTONIX) 40 mg tablet Take 1 tablet by mouth once daily. losartan (COZAAR) 100 mg tablet Take 1 tablet by mouth once daily. insulin needles, DISPOSABLE, (BD INSULIN PEN NEEDLE UF) 31 gauge x 5/16" USE 6 DAILY DIRECTED with Toujeo and Humalog and Kaity Diaper,Brief, Adult,Disposable (DISPOSABLE BRIEF) Bariatric Briefs - Prevail. Going thru [facility]. 2 per day. blood sugar diagnostic (BLOOD GLUCOSE TEST) test strip Test blood sugar(s) four times daily. Dx: Type 2 DM - Controlled E11.9 Insulin: No Lancets lancets Test blood sugar(s) 4 times daily. Dx: Type 2 DM - Controlled E11.9 Insulin: No montelukast (SINGULAIR) 10 mg tablet Take 1 tablet by mouth daily at bedtime. mupirocin (BACTROBAN) 2 % cream Use up to three times a day. Location: left inner thigh gabapentin (NEURONTIN) 100 mg capsule Take 2 capsules by mouth daily at bedtime for 180 days. mometasone-formoterol (DULERA) 200-5 mcg/actuation inhaler Inhale 2 Puffs as instructed twice daily. ketoconazole (NIZORAL) 2 % cream apply to affected area OF RASH AND SURROUNDING AREA UNDER BREAST once daily bismuth subsalicylate (PEPTO-BISMOL) 262 mg chew Take 2 tablets by mouth four times daily. docusate sodium (COLACE) 100 mg capsule Take 2 capsules by mouth DAILY AT 6 PM. CPAP AutoPAP 5-12 CM H2O with humidification. Mask (per patient preference) optional chin strap (ifindicated) , filters, tubing, humidifier and lifetime supplies. ipratropium bromide (ATROVENT) 42 mcg (0.06 %) nasal spray Use 2 Sprays in each nostril four times daily. Miscellaneous Medical Supply Order: Overnight pulse ox on 4LPM Diagnosis: R09.02 (checking if needsO2 increased at night) Blood Pressure Monitor (BLOOD PRESSURE KIT) kit For home use Dx: labile blood pressure loratadine (CLARITIN) 10 mg tablet Take 1 tablet by mouth once daily. Blood-Glucose Meter (FREESTYLE FREEDOM LITE) monitoring kit 1 Each as needed. polyethylene glycol 3350 (MIRALAX) 17 gram/dose powder 2 scoop in liquid daily as needed for bowel movement COMPOUNDED PRESCRIPTION TENS Unit 4 lead. Use as directed. Needs refills for leads 1 per month as needed Dispense 1 with 5 refills. (M48.06) Spinal stenosis, lumbar region, without neurogenic claudication Nebulizer NEBULIZER FOR HOME USE. DX: (J45.20) Mild intermittent asthma without complication diphenoxylate-atropine (LOMOTIL) 2.5-0.025 mg per tablet Take 1 tablet by mouth four times daily asneeded for diarrhea for up to 7 days. ondansetron (ZOFRAN) 4 mg tablet Take 1 tablet by mouth every 8 hours as needed. (Patient not taking: Reported on 08/21/2022) tirzepatide (MOUNJARO) 7.5 mg/0.5 mL pen injector Inject 7.5 mg subcutaneously one time a week. (Patient not taking: Reported on 08/21/2022) Leg Brace (KNEE SUPPORT BRACE) misc 1 Each as directed. (Patient not taking: Reported on 08/21/2022) furosemide (LASIX) 40 mg tablet Take 1 tablet by mouth once daily. (Patient not taking: Reported on08/21/2022) metOLazone (ZAROXOLYN) 5 mg tablet take 1 tablet by mouth 30 MINUTES PRIOR TO TAKING LASIX IF NEEDED FOR INCREASED SWELLING DIRECTED (Patient not taking: Reported on 08/21/2022) oxaprozin (DAYPRO) 600 mg tablet Take 1-2 tablets by mouth once daily. as needed for knee pain. (Patient not taking: Reported on 08/21/2022) Current Facility-Administered Medications Medication Dose Route Frequency perflutren lipid microspheres 1.3 mL in NaCl (PF) 0.9% 10 mL injection (DEFINITY) INTRAVENOUS DIRECTED PRN sodium chloride 0.9 % (flush) 10 mL (BD POSIFLUSH) 10 mL INTRAVENOUS DIRECTED PRN Review of Systems Objective BP 144/82 Pulse 77 Temp (!) 35.7 C (96.3 F) Resp 18 Wt (!) 149.7 kg (330 lb) LMP 02/11/2011 SpO2 100% BMI 50.18 kg/m Physical Exam Constitutional: Appearance: She is obese. HENT: Head: Normocephalic. Eyes: Conjunctiva/sclera: Conjunctivae normal. Cardiovascular: Rate and Rhythm: Normal rate and regular rhythm. Heart sounds: Normal heart sounds. Comments: Left upper arm site of IV with area of induration and tenderness but no redness or warmthor fluctuance Pulmonary: Effort: Pulmonary effort is normal. Breath sounds: Normal breath sounds. Musculoskeletal: Right lower leg: Pitting Edema present. Left lower leg: Pitting Edema present. Skin: General: Skin is warm and dry. Neurological: General: No focal deficit present. Mental Status: She is alert and oriented to person, place, and time. Motor: Weakness (Generalized weaknes; in wheelchair) present. Psychiatric: Attention and Perception: Attention and perception normal. Mood and Affect: Affect normal. Mood is anxious. Speech: Speech normal. Behavior: Behavior normal. Thought Content: Thought content normal. Cognition and Memory: Cognition normal. Judgment: Judgment normal. Comments: Anxiety regarding health conditions noted Assessment and Plan Encounter Diagnosis ICD-10-CM 1. Acute renal insufficiency N28.9 BASIC METABOLIC PNL 2. Hypokalemia E87.6 BASIC METABOLIC PNL 3. Muscular deconditioning R29.898 Due to illness and hospitalization 4. Chronic nasal congestion R09.81 ipratropium bromide (ATROVENT) 42 mcg (0.06 %) nasal spray 5. Primary hypertension I10 States BP at wound care cente has been good 6. Ulcer of left lower extremity, limited to breakdown of skin ([facility]) L97.921 Diaper,Brief, Adult,Disposable (DISPOSABLE BRIEF) 7. Allergic rhinitis, unspecified seasonality, unspecified trigger J30.9 ipratropium bromide (ATROVENT) 42 mcg (0.06 %) nasal spray 8. Morbid obesity ([facility]) E66.01 Diaper,Brief, Adult,Disposable (DISPOSABLE BRIEF) Above issues addressed with patient. Patient involved in shared decision making for management of medical issues. History and medications reviewed. Epic updated as needed Refills and/or prescriptions taken care of and meds adjusted as indicated after reviewed history, exam and labs. Health Maintenance reviewed. Updated record and/or ordered tests as recorded. Encouraged on efforts at healthy diet and regular exercise and adequate sleep. Needs to keep working on diet and exercise with lifestyle changes for effective weight loss as well as prevention of DM,and control of BP and lipids. Discussed with patient and family about management of above issues. Labs on way out then repeat labs as discussed for monitoring of renal function, potassium, anemia. Adjust meds as indicated. Will need PT to regain strength since deconditioned after illness and need for hospitalization. Continue efforts at staying hydrated but also need to manage bilateral leg edema. Further evaluation and treatment as indicated. Monitor for signs of infection at site of IV. Appears to be localized thrombophlebitis but no overtsigns of infection. Further evaluation and treatment as indicated. Erica Cannon MD [facility] [facility] August 19, 2022 12:29pm Note Date/Time August 19, 2022 12:2 9pm [facility] Medical Records Department [address] [place] [address] Progress Note - Surgery 08/19/22 1225 MR#: [id number] Acct: [id number] Name: MEGGAN ARITA Rep #:[id number] : 1960 61 From: Raysa Knox MD PCP: Dr. Erica Cannon MD Status:AD M IN Location: [place] 400778-1 Subjective Subjective Patient still tolerating diet, denies abdominal pain when asked Objective Data Objective Data Vital Signs: Vital Signs Temp Pulse Resp BP Pulse Ox O2 Del Method O2 Flow Rate 98.8 F 74 18 147/72 H 98 Room Air 1.5 08/19/22 10:00 08/19/22 10:00 08/19/22 10:00 08/19/22 10:00 08/19/22 11:20 08/19/22 11:20 08/16/22 13:31 FiO2 21 08/15/22 07:16 Oxygen Flow Rate (L/min) 1.5 Oxygen Delivery Method Room Air Weight: 334 lb 0.005 oz Body Mass Index (BMI) 50.8 Intake & Output: Intake and Output for Last 24 Hours 08/17/22 08/18/22 08/19/22 23:59 23:59 23:59 Intake Total 3528.25 / 3528.25 1473.00 / 1473.00 1760 / 1760 Output Total 800 / 800 150 / 150 Balance 2728.25 / 2728.25 1473.00 / 1473.00 1610 / 1610 Lab / Micro Data Result Diagrams: 08/19/22 05:27 08/19/22 05:27 Labs: Laboratory Results - last 24 hr 08/18/22 16:46: POC Glucose 106 08/18/22 22:28: POC Glucose 90 08/19/22 05:27: WBC 16.5 H, RBC 3.84 L, Hgb 11.6 L, Hct 36.4 L, MCV 94.8, MCH 30.2, MCHC 31.9 L, RDW Std Deviation 43.8, RDW Coeff of Amirah 12.6, Plt Count 249,MPV 10.5, Neut % (Auto) Not Reportable, Absolute Neuts (auto) 6.6, Absolute Lymphs (auto) 3.96, Total Counted 100, Neutrophils % (Manual) 30 L, Band Neutrophils % 10 H, Lymphocytes % (Manual) 24, Monocytes % (Manual) 16 H, Eosinophils % (Manual) 17 H, Myelocytes % 3 H, Diff Path Review May foll, Atypical Lymphocytes 1+, Platelet Estimate ADEQUATE, RBC Morphology NORM C+C 08/19/22 05:27: Sodium 144, Potassium 2.9 L, Chloride 124 H, Carbon Dioxide 15.0L, Anion Gap 5, BUN 18, Creatinine 1.67 H, Estim Creat Clear Calc 35.23, Est GFR(MDRD) Af Amer 40 L, Est GFR (MDRD) Non-Af 33 L, BUN/Creatinine Ratio 10.8, Glucose 86, Calcium 7.8 L, Total Bilirubin 0.40, AST 17, ALT 17, Alkaline Phosphatase 86, Total Protein 5.7 L, Albumin 2.1 L, Globulin 3.6, Albumin/Globulin Ratio 0.6 L 08/19/22 05:48: POC Glucose 82 08/19/22 11:13: POC Glucose 95 Micro: Microbiology 08/15/22 15:31 Blood Culture (Wb) - Anticubital Right Blood Culture - Preliminary No growth in 48 hours. 08/15/22 14:59 Blood Culture (Wb) - Anticubital Right Blood Culture - Preliminary No growth in 48 hours. 08/14/22 19:38 Urine, Catheterized Urine Culture - Final Escherichia coli Escherichia coli#2 08/14/22 19:38 Stool Stool Lactoferrin - Final 08/14/22 19:38 Stool Enteric Bacteriology - Final 08/14/22 19:38 Stool C. difficile DNA Amplification - Final Physical Exam Const oriented x3 and no apparent distress Resp normal respiratory effort Cardio regular rate GI soft to palpation GI Narrative: Minimal tender in epigastric -improved from yesterday. No peritoneal signs Assessment & Plan Assessment/Plan (1) LUQ pain: (2) Epigastric abdominal pain: (3) Acute renal failure: (4) Asymptomatic bacteriuria: (5) Gastroenteritis: PLAN: Plan Continue IV Protonix as well as Carafate. Patient states abdominal pain is improved. [place] would send patient patient home with Carafate x1 month 4 times daily. And continue on her Protonix. Leukocytosis?unsure etiology. Patient's abdominal exam at this time does not warrant a CT. Patient is agreeable with plan. Will sign off-- call with questions. Raysa Knox M.D. Pager: [phone] [facility] [address] [place] [address], Outpatient Pavilion, [address] [place] [address] Office: [phone] Charges/Coding Visit Charges Inpatient E&M: 40186 Subs Hosp L2 08/19/22 1229 <Electronically signed by Raysa Knox MD> Cosigner Signature (if applicable): CC: ~ Signed [facility] Work Phone: 1(578) 624-853906-25-[address] Pizarro [facility] August 18, 2022 5:40pm Note Date/Time August 18, 2022 5:26 pm [facility] Medical Records Department [address] [place] [address] Progress Note - Hospitalist 08/18/22 1723 MR#: [id number] Acct: [id number] Name: MEGGAN ARITA Rep #:[id number] : 1960 61 From: Jim Pizarro DO PCP: Dr. Erica Cannon MD Status:AD M IN [id number] Reason for Visit Reason for Visit: Diagnoses Morbid (severe) obesity with alveolar hypoventilation (08/14/22) Hypokalemia (08/14/22) Noninfective gastroenteritis and colitis, unspecified (08/14/22) Acute kidney failure, unspecified (08/14/22) Left upper quadrant pain (08/14/22) Epigastric pain (08/14/22) Bacteriuria (08/14/22) Personal history of other endocrine, nutritional and metabolic disease (08/14/22) Subjective Subjective Patient was seen and examined today, she still having diarrhea, I have elected to program her Imodium and increase her Bentyl, I talked briefly with her son about her medical care today. Objective Data Objective Data Vital Signs: Vital Signs Temp Pulse Resp BP Pulse Ox O2 Del Method O2 Flow Rate 98.3 F 92 18 155/71 H 100 Room Air 1.5 08/18/22 14:00 08/18/22 14:00 08/18/22 14:00 08/18/22 14:00 08/18/22 14:00 08/18/22 14:00 08/16/22 13:31 FiO2 21 08/15/22 07:16 Oxygen Flow Rate (L/min) 1.5 Oxygen Delivery Method Room Air Weight: 151.5 kg Body Mass Index (BMI) 50.8 Intake & Output: Intake and Output for Last 24 Hours 08/16/22 08/17/22 08/18/22 23:59 23:59 23:59 Intake Total 2622.51 / 2622.51 3528.25 / 3528.25 1363.00 / 1363.00 Output Total 850 / 1200 800 / 800 Balance 1772.51 / 1422.51 2728.25 / 2728.25 1363.00 / 1363.00 Lab / Micro Data Result Diagrams: 08/18/22 05:28 08/18/22 05:28 Labs: Laboratory Results - last 24 hr 08/17/22 17:27: POC Glucose 90 08/17/22 21:30: POC Glucose 95 08/18/22 05:28: WBC 11.1 H, RBC 4.18 L, Hgb 12.5, Hct 40.0, MCV 95.7, MCH 29.9, MCHC 31.3 L, RDW Std Deviation 43.2, RDW Coeff of Amirah 12.4, Plt Count 302, MPV 10.5, Immature Gran % (Auto) 3.400 H, Neut % (Auto) 27.4 L, Lymph % (Auto) 35.2,[place] % (Auto) 20.5 H, Eos % (Auto) 12.5 H, Baso % (Auto) 1.0, Absolute Neuts (auto) 3.1, Absolute Lymphs (auto) 3.91, Nucleated RBC % 0.2, Differential Comment SCANNED, Diff Path Review June08/18/22 05:28: Sodium 146 H, Potassium 3.0 L, Chloride 123 H, Carbon Dioxide 16.0 L, Anion Gap 7, BUN 22 H, Creatinine 1.81 H, Estim Creat Clear Calc 32.51, Est GFR (MDRD) Af Amer 36 L, Est GFR (MDRD) Non-Af 30 L, BUN/Creatinine Ratio 12.2, Glucose 88, Calcium 7.5 L, Total Bilirubin 0.30, AST 14 L, ALT 13, Alkaline Phosphatase 78, Total Protein 5.3 L, Albumin 2.0 L, Globulin 3.3, Albumin/Globulin Ratio 0.6 L 08/18/22 05:35: POC Glucose 79 08/18/22 11:38: POC Glucose 86 08/18/22 16:46: POC Glucose 106 Micro: Microbiology 08/15/22 15:31 Blood Culture (Wb) - Anticubital Right Blood Culture - Preliminary No growth in 48 hours. 08/15/22 14:59 Blood Culture (Wb) - Anticubital Right Blood Culture - Preliminary No growth in 48 hours. 08/14/22 19:38 Urine, Catheterized Urine Culture - Final Escherichia coli Escherichia coli#2 08/14/22 19:38 Stool Stool Lactoferrin - Final 08/14/22 19:38 Stool Enteric Bacteriology - Final 08/14/22 19:38 Stool C. difficile DNA Amplification - Final Physical Exam Const alert, oriented x3 and no apparent distress Constitutional Narrative: Patient is morbidly obese General Appearance: cooperative, well kempt and well developed Orientation / Consciousness: awake, oriented to person, oriented to place and oriented to time HEENT normocephalic, head/scalp atraumatic and moist oral mucous membranes Eyes PERRL, EOMs intact bilaterally and conjunctivae normal Neck supple, no JVD, thyroid normal and no carotid bruits General: trachea midline Resp normal respiratory effort, no retractions, no use of accessory muscles and clearto auscultation bilaterally Auscultation: Negative for rales, rhonchi or wheezes Cardio regular rate, regular rhythm, S1 normal heart sound, S2 normal heart sound, no murmurs, no rub and no gallops GI normal to inspection, nondistended, normoactive bowel sounds, soft to palpation,non-tender and non-distended Extremity no clubbing, cyanosis or edema Skin no rashes or lesions noted General Skin Exam: no breakdown Neuro oriented x3, CN's II-XII intact bilaterally, moves all extremities, no focal motor deficits and no sensory deficits noted Sensorium / Orientation: awake, alert, oriented to person, oriented to place andoriented to time Speech: speech normal Psych affect normal Assessment & Plan Assessment/Plan (1) Diarrhea: PLAN: Plan 1. Acute diarrhea-etiology unclear at this point, could be secondary to recent Mounjaro usage, I have elected to increase patient's Bentyl and Imodium, continue on present diet #2 acute kidney injury on suspected chronic kidney disease stage IIIb-patient's creatinine today was 1.81, nephrology is participating in her care, her baselinekidney function appears to be similar to today's reading. #3 morbid obesity-complicates care, medical course, recovery, and prognosis #4 essential hypertension-patient will remain on present medication #5 type 2 diabetes-patient will remain on sliding scale insulin, coverage per fingerstick blood sugars #6 acute debility secondary to diarrhea-PT and OT are working with the patient, she will be reevaluated tomorrow #7 hypokalemia-patient was given oral potassium today #8 bacteriuria without evidence of cystitis-patient is no longer on antibiotics Total clinical time spent by myself addressing patient's medical issues, reviewing all of her data, and collaborating with patient's care team: 35 minutes Charges/Coding Visit Charges Inpatient E&M: 83446 Subs Hosp L2 08/18/22 1740 <Electronically signed by Jim Pizarro DO> Cosigner Signature (if applicable): CC: ~ Signed [facility] Work Phone: 1(389) 682-240606-25-[address] Knox [facility] August 18, 2022 9:00am Note Date/Time August 18, 2022 9:00 am [facility] Medical Records Department [address] [place] [address] Progress Note - Surgery 08/18/22 0858 MR#: [id number] Acct: [id number] Name: MEGGAN ARITA Rep #:[id number] : 1960 61 From: Raysa Knox MD PCP: Dr. Erica Cannon MD Status:AD M IN Location: [facility] [id number] Subjective Subjective Patient reports worse diarrhea last night however overnight less diarrhea and still not much this morning. Patient still complains of some abdominal pain. Patient is still tolerating diet. Objective Data Objective Data Vital Signs: Vital Signs Temp Pulse Resp BP Pulse Ox O2 Del Method O2 Flow Rate 98.2 F 84 20 H 147/65 H 97 Room Air 1.5 08/18/22 08:00 08/18/22 08:00 08/18/22 08:00 08/18/22 08:00 08/18/22 08:00 08/18/22 08:00 08/16/22 13:31 FiO2 21 08/15/22 07:16 Oxygen Flow Rate (L/min) 1.5 Oxygen Delivery Method Room Air Weight: 334 lb 0.005 oz Body Mass Index (BMI) 50.8 Intake & Output: Intake and Output for Last 24 Hours 08/16/22 08/17/22 08/18/22 23:59 23:59 23:59 Intake Total 2622.51 / 2622.51 3528.25 / 3528.25 764.17 / 764.17 Output Total 850 / 1200 800 / 800 Balance 1772.51 / 1422.51 2728.25 / 2728.25 764.17 / 764.17 Lab / Micro Data Result Diagrams: 08/18/22 05:28 08/18/22 05:28 Labs: Laboratory Results - last 24 hr 08/16/22 05:40: Lipase 08/17/22 06:40: Differential Comment SCANNED, Reactive Lymphocytes 1+ 08/17/22 11:28: POC Glucose 78 08/17/22 17:27: POC Glucose 90 08/17/22 21:30: POC Glucose 95 08/18/22 05:28: WBC 11.1 H, RBC 4.18 L, Hgb 12.5, Hct 40.0, MCV 95.7, MCH 29.9, MCHC 31.3 L, RDW Std Deviation 43.2, RDW Coeff of Amirah 12.4, Plt Count 302, MPV 10.5, Immature Gran % (Auto) 3.400 H, Neut % (Auto) 27.4 L, Lymph % (Auto) 35.2,[place] % (Auto) 20.5 H, Eos % (Auto) 12.5 H, Baso % (Auto) 1.0, Absolute Neuts (auto) 3.1, Absolute Lymphs (auto) 3.91, Nucleated RBC % 0.2, Differential Comment SCANNED, Diff Path Review June08/18/22 05:28: Sodium 146 H, Potassium 3.0 L, Chloride 123 H, Carbon Dioxide 16.0 L, Anion Gap 7, BUN 22 H, Creatinine 1.81 H, Estim Creat Clear Calc 32.51, Est GFR (MDRD) Af Amer 36 L, Est GFR (MDRD) Non-Af 30 L, BUN/Creatinine Ratio 12.2, Glucose 88, Calcium 7.5 L, Total Bilirubin 0.30, AST 14 L, ALT 13, Alkaline Phosphatase 78, Total Protein 5.3 L, Albumin 2.0 L, Globulin 3.3, Albumin/Globulin Ratio 0.6 L 08/18/22 05:35: POC Glucose 79 Micro: Microbiology 08/15/22 15:31 Blood Culture (Wb) - Anticubital Right Blood Culture - Preliminary No growth in 48 hours. 08/15/22 14:59 Blood Culture (Wb) - Anticubital Right Blood Culture - Preliminary No growth in 48 hours. 08/14/22 19:38 Urine, Catheterized Urine Culture - Final Escherichia coli Escherichia coli#2 08/14/22 19:38 Stool Stool Lactoferrin - Final 08/14/22 19:38 Stool Enteric Bacteriology - Final 08/14/22 19:38 Stool C. difficile DNA Amplification - Final Physical Exam Const oriented x3 and no apparent distress Resp normal respiratory effort Cardio regular rate GI soft to palpation GI Narrative: Tender in epigastric and right upper quadrant-improved from yesterday. No peritoneal signs Assessment & Plan Assessment/Plan (1) LUQ pain: (2) Epigastric abdominal pain: (3) Acute renal failure: (4) Asymptomatic bacteriuria: (5) Gastroenteritis: PLAN: Plan Continue IV Protonix as well as Carafate. Do not think that a CT abdomen pelvisat this time will add anything currently and I will also give her diarrhea she will get p.o. contrast. We will continue to follow patient. Raysa Knox M.D. Pager: [phone] [facility] [address] [place] [address], Outpatient Pavilion, [address] [place] [address] Office: [phone] Charges/Coding Visit Charges Inpatient E&M: 76307 Subs Hosp L2 08/18/22 0900 <Electronically signed by Raysa Knox MD> Cosigner Signature (if applicable): CC: ~ Signed [facility] Work Phone: 1(500) 921-284706-24-2023 Progress note Author Rae Kline [facility] August 17, 2022 4:20pm Note Date/Time August 17, 2022 4:20 pm [facility] Medical Records Department [address] [place] [address] Progress Note - Nephrology 08/17/22 1618 MR#: [id number] Acct: [id number] Name: MEGGAN ARITA Rep #:[id number] : 1960 61 From: Rae eddy MD PCP: Dr. Erica Cannon MD Status:AD M IN Location: [place] [id number] Subjective Subjective Follow-up on acute kidney injury, has been slowly improving over the last several days. She has now developed some abdominal pain and has been seen by surgeons. No respiratory compromise, hemodynamically stable Objective Data Objective Data Vital Signs: Vital Signs Temp Pulse Resp BP Pulse Ox O2 Del Method O2 Flow Rate 98.2 F 91 18 148/61 H 100 Room Air 1.5 08/17/22 14:14 08/17/22 14:14 08/17/22 14:14 08/17/22 14:14 08/17/22 14:14 08/17/22 14:14 08/16/22 13:31 FiO2 21 08/15/22 07:16 Oxygen Flow Rate (L/min) 1.5 Oxygen Delivery Method Room Air Weight: 151.5 kg Body Mass Index (BMI) 50.8 Intake & Output: Intake and Output for Last 24 Hours 08/15/22 08/16/22 08/17/22 23:59 23:59 23:59 Intake Total 3187.91 / 3187.91 2622.51 / 2622.51 2209.08 / 2209.08 Output Total 150 / 450 850 / 1200 650 / 650 Balance 3037.91 / 2737.91 1772.51 / 1422.51 1559.08 / 1559.08 Lab / Micro Data Attestation: I reviewed the patient's lab results. Result Diagrams: 08/17/22 06:40 08/17/22 06:40 Labs: Laboratory Results - last 24 hr 08/16/22 05:40: Lipase 23 08/16/22 16:20: POC Glucose 81 08/16/22 21:17: POC Glucose 80 08/17/22 06:40: WBC 9.9, RBC 4.02 L, Hgb 12.0, Hct 39.1, MCV 97.3, MCH 29.9, MCHC 30.7 L, RDW Std Deviation 43.6, RDW Coeff of Amirah 12.0, Plt Count 331, MPV 10.7, Immature Gran % (Auto) 3.300 H, Neut % (Auto) 26.5 L, Lymph % (Auto) 35.9,[place] % (Auto) 22.2 H, Eos % (Auto) 11.0 H, Baso % (Auto) 1.1 H, Absolute Neuts (auto) 2.6, Absolute Lymphs (auto) 3.55, Nucleated RBC % 0.2, Differential Comment SCANNED, Reactive Lymphocytes 1+ 08/17/22 06:40: Sodium 144, Potassium 4.1, Chloride 123 H, Carbon Dioxide 17.0 L, Anion Gap 4 L, BUN 31 H, Creatinine 2.23 H, Estim Creat Clear Calc 26.39, Est GFR (MDRD) Af Amer 29 L, Est GFR (MDRD) Non-Af 24 L, BUN/Creatinine Ratio 13.9, Glucose 91, Calcium 7.6 L, Total Bilirubin 0.30, AST 10 L, ALT 11 L, Alkaline Phosphatase 83, Total Protein 5.5 L, Albumin 2.0 L, Globulin 3.5, Albumin/Globulin Ratio 0.6 L 08/17/22 06:52: POC Glucose 88 08/17/22 11:28: POC Glucose 78 Micro: Microbiology 08/15/22 15:31 Blood Culture (Wb) - Anticubital Right Blood Culture - Preliminary No growth in 48 hours. 08/15/22 14:59 Blood Culture (Wb) - Anticubital Right Blood Culture - Preliminary No growth in 48 hours. 08/14/22 19:38 Urine, Catheterized Urine Culture - Final Escherichia coli Escherichia coli#2 08/14/22 19:38 Stool Stool Lactoferrin - Final 08/14/22 19:38 Stool Enteric Bacteriology - Final 08/14/22 19:38 Stool C. difficile DNA Amplification - Final Physical Exam Const alert and no apparent distress General Appearance: well developed Nutritional Appearance: obese HEENT normocephalic and moist oral mucous membranes Head and Scalp: atraumatic Neck no lymphadenopathy Resp no use of accessory muscles and clear to auscultation bilaterally Cardio regular rate GI Auscultation: normoactive bowel sounds Psych cooperative Assessment & Plan Assessment/Plan (1) Acute renal failure: PLAN: Creatinine is slowly improving, produces good amount of urine. No acidosis, no hyperkalemia. No need for dialysis today, hopefully she will continue to improve at this stage rate 08/17/22 1620 <Electronically signed by Rae Kline MD> Cosigner Signature (if applicable): CC: ~ Signed [facility] Work Phone: [phone]) 312-114706-24-2023 Progress note Author Rae Kline [facility] August 17, 2022 4:00pm Note Date/Time August 16, 2022 2:24 pm [facility] Medical Records Department [address] [place] [address] Progress Note - Nephrology 08/16/22 1414 MR#: [id number] Acct: [id number] Name: MEGGAN ARITA Rep #:[id number] : 1960 61 From: Cally kam [employer] PCP: Dr. Erica Cannon MD Status:AD M IN Location: [place] [address] Subjective Subjective Resting quietly. Reports feeling better today. Reports still nauseated and hadvomiting episode last evening. Multiple family members at bedside. Objective Data Objective Data Vital Signs: Vital Signs Temp Pulse Resp BP Pulse Ox O2 Del Method O2 Flow Rate 99.1 F 99 18 132/60 H 98 Nasal Cannula 1.5 08/16/22 08:15 08/16/22 08:15 08/16/22 08:15 08/16/22 08:15 08/16/22 11:49 08/16/22 08:15 08/16/22 13:31 FiO2 21 08/15/22 07:16 Oxygen Flow Rate (L/min) 1.5 Oxygen Delivery Method Nasal Cannula Weight: 151.5 kg Body Mass Index (BMI) 50.8 Intake & Output: Intake and Output for Last 24 Hours 08/14/22 08/15/22 08/16/22 23:59 23:59 23:59 Intake Total 1252.5 / 1252.5 3187.91 / 3187.91 1830.84 / 1830.84 Output Total 150 / 450 575 / 575 Balance 1252.5 / 1252.5 3037.91 / 2737.91 1255.84 / 1255.84 Lab / Micro Data Result Diagrams: 08/16/22 05:40 08/16/22 05:40 Labs: Laboratory Results - last 24 hr 08/15/22 05:55: ESR 20 08/15/22 05:55: Procalcitonin 0.47 H 08/15/22 12:05: C-React Prot Ext Range 67.20 H 08/15/22 16:41: POC Glucose 77 08/15/22 16:50: U Random Total Protein 120.7 H, Urine Creatinine 293.00, Protein/Creatinin Ratio 412 H 08/15/22 21:48: POC Glucose 81 08/16/22 05:40: WBC 11.4 H, RBC 4.06 L, Hgb 12.3, Hct 39.0, MCV 96.1, MCH 30.3, MCHC 31.5 L, RDW Std Deviation 41.7, RDW Coeff of Amirah 11.9, Plt Count 345, MPV 10.7, Immature Gran % (Auto) 2.200 H, Neut % (Auto) 47.1, Lymph % (Auto) 25.1, [place] % (Auto) 18.2 H, Eos % (Auto) 6.6 H, Baso % (Auto) 0.8, Absolute Neuts (auto) 5.4, Absolute Lymphs (auto) 2.86, Nucleated RBC % 0, Differential CommentSCANNED, Diff Path Review June08/16/22 05:40: Sodium 140, Potassium 3.8, Chloride 117 H, Carbon Dioxide 16.0 L, Anion Gap 7, BUN 38 H, Creatinine 3.22 H, Estim Creat Clear Calc 18.27, Est GFR (MDRD) Af Amer 19 L, Est GFR (MDRD) Non-Af 16 L, BUN/Creatinine Ratio 11.8, Glucose 94, Calcium 7.8 L, Magnesium 2.1, Total Bilirubin 0.30, AST 10 L, ALT 11L, Alkaline Phosphatase 96, Total Protein 6.2 L, Albumin 2.3 L, Globulin 3.9, Albumin/Globulin Ratio 0.6 L 08/16/22 05:40: Phosphorus 3.9 08/16/22 06:08: POC Glucose 80 08/16/22 10:59: POC Glucose 83 Micro: Microbiology 08/14/22 19:38 Urine, Catheterized Urine Culture - Final Escherichia coli Escherichia coli#2 08/14/22 19:38 Stool Stool Lactoferrin - Final 08/14/22 19:38 Stool Enteric Bacteriology - Final 08/14/22 19:38 Stool C. difficile DNA Amplification - Final Radiography Diagnostic Testing: Radiology Impression Renal Ultrasound 08/15/22 07:54 IMPRESSION: Normal ultrasound of the kidneys and urinary bladder. Electronically Signed: Vladimir Parsons MD at 21:42 EDT , Physical Exam Narrative Alert and oriented x3, no apparent distress S1, S2, RRR Lung sounds clear anteriorly and posteriorly. No wheezes rhonchi rales noted Abdomen soft, nontender, positive bowel sounds No edema Indwelling Thrasher with clear urine in bag Assessment & Plan Assessment/Plan (1) Acute renal failure: (2) Gastroenteritis: (3) Hypokalemia: (4) History of diabetes mellitus: PLAN: Plan This is a 61 F with past history significant for diabetes mellitus type 2, hypertension, obesity, HONEY on home CPAP who presented to the emergency room 08/14with complaints of fatigue and diarrhea after starting Mounjaro (had been havingdiarrhea/nausea/weight loss for well over a week). Lab work in the emergency room showed creatinine 3.06 mg/dL, potassium 3.4. Patient was admitted for gastroenteritis and LORNE. Nephrology consulted for acute kidney injury. Patientis known to our group from hospital consultation in October 2021 for LORNE and hyperkalemia (K+ 8.8). Patient has never required any [employer]. - LORNE likely secondary to significant intravascular volume depletion with concurrent ARB, diuretic and NSAID use. Also to note patient hypotensive on admission which could also be contributing to LORNE leading to ATN. Serum creatinine 3.06 mg/dL on admission--> 3.71 mg/dL--> today serum creatinine 3.22 mg/dL. At this time there is no acute indication for [employer], no significant hyperkalemia or acidosis necessitating [employer]. Patient was hypovolemic and hypotensive on admission, started on IV fluids and received multiple fluid boluses. Overall volume status has improved. Blood pressure has improved. Recommend continue holding losartan and Lasix. Recommend no NSAIDs, discussed this with patient and her son. Renal ultrasound no hydronephrosis. Okay to remove Thrasher. UA on admission positive nitrite, leukocyte Estrace, 10 occult blood, urine protein 100. Urine sodium was 6. Urine protein creatinine ratio 412 mg/g - Patient quite possibly has CKD stage III. November 20, 2021 creatinine 1.77mg/dL, 08/12/2022 creatinine 1.49 mg/dL. We will follow serum creatinine trajectory. We will also arrange for hospital follow-up at [place] office. - Metabolic acidosis likely secondary to severe diarrhea and LORNE. -History of hypertension; blood pressures controlled/improved. Not on any antihypertensives. - History of diabetes mellitus type 2. A1c 6.5% 08/02/2021. To note patient haslost at least 150 pounds on Trulicity. Trulicity was then switched to Ozempic and Ozempic switched to Mounjaro. Since being on Mounjaro patient has had significant diarrhea for well over a week. - Severe diarrhea/ileus: CT abdomen and pelvis with evidence of ileus, probable left adrenal adenoma, sensitivity limited secondary to lack of contrast usage. C. difficile negative. Started on Bentyl. 08/16/22 1424 <Electronically signed by Cally CROSS> Cosigner Signature (if applicable): 08/17/22 1600 <Electronically signed by Rae Kline MD> CC: ~ Signed [facility] Work Phone: 1(177) 523-635606-24-[address] Knox [facility] August 17, 2022 12:39pm Note Date/Time August 17, 2022 12:3 9pm [facility] Medical Records Department [address] [place] [address] Consultation - Surgical 08/17/22 1232 MR#: [id number] Acct: [id number] Name: MEGGAN ARITA #:[id number] : 1960 61 From: Raysa Knox MD PCP: Dr. Erica Cannon MD Status:AD M IN Location: [facility]3 [id number] Assessment & Plan Assessment/Plan (1) LUQ pain: (2) Epigastric abdominal pain: (3) Acute renal failure: (4) Asymptomatic bacteriuria: (5) Gastroenteritis: PLAN: Plan Did personally review patient's CT abdomen pelvis not see any acute etiology forher abdominal pain. Plan to give patient IV Protonix as this works better than the p.o. Also try some Carafate as pain does seem to fit with gastric etiology with getting betterwith eating. We will continue to monitor patient if pain is not better may consider getting a CT abdomen pelvis with p.o. contrast in the future. Patient was agreeable with plan. Continue antibiotics for UTI per primary. Raysa Knox M.D. Pager: [phone] [facility] [address] [place] [address], [facility] [address] [place] [address] Office: [phone] HPI Consult Data Date of Consult: 08/17/22 HPI Narrative HPI Narrative: MEGGAN ARITA, is a 61 F who admitted due to renal failure, diarrhea. Patienthas been complaining of abdominal pain. When asked her pain she points across her mid abdomen. Patient states the pain came be worse after before eating but seems to be little better before eating and during eating. Patient was also diagnosed with a E. coli UTI which she is currently on antibiotics for. Patient's creatinine is improving. Patient is normally on Protonix daily at home. Patient states her last scope was within the last 5 years. Patient notedher recent diarrhea started with the Mounjaro shot. Patient have a CT abdomen pelvis with no contrast not show any obvious etiology for the abdominal pain. Patient is able to tolerate a diet and still having diarrhea. [facility] Medical History Anemia Anxiety Asthma Chronic respiratory failure with hypoxia and hypercapnia CPAP (continuous positive airway pressure) dependence Hypertension Obesity Sleep apnea Type 2 diabetes mellitus Home Medications albuterol sulfate 2.5 mg/3 mL (0.083 %) solution for nebulization 2.5 mg inhalation Q6HWA.RT PRN Asthma 11/23/12 [History Last Taken 07/31/21 13:00] acetaminophen 325 mg tablet (Tylenol) 650 mg PO Q6H PRN PRN Pain Score 1- 10/Temp> 100.7 F #0 tabs 08/15/21 [Rx Last Taken Unknown] ascorbic acid (vitamin C) 500 mg tablet 500 mg PO BIDCM #0 tabs 08/15/21 [Rx Last Taken Unknown] ferrous sulfate 325 mg (65 mg iron) tablet (FeroSul) 325 mg PO BIDCM #0 tabs 08/15/21 [Rx Last Taken Unknown] diclofenac sodium 1 % topical gel 1 ea topical PRN PRN Pain 11/18/21 [History Last Taken Unknown] omeprazole 40 mg capsule,delayed release 40 mg PO DAILY 11/18/21 [History Last Taken Unknown] acetaminophen 325 mg tablet (Tylenol) 650 mg PO Q4H PRN PRN Fever, pain 1-10/10 #0 tabs 11/20/21 [Rx Last Taken Unknown] furosemide 40 mg tablet (Lasix) 40 mg PO DAILY #1 TAB 11/20/21 [Rx Last Taken Unknown] lorazepam 1 mg tablet 1 mg PO BID PRN PRN Anxiety #5 tabs 11/20/21 [Rx Last Taken Unknown] albuterol sulfate 90 mcg/actuation aerosol inhaler (Ventolin HFA) 2 puff inhalation Q4H PRN shortness of breath or wheezing #18 grams 01/30/22 [Rx Last Taken Unknown] fluticasone propionate 50 mcg/actuation nasal spray,suspension 2 spray DAILY PRNSinus Symptoms #16 grams 01/30/22 [Rx Last Taken Unknown] losartan 50 mg tablet 50 mg PO DAILY 01/30/22 [History Last Taken Unknown] ondansetron HCl 4 mg tablet 4 mg PO PRN PRN Nausea 08/14/22 [History Last Taken Unknown] Allergy/AdvReac Type Severity Reaction Status Date / Time codeine Allergy Nausea/Vom/ Verified 08/14/22 17:59 Diarrhea iodine Allergy Swelling Verified 08/14/22 17:59 latex Allergy Shortness Verified 08/14/22 17:59 of breath meloxicam Allergy Rash Verified 08/14/22 17:59 Penicillins Allergy Shortness Verified 08/14/22 17:59 of breath tositumomab Allergy NEEDS Verified 08/14/22 17:59 FOLLOW-UP hydrocodone bitartrate AdvReac Nausea/Vom/ Verified 08/14/22 17:59 [From Vicodin] Diarrhea prednisone AdvReac Other Verified 08/14/22 17:59 Family History Other Diabetes Heart disease Hypertension Surgical History History of cholecystectomy Previous section Social History Smoking Status: Never smoker substance use type: does not use ROS Constitutional Constitutional: Denies anorexia Eyes Eyes: Denies loss of central vision ENT HEENT: Denies dysphagia Cardiovascular Cardiovascular: Denies chest pain Respiratory/Chest Respiratory/Chest: Denies cough Gastrointestinal Gastrointestinal: Reports abdominal pain and diarrhea; Denies constipation, dysphagia, nausea or vomiting Genitourinary Genitourinary: Denies dysuria Musculoskeletal Musculoskeletal: Denies joint swelling Integumentary Integumentary: Denies jaundice or rash Neurologic Neurologic: Denies focal weakness Psychiatric Psychiatric: Denies anxiety Endocrine Endocrinology: Denies palpitations Hematologic/Lymphatic Hematologic/Lymphatic: Denies easy bleeding Physical Exam Const alert, oriented x3 and no apparent distress Nutritional Appearance: obese HEENT normocephalic and head/scalp atraumatic Neck supple Resp normal respiratory effort Cardio regular rate GI soft to palpation; Negative for non-distended Palpation: tender other (Mostly left upper quadrant, epigastric some in the leftlower quadrant, no peritoneal signs); Negative for guarding Extremity no clubbing, cyanosis or edema Skin no rashes or lesions noted Neuro CN's II-XII intact bilaterally Psych mental status grossly normal Lab / Micro Data Result Diagrams: 08/17/22 06:40 08/17/22 06:40 Labs: Laboratory Results - last 24 hr 08/16/22 05:40: Diff Path Review Reviewed 08/16/22 05:40: Lipase 08/16/22 16:20: POC Glucose 81 08/16/22 21:17: POC Glucose 80 08/17/22 06:40: WBC 9.9, RBC 4.02 L, Hgb 12.0, Hct 39.1, MCV 97.3, MCH 29.9, MCHC 30.7 L, RDW Std Deviation 43.6, RDW Coeff of Amirah 12.0, Plt Count 331, MPV 10.7, Immature Gran % (Auto) 3.300 H, Neut % (Auto) 26.5 L, Lymph % (Auto) 35.9,[place] % (Auto) 22.2 H, Eos % (Auto) 11.0 H, Baso % (Auto) 1.1 H, Absolute Neuts (auto) 2.6, Absolute Lymphs (auto) 3.55, Nucleated RBC % 0.2, Differential Comment SCANNED, Reactive Lymphocytes 1+ 08/17/22 06:40: Sodium 144, Potassium 4.1, Chloride 123 H, Carbon Dioxide 17.0 L, Anion Gap 4 L, BUN 31 H, Creatinine 2.23 H, Estim Creat Clear Calc 26.39, Est GFR (MDRD) Af Amer 29 L, Est GFR (MDRD) Non-Af 24 L, BUN/Creatinine Ratio 13.9, Glucose 91, Calcium 7.6 L, Total Bilirubin 0.30, AST 10 L, ALT 11 L, Alkaline Phosphatase 83, Total Protein 5.5 L, Albumin 2.0 L, Globulin 3.5, Albumin/Globulin Ratio 0.6 L 08/17/22 06:52: POC Glucose 88 08/17/22 11:28: POC Glucose 78 Micro: Microbiology 08/14/22 19:38 Urine, Catheterized Urine Culture - Final Escherichia coli Escherichia coli#2 Charges/Coding Visit Charges Inpatient E&M: 17016 Subs Hosp L3 08/17/22 1239 <Electronically signed by Raysa Knox MD> Cosigner Signature (if applicable): CC: Dr. Ammy Agarwal MD; Dr. Sam Perez MD; Dr. Erica Cannon MD; Dr. Lisa Mendoza MD; Dr. Raysa Knox MD~ Signed [facility] Work Phone: [phone]) 922-789306-24-[address] Hamm [facility] August 17, 2022 10:03am Note Date/Time August 17, 2022 6:27 am [facility] Medical Records Department [address] [place] [address] Progress Note - Hospitalist 08/17/22626 MR#: [id number] Acct: [id number] Name: MEGGAN ARITA Rep #:[id number] : 1960 61 From: Winter Hamm MD PCP: Dr. Erica Cannon MD Status:AD M IN Location: [place] [address] Reason for Visit Reason for Visit: Diagnoses Morbid (severe) obesity with alveolar hypoventilation (08/14/22) Hypokalemia (08/14/22) Noninfective gastroenteritis and colitis, unspecified (08/14/22) Acute kidney failure, unspecified (08/14/22) Bacteriuria (08/14/22) Personal history of other endocrine, nutritional and metabolic disease (08/14/22) Subjective Subjective With still pursed life notable diarrhea overnight although had less in the day prior with some pulsed dose of loperamide. She states abdominal pain has lessened with Bentyl addition but still complaining of some discomfort which is now primarily in the right upper quadrant and epigastric region. She denies anyfurther nausea or emesis and is tolerating a diet. Patient denies fevers, chills, chest pain or dyspnea. Objective Data Objective Data Vital Signs: Vital Signs Temp Pulse Resp BP Pulse Ox O2 Del Method O2 Flow Rate 98.2 F 96 18 109/45 L 100 Room Air 1.5 08/17/22 02:15 08/17/22 02:15 08/17/22 02:15 08/17/22 02:15 08/17/22 02:15 08/17/22 02:15 08/16/22 13:31 FiO2 21 08/15/22 07:16 Oxygen Flow Rate (L/min) 1.5 Oxygen Delivery Method Room Air Weight: 334 lb 0.005 oz Body Mass Index (BMI) 50.8 Intake & Output: Intake and Output for Last 24 Hours 08/15/22 08/16/22 08/17/22 23:59 23:59 23:59 Intake Total 3187.91 / 3187.91 2622.51 / 2622.51 1037.08 / 1037.08 Output Total 150 / 450 850 / 1200 350 / 350 Balance 3037.91 / 2737.91 1772.51 / 1422.51 687.08 / 687.08 Lab / Micro Data Result Diagrams: 08/17/22 06:40 08/17/22 06:40 Labs: Laboratory Results - last 24 hr 08/16/22 05:40: Diff Path Review Reviewed 08/16/22 05:40: Sodium 140, Potassium 3.8, Chloride 117 H, Carbon Dioxide 16.0 L, Anion Gap 7, BUN 38 H, Creatinine 3.22 H, Estim Creat Clear Calc 18.27, Est GFR (MDRD) Af Amer 19 L, Est GFR (MDRD) Non-Af 16 L, BUN/Creatinine Ratio 11.8, Glucose 94, Calcium 7.8 L, Magnesium 2.1, Total Bilirubin 0.30, AST 10 L, ALT 11L, Alkaline Phosphatase 96, Total Protein 6.2 L, Albumin 2.3 L, Globulin 3.9, Albumin/Globulin Ratio 0.6 L 08/16/22 05:40: Phosphorus 3.9 08/16/22 06:08: POC Glucose 80 08/16/22 10:59: POC Glucose 83 08/16/22 16:20: POC Glucose 81 08/16/22 21:17: POC Glucose 80 Micro: Microbiology 08/14/22 19:38 Urine, Catheterized Urine Culture - Final Escherichia coli Escherichia coli#2 08/14/22 19:38 Stool Stool Lactoferrin - Final 08/14/22 19:38 Stool Enteric Bacteriology - Final 08/14/22 19:38 Stool C. difficile DNA Amplification - Final Physical Exam Narrative Physical Examination: General: Awake, alert, oriented x 3 and cooperative, seated upright in the medical surgical bed, fatigued but improved appearance from day prior. Skin: Normal color, normal turgor, no icterus, no cyanosis. HEENT: AT/NC, EOMI, PERRLA, improved MMM. Lungs: Diminished, greater bases, distant breath sounds likely secondary to habitus, no rales, ronchi or wheezing. Heart: Regular rate and rhythm; no gallop, rub audible. Abdomen: Soft, morbidly obese, primarily now discomfort in the right upper quadrant and epigastric region with no marked rebound or guarding, still mildly hyperactive BS, difficult to assess distention given habitus. Extremities: No cyanosis, no clubbing, chronic bilateral lower extremity lymphedema. Neurological: Patient awake, alert, oriented as noted, cognitive function intact; pupils equally reactive to light and accommodation, cranial nerves II-XII grossly normal, moving all 4 extremities, no focal deficits, strength moderately globally decreased, improving. Psychiatric: Affect appears flat, fatigued, improved appearance however comparedto day prior, no acute evidence of depressive or anxiety feelings. Assessment & Plan Assessment/Plan (1) Acute renal failure: PLAN: Plan The patient is a 61 y/o F w/ PMHx: Morbid obesity, Diabetes mellitus type II, HONEY on CPAP, HTN, HLD who presents to the [facility] ED on 08/14/22 with history of increasing fatigue, malaise, significant diarrhea since initiation on Mounjaro with outpatient labs with notable creatinine rise 3.06 prompting ED evaluation recommendation. #1. Severe diarrhea/ileus: CT abdomen and pelvis with evidence of ileus, probable left adrenal adenoma, sensitivity limited secondary to lack of contrastusage. Stool lactoferrin positive, negative enteric pathogen panel, negative C. difficile PCR, stool calprotectin pending. Blood culture x2 pending. Continue hydration, electrolytes upon presentation with admission potassium 3.4 and magnesium 1.3, supplemented with correction, TSH 3.01, cortisol and catecholamines secondary to concern for adrenal incidentaloma obtained with cortisol 19.40/plasma total catecholamines pending; however, suspect patient's diarrhea secondary to recent Mounjaro initiation as diarrhea started immediatelyfollowing this medication usage, will continue to hold, monitor I's and O's, patient had been initiated on meropenem secondary to concerns for mild WBC elevation with increased CRP and ESR as well as mild procalcitonin elevation. 08/17/2022 given ongoing diarrhea and abdominal discomfort (RUQ/epigastric region, s/p cholecystectomy prior of note) discussed case with general surgery and at this time we will transition to IV PPI, discontinue meropenem, obtain lipase and will await their evaluation for consideration of reimaging potentially with oral contrast pending further renal function improvement. We will continue Bentyl as this is seem to improve symptoms somewhat as well as pulse dose loperamide if necessary. #2. Acute kidney injury on suspected CKD stage IIIb: Secondary to GI losses with significant diarrhea, potentially associated with recent transition from Ozempic switch to Mounjaro with notable intravascular volume depletion as well as concurrent usage of ARB/diuretic and NSAID, admission BUN/Cr 28/3.06, prior baseline creatinine noted to be 1.4-1.7. Patient judiciously hydrated, nephrotoxic medications held, Renal ultrasound normal. Urine osmolality 311, urine sodium 6, urine creatinine 293, nephrology consulted and following. 08/16/2022 BUN/creatinine 38/3.22-> 08/17/2022 BUN/Reynolds 31/2.23, continues to significantly improve. Thrasher catheter placed upon presentation and as clinically improves will discontinue. UA on admission with nitrate and leukocyte esterase as well as 10 occult blood, urine protein 100 however urine culture unremarkable. We will continue to hold Mounjaro given nephrology high suspicions. Given renal function continues to improve and hyperchloremia we will hold on fluids as oral intake is appropriate however if diarrhea more marked despite further evaluation #1 May need to restart, will await surgery evaluation. #3. Leukocytosis, unclear significance: Patient upon presentation with mild leukocytosis but this was certainly in the setting of significant diarrhea, noted prior evaluation concerns with BP 08/15/2022, worsening clinical evaluation aswell as CT scan unfortunately unable to be obtained secondary to lack of contrast inflammatory markers were obtained with ESR 20, CRP 67.20, procalcitonin 0.47 with blood culture x2 with no growth noted to date. Given these findings patient previously had been initiated on IV meropenem, discussed current presentation with general surgery as patient is not significantly improved and will discontinue at this time pending further evaluation by them. #4. Asymptomatic bacteriuria: Patient with abnormal urinalysis in the ED, urinepyorrhea normal, received Rocephin IV x1, urine culture not marked appearing, UTI ruled out. #5. Electrolyte disturbances with hypokalemia, hyperchloremia, hypomagnesemia: Admission K+ 3.4, magnesium 1.3 with supplementation administered, supplementation given. 08/16/2022 potassium 3.8, magnesium 2.1, corrected-> 08/17/2022 potassium 4.1, chloride 123. Had been aggressively hydrated secondaryto LORNE, tolerating appropriate oral intake thus will trial off IV fluids especially given hyperchloremia. #6. Diabetes mellitus type II: 08/02/2021 hemoglobin A1c 6.5%, holding regimen, diarrhea possibly secondary to recent switch to Mounjaro as noted, ADA diet, accu checks w/ ISS. #7. Hypertension: Patient BP upon presentation mildly low and acute kidney injury therefore patient's Lasix as well as losartan held, 08/17/2022 BP improving however renal function still elevated above baseline, once diarrhea isresolved and LORNE also resolved would plan to resume hypertensive regimen as ablehowever in the interim will initiate low-dose Norvasc, as needed IV hydralazine in interim. #8. Hyperlipidemia: Not on regimen, defer to outpatient. #9. Anxiety: We will cautiously continue patient Ativan home regimen. #10. Morbid Obesity: Weight loss and lifestyle changes encouraged. #11. GERD: Maintained on PPI. #12. HONEY: CPAP nightly. #13. DVT prophylaxis: Heparin. #14. CODE STATUS: Full code. Admission Evaluation Time spent evaluating chart, patient history, patient evaluation, care planning and discussion with specialists: 35 minutes. Charges/Coding Visit Charges Inpatient E&M: 25018 Subs Hosp L2 08/17/22 1003 <Electronically signed by Winter Hamm MD> Cosigner Signature (if applicable): CC: ~ Signed [facility] Work Phone: [phone]) 860-769706-23-[address] Hamm [facility] August 16, 2022 2:07pm Note Date/Time August 16, 2022 7:24 am [facility] Medical Records Department [address] [place] [id number] Progress Note - Hospitalist 08/16/22722 MR#: [id number] Acct: [id number] Name: KENNETH ARITAA Roya Rep #:[id number] : 1960 61 From: Winter Hamm MD PCP: Dr. Erica Cannon MD Status:AD M IN Location: [place] [address] Reason for Visit Reason for Visit: Diagnoses Morbid (severe) obesity with alveolar hypoventilation (08/14/22) Hypokalemia (08/14/22) Noninfective gastroenteritis and colitis, unspecified (08/14/22) Acute kidney failure, unspecified (08/14/22) Bacteriuria (08/14/22) Personal history of other endocrine, nutritional and metabolic disease (08/14/22) Subjective Subjective Patient with notable diarrhea through the evening although lessened this a.m. with additionally onset of nausea requesting pain medication. She describes herabdominal discomfort as cramping in nature and diffuse, 3-4 out of 10 in severity. This morning she is fatigued and notes she did not sleep well secondary to diarrhea. Reviewed current labs which include negative C. difficile, negative enteric, unremarkable urine culture, pending blood culture x2 with ongoing IV meropenem with no evidence of any fevers with improving renalfunction. Patient denies fevers, chills, chest pain or dyspnea. Objective Data Objective Data Vital Signs: Vital Signs Temp Pulse Resp BP Pulse Ox O2 Del Method FiO2 98.2 F 82 18 117/52 L 95 Room Air 21 08/16/22 05:00 08/16/22 05:00 08/16/22 05:00 08/16/22 05:00 08/16/22 05:00 08/16/22 05:00 08/15/22 07:16 Oxygen Delivery Method Room Air Weight: 334 lb 0.005 oz Body Mass Index (BMI) 50.8 Intake & Output: Intake and Output for Last 24 Hours 08/14/22 08/15/22 08/16/22 23:59 23:59 23:59 Intake Total 1252.5 / 1252.5 3187.91 / 3187.91 935.42 / 935.42 Output Total 150 / 450 300 / 300 Balance 1252.5 / 1252.5 3037.91 / 2737.91 635.42 / 635.42 Lab / Micro Data Result Diagrams: 08/16/22 05:40 08/16/22 05:40 Labs: Laboratory Results - last 24 hr 08/15/22 05:55: Diff Path Review Reviewed 08/15/22 05:55: Cortisol 19.40 08/15/22 05:55: ESR 20 08/15/22 05:55: Procalcitonin 0.47 H 08/15/22 11:22: POC Glucose 88 08/15/22 11:37: Ur Random Sodium 6, Urine Creatinine 437.00, Urine Potassium 23.0, Urine Chloride 25, Urine Urea Nitrogen 175 08/15/22 11:37: Urine Osmolality 311 08/15/22 12:05: Sodium 139, Potassium 3.8, Chloride 115 H, Carbon Dioxide 19.0 L, Anion Gap 5, BUN 35 H, Creatinine 3.71 H, Estim Creat Clear Calc 15.86, Est GFR (MDRD) Af Amer 16 L, Est GFR (MDRD) Non-Af 13 L, BUN/Creatinine Ratio 9.4 L,Glucose 91, Calcium 7.9 L 08/15/22 12:05: C-React Prot Ext Range 67.20 H 08/15/22 16:41: POC Glucose 77 08/15/22 16:50: U Random Total Protein 120.7 H, Urine Creatinine 293.00, Protein/Creatinin Ratio 412 H 08/15/22 21:48: POC Glucose 81 08/16/22 05:40: WBC 11.4 H, RBC 4.06 L, Hgb 12.3, Hct 39.0, MCV 96.1, MCH 30.3, MCHC 31.5 L, RDW Std Deviation 41.7, RDW Coeff of Amirah 11.9, Plt Count 345, MPV 10.7, Immature Gran % (Auto) 2.200 H, Neut % (Auto) 47.1, Lymph % (Auto) 25.1, [place] % (Auto) 18.2 H, Eos % (Auto) 6.6 H, Baso % (Auto) 0.8, Absolute Neuts (auto) 5.4, Absolute Lymphs (auto) 2.86, Nucleated RBC % 0, Differential CommentSCANNED, Diff Path Review June08/16/22 05:40: Sodium 140, Potassium 3.8, Chloride 117 H, Carbon Dioxide 16.0 L, Anion Gap 7, BUN 38 H, Creatinine 3.22 H, Estim Creat Clear Calc 18.27, Est GFR (MDRD) Af Amer 19 L, Est GFR (MDRD) Non-Af 16 L, BUN/Creatinine Ratio 11.8, Glucose 94, Calcium 7.8 L, Magnesium 2.1, Total Bilirubin 0.30, AST 10 L, ALT 11L, Alkaline Phosphatase 96, Total Protein 6.2 L, Albumin 2.3 L, Globulin 3.9, Albumin/Globulin Ratio 0.6 L 08/16/22 05:40: Phosphorus 3.9 08/16/22 06:08: POC Glucose 80 Micro: Microbiology 08/14/22 19:38 Urine, Catheterized Urine Culture - Preliminary GNR lactose handbag parts cutter Gram negative haven 08/14/22 19:38 Stool Stool Lactoferrin - Final 08/14/22 19:38 Stool Enteric Bacteriology - Final 08/14/22 19:38 Stool C. difficile DNA Amplification - Final Radiography Diagnostic Testing: Radiology Impression Renal Ultrasound 08/15/22 07:54 IMPRESSION: Normal ultrasound of the kidneys and urinary bladder. Electronically Signed: Vladimir Parsons MD at 21:42 EDT Reading Location ID and State: [address] [place] [address] , Service support , Physical Exam Narrative Physical Examination: General: Awake, alert, oriented x 3 and cooperative, seated upright in the medical surgical bed, fatigued and mildly ill-appearing. Skin: Normal color, normal turgor, no icterus, no cyanosis. HEENT: AT/NC, EOMI, PERRLA, moderately dry MM. Lungs: Diminished, greater bases, distant breath sounds likely secondary to habitus, no rales, ronchi or wheezing. Heart: Currently regular rate and rhythm; no gallop, rub audible. Abdomen: Soft, generalized discomfort with palpation with no rebound or guarding, difficult to assess distention given habitus, mildly hyperactive bowelsounds. Extremities: No cyanosis, no clubbing, chronic bilateral lower extremity lymphedema. Neurological: Patient awake, alert, oriented as noted, cognitive function intact; pupils equally reactive to light and accommodation, cranial nerves II-XII grossly normal, moving all 4 extremities, no focal deficits, strength moderatelyto severely global decrease secondary to acute presentation. Psychiatric: Affect appears flat, fatigued, ill-appearing, no acute evidence of depressive or anxiety feelings. Assessment & Plan Assessment/Plan (1) Acute renal failure: PLAN: Plan The patient is a 61 y/o F w/ PMHx: Morbid obesity, Diabetes mellitus type II, HONEY on CPAP, HTN, HLD who presents to the [facility] ED on 08/14/22 with history of increasing fatigue, malaise, significant diarrhea since initiation on Mounjaro with outpatient labs with notable creatinine rise 3.06 prompting ED evaluation recommendation. #1. Severe diarrhea/ileus: CT abdomen and pelvis with evidence of ileus, probable left adrenal adenoma, sensitivity limited secondary to lack of contrastusage. Stool lactoferrin positive, negative enteric pathogen panel, negative C. difficile PCR, stool calprotectin pending. Blood culture x2 pending. Continue hydration, electrolytes upon presentation with admission potassium 3.4 and magnesium 1.3, supplemented with correction, TSH 3.01, cortisol and catecholamines secondary to concern for adrenal incidentaloma obtained with cortisol 19.40/plasma total catecholamines pending; however, suspect patient's diarrhea secondary to recent Mounjaro initiation as diarrhea started immediately following this medication usage, will continue to hold, monitor I's and O's, currently maintained on meropenem and PPI. Ova and parasite is pending. AddingBentyl to assist with abdominal cramping and discomfort. If ongoing persistent discomfort or worsening status may need to consider reimaging or may consider surgery involvement. #2. Acute kidney injury on suspected CKD stage IIIb: Secondary to GI losses with significant diarrhea, potentially associated with recent transition from Ozempic switch to Mounjaro with notable intravascular volume depletion as well as concurrent usage of ARB/diuretic and NSAID, admission BUN/Cr 28/3.06, prior baseline creatinine noted to be 1.4-1.7. Patient judiciously hydrated, nephrotoxic medications held, Renal ultrasound normal. Urine osmolality 311, urine sodium 6, urine creatinine 293, nephrology consulted and following. 08/16/2022 BUN/creatinine 38/3.22, will continue to trend. Thrasher catheter placedupon presentation. UA on admission with nitrate and leukocyte esterase as well as 10 occult blood, urine protein 100 however urine culture unremarkable. We will continue to hold Mounjaro given nephrology high suspicions. #3. Leukocytosis, unclear significance, bands noted on Jazmyn Path review and additionally noted monocytosis, BP 08/15/2022 mildly trended down, given mild worsening appearance and CT scan unfortunately unable to be obtained secondary to lack of contrast inflammatory markers were obtained with ESR 20, CRP 67.20, procalcitonin 0.47 with blood culture x2 initiated and pending with given penicillin allergy IV meropenem initiated, if cultures remain negative #4. Asymptomatic bacteriuria: Patient with abnormal urinalysis in the ED, urinepyorrhea normal, received Rocephin IV x1, urine culture not marked appearing, UTI ruled out. #5. Hypokalemia: Admission K+ 3.4, magnesium 1.3 with supplementation administered, supplementation given. 08/16/2022 potassium 3.8, magnesium 2.1, corrected. #6. Diabetes mellitus type II: 08/02/2021 hemoglobin A1c 6.5%, holding regimen, diarrhea possibly secondary to recent switch to Mounjaro as noted, ADA diet, accu checks w/ ISS. #7. Hypertension: Patient BP upon presentation mildly low and acute kidney injury therefore patient's Lasix as well as losartan held, resume once clinically appropriate, as needed IV hydralazine in interim. #8. Hyperlipidemia: Not on regimen, defer to outpatient. #9. Anxiety: We will cautiously continue patient Ativan home regimen. #10. Morbid Obesity: Weight loss and lifestyle changes encouraged. #11. GERD: Maintained on PPI. #12. HONEY: CPAP nightly. #13. DVT prophylaxis: Heparin. #14. CODE STATUS: Full code. Admission Evaluation Time spent evaluating chart, patient history, patient evaluation, care planning and discussion with specialists: 50 minutes. Charges/Coding Visit Charges Inpatient E&M: 31855 Subs Hosp L3 08/16/22 1407 <Electronically signed by Winter Hamm MD> Cosigner Signature (if applicable): CC: ~ Signed [facility] Work Phone: [phone]) 997-853006-23-2023 Consult note Author Rae Kline [facility] August 16, 2022 11:43am Note Date/Time August 15, 2022 3:17 pm [facility] Medical Records Department [address] [place] [address] Consultation - Nephrology 08/15/22 1457 MR#: [id number] Acct: [id number] Name: MEGGAN ARITA Rep #:[id number] : 1960 61 From: Cally kam [employer] PCP: Dr. Erica Cannon MD Status:AD M IN [id number] Assessment & Plan Assessment/Plan (1) Acute renal failure: (2) Gastroenteritis: (3) Hypokalemia: (4) History of diabetes mellitus: PLAN: Plan This is a 61 F with past history significant for diabetes mellitus type 2, hypertension, obesity, HONEY on home CPAP who presented to the emergency room 08/14with complaints of fatigue and diarrhea after starting Mounjaro. Lab work in the emergency room showed creatinine 3.06 mg/dL, potassium 3.4. Patient was admitted for gastroenteritis and LORNE. Nephrology consulted for acute kidney injury. Patient is known to our group from hospital consultation in October 2021 for LORNE and hyperkalemia (K+ 8.8). Patient has never required any VAT HOUSE [employer]ORER. [place] patient has lost at least 150 pounds on Trulicity. Trulicity was then switched to Ozempic and Ozempic switched to Mounjaro. Since being on Mounjaro patient has had significant diarrhea for well over a week. LORNE likely secondaryto significant intravascular volume depletion with concurrent ARB, diuretic and NSAID use. Also to note patient hypotensive on admission which could also be contributing to LORNE leading to ATN. Serum creatinine 3.06 mg/dL on admission, today her creatinine is 3.71 mg/dL. At this time there is no acute indication for VAT [employer], no significant hyperkalemia or acidosis. Patient is hypovolemic and recommend to continue with IV fluids as ordered. She has also received fluid boluses. Recommend continue holding losartan and Lasix. Recommend no NSAIDs. Renal ultrasound pending. Patient to have Thrasher catheter placed today. UA on admission positive nitrite, leukocyte Estrace, 10 occult blood, urine protein 100. Urine sodium was 6. She is on meropenem. Patient quite possibly has CKD stage III. November 20, 2021 creatinine 1.77 mg/dL, 08/12/2022 creatinine 1.49 mg/dL. We will check urine protein creatinine ratio. Baseline creatinine is unknown. We will follow serum creatinine trajectory. Discussed nephrology planwith patient, her boyfriend and son who are at bedside. Discussed hopefully with volume expansion, avoiding nephrotoxic agents and improving blood pressureshopefully renal function improves but also aware should renal function continue to worsen patient may need VAT HOU[employer]ER. Questions were answered. Labs ordered for a.m. Hypokalemia likely secondary to diarrhea and poor oral intake, resolved. Further orders forthcoming as hospitalization evolves, thank you for allowing usto participate in the care of Ms. Arita. HPI Consult Data Date of Consult: 08/15/22 HPI Narrative HPI Narrative: MEGGAN ARITA, is a 61 F with past history significant for diabetes mellitus type 2, hypertension, obesity, HONEY on home CPAP who presented to the emergency room 08/14 with complaints of fatigue and diarrhea. Lab work in the emergency room showed creatinine 3.06 mg/dL, potassium 3.4. Patient was admitted for gastroenteritis and LORNE. Nephrology consulted for acute kidney injury. Patientis known to our group from consultation back in October 2021 for LORNE and hyperkalemia. Back in October 2021 LORNE was secondary to UTI, poor oral intakewith concurrent use of Lasix, Bactrim and NSAIDs. Hyperkalemia secondary to AKIand Bactrim with potassium of 8.8, with EKG changes including wide-complex QRS. Potassium levels improved with medical treatment which included calcium, insulin, dextrose and IV fluids. Patient never required any [employer]. Today patient reports that she has had well over 100 pound weight loss since October 2021. She had been on Trulicity, then switched to Ozempic, now recently on Mounjaro. Patient reports since starting Mounjaro she has had daily diarrhea with nausea and poor oral intake for at least over 8 days. Patient reports despite feeling unwell she continued to take her medications which included Lasix and losartan. Patient also reports she has been taking ibuprofendaily for generalized pain. Patient denies noting any recent hematuria. No rash. No arthralgias. [facility] Medical History Anemia Anxiety Asthma Chronic respiratory failure with hypoxia and hypercapnia CPAP (continuous positive airway pressure) dependence Hypertension Obesity Sleep apnea Type 2 diabetes mellitus Home Medications albuterol sulfate 2.5 mg/3 mL (0.083 %) solution for nebulization 2.5 mg inhalation Q6HWA.RT PRN Asthma 11/23/12 [History Last Taken 07/31/21 13:00] acetaminophen 325 mg tablet (Tylenol) 650 mg PO Q6H PRN PRN Pain Score 1- 10/Temp> 100.7 F #0 tabs 08/15/21 [Rx Last Taken Unknown] ascorbic acid (vitamin C) 500 mg tablet 500 mg PO BIDCM #0 tabs 08/15/21 [Rx Last Taken Unknown] ferrous sulfate 325 mg (65 mg iron) tablet (FeroSul) 325 mg PO BIDCM #0 tabs 08/15/21 [Rx Last Taken Unknown] diclofenac sodium 1 % topical gel 1 ea topical PRN PRN Pain 11/18/21 [History Last Taken Unknown] omeprazole 40 mg capsule,delayed release 40 mg PO DAILY 11/18/21 [History Last Taken Unknown] acetaminophen 325 mg tablet (Tylenol) 650 mg PO Q4H PRN PRN Fever, pain 1-10 #0 tabs 11/20/21 [Rx Last Taken Unknown] furosemide 40 mg tablet (Lasix) 40 mg PO DAILY #1 TAB 11/20/21 [Rx Last Taken Unknown] lorazepam 1 mg tablet 1 mg PO BID PRN PRN Anxiety #5 tabs 11/20/21 [Rx Last Taken Unknown] albuterol sulfate 90 mcg/actuation aerosol inhaler (Ventolin HFA) 2 puff inhalation Q4H PRN shortness of breath or wheezing #18 grams 01/30/22 [Rx Last Taken Unknown] fluticasone propionate 50 mcg/actuation nasal spray,suspension 2 spray DAILY PRNSinus Symptoms #16 grams 01/30/22 [Rx Last Taken Unknown] losartan 50 mg tablet 50 mg PO DAILY 01/30/22 [History Last Taken Unknown] ondansetron HCl 4 mg tablet 4 mg PO PRN PRN Nausea 08/14/22 [History Last Taken Unknown] Allergy/AdvReac Type Severity Reaction Status Date / Time codeine Allergy Nausea/Vom/ Verified 08/14/22 17:59 Diarrhea iodine Allergy Swelling Verified 08/14/22 17:59 latex Allergy Shortness Verified 08/14/22 17:59 of breath meloxicam Allergy Rash Verified 08/14/22 17:59 Penicillins Allergy Shortness Verified 08/14/22 17:59 of breath tositumomab Allergy NEEDS Verified 08/14/22 17:59 FOLLOW-UP hydrocodone bitartrate AdvReac Nausea/Vom/ Verified 08/14/22 17:59 [From Vicodin] Diarrhea prednisone AdvReac Other Verified 08/14/22 17:59 Family History Other Diabetes Heart disease Hypertension Surgical History History of cholecystectomy Previous section Social History Smoking Status: Never smoker substance use type: does not use ROS ROS Narrative As in HPI and past medical history Physical Exam Narrative Alert and oriented x3, no apparent distress S1, S2, RRR Lung sounds clear anteriorly and posteriorly. No wheezes rhonchi rales noted Abdomen soft, nontender, positive bowel sounds No edema Lab / Micro Data Result Diagrams: 08/15/22 05:55 08/15/22 12:05 Labs: Laboratory Results - last 24 hr 08/14/22 18:18: WBC 10.2, RBC 5.00, Hgb 15.0, Hct 48.9 H, MCV 97.8, MCH 30.0, MCHC 30.7 L, RDW Std Deviation 42.5, RDW Coeff of Amirah 11.8, Plt Count 414, MPV 10.9, Immature Gran % (Auto) 2.000 H, Neut % (Auto) 43.0 L, Lymph % (Auto) 31.3,[place] % (Auto) 17.5 H, Eos % (Auto) 4.9, Baso % (Auto) 1.3 H, Absolute Neuts (auto) 4.4, Absolute Lymphs (auto) 3.19, Nucleated RBC % 0, Differential CommentSCANNED 08/14/22 18:18: Sodium 137, Potassium 3.4 L, Chloride 108 H, Carbon Dioxide 16.0L, Anion Gap 13, BUN 28 H, Creatinine 3.06 H, Est GFR (MDRD) Af Amer 20 L, Est GFR (MDRD) Non-Af 16 L, BUN/Creatinine Ratio 9.2 L, Glucose 146 H, Calcium 8.5, Total Bilirubin 0.40, Direct Bilirubin 0.16, AST 10 L, ALT 12 L, Alkaline Phosphatase 112, Total Protein 7.2, Albumin 2.6 L, Globulin 4.6 H 08/14/22 19:38: Urine Color Yellow, Urine Clarity Cloudy, Urine pH 5.0, Ur Specific [place] 1.030, Urine Protein 100 H, Urine Glucose (UA) 50 H, Urine Ketones 5 H, Urine Occult Blood 10 H, Urine Nitrite Positive H, Urine Bilirubin 3 H, Urine Urobilinogen 1 H, Ur Leukocyte Esterase 25 H, Urine RBC 0-5 SEEN, Urine WBC 0-5 SEEN, Ur Squamous Epith Cells 0-5 SEEN, Urine Bacteria 2+, Urine Mucus 0 SEEN 08/15/22 05:55: WBC 12.8 H, RBC 4.36, Hgb 13.2, Hct 42.2, MCV 96.8, MCH 30.3, MCHC 31.3 L, RDW Std Deviation 42.4, RDW Coeff of Amirah 11.8, Plt Count 341, MPV 11.0, Immature Gran % (Auto) 1.000 H, Neut % (Auto) 40.2 L, Lymph % (Auto) 30.5,[place] % (Auto) 19.2 H, Eos % (Auto) 8.3 H, Baso % (Auto) 0.8, Absolute Neuts (auto) 5.2, Absolute Lymphs (auto) 3.91, Nucleated RBC % 0, Differential CommentSCANNED, Diff Path Review Reviewed 08/15/22 05:55: Sodium 139, Potassium 3.7, Chloride 113 H, Carbon Dioxide 18.0 L, Anion Gap 8, BUN 32 H, Creatinine 3.58 H, Estim Creat Clear Calc 16.44, Est GFR (MDRD) Af Amer 17 L, Est GFR (MDRD) Non-Af 14 L, BUN/Creatinine Ratio 8.9 L,Glucose 91, Calcium 7.7 L, Magnesium 1.3 L, TSH 3.01 08/15/22 05:55: Cortisol 19.40 08/15/22 05:55: ESR 20 08/15/22 05:55: Procalcitonin 0.47 H 08/15/22 06:34: POC Glucose 93 08/15/22 11:22: POC Glucose 88 08/15/22 11:37: Ur Random Sodium 6, Urine Creatinine 437.00, Urine Potassium 23.0, Urine Chloride 25, Urine Urea Nitrogen 175 08/15/22 11:37: Urine Osmolality 311 08/15/22 12:05: Sodium 139, Potassium 3.8, Chloride 115 H, Carbon Dioxide 19.0 L, Anion Gap 5, BUN 35 H, Creatinine 3.71 H, Estim Creat Clear Calc 15.86, Est GFR (MDRD) Af Amer 16 L, Est GFR (MDRD) Non-Af 13 L, BUN/Creatinine Ratio 9.4 L,Glucose 91, Calcium 7.9 L 08/15/22 12:05: C-React Prot Ext Range 67.20 H Micro: Microbiology 08/14/22 19:38 Urine, Catheterized Urine Culture - Preliminary GNR lactose handbag parts cutter Gram negative haven 08/14/22 19:38 Stool Stool Lactoferrin - Final 08/14/22 19:38 Stool Enteric Bacteriology - Final 08/14/22 19:38 Stool C. difficile DNA Amplification - Final Radiology Impression Abdomen/Pelvis CT 08/14/22 19:07 IMPRESSION: Ileus. Probable left adrenal adenoma. Sensitivity limited without IV and oral contrast. Electronically Signed: Vladimir Parsons MD at 20:24 EDT Reading Location ID and State: [facility] / [place] , Service support , 08/15/22 1517 <Electronically signed by Cally CROSS> Cosigner Signature (if applicable): 08/16/22 1143 <Electronically signed by Rae Kline MD> CC: Dr. Ammy Agarwal MD; Dr. Sam Perez MD; Dr. Erica Cannon MD; Dr. Lisa Mendoza MD~ Signed [facility] Work Phone: 1(884) 112-936206-22-[address] Mendoza [facility] August 15, 2022 2:07pm Note Date/Time August 15, 2022 7:55 am [facility] Medical Records Department [address] [place] [id number] Progress Note - Hospitalist 08/15/22 0748 MR#: [id number] Acct: [id number] Name: MEGGAN ARITA Rep #:[id number] : 1960 61 From: Lisa Mendoza MD PCP: Dr. Erica Cannon MD Status:AD M IN Location: [place] [id number] Reason for Visit Reason for Visit: Diagnoses Hypokalemia (08/14/22) Noninfective gastroenteritis and colitis, unspecified (08/14/22) Acute kidney failure, unspecified (08/14/22) Bacteriuria (08/14/22) Personal history of other endocrine, nutritional and metabolic disease (08/14/22) Subjective Subjective Reports feeling generally unwell today, has had suboptimal urine output, has hadmore diarrhea Objective Data Objective Data Vital Signs: Vital Signs Temp Pulse Resp BP Pulse Ox O2 Del Method FiO2 97.9 F 84 18 130/93 H 94 CPAP 21 08/15/22 04:30 08/15/22 04:30 08/15/22 04:30 08/15/22 04:30 08/15/22 07:16 08/15/22 07:16 08/15/22 07:16 Oxygen Delivery Method CPAP Weight: 151.5 kg Body Mass Index (BMI) 50.8 Intake & Output: Intake and Output for Last 24 Hours 08/13/22 08/14/22 08/15/22 23:59 23:59 23:59 Intake Total 1252.5 / 1252.5 970.83 / 970.83 Balance 1252.5 / 1252.5 970.83 / 970.83 Lab / Micro Data Result Diagrams: 08/15/22 05:55 08/15/22 12:05 Labs: Laboratory Results - last 24 hr 08/14/22 18:18: WBC 10.2, RBC 5.00, Hgb 15.0, Hct 48.9 H, MCV 97.8, MCH 30.0, MCHC 30.7 L, RDW Std Deviation 42.5, RDW Coeff of Amirah 11.8, Plt Count 414, MPV 10.9, Immature Gran % (Auto) 2.000 H, Neut % (Auto) 43.0 L, Lymph % (Auto) 31.3,[place] % (Auto) 17.5 H, Eos % (Auto) 4.9, Baso % (Auto) 1.3 H, Absolute Neuts (auto) 4.4, Absolute Lymphs (auto) 3.19, Nucleated RBC % 0, Differential CommentSCANNED 08/14/22 18:18: Sodium 137, Potassium 3.4 L, Chloride 108 H, Carbon Dioxide 16.0L, Anion Gap 13, BUN 28 H, Creatinine 3.06 H, Est GFR (MDRD) Af Amer 20 L, Est GFR (MDRD) Non-Af 16 L, BUN/Creatinine Ratio 9.2 L, Glucose 146 H, Calcium 8.5, Total Bilirubin 0.40, Direct Bilirubin 0.16, AST 10 L, ALT 12 L, Alkaline Phosphatase 112, Total Protein 7.2, Albumin 2.6 L, Globulin 4.6 H 08/14/22 19:38: Urine Color Yellow, Urine Clarity Cloudy, Urine pH 5.0, Ur Specific [place] 1.030, Urine Protein 100 H, Urine Glucose (UA) 50 H, Urine Ketones 5 H, Urine Occult Blood 10 H, Urine Nitrite Positive H, Urine Bilirubin 3 H, Urine Urobilinogen 1 H, Ur Leukocyte Esterase 25 H, Urine RBC 0-5 SEEN, Urine WBC 0-5 SEEN, Ur Squamous Epith Cells 0-5 SEEN, Urine Bacteria 2+, Urine Mucus 0 SEEN 08/15/22 05:55: WBC 12.8 H, RBC 4.36, Hgb 13.2, Hct 42.2, MCV 96.8, MCH 30.3, MCHC 31.3 L, RDW Std Deviation 42.4, RDW Coeff of Amirah 11.8, Plt Count 341, MPV 11.0, Immature Gran % (Auto) 1.000 H, Neut % (Auto) 40.2 L, Lymph % (Auto) 30.5,[place] % (Auto) 19.2 H, Eos % (Auto) 8.3 H, Baso % (Auto) 0.8, Absolute Neuts (auto) 5.2, Absolute Lymphs (auto) 3.91, Nucleated RBC % 0, Differential CommentSCANNED, Diff Path Review June08/15/22 05:55: Sodium 139, Potassium 3.7, Chloride 113 H, Carbon Dioxide 18.0 L, Anion Gap 8, BUN 32 H, Creatinine 3.58 H, Estim Creat Clear Calc 16.44, Est GFR (MDRD) Af Amer 17 L, Est GFR (MDRD) Non-Af 14 L, BUN/Creatinine Ratio 8.9 L,Glucose 91, Calcium 7.7 L, Magnesium 1.3 L, TSH 3.01 08/15/22 06:34: POC Glucose 93 Micro: Microbiology 08/14/22 19:38 Stool Stool Lactoferrin - Final 08/14/22 19:38 Stool Enteric Bacteriology - Final 08/14/22 19:38 Stool C. difficile DNA Amplification - Final Radiography Diagnostic Testing: Radiology Impression Abdomen/Pelvis CT 08/14/22 19:07 IMPRESSION: Ileus. Probable left adrenal adenoma. Sensitivity limited without IV and oral contrast. Electronically Signed: Vladimir Parsons MD at 20:24 EDT , Physical Exam Narrative General: Alert, oriented, no apparent distress, obese HEENT: Atraumatic, normocephalic Eyes: Anicteric, normal conjunctiva, extraocular movements grossly intact Neck: Supple Respiratory: Somewhat decreased at the bases but this seems to be secondary to body habitus, normal respiratory effort Cardiovascular: Regular rate and rhythm GI: Soft, nontender, nondistended Extremities: No significant edema Musculoskeletal: Moving all extremities Neuro: No overt focal neurological deficits Skin: No rashes appreciated Psych: Cooperative Assessment & Plan Assessment/Plan (1) Gastroenteritis: (2) Acute renal failure: (3) History of diabetes mellitus: (4) Obesity hypoventilation syndrome: PLAN: Plan #Diarrhea/ileus -CT in ED with ileus, probable left adrenal adenoma but sensitivity limited withno IV and oral contrast -Enteric pathogen and C. difficile negative, does have positive fecal WBC, will order fecal calprotectin, ova and parasites pending -Being hydrated -Replace electrolytes -TSH 3.01 -Cortisol and catecholamines ordered due to adrenal incidentaloma #LORNE on CKDIIIb/none anion gap metabolic acidosis -CKD likely secondary to? diabetes nephropathy and hypertensive nephrosclerosis -Review of community records show that on 08/12/2022 creatinine was 1.49. -Gentle IV fluids ordered.? Home medication including Lasix, losartan held. -08/15: Kidney function worsened today, urine studies and renal ultrasound ordered, urine study with FE urea of 4.24 the patient still with poor urine output despite receiving hydration though sometimes when she has diarrhea she isnot sure if she is urinating or not, kidney function continues to worsen despitecurrent measures, patient down for renal ultrasound at present, will place Foleyto better monitor I's and O's to help address underlying etiology, nephrology consulted #Leukocytosis -White blood cell count went from 10.2 up to 12.8 with unclear significance, where bands were noted on the differential path review and patient additionally has a monocytosis, BP also had downtrended this a.m., given patient's significant worsening and CT scan of abdomen nonspecific due to lack of oral or IV contrast because of kidneys, will order inflammatory markers, blood cultures,and start on empiric Merrem pending culture results #Type 2 diabetes mellitus -Glucose checks and sliding scale insulin #HONEY and obesity hypoventilation syndrome on cpap -Continue CPAP #Morbid obesity -BMI 50.8 kg/m? -Complicates treatment, prognosis, outcomes -Recommend weight loss and lifestyle changes #Probable adrenal adenoma -A.m. cortisol and catecholamines ordered #Asymptomatic bacteriuria -Patient with abnormal urinalysis at the emergency department.? -Urine pyuria is normal.? -Received rocephin x1 dose in the emergency department and urine culture was ordered.? -Follow urine culture. #DVT ppx: Lovenox subcu Lisa Mendoza MD Time spent in the patient's overall evaluation,decision-making process, review of diagnostic data, adjustment of management, discussion with other providers, nursing nursing and ancillary staff involved in patient's care documentation, 39minutes Charges/Coding Visit Charges Inpatient E&M: 65669 Subs Hosp 08/15/22 1407 <Electronically signed by Lisa Mendoza MD> Cosigner Signature (if applicable): CC: ~ Signed [facility] Work Phone: 1(679) 560-127506-22-2023 History and physical note Author Dr. Perez [facility] August 14, 2022 11:40pm Note Date/Time August 14, 2022 9:05 pm [facility] Medical Records Department [address] [place] [id number] H&P Exam - Hospitalist 08/14/222048 MR#: [id number] Acct: [id number] Name: MEGGAN ARITA Rep #:[id number] : 1960 61 From: Sam Perez MD PCP: Dr. Erica Cannon MD Status:AD M IN Location: [facility] [id number] HPI - General General Date of Admission: 08/14/22 Date of Service: 08/14/22 Chief Complaint: Diarrhea HPI Narrative MEGGAN ARITA, is a 61 F with significant history of obstructive sleep apnea on home CPAP; morbid obesity; hypertension and diabetes mellitus who presents emergency department with one week history of progressively worsening diarrhea. She was placed on Lomotil by nurse petitioner at her PCPs office but that did not really help with diarrhea. She took some Imodium and that gave her some mild relief from diarrhea. She thinks that her diarrhea is slowing down now. A day before presentation and on the day of presentation patient developed nausea and vomiting. Of note patient's lost more than 200 pounds on Trulicity. Trulicity was then switched to Ozempic. Ozempic was then switched to Mounjaro. Patient thinks that her symptoms are related to Mounjaro. Earlier in the course of taking mounjaro patient was constipated and she is scared from developing constipation again if placed on medicine to pam her diarrhea. She actually taking medicine to make her bowels move. At a point while on mounjaro she had to self-dug her stools out. She complains of irritation in between her thighs. [facility] Medical History Anemia Anxiety Asthma Chronic respiratory failure with hypoxia and hypercapnia CPAP (continuous positive airway pressure) dependence Hypertension Obesity Sleep apnea Type 2 diabetes mellitus Home Medications albuterol sulfate 2.5 mg/3 mL (0.083 %) solution for nebulization 2.5 mg inhalation Q6HWA.RT PRN Asthma 11/23/12 [History Last Taken 07/31/21 13:00] acetaminophen 325 mg tablet (Tylenol) 650 mg PO Q6H PRN PRN Pain Score 1- 10/Temp> 100.7 F #0 tabs 08/15/21 [Rx Last Taken Unknown] ascorbic acid (vitamin C) 500 mg tablet 500 mg PO BIDCM #0 tabs 08/15/21 [Rx Last Taken Unknown] ferrous sulfate 325 mg (65 mg iron) tablet (FeroSul) 325 mg PO BIDCM #0 tabs 08/15/21 [Rx Last Taken Unknown] diclofenac sodium 1 % topical gel 1 ea topical PRN PRN Pain 11/18/21 [History Last Taken Unknown] omeprazole 40 mg capsule,delayed release 40 mg PO DAILY 11/18/21 [History Last Taken Unknown] acetaminophen 325 mg tablet (Tylenol) 650 mg PO Q4H PRN PRN Fever, pain 1-10/10 #0 tabs 11/20/21 [Rx Last Taken Unknown] furosemide 40 mg tablet (Lasix) 40 mg PO DAILY #1 TAB 11/20/21 [Rx Last Taken Unknown] lorazepam 1 mg tablet 1 mg PO BID PRN PRN Anxiety #5 tabs 11/20/21 [Rx Last Taken Unknown] albuterol sulfate 90 mcg/actuation aerosol inhaler (Ventolin HFA) 2 puff inhalation Q4H PRN shortness of breath or wheezing #18 grams 01/30/22 [Rx Last Taken Unknown] fluticasone propionate 50 mcg/actuation nasal spray,suspension 2 spray DAILY PRNSinus Symptoms #16 grams 01/30/22 [Rx Last Taken Unknown] losartan 50 mg tablet 50 mg PO DAILY 01/30/22 [History Last Taken Unknown] ondansetron HCl 4 mg tablet 4 mg PO PRN PRN Nausea 08/14/22 [History Last Taken Unknown] Allergy/AdvReac Type Severity Reaction Status Date / Time codeine Allergy Nausea/Vom/ Verified 08/14/22 17:59 Diarrhea iodine Allergy Swelling Verified 08/14/22 17:59 latex Allergy Shortness Verified 08/14/22 17:59 of breath meloxicam Allergy Rash Verified 08/14/22 17:59 Penicillins Allergy Shortness Verified 08/14/22 17:59 of breath tositumomab Allergy NEEDS Verified 08/14/22 17:59 FOLLOW-UP hydrocodone bitartrate AdvReac Nausea/Vom/ Verified 08/14/22 17:59 [From Vicodin] Diarrhea prednisone AdvReac Other Verified 08/14/22 17:59 Family History Other Diabetes Heart disease Hypertension Surgical History History of cholecystectomy Previous section Social History Smoking Status: Never smoker substance use type: does not use ROS ROS Narrative Pertinent positives and pertinent negatives as noted in HPI. All other systems were reviewed and are negative Vital Signs Vital Signs Vital Signs: 08/14/22 17:59 08/14/22 19:13 Temperature 97 F L Temperature Source Temporal Pulse Rate 103 H 87 Respiratory Rate 22 H 21 H Blood Pressure 83/53 L 103/58 L Blood Pressure Mean 63 73 Pulse Ox 98 96 Oxygen Delivery Method Room Air Room Air Weight Weight: 143 kg Body Mass Index (BMI) 47.9 Physical Exam Narrative Physical exam: General: Morbid obesity. Head: Normocephalic, atraumatic, no tenderness Eyes: Vision is grossly intact. EOMI ENT, no trauma, moist mucous membranes, no rhinorrhea Neck: Nontender, No thyromegaly. CVS: Regular rate and rhythm. S1-S2 present. No murmur, gallop or rub. Respiratory : clear to auscultation bilaterally, chest wall nontender Abdomen: Soft, nontender, nondistended, normal bowel sounds, no masses : Deferred Back: Nontender, no CVA tenderness, no midline spinal tenderness, deformities, step-offs Extremities: Nontender full range of motion, no trauma Skin: Normal color, no trauma, abrasions Neuro: Alert, oriented, cranial nerves II through XII grossly intact. Psychiatry: Normal mood. Normal affect. Not depressed. Not anxious. Results Lab / Micro Data Result Diagrams: 08/14/22 18:18 08/14/22 18:18 Labs: Laboratory Results - last 24 hr 08/14/22 18:18: WBC 10.2, RBC 5.00, Hgb 15.0, Hct 48.9 H, MCV 97.8, MCH 30.0, MCHC 30.7 L, RDW Std Deviation 42.5, RDW Coeff of Amirah 11.8, Plt Count 414, MPV 10.9, Immature Gran % (Auto) 2.000 H, Neut % (Auto) 43.0 L, Lymph % (Auto) 31.3,[place] % (Auto) 17.5 H, Eos % (Auto) 4.9, Baso % (Auto) 1.3 H, Absolute Neuts (auto) 4.4, Absolute Lymphs (auto) 3.19, Nucleated RBC % 0, Differential Comment SCANNED 08/14/22 18:18: Sodium 137, Potassium 3.4 L, Chloride 108 H, Carbon Dioxide 16.0L, Anion Gap 13, BUN 28 H, Creatinine 3.06 H, Est GFR (MDRD) Af Amer 20 L, Est GFR (MDRD) Non-Af 16 L, BUN/Creatinine Ratio 9.2 L, Glucose 146 H, Calcium 8.5, Total Bilirubin 0.40, Direct Bilirubin 0.16, AST 10 L, ALT 12 L, Alkaline Phosphatase 112, Total Protein 7.2, Albumin 2.6 L, Globulin 4.6 H 08/14/22 19:38: Urine Color Yellow, Urine Clarity Cloudy, Urine pH 5.0, Ur Specific [place] 1.030, Urine Protein 100 H, Urine Glucose (UA) 50 H, Urine Ketones 5 H, Urine Occult Blood 10 H, Urine Nitrite Positive H, Urine Bilirubin 3 H, Urine Urobilinogen 1 H, Ur Leukocyte Esterase 25 H, Urine RBC 0-5 SEEN, Urine WBC 0-5 SEEN, Ur Squamous Epith Cells 0-5 SEEN, Urine Bacteria 2+, Urine Mucus 0 SEEN Micro: Microbiology 08/14/22 19:38 Stool Stool Lactoferrin - Final Radiology Impression Abdomen/Pelvis CT 08/14/22 19:07 IMPRESSION: Ileus. Probable left adrenal adenoma. Sensitivity limited without IV and oral contrast. Electronically Signed: Vladimir Parsons MD at 20:24 EDT Reading Location ID and State: [facility] / [place] , Service support , Assessment & Plan Assessment/Plan (1) Acute renal failure: (2) Gastroenteritis: (3) Asymptomatic bacteriuria: (4) Hypokalemia: (5) History of diabetes mellitus: PLAN: Plan Acute kidney injury on CKD stage IIIb/none anion gap metabolic acidosis CKD likely secondary to diabetes nephropathy and hypertensive nephrosclerosis Review of community records show that on 08/12/2022 creatinine was 1.49. Gentle IV fluids ordered. Home medication including Lasix, losartan held. Trend BMP. Diarrhea/ileus Impression of abdomen/pelvis CT: Ileus. Probable left adrenal adenoma. Sensitivity was limited as there was no IV and oral contrast. Abdomen and pelvis CT was visualized independent interpreted. Hospitalist agreewith radiologist interpretation. Stool studies ordered emergency department follow-up. Stool studies ordered at PCPs office unremarkable. As needed Imodium ordered. Calmoseptine for irritation ordered. Probable adrenal adenoma PET/CT as above A.m. cortisol and catecholamines ordered. Hypokalemia Potassium 3.4. Likely secondary to diarrhea. Received placement at the emergency department. Trend. Check magnesium. History of hypertension Blood pressures are soft. Lasix and losartan held secondary LORNE. Trend blood pressures. Gentle IV hydration. Asymptomatic bacteriuria Patient with abnormal urinalysis at the emergency department. Urine pyuria is normal. Received cefazolin x1 dose in the emergency department and urine culture was ordered. Follow urine culture. History of diabetes mellitus Blood glucose is stable. Accu-Chek QA CHS ordered. Morbid Obesity : BMI: 50.8 kg/m?. Complicates care. Has been on multiple diabetic medications that also helps lose weight. Patient to continue lifestylemodification and continue obesity management with PCP. DVT prophylaxis: Lovenox ordered. Charges/Coding Visit Charges Inpatient E&M: 74388 Init Hosp L3 08/14/22 2340 <Electronically signed by Sam Perez MD> Cosigner Signature (if applicable): CC: Dr. Sam Perez MD; Dr. Erica Cannon MD~ Signed [facility] Work Phone: 1(943) 773-729006-22-[address] Mcgee [facility] August 14, 2022 10:06pm Note Date/Time August 14, 2022 6:22 pm [facility] Medical Records Department [address] [place] [address] Emergency Department Summary 08/14/22 MR#: [id number] Acct: [id number] Name: MEGGAN ARITA Rep #:[id number] : 1960 61 From: Princess Mcgee MD PCP: Dr. Erica Cannon MD Status:AD M IN Location: [place] [address] HPI History of Present Illness Chief Complaint: Abd Pain Informant: patient and family Onset/Context/Timing Onset: Days Context: Gradual Onset Narrative Narrative: Patient presents with 5 to 7-day history of diarrhea. She states she is going to dozen times a day or more. No obvious blood in the stool. She was seen by her PCP on Friday and given some medicine to help stop diarrhea but it has not worked. Yesterday she started vomiting and has had vomiting yesterday and todayas well. She denies fever. She believes that the symptoms started about the same time that her diabetes medication dosing was changed. [facility] Medical History Anemia Anxiety Asthma Chronic respiratory failure with hypoxia and hypercapnia CPAP (continuous positive airway pressure) dependence Hypertension Obesity Sleep apnea Type 2 diabetes mellitus Home Medications albuterol sulfate 2.5 mg/3 mL (0.083 %) solution for nebulization 2.5 mg inhalation Q6HWA.RT PRN Asthma 11/23/12 [History Last Taken 07/31/21 13:00] acetaminophen 325 mg tablet (Tylenol) 650 mg PO Q6H PRN PRN Pain Score 1- 10/Temp> 100.7 F #0 tabs 08/15/21 [Rx Last Taken Unknown] ascorbic acid (vitamin C) 500 mg tablet 500 mg PO BIDCM #0 tabs 08/15/21 [Rx Last Taken Unknown] ferrous sulfate 325 mg (65 mg iron) tablet (FeroSul) 325 mg PO BIDCM #0 tabs 08/15/21 [Rx Last Taken Unknown] diclofenac sodium 1 % topical gel 1 ea topical PRN PRN Pain 11/18/21 [History Last Taken Unknown] omeprazole 40 mg capsule,delayed release 40 mg PO DAILY 11/18/21 [History Last Taken Unknown] acetaminophen 325 mg tablet (Tylenol) 650 mg PO Q4H PRN PRN Fever, pain 1-10/10 #0 tabs 11/20/21 [Rx Last Taken Unknown] furosemide 40 mg tablet (Lasix) 40 mg PO DAILY #1 TAB 11/20/21 [Rx Last Taken Unknown] lorazepam 1 mg tablet 1 mg PO BID PRN PRN Anxiety #5 tabs 11/20/21 [Rx Last Taken Unknown] albuterol sulfate 90 mcg/actuation aerosol inhaler (Ventolin HFA) 2 puff inhalation Q4H PRN shortness of breath or wheezing #18 grams 01/30/22 [Rx Last Taken Unknown] fluticasone propionate 50 mcg/actuation nasal spray,suspension 2 spray DAILY PRNSinus Symptoms #16 grams 01/30/22 [Rx Last Taken Unknown] losartan 50 mg tablet 50 mg PO DAILY 01/30/22 [History Last Taken Unknown] ondansetron HCl 4 mg tablet 4 mg PO PRN PRN Nausea 08/14/22 [History Last Taken Unknown] Allergy/AdvReac Type Severity Reaction Status Date / Time codeine Allergy Nausea/Vom/ Verified 08/14/22 17:59 Diarrhea iodine Allergy Swelling Verified 08/14/22 17:59 latex Allergy Shortness Verified 08/14/22 17:59 of breath meloxicam Allergy Rash Verified 08/14/22 17:59 Penicillins Allergy Shortness Verified 08/14/22 17:59 of breath tositumomab Allergy NEEDS Verified 08/14/22 17:59 FOLLOW-UP hydrocodone bitartrate AdvReac Nausea/Vom/ Verified 08/14/22 17:59 [From Vicodin] Diarrhea prednisone AdvReac Other Verified 08/14/22 17:59 Surgical History History of cholecystectomy Social History Smoking Status: Never smoker substance use type: does not use ROS ROS ED Constitutional Constitutional ED: Denies chills or fever(s) Eyes Eyes: Denies change in vision ENT ENT ED: Denies rhinorrhea Cardiovascular Cardiovascular: Denies chest pain or palpitations Respiratory/Chest Respiratory/Chest: Denies cough or dyspnea Gastrointestinal Gastrointestinal: Reports abdominal pain, diarrhea, nausea and vomiting Genitourinary Genitourinary ED: Reports other Details: Decreased urine output ; Denies dysuria Neurologic Neurologic: Reports weakness; Denies headache(s) Allergic/Immunologic Allergic/Immunologic ED: Denies mouth swelling or tongue swelling EXAM Physical Exam Const Vital Signs: 08/14/22 17:59 08/14/22 19:13 Temperature 97 F L Temperature Source Temporal Pulse Rate 103 H 87 Respiratory Rate 22 H 21 H Blood Pressure 83/53 L 103/58 L Blood Pressure Mean 63 73 Pulse Ox 98 96 Oxygen Delivery Method Room Air Room Air Positive well nourished and well developed General Appearance ED: well developed HEENT Reports dry mucous membranes Mouth ED: Yes dry mucous membranes Mouth: dry mucous membranes Eyes EOMs intact bilaterally Neck no lymphadenopathy Chest Wall inspection of chest normal and palpation of chest normal Resp normal respiratory effort and clear to auscultation bilaterally Cardio regular rate and regular rhythm GI GI Narrative: Abdomen soft with no focal tenderness palpation. Hypoactive but present bowel sounds are noted. Extremity Extremity Narrative: Chronic venous stasis changes to the lower extremities. Neuro oriented x3 and no sensory deficits noted Motor Exam: strength 5/5 throughout Psych mental status grossly normal Skin no rashes or lesions noted MDM MDM MDM Narrative Medical decision making narrative: Patient placed on patient monitor. IV fluids initiated. EKG obtained to evaluate for cardiac arrhythmia/ischemia. Labwork obtained to evaluate for leukocytosis, anemia, and electrolyte derangement. Urinalysis obtained to evaluate for infection/hematuria. Stool studies ordered. I was able to review prior records and [facility]. Patient was seen by her primary care physician 2 days ago. At that time her blood pressure was 136/83. Her BUN was 21 and her creatinine was 1.49. Her hemoglobin was 12.2. She had stool studies obtained that were negative for Shigella, Campylobacter, Shiga toxin, Salmonella, and C. difficile. She was given a prescription for Lomotil. Lab Data Attestation: I reviewed the patient's lab results. Labs: Laboratory Results - last 24 hr 08/14/22 08/14/22 08/14/22 18:18 18:18 19:38 WBC 10.2 RBC 5.00 Hgb 15.0 Hct 48.9 H MCV 97.8 MCH 30.0 MCHC 30.7 L RDW Std Deviation 42.5 RDW Coeff of Amirah 11.8 Plt Count 414 MPV 10.9 Immature Gran % (Auto) 2.000 H Neut % (Auto) 43.0 L Lymph % (Auto) 31.3 [place] % (Auto) 17.5 H Eos % (Auto) 4.9 Baso % (Auto) 1.3 H Absolute Neuts (auto) 4.4 Absolute Lymphs (auto) 3.19 Nucleated RBC % 0 Differential Comment SCANNED Sodium 137 Potassium 3.4 L Chloride 108 H Carbon Dioxide 16.0 L Anion Gap 13 BUN 28 H Creatinine 3.06 H Est GFR (MDRD) Af Amer 20 L Est GFR (MDRD) Non-Af 16 L BUN/Creatinine Ratio 9.2 L Glucose 146 H Calcium 8.5 Total Bilirubin 0.40 Direct Bilirubin 0.16 AST 10 L ALT 12 L Alkaline Phosphatase 112 Total Protein 7.2 Albumin 2.6 L Globulin 4.6 H Urine Color Yellow Urine Clarity Cloudy Urine pH 5.0 Ur Specific [place] 1.030 Urine Protein 100 H Urine Glucose (UA) 50 H Urine Ketones 5 H Urine Occult Blood 10 H Urine Nitrite Positive H Urine Bilirubin 3 H Urine Urobilinogen 1 H Ur Leukocyte Esterase 25 H Urine RBC 0-5 SEEN Urine WBC 0-5 SEEN Ur Squamous Epith Cells 0-5 SEEN Urine Bacteria 2+ Urine Mucus 0 SEEN Radiography Diagnostic Testing: Clinical Impression(s) from Imaging Studies Abdomen/Pelvis CT 08/14/22 19:07 IMPRESSION: Ileus. Probable left adrenal adenoma. Sensitivity limited without IV and oral contrast. Electronically Signed: Vladimir Parsons MD at 20:24 EDT , Treatment and Re-Evaluation :: CBC was normal white count at 10.2 with no left shift. Hemoglobin today is concentrated at 15. Chemistry studies reveal a BUN of 28 and a creatinine of 3.06. Her potassium is slightly low at 3.4. This is replaced IV. LFTs are unremarkable. Her glucose is 146. Urinalysis reveals positive nitrites with 2+bacteria. 0-5 white cells are noted. CT scan of the abdomen pelvis without contrast obtained. This reveals evidence of an ileus but no obvious bowel wall thickening. EKG is sinus rhythm at 92 bpm with no acute ischemia. Her QTc is 484. In light of this she was given Phenergan for nausea. Test results are discussed with patient and family at bedside. Her urine will be sent for culture and she will be given a dose of Rocephin. She will require admission given her acute renal failure. Discharge Plan Triage Chief Complaint: Abd Pain ED Provider: Princess Mcgee Dx/Rx/DC Orders Clinical Impression: Acute renal failure, Gastroenteritis, Asymptomatic bacteriuria, Hypokalemia Prescriptions: No Action losartan 50 mg tablet 50 mg PO DAILY fluticasone propionate 50 mcg/actuation spray,suspension 2 spray NASAL DAILY PRN (Reason: Sinus Symptoms) Qty: 16 6RF albuterol sulfate [Ventolin HFA] 90 mcg/actuation HFA aerosol inhaler 2 puff inhalation Q4H PRN (Reason: shortness of breath or wheezing) Qty: 18 6RF albuterol sulfate 2.5 MG/3 ML solution for nebulization 2.5 mg inhalation Q6HWA.RT PRN (Reason: Asthma) Label Comments: ASTHMA acetaminophen [Tylenol] 325 mg Tablet 650 mg PO Q6H PRN PRN (Reason: Pain Score 1-10/Temp > 100.7 F) Qty: 0 0RF ascorbic acid (vitamin C) 500 mg Tablet 500 mg PO BIDCM Qty: 0 0RF ferrous sulfate [FeroSul] 325 mg (65 mg iron) Tablet 325 mg PO BIDCM Qty: 0 0RF omeprazole 40 mg Capsule,Delayed Release(Dr/Ec) 40 mg PO DAILY diclofenac sodium 1 % Gel 1 ea TOPICAL PRN PRN (Reason: Pain) lorazepam 1 mg Tablet 1 mg PO BID PRN PRN (Reason: Anxiety) Qty: 5 0RF acetaminophen [Tylenol] 325 mg Tablet 650 mg PO Q4H PRN PRN (Reason: Fever, pain -12/03) Qty: 0 0RF furosemide [Lasix] 40 mg tablet 40 mg PO DAILY Qty: 1 0RF Rx Instructions: start on 11/23/21 ondansetron HCl 4 mg tablet 4 mg PO PRN PRN (Reason: Nausea) Primary Care Provider: Erica Cannon Referrals: Erica Cannon MD [Primary Care Provider] - Disposition Disposition: Acute Care [facility] What to do if you have Problems For any increased pain, shortness of breath, bleeding, nausea or vomiting, chestpain, or any unexpected problems, contact your Primary Care Provider. Call [facility] ([phone]) or report to the closest Emergency Room. Call 911 if necessary. 08/14/222205 <Electronically signed by Princess Mcgee MD> Cosigner Signature (if applicable): CC: Dr. Erica Cannon MD ~ Signed [facility] Work Phone: 1([phone]) 640-425006-19-2023 Instructions* Patient Instructions* Katya Oliva APRN.[employer] - 08/12/2022 3:00 PM EDT Drink liquids frequently. Increase the amount to 2 to 3 liters or quarts daily as tolerated, or trysipping liquids in small amounts throughout the day. Choose diluted, pulpless fruit juices, broths,oral rehydration drinks or sodas (without caffeine). Chicken broth (without the fat), tea with honey, and sports drinks also are good choices. Instead of drinking liquids with your meals, drink liquid s between meals. Try these low-fiber foods: potatoes, rice, noodles, ripe bananas, applesauce, smooth peanut butter,white bread, chicken or turkey without the skin, lean ground beef, fish, yogurt or cottage cheese. Avoid greasy, fatty, or fried foods; raw vegetables and fruits; strong spices, and whole-grain cereals and breads. Limit food or beverages with caffeine, such as chocolate, coffee, strong tea, and some sodas. If you have cramping with diarrhea, avoid gas-forming foods and beverages such as beans, cabbage, beer, and carbonated beverages. Try probiotics, especially if you are on an antibiotic Diarrheal illness may result in temporary intolerance to lactose, (dairy) so avoid these foods if they are making diarrhea worse. Call office if diarrhea persists despite above measures or if you develop abdominal pain, fever greater than 100.5, bloody or black/tarry stools, vomiting or signs of dehydration [facility] History of Present illness Narrative* Katya Oliva APRN.CNP - 08/12/2022 2:49 PM EDT CC: Patient presents with: diarrhea x 5 days: Clear liquid diet since Friday HPI Meggan Arita is a 61 year old female who presents today for above Diarrhea for the past five DAY(S) that is constant. Diarrhea is described as liquid occuring 5 to 10 stools/day on average. Associated with sulfur burps and fatigue Denies:fever, chills, black/bloody stools, nausea, vomiting, abdominal pain, bloating, constipation,recent foreign travel and recent antibiotic usage Treatments: Imodium Patient was on Trulicity and had reported GI issues so she was switched to Ozempic. GI symptoms worsened on Ozempic and she was switched back to Trulicity on 05/30. GI symptoms did not improve and was switched to Mounjaro 5 mg weekly, dose increased on 07/16 to 7.5 mg weekly as patient reported no GI symptoms. Patient states current diarrhea is much worse than it has been and think its because of the Mounjaro. She stopped taking about 10 days ago, there has been on improvement since then. She did have stool studies on 07/06 for H.pylori, enteric pathogens and C-diff that were all negative. ROS General: denies dizziness, lightheadedness, weight loss, fever, chills, headaches, night sweats, syncope CV: denies rapid heart rate, edema Resp: denies SOB : denies dark/concentrated urine or decreased urine output REVIEW OF SYSTEMS See HPI PAST MEDICAL HISTORY Diagnosis Date Acute gastritis without mention of hemorrhage ALLERGIC RHINITIS NOS 07/15/2007 ANXIETY STATE NOS 12/09/2006 Carpal tunnel syndrome 04/10/2007 Bilateral symptoms with the left worse than the right as of 04-03 CHOLELITH W CHOLECYS NEC 02/07/2005 Lap favio in 03-01 Chronic hepatitis, unspecified (HCC) 03/06/2005 Depression Edema 06/01/2007 Admit 07-08-08 for RLE venous stasis ulcer on Cubicin. Put pt on disability from 08-03-08 to 11-24-08 Esophageal reflux GENERAL OSTEOARTHROSIS 10/29/2006 Headache(784.0) 01/20/2007 [facility] Rheum 12-26: consid Sjogren's, CT chest/MRI head/HYUN/KEO/OSMANY/ANCA/SSA/SSB neg Again reinforced the need to start CPAP on 03-04-07: unable to afford as of 04-03 for insurance issues INSOMNIA NOS 07/31/2007 IRON DEFIC ANEMIA NOS 01/20/2007 Colon 03-22-02 ([facility]): no polyps, masses or AVMs Lactose intolerance Low blood potassium 10/20/2014 Low magnesium level 07/08/2016 Morbid obesity (HCC) Obesity, unspecified Obstructive sleep apnea Other dyspnea and respiratory abnormality Primary osteoarthritis of both knees 03/08/2020 severe narrowing of the medial joint space with marginal osteophytes--x-ray knee 2016 SPINAL STENOSIS-LUMBAR 07/09/2007 Stasis edema with ulcer (HCC) 08/02/2013 Type II or unspecified type diabetes mellitus without mention of complication, not stated as uncontrolled 08/05/2007 Unspecified asthma(493.90) Unspecified essential hypertension PAST SURGICAL HISTORY Procedure Laterality Date BIOPSY LIVER NEEDLE PERCUTANEOUS 03/06/05 DELIVERY ONLY 1979 , low cervical DELIVERY ONLY 1980 , low cervical DELIVERY ONLY 1986 , low cervical COLONOSCOPY FLX DX W/COLLJ SPEC WHEN PFRMD 01/30/16 Colonoscopy [facility] outpt EGD TRANSORAL BIOPSY SINGLE/MULTIPLE 07/22/06 ESOPHAGOGASTRODUODENOSCOPY TRANSORAL DIAGNOSTIC 2001 EGD ESOPHAGOGASTRODUODENOSCOPY TRANSORAL DIAGNOSTIC 01/30/16 EGD [facility] outpt IMPLANT MESH OPN HERNIA RPR/DEBRIDEMENT CLOSURE 03/06/05 LAPAROSCOPY SURG RPR INITIAL INGUINAL HERNIA 03/06/05 LAPS SURG CHOLECYSTECTOMY W/CHOLANGIOGRAPHY 03/06/05 LIG/TRNSXJ FLP TUBE ABDL/VAG APPR UNI/BI 1986 Tubal ligation OPTX ANKLE DISLOCATION W/REPAIR/INT/XTRNL FIXJ ORIF Ankle ALLERGIES Ciprofloxacin, Buspar [Buspirone Hcl], Carafate [Sucralfate], Celebrex [Celecoxib], Cheratussin, Codeine, Doxycycline, Iodine, Latex, Levaquin [Levofloxacin], Meloxicam, Penicillins, Prednisone, and Vicodin [Hydrocodone-Acetaminophen] MEDICATIONS ferrous sulfate (IRON ORAL)^Take by mouth.^Disp: ^Rfl: Chlorhexidine Gluconate (PERIDEX) 0.12 % solution^Use 15 mL as instructed twice daily. Rinse aroundmouth for 30 seconds then expectorate (spit out).^Disp: 118 mL^Rfl: 0 [START ON 08/15/2022] LORazepam (ATIVAN) 1 mg tablet^Take 0.5-1 tablets by mouth once daily as needed for anxiety for up to 30 days. Do not start before August 15, 2022.^Disp: 30 tablet^Rfl: 0 ondansetron (ZOFRAN) 4 mg tablet^Take 1 tablet by mouth every 8 hours as needed.^Disp: 30 tablet^Rfl: 1 tirzepatide (MOUNJARO) 7.5 mg/0.5 mL pen injector^Inject 7.5 mg subcutaneously one time a week.^Disp: 2 mL^Rfl: 0 WALKER ROLLATOR SEAT WITH 6" WHEELS - RED^Diagnosis: Unsteady gait, primary osteoarthritis both knees, decreased mobility^Disp: 1 Each^Rfl: 0 cyclobenzaprine (FLEXERIL) 5 mg tablet^Take 1 tablet by mouth three times daily as needed.^Disp: 90tablet^Rfl: 1 Leg Brace (KNEE SUPPORT BRACE) mis^1 Each as directed.^Disp: 1 Each^Rfl: 1 nystatin (MYCOSTATIN) powder^Apply 1 application to affected area four times daily.^Disp: 60 g^Rfl:2 venlafaxine ER (EFFEXOR XR) 75 mg 24 hr capsule^Take 1 capsule by mouth once daily.^Disp: 90 capsule^Rfl: 3 flash glucose sensor (FREESTYLE SHAKIRA 2 SENSOR) kit^Apply new sensor every fourteen (14) days to upper arm.^Disp: 6 Each^Rfl: 4 atorvastatin (LIPITOR) 40 mg tablet^Take 1 tablet by mouth once daily.^Disp: 30 tablet^Rfl: 11 furosemide (LASIX) 40 mg tablet^Take 1 tablet by mouth once daily.^Disp: 90 tablet^Rfl: 3 albuterol (PROVENTIL) 2.5 mg /3 mL (0.083 %) nebulizer solution^inhale contents of one vial in nebulizer every 6 hours if needed for wheezing and shortness of breath^Disp: 300 mL^Rfl: 5 albuterol HFA (PROVENTIL HFA, VENTOLIN HFA) 90 mcg/actuation inhaler^Inhale 2 Puffs as instructed every 4 hours as needed for wheezing/shortness of breath. May give preferred namebrand (per formularyand/or patient preference)^Disp: 3 Each^Rfl: 3 fluticasone (FLONASE) 50 mcg/actuation nasal spray^Use 2 Sprays in each nostril once daily as needed.^Disp: 3 Each^Rfl: 3 ipratropium (ATROVENT) 0.02 % nebulizer solution^Use 2.5 mL via nebulizer four times daily as needed (wheezing). Use over 5-15minutes. Use in addition to albuterol nebulizer.^Disp: 250 mL^Rfl: [address] (PROTONIX) 40 mg tablet^Take 1 tablet by mouth once daily.^Disp: 90 tablet^Rfl: 3 losartan (COZAAR) 100 mg tablet^Take 1 tablet by mouth once daily.^Disp: 90 tablet^Rfl: 3 metOLazone (ZAROXOLYN) 5 mg tablet^take 1 tablet by mouth 30 MINUTES PRIOR TO TAKING LASIX IF NEEDED FOR INCREASED SWELLING DIRECTED^Disp: 90 tablet^Rfl: 1 insulin needles, DISPOSABLE, (BD INSULIN PEN NEEDLE UF) 31 gauge x 5/16"^USE 6 DAILY DIRECTED with Toujeo and Humalog and Byetta^Disp: 150 Each^Rfl: 5 Diaper,Brief, Adult,Disposable (DISPOSABLE BRIEF)^Bariatric Briefs - Prevail. Going thru [facility]. 2 per day.^Disp: 96 Each^Rfl: 1 blood sugar diagnostic (BLOOD GLUCOSE TEST) test strip^Test blood sugar(s) four times daily. Dx: Type 2 DM - Controlled E11.9 Insulin: No^Disp: 150 Strip^Rfl: 11 Lancets lancets^Test blood sugar(s) 4 times daily. Dx: Type 2 DM - Controlled E11.9 Insulin: No^Disp: 200 Each^Rfl: 11 montelukast (SINGULAIR) 10 mg tablet^Take 1 tablet by mouth daily at bedtime.^Disp: 30 tablet^Rfl: 11 oxaprozin (DAYPRO) 600 mg tablet^Take 1-2 tablets by mouth once daily. as needed for knee pain.^Disp: 60 tablet^Rfl: 1 mupirocin (BACTROBAN) 2 % cream^Use up to three times a day. Location: left inner thigh^Disp: 45 g^Rfl: 1 gabapentin (NEURONTIN) 100 mg capsule^Take 2 capsules by mouth daily at bedtime for 180 days.^Disp:60 capsule^Rfl: 5 mometasone-formoterol (DULERA) 200-5 mcg/actuation inhaler^Inhale 2 Puffs as instructed twice daily.^Disp: 1 Inhaler^Rfl: 11 ketoconazole (NIZORAL) 2 % cream^apply to affected area OF RASH AND SURROUNDING AREA UNDER BREAST once daily^Disp: 60 g^Rfl: 2 bismuth subsalicylate (PEPTO-BISMOL) 262 mg chew^Take 2 tablets by mouth four times daily.^Disp: 112 tablet^Rfl: 0 docusate sodium (COLACE) 100 mg capsule^Take 2 capsules by mouth DAILY AT 6 PM.^Disp: 60 capsule^Rfl: 4 CPAP^AutoPAP 5-12 CM H2O with humidification. Mask (per patient preference) optional chin strap (ifindicated) , filters, tubing, humidifier and lifetime supplies.^Disp: 1 Device^Rfl: 0 ipratropium bromide (ATROVENT) 42 mcg (0.06 %) nasal spray^Use 2 Sprays in each nostril four times daily.^Disp: 1 Bottle^Rfl: 1 Miscellaneous Medical Supply^Order: Overnight pulse ox on 4LPM Diagnosis: R09.02 (checking if needsO2 increased at night)^Disp: 1 Each^Rfl: 0 Blood Pressure Monitor (BLOOD PRESSURE KIT) kit^For home use Dx: labile blood pressure^Disp: 1 Kit^Rfl: 0 loratadine (CLARITIN) 10 mg tablet^Take 1 tablet by mouth once daily.^Disp: 30 tablet^Rfl: 11 Blood-Glucose Meter (FREESTYLE FREEDOM LITE) monitoring kit^1 Each as needed.^Disp: 1 Each^Rfl: 0 polyethylene glycol 3350 (MIRALAX) 17 gram/dose powder^2 scoop in liquid daily as needed for bowel movement^Disp: 1 Bottle^Rfl: 11 COMPOUNDED PRESCRIPTION^TENS Unit 4 lead. Use as directed. Needs refills for leads 1 per month as needed Dispense 1 with 5 refills. (M48.06) Spinal stenosis, lumbar region, without neurogenic claudication^Disp: 1 Each^Rfl: 0 Nebulizer^NEBULIZER FOR HOME USE. DX: (J45.20) Mild intermittent asthma without complication^Disp: 1 Device^Rfl: 0 FAMILY HISTORY Problem Relation Age of Onset other (CVA) Father Heart Mother Diabetes Mother Social History Tobacco Use Smoking status: Never Smokeless tobacco: Never Tobacco comments: Father smoked in childhood home . ETS exposure in current home. Vaping Use Vaping Use: Never used Substance Use Topics Alcohol use: No Drug use: No PHYSICAL EXAM BP 136/83 Pulse 87 Resp 16 Wt (!) 153.8 kg (339 lb) LMP 02/11/2011 BMI 51.54 kg/m General Appearance: well appearing, in no acute distress, alert Skin: Skin color, texture, turgor normal for age; Eyes: conjunctiva pink and moist, no icterus, sclera white, non-injected Oropharynx: moist Abdomen: soft, nondistended, nontender, normal bowel sounds DATA REVIEWED: most recent labs and stool studies ASSESSMENT/PLAN: 1. Diarrhea, unspecified type - ICD9: 787.91, ICD10: R19.7 Possible GLP-1 side effect. See HPI. No alarm symptoms or exam findings today Evaluate further with: - C. DIFFICILE PCR - ENTERIC BACTERIAL PANEL BY PCR - CALPROTECTIN,FECAL - CBC + DIFF - COMP METABOLIC PANEL - TSH BLD - DIPHENOXYLATE-ATROPINE 2.5 MG-0.025 MG TABLET as needed for diarrhea. Follow-up and further recommendations pending results Prescription instructions reviewed with patient as applicable. Potential red flag symptoms discussed with the patient. Reviewed appropriate action plan to take if red flag symptoms occur. Patient agreeable to treatment plan. Katya Oliva APRN.CNP documented in this encounter[facility]06-[facility]23 Miscellaneous Notes* Telephone Encounter - Lili Cummings RN - 08/12/2022 9:21 AM EDT Protocol recommends see provider in 24 hours. Pt scheduled today with Katya Oliva [facility] [employer] [facility]. Care plan reviewed with patient. Patient voices understanding. Advised patient that if symptoms get worse to be evaluated in Urgent Care or ER. Reason for Disposition [1] MODERATE diarrhea (e.g., 4-6 times / day more than normal) AND [2] present > 48 hours (2 days) Answer Assessment - Initial Assessment Questions 1. DIARRHEA SEVERITY: - NO DIARRHEA (SCALE 0) - MILD (SCALE 1-3): Few loose or mushy BMs; increase of 1-3 stools over normal daily number of stools; mild increase in ostomy output. - MODERATE (SCALE 4-7): Increase of 4-6 stools daily over normal; moderate increase in ostomy output. * SEVERE (SCALE 8-10; OR 'WORST POSSIBLE'): Increase of 7 or more stools daily over normal; moderate increase in ostomy output; incontinence. Reports moderate, 7 loose and watery Bms in last 24 hours. 2. ONSET: The diarrhea begin about a week ago she had it for 3 days, stopped for 2 but took imodium. Then started again. 3. BM CONSISTENCY: Pt reports watery diarrhea. 4. VOMITING: Denies 5. ABDOMINAL PAIN: Denies, states she had some at [facility] but none now. 6. ABDOMINAL PAIN SEVERITY: Denies - MILD (1-3): doesn't interfere with normal activities, abdomen soft and not tender to touch - MODERATE (4-7): interferes with normal activities or awakens from sleep, abdomen tender to touch - SEVERE (8-10): excruciating pain, doubled over, unable to do any normal activities Denies 7. ORAL INTAKE: Denies vomiting, How much liquids have you had in the past 24 hours? Pt reports she had Vitamin water, cammie al, and water. States probably 42 oz. Has been having popcicles. 8. HYDRATION: Pt denies dry mouth [not just dry lips], too weak to stand, ordizziness. She states she may have had new weight loss. Pt reports she last urinated at 330 am. She states she has been drinking Vitamin water as much as she can. 9. EXPOSURE: Denies traveling to a foreign country recently. Denies exposure to anyone with diarrhea. Denies having eaten any food that was spoiled. Last thing she ate was a chicken salad sandwich from [employer], talked with Dr Tyler about possible spoiled hudson and that it should run it's course soon. 10. ANTIBIOTIC USE: Denies. 11. OTHER SYMPTOMS: Pt denies fever, blood in stool, or nausea. 12. : Postmenopausal. Protocols used: [id number] documented in this encounterNew[facility]06-14-2023 History and physical note * Daphne Araujo APRN.[facility] - 08/07/2022 11:18 AM EDT HISTORY AND PHYSICAL EXAMINATION SERVICE DATE: 08/07/2022 SERVICE TIME: 12:33 PM PRIMARY CARE PHYSICIAN: Erica Cannon MD REASON FOR VISIT: Meggan Arita is a 61 year old female who is scheduled for Procedure(s): PHACOEMULSIFICATION CATARACT IMPLANT INTRAOCULAR LENS W/O ENDOSCOPIC CYCLOPHOTOCOAGULATION (Left) at the request of Dr. John Caldwell MD for consultation. My final recommendation will be communicated back to the requesting physician by way of shared medical record or letter. Subjective The patient has the following: ACTIVE PROBLEM LIST Hypertension Obstructive Sleep Apnea Asthma Esophageal Reflux Generalized Osteoarthrosis, Unspecified Site Anxiety State Iron Deficiency Anemia, Unspecified Edema Spinal Stenosis, Lumbar Region, Without Neurogenic Claudication Allergic Rhinitis Chronic Hepatitis, Unspecified (Hcc) Pulmonary Hypertension (Hcc) Bmi 60.0-69.9, Adult (Hcc) Type 2 Diabetes (Hcc) Depression Primary Osteoarthritis of Both Knees Ulcer of Left Lower Extremity, Limited to Breakdown of Skin (Hcc) Bilateral Leg Edema Mixed Hyperlipidemia Stage 3 Chronic Kidney Disease (Hcc) COVID-19 Immunization Status Overdue - COVID-19 VACCINE (4 - Booster for Moderna series) Overdue since 04/09/2021 02/12/2021 Imm Admin: COVID-19 original vaccine, full dose, monovalent (MODERNA) 05/25/2020 Imm Admin: COVID-19 original vaccine, full dose, monovalent (MODERNA) 04/28/2020 Imm Admin: COVID-19 original vaccine, full dose, monovalent (MODERNA) CHIEF COMPLAINT: Pre-op exam HPI: Meggan Arita is a 61 year old seen for PAC due to scheduled above surgery because of lefteye cataract. 06/04/2022, Dr. Caldwell Plan: Cataract Presurgical Documentation Cataract: Left eye (OS) Target Distance vision Current Visual Acuity Right Eye Distance CC 20/20 Left Eye Distance CC HM Best Corrected Vision Right Eye 20/20 Glare Testing: Left Eye Off 20/20 Left Eye Low 20/30 Left Eye Medium 20/40 Left Eye High 20/50 Visual Function: Meggan Arita states that the decline in vision from the cataract impedes her abilities as listed in the HPI, as well as other activities of daily living. Meggan Arita has confirmed that she is no longer able to function adequately on a day-to-day basis because of her current visual condition. Further, it is my medical opinion that the cataract is the primary cause, or at least a significantly contributory cause of her visual dysfunction. With uncomplicated cataract surgery and lens implantation, it is my expectation that her visual function and quality of life will improve, significantly. REVIEW OF SYSTEMS: General: No weight loss, malaise or fevers. Neurological: No history of TIA's, stroke, TRANSCRIPTION TYPIST tumor, impaired sensorium, hemiplegia, paraplegia orquadraplegia. No neurological symptoms or problems. Respiratory: +seasonal allergies Positive for: asthma (on rx and as needed), obstructive sleep apnea and CPAP/BiPAP compliant. Negative for: COPD, pneumonia within 6 weeks, tobacco use and URI < 2 weeks. Cardiovascular: +pulmonary HTN Positive for: hyperlipidemia and hypertension Negative for: anticoagulation therapy, arrhythmia, atrial fibrillation, CAD, chest pain, CHF, congenital heart defect, DVT/PE, recent OH, murmur/valvular heart disease, open heart surgery and valve surgery. GI: Positive for: GERD (on rx) and nausea Negative for: abdominal pain, dysphagia, hepatitis, irritable bowel syndrome, inflammatory bowel disease, liver disease, pancreatitis, vomiting and ETOH >2 drinks/day. : Positive for: renal failure and urinary tract infection (hx). Negative for: dysuria, frequent urination, hesitancy, urinary incontinence and nephrolithiasis. CHEMICAL SPRAYER: Negative for abnormal vaginal bleeding, abnormal vaginal discharge. Endocrine: Positive for: diabetes mellitus. Patient's diabetes mellitus is controlled by weekly injectable. Negative for: hypothyroidism. Hematology: Positive for: anemia and iron deficiency anemia. Negative for: bruises/bleeds easily, factor V Leiden, transfusion of at least 4 units within 72 hours prior to surgery and chronic anti-coagulation/platelet meds. Oncology: No history of CA metastasis, chemo within 30 days, or radiotherapy within 90 days. No history of oncological symptoms or problems. Psych: Positive for: anxiety and depression. Musculoskeletal: Positive for: joint pain and swelling. Skin: Negative for lesions, rash and itching. PAST MEDICAL HISTORY Diagnosis Date Acute gastritis without mention of hemorrhage ALLERGIC RHINITIS NOS 07/15/2007 ANXIETY STATE NOS 12/09/2006 Carpal tunnel syndrome 04/10/2007 Bilateral symptoms with the left worse than the right as of 04-03 CHOLELITH W CHOLECYS NEC 02/07/2005 Lap favio in 03-01 Chronic hepatitis, unspecified (HCC) 03/06/2005 Depression Edema 06/01/2007 Admit 07-08-08 for RLE venous stasis ulcer on Cubicin. Put pt on disability from 08-03-08 to 11-24-08 Esophageal reflux GENERAL OSTEOARTHROSIS 10/29/2006 Headache(784.0) 01/20/2007 [facility] 12-26: consid Sjogren's, CT chest/MRI head/HYUN/KEO/OSMANY/ANCA/SSA/SSB neg Again reinforced the need to start CPAP on 03-04-07: unable to afford as of 04-03 for insurance issues INSOMNIA NOS 07/31/2007 IRON DEFIC ANEMIA NOS 01/20/2007 Colon 03-22-02 ([facility]): no polyps, masses or AVMs Lactose intolerance Low blood potassium 10/20/2014 Low magnesium level 07/08/2016 Morbid obesity (HCC) Obesity, unspecified Obstructive sleep apnea Other dyspnea and respiratory abnormality Primary osteoarthritis of both knees 03/08/2020 severe narrowing of the medial joint space with marginal osteophytes--x-ray knee 2016 SPINAL STENOSIS-LUMBAR 07/09/2007 Stasis edema with ulcer (HCC) 08/02/2013 Type II or unspecified type diabetes mellitus without mention of complication, not stated as uncontrolled 08/05/2007 Unspecified asthma(493.90) Unspecified essential hypertension PAST SURGICAL HISTORY Procedure Laterality Date BIOPSY LIVER NEEDLE PERCUTANEOUS 03/06/05 DELIVERY ONLY 1979 , low cervical DELIVERY ONLY 1980 , low cervical DELIVERY ONLY 1986 , low cervical COLONOSCOPY FLX DX W/COLLJ SPEC WHEN PFRMD 01/30/16 Colonoscopy [facility] outpt EGD TRANSORAL BIOPSY SINGLE/MULTIPLE 07/22/06 ESOPHAGOGASTRODUODENOSCOPY TRANSORAL DIAGNOSTIC 2001 EGD ESOPHAGOGASTRODUODENOSCOPY TRANSORAL DIAGNOSTIC 01/30/16 EGD [facility] out[facility] IMPLANT MESH OPN HERNIA RPR/DEBRIDEMENT CLOSURE 03/06/05 LAPAROSCOPY SURG RPR INITIAL INGUINAL HERNIA 03/06/05 LAPS SURG CHOLECYSTECTOMY W/CHOLANGIOGRAPHY 03/06/05 LIG/TRNSXJ FLP TUBE ABDL/VAG APPR UNI/BI 1986 Tubal ligation OPTX ANKLE DISLOCATION W/REPAIR/INT/XTRNL FIXJ ORIF Ankle FAMILY HISTORY Problem Relation Age of Onset other (CVA) Father Heart Mother Diabetes Mother Social History Tobacco Use Smoking status: Never Smokeless tobacco: Never Tobacco comments: Father smoked in childhood home . ETS exposure in current home. Vaping Use Vaping Use: Never used Substance Use Topics Alcohol use: No Drug use: No Prior to Admission medications as of 08/07/22 1121 Medication Sig Last Dose Taking ferrous sulfate (IRON ORAL) Take by mouth. Taking Yes Chlorhexidine Gluconate (PERIDEX) 0.12 % solution Use 15 mL as instructed twice daily. Rinse aroundmouth for 30 seconds then expectorate (spit out). Taking Yes LORazepam (ATIVAN) 1 mg tablet Take 0.5-1 tablets by mouth once daily as needed for anxiety for up to 30 days. Do not start before August 15, 2022. Taking Yes ondansetron (ZOFRAN) 4 mg tablet Take 1 tablet by mouth every 8 hours as needed. Taking Yes tirzepatide (MOUNJARO) 7.5 mg/0.5 mL pen injector Inject 7.5 mg subcutaneously one time a week. Taking Yes WALKER ROLLATOR SEAT WITH 6" WHEELS - RED Diagnosis: Unsteady gait, primary osteoarthritis both knees, decreased mobility Taking Yes cyclobenzaprine (FLEXERIL) 5 mg tablet Take 1 tablet by mouth three times daily as needed. Taking Yes Leg Brace (KNEE SUPPORT BRACE) misc 1 Each as directed. Taking Yes nystatin (MYCOSTATIN) powder Apply 1 application to affected area four times daily. Taking Yes venlafaxine ER (EFFEXOR XR) 75 mg 24 hr capsule Take 1 capsule by mouth once daily. Taking Yes flash glucose sensor (FREESTYLE SHAKIRA 2 SENSOR) kit Apply new sensor every fourteen (14) days to upper arm. Taking Yes atorvastatin (LIPITOR) 40 mg tablet Take 1 tablet by mouth once daily. Taking Yes furosemide (LASIX) 40 mg tablet Take 1 tablet by mouth once daily. Taking Yes albuterol (PROVENTIL) 2.5 mg /3 mL (0.083 %) nebulizer solution inhale contents of one vial in nebulizer every 6 hours if needed for wheezing and shortness of breath Taking Yes albuterol HFA (PROVENTIL HFA, VENTOLIN HFA) 90 mcg/actuation inhaler Inhale 2 Puffs as instructed every 4 hours as needed for wheezing/shortness of breath. May give preferred namebrand (per formularyand/or patient preference) Taking Yes fluticasone (FLONASE) 50 mcg/actuation nasal spray Use 2 Sprays in each nostril once daily as needed. Taking Yes insulin lispro (HUMALOG KWIKPEN INSULIN) 100 unit/mL Sliding scale as indicated 3 times daily with meals, inject subq 200 to 250 - 5 units 251 to 300 - 8 units 301 to 350 - 12 units 351 to 400 - 15 units over 400 will need to call her doctor for guidance. Taking Yes ipratropium (ATROVENT) 0.02 % nebulizer solution Use 2.5 mL via nebulizer four times daily as needed (wheezing). Use over 5-15minutes. Use in addition to albuterol nebulizer. Taking Yes pantoprazole DR (PROTONIX) 40 mg tablet Take 1 tablet by mouth once daily. Taking Yes losartan (COZAAR) 100 mg tablet Take 1 tablet by mouth once daily. Taking Yes metOLazone (ZAROXOLYN) 5 mg tablet take 1 tablet by mouth 30 MINUTES PRIOR TO TAKING LASIX IF NEEDED FOR INCREASED SWELLING DIRECTED Taking Yes insulin needles, DISPOSABLE, (BD INSULIN PEN NEEDLE UF) 31 gauge x 5/16" USE 6 DAILY DIRECTED with Toujeo and Humalog and Byetta Taking Yes Diaper,Brief, Adult,Disposable (DISPOSABLE BRIEF) Bariatric Briefs - Prevail. Going thru [employer]. 2 per day. Taking Yes blood sugar diagnostic (BLOOD GLUCOSE TEST) test strip Test blood sugar(s) four times daily. Dx: Type 2 DM - Controlled E11.9 Insulin: No Taking Yes Lancets lancets Test blood sugar(s) 4 times daily. Dx: Type 2 DM - Controlled E11.9 Insulin: No Taking Yes montelukast (SINGULAIR) 10 mg tablet Take 1 tablet by mouth daily at bedtime. Taking Yes oxaprozin (DAYPRO) 600 mg tablet Take 1-2 tablets by mouth once daily. as needed for knee pain. Taking Yes mupirocin (BACTROBAN) 2 % cream Use up to three times a day. Location: left inner thigh Taking Yes gabapentin (NEURONTIN) 100 mg capsule Take 2 capsules by mouth daily at bedtime for 180 days. Yes mometasone-formoterol (DULERA) 200-5 mcg/actuation inhaler Inhale 2 Puffs as instructed twice daily. Taking Yes ketoconazole (NIZORAL) 2 % cream apply to affected area OF RASH AND SURROUNDING AREA UNDER BREAST once daily Taking Yes bismuth subsalicylate (PEPTO-BISMOL) 262 mg chew Take 2 tablets by mouth four times daily. Taking Yes docusate sodium (COLACE) 100 mg capsule Take 2 capsules by mouth DAILY AT 6 PM. Taking Yes CPAP AutoPAP 5-12 CM H2O with humidification. Mask (per patient preference) optional chin strap (ifindicated) , filters, tubing, humidifier and lifetime supplies. Taking Yes ipratropium bromide (ATROVENT) 42 mcg (0.06 %) nasal spray Use 2 Sprays in each nostril four times daily. Taking Yes Miscellaneous Medical Supply Order: Overnight pulse ox on 4LPM Diagnosis: R09.02 (checking if needsO2 increased at night) Taking Yes Blood Pressure Monitor (BLOOD PRESSURE KIT) kit For home use Dx: labile blood pressure Taking Yes loratadine (CLARITIN) 10 mg tablet Take 1 tablet by mouth once daily. Taking Yes Blood-Glucose Meter (FREESTYLE FREEDOM LITE) monitoring kit 1 Each as needed. Taking Yes polyethylene glycol 3350 (MIRALAX) 17 gram/dose powder 2 scoop in liquid daily as needed for bowel movement Taking Yes COMPOUNDED PRESCRIPTION TENS Unit 4 lead. Use as directed. Needs refills for leads 1 per month as needed Dispense 1 with 5 refills. (M48.06) Spinal stenosis, lumbar region, without neurogenic claudication Taking Yes Nebulizer NEBULIZER FOR HOME USE. DX: (J45.20) Mild intermittent asthma without complication TakingYes Medication Comments documented by Kami Carl RN on 04/04/2016 at 2258. Pt no longer uses a CPAP, metformin or byetta 04/04/2016 TP ALLERGIES Allergen Reactions Ciprofloxacin Diarrhea Nausea and diarrhea Buspar [Buspirone H* Other: See Comments Insomnia Carafate [Sucralfat* tightens up chest unable to swallow Celebrex [Celecoxib] Other: See Comments tachycardia, heart palpitations Cheratussin Itching Codeine GI Upset sick to her stomach but able to tolerate in Tylenol with codeine #3 Doxycycline Intolerance, Vomiting Iodine difficulty breathing, swelling, hives Latex difficulty breathing and swelling Levaquin [Levofloxa* GI Upset Meloxicam Rash pruritic rash within hours of taking med Penicillins Swelling, Shortness of Breath Prednisone Mental Status Change Vicodin [Hydrocodon* Itching swelling Objective PHYSICAL EXAM: General: alert and oriented (x3), healthy appearance and morbidly obese. Pertinent negatives noted - not distressed. wheelchair. Skin: normal color, no rash or lesions. HEENT: EOM intact and pupils equal round. Pertinent negatives noted - no carotid bruit. Cardiovascular: regular rate and rhythm, normal S1 and S2, no rub, murmurs, or gallop. Respiratory: normal breath sounds, no wheezes or crackles. No chest wall deformity or tenderness. Abdomen: soft. Pertinent negatives noted - not tender. Extremities: no deformity, no edema or tenderness, no joint swelling or clubbing. Neurological: normal cognition and motor skills. Gait normal. No weakness or sensory deficit. PAIN ASSESSMENT: VITALS: BP 108/68 Pulse 66 Temp (Src) 97.3 (Temporal) Resp 16 Ht 5' 8" (1.73m) Wt 347 lb (157.4kg) SpO2 96% LMP 02/11/2011 BMI 52.77 kg/(m^2). Diagnostic tests reviewed for today's visit: Lab Value Units Date High Low HB No results within date range. HCT No results within date range. WBC No results within date range. PLT No results within date range. NA No results within date range. K No results within date range. GLUC No results within date range. BUN No results within date range. CREAT No results within date range. PTSEC No results within date range. INR No results within date range. APTT No results within date range. ALT No results within date range. AST No results within date range. TBILI No results within date range. TSH No results within date range. Lab Value Units Date High Low HCGQT No results within date range. UHCG No results within date range. HCG, BODY* No results within date range. Lab Value Units Date High Low ABORHD No results within date range. ABSCREEN No results within date range. Hemoglobin A1C Date Value 02/27/2022 5.3 07/07/2021 7.4 % 04/30/2021 7.2 % 09/05/2020 6.9 % 03/28/2020 6.7 % 11/06/2019 8.4 % 07/26/2019 7.5 % 03/30/2019 7.1 % No results found for this or any previous visit (from the past 8760 hour(s)). No results found for this or any previous visit (from the past 92363 hour(s)). Assessment Patient has the following medical conditions which may affect fabien-operative course: Bilateral leg edema Assessment: on rx, PCP managing Pulmonary hypertension Assessment: moderate per echo 2014, new echo ordered, surgery isn't until 09/02/2022, reviewed with pt recommended f/u with PCP for further monitoring 09/2014 Echo - Estimated right ventricular systolic pressure is likely underestimated due to a weak or incomplete tricuspid regurgitation signal and is, at least, 51 mmHg consistent with moderate pulmonary hypertension. Estimated right atrial pressure is 5 mmHg. Hypertension Assessment: controlled on rx Last 14 BP Last 14 Encounter BP Readings: Date: BP: 08/07/2022 108/68 04/30/2021 126/63 06/19/2020 148/72 03/30/2019 120/80 02/14/2019 140/72 01/25/2019 120/80 09/05/2018 132/66 07/18/2018 144/80 06/03/2018 136/76 05/24/2018 118/78 04/03/2018 120/82 02/21/2018 174/75 02/18/2018 136/74 11/06/2017 190/92 Mixed hyperlipidemia Assessment: c/w statin Obstructive sleep apnea Assessment: c/w CPAP Asthma Assessment: controlled on rx and as needed 2014 Spirometry on file IMPRESSION: No obstructive ventilatory impairment. No evidence of significant response to inhaled bronchodilator administration. Moderate restrictive ventilatory impairment. Normal gas exchange. These findings are consistent with the mechanical effects of obesity, and the body mass index based on height and weight measured today is 69.02. Unspecified Iron Deficiency Anemia Assessment: on rx, H/H 11.5/33.9 05/28/2022 scanned into lab results Type 2 diabetes (HCC) Assessment: controlled on weekly injectable A1c 5.0 05/28/2022 scanned into labs Ulcer of left lower extremity, limited to breakdown of skin (HCC) Assessment: improved, nearly resolved per pt Depression Assessment: and anxiety, stable on rx per pt Chronic hepatitis, unspecified (HCC) Assessment: hx, pt denies dx Albumin (g/dL) Date Value 07/07/2021 3.7 (L) Bilirubin, Total (mg/dL) Date Value 07/07/2021 0.8 Bilirubin, Conjug (mg/dL) Date Value 08/30/2004 0.1 Alkaline Phosphatase (U/L) Date Value 07/07/2021 153 (H) AST (U/L) Date Value 07/07/2021 19 ALT (U/L) Date Value 07/07/2021 14 Protein, Total (g/dL) Date Value 07/07/2021 8.6 (H) Esophageal Reflux Assessment: controlled on rx Stage 3 chronic kidney disease (HCC) Assessment: sCr 1.37 05/28/2022 scanned into labs Lee Activity Status Index: METS: Walk indoors, such as around the house (1.75 METs) Do light work around the house, such as dusting or washing dishes (2.70 METs) Take care of self; that is eating, dressing, bathing, using the toilet (2.75 METs) Walk a block or two on level ground (2.75 METs) DASI Score: 9.95 (Wheelchair for public distances, uses objects and assistance ambulating at home) Patient denies any chest pain or undue shortness of breath with the above physical activity. Clinical Frailty Scale: 4. Apparently vulnerable STOP-Bang Score: Snores loudly Has been observed to stop breathing or choking/gasping during sleep Has or is being treated for high blood pressure BMI greater than 35 kg/m^2 Patient over 50 years old Has a large neck Denies feeling tired, fatigued, or sleepy during the daytime Non-male patient STOP-Bang Score: 6 [id number] Score: Age: <65 Sex: female CHF history: No Hypertension history: Yes Stroke/TIA/thromboembolism history: No Vascular disease history: No Diabetes history: Yes [id number] Score: 3 ARISCAT Score: Age: 51-80 Preoperative SpO2: >=96% Respiratory infection in the last month: No Preoperative anemia: Yes Surgical incision: peripheral Duration of surgery: <2 hrs Emergency procedure: No ARISCAT Score: 14 ASA Class: 3 ANESTHESIA FINDINGS: Intubation History: No history of difficult intubation Significant Anesthesia Considerations: none Airway History: No history of difficult airway I - PHYSICAL EVALUATION AIRWAY Patient intubated: No. Tracheostomy tube not present Mallampati: III. TM distance: >3 FB. Neck ROM: full ROM without neurological symptoms. Mouth opening: adequate. Short neck: no. Thick neck: yes Samaniego present: no Lip Bite Test: II Microretrognathia/Micronagthia/Recessed Chin: No DENTAL Dentures, upper: complete. II - ANESTHESIA PLAN ASA Score: 3 Anesthetic Plan: other Anesthetic plan additional comments: *PACC/TCI - anesthesia choice. Beta Eric Monitoring Plan Post Procedure Analgesic Plan Informed Consent Anesthetic risks, benefits, alternatives, personnel and consent discussed: yes. Patient / Responsible Alliance Party agrees to proceed: yes Patient / Surrogate agrees to blood products: blood products not planned Discussed the possibility of lip / dental damage: yes Prepared for Surgery: optimally prepared for surgery. CONSULTS: Patient does not require consults for optimization at this time Planned Anesthetic: other anesthesia choice The Following Tests/Procedures Have Been Initiated: Orders Placed This Encounter ferrous sulfate (IRON ORAL) Sig: Take by mouth. perflutren lipid microspheres 1.3 mL in NaCl (PF) 0.9% 10 mL injection (DEFINITY) sodium chloride 0.9 % (flush) 10 mL (BD POSIFLUSH) ECHO Standing Status: Future Standing Expiration Date: 08/08/2023 Order Specific Question: Disease / Condition: Answer: Pulmonary Disease Order Specific Question: Indication: Answer: Known pulmonary hypertension (surveillance greater than or equal to 1yr) Instructions Given to Patient: Instructions located in the after visit summary. Patient given verbal and written preop instructions and voices comprehension and compliance. SIGNATURE: Daphne Araujo APRN.CNP PATIENT NAME: Meggan Arita DATE: August 07, 2022 TIME: 11:18 AM PAGER/CONTACT #: documented in this encounter[facility]06-14-[facility]23 Instructions* Patient Instructions* Daphne Araujo APRN.CNP - 08/07/2022 11:18 AM EDT PATIENT PREOPERATIVE INSTRUCTIONS No ref. provider found has scheduled you for your procedure at this surgery center: [facility]: [phone] --[facility], [address], [place] [address]. Please read below carefully for your personalized instructions. Arrival Time for Surgery: - The Surgery Center or hospital where you are having surgery will call the afternoon before surgery (or Friday for Friday surgery) with a scheduled arrival time. - If you have not heard by 4 pm, please contact the surgery center above. Please be aware that emergency situations arise, which may delay or change your surgical time. If this happens, we will notify you as soon as possible and regret any inconvenience Dietary Restrictions: - No solid food after midnight. - You may have 12 ounces of clear liquids (water, clear juices such as apple juice or gatorade, carbonated beverages, clear tea, black coffee, jello) until 2 hours before scheduled arrival at facility. - no milk / coffee creamer - no pulp juices Medications: Unless instructed differently below, stay on all of your medications until your surgery. Approved medications to take the morning of surgery with a sip of water: albuterol (PROAIR) inhaler, atorvastatin (LIPITOR), gabapentin (NEURONTIN), loratadine (CLARITIN), losartan (COZAAR), dulera, montelukast (SINGULAIR), pantoprazole DR (PROTONIX), venlafaxine (EFFEXOR) Do not take furosemide (LASIX), metolazone the morning and/or day prior surgery If you start any new medications after today's visit, please contact the surgeon's office. Is Patient Diabetic:Yes Preoperative Instructions for Patient's with Diabetes Mellitus Diabetic Medication Instructions:Please take the following meds at your usual dose the day before surgery. DO NOT TAKE THE MORNING OF SURGERY; Trajenta, Metformin, Actos/Pioglitazone and Amaryl/Glimepiride. For the following Meds, please HOLD 2 DAYS PRIOR TO SURGERY: Glucotrol/Glipizide, Januvia/Sitagliptin, Glyburide, Prandin/Repaglinide, Starlix/Nateglinide,Symlin/Pramlintide, Dulaglutide/Trulicity, Exenatide (Bydureon/Byetta), Semaglutide (Ozempic, Rybelsus), Laraglutide (Victoza/Saxenda), Lixsenstide (Adlyxin). Insulin Medication Instructions:Please take the following medications at your usual dose the day before surgery. DO NOT TAKE THE MORNING OF SURGERY: Afrezza, Novolog, Regular Insulin, Apidra and Humalog Blood Thinning Medications: You do not need to hold blood thinners for cataract surgery Important Reminders: - If you are prescribed inhalers for breathing, continue using them. - Candy, mints, and tobacco products are NOT permitted the morning of surgery. - Hearing aids, dentures and glasses may be worn the morning of surgery. - NO jewelry, body piercings, makeup, hairpins or contacts are to be worn the day of surgery. If you develop symptoms such as a fever, cold, or flu, or have other changes to your health within TWO DAYS of scheduled surgery or the morning of surgery, please contact the surgery center above. Personal Belongings: -Please have photo ID and insurance cards. -If you do not have a copy of advance directives on file with us, please bring a copy with you on the day of surgery. - Leave ALL valuables and money at home or with family members. For Outpatient Procedures: - YOU MUST HAVE A RESPONSIBLE EXTERIOR DOOR INSTALLER TAKE YOU HOME. A HAIR DRYER OR RAIL PROJECT ENGINEER CANNOT BE MADE A RESPONSIBLE EXTERIOR DOOR INSTALLER. - We recommend that a responsible person stays with you overnight to take care of you. - You cannot stay in a hotel alone after outpatient surgery. You will not be permitted to have yoursurgery, if you do not have someone to take care of you. If you already have an Advance Directive, please fax a copy to [phone] or email to for it to be added to your chart. If you do not have an Advance Directive, you can find the appropriate form and more information at [email or web address]. We recommend that youcomplete the Advance Directive form found on the website and bring it with you the day of your surgery. It can be witnessed and scanned into your chart that day. Daphne Araujo APRN.NIKKY documented in this encounterNew[facility]06-08-2023 Miscellaneous Notes* Telephone Encounter - Lili Cummings RN - 08/01/2022 8:34 AM EDT Pt called and is notified of providers results and instructions. Pt voices understanding. Lili Cummings RN * Telephone Encounter - Erica Cannon MD - 07/31/2022 7:20 PM EDT She has follow up with [facility] 08/02 to discuss med and symptoms. The following approved medication requests have been transmitted electronically. Requested Prescriptions Signed Prescriptions Disp Refills Chlorhexidine Gluconate (PERIDEX) 0.12 % solution 118 mL 0 Sig: Use 15 mL as instructed twice daily. Rinse around mouth for 30 seconds then expectorate (spit out). Authorizing Provider: ERICA CANNON LORazepam (ATIVAN) 1 mg tablet 30 tablet 0 Sig: Take 0.5-1 tablets by mouth once daily as needed for anxiety for up to 30 days. Do not start before August 15, 2022. Authorizing Provider: ERICA CANNON MD * Telephone Encounter - Lili CummingsSHELBY - 07/31/2022 12:30 PM EDT Pt states since she has been on the Mounjaro she has been having bad headaches. She reports she wasput on Zofran for the nausea, but she is still nauseous the whole week between the injections but doesn't vomit. She states she is still eating like she was when she was at the half[place]way mostly protein with little to no carbs. She didn't know if this would be causing her to still have the nausea. She wanted to let provider know that her BS has been 117 for a month, not above or below that. Patient has been identified by name and date of : Yes, Provider Dr Cannon Date 07/31/22 Time 1231. Patient phones for refill(s): Requested Prescriptions Pending Prescriptions Disp Refills Chlorhexidine Gluconate (PERIDEX) 0.12 % solution 118 mL 0 Sig: Use 15 mL as instructed twice daily. Rinse around mouth for 30 seconds then expectorate (spit out). LORazepam (ATIVAN) 1 mg tablet 30 tablet 0 Sig: Take 0.5-1 tablets by mouth once daily as needed for anxiety for up to 30 days. Do not start before August 16, 2022. Date of last office visit in primary care: 05/21/22 Future visit: none Last 2 Encounter Wt Readings: Date: Wt: 04/30/2021 0 kg () 06/19/2020 205.9 kg (454 lb) Previous labs/tests for medication: Blood Pressure: BUN (mg/dL) Date Value 07/07/2021 18 09/05/2020 12 Sodium (mmol/L) Date Value 07/07/2021 140 09/05/2020 138 Last 1 Encounter BP Readings: Date: BP: 04/30/2021 126/63 Liver Function: ALT (U/L) Date Value 07/07/2021 14 09/05/2020 13 AST (U/L) Date Value 07/07/2021 19 09/05/2020 25 Please advise. Thank you. Lili Cummings, RN documented in this encounterNew[facility]06-01-2023 Miscellaneous Notes* Telephone Encounter - Ruchi Malone LPN - 07/25/2022 9:43 AM EDT COMPLETED,SIGNED AND FAXED BACK. * Telephone Encounter - Ruchi Malone LPN - 07/24/2022 1:17 PM EDT rec'd and to pcp to review. * Telephone Encounter - Nanci Dorado LPN - 07/24/2022 12:23 PM EDT Pt called and we will be getting a fax from [employer] for the following items for pt. 1)pullup depends the size depends on the pt's weight, pt thought maybe a 3 or 4. Pt uses approx 5 per day. 2)bed protectors and pt uses approx 2 per day. Please watch for fax. Pt gave the phone number for the above company. PH: [phone] Nanci Dorado LPN documented in this encounterNewark [facility]05-12-2023 History of Present illness Narrative* Aurora Aparicio RP - 07/05/2022 10:30 AM EDT Primary Care Pharmacy Visit CC (Reason for Consult): DM Goal: A1c<8% Last Collaborating Physician Visit: 05/21/2022 Meggan Arita is a 61 year old female presenting for follow up visit by telephone. Patient consents to pharmacy collaborative practice agreement. . At last visit with pharmacy on 05/31/22 the following changes were made: Ozempic was switched to Trulicity. Patient developed GI upset to Trulicity and was switched to Mounjaro on 06/26. HPI: Has switched to Mounjaro, recently started on Saturday 07/01 Not having any GI symptoms and tolerating well Reports BG readings have remained stable Her son has not been able to connect her CGM cj to [facility] to share readings DIET/EXERCISE/SOCIAL Hx: Not a great appetite at breakfast Will have yogurt at breakfast Lunch time: pickle beats with eggs, lunch meat and cheese strips Dinner: meatloaf, turkey burger, chicken breat and veggies (broccoli or salad) Beverages: sweet tea, lemonade, orange juice GLYCEMIC CONTROL: Glucometer present at visit: no Hypoglycemia: denies SMBG's: Typical BG reading 110-120s ROS: As above. Patient denies CP, SOB, YI, blurred vision, dizziness or lightheadedness Patient denies nausea, vomiting, diarrhea, abdominal pain Patient denies symptoms of hypoglycemia (sweating, anxiety, palpitations, hunger, and tremor) Patient denies symptoms of hyperglycemia (polyuria, polydipsia, polyphagia) Patient denies potential medication adverse effects Past medical, family and social history reviewed and updated. MEDICATIONS: Adherence: denies missed doses ALLERGIES Allergen Reactions Ciprofloxacin Diarrhea Nausea and diarrhea Buspar [Buspirone H* Other: See Comments Insomnia Carafate [Sucralfat* tightens up chest unable to swallow Celebrex [Celecoxib] Other: See Comments tachycardia, heart palpitations Cheratussin Itching Codeine GI Upset sick to her stomach but able to tolerate in Tylenol with codeine #3 Doxycycline Intolerance, Vomiting Iodine difficulty breathing, swelling, hives Latex difficulty breathing and swelling Levaquin [Levofloxa* GI Upset Meloxicam Rash pruritic rash within hours of taking med Penicillins Swelling, Shortness of Breath Prednisone Mental Status Change Vicodin [Hydrocodon* Itching swelling Current Outpatient Medications Medication Sig Dispense Refill tirzepatide (MOUNJARO) 5 mg/0.5 mL pen injector Inject 5 mg subcutaneously one time a week. 2 mL 3 WALKER ROLLATOR SEAT WITH 6" WHEELS - RED Diagnosis: Unsteady gait, primary osteoarthritis both knees, decreased mobility 1 Each 0 Chlorhexidine Gluconate (PERIDEX) 0.12 % solution Use 15 mL as instructed twice daily. Rinse aroundmouth for 30 seconds then expectorate (spit out). 118 mL 0 LORazepam (ATIVAN) 1 mg tablet Take 0.5-1 tablets by mouth once daily as needed for anxiety for up to 30 days. 30 tablet 0 cyclobenzaprine (FLEXERIL) 5 mg tablet Take 1 tablet by mouth three times daily as needed. 90 tablet 1 Leg Brace (KNEE SUPPORT BRACE) misc 1 Each as directed. 1 Each 1 nystatin (MYCOSTATIN) powder Apply 1 application to affected area four times daily. 60 g 2 venlafaxine ER (EFFEXOR XR) 75 mg 24 hr capsule Take 1 capsule by mouth once daily. 90 capsule 3 flash glucose sensor (FREESTYLE SHAKIRA 2 SENSOR) kit Apply new sensor every fourteen (14) days to upper arm. 6 Each 4 atorvastatin (LIPITOR) 40 mg tablet Take 1 tablet by mouth once daily. 30 tablet 11 furosemide (LASIX) 40 mg tablet Take 1 tablet by mouth once daily. 90 tablet 3 albuterol (PROVENTIL) 2.5 mg /3 mL (0.083 %) nebulizer solution inhale contents of one vial in nebulizer every 6 hours if needed for wheezing and shortness of breath 300 mL 5 albuterol HFA (PROVENTIL HFA, VENTOLIN HFA) 90 mcg/actuation inhaler Inhale 2 Puffs as instructed every 4 hours as needed for wheezing/shortness of breath. May give preferred namebrand (per formularyand/or patient preference) 3 Each 3 fluticasone (FLONASE) 50 mcg/actuation nasal spray Use 2 Sprays in each nostril once daily as needed. 3 Each 3 insulin lispro (HUMALOG KWIKPEN INSULIN) 100 unit/mL Sliding scale as indicated 3 times daily with meals, inject subq 200 to 250 - 5 units 251 to 300 - 8 units 301 to 350 - 12 units 351 to 400 - 15 units over 400 will need to call her doctor for guidance. 5 Each 3 ipratropium (ATROVENT) 0.02 % nebulizer solution Use 2.5 mL via nebulizer four times daily as needed (wheezing). Use over 5-15minutes. Use in addition to albuterol nebulizer. [address] (PROTONIX) 40 mg tablet Take 1 tablet by mouth once daily. 90 tablet 3 losartan (COZAAR) 100 mg tablet Take 1 tablet by mouth once daily. 90 tablet 3 metOLazone (ZAROXOLYN) 5 mg tablet take 1 tablet by mouth 30 MINUTES PRIOR TO TAKING LASIX IF NEEDED FOR INCREASED SWELLING DIRECTED 90 tablet 1 insulin needles, DISPOSABLE, (BD INSULIN PEN NEEDLE UF) 31 gauge x 5/16" USE 6 DAILY DIRECTED with [place] and Humalog and Byetta 150 Each 5 Diaper,Brief, Adult,Disposable (DISPOSABLE BRIEF) Bariatric Briefs - Prevail. Going thru [employer]. 2 per day. 96 Each 1 blood sugar diagnostic (BLOOD GLUCOSE TEST) test strip Test blood sugar(s) four times daily. Dx: Type 2 DM - Controlled E11.9 Insulin: No 150 Strip 11 Lancets lancets Test blood sugar(s) 4 times daily. Dx: Type 2 DM - Controlled E11.9 Insulin: No 200Each 11 magnesium oxide (MAG-OX) 400 mg (241.3 mg magnesium) tablet Take 1 tablet by mouth twice daily. 60 tablet 11 montelukast (SINGULAIR) 10 mg tablet Take 1 tablet by mouth daily at bedtime. 30 tablet 11 oxaprozin (DAYPRO) 600 mg tablet Take 1-2 tablets by mouth once daily. as needed for knee pain. 60 tablet 1 mupirocin (BACTROBAN) 2 % cream Use up to three times a day. Location: left inner thigh 45 g 1 emollient combination no.114 (EUCERIN ADVANCED REPAIR) crea Apply 1 application to affected area once daily. 85 g 5 insulin degludec (TRESIBA FLEXTOUCH U-200) 200 unit/mL (3 mL) injection Inject 95 Units subcutaneously daily at bedtime. 15 mL 11 topiramate (TOPAMAX) 50 mg tablet Take 1 tablet by mouth daily at bedtime. 30 tablet 11 gabapentin (NEURONTIN) 100 mg capsule Take 2 capsules by mouth daily at bedtime for 180 days. 60 capsule 5 iron polysaccharide complex (FERREX-150) 150 mg iron capsule Take 1 capsule by mouth twice daily. 60 capsule 1 mometasone-formoterol (DULERA) 200-5 mcg/actuation inhaler Inhale 2 Puffs as instructed twice daily. 1 Inhaler 11 ketoconazole (NIZORAL) 2 % cream apply to affected area OF RASH AND SURROUNDING AREA UNDER BREAST once daily 60 g 2 bismuth subsalicylate (PEPTO-BISMOL) 262 mg chew Take 2 tablets by mouth four times daily. 112 tablet 0 docusate sodium (COLACE) 100 mg capsule Take 2 capsules by mouth DAILY AT 6 PM. 60 capsule 4 CPAP AutoPAP 5-12 CM H2O with humidification. Mask (per patient preference) optional chin strap (ifindicated) , filters, tubing, humidifier and lifetime supplies. 1 Device 0 potassium chloride ER (K-DUR, KLOR-CON) 20 mEq tablet Take 2 tablets by mouth three times daily. 180 tablet 11 ipratropium bromide (ATROVENT) 42 mcg (0.06 %) nasal spray Use 2 Sprays in each nostril four times daily. 1 Bottle 1 Miscellaneous Medical Supply Order: Overnight pulse ox on 4LPM Diagnosis: R09.02 (checking if needsO2 increased at night) 1 Each 0 ondansetron (ZOFRAN) 4 mg tablet Take 1 tablet by mouth every 8 hours as needed. 30 tablet 1 Ferrous Gluconate 240 mg (27 mg iron) tablet Take 1 tablet by mouth once daily. As directed 30 tablet 5 Blood Pressure Monitor (BLOOD PRESSURE KIT) kit For home use Dx: labile blood pressure 1 Kit 0 loratadine (CLARITIN) 10 mg tablet Take 1 tablet by mouth once daily. 30 tablet 11 Blood-Glucose Meter (FREESTYLE FREEDOM LITE) monitoring kit 1 Each as needed. 1 Each 0 polyethylene glycol 3350 (MIRALAX) 17 gram/dose powder 2 scoop in liquid daily as needed for bowel movement 1 Bottle 11 COMPOUNDED PRESCRIPTION TENS Unit 4 lead. Use as directed. Needs refills for leads 1 per month as needed Dispense 1 with 5 refills. (M48.06) Spinal stenosis, lumbar region, without neurogenic claudication 1 Each 0 Nebulizer NEBULIZER FOR HOME USE. DX: (J45.20) Mild intermittent asthma without complication 1 Device 0 No current facility-administered medications for this visit. EXAM: Last 3 Encounter BP Readings: Date: BP: 04/30/2021 126/63 06/19/2020 148/72 03/30/2019 120/80 Wt: 0 kg () BMI: 0.00 kg/(m^2) LABS: reviewed Lab Results Component Value Date HBA1C 5.3 02/27/2022 HBA1C 7.4 07/07/2021 HBA1C 7.2 04/30/2021 HBA1C 6.9 09/05/2020 HBA1C 6.7 03/28/2020 HBA1C 8.4 11/06/2019 Glucose 179 07/07/2021 BUN 18 07/07/2021 Creatinine, Whole Blood (iSTAT) 0.90 07/07/2021 Sodium 140 07/07/2021 Potassium 4.2 07/07/2021 Chloride 93 07/07/2021 CO2 39 07/07/2021 Protein, Total 8.6 07/07/2021 Albumin 3.7 07/07/2021 Calcium 9.4 07/07/2021 Alkaline Phosphatase 153 07/07/2021 Bilirubin, Total 0.8 07/07/2021 AST 19 07/07/2021 ALT 14 07/07/2021 Lab Results Component Value Date CHOL 151 04/30/2021 CHOL 119 03/28/2020 LDL 90 04/30/2021 LDL 70 03/28/2020 HDL 50 04/30/2021 HDL 37 03/28/2020 TG 54 04/30/2021 TG 59 03/28/2020 Albumin/Creat Ratio (mg/g) Date Value 11/06/2019 Not calculated eGFR- (no units) Date Value 09/05/2020 >60 PHARMACOTHERAPY ASSESSMENT/PLAN: 1. Type 2 diabetes (HCC) - ICD9: 250.00, ICD10: E11.9 A1c goal < 8%; Controlled (last A1c 5.3%); SMBG stable. Recently started Mounjaro and toleratingwith no ADEs, will continue same regimen. - Continue Mounjaro 5 mg once weekly - Continue Tresiba 95 units once daily at bedtime - Continue Humalog three times daily with sliding scale 200 to 250 - 5 units 251 to 300 - 8 units 301 to 350 - 12 units 351 to 400 - 15 units over 400 will need to call her doctor for guidance. Follow up: Pharmacy follow up: 08/02/22 Aurora Aparicio, RealD, BCACP Primary Care Clinical Pharmacist The majority of the pharmacy visit (> 50%) was spent counseling and/or coordinating care for thepatient. interaction: telephonic time was 20 minutes. documented in this encounterNewark Hospital05-05-2023 Miscellaneous Notes* Telephone Encounter - Ruchi Malone LPN - 06/28/2022 10:21 AM EDT Approved from 06/27/22 to 06/26/23. My chart message to pt and info relayed to pharmacy. * Telephone Encounter - Chayito Boyd Ma - 06/27/2022 11:10 AM EDT Prior Authorization has been completed online at [employer] for Dania, will await response. [id number] Please keep encounter open until final decision has been received and documented from insurance company. Chayito Boyd MA * Telephone Encounter - Maria Dolores Ivan RN - 06/27/2022 10:36 AM EDT Prior Authorization Documentation Patient calls to request Prior Authorization Prior authorization requested for the following medication: Medication: Miguel Angelunjaro Provider: Lydia North Insurance Company Name: [facility] Medicaid Insurance Company Phone number: Not given Patient ID number: [id number] [email or web address] Telephone number: [phone] Maria Dolores Ivan RN documented in this encounterNewark Hospital05-04-2023 Miscellaneous Notes* Telephone Encounter - Maria Dolores Ivan RN - 06/27/2022 10:35 AM EDT See TE from 06/27/2022 with Aurora Aparicio. Maria Dolores Ivan RN * Telephone Encounter - Silvestre Jain APRN.CNP - 06/25/2022 8:48 AM EDT Noted, may need a dose decrease, will see what stool studies show, treat if needed and then adjust trulicity if no other issues. * Telephone Encounter - Sridevi Isabel LPN - 06/25/2022 8:41 AM EDT PATIENT NOTIFIED OF SAME. Will have someone come in and cone picker stool kit from the lab. Trulicity is causing her to have nausea for about 3 days after taking her injection. She states this started sometime before the abdominal pain, cramping and diarrhea started. * Telephone Encounter - Silvestre Jain APRN.CNP - 06/24/2022 4:19 PM EDT It looks like she was recently on a few rounds of antibiotics. I have concerns of the potential forthis to be a c diff infection. Will place orders for stool studies prior to starting treatment. Cancoordinate with her and her family to get stool studies done? Thank you! * Telephone Encounter - Maria Dolores Ivan RN - 06/21/2022 4:38 PM EDT Patient calls to report that she is having symptoms of abdominal pain and cramping, diarrhea, and some nausea. Patient reports symptoms on-going since Friday06/16/2022. Patient reports that every time she feels this way she tests positive for H- pylori. Patient asking if orders could be placed to check. Patient reports that she is currently homebound under home health and unable to come in for an appointment. She reports that someone could cone picker supplies to do the test if provider is willing to order. Please review and advise, Maria Dolores Ivan RN documented in this encounterCleveland [id number] Miscellaneous Notes* Telephone Encounter - Leticia Valerioashley [facility] - 06/26/2022 12:36 PM EDT Called patient back. She states she would like to stop taking Trulicity. States "it is affecting meto the point that I don't want to take it." Having nausea and abdominal cramping. Has been back on Trulicity 4.5mg for 3-4 weeks withouth improvement in sx. States she was switched to Ozempic becauseof the GI ADEs she had with Trulicity, but had worse ADEs with Ozempic so switched back. States she had discussed another med option with Aurora, thinks it was Mounjaro. Currently taking Trulicity 4.5mg on Wednesdays. Currently has 1 pen left of Trulicity, plans to usetonight but prefers not to take it because of ADEs. Pt greatly wants to try something different. Blood sugars currently around 100-120s. Will plan to start Mounjaro 5mg weekly to replace Trulicity, hopefully will tolerate better. Reviewed with pt how pen is similar to Trulicity and ADEs are similar. Will pend script for PCP's signature. Advised patient to f/up with Yue Roberts, next Friday as scheduled. Requested Prescriptions Pending Prescriptions Disp Refills tirzepatide (MOUNJARO) 5 mg/0.5 mL pen injector 2 mL 3 Sig: Inject 5 mg subcutaneously one time a week. Leticiawendy Valerioashley [facility] * Telephone Encounter - Allison Mendoza Pss - 06/26/2022 9:14 AM EDT Patient calling stating Trulicity is making her feel nauseated, headaches, and increased appetite. Patient asking if there is anything else she can try. Please advise and call patient. Patient uses [facility] documented in this encounterNewark Hospital04-14-2023 Miscellaneous Notes* Telephone Encounter - Ruchi Malone LPN - 06/07/2022 4:45 PM EDT Faxed. * Telephone Encounter - Lydia North APRN.CNS - 06/07/2022 4:36 PM EDT OK, please send * Telephone Encounter - Maria Dolores Ivan RN - 06/07/2022 4:06 PM EDT Patient calls to request an order for a rollator be faxed to [facility]. Patient's current rollator is broken and can't be fixed. Patient needs to be able to finish therapy. Pended but not certain if right one d/t weight. Please review. Fax for [facility] [place]: . Maria Dolores Ivan RN documented in this encounterNewark Hospital04-11-2023 Miscellaneous Notes* Addendum Note - COLLEEN Polanco - 06/04/2022 10:14 AM EDTAddended by: LIANNA THAKKAR on: 06/04/2022 10:14 AM Modules accepted: Orders, SmartSet documented in this encounterNewark Hospital04-11-2023 History of Present illness Narrative* John Caldwell MD - 06/04/2022 8:09 AM EDT Encounter Diagnosis ICD-10-CM 1. Cortical age-related cataract of left eye H25.012 2. Nuclear sclerosis, bilateral H25.13 3. Other vitreous opacities, left eye H43.392 BSCAN OS (LEFT EYE) 4. Total, mature age-related cataract H25.89 5. Type 2 diabetes mellitus without ophthalmic manifestations (HCC) E11.9 (H25.012) Cortical age-related cataract of left eye (primary encounter diagnosis) Hemoglobin A1C Date Value 02/27/2022 5.3 09/05/2020 6.9 % Plan: Discussed importance of blood sugar control to avoid future vision loss Yearly dilated fundus exam - Mature cataract detected in OS and patient's VA is HM. Plan: Cataract Presurgical Documentation Cataract: Left eye (OS) Target Distance vision Current Visual Acuity Right Eye Distance CC 20/20 Left Eye Distance CC HM Best Corrected Vision Right Eye 20/20 Glare Testing: Left Eye Off 20/20 Left Eye Low 20/30 Left Eye Medium 20/40 Left Eye High 20/50 Visual Function: Meggan Arita states that the decline in vision from the cataract impedes her abilities as listed in the HPI, as well as other activities of daily living. Meggan Arita has confirmed that she is no longer able to function adequately on a day-to-day basis because of her current visual condition. Further, it is my medical opinion that the cataract is the primary cause, or at least a significantly contributory cause of her visual dysfunction. With uncomplicated cataract surgery and lens implantation, it is my expectation that her visual function and quality of life will improve, significantly. The risks, benefits, alternatives, personnel and complications of cataract surgery with lens implantation were discussed with Meggan Arita in detail. she appeared to understand and asked that I proceed with plans for surgery. By signing my name below, I, Sosa Vickers, attest that this documentation has been prepared under the direction and in the presence of Dr. Caldwell Electronically signed, Mahesh Tobias June 04, 2022 8:15 AM I agree with the Chief Complaint, ROS, and Past Histories independently gathered by the clinical marketing support specialist and the remaining scribed note accurately describes my personal service to the patient. Patient will have B-scan done for IOL calculation. offer complex ce/iol os (complicating factors: mature lens req trypan blue, possible need for 2nd surgery, intumescent lens) healon 5 intracameral phenyl target plano jg to perform I have confirmed and edited as necessary the relevant ophthalmic history, ROS, and the neuro exam findings as obtained by others. I have seen and examined this patient. I have discussed the case and the management of this patient's care with the Resident/Fellow, if applicable. I also have reviewed and agree with the assessment and plan as stated above and agree with all of its relevant components. John Caldwell MD documented in this encounterNewark Hospital04-11-2023 Instructions* Patient Instructions* Sosa Vickers - 06/04/2022 8:09 AM EDT INSTRUCTIONS FOR SCHEDULING SURGERY: CONTACT DR. CALDWELL'S NON DESTRUCTIVE TESTER: ANDREW MCKINNON AT [phone] (9AM-5PM, FRIDAY-FRIDAY) Please wait 24 hours after your appointment to contact Andrew - IF YOU RECEIVE VOICEMAIL, PLEASE LEAVE A MESSAGE AND WE WILL RETURN YOUR CALL - MY REMOTE MORTGAGE UNDERWRITER WILL INFORM YOU IF ANY ADDITIONAL PREOPERATIVE TESTING IS REQUIRED, INCLUDING A PRE-OPERATIVE PHYSICAL (REQUIRED FOR ALL PROCEDURES IN WHICH ANESTHESIA IS INVOLVED) - YOU WILL NEED A PERSON (NOT A TAXI, BUS OR UBER) TO TAKE YOU HOME ON THE DAY OF SURGERY - ONCE A SURGICAL DATE(s) HAS BEEN SET, YOU WILL RECEIVE A PHONE CALL ON THE BUSINESS DAY PRIOR TO SURGERY TO GIVE YOU YOUR EXACT ARRIVAL TIME - ARRIVAL TIMES ARE TYPICALLY 1 HOUR BEFORE YOUR PROCEDURE IS SCHEDULED TO TAKE PLACE, ALTHOUGH THIS MAY VARY BASED ON THE TYPE OF PROCEDURE YOU ARE HAVING DONE AND EXTRINSIC FACTORS WHICH MAY AFFECTTHE SCHEDULE ON THE DAY OF SURGERY - IF YOU ARE RECEIVING ANESTHESIA (WHICH INCLUDES MOST PROCEDURES EXCEPT FOR THOSE WHICH ARE "LOCAL" ANESTHESIA ONLY), YOU WILL NEED TO FAST FOR 8 HOURS BEFORE YOUR SCHEDULED SURGERY TIME. SPECIFIC DETAILS REGARDING DAY OF SURGERY INSTRUCTIONS INCLUDING WHETHER YOU NEED TO STOP ANY EXISTING MEDICATIONS WILL BE EXPLAINED AT YOUR PRE-OPERATIVE PHYSICAL. - YOU HAVE ANY ADDITIONAL CONCERNS OR QUESTIONS, CALL DR. CALDWELL'S OFFICE AT [phone] (PRESS "0"TO BYPASS THE AUTOMATED GREETING AND BE TRANSFERRED TO AN SALES MARKET LEADER) documented in this encounterNewark Hospital04-07-2023 History of Present illness Narrative* Aurora Aparicio [facility] - 05/31/2022 10:30 AM EDT Primary Care Pharmacy Visit CC (Reason for Consult): DM Goal: A1c<8% Last Collaborating Physician Visit: 05/21/2022 Meggan Arita is a 61 year old female presenting for follow up visit by telephone. Patient consents to pharmacy collaborative practice agreement. At last visit with pharmacy on 05/10/22 the following changes were made: Switched to Ozempic HPI: Had a 3 week gap between Trulicity and Ozempic Started Ozempic 2 weeks ago Stomach cramps and nausea since being on Ozempic Did feel sick to her stomach and threw up twice since starting Would like to switch back to Trulicity, had tolerated Trulicity 4.5mg weekly dose with no GI symptoms She checked with her pharmacy while on the call and they have a one month supply they can dispense to her today Reports she had sensors fail the last 2 times, has been checking BG manually Plans to place new sensor today and will remind her son to help her set up connection through [employer] ROS: Patient denies CP, SOB, YI, blurred vision, dizziness or lightheadedness Patient Reports nausea, vomiting, diarrhea, abdominal pain Patient denies symptoms of hypoglycemia (sweating, anxiety, palpitations, hunger, and tremor) Patient denies symptoms of hyperglycemia (polyuria, polydipsia, polyphagia) Patient denies potential medication adverse effects DIET/EXERCISE/SOCIAL Hx: Prepares most meals at home Incorporated vegetables with lunch and dinner Breakfast: oatmeal, toast Beverages: flavored water MEDICATIONS: Pill bottles are not present. Adherence: denies missed doses. ALLERGIES Allergen Reactions Ciprofloxacin Diarrhea Nausea and diarrhea Buspar [Buspirone H* Other: See Comments Insomnia Carafate [Sucralfat* tightens up chest unable to swallow Celebrex [Celecoxib] Other: See Comments tachycardia, heart palpitations Cheratussin Itching Codeine GI Upset sick to her stomach but able to tolerate in Tylenol with codeine #3 Doxycycline Intolerance, Vomiting Iodine difficulty breathing, swelling, hives Latex difficulty breathing and swelling Levaquin [Levofloxa* GI Upset Meloxicam Rash pruritic rash within hours of taking med Penicillins Swelling, Shortness of Breath Prednisone Mental Status Change Vicodin [Hydrocodon* Itching swelling Current Outpatient Medications Medication Sig Dispense Refill dulaglutide (TRULICITY) 4.5 mg/0.5 mL pen injector Inject 4.5 mg subcutaneously one time a week. 6 mL 1 Chlorhexidine Gluconate (PERIDEX) 0.12 % solution Use 15 mL as instructed twice daily. Rinse aroundmouth for 30 seconds then expectorate (spit out). 118 mL 0 cephALEXin (KEFLEX) 500 mg capsule Take 1 capsule by mouth three times daily for 7 days. Take with food 21 capsule 0 LORazepam (ATIVAN) 1 mg tablet Take 0.5-1 tablets by mouth once daily as needed for anxiety for up to 30 days. 30 tablet 0 cyclobenzaprine (FLEXERIL) 5 mg tablet Take 1 tablet by mouth three times daily as needed. 90 tablet 1 temazepam (RESTORIL) 30 mg cap Take 1 capsule by mouth at bedtime as needed for up to 30 days. 30 capsule 0 Leg Brace (KNEE SUPPORT BRACE) misc 1 Each as directed. 1 Each 1 nystatin (MYCOSTATIN) powder Apply 1 application to affected area four times daily. 60 g 2 semaglutide (OZEMPIC) 2 mg/dose (8 mg/3 mL) pen injector Inject 2 mg subcutaneously one time a week. 9 mL 3 venlafaxine ER (EFFEXOR XR) 75 mg 24 hr capsule Take 1 capsule by mouth once daily. 90 capsule 3 flash glucose sensor (FREESTYLE SHAKIRA 2 SENSOR) kit Apply new sensor every fourteen (14) days to upper arm. 6 Each 4 atorvastatin (LIPITOR) 40 mg tablet Take 1 tablet by mouth once daily. 30 tablet 11 furosemide (LASIX) 40 mg tablet Take 1 tablet by mouth once daily. 90 tablet 3 albuterol (PROVENTIL) 2.5 mg /3 mL (0.083 %) nebulizer solution inhale contents of one vial in nebulizer every 6 hours if needed for wheezing and shortness of breath 300 mL 5 albuterol HFA (PROVENTIL HFA, VENTOLIN HFA) 90 mcg/actuation inhaler Inhale 2 Puffs as instructed every 4 hours as needed for wheezing/shortness of breath. May give preferred namebrand (per formularyand/or patient preference) 3 Each 3 fluticasone (FLONASE) 50 mcg/actuation nasal spray Use 2 Sprays in each nostril once daily as needed. 3 Each 3 insulin lispro (HUMALOG KWIKPEN INSULIN) 100 unit/mL Sliding scale as indicated 3 times daily with meals, inject subq 200 to 250 - 5 units 251 to 300 - 8 units 301 to 350 - 12 units 351 to 400 - 15 units over 400 will need to call her doctor for guidance. 5 Each 3 ipratropium (ATROVENT) 0.02 % nebulizer solution Use 2.5 mL via nebulizer four times daily as needed (wheezing). Use over 5-15minutes. Use in addition to albuterol nebulizer. [address] (PROTONIX) 40 mg tablet Take 1 tablet by mouth once daily. 90 tablet 3 losartan (COZAAR) 100 mg tablet Take 1 tablet by mouth once daily. 90 tablet 3 metOLazone (ZAROXOLYN) 5 mg tablet take 1 tablet by mouth 30 MINUTES PRIOR TO TAKING LASIX IF NEEDED FOR INCREASED SWELLING DIRECTED 90 tablet 1 insulin needles, DISPOSABLE, (BD INSULIN PEN NEEDLE UF) 31 gauge x 5/16" USE 6 DAILY DIRECTED with Toujeo and Humalog and Byetta 150 Each 5 Diaper,Brief, Adult,Disposable (DISPOSABLE BRIEF) Bariatric Briefs - Prevail. Going thru [facility]. 2 per day. 96 Each 1 blood sugar diagnostic (BLOOD GLUCOSE TEST) test strip Test blood sugar(s) four times daily. Dx: Type 2 DM - Controlled E11.9 Insulin: No 150 Strip 11 Lancets lancets Test blood sugar(s) 4 times daily. Dx: Type 2 DM - Controlled E11.9 Insulin: No 200Each 11 magnesium oxide (MAG-OX) 400 mg (241.3 mg magnesium) tablet Take 1 tablet by mouth twice daily. 60 tablet 11 montelukast (SINGULAIR) 10 mg tablet Take 1 tablet by mouth daily at bedtime. 30 tablet 11 oxaprozin (DAYPRO) 600 mg tablet Take 1-2 tablets by mouth once daily. as needed for knee pain. 60 tablet 1 mupirocin (BACTROBAN) 2 % cream Use up to three times a day. Location: left inner thigh 45 g 1 emollient combination no.114 (EUCERIN ADVANCED REPAIR) crea Apply 1 application to affected area once daily. 85 g 5 insulin degludec (TRESIBA FLEXTOUCH U-200) 200 unit/mL (3 mL) injection Inject 95 Units subcutaneously daily at bedtime. 15 mL 11 topiramate (TOPAMAX) 50 mg tablet Take 1 tablet by mouth daily at bedtime. 30 tablet 11 gabapentin (NEURONTIN) 100 mg capsule Take 2 capsules by mouth daily at bedtime for 180 days. 60 capsule 5 iron polysaccharide complex (FERREX-150) 150 mg iron capsule Take 1 capsule by mouth twice daily. 60 capsule 1 mometasone-formoterol (DULERA) 200-5 mcg/actuation inhaler Inhale 2 Puffs as instructed twice daily. 1 Inhaler 11 ketoconazole (NIZORAL) 2 % cream apply to affected area OF RASH AND SURROUNDING AREA UNDER BREAST once daily 60 g 2 bismuth subsalicylate (PEPTO-BISMOL) 262 mg chew Take 2 tablets by mouth four times daily. 112 tablet 0 docusate sodium (COLACE) 100 mg capsule Take 2 capsules by mouth DAILY AT 6 PM. 60 capsule 4 CPAP AutoPAP 5-12 CM H2O with humidification. Mask (per patient preference) optional chin strap (ifindicated) , filters, tubing, humidifier and lifetime supplies. 1 Device 0 potassium chloride ER (K-DUR, KLOR-CON) 20 mEq tablet Take 2 tablets by mouth three times daily. 180 tablet 11 ipratropium bromide (ATROVENT) 42 mcg (0.06 %) nasal spray Use 2 Sprays in each nostril four times daily. 1 Bottle 1 Miscellaneous Medical Supply Order: Overnight pulse ox on 4LPM Diagnosis: R09.02 (checking if needsO2 increased at night) 1 Each 0 ondansetron (ZOFRAN) 4 mg tablet Take 1 tablet by mouth every 8 hours as needed. 30 tablet 1 Ferrous Gluconate 240 mg (27 mg iron) tablet Take 1 tablet by mouth once daily. As directed 30 tablet 5 Blood Pressure Monitor (BLOOD PRESSURE KIT) kit For home use Dx: labile blood pressure 1 Kit 0 loratadine (CLARITIN) 10 mg tablet Take 1 tablet by mouth once daily. 30 tablet 11 Blood-Glucose Meter (FREESTYLE FREEDOM LITE) monitoring kit 1 Each as needed. 1 Each 0 polyethylene glycol 3350 (MIRALAX) 17 gram/dose powder 2 scoop in liquid daily as needed for bowel movement 1 Bottle 11 COMPOUNDED PRESCRIPTION TENS Unit 4 lead. Use as directed. Needs refills for leads 1 per month as needed Dispense 1 with 5 refills. (M48.06) Spinal stenosis, lumbar region, without neurogenic claudication 1 Each 0 Nebulizer NEBULIZER FOR HOME USE. DX: (J45.20) Mild intermittent asthma without complication 1 Device 0 No current facility-administered medications for this visit. EXAM: Last 3 Encounter BP Readings: Date: BP: 04/30/2021 126/63 06/19/2020 148/72 03/30/2019 120/80 Wt: 0 kg () BMI: 0.00 kg/(m^2) LABS: reviewed Lab Results Component Value Date HBA1C 7.4 07/07/2021 HBA1C 7.2 04/30/2021 HBA1C 6.9 09/05/2020 HBA1C 6.7 03/28/2020 HBA1C 8.4 11/06/2019 Glucose 179 07/07/2021 BUN 18 07/07/2021 Creatinine, Whole Blood (iSTAT) 0.90 07/07/2021 Sodium 140 07/07/2021 Potassium 4.2 07/07/2021 Chloride 93 07/07/2021 CO2 39 07/07/2021 Protein, Total 8.6 07/07/2021 Albumin 3.7 07/07/2021 Calcium 9.4 07/07/2021 Alkaline Phosphatase 153 07/07/2021 Bilirubin, Total 0.8 07/07/2021 AST 19 07/07/2021 ALT 14 07/07/2021 Lab Results Component Value Date CHOL 151 04/30/2021 CHOL 119 03/28/2020 LDL 90 04/30/2021 LDL 70 03/28/2020 HDL 50 04/30/2021 HDL 37 03/28/2020 TG 54 04/30/2021 TG 59 03/28/2020 Albumin/Creat Ratio (mg/g) Date Value 11/06/2019 Not calculated eGFR- (no units) Date Value 09/05/2020 >60 PHARMACOTHERAPY ASSESSMENT/PLAN: 1. Type 2 diabetes (HCC) - ICD9: 250.00, ICD10: E11.9 A1c goal < 8%; Controlled (last A1c 7.4%); No SMBG readings to review today - sent patient information to connect CGM readings with our practice; Patient reporting GI upset on Ozempic and wishes toswitch back to Trulicity. Was able to secure Trulicity supply at local pharmacy. - Stop Ozempic - Resume Trulicity 4.5 mg once weekly - Continue Tresiba 95 units once daily at bedtime - Continue Humalog three times daily with sliding scale 200 to 250 - 5 units 251 to 300 - 8 units 301 to 350 - 12 units 351 to 400 - 15 units over 400 will need to call her doctor for guidance. Follow up: Pharmacy follow up on 07/05/22 Aurora Aparicio PharmD, [facility] Primary Care Clinical Pharmacist The majority of the pharmacy visit (> 50%) was spent counseling and/or coordinating care for thepatient. interaction: telephonic time was 25 minutes. documented in this encounterNewark Hospital04-06-2023 Miscellaneous Notes* Telephone Encounter - Mary Woods RN - 05/30/2022 5:00 PM EDT Spoke with patient. Given message from provider's office. Patient verbalizes understanding. Mary Woods RN * Telephone Encounter - Lydia North APRN.CNS - 05/30/2022 4:45 PM EDT Can discuss at PharmD visit tomorrow. * Telephone Encounter - Maria Dolores Ivan RN - 05/30/2022 3:40 PM EDT Patient returns call and provider message reviewed. Patient is not able to get Trulicity but would prefer not to go back on Ozempic even at the lower dose d/t the gi side effects. Patient asking if provider has any other medication recommendations and requesting call back at [phone] with provider response. Maria Dolores Ivan RN * Telephone Encounter - Aurora Aparicio RPh - 05/30/2022 12:20 PM EDT Called and Left voicemail for patient asking her to return call. Will send orders for Trulicity 4.5 mg once weekly as patient tolerated well in the past but stoppedtaking due to supply issues. If not able to secure Trulicity supply, can consider sending orders for lower Ozempic dose (1 mg once weekly) to minimize GI upset. Other recommendations to decrease GI upset: having smaller more frequent meals. The following approved medication requests have been transmitted electronically. Requested Prescriptions Signed Prescriptions Disp Refills dulaglutide (TRULICITY) 4.5 mg/0.5 mL pen injector 6 mL 1 Sig: Inject 4.5 mg subcutaneously one time a week. Authorizing Provider: LYDIA NORTH Ordering User: AURORA APARICIO, RealD, BCACP Primary Care Clinical Pharmacist * Telephone Encounter - Lydia North APRN.KATE - 05/30/2022 11:43 AM EDT Trulicty was on back order, that is why she was changed. Not sure if that has been resolved yet. If having side effects with ozempic may discontinue. * Telephone Encounter - Deirdre Jacob LPN - 05/30/2022 10:36 AM EDT Pt currently get ozempic injections weekly. Pt reports she gets sick from med, causes cramps & diarrhea. Pt is asking if there is something else avail she can try? States she used Trulicity before ozempic but didn't think it was effective. Pt is due for next injection tomorrow. Pt uses [facility] in [place]. Deirdre Jacob LPN documented in this encounterNewark Hospital04-06-2023 Miscellaneous Notes* Telephone Encounter - Pati Smith LPN - 05/30/2022 3:04 PM EDT Patient notified of providers message and verbalized understanding. Patient saw her dentist but is not able to do the work because he is not in her network. Wants to stay with current dentist so their office is doing a prior auth for procedure and needs medication until it gets approved by her insurance. * Telephone Encounter - Lydia North APRN.CNS - 05/30/2022 2:41 PM EDT She needs to see a dentist for dental infection/abscess. How does she know she has this, was she seen for it? Prescription sent for Peridex and cephalexin. Endorse dentist visit at her earliest convenience. * Telephone Encounter - Treva Cr RN - 05/29/2022 4:10 PM EDT Patient calls and states that she currently has a tooth abscess. Patient reports that she had called dentist to fix this and was told that they are not in her network and that they would have to get insurance approval before scheduling appointment to fix abscess. Patient report that Dentist told patient to contact PCP to see if they can write a prescription for this. [facility]. Please review and advise, Terva Cr RN documented in this encounterNew[facility]04-05-2023 Miscellaneous Notes* Telephone Encounter - Silvestre Jain APRN.CNP - 05/29/2022 2:25 PM EDT PDMP website checked and validated. All prescriptions have been APPROPRIATELY filled. No suspiciousactivity was identified. 05/29/2022 by Silvestre Jain APRN.CNP * Telephone Encounter - Mary Woods RN - 05/29/2022 2:19 PM EDT Patient has been identified by name and date of : Yes, Provider Date Time Patient phones for refill(s): Requested Prescriptions Pending Prescriptions Disp Refills LORazepam (ATIVAN) 1 mg tablet [Pharmacy Med Name: LORAZEPAM 1 MG TABLET] 24 tablet Sig: take 1/2 to 1 tablet by mouth daily if needed Date of last office visit with pcp: Date of last office visit in primary care: 05/21/22 Last 2 Encounter Wt Readings: Date: Wt: 04/30/2021 0 kg () 06/19/2020 205.9 kg (454 lb) Previous labs/tests for medication: Please advise. Thank you. Mary Woods RN documented in this encounterNewark Hospital03-30-2023 Miscellaneous Notes* Telephone Encounter - Erica Cannon MD - 05/23/2022 5:10 PM EDT Any progress with this ? * Telephone Encounter - Pati Smith LPN - 05/21/2022 11:51 AM EDT Could not find anyone who was able to help with SASHA. After numerous attempts to find out about SASHA I finally spoke to Hanny whom was also not able to help but did find original manager contact. Shewas able to send an email to Marialuisa asking about the SASHA and what needs to be filled out and to either call office and ask to speak to a nurse/Tawanna/ or email Tawanna about what needs to be done to put COCthrough. Patient ID number is [id number] and phone call ref# is [id number]. * Telephone Encounter - Erica Cannon MD - 05/17/2022 8:38 PM EDT Don't know website Tried to call but needs called during normal business hours after tried to go through automated system. Not sure how to navigate the phone system. Can someone figure out how to get SASHA? * Telephone Encounter - Maria Dolores Ivan RN - 05/17/2022 11:29 AM EDT Marialuisa with [facility] calls to ask if provider would put in a SASHA (continuity of care) request through patient's insurance for DME (oxygen, CPAP, wheelchair, and bed). [facility] and her insurance no longer covers them. Patient is at home now and [facility] to patient at the half-way. Patient is not able to pay the cost and [facility] cone picker equipment if SASHA isn't written. Marialuisa is working on finding a new supplier but until then SASHA needs to be in place. Marialuisa reports this can be completed through the provider website or by calling [phone] and reports that it is emergent. Maria Dolores Ivan RN documented in this encounterNewark Hospital03-28-2023 History of Present illness Narrative* Silvestre Jain APRN.NIKKY - 05/21/2022 2:37 PM EDT VIRTUAL VISIT PROGRESS NOTE This is an encounter initiated for an established patient, parent or guardian not originating from a related Evaluation & Management service provided within the previous 7 days nor leading to an Evaluation & Management service or procedure within the next 24 hours or soonest available appointment. This is a virtual visit. It required patient-provider interaction for the medical decision making as documented below. Patient has consented to this encounter. Persons Present: patient and son (adult) Data Reviewed: Most recent notes in chart Patient has consented to patient-provider interaction via telephone/virtual visit for the medical decision making documented in this telephone/virtual visit encounter. Total Time Spent: 21-30 minutes SUBJECTIVE Meggan Artia is a 61 year old female here today for a check up on her medical problems. Chief Complaint Patient presents with: Follow Up Home Care Management HPI Chelsea presents today for a virtual visit via my chart on the [employer] platform. Presents today due to needing a face to face visit for . Currently receiving services from [facility] for nursing and therapy. She was recently hospitalized and the spent time in a SNF before returning home. [facility] services have tremendously helpful. Overall she is feeling okay. Sugars are running good, not over 110-115. Not using insulin at all. Blood pressure doing well too. She notes working with PT has been helpful in improving her mobility and ability to complete ADLs. They did recommend that she get a knee brace as this might help her right knee pain some. She does admit to having some trouble falling asleep, not really issues staying asleep but sometimes cannot fall asleep until closer to 1 or 2 am. Her medications were reviewed today and her list is now up to date. Medications Current Outpatient Medications Medication Sig cyclobenzaprine (FLEXERIL) 5 mg tablet Take 1 tablet by mouth three times daily as needed. temazepam (RESTORIL) 30 mg cap Take 1 capsule by mouth at bedtime as needed for up to 30 days. Leg Brace (KNEE SUPPORT BRACE) misc 1 Each as directed. nystatin (MYCOSTATIN) powder Apply 1 application to affected area four times daily. semaglutide (OZEMPIC) 2 mg/dose (8 mg/3 mL) pen injector Inject 2 mg subcutaneously one time a week. LORazepam (ATIVAN) 1 mg tablet Take half to 1 whole tablet daily as needed venlafaxine ER (EFFEXOR XR) 75 mg 24 hr capsule Take 1 capsule by mouth once daily. flash glucose sensor (FREESTYLE SHAKIRA 2 SENSOR) kit Apply new sensor every fourteen (14) days to upper arm. atorvastatin (LIPITOR) 40 mg tablet Take 1 tablet by mouth once daily. furosemide (LASIX) 40 mg tablet Take 1 tablet by mouth once daily. albuterol (PROVENTIL) 2.5 mg /3 mL (0.083 %) nebulizer solution inhale contents of one vial in nebulizer every 6 hours if needed for wheezing and shortness of breath albuterol HFA (PROVENTIL HFA, VENTOLIN HFA) 90 mcg/actuation inhaler Inhale 2 Puffs as instructed every 4 hours as needed for wheezing/shortness of breath. May give preferred namebrand (per formularyand/or patient preference) fluticasone (FLONASE) 50 mcg/actuation nasal spray Use 2 Sprays in each nostril once daily as needed. insulin lispro (HUMALOG KWIKPEN INSULIN) 100 unit/mL Sliding scale as indicated 3 times daily with meals, inject subq 200 to 250 - 5 units 251 to 300 - 8 units 301 to 350 - 12 units 351 to 400 - 15 units over 400 will need to call her doctor for guidance. ipratropium (ATROVENT) 0.02 % nebulizer solution Use 2.5 mL via nebulizer four times daily as needed (wheezing). Use over 5-15minutes. Use in addition to albuterol nebulizer. pantoprazole DR (PROTONIX) 40 mg tablet Take 1 tablet by mouth once daily. losartan (COZAAR) 100 mg tablet Take 1 tablet by mouth once daily. metOLazone (ZAROXOLYN) 5 mg tablet take 1 tablet by mouth 30 MINUTES PRIOR TO TAKING LASIX IF NEEDED FOR INCREASED SWELLING DIRECTED insulin needles, DISPOSABLE, (BD INSULIN PEN NEEDLE UF) 31 gauge x 5/16" USE 6 DAILY DIRECTED with Toujeo and Humalog and Byetta Diaper,Brief, Adult,Disposable (DISPOSABLE BRIEF) Bariatric Briefs - Prevail. Going thru [facility]. 2 per day. blood sugar diagnostic (BLOOD GLUCOSE TEST) test strip Test blood sugar(s) four times daily. Dx: Type 2 DM - Controlled E11.9 Insulin: No Lancets lancets Test blood sugar(s) 4 times daily. Dx: Type 2 DM - Controlled E11.9 Insulin: No magnesium oxide (MAG-OX) 400 mg (241.3 mg magnesium) tablet Take 1 tablet by mouth twice daily. montelukast (SINGULAIR) 10 mg tablet Take 1 tablet by mouth daily at bedtime. oxaprozin (DAYPRO) 600 mg tablet Take 1-2 tablets by mouth once daily. as needed for knee pain. mupirocin (BACTROBAN) 2 % cream Use up to three times a day. Location: left inner thigh emollient combination no.114 (EUCERIN ADVANCED REPAIR) crea Apply 1 application to affected area once daily. insulin degludec (TRESIBA FLEXTOUCH U-200) 200 unit/mL (3 mL) injection Inject 95 Units subcutaneously daily at bedtime. topiramate (TOPAMAX) 50 mg tablet Take 1 tablet by mouth daily at bedtime. gabapentin (NEURONTIN) 100 mg capsule Take 2 capsules by mouth daily at bedtime for 180 days. iron polysaccharide complex (FERREX-150) 150 mg iron capsule Take 1 capsule by mouth twice daily. mometasone-formoterol (DULERA) 200-5 mcg/actuation inhaler Inhale 2 Puffs as instructed twice daily. ketoconazole (NIZORAL) 2 % cream apply to affected area OF RASH AND SURROUNDING AREA UNDER BREAST once daily bismuth subsalicylate (PEPTO-BISMOL) 262 mg chew Take 2 tablets by mouth four times daily. docusate sodium (COLACE) 100 mg capsule Take 2 capsules by mouth DAILY AT 6 PM. CPAP AutoPAP 5-12 CM H2O with humidification. Mask (per patient preference) optional chin strap (ifindicated) , filters, tubing, humidifier and lifetime supplies. potassium chloride ER (K-DUR, KLOR-CON) 20 mEq tablet Take 2 tablets by mouth three times daily. ipratropium bromide (ATROVENT) 42 mcg (0.06 %) nasal spray Use 2 Sprays in each nostril four times daily. Miscellaneous Medical Supply Order: Overnight pulse ox on 4LPM Diagnosis: R09.02 (checking if needsO2 increased at night) ondansetron (ZOFRAN) 4 mg tablet Take 1 tablet by mouth every 8 hours as needed. Ferrous Gluconate 240 mg (27 mg iron) tablet Take 1 tablet by mouth once daily. As directed Blood Pressure Monitor (BLOOD PRESSURE KIT) kit For home use Dx: labile blood pressure loratadine (CLARITIN) 10 mg tablet Take 1 tablet by mouth once daily. Blood-Glucose Meter (FREESTYLE FREEDOM LITE) monitoring kit 1 Each as needed. polyethylene glycol 3350 (MIRALAX) 17 gram/dose powder 2 scoop in liquid daily as needed for bowel movement COMPOUNDED PRESCRIPTION TENS Unit 4 lead. Use as directed. Needs refills for leads 1 per month as needed Dispense 1 with 5 refills. (M48.06) Spinal stenosis, lumbar region, without neurogenic claudication Nebulizer NEBULIZER FOR HOME USE. DX: (J45.20) Mild intermittent asthma without complication No current facility-administered medications for this visit. ALLERGIES Allergen Reactions Ciprofloxacin Diarrhea Nausea and diarrhea Buspar [Buspirone H* Other: See Comments Insomnia Carafate [Sucralfat* tightens up chest unable to swallow Celebrex [Celecoxib] Other: See Comments tachycardia, heart palpitations Cheratussin Itching Codeine GI Upset sick to her stomach but able to tolerate in Tylenol with codeine #3 Doxycycline Intolerance, Vomiting Iodine difficulty breathing, swelling, hives Latex difficulty breathing and swelling Levaquin [Levofloxa* GI Upset Meloxicam Rash pruritic rash within hours of taking med Penicillins Swelling, Shortness of Breath Prednisone Mental Status Change Vicodin [Hydrocodon* Itching swelling ACTIVE PROBLEM LIST Ulcer of Left Lower Extremity, Limited to Breakdown of Skin ([facility]) - 02/20/2022 Comment: Large wound medial thigh; also 2 smaller ones (medial and lateral thigh) Bilateral Leg Edema - 02/20/2022 Comment: Not needing as much Lasix as before; would take metolazone before Lasix as before for prn use Primary Osteoarthritis of Both Knees - 03/08/2020 Comment: severe narrowing of the medial joint space with marginal osteophytes--x-ray knee 2016 Depression - 01/24/2016 Type 2 Diabetes ([facility]) - 09/01/2014 Bmi 60.0-69.9, Adult ([facility]) - 06/30/2014 Pulmonary Hypertension ([facility]) - 04/23/2013 Allergic Rhinitis - 07/15/2007 Spinal Stenosis, Lumbar Region, Without Neurogenic Claudication - 07/09/2007 Comment: not sure where this diagnosis came from since no prior MRI or CT scan with mention of this diagnosis Edema - 06/01/2007 Comment: Admit 07-08-08 for RLE venous stasis ulcer on Cubicin. Put pt on disability from 08-03-08 to 11-24-08 Iron Deficiency Anemia, Unspecified - 01/20/2007 Comment: Colon 03-22-02 ([facility]): no polyps, masses or AVMs Anxiety State - 12/09/2006 Generalized Osteoarthrosis, Unspecified Site - 10/29/2006 Esophageal Reflux - 03/16/2005 Comment: EGD in 06-30: no evidence of esophagitis but there is gastritis (H pylori was negative) Chronic Hepatitis, Unspecified ([facility]) - 03/06/2005 Comment: Liver biopsy w/ cholecystectomy Hypertension Comment: Echo at [place] 01-25: LVH, mild TR, LAE, RVE, PASP 38 (mild), no EF documented per Seese Seese 01-07-03: consider GERD for atyp CP, not cath candidate from obesity, doubt cardiac source ECG 03-30: NSR with PVC, lat T flattening, no ischemia/injury (ECG NL in 10-27 at [place]) Rec for Dobut Echo in 05-28 per Seese (Darshan) prior to rec gastric bypass (Study 07-21-03 was NL) Admit for BRYAN in 09-29: rec Cardizem and Lopressor after negative enzymes, outpt stress Dobut Echo 11-18-05: 80% APMHR, No RWMA, NL but limited by not achieving APMHR LDL 96, HDL 45, TG 45 in 01-01 Restarted K supplements for K of 3.3 in 08-01 as pt on Lasix Order placed for Holter in 04-04 after ED visit for palpitations Metoprolol to 100 mg bid in 04-04 for BP and palpitations Holter 04-04: no AF, VT but pt with 7 sec pause Metop changed to Hydralazine and HCTZ as inpt in 04-04 with the Holter findings Carotids at [place] in 04-04: 1-15% stenosis bilaterally Obstructive Sleep Apnea Comment: Scheduled sleep study in 11-3012-08-06: sleep time 60 minutes/294 minutes studied, AHI 48, low sat 79%-rec auto-titrating CPAP Trial of an auto-titrating CPAP in 11-30: unable to sleep long enough for diagnosis Phoned pt at work 12-24-06 to call about scheduling auto Asthma Social History Tobacco Use Smoking status: Never Smokeless tobacco: Never Tobacco comments: Father smoked in childhood home . ETS exposure in current home. Substance Use Topics Alcohol use: No Drug use: No Review of Systems Respiratory: Negative. Cardiovascular: Negative. Musculoskeletal: Positive for arthralgias and myalgias. Psychiatric/Behavioral: Positive for sleep disturbance. OBJECTIVE LMP 02/11/2011 Physical Exam Constitutional: General: She is awake. She is not in acute distress. Appearance: She is not ill-appearing, toxic-appearing or diaphoretic. Comments: During the virtual visit she is alert, oriented, breathing is quiet and not labored, no apparent distress. Neurological: Mental Status: She is alert. Psychiatric: Behavior: Behavior is cooperative. ASSESSMENT/PLAN: 1. Primary insomnia - ICD9: 307.42, ICD10: F51.01 (primary diagnosis) Discussed options, issues with Doxepin and Amitriptyline interacting with potassium, previously tried trazodone and not helpful, will trial temazepam. - TEMAZEPAM 30 MG CAPSULE 2. Decreased mobility - ICD9: 781.99, ICD10: R26.89 Continue with [facility] PT services. 3. Gait instability - ICD9: 781.2, ICD10: R26.81 4. Primary osteoarthritis of both knees - ICD9: 715.16, ICD10: M17.0 - KNEE SUPPORT BRACE 5. Primary hypertension - ICD9: 401.9, ICD10: I10 - good control - Continue current medication(s) - Encouraged dietary sodium restriction/DASH diet - Reviewed risks of HTN and principles of treatment 6. Type 2 diabetes (HCC) - ICD9: 250.00, ICD10: E11.9 - Controlled - Continue current medications Working with pharmD 7. Leg cramp - ICD9: 729.82, ICD10: R25.2 - CYCLOBENZAPRINE 5 MG TABLET 8. Muscle spasm - ICD9: 728.85, ICD10: M62.838 - CYCLOBENZAPRINE 5 MG TABLET 9. Anxiety state - ICD9: 300.00, ICD10: F41.1 10. BMI 60.0-69.9, adult (HCC) - ICD9: V85.44, ICD10: Z68.44 Slivestre Jain APRN.MANAGER [employer] Patient verbalizes understanding of instructions from today's visit and in agreement with treatmentplan. Questions answered. Agrees to call the office if symptoms do not improve or if they worsen. Return in about 4 weeks (around 06/18/2022) for recheck on new medication.. Patient has consented to patient-provider interaction via telephone/virtual visit for the medical decision making documented in this telephone/virtual visit encounter. Total Time Spent: 21-30 minutes documented in this encounterNewark Hospital03-24-2023 Miscellaneous Notes* Telephone Encounter - Rina Rincon LPN - 05/17/2022 9:36 AM EDT Orders faxed to number provided. Rina Rincon LPN * Telephone Encounter - Erica Cannon MD - 05/16/2022 11:40 PM EDT Printed orders * Telephone Encounter - Shant Boyle RN - 05/15/2022 12:00 PM EDT Jaky, from [facility], reports patient told her pcp wanted her to have labwork done. Advised there is order for UACNS if UTI s/s do not improve. Jaky understood from patient it was blood work pcp wanted done. Advised there are no orders for blood work. Jaky asking if pcp wants blood work to fax to fax # [phone] documented in this encounterNewark Hospital03-24-2023 Miscellaneous Notes* Telephone Encounter - Nanci Dorado LPN - 05/17/2022 8:14 AM EDT Apt scheduled. Nanci Dorado LPN * Telephone Encounter - Silvestre Jain APRN.CNP - 05/03/2022 3:56 PM EST Consult for nutrition placed. * Telephone Encounter - Pati Smith LPN - 05/02/2022 3:17 PM EST Patient was scheduled with PharmD but I looks like she agreed to nutrition as well. Please place order if appropriate. * Telephone Encounter - Erica Cannon MD - 04/30/2022 12:43 AM EST Consult filed * Telephone Encounter - Mary Woods RN - 04/29/2022 1:16 PM EST Spoke with patient. Given message from provider's office. She says she is willing to have referral to Pharmacy D and nutrition for diabetes management and weight loss. Mary Woods RN * Telephone Encounter - Erica Cannon MD - 04/27/2022 3:46 PM EST See my note below regarding having her work with pharmD regarding medication adjustments to help with efforts at DM control and weight loss. Also see if working with department manager to help with weight loss or wants referral since medications alone will not be adequate for continued weight loss as well as success with keeping weight down. * Telephone Encounter - Shant Boyle RN - 04/26/2022 3:10 PM EST Patient returned call and given message. Patient states she does not want to stop trulicity becauseshe has lost over 200 # and does not want to mess that up. Wants to stay on trulicity and asking ifthere is something else she could take to go along with the trulicity? Please advise patient. * Telephone Encounter - Silvestre Jain APRN.CNP - 04/26/2022 10:27 AM EST She is on a higher dose of Trulicity so would not recommend stopping it since sugars would likely rebound but could decrease the dose and see how she does and continue to work on decreasing while monitoring sugars. Would she be alright with that? * Telephone Encounter - Sridevi Isabel LPN - 04/26/2022 9:03 AM EST Referral to [facility] faxed. Patient aware of same. She is scheduled for a VV Face to Face on 05/21/22 with Silvestre Jain. Patient states the diet she is following is low calorie, healthier foods and portion control. Was the diet she was following at the half-way. She mentioned she tries to stay under 1800 calories aday. Blood sugars have been running around 110-115. Patient question if ok to stop the Trulicity? * Telephone Encounter - Erica Cannon MD - 04/25/2022 11:45 PM EST 1) See if can give verbal order for home health as requested; print order to sign if needed. 2) Will need an appointment within next 90 days for home health services to be covered and needs tu at least a VV; needs an in office visit sometime this year--can arrange for transportion via ambulette with wheelchair if needed. Offer to have her work with pharmD on diabetes management. Clarify what diet she is trying and whether it is a diet that is helping now and whether something she could stick to senior care. If not, why not. Ideally this is something would discuss at an appointment. What are her sugars running now? * Telephone Encounter - Nanci Dorado LPN - 04/25/2022 10:20 AM EST Pt called request the followin)prescription/referral for [facility] to start to see pt again for nursing, PT and OT. Pt got insurance back that will cover them again. PH: [phone] FAX: [phone] 2)Trulicity not working per pt. Appetite has increased at night time. She is trying to stick to thediet she lost weight on but concerned because she does not want to go back on insulin. Pt declined coming in for an apt to discuss because she is not walking very well and mostly in bed. Please advise pt on above. Nanci Dorado LPN documented in this encounterNewark Hospital03-21-2023 Miscellaneous Notes* Telephone Encounter - Treva Cr RN - 05/14/2022 4:22 PM EDT Patient calls back to see about the status of this request. Notified patient that pharmacy was contacted again and that pharmacy is going to contact [facility] to see what is going on with PA. Treva Cr RN * Telephone Encounter - Ruchi Malone LPN - 05/14/2022 3:56 PM EDT called the pharmacy and this is still noting PA needed. [facility]. * Telephone Encounter - Ruchi Malone LPN - 05/14/2022 9:45 AM EDT I FAXED THE APPROVAL TO THE PHARMACY. Not sure what else to do. * Telephone Encounter - Nanci Dorado LPN - 05/14/2022 9:29 AM EDT Pt called and her Ozempic is on hold at the pharmacy. I called the pharmacy and she tried to run itx 2 and comes back rejected. Please review and check the PA that was completed. Please advise pharmacy and pt. Nanci Dorado LPN documented in this encounterNewark Hospital03-20-2023 Miscellaneous Notes* Telephone Encounter - Mary Woods RN - 05/13/2022 6:26 PM EDT Spoke with patient. Given message from provider's office. Patient verbalizes understanding. Mary M Lentine RN * Telephone Encounter - Ruchi Malone LPN - 05/13/2022 1:53 PM EDT Rec'd fax from [employer]. The semaglutide has been approved from 05/09/22 to 05/08/2023. Pharmacy notified and my chart message to pt. * Telephone Encounter - Chayito Boyd Ma - 05/09/2022 2:41 PM EDT Prior Authorization has been completed online at [employer] for ozempic, will await response. [id number] Please keep encounter open until final decision has been received and documented from insurance company. Chayito Boyd MA documented in this encounterNewark Hospital03-17-2023 History of Present illness Narrative* Justinmaggie Aparicio, [facility] - 05/10/2022 10:30 AM EDT Primary Care Pharmacy Visit CC (Reason for Consult): DM Goal: A1c<8% Last Collaborating Physician/QUALITY REVIEW TRAINER Visit: 04/04/22 Meggan Arita is a 61 year old female presenting for initial visit: This initial consult was conducted by telephone with the patient where the consult agreement was explained. The patient may decline or cancel the agreement at any time. After consideration, the patient consented to the pharmacyconsult agreement and agreed to allow medications be collaboratively managed by a pharmacist. At phone encounter with PCP on 04/25/22 the following changes were made: patient referred to pharmacy and nutrition therapy for DM. INTERIM HISTORY: Was having trouble accessing Trulicity supply due to back order Injected her last pen today Hoping to switch to Ozempic, PA was completed this week, awaiting response Gets very hungry at nightime Tries not to have anything to eat after 6 pm Has not been taking any insulin since BG readings have been stable on Trulicity GLYCEMIC CONTROL: Uses CGM on her phone -was not able to share her data, son manages the account. NoFlo invite sent to patient ROS: Patient denies CP, SOB, IY, blurred vision, dizziness or lightheadedness Patient denies nausea, vomiting, diarrhea, abdominal pain Patient denies symptoms of hypoglycemia (sweating, anxiety, palpitations, hunger, and tremor) Patient denies symptoms of hyperglycemia (polyuria, polydipsia, polyphagia) Patient denies potential medication adverse effects DIET/EXERCISE/SOCIAL Hx: Prepares most meals at home Incorporated vegetables with lunch and dinner Breakfast: oatmeal, toast Beverages: flavored water MEDICATIONS: Pill bottles are not present. Adherence: denies missed doses. ACTIVE PROBLEM LIST Hypertension Obstructive Sleep Apnea Asthma Esophageal Reflux Generalized Osteoarthrosis, Unspecified Site Anxiety State Iron Deficiency Anemia, Unspecified Edema Spinal Stenosis, Lumbar Region, Without Neurogenic Claudication Allergic Rhinitis Chronic Hepatitis, Unspecified (Hcc) Pulmonary Hypertension (Hcc) Bmi 60.0-69.9, Adult (Hcc) Type 2 Diabetes (Hcc) Depression Primary Osteoarthritis of Both Knees Ulcer of Left Lower Extremity, Limited to Breakdown of Skin (Hcc) Bilateral Leg Edema PAST MEDICAL HISTORY Diagnosis Date Acute gastritis without mention of hemorrhage ALLERGIC RHINITIS NOS 07/15/2007 ANXIETY STATE NOS 12/09/2006 Carpal tunnel syndrome 04/10/2007 Bilateral symptoms with the left worse than the right as of 04-03 CHOLELITH W CHOLECYS NEC 02/07/2005 Lap favio in 03-01 Chronic hepatitis, unspecified (HCC) 03/06/2005 Depression Edema 06/01/2007 Admit 07-08-08 for RLE venous stasis ulcer on Cubicin. Put pt on disability from 08-03-08 to 11-24-08 Esophageal reflux GENERAL OSTEOARTHROSIS 10/29/2006 Headache(784.0) 01/20/2007 [facility] Rheum 12-26: consid Sjogren's, CT chest/MRI head/HYUN/KEO/OSMANY/ANCA/SSA/SSB neg Again reinforced the need to start CPAP on 03-04-07: unable to afford as of 04-03 for insurance issues INSOMNIA NOS 07/31/2007 IRON DEFIC ANEMIA NOS 01/20/2007 Colon 03-22-02 ([facility]): no polyps, masses or AVMs Lactose intolerance Low blood potassium 10/20/2014 Low magnesium level 07/08/2016 Morbid obesity (HCC) Obesity, unspecified Obstructive sleep apnea Other dyspnea and respiratory abnormality Primary osteoarthritis of both knees 03/08/2020 severe narrowing of the medial joint space with marginal osteophytes--x-ray knee 2016 SPINAL STENOSIS-LUMBAR 07/09/2007 Stasis edema with ulcer (HCC) 08/02/2013 Type II or unspecified type diabetes mellitus without mention of complication, not stated as uncontrolled 08/05/2007 Unspecified asthma(493.90) Unspecified essential hypertension ALLERGIES Allergen Reactions Ciprofloxacin Diarrhea Nausea and diarrhea Buspar [Buspirone H* Other: See Comments Insomnia Carafate [Sucralfat* tightens up chest unable to swallow Celebrex [Celecoxib] Other: See Comments tachycardia, heart palpitations Cheratussin Itching Codeine GI Upset sick to her stomach but able to tolerate in Tylenol with codeine #3 Doxycycline Intolerance, Vomiting Iodine difficulty breathing, swelling, hives Latex difficulty breathing and swelling Levaquin [Levofloxa* GI Upset Meloxicam Rash pruritic rash within hours of taking med Penicillins Swelling, Shortness of Breath Prednisone Mental Status Change Vicodin [Hydrocodon* Itching swelling Current Outpatient Medications Medication Sig semaglutide (OZEMPIC) 2 mg/dose (8 mg/3 mL) pen injector Inject 2 mg subcutaneously one time a week. cephALEXin (KEFLEX) 500 mg capsule Take 1 capsule by mouth three times daily for 7 days. LORazepam (ATIVAN) 1 mg tablet Take half to 1 whole tablet daily as needed venlafaxine ER (EFFEXOR XR) 75 mg 24 hr capsule Take 1 capsule by mouth once daily. flash glucose sensor (FREESTYLE SHAKIRA 2 SENSOR) kit Apply new sensor every fourteen (14) days to upper arm. atorvastatin (LIPITOR) 40 mg tablet Take 1 tablet by mouth once daily. fluconazole (DIFLUCAN) 150 mg tablet Take 1 tablet at onset of yeast infection and repeat in 3 days dulaglutide (TRULICITY) 4.5 mg/0.5 mL pen injector Inject 4.5 mg subcutaneously one time a week. furosemide (LASIX) 40 mg tablet Take 1 tablet by mouth once daily. albuterol (PROVENTIL) 2.5 mg /3 mL (0.083 %) nebulizer solution inhale contents of one vial in nebulizer every 6 hours if needed for wheezing and shortness of breath albuterol HFA (PROVENTIL HFA, VENTOLIN HFA) 90 mcg/actuation inhaler Inhale 2 Puffs as instructed every 4 hours as needed for wheezing/shortness of breath. May give preferred namebrand (per formularyand/or patient preference) cyclobenzaprine (FLEXERIL) 5 mg tablet Take 1 tablet by mouth three times daily as needed. fluticasone (FLONASE) 50 mcg/actuation nasal spray Use 2 Sprays in each nostril once daily as needed. insulin lispro (HUMALOG KWIKPEN INSULIN) 100 unit/mL Sliding scale as indicated 3 times daily with meals, inject subq 200 to 250 - 5 units 251 to 300 - 8 units 301 to 350 - 12 units 351 to 400 - 15 units over 400 will need to call her doctor for guidance. ipratropium (ATROVENT) 0.02 % nebulizer solution Use 2.5 mL via nebulizer four times daily as needed (wheezing). Use over 5-15minutes. Use in addition to albuterol nebulizer. pantoprazole DR (PROTONIX) 40 mg tablet Take 1 tablet by mouth once daily. losartan (COZAAR) 100 mg tablet Take 1 tablet by mouth once daily. metOLazone (ZAROXOLYN) 5 mg tablet take 1 tablet by mouth 30 MINUTES PRIOR TO TAKING LASIX IF NEEDED FOR INCREASED SWELLING DIRECTED insulin needles, DISPOSABLE, (BD INSULIN PEN NEEDLE UF) 31 gauge x 5/16" USE 6 DAILY DIRECTED with Toujeo and Humalog and Byetta Diaper,Brief, Adult,Disposable (DISPOSABLE BRIEF) Bariatric Briefs - Prevail. Going thru [facility]. 2 per day. blood sugar diagnostic (BLOOD GLUCOSE TEST) test strip Test blood sugar(s) four times daily. Dx: Type 2 DM - Controlled E11.9 Insulin: No Lancets lancets Test blood sugar(s) 4 times daily. Dx: Type 2 DM - Controlled E11.9 Insulin: No magnesium oxide (MAG-OX) 400 mg (241.3 mg magnesium) tablet Take 1 tablet by mouth twice daily. montelukast (SINGULAIR) 10 mg tablet Take 1 tablet by mouth daily at bedtime. oxaprozin (DAYPRO) 600 mg tablet Take 1-2 tablets by mouth once daily. as needed for knee pain. mupirocin (BACTROBAN) 2 % cream Use up to three times a day. Location: left inner thigh emollient combination no.114 (EUCERIN ADVANCED REPAIR) crea Apply 1 application to affected area once daily. insulin degludec (TRESIBA FLEXTOUCH U-200) 200 unit/mL (3 mL) injection Inject 95 Units subcutaneously daily at bedtime. benzonatate (TESSALON PERLES) 100 mg capsule Take 1 capsule by mouth three times daily as needed for cough. topiramate (TOPAMAX) 50 mg tablet Take 1 tablet by mouth daily at bedtime. gabapentin (NEURONTIN) 100 mg capsule Take 2 capsules by mouth daily at bedtime for 180 days. iron polysaccharide complex (FERREX-150) 150 mg iron capsule Take 1 capsule by mouth twice daily. mometasone-formoterol (DULERA) 200-5 mcg/actuation inhaler Inhale 2 Puffs as instructed twice daily. ketoconazole (NIZORAL) 2 % cream apply to affected area OF RASH AND SURROUNDING AREA UNDER BREAST once daily bismuth subsalicylate (PEPTO-BISMOL) 262 mg chew Take 2 tablets by mouth four times daily. docusate sodium (COLACE) 100 mg capsule Take 2 capsules by mouth DAILY AT 6 PM. CPAP AutoPAP 5-12 CM H2O with humidification. Mask (per patient preference) optional chin strap (ifindicated) , filters, tubing, humidifier and lifetime supplies. potassium chloride ER (K-DUR, KLOR-CON) 20 mEq tablet Take 2 tablets by mouth three times daily. ipratropium bromide (ATROVENT) 42 mcg (0.06 %) nasal spray Use 2 Sprays in each nostril four times daily. cetirizine (ZYRTEC) 10 mg tablet Take 1 tablet by mouth once daily. For allergies. Can take at night if causes sedation, Miscellaneous Medical Supply Order: Overnight pulse ox on 4LPM Diagnosis: R09.02 (checking if needsO2 increased at night) ondansetron (ZOFRAN) 4 mg tablet Take 1 tablet by mouth every 8 hours as needed. Ferrous Gluconate 240 mg (27 mg iron) tablet Take 1 tablet by mouth once daily. As directed Blood Pressure Monitor (BLOOD PRESSURE KIT) kit For home use Dx: labile blood pressure loratadine (CLARITIN) 10 mg tablet Take 1 tablet by mouth once daily. Blood-Glucose Meter (FREESTYLE FREEDOM LITE) monitoring kit 1 Each as needed. polyethylene glycol 3350 (MIRALAX) 17 gram/dose powder 2 scoop in liquid daily as needed for bowel movement COMPOUNDED PRESCRIPTION TENS Unit 4 lead. Use as directed. Needs refills for leads 1 per month as needed Dispense 1 with 5 refills. (M48.06) Spinal stenosis, lumbar region, without neurogenic claudication Nebulizer NEBULIZER FOR HOME USE. DX: (J45.20) Mild intermittent asthma without complication No current facility-administered medications for this visit. EXAM: Last 3 Encounter BP Readings: Date: BP: 04/30/2021 126/63 06/19/2020 148/72 03/30/2019 120/80 Wt: 0 kg () BMI: 0.00 kg/(m^2) LABS: Lab Results Component Value Date HBA1C 7.4 07/07/2021 HBA1C 7.2 04/30/2021 HBA1C 6.9 09/05/2020 HBA1C 6.7 03/28/2020 HBA1C 8.4 11/06/2019 CMP: Glucose 179 07/07/2021 BUN 18 07/07/2021 Creatinine, Whole Blood (iSTAT) 0.90 07/07/2021 Sodium 140 07/07/2021 Potassium 4.2 07/07/2021 Chloride 93 07/07/2021 CO2 39 07/07/2021 Protein, Total 8.6 07/07/2021 Albumin 3.7 07/07/2021 Calcium 9.4 07/07/2021 Alkaline Phosphatase 153 07/07/2021 Bilirubin, Total 0.8 07/07/2021 AST 19 07/07/2021 ALT 14 07/07/2021 Creatinine clearance cannot be calculated (Patient's most recent lab result is older than the maximum 180 days allowed.) No results found for: GFR eGFR- (no units) Date Value 09/05/2020 >60 EGFR: >60 mL/min/1.73m2 Lab Results Component Value Date CHOL 151 04/30/2021 CHOL 119 03/28/2020 LDL 90 04/30/2021 LDL 70 03/28/2020 HDL 50 04/30/2021 HDL 37 03/28/2020 TG 54 04/30/2021 TG 59 03/28/2020 The ASCVD Risk score (Annabella CHAPA, et al., 2019) failed to calculate for the following reasons: The systolic blood pressure is missing Albumin/Creat Ratio (mg/g) Date Value 11/06/2019 Not calculated PHARMACOTHERAPY ASSESSMENT/PLAN: 1. Type 2 diabetes (HCC) - ICD9: 250.00, ICD10: E11.9 A1c goal < 8%; Controlled (last A1c 7.4%); No SMBG readings to review today - sent patient information to connect CGM readings with our practice; Patient tolerated Trulicity well but having issues obtaining supply due to back order. Will await Ozempic approval with goal to begin Ozempic for improved BG control. - Start Ozempic 2 mg once weekly (to replace Trulicity) - Continue Tresiba 95 units once daily at bedtime - Continue Humalog three times daily with sliding scale 200 to 250 - 5 units 251 to 300 - 8 units 301 to 350 - 12 units 351 to 400 - 15 units over 400 will need to call her doctor for guidance. 2. Medication management - ICD9: V58.69, ICD10: Z79.899 Reviewed name, strength, route, frequency and time of administration of medications. Medication list updated as described in above medication chart. Follow up: Patient is scheduled to see PCP team on 05/21/22. Patient to follow up with pharmD on 05/31/22. Patient verbalized understanding of instructions. Aurora Aparicio PharmD, BCACP Primary Care Clinical Pharmacist The majority of the pharmacy visit (> 50%) was spent counseling and/or coordinating care for thepatient. [Telephonic] time was 45 minutes. documented [facility]03-16-[facility]23 Miscellaneous Notes* Telephone Encounter - Pati Smith LPN - 05/09/2022 4:27 PM EDT Patient notified of provider message and verbalized understanding. * Telephone Encounter - Erica Cannon MD - 05/08/2022 7:47 PM EDT Can check postmed UA C&S if symptoms do not resolve. Labs filed The following approved medication requests have been transmitted electronically. Requested Prescriptions Signed Prescriptions Disp Refills cephALEXin (KEFLEX) 500 mg capsule 21 capsule 0 Sig: Take 1 capsule by mouth three times daily for 7 days. Authorizing Provider: ERICA CANNON MD * Telephone Encounter - Maria Dolores Ivan RN - 05/08/2022 9:19 AM EDT Patient calls to check on status of request. Patient reports that HH nurse will be coming out todayand patient will need to update her on provider response to request. Patient asking if medication can be prescribed or does another urine specimen need collected. Maria Dolores Ivan RN * Telephone Encounter - Muriel Burgess LPN - 05/07/2022 11:09 AM EDT Pt reports the nurse that sees her did not get her urine specimen to the lab in time so lab was unable to run lab. Pt reports nurse and pt both feel pt has a uti. Pt reports she gets uti's all the time. Muriel Burgess LPN * Telephone Encounter - Nanci Dorado LPN - 05/06/2022 4:24 PM EDT Pt calls and states the following: URINARY SYMPTOMS SYMPTOMS: burning with urination, pressure, smell ONSET: started 3 days ago 05/04/22 PAIN: pain and cramping rating on a scale of 7 or 8. Pt is taking Tylenol. CAUSE: unknown OTHER SYMPTOMS: small amount of pain with urination DENIES: fever, no blood with urine Per pt she is not able to come in for apt or bring in a urine sample. Pt reports she gets these often and requesting medication be sent to pharmacy. Nanci Dorado LPN documented in this encounterNew[facility]03-15-2023 Miscellaneous Notes* Telephone Encounter - Marquez Araya Ma - 05/08/2022 12:38 PM EDT Patient notified, verbalized understanding. * Telephone Encounter - Katya Oliva APRN.CNP - 05/08/2022 12:12 PM EDT The following approved medication requests have been transmitted electronically. Requested Prescriptions Signed Prescriptions Disp Refills semaglutide (OZEMPIC) 2 mg/dose (8 mg/3 mL) pen injector 9 mL 3 Sig: Inject 2 mg subcutaneously one time a week. Authorizing Provider: KATYA OLIVA APRN.CNP * Telephone Encounter - Treva Cr RN - 05/07/2022 1:48 PM EDT Patient calls and states that she has been having issues getting Trulicity due to back order. Patient states that she talked to [facility] and was told that they have Ozempic in. Patient asking if a prescription for Ozempic can be sent into [facility]? Please review and advise, Treva Cr RN documented in this encounterNewark [facility]03-14-2023 Miscellaneous Notes* Telephone Encounter - Silvestre Jain APRN.CNP - 05/07/2022 7:26 AM EDT PDMP website checked and validated. All prescriptions have been APPROPRIATELY filled. No suspiciousactivity was identified. 05/07/2022 by Silvestre Jain APRN.CNP * Telephone Encounter - Rina Rincon LPN - 05/06/2022 2:03 PM EDT Patient had VV on 04/04/2022 with Ivonne North APRN.TRANSCRIPTION TYPIST. Has OV scheduled for 05/21/2022 with Silvestre Sandoval CNP. Rina Matt Mckenzie PEREZ * Telephone Encounter - Allison Mendoza Pss - 05/04/2022 10:50 AM EST Patient has been identified by name and date of : Yes Last office visit in this department: 04/30/2021 RX INSTRUCTIONS: Patient aware RX will be sent to pharmacy. No need to notify patient. Patient phones requesting refills as follows: Requested Prescriptions Pending Prescriptions Disp Refills LORazepam (ATIVAN) 1 mg tablet 24 tablet 0 Sig: Take half to 1 whole tablet daily as needed Please review and advise. Allison Mendoza Pss documented in this [facility]03-10-2023 Miscellaneous Notes* Telephone Encounter - Sridevi Isabel LPN - 05/03/2022 4:25 PM EST Detailed message left for Deirdre of [place] for plan of care. * Telephone Encounter - Lydia North APRN.CNS - 05/03/2022 3:25 PM EST Noted, [place] * Telephone Encounter - Treva Cr RN - 05/03/2022 11:17 AM EST Deirdre PT from [facility] calls to report plan of care for patient and physical therapy will visit patient 2 times a week for 4 weeks. Please review and Advise, Treva Cr RN documented in this encounterNew[facility]03-03-2023 Miscellaneous Notes* Telephone Encounter - Shant Boyle RN - 04/26/2022 3:08 PM EST Patient did not receive this message in time. Advised to EC for evaluation. Patient states she is in a wheelchair and has difficulty walking. Patient agreeable to try EC online for VV. * Telephone Encounter - Silvestre Jain APRN.CNP - 04/26/2022 10:01 AM EST Can she do a virtual visit at 11:40? * Telephone Encounter - Sridevi Isabel LPN - 04/26/2022 9:26 AM EST Spoke with Chelsea and she stated that she has been exposed to strep throat. Has had a sore throat for two days. Denies fever. States able to swallowing but very painful. Asking for treatment. documented in this encounterNew[facility]02-28-2023 History of Present illness Narrative* Silvestre Jain APRN.CNP - 04/23/2022 1:40 PM EST Waited 5 minutes past appointment time for patient to log on to my chart for virtual visit. She didnot log on so provider accessed appointment and sent link for virtual visit via test to cell numberprovided in chart and waited 10 minutes in zoom meeting with no response. documented in this encounterNewark Hospital02-22-2023 Miscellaneous Notes* Telephone Encounter - Mary Woods RN - 04/17/2022 5:17 PM EST Spoke with patient. Given message from provider's office. Patient verbalizes understanding. Mary Woods RN * Telephone Encounter - Sridevi Isabel LPN - 04/17/2022 2:53 PM EST LEFT MESSAGE FOR PATIENT TO CALL OFFICE. * Telephone Encounter - Silvestre Jain APRN.CNP - 04/17/2022 2:28 PM EST Can we call patient and see if she would like a different [facility]? * Telephone Encounter - Anh Hazel LPN - 04/17/2022 1:20 PM EST Vinicio from [facility] calling received orders and they do not take patient insurance. * Telephone Encounter - Marquez Araya Ma - 04/17/2022 11:38 AM EST Faxed to number provided as requested. Marquez Araya Ma * Telephone Encounter - Silvestre Jain APRN.CNP - 04/17/2022 10:48 AM EST Order placed, please fax. Thanks! * Telephone Encounter - Shant Boyle RN - 04/16/2022 4:38 PM EST Patient asking pcp to fax order to [facility] for nursing, PT, OT. Patient reports she wants toreinstate their services. Fax number [phone] documented in this encounterNewark Hospital02-21-2023 Miscellaneous Notes* Telephone Encounter - Rina Rincon LPN - 04/16/2022 5:56 PM EST Patient aware and forwarded the message via [employer] per pt request. Rina Rincon LPN * Telephone Encounter - Erica Cannon MD - 04/16/2022 5:37 PM EST From Leticia: Hi Dr. Cannon, The patient can try calling the [employer] customer service phone number ( ) and request a replacement sensor be sent to her home. Unfortunately the [employer] company that delivers her current supplies would not be able to send a replacement sensor if it is deemed to be too soon to refill per her insurance. Leticia Tell patient to request from [employer] replacement sensors as noted above. If her fingerstick sugar is not matching what is on the Shakira, then agree that sensor is faulty. Make sure she double checks sugar whenever gets an alert. Note that not all patients have symptoms at sugars that are under 80. * Telephone Encounter - Maria Dolores Ivan RN - 04/16/2022 12:32 PM EST Patient returns call and reports that the new transmitter continues to alert that blood sugar readings are low without any symptoms. Patient continues to monitor BS readings and they are not low. This morning when it was alarming low. Fingerstick BS reading was 171. Company is not sending patient any new supplies. Patient feels like there is an issue with the wheel roller since the sensors have been changed and the issue continues. Maria Dolores Ivan RN' * Telephone Encounter - Rina Rincon LPN - 04/16/2022 11:43 AM EST Message left on patient's voicemail to call office for update. Rina Rincon LPN * Telephone Encounter - Rina Gutierrez Mckenzie PEREZ - 04/15/2022 9:33 AM EST Patient called the company that deals with the Freestyle diabetic supplies, was unable to get any help. Patient changed out the transmitter and is working properly. Patient will be short one transmitter due to changing it early. Inquiring about having a extra 1 requested. Rina Matt Mckenzie PEREZ * Telephone Encounter - Erica Cannon MD - 04/13/2022 3:41 PM EST Below noted * Telephone Encounter - Daphne Ochoa LPN - 04/12/2022 4:15 PM EST Called patient to verify that she was able to check her BS. With her regular meter her BS was 150. Her Shakira was still altering her of a low BS. Recommended that she change the transmitter. She states it was just put on today. She is going to call [employer] and let them know of the faulty transmitter and see if they will send a new one. * Telephone Encounter - Daphne Ochoa LPN - 04/12/2022 3:05 PM EST Patient calling, states that her phone keeps alarming her that her glucose is 67. She has a shakira monitor on. She is not having any low blood sugar symptoms and feels fine. Recommended that she checkwith her regular meter to confirm that the shakira is accurate right now. Patient will let office know if it is confirmed low. Please advise. documented in this encounterNew[facility] Hospital02-21-2023 Miscellaneous Notes* Telephone Encounter - Erica Cannon MD - 04/16/2022 5:24 PM EST The following approved medication requests have been transmitted electronically. Requested Prescriptions Signed Prescriptions Disp Refills LORazepam (ATIVAN) 1 mg tablet 24 tablet 0 Sig: Take half to 1 whole tablet daily as needed Authorizing Provider: ERICA CANNON MD * Telephone Encounter - Shant Boyle RN - 04/16/2022 12:38 PM EST Patient has been identified by name and date of : Yes, Provider Dr. Cannon Date 04-16-22 Time12:39 pm Patient phones for refill(s): Requested Prescriptions Pending Prescriptions Disp Refills LORazepam (ATIVAN) 1 mg tablet 24 tablet 0 Sig: Take half to 1 whole tablet daily as needed Date of last office visit with pcp:04-04-22. Next appt: 04-23-22 Last 2 Encounter Wt Readings: Date: Wt: 04/30/2021 0 kg () 06/19/2020 205.9 kg (454 lb) Previous labs/tests for medication: Blood Pressure: BUN (mg/dL) Date Value 07/07/2021 18 09/05/2020 12 Sodium (mmol/L) Date Value 07/07/2021 140 09/05/2020 138 Last 1 Encounter BP Readings: Date: BP: 04/30/2021 126/63 Liver Function: ALT (U/L) Date Value 07/07/2021 14 09/05/2020 13 AST (U/L) Date Value 07/07/2021 19 09/05/2020 25 Please advise. Thank you. Shant Boyle RN documented in this encounterNew[facility] Hospital02-15-2023 Miscellaneous Notes* Telephone Encounter - Anh Hazel LPN - 04/10/2022 9:12 AM EST Patient returned call and went over notes below from Lydia North [employer] with understanding. * Telephone Encounter - Marquez Araya Ma - 04/10/2022 9:09 AM EST TC to patient - poor communication. Will try again later. * Telephone Encounter - Lydia North APRN.KATE - 04/09/2022 4:49 PM EST Please let her know CGM Freestyle 2 supplies were ordered at , not sure if her insurance will cover. * Telephone Encounter - Nanci Dorado LPN - 04/09/2022 11:15 AM EST Pt calling to check status. Please advise pt. Nanci Dorado LPN * Telephone Encounter - Muriel Burgess LPN - 04/08/2022 1:07 PM EST Pt calls to report she is tired of "sticking herself" to check blood sugars. Pt is requesting a Continuous Glucose Monitor and is asking if that would be appropriate for her. Please review and advise. Muriel Burgess LPN documented in this encounterNewark Hospital02-14-2023 Miscellaneous Notes* Telephone Encounter - Sridevi Isabel LPN - 04/09/2022 2:34 PM EST Spoke with [employer] and that is all that they carry. Patient did speak with [employer] and the patient states she was going to look into buying something off of [employer]. * Telephone Encounter - Silvestre Jain APRN.MANAGER [employer] - 04/03/2022 3:00 PM EST Can we check with [facility] if there would be a different mattress we could prescribe for her since she is having issues? See what their advice is and we can prescribe for whatever type of mattress might be more helpful for patient. * Telephone Encounter - Sridevi Isabel LPN - 04/01/2022 4:14 PM EST Patient did speak with a DME company that supplies bariatric mattress/bed and they told her that she doesn't weight enough to qualify for one. She states that her current mattress on her hospital bed is too thin and can feel the metal bars onher buttocks when sitting up in bed. I spoke with [employer] who provided her hospital bed and due to how wide patient's hips are she is currently laying on a bariatric bed on a standard mattress with a gel overlay. * Telephone Encounter - Gya Clements LPN - 03/05/2022 4:24 PM EST Spoke to Patient, she is working on finding out which DME company her insurance uses. Will call once she has the answer. Gay Clements LPN * Telephone Encounter - Rina Rincon LPN - 03/04/2022 12:05 PM EST Attempted to contact patient, no answer. Order for bariatric bed ready to fax when DME information received from patient. Rina Rincon LPN * Telephone Encounter - Erica Cannon MD - 03/01/2022 6:41 PM EST Noted Printed RX for bed * Telephone Encounter - Sridevi Isabel LPN - 02/27/2022 3:15 PM EST Adult Brief addressed in separate message. Hospital bed still in process. * Telephone Encounter - Sridevi Isabel LPN - 02/27/2022 10:27 AM EST Called [facility] and they do not deal in hospital beds. Spoke with patient and she is aware of same. Encouraged her to contact her insurance company to seeif they would be able to help her with a DME that does. She states as of 02/07/22 when she left the hospital her weight was 320lbs. She is requesting the adult diapers with tabs and not pull ups. * Telephone Encounter - Erica Cannon MD - 02/25/2022 7:30 PM EST I pended prescriptions to print for the hospital bed and adult diapers. Would see if [facility] takes care of both bariatric hospital bed and adult diapers. There is no [employer] anymore. [facility] [employer] last I heard does not bill insurances, so patients have to pain for medical supplies then get reimbursed--unless they are no credentialed to bill insurances, probably needs to getthings from another supplier. Also verify needs the adult diapers with the tabs and not pull ups. Sounds like not pulls ups sincementioned that has issues with pulling things over the dressing on her legs. Just want to make surebefore printing up RX. And verify her weight so can put that on the RXs since that might determine size of adult diapers (X-Large versus "bariatric" if there is that size and probably needs weight for the bariatric bed order. * Telephone Encounter - Lili Cummings RN - 02/22/2022 1:21 PM EST Pt called and is notified of providers message. Pt reports the SW she has said she didn't know where to send for a bed through her insurance. She states before she left the half-way they said herinsurance would pay for the bed through [facility], so she would like the order send there. She states in the half-way they used the bariatric adult diapers on her and didn't know if they had th ose available, otherwise and XL. She states she needs the for PT because she can't put on her her underwear they catch on her wound even with the bandage on, so she would need at least 3 a day. Lili Cummings RN * Telephone Encounter - Erica Cannon MD - 02/20/2022 6:35 PM EST 1) Await word from her SW where to send order for larger bed. Thought in first message she was going to check with SW about where to get larger bed with her insurance. 2) Verify needs Depends pull-up large size, also how many per day. She was seen for VV recently Tasneem can add that to recent progress note since we did discuss mobility issues and trouble with twin bed. * Telephone Encounter - Shant Boyle RN - 02/20/2022 1:19 PM EST Patient checking on reply. Reports she is in a twin bed and it is not helping her wounds. * Telephone Encounter - Anh Hazel LPN - 02/19/2022 4:08 PM EST Patient calling asking if PCP is able to get larger Bariatric bed at? [facility] does not have anything big enough for her. She has no side rails so she turns and she is on the floor. Patient plans to call [employer] to help with where she can get larger Bariatric bed from. Patient also requesting to get Depends since she can not move fast enough to make it to the bathroom. Patient said she needs larger size to fit her. She was given [facility] [phone] lizmeeraarturo or Rodney Chairez. Advised patient that DME would need face to face visit notes for that type of item. Patient said send request to PCP and will go from there. Please advise documented in this encounterNewark Hospital02-14-2023 Miscellaneous Notes* Telephone Encounter - Lydia North APRN.KATE - 04/09/2022 1:44 PM EST rx sent today * Telephone Encounter - Nanci Dorado LPN - 04/09/2022 11:13 AM EST Pt called to check status she is out of medication. Nanci Dorado LPN * Telephone Encounter - Muriel Burgess LPN - 04/08/2022 12:25 PM EST Pt calls to report [facility] said the following rx was cancelled by pt. Pt (along with Landon on the phone) reports she did not do this. Asking for a new rx to go to [facility] instead. Also: Arturo reports that [place] got [place] the med list had losartan 50 mg - take 1 tab daily buton med list is has losartan 100 mg - take 1 tab daily. Son is asking if pt is to take 50 mg daily or 100 mg daily. Please review and advise. CALL pt when rx has been sent to pharmacy. Patient has been identified by name and date of : Yes Requested Prescriptions Pending Prescriptions Disp Refills venlafaxine ER (EFFEXOR XR) 75 mg 24 hr capsule 90 capsule 3 Sig: Take 1 capsule by mouth once daily. RX INSTRUCTIONS: Patient aware RX will be sent to pharmacy. No need to notify patient. Muriel Burgess LPN documented in this encounterNewark Hospital02-14-2023 Miscellaneous Notes* Telephone Encounter - Nanci Dorado LPN - 04/09/2022 11:24 AM EST Spoke with pt and she has scheduled a VV for 04-23-22 with Silvestre. Pt has a new HH coming in and she will have them request lab work to be done. Nanci Dorado LPN * Telephone Encounter - Rina Rincon LPN - 04/09/2022 9:27 AM EST Message left on Charu Harobrigette () voicemail to call office for update for patient. Rina Rincon LPN * Telephone Encounter - Erica Cannon MD - 04/06/2022 9:42 AM EST The following approved medication requests have been transmitted electronically. Requested Prescriptions Signed Prescriptions Disp Refills atorvastatin (LIPITOR) 40 mg tablet 30 tablet 11 Sig: Take 1 tablet by mouth once daily. Authorizing Provider: ERICA CANNON MD Have her resume Lipitor. If she wants to try half pill daily first to make sure tolerates it, okay. Note that needs her next follow up appointment scheduled. VV with me was January. Should be seen for at least a 3 or 4 month follow up. If still difficult to come in for offie appointment, okay VV. If still has HH, can order labs to be done by theem. * Telephone Encounter - Sridevi Isabel LPN - 04/01/2022 4:11 PM EST Spoke with patient and she doesn't not remember taking atrovastatin or why she ever stopped taking it. * Telephone Encounter - Rina Rincon LPN - 04/01/2022 3:17 PM EST Message left on EC voicemail to call office concerning patient. Rina Rincon LPN * Telephone Encounter - Liil Cummings RN - 03/27/2022 11:41 AM EST Tylor with [facility] called in asking about an update on the recommended Statin care therapy for Pt. Let her know that we have reached out to the Pt and they were supposed to get back to us, but have not as of yet. Called and left a voicemail for the Patient's legal guardian Charu to call back and ask for a nurse to receive the providers message. Lili Cummings RN * Telephone Encounter - Sridevi Isabel LPN - 03/26/2022 11:15 AM EST Spoke with son Meek who would talk with his older brother about the statin therapy and return call. * Telephone Encounter - Erica Cannon MD - 03/25/2022 8:08 PM EST Verify with patient why not taking Atorvastatin that was prescribed before (last sent 07/16/17). Hasstayed on the med list since pharmD prescribed it. But no recent refills since then Noted insurance called about statin. * Telephone Encounter - Lexii Fowler RN - 03/25/2022 9:56 AM EST [facility] calling and recommending PCP to consider statin therapy for patient, if appropriate. For any questions, call [facility] at [phone]. Thank you. documented in this encounterCleveland [phone] Miscellaneous Notes* Telephone Encounter - Lydia North APRN.CNS - 04/08/2022 1:37 PM EST Printed. Closing this encounter due to other open encounter this date, can address both in one encounter. * Telephone Encounter - Gregoria Lamb Pss - 04/06/2022 11:18 AM EST Patient calling in because she needs a prescription for a new handicap sign for her car. Please advise and call patient when completed. Gregoria Lamb Pss documented in this encounterNewark Hospital02-09-2023 History of Present illness Narrative* Lydia North APRN.TRANSCRIPTION TYPIST - 04/04/2022 10:00 AM EST AMBULATORY TELEPHONE VISIT Meggan Arita has consented to this telephone encounter. Video visit. In [place]. Persons Present: patient Chief Complaint/Reason: eye problem HPI: Presents today with concern for possible eye infection. No others with similar problem Drainage/crusting: yes Itching: yes Painful: yes, surrounding of eye Vision changes: no Duration: one week Exam: Tearing and drainage of left eye, redness and swelling of left eye outer aspect lower lid primarily Data Reviewed: EPIC chart Assessment: (H10.9) Bacterial conjunctivitis of left eye (primary encounter diagnosis) Plan: 1. Bacterial conjunctivitis of left eye - ICD9: 372.39, 041.9, ICD10: H10.9 - see medication orders - Endorse call if high fever, development of periorbital redness or swelling, eye pain, visual changes, concerns or if symptoms persist. - POLYMYXIN B SULFATE 10,000 UNIT-TRIMETHOPRIM 1 MG/ML EYE DROPS Exam is most consistent with bacterial conjunctivitis. Will treat as such. She will let us know if not improving with treatment. Ophthalmology visit endorsed if not improving or any vision changes. Consult placed in the event that this needs to be scheduled. Total Time Spent: 20 minutes Lydia North APRN.TRANSCRIPTION TYPIST documented in this encounterNewark Hospital02-06-2023 Miscellaneous Notes* Telephone Encounter - Sridevi Isabel LPN - 04/01/2022 4:08 PM EST PATIENT NOTIFIED OF SAME. * Telephone Encounter - Erica Cannon MD - 03/30/2022 1:48 PM EST Follow if not resolving The following approved medication requests have been transmitted electronically. Requested Prescriptions Signed Prescriptions Disp Refills fluconazole (DIFLUCAN) 150 mg tablet 2 tablet 0 Sig: Take 1 tablet at onset of yeast infection and repeat in 3 days Authorizing Provider: ERICA CANNON MD * Telephone Encounter - Maria Dolores Ivan RN - 03/29/2022 4:58 PM EST Patient has been identified by name and date of : Yes, Provider Maria Dolores Ivan RN Date 03/29/2022 Time 4:58 pm Patient phones for refill(s): Requested Prescriptions Pending Prescriptions Disp Refills fluconazole (DIFLUCAN) 150 mg tablet 2 tablet 0 Sig: Take 1 tablet at onset of yeast infection and repeat in 3 days Patient requesting for flare up of yeast infection. Date of last office visit with pcp: 02/15/2022 Future appt: none Last 2 Encounter Wt Readings: Date: Wt: 04/30/2021 0 kg () 06/19/2020 205.9 kg (454 lb) Previous labs/tests for medication: Blood Pressure: BUN (mg/dL) Date Value 07/07/2021 18 09/05/2020 12 Sodium (mmol/L) Date Value 07/07/2021 140 09/05/2020 138 Last 1 Encounter BP Readings: Date: BP: 04/30/2021 126/63 Liver Function: ALT (U/L) Date Value 07/07/2021 14 09/05/2020 13 AST (U/L) Date Value 07/07/2021 19 09/05/2020 25 Please advise. Thank you. Maria Dolores Ivan RN documented in this encounterNewark Hospital02-06-2023 Miscellaneous Notes* Telephone Encounter - Rina Rincon LPN - 04/01/2022 3:24 PM EST Office visit notes faxed to the number provided. Rina Rincon LPN * Telephone Encounter - Erica Cannon MD - 03/30/2022 4:10 PM EST Addended the progress note. Print to fax * Telephone Encounter - Treva Cr RN - 03/25/2022 4:11 PM EST Emmanuel from [facility] in [place] calls and requesting office notes to be faxed to [phone]. Emmanuel states that they are providing patient her incontinent supplies and they need this for CMN. Daniel[place]ates that within office note it must contain that patient needs depends and the frequency that patient uses supplies. Called and spoke with patient to verify that she is using [facility] for supplies. Patient states that she is using them for incontinent supplies. Patient states that she uses a new one at least 4times a day. Office note from 02/15/2022 does mention incontinence supplies but does not mention frequency. Please review and advise, Treva Cr RN documented in this encounterNewark Hospital02-01-2023 Miscellaneous Notes* Telephone Encounter - Sridevi Isabel LPN - 03/27/2022 2:49 PM EST PATIENT NOTIFIED OF SAME. * Telephone Encounter - Silvestre Jain APRN.NIKKY - 03/26/2022 12:40 PM EST Please let her know this was sent. Thanks! * Telephone Encounter - Sridevi Isabel LPN - 03/26/2022 11:16 AM EST Patient is requesting a script for nystatin powder. Had been using this in the half-way under skin folds. documented in this encounterNewark Hospital01-30-2023 Miscellaneous Notes* Telephone Encounter - Nanci Dorado LPN - 03/25/2022 1:57 PM EST Spoke with pt and information listed below given. Pt verbalizes understanding. Nanci Dorado LPN * Telephone Encounter - Lydia North APRN.KATE - 03/25/2022 12:53 PM EST Should not take Byetta if taking Trulicity. Rx sent for trulicity. * Telephone Encounter - Nanci Dorado LPN - 03/25/2022 12:08 PM EST Son called for pt. They found Trulicity at [facility] and asking for the prescription to be sent as soon as you can before they rn out. Patient has been identified by name and date of : Yes, Provider Dr. Cannon Date 03/25/22 Time12:10 pm Son phones for refill(s): Requested Prescriptions Pending Prescriptions Disp Refills dulaglutide (TRULICITY) 4.5 mg/0.5 mL pen injector 6 mL 3 Sig: Inject 4.5 mg subcutaneously one time a week. Date of last office visit in primary care: 02/15/22 Last 2 Encounter Wt Readings: Date: Wt: 04/30/2021 0 kg () 06/19/2020 205.9 kg (454 lb) Previous labs/tests for medication: Diabetes: Hemoglobin A1C (%) Date Value 07/07/2021 7.4 04/30/2021 7.2 09/05/2020 6.9 03/28/2020 6.7 Please advise. Thank you. Nanci Dorado LPN documented in this encounterNewark Hospital01-30-2023 Miscellaneous Notes* Telephone Encounter - aNnci Dorado LPN - 03/25/2022 8:13 AM EST Spoke with pt and she will keep the Lorazepam local. Please approve for Randa Bailon. Nanci Dorado LPN * Telephone Encounter - Erica Cannon MD - 03/23/2022 9:25 PM EST Corrected RXs for 90 day supply for [facility] Would recommend keeping lorazepam RX locally but if wants sent to [facility], would still be sent for30 days at a time as for most mailaway [facility]. Note that local RX was just recently filled 03/21 a\\nd prior to this RX, prior refills had usually lasted at 2 to 6 months. So clarify whether she wants to keep RX locally. The following approved medication requests have been transmitted electronically. Requested Prescriptions Pending Prescriptions Disp Refills LORazepam (ATIVAN) 1 mg tablet 24 tablet 0 Sig: Take half to 1 whole tablet daily as needed Signed Prescriptions Disp Refills furosemide (LASIX) 40 mg tablet 90 tablet 3 Sig: Take 1 tablet by mouth once daily. Authorizing Provider: ERICA CANNON albuterol (PROVENTIL) 2.5 mg /3 mL (0.083 %) nebulizer solution 300 mL 5 Sig: inhale contents of one vial in nebulizer every 6 hours if needed for wheezing and shortness ofbreath Authorizing Provider: ERICA CANNON albuterol HFA (PROVENTIL HFA, VENTOLIN HFA) 90 mcg/actuation inhaler 3 Each 3 Sig: Inhale 2 Puffs as instructed every 4 hours as needed for wheezing/shortness of breath. May give preferred namebrand (per formulary and/or patient preference) Authorizing Provider: ERICA CANNON cyclobenzaprine (FLEXERIL) 5 mg tablet 90 tablet 1 Sig: Take 1 tablet by mouth three times daily as needed. Authorizing Provider: ERICA CANNON dulaglutide (TRULICITY) 4.5 mg/0.5 mL pen injector 6 mL 3 Sig: Inject 4.5 mg subcutaneously one time a week. Authorizing Provider: ERICA CANNON fluticasone (FLONASE) 50 mcg/actuation nasal spray 3 Each 3 Sig: Use 2 Sprays in each nostril once daily as needed. Authorizing Provider: ERICA CANNON insulin lispro (HUMALOG KWIKPEN INSULIN) 100 unit/mL 5 Each 3 Sig: Sliding scale as indicated 3 times daily with meals, inject subq 200 to 250 - 5 units 251 to 300 - 8 units 301 to 350 - 12 units 351 to 400 - 15 units over 400 will need to call her doctor for guidance. Authorizing Provider: ERICA CANNON ipratropium (ATROVENT) 0.02 % nebulizer solution 250 mL 5 Sig: Use 2.5 mL via nebulizer four times daily as needed (wheezing). Use over 5- 15minutes. Use in addition to albuterol nebulizer. Authorizing Provider: ERICA CANNON pantoprazole DR (PROTONIX) 40 mg tablet 90 tablet 3 Sig: Take 1 tablet by mouth once daily. Authorizing Provider: ERICA CANNON losartan (COZAAR) 100 mg tablet 90 tablet 3 Sig: Take 1 tablet by mouth once daily. Authorizing Provider: ERICA CANNON venlafaxine ER (EFFEXOR XR) 75 mg 24 hr capsule 90 capsule 3 Sig: Take 1 capsule by mouth once daily. Authorizing Provider: ERICA CANNON metOLazone (ZAROXOLYN) 5 mg tablet 90 tablet 1 Sig: take 1 tablet by mouth 30 MINUTES PRIOR TO TAKING LASIX IF NEEDED FOR INCREASED SWELLING DIRECTED Authorizing Provider: ERICA CANNON MD * Telephone Encounter - Gay Clements LPN - 03/23/2022 9:33 AM EST Patient wanting RXs to go to mail-order pharmacy. Patient has been identified by name and date of : Yes, Patient phones for refill(s): Requested Prescriptions Pending Prescriptions Disp Refills cyclobenzaprine (FLEXERIL) 5 mg tablet 30 tablet 1 Sig: Take 1 tablet by mouth three times daily as needed. fluticasone (FLONASE) 50 mcg/actuation nasal spray 1 Each 5 Sig: Use 2 Sprays in each nostril once daily as needed. furosemide (LASIX) 40 mg tablet 90 tablet 3 Sig: Take 1 tablet by mouth once daily. albuterol (PROVENTIL) 2.5 mg /3 mL (0.083 %) nebulizer solution 300 mL 5 Sig: inhale contents of one vial in nebulizer every 6 hours if needed for wheezing and shortness ofbreath insulin lispro (HUMALOG KWIKPEN INSULIN) 100 unit/mL 3 mL 2 Sig: Sliding scale as indicated 3 times daily with meals, inject subq 200 to 250 - 5 units 251 to 300 - 8 units 301 to 350 - 12 units 351 to 400 - 15 units over 400 will need to call her doctor for guidance. LORazepam (ATIVAN) 1 mg tablet 24 tablet 0 Sig: Take half to 1 whole tablet daily as needed losartan (COZAAR) 100 mg tablet 30 tablet 11 Sig: Take 1 tablet by mouth once daily. metOLazone (ZAROXOLYN) 5 mg tablet 12 tablet 1 Sig: take 1 tablet by mouth 30 MINUTES PRIOR TO TAKING LASIX IF NEEDED FOR INCREASED SWELLING DIRECTED pantoprazole DR (PROTONIX) 40 mg tablet 30 tablet 5 Sig: Take 1 tablet by mouth once daily. dulaglutide (TRULICITY) 4.5 mg/0.5 mL pen injector 2 mL 3 Sig: Inject 4.5 mg subcutaneously one time a week. venlafaxine ER (EFFEXOR XR) 75 mg 24 hr capsule 30 capsule 5 Sig: Take 1 capsule by mouth once daily. albuterol HFA (PROVENTIL HFA, VENTOLIN HFA) 90 mcg/actuation inhaler Sig: Inhale 2 Puffs as instructed every 4 hours as needed. May give preferred namebrand (per formulary and/or patient preference) ipratropium (ATROVENT) 0.02 % nebulizer solution 250 mL 5 Sig: Use 2.5 mL via nebulizer four times daily as needed (wheezing). Use over 5- 15minutes. Use in addition to albuterol nebulizer. Date of last office visit in primary care: 02/15/2022 No future appt scheduled. Last 2 Encounter Wt Readings: Date: Wt: 04/30/2021 0 kg () 06/19/2020 205.9 kg (454 lb) Previous labs/tests for medication: Diabetes: Hemoglobin A1C (%) Date Value 07/07/2021 7.4 04/30/2021 7.2 09/05/2020 6.9 03/28/2020 6.7 Blood Pressure: BUN (mg/dL) Date Value 07/07/2021 18 09/05/2020 12 Sodium (mmol/L) Date Value 07/07/2021 140 09/05/2020 138 Last 1 Encounter BP Readings: Date: BP: 04/30/2021 126/63 Please advise. Thank you. Gay Clements LPN * Telephone Encounter - Michelle Cedeno - 03/22/2022 2:42 PM EST Patient has been identified by name and date of : Yes Requested Prescriptions Pending Prescriptions Disp Refills cyclobenzaprine (FLEXERIL) 5 mg tablet 30 tablet 1 Sig: Take 1 tablet by mouth three times daily as needed. fluticasone (FLONASE) 50 mcg/actuation nasal spray 1 Each 5 Sig: Use 2 Sprays in each nostril once daily as needed. furosemide (LASIX) 40 mg tablet 90 tablet 3 Sig: Take 1 tablet by mouth once daily. albuterol (PROVENTIL) 2.5 mg /3 mL (0.083 %) nebulizer solution 300 mL 5 Sig: inhale contents of one vial in nebulizer every 6 hours if needed for wheezing and shortness ofbreath insulin lispro (HUMALOG KWIKPEN INSULIN) 100 unit/mL 3 mL 2 Sig: Sliding scale as indicated 3 times daily with meals, inject subq 200 to 250 - 5 units 251 to 300 - 8 units 301 to 350 - 12 units 351 to 400 - 15 units over 400 will need to call her doctor for guidance. LORazepam (ATIVAN) 1 mg tablet 24 tablet 0 Sig: Take half to 1 whole tablet daily as needed losartan (COZAAR) 100 mg tablet 30 tablet 11 Sig: Take 1 tablet by mouth once daily. metOLazone (ZAROXOLYN) 5 mg tablet 12 tablet 1 Sig: take 1 tablet by mouth 30 MINUTES PRIOR TO TAKING LASIX IF NEEDED FOR INCREASED SWELLING DIRECTED pantoprazole DR (PROTONIX) 40 mg tablet 30 tablet 5 Sig: Take 1 tablet by mouth once daily. dulaglutide (TRULICITY) 4.5 mg/0.5 mL pen injector 2 mL 3 Sig: Inject 4.5 mg subcutaneously one time a week. venlafaxine ER (EFFEXOR XR) 75 mg 24 hr capsule 30 capsule 5 Sig: Take 1 capsule by mouth once daily. albuterol HFA (PROVENTIL HFA, VENTOLIN HFA) 90 mcg/actuation inhaler Sig: Inhale 2 Puffs as instructed every 4 hours as needed. May give preferred namebrand (per formulary and/or patient preference) ipratropium (ATROVENT) 0.02 % nebulizer solution 250 mL 5 Sig: Use 2.5 mL via nebulizer four times daily as needed (wheezing). Use over 5- 15minutes. Use in addition to albuterol nebulizer. RX INSTRUCTIONS: Pharmacy initiated this request. No need to notify patient. Michelle Cedeno documented in this encounterNewark Hospital01-19-2023 Miscellaneous Notes* Telephone Encounter - Treva Cr RN - 03/14/2022 8:58 AM EST Patient called and notified that prescription was sent to pharmacy. Patient voiced understanding. Treva Cr RN * Telephone Encounter - Lili Cummings RN - 03/14/2022 8:26 AM EST Called and left a voicemail for the Patient to call back and ask for a nurse to receive the providers message. Lili Cummings RN * Telephone Encounter - Erica Cannon MD - 03/13/2022 8:22 PM EST Start with Mounjaru 5mg weekly assuming able to find) Will titrate up as tolerated by 2.5 mg at a time every 4 weeks. Max dose 15 mg per week The following approved medication requests have been transmitted electronically. Requested Prescriptions Signed Prescriptions Disp Refills tirzepatide (MOUNJARO) 5 mg/0.5 mL pen injector 2 mL 2 Sig: Inject 5 mg subcutaneously one time a week. Authorizing Provider: ERICA CANNON MD If above not available, then try another option. We might need to use insulin at higher dose if not able to find alternative for Trulicity soon enough before she runs out of Trulicity or if already ran out * Telephone Encounter - Nanci Dorado LPN - 03/13/2022 3:48 PM EST Pt called back to check status and wanted this to be sent as high priority. Nanci Dorado LPN * Telephone Encounter - Shant Boyle RN - 03/13/2022 9:42 AM EST Patient reports she looked everywhere for the trulicity, 3,4,& 5 mg. It is not any where in [place] or [facility]. Asking if there is another medication that does the same thing? Please advise patient. documented in this encounterNewark Hospital01-17-2023 Miscellaneous Notes* Telephone Encounter - Chayito Boyd Ma - 03/12/2022 12:44 PM EST Patient picked rx up on 03/01 for 28 day supply Chayito Boyd Ma * Telephone Encounter - Chayito Boyd Ma - 02/27/2022 5:08 PM EST Prior Authorization has been completed online at [employer] for Trulicity, will await response. HERNÁNDEZ [id number] Please keep encounter open until final decision has been received and documented from insurance company. Chayito Boyd MA * Telephone Encounter - Treva Cr RN - 02/27/2022 4:16 PM EST PRIOR AUTHORIZATION Medication for Prior Authorization: Trulicity Insurance Company: Medicaid Patient insurance ID number: [id number] Treva Cr RN * Telephone Encounter - Mary Woods RN - 02/27/2022 3:21 PM EST Patient calling to say Trulicity 1.5 mg dose needs a prior authorization. She will call back with insurance information. Mary Woods RNREPAIRER HAIRSPRING Medication for Prior Authorization: Trulicity 1.5 mg Other formulary meds available : NO Insurance Company: Medicaid Insurance Company phone number: Patient insurance ID number: Mary Woods RN documented in this encounterNewark Hospital01-17-2023 Miscellaneous Notes* Telephone Encounter - Nanci Dorado LPN - 03/12/2022 9:11 AM EST Spoke with pt and information listed below given. Pt verbalizes understanding. Nanci Dorado LPN * Telephone Encounter - Erica Cannon MD - 03/11/2022 8:45 PM EST Some months does not need lorazepam filled in 30 days and last longer than a month. Sometimes does not last as long.. Will okay RX for 24 days from when was filled. Next dose is 4.5 mg so sent that. The following approved medication requests have been transmitted electronically. Requested Prescriptions Signed Prescriptions Disp Refills LORazepam (ATIVAN) 1 mg tablet 24 tablet 0 Sig: Take half to 1 whole tablet daily as needed Do not start before March 21, 2022. Authorizing Provider: ERICA CANNON dulaglutide (TRULICITY) 4.5 mg/0.5 mL pen injector 2 mL 3 Sig: Inject 4.5 mg subcutaneously one time a week. Authorizing Provider: ERICA CANNON MD * Telephone Encounter - Anh Hazel ANA - 03/11/2022 2:25 PM EST Patient calling said that the Dr in the half-way was going to increase her Trulicity to 4 mg weekly. Patient asking if she could have that increased when she goes to get her next refill? Patient is currently taking 3 mg weekly. Patient said home health nurse neetu labs last week she thinks. Patient is also asking for her refill on her Lorazepam, it is not due yet but she wants to make sure it is sent to the pharmacy so she does not run out. Patient said nurse fills pill box for her, shehas 4 pills left after the end of this week 03/16/2022. Patient uses [facility] for her pharmacy. Please advise Patient has been identified by name and date of : Patient phones for refill(s): Requested Prescriptions Pending Prescriptions Disp Refills LORazepam (ATIVAN) 1 mg tablet 24 tablet 0 Sig: Take half to 1 whole tablet daily as needed Date of last office visit in primary care: 02/15/2022, no future appt scheduled Last 2 Encounter Wt Readings: Date: Wt: 04/30/2021 0 kg () 06/19/2020 205.9 kg (454 lb) Previous labs/tests for medication: Diabetes: Hemoglobin A1C (%) Date Value 07/07/2021 7.4 04/30/2021 7.2 09/05/2020 6.9 03/28/2020 6.7 Please advise. Thank you. Anh Hazel LPN documented in this encounterNewark Hospital01-09-2023 Miscellaneous Notes* Telephone Encounter - Nanci Dorado LPN - 03/04/2022 2:46 PM EST Spoke with pt and she is not taking the Zoloft or Effexor. Nanci Dorado LPN * Telephone Encounter - Erica Cannon MD - 03/02/2022 11:15 PM EST I assumed she stopped Wellbutrin and Zoloft and took off med list (which should cancel refills at pharmacy). Noted that has not refilled either med for several months per Medication Reconciliation. Verify with patient that Zoloft and Wellbutrin were stopped. The following approved medication requests have been transmitted electronically. Requested Prescriptions Signed Prescriptions Disp Refills pantoprazole DR (PROTONIX) 40 mg tablet 30 tablet 5 Sig: Take 1 tablet by mouth once daily. Authorizing Provider: ERICA CANNON venlafaxine ER (EFFEXOR XR) 75 mg 24 hr capsule 30 capsule 5 Sig: Take 1 capsule by mouth once daily. Authorizing Provider: ERICA CANNON MD * Telephone Encounter - Shant Boyle RN - 03/02/2022 10:08 AM EST Patient also requesting refill on venlafaxine (effexor) 75 mg daily, prescribed by the half-way. Patient has been identified by name and date of : Yes, Provider Dr. Cannon Date 03-02-22 Time 10:10 am Patient phones for refill(s): Requested Prescriptions Pending Prescriptions Disp Refills pantoprazole DR (PROTONIX) 40 mg tablet 60 tablet 11 Sig: Take 1 tablet by mouth twice daily before meals (0600/1600). Take this dose for one month, then return to daily dosing. Date of last office visit with pcp: 02-15-22. Next appt: none Last 2 Encounter Wt Readings: Date: Wt: 04/30/2021 0 kg () 06/19/2020 205.9 kg (454 lb) Previous labs/tests for medication: Blood Pressure: BUN (mg/dL) Date Value 07/07/2021 18 09/05/2020 12 Sodium (mmol/L) Date Value 07/07/2021 140 09/05/2020 138 Last 1 Encounter BP Readings: Date: BP: 04/30/2021 126/63 Liver Function: ALT (U/L) Date Value 07/07/2021 14 09/05/2020 13 AST (U/L) Date Value 07/07/2021 19 09/05/2020 25 Please advise. Thank you. Shant Boyle RN documented in this encounterNewark Hospital01-09-2023 Miscellaneous Notes* Telephone Encounter - Shant Boyle RN - 03/04/2022 10:29 AM EST Patient was notified of this when she called in on Sat, 1-7, for another reason. * Telephone Encounter - Erica Cannon MD - 03/01/2022 8:04 PM EST The following approved medication requests have been transmitted electronically. Requested Prescriptions Signed Prescriptions Disp Refills cyclobenzaprine (FLEXERIL) 5 mg tablet 30 tablet 1 Sig: Take 1 tablet by mouth three times daily as needed. Authorizing Provider: ERICA CANNON MD * Telephone Encounter - Shant Boyle RN - 03/01/2022 4:47 PM EST Patient reports the [facility] nurse was there today and neetu labs at around 11 am. Nurse was going to call pcp office and ask pcp to send Rx to [facility] for muscle relaxers. Patient reports her shoulders are hurting and feels muscle relaxers would help. Please advise patient. Patient asking message be sent high alert. documented in this encounterNewark Hospital01-06-2023 Miscellaneous Notes* Telephone Encounter - Nanci Dorado LPN - 03/01/2022 9:09 AM EST Janey called back and message below given. Pt had a A1C and CBC done on 02-27-22. She will do the rest of the labs. Nanci Dorado LPN * Telephone Encounter - Lxeii Fowler RN - 03/01/2022 8:03 AM EST Left basic VM for Janey at [facility] to call PCP office for verbal order for patient labs, asordered in note below. Lexii Fowler RN * Telephone Encounter - Clifford England MD - 02/28/2022 6:06 PM EST Okay for to draw fasting labs tomorrow. Do all labs expected by PCP for 02/20/22. * Telephone Encounter - Lexii Fowler RN - 02/28/2022 3:13 PM EST Pt is at home now, receiving [facility] with Amparo. Also, [facility] Nurse Janey called and states she was not able to get enough blood when trying to do blood draw on patient recently. [facility] Nurse asking if okay to draw ordered labs for pt vinny? Please advise Janey at [phone]. Thank you. * Telephone Encounter - Clifford England MD - 02/28/2022 1:28 PM EST Is she still in [facility]CF? If not, have her complete labs ordered. This will help in decisions. She has no PCP follow up scheduled. * Telephone Encounter - Lexii Fowler RN - 02/28/2022 9:20 AM EST Patient calling and states she has been waiting authorization on her Tr[facility] (See 02/27/22 encounter). She states she is not sure when it will be authorized. Patient states it has been 2 weeks since she has taken her last trulicity injection. Pt asking for PCP team to advise. Pt asking for this message to be sent "urgently". Will send message to [facility] provider for review. Thank you. documented in this encounterNewark Hospital01-04-2023 Miscellaneous Notes* Telephone Encounter - Anh Hazel LPN - 02/27/2022 3:12 PM EST Patient returned call and went over notes below aware rx to pharmacy. * Telephone Encounter - Sridevi Isabel LPN - 02/27/2022 3:05 PM EST Attempted to reach patient with no answer and unable to leave message duet to mailbox is full. * Telephone Encounter - Silvestre Jain APRN.CNP - 02/27/2022 2:30 PM EST I resent this, I have no idea where the first one went, it disappeared! * Telephone Encounter - Sridevi Isabel LPN - 02/27/2022 2:25 PM EST No order found for the Trulicity. * Telephone Encounter - Silvestre Jain APRN.CNP - 02/27/2022 2:18 PM EST Please send order to [facility] for the bariatric briefs, also let patient know I sent in for the trulicity 1.5 mg and can take x2 to equal 3 mg weekly * Telephone Encounter - Nanci Dorado LPN - 02/27/2022 11:35 AM EST Pt checking status with information listed below. Also question below asking regarding sliding scale for Humalog was taken care of by her Home Health Nurse. Nanci Dorado LPN * Telephone Encounter - Sridevi Isabel LPN - 02/27/2022 10:34 AM EST Patient states that the pharmacy does have the 1.5 mg Trulicity injections available and she is willing to do two injections to total the 3 mg that she is prescribed. * Telephone Encounter - Nanci Dorado LPN - 02/27/2022 8:54 AM EST Pt called to check status on questions below and she had another question. What does she do if her sugar goes over 200. Pt reports this does not happen very often. She reports she is keeping her DM under control. Please advise. Nanci Dorado LPN * Telephone Encounter - Nanci Dorado LPN - 02/26/2022 9:37 AM EST Pt called and reports she can not get the Trulicity she needs. Not able to find at any pharmacy. Ptis on Trulicity 3 mg. Pt wants to stay on Trulicity. This has worked well for her. She is willing to take multiply shots if needed to stay on the same medication. Please advise. 2. Open wound on upper leg. Requesting Prescription for Bariatric Briefs - Prevail. Going thru [facility]. These work best pulling up past her wound. She is using 2 per day. Nanci Dorado LPN documented in this encounterNewark Hospital01-04-2023 Miscellaneous Notes* Telephone Encounter - Sridevi Isable LPN - 02/27/2022 2:30 PM EST Order faxed and Joe aware of same. * Telephone Encounter - Silvestre Jain APRN.CNP - 02/27/2022 1:51 PM EST Order signed, please let HH know. * Telephone Encounter - Maria Dolores Ivan RN - 02/26/2022 12:28 PM EST Joe with [facility] calls to report that they need a written order for wound care to thighs cleanse the areas daily and apply a Mepilex dressing daily. Order pended with requested directions. Fax order to [phone]. Maria Dolores Ivan RN documented in this encounterNewark Hospital01-04-2023 Miscellaneous Notes* Telephone Encounter - Lexii Fowler RN - 02/27/2022 2:05 PM EST VM left for Griselda regarding message below. Lexii Fowler RN * Telephone Encounter - Silvestre Jain APRN.NIKKY - 02/27/2022 1:47 PM EST Okay to give verbal approval. Thanks * Telephone Encounter - Lexii Fowler RN - 02/27/2022 9:04 AM EST Griselda, an OT with [facility] ([facility]) calling to state pt was reassessed yesterday for supervision. Griselda requesting verbal approval for plan of care for patient: Pt to be seen 1 time per week for 1 week then 2 times per week for 4 weeks. Please call Griselda at [phone]. Thank you. documented in this encounterNewark Hospital01-04-2023 Miscellaneous Notes* Telephone Encounter - Nanci Dorado LPN - 02/27/2022 1:44 PM EST May need to add Humalog to pt's med list 100 units/ml. Sliding scale below. Nanci Dorado LPN * Telephone Encounter - Nanci Dorado LPN - 02/27/2022 11:51 AM EST Janey with [facility] called to get a refill for pt on her Pen needles to use with her sliding scale Humalog . Pt has been instructed bu Janey on her sliding scale and she wrote it down 200 to 250 - 5 units 251 to 300 - 8 units 301 to 350 - 12 units 351 to 400 - 15 units over 400 will need to call her doctor for guidance. Pt does not need to use this very often pt is very controlled on her medication. FYI: Janey also wanted you to know she neetu blood today for lab work due. Pt's blood would flow then stop. Jaky had to poke her twice and got what she could and took to lab. If not all blood work can be done will go back out this week if possible or next week to draw what was not done and willneed new orders. She will let you know what she needs. Nanci Dorado LPN documented in this encounterNewark Hospital01-03-2023 Miscellaneous Notes* Telephone Encounter - Sridevi Isabel LPN - 02/26/2022 11:26 AM EST Attempted to call Janey at [phone] but message received stating that the number is no longerin service. Copy of this note and lab orders faxed to number listed below. * Telephone Encounter - Erica Cannon MD - 02/20/2022 6:22 PM EST 1) Agreeable to leave the other thigh wounds open to air to keep healing. 2) Okay to change to Mepilex dressings after cleaning wound. noted wound size. 3) Okay order for Press Writer to assist patient with resources 4) Print orders that I filed for outside orders if cannot find the ones I printed already. Does Home Health nurse need printed orders faxed to them for dressing change? Or do they just need verbal okay to change dressings to Mepilex dressing as requested below? If need printed order, then verify how often for dressing changes. * Telephone Encounter - Lexii Fowler RN - 02/19/2022 2:23 PM EST Janey, a nurse with [facility] calling to respond to PCP office with wound information as well as other updates. Patient has two outer thigh wounds. nurse states they are healing well and leaving them open to air would be best for patient if PCP agreeable. No drainage or s/sx infection present. Pt has one wound to left inner thigh that pt reports began while in SNF and transfer pad rubbed onto her inner leg. Area is 5.5cm x 1.8cm x 0.0cm. Nurse states a Mepilex dressing would be recommended, after cleansing wound routinely to prevent urine from getting into wound. Currently santyl, calcium alginate and a nonadherent bordered dressing is being used. 3. HH Nurse states patient has symptoms anxiety and depression. Asking if PCP would place order forSocial Worker to visit patient to assist with resources. nurse asks for recent lab orders to be faxed to [phone]. Faxed as requested. Please call Janey with reply. Thank you. documented in this encounterNewark Hospital12-31-2022 Miscellaneous Notes* Telephone Encounter - Clifford England MD - 02/23/2022 10:27 AM EST Patient's request for medication is as follows Requested Prescriptions Signed Prescriptions Disp Refills dulaglutide (TRULICITY) 3 mg/0.5 mL pen injector 2 mL 2 Sig: Inject 3 mg subcutaneously one time a week. Authorizing Provider: CLIFFORD ENGLAND Order entered - please phone pharmacy and notify patient. Clifford England MD * Telephone Encounter - Mary Woods RN - 02/23/2022 9:55 AM EST Patient calling with refill request for Trulicity. She states her dose was increased to 3 mg while she was in the half-way. Her med list was not updated @ half-way discharge on 02/15/22. [facility]. Mary Woods RN documented in this encounterNewark Hospital12-27-2022 Miscellaneous Notes* Telephone Encounter - Lexii Fowler RN - 02/19/2022 2:35 PM EST See 02/19/22 telephone encounter. Lexii Fowler RN * Telephone Encounter - Rina Rincon LPN - 02/15/2022 4:34 PM EST Pt had VV today and PCP inquiring as to what [facility] is needing in the way of orders to care for patient. Lab orders are printed and will be faxed to number provided. Rina Rincon LPN documented in this encounterNewark Hospital12-26-2022 Miscellaneous Notes* Telephone Encounter - Nanci Dorado LPN - 02/18/2022 12:52 PM EST Spoke with pt and information listed below given. Pt verbalizes understanding. Nanci Dorado LPN * Telephone Encounter - Erica Cannon MD - 02/16/2022 12:47 PM EST E. coli UTI Patient allergic or intolerant to most antibiotics that is sensitive to. Tolerated Keflex before, so will try this. Try other cephalosporin if not effective The following approved medication requests have been transmitted electronically. Requested Prescriptions Signed Prescriptions Disp Refills cephALEXin (KEFLEX) 500 mg capsule 21 capsule 0 Sig: Take 1 capsule by mouth three times daily for 7 days. Authorizing Provider: ERICA CANNON MD Sent OpenPl[employer] message * Telephone Encounter - Ruchi Malone LPN - 02/16/2022 9:38 AM EST Rec'd ua and C&S. In scanned labs. Please review. View External Lab - Ua and C\\T\\S [ID [id number]] documented in this encounterNewark Hospital12-23-2022 History of Present illness Narrative* Erica Cannon MD - 02/15/2022 2:39 PM EST VIRTUAL VISIT PROGRESS NOTE This is a virtual visit using OpenPlacement video visit. It required patient-provider interaction for themedical decision making as documented below. Meggan Arita is a 61 year old female seen for follow up from rehab at [facility]. Will start PT at home next Friday. Still not able to do steps. Still needs to walk with assistance. Has walker. Needs someone beside her though. Fell second day was home. No injuries noted. Knees are bummed out. 2 weeks prior to going home, had gel injections in both knees. Did help some. Has large wound and pictures and measurements were sent to our office per patient. [facility] number for nurse (Jaky) [phone]--this is who told patient she sent info here for dressing changes. Sister Stephen has been doing dressing changes since she is home. Had some things left from [facility]--silvadene--not working as well as [facility]ound [facility] foam (Promogram) Twin bed from [facility]. and told only size they have. Hard to turn and makes thighs hurt from rubbing together. No rails on bed--uses them to change position. Needs someone to help her now. Lots of meds changed when was in half-way. Viewed images for wound on left medial thigh about 1.5" X 6" and 2 smaller wounds dime size with some slough and the other about left lateral thigh quarter to half dollar size with some slough. Not using lactulose. Taking green juice instead from [employer]. Was given 1 medicine cup twice daily and caused severe loose stools and affected doing PT in rehab. Now bowels every other day.No constipation. Has follow up with client services manager, Dr. Devine. Lost 200 pounds..Folcused on eating healthier. Can wear a pair of jeans could not wear 5 years ago.Able to put them on and was still loose. HISTORY REVIEWED (electronic chart updated): PAST MEDICAL HISTORY Diagnosis Date Acute gastritis without mention of hemorrhage ALLERGIC RHINITIS NOS 07/15/2007 ANXIETY STATE NOS 12/09/2006 Carpal tunnel syndrome 04/10/2007 Bilateral symptoms with the left worse than the right as of 04-03 CHOLELITH W CHOLECYS NEC 02/07/2005 Lap favio in 03-01 Chronic hepatitis, unspecified (HCC) 03/06/2005 Depression Edema 06/01/2007 Admit 07-08-08 for RLE venous stasis ulcer on Cubicin. Put pt on disability from 08-03-08 to 11-24-08 Esophageal reflux GENERAL OSTEOARTHROSIS 10/29/2006 Headache(784.0) 01/20/2007 [facility] Rheum 12-26: consid Sjogren's, CT chest/MRI head/HYUN/KEO/OSMANY/ANCA/SSA/SSB neg Again reinforced the need to start CPAP on 03-04-07: unable to afford as of 04-03 for insurance issues INSOMNIA NOS 07/31/2007 IRON DEFIC ANEMIA NOS 01/20/2007 Colon 03-22-02 ([facility]): no polyps, masses or AVMs Lactose intolerance Low blood potassium 10/20/2014 Low magnesium level 07/08/2016 Morbid obesity (HCC) Obesity, unspecified Obstructive sleep apnea Other dyspnea and respiratory abnormality Primary osteoarthritis of both knees 03/08/2020 severe narrowing of the medial joint space with marginal osteophytes--x-ray knee 2016 SPINAL STENOSIS-LUMBAR 07/09/2007 Stasis edema with ulcer (HCC) 08/02/2013 Type II or unspecified type diabetes mellitus without mention of complication, not stated as uncontrolled 08/05/2007 Unspecified asthma(493.90) Unspecified essential hypertension PAST SURGICAL HISTORY Procedure Laterality Date BIOPSY LIVER NEEDLE PERCUTANEOUS 03/06/05 DELIVERY ONLY 1979 , low cervical DELIVERY ONLY 1980 , low cervical DELIVERY ONLY 1986 , low cervical COLONOSCOPY FLX DX W/COLLJ SPEC WHEN PFRMD 01/30/16 Colonoscopy [facility] outpt EGD TRANSORAL BIOPSY SINGLE/MULTIPLE 07/22/06 ESOPHAGOGASTRODUODENOSCOPY TRANSORAL DIAGNOSTIC 2001 EGD ESOPHAGOGASTRODUODENOSCOPY TRANSORAL DIAGNOSTIC 01/30/16 EGD [facility] outpt IMPLANT MESH OPN HERNIA RPR/DEBRIDEMENT CLOSURE 03/06/05 LAPAROSCOPY SURG RPR INITIAL INGUINAL HERNIA 03/06/05 LAPS SURG CHOLECYSTECTOMY W/CHOLANGIOGRAPHY 03/06/05 LIG/TRNSXJ FLP TUBE ABDL/VAG APPR UNI/BI 1986 Tubal ligation OPTX ANKLE DISLOCATION W/REPAIR/INT/XTRNL FIXJ ORIF Ankle FAMILY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 infusions Encourage her to get more protein in her diet as we had discussed * Telephone Encounter - Shant Vinicio Boyle RN - 07/09/2021 1:53 PM EDT Patient asking pcp to review and advise on recent lab results. Component Latest Ref Rng & Units 07/07/2021 Protein, Total 6.3 - 8.0 g/dL 8.6 (H) Albumin 3.9 - 4.9 g/dL 3.7 (L) Calcium 8.5 - 10.2 mg/dL 9.4 Bilirubin, Total 0.2 - 1.3 mg/dL 0.8 Alkaline Phosphatase 34 - 123 U/L 153 (H) AST 13 - 35 U/L 19 ALT 7 - 38 U/L 14 Glucose 74 - 99 mg/dL 179 (H) BUN 7 - 21 mg/dL 18 Creatinine 0.58 - 0.96 mg/dL 0.90 Sodium 136 - 144 mmol/L 140 Potassium 3.7 - 5.1 mmol/L 4.2 Chloride 97 - 105 mmol/L 93 (L) CO2 22 - 30 mmol/L 39 (H) Anion Gap 9 - 18 mmol/L 8 (L) eGFR >=60 mL/min/1.73m 73 WBC 3.70 - 11.00 k/uL 8.87 RBC 3.90 - 5.20 m/uL 3.61 (L) Hemoglobin 11.5 - 15.5 g/dL 7.5 (L) Hematocrit 36.0 - 46.0 % 30.2 (L) MCV 80.0 - 100.0 fL 83.7 MCH 26.0 - 34.0 pg 20.8 (L) MCHC 30.5 - 36.0 g/dL 24.8 (L) RDW-CV 11.5 - 15.0 % 17.7 (H) Platelet Count 150 - 400 k/uL 246 MPV 9.0 - 12.7 fL 11.5 Absolute nRBC <0.01 k/uL <0.01 Iron 41 - 186 ug/dL 26 (L) TIBC 232 - 386 ug/dL 436 (H) Transferrin Saturation 15 - 57 % 6 (L) Hemoglobin A1C 4.3 - 5.6 % 7.4 (H) Estimated Average Glucose mg/dL 166 Magnesium 1.7 - 2.3 mg/dL 1.5 (L) Vitamin B12 232-1,245 pg/mL 882 Folate >4.7 ng/mL 8.5 Ferritin 14.7 - 205.1 ng/mL 13.8 (L) documented in this encounterNewark Hospital05-18-2022 History of Present illness Narrative* MARIELA Fraser - 07/11/2021 8:53 AM EDT Behavioral Health Social Work Assessment Patient was seen for an initial evaluation. All information is from patient report except when noted. This evaluation is NOT intended for forensic, disability, or child custody purposes. Informed consent was discussed and signed by the patient. -Pt was sent [employer]ioS[employer]t msg with consent for [facility] Assessment: Virtual No Show 9:05am Pt had not joined visit [facility] attempted to contact Pt -no answer -unable to leave [facility] stayed on visit until 9:30am -Pt did not join visit [facility] sent [employer]t msg to reschedule appt and included no show ltr Will wait to hear from Pt Patient identified for [facility] from: PCP (Dr Cannon) Reason for referral: Resources Behavioral Health Resources: Psychology - talk therapy (Reactive depression,Anxiety state) [facility] encounter type: OpenPlacement Message Attempts to Outreach: 8 attempts Referral made: Psychology - Internal Psychology-Internal referral type: (to resched appt/ no show letter) Final Disposition: Resources given (07-11-21 no show for appt, unable to leave , sent mychart msg to resched, included no show ltr) Patient Discharged?: Yes Patient reported that caregiver was able to meet their needs today?: N/A MARIELA Fraser documented in this encounterNewark Hospital05-17-2022 Miscellaneous Notes* Telephone Encounter - MARIELA Fraser - 07/10/2021 5:14 PM EDT Behavioral Health Social Work Progress Note Patient identified for [facility] from: PCP (Dr Cannon) Reason for referral: [facility] Behavioral Health Resources: Psychology - talk therapy (Reactive depression,Anxiety state) [facility] encounter type: Telephone Encounter Attempts to Outreach: 4 attempts Referral made: Psychology - Internal Psychology-Internal referral type: (sched bh assessment for 07-11-21 at 9am virtual) Final Disposition: Care established with (sched bh assessment for 07-11-21 at 9am virtual) Patient Discharged?: Yes Patient reported that caregiver was able to meet their needs today?: Yes [facility] received a vm from Pt -wanting to schedule an appt *consult had been taken by [facility]'s coworker -therefore this is the first contact with Pt [facility] returned call -scheduled bh assessment for 07-11-21 at 9am virtual MARIELA Fraser July 10, 2021 documented in this encounterNewark Hospital05-17-2022 Miscellaneous Notes* Telephone Encounter - LISSY Moran - 07/10/2021 1:32 PM EDT Behavioral Health Social Work Progress Note Patient identified for [facility] from: PCP Reason for referral: [facility] Behavioral Health Resources: Psychology - talk therapy [facility] encounter type: Telephone Encounter Attempts to Outreach: 1 attempt Referral made: Psychology - Internal;Psychology - External Psychology-Internal referral type: Therapy Psychology-External referral type: Therapy Reason for external referral: Patient choice;Wait times at [facility] too long Final Disposition: Resources given Patient Discharged?: Yes Patient reported that caregiver was able to meet their needs today?: Yes SW made a second attempt at reaching patient by phone, as she did not return the first phone call or read her OpenPlacement message. Pt stated she does not use her [employer]t. Pt looking for virtual visits and was provided with the following referrals via phone: [facility] [address] [place] [address] [address] [facility] [place] [address] [place] [address] DEBRA Moran July 10, 2021 documented in this encounterNewark Hospital05-16-2022 Miscellaneous Notes* Telephone Encounter - Leeann Wilson LPN - 07/09/2021 10:02 AM EDT Message to call office. * Telephone Encounter - Anh Hazel LPN - 07/03/2021 2:11 PM EDT Patient returned call and asked status of message. Went over notes from Lydia North [employer] with understanding. Aware rx to pharmacy. She is willing to do consult. Phoned crisis manager and asked how to set up appt with Willy Upton, she said he is on vacation back in office 07/11 and gave me phone nu,lucinda [phone]. Went over information with patient and aware note is being sent to Willy Upton. He should be calling her when he returns to the office. Forwarding chart to Willy Upton. * Telephone Encounter - Lydia North APRN.CNS - 07/02/2021 1:19 PM EDT Discussed with PCP. Recommends addition of Wellbutrin once daily to help stabilize mood. Refer to behavioral health if willing/interested.- order placed. * Telephone Encounter - Lili Cummings RN - 07/02/2021 9:44 AM EDT Pt called in and reports she is on Sertraline for depression, and it is not working. She reports she is in a bad way. She states, "I have the best 3 boys in the world and I didn't want to do anythingon Mother's Day. I didn't want to eat, nothing.". 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 Pt is at work right now. She denies any intention to harm herself or others. She reports she has a co-worker she can talk to and she called her technical specialist cytogenetics this morning. Tried to give her 24 hour crisis lines to the [facility], but she states they have those numbers atwhere she works. Pt states she had a recent phone visit with provider about her depression and her m edications. Please call and advise. documented in this encounterNewark Hospital05-12-2022 History of Present illness Narrative* Erica Cannon MD - 07/05/2021 4:28 PM EDT VIRTUAL VISIT PROGRESS NOTE This is a virtual visit using OpenPlacement video visit. It required patient-provider interaction for themedical decision making as documented below. Meggan Arita is a 60 year old female seen for knee pain. So very depressed. Cannot get it together. 2 ulcers--are healing. Legs are extremely swollen and getting bigger. Has been watching what she eats. Not sure what to do about the weight. Worries that would not make through bariatric surgery. Gets frustrated, Just wants to drop 15 to 20 pounds and get motivated and get going with it. Thinks the depression keeps her from losing weight. Frustrated with work. Needs walker. In bed when gets home. Feels like going to fall. Ankle and knees are so bad. Does not want to be on a walker at 60yo. Kids are sad to see her crying. She thinks they think she is not trying. Feels like not normal and not me. Wants to be happy and go to store. Has not been able to go to store for 20 years. Wants to go down the steps. Tired of living in fear. Sits for 12 hours at work. Back of legs are tender. Not open wound sore so needs addressed by PCP, not [facility]. Going to wound clinic now. Will get new chair at work. Has allergie and cold symptoms now. Negative for COVID. Taking zaroxolyn a couple times a week. Noted that ulcers are healing. States that they debride the wounds and apply a bandaid. States that has to buy their own wound care dressings. Able to wrap well. Okay with her to get Venofer if blood counts still low under 9. Getting lots of salads to get iron in. CTS syndrome symptoms. Both hands. Drops things sometimes +Phalen and Tinel's both side. Discussed getting braces from [employer]. HISTORY REVIEWED (electronic chart updated): PAST MEDICAL HISTORY Diagnosis Date Acute gastritis without mention of hemorrhage ALLERGIC RHINITIS NOS 07/15/2007 ANXIETY STATE NOS 12/09/2006 Carpal tunnel syndrome 04/10/2007 Bilateral symptoms with the left worse than the right as of 04-03 CHOLELITH W CHOLECYS NEC 02/07/2005 Lap favio in 03-01 Chronic hepatitis, unspecified (HCC) 03/06/2005 Depression Edema 06/01/2007 Admit 07-08-08 for RLE venous stasis ulcer on Cubicin. Put pt on disability from 08-03-08 to 11-24-08 Esophageal reflux GENERAL OSTEOARTHROSIS 10/29/2006 Headache(784.0) 01/20/2007 [facility] 12-26: consid Sjogren's, CT chest/MRI head/HYUN/KEO/OSMANY/ANCA/SSA/SSB neg Again reinforced the need to start CPAP on 03-04-07: unable to afford as of 04-03 for insurance issues INSOMNIA NOS 07/31/2007 IRON DEFIC ANEMIA NOS 01/20/2007 Colon 03-22-02 ([facility]): no polyps, masses or AVMs Lactose intolerance Low blood potassium 10/20/2014 Low magnesium level 07/08/2016 Morbid obesity (HCC) Obesity, unspecified Obstructive sleep apnea Other dyspnea and respiratory abnormality Primary osteoarthritis of both knees 03/08/2020 severe narrowing of the medial joint space with marginal osteophytes--x-ray knee 2016 SPINAL STENOSIS-LUMBAR 07/09/2007 Stasis edema with ulcer (HCC) 08/02/2013 Type II or unspecified type diabetes mellitus without mention of complication, not stated as uncontrolled 08/05/2007 Unspecified asthma(493.90) Unspecified essential hypertension PAST SURGICAL HISTORY Procedure Laterality Date BIOPSY LIVER NEEDLE PERCUTANEOUS 03/06/05 DELIVERY ONLY 1979 , low cervical DELIVERY ONLY 1980 , low cervical DELIVERY ONLY 1986 , low cervical COLONOSCOPY FLX DX W/COLLJ SPEC WHEN PFRMD 01/30/16 Colonoscopy mac WC outpt EGD TRANSORAL BIOPSY SINGLE/MULTIPLE 07/22/06 ESOPHAGOGASTRODUODENOSCOPY TRANSORAL DIAGNOSTIC 2001 EGD ESOPHAGOGASTRODUODENOSCOPY TRANSORAL DIAGNOSTIC 01/30/16 EGD mac WC outpt IMPLANT MESH OPN HERNIA RPR/DEBRIDEMENT CLOSURE 03/06/05 LAPAROSCOPY SURG RPR INITIAL INGUINAL HERNIA 03/06/05 LAPS SURG CHOLECYSTECTOMY W/CHOLANGIOGRAPHY 03/06/05 LIG/TRNSXJ FLP TUBE ABDL/VAG APPR UNI/BI 1986 Tubal ligation OPTX ANKLE DISLOCATION W/REPAIR/INT/XTRNL FIXJ ORIF Ankle FAMILY HISTORY Problem Relation Age of Onset other (CVA) Father Heart Mother Diabetes Mother Social History Tobacco Use Smoking status: Never Smoker Smokeless tobacco: Never Used Tobacco comment: Father smoked in childhood home . ETS exposure in current home. Substance Use Topics Alcohol use: No Drug use: No Current Outpatient Medications Medication Sig sertraline (ZOLOFT) 100 mg tablet Take 1.5 tablets by mouth once daily. LORazepam (ATIVAN) 1 mg tablet Take half to 1 whole tablet daily as needed buPROPion XL (WELLBUTRIN XL) 150 mg 24 hr tablet Take 1 tablet by mouth once daily. cyclobenzaprine (FLEXERIL) 5 mg tablet Take 1 tablet by mouth three times daily as needed. oxaprozin (DAYPRO) 600 mg tablet Take 1-2 tablets by mouth once daily. as needed for knee pain. metOLazone (ZAROXOLYN) 5 mg tablet take 1 tablet by mouth 30 MINUTES PRIOR TO TAKING LASIX IF NEEDED FOR INCREASED SWELLING DIRECTED mupirocin (BACTROBAN) 2 % cream Use up to three times a day. Location: left inner thigh emollient combination no.114 (EUCERIN ADVANCED REPAIR) crea Apply 1 application to affected area once daily. insulin degludec (TRESIBA FLEXTOUCH U-200) 200 unit/mL (3 mL) injection Inject 95 Units subcutaneously daily at bedtime. albuterol (PROVENTIL) 2.5 mg /3 mL (0.083 %) nebulizer solution inhale contents of one vial in nebulizer every 6 hours if needed for wheezing and shortness of breath ipratropium (ATROVENT) 0.02 % nebulizer solution Use 2.5 mL via nebulizer four times daily as needed (wheezing). Use over 5-15minutes. Use in addition to albuterol nebulizer. benzonatate (TESSALON PERLES) 100 mg capsule Take 1 capsule by mouth three times daily as needed for cough. topiramate (TOPAMAX) 50 mg tablet Take 1 tablet by mouth daily at bedtime. pantoprazole DR (PROTONIX) 40 mg tablet Take 1 tablet by mouth twice daily before meals (0600/1600). Take this dose for one month, then return to daily dosing. gabapentin (NEURONTIN) 100 mg capsule Take 2 capsules by mouth daily at bedtime for 180 days. magnesium oxide (MAG-OX) 400 mg (241.3 mg magnesium) tablet Take 1 tablet by mouth twice daily. iron polysaccharide complex (FERREX-150) 150 mg iron capsule Take 1 capsule by mouth twice daily. mometasone-formoterol (DULERA) 200-5 mcg/actuation inhaler Inhale 2 Puffs as instructed twice daily. furosemide (LASIX) 40 mg tablet Take 2 tablets by mouth twice daily. ketoconazole (NIZORAL) 2 % cream apply to affected area OF RASH AND SURROUNDING AREA UNDER BREAST once daily blood sugar diagnostic (BLOOD GLUCOSE TEST) test strip Test blood sugar(s) 4 times daily. Dx: Type 2 DM - Uncontrolled E11.65 Insulin: Yes bismuth subsalicylate (PEPTO-BISMOL) 262 mg chew Take 2 tablets by mouth four times daily. docusate sodium (COLACE) 100 mg capsule Take 2 capsules by mouth DAILY AT 6 PM. CPAP AutoPAP 5-12 CM H2O with humidification. Mask (per patient preference) optional chin strap (ifindicated) , filters, tubing, humidifier and lifetime supplies. potassium chloride ER (K-DUR, KLOR-CON) 20 mEq tablet Take 2 tablets by mouth three times daily. losartan (COZAAR) 100 mg tablet Take 1 tablet by mouth once daily. montelukast (SINGULAIR) 10 mg tablet Take 1 tablet by mouth daily at bedtime. ipratropium bromide (ATROVENT) 42 mcg (0.06 %) nasal spray Use 2 Sprays in each nostril four times daily. cetirizine (ZYRTEC) 10 mg tablet Take 1 tablet by mouth once daily. For allergies. Can take at night if causes sedation, Miscellaneous Medical Supply Order: Overnight pulse ox on 4LPM Diagnosis: R09.02 (checking if needsO2 increased at night) dulaglutide (TRULICITY) 1.5 mg/0.5 mL Inject 1.5 mg subcutaneously one time a week. Start after 4 weeks on 0.75mg/0.5ml ondansetron (ZOFRAN) 4 mg tablet Take 1 tablet by mouth every 8 hours as needed. mometasone (NASONEX) 50 mcg/actuation nasal spray Use 2 Sprays in the nose once daily. For allergies. Rinse mouth after use. insulin needles, DISPOSABLE, (BD INSULIN PEN NEEDLE UF) 31 gauge x 5/16" USE FOUR DAILY DIRECTEDwith Toujeo and Humalog albuterol HFA (PROVENTIL HFA, VENTOLIN HFA) 90 mcg/actuation inhaler Inhale 2 Puffs as instructed every 4 hours as needed. May give preferred namebrand (per formulary and/or patient preference) Ferrous Gluconate 240 mg (27 mg iron) tablet Take 1 tablet by mouth once daily. As directed fluticasone (FLONASE) 50 mcg/actuation nasal spray Use 2 Sprays in each nostril once daily as needed. Blood Pressure Monitor (BLOOD PRESSURE KIT) kit For home use Dx: labile blood pressure loratadine (CLARITIN) 10 mg tablet Take 1 tablet by mouth once daily. Blood-Glucose Meter (FREESTYLE FREEDOM LITE) monitoring kit 1 Each as needed. polyethylene glycol 3350 (MIRALAX) 17 gram/dose powder 2 scoop in liquid daily as needed for bowel movement atorvastatin (LIPITOR) 40 mg tablet Take 1 tablet by mouth once daily. blood sugar diagnostic (FREESTYLE LITE STRIPS) test strip Test blood sugar(s) 3x daily. Dx: E11.65 Insulin: Yes COMPOUNDED PRESCRIPTION TENS Unit 4 lead. Use as directed. Needs refills for leads 1 per month as needed Dispense 1 with 5 refills. (M48.06) Spinal stenosis, lumbar region, without neurogenic claudication Nebulizer NEBULIZER FOR HOME USE. DX: (J45.20) Mild intermittent asthma without complication No current facility-administered medications for this visit. ALLERGIES Allergen Reactions Ciprofloxacin Diarrhea Nausea and diarrhea Buspar [Buspirone H* Other: See Comments Insomnia Carafate [Sucralfat* tightens up chest unable to swallow Celebrex [Celecoxib] Other: See Comments tachycardia, heart palpitations Cheratussin Itching Codeine GI Upset sick to her stomach but able to tolerate in Tylenol with codeine #3 Doxycycline Intolerance, Vomiting Iodine difficulty breathing, swelling, hives Latex difficulty breathing and swelling Levaquin [Levofloxa* GI Upset Meloxicam Rash pruritic rash within hours of taking med Penicillins Swelling, Shortness of Breath Prednisone Mental Status Change Vicodin [Hydrocodon* Itching swelling REVIEW OF SYSTEMS: As noted in HPI PHYSICAL EXAMINATION: VIDEO EXAM: (if completed, performed via video enabled technology) GENERAL: alert and appropriate, in no distress, well-hydrated, well nourished, appears tired, appears anxious, overweight and tearful at the beginning of the appointment but at the end was smiling and in a positive mind set HEAD: normocephalic, no abnormality or lesion noted EYES: no injection and visual acuity is grossly normal RESPIRATORY: breathing non-labored + Phalen's and + Tinel's bilaterally ASSESSMENT/PLAN:ASSESSMENT/PLAN: 1. Morbid obesity (HCC) - ICD9: 278.01, ICD10: E66.01 (primary diagnosis) States donna weight has not gone down with efforts - Behavioral intervention Discussed maklng healthy changes that she can stick with and be successful at one at a time. Will cut back from 20 ounce to 12 ounce pop once per day then after that can see if she go fewer days per week. Will try veggies and protein for 3 days and avoid other carbs for 3 days then after that see if canlimit carbs. Focus on getting carbs and protein in her diet first. Also focus on positive thoughts instead of worrying about being embarrassed about her appearance and need to use walker and need for help. Thankful journal for 30 days (5 new entries every day). Work on depression so that not using food to treat depression. 2. Current moderate episode of major depressive disorder, unspecified whether recurrent (HCC) - ICD9: 296.22, ICD10: F32.1 Emotional support given. Encouraged to discuss options for counseling with SW, etc. Stay on current meds for now. Further evaluation and treatment as indicated. 3. Bilateral leg edema - ICD9: 782.3, ICD10: R60.0 Water pills as discussed. Also wraps. Keep working with [facility] to help heal the ulcers. Sensitive areas from how legs press again the chair when she is sitting for 12 hours a day should improve with new chair they are buying for her at work. Encouraged to focus on the fact that they value her at work so much that they bought her a new chair. - FUROSEMIDE 40 MG TABLET - METOLAZONE 5 MG TABLET 4. Bilateral carpal tunnel syndrome - ICD9: 354.0, ICD10: G56.03 Will try wrist splints first. Referral to ortho as needed. 5. Iron deficiency anemia, unspecified iron deficiency anemia type - ICD9: 280.9, ICD10: D50.9 If still low, would pursue venofer infusions since anemia could be contributing to fatigue, leg swelling, and even depressed feeling since so tired. Also contribute to prolonged healing time for ulcers on legs. - VITAMIN B12 BLOOD - IRON + TIBC - FOLATE SERUM - FERRITIN BLD 6. Allergic rhinitis, unspecified seasonality, unspecified trigger - ICD9: 477.9, ICD10: J30.9 Add nasal steroid. Resume Singulair. Further evaluation and treatment as indicated. - FLUTICASONE PROPIONATE 50 MCG/ACTUATION NASAL SPRAY,SUSPENSION - MONTELUKAST 10 MG TABLET 7. Primary hypertension - ICD9: 401.9, ICD10: I10 - good control - Continue current medication(s) - Recommended regular aerobic exercise. - Recommend home blood pressure monitoring, to bring results in on next visit - Further evaluation and treatment as indicated. - Goal of BP <130/80 - LOSARTAN 100 MG TABLET - COMP METABOLIC PANEL - CBC 8. Type 2 diabetes (HCC) - ICD9: 250.00, ICD10: E11.9 Controlled. - Continue current medications - Needs to keep working on diet and exercise with lifestyle changes for effective weight loss as well as control of DM, and control of BP and lipids. - COMP METABOLIC PANEL - HGB A1C 9. Upper abdominal pain - ICD9: 789.09, ICD10: R10.10 - Stay on PPI - PANTOPRAZOLE 40 MG TABLET,DELAYED RELEASE 10. Encounter for long-term current use of medication - ICD9: V58.69, ICD10: Z79.899 - COMP METABOLIC PANEL - CBC - MAGNESIUM BLD 11,12,13. Chronic knee pain, knee arthritis and spinal stenosis--noted increased pain since has gained weight. Will keep up efforts at losing weight to help get pain better. She will work with ortho.Pain management as needed. Focus on healthy lifestyle changes that will help with weight loss so can become more active. Noted depression due to being embarrassed that at her age she needs a walker, she needs to depend on others for help, she has been tearful and depression, and she feels like she has tried hard without success at losing weight, etc. Eating because she is depressed. Encouraged to focus on the good things that have been going on, like Ramone is making her lunches so she does not have to get fast food. Work is getting new chair. Family is supportive. She will consider counseling. She will let me know if needs to be seen sooner than 3 months. Erica Cannon MD documented in this encounterNewark Hospital05-11-2022 Miscellaneous Notes* Telephone Encounter - Nanci Dorado LPN - 07/04/2021 2:42 PM EDT Patient has been identified by name and date of : Yes Patient phones for refill(s): Pending Prescriptions Disp Refills SERTRALINE 100 MG TABLET 45 tablet 5 Sig: Take 1.5 tablets by mouth once daily. SAIRA: No Date of last office visit in primary care: 04/30/21 next apt 07/05/21 Last 2 Encounter Wt Readings: Date: Wt: 04/30/2021 0 kg () 06/19/2020 205.9 kg (454 lb) Previous labs/tests for medication: Not applicable Please advise. Thank you. Nanci Dorado LPN documented in this encounterNewark Hospital05-11-2022 Miscellaneous Notes* Telephone Encounter - Nanci Dorado LPN - 07/04/2021 2:27 PM EDT Spoke to pt and office nurse Abby galvaning for tomorrow 07-05-21. Nanci Dorado LPN * Telephone Encounter - Erica Cannon MD - 07/04/2021 12:54 AM EDT Needs follow up rescheduled (I think there may have been issues wit h virtual visit connection if Itan behind). The following approved medication requests have been transmitted electronically. Signed Prescriptions Disp Refills LORazepam (ATIVAN) 1 mg tablet 24 tablet 0 Sig: Take half to 1 whole tablet daily as needed ODILIA Class: C-IV SAIRA: No Authorizing Provider: ERICA CANNON MD * Telephone Encounter - Anh Hazel LPN - 07/03/2021 2:16 PM EDT Patient has been identified by name and date of : Yes Patient phones for refill(s): Pending Prescriptions Disp Refills LORAZEPAM 1 MG TABLET 24 tablet 0 Sig: Take half to 1 whole tablet daily as needed ODILIA Class: C-IV SAIRA: No Date of last office visit in primary care: 05/14/2021, no future appt scheduled Last 2 Encounter Wt Readings: Date: Wt: 04/30/2021 0 kg () 06/19/2020 205.9 kg (454 lb) Previous labs/tests for medication: Not applicable Please advise. Thank you. Anh Hazel LPN documented in this encounterNewark Hospital05-10-2022 Miscellaneous Notes* Telephone Encounter - LISSY Moran - 07/03/2021 12:18 PM EDT Behavioral Health Social Work Progress Note Patient identified for [facility] from: PCP Reason for referral: Resources Behavioral Health Resources: Psychology - talk therapy [facility] encounter type: Telephone Encounter Attempts to Outreach: 1 attempt Referral made: Psychology - Internal;Psychology - External Psychology-Internal referral type: Therapy Psychology-External referral type: Therapy Reason for external referral: Patient choice;Wait times at [facility] too long Final Disposition: Unable to reach Patient Discharged?: No Patient reported that caregiver was able to meet their needs today?: N/A Phone call placed today that went to air. Initial outreach also completed via [employer] sending list of in network providers with insurance. These include: [facility] [address] [place] [address] *counseling [facility] [address] [facility] [address] *[facility] [address] [place] [phone] *counseling [facility] [address] [place], [place] [phone] *counseling and psychiatry [address] [address] *counseling [address] [address] *counseling [facility] [phone] *counseling [place] [facility] [address] [place], [place] [address] *counseling [facility] [address] [place], [place] [address] [facility] [address], [address] [place] [address] *counseling [facility] [address] [place], [place] [phone] [facility] [address], [place] [address] *counseling [facility] [address] [facility] [address] [place], [place] [phone] [facility] [address] [facility] [place] [address] [place] [address] *counseling [facility] [address] [place] [address] *counseling [facility] [address] [place] [address] *counseling and psychiatry [facility], [address] [place], [place] [address] *psychiatry DEBRA Moran July 03, 2021 documented in this encounterNewark Hospital04-22-2022 Miscellaneous Notes* Telephone Encounter - Nanci Dorado LPN - 06/15/2021 12:32 PM EDT Patient has been identified by name and date of : Yes Patient phones for refill(s): Pending Prescriptions Disp Refills CYCLOBENZAPRINE 5 MG TABLET 30 tablet 1 Sig: Take 1 tablet by mouth three times daily as needed. SAIRA: No Date of last office visit in primary care: 05/14/21 Last 2 Encounter Wt Readings: Date: Wt: 04/30/2021 0 kg () 06/19/2020 205.9 kg (454 lb) Previous labs/tests for medication: Not applicable . Thank you. Nanci Dorado LPN documented in this encounterNewark Hospital04-07-2022 Miscellaneous Notes* Telephone Encounter - Lili Cummings RN - 05/31/2021 12:54 PM EDT Pt called and is notified of providers results and instructions. Pt voices understanding. Sent Pt through to scheduling to make appointments. Lili Cummings RN * Telephone Encounter - Lydia North APRN.TRANSCRIPTION TYPIST - 05/31/2021 12:47 PM EDT She has an x-ray ordered for her right knee would recommend completing that. She also has consults for Ortho and PT. Would recommend these as well. Please schedule. She has oxaprozin or Daypro on her med list, would she like a refill of that? [facility] * Telephone Encounter - Daphne Ochoa LPN - 05/30/2021 2:05 PM EDT Patient calling, states that he right knee pain is getting worse. States that she is having troublegetting up and down the steps and when she lays in bed she is barely able to straighten her leg. She has been taking Aleve, Tylenol Arthritis, and Tramadol. None of those medications are giving her any relief. Asking what PCP would recommend. Please advise. documented in this encounterNewark Hospital04-06-2022 Miscellaneous Notes* Telephone Encounter - Deirdre Jacob LPN - 05/30/2021 3:11 PM EDT Pt states she is having more leg swelling & is requesting refill. RIC: 05/14/21 NOV: None scheduled Last Refill: 04/28/21 #12 1 refill Deirdre Jacob LPN documented in this encounterNewark Hospital03-21-2022 Instructions* Patient Instructions* Erica Cannon MD - 05/14/2021 6:23 PM EDT Decrease sertraline (Zoloft) to 100 mg (one tablet) daily Start Lexapro (escitalopram) at 10 mg ( half of 20 mg tablet) After 1 week, can decrease the Zoloft half pill once daily and increase to Lexapro 20 mg daily/ After another week, can stop Zoloft. Try Lunesta for sleep. Let me know if helping or not. [facility] History of Present illness Narrative* Erica Cannon MD - 05/14/2021 5:00 PM EDT AMBULATORY TELEPHONE VISIT Meggan Arita has consented to this telephone encounter. Persons Present: patient This is a virtual visit using Audio only. Not able to do virtual visit if not at work. It required patient-provider interaction for the medical decision making as documented below. .tele Meggan Arita is a 60 year old female seen for depression--does not feel like pills are really working. Sitting up and crying Talks about feeling embarrassed tat needs help at work and at home. Not sleeping well at all--started 5 to 6 months ago. Able to work okay--stays stressful but no change. Zoloft and lorazepam not really helping. Ambien made her feel weird. Made her feel crazy and feel funny during the day. Trazodone caused side effects--did not help her relax; rev'ed her up and caused diizziness. Going to [facility] for ulcers on legs. Ulcers are starting to heal. Not able to take vacation since no paid vacation time. Has to pay for own insurance and hard to make ends meet. Son trying to work with her to figure out bills. Using a walker but knees hurt every day anyway. Works at [employer] and [employer]. Feel depressed because embarrassed that needs help at work because ofher weight and difficulty with walking and standing. . Ongoing knee pain issues. Wobbles. Cannot walk without walker. Sugar contributes to weight problems. HISTORY REVIEWED (electronic chart updated): PAST MEDICAL HISTORY Diagnosis Date Acute gastritis without mention of hemorrhage ALLERGIC RHINITIS NOS 07/15/2007 ANXIETY STATE NOS 12/09/2006 Carpal tunnel syndrome 04/10/2007 Bilateral symptoms with the left worse than the right as of 2-08 CHOLELITH W CHOLECYS NEC 02/07/2005 Lap favio in 1-06 Chronic hepatitis, unspecified (HCC) 03/06/2005 Depression Edema 06/01/2007 Admit 07-08-08 for RLE venous stasis ulcer on Cubicin. Put pt on disability from 08-03-08 to 11-24-08 Esophageal reflux GENERAL OSTEOARTHROSIS 10/29/2006 Headache(784.0) 01/20/2007 [facility] 12-26: consid Sjogren's, CT chest/MRI head/HYUN/KEO/OSMANY/ANCA/SSA/SSB neg Again reinforced the need to start CPAP on 03-04-07: unable to afford as of 04-03 for insurance issues INSOMNIA NOS 07/31/2007 IRON DEFIC ANEMIA NOS 01/20/2007 Colon 03-22-02 ([facility]): no polyps, masses or AVMs Lactose intolerance Low blood potassium 10/20/2014 Low magnesium level 07/08/2016 Morbid obesity (HCC) Obesity, unspecified Obstructive sleep apnea Other dyspnea and respiratory abnormality Primary osteoarthritis of both knees 03/08/2020 severe narrowing of the medial joint space with marginal osteophytes--x-ray knee 2016 SPINAL STENOSIS-LUMBAR 07/09/2007 Stasis edema with ulcer (HCC) 08/02/2013 Type II or unspecified type diabetes mellitus without mention of complication, not stated as uncontrolled 08/05/2007 Unspecified asthma(493.90) Unspecified essential hypertension PAST SURGICAL HISTORY Procedure Laterality Date BIOPSY LIVER NEEDLE PERCUTANEOUS 03/06/05 DELIVERY ONLY 1979 , low cervical DELIVERY ONLY 1980 , low cervical DELIVERY ONLY 1986 , low cervical COLONOSCOPY FLX DX W/COLLJ SPEC WHEN PFRMD 01/30/16 Colonoscopy [facility] outpt EGD TRANSORAL BIOPSY SINGLE/MULTIPLE 07/22/06 ESOPHAGOGASTRODUODENOSCOPY TRANSORAL DIAGNOSTIC 2001 EGD ESOPHAGOGASTRODUODENOSCOPY TRANSORAL DIAGNOSTIC 01/30/16 EGD [facility] outpt IMPLANT MESH OPN HERNIA RPR/DEBRIDEMENT CLOSURE 03/06/05 LAPAROSCOPY SURG RPR INITIAL INGUINAL HERNIA 03/06/05 LAPS SURG CHOLECYSTECTOMY W/CHOLANGIOGRAPHY 03/06/05 LIG/TRNSXJ FLP TUBE ABDL/VAG APPR UNI/BI 1987 Tubal ligation OPTX ANKLE DISLOCATION W/REPAIR/INT/XTRNL FIXJ ORIF Ankle FAMILY HISTORY Problem Relation Age of Onset other (CVA) Father Heart Mother Diabetes Mother Social History Tobacco Use Smoking status: Never Smoker Smokeless tobacco: Never Used Tobacco comment: Father smoked in childhood home . ETS exposure in current home. Substance Use Topics Alcohol use: No Drug use: No Current Outpatient Medications Medication Sig mupirocin (BACTROBAN) 2 % cream Use up to three times a day. Location: left inner thigh metOLazone (ZAROXOLYN) 5 mg tablet take 1 tablet by mouth 30 MINUTES PRIOR TO TAKING LASIX IF NEEDED FOR INCREASED SWELLING DIRECTED emollient combination no.114 (EUCERIN ADVANCED REPAIR) crea Apply 1 application to affected area once daily. insulin degludec (TRESIBA FLEXTOUCH U-200) 200 unit/mL (3 mL) injection Inject 95 Units subcutaneously daily at bedtime. albuterol (PROVENTIL) 2.5 mg /3 mL (0.083 %) nebulizer solution inhale contents of one vial in nebulizer every 6 hours if needed for wheezing and shortness of breath LORazepam (ATIVAN) 1 mg tablet Take half to 1 whole tablet daily as needed ipratropium (ATROVENT) 0.02 % nebulizer solution Use 2.5 mL via nebulizer four times daily as needed (wheezing). Use over 5-15minutes. Use in addition to albuterol nebulizer. benzonatate (TESSALON PERLES) 100 mg capsule Take 1 capsule by mouth three times daily as needed for cough. oxaprozin (DAYPRO) 600 mg tablet Take 1-2 tablets by mouth once daily. topiramate (TOPAMAX) 50 mg tablet Take 1 tablet by mouth daily at bedtime. pantoprazole DR (PROTONIX) 40 mg tablet Take 1 tablet by mouth twice daily before meals (0600/1600). Take this dose for one month, then return to daily dosing. sertraline (ZOLOFT) 100 mg tablet Take 1.5 tablets by mouth once daily. gabapentin (NEURONTIN) 100 mg capsule Take 2 capsules by mouth daily at bedtime for 180 days. magnesium oxide (MAG-OX) 400 mg (241.3 mg magnesium) tablet Take 1 tablet by mouth twice daily. iron polysaccharide complex (FERREX-150) 150 mg iron capsule Take 1 capsule by mouth twice daily. cyclobenzaprine (FLEXERIL) 5 mg tablet Take 1 tablet by mouth three times daily as needed. mometasone-formoterol (DULERA) 200-5 mcg/actuation inhaler Inhale 2 Puffs as instructed twice daily. furosemide (LASIX) 40 mg tablet Take 2 tablets by mouth twice daily. ketoconazole (NIZORAL) 2 % cream apply to affected area OF RASH AND SURROUNDING AREA UNDER BREAST once daily blood sugar diagnostic (BLOOD GLUCOSE TEST) test strip Test blood sugar(s) 4 times daily. Dx: Type 2 DM - Uncontrolled E11.65 Insulin: Yes bismuth subsalicylate (PEPTO-BISMOL) 262 mg chew Take 2 tablets by mouth four times daily. docusate sodium (COLACE) 100 mg capsule Take 2 capsules by mouth DAILY AT 6 PM. CPAP AutoPAP 5-12 CM H2O with humidification. Mask (per patient preference) optional chin strap (ifindicated) , filters, tubing, humidifier and lifetime supplies. potassium chloride ER (K-DUR, KLOR-CON) 20 mEq tablet Take 2 tablets by mouth three times daily. losartan (COZAAR) 100 mg tablet Take 1 tablet by mouth once daily. montelukast (SINGULAIR) 10 mg tablet Take 1 tablet by mouth daily at bedtime. ipratropium bromide (ATROVENT) 42 mcg (0.06 %) nasal spray Use 2 Sprays in each nostril four times daily. cetirizine (ZYRTEC) 10 mg tablet Take 1 tablet by mouth once daily. For allergies. Can take at night if causes sedation, Miscellaneous Medical Supply Order: Overnight pulse ox on 4LPM Diagnosis: R09.02 (checking if needsO2 increased at night) dulaglutide (TRULICITY) 1.5 mg/0.5 mL Inject 1.5 mg subcutaneously one time a week. Start after 4 weeks on 0.75mg/0.5ml ondansetron (ZOFRAN) 4 mg tablet Take 1 tablet by mouth every 8 hours as needed. mometasone (NASONEX) 50 mcg/actuation nasal spray Use 2 Sprays in the nose once daily. For allergies. Rinse mouth after use. insulin needles, DISPOSABLE, (BD INSULIN PEN NEEDLE UF) 31 gauge x 5/16" USE FOUR DAILY DIRECTEDwith Toujeo and Humalog albuterol HFA (PROVENTIL HFA, VENTOLIN HFA) 90 mcg/actuation inhaler Inhale 2 Puffs as instructed every 4 hours as needed. May give preferred namebrand (per formulary and/or patient preference) Ferrous Gluconate 240 mg (27 mg iron) tablet Take 1 tablet by mouth once daily. As directed fluticasone (FLONASE) 50 mcg/actuation nasal spray Use 2 Sprays in each nostril once daily as needed. Blood Pressure Monitor (BLOOD PRESSURE KIT) kit For home use Dx: labile blood pressure loratadine (CLARITIN) 10 mg tablet Take 1 tablet by mouth once daily. Blood-Glucose Meter (FREESTYLE FREEDOM LITE) monitoring kit 1 Each as needed. polyethylene glycol 3350 (MIRALAX) 17 gram/dose powder 2 scoop in liquid daily as needed for bowel movement atorvastatin (LIPITOR) 40 mg tablet Take 1 tablet by mouth once daily. blood sugar diagnostic (FREESTYLE LITE STRIPS) test strip Test blood sugar(s) 3x daily. Dx: E11.65 Insulin: Yes COMPOUNDED PRESCRIPTION TENS Unit 4 lead. Use as directed. Needs refills for leads 1 per month as needed Dispense 1 with 5 refills. (M48.06) Spinal stenosis, lumbar region, without neurogenic claudication Nebulizer NEBULIZER FOR HOME USE. DX: (J45.20) Mild intermittent asthma without complication No current facility-administered medications for this visit. ALLERGIES Allergen Reactions Ciprofloxacin Diarrhea Nausea and diarrhea Buspar [Buspirone H* Other: See Comments Insomnia Carafate [Sucralfat* tightens up chest unable to swallow Celebrex [Celecoxib] Other: See Comments tachycardia, heart palpitations Cheratussin Itching Codeine GI Upset sick to her stomach but able to tolerate in Tylenol with codeine #3 Doxycycline Intolerance, Vomiting Iodine difficulty breathing, swelling, hives Latex difficulty breathing and swelling Levaquin [Levofloxa* GI Upset Meloxicam Rash pruritic rash within hours of taking med Penicillins Swelling, Shortness of Breath Prednisone Mental Status Change Vicodin [Hydrocodon* Itching swelling REVIEW OF SYSTEMS: As noted in HPI PHYSICAL EXAMINATION: VIDEO EXAM: (if completed, performed via video enabled technology) No exam performed Component Latest Ref Rng & Units 09/05/2020 04/30/2021 Protein, Total 6.3 - 8.0 g/dL 8.5 (H) 8.8 (H) Albumin 3.9 - 4.9 g/dL 4.0 3.9 Calcium 8.5 - 10.2 mg/dL 9.4 9.3 Bilirubin, Total 0.2 - 1.3 mg/dL 0.8 0.5 Alkaline Phosphatase 34 - 123 U/L 148 (H) 133 (H) AST 13 - 35 U/L 25 20 Glucose 74 - 99 mg/dL 119 (H) 128 (H) BUN 7 - 21 mg/dL 12 14 Creatinine 0.58 - 0.96 mg/dL 0.68 0.80 Sodium 136 - 144 mmol/L 138 139 Potassium 3.7 - 5.1 mmol/L 3.4 (L) 3.7 Chloride 97 - 105 mmol/L 91 (L) 94 (L) CO2 22 - 30 mmol/L 34 (H) 38 (H) Anion Gap 9 - 18 mmol/L 13 7 (L) ALT 7 - 38 U/L 13 10 eGFR- >60 eGFR-All Other Races . >60 eGFR >=60 mL/min/1.73m 84 WBC 3.70 - 11.00 k/uL 8.40 9.50 RBC 3.90 - 5.20 m/uL 3.84 (L) 3.81 (L) Hemoglobin 11.5 - 15.5 g/dL 8.2 (L) 8.5 (L) Hematocrit 36.0 - 46.0 % 31.9 (L) 32.9 (L) MCV 80.0 - 100.0 fL 83.1 86.4 MCH 26.0 - 34.0 pg 21.4 (L) 22.3 (L) MCHC 30.5 - 36.0 g/dL 25.7 (L) 25.8 (L) RDW-CV 11.5 - 15.0 % 18.7 (H) 16.5 (H) Platelet Count 150 - 400 k/uL 374 356 MPV 9.0 - 12.7 fL 10.7 10.4 Absolute nRBC <0.01 k/uL <0.01 <0.01 Cholesterol, Total <200 mg/dL 151 Triglyceride <150 mg/dL 54 HDL Cholesterol >39 mg/dL 50 Non HDL Cholesterol <130 mg/dL 101 Fasting Time hrs 4 VLDL Cholesterol <30 mg/dL 11 TC:HDL Ratio <5.10 3.02 LDL Cholesterol <100 mg/dL 90 LDL:HDL Ratio <2.54 1.80 Hemoglobin A1C 4.3 - 5.6 % 6.9 (H) 7.2 (H) Estimated Average Glucose mg/dL 151 160 Magnesium 1.7 - 2.3 mg/dL 1.6 (L) 1.8 ASSESSMENT/PLAN: 1. Insomnia, unspecified type - ICD9: 780.52, ICD10: G47.00 (primary diagnosis) Work on sleep hygiene an justin sutton Diogenes. Further evaluation and treatment as indicated. - ESZOPICLONE 2 MG TABLET 2. Current moderate episode of major depressive disorder, unspecified whether recurrent (HCC) - ICD9: 296.22, ICD10: F32.1 Emotional support given. Encouraged to think about the good things going on in her life instead of focusing on the barriers.Work on differentt stress relievers than food. Note that where she works is willing to help get ergonomic set-up for her work space. 3. Primary osteoarthritis of both knees - ICD9: 715.16, ICD10: M17.0 Aware that would not be a candidate for knee replacement until gets BMI<40. Encouraged to make 4. Anxiety state - ICD9: 300.00, ICD10: F41.1 Stable with control of anxiety with as needed lorazepam. At this time benefits outweigh risks. Continue to monitor for adverse effects and indications for decreasing dose or tapering off. No signs ofdiversion or abuse of medication(s); no adverse effects. Continue present management. - LORAZEPAM 1 MG TABLET 5. Morbid obesity (HCC) - ICD9: 278.01, ICD10: E66.01 Ongoing difficulty losing weight. - Behavioral intervention - Needs to keep working on diet and exercise with lifestyle changes for effective weight loss as well as control of DM, and control of BP and lipids. 6. Type 2 diabetes (HCC) - ICD9: 250.00, ICD10: E11.9 Due for labs. Had been controlled. - Continue current medications - Further evaluation and treatment as indicated. 7. Iron deficiency anemia, unspecified iron deficiency anemia type - ICD9: 280.9, ICD10: D50.9 There are no Patient Instructions on file for this visit. It was necessary to convert the virtual visit to a telephone encounter due to technical difficulties.Patient has to be at work to do VV. Erica Cannon MD documented [facility] this [facility] Miscellaneous Notes* Telephone Encounter - Chayito SYLVESTER - 11/15/2020 11:17 AM EDT Left message for patient to call our office back to schedule with PCP/[facility]EW[facility] and complete labs. Chayito SYLVESTER * Telephone Encounter - Jennifer Arguelles Cma - 11/01/2020 5:20 PM EDT Patient no showed appointment today. PSS please assist patient with scheduling. Thank you. * Telephone Encounter - Erica Cannon MD - 10/25/2020 6:25 PM EDT PDMP reviewed Has follow up Labs ordered --issues including anemia; since taking pain med and lorazepam frequently over the past year, need to follow [facility] [place] protocol and check tox screens; Would do when in for appointment this month. Make sure have Controlled substance agreement on file The following approved medication requests have been transmitted electronically. Signed Prescriptions Disp Refills LORazepam (ATIVAN) 1 mg tablet 24 tablet 0 Sig: Take half to 1 whole tablet daily as needed ODILIA Class: C-IV SAIRA: No Authorizing Provider: ERICA CANNON traMADol (ULTRAM) 50 mg tablet 42 tablet 0 Sig: Take 1-2 tablets by mouth every 8 hours as needed for pain for up to 7 days. ODILIA Class: C-IV SAIRA: No Authorizing Provider: ERICA CANNON MD * Telephone Encounter - Shant Boyle RN - 10/24/2020 12:57 PM EDT Patient has been identified by name and date of : Yes Patient phones for refill(s): Pending Prescriptions Disp Refills LORAZEPAM 1 MG TABLET 24 tablet 0 Sig: Take half to 1 whole tablet daily as needed ODILIA Class: C-IV SAIRA: No TRAMADOL 50 MG TABLET 42 tablet 0 Sig: Take 1-2 tablets by mouth every 8 hours as needed for pain for up to 7 days. ODILIA Class: C-IV SAIRA: No Date of last office visit with pcp: 08-14-20. Next appt: none Date of last office visit in primary care: Next appt: 11-01-20 Last 2 Encounter Wt Readings: Date: Wt: 06/19/2020 205.9 kg (454 lb) 02/14/2019 199.7 kg (440 lb 3.2 oz) Previous labs/tests for medication: Blood Counts: WBC (k/uL) Date Value 09/05/2020 8.40 RBC (m/uL) Date Value 09/05/2020 3.84 Hematocrit (%) Date Value 09/05/2020 31.9 Hemoglobin (g/dL) Date Value 09/05/2020 8.2 Platelet Count (k/uL) Date Value 09/05/2020 374 Liver Function: ALT (U/L) Date Value 09/05/2020 13 AST (U/L) Date Value 09/05/2020 25 Please advise. Thank you. Shant Boyle RN documented in this encounter[facility] History of Past illness Narrative* Problem Noted Date Resolved Date MORBID OBESITY 06/30/2014 Overview: TSH 1.43 in 04-02 Augmentin for LLE cellulitis in 08-01 at [facility]: LLE US negative for a DVT Down to 391 pounds as of 08-24-07 BNP 26 in 09-01 for dyspnea documented as of this encounter (statuses as of 05/30/2021) [facility] of Past illness Narrative* Problem Noted Date Resolved Date MORBID OBESITY 06/30/2014 Overview: TSH 1.43 in 04-02 Augmentin for LLE cellulitis in 08-01 at [facility]: LLE US negative for a DVT Down to 391 pounds as of 08-24-07 BNP 26 in 09-01 for dyspnea documented as of this encounter (statuses as of 05/31/2021) [facility] of [facility] illness Narrative* Problem Noted Date Resolved Date MORBID OBESITY 06/30/2014 Overview: TSH 1.43 in 2- Augmentin for LLE cellulitis in 08-01 at [facility]: LLE US negative for a DVT Down to 391 pounds as of 08-24-07 BNP 26 in - for dyspnea documented as of this encounter (statuses as of 06/15/2021) [facility] of [facility] illness Narrative* Problem Noted Date Resolved Date MORBID OBESITY 06/30/2014 Overview: TSH 1.43 in - Augmentin for LLE cellulitis in 08-01 at [facility]: LLE US negative for a DVT Down to 391 pounds as of 08-24-07 BNP 26 in 09-01 for dyspnea documented as of this encounter (statuses as of 06/15/2021) [facility] of [facility] illness Narrative* Problem Noted Date Resolved Date MORBID OBESITY 06/30/2014 Overview: TSH 1.43 in - Augmentin for LLE cellulitis in 08-01 at [facility]: LLE US negative for a DVT Down to 391 pounds as of 08-24-07 BNP 26 in 09-01 for dyspnea documented as of this encounter (statuses as of 07/03/2021) [facility] illness Narrative* Problem Noted Date Resolved Date MORBID OBESITY 06/30/2014 Overview: TSH 1.43 in - Augmentin for LLE cellulitis in 08-01 at [facility]: LLE US negative for a DVT Down to 391 pounds as of 08-24-07 BNP 26 in 09-01 for dyspnea documented as of this encounter (statuses as of 07/04/2021) [facility] of [facility] illness Narrative* Problem Noted Date Resolved Date MORBID OBESITY 06/30/2014 Overview: TSH 1.43 in - Augmentin for LLE cellulitis in 08-01 at [facility]: LLE US negative for a DVT Down to 391 pounds as of 08-24-07 BNP 26 in 7-09 for dyspnea documented as of this encounter (statuses as of 07/05/2021) [facility] illness Narrative* Problem Noted Date Resolved Date MORBID OBESITY 06/30/2014 Overview: TSH 1.43 in 2- Augmentin for LLE cellulitis in 08-01 at [facility]: LLE US negative for a DVT Down to 391 pounds as of 08-24-07 BNP 26 in 09-01 for dyspnea documented as of this encounter (statuses as of 07/05/2021) [facility] of [facility] illness Narrative* Problem Noted Date Resolved Date MORBID OBESITY 06/30/2014 Overview: TSH 1.43 in 2- Augmentin for LLE cellulitis in 08-01 at [facility]: LLE US negative for a DVT Down to 391 pounds as of 08-24-07 BNP 26 in 09-01 for dyspnea documented as of this encounter (statuses as of 07/10/2021) [facility] illness Narrative* Problem Noted Date Resolved Date MORBID OBESITY 06/30/2014 Overview: TSH 1.43 in - Augmentin for LLE cellulitis in 08-01 at [facility]: LLE US negative for a DVT Down to 391 pounds as of 08-24-07 BNP 26 in 09-01 for dyspnea documented as of this encounter (statuses as of 07/11/2021) [facility] illness Narrative* Problem Noted Date Resolved Date MORBID OBESITY 06/30/2014 Overview: TSH 1.43 in 2- Augmentin for LLE cellulitis in 08-01 at [facility]: LLE US negative for a DVT Down to 391 pounds as of 08-24-07 BNP 26 in 09-01 for dyspnea documented as of this encounter (statuses as of 07/17/2021) [facility] Narrative* Problem Noted Date Resolved Date MORBID OBESITY 06/30/2014 Overview: TSH 1.43 in 2- Augmentin for LLE cellulitis in 08-01 at [facility]: LLE US negative for a DVT Down to 391 pounds as of 08-24-07 BNP 26 in - for dyspnea documented as of this encounter (statuses as of 07/24/2021) [facility] of [facility] illness Narrative* Problem Noted Date Resolved Date MORBID OBESITY 06/30/2014 Overview: TSH 1.43 in 04-02 Augmentin for LLE cellulitis in 08-01 at [facility]: LLE US negative for a DVT Down to 391 pounds as of 08-24-07 BNP 26 in 09-01 for dyspnea documented as of this encounter (statuses as of 07/25/2021) [facility] Narrative* Problem Noted Date Resolved Date MORBID OBESITY 06/30/2014 Overview: TSH 1.43 in 04-02 Augmentin for LLE cellulitis in 08-01 at [facility]: LLE US negative for a DVT Down to 391 pounds as of 08-24-07 BNP 26 in 09-01 for dyspnea documented as of this encounter (statuses as of 07/26/2021) [facility] Narrative* Problem Noted Date Resolved Date MORBID OBESITY 06/30/2014 Overview: TSH 1.43 in - Augmentin for LLE cellulitis in 08-01 at [facility]: LLE US negative for a DVT Down to 391 pounds as of 08-24-07 BNP 26 in - for dyspnea documented as of this encounter (statuses as of 07/28/2021) [facility] Narrative* Problem Noted Date Resolved Date MORBID OBESITY 06/30/2014 Overview: TSH 1.43 in - Augmentin for LLE cellulitis in 08-01 at [facility]: LLE US negative for a DVT Down to 391 pounds as of 08-24-07 BNP 26 in - for dyspnea documented as of this encounter (statuses as of 08/01/2021) [facility] illness Narrative* Problem Noted Date Resolved Date MORBID OBESITY 06/30/2014 Overview: TSH 1.43 in 2- Augmentin for LLE cellulitis in 08-01 at [facility]: LLE US negative for a DVT Down to 391 pounds as of 08-24-07 BNP 26 in 09-01 for dyspnea documented as of this encounter (statuses as of 08/05/2021) [facility] Narrative* Problem Noted Date Resolved Date MORBID OBESITY 06/30/2014 Overview: TSH 1.43 in - Augmentin for LLE cellulitis in 08-01 at [facility]: LLE US negative for a DVT Down to 391 pounds as of 08-24-07 BNP 26 in 09-01 for dyspnea documented as of this encounter (statuses as of 08/06/2021) [facility] Narrative* Problem Noted Date Resolved Date MORBID OBESITY 06/30/2014 Overview: TSH 1.43 in 2- Augmentin for LLE cellulitis in 08-01 at [facility]: LLE US negative for a DVT Down to 391 pounds as of 08-24-07 BNP 26 in 09-01 for dyspnea documented as of this encounter (statuses as of 08/13/2021) [facility] Narrative* Problem Noted Date Resolved Date MORBID OBESITY 06/30/2014 Overview: TSH 1.43 in 2- Augmentin for LLE cellulitis in 08-01 at [facility]: LLE US negative for a DVT Down to 391 pounds as of 08-24-07 BNP 26 in 09-01 for dyspnea documented as of this encounter (statuses as of 08/15/2021) [facility] Narrative* Problem Noted Date Resolved Date MORBID OBESITY 06/30/2014 Overview: TSH 1.43 in 2- Augmentin for LLE cellulitis in 08-01 at [facility]: LLE US negative for a DVT Down to 391 pounds as of 08-24-07 BNP 26 in 7- for dyspnea documented as of this encounter (statuses as of 08/23/2021) [facility] Narrative* Problem Noted Date Resolved Date MORBID OBESITY 06/30/2014 Overview: TSH 1.43 in 2- Augmentin for LLE cellulitis in 08-01 at [facility]: LLE US negative for a DVT Down to 391 pounds as of 08-24-07 BNP 26 in 7- for dyspnea documented as of this encounter (statuses as of 08/27/2021) [facility] Narrative* Problem Noted Date Resolved Date MORBID OBESITY 06/30/2014 Overview: TSH 1.43 in - Augmentin for LLE cellulitis in 08-01 at [facility]: LLE US negative for a DVT Down to 391 pounds as of 08-24-07 BNP 26 in 09-01 for dyspnea documented as of this encounter (statuses as of 10/17/2021) [facility] Narrative* Problem Noted Date Resolved Date MORBID OBESITY 06/30/2014 Overview: TSH 1.43 in 2- Augmentin for LLE cellulitis in 08-01 at [facility]: LLE US negative for a DVT Down to 391 pounds as of 08-24-07 BNP 26 in - for dyspnea documented as of this encounter (statuses as of 02/06/2022) [facility]-07-2015 History of Past illness Narrative* Problem Noted Date Resolved Date MORBID OBESITY 06/30/2014 Overview: TSH 1.43 in 2- Augmentin for LLE cellulitis in 08-01 at [facility]: LLE US negative for a DVT Down to 391 pounds as of 08-24-07 BNP 26 in 7- for dyspnea documented as of this encounter (statuses as of 02/07/2022) [facility]2015 History of Past illness Narrative* Problem Noted Date Resolved Date MORBID OBESITY 06/30/2014 Overview: TSH 1.43 in 2- Augmentin for LLE cellulitis in 08-01 at [facility]: LLE US negative for a DVT Down to 391 pounds as of 08-24-07 BNP 26 in 7- for dyspnea documented as of this encounter (statuses as of 02/07/2022) [facility]2015 History of Past illness Narrative* Problem Noted Date Resolved Date MORBID OBESITY 06/30/2014 Overview: TSH 1.43 in - Augmentin for LLE cellulitis in 08-01 at [facility]: LLE US negative for a DVT Down to 391 pounds as of 08-24-07 BNP 26 in 7- for dyspnea documented as of this encounter (statuses as of 02/11/2022) [facility]2015 History of Past illness Narrative* Problem Noted Date Resolved Date MORBID OBESITY 06/30/2014 Overview: TSH 1.43 in 04-02 Augmentin for LLE cellulitis in 08-01 at [facility]: LLE US negative for a DVT Down to 391 pounds as of 08-24-07 BNP 26 in 09-01 for dyspnea documented as of this encounter (statuses as of 02/15/2022) [facility]2015 History of Past illness Narrative* Problem Noted Date Resolved Date MORBID OBESITY 06/30/2014 Overview: TSH 1.43 in - Augmentin for LLE cellulitis in 08-01 at [facility]: LLE US negative for a DVT Down to 391 pounds as of 08-24-07 BNP 26 in 7- for dyspnea documented as of this encounter (statuses as of 02/17/2022) [facility]2015 History of Past illness Narrative* Problem Noted Date Resolved Date MORBID OBESITY 06/30/2014 Overview: TSH 1.43 in - Augmentin for LLE cellulitis in 08-01 at [facility]: LLE US negative for a DVT Down to 391 pounds as of 08-24-07 BNP 26 in 7-09 for dyspnea documented as of this encounter (statuses as of 02/23/2022) [facility]2015 History of Past illness Narrative* Problem Noted Date Resolved Date MORBID OBESITY 06/30/2014 Overview: TSH 1.43 in 2-07 Augmentin for LLE cellulitis in 08-01 at [facility]: LLE US negative for a DVT Down to 391 pounds as of 08-24-07 BNP 26 in 7- for dyspnea documented as of this encounter (statuses as of 02/25/2022) [facility]2015 History of Past illness Narrative* Problem Noted Date Resolved Date MORBID OBESITY 06/30/2014 Overview: TSH 1.43 in - Augmentin for LLE cellulitis in 08-01 at [facility]: LLE US negative for a DVT Down to 391 pounds as of 08-24-07 BNP 26 in 09-01 for dyspnea documented as of this encounter (statuses as of 02/27/2022) [facility]2015 History of Past illness Narrative* Problem Noted Date Resolved Date MORBID OBESITY 06/30/2014 Overview: TSH 1.43 in - Augmentin for LLE cellulitis in 08-01 at [facility]: LLE US negative for a DVT Down to 391 pounds as of 08-24-07 BNP 26 in - for dyspnea documented as of this encounter (statuses as of 02/28/2022) [facility]2015 History of Past illness Narrative* Problem Noted Date Resolved Date MORBID OBESITY 06/30/2014 Overview: TSH 1.43 in - Augmentin for LLE cellulitis in 08-01 at [facility]: LLE US negative for a DVT Down to 391 pounds as of 08-24-07 BNP 26 in - for dyspnea documented as of this encounter (statuses as of 02/28/2022) [facility]2015 History of Past illness Narrative* Problem Noted Date Resolved Date MORBID OBESITY 06/30/2014 Overview: TSH 1.43 in 2- Augmentin for LLE cellulitis in 08-01 at [facility]: LLE US negative for a DVT Down to 391 pounds as of 08-24-07 BNP 26 in 7- for dyspnea documented as of this encounter (statuses as of 03/01/2022) [facility]2015 History of Past illness Narrative* Problem Noted Date Resolved Date MORBID OBESITY 06/30/2014 Overview: TSH 1.43 in 2-07 Augmentin for LLE cellulitis in 08-01 at [facility]: LLE US negative for a DVT Down to 391 pounds as of 08-24-07 BNP 26 in 7- for dyspnea documented as of this encounter (statuses as of 03/01/2022) [facility]2015 History of Past illness Narrative* Problem Noted Date Resolved Date MORBID OBESITY 06/30/2014 Overview: TSH 1.43 in 2- Augmentin for LLE cellulitis in 08-01 at [facility]: LLE US negative for a DVT Down to 391 pounds as of 08-24-07 BNP 26 in 09-01 for dyspnea documented as of this encounter (statuses as of 03/01/2022) [facility]2015 History of Past illness Narrative* Problem Noted Date Resolved Date MORBID OBESITY 06/30/2014 Overview: TSH 1.43 in 2-07 Augmentin for LLE cellulitis in 08-01 at [facility]: LLE US negative for a DVT Down to 391 pounds as of 08-24-07 BNP 26 in - for dyspnea documented as of this encounter (statuses as of 03/01/2022) [facility]2015 History of Past illness Narrative* Problem Noted Date Resolved Date MORBID OBESITY 06/30/2014 Overview: TSH 1.43 in 2- Augmentin for LLE cellulitis in 08-01 at [facility]: LLE US negative for a DVT Down to 391 pounds as of 08-24-07 BNP 26 in 7- for dyspnea documented as of this encounter (statuses as of 03/01/2022) [facility]2015 History of Past illness Narrative* Problem Noted Date Resolved Date MORBID OBESITY 06/30/2014 Overview: TSH 1.43 in 2- Augmentin for LLE cellulitis in 08-01 at [facility]: LLE US negative for a DVT Down to 391 pounds as of 08-24-07 BNP 26 in 09-01 for dyspnea documented as of this encounter (statuses as of 03/04/2022) [facility]2015 History of Past illness Narrative* Problem Noted Date Resolved Date MORBID OBESITY 06/30/2014 Overview: TSH 1.43 in - Augmentin for LLE cellulitis in 08-01 at [facility]: LLE US negative for a DVT Down to 391 pounds as of 08-24-07 BNP 26 in 09-01 for dyspnea documented as of this encounter (statuses as of 03/04/2022) [facility]2015 History of Past illness Narrative* Problem Noted Date Resolved Date MORBID OBESITY 06/30/2014 Overview: TSH 1.43 in - Augmentin for LLE cellulitis in 08-01 at [facility]: LLE US negative for a DVT Down to 391 pounds as of 08-24-07 BNP 26 in 09-01 for dyspnea documented as of this encounter (statuses as of 03/12/2022) [facility]2015 History of Past illness Narrative* Problem Noted Date Resolved Date MORBID OBESITY 06/30/2014 Overview: TSH 1.43 in - Augmentin for LLE cellulitis in 08-01 at [facility]: LLE US negative for a DVT Down to 391 pounds as of 08-24-07 BNP 26 in 09-01 for dyspnea documented as of this encounter (statuses as of 03/12/2022) [facility]2015 History of Past illness Narrative* Problem Noted Date Resolved Date MORBID OBESITY 06/30/2014 Overview: TSH 1.43 in 2- Augmentin for LLE cellulitis in - at [facility]: LLE US negative for a DVT Down to 391 pounds as of 08-24-07 BNP 26 in 7- for dyspnea documented as of this encounter (statuses as of 03/14/2022) [facility]2015 History of Past illness Narrative* Problem Noted Date Resolved Date MORBID OBESITY 06/30/2014 Overview: TSH 1.43 in 2-07 Augmentin for LLE cellulitis in 08-01 at [facility]: LLE US negative for a DVT Down to 391 pounds as of 08-24-07 BNP 26 in 7- for dyspnea documented as of this encounter (statuses as of 03/15/2022) [facility]2015 History of Past illness Narrative* Problem Noted Date Resolved Date MORBID OBESITY 06/30/2014 Overview: TSH 1.43 in - Augmentin for LLE cellulitis in 08-01 at [facility]: LLE US negative for a DVT Down to 391 pounds as of 08-24-07 BNP 26 in 09-01 for dyspnea documented as of this encounter (statuses as of 03/21/2022) [facility]2015 History of Past illness Narrative* Problem Noted Date Resolved Date MORBID OBESITY 06/30/2014 Overview: TSH 1.43 in 2- Augmentin for LLE cellulitis in 08-01 at [facility]: LLE US negative for a DVT Down to 391 pounds as of 08-24-07 BNP 26 in - for dyspnea documented as of this encounter (statuses as of 03/25/2022) [facility]2015 History of Past illness Narrative* Problem Noted Date Resolved Date MORBID OBESITY 06/30/2014 Overview: TSH 1.43 in 2- Augmentin for LLE cellulitis in 08-01 at [facility]: LLE US negative for a DVT Down to 391 pounds as of 08-24-07 BNP 26 in - for dyspnea documented as of this encounter (statuses as of 03/26/2022) [facility]2015 History of Past illness Narrative* Problem Noted Date Resolved Date MORBID OBESITY 06/30/2014 Overview: TSH 1.43 in 2- Augmentin for LLE cellulitis in 08-01 at [facility]: LLE US negative for a DVT Down to 391 pounds as of 08-24-07 BNP 26 in 7- for dyspnea documented as of this encounter (statuses as of 03/27/2022) [facility]2015 History of Past illness Narrative* Problem Noted Date Resolved Date MORBID OBESITY 06/30/2014 Overview: TSH 1.43 in - Augmentin for LLE cellulitis in 08-01 at [facility]: LLE US negative for a DVT Down to 391 pounds as of 08-24-07 BNP 26 in - for dyspnea documented as of this encounter (statuses as of 04/02/2022) [facility]2015 History of Past illness Narrative* Problem Noted Date Resolved Date MORBID OBESITY 06/30/2014 Overview: TSH 1.43 in - Augmentin for LLE cellulitis in 08-01 at [facility]: LLE US negative for a DVT Down to 391 pounds as of 08-24-07 BNP 26 in - for dyspnea documented as of this encounter (statuses as of 04/02/2022) [facility]2015 History of Past illness Narrative* Problem Noted Date Resolved Date MORBID OBESITY 06/30/2014 Overview: TSH 1.43 in 2- Augmentin for LLE cellulitis in 08-01 at [facility]: LLE US negative for a DVT Down to 391 pounds as of 08-24-07 BNP 26 in - for dyspnea documented as of this encounter (statuses as of 04/04/2022) [facility]2015 History of Past illness Narrative* Problem Noted Date Resolved Date MORBID OBESITY 06/30/2014 Overview: TSH 1.43 in - Augmentin for LLE cellulitis in 08-01 at [facility]: LLE US negative for a DVT Down to 391 pounds as of 08-24-07 BNP 26 in 7-09 for dyspnea documented as of this encounter (statuses as of 04/09/2022) [facility]2015 History of Past illness Narrative* Problem Noted Date Resolved Date MORBID OBESITY 06/30/2014 Overview: TSH 1.43 in 2-07 Augmentin for LLE cellulitis in 08-01 at [facility]: LLE US negative for a DVT Down to 391 pounds as of 08-24-07 BNP 26 in 7-09 for dyspnea documented as of this encounter (statuses as of 04/09/2022) [facility]2015 History of Past illness Narrative* Problem Noted Date Resolved Date MORBID OBESITY 06/30/2014 Overview: TSH 1.43 in - Augmentin for LLE cellulitis in 08-01 at [facility]: LLE US negative for a DVT Down to 391 pounds as of 08-24-07 BNP 26 in 7- for dyspnea documented as of this encounter (statuses as of 04/09/2022) [facility]2015 History of Past illness Narrative* Problem Noted Date Resolved Date MORBID OBESITY 06/30/2014 Overview: TSH 1.43 in - Augmentin for LLE cellulitis in 08-01 at [facility]: LLE US negative for a DVT Down to 391 pounds as of 08-24-07 BNP 26 in - for dyspnea documented as of this encounter (statuses as of 04/09/2022) [facility]2015 History of Past illness Narrative* Problem Noted Date Resolved Date MORBID OBESITY 06/30/2014 Overview: TSH 1.43 in - Augmentin for LLE cellulitis in 08-01 at [facility]: LLE US negative for a DVT Down to 391 pounds as of 08-24-07 BNP 26 in 7-09 for dyspnea documented as of this encounter (statuses as of 04/10/2022) [facility]2015 History of Past illness Narrative* Problem Noted Date Resolved Date MORBID OBESITY 06/30/2014 Overview: TSH 1.43 in - Augmentin for LLE cellulitis in 08-01 at [facility]: LLE US negative for a DVT Down to 391 pounds as of 08-24-07 BNP 26 in 7- for dyspnea documented as of this encounter (statuses as of 04/17/2022) [facility]2015 History of Past illness Narrative* Problem Noted Date Resolved Date MORBID OBESITY 06/30/2014 Overview: TSH 1.43 in 2-07 Augmentin for LLE cellulitis in 08-01 at [facility]: LLE US negative for a DVT Down to 391 pounds as of 08-24-07 BNP 26 in 7- for dyspnea documented as of this encounter (statuses as of 04/17/2022) [facility]2015 History of Past illness Narrative* Problem Noted Date Resolved Date MORBID OBESITY 06/30/2014 Overview: TSH 1.43 in 2- Augmentin for LLE cellulitis in 08-01 at [facility]: LLE US negative for a DVT Down to 391 pounds as of 08-24-07 BNP 26 in 7- for dyspnea documented as of this encounter (statuses as of 04/24/2022) [facility]2015 History of Past illness Narrative* Problem Noted Date Resolved Date MORBID OBESITY 06/30/2014 Overview: TSH 1.43 in 2- Augmentin for LLE cellulitis in 08-01 at [facility]: LLE US negative for a DVT Down to 391 pounds as of 08-24-07 BNP 26 in 7- for dyspnea documented as of this encounter (statuses as of 04/26/2022) [facility]2015 History of Past illness Narrative* Problem Noted Date Resolved Date MORBID OBESITY 06/30/2014 Overview: TSH 1.43 in 2- Augmentin for LLE cellulitis in 08-01 at [facility]: LLE US negative for a DVT Down to 391 pounds as of 08-24-07 BNP 26 in 7- for dyspnea documented as of this encounter (statuses as of 05/03/2022) [facility]2015 History of Past illness Narrative* Problem Noted Date Resolved Date MORBID OBESITY 06/30/2014 Overview: TSH 1.43 in 2- Augmentin for LLE cellulitis in 08-01 at [facility]: LLE US negative for a DVT Down to 391 pounds as of 08-24-07 BNP 26 in 7- for dyspnea documented as of this encounter (statuses as of 05/07/2022) [facility] History of Past illness Narrative* Problem Noted Date Resolved Date MORBID OBESITY 06/30/2014 Overview: TSH 1.43 in - Augmentin for LLE cellulitis in 08-01 at [facility]: LLE US negative for a DVT Down to 391 pounds as of 08-24-07 BNP 26 in - for dyspnea documented as of this encounter (statuses as of 05/08/2022) [facility] History of Past illness Narrative* Problem Noted Date Resolved Date MORBID OBESITY 06/30/2014 Overview: TSH 1.43 in 04-02 Augmentin for LLE cellulitis in 08-01 at [facility]: LLE US negative for a DVT Down to 391 pounds as of 08-24-07 BNP 26 in 09-01 for dyspnea documented as of this encounter (statuses as of 05/09/2022) [facility] History of Past illness Narrative* Problem Noted Date Resolved Date MORBID OBESITY 06/30/2014 Overview: TSH 1.43 in - Augmentin for LLE cellulitis in 08-01 at [facility]: LLE US negative for a DVT Down to 391 pounds as of 08-24-07 BNP 26 in 7- for dyspnea documented as of this encounter (statuses as of 05/13/2022) [facility] History of Past illness Narrative* Problem Noted Date Resolved Date MORBID OBESITY 06/30/2014 Overview: TSH 1.43 in - Augmentin for LLE cellulitis in 08-01 at [facility]: LLE US negative for a DVT Down to 391 pounds as of 08-24-07 BNP 26 in 7-09 for dyspnea documented as of this encounter (statuses as of 05/15/2022) [facility] History of Past illness Narrative* Problem Noted Date Resolved Date MORBID OBESITY 06/30/2014 Overview: TSH 1.43 in 2- Augmentin for LLE cellulitis in 08-01 at [facility]: LLE US negative for a DVT Down to 391 pounds as of 08-24-07 BNP 26 in 7- for dyspnea documented as of this encounter (statuses as of 05/17/2022) [facility] History of Past illness Narrative* Problem Noted Date Resolved Date MORBID OBESITY 06/30/2014 Overview: TSH 1.43 in - Augmentin for LLE cellulitis in 08-01 at [facility]: LLE US negative for a DVT Down to 391 pounds as of 08-24-07 BNP 26 in 09-01 for dyspnea documented as of this encounter (statuses as of 05/17/2022) [facility] History of Past illness Narrative* Problem Noted Date Resolved Date MORBID OBESITY 06/30/2014 Overview: TSH 1.43 in - Augmentin for LLE cellulitis in 08-01 at [facility]: LLE US negative for a DVT Down to 391 pounds as of 08-24-07 BNP 26 in 09-01 for dyspnea documented as of this encounter (statuses as of 05/21/2022) [facility] History of Past illness Narrative* Problem Noted Date Resolved Date MORBID OBESITY 06/30/2014 Overview: TSH 1.43 in - Augmentin for LLE cellulitis in 08-01 at [facility]: LLE US negative for a DVT Down to 391 pounds as of 08-24-07 BNP 26 in - for dyspnea documented as of this encounter (statuses as of 05/21/2022) [facility] History of Past illness Narrative* Problem Noted Date Resolved Date MORBID OBESITY 06/30/2014 Overview: TSH 1.43 in - Augmentin for LLE cellulitis in 08-01 at [facility]: LLE US negative for a DVT Down to 391 pounds as of 08-24-07 BNP 26 in 7- for dyspnea documented as of this encounter (statuses as of 05/29/2022) [facility] History of Past illness Narrative* Problem Noted Date Resolved Date MORBID OBESITY 06/30/2014 Overview: TSH 1.43 in 2- Augmentin for LLE cellulitis in 08-01 at [facility]: LLE US negative for a DVT Down to 391 pounds as of 08-24-07 BNP 26 in 7- for dyspnea documented as of this encounter (statuses as of 05/31/2022) [facility] History of Past illness Narrative* Problem Noted Date Resolved Date MORBID OBESITY 06/30/2014 Overview: TSH 1.43 in 2- Augmentin for LLE cellulitis in 08-01 at [facility]: LLE US negative for a DVT Down to 391 pounds as of 08-24-07 BNP 26 in 7- for dyspnea documented as of this encounter (statuses as of 05/31/2022) [facility] History of Past illness Narrative* Problem Noted Date Resolved Date MORBID OBESITY 06/30/2014 Overview: TSH 1.43 in 2-07 Augmentin for LLE cellulitis in 08-01 at [facility]: LLE US negative for a DVT Down to 391 pounds as of 08-24-07 BNP 26 in 7- for dyspnea documented as of this encounter (statuses as of 05/31/2022) [facility] History of Past illness Narrative* Problem Noted Date Resolved Date MORBID OBESITY 06/30/2014 Overview: TSH 1.43 in - Augmentin for LLE cellulitis in 08-01 at [facility]: LLE US negative for a DVT Down to 391 pounds as of 08-24-07 BNP 26 in 7-09 for dyspnea documented as of this encounter (statuses as of 06/04/2022) [facility] History of Past illness Narrative* Problem Noted Date Resolved Date MORBID OBESITY 06/30/2014 Overview: TSH 1.43 in 2- Augmentin for LLE cellulitis in 08-01 at [facility]: LLE US negative for a DVT Down to 391 pounds as of 08-24-07 BNP 26 in 7- for dyspnea documented as of this encounter (statuses as of 06/04/2022) [facility] History of Past illness Narrative* Problem Noted Date Resolved Date MORBID OBESITY 06/30/2014 Overview: TSH 1.43 in - Augmentin for LLE cellulitis in 08-01 at [facility]: LLE US negative for a DVT Down to 391 pounds as of 08-24-07 BNP 26 in 09-01 for dyspnea documented as of this encounter (statuses as of 06/08/2022) [facility] History of Past illness Narrative* Problem Noted Date Resolved Date MORBID OBESITY 06/30/2014 Overview: TSH 1.43 in - Augmentin for LLE cellulitis in 08-01 at [facility]: LLE US negative for a DVT Down to 391 pounds as of 08-24-07 BNP 26 in 09-01 for dyspnea documented as of this encounter (statuses as of 06/20/2022) [facility] History of Past illness Narrative* Problem Noted Date Resolved Date MORBID OBESITY 06/30/2014 Overview: TSH 1.43 in - Augmentin for LLE cellulitis in 08-01 at [facility]: LLE US negative for a DVT Down to 391 pounds as of 08-24-07 BNP 26 in 7- for dyspnea documented as of this encounter (statuses as of 06/25/2022) [facility] History of Past illness Narrative* Problem Noted Date Resolved Date MORBID OBESITY 06/30/2014 Overview: TSH 1.43 in - Augmentin for LLE cellulitis in - at [facility]: LLE US negative for a DVT Down to 391 pounds as of 08-24-07 BNP 26 in 7- for dyspnea documented as of this encounter (statuses as of 06/27/2022) [facility] History of Past illness Narrative* Problem Noted Date Resolved Date MORBID OBESITY 06/30/2014 Overview: TSH 1.43 in 2-07 Augmentin for LLE cellulitis in 08-01 at [facility]: LLE US negative for a DVT Down to 391 pounds as of 08-24-07 BNP 26 in 09-01 for dyspnea documented as of this encounter (statuses as of 06/27/2022) [facility] History of Past illness Narrative* Problem Noted Date Resolved Date MORBID OBESITY 06/30/2014 Overview: TSH 1.43 in - Augmentin for LLE cellulitis in 08-01 at [facility]: LLE US negative for a DVT Down to 391 pounds as of 08-24-07 BNP 26 in 09-01 for dyspnea documented as of this encounter (statuses as of 06/28/2022) [facility] History of Past illness Narrative* Problem Noted Date Resolved Date MORBID OBESITY 06/30/2014 Overview: TSH 1.43 in 2- Augmentin for LLE cellulitis in 08-01 at [facility]: LLE US negative for a DVT Down to 391 pounds as of 08-24-07 BNP 26 in - for dyspnea documented as of this encounter (statuses as of 07/06/2022) [facility] History of Past illness Narrative* Problem Noted Date Resolved Date MORBID OBESITY 06/30/2014 Overview: TSH 1.43 in 2- Augmentin for LLE cellulitis in 08-01 at [facility]: LLE US negative for a DVT Down to 391 pounds as of 08-24-07 BNP 26 in - for dyspnea documented as of this encounter (statuses as of 07/25/2022) [facility] History of Past illness Narrative* Problem Noted Date Resolved Date MORBID OBESITY 06/30/2014 Overview: TSH 1.43 in 2- Augmentin for LLE cellulitis in 08-01 at [facility]: LLE US negative for a DVT Down to 391 pounds as of 08-24-07 BNP 26 in - for dyspnea documented as of this encounter (statuses as of 07/29/2022) [facility] History of Past illness Narrative* Problem Noted Date Resolved Date MORBID OBESITY 06/30/2014 Overview: TSH 1.43 in - Augmentin for LLE cellulitis in 08-01 at [facility]: LLE US negative for a DVT Down to 391 pounds as of 08-24-07 BNP 26 in 09-01 for dyspnea documented as of this encounter (statuses as of 08/01/2022) [facility] History of Past illness Narrative* Problem Noted Date Resolved Date MORBID OBESITY 06/30/2014 Overview: TSH 1.43 in - Augmentin for LLE cellulitis in 08-01 at [facility]: LLE US negative for a DVT Down to 391 pounds as of 08-24-07 BNP 26 in 09-01 for dyspnea documented as of this encounter (statuses as of 08/07/2022) [facility] History of Past illness Narrative* Problem Noted Date Resolved Date MORBID OBESITY 06/30/2014 Overview: TSH 1.43 in 2-07 Augmentin for LLE cellulitis in 08-01 at [facility]: LLE US negative for a DVT Down to 391 pounds as of 08-24-07 BNP 26 in 09-01 for dyspnea documented as of this encounter (statuses as of 08/12/2022) [facility] History of Past illness Narrative* Problem Noted Date Resolved Date MORBID OBESITY 06/30/2014 Overview: TSH 1.43 in 2- Augmentin for LLE cellulitis in 08-01 at [facility]: LLE US negative for a DVT Down to 391 pounds as of 08-24-07 BNP 26 in - for dyspnea documented as of this encounter (statuses as of 08/13/2022) [facility] History of Past illness Narrative* Problem Noted Date Resolved Date MORBID OBESITY 06/30/2014 Overview: TSH 1.43 in 2- Augmentin for LLE cellulitis in 08-01 at [facility]: LLE US negative for a DVT Down to 391 pounds as of 08-24-07 BNP 26 in - for dyspnea documented as of this encounter (statuses as of 08/23/2022) [facility] [facility] Past illness Narrative* Problem Noted Date Resolved Date MORBID OBESITY 06/30/2014 Overview: TSH 1.43 in - Augmentin for LLE cellulitis in 08-01 at [facility]: LLE US negative for a DVT Down to 391 pounds as of 08-24-07 BNP 26 in 09-01 for dyspnea documented as of this encounter (statuses as of 08/23/2022) [facility]05-07[facility]2015 History of Past illness Narrative* Problem Noted Date Resolved Date MORBID OBESITY 06/30/2014 Overview: TSH 1.43 in - Augmentin for LLE cellulitis in 08-01 at [facility]: LLE US negative for a DVT Down to 391 pounds as of 08-24-07 BNP 26 in 09-01 for dyspnea documented as of this encounter (statuses as of 08/24/2022) [facility]05-[facility] History of Past illness Narrative* Problem Noted Date Resolved Date MORBID OBESITY 06/30/2014 Overview: TSH 1.43 in - Augmentin for LLE cellulitis in 08-01 at [facility]: LLE US negative for a DVT Down to 391 pounds as of 08-24-07 BNP 26 in 09-01 for dyspnea documented as of this encounter (statuses as of 08/27/2022) [facility]05-07[facility] History of Past illness Narrative* Problem Noted Date Diagnosed Date Resolved Date MORBID OBESITY 06/30/2014 Overview: TSH 1.43 in - Augmentin for LLE cellulitis in 08-01 at [facility]: LLE US negative for a DVT Down to 391 pounds as of 08-24-07 BNP 26 in 09-01 for dyspnea documented as of this encounter (statuses as of 09/01/2022) [facility]05-07[facility] History of Past illness Narrative* Problem Noted Date Diagnosed Date Resolved Date MORBID OBESITY 06/30/2014 Overview: TSH 1.43 in 2- Augmentin for LLE cellulitis in 08-01 at [facility]: LLE US negative for a DVT Down to 391 pounds as of 08-24-07 BNP 26 in 09-01 for dyspnea documented as of this encounter (statuses as of 09/02/2022) [facility]05-[facility] History of Past illness Narrative* Problem Noted Date Diagnosed Date Resolved Date MORBID OBESITY 06/30/2014 Overview: TSH 1.43 in 2- Augmentin for LLE cellulitis in 08-01 at [facility]: LLE US negative for a DVT Down to 391 pounds as of 08-24-07 BNP 26 in 09-01 for dyspnea documented as of this encounter (statuses as of 09/04/2022) [facility] History of Past illness Narrative* Problem Noted Date Diagnosed Date Resolved Date MORBID OBESITY 06/30/2014 Overview: TSH 1.43 in 2- Augmentin for LLE cellulitis in 08-01 at [facility]: LLE US negative for a DVT Down to 391 pounds as of 08-24-07 BNP 26 in 09-01 for dyspnea documented as of this encounter (statuses as of 09/05/2022) [facility]05-[facility] History of Past illness Narrative* Problem Noted Date Diagnosed Date Resolved Date MORBID OBESITY 06/30/2014 Overview: TSH 1.43 in 2- Augmentin for LLE cellulitis in 08-01 at [facility]: LLE US negative for a DVT Down to 391 pounds as of 08-24-07 BNP 26 in 09-01 for dyspnea documented as of this encounter (statuses as of 09/06/2022) [facility]05-[facility] History of Past illness Narrative* Problem Noted Date Diagnosed Date Resolved Date MORBID OBESITY 06/30/2014 Overview: TSH 1.43 in - Augmentin for LLE cellulitis in 08-01 at [facility]: LLE US negative for a DVT Down to 391 pounds as of 08-24-07 BNP 26 in 09-01 for dyspnea documented as of this encounter (statuses as of 09/06/2022) [facility]05-[facility] History of Past illness Narrative* Problem Noted Date Diagnosed Date Resolved Date MORBID OBESITY 06/30/2014 Overview: TSH 1.43 in - Augmentin for LLE cellulitis in 08-01 at [facility]: LLE US negative for a DVT Down to 391 pounds as of 08-24-07 BNP 26 in 09-01 for dyspnea documented as of this encounter (statuses as of 09/19/2022) [facility]05-[facility] History of Past illness Narrative* Problem Noted Date Diagnosed Date Resolved Date MORBID OBESITY 06/30/2014 Overview: TSH 1.43 in - Augmentin for LLE cellulitis in 08-01 at [facility]: LLE US negative for a DVT Down to 391 pounds as of 08-24-07 BNP 26 in 09-01 for dyspnea documented as of this encounter (statuses as of 09/20/2022) [facility] History of Past illness Narrative* Problem Noted Date Diagnosed Date Resolved Date MORBID OBESITY 06/30/2014 Overview: TSH 1.43 in - Augmentin for LLE cellulitis in 08-01 at [facility]: LLE US negative for a DVT Down to 391 pounds as of 08-24-07 BNP 26 in 09-01 for dyspnea documented as of this encounter (statuses as of 09/23/2022) [facility] History of Past illness Narrative* Problem Noted Date Diagnosed Date Resolved Date MORBID OBESITY 06/30/2014 Overview: TSH 1.43 in - Augmentin for LLE cellulitis in 08-01 at [facility]: LLE US negative for a DVT Down to 391 pounds as of 08-24-07 BNP 26 in 09-01 for dyspnea documented as of this encounter (statuses as of 09/23/2022) [facility] History of Past illness Narrative* Problem Noted Date Diagnosed Date Resolved Date MORBID OBESITY 06/30/2014 Overview: TSH 1.43 in 2- Augmentin for LLE cellulitis in 08-01 at [facility]: LLE US negative for a DVT Down to 391 pounds as of 08-24-07 BNP 26 in 09-01 for dyspnea documented as of this encounter (statuses as of 09/25/2022) [facility] History of Past illness Narrative* Problem Noted Date Diagnosed Date Resolved Date MORBID OBESITY 06/30/2014 Overview: TSH 1.43 in 2- Augmentin for LLE cellulitis in 08-01 at [facility]: LLE US negative for a DVT Down to 391 pounds as of 08-24-07 BNP 26 in 09-01 for dyspnea documented as of this encounter (statuses as of 10/05/2022) [facility] History of Past illness Narrative* Problem Noted Date Diagnosed Date Resolved Date MORBID OBESITY 06/30/2014 Overview: TSH 1.43 in 2- Augmentin for LLE cellulitis in 08-01 at [facility]: LLE US negative for a DVT Down to 391 pounds as of 08-24-07 BNP 26 in 09-01 for dyspnea documented as of this encounter (statuses as of 10/24/2022) [facility]05-[facility] History of Past illness Narrative* Problem Noted Date Diagnosed Date Resolved Date MORBID OBESITY 06/30/2014 Overview: TSH 1.43 in 2- Augmentin for LLE cellulitis in - at [facility]: LLE US negative for a DVT Down to 391 pounds as of 08-24-07 BNP 26 in - for dyspnea documented as of this encounter (statuses as of 10/26/2022) [facility]05-[facility] History of Past illness Narrative* Problem Noted Date Diagnosed Date Resolved Date MORBID OBESITY 06/30/2014 Overview: TSH 1.43 in 2- Augmentin for LLE cellulitis in 08-01 at [facility]: LLE US negative for a DVT Down to 391 pounds as of 08-24-07 BNP 26 in 09-01 for dyspnea documented as of this encounter (statuses as of 11/02/2022) [facility] History of Past illness Narrative* Problem Noted Date Diagnosed Date Resolved Date MORBID OBESITY 06/30/2014 Overview: TSH 1.43 in - Augmentin for LLE cellulitis in 08-01 at [facility]: LLE US negative for a DVT Down to 391 pounds as of 08-24-07 BNP 26 in 09-01 for dyspnea documented as of this encounter (statuses as of 11/06/2022) [facility] History of Past illness Narrative* Problem Noted Date Diagnosed Date Resolved Date MORBID OBESITY 06/30/2014 Overview: TSH 1.43 in - Augmentin for LLE cellulitis in 08-01 at [facility]: LLE US negative for a DVT Down to 391 pounds as of 08-24-07 BNP 26 in 09-01 for dyspnea documented as of this encounter (statuses as of 11/13/2022) [facility] History of Past illness Narrative* Problem Noted Date Diagnosed Date Resolved Date MORBID OBESITY 06/30/2014 Overview: TSH 1.43 in - Augmentin for LLE cellulitis in 08-01 at [facility]: LLE US negative for a DVT Down to 391 pounds as of 08-24-07 BNP 26 in 09-01 for dyspnea documented as of this encounter (statuses as of 11/16/2022) [facility] History of Past illness Narrative* Problem Noted Date Diagnosed Date Resolved Date MORBID OBESITY 06/30/2014 Overview: TSH 1.43 in - Augmentin for LLE cellulitis in 08-01 at [facility]: LLE US negative for a DVT Down to 391 pounds as of 08-24-07 BNP 26 in 09-01 for dyspnea documented as of this encounter (statuses as of 11/19/2022) [facility] History of Past illness Narrative* Problem Noted Date Diagnosed Date Resolved Date MORBID OBESITY 06/30/2014 Overview: TSH 1.43 in 2-07 Augmentin for LLE cellulitis in 08-01 at [facility]: LLE US negative for a DVT Down to 391 pounds as of 08-24-07 BNP 26 in 09-01 for dyspnea documented as of this encounter (statuses as of 11/20/2022) [facility] History of Past illness Narrative* Problem Noted Date Diagnosed Date Resolved Date MORBID OBESITY 06/30/2014 Overview: TSH 1.43 in - Augmentin for LLE cellulitis in 08-01 at [facility]: LLE US negative for a DVT Down to 391 pounds as of 08-24-07 BNP 26 in 09-01 for dyspnea documented as of this encounter (statuses as of 12/05/2022) [facility] History of Past illness Narrative* Problem Noted Date Diagnosed Date Resolved Date MORBID OBESITY 06/30/2014 Overview: TSH 1.43 in 2- Augmentin for LLE cellulitis in 08-01 at [facility]: LLE US negative for a DVT Down to 391 pounds as of 08-24-07 BNP 26 in 09-01 for dyspnea documented as of this encounter (statuses as of 12/05/2022) [facility] History of Past illness Narrative* Problem Noted Date Diagnosed Date Resolved Date MORBID OBESITY 06/30/2014 Overview: TSH 1.43 in 2- Augmentin for LLE cellulitis in 08-01 at [facility]: LLE US negative for a DVT Down to 391 pounds as of 08-24-07 BNP 26 in 09-01 for dyspnea documented as of this encounter (statuses as of 12/06/2022) [facility] History of Past illness Narrative* Problem Noted Date Diagnosed Date Resolved Date MORBID OBESITY 06/30/2014 Overview: TSH 1.43 in 2- Augmentin for LLE cellulitis in 08-01 at [facility]: LLE US negative for a DVT Down to 391 pounds as of 08-24-07 BNP 26 in - for dyspnea documented as of this encounter (statuses as of 12/06/2022) [facility] History of Past illness Narrative* Problem Noted Date Diagnosed Date Resolved Date MORBID OBESITY 06/30/2014 Overview: TSH 1.43 in 2- Augmentin for LLE cellulitis in 08-01 at [facility]: LLE US negative for a DVT Down to 391 pounds as of 08-24-07 BNP 26 in 09-01 for dyspnea documented as of this encounter (statuses as of 12/31/2022) [facility] History of Past illness Narrative* Problem Noted Date Diagnosed Date Resolved Date MORBID OBESITY 06/30/2014 Overview: TSH 1.43 in - Augmentin for LLE cellulitis in 08-01 at [facility]: LLE US negative for a DVT Down to 391 pounds as of 08-24-07 BNP 26 in 09-01 for dyspnea documented as of this encounter (statuses as of 01/02/2023) [facility] History of Past illness Narrative* Problem Noted Date Diagnosed Date Resolved Date MORBID OBESITY 06/30/2014 Overview: TSH 1.43 in 2- Augmentin for LLE cellulitis in 08-01 at [facility]: LLE US negative for a DVT Down to 391 pounds as of 08-24-07 BNP 26 in - for dyspnea documented as of this encounter (statuses as of 01/14/2023) [facility] History of Past illness Narrative* Problem Noted Date Diagnosed Date Resolved Date MORBID OBESITY 06/30/2014 Overview: TSH 1.43 in 2- Augmentin for LLE cellulitis in 08-01 at [facility]: LLE US negative for a DVT Down to 391 pounds as of 08-24-07 BNP 26 in - for dyspnea documented as of this encounter (statuses as of 01/28/2023) [place] [address]-07-2015 History of Past illness Narrative* Problem Noted Date Diagnosed Date Resolved Date MORBID OBESITY 06/30/2014 Overview: TSH 1.43 in 2- Augmentin for LLE cellulitis in 08-01 at [facility]: LLE US negative for a DVT Down to 391 pounds as of 08-24-07 BNP 26 in 7-09 for dyspnea documented as of this encounter (statuses as of 01/29/2023) [facility]05-[facility] History of Past illness Narrative* Problem Noted Date Diagnosed Date Resolved Date MORBID OBESITY 06/30/2014 Overview: TSH 1.43 in - Augmentin for LLE cellulitis in 08-01 at [facility]: LLE US negative for a DVT Down to 391 pounds as of 08-24-07 BNP 26 in - for dyspnea documented as of this encounter (statuses as of 01/30/2023) [facility] History of Past illness Narrative* Problem Noted Date Diagnosed Date Resolved Date MORBID OBESITY 06/30/2014 Overview: TSH 1.43 in - Augmentin for LLE cellulitis in 08-01 at [facility]: LLE US negative for a DVT Down to 391 pounds as of 08-24-07 BNP 26 in 7-09 for dyspnea documented as of this encounter (statuses as of 04/02/2023) [facility] History of Past illness Narrative* Problem Noted Date Diagnosed Date Resolved Date MORBID OBESITY 06/30/2014 Overview: TSH 1.43 in 2- Augmentin for LLE cellulitis in 08-01 at [facility]: LLE US negative for a DVT Down to 391 pounds as of 08-24-07 BNP 26 in 7-09 for dyspnea documented as of this encounter (statuses as of 04/11/2023) [facility] History of Past illness Narrative* Problem Noted Date Diagnosed Date Resolved Date MORBID OBESITY 06/30/2014 Overview: TSH 1.43 in 2- Augmentin for LLE cellulitis in 08-01 at [facility]: LLE US negative for a DVT Down to 391 pounds as of 08-24-07 BNP 26 in 7-09 for dyspnea documented as of this encounter (statuses as of 04/14/2023) [facility] History of Past illness Narrative* Problem Noted Date Diagnosed Date Resolved Date MORBID OBESITY 06/30/2014 Overview: TSH 1.43 in 2- Augmentin for LLE cellulitis in 08-01 at [facility]: LLE US negative for a DVT Down to 391 pounds as of 08-24-07 BNP 26 in 7- for dyspnea documented as of this encounter (statuses as of 04/16/2023) [facility] History of Past illness Narrative* Problem Noted Date Diagnosed Date Resolved Date MORBID OBESITY 06/30/2014 Overview: TSH 1.43 in 2- Augmentin for LLE cellulitis in 08-01 at [facility]: LLE US negative for a DVT Down to 391 pounds as of 08-24-07 BNP 26 in 7- for dyspnea documented as of this encounter (statuses as of 04/16/2023) [facility] History of Past illness Narrative* Problem Noted Date Diagnosed Date Resolved Date MORBID OBESITY 06/30/2014 Overview: TSH 1.43 in 2- Augmentin for LLE cellulitis in 08-01 at [facility]: LLE US negative for a DVT Down to 391 pounds as of 08-24-07 BNP 26 in 7- for dyspnea documented as of this encounter (statuses as of 04/24/2023) [facility] History of Past illness Narrative* Problem Noted Date Diagnosed Date Resolved Date MORBID OBESITY 06/30/2014 Overview: TSH 1.43 in 2- Augmentin for LLE cellulitis in 08-01 at [facility]: LLE US negative for a DVT Down to 391 pounds as of 08-24-07 BNP 26 in 7-09 for dyspnea documented as of this encounter (statuses as of 04/25/2023) [facility] History of Past illness Narrative* Problem Noted Date Diagnosed Date Resolved Date MORBID OBESITY 06/30/2014 Overview: TSH 1.43 in 2-07 Augmentin for LLE cellulitis in 08-01 at [facility]: LLE US negative for a DVT Down to 391 pounds as of 08-24-07 BNP 26 in - for dyspnea documented as of this encounter (statuses as of 05/05/2023) [facility] History of Past illness Narrative* Problem Noted Date Diagnosed Date Resolved Date MORBID OBESITY 06/30/2014 Overview: TSH 1.43 in - Augmentin for LLE cellulitis in 08-01 at [facility]: LLE US negative for a DVT Down to 391 pounds as of 08-24-07 BNP 26 in 09-01 for dyspnea documented as of this encounter (statuses as of 05/07/2023) [facility] History of Past illness Narrative* Problem Noted Date Diagnosed Date Resolved Date MORBID OBESITY 06/30/2014 Overview: TSH 1.43 in - Augmentin for LLE cellulitis in 08-01 at [facility]: LLE US negative for a DVT Down to 391 pounds as of 08-24-07 BNP 26 in 09-01 for dyspnea documented as of this encounter (statuses as of 05/08/2023) [facility] History of Past illness Narrative* Problem Noted Date Diagnosed Date Resolved Date MORBID OBESITY 06/30/2014 Overview: TSH 1.43 in 2- Augmentin for LLE cellulitis in 08-01 at [facility]: LLE US negative for a DVT Down to 391 pounds as of 08-24-07 BNP 26 in - for dyspnea documented as of this encounter (statuses as of 05/12/2023) [facility] History of Past illness Narrative* Problem Noted Date Diagnosed Date Resolved Date MORBID OBESITY 06/30/2014 Overview: TSH 1.43 in 2- Augmentin for LLE cellulitis in 08-01 at [facility]: LLE US negative for a DVT Down to 391 pounds as of 08-24-07 BNP 26 in 7- for dyspnea documented as of this encounter (statuses as of 05/13/2023) [facility] History of Past illness Narrative* Problem Noted Date Diagnosed Date Resolved Date MORBID OBESITY 06/30/2014 Overview: TSH 1.43 in 2- Augmentin for LLE cellulitis in 08-01 at [facility]: LLE US negative for a DVT Down to 391 pounds as of 08-24-07 BNP 26 in 7- for dyspnea documented as of this encounter (statuses as of 05/14/2023) [facility] History of Past illness Narrative* Problem Noted Date Diagnosed Date Resolved Date MORBID OBESITY 06/30/2014 Overview: TSH 1.43 in - Augmentin for LLE cellulitis in 08-01 at [facility]: LLE US negative for a DVT Down to 391 pounds as of 08-24-07 BNP 26 in 09-01 for dyspnea documented as of this encounter (statuses as of 05/15/2023) [facility] History of Past illness Narrative* Problem Noted Date Diagnosed Date Resolved Date MORBID OBESITY 06/30/2014 Overview: TSH 1.43 in 2- Augmentin for LLE cellulitis in 08-01 at [facility]: LLE US negative for a DVT Down to 391 pounds as of 08-24-07 BNP 26 in 7- for dyspnea documented as of this encounter (statuses as of 05/16/2023) [facility] History of Past illness Narrative* Problem Noted Date Diagnosed Date Resolved Date MORBID OBESITY 06/30/2014 Overview: TSH 1.43 in - Augmentin for LLE cellulitis in 08-01 at [facility]: LLE US negative for a DVT Down to 391 pounds as of 08-24-07 BNP 26 in 7-09 for dyspnea documented as of this encounter (statuses as of 05/19/2023) [facility] History of Past illness Narrative* Problem Noted Date Diagnosed Date Resolved Date MORBID OBESITY 06/30/2014 Overview: TSH 1.43 in 2- Augmentin for LLE cellulitis in 08-01 at [facility]: LLE US negative for a DVT Down to 391 pounds as of 08-24-07 BNP 26 in 7-09 for dyspnea documented as of this encounter (statuses as of 05/19/2023) [facility] History of Past illness Narrative* Problem Noted Date Diagnosed Date Resolved Date MORBID OBESITY 06/30/2014 Overview: TSH 1.43 in - Augmentin for LLE cellulitis in 08-01 at [facility]: LLE US negative for a DVT Down to 391 pounds as of 08-24-07 BNP 26 in 7- for dyspnea documented as of this encounter (statuses as of 05/20/2023) [facility] History of Past illness Narrative* Problem Noted Date Diagnosed Date Resolved Date MORBID OBESITY 06/30/2014 Overview: TSH 1.43 in - Augmentin for LLE cellulitis in 08-01 at [facility]: LLE US negative for a DVT Down to 391 pounds as of 08-24-07 BNP 26 in 7- for dyspnea documented as of this encounter (statuses as of 05/27/2023) [facility] History of Past illness Narrative* Problem Noted Date Diagnosed Date Resolved Date MORBID OBESITY 06/30/2014 Overview: TSH 1.43 in - Augmentin for LLE cellulitis in 08-01 at [facility]: LLE US negative for a DVT Down to 391 pounds as of 08-24-07 BNP 26 in 7-09 for dyspnea documented as of this encounter (statuses as of 06/05/2023) [facility] History of Past illness Narrative* Problem Noted Date Diagnosed Date Resolved Date MORBID OBESITY 06/30/2014 Overview: TSH 1.43 in - Augmentin for LLE cellulitis in 08-01 at [facility]: LLE US negative for a DVT Down to 391 pounds as of 08-24-07 BNP 26 in 09-01 for dyspnea documented as of this encounter (statuses as of 06/05/2023) [facility] Author Dr. Pizarro [facility] August 19, 2022 4:06pm Note Date/Time August 19, 2022 3:28 pm [facility] Medical Records Department [address] [place] [address] Instructions for Home/Discharge Instructions 08/19/22 1525 MR#: [id number] Acct: [id number] Name: MEGGAN ARITA Rep #:[id number] 2 : 1960 61 From: Jim Pizarro DO PCP: Dr. Erica Cannon MD Status:AD M IN Discharge Instructions Diet Discharge Diet: 1800 Calorie Control Diet Activity Discharge Activity: Return to Normal Activity Weight Bearing Status: Full weight bearing Follow Up Care Test Results: Test results from this visit will be discussed in further detail at your follow- up appointment, if applicable. Discharge Plan Admission Admit Date/Time: 08/14/22 21:00 Primary Reason for Your Visit: kidney injury, diarrhea Attending Provider: Jim Pizarro Primary Care Provider: Erica Cannon Consulting Providers: Sam Perez ; Ammy Agarwal ; Lisa Mendoza ; Raysa Knox ; Winter Hamm Instructions Additional Instructions / Restrictions: You may take Imodium 2 every 6 hours as needed for diarrhea, resume your previous insulin coverage per home glucose readings Discharge Orders/Prescriptions Prescriptions: New dicyclomine 10 mg Capsule 20 mg PO TIDAC Qty: 21 0RF potassium chloride [Klor-Con M20] 20 mEq Tablet,Er Particles/Crystals 20 meq PO BIDCM Qty: 14 0RF Continued losartan 50 mg tablet 50 mg PO DAILY fluticasone propionate 50 mcg/actuation spray,suspension 2 spray NASAL DAILY PRN (Reason: Sinus Symptoms) Qty: 16 6RF albuterol sulfate [Ventolin HFA] 90 mcg/actuation HFA aerosol inhaler 2 puff inhalation Q4H PRN (Reason: shortness of breath or wheezing) Qty: 18 6RF albuterol sulfate 2.5 MG/3 ML solution for nebulization 2.5 mg inhalation Q6HWA.RT PRN (Reason: Asthma) Label Comments: ASTHMA acetaminophen [Tylenol] 325 mg Tablet 650 mg PO Q6H PRN PRN (Reason: Pain Score 1-10/Temp > 100.7 F) Qty: 0 0RF ascorbic acid (vitamin C) 500 mg Tablet 500 mg PO BIDCM Qty: 0 0RF ferrous sulfate [FeroSul] 325 mg (65 mg iron) Tablet 325 mg PO BIDCM Qty: 0 0RF omeprazole 40 mg Capsule,Delayed Release(Dr/Ec) 40 mg PO DAILY diclofenac sodium 1 % Gel 1 ea TOPICAL PRN PRN (Reason: Pain) lorazepam 1 mg Tablet 1 mg PO BID PRN PRN (Reason: Anxiety) Qty: 5 0RF acetaminophen [Tylenol] 325 mg Tablet 650 mg PO Q4H PRN PRN (Reason: Fever, pain 1-10/10) Qty: 0 0RF ondansetron HCl 4 mg tablet 4 mg PO PRN PRN (Reason: Nausea) Discontinued furosemide [Lasix] 40 mg tablet 40 mg PO DAILY Qty: 1 0RF Rx Instructions: start on 11/23/21 Referrals / Follow Up: Erica Cannon MD [Primary Care Provider] - See Referral Note (On Friday orTh of this week, you will need a BMP drawn) Disposition Disposition (needs filled in before D/C Order can be placed): Home, Self Care 08/19/22 1606<Electronically signed by Jim Pizarro DO>Jim Pizarro DO CC: Dr. Winter Hamm MD; Dr. Ammy Agarwal MD; Dr. Sam Perez MD;Dr. Erica Cannon MD; Dr. Lisa Mendoza MD; Dr. Raysa Knox MD ~ Signed [facility] Work Phone: Evaluation + Plan note No data available for this section [facility] Evaluation note* Diagnosis Encounter for long-term current use of medication- Primary Anxiety state Anxiety state, unspecified Primary osteoarthritis of both knees Primary localized osteoarthrosis, lower leg Diabetes with skin complication (HCC) Other specified disorder of skin [facility] Leg cramp Cramp of limb Muscle spasm Spasm of muscle [facility]* Diagnosis Anxiety state Anxiety state, unspecified [facility]* Diagnosis Morbid obesity (HCC)- Primary Morbid obesity Current moderate episode of major depressive disorder, unspecified whether recurrent (HCC) Bilateral leg edema Edema Bilateral carpal tunnel syndrome Carpal tunnel syndrome Iron deficiency anemia, unspecified iron deficiency anemia type Allergic rhinitis, unspecified seasonality, unspecified trigger Primary hypertension Unspecified essential hypertension Type 2 diabetes (HCC) Upper abdominal pain Abdominal pain, other specified site Encounter for long-term current use of medication Chronic pain of right knee Spinal stenosis, lumbar region, without neurogenic claudication Primary osteoarthritis of both knees Primary localized osteoarthrosis, lower leg [facility]* Diagnosis No-show for appointment- Primary [facility]* Diagnosis Peripheral vascular disease, unspecified (HCC)- Primary Peripheral vascular disease, unspecified documented in this encounter [facility] note* Diagnosis Asthma, mild intermittent, well-controlled- Primary Unspecified asthma [facility]* Diagnosis Pain in both knees, unspecified chronicity- Primary [facility]* Diagnosis QUEEN (dyspnea on exertion) Other dyspnea and respiratory abnormality [facility]* Diagnosis Onset Date Resolution Status Weakness acute [facility] Work Phone: Evaluation note* Diagnosis Iron deficiency anemia, unspecified iron deficiency anemia type- Primary [facility] Diagnosis Insomnia, unspecified type- Primary Current moderate episode of major depressive disorder, unspecified whether recurrent (HCC) Primary osteoarthritis of both knees Primary localized osteoarthrosis, lower leg Anxiety state Anxiety state, unspecified Morbid obesity (HCC) Morbid obesity Type 2 diabetes (HCC) Iron deficiency anemia, unspecified iron deficiency anemia type [facility]* Diagnosis Iron deficiency anemia, unspecified iron deficiency anemia type- Primary [facility]* Diagnosis Onset Date Resolution Status Elevated serum creatinine ac [place] Iron deficiency anemia acute Obesity due to excess calories with serious comorbidit y acute Obesity hypoventilation syndrome acute Weakness acute Asthma chronic [facility] Work Phone: Evaluation note* Diagnosis Encounter for screening mammogram for breast cancer documented in this encounter [facility] note* Diagnosis Onset Date Resolution Status Iron deficiency anemia acute Obesity due to excess calori es with serious comorbidity acute Obesity hypoventilation syndrome acute Weakness acute Asthma chronic Elevated serum creatinine re solved Acute hyperkalemia acute [place] (acute kidney injury) [place] Bradycardia acute Generalized weakness acute History of diabetes mellitus acute Hyperkalemia acute Obesity hypoventilation syndrome acute Unable to ambulate acute Chronic anemia chronic Chronic respiratory insufficiency chronic [facility] Work Phone: Evaluation note* Diagnosis Onset Date Resolution Status Iron deficiency anemia acute Obesity due to excess calori es with serious comorbidity acute Obesity hypoventilation syndrome acute Weakness acute Asthma chronic Elevated serum creatinine re solved Acute hyperkalemia acute [place] (acute kidney injury) [place] Bradycardia acute Generalized weakness acute History of diabetes mellitus acute Hyperkalemia acute Obesity due to excess calori es with serious comorbidity acute Obesity hypoventilation syndrome acute Unable to ambulate acute Chronic anemia chronic Chronic pain chronic Chronic respiratory insufficiency chronic [facility] Work Phone: Evaluation note* Diagnosis Onset Date Resolution Status Iron deficiency anemia acute Obesity due to excess calori es with serious comorbidity acute Obesity hypoventilation syndrome acute Weakness acute Asthma chronic Elevated serum creatinine re solved History of diabetes mellitus acute Obesity due to excess calori es with serious comorbidity acute Obesity hypoventilation syndrome acute Unable to ambulate acute Chronic anemia chronic Chronic pain chronic Chronic respiratory insufficiency chronic Acute hyperkalemia resolved LORNE (acute kidney injury) re solved Bradycardia resolved Generalized weakness resolve d Hyperkalemia resolved [facility] Work Phone: Evaluation note* Diagnosis Reactive depression- Primary Dysthymic disorder Anxiety state Anxiety state, unspecified [facility]* Diagnosis Dysuria documented in this encounter [facility] note* Diagnosis Ulcer of left lower extremity, limited to breakdown of skin (HCC)- Primary Bilateral leg edema Edema Type 2 diabetes (HCC) H/O hypercapnia Personal history of other endocrine, metabolic, and immunity disorders [place] on CPAP Obstructive sleep apnea (adult) (pediatric) Obesity due to excess calories with serious comorbidity, unspecified classification Encounter for long-term current use of medication Functional incontinence Functional [facility]ence [facility] Type 2 diabetes (HCC)- Primary [facility]* Diagnosis Type 2 diabetes (HCC)- Primary [facility]* Diagnosis Type 2 diabetes (HCC)- Primary Morbid obesity (HCC) Morbid obesity Ulcer of left lower extremity, limited to breakdown of skin (HCC) [facility] Diagnosis Leg cramp Cramp of limb Muscle spasm Spasm of muscle [facility] Diagnosis Upper abdominal pain Abdominal pain, other specified site [facility] Diagnosis Anxiety state Anxiety state, unspecified Type 2 diabetes (HCC) [facility]* Diagnosis Type 2 diabetes (HCC) [facility]* Diagnosis Type 2 diabetes (HCC) [facility]* Diagnosis Leg cramp Cramp of limb Muscle spasm Spasm of muscle Allergic rhinitis, unspecified seasonality, unspecified trigger Bilateral leg edema Edema Type 2 diabetes (HCC) Anxiety state Anxiety state, unspecified Primary hypertension Unspecified essential hypertension Upper abdominal pain Abdominal pain, other specified site QUEEN (dyspnea on exertion) Other dyspnea and respiratory abnormality [facility]* Diagnosis Monilial vaginitis Candidiasis of vulva and vagina [facility] Diagnosis Bacterial conjunctivitis of left eye- Primary Other conjunctivitis [facility]* Diagnosis Functional incontinence- Primary Functional urinary incontinence Ulcer of left lower extremity, limited to breakdown of skin (HCC) Morbid obesity (HCC) Morbid obesity Decreased mobility Other symptoms involving nervous and musculoskeletal systems [facility]* Diagnosis Hypertension, unspecified type- Primary Pulmonary hypertension (HCC) Other chronic pulmonary heart diseases Moderate persistent asthma without complication Unspecified asthma Type 2 diabetes (HCC) BMI 60.0-69.9, adult (HCC) Body Mass Index 60.0-69.9, adult Decreased mobility Other symptoms involving nervous and musculoskeletal systems Gait instability Abnormality of gait [facility]* Diagnosis NO SHOW- Primary [facility]* Diagnosis Anxiety state Anxiety state, unspecified [facility]* Diagnosis Dysuria [facility]* Diagnosis Type 2 diabetes (HCC)- Primary Morbid obesity (HCC) Morbid obesity [facility]* Diagnosis Type 2 diabetes (HCC)- Primary Hypertension, unspecified type Encounter for long-term current use of medication Low ferritin level Other nonspecific findings on examination of blood documented in this encounter [facility] note* Diagnosis Type 2 diabetes (HCC)- Primary Medication management Encounter for long-term (current) use of other medications [facility]* Diagnosis Primary insomnia- Primary Persistent disorder of initiating or maintaining sleep Decreased mobility Other symptoms involving nervous and musculoskeletal systems Gait instability Abnormality of gait Primary osteoarthritis of both knees Primary localized osteoarthrosis, lower leg Primary hypertension Unspecified essential hypertension Type 2 diabetes (HCC) Leg cramp Cramp of limb Muscle spasm Spasm of muscle Anxiety state Anxiety state, unspecified BMI 60.0-69.9, adult (HCC) Body Mass Index 60.0-69.9, adult [facility]* Diagnosis Anxiety state Anxiety state, unspecified [facility]* Diagnosis Dental infection- Primary Acute apical periodontitis of pulpal origin [facility]* Diagnosis Type 2 diabetes (HCC) [facility]* Diagnosis Type 2 diabetes (HCC)- Primary [facility]* Diagnosis Cortical age-related cataract of left eye- Primary Cortical senile cataract Nuclear sclerosis, bilateral Other vitreous opacities, left eye Total, mature age-related cataract Type 2 diabetes mellitus without ophthalmic manifestations (HCC) Type II or unspecified type diabetes mellitus without mention of complication, not stated as uncontrolled [facility] Diagnosis Nuclear senile cataract of both eyes- Primary [facility]* Diagnosis Unsteady gait- Primary Abnormality of gait Primary osteoarthritis of both knees Primary localized osteoarthrosis, lower leg Decreased mobility Other symptoms involving nervous and musculoskeletal systems [facility]* Diagnosis Anxiety state Anxiety state, unspecified Total, mature age-related cataract [facility]* Diagnosis Diarrhea, unspecified type- Primary Total, mature age-related cataract [facility] Diagnosis Type 2 diabetes (HCC)- Primary Total, mature age-related cataract documented in this encounter [facility] note* Diagnosis Leg cramp Cramp of limb Muscle spasm Spasm of muscle Total, mature age-related cataract documented in this encounter [facility] note* Diagnosis Dental infection Acute apical periodontitis of pulpal origin Anxiety state Anxiety state, unspecified Total, mature age-related cataract documented in this encounter [facility] note* Diagnosis Pre-operative examination- Primary Preoperative examination, unspecified Bilateral leg edema Edema Pulmonary hypertension (HCC) Other chronic pulmonary heart diseases Primary hypertension Unspecified essential hypertension Mixed hyperlipidemia Obstructive sleep apnea Obstructive sleep apnea (adult) (pediatric) Moderate persistent asthma without complication Unspecified asthma Iron deficiency anemia, unspecified iron deficiency anemia type Type 2 diabetes (HCC) Ulcer of left lower extremity, limited to breakdown of skin ([facility]) Reactive depression Dysthymic disorder Chronic hepatitis, unspecified ([facility]) Chronic hepatitis, unspecified Gastroesophageal reflux disease, unspecified whether esophagitis present Stage 3 chronic kidney disease, unspecified whether stage 3a or 3b CKD ([facility]) Total, mature age-related cataract documented in this encounter [facility] note* Diagnosis Diarrhea, unspecified type- Primary Total, mature age-related cataract documented in this encounter [facility] note* Diagnosis Onset Date Resolution Status Acute renal failure acute Asymptomatic bacteriuria acu [place] Gastroenteritis acute Hypokalemia acute [facility] Work Phone: Evaluation note* Diagnosis Onset Date Resolution Status Acute renal failure acute Asymptomatic bacteriuria acu [place] Diarrhea acute Epigastric abdominal pain ac [place] Gastroenteritis acute History of diabetes mellitus acute Hypokalemia acute LUQ pain acute Obesity hypoventilation syndrome acute [facility] Work Phone: Evaluation note* Diagnosis Nausea- Primary Nausea alone Diarrhea, unspecified type Abdominal cramping Abdominal pain, unspecified site Vomiting, unspecified vomiting type, unspecified whether nausea present Total, mature age-related cataract documented in this encounter [facility] note* Diagnosis Primary hypertension- Primary Unspecified essential hypertension Total, mature age-related cataract documented in this encounter [facility] note* Diagnosis Skin infection- Primary Unspecified local infection of skin and subcutaneous tissue Dental infection Acute apical periodontitis of pulpal origin Primary osteoarthritis of both knees Primary localized osteoarthrosis, lower leg Total, mature age-related cataract [facility]* Diagnosis Acute renal insufficiency- Primary Unspecified disorder of kidney and ureter Hypokalemia Hypopotassemia Muscular deconditioning Muscular wasting and disuse atrophy, not elsewhere classified Chronic nasal congestion Other diseases of nasal cavity and sinuses Primary hypertension Unspecified essential hypertension Ulcer of left lower extremity, limited to breakdown of skin (HCC) Allergic rhinitis, unspecified seasonality, unspecified trigger Morbid obesity (HCC) Morbid obesity Total, mature age-related cataract [facility]* Diagnosis Type 2 diabetes (HCC)- Primary [facility]* Diagnosis Pseudophakia- Primary Lens replaced by other means [facility]* Diagnosis Type 2 diabetes (HCC) [facility]* Diagnosis Anxiety state Anxiety state, unspecified [facility]* Diagnosis Upper abdominal pain Abdominal pain, other specified site Primary hypertension Unspecified essential hypertension [facility]* Diagnosis Type 2 diabetes (HCC)- Primary Morbid obesity (HCC) Morbid obesity [facility]* Diagnosis Dental infection Acute apical periodontitis of pulpal origin Skin infection Unspecified local infection of skin and subcutaneous tissue [facility]* Diagnosis Pes planus of both feet- Primary Diabetic mononeuropathy associated with diabetes mellitus due to underlying condition (HCC) Hammer toe, unspecified laterality Onychomycosis Dermatophytosis of nail Pain in toe of left foot Pain in limb Pain in toe of right foot Pain in limb [facility]* Diagnosis Type 2 diabetes (HCC)- Primary [facility]* Diagnosis Anxiety state Anxiety state, unspecified [facility]* Diagnosis Allergic rhinitis, unspecified seasonality, unspecified trigger- Primary Reactive depression Dysthymic disorder Primary hypertension Unspecified essential hypertension Mixed hyperlipidemia Decreased mobility Other symptoms involving nervous and musculoskeletal systems Morbid obesity (HCC) Morbid obesity Iron deficiency anemia, unspecified iron deficiency anemia type Encounter for immunization Need for other specified prophylactic vaccination against single bacterial disease Encounter for therapeutic drug monitoring [facility]* Diagnosis 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- Primary Epiphora due to insufficient drainage Pseudophakia Lens replaced by other means Senile nuclear cataract, right [facility]* Diagnosis Type 2 diabetes (HCC) [facility] Diagnosis Type 2 diabetes (HCC)- Primary [facility]* Diagnosis Left lower quadrant abdominal pain- Primary Pelvic pain Type 2 diabetes (HCC) Primary hypertension Unspecified essential hypertension [facility]* Diagnosis Type 2 diabetes (HCC)- Primary [facility] Diagnosis Type 2 diabetes (HCC)- Primary Medication management Encounter for long-term (current) use of other medications [facility]* Diagnosis Allergic rhinitis, unspecified seasonality, unspecified trigger [facility]* Diagnosis Moderate persistent asthma without complication- Primary Unspecified asthma Morbid obesity (HCC) Morbid obesity Reactive depression Dysthymic disorder Anxiety state Anxiety state, unspecified Type 2 diabetes (HCC)- Primary [facility]* Diagnosis Type 2 diabetes (HCC)- Primary [facility] Diagnosis Onychomycosis- Primary Dermatophytosis of nail Pain in toe of left foot Pain in limb Pain in toe of right foot Pain in limb Diabetic mononeuropathy associated with diabetes mellitus due to underlying condition ([facility]) [facility]* Diagnosis Type 2 diabetes (HCC)- Primary Anxiety state Anxiety state, unspecified Iron deficiency anemia, unspecified iron deficiency anemia type [facility]* Diagnosis Type 2 diabetes (HCC)- Primary [facility]* Diagnosis Left lower quadrant abdominal pain [facility]* Diagnosis Functional incontinence- Primary Functional urinary incontinence Decreased mobility Other symptoms involving nervous and musculoskeletal systems Ulcer of left lower extremity, limited to breakdown of skin (HCC) Morbid obesity (HCC) Morbid obesity [facility]* Diagnosis Chronic respiratory failure with hypoxia, on home O2 therapy (HCC) (HCC)- Primary Primary osteoarthritis of both knees Primary localized osteoarthrosis, lower leg Pulmonary hypertension (HCC) Other chronic pulmonary heart diseases BMI 60.0-69.9, adult (HCC) Body Mass Index 60.0-69.9, adult Morbid obesity with BMI of 50.0-59.9, adult (HCC) Morbid obesity [facility]* Diagnosis Type 2 diabetes (HCC)- Primary [facility]* Diagnosis Morbid obesity (HCC)- Primary Morbid obesity Decreased mobility Other symptoms involving nervous and musculoskeletal systems Functional incontinence Functional urinary incontinence Ulcer of left lower extremity, limited to breakdown of skin (HCC) Type 2 diabetes (HCC)- Primary [facility]* Diagnosis Type 2 diabetes (HCC)- Primary Type 2 diabetes (HCC)- Primary [facility]* Diagnosis Anxiety state Anxiety state, unspecified Type 2 diabetes (HCC)- Primary [facility]* Diagnosis Type 2 diabetes (HCC)- Primary [facility] Diagnosis Leg cramp Cramp of limb Muscle spasm Spasm of muscle [facility]* Diagnosis Encounter for screening mammogram for breast cancer [facility]* Diagnosis Reactive depression Dysthymic disorder [facility] Diagnosis Urinary frequency- Primary Flank pain Abdominal pain, unspecified site [facility]* Diagnosis Onychomycosis- Primary Dermatophytosis of nail Pain in toe of left foot Pain in limb Pain in toe of right foot Pain in limb Diabetic polyneuropathy associated with type 2 diabetes mellitus (HCC) [facility]* Diagnosis Anxiety state Anxiety state, unspecified Moderate persistent asthma without complication Unspecified asthma [facility]* Diagnosis Diverticulitis- Primary Diverticulitis of colon (without mention of hemorrhage) Left lower quadrant abdominal pain Type 2 diabetes (HCC) Primary hypertension Unspecified essential hypertension Obstructive sleep apnea Obstructive sleep apnea (adult) (pediatric) Moderate persistent asthma without complication Unspecified asthma On supplemental oxygen therapy Dependence on supplemental oxygen [facility]* Diagnosis Moderate persistent asthma without complication- Primary Unspecified asthma [facility]* Diagnosis Type 2 diabetes (HCC)- Primary [facility]* Diagnosis Encounter for gynecological examination (general) (routine) without abnormal findings- Primary Encounter for screening for human papillomavirus (HPV) Special screening examination for human papillomavirus (HPV) Pap smear for cervical cancer screening Screening for malignant neoplasm of the cervix Encounter for screening mammogram for breast cancer [facility] Diagnosis Pre-operative examination- Primary Preoperative examination, unspecified Bilateral leg edema Edema Pulmonary hypertension (HCC) Other chronic pulmonary heart diseases Primary hypertension Unspecified essential hypertension Mixed hyperlipidemia Obstructive sleep apnea Obstructive sleep apnea (adult) (pediatric) Moderate persistent asthma without complication Unspecified asthma Iron deficiency anemia, unspecified iron deficiency anemia type Type 2 diabetes (HCC) Ulcer of left lower extremity, limited to breakdown of skin (HCC) Reactive depression Dysthymic disorder Chronic hepatitis, unspecified (HCC) Chronic hepatitis, unspecified Gastroesophageal reflux disease, unspecified whether esophagitis present Stage 3 chronic kidney disease, unspecified whether stage 3a or 3b CKD (HCC) Primary osteoarthritis of both knees Primary localized osteoarthrosis, lower leg Unsteady gait Abnormality of gait Decreased mobility Other symptoms involving nervous and musculoskeletal systems [facility] Diagnosis Pre-operative examination- Primary Preoperative examination, unspecified Bilateral leg edema Edema Pulmonary hypertension (HCC) Other chronic pulmonary heart diseases Primary hypertension Unspecified essential hypertension Mixed hyperlipidemia Obstructive sleep apnea Obstructive sleep apnea (adult) (pediatric) Moderate persistent asthma without complication Unspecified asthma Iron deficiency anemia, unspecified iron deficiency anemia type Type 2 diabetes (HCC) Ulcer of left lower extremity, limited to breakdown of skin (HCC) Reactive depression Dysthymic disorder Chronic hepatitis, unspecified (HCC) Chronic hepatitis, unspecified Gastroesophageal reflux disease, unspecified whether esophagitis present Stage 3 chronic kidney disease, unspecified whether stage 3a or 3b CKD (HCC) Dental infection- Primary Acute apical periodontitis of pulpal origin Pulmonary hypertension (HCC) Other chronic pulmonary heart diseases Obstructive sleep apnea Obstructive sleep apnea (adult) (pediatric) Moderate persistent asthma without complication Unspecified asthma On supplemental oxygen therapy Dependence on supplemental oxygen Morbid obesity (HCC) Morbid obesity [facility]* Diagnosis Pre-operative examination- Primary Preoperative examination, unspecified Bilateral leg edema Edema Pulmonary hypertension (HCC) Other chronic pulmonary heart diseases Primary hypertension Unspecified essential hypertension Mixed hyperlipidemia Obstructive sleep apnea Obstructive sleep apnea (adult) (pediatric) Moderate persistent asthma without complication Unspecified asthma Iron deficiency anemia, unspecified iron deficiency anemia type Type 2 diabetes (HCC) Ulcer of left lower extremity, limited to breakdown of skin (HCC) Reactive depression Dysthymic disorder Chronic hepatitis, unspecified (HCC) Chronic hepatitis, unspecified Gastroesophageal reflux disease, unspecified whether esophagitis present Stage 3 chronic kidney disease, unspecified whether stage 3a or 3b CKD (HCC) Anxiety state Anxiety state, unspecified [facility]* Diagnosis Pre-operative examination- Primary Preoperative examination, unspecified Bilateral leg edema Edema Pulmonary hypertension (HCC) Other chronic pulmonary heart diseases Primary hypertension Unspecified essential hypertension Mixed hyperlipidemia Obstructive sleep apnea Obstructive sleep apnea (adult) (pediatric) Moderate persistent asthma without complication Unspecified asthma Iron deficiency anemia, unspecified iron deficiency anemia type Type 2 diabetes (HCC) Ulcer of left lower extremity, limited to breakdown of skin (HCC) Reactive depression Dysthymic disorder Chronic hepatitis, unspecified (HCC) Chronic hepatitis, unspecified Gastroesophageal reflux disease, unspecified whether esophagitis present Stage 3 chronic kidney disease, unspecified whether stage 3a or 3b CKD (HCC) Left lower quadrant abdominal pain- Primary Diverticulitis Diverticulitis of colon (without mention of hemorrhage) documented in this encounter [facility] note* Diagnosis Pre-operative examination- Primary Preoperative examination, unspecified Bilateral leg edema Edema Pulmonary hypertension (HCC) Other chronic pulmonary heart diseases Primary hypertension Unspecified essential hypertension Mixed hyperlipidemia Obstructive sleep apnea Obstructive sleep apnea (adult) (pediatric) Moderate persistent asthma without complication Unspecified asthma Iron deficiency anemia, unspecified iron deficiency anemia type Type 2 diabetes (HCC) Ulcer of left lower extremity, limited to breakdown of skin (HCC) Reactive depression Dysthymic disorder Chronic hepatitis, unspecified (HCC) Chronic hepatitis, unspecified Gastroesophageal reflux disease, unspecified whether esophagitis present Stage 3 chronic kidney disease, unspecified whether stage 3a or 3b CKD (HCC) Pulmonary hypertension (HCC)- Primary Other chronic pulmonary heart diseases On supplemental oxygen therapy Dependence on supplemental oxygen Hypoxia Hypoxemia Left lower quadrant abdominal pain documented in this encounter [facility] note* Diagnosis Pre-operative examination- Primary Preoperative examination, unspecified Bilateral leg edema Edema Pulmonary hypertension (HCC) Other chronic pulmonary heart diseases Primary hypertension Unspecified essential hypertension Mixed hyperlipidemia Obstructive sleep apnea Obstructive sleep apnea (adult) (pediatric) Moderate persistent asthma without complication Unspecified asthma Iron deficiency anemia, unspecified iron deficiency anemia type Type 2 diabetes (HCC) Ulcer of left lower extremity, limited to breakdown of skin (HCC) Reactive depression Dysthymic disorder Chronic hepatitis, unspecified (HCC) Chronic hepatitis, unspecified Gastroesophageal reflux disease, unspecified whether esophagitis present Stage 3 chronic kidney disease, unspecified whether stage 3a or 3b CKD (HCC) Moderate persistent asthma without complication- Primary Unspecified asthma On supplemental oxygen therapy Dependence on supplemental oxygen Obstructive sleep apnea Obstructive sleep apnea (adult) (pediatric) Pulmonary hypertension (HCC) Other chronic pulmonary heart diseases documented [facility]* Diagnosis Pre-operative examination- Primary Preoperative examination, unspecified Bilateral leg edema Edema Pulmonary hypertension (HCC) Other chronic pulmonary heart diseases Primary hypertension Unspecified essential hypertension Mixed hyperlipidemia Obstructive sleep apnea Obstructive sleep apnea (adult) (pediatric) Moderate persistent asthma without complication Unspecified asthma Iron deficiency anemia, unspecified iron deficiency anemia type Type 2 diabetes (HCC) Ulcer of left lower extremity, limited to breakdown of skin (HCC) Reactive depression Dysthymic disorder Chronic hepatitis, unspecified (HCC) Chronic hepatitis, unspecified Gastroesophageal reflux disease, unspecified whether esophagitis present Stage 3 chronic kidney disease, unspecified whether stage 3a or 3b CKD (HCC) Pulmonary hypertension (HCC) Other chronic pulmonary heart diseases On supplemental oxygen therapy Dependence on supplemental oxygen Hypoxia Hypoxemia documented [facility] this encounter [facility]* Diagnosis Pre-operative examination- Primary Preoperative examination, unspecified Bilateral leg edema Edema Pulmonary hypertension (HCC) Other chronic pulmonary heart diseases Primary hypertension Unspecified essential hypertension Mixed hyperlipidemia Obstructive sleep apnea Obstructive sleep apnea (adult) (pediatric) Moderate persistent asthma without complication Unspecified asthma Iron deficiency anemia, unspecified iron deficiency anemia type Type 2 diabetes (HCC) Ulcer of left lower extremity, limited to breakdown of skin (HCC) Reactive depression Dysthymic disorder Chronic hepatitis, unspecified (HCC) Chronic hepatitis, unspecified Gastroesophageal reflux disease, unspecified whether esophagitis present Stage 3 chronic kidney disease, unspecified whether stage 3a or 3b CKD (HCC) Reactive depression Dysthymic disorder Left lower quadrant abdominal pain Diverticulitis Diverticulitis of colon (without mention of hemorrhage) Allergic rhinitis, unspecified seasonality, unspecified trigger Moderate persistent asthma without complication Unspecified asthma Leg cramp Cramp of limb Muscle spasm Spasm of muscle Anxiety state Anxiety state, unspecified documented in this encounter [facility]* Diagnosis Pre-operative examination- Primary Preoperative examination, unspecified Bilateral leg edema Edema Pulmonary hypertension (HCC) Other chronic pulmonary heart diseases Primary hypertension Unspecified essential hypertension Mixed hyperlipidemia Obstructive sleep apnea Obstructive sleep apnea (adult) (pediatric) Moderate persistent asthma without complication Unspecified asthma Iron deficiency anemia, unspecified iron deficiency anemia type Type 2 diabetes (HCC) Ulcer of left lower extremity, limited to breakdown of skin (HCC) Reactive depression Dysthymic disorder Chronic hepatitis, unspecified (HCC) Chronic hepatitis, unspecified Gastroesophageal reflux disease, unspecified whether esophagitis present Stage 3 chronic kidney disease, unspecified whether stage 3a or 3b CKD (HCC) Pulmonary hypertension (HCC)- Primary Other chronic pulmonary heart diseases On supplemental oxygen therapy Dependence on supplemental oxygen Hypoxia Hypoxemia Obstructive sleep apnea Obstructive sleep apnea (adult) (pediatric) Left lower quadrant abdominal pain Morbid obesity (HCC) Morbid obesity Encounter for immunization Need for other specified prophylactic vaccination against single bacterial disease documented [facility] this encounter [facility]* Diagnosis Pre-operative examination- Primary Preoperative examination, unspecified Bilateral leg edema Edema Pulmonary hypertension (HCC) Other chronic pulmonary heart diseases Primary hypertension Unspecified essential hypertension Mixed hyperlipidemia Obstructive sleep apnea Obstructive sleep apnea (adult) (pediatric) Moderate persistent asthma without complication Unspecified asthma Iron deficiency anemia, unspecified iron deficiency anemia type Type 2 diabetes (HCC) Ulcer of left lower extremity, limited to breakdown of skin (HCC) Reactive depression Dysthymic disorder Chronic hepatitis, unspecified (HCC) Chronic hepatitis, unspecified Gastroesophageal reflux disease, unspecified whether esophagitis present Stage 3 chronic kidney disease, unspecified whether stage 3a or 3b CKD (HCC) Anxiety state Anxiety state, unspecified documented in this encounter [facility]* Diagnosis Pre-operative examination- Primary Preoperative examination, unspecified Bilateral leg edema Edema Pulmonary hypertension (HCC) Other chronic pulmonary heart diseases Primary hypertension Unspecified essential hypertension Mixed hyperlipidemia Obstructive sleep apnea Obstructive sleep apnea (adult) (pediatric) Moderate persistent asthma without complication Unspecified asthma Iron deficiency anemia, unspecified iron deficiency anemia type Type 2 diabetes (HCC) Ulcer of left lower extremity, limited to breakdown of skin (HCC) Reactive depression Dysthymic disorder Chronic hepatitis, unspecified (HCC) Chronic hepatitis, unspecified Gastroesophageal reflux disease, unspecified whether esophagitis present Stage 3 chronic kidney disease, unspecified whether stage 3a or 3b CKD (HCC) Left lower quadrant abdominal pain Diverticulitis Diverticulitis of colon (without mention of hemorrhage) Anxiety state Anxiety state, unspecified Leg cramp Cramp of limb Muscle spasm Spasm of muscle documented in this encounter [facility]* Diagnosis Pre-operative examination- Primary Preoperative examination, unspecified Bilateral leg edema Edema Pulmonary hypertension (HCC) Other chronic pulmonary heart diseases Primary hypertension Unspecified essential hypertension Mixed hyperlipidemia Obstructive sleep apnea Obstructive sleep apnea (adult) (pediatric) Moderate persistent asthma without complication Unspecified asthma Iron deficiency anemia, unspecified iron deficiency anemia type Type 2 diabetes (HCC) Ulcer of left lower extremity, limited to breakdown of skin (HCC) Reactive depression Dysthymic disorder Chronic hepatitis, unspecified (HCC) Chronic hepatitis, unspecified Gastroesophageal reflux disease, unspecified whether esophagitis present Stage 3 chronic kidney disease, unspecified whether stage 3a or 3b CKD (HCC) Moderate persistent asthma without complication Unspecified asthma [facility]* Diagnosis Pre-operative examination- Primary Preoperative examination, unspecified Bilateral leg edema Edema Pulmonary hypertension (HCC) Other chronic pulmonary heart diseases Primary hypertension Unspecified essential hypertension Mixed hyperlipidemia Obstructive sleep apnea Obstructive sleep apnea (adult) (pediatric) Moderate persistent asthma without complication Unspecified asthma Iron deficiency anemia, unspecified iron deficiency anemia type Type 2 diabetes (HCC) Ulcer of left lower extremity, limited to breakdown of skin (HCC) Reactive depression Dysthymic disorder Chronic hepatitis, unspecified (HCC) Chronic hepatitis, unspecified Gastroesophageal reflux disease, unspecified whether esophagitis present Stage 3 chronic kidney disease, unspecified whether stage 3a or 3b CKD (HCC) Anxiety state Anxiety state, unspecified [facility] Diagnosis Pre-operative examination- Primary Preoperative examination, unspecified Bilateral leg edema Edema Pulmonary hypertension (HCC) Other chronic pulmonary heart diseases Primary hypertension Unspecified essential hypertension Mixed hyperlipidemia Obstructive sleep apnea Obstructive sleep apnea (adult) (pediatric) Moderate persistent asthma without complication Unspecified asthma Iron deficiency anemia, unspecified iron deficiency anemia type Type 2 diabetes (HCC) Ulcer of left lower extremity, limited to breakdown of skin (HCC) Reactive depression Dysthymic disorder Chronic hepatitis, unspecified (HCC) Chronic hepatitis, unspecified Gastroesophageal reflux disease, unspecified whether esophagitis present Stage 3 chronic kidney disease, unspecified whether stage 3a or 3b CKD (HCC) UTI symptoms- Primary Other symptoms involving urinary system Dysuria [facility]* Diagnosis Pre-operative examination- Primary Preoperative examination, unspecified Bilateral leg edema Edema Pulmonary hypertension (HCC) Other chronic pulmonary heart diseases Primary hypertension Unspecified essential hypertension Mixed hyperlipidemia Obstructive sleep apnea Obstructive sleep apnea (adult) (pediatric) Moderate persistent asthma without complication Unspecified asthma Iron deficiency anemia, unspecified iron deficiency anemia type Type 2 diabetes (HCC) Ulcer of left lower extremity, limited to breakdown of skin (HCC) Reactive depression Dysthymic disorder Chronic hepatitis, unspecified (HCC) Chronic hepatitis, unspecified Gastroesophageal reflux disease, unspecified whether esophagitis present Stage 3 chronic kidney disease, unspecified whether stage 3a or 3b CKD (HCC) Leg cramp Cramp of limb Muscle spasm Spasm of muscle Morbid obesity (HCC) Morbid obesity Reactive depression Dysthymic disorder documented in this encounter [facility]* Diagnosis Pre-operative examination- Primary Preoperative examination, unspecified Bilateral leg edema Edema Pulmonary hypertension (HCC) Other chronic pulmonary heart diseases Primary hypertension Unspecified essential hypertension Mixed hyperlipidemia Obstructive sleep apnea Obstructive sleep apnea (adult) (pediatric) Moderate persistent asthma without complication Unspecified asthma Iron deficiency anemia, unspecified iron deficiency anemia type Type 2 diabetes (HCC) Ulcer of left lower extremity, limited to breakdown of skin (HCC) Reactive depression Dysthymic disorder Chronic hepatitis, unspecified (HCC) Chronic hepatitis, unspecified Gastroesophageal reflux disease, unspecified whether esophagitis present Stage 3 chronic kidney disease, unspecified whether stage 3a or 3b CKD (HCC) Dysuria- Primary documented in this encounter [facility] note* Diagnosis Pre-operative examination- Primary Preoperative examination, unspecified Bilateral leg edema Edema Pulmonary hypertension (HCC) Other chronic pulmonary heart diseases Primary hypertension Unspecified essential hypertension Mixed hyperlipidemia Obstructive sleep apnea Obstructive sleep apnea (adult) (pediatric) Moderate persistent asthma without complication Unspecified asthma Iron deficiency anemia, unspecified iron deficiency anemia type Type 2 diabetes (HCC) Ulcer of left lower extremity, limited to breakdown of skin (HCC) Reactive depression Dysthymic disorder Chronic hepatitis, unspecified (HCC) Chronic hepatitis, unspecified Gastroesophageal reflux disease, unspecified whether esophagitis present Stage 3 chronic kidney disease, unspecified whether stage 3a or 3b CKD (HCC) Dysuria- Primary documented [facility] this [facility]* Diagnosis Pre-operative examination- Primary Preoperative examination, unspecified Bilateral leg edema Edema Pulmonary hypertension (HCC) Other chronic pulmonary heart diseases Primary hypertension Unspecified essential hypertension Mixed hyperlipidemia Obstructive sleep apnea Obstructive sleep apnea (adult) (pediatric) Moderate persistent asthma without complication Unspecified asthma Iron deficiency anemia, unspecified iron deficiency anemia type Type 2 diabetes (HCC) Ulcer of left lower extremity, limited to breakdown of skin (HCC) Reactive depression Dysthymic disorder Chronic hepatitis, unspecified (HCC) Chronic hepatitis, unspecified Gastroesophageal reflux disease, unspecified whether esophagitis present Stage 3 chronic kidney disease, unspecified whether stage 3a or 3b CKD (HCC) Anxiety state Anxiety state, unspecified Type 2 diabetes (HCC) documented [facility]* Diagnosis Pre-operative examination- Primary Preoperative examination, unspecified Bilateral leg edema Edema Pulmonary hypertension (HCC) Other chronic pulmonary heart diseases Primary hypertension Unspecified essential hypertension Mixed hyperlipidemia Obstructive sleep apnea Obstructive sleep apnea (adult) (pediatric) Moderate persistent asthma without complication Unspecified asthma Iron deficiency anemia, unspecified iron deficiency anemia type Type 2 diabetes (HCC) Ulcer of left lower extremity, limited to breakdown of skin (HCC) Reactive depression Dysthymic disorder Chronic hepatitis, unspecified (HCC) Chronic hepatitis, unspecified Gastroesophageal reflux disease, unspecified whether esophagitis present Stage 3 chronic kidney disease, unspecified whether stage 3a or 3b CKD (HCC) Onychomycosis- Primary Dermatophytosis of nail Pain in toe of left foot Pain in limb Pain in toe of right foot Pain in limb Diabetic polyneuropathy associated with type 2 diabetes mellitus (HCC) documented in this encounter [facility] note* Diagnosis Pre-operative examination- Primary Preoperative examination, unspecified Bilateral leg edema Edema Pulmonary hypertension (HCC) Other chronic pulmonary heart diseases Primary hypertension Unspecified essential hypertension Mixed hyperlipidemia Obstructive sleep apnea Obstructive sleep apnea (adult) (pediatric) Moderate persistent asthma without complication Unspecified asthma Iron deficiency anemia, unspecified iron deficiency anemia type Type 2 diabetes (HCC) Ulcer of left lower extremity, limited to breakdown of skin (HCC) Reactive depression Dysthymic disorder Chronic hepatitis, unspecified (HCC) Chronic hepatitis, unspecified Gastroesophageal reflux disease, unspecified whether esophagitis present Stage 3 chronic kidney disease, unspecified whether stage 3a or 3b CKD (HCC) Chronic pain of right knee- Primary Constipation, unspecified constipation type Pelvic pain Weight loss counseling, encounter for Dietary surveillance and counseling documented in this encounter [facility] note* Diagnosis Pre-operative examination- Primary Preoperative examination, unspecified Bilateral leg edema Edema Pulmonary hypertension (HCC) Other chronic pulmonary heart diseases Primary hypertension Unspecified essential hypertension Mixed hyperlipidemia Obstructive sleep apnea Obstructive sleep apnea (adult) (pediatric) Moderate persistent asthma without complication Unspecified asthma Iron deficiency anemia, unspecified iron deficiency anemia type Type 2 diabetes (HCC) Ulcer of left lower extremity, limited to breakdown of skin (HCC) Reactive depression Dysthymic disorder Chronic hepatitis, unspecified (HCC) Chronic hepatitis, unspecified Gastroesophageal reflux disease, unspecified whether esophagitis present Stage 3 chronic kidney disease, unspecified whether stage 3a or 3b CKD (HCC) Leg cramp Cramp of limb Muscle spasm Spasm of muscle Moderate persistent asthma without complication Unspecified asthma [facility]* Diagnosis Pre-operative examination- Primary Preoperative examination, unspecified Bilateral leg edema Edema Pulmonary hypertension (HCC) Other chronic pulmonary heart diseases Primary hypertension Unspecified essential hypertension Mixed hyperlipidemia Obstructive sleep apnea Obstructive sleep apnea (adult) (pediatric) Moderate persistent asthma without complication (HCC) Unspecified asthma Iron deficiency anemia, unspecified iron deficiency anemia type Type 2 diabetes (HCC) Ulcer of left lower extremity, limited to breakdown of skin (HCC) Reactive depression Dysthymic disorder Chronic hepatitis, unspecified (HCC) Chronic hepatitis, unspecified Gastroesophageal reflux disease, unspecified whether esophagitis present Stage 3 chronic kidney disease, unspecified whether stage 3a or 3b CKD (HCC) Pelvic pain- Primary documented in this encounter [facility] note* Diagnosis Pre-operative examination- Primary Preoperative examination, unspecified Bilateral leg edema Edema Pulmonary hypertension (HCC) Other chronic pulmonary heart diseases Primary hypertension Unspecified essential hypertension Mixed hyperlipidemia Obstructive sleep apnea Obstructive sleep apnea (adult) (pediatric) Moderate persistent asthma without complication (HCC) Unspecified asthma Iron deficiency anemia, unspecified iron deficiency anemia type Type 2 diabetes (HCC) Ulcer of left lower extremity, limited to breakdown of skin (HCC) Reactive depression Dysthymic disorder Chronic hepatitis, unspecified (HCC) Chronic hepatitis, unspecified Gastroesophageal reflux disease, unspecified whether esophagitis present Stage 3 chronic kidney disease, unspecified whether stage 3a or 3b CKD (HCC) Anxiety state Anxiety state, unspecified documented in this encounter [facility] note* Diagnosis Pre-operative examination- Primary Preoperative examination, unspecified Bilateral leg edema Edema Pulmonary hypertension (HCC) Other chronic pulmonary heart diseases Primary hypertension Unspecified essential hypertension Mixed hyperlipidemia Obstructive sleep apnea Obstructive sleep apnea (adult) (pediatric) Moderate persistent asthma without complication (HCC) Unspecified asthma Iron deficiency anemia, unspecified iron deficiency anemia type Type 2 diabetes (HCC) Ulcer of left lower extremity, limited to breakdown of skin (HCC) Reactive depression Dysthymic disorder Chronic hepatitis, unspecified (HCC) Chronic hepatitis, unspecified Gastroesophageal reflux disease, unspecified whether esophagitis present Stage 3 chronic kidney disease, unspecified whether stage 3a or 3b CKD (HCC) Generalized osteoarthritis- Primary Generalized osteoarthrosis, unspecified site Spinal stenosis of lumbar region, unspecified whether neurogenic claudication present documented in this encounter [facility] note* Diagnosis Pre-operative examination- Primary Preoperative examination, unspecified Bilateral leg edema Edema Pulmonary hypertension (HCC) Other chronic pulmonary heart diseases Primary hypertension Unspecified essential hypertension Mixed hyperlipidemia Obstructive sleep apnea Obstructive sleep apnea (adult) (pediatric) Moderate persistent asthma without complication (HCC) Unspecified asthma Iron deficiency anemia, unspecified iron deficiency anemia type Type 2 diabetes (HCC) Ulcer of left lower extremity, limited to breakdown of skin (HCC) Reactive depression Dysthymic disorder Chronic hepatitis, unspecified (HCC) Chronic hepatitis, unspecified Gastroesophageal reflux disease, unspecified whether esophagitis present Stage 3 chronic kidney disease, unspecified whether stage 3a or 3b CKD (HCC) Onychomycosis- Primary Dermatophytosis of nail Pain in toe of left foot Pain in limb Pain in toe of right foot Pain in limb Diabetic polyneuropathy associated with type 2 diabetes mellitus (HCC) documented in this encounter [facility] note* Diagnosis Pre-operative examination- Primary Preoperative examination, unspecified Bilateral leg edema Edema Pulmonary hypertension (HCC) Other chronic pulmonary heart diseases Primary hypertension Unspecified essential hypertension Mixed hyperlipidemia Obstructive sleep apnea Obstructive sleep apnea (adult) (pediatric) Moderate persistent asthma without complication (HCC) Unspecified asthma Iron deficiency anemia, unspecified iron deficiency anemia type Type 2 diabetes (HCC) Ulcer of left lower extremity, limited to breakdown of skin (HCC) Reactive depression Dysthymic disorder Chronic hepatitis, unspecified (HCC) Chronic hepatitis, unspecified Gastroesophageal reflux disease, unspecified whether esophagitis present Stage 3 chronic kidney disease, unspecified whether stage 3a or 3b CKD (HCC) Acute cystitis with hematuria- Primary Acute cystitis Urinary frequency documented in this encounter [facility] note* Diagnosis Pre-operative examination- Primary Preoperative examination, unspecified Bilateral leg edema Edema Pulmonary hypertension (HCC) Other chronic pulmonary heart diseases Primary hypertension Unspecified essential hypertension Mixed hyperlipidemia Obstructive sleep apnea Obstructive sleep apnea (adult) (pediatric) Moderate persistent asthma without complication (HCC) Unspecified asthma Iron deficiency anemia, unspecified iron deficiency anemia type Type 2 diabetes (HCC) Ulcer of left lower extremity, limited to breakdown of skin (HCC) Reactive depression Dysthymic disorder Chronic hepatitis, unspecified (HCC) Chronic hepatitis, unspecified Gastroesophageal reflux disease, unspecified whether esophagitis present Stage 3 chronic kidney disease, unspecified whether stage 3a or 3b CKD (HCC) Left lower quadrant abdominal pain Diverticulitis Diverticulitis of colon (without mention of hemorrhage) Reactive depression Dysthymic disorder Leg cramp Cramp of limb Muscle spasm Spasm of muscle [facility]* Diagnosis Pre-operative examination- Primary Preoperative examination, unspecified Bilateral leg edema Edema Pulmonary hypertension (HCC) Other chronic pulmonary heart diseases Primary hypertension Unspecified essential hypertension Mixed hyperlipidemia Obstructive sleep apnea Obstructive sleep apnea (adult) (pediatric) Moderate persistent asthma without complication (HCC) Unspecified asthma Iron deficiency anemia, unspecified iron deficiency anemia type Type 2 diabetes (HCC) Ulcer of left lower extremity, limited to breakdown of skin (HCC) Reactive depression Dysthymic disorder Chronic hepatitis, unspecified (HCC) Chronic hepatitis, unspecified Gastroesophageal reflux disease, unspecified whether esophagitis present Stage 3 chronic kidney disease, unspecified whether stage 3a or 3b CKD (HCC) Dysuria- Primary Urinary tract infection with hematuria, site unspecified [facility]* Diagnosis Pre-operative examination- Primary Preoperative examination, unspecified Bilateral leg edema Edema Pulmonary hypertension (HCC) Other chronic pulmonary heart diseases Primary hypertension Unspecified essential hypertension Mixed hyperlipidemia Obstructive sleep apnea Obstructive sleep apnea (adult) (pediatric) Moderate persistent asthma without complication (HCC) Unspecified asthma Iron deficiency anemia, unspecified iron deficiency anemia type Type 2 diabetes (HCC) Ulcer of left lower extremity, limited to breakdown of skin (HCC) Reactive depression Dysthymic disorder Chronic hepatitis, unspecified (HCC) Chronic hepatitis, unspecified Gastroesophageal reflux disease, unspecified whether esophagitis present Stage 3 chronic kidney disease, unspecified whether stage 3a or 3b CKD (HCC) Anxiety state Anxiety state, unspecified Moderate persistent asthma without complication (HCC) Unspecified asthma [facility]* Diagnosis Pre-operative examination- Primary Preoperative examination, unspecified Bilateral leg edema Edema Pulmonary hypertension (HCC) Other chronic pulmonary heart diseases Primary hypertension Unspecified essential hypertension Mixed hyperlipidemia Obstructive sleep apnea Obstructive sleep apnea (adult) (pediatric) Moderate persistent asthma without complication (HCC) Unspecified asthma Iron deficiency anemia, unspecified iron deficiency anemia type Type 2 diabetes (HCC) Ulcer of left lower extremity, limited to breakdown of skin (HCC) Reactive depression Dysthymic disorder Chronic hepatitis, unspecified (HCC) Chronic hepatitis, unspecified Gastroesophageal reflux disease, unspecified whether esophagitis present Stage 3 chronic kidney disease, unspecified whether stage 3a or 3b CKD (HCC) Incomplete emptying of bladder- Primary Incomplete bladder emptying Type 2 diabetes (HCC) [facility]* Diagnosis Pre-operative examination- Primary Preoperative examination, unspecified Bilateral leg edema Edema Pulmonary hypertension (HCC) Other chronic pulmonary heart diseases Primary hypertension Unspecified essential hypertension Mixed hyperlipidemia Obstructive sleep apnea Obstructive sleep apnea (adult) (pediatric) Moderate persistent asthma without complication (HCC) Unspecified asthma Iron deficiency anemia, unspecified iron deficiency anemia type Type 2 diabetes (HCC) Ulcer of left lower extremity, limited to breakdown of skin (HCC) Reactive depression Dysthymic disorder Chronic hepatitis, unspecified (HCC) Chronic hepatitis, unspecified Gastroesophageal reflux disease, unspecified whether esophagitis present Stage 3 chronic kidney disease, unspecified whether stage 3a or 3b CKD (HCC) Other fatigue- Primary Obstructive sleep apnea Obstructive sleep apnea (adult) (pediatric) Allergic rhinitis, unspecified seasonality, unspecified trigger Type 2 diabetes (HCC) Iron deficiency anemia, unspecified iron deficiency anemia type Vitamin D deficiency Unspecified vitamin D deficiency Class 3 severe obesity due to excess calories with body mass index (BMI) of 50.0 to 59.9 in adult, unspecified whether serious comorbidity present (HCC) Encounter for therapeutic drug monitoring documented in this encounter [facility] note* Diagnosis Pre-operative examination- Primary Preoperative examination, unspecified Bilateral leg edema Edema Pulmonary hypertension (HCC) Other chronic pulmonary heart diseases Primary hypertension Unspecified essential hypertension Mixed hyperlipidemia Obstructive sleep apnea Obstructive sleep apnea (adult) (pediatric) Moderate persistent asthma without complication (HCC) Unspecified asthma Iron deficiency anemia, unspecified iron deficiency anemia type Type 2 diabetes (HCC) Ulcer of left lower extremity, limited to breakdown of skin (HCC) Reactive depression Dysthymic disorder Chronic hepatitis, unspecified (HCC) Chronic hepatitis, unspecified Gastroesophageal reflux disease, unspecified whether esophagitis present Stage 3 chronic kidney disease, unspecified whether stage 3a or 3b CKD (HCC) Iron deficiency anemia, unspecified iron deficiency anemia type- Primary documented in this encounter [facility] note* Diagnosis Pre-operative examination- Primary Preoperative examination, unspecified Bilateral leg edema Edema Pulmonary hypertension (HCC) Other chronic pulmonary heart diseases Primary hypertension Unspecified essential hypertension Mixed hyperlipidemia Obstructive sleep apnea Obstructive sleep apnea (adult) (pediatric) Moderate persistent asthma without complication (HCC) Unspecified asthma Iron deficiency anemia, unspecified iron deficiency anemia type Type 2 diabetes (HCC) Ulcer of left lower extremity, limited to breakdown of skin (HCC) Reactive depression Dysthymic disorder Chronic hepatitis, unspecified (HCC) Chronic hepatitis, unspecified Gastroesophageal reflux disease, unspecified whether esophagitis present Stage 3 chronic kidney disease, unspecified whether stage 3a or 3b CKD (HCC) Anemia, unspecified type- Primary Iron deficiency anemia, unspecified iron deficiency anemia type [facility]* Diagnosis Pre-operative examination- Primary Preoperative examination, unspecified Bilateral leg edema Edema Pulmonary hypertension (HCC) Other chronic pulmonary heart diseases Primary hypertension Unspecified essential hypertension Mixed hyperlipidemia Obstructive sleep apnea Obstructive sleep apnea (adult) (pediatric) Moderate persistent asthma without complication (HCC) Unspecified asthma Iron deficiency anemia, unspecified iron deficiency anemia type Type 2 diabetes (HCC) Ulcer of left lower extremity, limited to breakdown of skin (HCC) Reactive depression Dysthymic disorder Chronic hepatitis, unspecified (HCC) Chronic hepatitis, unspecified Gastroesophageal reflux disease, unspecified whether esophagitis present Stage 3 chronic kidney disease, unspecified whether stage 3a or 3b CKD (HCC) Leg cramp Cramp of limb Muscle spasm Spasm of muscle Primary hypertension Unspecified essential hypertension [facility]* Diagnosis Pre-operative examination- Primary Preoperative examination, unspecified Bilateral leg edema Edema Pulmonary hypertension (HCC) Other chronic pulmonary heart diseases Primary hypertension Unspecified essential hypertension Mixed hyperlipidemia Obstructive sleep apnea Obstructive sleep apnea (adult) (pediatric) Moderate persistent asthma without complication (HCC) Unspecified asthma Iron deficiency anemia, unspecified iron deficiency anemia type Type 2 diabetes (HCC) Ulcer of left lower extremity, limited to breakdown of skin (HCC) Reactive depression Dysthymic disorder Chronic hepatitis, unspecified (HCC) Chronic hepatitis, unspecified Gastroesophageal reflux disease, unspecified whether esophagitis present Stage 3 chronic kidney disease, unspecified whether stage 3a or 3b CKD (HCC) Type 2 diabetes (HCC)- Primary Impaired mobility and activities of daily living Other ill-defined conditions Class 3 severe obesity due to excess calories with body mass index (BMI) of 50.0 to 59.9 in adult, unspecified whether serious comorbidity present (HCC) Iron deficiency anemia, unspecified iron deficiency anemia type Primary hypertension Unspecified essential hypertension [facility]* Diagnosis Pre-operative examination- Primary Preoperative examination, unspecified Bilateral leg edema Edema Pulmonary hypertension (HCC) Other chronic pulmonary heart diseases Primary hypertension Unspecified essential hypertension Mixed hyperlipidemia Obstructive sleep apnea Obstructive sleep apnea (adult) (pediatric) Moderate persistent asthma without complication (HCC) Unspecified asthma Iron deficiency anemia, unspecified iron deficiency anemia type Type 2 diabetes (HCC) Ulcer of left lower extremity, limited to breakdown of skin (HCC) Reactive depression Dysthymic disorder Chronic hepatitis, unspecified (HCC) Chronic hepatitis, unspecified Gastroesophageal reflux disease, unspecified whether esophagitis present Stage 3 chronic kidney disease, unspecified whether stage 3a or 3b CKD (HCC) Type 2 diabetes (HCC) documented [facility]* Diagnosis Pre-operative examination- Primary Preoperative examination, unspecified Bilateral leg edema Edema Pulmonary hypertension (HCC) Other chronic pulmonary heart diseases Primary hypertension Unspecified essential hypertension Mixed hyperlipidemia Obstructive sleep apnea Obstructive sleep apnea (adult) (pediatric) Moderate persistent asthma without complication (HCC) Unspecified asthma Iron deficiency anemia, unspecified iron deficiency anemia type Type 2 diabetes (HCC) Ulcer of left lower extremity, limited to breakdown of skin (HCC) Reactive depression Dysthymic disorder Chronic hepatitis, unspecified (HCC) Chronic hepatitis, unspecified Gastroesophageal reflux disease, unspecified whether esophagitis present Stage 3 chronic kidney disease, unspecified whether stage 3a or 3b CKD (HCC) Moderate persistent asthma without complication (HCC)- Primary Unspecified asthma Hypoxia Hypoxemia documented in this encounter [facility] note* Diagnosis Pre-operative examination- Primary Preoperative examination, unspecified Bilateral leg edema Edema Pulmonary hypertension (HCC) Other chronic pulmonary heart diseases Primary hypertension Unspecified essential hypertension Mixed hyperlipidemia Obstructive sleep apnea Obstructive sleep apnea (adult) (pediatric) Moderate persistent asthma without complication (HCC) Unspecified asthma Iron deficiency anemia, unspecified iron deficiency anemia type Type 2 diabetes (HCC) Ulcer of left lower extremity, limited to breakdown of skin (HCC) Reactive depression Dysthymic disorder Chronic hepatitis, unspecified (HCC) Chronic hepatitis, unspecified Gastroesophageal reflux disease, unspecified whether esophagitis present Stage 3 chronic kidney disease, unspecified whether stage 3a or 3b CKD (HCC) Abdominal pain, left upper quadrant- Primary Left sided abdominal pain Abdominal pain, unspecified site Diarrhea, unspecified type Nausea without vomiting Type 2 diabetes (HCC) Concern about memory [facility]* Diagnosis Pre-operative examination- Primary Preoperative examination, unspecified Bilateral leg edema Edema Pulmonary hypertension (HCC) Other chronic pulmonary heart diseases Primary hypertension Unspecified essential hypertension Mixed hyperlipidemia Obstructive sleep apnea Obstructive sleep apnea (adult) (pediatric) Moderate persistent asthma without complication (HCC) Unspecified asthma Iron deficiency anemia, unspecified iron deficiency anemia type Type 2 diabetes (HCC) Ulcer of left lower extremity, limited to breakdown of skin (HCC) Reactive depression Dysthymic disorder Chronic hepatitis, unspecified (HCC) Chronic hepatitis, unspecified Gastroesophageal reflux disease, unspecified whether esophagitis present Stage 3 chronic kidney disease, unspecified whether stage 3a or 3b CKD (HCC) IgM monoclonal gammopathy of uncertain significance- Primary 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 Low iron Iron deficiency anemia, unspecified Anemia due to folic acid deficiency, unspecified deficiency type [facility]* Diagnosis Pre-operative examination- Primary Preoperative examination, unspecified Bilateral leg edema Edema Pulmonary hypertension (HCC) Other chronic pulmonary heart diseases Primary hypertension Unspecified essential hypertension Mixed hyperlipidemia Obstructive sleep apnea Obstructive sleep apnea (adult) (pediatric) Moderate persistent asthma without complication (HCC) Unspecified asthma Iron deficiency anemia, unspecified iron deficiency anemia type Type 2 diabetes (HCC) Ulcer of left lower extremity, limited to breakdown of skin (HCC) Reactive depression Dysthymic disorder Chronic hepatitis, unspecified (HCC) Chronic hepatitis, unspecified Gastroesophageal reflux disease, unspecified whether esophagitis present Stage 3 chronic kidney disease, unspecified whether stage 3a or 3b CKD (HCC) Obstructive sleep apnea- Primary Obstructive sleep apnea (adult) (pediatric) Primary hypertension Unspecified essential hypertension Type 2 diabetes (HCC) Primary osteoarthritis of both knees Primary localized osteoarthrosis, lower leg Class 3 severe obesity due to excess calories with body mass index (BMI) of 50.0 to 59.9 in adult, unspecified whether serious comorbidity present (HCC) Severe sleep apnea [facility]* Diagnosis Pre-operative examination- Primary Preoperative examination, unspecified Bilateral leg edema Edema Pulmonary hypertension (HCC) Other chronic pulmonary heart diseases Primary hypertension Unspecified essential hypertension Mixed hyperlipidemia Obstructive sleep apnea Obstructive sleep apnea (adult) (pediatric) Moderate persistent asthma without complication (HCC) Unspecified asthma Iron deficiency anemia, unspecified iron deficiency anemia type Type 2 diabetes (HCC) Ulcer of left lower extremity, limited to breakdown of skin (HCC) Reactive depression Dysthymic disorder Chronic hepatitis, unspecified (HCC) Chronic hepatitis, unspecified Gastroesophageal reflux disease, unspecified whether esophagitis present Stage 3 chronic kidney disease, unspecified whether stage 3a or 3b CKD (HCC) Anxiety state Anxiety state, unspecified documented in this encounter [facility] note* Diagnosis Pre-operative examination- Primary Preoperative examination, unspecified Bilateral leg edema Edema Pulmonary hypertension (HCC) Other chronic pulmonary heart diseases Primary hypertension Unspecified essential hypertension Mixed hyperlipidemia Obstructive sleep apnea Obstructive sleep apnea (adult) (pediatric) Moderate persistent asthma without complication (HCC) Unspecified asthma Iron deficiency anemia, unspecified iron deficiency anemia type Type 2 diabetes (HCC) Ulcer of left lower extremity, limited to breakdown of skin (HCC) Reactive depression Dysthymic disorder Chronic hepatitis, unspecified (HCC) Chronic hepatitis, unspecified Gastroesophageal reflux disease, unspecified whether esophagitis present Stage 3 chronic kidney disease, unspecified whether stage 3a or 3b CKD (HCC) Anxiety state Anxiety state, unspecified documented in this encounter [facility] note* Diagnosis Pre-operative examination- Primary Preoperative examination, unspecified Bilateral leg edema Edema Pulmonary hypertension (HCC) Other chronic pulmonary heart diseases Primary hypertension Unspecified essential hypertension Mixed hyperlipidemia Obstructive sleep apnea Obstructive sleep apnea (adult) (pediatric) Moderate persistent asthma without complication (HCC) Unspecified asthma Iron deficiency anemia, unspecified iron deficiency anemia type Type 2 diabetes (HCC) Ulcer of left lower extremity, limited to breakdown of skin (HCC) Reactive depression Dysthymic disorder Chronic hepatitis, unspecified (HCC) Chronic hepatitis, unspecified Gastroesophageal reflux disease, unspecified whether esophagitis present Stage 3 chronic kidney disease, unspecified whether stage 3a or 3b CKD (HCC) Encounter for screening mammogram for breast cancer documented in this encounter [facility] note* Diagnosis Pre-operative examination- Primary Preoperative examination, unspecified Bilateral leg edema Edema Pulmonary hypertension (HCC) Other chronic pulmonary heart diseases Primary hypertension Unspecified essential hypertension Mixed hyperlipidemia Obstructive sleep apnea Obstructive sleep apnea (adult) (pediatric) Moderate persistent asthma without complication (HCC) Unspecified asthma Iron deficiency anemia, unspecified iron deficiency anemia type Type 2 diabetes (HCC) Ulcer of left lower extremity, limited to breakdown of skin (HCC) Reactive depression Dysthymic disorder Chronic hepatitis, unspecified (HCC) Chronic hepatitis, unspecified Gastroesophageal reflux disease, unspecified whether esophagitis present Stage 3 chronic kidney disease, unspecified whether stage 3a or 3b CKD (HCC) Moderate persistent asthma without complication (HCC) Unspecified asthma Leg cramp Cramp of limb Muscle spasm Spasm of muscle Reactive depression Dysthymic disorder Allergic rhinitis, unspecified seasonality, unspecified trigger [facility]* Diagnosis Pre-operative examination- Primary Preoperative examination, unspecified Bilateral leg edema Edema Pulmonary hypertension (HCC) Other chronic pulmonary heart diseases Primary hypertension Unspecified essential hypertension Mixed hyperlipidemia Obstructive sleep apnea Obstructive sleep apnea (adult) (pediatric) Moderate persistent asthma without complication (HCC) Unspecified asthma Iron deficiency anemia, unspecified iron deficiency anemia type Type 2 diabetes (HCC) Ulcer of left lower extremity, limited to breakdown of skin (HCC) Reactive depression Dysthymic disorder Chronic hepatitis, unspecified (HCC) Chronic hepatitis, unspecified Gastroesophageal reflux disease, unspecified whether esophagitis present Stage 3 chronic kidney disease, unspecified whether stage 3a or 3b CKD (HCC) Dysuria- Primary Frequent urinary tract infections documented in this encounter [facility] note* Diagnosis Pre-operative examination- Primary Preoperative examination, unspecified Bilateral leg edema Edema Pulmonary hypertension (HCC) Other chronic pulmonary heart diseases Primary hypertension Unspecified essential hypertension Mixed hyperlipidemia Obstructive sleep apnea Obstructive sleep apnea (adult) (pediatric) Moderate persistent asthma without complication (HCC) Unspecified asthma Iron deficiency anemia, unspecified iron deficiency anemia type Type 2 diabetes (HCC) Ulcer of left lower extremity, limited to breakdown of skin (HCC) Reactive depression Dysthymic disorder Chronic hepatitis, unspecified (HCC) Chronic hepatitis, unspecified Gastroesophageal reflux disease, unspecified whether esophagitis present Stage 3 chronic kidney disease, unspecified whether stage 3a or 3b CKD (HCC) IgM monoclonal gammopathy of uncertain significance- Primary Monoclonal paraproteinemia Anemia, unspecified type documented in this encounter [facility] note* Diagnosis Pre-operative examination- Primary Preoperative examination, unspecified Bilateral leg edema Edema Pulmonary hypertension (HCC) Other chronic pulmonary heart diseases Primary hypertension Unspecified essential hypertension Mixed hyperlipidemia Obstructive sleep apnea Obstructive sleep apnea (adult) (pediatric) Moderate persistent asthma without complication (HCC) Unspecified asthma Iron deficiency anemia, unspecified iron deficiency anemia type Type 2 diabetes (HCC) Ulcer of left lower extremity, limited to breakdown of skin (HCC) Reactive depression Dysthymic disorder Chronic hepatitis, unspecified (HCC) Chronic hepatitis, unspecified Gastroesophageal reflux disease, unspecified whether esophagitis present Stage 3 chronic kidney disease, unspecified whether stage 3a or 3b CKD (HCC) Nonspecific abnormal electrocardiogram (ECG) (EKG)- Primary IgM lambda paraproteinemia Monoclonal paraproteinemia Elevated brain natriuretic peptide (BNP) level Other nonspecific findings on examination of blood Iron malabsorption (HCC) Other specified intestinal malabsorption [facility]* Diagnosis Pre-operative examination- Primary Preoperative examination, unspecified Bilateral leg edema Edema Pulmonary hypertension (HCC) Other chronic pulmonary heart diseases Primary hypertension Unspecified essential hypertension Mixed hyperlipidemia Obstructive sleep apnea Obstructive sleep apnea (adult) (pediatric) Moderate persistent asthma without complication (HCC) Unspecified asthma Iron deficiency anemia, unspecified iron deficiency anemia type Type 2 diabetes (HCC) Ulcer of left lower extremity, limited to breakdown of skin (HCC) Reactive depression Dysthymic disorder Chronic hepatitis, unspecified (HCC) Chronic hepatitis, unspecified Gastroesophageal reflux disease, unspecified whether esophagitis present Stage 3 chronic kidney disease, unspecified whether stage 3a or 3b CKD (HCC) IgM monoclonal gammopathy of uncertain significance- Primary Monoclonal paraproteinemia Elevated brain natriuretic peptide (BNP) level Other nonspecific findings on examination of blood Nonspecific abnormal electrocardiogram (ECG) (EKG) documented in this encounter [facility] note* Diagnosis Pre-operative examination- Primary Preoperative examination, unspecified Bilateral leg edema Edema Pulmonary hypertension (HCC) Other chronic pulmonary heart diseases Primary hypertension Unspecified essential hypertension Mixed hyperlipidemia Obstructive sleep apnea Obstructive sleep apnea (adult) (pediatric) Moderate persistent asthma without complication (HCC) Unspecified asthma Iron deficiency anemia, unspecified iron deficiency anemia type Type 2 diabetes (HCC) Ulcer of left lower extremity, limited to breakdown of skin (HCC) Reactive depression Dysthymic disorder Chronic hepatitis, unspecified (HCC) Chronic hepatitis, unspecified Gastroesophageal reflux disease, unspecified whether esophagitis present Stage 3 chronic kidney disease, unspecified whether stage 3a or 3b CKD (HCC) Iron malabsorption (HCC)- Primary Other specified intestinal malabsorption Anemia associated with stage 3 chronic renal failure (HCC) documented in this encounter [facility] note* Diagnosis Pre-operative examination- Primary Preoperative examination, unspecified Bilateral leg edema Edema Pulmonary hypertension (HCC) Other chronic pulmonary heart diseases Primary hypertension Unspecified essential hypertension Mixed hyperlipidemia Obstructive sleep apnea Obstructive sleep apnea (adult) (pediatric) Moderate persistent asthma without complication (HCC) Unspecified asthma Iron deficiency anemia, unspecified iron deficiency anemia type Type 2 diabetes (HCC) Ulcer of left lower extremity, limited to breakdown of skin (HCC) Reactive depression Dysthymic disorder Chronic hepatitis, unspecified (HCC) Chronic hepatitis, unspecified Gastroesophageal reflux disease, unspecified whether esophagitis present Stage 3 chronic kidney disease, unspecified whether stage 3a or 3b CKD (HCC) Iron malabsorption (HCC)- Primary Other specified intestinal malabsorption Anemia associated with stage 3 chronic renal failure (HCC) documented in this encounter [facility] Dis[facility] Work Phone: Progress note No data available for this section [facility] Reason for referral (narrative)* Diagnostic Procedure Only (Routine) - Pending Review Specialty Diagnoses / Procedures Referred By Contac t Referred To Contact US IMAGING Diagnoses Peripheral vascular disease, unspecified (HCC) Procedures US ARTERIAL PVR LOWER NON-INVASIVE PHYSIOLOGIC STUDY EXTREMITY 3 Matt Stewart MD [address] [place] [address] Us Imaging Referral ID Status Reason Start Date Expiration Date Visits Requested Visits Authorized [id number] Pending Review Auto-Generat ed Referral 07/17/2021 08/16/2022 1 1 [facility] for referral (narrative)* Diagnostic Procedure Only (Routine) - Pending Review Specialty Diagnoses / Procedures Referred By Contac t Referred To Contact XR IMAGING Diagnoses Pain in both knees, unspecified chronicity Procedures XR KNEE GENERAL 4V AP BOTH/PA BOTH/LAT/MERC BILATERAL RADIOLOGIC EXAM KNEE COMPLETE 4/MORE VIEWS Shine Mendoza MD [address] [place] [address] Xr Imaging Referral ID Status Reason Start Date Expiration Date Visits Requested Visits Authorized [id number] Pending Review Auto-Generat ed Referral 07/26/2021 08/25/2022 1 1 T [facility] for referral (narrative)* Diagnostic Procedure Only (Routine) - Pending Review Specialty Diagnoses / Procedures Referred By Contac t Referred To Contact BR IMAGING Diagnoses Encounter for screening mammogram for breast cancer Procedures NITO SCREENING SCREENING MAMMOGRAPHY [place] 2-[place] [address] [place] [address] [facility] [address] [place] [address] Referral ID Status Reason Start Date Expiration Date Visits Requested Visits Authorized [id number] Pending Review Auto-Generat ed Referral 08/22/2021 09/21/2022 1 1 [facility] for referral (narrative)* Outpatient Procedure (Routine) - Additional Clinical Info Needed Specialty Diagnoses / Procedures Referred By Contac t Referred To Contact [facility] Diagnoses Pre-operative examination Procedures ECHO ECHO TTHRC R-T 2D W/WOM-MODE COMPL SPEC&COLR Daphne Catherine APRN.[employer] [address] [place] [address] [facility] [address] [place] [address] Referral ID Status Reason Start Date Expiration Date Visits Requested Visits Authorized [id number] Additional Clinical Info Needed Auto-Generat ed Referral 08/07/2022 08/07/2023 1 1 [facility] for referral (narrative)* Diagnostic Procedure Only (Routine) - Pending Review Specialty Diagnoses / Procedures Referred By Almita t Referred To Contact BR IMAGING Diagnoses Encounter for screening mammogram for breast cancer Procedures NITO SCREENING SCREENING MAMMOGRAPHY BI 2-VIEW BREAST INC CAD Erica Cannon MD [address] [place] [address] [facility] [address] [place] [address] Referral ID Status Reason Start Date Expiration Date Visits Requested Visits Authorized [id number] Pending Review Auto-Generat ed Referral 07/09/2023 08/07/2024 1 1 [facility] for referral (narrative)* Diagnostic Procedure Only (Routine) - New Request Specialty Diagnoses / Procedures Referred By Contlouisa t Referred To Contact BR IMAGING Diagnoses Encounter for screening mammogram for breast cancer Procedures NITO SCREENING W NISHANT SCREENING DIGITAL BREAST TOMOSYNTHESIS BI SCREENING MAMMOGRAPHY BI 2-VIEW BREAST INC CAD Jame Castañeda MD [address] [place] [address] [facility] [address] [place] [address] Referral ID Status Reason Start Date Expiration Date Visits Requested Visits Authorized [id number] New Request Auto-Generat ed Referral 10/08/2023 11/06/2024 1 1 [facility] for referral (narrative)* Outpatient Procedure (Routine) - New Request Specialty Diagnoses / Procedures Referred By Almita hyman Referred To [facility] Diagnoses Moderate persistent asthma without complication On supplemental oxygen therapy Obstructive sleep apnea Pulmonary hypertension (HCC) Procedures SIX MINUTE WALK CARDIOPULMONARY EXERCISE STRESS Silvestre Jain APRN.CNP [address] [place] [address] [facility] [address] [place] [address] Referral ID Status Reason Start Date Expiration Date Visits Requested Visits Authorized [id number] New Request Auto-Generat ed Referral 11/05/2023 12/04/2024 1 1 [facility] for referral (narrative)No reason for referral information availableMargaret Mary [facility] Services Work Phone: Summary Purpose Family History No Family History Records Found Relationship Condition Age at Onset Recorded Date/T julianna Unknown Family History?Heart Disease Unknown July 31, 2015 6:44pm Family History?Heart Disease Unknown July 31, 2015 6:44pm Relationship Condition Age at Onset Recorded Date/T julianna Not Specified Diabetes mellitus Unknown Cardiac disease Unknown Hypertension Unknown Advance Directives No Advanced Directives Records Found Advance Directive Response Recorded Date/ Time Advance Directives No January 2:07pm Living Will No February 21 016 2:07pm Power of Solar [employer] Engineer No February 22, 2016 2:07pm Advance Directive Response Recorded Date/ Time Advance Directives No January 2:07pm Living Will No July 31, 2021 5 :47pm [employer] of [employer] No July 31, 2021 5:47pm Advance Directive Response Recorded Date/ Time Advance Directives No January 2:07pm Living Will No November 18, 2021 7:15pm Power of [employer] No October 7:15pm Advance Directive Response Recorded Date/ Time Advance Directives No January 2:07pm Living Will No November 18, 2021 10:20pm Power of Solar Mechanical Engineer No October 10:20pm Advance Directive Response Recorded Date/ Time Name of Medical Power of Solar Mechanical Engineer [facility] November 29, 2021 7:13am Advance Directives No January 2:07pm Living Will Yes November 29 7:13am Power of Solar Mechanical Engineer Yes November 29 7:13am Advance Directive Response Recorded Date/ Time Advance Directives No January 2:07pm Living Will No August 14, 2022 6:22pm Power of Solar Mechanical Engineer No August 14 6:22pm Advance Directive Response Recorded Date/ Time Name of Medical Power of Solar Mechanical Engineer [facility] August 14, 2022 10:20pm Advance Directives No January 2:07pm Living Will Yes August 14, 2022 10:20pm Power of Solar Mechanical Engineer Yes August 14 10:20pm Advance Directive Response Recorded Date/ Time Advance Directives No January 2:07pm Chief Complaint and Reason for Visit Chief Complaint WEAKNESS AND DEBILIT Y Reason for Visit Weakness Chief Complaint WEAKNESS AND DEBILIT Y WEAKNESS AND DEBILITY WEAKNESS AND DEBILITY WEAKNESS AND DEBILITY WEAKNESS AND DEBILITY WEAKNESS AND DEBILITY WEAKNESS AND DEBILITY WEAKNESS AND DEBILITY WEAKNESS AND DEBILITY WEAKNESS AND DEBILITY WEAKNESS AND DEBILITY WEAKNESS AND DEBILITY WEAKNESS AND DEBILITY WEAKNESS AND DEBILITY WEAKNESS AND DEBILITY WEAKNESS AND DEBILITY WEAKNESS AND DEBILITY WEAKNESS AND DEBILITY WEAKNESS AND DEBILITY WEAKNESS AND DEBILITY WEAKNESS AND DEBILITY WEAKNESS AND DEBILITY WEAKNESS AND DEBILITY WEAKNESS AND DEBILITY Reason for Visit Elevated serum creat inine Iron deficiency anemia Obesity due to excess calories with serious comorbidity Obesity hypoventilation syndrome Weakness Asthma Chief Complaint WEAKNESS AND DEBILIT Y WEAKNESS AND DEBILITY WEAKNESS AND DEBILITY WEAKNESS AND DEBILITY WEAKNESS AND DEBILITY WEAKNESS AND DEBILITY WEAKNESS AND DEBILITY WEAKNESS AND DEBILITY WEAKNESS AND DEBILITY WEAKNESS AND DEBILITY WEAKNESS AND DEBILITY WEAKNESS AND DEBILITY WEAKNESS AND DEBILITY WEAKNESS AND DEBILITY WEAKNESS AND DEBILITY WEAKNESS AND DEBILITY WEAKNESS AND DEBILITY WEAKNESS AND DEBILITY WEAKNESS AND DEBILITY WEAKNESS AND DEBILITY WEAKNESS AND DEBILITY WEAKNESS AND DEBILITY WEAKNESS AND DEBILITY WEAKNESS AND DEBILITY UPPER EXTREMITY LORNE, HYPERKALEMIA Reason for Visit Iron deficiency anem ia Obesity due to excess calories with serious comorbidity Obesity hypoventilation syndrome Weakness Asthma Elevated serum creatinine Acute hyperkalemia LORNE (acute kidney injury) Bradycardia Generalized weakness History of diabetes mellitus Hyperkalemia Obesity hypoventilation syndrome Unable to ambulate Chronic anemia Chronic respiratory insufficiency Chief Complaint WEAKNESS AND DEBILIT Y WEAKNESS AND DEBILITY WEAKNESS AND DEBILITY WEAKNESS AND DEBILITY WEAKNESS AND DEBILITY WEAKNESS AND DEBILITY WEAKNESS AND DEBILITY WEAKNESS AND DEBILITY WEAKNESS AND DEBILITY WEAKNESS AND DEBILITY WEAKNESS AND DEBILITY WEAKNESS AND DEBILITY WEAKNESS AND DEBILITY WEAKNESS AND DEBILITY WEAKNESS AND DEBILITY WEAKNESS AND DEBILITY WEAKNESS AND DEBILITY WEAKNESS AND DEBILITY WEAKNESS AND DEBILITY WEAKNESS AND DEBILITY WEAKNESS AND DEBILITY WEAKNESS AND DEBILITY WEAKNESS AND DEBILITY WEAKNESS AND DEBILITY UPPER EXTREMITY LORNE, HYPERKALEMIA LORNE, HYPERKALEMIA LORNE, HYPERKALEMIA LORNE, HYPERKALEMIA Reason for Visit Iron deficiency anem ia Obesity due to excess calories with serious comorbidity Obesity hypoventilation syndrome Weakness Asthma Elevated serum creatinine Acute hyperkalemia LORNE (acute kidney injury) Bradycardia Generalized weakness History of diabetes mellitus Hyperkalemia Obesity due to excess calories with serious comorbidity Obesity hypoventilation syndrome Unable to ambulate Chronic anemia Chronic pain Chronic respiratory insufficiency Chief Complaint WEAKNESS AND DEBILIT Y WEAKNESS AND DEBILITY WEAKNESS AND DEBILITY WEAKNESS AND DEBILITY WEAKNESS AND DEBILITY WEAKNESS AND DEBILITY WEAKNESS AND DEBILITY WEAKNESS AND DEBILITY WEAKNESS AND DEBILITY WEAKNESS AND DEBILITY WEAKNESS AND DEBILITY WEAKNESS AND DEBILITY WEAKNESS AND DEBILITY WEAKNESS AND DEBILITY WEAKNESS AND DEBILITY WEAKNESS AND DEBILITY WEAKNESS AND DEBILITY WEAKNESS AND DEBILITY WEAKNESS AND DEBILITY WEAKNESS AND DEBILITY WEAKNESS AND DEBILITY WEAKNESS AND DEBILITY WEAKNESS AND DEBILITY WEAKNESS AND DEBILITY UPPER EXTREMITY LORNE, HYPERKALEMIA LORNE, HYPERKALEMIA [place], HYPERKALEMIA L[place], HYPERKALEMIA LORNE, HYPERKALEMIA SUSPECTED DVT Reason for Visit Iron deficiency anem ia Obesity due to excess calories with serious comorbidity Obesity hypoventilation syndrome Weakness Asthma Elevated serum creatinine History of diabetes mellitus Obesity due to excess calories with serious comorbidity Obesity hypoventilation syndrome Unable to ambulate Chronic anemia Chronic pain Chronic respiratory insufficiency Acute hyperkalemia LORNE (acute kidney injury) Bradycardia Generalized weakness Hyperkalemia Chief Complaint ACUTE DIARRHEA, LORNE Reason for Visit Acute renal failure Asymptomatic bacteriuria Gastroenteritis Hypokalemia Chief Complaint ACUTE DIARRHEA, LORNE ACUTE DIARRHEA, LORNE ACUTE DIARRHEA, LORNE ACUTE DIARRHEA, LORNE ACUTE DIARRHEA, LORNE ACUTE DIARRHEA, LORNE ACUTE DIARRHEA, LORNE ACUTE DIARRHEA, LORNE Reason for Visit Acute renal failure Asymptomatic bacteriuria Diarrhea Epigastric abdominal pain Gastroenteritis History of diabetes mellitus Hypokalemia LUQ pain Obesity hypoventilation syndrome Chief Complaint Admit Date MED CHECK July 16, 2024 10:24 am bilateral knees November 01, 2024 11:18am Reason for Visit Admit Date LUQ pain July 16, 2024 10:24 am Reason for Referral Specialty Diagnoses / Procedures Referred By Contac t Referred To Contact CT IMAGING Diagnoses Left lower quadrant abdominal pain Diverticulitis Procedures CT ABD/PEL WO IVCON CT ABD & PELVIS W/O CONTRAST Silvestre Jain APRN.[employer] [address] [place] [address] [address] [address] [facility] [place] [address] Referral ID Status Reason Start Date Expiration Date Visits Requested Visits Authorized [id number] Pending Review Auto-Generat ed Referral 11/06/2023 12/05/2024 1 1 Specialty Diagnoses / Procedures Referred By Contac t Referred To Contact Silvester Jain APRN.[employer] [facility] [place] [address] Referral ID Status Reason Start Date Expiration Date Visits Re quested Visits Authorized [id number] Closed 1 1 Specialty Diagnoses / Procedures Referred By Contac t Referred To Contact Gynecology Diagnoses Pelvic pain Procedures CONSULT TO GYNECOLOGY OFFICE/OUTPATIENT [facility] 60-74 MINUTES Silvestre Jain APRN.[employer] [facility] [place] [address] Referral ID Status Reason Start Date Expiration Date Visits Requested Visits Authorized [id number] Authorized PCP Requested Referral Auto-Generate d Referral 01/01/2023 01/01/2024 1 1 Specialty Diagnoses / Procedures Referred By Contac t Referred To Contact [facility] Diagnoses Pelvic pain Procedures PELVIC US WHI US PELVIC NONOBSTETRIC REAL-TIME IMAGE COMPLETE Silvestre Jain APRN.[employer] [address] [place] [address] [address] Referral ID Status Reason Start Date Expiration Date Visits Requested Visits Authorized [id number] Pending Review Auto-Generat ed Referral 01/01/2023 01/01/2024 1 1 Specialty Diagnoses / Procedures Referred By Contac t Referred To Contact [facility] Diagnoses Decreased mobility Procedures CONSULT TO PHYSICAL THERAPY PHYSICAL THERAPY EVALUATION HIGH COMPLEX 45 MINS Silvestre Jain APRN.[employer] [address] [place] [address] [facility] [address] [address] Referral ID Status Reason Start Date Expiration Date Visits Requested Visits Authorized [id number] Pending Review Auto-Generat ed Referral 11/05/2022 11/05/2023 1 1 Specialty Diagnoses / Procedures Referred By Contac t Referred To Contact Nutrition Diagnoses Type 2 diabetes (HCC) Procedures CONSULT TO NUTRITION THERAPY MEDICAL NUTRITION ASSMT&IVNTJ INDIV EACH 15 [place] MEDICAL NUTRITION ASSMT&IVNTJ INDIV EACH 15 [place] MEDICAL NUTRITION ASSMT&IVNTJ INDIV EACH 15 [place] MEDICAL NUTRITION ASSMT&IVNTJ INDIV EACH 15 [place] Erica Cannon MD [address] [place] [address] Referral ID Status Reason Start Date Expiration Date Visits Requested Visits Authorized [id number] Authorized PCP Requested Referral 10/25/2022 10/25/2023 1 1 Specialty Diagnoses / Procedures Referred By Contac t Referred To Contact CT IMAGING Diagnoses Nausea Procedures CT ABD/PEL WO IVCON CT ABD & PELVIS W/O CONTRAST Katya Oliva APRN.[employer] [address] [place] [address] Ct Imaging Referral ID Status Reason Start Date Expiration Date Visits Requested Visits Authorized [id number] Pending Review Auto-Generat ed Referral 08/14/2022 09/13/2023 1 1 Specialty Diagnoses / Procedures Referred By Contac t Referred To Contact Gastroenterology Diagnoses Diarrhea, unspecified type Abdominal cramping Procedures CONSULT TO GASTROENTEROLOGY OFFICE/OUTPATIENT [facility] 60-74 MINUTES Katya Oliva APRN.[employer] [address] [place] [address] Referral ID Status Reason Start Date Expiration Date Visits Requested Visits Authorized [id number] Authorized PCP Requested Referral 08/14/2022 08/14/2023 1 1 Specialty Diagnoses / Procedures Referred By Contac t Referred To Contact Lydia North APRN.TRANSCRIPTION TYPIST [address] [place] [address] Referral ID Status Reason Start Date Expiration Date Visits Re quested Visits Authorized [id number] Closed 1 1 Specialty Diagnoses / Procedures Referred By Contac t Referred To Contact Nutrition Diagnoses Type 2 diabetes (HCC) Morbid obesity (HCC) Procedures CONSULT TO NUTRITION THERAPY MEDICAL NUTRITION ASSMT&IVNTJ INDIV EACH 15 [place] MEDICAL NUTRITION ASSMT&IVNTJ INDIV EACH 15 [place] MEDICAL NUTRITION ASSMT&IVNTJ INDIV EACH 15 [place] MEDICAL NUTRITION ASSMT&IVNTJ INDIV EACH 15 [place] Silvestre Jain APRN.[employer] [address] [place] [address] Referral ID Status Reason Start Date Expiration Date Visits Requested Visits Authorized [id number] Authorized PCP Requested Referral 05/03/2022 05/03/2023 1 1 Specialty Diagnoses / Procedures Referred By Contac t Referred To Contact Ophthalmology Diagnoses Bacterial conjunctivitis of left eye Procedures CONSULT TO OPHTHALMOLOGY OFFICE/OUTPATIENT [facility] 60-74 MINUTES Lydia North APRN.TRANSCRIPTION TYPIST [address] [place] [address] Referral ID Status Reason Start Date Expiration Date Visits Requested Visits Authorized [id number] Authorized PCP Requested Referral 04/04/2022 04/04/2023 1 1 Specialty Diagnoses / Procedures Referred By Contac t Referred To Contact Diagnoses Type 2 diabetes (HCC) Silvestre Jain APRN.[employer] [address] [place] [address] Referral ID Status Reason Start Date Expiration Date Visits Re quested Visits Authorized [id number] Closed 1 1 Medications Administered Section Administered Medications Medication Order MAR Action Action Date Dose Rate Site tuberculin skin test (TST-PPD), purified protein derivative, intradermal Given 08/16/2021 0.1 ml tuberculin skin test (TST-PPD), purified protein derivative, intradermal Given 08/26/2021 0.1 ml tuberculin skin test (TST-PPD), purified protein derivative, intradermal Given 11/20/2021 0.1 ml Additional Source Comments INFORMATION SOURCE (unrecogn ized section and content) DATE CREATED AUTHOR 08/28/2017 [facility] DATE CREATED AUTHOR AUTHOR'S ORGANIZ ATION 07/22/2021 [facility] DATE CREATED AUTHOR AUTHOR'S ORGANIZ ATION [facility]20[facility] DATE CREATED AUTHOR AUTHOR'S ORGANIZ ATION 12/04/2024 [facility] DATE CREATED AUTHOR AUTHOR'S ORGANIZ ATION 12/11/2024 [facility] Source Comments (unrecognize d section and content) In the event this informatio n is protected by the Federal Confidentiality of Alcohol and Drug Abuse Patient Records regulations: The Federal rules restrict any use of the information to criminally investigate or prosecute any alcohol or drug abuse patient.[facility] the event this information is protected by the Federal Confidentiality of Alcohol and Drug Abuse Patient Records regulations: The Federal rules restrict any use of the information to criminally investigate or prosecute any alcohol or drug abuse patient.[facility] Hospital[facility] the event this information is protected by the Federal Confidentiality of Alcohol and Drug Abuse Patient Records regulations: The Federal rules restrict any use of the information to criminally investigate or prosecute any alcohol or drug abuse patient.[facility] Hospital[facility] the event this information is protected by the Federal Confidentiality of Alcohol and Drug Abuse Patient Records regulations: The Federal rules restrict any use of the information to criminally investigate or prosecute any alcohol or drug abuse patient.[facility] HospitalIn the event this information is protected by the Federal Confidentiality of Alcohol and Drug Abuse Patient Records regulations: The Federal rules restrict any use of the information to criminally investigate or prosecute any alcohol or drug abuse patient.[facility] HospitalIn the event this information is protected by the Federal Confidentiality of Alcohol and Drug Abuse Patient Records regulations: The Federal rules restrict any use of the information to criminally investigate or prosecute any alcohol or drug abuse patient.[facility] HospitalIn the event this information is protected by the Federal Confidentiality of Alcohol and Drug Abuse Patient Records regulations: The Federal rules restrict any use of the information to criminally investigate or prosecute any alcohol or drug abuse patient.[facility] HospitalIn the event this information is protected by the Federal Confidentiality of Alcohol and Drug Abuse Patient Records regulations: The Federal rules restrict any use of the information to criminally investigate or prosecute any alcohol or drug abuse patient.[facility] HospitalIn the event this information is protected by the Federal Confidentiality of Alcohol and Drug Abuse Patient Records regulations: The Federal rules restrict any use of the information to criminally investigate or prosecute any alcohol or drug abuse patient.[facility] HospitalIn the event this information is protected by the Federal Confidentiality of Alcohol and Drug Abuse Patient Records regulations: The Federal rules restrict any use of the information to criminally investigate or prosecute any alcohol or drug abuse patient.[facility] HospitalIn the event this information is protected by the Federal Confidentiality of Alcohol and Drug Abuse Patient Records regulations: The Federal rules restrict any use of the information to criminally investigate or prosecute any alcohol or drug abuse patient.[facility] HospitalIn the event this information is protected by the Federal Confidentiality of Alcohol and Drug Abuse Patient Records regulations: The Federal rules restrict any use of the information to criminally investigate or prosecute any alcohol or drug abuse patient.[facility] HospitalIn the event this information is protected by the Federal Confidentiality of Alcohol and Drug Abuse Patient Records regulations: The Federal rules restrict any use of the information to criminally investigate or prosecute any alcohol or drug abuse patient.[facility] HospitalIn the event this information is protected by the Federal Confidentiality of Alcohol and Drug Abuse Patient Records regulations: The Federal rules restrict any use of the information to criminally investigate or prosecute any alcohol or drug abuse patient.[facility] HospitalIn the event this information is protected by the Federal Confidentiality of Alcohol and Drug Abuse Patient Records regulations: The Federal rules restrict any use of the information to criminally investigate or prosecute any alcohol or drug abuse patient.[facility] HospitalIn the event this information is protected by the Federal Confidentiality of Alcohol and Drug Abuse Patient Records regulations: The Federal rules restrict any use of the information to criminally investigate or prosecute any alcohol or drug abuse patient.[facility] HospitalIn the event this information is protected by the Federal Confidentiality of Alcohol and Drug Abuse Patient Records regulations: The Federal rules restrict any use of the information to criminally investigate or prosecute any alcohol or drug abuse patient.[facility] HospitalIn the event this information is protected by the Federal Confidentiality of Alcohol and Drug Abuse Patient Records regulations: The Federal rules restrict any use of the information to criminally investigate or prosecute any alcohol or drug abuse patient.[facility] HospitalIn the event this information is protected by the Federal Confidentiality of Alcohol and Drug Abuse Patient Records regulations: The Federal rules restrict any use of the information to criminally investigate or prosecute any alcohol or drug abuse patient.[facility] HospitalIn the event this information is protected by the Federal Confidentiality of Alcohol and Drug Abuse Patient Records regulations: The Federal rules restrict any use of the information to criminally investigate or prosecute any alcohol or drug abuse patient.[facility] HospitalIn the event this information is protected by the Federal Confidentiality of Alcohol and Drug Abuse Patient Records regulations: The Federal rules restrict any use of the information to criminally investigate or prosecute any alcohol or drug abuse patient.[facility] HospitalIn the event this information is protected by the Federal Confidentiality of Alcohol and Drug Abuse Patient Records regulations: The Federal rules restrict any use of the information to criminally investigate or prosecute any alcohol or drug abuse patient.[facility] HospitalIn the event this information is protected by the Federal Confidentiality of Alcohol and Drug Abuse Patient Records regulations: The Federal rules restrict any use of the information to criminally investigate or prosecute any alcohol or drug abuse patient.[facility] HospitalIn the event this information is protected by the Federal Confidentiality of Alcohol and Drug Abuse Patient Records regulations: The Federal rules restrict any use of the information to criminally investigate or prosecute any alcohol or drug abuse patient.[facility] HospitalIn the event this information is protected by the Federal Confidentiality of Alcohol and Drug Abuse Patient Records regulations: The Federal rules restrict any use of the information to criminally investigate or prosecute any alcohol or drug abuse patient.[facility] HospitalIn the event this information is protected by the Federal Confidentiality of Alcohol and Drug Abuse Patient Records regulations: The Federal rules restrict any use of the information to criminally investigate or prosecute any alcohol or drug abuse patient.[facility] HospitalIn the event this information is protected by the Federal Confidentiality of Alcohol and Drug Abuse Patient Records regulations: The Federal rules restrict any use of the information to criminally investigate or prosecute any alcohol or drug abuse patient.[facility] HospitalIn the event this information is protected by the Federal Confidentiality of Alcohol and Drug Abuse Patient Records regulations: The Federal rules restrict any use of the information to criminally investigate or prosecute any alcohol or drug abuse patient.[facility] HospitalIn the event this information is protected by the Federal Confidentiality of Alcohol and Drug Abuse Patient Records regulations: The Federal rules restrict any use of the information to criminally investigate or prosecute any alcohol or drug abuse patient.[facility] HospitalIn the event this information is protected by the Federal Confidentiality of Alcohol and Drug Abuse Patient Records regulations: The Federal rules restrict any use of the information to criminally investigate or prosecute any alcohol or drug abuse patient.[facility] HospitalIn the event this information is protected by the Federal Confidentiality of Alcohol and Drug Abuse Patient Records regulations: The Federal rules restrict any use of the information to criminally investigate or prosecute any alcohol or drug abuse patient.[facility] HospitalIn the event this information is protected by the Federal Confidentiality of Alcohol and Drug Abuse Patient Records regulations: The Federal rules restrict any use of the information to criminally investigate or prosecute any alcohol or drug abuse patient.[facility] HospitalIn the event this information is protected by the Federal Confidentiality of Alcohol and Drug Abuse Patient Records regulations: The Federal rules restrict any use of the information to criminally investigate or prosecute any alcohol or drug abuse patient.[facility] HospitalIn the event this information is protected by the Federal Confidentiality of Alcohol and Drug Abuse Patient Records regulations: The Federal rules restrict any use of the information to criminally investigate or prosecute any alcohol or drug abuse patient.[facility] HospitalIn the event this information is protected by the Federal Confidentiality of Alcohol and Drug Abuse Patient Records regulations: The Federal rules restrict any use of the information to criminally investigate or prosecute any alcohol or drug abuse patient.[facility] HospitalIn the event this information is protected by the Federal Confidentiality of Alcohol and Drug Abuse Patient Records regulations: The Federal rules restrict any use of the information to criminally investigate or prosecute any alcohol or drug abuse patient.[facility] HospitalIn the event this information is protected by the Federal Confidentiality of Alcohol and Drug Abuse Patient Records regulations: The Federal rules restrict any use of the information to criminally investigate or prosecute any alcohol or drug abuse patient.[facility] HospitalIn the event this information is protected by the Federal Confidentiality of Alcohol and Drug Abuse Patient Records regulations: The Federal rules restrict any use of the information to criminally investigate or prosecute any alcohol or drug abuse patient.[facility] HospitalIn the event this information is protected by the Federal Confidentiality of Alcohol and Drug Abuse Patient Records regulations: The Federal rules restrict any use of the information to criminally investigate or prosecute any alcohol or drug abuse patient.[facility] HospitalIn the event this information is protected by the Federal Confidentiality of Alcohol and Drug Abuse Patient Records regulations: The Federal rules restrict any use of the information to criminally investigate or prosecute any alcohol or drug abuse patient.[facility] HospitalIn the event this information is protected by the Federal Confidentiality of Alcohol and Drug Abuse Patient Records regulations: The Federal rules restrict any use of the information to criminally investigate or prosecute any alcohol or drug abuse patient.[facility] HospitalIn the event this information is protected by the Federal Confidentiality of Alcohol and Drug Abuse Patient Records regulations: The Federal rules restrict any use of the information to criminally investigate or prosecute any alcohol or drug abuse patient.[facility] HospitalIn the event this information is protected by the Federal Confidentiality of Alcohol and Drug Abuse Patient Records regulations: The Federal rules restrict any use of the information to criminally investigate or prosecute any alcohol or drug abuse patient.[facility] HospitalIn the event this information is protected by the Federal Confidentiality of Alcohol and Drug Abuse Patient Records regulations: The Federal rules restrict any use of the information to criminally investigate or prosecute any alcohol or drug abuse patient.[facility] HospitalIn the event this information is protected by the Federal Confidentiality of Alcohol and Drug Abuse Patient Records regulations: The Federal rules restrict any use of the information to criminally investigate or prosecute any alcohol or drug abuse patient.[facility] HospitalIn the event this information is protected by the Federal Confidentiality of Alcohol and Drug Abuse Patient Records regulations: The Federal rules restrict any use of the information to criminally investigate or prosecute any alcohol or drug abuse patient.[facility] HospitalIn the event this information is protected by the Federal Confidentiality of Alcohol and Drug Abuse Patient Records regulations: The Federal rules restrict any use of the information to criminally investigate or prosecute any alcohol or drug abuse patient.[facility] HospitalIn the event this information is protected by the Federal Confidentiality of Alcohol and Drug Abuse Patient Records regulations: The Federal rules restrict any use of the information to criminally investigate or prosecute any alcohol or drug abuse patient.[facility] HospitalIn the event this information is protected by the Federal Confidentiality of Alcohol and Drug Abuse Patient Records regulations: The Federal rules restrict any use of the information to criminally investigate or prosecute any alcohol or drug abuse patient.[facility] HospitalIn the event this information is protected by the Federal Confidentiality of Alcohol and Drug Abuse Patient Records regulations: The Federal rules restrict any use of the information to criminally investigate or prosecute any alcohol or drug abuse patient.[facility] HospitalIn the event this information is protected by the Federal Confidentiality of Alcohol and Drug Abuse Patient Records regulations: The Federal rules restrict any use of the information to criminally investigate or prosecute any alcohol or drug abuse patient.[facility] HospitalIn the event this information is protected by the Federal Confidentiality of Alcohol and Drug Abuse Patient Records regulations: The Federal rules restrict any use of the information to criminally investigate or prosecute any alcohol or drug abuse patient.[facility] HospitalIn the event this information is protected by the Federal Confidentiality of Alcohol and Drug Abuse Patient Records regulations: The Federal rules restrict any use of the information to criminally investigate or prosecute any alcohol or drug abuse patient.[facility] HospitalIn the event this information is protected by the Federal Confidentiality of Alcohol and Drug Abuse Patient Records regulations: The Federal rules restrict any use of the information to criminally investigate or prosecute any alcohol or drug abuse patient.[facility] HospitalIn the event this information is protected by the Federal Confidentiality of Alcohol and Drug Abuse Patient Records regulations: The Federal rules restrict any use of the information to criminally investigate or prosecute any alcohol or drug abuse patient.[facility] HospitalIn the event this information is protected by the Federal Confidentiality of Alcohol and Drug Abuse Patient Records regulations: The Federal rules restrict any use of the information to criminally investigate or prosecute any alcohol or drug abuse patient.[facility] HospitalIn the event this information is protected by the Federal Confidentiality of Alcohol and Drug Abuse Patient Records regulations: The Federal rules restrict any use of the information to criminally investigate or prosecute any alcohol or drug abuse patient.[facility] HospitalIn the event this information is protected by the Federal Confidentiality of Alcohol and Drug Abuse Patient Records regulations: The Federal rules restrict any use of the information to criminally investigate or prosecute any alcohol or drug abuse patient.[facility] HospitalIn the event this information is protected by the Federal Confidentiality of Alcohol and Drug Abuse Patient Records regulations: The Federal rules restrict any use of the information to criminally investigate or prosecute any alcohol or drug abuse patient.[facility] HospitalIn the event this information is protected by the Federal Confidentiality of Alcohol and Drug Abuse Patient Records regulations: The Federal rules restrict any use of the information to criminally investigate or prosecute any alcohol or drug abuse patient.[facility] HospitalIn the event this information is protected by the Federal Confidentiality of Alcohol and Drug Abuse Patient Records regulations: The Federal rules restrict any use of the information to criminally investigate or prosecute any alcohol or drug abuse patient.[facility] HospitalIn the event this information is protected by the Federal Confidentiality of Alcohol and Drug Abuse Patient Records regulations: The Federal rules restrict any use of the information to criminally investigate or prosecute any alcohol or drug abuse patient.[facility] HospitalIn the event this information is protected by the Federal Confidentiality of Alcohol and Drug Abuse Patient Records regulations: The Federal rules restrict any use of the information to criminally investigate or prosecute any alcohol or drug abuse patient.[facility] HospitalIn the event this information is protected by the Federal Confidentiality of Alcohol and Drug Abuse Patient Records regulations: The Federal rules restrict any use of the information to criminally investigate or prosecute any alcohol or drug abuse patient.[facility] HospitalIn the event this information is protected by the Federal Confidentiality of Alcohol and Drug Abuse Patient Records regulations: The Federal rules restrict any use of the information to criminally investigate or prosecute any alcohol or drug abuse patient.[facility] HospitalIn the event this information is protected by the Federal Confidentiality of Alcohol and Drug Abuse Patient Records regulations: The Federal rules restrict any use of the information to criminally investigate or prosecute any alcohol or drug abuse patient.[facility] HospitalIn the event this information is protected by the Federal Confidentiality of Alcohol and Drug Abuse Patient Records regulations: The Federal rules restrict any use of the information to criminally investigate or prosecute any alcohol or drug abuse patient.[facility] HospitalIn the event this information is protected by the Federal Confidentiality of Alcohol and Drug Abuse Patient Records regulations: The Federal rules restrict any use of the information to criminally investigate or prosecute any alcohol or drug abuse patient.[facility] HospitalIn the event this information is protected by the Federal Confidentiality of Alcohol and Drug Abuse Patient Records regulations: The Federal rules restrict any use of the information to criminally investigate or prosecute any alcohol or drug abuse patient.[facility] HospitalIn the event this information is protected by the Federal Confidentiality of Alcohol and Drug Abuse Patient Records regulations: The Federal rules restrict any use of the information to criminally investigate or prosecute any alcohol or drug abuse patient.[facility] HospitalIn the event this information is protected by the Federal Confidentiality of Alcohol and Drug Abuse Patient Records regulations: The Federal rules restrict any use of the information to criminally investigate or prosecute any alcohol or drug abuse patient.[facility] HospitalIn the event this information is protected by the Federal Confidentiality of Alcohol and Drug Abuse Patient Records regulations: The Federal rules restrict any use of the information to criminally investigate or prosecute any alcohol or drug abuse patient.[facility] HospitalIn the event this information is protected by the Federal Confidentiality of Alcohol and Drug Abuse Patient Records regulations: The Federal rules restrict any use of the information to criminally investigate or prosecute any alcohol or drug abuse patient.[facility] HospitalIn the event this information is protected by the Federal Confidentiality of Alcohol and Drug Abuse Patient Records regulations: The Federal rules restrict any use of the information to criminally investigate or prosecute any alcohol or drug abuse patient.[facility] HospitalIn the event this information is protected by the Federal Confidentiality of Alcohol and Drug Abuse Patient Records regulations: The Federal rules restrict any use of the information to criminally investigate or prosecute any alcohol or drug abuse patient.[facility] HospitalIn the event this information is protected by the Federal Confidentiality of Alcohol and Drug Abuse Patient Records regulations: The Federal rules restrict any use of the information to criminally investigate or prosecute any alcohol or drug abuse patient.[facility] HospitalIn the event this information is protected by the Federal Confidentiality of Alcohol and Drug Abuse Patient Records regulations: The Federal rules restrict any use of the information to criminally investigate or prosecute any alcohol or drug abuse patient.[facility] HospitalIn the event this information is protected by the Federal Confidentiality of Alcohol and Drug Abuse Patient Records regulations: The Federal rules restrict any use of the information to criminally investigate or prosecute any alcohol or drug abuse patient.[facility] HospitalIn the event this information is protected by the Federal Confidentiality of Alcohol and Drug Abuse Patient Records regulations: The Federal rules restrict any use of the information to criminally investigate or prosecute any alcohol or drug abuse patient.[facility] HospitalIn the event this information is protected by the Federal Confidentiality of Alcohol and Drug Abuse Patient Records regulations: The Federal rules restrict any use of the information to criminally investigate or prosecute any alcohol or drug abuse patient.[facility] HospitalIn the event this information is protected by the Federal Confidentiality of Alcohol and Drug Abuse Patient Records regulations: The Federal rules restrict any use of the information to criminally investigate or prosecute any alcohol or drug abuse patient.[facility] HospitalIn the event this information is protected by the Federal Confidentiality of Alcohol and Drug Abuse Patient Records regulations: The Federal rules restrict any use of the information to criminally investigate or prosecute any alcohol or drug abuse patient.[facility] HospitalIn the event this information is protected by the Federal Confidentiality of Alcohol and Drug Abuse Patient Records regulations: The Federal rules restrict any use of the information to criminally investigate or prosecute any alcohol or drug abuse patient.[facility] HospitalIn the event this information is protected by the Federal Confidentiality of Alcohol and Drug Abuse Patient Records regulations: The Federal rules restrict any use of the information to criminally investigate or prosecute any alcohol or drug abuse patient.[facility] HospitalIn the event this information is protected by the Federal Confidentiality of Alcohol and Drug Abuse Patient Records regulations: The Federal rules restrict any use of the information to criminally investigate or prosecute any alcohol or drug abuse patient.[facility] HospitalIn the event this information is protected by the Federal Confidentiality of Alcohol and Drug Abuse Patient Records regulations: The Federal rules restrict any use of the information to criminally investigate or prosecute any alcohol or drug abuse patient.[facility] HospitalIn the event this information is protected by the Federal Confidentiality of Alcohol and Drug Abuse Patient Records regulations: The Federal rules restrict any use of the information to criminally investigate or prosecute any alcohol or drug abuse patient.[facility] HospitalIn the event this information is protected by the Federal Confidentiality of Alcohol and Drug Abuse Patient Records regulations: The Federal rules restrict any use of the information to criminally investigate or prosecute any alcohol or drug abuse patient.[facility] HospitalIn the event this information is protected by the Federal Confidentiality of Alcohol and Drug Abuse Patient Records regulations: The Federal rules restrict any use of the information to criminally investigate or prosecute any alcohol or drug abuse patient.[facility] HospitalIn the event this information is protected by the Federal Confidentiality of Alcohol and Drug Abuse Patient Records regulations: The Federal rules restrict any use of the information to criminally investigate or prosecute any alcohol or drug abuse patient.[facility] HospitalIn the event this information is protected by the Federal Confidentiality of Alcohol and Drug Abuse Patient Records regulations: The Federal rules restrict any use of the information to criminally investigate or prosecute any alcohol or drug abuse patient.[facility] HospitalIn the event this information is protected by the Federal Confidentiality of Alcohol and Drug Abuse Patient Records regulations: The Federal rules restrict any use of the information to criminally investigate or prosecute any alcohol or drug abuse patient.[facility] HospitalIn the event this information is protected by the Federal Confidentiality of Alcohol and Drug Abuse Patient Records regulations: The Federal rules restrict any use of the information to criminally investigate or prosecute any alcohol or drug abuse patient.[facility] HospitalIn the event this information is protected by the Federal Confidentiality of Alcohol and Drug Abuse Patient Records regulations: The Federal rules restrict any use of the information to criminally investigate or prosecute any alcohol or drug abuse patient.[facility] HospitalIn the event this information is protected by the Federal Confidentiality of Alcohol and Drug Abuse Patient Records regulations: The Federal rules restrict any use of the information to criminally investigate or prosecute any alcohol or drug abuse patient.[facility] HospitalIn the event this information is protected by the Federal Confidentiality of Alcohol and Drug Abuse Patient Records regulations: The Federal rules restrict any use of the information to criminally investigate or prosecute any alcohol or drug abuse patient.[facility] HospitalIn the event this information is protected by the Federal Confidentiality of Alcohol and Drug Abuse Patient Records regulations: The Federal rules restrict any use of the information to criminally investigate or prosecute any alcohol or drug abuse patient.[facility] HospitalIn the event this information is protected by the Federal Confidentiality of Alcohol and Drug Abuse Patient Records regulations: The Federal rules restrict any use of the information to criminally investigate or prosecute any alcohol or drug abuse patient.[facility] HospitalIn the event this information is protected by the Federal Confidentiality of Alcohol and Drug Abuse Patient Records regulations: The Federal rules restrict any use of the information to criminally investigate or prosecute any alcohol or drug abuse patient.[facility] HospitalIn the event this information is protected by the Federal Confidentiality of Alcohol and Drug Abuse Patient Records regulations: The Federal rules restrict any use of the information to criminally investigate or prosecute any alcohol or drug abuse patient.[facility] HospitalIn the event this information is protected by the Federal Confidentiality of Alcohol and Drug Abuse Patient Records regulations: The Federal rules restrict any use of the information to criminally investigate or prosecute any alcohol or drug abuse patient.[facility] HospitalIn the event this information is protected by the Federal Confidentiality of Alcohol and Drug Abuse Patient Records regulations: The Federal rules restrict any use of the information to criminally investigate or prosecute any alcohol or drug abuse patient.[facility] HospitalIn the event this information is protected by the Federal Confidentiality of Alcohol and Drug Abuse Patient Records regulations: The Federal rules restrict any use of the information to criminally investigate or prosecute any alcohol or drug abuse patient.[facility] HospitalIn the event this information is protected by the Federal Confidentiality of Alcohol and Drug Abuse Patient Records regulations: The Federal rules restrict any use of the information to criminally investigate or prosecute any alcohol or drug abuse patient.[facility] HospitalIn the event this information is protected by the Federal Confidentiality of Alcohol and Drug Abuse Patient Records regulations: The Federal rules restrict any use of the information to criminally investigate or prosecute any alcohol or drug abuse patient.[facility]In the event this information is protected by the Federal Confidentiality of Alcohol and Drug Abuse Patient Records regulations: The Federal rules restrict any use of the information to criminally investigate or prosecute any alcohol or drug abuse patient.[facility] HospitalIn the event this information is protected by the Federal Confidentiality of Alcohol and Drug Abuse Patient Records regulations: The Federal rules restrict any use of the information to criminally investigate or prosecute any alcohol or drug abuse patient.[facility] HospitalIn the event this information is protected by the Federal Confidentiality of Alcohol and Drug Abuse Patient Records regulations: The Federal rules restrict any use of the information to criminally investigate or prosecute any alcohol or drug abuse patient.[facility] HospitalIn the event this information is protected by the Federal Confidentiality of Alcohol and Drug Abuse Patient Records regulations: The Federal rules restrict any use of the information to criminally investigate or prosecute any alcohol or drug abuse patient.[facility] HospitalIn the event this information is protected by the Federal Confidentiality of Alcohol and Drug Abuse Patient Records regulations: The Federal rules restrict any use of the information to criminally investigate or prosecute any alcohol or drug abuse patient.[facility] HospitalIn the event this information is protected by the Federal Confidentiality of Alcohol and Drug Abuse Patient Records regulations: The Federal rules restrict any use of the information to criminally investigate or prosecute any alcohol or drug abuse patient.[facility] HospitalIn the event this information is protected by the Federal Confidentiality of Alcohol and Drug Abuse Patient Records regulations: The Federal rules restrict any use of the information to criminally investigate or prosecute any alcohol or drug abuse patient.[facility] HospitalIn the event this information is protected by the Federal Confidentiality of Alcohol and Drug Abuse Patient Records regulations: The Federal rules restrict any use of the information to criminally investigate or prosecute any alcohol or drug abuse patient.[facility] HospitalIn the event this information is protected by the Federal Confidentiality of Alcohol and Drug Abuse Patient Records regulations: The Federal rules restrict any use of the information to criminally investigate or prosecute any alcohol or drug abuse patient.[facility] HospitalIn the event this information is protected by the Federal Confidentiality of Alcohol and Drug Abuse Patient Records regulations: The Federal rules restrict any use of the information to criminally investigate or prosecute any alcohol or drug abuse patient.[facility] HospitalIn the event this information is protected by the Federal Confidentiality of Alcohol and Drug Abuse Patient Records regulations: The Federal rules restrict any use of the information to criminally investigate or prosecute any alcohol or drug abuse patient.[facility] HospitalIn the event this information is protected by the Federal Confidentiality of Alcohol and Drug Abuse Patient Records regulations: The Federal rules restrict any use of the information to criminally investigate or prosecute any alcohol or drug abuse patient.[facility] HospitalIn the event this information is protected by the Federal Confidentiality of Alcohol and Drug Abuse Patient Records regulations: The Federal rules restrict any use of the information to criminally investigate or prosecute any alcohol or drug abuse patient.[facility] HospitalIn the event this information is protected by the Federal Confidentiality of Alcohol and Drug Abuse Patient Records regulations: The Federal rules restrict any use of the information to criminally investigate or prosecute any alcohol or drug abuse patient.[facility] HospitalIn the event this information is protected by the Federal Confidentiality of Alcohol and Drug Abuse Patient Records regulations: The Federal rules restrict any use of the information to criminally investigate or prosecute any alcohol or drug abuse patient.[facility] HospitalIn the event this information is protected by the Federal Confidentiality of Alcohol and Drug Abuse Patient Records regulations: The Federal rules restrict any use of the information to criminally investigate or prosecute any alcohol or drug abuse patient.[facility] HospitalIn the event this information is protected by the Federal Confidentiality of Alcohol and Drug Abuse Patient Records regulations: The Federal rules restrict any use of the information to criminally investigate or prosecute any alcohol or drug abuse patient.[facility] HospitalIn the event this information is protected by the Federal Confidentiality of Alcohol and Drug Abuse Patient Records regulations: The Federal rules restrict any use of the information to criminally investigate or prosecute any alcohol or drug abuse patient.[facility] HospitalIn the event this information is protected by the Federal Confidentiality of Alcohol and Drug Abuse Patient Records regulations: The Federal rules restrict any use of the information to criminally investigate or prosecute any alcohol or drug abuse patient.[facility] HospitalIn the event this information is protected by the Federal Confidentiality of Alcohol and Drug Abuse Patient Records regulations: The Federal rules restrict any use of the information to criminally investigate or prosecute any alcohol or drug abuse patient.[facility] HospitalIn the event this information is protected by the Federal Confidentiality of Alcohol and Drug Abuse Patient Records regulations: The Federal rules restrict any use of the information to criminally investigate or prosecute any alcohol or drug abuse patient.[facility] HospitalIn the event this information is protected by the Federal Confidentiality of Alcohol and Drug Abuse Patient Records regulations: The Federal rules restrict any use of the information to criminally investigate or prosecute any alcohol or drug abuse patient.[facility] HospitalIn the event this information is protected by the Federal Confidentiality of Alcohol and Drug Abuse Patient Records regulations: The Federal rules restrict any use of the information to criminally investigate or prosecute any alcohol or drug abuse patient.[facility] HospitalIn the event this information is protected by the Federal Confidentiality of Alcohol and Drug Abuse Patient Records regulations: The Federal rules restrict any use of the information to criminally investigate or prosecute any alcohol or drug abuse patient.[facility] HospitalIn the event this information is protected by the Federal Confidentiality of Alcohol and Drug Abuse Patient Records regulations: The Federal rules restrict any use of the information to criminally investigate or prosecute any alcohol or drug abuse patient.[facility] HospitalIn the event this information is protected by the Federal Confidentiality of Alcohol and Drug Abuse Patient Records regulations: The Federal rules restrict any use of the information to criminally investigate or prosecute any alcohol or drug abuse patient.[facility] HospitalIn the event this information is protected by the Federal Confidentiality of Alcohol and Drug Abuse Patient Records regulations: The Federal rules restrict any use of the information to criminally investigate or prosecute any alcohol or drug abuse patient.[facility] HospitalIn the event this information is protected by the Federal Confidentiality of Alcohol and Drug Abuse Patient Records regulations: The Federal rules restrict any use of the information to criminally investigate or prosecute any alcohol or drug abuse patient.[facility] HospitalIn the event this information is protected by the Federal Confidentiality of Alcohol and Drug Abuse Patient Records regulations: The Federal rules restrict any use of the information to criminally investigate or prosecute any alcohol or drug abuse patient.[facility] HospitalIn the event this information is protected by the Federal Confidentiality of Alcohol and Drug Abuse Patient Records regulations: The Federal rules restrict any use of the information to criminally investigate or prosecute any alcohol or drug abuse patient.[facility] HospitalIn the event this information is protected by the Federal Confidentiality of Alcohol and Drug Abuse Patient Records regulations: The Federal rules restrict any use of the information to criminally investigate or prosecute any alcohol or drug abuse patient.[facility] HospitalIn the event this information is protected by the Federal Confidentiality of Alcohol and Drug Abuse Patient Records regulations: The Federal rules restrict any use of the information to criminally investigate or prosecute any alcohol or drug abuse patient.[facility] HospitalIn the event this information is protected by the Federal Confidentiality of Alcohol and Drug Abuse Patient Records regulations: The Federal rules restrict any use of the information to criminally investigate or prosecute any alcohol or drug abuse patient.[facility] HospitalIn the event this information is protected by the Federal Confidentiality of Alcohol and Drug Abuse Patient Records regulations: The Federal rules restrict any use of the information to criminally investigate or prosecute any alcohol or drug abuse patient.[facility] HospitalIn the event this information is protected by the Federal Confidentiality of Alcohol and Drug Abuse Patient Records regulations: The Federal rules restrict any use of the information to criminally investigate or prosecute any alcohol or drug abuse patient.[facility] HospitalIn the event this information is protected by the Federal Confidentiality of Alcohol and Drug Abuse Patient Records regulations: The Federal rules restrict any use of the information to criminally investigate or prosecute any alcohol or drug abuse patient.[facility] HospitalIn the event this information is protected by the Federal Confidentiality of Alcohol and Drug Abuse Patient Records regulations: The Federal rules restrict any use of the information to criminally investigate or prosecute any alcohol or drug abuse patient.[facility] HospitalIn the event this information is protected by the Federal Confidentiality of Alcohol and Drug Abuse Patient Records regulations: The Federal rules restrict any use of the information to criminally investigate or prosecute any alcohol or drug abuse patient.[facility] HospitalIn the event this information is protected by the Federal Confidentiality of Alcohol and Drug Abuse Patient Records regulations: The Federal rules restrict any use of the information to criminally investigate or prosecute any alcohol or drug abuse patient.[facility] HospitalIn the event this information is protected by the Federal Confidentiality of Alcohol and Drug Abuse Patient Records regulations: The Federal rules restrict any use of the information to criminally investigate or prosecute any alcohol or drug abuse patient.[facility] HospitalIn the event this information is protected by the Federal Confidentiality of Alcohol and Drug Abuse Patient Records regulations: The Federal rules restrict any use of the information to criminally investigate or prosecute any alcohol or drug abuse patient.[facility] HospitalIn the event this information is protected by the Federal Confidentiality of Alcohol and Drug Abuse Patient Records regulations: The Federal rules restrict any use of the information to criminally investigate or prosecute any alcohol or drug abuse patient.[facility] HospitalIn the event this information is protected by the Federal Confidentiality of Alcohol and Drug Abuse Patient Records regulations: The Federal rules restrict any use of the information to criminally investigate or prosecute any alcohol or drug abuse patient.[facility] HospitalIn the event this information is protected by the Federal Confidentiality of Alcohol and Drug Abuse Patient Records regulations: The Federal rules restrict any use of the information to criminally investigate or prosecute any alcohol or drug abuse patient.[facility] HospitalIn the event this information is protected by the Federal Confidentiality of Alcohol and Drug Abuse Patient Records regulations: The Federal rules restrict any use of the information to criminally investigate or prosecute any alcohol or drug abuse patient.[facility] HospitalIn the event this information is protected by the Federal Confidentiality of Alcohol and Drug Abuse Patient Records regulations: The Federal rules restrict any use of the information to criminally investigate or prosecute any alcohol or drug abuse patient.[facility] HospitalIn the event this information is protected by the Federal Confidentiality of Alcohol and Drug Abuse Patient Records regulations: The Federal rules restrict any use of the information to criminally investigate or prosecute any alcohol or drug abuse patient.[facility] HospitalIn the event this information is protected by the Federal Confidentiality of Alcohol and Drug Abuse Patient Records regulations: The Federal rules restrict any use of the information to criminally investigate or prosecute any alcohol or drug abuse patient.[facility] HospitalIn the event this information is protected by the Federal Confidentiality of Alcohol and Drug Abuse Patient Records regulations: The Federal rules restrict any use of the information to criminally investigate or prosecute any alcohol or drug abuse patient.[facility] HospitalIn the event this information is protected by the Federal Confidentiality of Alcohol and Drug Abuse Patient Records regulations: The Federal rules restrict any use of the information to criminally investigate or prosecute any alcohol or drug abuse patient.[facility] HospitalIn the event this information is protected by the Federal Confidentiality of Alcohol and Drug Abuse Patient Records regulations: The Federal rules restrict any use of the information to criminally investigate or prosecute any alcohol or drug abuse patient.[facility] HospitalIn the event this information is protected by the Federal Confidentiality of Alcohol and Drug Abuse Patient Records regulations: The Federal rules restrict any use of the information to criminally investigate or prosecute any alcohol or drug abuse patient.[facility] HospitalIn the event this information is protected by the Federal Confidentiality of Alcohol and Drug Abuse Patient Records regulations: The Federal rules restrict any use of the information to criminally investigate or prosecute any alcohol or drug abuse patient.[facility] HospitalIn the event this information is protected by the Federal Confidentiality of Alcohol and Drug Abuse Patient Records regulations: The Federal rules restrict any use of the information to criminally investigate or prosecute any alcohol or drug abuse patient.[facility] HospitalIn the event this information is protected by the Federal Confidentiality of Alcohol and Drug Abuse Patient Records regulations: The Federal rules restrict any use of the information to criminally investigate or prosecute any alcohol or drug abuse patient.[facility] HospitalIn the event this information is protected by the Federal Confidentiality of Alcohol and Drug Abuse Patient Records regulations: The Federal rules restrict any use of the information to criminally investigate or prosecute any alcohol or drug abuse patient.[facility] HospitalIn the event this information is protected by the Federal Confidentiality of Alcohol and Drug Abuse Patient Records regulations: The Federal rules restrict any use of the information to criminally investigate or prosecute any alcohol or drug abuse patient.[facility] HospitalIn the event this information is protected by the Federal Confidentiality of Alcohol and Drug Abuse Patient Records regulations: The Federal rules restrict any use of the information to criminally investigate or prosecute any alcohol or drug abuse patient.[facility] HospitalIn the event this information is protected by the Federal Confidentiality of Alcohol and Drug Abuse Patient Records regulations: The Federal rules restrict any use of the information to criminally investigate or prosecute any alcohol or drug abuse patient.[facility] HospitalIn the event this information is protected by the Federal Confidentiality of Alcohol and Drug Abuse Patient Records regulations: The Federal rules restrict any use of the information to criminally investigate or prosecute any alcohol or drug abuse patient.[facility] HospitalIn the event this information is protected by the Federal Confidentiality of Alcohol and Drug Abuse Patient Records regulations: The Federal rules restrict any use of the information to criminally investigate or prosecute any alcohol or drug abuse patient.[facility] HospitalIn the event this information is protected by the Federal Confidentiality of Alcohol and Drug Abuse Patient Records regulations: The Federal rules restrict any use of the information to criminally investigate or prosecute any alcohol or drug abuse patient.[facility] HospitalIn the event this information is protected by the Federal Confidentiality of Alcohol and Drug Abuse Patient Records regulations: The Federal rules restrict any use of the information to criminally investigate or prosecute any alcohol or drug abuse patient.[facility] HospitalIn the event this information is protected by the Federal Confidentiality of Alcohol and Drug Abuse Patient Records regulations: The Federal rules restrict any use of the information to criminally investigate or prosecute any alcohol or drug abuse patient.[facility] HospitalIn the event this information is protected by the Federal Confidentiality of Alcohol and Drug Abuse Patient Records regulations: The Federal rules restrict any use of the information to criminally investigate or prosecute any alcohol or drug abuse patient.[facility] HospitalIn the event this information is protected by the Federal Confidentiality of Alcohol and Drug Abuse Patient Records regulations: The Federal rules restrict any use of the information to criminally investigate or prosecute any alcohol or drug abuse patient.[facility] HospitalIn the event this information is protected by the Federal Confidentiality of Alcohol and Drug Abuse Patient Records regulations: The Federal rules restrict any use of the information to criminally investigate or prosecute any alcohol or drug abuse patient.[facility] HospitalIn the event this information is protected by the Federal Confidentiality of Alcohol and Drug Abuse Patient Records regulations: The Federal rules restrict any use of the information to criminally investigate or prosecute any alcohol or drug abuse patient.[facility] HospitalIn the event this information is protected by the Federal Confidentiality of Alcohol and Drug Abuse Patient Records regulations: The Federal rules restrict any use of the information to criminally investigate or prosecute any alcohol or drug abuse patient.[facility] HospitalIn the event this information is protected by the Federal Confidentiality of Alcohol and Drug Abuse Patient Records regulations: The Federal rules restrict any use of the information to criminally investigate or prosecute any alcohol or drug abuse patient.[facility] HospitalIn the event this information is protected by the Federal Confidentiality of Alcohol and Drug Abuse Patient Records regulations: The Federal rules restrict any use of the information to criminally investigate or prosecute any alcohol or drug abuse patient.[facility] HospitalIn the event this information is protected by the Federal Confidentiality of Alcohol and Drug Abuse Patient Records regulations: The Federal rules restrict any use of the information to criminally investigate or prosecute any alcohol or drug abuse patient.[facility] HospitalIn the event this information is protected by the Federal Confidentiality of Alcohol and Drug Abuse Patient Records regulations: The Federal rules restrict any use of the information to criminally investigate or prosecute any alcohol or drug abuse patient.[facility] HospitalIn the event this information is protected by the Federal Confidentiality of Alcohol and Drug Abuse Patient Records regulations: The Federal rules restrict any use of the information to criminally investigate or prosecute any alcohol or drug abuse patient.[facility] HospitalIn the event this information is protected by the Federal Confidentiality of Alcohol and Drug Abuse Patient Records regulations: The Federal rules restrict any use of the information to criminally investigate or prosecute any alcohol or drug abuse patient.[facility] HospitalIn the event this information is protected by the Federal Confidentiality of Alcohol and Drug Abuse Patient Records regulations: The Federal rules restrict any use of the information to criminally investigate or prosecute any alcohol or drug abuse patient.[facility] HospitalIn the event this information is protected by the Federal Confidentiality of Alcohol and Drug Abuse Patient Records regulations: The Federal rules restrict any use of the information to criminally investigate or prosecute any alcohol or drug abuse patient.[facility] HospitalIn the event this information is protected by the Federal Confidentiality of Alcohol and Drug Abuse Patient Records regulations: The Federal rules restrict any use of the information to criminally investigate or prosecute any alcohol or drug abuse patient.[facility] HospitalIn the event this information is protected by the Federal Confidentiality of Alcohol and Drug Abuse Patient Records regulations: The Federal rules restrict any use of the information to criminally investigate or prosecute any alcohol or drug abuse patient.[facility] HospitalIn the event this information is protected by the Federal Confidentiality of Alcohol and Drug Abuse Patient Records regulations: The Federal rules restrict any use of the information to criminally investigate or prosecute any alcohol or drug abuse patient.[facility] HospitalIn the event this information is protected by the Federal Confidentiality of Alcohol and Drug Abuse Patient Records regulations: The Federal rules restrict any use of the information to criminally investigate or prosecute any alcohol or drug abuse patient.[facility] HospitalIn the event this information is protected by the Federal Confidentiality of Alcohol and Drug Abuse Patient Records regulations: The Federal rules restrict any use of the information to criminally investigate or prosecute any alcohol or drug abuse patient.[facility] HospitalIn the event this information is protected by the Federal Confidentiality of Alcohol and Drug Abuse Patient Records regulations: The Federal rules restrict any use of the information to criminally investigate or prosecute any alcohol or drug abuse patient.[facility] HospitalIn the event this information is protected by the Federal Confidentiality of Alcohol and Drug Abuse Patient Records regulations: The Federal rules restrict any use of the information to criminally investigate or prosecute any alcohol or drug abuse patient.[facility] HospitalIn the event this information is protected by the Federal Confidentiality of Alcohol and Drug Abuse Patient Records regulations: The Federal rules restrict any use of the information to criminally investigate or prosecute any alcohol or drug abuse patient.[facility] HospitalIn the event this information is protected by the Federal Confidentiality of Alcohol and Drug Abuse Patient Records regulations: The Federal rules restrict any use of the information to criminally investigate or prosecute any alcohol or drug abuse patient.[facility] HospitalIn the event this information is protected by the Federal Confidentiality of Alcohol and Drug Abuse Patient Records regulations: The Federal rules restrict any use of the information to criminally investigate or prosecute any alcohol or drug abuse patient.[facility] HospitalIn the event this information is protected by the Federal Confidentiality of Alcohol and Drug Abuse Patient Records regulations: The Federal rules restrict any use of the information to criminally investigate or prosecute any alcohol or drug abuse patient.[facility] HospitalIn the event this information is protected by the Federal Confidentiality of Alcohol and Drug Abuse Patient Records regulations: The Federal rules restrict any use of the information to criminally investigate or prosecute any alcohol or drug abuse patient.[facility] HospitalIn the event this information is protected by the Federal Confidentiality of Alcohol and Drug Abuse Patient Records regulations: The Federal rules restrict any use of the information to criminally investigate or prosecute any alcohol or drug abuse patient.[facility] HospitalIn the event this information is protected by the Federal Confidentiality of Alcohol and Drug Abuse Patient Records regulations: The Federal rules restrict any use of the information to criminally investigate or prosecute any alcohol or drug abuse patient.[facility] HospitalIn the event this information is protected by the Federal Confidentiality of Alcohol and Drug Abuse Patient Records regulations: The Federal rules restrict any use of the information to criminally investigate or prosecute any alcohol or drug abuse patient.[facility] HospitalIn the event this information is protected by the Federal Confidentiality of Alcohol and Drug Abuse Patient Records regulations: The Federal rules restrict any use of the information to criminally investigate or prosecute any alcohol or drug abuse patient.[facility] HospitalIn the event this information is protected by the Federal Confidentiality of Alcohol and Drug Abuse Patient Records regulations: The Federal rules restrict any use of the information to criminally investigate or prosecute any alcohol or drug abuse patient.[facility] HospitalIn the event this information is protected by the Federal Confidentiality of Alcohol and Drug Abuse Patient Records regulations: The Federal rules restrict any use of the information to criminally investigate or prosecute any alcohol or drug abuse patient.[facility] HospitalIn the event this information is protected by the Federal Confidentiality of Alcohol and Drug Abuse Patient Records regulations: The Federal rules restrict any use of the information to criminally investigate or prosecute any alcohol or drug abuse patient.[facility] HospitalIn the event this information is protected by the Federal Confidentiality of Alcohol and Drug Abuse Patient Records regulations: The Federal rules restrict any use of the information to criminally investigate or prosecute any alcohol or drug abuse patient.[facility] HospitalIn the event this information is protected by the Federal Confidentiality of Alcohol and Drug Abuse Patient Records regulations: The Federal rules restrict any use of the information to criminally investigate or prosecute any alcohol or drug abuse patient.[facility] HospitalIn the event this information is protected by the Federal Confidentiality of Alcohol and Drug Abuse Patient Records regulations: The Federal rules restrict any use of the information to criminally investigate or prosecute any alcohol or drug abuse patient.[facility] HospitalIn the event this information is protected by the Federal Confidentiality of Alcohol and Drug Abuse Patient Records regulations: The Federal rules restrict any use of the information to criminally investigate or prosecute any alcohol or drug abuse patient.[facility] HospitalIn the event this information is protected by the Federal Confidentiality of Alcohol and Drug Abuse Patient Records regulations: The Federal rules restrict any use of the information to criminally investigate or prosecute any alcohol or drug abuse patient.[facility] HospitalIn the event this information is protected by the Federal Confidentiality of Alcohol and Drug Abuse Patient Records regulations: The Federal rules restrict any use of the information to criminally investigate or prosecute any alcohol or drug abuse patient.[facility] HospitalIn the event this information is protected by the Federal Confidentiality of Alcohol and Drug Abuse Patient Records regulations: The Federal rules restrict any use of the information to criminally investigate or prosecute any alcohol or drug abuse patient.[facility] HospitalIn the event this information is protected by the Federal Confidentiality of Alcohol and Drug Abuse Patient Records regulations: The Federal rules restrict any use of the information to criminally investigate or prosecute any alcohol or drug abuse patient.[facility] HospitalIn the event this information is protected by the Federal Confidentiality of Alcohol and Drug Abuse Patient Records regulations: The Federal rules restrict any use of the information to criminally investigate or prosecute any alcohol or drug abuse patient.[facility] HospitalIn the event this information is protected by the Federal Confidentiality of Alcohol and Drug Abuse Patient Records regulations: The Federal rules restrict any use of the information to criminally investigate or prosecute any alcohol or drug abuse patient.[facility] HospitalIn the event this information is protected by the Federal Confidentiality of Alcohol and Drug Abuse Patient Records regulations: The Federal rules restrict any use of the information to criminally investigate or prosecute any alcohol or drug abuse patient.[facility] HospitalIn the event this information is protected by the Federal Confidentiality of Alcohol and Drug Abuse Patient Records regulations: The Federal rules restrict any use of the information to criminally investigate or prosecute any alcohol or drug abuse patient.[facility] HospitalIn the event this information is protected by the Federal Confidentiality of Alcohol and Drug Abuse Patient Records regulations: The Federal rules restrict any use of the information to criminally investigate or prosecute any alcohol or drug abuse patient.[facility] HospitalIn the event this information is protected by the Federal Confidentiality of Alcohol and Drug Abuse Patient Records regulations: The Federal rules restrict any use of the information to criminally investigate or prosecute any alcohol or drug abuse patient.[facility] HospitalIn the event this information is protected by the Federal Confidentiality of Alcohol and Drug Abuse Patient Records regulations: The Federal rules restrict any use of the information to criminally investigate or prosecute any alcohol or drug abuse patient.[facility] HospitalIn the event this information is protected by the Federal Confidentiality of Alcohol and Drug Abuse Patient Records regulations: The Federal rules restrict any use of the information to criminally investigate or prosecute any alcohol or drug abuse patient.[facility] HospitalIn the event this information is protected by the Federal Confidentiality of Alcohol and Drug Abuse Patient Records regulations: The Federal rules restrict any use of the information to criminally investigate or prosecute any alcohol or drug abuse patient.[facility] HospitalIn the event this information is protected by the Federal Confidentiality of Alcohol and Drug Abuse Patient Records regulations: The Federal rules restrict any use of the information to criminally investigate or prosecute any alcohol or drug abuse patient.[facility] HospitalIn the event this information is protected by the Federal Confidentiality of Alcohol and Drug Abuse Patient Records regulations: The Federal rules restrict any use of the information to criminally investigate or prosecute any alcohol or drug abuse patient.[facility] HospitalIn the event this information is protected by the Federal Confidentiality of Alcohol and Drug Abuse Patient Records regulations: The Federal rules restrict any use of the information to criminally investigate or prosecute any alcohol or drug abuse patient.[facility] HospitalIn the event this information is protected by the Federal Confidentiality of Alcohol and Drug Abuse Patient Records regulations: The Federal rules restrict any use of the information to criminally investigate or prosecute any alcohol or drug abuse patient.[facility] HospitalIn the event this information is protected by the Federal Confidentiality of Alcohol and Drug Abuse Patient Records regulations: The Federal rules restrict any use of the information to criminally investigate or prosecute any alcohol or drug abuse patient.[facility] HospitalIn the event this information is protected by the Federal Confidentiality of Alcohol and Drug Abuse Patient Records regulations: The Federal rules restrict any use of the information to criminally investigate or prosecute any alcohol or drug abuse patient.[facility] HospitalIn the event this information is protected by the Federal Confidentiality of Alcohol and Drug Abuse Patient Records regulations: The Federal rules restrict any use of the information to criminally investigate or prosecute any alcohol or drug abuse patient.[facility] HospitalIn the event this information is protected by the Federal Confidentiality of Alcohol and Drug Abuse Patient Records regulations: The Federal rules restrict any use of the information to criminally investigate or prosecute any alcohol or drug abuse patient.[facility] HospitalIn the event this information is protected by the Federal Confidentiality of Alcohol and Drug Abuse Patient Records regulations: The Federal rules restrict any use of the information to criminally investigate or prosecute any alcohol or drug abuse patient.[facility] HospitalIn the event this information is protected by the Federal Confidentiality of Alcohol and Drug Abuse Patient Records regulations: The Federal rules restrict any use of the information to criminally investigate or prosecute any alcohol or drug abuse patient.[facility] HospitalIn the event this information is protected by the Federal Confidentiality of Alcohol and Drug Abuse Patient Records regulations: The Federal rules restrict any use of the information to criminally investigate or prosecute any alcohol or drug abuse patient.[facility] HospitalIn the event this information is protected by the Federal Confidentiality of Alcohol and Drug Abuse Patient Records regulations: The Federal rules restrict any use of the information to criminally investigate or prosecute any alcohol or drug abuse patient.[facility] HospitalIn the event this information is protected by the Federal Confidentiality of Alcohol and Drug Abuse Patient Records regulations: The Federal rules restrict any use of the information to criminally investigate or prosecute any alcohol or drug abuse patient.[facility] HospitalIn the event this information is protected by the Federal Confidentiality of Alcohol and Drug Abuse Patient Records regulations: The Federal rules restrict any use of the information to criminally investigate or prosecute any alcohol or drug abuse patient.[facility] HospitalIn the event this information is protected by the Federal Confidentiality of Alcohol and Drug Abuse Patient Records regulations: The Federal rules restrict any use of the information to criminally investigate or prosecute any alcohol or drug abuse patient.[facility] HospitalIn the event this information is protected by the Federal Confidentiality of Alcohol and Drug Abuse Patient Records regulations: The Federal rules restrict any use of the information to criminally investigate or prosecute any alcohol or drug abuse patient.[facility] HospitalIn the event this information is protected by the Federal Confidentiality of Alcohol and Drug Abuse Patient Records regulations: The Federal rules restrict any use of the information to criminally investigate or prosecute any alcohol or drug abuse patient.[facility] HospitalIn the event this information is protected by the Federal Confidentiality of Alcohol and Drug Abuse Patient Records regulations: The Federal rules restrict any use of the information to criminally investigate or prosecute any alcohol or drug abuse patient.[facility] HospitalIn the event this information is protected by the Federal Confidentiality of Alcohol and Drug Abuse Patient Records regulations: The Federal rules restrict any use of the information to criminally investigate or prosecute any alcohol or drug abuse patient.[facility] HospitalIn the event this information is protected by the Federal Confidentiality of Alcohol and Drug Abuse Patient Records regulations: The Federal rules restrict any use of the information to criminally investigate or prosecute any alcohol or drug abuse patient.[facility] HospitalIn the event this information is protected by the Federal Confidentiality of Alcohol and Drug Abuse Patient Records regulations: The Federal rules restrict any use of the information to criminally investigate or prosecute any alcohol or drug abuse patient.[facility] HospitalIn the event this information is protected by the Federal Confidentiality of Alcohol and Drug Abuse Patient Records regulations: The Federal rules restrict any use of the information to criminally investigate or prosecute any alcohol or drug abuse patient.[facility] HospitalIn the event this information is protected by the Federal Confidentiality of Alcohol and Drug Abuse Patient Records regulations: The Federal rules restrict any use of the information to criminally investigate or prosecute any alcohol or drug abuse patient.[facility] HospitalIn the event this information is protected by the Federal Confidentiality of Alcohol and Drug Abuse Patient Records regulations: The Federal rules restrict any use of the information to criminally investigate or prosecute any alcohol or drug abuse patient.[facility] HospitalIn the event this information is protected by the Federal Confidentiality of Alcohol and Drug Abuse Patient Records regulations: The Federal rules restrict any use of the information to criminally investigate or prosecute any alcohol or drug abuse patient.[facility] HospitalIn the event this information is protected by the Federal Confidentiality of Alcohol and Drug Abuse Patient Records regulations: The Federal rules restrict any use of the information to criminally investigate or prosecute any alcohol or drug abuse patient.[facility] HospitalIn the event this information is protected by the Federal Confidentiality of Alcohol and Drug Abuse Patient Records regulations: The Federal rules restrict any use of the information to criminally investigate or prosecute any alcohol or drug abuse patient.[facility] HospitalIn the event this information is protected by the Federal Confidentiality of Alcohol and Drug Abuse Patient Records regulations: The Federal rules restrict any use of the information to criminally investigate or prosecute any alcohol or drug abuse patient.[facility] HospitalIn the event this information is protected by the Federal Confidentiality of Alcohol and Drug Abuse Patient Records regulations: The Federal rules restrict any use of the information to criminally investigate or prosecute any alcohol or drug abuse patient.[facility] Reason for Visit (unrecogniz ed section and content) Reason Onset Date Comments Refill Request 05/30/2021 Reason Comments Joint Pain knee Reason Onset Date Comments Refill Request 10/24/2020 Reason Onset Date Comments Refill Request 06/15/2021 Reason Comments beahvioral health social work Reason Onset Date Comments Refill Request 07/03/2021 Reason Onset Date Comments Refill Request 07/04/2021 Reason Comments Depression increased depression due to weighjt gain, difficulty ambulation, slowly healin wounds, etc Chronic Pain knee pain and other pains worse lately Trouble losing weight Reason Comments behavioral health social work Reason Comments Consult [facility] Returning Pt's Vm Reason Comments Consult [facility] Assessment Virt ual Reason Comments Wound Care Reason Comments Orders Reason Comments Office Notes Reason Comments Medication Request Reason Comments Non-Chemotherapy Treatment Specialty Diagnoses / Procedures Referred By Contac t Referred To Contact Diagnoses Iron deficiency anemia, unspecified iron deficiency anemia type Chronic hepatitis, unspecified (HCC) Procedures IRON SUCROSE INJECTION PER 1 MG Erica Cannon MD [address] [place] [address] [facility] [address] [place] [address] Referral ID Status Reason Start Date Expiration Date V isits Requested Visits Authorized [id number] Authorized 07/16/2021 02/13/2022 99 99 Reason Comments Follow Up Reason Comments Opened In Error Reason Comments Missed Appointment Reason Comments Results Reason Comments Clinical Update Reason Onset Date Comments [facility] Navigation Outreach 10/17/2021 HCC Reason Onset Date Comments Refill Request 02/06/2022 Reason Comments Patient Question Reason Comments Home Health orders Reason Comments home health calling for verbal orders Reason Comments Appointment Reason Comments Medication Problem Patient Update Reason Comments Follow Up Was in rehab at [facility] Wound Care Reason Onset Date Comments Refill Request 02/23/2022 Reason Comments Patient Update HH Order Request Reason Comments [facility]/refill request Reason Comments Home Health OT Plan of Care Reason Comments Medication problem/prescription request Reason Comments [facility] Reason Onset Date Comments Refill Request 03/02/2022 Reason Onset Date Comments Refill Request 03/11/2022 Reason Comments Insurance Authorization Reason Comments Medication Problem Reason Comments Med Change Request Reason Onset Date Comments Refill Request 03/25/2022 Medication Problem 03/25/2022 Reason Onset Date Comments Refill Request 03/22/2022 Reason Comments Office visit notes to DME co Reason Onset Date Comments Refill Request 03/29/2022 Reason Comments Eye Problem Reason Comments handicap sign Reason Comments Pharmacy Call/ Request Reason Onset Date Comments Refill Request 04/08/2022 Reason Comments Patient Update Orders Reason Comments New Rx Request Reason Comments Blood Sugar Reading Reason Comments [facility] order request Reason Comments No Show Reason Comments Sore Throat Reason Comments Physical Therapy Plan of Care Reason Onset Date Comments Refill Request 05/04/2022 Reason Comments Patient Question Medication Problem Reason Comments Urine symptoms Reason Comments Insurance Authorization Ozempic Reason Comments problem with PA Reason Comments referral for HH/medication problem Reason Comments Lab order question Reason Comments Diabetes Reason Comments Follow Up Home Care Management Reason Comments Refill Request Reason Comments Cataract Evaluation Reason Comments Pre-Op Exam Reason Onset Date Comments Refill Request 04/16/2022 Refill Request 04/17/2022 Reason Comments Patient Update Reason Comments Patient Question Patient Update Reason Comments fax from [employer] Reason Onset Date Comments Refill Request 07/31/2022 Reason Comments Consult Reason Comments Diarrhea Reason Comments diarrhea x 5 days Clear liquid diet si nce Friday Reason Comments Patient Update Results Recheck Reason Onset Date Comments Home Care Management 08/24/2022 [facility] 05/02/[id number] Reason Comments Patient Update From OV yesterday Reason Comments Hospital F/U [facility] follow up Reason Comments Post-op (Ophthalmology) Left Eye Reason Onset Date Comments Refill Request 09/19/2022 Reason Comments Medication Question Reason Onset Date Comments Refill Request 09/20/2022 Reason Onset Date Comments Refill Request 09/23/2022 Reason Comments tooth pain Reason Comments Ingrown Nail Reason Comments Diabetes Reason Onset Date Comments Refill Request 11/01/2022 Reason Comments Recheck Reason Comments Patient Update Patient Question Reason Onset Date Comments Refill Request 11/19/2022 Reason Comments Transition Of Care Diabetes Reason Comments Abdominal Pain Reason Comments Abdominal Pain left lower quad and urinary frequency with pain after urination for about 1 week.Noted swelling in left upper leg and nauseated since symptoms started but no vomiting Reason Onset Date Comments Refill Request 01/29/2023 Reason Onset Date Comments Refill Request 04/01/2023 Reason Comments Med Management Reason Comments Dental Problem Reason Onset Date Comments Refill Request Refill Request 05/07/2023 Reason Comments Established Patient Diabetic Foot Care Reason Onset Date Comments Refill Request/blood sugar readings 05/07/2023 Reason Comments Weight loss medications Reason Comments DME Request: Mattress Overlay Reason Comments Results, Lab Reason Comments patient information Reason Comments Order for hospital bed Reason Onset Date Comments Refill Request 06/26/2023 Reason Comments Medication Question Mounjaro dose increa se Reason Comments Urinary Problem Possible uti, freque ncy, cramps in lower abdomen and in lower back x 8 days Reason Comments UTI Reason Comments Established Patient Follow Up Diabetic Foot Care Reason Onset Date Comments Refill Request 08/16/2023 Reason Comments Home Health Orders Reason Comments ER F/U [facility] ER 08/04/2023 fo r possible kidney stone but CT scan showed diverticulitis. Treated with metronidazole and ciprofloxacin Patient states has not felt much improvement since treatment Discuss O2 usage for DME Is using it wit h CPAP machine just at bedtime. Will only use it during the day if really short of breath or wheezing. Follow Up Reason Onset Date Comments Home Care 08/29/2023 [facility] 0 05/22/23-07/20/23 Reason Onset Date Comments Refill Request 09/04/2023 Reason Comments change in pharmacy Reason Onset Date Comments Refill Request 09/29/2023 Reason Comments Well Woman Reason Comments Orders Rollator Reason Comments Dental Problem infected tooth and r equesting treatment with antibiotic Reason Onset Date Comments Refill Request 10/31/2023 Reason Comments Patient Update Reason Comments order problems Reason Comments Orders Reason Comments Spirometry Specialty Diagnoses / Procedures Referred By Contac t Referred To Contact [facility] Diagnoses Pulmonary hypertension (HCC) On supplemental oxygen therapy Hypoxia Procedures OXIMETRY WITH AMBULATION NONINVASIVE EAR/PULSE OXIMETRY MULTIPLE DETER Silvestre Jain APRN.[employer] [address] [place] [address] [facility] [place] [address] [place] [address] Referral ID Status Reason Start Date Expiration Date V isits Requested Visits Authorized [id number] Closed Auto-Generate d Referral 11/21/2023 12/20/2024 1 1 Reason Onset Date Comments Refill Request 11/28/2023 Reason Comments F/U 3 Month Reason Onset Date Comments Refill Request 12/26/2023 Reason Comments Patient Update went to [facility] ER Reason Onset Date Comments Refill Request 01/19/2024 Reason Onset Date Comments Refill Request 01/29/2024 Reason Onset Date Comments Refill Request 02/20/2024 Reason Comments urine culture results Patient Question Reason Onset Date Comments Refill Request 03/10/2024 Reason Onset Date Comments Refill Request 03/22/2024 Reason Onset Date Comments Refill Request 04/12/2024 Reason Comments Weight Problem Right Knee Pain injection did not gi ve any relief Reason Onset Date Comments Refill Request 05/11/2024 Reason Onset Date Comments Refill Request 05/31/2024 Reason Comments DME Request Reason Onset Date Comments Refill Request 06/08/2024 Reason Comments OV notes Reason Comments Established Patient Pain Reason Comments Urinary Problem probable UTI Reason Comments Urinary Frequency burning with urinati on x 2 days Reason Onset Date Comments Refill Request 07/06/2024 Reason Comments Urinary Urgency Reason Onset Date Comments Results 07/19/2024 Reason Onset Date Comments Refill Request 07/16/2024 Reason Comments Sphincter Problems Reason Comments F/U 3 Month fatigue in last few days. Has been falling asleep while at work. Does wear CPAP at night and feels she is benefiting from use.Diarrhea has increased question is related to stress as she is getting on .weight gain feels injection doesn't seem to be helping any longer Reason Comments New Patient Specialty Diagnoses / Procedures Referred By Almita hyman Referred To Contact Diagnoses Iron deficiency anemia, unspecified iron deficiency anemia type Procedures CONSULT TO HEMATOLOGY/ONCOLOGY OFFICE/OUTPATIENT NEW HIGH MDM 60 MINUTES Silvestre Jain APRN.[employer] [address] [place] [address] Phone: tel: fax: Referral ID Status Reason Start Date Expiration Date V isits Requested Visits Authorized [id number] Closed PCP Requested Referral 08/18/2024 08/18/2025 1 1 Reason Onset Date Comments Refill Request 08/30/2024 Reason Comments Follow Up Discuss medication Reason Comments Insurance Authorization victoza Medication Problem Reason Comments Abdominal Pain Middline into middle back x 2 weeks: nausea/diarrhea, worse after meals Reason Comments Established Patient Reason Comments Medication Problem victoza Reason Onset Date Comments Refill Request 09/03/2024 Reason Onset Date Comments Refill Request 10/08/2024 Reason Onset Date Comments Refill Request 10/26/2024 Reason Comments UTI Urinary freq,burning and cramping for a week. Reason Comments Established Patient Reason Comments Results Specialty Diagnoses / Procedures Referred By Almita hyman Referred To Contact Diagnoses Iron malabsorption (HCC) Anemia associated with stage 3 chronic renal failure (HCC) Rj Dempsey, DO [address] [place] [address] Phone: tel: fax: Hematology/Oncology [address] [place] [address] Phone: tel: fax: Referral ID Status Reason Start Date Expiration Date V isits Requested Visits Authorized [id number] Authorized 11/03/2024 02/23/2025 1 99 Care Teams (unrecognized sec tion and content) [employer] Relationship Specialty Start Date End Date Erica Cannon MD [facility] [place] [address] PCP - General Internal Medicine 11/27/10 [employer] Relationship Specialty Start Date End Date Erica Cannon MD [facility] [place] [address] PCP - General Internal Medicine 11/27/10 [employer] Relationship Specialty Start Date End Date Erica Cannon MD [address] [place] [address], [place] [address] PCP - General Internal Medicine 11/27/10 [employer] Relationship Specialty Start Date End Date Erica Cannon MD [facility] [place] [address] PCP - General Internal Medicine 11/27/10 [employer] Relationship Specialty Start Date End Date Erica Cannon MD [address] [place] [address], [place] [address] PCP - General Internal Medicine 11/27/10 [employer] Relationship Specialty Start Date End Date Erica Cannon MD [address] [place] [address], [place] [address] PCP - General Internal Medicine 11/27/10 [employer] Relationship Specialty Start Date End Date Erica Cannon MD [address] [place] [address], [place] [address] PCP - General Internal Medicine 11/27/10 [employer] Relationship Specialty Start Date End Date Erica Cannon MD [address] [place] [address], [place] [address] PCP - General Internal Medicine 11/27/10 [employer] Relationship Specialty Start Date End Date Erica Cannon MD [address] [place] [address] PCP - General Internal Medicine 11/27/10 [employer] Relationship Specialty Start Date End Date Erica Cannon MD [facility] [place] [address] PCP - General Internal Medicine 11/27/10 [employer] Relationship Specialty Start Date End Date Erica Cannon MD [address] [place] [address], [place] [address] PCP - General Internal Medicine 11/27/10 [employer] Relationship Specialty Start Date End Date Erica Cannon MD [address] [place] [address], [place] [address] PCP - General Internal Medicine 11/27/10 [employer] Relationship Specialty Start Date End Date Erica Cannon MD [address] [place] [address], [place] [address] PCP - General Internal Medicine 11/27/10 [employer] Relationship Specialty Start Date End Date Erica Cannon MD [facility] [place] [address] PCP - General Internal Medicine 11/27/10 [employer] Relationship Specialty Start Date End Date Erica Cannon MD [facility] [place] [address] PCP - General Internal Medicine 11/27/10 [employer] Relationship Specialty Start Date End Date Erica Cannon MD [address] [place] [address], [place] [address] PCP - General Internal Medicine 11/27/10 [employer] Relationship Specialty Start Date End Date Erica Cannon MD [facility] [place] [address] PCP - General Internal Medicine 11/27/10 [employer] Relationship Specialty Start Date End Date Erica Cannon MD [facility] [place] [address] PCP - General Internal Medicine 11/27/10 [employer] Relationship Specialty Start Date End Date Erica Cannon MD [address] [place] [address], [place] [address] PCP - General Internal Medicine 11/27/10 [employer] Relationship Specialty Start Date End Date Erica Cannon MD [address] [place] [address], [place] [address] PCP - General Internal Medicine 11/27/10 [employer] Relationship Specialty Start Date End Date Erica Cannon MD [address] [place] [address], [place] [address] PCP - General Internal Medicine 11/27/10 [employer] Relationship Specialty Start Date End Date Erica Cannon MD [address] [place] [address], [place] [address] PCP - General Internal Medicine 11/27/10 [employer] Relationship Specialty Start Date End Date Erica Cannon MD [address] [place] [address], [place] [address] PCP - General Internal Medicine 11/27/10 [employer] Relationship Specialty Start Date End Date Erica Cannon MD [address] [place] [address], [place] [address] PCP - General Internal Medicine 11/27/10 [employer] Relationship Specialty Start Date End Date Erica Cannon MD [address] [place] [address], [place] [address] PCP - General Internal Medicine 11/27/10 [employer] Relationship Specialty Start Date End Date Erica Cannon MD [address] [place] [address] PCP - General Internal Medicine 11/27/10 [employer] Relationship Specialty Start Date End Date Erica Cannon MD [address] [place] [address] PCP - General Internal Medicine 11/27/10 [employer] Relationship Specialty Start Date End Date Erica Cannon MD [address] [place] [address] PCP - General Internal Medicine 11/27/10 [employer] Relationship Specialty Start Date End Date Erica Cannon MD [facility] [place] [address] PCP - General Internal Medicine 11/27/10 [employer] Relationship Specialty Start Date End Date Erica Cannon MD [address] [place] [address] PCP - General Internal Medicine 11/27/10 [employer] Relationship Specialty Start Date End Date Erica Cannon MD [address] [place] [address] PCP - General Internal Medicine 11/27/10 [employer] Relationship Specialty Start Date End Date Erica Cannon MD [address] [place] [address] PCP - General Internal Medicine 11/27/10 [employer] Relationship Specialty Start Date End Date Erica Cannon MD [address] [place] [address] PCP - General Internal Medicine 11/27/10 [place], [facility] [address] [place] [address] Pharmacy 05/21/22 [employer] Relationship Specialty Start Date End Date Erica Cannon MD [address] [facility] [place] [address] PCP - General Internal Medicine 11/27/10 [place] [facility] [address] [facility] [address] Pharmacy 05/21/22 [employer] Relationship Specialty Start Date End Date Erica Cannon MD [address] [facility] [place] [address] PCP - General Internal Medicine 11/27/10 [place] [facility] [address] [facility] [place] [address] Pharmacy 05/21/22 [employer] Relationship Specialty Start Date End Date Erica Cannon MD [address] [facility] [place] [address] PCP - General Internal Medicine 11/27/10 [place] [facility] [address] [facility] [place] [address] Pharmacy 05/21/22 [employer] Relationship Specialty Start Date End Date Erica Cannon MD [address] [facility] [place] [address] PCP - General Internal Medicine 11/27/10 [place], [facility] [address] [facility] [place] [place] [address] Pharmacy 05/21/22 [employer] Relationship Specialty Start Date End Date Erica Cannon MD [address] [facility] [place] [address] PCP - General Internal Medicine 11/27/10 [place], [facility] [address] [facility] [place] [address] Pharmacy 05/21/22 [employer] Relationship Specialty Start Date End Date Erica Cannon MD [address] [place] [address] PCP - General Internal Medicine 11/27/10 [place], [facility] [address] [facility] [place] [address] Pharmacy 05/21/22 [employer] Relationship Specialty Start Date End Date Erica Cannon MD [address] [place] [address] PCP - General Internal Medicine 11/27/10 [place] [facility] [address] [place] [address] Pharmacy 05/21/22 [employer] Relationship Specialty Start Date End Date Erica Cannon MD [address] [place] [address] PCP - General Internal Medicine 11/27/10 [place], [facility] [address] [facility] [place] [address] Pharmacy 05/21/22 [employer] Relationship Specialty Start Date End Date Erica Cannon MD [address] [place] [address] PCP - General Internal Medicine 11/27/10 [place], [facility] [address] [place] [address] Pharmacy 05/21/22 [employer] Relationship Specialty Start Date End Date Erica Cannon MD [address] [place] [address] PCP - General Internal Medicine 11/27/10 [place], [facility] [address] [place] [address] Pharmacy 05/21/22 [employer] Relationship Specialty Start Date End Date Erica Cannon MD [address] [place] [address] PCP - General Internal Medicine 11/27/10 [facility] [address] [place] [address] Pharmacy 05/21/22 [employer] Relationship Specialty Start Date End Date Erica Cannon MD [address] [place] [address] PCP - General Internal Medicine 11/27/10 [facility] [address] [place] [address] Pharmacy 05/21/22 Team Status: Active Member Role Status Dates Dr. Erica Cannon MD Family Provider Active Dr. Erica Cannon MD Primary Care Provider Active Team Status: Active Member Role Status Dates Dr. Erica Cannon MD Primary Care Provider Active Dr. Princess Mcgee MD Emergency Provider Active Dr. Sam Perez MD Admit Provider, Attending Pro vider Active Team Status: Active Member Role Status Dates Dr. Erica Cannon MD Primary Care Provider Active Dr. Princess Mcgee MD Emergency Provider Active Dr. Sam Perez MD Admit Provider, Other Provide r Active Dr. Lisa Mendoza MD Attending Provider, Other Provid er Active Dr. Ammy Agarwal MD Other Provider Active Team Status: Active Member Role Status Dates Dr. Erica Cannon MD Primary Care Provider Active Dr. Princess Mcgee MD Emergency Provider Active Dr. Sam Perez MD Admit Provider, Other Provide r Active Dr. Ammy Agarwal MD Other Provider Active Dr. Winter Hamm MD Attending Provider, Other Prov ider Active Dr. Lisa Mendoza MD Other Provider Active Team Status: Active Member Role Status Dates Dr. Erica Cannon MD Primary Care Provider Active Dr. Princess Mcgee MD Emergency Provider Active Dr. Sam Perez MD Admit Provider, Other Provide r Active Dr. Ammy Agarwal MD Other Provider Active Dr. Winter Hamm MD Attending Provider, Other Prov ider Active Dr. Lisa Mendoza MD Other Provider Active Dr. Raysa Knox MD Other Provider Active Team Status: Active Member Role Status Dates Dr. Erica Cannon MD Primary Care Provider Active Dr. Princess Mcgee MD Emergency Provider Active Dr. Sam Perez MD Admit Provider, Other Provide r Active Dr. Ammy Agarwal MD Other Provider Active Dr. Winter Hamm MD Other Provider Active Dr. Lisa Mendoza MD Other Provider Active Dr. Raysa Knox MD Attending Provider, Other Pro vider Active Team Status: Active Member Role Status Dates Dr. Erica Cannon MD Primary Care Provider Active Dr. Princess Mcgee MD Emergency Provider Active Dr. Sam Perez MD Admit Provider, Other Provide r Active Dr. Ammy Agarwal MD Other Provider Active Dr. Lisa Mendoza MD Other Provider Active Dr. Raysa Knox MD Attending Provider, Other Pro vider Active Dr. Jim Pizarro DO Other Provider Active Dr. Winter Hamm MD Other Provider Active Team Status: Active Member Role Status Dates Dr. Erica Cannon MD Primary Care Provider Active Dr. Princess Mcgee MD Emergency Provider Active Dr. Sam Perez MD Admit Provider, Other Provide r Active Dr. Ammy Agarwal MD Other Provider Active Dr. Lisa Mendoza MD Other Provider Active Dr. Raysa Knox MD Other Provider Active Dr. Jim Pizarro DO Attending Provider, Other Pro vider Active Dr. Winter Hamm MD Other Provider Active Team Status: Inactive Member Role Status Dates Dr. Erica Cannon MD Primary Care Provider Active Dr. Princess Mcgee MD Emergency Provider Active Dr. Sam Perez MD Admit Provider, Other Provide r Active Dr. Ammy Agarwal MD Other Provider Active Dr. Lisa Mendoza MD Other Provider Active Dr. Raysa Knox MD Other Provider Active Dr. Jim Pizarro DO Attending Provider Active Dr. Winter Hamm MD Other Provider Active [employer] Relationship Specialty Start Date End Date Erica Cannon MD [address] [facility] [place] [place] [address] PCP - General Internal Medicine 11/27/10 [facility] [address] [facility] [place] [address] Pharmacy 05/21/22 [employer] Relationship Specialty Start Date End Date Erica Cannon MD [address] [place] [address] PCP - General Internal Medicine 11/27/10 [facility] [address] [facility] [place] [address] Pharmacy 05/21/22 [employer] Relationship Specialty Start Date End Date Erica Cannon MD [address] [place] [address] PCP - General Internal Medicine 11/27/10 [facility] [address] [place] [address] Pharmacy 05/21/22 [employer] Relationship Specialty Start Date End Date Erica Cannon MD [address] [place] [address] PCP - General Internal Medicine 11/27/10 [facility], [facility] [address] [facility] [place] [address] Pharmacy 05/21/22 [employer] Relationship Specialty Start Date End Date Erica Cannon MD [address] [facility] [place] [address] PCP - General Internal Medicine 11/27/10 [facility] [address] [place] [address] Pharmacy 05/21/22 [employer] Relationship Specialty Start Date End Date Erica Cannon MD [address] [facility] [place] [address] PCP - General Internal Medicine 11/27/10 [facility] [address] [facility] [address] Pharmacy 05/21/22 [employer] Relationship Specialty Start Date End Date Erica Cannon MD [address] [facility] [place] [address] PCP - General Internal Medicine 11/27/10 [facility] [address] [facility] [place] [address] Pharmacy 05/21/22 [employer] Relationship Specialty Start Date End Date Erica Cannon MD [address] [facility] [place] [address] PCP - General Internal Medicine 11/27/10 [place], [facility] [address] [facility] [place] [address] Pharmacy 05/21/22 [employer] Relationship Specialty Start Date End Date Erica Cannon MD [address] [facility] [place] [address] PCP - General Internal Medicine 11/27/10 [place] [facility] [address] [place] [address] Pharmacy 05/21/22 [employer] Relationship Specialty Start Date End Date Erica Cannon MD [address] [place] [address] PCP - General Internal Medicine 11/27/10 [facility] [address] [facility] [address] Pharmacy 05/21/22 [employer] Relationship Specialty Start Date End Date Erica Cannon MD [address] [place] [address] PCP - General Internal Medicine 11/27/10 [facility] [address] [facility] [address] Pharmacy 05/21/22 [employer] Relationship Specialty Start Date End Date Erica Cannon MD [address] [facility] [place] [address] PCP - General Internal Medicine 11/27/10 [facility] [place] [address] [facility] [address] Pharmacy 05/21/22 [employer] Relationship Specialty Start Date End Date Erica Cannon MD [address] [facility] [place] [address] PCP - General Internal Medicine 11/27/10 [facility] [address] [facility] [place] [address] Pharmacy 05/21/22 [employer] Relationship Specialty Start Date End Date Erica Cannon MD [address] [place] [address] PCP - General Internal Medicine 11/27/10 [place], [facility] [address] [place] [address] Pharmacy 05/21/22 [employer] Relationship Specialty Start Date End Date Erica Cannon MD [address] [facility] [place] [address] PCP - General Internal Medicine 11/27/10 [place], [facility] [address] [place] [address] Pharmacy 05/21/22 [employer] Relationship Specialty Start Date End Date Erica Cannon MD [address] [facility] [place] [address] PCP - General Internal Medicine 11/27/10 [employer] Relationship Specialty Start Date End Date Erica Cannon MD [address] [facility] [place] [address] PCP - General Internal Medicine 11/27/10 [place], [facility] [address] [facility] [place] [address] Pharmacy 05/21/22 12/03/22 [employer] Relationship Specialty Start Date End Date Erica Cannon MD [address] [facility] [place] [address] PCP - General Internal Medicine 11/27/10 [place], [facility] [address] [facility] [place] [address] Pharmacy 05/21/22 12/03/22 [employer] Relationship Specialty Start Date End Date Erica Cannon MD [address] [place] [address] PCP - General Internal Medicine 11/27/10 [employer] Relationship Specialty Start Date End Date Erica Cannon MD [address] [place] [address] PCP - General Internal Medicine 11/27/10 [employer] Relationship Specialty Start Date End Date Erica Cannon MD [address] [place] [address] PCP - General Internal Medicine 11/27/10 [employer] Relationship Specialty Start Date End Date Erica Cannon MD [address] [place] [address] PCP - General Internal Medicine 11/27/10 [employer] Relationship Specialty Start Date End Date Erica Cannon MD [address] [place] [address] PCP - General Internal Medicine 11/27/10 [place] [address] [place] [address] Pharmacist Pharmacy 01/29/23 [employer] Relationship Specialty Start Date End Date Erica Cannon MD [address] [place], [place] [address] PCP - General Internal Medicine 11/27/10 [place] [address] [place] [address] Pharmacist Pharmacy 01/29/23 [employer] Relationship Specialty Start Date End Date Erica Cannon MD [address] [place] [address] PCP - General Internal Medicine 11/27/10 [place] [address] [place] [address] Pharmacist Pharmacy 01/29/23 [employer] Relationship Specialty Start Date End Date Erica Cannon MD [address] [place] [address] PCP - General Internal Medicine 11/27/10 [place] [address] [place] [address] Pharmacist Pharmacy 01/29/23 [employer] Relationship Specialty Start Date End Date Erica Cannon MD [address] [place] [address] PCP - General Internal Medicine 11/27/10 [place] [address] [place] [address] Pharmacist Pharmacy 01/29/23 [employer] Relationship Specialty Start Date End Date Erica Cannon MD [address] [place] [address] PCP - General Internal Medicine 11/27/10 [place]eta[place]icia[place] [address] [place] [address] Pharmacist Pharmacy 01/29/23 [employer] Relationship Specialty Start Date End Date Erica Cannon MD [address] [place] [address] PCP - General Internal Medicine 11/27/10 [place], [place] [address] [place] [address] Pharmacist Pharmacy 01/29/23 [employer] Relationship Specialty Start Date End Date Erica Cannon MD [address] [place] [address] PCP - General Internal Medicine 11/27/10 [place] [address] [place] [address] Pharmacist Pharmacy 01/29/23 [employer] Relationship Specialty Start Date End Date Erica Cannon MD [address] [place] [address] PCP - General Internal Medicine 11/27/10 [place]Sw[place] ram[place] [address] [place] [address] Pharmacist Pharmacy 01/29/23 [employer] Relationship Specialty Start Date End Date Erica Cannon MD [address] [place] [address] PCP - General Internal Medicine 11/27/10 [place], [place] [address] [place] [address] Pharmacist Pharmacy 01/29/23 [employer] Relationship Specialty Start Date End Date Erica Cannon MD [address] [place] [address] PCP - General Internal Medicine 11/27/10 [place] [address] [place] [address] Pharmacist Pharmacy 01/29/23 [employer] Relationship Specialty Start Date End Date Erica Cannon MD [address] [place] [address] PCP - General Internal Medicine 11/27/10 [place] [address] [place] [address] Pharmacist Pharmacy 01/29/23 [employer] Relationship Specialty Start Date End Date Erica Cannon MD [address] [place] [address] PCP - General Internal Medicine 11/27/10 [place] [address] [place] [address] Pharmacist Pharmacy 01/29/23 [employer] Relationship Specialty Start Date End Date Erica Cannon MD [address] [place] [address] PCP - General Internal Medicine 11/27/10 [place] [address] [place] [address] Pharmacist Pharmacy 01/29/23 [employer] Relationship Specialty Start Date End Date Erica Cannon MD [address] [place] [address] PCP - General Internal Medicine 11/27/10 [place] [address] [place] [address] Pharmacist Pharmacy 01/29/23 [employer] Relationship Specialty Start Date End Date Erica Cannon MD [address] [place] [address] PCP - General Internal Medicine 11/27/10 [place] [address] [place] [address] Pharmacist Pharmacy 01/29/23 [employer] Relationship Specialty Start Date End Date Erica Cannon MD [address] [place] [address] PCP - General Internal Medicine 11/27/10 [place] [address] [place] [address] Pharmacist Pharmacy 01/29/23 [employer] Relationship Specialty Start Date End Date Erica Cannon MD [address] [place] [address] PCP - General Internal Medicine 11/27/10 [place] [address] [place] [address] Pharmacist Pharmacy 01/29/23 [employer] Relationship Specialty Start Date End Date Erica Cannon MD [address] [place] [address] PCP - General Internal Medicine 11/27/10 [place]Sweta[place]icia[place] [address] [place] [address] Pharmacist Pharmacy 01/29/23 [employer] Relationship Specialty Start Date End Date Erica Cannon MD [address] [place] [address] PCP - General Internal Medicine 11/27/10 [place] [address] [place] [address] Pharmacist Pharmacy 01/29/23 [employer] Relationship Specialty Start Date End Date Erica Cannon MD [address] [place] [address] PCP - General Internal Medicine 11/27/10 [place], LeticiaElizabeth [place] [address] [place] [address] Pharmacist Pharmacy 01/29/23 [employer] Relationship Specialty Start Date End Date Erica Cannon MD [address] [place] [address] PCP - General Internal Medicine 11/27/10 [place], Leticia[place] [address] [place] [address] Pharmacist Pharmacy 01/29/23 [employer] Relationship Specialty Start Date End Date Erica Cannon MD [address] [place] [address] PCP - General Internal Medicine 11/27/10 [place] [address] [place] [address] Pharmacist Pharmacy 01/29/23 [employer] Relationship Specialty Start Date End Date Erica Cannon MD [address] [place] [address] PCP - General Internal Medicine 11/27/10 Leticia EchavarriaElizabeth [place] [address] [place] [address] Pharmacist Pharmacy 01/29/23 [employer] Relationship Specialty Start Date End Date Erica Cannon MD [address] [place] [address] PCP - General Internal Medicine 11/27/10 Leticia [facility] [address] [place] [address] Pharmacist Pharmacy 01/29/23 [employer] Relationship Specialty Start Date End Date Erica Cannon MD [address] [place] [address] PCP - General Internal Medicine 11/27/10 Leticia [facility]John [facility] [address] [place] [address] Pharmacist Pharmacy 01/29/23 [employer] Relationship Specialty Start Date End Date Erica Cannon MD [address] [place] [address] PCP - General Internal Medicine 11/27/10 [employer] Relationship Specialty Start Date End Date Erica Cannon MD [address] [place] [address] PCP - General Internal Medicine 11/27/10 [employer] Relationship Specialty Start Date End Date Erica Cannon MD [address] [place] [address] PCP - General Internal Medicine 11/27/10 [employer] Relationship Specialty Start Date End Date Erica Cannon MD [address] [place] [address] PCP - General Internal Medicine 11/27/10 [employer] Relationship Specialty Start Date End Date Erica Cannon MD [address] [place] [address] PCP - General Internal Medicine 11/27/10 [employer] Relationship Specialty Start Date End Date Erica Cannon MD [address] [place] [address] PCP - General Internal Medicine 11/27/10 [employer] Relationship Specialty Start Date End Date Erica Cannon MD [address] [place] [address] PCP - General Internal Medicine 11/27/10 [employer] Relationship Specialty Start Date End Date Erica Cannon MD [address] [place] [address] PCP - General Internal Medicine 11/27/10 [employer] Relationship Specialty Start Date End Date Erica Cannon MD [address] [place] [address] PCP - General Internal Medicine 11/27/10 [employer] Relationship Specialty Start Date End Date Erica Cannon MD [address] [place] [address] PCP - General Internal Medicine 11/27/10 [employer] Relationship Specialty Start Date End Date Erica Cannon MD [address] [place] [address] PCP - General Internal Medicine 11/27/10 [employer] Relationship Specialty Start Date End Date Erica Cannon MD [address] [place], [place] [address] PCP - General Internal Medicine 11/27/10 [employer] Relationship Specialty Start Date End Date Erica Cannon MD [address] [place], [place] [address] PCP - General Internal Medicine 11/27/10 [employer] Relationship Specialty Start Date End Date Erica Cannon MD [address] [place], [place] [address] PCP - General Internal Medicine 11/27/10 [place] [facility] [address] [place] [phone] Pharmacist Pharmacy 01/29/23 09/21/23 [employer] Relationship Specialty Start Date End Date Erica Cannon MD [address] [place], [place] [address]31 PCP - General Internal Medicine 11/27/10 [employer] Relationship Specialty Start Date End Date Erica Cannon MD [address] [place], [place] [address] PCP - General Internal Medicine 11/27/10 Lydia North, QUALITY REVIEW TRAINER.TRANSCRIPTION TYPIST [address] [place], [place] [id number] Parking Enforcer Internal Medicine 02/02/24 Silvestre Jain QUALITY REVIEW TRAINER.MANAGER [employer] [address] [place], [place] [id number] [facility] Internal Medicine 02/02/24 [employer] Relationship Specialty Start Date End Date Erica Cannon MD [address] [place] [address] PCP - General Internal Medicine 11/27/10 Lydia North, QUALITY REVIEW TRAINER.TRANSCRIPTION TYPIST [address] [place] [address] Parking Enforcer Internal Medicine 02/02/24 Silvestre Jain, QUALITY REVIEW TRAINER.MANAGER [employer] SYSTEMS [address] [place] [address] [facility] Internal Medicine 02/02/24 [employer] Relationship Specialty Start Date End Date Erica Cannon MD [address] [place] [address] PCP - General Internal Medicine 11/27/10 Lydia North, QUALITY REVIEW TRAINER.TRANSCRIPTION TYPIST [address] [place] [address] [facility] Internal Medicine 02/02/24 Silvestre Jain QUALITY REVIEW TRAINER.MANAGER QUALITY SYSTEMS [address] [place] [address] [facility] Internal Medicine 02/02/24 [employer] Relationship Specialty Start Date End Date Erica Cannon MD [address] [place] [address] PCP - General Internal Medicine 11/27/10 Lydia North, QUALITY REVIEW TRAINER.TRANSCRIPTION TYPIST [address] [place] [address] [facility] Internal Medicine 02/02/24 Silvestre Jain QUALITY REVIEW TRAINER.MANAGER [employer]ITY SYSTEMS [address] [place] [address] Parking Enforcer Internal Medicine 02/02/24 [employer] Relationship Specialty Start Date End Date Erica Cannon MD [address] [place] [address] PCP - General Internal Medicine 11/27/10 Lydia North, QUALITY REVIEW TRAINER.TRANSCRIPTION TYPIST [address] [place] [address] Parking Enforcer Internal Medicine 02/02/24 Silvestre Jain QUALITY REVIEW TRAINER.MANAGER [employer] [address] [place] [address] Parking Enforcer Internal Medicine 02/02/24 [employer] Relationship Specialty Start Date End Date Erica Cannon MD [address] [place] [address] PCP - General Internal Medicine 11/27/10 Lydia North, QUALITY REVIEW TRAINER.TRANSCRIPTION TYPIST [address] [place] [address] Parking Enforcer Internal Medicine 02/02/24 Silvestre Jain QUALITY REVIEW TRAINER.MANAGER [employer]ITY SYSTEMS [address] [place] [address] [facility] Internal Medicine 02/02/24 [employer] Relationship Specialty Start Date End Date Erica Cannon MD [address] [place] [address] PCP - General Internal Medicine 11/27/10 Lydia North, QUALITY REVIEW TRAINER.TRANSCRIPTION TYPIST [address] [place] [address] Parking Enforcer Internal Medicine 02/02/24 Silvestre Jain APRN.MANAGER [employer] [address] [place] [address] Parking Enforcer Internal Medicine 02/02/24 [employer] Relationship Specialty Start Date End Date Erica Cannon MD [address] [place] [address] PCP - General Internal Medicine 11/27/10 Lydia North APRN.TRANSCRIPTION TYPIST [address] [place] [address] Parking Enforcer Internal Medicine 02/02/24 Silvestre Jain APRN.MANAGER [employer] [address] [place] [address] Parking Enforcer Internal Medicine 02/02/24 [employer] Relationship Specialty Start Date End Date Erica Cannon MD [address] [place] [address] PCP - General Internal Medicine 11/27/10 Lydia North, QUALITY REVIEW TRAINER.TRANSCRIPTION TYPIST [address] [place] [address] Parking Enforcer Internal Medicine 02/02/24 Silvestre Jain APRN.MANAGER [employer] [address] [place] [address] Parking Enforcer Internal Medicine 02/02/24 [employer] Relationship Specialty Start Date End Date Erica Cannon MD [address] [place] [address] PCP - General Internal Medicine 11/27/10 Lydia North, QUALITY REVIEW TRAINER.TRANSCRIPTION TYPIST [address] [place] [address] Parking Enforcer Internal Medicine 02/02/24 Silvestre Jain QUALITY REVIEW TRAINER.MANAGER [employer] SYSTEMS [address] [place] [address] Parking Enforcer Internal Medicine 02/02/24 [employer] Relationship Specialty Start Date End Date Erica Cannon MD [address] [place] [address] PCP - General Internal Medicine 11/27/10 Lydia North, QUALITY REVIEW TRAINER.TRANSCRIPTION TYPIST [address] [place] [address] Parking Enforcer Internal Medicine 02/02/24 Silvestre Jain QUALITY REVIEW TRAINER.MANAGER [employer]ITY SYSTEMS [address] [place] [address] [facility] Internal Medicine 02/02/24 [employer] Relationship Specialty Start Date End Date Erica Cannon MD [address] [place] [address] PCP - General Internal Medicine 11/27/10 Lydia North, QUALITY REVIEW TRAINER.TRANSCRIPTION TYPIST [address] [place] [address] [facility] Internal Medicine 02/02/24 Silvestre Jain QUALITY REVIEW TRAINER.MANAGER QU[employer]ITY SYSTEMS [address] [place] [address] [facility] Internal Medicine 05/18/24 [employer] Relationship Specialty Start Date End Date Erica Cannon MD [address] [place] [address] PCP - General Internal Medicine 11/27/10 Lydia North, QUALITY REVIEW TRAINER.TRANSCRIPTION TYPIST [address] [facility] [place] [address] Parking Enforcer Internal Medicine 02/02/24 Silvestre Jain QUALITY REVIEW TRAINER.MANAGER [employer] SYSTEMS [address] [facility] [place] [address] [facility] Internal Medicine 05/18/24 [employer] Relationship Specialty Start Date End Date Erica Cannon MD [address] [facility] [place] [address] PCP - General Internal Medicine 11/27/10 Lydia North, QUALITY REVIEW TRAINER.TRANSCRIPTION TYPIST [address] [facility] [place] [address] Parking Enforcer Internal Medicine 02/02/24 Silvestre Jain QUALITY REVIEW TRAINER.MANAGER [employer] SYSTEMS [address] [facility] [place] [address] [facility] Internal Medicine 05/18/24 [employer] Relationship Specialty Start Date End Date Erica Cannon MD [address] [facility] [place] [address] PCP - General Internal Medicine 11/27/10 Lydia North, QUALITY REVIEW TRAINER.TRANSCRIPTION TYPIST [address] [facility] [place] [address] Parking Enforcer Internal Medicine 02/02/24 Silvestre Jain QUALITY REVIEW TRAINER.MANAGER [employer]ALITY SYSTEMS [address] [place] [address] Parking Enforcer Internal Medicine 05/18/24 [employer] Relationship Specialty Start Date End Date Erica Cannon MD [address] [place] [address] PCP - General Internal Medicine 11/27/10 Lydia North, QUALITY REVIEW TRAINER.TRANSCRIPTION TYPIST [address] [facility] [place] [address] Parking Enforcer Internal Medicine 02/02/24 Silvestre Jain QUALITY REVIEW TRAINER.MANAGER QU[employer]ITY SYSTEMS [address] [facility] [place] [address] Parking Enforcer Internal Medicine 05/18/24 [employer] Relationship Specialty Start Date End Date Erica Cannon MD [address] [facility] [place] [address] PCP - General Internal Medicine 11/27/10 Lydia North, QUALITY REVIEW TRAINER.TRANSCRIPTION TYPIST [address] [facility] [place] [address] Parking Enforcer Internal Medicine 02/02/24 Silvestre Jain QUALITY REVIEW TRAINER.MANAGER QUALITY SYSTEMS [address] [facility] [place] [address] Parking Enforcer Internal Medicine 05/18/24 [employer] Relationship Specialty Start Date End Date Erica Cannon MD [address] [place] [address] PCP - General Internal Medicine 11/27/10 Lydia North, QUALITY REVIEW TRAINER.TRANSCRIPTION TYPIST [address] [place] [address] Parking Enforcer Internal Medicine 02/02/24 Silvestre Jain APRN.MANAGER [employer] [address] [place] [address] Parking Enforcer Internal Medicine 02/02/24 05/14/24 Silvestre Jain APRN.MANAGER [employer] [address] [place] [address] Parking Enforcer Internal Medicine 05/18/24 [employer] Relationship Specialty Start Date End Date Erica Cannon MD [address] [place] [address] PCP - General Internal Medicine 11/27/10 Lydia North APRN.TRANSCRIPTION TYPIST [address] [place] [address] Parking Enforcer Internal Medicine 02/02/24 Silvestre Jain APRN.MANAGER [employer] [address] [place] [address] [facility] Internal Medicine 05/18/24 [employer] Relationship Specialty Start Date End Date Erica Cannon MD [address] [place] [address] PCP - General Internal Medicine 11/27/10 Silvestre Jain QUALITY REVIEW TRAINER.MANAGER QUALITY SYSTEMS [address] [place] [address] Parking Enforcer Internal Medicine 05/18/24 Lydia North QUALITY REVIEW TRAINER.TRANSCRIPTION TYPIST [address] [place] [address] [facility] Internal Medicine 07/14/24 [employer] Relationship Specialty Start Date End Date Erica Cannon MD [address] [place] [address] PCP - General Internal Medicine 11/27/10 Silvestre Jain, QUALITY REVIEW TRAINER.MANAGER QUALITY SYSTEMS [address] [place] [address] Parking Enforcer Internal Medicine 05/18/24 Lydia North, QUALITY REVIEW TRAINER.TRANSCRIPTION TYPIST [address] [place] [address] [facility] Internal Medicine 07/14/24 [employer] Relationship Specialty Start Date End Date Erica Cannon MD [address] [place] [address] PCP - General Internal Medicine 11/27/10 Silvestre Jain, QUALITY REVIEW TRAINER.MANAGER QUALITY SYSTEMS [address] [place] [address] Parking Enforcer Internal Medicine 05/18/24 Lydia North, QUALITY REVIEW TRAINER.TRANSCRIPTION TYPIST [address] [place] [address] [facility] Internal Medicine 07/14/24 [employer] Relationship Specialty Start Date End Date Erica Cannon MD [address] [place] [address] PCP - General Internal Medicine 11/27/10 Silvestre Jain, QUALITY REVIEW TRAINER.MANAGER QUALITY SYSTEMS [address] [place] [address] Parking Enforcer Internal Medicine 05/18/24 North, Lydia, QUALITY REVIEW TRAINER.TRANSCRIPTION TYPIST [address] [place] [address] Parking Enforcer Internal Medicine 07/14/24 [employer] Relationship Specialty Start Date End Date Erica Cannon MD [address] [place] [address] PCP - General Internal Medicine 11/27/10 Silvestre Jain QUALITY REVIEW TRAINER.MANAGER QUALITY SYSTEMS [address] [place] [address] Parking Enforcer Internal Medicine 05/18/24 Lydia North, QUALITY REVIEW TRAINER.TRANSCRIPTION TYPIST [address] [place] [address] Parking Enforcer Internal Medicine 07/14/24 [employer] Relationship Specialty Start Date End Date Erica Cannon MD [address] [place] [address] PCP - General Internal Medicine 11/27/10 Silvestre Jain, QUALITY REVIEW TRAINER.MANAGER QUALITY SYSTEMS [address] [place] [address] Parking Enforcer Internal Medicine 05/18/24 Lydia North, QUALITY REVIEW TRAINER.TRANSCRIPTION TYPIST [address] [place] [address] [facility] Internal Medicine 07/14/24 [employer] Relationship Specialty Start Date End Date Erica Cannon MD [address] [place] [address] PCP - General Internal Medicine 11/27/10 Silvestre Jain QUALITY REVIEW TRAINER.MANAGER QUALITY SYSTEMS [address] [place] [address] Parking Enforcer Internal Medicine 05/18/24 Lydia North, QUALITY REVIEW TRAINER.TRANSCRIPTION TYPIST [address] [place] [address] Parking Enforcer Internal Medicine 07/14/24 [employer] Relationship Specialty Start Date End Date Erica Cannon MD [address] [place] [address] PCP - General Internal Medicine 11/27/10 Silvestre Jain QUALITY REVIEW TRAINER.MANAGER QUALITY SYSTEMS [address] [place] [address] Parking Enforcer Internal Medicine 05/18/24 Lydia North, QUALITY REVIEW TRAINER.TRANSCRIPTION TYPIST [address] [place] [address] Parking Enforcer Internal Medicine 07/14/24 [employer] Relationship Specialty Start Date End Date Erica Cannon MD [address] [place] [address] PCP - General Internal Medicine 11/27/10 Silvestre Jain QUALITY REVIEW TRAINER.MANAGER QUALITY SYSTEMS [address] [place] [address] Parking Enforcer Internal Medicine 05/18/24 Lydia North, QUALITY REVIEW TRAINER.TRANSCRIPTION TYPIST [address] [place] [address] Parking Enforcer Internal Medicine 07/14/24 [employer] Relationship Specialty Start Date End Date Erica Cannon MD [address] [place] [address] PCP - General Internal Medicine 11/27/10 Silvestre Jain QUALITY REVIEW TRAINER.MANAGER QUALITY SYSTEMS [address] [facility] [place] [place] [address] Parking Enforcer Internal Medicine 05/18/24 Lydia North, QUALITY REVIEW TRAINER.TRANSCRIPTION TYPIST [address] [facility] [place] [address] Parking Enforcer Internal Medicine 07/14/24 [employer] Relationship Specialty Start Date End Date Erica Cannon MD [address] [facility] [place] [address] PCP - General Internal Medicine 11/27/10 Silvestre Jain QUALITY REVIEW TRAINER.MANAGER QUALITY SYSTEMS [address] [facility] [place] [address] Parking Enforcer Internal Medicine 05/18/24 Lydia North, QUALITY REVIEW TRAINER.TRANSCRIPTION TYPIST [address] [facility] [place] [address] Parking Enforcer Internal Medicine 07/14/24 [employer] Relationship Specialty Start Date End Date Erica Cannon MD [address] [facility] [place] [address] PCP - General Internal Medicine 11/27/10 Silvestre Jain QUALITY REVIEW TRAINER.MANAGER QUALITY SYSTEMS [address] [facility] [place] [address] Parking Enforcer Internal Medicine 05/18/24 Lydia North, QUALITY REVIEW TRAINER.TRANSCRIPTION TYPIST [address] [facility] [place] [address] Parking Enforcer Internal Medicine 07/14/24 [employer] Relationship Specialty Start Date End Date Erica Cannon MD [address] [facility] [place] [address] PCP - General Internal Medicine 11/27/10 Silvestre Jain QUALITY REVIEW TRAINER.MANAGER QUALITY SYSTEMS [address] [facility] [place] [address] Parking Enforcer Internal Medicine 05/18/24 Lydia North QUALITY REVIEW TRAINER.TRANSCRIPTION TYPIST [address] [facility] [place] [address] [facility] Internal Medicine 07/14/24 [employer] Relationship Specialty Start Date End Date Erica Cannon MD [address] [place] [address] PCP - General Internal Medicine 11/27/10 Silvestre Jain QUALITY REVIEW TRAINER.MANAGER QUALITY SYSTEMS [address] [place] [address] Parking Enforcer Internal Medicine 05/18/24 Lydia North, QUALITY REVIEW TRAINER.TRANSCRIPTION TYPIST [address] [place] [address] [facility] Internal Medicine 07/14/24 [employer]ismic [employer] Relationship Specialty Start Date End Date Erica Cannon MD [address] [place] [address] PCP - General Internal Medicine 11/27/10 Silvestre Jain QUALITY REVIEW TRAINER.MANAGER QUALITY SYSTEMS [address] [facility] [place] [address] Parking Enforcer Internal Medicine 05/18/24 North, Lydia, QUALITY REVIEW TRAINER.TRANSCRIPTION TYPIST [address] [facility] [place] [address] Parking Enforcer Internal Medicine 07/14/24 [employer] Relationship Specialty Start Date End Date Erica Cannon MD [address] [facility] [place] [address] PCP - General Internal Medicine 11/27/10 Silvestre Jain QUALITY REVIEW TRAINER.MANAGER QUALITY SYSTEMS [address] [facility] [place] [address] Parking Enforcer Internal Medicine 05/18/24 Lydia North, QUALITY REVIEW TRAINER.TRANSCRIPTION TYPIST [address] [facility] [place] [address] Parking Enforcer Internal Medicine 07/14/24 [employer] Relationship Specialty Start Date End Date Erica Cannon MD [address] [facility] [place] [address] PCP - General Internal Medicine 11/27/10 Silvestre Jain QUALITY REVIEW TRAINER.MANAGER QUALITY SYSTEMS [address] [facility] [place] [address] Parking Enforcer Internal Medicine 05/18/24 Lydia North, QUALITY REVIEW TRAINER.TRANSCRIPTION TYPIST [address] [facility] [place] [address] Parking Enforcer Internal Medicine 07/14/24 [employer] Relationship Specialty Start Date End Date Erica Cannon MD [address] [facility] [place] [address] PCP - General Internal Medicine 11/27/10 Silvestre Jain QUALITY REVIEW TRAINER.MANAGER QUALITY SYSTEMS [address] [place] [address] Parking Enforcer Internal Medicine 05/18/24 Lydia North, QUALITY REVIEW TRAINER.TRANSCRIPTION TYPIST [address] [place] [address] Parking Enforcer Internal Medicine 07/14/24 [employer] Relationship Specialty Start Date End Date Erica Cannon MD [address] [place] [address] PCP - General Internal Medicine 11/27/10 Silvestre Jain QUALITY REVIEW TRAINER.MANAGER QUALITY SYSTEMS [address] [place] [address] Parking Enforcer Internal Medicine 05/18/24 Lydia North, QUALITY REVIEW TRAINER.TRANSCRIPTION TYPIST [address] [place] [address] Parking Enforcer Internal Medicine 07/14/24 [employer] Relationship Specialty Start Date End Date Erica Cannon MD [address] [place] [address] PCP - General Internal Medicine 11/27/10 Silvestre Jain QUALITY REVIEW TRAINER.MANAGER QUALITY SYSTEMS [address] [place] [address] Parking Enforcer Internal Medicine 05/18/24 Lydia North, QUALITY REVIEW TRAINER.TRANSCRIPTION TYPIST [address] [place] [address] Parking Enforcer Internal Medicine 07/14/24 Team Status: Active Member Role/Relationship Status Dates Dr. Erica Cannon MD Family Provider Active Dr. Erica Cannon MD Primary Care Provider Active Team Status: Inactive Member Role/Relationship Status Dates Dr. Erica Cannon MD Primary Care Provider Active Start: July 16, 2024 End: July 16, 2024 Dr. Erica Cannon MD Referring Provider Active Start: July 16, 2024 End: July 16, 2024 Dr. Raysa Knox MD Attending Provider Active Start: July 16, 2024 End: July 16, 2024 Team Status: Inactive Member Role/Relationship Status Dates Dr. Erica Cannon MD Primary Care Provider Active Start: November 01, 2024 End: November 01, 2024 Dr. Erica Cannon MD Referring Provider Active Start: November 01, 2024 End: November 01, 2024 Dr. Sam Goodson DO Attending Provider Active Start: November 01, 2024 End: November 01, 2024 [employer] Relationship Specialty Start Date End Date Erica Cannon MD [address] [place] [address] PCP - General Internal Medicine 11/27/10 Silvestre Jain QUALITY REVIEW TRAINER.MANAGER [employer] SYSTEMS [address] [place] [address] Parking Enforcer Internal Medicine 05/18/24 Lydia North, QUALITY REVIEW TRAINER.TRANSCRIPTION TYPIST [address] [place] [address] Parking Enforcer Internal Medicine 07/14/24 [employer] Relationship Specialty Start Date End Date Erica Cannon MD [address] [place] [address] PCP - General Internal Medicine 11/27/10 Silvestre Jain APRN.MANAGER [employer] SYSTEMS [address] [place] [address] Parking Enforcer Internal Medicine 05/18/24 Lydia North, QUALITY REVIEW TRAINER.TRANSCRIPTION TYPIST [address] [place] [address] [facility] Internal Medicine 07/14/24 [employer] Relationship Specialty Start Date End Date Erica Cannon MD [address] [place] [address] PCP - General Internal Medicine 11/27/10 Silvestre Jain APRN.MANAGER [employer] SYSTEMS [address] [place] [address] [facility] Internal Medicine 05/18/24 Lydia North APRN.TRANSCRIPTION TYPIST [address] [place] [address] [facility] Internal Medicine 07/14/24 [employer] Relationship Specialty Start Date End Date Erica Cannon MD [address] [place] [address] PCP - General Internal Medicine 11/27/10 Silvestre Jain QUALITY REVIEW TRAINER.MANAGER [employer] [address] [place] [address] [facility] Internal Medicine 05/18/24 Lydia North, QUALITY REVIEW TRAINER.TRANSCRIPTION TYPIST [address] [place] [address] [facility] Internal Medicine 07/14/24 Goals (unrecognized section and content) Goals may be documented in a n alternate section FOR RECORDS PERTAINING TO PATIENTS WHO ARE OR HAVE BEEN ENROLLED IN A CHEMICAL DEPENDENCY/SUBSTANCEABUSE PROGRAM, SOME INFORMATION MAY BE OMITTED. This clinical summary was aggregated from multiple sources. Caution should be exercised in using it in the provision of clinical care. This summary normalizes information from multiple sources, and as a consequence, information in this document may materially change the coding, format and clinical context of patient data. In addition, data may be omitted in some cases. CLINICAL DECISIONS SHOULD BE BASED ON THE PRIMARY CLINICAL RECORDS. [facility] [employer] [facility]. provides no warranty or guarantee of the accuracy or completeness of information in this document.
== END | disposition home or self-care (01) ==
LOC: US 11:03
PROVIDERS: PCP Internal Medicine; Referring Provider Urology; Visit Provider Urology
DX: N39.0 Urinary tract infection, site not specified (principal)
CPT/HCPCS: 76770

== ENCOUNTER 2025-01-17 09:51 | Outpatient (CLI) | payer MEDICARE, MEDICAID, SELFPAY ==
--- NOTE | 2025-01-17 09:55 | ECHOTEE_ITS ---
Reason For Study Reason For Study: AORTIC STENOSIS Medication LORETA probe 6VT-D (SN [id number]) passed without difficulty. No complications were noted. Cetacaine Topical [place] given X4 orally. Versed 3 mg given slow IVP. Fentanyl 50 mcg given slow IVP. Performed a rapid injection of agitated mix of 9 cc saline and 1cc air to assess for atrial septal defect. Left Ventricle Normal LV size. Left ventricular systolic function is normal. The left ventricular ejection fraction is 50 %. No regional wall motion abnormalities noted. Right Ventricle Normal RV size. Normal systolic function. Atria Bubble contrast study is positive for PFO. Normal left atrium. The left atrium is moderately enlarged. Normal right atrium. Mitral Valve Bileaflet diffuse mitral valve thickening. Moderate (2+) eccentric mitral valve insufficiency. Tricuspid Valve Normal tricuspid valve. Moderate (2+) tricuspid valve insufficiency. Pulmonary artery systolic pressure is 70 mmHg. Moderate pulmonary hypertension. Aortic Valve Trisinus/trileaflet aortic valve. Moderate focal aortic valve calcification. Peak aortic valve gradient 42 mmHg. Mean aortic valve gradient 26 mmHg. Mild (1+) aortic valve insufficiency. Pulmonic Valve Normal pulmonic valve. Vessels Normal aortic root. Normal arch. The pulmonary artery is normal size. Pericardium No pericardial effusion. MMode/2D Measurements & Calculations LVOT diam: 2.0 cm LVOT area: 3.0 cm2 Doppler Measurements & Calculations Ao V2 max: 321.7 cm/sec AI max noah: 453.9 cm/sec LV V1 max: 117.5 cm/sec Ao max P.8 mmHg AI max P.4 mmHg LV V1 max P.5 mmHg Ao V2 mean: 244.3 cm/sec AI dec slope: 373.4 cm/sec2 LV V1 mean P.7 mmHg Ao mean P.1 mmHg AI P1/2t: 356.0 msec LV V1 mean: 92.7 cm/sec Ao V2 VTI: 75.3 cm LV V1 VTI: 24.9 cm AV (velocity ratio): 0.33 SANTO(I,D): 0.99 cm2 SANTO(V,D): 1.1 cm2 SV(LVOT): 74.3 ml TR max noah: 414.1 cm/sec ECHO/Echo Transesophageal (LORETA) Interpretation Summary Left ventricular systolic function is normal. The left ventricular ejection fraction is 50 %. Bubble contrast study is positive for PFO. Normal LV size. Moderate focal aortic valve calcification. Mean aortic valve gradient 26 mmHg. Mild (1+) aortic valve insufficiency. Moderate pulmonary hypertension. Multi valvular disease with moderate mitral regurgitation, moderate aortic sten osis, and moderate tricuspid regurgitation. Ordering Physician: Lewis Cedillo Referring Physician: Silvia Tolbert M.D. Performed By: Gwen Denise RDCS
== END 2025-01-17 13:15 | disposition home or self-care (01) ==
PROVIDERS: PCP Internal Medicine; Referring Provider Internal Medicine Cardiovascular Disease; Visit Provider Internal Medicine Cardiovascular Disease
DX: I35.0 Nonrheumatic aortic (valve) stenosis (principal)
CPT/HCPCS: 93312; 93320; 93325; A4216

== ENCOUNTER → 2025-01-29 | Outpatient (CLI) | payer MEDICARE, MEDICAID, SELFPAY ==
--- OUTSIDE RECORDS SUMMARY | 2025-01-29 10:57 | XMS RPT_ITS | CCD ---
Author Organization [facility] Care Team Providers Care Rehab Liaison Name Role Phone MICHAEL HILTON Unavailable Unavailable ERICA CANNON Unavailable Unavailable Erica Cannon MD Primary Care Provider DR ERICA CANNON MD Primary Care Physician ([facility] )[phone] Dr. Erica Cannon Primary Care Provider 1([facility] )[phone] Dr. Princess Tran Emergency Provider 1([facility])[phone] Dr. Maribel Leblanc Admit Provider 1([facility])[phone] Maribel Leblanc Referring Provider 1([facility])[phone] Dr. Maribel Leblanc Other Provider 1([facility])[phone] Heber Devine Attending Provider 1([facility])[phone] Heber Devine Other Provider Dr. Henry Vargas Other Provider Arjun OFFICE SERVICE COORDINATOR, OFFICE SERVICE COORDINATOR-C Stephanie Other Provider Dr. Genesis Garcia Other Provider Dr. Genesis Garcia Attending Provider 1([facility])[phone] Mojgan, Dr. Boo Attending Provider 1([facility])[phone] Dr. Rj Singh Attending Provider 1([facility])[phone] Dr. Dru Correa Attending Provider 1([facility])[phone] Dr. Dru Correa Other Provider 1([facility])[phone] Jim Pizarro Attending Provider 1([facility])[phone] Dr. Jim Pizarro Other Provider 1([facility])[phone] Logan Garcia Attending Provider Dr. [...] Provider Erica Cannon MD Primary Care Provider [facility], Keti Unavailable KASSANDRA HANKINS, DR MALDONADO Attending Unavailable KASSANDRA HANKINS, DR MALDONADO Primary Care Unavailable Dr. Eriac Cannon Primary Care Provider Dr. Princess Tran Emergency Provider Dr. Sam Perez Admit Provider Dr. Sam Perez Other Provider Dr. Lisa Mendoza Attending Provider Dr. Lisa Mendoza Other Provider Dr. Ammy Agarwal Other Provider Dr. Winter Hamm Attending Provider Dr. Winter Hamm Other Provider Dr. Raysa Knox Other Provider Dr. Raysa Knox Attending Provider Dr. Jim Pizarro Other Provider Dr. Jim Pizarro Attending Provider [facility], Keti Unavailable [facility], Leticia Unavailable Erica Cannon MD Primary Care Provider [facility], Leticia Unavailable [place] [employer]IVE GROWER.RAW MILL OPERATOR, Lydia Unavailable Susy [facility]IVE GROWER[facility], Silvestre Unavailable Susy OLIVE GROWER.[facility], Silvestre Unavailable Susy OLIVE GROWER.[facility], Silvestre Unavailable Susy OLIVE GROWER.[facility], Silvestre Unavailable [place] OLIVE GROWER.RAW MILL OPERATOR, Lydia Unavailable Kassandra HANKINS, Dr. Erica Ventura [...] SINDIAMPAS, ERICA D Primary Care Unavailable RJ DEMPSEY Attending Unavailable MASCI, RJ A Referring Unavailable TALAMPAS, ERICA D Primary Care Unavailable TALAMPAS, ERICA D Primary Care Unavailable TALAMPAS, ERICA D Referring Unavailable KATYA BIGGS Attending Unavailable TALAMPAS, ERICA D Primary Care [...] D Primary Care Unavailable MASCI, RJ A Attending Unavailable TALAMPAS, ERICA D Primary Care Unavailable MASCI, RJ A Referring Unavailable TALAMPAS, ERICA D Primary Care Unavailable MASCI, RJ A Referring Unavailable TALAMPAS, ERICA D Primary Care Unavailable MASCI, RJ A Referring Unavailable TALAMPAS, ERICA D Primary Care Unavailable LYDIA NORTH Attending Unavailable TALAMPAS, ERICA D Primary Care Unavailable SUSY, SILVESTRE Referring Unavailable TALAMPAS, ERICA D Primary Care Unavailable ZAYDA JACKSON Attending Unavailable TALAMPAS, ERICA D Primary Care Unavailable SUSYSILVESTRE Attending Unavailable TALAMPAS, ERICA D Primary Care Unavailable SUSY, SILVESTRE Referring Unavailable TALAMPAS, ERICA D Primary Care Unavailable Talampas Dr. Erica HANKINS Primary Care Physician Dr. Erica Cannon MD Referring Provider Dr. Sam Goodson DO Attending Physician Dr. Jennifer Otto MD Attending Physician Dr. Jennifer Otto MD Referring Provider Talampas, Erica D Primary Care Unavailable Nguyen, Lewis Attending Unavailable Nguyen, Acme Referring Unavailable Talampas, Erica D Primary Care Unavailable Jennifer Otto Attending Unavailable Talampas, Erica Lorenzo Referring Unavailable Talampas, Erica D Referring Unavailable Talampas, Erica D Primary Care Unavailable Raysa Knox Attending Unavailable Talampas, Erica D Primary Care Unavailable Talampas, Erica D Referring Unavailable Robotham, Raysa Attending Unavailable Talampas, Erica D Primary Care Unavailable Jennifer Otto Attending Unavailable Talampas, Erica D Referring Unavailable Sam Goodson Attending Unavailable Talampas, Erica D Primary Care Unavailable Talampas, Erica D Referring Unavailable Talampas, Erica D Referring Unavailable Talampas, Erica D Primary Care Unavailable Lisette, Raysa Attending Unavailable Talampas, Erica D Referring Unavailable Sam Goodson Attending Unavailable Talampas, Erica D Primary Care Unavailable Lewis Cedillo Attending Unavailable Talampas, Erica D Primary Care Unavailable Talampas, Erica D Referring Unavailable Talampas, Erica D Primary Care Unavailable Jennifer Otto Attending Unavailable Jennifer Otto Referring Unavailable Allergies Allergy Classification Reported Allergen(s) Allergy Type Date of Onset Reaction(s) Facility Acetaminophen / HYDROcodone (1 source) Acetaminophen / HYDROcodone Drug Allergy 02-08-20 05 Itching [facility] Work Phone: busPIRone (1 source) busPIRone Drug Allergy 09-15-19 15 Other: See Comments [facility] Work Phone: Codeine / guaiFENesin (1 source) Codeine / guaiFENesin Drug Allergy 11-24-19 14 Itching [facility] Work Phone: Corticosteroids (1 source) predniSONE Drug Allergy 12-25-19 10 Mental Status Change [facility] Doxycycline (1 source) Doxycycline Drug Allergy 04-13-19 14 Intolerance, Vomiting [facility] Work Phone: Iodine (and Iodine containting drugs) (1 source) Iodine Drug Allergy 04-08-19 04 [facility] Latex (1 source) Latex Substance Allergy 04-08-19 04 [facility] NSAIDs (2 sources) celecoxib Drug Allergy 11-07-19 13 Other: See Comments, Rash [facility] Opioid Agonists (1 source) Codeine Drug Allergy 02-27-19 07 GI Upset [facility] Work Phone: Penicillins (antibiotic) (1 source) Penicillins Drug Allergy 02-27-19 07 Swelling, Shortness of Breath [facility] Quinolones (antibiotic) (2 sources) Ciprofloxacin Drug Allergy 04-15-19 18 Diarrhea, GI Upset [facility] Sucralfate (1 source) Sucralfate Drug Allergy 12-13-19 07 [facility] (20 sources) acetaminophen / HYDROcodone; Translations: [HYDROCODONE-ACET AMINOPHEN] Drug Allergy 02-08-20 05 Itching [facility] (20 sources) busPIRone; Translations: [BUSPIRONE HCL] Drug Allergy 09-15-19 15 Other: See Comments [facility] (20 sources) celecoxib; Translations: [CELECOXIB] Drug Allergy 11-07-19 13 Other: See Comments [facility] (20 sources) codeine; Translations: [CODEINE] Drug Allergy 02-27-19 07 GI Upset [facility] (20 sources) codeine / guaiFENesin; Translations: [CHERATUSSIN] Drug Allergy 11-24-19 14 Itching [facility] (20 sources) doxycycline; Translations: [DOXYCYCLINE] Drug Allergy 04-13-19 14 Intolerance, Vomiting [facility] (20 sources) iodine; Translations: [IODINE] Drug Allergy 04-08-19 04 Swelling [facility] (20 sources) Latex; Translations: [LATEX] Propensity to adverse reactions (disorder) 04-08-19 04 Shortness of breath [facility] (20 sources) levoFLOXacin; Translations: [LEVOFLOXACIN] Drug Allergy 04-15-19 18 GI Upset [facility] (20 sources) meloxicam; Translations: [MELOXICAM] Drug Allergy 05-18-19 14 Rash [facility] (20 sources) Penicillins; Translations: [PENICILLINS] Propensity to adverse reactions (disorder) 02-27-19 07 Swelling, Shortness of Breath [facility] (20 sources) predniSONE; Translations: [PREDNISONE] Drug Allergy 12-25-19 10 Mental Status Change [facility] (20 sources) sucralfate; Translations: [SUCRALFATE] Drug Allergy 12-13-19 07 Unable to swallow [facility] (20 sources) Ciprofloxacin; Translations: [CIPROFLOXACIN] Drug Allergy 11-10-19 20 Diarrhea [facility] (1 source) Acetaminophen / HYDROcodone; Translations: [acetaminophen-hy drocodone] Drug Allergy itching and swelling [facility] (1 source) Penicillin; Translations: [penicillins] Drug Allergy [facility] (10 sources) HYDROcodone; Translations: [hydrocodone bitartrate] Drug Allergy 08-01-19 Nausea/Vom/Jeanne rrhea, Hives [facility] (7 sources) tositumomab Drug Allergy 11-19-19 NEEDS FOLLOW-UP [facility] (20 sources) Tirzepatide; Translations: [TIRZEPATIDE] Drug Intolerance 08-22-19 23 Diarrhea, Vomiting [facility] Work Phone: (1 source) busPIRone Drug Allergy 12-21-19 Insomnia [facility] (1 source) busPIRone Drug Allergy 12-25-19 [facility] Rep[facility] (1 source) tositumomab Drug Allergy 12-25-19 [facility] Repository Medications Current Medications Medication Drug [...] (Ventolin Hfa) 90 mcg/actuation HFA aerosol inhaler Discontinued 2 NMA INHALATION Q4H as needed for shortness of breath or wheezing 18 September 17, 2022 1:03pm March 18, 2023 10:35am Start: 01-30-2022 take 1 puff(s) by in halation every four hours Albuterol Sulfate (Ventolin Hfa) 90 mcg/actuation HFA aerosol inhaler Active 2 PUFF INHALATION Q4H January 30, 2022 1:00am Start: 07-22-2019 End: 09-20-2022 take 2 puff(s) by inhalation every four hours as needed for wheezing albuterol HFA (PROVENTIL HFA, VENTOLIN HFA) 90 mcg/actuation inhaler Indications: QEUEN (dyspnea on exertion) Inhale 2 Puffs as instructed every 4 hours as needed for wheezing/shortness of breath. May give preferred namebrand (per formulary and/or patient preference) 3 Each 3 03/23/2022 09/20/2022 Discontinued Start: 05-26-2013 albuterol Inha lation Soln 2.5 mg/0.5 mL 0 Refill(s) Start Date: 05/26/13 Status: Ordered Start: 05-26-2013 take 1 dose by inhal ation every six hours as needed albuterol Inhalation Soln 2.5 mg/3 mL (0.083%) Dose : 2.5 mg = 3 mL, Inhalation, q6hr, PRN respiratory distress Start Date: 05/26/13 Status: Ordered Start: 11-23-2012 End: 09-24-2023 take 2.5 mg by inhalation every six hours as needed Albuterol Sulfate 2.5 MG/3 ML solution for nebulization Active 2.5 mg INHALATION EVERY 6 HOURS WHILE AWAKE as needed for Asthma November 23, 2012 12:00am Complies with drug therapy Comment on above: Inhale 2 Puffs as [...] for wheezing Start Date: 05/26/13 Status: Ordered Umsba-Aljl-Keokg-Co llag-Mv-Min (Juan (With Collagen)) 7-7-1.5 gram Powder In Packet (1 source) Start: 2 Hronh-Jawr-Rlpkp-C rtqao-Mp-Tcs (Juan (With Collagen)) 7-7-1.5 gram Powder In Packet Active 1 PACKET PO TWICE DAILY WITH MEALS August 15, 2021 12:00am ascorbic acid 500 mg oral tablet (20 sources) Vitamin C Start: 5 take 1 tablet by mouth once daily Ascorbic Acid (Vitamin C) 500 mg tablet Active 500 mg PO daily 90 December 20, 2024 12:00am Complies with drug therapy Start: 05-23-2023 End: 10-27-2025 take 1 tablet by mouth once daily ascorbic acid, vitam in C, (VITAMIN C) 500 mg tablet Take [...] mg PO TWICE DAILY WITH MEALS 0 August 15, 2021 12:00am Complies with drug therapy Comment on above: Take 1 tablet by juan f th once daily. atorvastatin 10 mg oral tablet (20 sources) HMG-CoA Reductase Inhibitor Start: 4 End: 6 take 1 tablet by mouth once daily Atorvastatin 10 mg tablet Active 10 mg PO daily December 08, 2024 12:00am Complies with drug therapy Start: 07-16-2017 End: 11-05-2022 take 1 tablet [...] take 1 tablet by mouth once daily Bupropion Hcl 300 mg tablet extended release 24 hr Active 300 mg PO daily June 30, 2023 12:00am Complies with drug therapy Start: 02-11-2023 End: 04-14-2023 take 1 tablet [...] 10 MG PO THREE TIMES A DAY August 15, 2021 12:00am cephalexin 500 mg [...] above: Take 1 capsule by mo ut three times daily for 7 days. Take 1 capsule by mo ut three times daily for 7 days. Take with food cholecalciferol 0.125 mg oral capsule (20 sources) Vitamin D Start: 12-21-19 take 1 capsule by mouth once daily Cholecalciferol (Vitamin D3) 125 mcg (5,000 unit) capsule Active 125 ug PO daily December 20, 2024 12:00am Complies with drug therapy Start: 04-29-2024 take 1 capsule by mo uth once daily Cholecalciferol, Vitamin D3, 125 mcg (5,000 unit) cap Take 1 capsule by mouth once daily. 90 capsule 3 04/29/2024 Active Start: 06-30-2023 End: 12-20-2024 take 1 capsule by mouth once daily Cholecalciferol (Vitamin D3) 50 mcg (2,000 unit) capsule Discontinued 50 ug PO daily June 30, 2023 12:00am December 20, 2024 8:52am Start: 06-30-2023 take 1 capsule by mo [...] uth once daily. Take 2 capsules by m outh once daily. clindamycin 300 mg oral capsule [...] capsule by mo uth three times a day for 7 days. [...] Muscle Relaxant Start: 021 End: 025 take 1 tablet by mouth three times daily as needed Cyclobenzaprine 5 mg tablet Active 5 mg PO THREE TIMES A DAY as needed June 30, 2023 12:00am Complies with drug therapy Start: 05-26-2013 Flexeril 10 mg oral tablet Dose : 10 mg = 1 tab(s), Oral, TID, PRN Muscle spasm for muscle spasm Start Date: 05/26/13 Status: Ordered Comment on above: Take 1 tablet by juan f three times daily as needed. Diaper,Brief, Adult,Disposable [...] (HCC) Bariatric Briefs - Prevail. Going thru [facility]. 2 per day. 96 Each 1 02/27/2022 08/21/2022 Discontinued Start: 02-27-2022 Diaper,Brief, Adult,Disposable (DISPOSABLE BRIEF) Indications: Morbid obesity (HCC) , Ulcer of left lower extremity, limited to breakdown of skin (HCC) Bariatric Briefs - Prevail. Going thru [facility]. 2 per day. 96 Each 1 02/27/2022 Active Comment on above: Bariatric Briefs - P revail. Going thru [facility]. 2 per day. Bariatric Briefs - P [...] needed for Pain November 18, 2021 12:00am Complies with drug therapy Start: 11-18-2021 Diclofenac Sod ium Active 1 EACH TOPICAL NEEDED November 18, 2021 12:00am Start: 11-18-2021 Diclofenac Sod ium (Voltaren) 1 % Gel Active EACH TOPICAL November 18, 2021 12:00am Start: 05-26-2013 diclofenac 3% topical gel Apply 1 cj, Topical, BID Start Date: 05/26/13 Status: Ordered dicyclomine hydrochloride 10 mg oral capsule (20 sources) Anticholinergic Start: 12-08-2024 take 1 capsule by mouth every six hours as needed Dicyclomine 10 mg capsule Active 10 mg PO EVERY 6 HOURS as needed December 08, 2024 12:00am Complies with drug therapy Start: 09-24-2023 End: 07-06-2024 take 1 capsule [...] Erythromycin (3 sources) Macrolide, Macrolide Antimicrobial Start: 11-18-2021 Erythromycin Active 1 EACH TOPICAL 1 time daily November 18, 2021 12:00am ribbon to L EYE estradiol 0.1 mg/ml vaginal cream (1 source) Estrogen Start: 12-20-2024 Estradiol 0.01 % (0.1 mg/gram) cream Active 1 g VAGINAL 3 TIMES A WEEK 42.5 90 December 20, 2024 12:00am Complies with drug therapy Start: 12-20-2024 Estradiol 0.01 % (0.1 mg/gram) cream Active 1 g VAGINAL 3 TIMES A WEEK 42.5 90 December 20, 2024 12:00am Complies with drug therapy flash glucose scanning reader (FREESTYLE SHAKIRA 2 READER) (1 source) Start: 04-09-2022 End: 04-10-2022 flash glucose scanning reader (FREESTYLE SHAKIRA 2 READER) Use to check blood sugar at least four (4) times daily. 1 Each 0 04/09/2022 04/10/2022 Active Comment on above: Use to check blood s ugar at least four (4) times daily. fluticasone propionate 0.05 mg/actuat metered dose nasal spray (20 sources) Corticosteroid Start: 08-16-2024 take 1 spray(s) nasal route once daily [...] Sinus Symptoms 09 08January 30, 2022 11:11am Complies with drug therapy Start: 02-22-2016 End: 01-30-2022 Fluticasone Propionate Activ [...] use. 1 each 11 10/27/2024 Active Start: 06-30-2023 Mometasone-For moterol (Dulera) 200-5 mcg/actuation HFA aerosol inhaler Active 2 NMA INHALATION TWICE A DAY June 30, 2023 12:00am Complies with drug therapy Start: 04-14-2023 End: 08-16-2023 take 1 puff(s) [...] Puffs as instructed twice daily. 1 Inhaler 08/14/2020 11/05/2022 Discontinued Comment on above: Inhale 2 Puffs as in structed twice daily. Inhale 1 Puff as ins tructed two times a day. Rinse mouth after use. furosemide 20 mg oral tablet (20 sources) Loop Diuretic Start: 12-20-2024 take 1 tablet by mouth twice daily Furosemide 20 mg tablet Active 20 mg PO TWICE A DAY December 20, 2024 12:00am Complies with drug therapy Start: 06-30-2023 End: 12-20-2024 take 1 tablet by mouth once daily as needed Furosemide 40 mg tablet Discontinued 40 mg PO daily as needed June 30, 2023 12:00am December 20, 2024 8:52am Start: 08-26-2022 End: 08-30-2024 take 1-2 tablets by mouth once daily as needed for edema furosemide (LASIX) 20 mg tablet TAKE 1-2 TABLETS BY MOUTH ONCE DAILY NEEDED FOR EDEMA/ FLUID RETENTION 60 tablet 08/30/2024 Active Start: 11-20-2021 End: 08-21-2022 take 1 tablet by mouth once daily Furosemide (Lasix) 40 mg tablet Discontinued 40 mg PO DAILY 1 0 November 20, 2021 12:00am August 19, 2022 [...] take 2 tablets by mouth twice daily Furosemide 40 MG tablet Discontinued 80 mg PO TWICE DAILY January 24, 2016 1:00am August 15, 2021 10:56am Start: 01-24-2016 End: 08-15-2021 take 80 mg by mouth twice daily Furosemide Discontinue d 80 MG PO TWICE DAILY January 24, 2016 1:00am August 15, 2021 10:56am Start: 05-26-2013 Lasix 40 mg or al tablet Dose : 40 mg = 1 tab(s), Oral, Daily Start Date: 05/26/13 Status: Ordered Comment on above: Take 2 tablets by mo [facility] twice daily. Take 1 tablet by [facility] once daily. Take 1-2 tablets by mouth once daily as needed (edema/fluid retention). TAKE 1-2 TABLETS BY MOUTH ONCE DAILY NEEDED FOR EDEMA/ FLUID RETENTION 1.5 ml insulin glargine 300 unt/ml pen injector (13 sources) Insulin Analog Start: 11-18-2021 Insulin Glargine [...] 5-15minutes. Use in addition to albuterol nebulizer. lactobacillus acidophilus [id number] unt oral capsule (1 source) Start: 12-20-2024 Lactobacillus Acidophilus 500 million cell capsule Active 500 NMA PO daily 90 December 20, 2024 12:00am Complies with drug therapy Start: 12-20-2024 Lactobacillus Acidophilus 500 million cell capsule Active 500 NMA PO daily 90 December 20, 2024 12:00am Complies with drug therapy lactulose 667 mg/ml oral solution (2 sources) Osmotic Laxative Start: 11-20-2021 take 20 g by mouth twice daily Lactulose Active 20 GM PO TWICE A DAY 1199November 20, 2021 12:00am stop if patient having diarrhea LORazepam 1 mg oral tablet (20 sources) Benzodiazepine Start: 09-06-2024 End: 11-07-2024 take 0.5-1 tablets by mouth once daily [...] mg PO DAILY June 30, 2023 1:14pm Complies with drug therapy Start: 01-30-2022 End: 06-30-2023 take 1 tablet [...] by juan f th once daily. Magnesium (9 sources) Start: 07-31-2021 take 250 mg by [...] release oral tablet (20 sources) Biguanide Start: 12-08-2024 take 1 tablet by mouth once daily Metformin 500 mg tablet extended release 24 hr Active 500 mg PO daily December 08, 2024 12:00am Complies with drug therapy Start: 04-29-2024 End: 09-28-2024 take 1 tablet by mouth once daily metFORMIN ER (GLUCOPHAGE XR) 500 mg 24 hr tablet Take 1 tablet by mouth once daily. 30 tablet 2 09/28/2024 Active Start: 05-26-2013 metFORMIN 500 mg oral tablet Dose : 500 mg = 1 tab(s), Oral, BIDM Start Date: 05/26/13 Status: Ordered metOLazone 5 mg oral tablet (20 sources) Thiazide-like Diuretic Start: 12-20-2024 take 1 tablet by mouth once daily as needed Metolazone 5 mg tablet Active 5 mg PO daily as needed December 20, 2024 8:49am Complies with drug therapy Start: 12-06-2022 End: 01-25-2025 take 1 tablet by mouth once daily Metolazone 5 mg tablet Discontinued 5 mg PO daily June 30, 2023 12:00am December 20, 2024 8:53am Start: 07-29-2021 End: 08-15-2021 take 1 tablet [...] as needed. Take 1/2 hour before lasix. Miscellaneous Medical Supply (20 sources) Start: 10-29-2019 Miscellaneous Medical Supply Indications: Hypoxemia [...] mcg/actuation HFA aerosol inhaler (1 source) Start: Mometasone-Formoterol (Dulera) 200-5 mcg/actuation HFA aerosol inhaler Active 2 NMA INHALATION TWICE A DAY June 30, 2023 12:00am montelukast 10 mg oral tablet (20 sources) Leukotriene Receptor Antagonist Start: End: take 1 tablet by mouth once daily Montelukast 10 mg tablet Active 10 mg PO daily June 30, 2023 12:00am Complies with drug therapy Comment on above: Take 1 tablet by [...] on above: Take 1 capsule by mo [facility] two times a day with meals for 7 days. Take 1 capsule by mo [facility] two times a day. nystatin 100 unt/mg topical powder (20 sources) Polyene Antifungal Start: 12-08-2024 Nystatin 100,000 unit/gram powder Active 1 NMA TOPICAL daily December 08, 2024 12:00am Complies with drug therapy Start: 05-21-2022 End: 09-28-2024 nystatin (MYCOSTATIN) powder Apply 1 application to affected area four times daily. 60 g 11 09/28/2024 Active Start: 03-26-2022 End: 04-09-2022 nystatin (MYCOSTATIN) powder Apply 1 application to [...] daily. olmesartan medoxomil 40 mg oral tablet (17 sources) Angiotensin 2 Receptor Eric Start: 12-20-2024 take 1 tablet by mouth once daily Olmesartan 40 mg tablet Active 40 mg PO daily December 20, 2024 12:00am Complies with drug therapy Start: 09-07-2024 take 1 tablet by juan f th once daily olmesartan (BENICAR) 40 mg tablet Indications: Primary hypertension Take 1 tablet by mouth once daily. 90 tablet 3 09/07/2024 Active oxyCODONE hydrochloride 5 mg oral tablet (18 sources) Opioid Agonist Start: 11-20-2021 take 5 mg by mouth three times daily Oxycodone Active 5 MG PO THREE TIMES A DAY 08 07November 20, 2021 Start: 11-18-2021 End: 11-20-2021 take [...] tablet (20 sources) Proton Pump Inhibitor Start: 12-08-2024 take 1 tablet by mouth once daily Pantoprazole 40 mg tablet,delayed release (DR/EC) Active 40 mg PO daily December 08, 2024 12:00am Complies with drug therapy Start: 03-02-2022 End: 12-26-2023 take 1 tablet by mouth once daily Pantoprazole 40 mg tablet,delayed release (DR/EC) Discontinued 40 mg PO daily June 30, 2023 12:00am December 26, 2023 1:59pm Start: 06-19-2020 End: 03-02-2022 take 1 tablet [...] f th once daily. polyethylene glycol 3350 63255 mg powder for oral solution (20 sources) Osmotic Laxative Start: 018 End: 025 Polyethylene Glycol 3350 (Miralax) 17 gram powder in packet Active 17 g PO DAILY as needed June 30, 2023 12:00am Complies with drug therapy Comment on above: 2 scoop in liquid da wendy as needed for bowel movement polymyxin b 21878 unt/ml / trimethoprim 1 mg/ml ophthalmic solution (4 sources) Dihydrofolate Reductase Inhibitor Antibacterial, Polymyxin-class Antibacterial Start: 023 End: 023 take 1 drop(s) into the eye(s) four [...] extended release oral tablet (20 sources) Start: 025 End: 025 take 1 tablet by mouth twice daily potassium chloride ER (KLOR-CON) 20 mEq tablet Take 1 tablet by mouth two times a day. As directed 60 tablet 5 06/08/2024 Active Start: 08-19-2022 End: 02-27-2024 take 1 tablet by mouth twice daily potassium chloride ER (KLOR-CON) 20 mEq tablet Take 1 tablet by mouth two times a day. As directed 60 tablet 2 12/26/2023 02/27/2024 Discontinued Start: 11-18-2021 End: 11-20-2021 take 2 tablets [...] on above: Take 2 tablets by mo [facility] three times daily. Take 1 tablet by juan f twice daily. As directed Take 1 tablet by juan f th two times a day. As directed sulfamethoxazole 800 mg / trimethoprim 160 mg oral tablet (14 sources) Dihydrofolate Reductase Inhibitor Antibacterial, Sulfonamide Antimicrobial [...] Comment on above: Take 1 capsule by [facility] at bedtime as needed for up to 30 days. Tirzepatide (1 source) Start: 06-30-2023 End: 12-20-2024 Tirzepatide (Mounjaro) 2.5 mg/0.5 mL pen injector Discontinued 5 mg SC June 30, 2023 12:00am December 20, 2024 8:52am Tirzepatide (Mounjaro) 2.5 mg/0.5 mL pen injector (1 source) Start: 06-30-2023 Tirzepatide (Mounjaro) 2.5 mg/0.5 mL pen injector Active 5 mg SC June 30, 2023 12:00am Tirzepatide (Weight Loss) (1 source) Start: 12-20-2024 Tirzepatide (Weight Loss) (Zepbound) 7.5 mg/0.5 mL pen injector Active mg SC December 20, 2024 12:00am Complies with drug therapy tirzepatide, weight loss (ZEPBOUND) 5 mg/0.5 mL [...] 100 mg oral tablet (20 sources) Start: 12-08-2024 take 1 tablet by mouth twice daily Topiramate 100 mg tablet Active 100 mg PO TWICE A DAY December 08, 2024 12:00am Complies with drug therapy Start: 05-07-2024 take 1 tablet by juan f th twice daily topiramate (TOPAMAX) 100 mg tablet [...] to 7 days. Take 1 tablet by juan f at bedtime as needed for pain for [...] mg PO daily June 30, 2023 12:00am Complies with drug therapy Start: 11-18-2021 take 1 capsule by [facility] once daily Venlafaxine (Effexor Xr) 75 mg Capsule,Extended Release 24hr Active 75 MG PO DAILY November 18, 2021 12:00am Comment on above: Take 1 capsule by [facility] once daily. WALKER ROLLATOR SEAT WITH 6 WHEELS - RED (20 sources) Start: 10-16-2023 WALKER ROLLATOR SEAT WITH 6 WHEELS - RED Indications: Primary osteoarthritis of both knees , Unsteady gait , Decreased mobility Diagnosis: Unsteady gait, primary osteoarthritis both knees, decreased mobility 1 Each 10/16/2023 Active Start: 07-26-2023 End: 10-16-2023 WALKER ROLLATOR SEAT WITH 6 WHEELS - RED Indications: Primary osteoarthritis of both knees , Unsteady gait , Decreased mobility Diagnosis: Unsteady gait, primary osteoarthritis both knees, decreased mobility 1 Each 07/26/2023 10/16/2023 Discontinued Start: 07-26-2023 WALKER ROLLATO R SEAT WITH 6 WHEELS - RED Indications: Primary osteoarthritis of both knees , Unsteady gait , Decreased mobility Diagnosis: Unsteady gait, primary osteoarthritis both knees, decreased mobility 1 Each 0 07/26/2023 Active Start: 06-07-2022 WALKER ROLLATO R SEAT WITH 6 WHEELS - RED Indications: Unsteady gait , [...] Start: 11-18-2022 take 1 capsule by mo [facility] once daily Zinc Acetate, Oral, 25 mg (zinc) cap Take 1 capsule by mouth once daily. 90 capsule 1 11/18/2022 Active Comment on above: Take 1 capsule by mo [facility] once daily. Completed/Discontinued Medications Medication Drug Class(es) Dates Sig (Normalized) Sig (Original) acetaminophen 325 mg oral tablet (14 sources) Start: 11-20-2021 End: 06-30-2023 take 2 [...] F 0 0 August 15, 2021 12:00am Complies with drug therapy Start: 08-15-2021 take 2 tablets by mo ut every six hours as needed Acetaminophen (Tylenol) 325 mg Tablet Active 650 MG PO EVERY 6 HOURS NEEDED 0 August 15, 2021 12:00am acetaminophen 325 mg / oxyCODONE hydrochloride 5 mg oral tablet (5 sources) Opioid Agonist Start: 09-21-2024 End: 09-26-2024 take 1 tablet by mouth twice daily as needed for pain oxyCODONE-acetaminophen (PERCOCET) 5-325 mg tablet Indications: Left sided abdominal pain Take 1 tablet by mouth two times a day as needed for pain for up to 5 days. 10 tablet 09/21/2024 09/26/2024 Start: 08-04-2023 End: 12-08-2024 Oxycodone-Acetaminophen 5-32 5 mg tablet Discontinued 1 {tbl} PO EVERY 6 HOURS NEEDED as needed for Pain 12 3 0 August 04, 2023 December 08, 2024 11:04am Left lower quadrant abdominal pain Left lower [...] above: Take 1 tablet by juan f four times daily as needed for diarrhea [...] above: Take 1 capsule by mo ut three times daily as needed for cough. [...] on above: Take 2 tablets by mo [facility] four times daily. Blood Pressure Monitor (BLOOD [...] Comment on above: Take [address] [facility] once daily. cefdinir 300 mg oral capsule (2 sources) Cephalosporin Antibacterial Start: 01-02-20 End: 01-12-20 take 1 capsule by mouth twice daily cefdinir (OMNICEF) 300 mg capsule Indications: Left lower quadrant abdominal pain Take 1 capsule by mouth two times a day for 10 days. 20 capsule 0 01/01/2023 01/11/2023 Comment on above: Take 1 capsule by [facility] two times a day for [...] Comment on above: Take 1 tablet by [facility] once daily. For allergies. Can take [...] (spit out). ciprofloxacin 500 mg oral tablet (6 sources) Quinolone Antimicrobial Start: 08-04-19 End: 08-27-19 take 1 tablet by mouth every twelve [...] on above: Take 2 capsules by m out DAILY AT 6 PM. 0.5 ml dulaglutide [...] Contrast as designated per enteric contrast guidelines esomeprazole 40 mg delayed release oral capsule (1 source) Proton Pump Inhibitor Start: 11-23-19 End: 12-09-19 take 1 capsule by mouth once daily Esomeprazole Magnesium (Nexium) 40 mg capsule,delayed release(DR/EC) Discontinued 40 mg PO daily 30 0 November 22, 2024 12:00am December 08, 2024 11:02am eszopiclone 2 mg oral tablet (3 sources) [...] (3 sources) GLP-1 Receptor Agonist Start: 03-21-19 End: 03-25-19 exenatide (BYETTA) 5 mcg/dose (250 mcg/mL) 1.2 mL injection Inject 5 mcg subcutaneously twice daily with meals. Inject dose 5-60 prior to breakfast & dinner. Minimum 6 hours between meals. 1.2 mL 2 03/21/2022 03/25/2022 Discontinued Start: 03-19-2022 inject 2 mg by subcu taneous injection every week exenatide (BYAGUILARRELANDON HASTINGS) 2mg / 0.85 ml subcutaneous auto injector Inject 2 mg subcutaneously one time a week. 4 Each 5 03/19/2022 Active Comment on above: Inject 2 mg subcutan eously one time a week. Inject 5 mcg subcuta neously twice daily with meals. Inject dose 5-60 prior to breakfast & dinner. Minimum 6 [...] MEALS 0 0 August 15, 2021 12:00am Complies with drug therapy Start: 05-26-2013 ferrous sulfat e 325 mg [...] in 3 days as needed. Fluticasone Propion-Salmeterol (5 sources) Corticosteroid, beta2-Adrenergic Agonist Start: 01-30-2022 End: [...] Bandage (TENDRA MEPILEX BORDER) 4 X 4 bndg (14 sources) Start: 02-27-2022 End: 03-29-2022 Foam Bandage (TENDRA MEPILEX BORDER) 4 X 4 bndg Apply to affected area once daily. Cleanse wounds daily prior to applying dressing and pat dry. Change daily and as needed if soiled. 10 Each 3 02/27/2022 03/29/2022 Start: 02-27-2022 End: 03-29-2022 Foam Bandage (TENDRA MEPILEX BORDER) 4 X 4 bndg Apply to affected area once daily. [...] above: Take 2 tablets by mo uth twice daily. ibuprofen 400 mg oral tablet (8 sources) Nonsteroidal Anti-inflammatory Drug Start: 2 End: [...] as needed. [facility] ([facility] Start: 05-21-2022 End: 09-02-2022 Leg Brace (KNEE SUPPORT BRACE) [facility] [place] Indications: Primary osteoarthritis of both knees 1 Each as directed. 1 Each 1 05/21/2022 09/02/2022 Discontinued Start: 05-21-2022 Leg Brace (KNE E SUPPORT BRACE) misc Indications: Primary osteoarthritis of both knees 1 [...] 1 tablet by juan f once daily. magnesium chloride 535 mg delayed release oral tablet (8 sources) Start: 2021 End: 2021 Magnesium Chloride (Mag 64) 64 mg Tablet,Delayed Release (Dr/Ec) Discontinued 128 mg PO DAILY 0 August 15, 2021 12:00am November 20, 2021 11:50am magnesium oxide 400 mg oral tablet (20 sources) Start: 2020 End: 2022 take 1 tablet by mouth twice daily magnesium oxide (MAG-OX) 400 mg (241.3 mg magnesium) tablet Take 1 tablet by mouth twice daily. 60 tablet 11 07/11/2021 08/07/2022 Discontinued Comment on above: Take 1 tablet by juan f twice daily. metoclopramide 5 mg oral tablet (7 sources) Dopamine-2 Receptor Antagonist Start: 2021 End: 2021 take 1 tablet by mouth once daily Metoclopramide Hcl (Reglan) 5 mg Tablet Discontinued 5 mg PO DAILY November 18, 2021 12:00am November 20, 2021 11:53am metroNIDAZOLE 500 mg oral tablet (12 sources) Nitroimidazole Antimicrobial Start: 2023 End: 2024 take 1 tablet by mouth every eight hours Metronidazole 500 mg tablet Discontinued 500 mg PO Q8H 21 August 04, 2023 12:00am December 08, 2024 11:03am mometasone furoate 0.05 mg/actuat metered dose nasal [...] s a day. Location: left inner thigh omeprazole 40 mg delayed release oral capsule (12 sources) Proton Pump Inhibitor Start: 2023 End: 2024 take 1 capsule by mouth once daily Omeprazole 40 mg capsule,delayed release(DR/EC) Discontinued 40 mg PO daily 23 07June 08, 2024 10:53am November 22, 2024 2:56pm swallow whole; do not crush, chew, dissolve, [...] Date: 06/28/14 Stop Date: 07/12/14 Status: Ordered ondansetron 4 mg oral tablet (20 sources) Serotonin-3 Receptor Antagonist Start: 07-16-2022 End: 06-30-2023 Ondansetron Hcl 4 mg tablet Discontinued 4 mg PO NEEDED as needed for Nausea August 14, 2022 12:00am June 30, 2023 1:11pm Start: 10-05-2019 take 1 tablet by [facility] every eight hours as needed for nausea and nausea ondansetron (ZOFRAN) 4 mg tablet Indications: Nausea Take 1 tablet by mouth every 8 hours as needed. 30 tablet 1 10/05/2019 Active Comment on above: Take 1 tablet by juan f every 8 hours as needed. oxaprozin 600 [...] pain. Take 1 tablet by juan f once daily as needed. perflutren lipid microspheres [...] on above: Take 1 capsule by mo [facility] twice daily. prednisoLONE acetate 10 mg/ml ophthalmic [...] 1 tablet by juan f th daily before breakfast. Take 30 minutes before [...] mg subcutan eously one time a week. sertraline 100 mg oral tablet (20 sources) Serotonin Reuptake Inhibitor Start: 6 End: take 100-150 mg by mouth once daily Sertraline 100 MG tablet Discontinued 100 - 150 mg PO DAILY February 22, 2016 1:00am August 15, 2021 10:57am depression Start: 02-22-2016 End: 03-02-2022 take 100-150 mg by mouth once daily Sertraline Discontinued 100 - 150 MG PO DAILY February 22, 2016 1:00am August 15, 2021 10:57am Start: 02-22-2016 End: 08-15-2021 take 150 mg by mouth once daily Sertraline Active 150 MG PO DAILY 0 August 15, 2021 12:00am Comment on above: Take 1.5 tablets by mouth once daily. 125 ml sodium chloride 9 mg/ml prefilled syringe (20 sources) Start: 08-08-19 End: 11-06-19 24 sodium chloride 0.9 % (flush) 10 mL (BD POSIFLUSH) sucralfate 1000 mg oral tablet (4 sources) Aluminum Complex Start: 12-26-19 End: 12-09-19 take 1 tablet by mouth once at bedtime Sucralfate 1 gram tablet Discontinued 1 g PO before meals and at bedtime 120 0 July 16, 2024 10:32am December 08, 2024 11:04am Take an hour before meals and at bedtime tirzepatide (MOUNJARO) 10 mg/0.5 mL pen injector (10 sources) Start: 05-23-19 End: 05-30-19 inject 10 mg by subcutaneous injection every [...] pain; Translations: [Upper abdominal pain, unspecified] Onset: 5 Episodic Acquired foot deformities (1 source) Hammer toe; Translations: [Other hammer toe(s) (acquired), unspecified foot] 10-23-2022 Chronic Acquired foot deformities (3 sources) Talipes planus; Translations: [Flat foot [pes planus] (acquired), right foot] Onset: 5 10-23-2022 Episodic Acute and unspecified renal failure (16 sources) Injury of kidney; Translations: [Acute kidney [...] [Unspecified asthma, uncomplicated] 12-06-2014 Chronic Cardiac dysrhythmias (10 sources) Bradycardia; Translations: [Bradycardia, unspecified] Episodic Cataract [...] Onset: 5 Chronic Deficiency and other anemia (20 sources) Iron deficiency anemia; Translations: [Iron deficiency anemia, unspecified] Onset: 7 03-23-2009 Episodic Deficiency and other anemia (4 sources) Anemia; Translations: [Anemia, unspecified] Onset: 2 Episodic Deficiency and other anemia (7 sources) Chronic anemia; Translations: [Anemia, unspecified] 11-18-2021 [...] electrolyte disorders (20 sources) Hyperkalemia; Translations: [Hyperkalemia] Onset: 5 Episodic Genitourinary symptoms and ill-defined conditions (7 sources) Incontinence; Translations: [Functional urinary incontinence] Chronic Genitourinary symptoms and ill-defined conditions (20 sources) Dysuria; Translations: [Dysuria] Onset: 5 Episodic Heart valve disorders (1 source) Nonrheumatic aortic (valve) stenosis; Translations: [Nonrheumatic aortic (valve) stenosis] Onset: 5 Chronic Hepatitis (20 sources) Chronic hepatitis; Translations: [...] caused by bacteria; Translations: [Unspecified conjunctivitis] Episodic Malaise and fatigue (20 sources) Asthenia; Translations: [Weakness] Onset: 5 Episodic Miscellaneous mental health disorders (1 source) Primary insomnia; Translations: [Primary insomnia] Chronic Mood disorders (20 sources) Depressive disorder; Translations: [Depression] Onset: 6 01-24-2016 Chronic Mycoses (11 sources) Candidiasis of vagina; Translations: [Monilial vaginitis] Onset: 5 Episodic Nausea and vomiting (3 sources) Nausea; Translations: [Nausea] Episodic Neoplasms of unspecified nature or uncertain behavior (7 sources) IgM monoclonal gammopathy of uncertain significance; Translations: [Monoclonal gammopathy] Onset: 5 09-24-2024 Chronic Noninfectious gastroenteritis (6 sources) Gastroenteritis; Translations: [Noninfective gastroenteritis and colitis, [...] (17 sources) Patient encounter status; Translations: [Other group home (current) drug therapy] Episodic Other connective tissue [...] toe(s)] 10-23-2022 Episodic Other connective tissue disease (2 sources) Mass of soft tissue of right upper limb; Translations: [Other specified soft tissue disorders] 12-07-2021 Episodic Other diseases of bladder and urethra (1 source) Other specified disorders of bladder; Translations: [Bladder spasm] Onset: 5 Chronic Other diseases of kidney and ureters [...] malabsorption, unspecified; 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)] Onset: 5 Chronic Other gastrointestinal disorders (7 sources) Diarrhea; Translations: [Diarrhea, unspecified] Episodic Other gastrointestinal disorders (1 source) Diarrhea, unspecified; Translations: [Diarrhea] 08-19-2022 Episodic Other gastrointestinal disorders (4 sources) Constipation; Translations: [Constipation, unspecified] 05-07-2024 Episodic Other lower respiratory disease (2 sources) Dyspnea on exertion; Translations: [Dyspnea, unspecified] Episodic Other lower respiratory disease (7 sources) Chronic respiratory insufficiency; Translations: [Other abnormalities [...] syndrome 05-05-2014 Chronic Other nervous system disorders (8 sources) Chronic pain; Translations: [Other chronic pain] 08-15-2021 Chronic Other nervous system disorders (7 sources) Unable to walk; Translations: [Difficulty in [...] Chronic Other nutritional; endocrine; and metabolic disorders (14 sources) Obesity; Translations: [Obesity, unspecified] Chronic Other nutritional; endocrine; and metabolic disorders (8 sources) Alveolar hypoventilation; Translations: [Morbid (severe) obesity with alveolar hypoventilation] 11-18-2021 Chronic Other nutritional; endocrine; and metabolic disorders (6 sources) Other obesity due to excess calories; Translations: [Obesity, unspecified] Chronic Other nutritional; endocrine; and metabolic disorders (8 sources) Morbid (severe) obesity with alveolar hypoventilation; Translations: [Obesity hypoventilation syndrome] Chronic Other nutritional; endocrine; and metabolic disorders (5 sources) Obesity caused by energy imbalance; Translations: [...] to 44.9 in adult (HCC)] Onset: 5 Chronic Other nutritional; endocrine; and metabolic disorders (1 source) Body mass index (BMI) 40.0-44.9, adult; Translations: [Class 3 severe obesity due to excess calories without serious comorbidity with body mass index (BMI) of 40.0 to 44.9 in adult (HCC)] Onset: 5 Chronic Other nutritional; endocrine; [...] (adult) (pediatric)] 03-30-2019 Chronic Residual codes; unclassified (4 sources) Sleep apnea; Translations: [Sleep apnea, unspecified] 05-05-2014 Chronic Residual codes; unclassified (1 source) Obstructive sleep apnea (adult) (pediatric); Translations: [Obstructive sleep apnea] Onset: 0 Chronic Residual codes; unclassified (1 source) Sleep apnea, unspecified; Translations: [Severe sleep apnea] Onset: 5 Chronic Residual codes; unclassified (1 source) Dependence on continuous positive airway pressure ventilation; Translations: [Dependence on other enabling machines and devices] 12-20-2024 Chronic Comment on above: non compliant Residual codes; unclassified (1 source) Did not [...] 5 Episodic Respiratory failure; insufficiency; arrest (adult) (8 sources) Chronic hypoxemic respiratory failure; Translations: [Chronic respiratory failure with hypoxia] 05-19-2023 Chronic Skin and subcutaneous tissue infections (2 sources) Infection of skin; Translations: [Local infection of the skin and subcutaneous tissue, unspecified] Episodic Superficial injury; contusion (7 sources) Hematoma of axilla; Translations: [Contusion of [...] adult (HCC)] Onset: 5 Urinary tract infections (14 sources) Acute cystitis; Translations: [Acute cystitis with hematuria] Onset: 5 06-23-2024 Episodic Varicose veins of lower extremity (1 source) Stasis ulcer 05-05-2014 Episodic Past or Other Problems Problem Classification Problem Date Documented Da te Episodic/Chronic Deficiency and other anemia (5 sources) Iron deficiency anemia, unspecified; Translations: [Iron deficiency anemia, unspecified] Onset: 03-23-2009 Episodic Deficiency and other anemia (4 sources) Anemia, unspecified; Translations: [Anemia, unspecified] Onset: 08-24-2024 Episodic Other aftercare (1 source) Encounter for therapeutic drug level monitoring; Translations: [Encounter for therapeutic drug monitoring] Onset: 08-16-2024 Episodic Other aftercare (1 source) 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 [place] [address] OFFICE VISIT Date of Service: 12/24/24 MR#: [id number] Acct: [id number] Name: MEGGAN ARITA Rep #: [id number] : 1960 Provider: Dr. Lewis Cedillo MD Age/Sex: 64/F Location: [facility] [place] Status: Signed HPI HPI History of Present Illness Details: The patient is a 64-year-old female with a history of aortic stenosis, hypertension and obesity, presenting for evaluation of worsening aortic valve narrowing. The patient reports a history of a heart murmur and was recently advised to follow up with a insole taper after an echocardiogram revealed worsening aortic valve stenosis compared to a previous study from 07/2022. She denies experiencing chest pain, dyspnea, or fatigue. She has been receiving iron infusions and is currently on a weight loss medication, which was recently switched due to insurance coverage issues. She has lost a significant amount of weight and aims to lose an additional 50 pounds. It appears that she underwent a routine echocardiogram done at the [facility] and it demonstrated an ejection fraction of 62% with grade 2 diastolic dysfunction right ventricular systolic pressure of 61 mmHg and a peak aortic valve gradient of 42 mmHg with moderate calcification and a mean gradient of 25 mmHg. She tells me that she is minimally symptomatic otherwise. Her physical exam is significant for clear lung sims regular rate and rhythm 3/6 systolic murmur ejection systolic at the left sternal border radiating towards the carotids. Electrocardiogram demonstrates sinus rhythm with a first-degree AV block and a rate of 80 bpm. Intake Vital Signs 12/26/23 13:25 12/20/24 10:53 12/24/24 10:00 Height 5 ft 8 in 5 ft 8 in 5 ft 8 in Weight: 343 lb BMI 52.1 BP 147/75 H Blood Pressure Location Lt brachial Position Sitting Respiration 16 Pulse 79 Pulse Source Monitor Intake Visit Reasons: RE-EST (SELF) Companion Caregiver Required: No Is patient in pain?: No Allergies sucralfate (From Carafate) Allergy (Intermediate, Verified 12/24/24 10:19) Unable to swallow codeine Allergy (Verified 12/24/24 10:19) Nausea/Vom/Diarrhea iodine Allergy (Verified 12/24/24 10:19) Swelling latex Allergy (Verified 12/24/24 10:19) Shortness of breath meloxicam Allergy (Verified 12/24/24 10:19) Rash Penicillins Allergy (Verified 12/24/24 10:19) Shortness of breath tositumomab Allergy (Verified 12/24/24 10:19) NEEDS FOLLOW-UP buspirone (From BuSpar) Adverse Reaction (Severe, Verified 12/24/24 10:19) Insomnia doxycycline Adverse Reaction (Severe, Verified 12/24/24 10:19) Vomiting prednisone Adverse Reaction (Severe, Verified 12/24/24 10:19) Mental status changes hydrocodone bitartrate (From Vicodin) Adverse Reaction (Verified 12/24/24 10:19) Hives Medications ???Medication ???Instructions ???Recorded ???Confirmed ???Type albuterol sulfate 2.5 mg/3 mL 2.5 mg inhalation Q6HWA.RT PRN 12/24/24 History (0.083 %) solution for nebulization Asthma acetaminophen 325 mg tablet 650 mg (2 x 325 mg) PO Q6H PRN PRN 08/15/21 12/24/24 Rx (Tylenol) Pain Score 1-10/Temp > 100.7 F #0 tabs diclofenac sodium 1 % topical gel 1 ea topical PRN PRN Pain 11/18/2 2 12/20/24 History lorazepam 1 mg tablet 1 mg PO BID PRN PRN Anxiety #5 tab s 11/20/21 12/24/24 Rx fluticasone propionate 50 2 spray DAILY PRN Sinus Symptoms 1 04/02/21 12/24/24 Rx mcg/actuation nasal #16 grams spray,suspension potassium chloride 20 mEq 20 meq PO BIDCM #14 tabs 08/19/22 12/24/24 Rx tablet,extended release(part/cryst) (Klor-Con M) albuterol sulfate 90 mcg/actuation 2 puff inhalation Q4H PRN 12/24/24 Rx aerosol inhaler (Ventolin HFA) shortness of breath or wheezing #18 grams bupropion HCl 300 mg 24 hr tablet, 300 mg PO QDAY 06/30/23 12/24/24 History extended release cyclobenzaprine 5 mg tablet 5 mg PO TID PRN 06/30/23 12/24/24 History losartan 50 mg tablet 100 mg PO DAILY 06/30/23 12/24/24 History mometasone-formoterol HFA 200 2 puff inhalation BID 06/30/23 History mcg-5 mcg/actuation aerosol inhaler (Dulera) montelukast 10 mg tablet 10 mg PO QDAY 06/30/23 12/24/24 Hi story polyethylene glycol 3350 17 gram 17 g PO DAILY PRN 06/30/23 5 History oral powder packet (Miralax) venlafaxine 75 mg capsule,extended 75 mg PO QDAY 06/30/23 12/24/24 History release 24 hr atorvastatin 10 mg tablet 10 mg PO QDAY 12/08/24 12/24/24 Hi story dicyclomine 10 mg capsule 10 mg PO Q6 PRN 12/08/24 12/20/24 History nystatin 100,000 unit/gram topical 1 applic topical QDAY 12/08/24 1 History powder pantoprazole 40 mg tablet,delayed 40 mg PO QDAY 12/08/24 12/24/24 H istory release topi (more content not included)... Normal [facility] - Chemistry and C hemistry - challengeOrdered By: Jennifer Otto on 12-20-2024 Bilirubin Ql (U) Small (1+) [facility] Glucose Ql (U) Negative [facility] Ketones Ql (U) Negative [facility] pH (U) 5.5 [pH] [facility] Specific gravity (U) [Rel density] 1.025 [facility] Urobilinogen (U) [Mass/Vol] 0.0007289 mg/dL [facility] - Hematology and Cell countsOrdered By: Jennifer Otto on 12-20-2024 Hemoglobin Ql (U) Trace [facility] - UrinalysisOrder ed By: Jennifer Otto on 12-20-2024 Nitrite Ql (U) Negative [facility] Protein Ql (U) Trace [facility] MR/Ayo 12-20-2024 MR/MEHRDAD [facility] [address], [address] [place] [address] OFFICE VISIT Date of Service: 12/20/24 MR#: [id number] Acct: [id number] Name: MEGGAN ARITA Rep #: [id number] : 1960 Provider: Dr. Jennifer Justin i, MD Age/Sex: 63/F Location: [facility] Status: Signed Intake Vital Signs 12/08/24 10:56 12/20/24 10:53 Height 5 ft 8 in 5 ft 8 in Weight: 340 lb 340 lb BMI 51.7 51.7 BP 135/75 H 141/76 H Pulse 76 80 Intake Visit Reasons: cystoscopy and pelvic exam Chief Complaint: cystoscopy and pelvic exam Companion Caregiver Required: No Accompanied by: Is patient in pain?: Yes (craping in abdomen ) Pain scale (1-10): 7 Allergies sucralfate (From Carafate) Allergy (Intermediate, Verified 12/20/24 10:52) Unable to swallow codeine Allergy (Verified 12/20/24 10:52) Nausea/Vom/Diarrhea iodine Allergy (Verified 12/20/24 10:52) Swelling latex Allergy (Verified 12/20/24 10:52) Shortness of breath meloxicam Allergy (Verified 12/20/24 10:52) Rash Penicillins Allergy (Verified 12/20/24 10:52) Shortness of breath tositumomab Allergy (Verified 12/20/24 10:52) NEEDS FOLLOW-UP buspirone (From BuSpar) Adverse Reaction (Severe, Verified 12/20/24 10:52) Insomnia doxycycline Adverse Reaction (Severe, Verified 12/20/24 10:52) Vomiting prednisone Adverse Reaction (Severe, Verified 12/20/24 10:52) Mental status changes hydrocodone bitartrate (From Vicodin) Adverse Reaction (Verified 12/20/24 10:52) Hives Medications ???Medication ???Instructions ???Recorded ???Confirmed ???Type albuterol sulfate 2.5 mg/3 mL 2.5 mg inhalation Q6HWA.RT PRN 12/20/24 History (0.083 %) solution for nebulization Asthma acetaminophen 325 mg tablet 650 mg (2 x 325 mg) PO Q6H PRN PRN 08/15/21 12/20/24 Rx (Tylenol) Pain Score 1-10/Temp > 100.7 F #0 tabs ascorbic acid (vitamin C) 500 mg 500 mg PO BIDCM #0 tabs 08/15/21 1 Rx tablet ferrous sulfate 325 mg (65 mg 325 mg PO BIDCM #0 tabs 08/15/21 1 Rx iron) tablet (FeroSul) diclofenac sodium 1 % topical gel 1 ea topical PRN PRN Pain 11/18/2 2 12/20/24 History lorazepam 1 mg tablet 1 mg PO BID PRN PRN Anxiety #5 tab s 11/20/21 12/20/24 Rx fluticasone propionate 50 2 spray DAILY PRN Sinus Symptoms 1 04/02/21 12/20/24 Rx mcg/actuation nasal #16 grams spray,suspension potassium chloride 20 mEq 20 meq PO BIDCM #14 tabs 08/19/22 12/20/24 Rx tablet,extended release(part/cryst) (Klor-Con M) albuterol sulfate 90 mcg/actuation 2 puff inhalation Q4H PRN 12/20/24 Rx aerosol inhaler (Ventolin HFA) shortness of breath or wheezing #18 grams bupropion HCl 300 mg 24 hr tablet, 300 mg PO QDAY 06/30/23 12/20/24 History extended release cyclobenzaprine 5 mg tablet 5 mg PO TID PRN 06/30/23 12/20/24 History losartan 50 mg tablet 100 mg PO DAILY 06/30/23 12/20/24 History mometasone-formoterol HFA 200 2 puff inhalation BID 06/30/23 History mcg-5 mcg/actuation aerosol inhaler (Dulera) montelukast 10 mg tablet 10 mg PO QDAY 06/30/23 12/20/24 Hi story polyethylene glycol 3350 17 gram 17 g PO DAILY PRN 06/30/23 5 History oral powder packet (Miralax) venlafaxine 75 mg capsule,extended 75 mg PO QDAY 06/30/23 12/20/24 History release 24 hr atorvastatin 10 mg tablet 10 mg PO QDAY 12/08/24 12/20/24 Hi story dicyclomine 10 mg capsule 10 mg PO Q6 PRN 12/08/24 12/20/24 History metformin 500 mg tablet,extended 500 mg PO QDAY 12/08/24 12/20/24 H istory release 24 hr nystatin 100,000 unit/gram topical 1 applic topical QDAY 12/08/24 1 History powder pantoprazole 40 mg tablet,delayed 40 mg PO QDAY 12/08/24 12/20/24 H istory release topiramate 100 mg tablet 100 mg PO BID 12/08/24 12/20/24 Hi story Lactobacillus acidophilus 500 500 mmu cells PO QDAY #90 caps 12/20/24 Rx million cell capsule ascorbic acid (vitamin C) 500 mg 500 mg PO QDAY #90 tabs 12/20/24 1 Rx tablet cholecalciferol (vitamin D3) 125 125 mcg PO QDAY 12/20/24 12/20/24 History mcg (5,000 unit) capsule estradiol 0.01% (0.1 mg/gram) 1 g vaginal 3XW 3 months #42.5 12/20/24 Rx vaginal cream grams furosemide 20 mg tablet 20 mg PO BID 12/20/24 12/20/24 His tory metolazone 5 mg tablet 5 mg PO QDAY PRN 12/20/24 12/20/24 History olmesartan 40 mg tablet 40 mg PO QDAY 12/20/24 12/20/24 Hi story tirzepatide (weight loss) 7.5 mg subcut 12/20/24 12/20/24 Histor y mg/0.5 mL subcutaneous pen injector (Zepbound) Have you fallen in the past year?: No [facility] Medical History (Updated 12/21/24 @ 23:[address] Jennifer Otto MD) Frequent UTI Chronic hepatitis GERD (gastroesophageal reflux disease) BMI 60.0-69.9, adult DJD (degenerative joint disea (more content not included)... Normal [facility] No Panel InformationOrdered By: Jennifer Otto on 12-20-2024 Urine Leukocytes Negatve [facility] Urine Non-Hemolyzed Blood Negative [facility] Kidney and Bladderon 025 Kidney and Bladder [facility] Imaging Services [address] [place] [address] [id number] Kidney and Bladder MR#: [id number] Acct: [id number] Name: MEGGAN ARITA Rep #: [id number] : 1960 F 63 From: Scarlett Ventura PCP: Dr. Erica Cannon MD Status: REG CLI Study: Kidney and Bladder Date of Exam: 12/18/24 Exam# [id number] Ordering Dr: Jennifer Otto MD PROCEDURE: KIDNEY AND BLADDER 12/18/2024 REASON FOR EXAM: UTI TECHNIQUE: Procedure Code: USKI Modality: US Procedure: KIDNEY AND BLADDER FINDINGS: Right kidney measures 10.7 cm and left kidney measures 11.6 cm. Normal echotexture of bilateral kidneys. No hydronephrosis. No renal stones. Urinary bladder is not well visualized. US/Kidney and Bladder IMPRESSION: Urinary bladder is not well visualized on this exam. No hydronephrosis. Reading Location: [id number] CC: Dr. Jennifer Otto MD; Dr. 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 Jennifer Justin i, MD Age/Sex: 63/F Location: [facility] Status: Signed Intake Vital Signs 12/26/23 13:25 12/08/24 10:56 Height 5 ft 8 in 5 ft 8 in Weight: 340 lb BMI 51.7 BP 135/75 H Pulse 76 Intake Visit Reasons: Freq. UTI Chief Complaint: new patient- frequent uti Companion Caregiver Required: No Accompanied by: Is patient in [...] 06/30/23 12/08/24 Hist ory subcutaneous pen injector (Mounjaro) venlafaxine 75 mg capsule,extended 75 mg PO [...] urinary tra (more content not included)... Normal [facility] CBC W Auto Differential pane l (Bld)on 12-03-2024 Basophils (Bld) [#/Vol] 0.06 10*3/uL Normal <0.11 [facility] Comment on above: Order Comment: Speci men Type: BLOOD SPECIMENOrdering Facility: [facility] Address: [address] [place] [address] Performed By: #### 5 7021-8 ####[facility] VENICEWNCLIA [id number] [place] [address] [place] Basophils/100 WBC (Bld) 0.8 % Normal [facility] Comment on above: Order Comment: Speci men Type: BLOOD SPECIMENOrdering Facility: [facility] Address: [address] [place] [address] Performed By: #### 5 7021-8 ####[facility] VENICEWNCLIA [id number] [place] [address] [place] Differential cell count method Nom (Bld) Auto Normal [facility] Comment on above: Order Comment: Speci men Type: BLOOD SPECIMENOrdering Facility: [facility] Address: [address] [place] [address] Performed By: #### 5 7021-8 ####[facility] MILLWNCLIA [id number] [place] [address] [place] Eosinophils (Bld) [#/Vol] 0.35 10*3/uL Normal <0.46 [facility] Comment on above: Order Comment: Speci men Type: BLOOD SPECIMENOrdering Facility: [facility] Address: [address] [place] [address] Performed By: #### 5 7021-8 ####[facility] MILLWNCLIA [id number] [place] [address] [place] Eosinophils/100 WBC (Bld) 4.9 % Normal [facility] Comment on above: Order Comment: Speci men Type: BLOOD SPECIMENOrdering Facility: [facility] Address: [address] [place] [address] Performed By: #### 5 7021-8 ####[facility] HOSPITALLIA [id number] [place] [address] [place] Erythrocyte distribution width (RBC) [Ratio] 12.0 % Normal 11.5-15.0 [facility] Comment on above: Order Comment: Speci men Type: BLOOD SPECIMENOrdering Facility: [facility] Address: [address] [place] [address] Performed By: #### 5 7021-8 ####[facility] H[facility]ITALLIA [id number] [place] [address] [place] Hematocrit (Bld) [Volume fraction] 38.8 % Normal 36.0-46.0 [facility] Comment on above: Order Comment: Speci men Type: BLOOD SPECIMENOrdering Facility: [facility] Address: [address] [place] [address] Performed By: #### 5 7021-8 ####[facility] [id number] [place] [address] [place] Hemoglobin (Bld) [Mass/Vol] 11.9 g/dL Normal 11.5-15.5 [facility] Comment on above: Order Comment: Speci men Type: BLOOD SPECIMENOrdering Facility: [facility] Address: [address] [place] [address] Performed By: #### 5 7021-8 ####[facility] [id number] [place] [address] [place] Immature granulocytes (Bld) [#/Vol] 0.03 10*3/uL Normal <0.10 [facility] Comment on above: Order Comment: Speci men Type: BLOOD SPECIMENOrdering Facility: [facility] Address: [address] [place] [address] Performed By: #### 5 7021-8 ####[facility] HOSPITALNCLI [id number] [place] [address] [place] Immature granulocytes/100 WBC (Bld) 0.4 % Normal [facility] Comment on above: Order Comment: Speci men Type: BLOOD SPECIMENOrdering Facility: [facility] Address: [address] [place] [address] Performed By: #### 5 7021-8 ####[facility] HOSPITALNCA [id number] [place] [address] [place] Lymphocytes (Bld) [#/Vol] 0.90 10*3/uL Low 1.00-4.00 [facility] Comment on above: Order Comment: Speci men Type: BLOOD SPECIMENOrdering Facility: [facility] Address: [address] [place] [address] Performed By: #### 5 7021-8 ####[facility] HOSPITALPRETTYMOUNTAIN [facility]ST [facility] [id number] [place] [address] [place] Lymphocytes/100 WBC (Bld) 12.6 % Normal [facility] Comment on above: Order Comment: Speci men Type: BLOOD SPECIMENOrdering Facility: [facility] Address: [address] [place] [address] Performed By: #### 5 7021-8 ####[facility] HOSPITALNCLI [id number] [place] [address] [place] MCH (RBC) [Entitic mass] 29.2 pg Normal 26.0-34.0 [facility] Comment on above: Order Comment: Speci men Type: BLOOD SPECIMENOrdering Facility: [facility] Address: [address] [place] [address] Performed By: #### 5 7021-8 ####[facility] HOSPITALLI [id number] [place] [address] [place] MCHC (RBC) [Mass/Vol] 30.7 g/dL Normal 30.5-36.0 [facility] Comment on above: Order Comment: Speci men Type: BLOOD SPECIMENOrdering Facility: [facility] Address: [address] [place] [address] Performed By: #### 5 7021-8 ####[facility] MAXWELLCAYR [id number] [place] [address] [place] MCV (RBC) [Entitic vol] 95.3 fL Normal 80.0-100.0 [facility] Comment on above: Order Comment: Speci men Type: BLOOD SPECIMENOrdering Facility: [facility] Address: [address] [place] [address] Performed By: #### 5 7021-8 ####[facility] HOSPITALNCLINunu [id number] [place] [address] [place] Monocytes (Bld) [#/Vol] 0.65 10*3/uL Normal <0.87 [facility] Comment on above: Order Comment: Speci men Type: BLOOD SPECIMENOrdering Facility: [facility] Address: [address] [place] [address] Performed By: #### 5 7021-8 ####[facility] HOSPITALNCA [id number] [place] [address] [place] Monocytes/100 WBC (Bld) 9.1 % Normal [facility] Comment on above: Order Comment: Speci men Type: BLOOD SPECIMENOrdering Facility: [facility] Address: [address] [place] [address] Performed By: #### 5 7021-8 ####[facility] HOSPITALNCLI [id number] [place] [address] [place] Neutrophils (Bld) [#/Vol] 5.15 10*3/uL Normal 1.45-7.50 [facility] Comment on above: Order Comment: Speci men Type: BLOOD SPECIMENOrdering Facility: [facility] Address: [address] [place] [address] Performed By: #### 5 7021-8 ####[facility] VENICEWNCLIA [id number] [place] [address] [place] Neutrophils/100 WBC (Bld) 72.2 % Normal [facility] Comment on above: Order Comment: Speci men Type: BLOOD SPECIMENOrdering Facility: [facility] Address: [address] [place] [address] Performed By: #### 5 7021-8 ####[facility]ITALLIA [id number] [place] [address] [place] Nucleated RBC (Bld) [#/Vol] 10*3/uL Normal <0.01 [facility] Comment on above: Order Comment: Speci men Type: BLOOD SPECIMENOrdering Facility: [facility] Address: [address] [place] [address] Performed By: #### 5 7021-8 ####[facility] [id number] [place] [address] [place] Nucleated RBC/100 WBC (Bld) [Ratio] 0.0 /100 WBC Normal [facility] Comment on above: Order Comment: Speci men Type: BLOOD SPECIMENOrdering Facility: [facility] Address: [address] [place] [address] Performed By: #### 5 7021-8 ####[facility] [id number] [place] [address] [place] Platelet mean volume (Bld) [Entitic vol] 10.4 fL Normal 9.0-12.7 [facility] Comment on above: Order Comment: Speci men Type: BLOOD SPECIMENOrdering Facility: [facility] Address: [address] [place] [address] Performed By: #### 5 7021-8 ####[facility] HOSPITALNCLI [id number] [place] [address] [place] Platelets (Bld) [#/Vol] 224 10*3/uL Normal 150-400 [facility] Comment on above: Order Comment: Speci men Type: BLOOD SPECIMENOrdering Facility: [facility] Address: [address] [place] [address] Performed By: #### 5 7021-8 ####[facility]ITALNCLIA [id number] [place] [address] [place] RBC (Bld) [#/Vol] 4.07 10*6/uL Normal 3.90-5.20 [facility] Comment on above: Order Comment: Speci men Type: BLOOD SPECIMENOrdering Facility: [facility] Address: [address] [place] [address] Performed By: #### 5 7021-8 ####[facility]OSPITALNCLIA [id number] [place] [address] [place] WBC (Bld) [#/Vol] 7.14 10*3/uL Normal 3.70-11.00 [facility] Comment on above: Order Comment: Speci men Type: BLOOD SPECIMENOrdering Facility: [facility] Address: [address] [place] [address] Performed By: #### 5 7021-8 ####[facility]ITALNCLIA [id number] [place] [address] [place] CNOVSPon 12-03-2024 CNOVSP Normal [facility] CNPNon 12-02-2024 CNPN Normal [facility] CNPNon 12-01-2024 CNPN Normal [facility] CNNURSEon 11-29-2024 CNNURSE Normal [facility] CNPNon 11-26-2024 CNPN Normal [facility] CNOVon 11-25-2024 CNOV Normal [facility] CNPNon 11-15-2024 CNPN Normal [facility] CNPNon 11-07-2024 CNPN Normal [facility] CNPNon 11-01-2024 CNPN Normal [facility] MONOCLONAL PROT 24 UR W/INTE RPon 11-01-2024 STAFF REVIEW ([facility]) Reviewed by Terri Cobb M.D., Ph.D Normal [facility] Comment on above: Order Comment: Speci men Type: URINE SPECIMENOrdering Facility: [facility] Address: [address] [place] [address] Performed By: #### U 24MPA ####[facility] LABCLIA [id number] [address] UMPA RESULT No M protein is identified. Normal No M protein is identified. [facility] Comment on above: Order Comment: Speci men Type: URINE SPECIMENOrdering Facility: [facility] Address: [address] [place] [address] Performed By: #### U 24MPA ####[facility] LABIA [id number] [address] [place] Orthopedic Visit Reporton Orthopedic Visit Report [facility] [address] [place] [address] OFFICE VISIT Date of Service: 11/01/24 MR#: [id number] Acct: [id number] Name: MEGGAN ARITA Rep #: [id number] : 1960 Provider: Dr. Sam Toussaint so, DO Age/Sex: 63/F Location[place] [facility] Status: Signed Intake Vital Signs 12/26/23 13:25 [...] 06/30/23 11/01/24 Hist ory subcutaneous pen injector (aDnia) venlafaxine 75 mg capsule,extended 75 mg PO [...] knees a (more content not included)... Normal [facility] PROT ELEC UR 24HR W/M SPIKE (P)on 11-01-2024 Albumin/Globulin Elph (24H U) [Mass ratio] 36.99 % Normal [facility] Comment on above: Order Comment: Speci men Type: URINE SPECIMENOrdering Facility: [facility] Address: [address] [place] [address] Performed By: #### L [id number] ####[facility] LABIA [id number] [place] [address] [place] Alpha 1 globulin Elph (24H U) [Mass fraction] 3.86 % Normal [facility] Comment on above: Order Comment: Speci men Type: URINE SPECIMENOrdering Facility: [facility] Address: [address] [place] [address] Performed By: #### L [id number] ####[facility] LABIA [id number] [place] [address] [place] Alpha 2 globulin Elph (24H U) [Mass fraction] 13.40 % Normal [facility] Comment on above: Order Comment: Speci men Type: URINE SPECIMENOrdering Facility: [facility] Address: [address] [place] [address] Performed By: #### L [id number] ####[facility] LABCLIA [id number] [place] [id number] [place] Beta globulin Elph (24H U) [Mass fraction] 22.68 % Normal [facility] Comment on above: Order Comment: Speci men Type: URINE SPECIMENOrdering Facility: [facility] Address: [address] [place] [address] Performed By: #### L [id number] ####[facility] LABIA [id number] [place] [address] [place] Gamma globulin Elph (24H U) [Mass fraction] 23.07 % Normal [facility] Comment on above: Order Comment: Speci men Type: URINE SPECIMENOrdering Facility: [facility] Address: [address] [place] [address] Performed By: #### L [id number] ####[facility] [id number] [address] [place] Protein Fractions Elph Kevin (24H U) [Interp] No definitive M protein is identified on protein electrophoresis. Normal No definitive M protein is identified on protein electrophor esis. [facility] Comment on above: Order Comment: Speci men Type: URINE SPECIMENOrdering Facility: [facility] Address: [address] [place] [address] Performed By: #### L [id number] ####[facility] [id number] [place] [address] [place] Protein.monoclonal Elph (24H U) [Mass/Time] 0.00 g/24hr Normal [facility] Comment on above: Order Comment: Speci men Type: URINE SPECIMENOrdering Facility: [facility] Address: [address] [place] [address] Performed By: #### L [id number] ####[facility]ITALIA [id number] [place] [id number] [facility] [place] STAFF REVIEW ([id number]) Reviewed by Vijay Cobb M.D., Ph.D Normal [facility] Comment on above: Order Comment: Speci men Type: URINE SPECIMENOrdering Facility: [facility] Address: [address] [place], [place] [address] Performed By: #### L [id number] ####[facility] [id number] [place] [id number] [place] Prot 24h Ur-mRateon 11-02-19 25 Protein (24H U) [Mass/Time] 0.03 g/24 Hr Normal <0.15 [facility] Comment on above: Order Comment: Speci men Type: URINE SPECIMENOrdering Facility: [facility] Address: [address] [place] [address] Result Comment: Adul t Proteinuria Categories:<0.15 g/24 hours is considered normal to mildly increased0.15 - 0.50 g/24 hours is considered moderately increased>0.50 g/24 hours is considered severely increasedKDIGO. (2013). KDIGO 2012 Clinical Practice Guideline for the Evaluation and Management of Chronic Kidney Disease. Official Journal of the International Society of Nephrology, 3(1), 1-150. Performed By: #### 2 889-4 ####[facility] LABIA [id number] [place] [id number] [facility] [id number] [place] [place] [address] [place] Protein (24H U) [Mass/Time]o n 11-01-2024 PERIOD (HRS) 24 hr Normal [facility] Comment on above: Order Comment: Speci men Type: URINE SPECIMENOrdering Facility: [facility] Address: [address] [place], [place] [address] Performed By: #### 2 889-4 ####[facility]ITALIA [id number] [address] [address] [facility] [id number] [address] STATES OF [facility] Specimen volume (24H U) 0.4 L Normal [facility] Comment on above: Order Comment: Speci men Type: URINE SPECIMENOrdering Facility: [facility] Address: [address] [place] [address] Performed By: #### 2 889-4 ####[facility] LABCLIA [id number] [place] [id number] [place] AMERICAKETTER[facility] CAMPUSNCLIA [id number] [place] [address] [place] Bacteria Ur Culton Bacteria identified Cx Nom (U) Normal [facility] Comment on above: Performed By: #### 6 30-4 ####[facility] LABCLIA [id number] [place] [address] [place] CNOVon 10-29-2024 CNOV Normal [facility] CNOVSPon 10-29-2024 CNOVSP Normal [facility] COPPER BLOODon 10-29-2024 Copper [Mass/Vol] 138 ug/dL Normal 80-155 [facility] Comment on above: Order Comment: Speci men Type: BLOOD SPECIMENOrdering Facility: [facility] Address: [address] [place] [address] Result Comment: This test was developed, and its performance characteristics determined by the [facility] Department of Pathology and Laboratory Medicine. It has not been cleared or approved by the FDA. The [facility] Department of Pathology and Laboratory Medicine is regulated under CLIA as qualified to perform high-complexity testing. This test is used for clinical purposes. It should not be regarded as investigational or for research. Performed By: #### C OPPER ####[facility] LABCLIA [id number] [place] [id number] [place] ECG COMPLETEon 10-29-2024 Atrial Rate 76 BPM [facility] Calculated P [place] 49 degrees [facility] Calculated R [place] -46 degrees [facility] Calculated T [place] 72 degrees [facility] P-R Interval 192 ms [facility] QRS Duration 142 ms [facility] QT Interval 430 ms [facility] QTC Calculation (Bazett) 483 ms [facility] Ventricular Rate 76 BPM [facility] SINUS RHYTHM WITH OCCASIONAL PREMATURE VENTRICULAR COMPLEXES NONSPECIFIC INTRAVENTRICULAR BLOCK MINIMAL VOLTAGE CRITERIA FOR LVH, MAY BE NORMAL VARIANT ( [place] product ) ABNORMAL ECG Confirmed by MD LONGORIA QARAB ([id number]) on 10/29/2024 4:44:54 [facility] NAME : WILLY ARITA SA PID : [id number] : 1960 Gender : Female Race : ORD : Procedure Date : Oct 29 2024 10:59:55 Edit Date : Oct 29 2024 16:44:58 Diagnosis: SINUS RHYTHM WITH OCCASIONAL PREMATURE VENTRICULAR COMPLEXES NONSPECIFIC INTRAVENTRICULAR BLOCK MINIMAL VOLTAGE CRITERIA FOR LVH, MAY BE NORMAL VARIANT ( Greg product ) ABNORMAL ECG Confirmed by MD LONGORIA QARAB ([id number]) on 10/29/2024 4:44:54 PM Test Reason : Location : 189 : [facility] Overread By : MD LONGORIA QARAB Edited By : MD LONGORIA QARAB Referred By : Rj Dempsey Acquired by : Joseph [facility]ustill[facility] [id number] 10-29-2024 ECG01 Normal [facility] EPO SerPl-aCncon 10-29-2024 Erythropoietin (EPO) Qn 13.9 mIU/mL Normal 2.6-18.5 [facility] Comment on above: Order Comment: Speci men Type: BLOOD SPECIMENOrdering Facility: [facility] Address: [address] [place] [address] Performed By: #### 1 5061-5 ####[facility] LABCLIA [id number] [place] [address] [place] [facility] Ferritin SerPl-mCncon 2024 Ferritin [Mass/Vol] 286.0 ng/mL High 14.7-205.1 [facility] Comment on above: Order Comment: Roeli men Type: BLOOD SPECIMENOrdering Facility: [facility] Address: [address] [place] [address] Performed By: #### 2 276-4, HSTNT, 81439-4, 18463-2 ####[facility] LABCLIA [id number] [place] [address] [place] HIGH SENSITIVITY TROPONIN To n 10-29-2024 Troponin T.cardiac High sensitivity method [Mass/Vol] 25 ng/L High <12 [facility] Comment on above: Order Comment: Speci men Type: BLOOD SPECIMENOrdering Facility: [facility] Address: [address] [place] [address] Performed By: #### 2 276-4, HSTNT, 84408-7, 46291-2 ####[facility] LABCLIA [id number] [place] [address] [place] Iron and Iron binding capaci ty panelon 10-29-2024 Iron [Mass/Vol] 35 ug/dL Low 41-186 [facility] Comment on above: Order Comment: Speci men Type: BLOOD SPECIMENOrdering Facility: [facility] Address: [address] [place] [address] Performed By: #### 2 276-4, HSTNT, 02542-5, 72586-9 ####[facility] LABCLIA [id number] [place] [address] [place] Iron binding capacity [Mass/Vol] 228 ug/dL Low 232-386 [facility] Comment on above: Order Comment: Speci men Type: BLOOD SPECIMENOrdering Facility: [facility] Address: [address] [place] [address] Performed By: #### 2 276-4, HSTNT, 72542-2, 51486-1 ####[facility] LABCLIA [id number] [place] [id number] [place] Iron/TIBC [Molar ratio] 15.4 % Normal 15.0-57.0 [facility] Comment on above: Order Comment: Speci men Type: BLOOD SPECIMENOrdering Facility: [facility] Address: [address] [place] [address] Performed By: #### 2 276-4, HSTNT, 34283-6, 51701-0 ####[facility] LABCLIA [id number] [facility] RAPIDSLorenzo [facility] HOSPITALFracisco [address] [place] MYD88 L265P MUTATION ANALYSI Son 10-29-2024 MYD88 L265P MUTATION RESULT Normal [facility] Comment on above: Order Comment: Speci men Type: BLOOD SPECIMENOrdering Facility: [facility] Address: [address] [place] [address] Result Comment: MYD8 8 L265P MUTATION ANALYSISLaboratory Accession Number: [id number] Type: Peripheral BloodResult:No variant detected.Interpretation:A MYD88 missense variant L265P (c.794T>C, p.Rpu389Gfg) is notdetected. This result does not exclude [...] the presence orabsence of the L265P (c.794T>C, p.Ppj910Zks; g.[id number]; [id number])variant (mutation) in MYD88 gene (NM_002468.4) using droplet digitalpolymerase chain reaction (PCR). Droplet digital PCR includespartitioning of DNA into droplets, droplet independent PCR,interrogation using allele specific hydrolysis probes, and analysis ofdroplets using Poisson distribution to calculate the copy number ofMYD88 L265P and wild-type MYD88. The reference genome used nfBBZq06/hg38.Limitations:This test is designed to detect the L265P variant in the MYD88 gene.Uncommon variants or single nucleotide polymorphisms may affectbinding of probes or primers and may rarely result in false negative,false positive, or indeterminate results. Other variants in MYD88 willnot be identified by this test. The lower limit of detection of thisassay is approximately 0.5% variant allele fraction (vaf) for dzqPEY06 L265P variant. Although vaf is provided for reference, thisvalue should be interpreted with caution as this test is intended forqualitative purposes and is not validated as a quantitative test. FmcZJT11 L265P result cannot be used on a standalone basis for diagnosisof lymphoplasmacytic lymphoma and needs to be considered in thecontext of clinical and morphologic presentation.References:1) Karina VN, Ivan RM, Jerry R, et al. Oncogenically active NBT76diujukvpd in human lymphoma. Nature 2011. 470(1638):115-9.2) Karen SL, Alisia JJ, DW, Lydia L, Curtis JR, Hsi ED: [id number] somatic mutation: its usefulness in the differential diagnosisof bone marrow involvement by B-cell lymphoproliferative disorders. AmJ Clin Pathol. 2013. 140(3):387-94.3) Alexandrea SP, Markus L, Gallegos G, et al. MYD88 L265P somatic mutation inWaldenstrom's macroglobulinemia. N Engl J Med. 2012. 367(8)826-33.4) Dragan RuizQ, Ana YS, Harika LL, Saji K. Toll-like receptorsand cancer: MYD88 mutation and inflammation. Front Immunol. 2014 ;367(5):1-10.5) Becka X, Mina W, Dwayne Q, et al. MYD88 L265P Mutation in LymphoidMalignancies. Cancer Res. 2018. 78(10):5274-18.Disclaimer:This test was developed and its performance characteristics determinedby [facility]'s [facility]ology and Laboratory Medicine Department. Ithas not been cleared or approved by the FDA. [facility]'s[facility] is regulated under CLIAas certified to perform high-complexity testing. This test is used forclinical purposes. It should not be regarded as investigational or forresearch.Interpretation performed by Rosa Phan, PhD, [facility] Performed By: #### M YD88 ####[facility] [id number] [place] [address] [place] NT-proBNP [facility] Healthcareon [facility]-29 Natriuretic peptide.B prohormone N-Terminal [Mass/Vol] 3363 pg/mL High <125 [facility] Comment on above: Order Comment: Speci men Type: BLOOD SPECIMENOrdering Facility: [facility] Address: [address] [place], [place] [address] Performed By: #### 2 276-4, HSTNT, 71692-4, 37968-2 ####[facility] LABCLIA [id number] [place] [address] [place] RETICULOCYTE COUNTon 025 Reticulocytes (Bld) [#/Vol] 0.082 10*3/uL [facility] Retics #on 10-29-2024 Reticulocytes (Bld) [#/Vol] 0.13350 10*3/uL Normal 0.018-0.100 [facility] Comment on above: Order Comment: Speci men Type: BLOOD SPECIMENOrdering Facility: [facility] Address: [address] [place] [address] Performed By: #### 1 4196-0 ####[facility] [id number] [place] [address] [place] Reticulocytes (Bld) [#/Vol]o n 10-29-2024 Interpretation and review of laboratory results Abnormal [facility] Reticulocytes/100 RBC (Bld) 2.2 % High 0.4 - 2.0 % [facility] Reticulocytes/100 RBC (Bld) 2.2 % High 0.4-2.0 [facility] Comment on above: Order Comment: Speci men Type: BLOOD SPECIMENOrdering Facility: [facility] Address: [address] [place] [address] Performed By: #### 1 4196-0 ####[facility] [id number] [place] [address] [place] UA DIP, URINE (POC)on 2024 BILIRUBIN UA (POCT) Negative Negative [facility] CLARITY UA (POCT) Clear [facility] COLOR UA (POCT) Yellow [facility] GLUCOSE UA (POCT) Negative Negative mg/dL [facility] Hemoglobin Ql (U) Trace-intact Abnormal Negative [facility] Interpretation and review of laboratory results Abnormal [facility] KETONE UA (POCT) Negative Negative mg/dL [facility] LEUKOCYTES UA (POCT) Small Abnormal Negative [facility] NITRITE UA (POCT) Negative Negative [facility] PH UA (POCT) 6.0 4.5 - 8.0 [facility] Protein Ql (U) Negative Negative mg/dL [facility] SPECIFIC GRAVITY UA (POCT) 1.025 1.005 - 1.030 [facility] UROBILINOGEN UA (POCT) 1.0 Carmen l E.U./dL [facility] Location:[facility], [address] [place] [address], [place], [place], [id number] [place] [address] POINT OF CARE [facility] CNPNon 10-01-2024 CNPN Normal [facility] CNOVon 09-30-2024 CNOV Normal [facility] CNOVSPon 09-24-2024 CNOVSP Normal [facility] GANGLIOSIDE ANTIBODIESon ASIALO-GM1 ANTIBODIES, IGG/IGM 17 IV Normal 0-50 [facility] Comment on above: Order Comment: Speci men Type: BLOOD SPECIMENOrdering Facility: [facility] Address: [address] [place] [address] Performed By: #### M ASGPG, GANGAB ####[facility] [id number] [place] [address] GD1A ANTIBODIES, IGG/IGM 10 IV Normal 0-50 [facility] Comment on above: Order Comment: Speci men Type: BLOOD SPECIMENOrdering Facility: [facility] Address: [address] [place] [address] Performed By: #### M ASGPG, GANGAB ####[facility]IESCLIA [id number] [place] [address] GD1B ANTIBODIES, IGG/IGM 11 IV Normal 0-50 [facility] Comment on above: Order Comment: Speci men Type: BLOOD SPECIMENOrdering Facility: [facility] Address: [address] [place] [address] Performed By: #### M ASGPG, GANGAB ####[facility]IESCLIA [id number] [place] [address] GM1 ANTIBODIES, IGG/IGM 14 IV Normal 0-50 [facility] Comment on above: Order Comment: Speci men Type: BLOOD SPECIMENOrdering Facility: [facility] Address: [address] [place] [address] Performed By: #### M ASGPG, GANGAB ####[facility]IESCLIA [id number] [place] [address] GM2 ANTIBODIES 7 IV Normal 0-50 [facility] Comment on above: Order Comment: Speci men Type: BLOOD SPECIMENOrdering Facility: [facility] Address: [address] [place] [address] Performed By: #### M ASGPG, MASTERGAB ####[facility] [id number] [place] [address] GQ1B ANTIBODIES, IGG/IGM 9 IV Normal 0-50 [facility] Comment on above: Order Comment: Speci men Type: BLOOD SPECIMENOrdering Facility: [facility] Address: [address] [place] [address] Result Comment: INTE RPRETIVE INFORMATION: Ganglioside (Asialo-GM1, [...] GD1a antibodies are associated with differentvariants of Guillain-Edmonds syndrome (GBS) particularly acute motoraxonal neuropathy while [...] was developed and its performance characteristicsdetermined by [employer]. It has not been cleared orapproved by the [place] Food and Drug Administration. This test wasperformed in a CLIA certified laboratory and is intended forclinical purposes.Performed By: [facility] Dbvkzrrjvkqm110 [place], [place] [address]Pibpsefxkp Director: Zac Ferro MD, PhDCLIA Number: [id number] Performed By: #### M ABBIE LUBIN ####[facility]ITAL[facility] [id number] [place] [address] MAG IGM AND SGPG IGMon 09-24 MAG ANTIBODY, IGM MARYAN <1000 Normal 0-999 [facility] Comment on above: Order Comment: Speci men Type: BLOOD SPECIMENOrdering Facility: [facility] Address: [address] [place] [address] Result Comment: INTE RPRETIVE INFORMATION: MAG Antibody, IgM ELISAAn elevated IgM antibody concentration greater than 999 TU againstmyelin-associated glycoprotein (MAG) suggests active demyelinationin peripheral neuropathy. A normal concentration (less than 999TU) generally rules out an anti-MAG antibody-associated peripheralneuropathy.TU=Titer UnitsThis test was developed and its performance characteristicsdetermined by [employer]. It has not been cleared orapproved by the [place] Food and Drug Administration. This test wasperformed in a CLIA certified laboratory and is intended forclinical purposes. Performed By: #### M ABBIE LUBIN ####[facility]ITAL[facility] [id number] [place] [address] SGPG ANTIBODY, IGM 0.11 IV Normal 0.00-0.99 [facility] Comment on above: Order Comment: Speci men Type: BLOOD SPECIMENOrdering Facility: [facility] Address: [address] [place] [address] Result Comment: INTE RPRETIVE INFORMATION: SGPG Antibody, IgMThe majority of uynuadf-3-ckfuarysea paragloboside (SGPG)IgM-positivesera will show reactivity against MAG. Patients who are SGPG IgMpositive and MAG IgM negative may have multi-focal motor neuropathywith conduction block.This test was developed and its performance characteristicsdetermined by [employer]. It has not been cleared orapproved by the [place] Food and Drug Administration. This test wasperformed in a CLIA certified laboratory and is intended forclinical purposes.Performed By: [facility] [address] [place] [address]Muvtwjitvs Director: Zac Ferro MD, PhDCLIA Number: [id number] Performed By: #### M ABBIE LUBIN ####[facility] [id number] [place] [address] SERUM VISCOSITYon 09-24-2024 VISCOSITY, SERUM 1.22 cP Normal <=1.50 [facility] Comment on above: Order Comment: Speci men Type: BLOOD SPECIMENOrdering Facility: [facility] Address: [address] [place] [address] Result Comment: INTE RPRETIVE INFORMATION: Viscosity, SerumIncreased viscosity is associated with disorders such asmonoclonal gammopathy, macroglobulinemia, and multiple myeloma.Significantly elevated viscosity (>3.0 cP) is associated withclinical symptoms of hyperviscosity syndrome.This test was developed and its performance characteristicsdetermined by [employer]. It has not been cleared orapproved by the [place] Food and Drug Administration. This test wasperformed in a CLIA certified laboratory and is intended forclinical purposes.Performed By: [facility] [address] [place] [address]Pryavqpzho Director: Zac Ferro MD, PhDCLIA Number: [id number] Performed By: #### S JUSTIN ####[facility]ITALCLIA [id number] [place] [address] Transferrin receptor.soluble [Mass/Vol]on 09-24-2024 Transferrin receptor.soluble [Moles/Vol] 3.9 mg/L Normal 1.9-4.4 [facility] Comment on above: Order Comment: Speci men Type: BLOOD SPECIMENOrdering Facility: [facility] Address: [address] [place] [address] Performed By: #### 3 0248-9 ####[facility] LABCLIA [id number] [place] [address] [place] Amylase SerPl-cCncon 025 Amylase [Catalytic activity/Vol] 76 U/L Normal 30-104 [facility] Comment on above: Order Comment: Speci men Type: BLOOD SPECIMENOrdering Facility: [facility] Address: [address] [place] [address] Performed By: #### 1 798-8, 3040-3, 49828-7 ####[facility] LABCLIA [id number] [place] [address] [place] CBC W Auto Differential pane l (Bld)on 09-21-2024 Basophils (Bld) [#/Vol] 0.09 10*3/uL [facility] Basophils/100 WBC (Bld) 1.2 % [facility] Differential cell count method Nom (Bld) Auto [facility] Eosinophils (Bld) [#/Vol] 0.74 10*3/uL High [facility] Eosinophils/100 WBC (Bld) 9.7 % [facility] Erythrocyte distribution width (RBC) [Ratio] 11.9 % 11.5 - 15.0 % [facility] Hematocrit (Bld) [Volume fraction] 38.2 % 36.0 - 46.0 % [facility] Hemoglobin (Bld) [Mass/Vol] 11.3 g/dL Low 11.5 - 15.5 g/dL [facility] Immature granulocytes (Bld) [#/Vol] [facility] Immature granulocytes/100 WBC (Bld) 0.1 % [facility] Interpretation and review of laboratory results Abnormal [facility] Lymphocytes (Bld) [#/Vol] 0.86 10*3/uL Low [facility] Lymphocytes/100 WBC (Bld) 11.3 % [facility] MCH (RBC) [Entitic mass] 28.9 pg 26.0 - 34.0 pg [facility] MCHC (RBC) [Mass/Vol] 29.6 g/dL Low 30.5 - 36.0 g/dL [facility] MCV (RBC) [Entitic vol] 97.7 fL 80.0 - 100.0 fL [facility] Monocytes (Bld) [#/Vol] 0.87 10*3/uL High NINF [facility] Monocytes/100 WBC (Bld) 11.5 % [facility] Neutrophils (Bld) [#/Vol] 5.02 10*3/uL [facility] Neutrophils/100 WBC (Bld) 66.2 % [facility] Nucleated RBC (Bld) [#/Vol] NINF [facility] Nucleated RBC/100 WBC (Bld) [Ratio] 0 % /100 WBC [facility] Platelet mean volume (Bld) [Entitic vol] 11 fL 9.0 - 12.7 fL [facility] Platelets (Bld) [#/Vol] 291 10*3/uL [facility] RBC (Bld) [#/Vol] 3.91 10*6/uL 3.90 - 5.2 0 m/uL [facility] WBC (Bld) [#/Vol] 7.59 10*3/uL [facility] Basophils (Bld) [#/Vol] 0.09 10*3/uL Normal <0.11 [facility] Comment on above: Order Comment: Speci men Type: BLOOD SPECIMENOrdering Facility: [facility] Address: [address] [place] [address] Performed By: #### 5 7021-8 ####[facility] LABIA [id number] [place] [address] [place] Basophils/100 WBC (Bld) 1.2 % Normal [facility] Comment on above: Order Comment: Speci men Type: BLOOD SPECIMENOrdering Facility: [facility] Address: [address] [place] [address] Performed By: #### 5 7021-8 ####[facility] LABCLIA [id number] [place] [address] [place] Differential cell count method Nom (Bld) Auto Normal [facility] Comment on above: Order Comment: Speci men Type: BLOOD SPECIMENOrdering Facility: [facility] Address: [address] [place] [address] Performed By: #### 5 7021-8 ####[facility] LABCLIA [id number] [address], [facility] [place] Eosinophils (Bld) [#/Vol] 0.74 10*3/uL High <0.46 [facility] Comment on above: Order Comment: Speci men Type: BLOOD SPECIMENOrdering Facility: [facility] Address: [address] [place] [address] Performed By: #### 5 7021-8 ####[facility] LABCLIA [id number] [address], [place] [address] [place] Eosinophils/100 WBC (Bld) 9.7 % Normal [facility] Comment on above: Order Comment: Speci men Type: BLOOD SPECIMENOrdering Facility: [facility] Address: [address] [place] [address] Performed By: #### 5 7021-8 ####[facility] LABCLIA [id number] [address], [place] [address] [place] Erythrocyte distribution width (RBC) [Ratio] 11.9 % Normal 11.5-15.0 [facility] Comment on above: Order Comment: Speci men Type: BLOOD SPECIMENOrdering Facility: [facility] Address: [address] [place] [address] Performed By: #### 5 7021-8 ####[facility] LABCLIA [id number] [address], [place] [address] [place] Hematocrit (Bld) [Volume fraction] 38.2 % Normal 36.0-46.0 [facility] Comment on above: Order Comment: Speci men Type: BLOOD SPECIMENOrdering Facility: [facility] Address: [address] [place] [address] Performed By: #### 5 7021-8 ####[facility] LABCLIA [id number] [address], [facility] [place] Hemoglobin (Bld) [Mass/Vol] 11.3 g/dL Low 11.5-15.5 [facility] Comment on above: Order Comment: Speci men Type: BLOOD SPECIMENOrdering Facility: [facility] Address: [address] [place] [address] Performed By: #### 5 7021-8 ####[facility] LABCLIA [id number] [place] [address] [place] Immature granulocytes (Bld) [#/Vol] 10*3/uL Normal <0.10 [facility] Comment on above: Order Comment: Speci men Type: BLOOD SPECIMENOrdering Facility: [facility] Address: [address] [place] [address] Performed By: #### 5 7021-8 ####[facility] LABCLIA [id number] [place] [address] [place] Immature granulocytes/100 WBC (Bld) 0.1 % Normal [facility] Comment on above: Order Comment: Speci men Type: BLOOD SPECIMENOrdering Facility: [facility] Address: [address] [place] [address] Performed By: #### 5 7021-8 ####[facility] LABCLIA [id number] [place] [address] [place] Lymphocytes (Bld) [#/Vol] 0.86 10*3/uL Low 1.00-4.00 [facility] Comment on above: Order Comment: Speci men Type: BLOOD SPECIMENOrdering Facility: [facility] Address: [address] [place] [address] Performed By: #### 5 7021-8 ####[facility] LABCLIA [id number] [place] [address] [place] Lymphocytes/100 WBC (Bld) 11.3 % Normal [facility] Comment on above: Order Comment: Speci men Type: BLOOD SPECIMENOrdering Facility: [facility] Address: [address] [place] [address] Performed By: #### 5 7021-8 ####[facility] LABCLIA [id number] [place] [address] [place] MCH (RBC) [Entitic mass] 28.9 pg Normal 26.0-34.0 [facility] Comment on above: Order Comment: Speci men Type: BLOOD SPECIMENOrdering Facility: [facility] Address: [address] [place] [address] Performed By: #### 5 7021-8 ####[facility] LABIA [id number] [place] [address] [place] MCHC (RBC) [Mass/Vol] 29.6 g/dL Low 30.5-36.0 [facility] Comment on above: Order Comment: Speci men Type: BLOOD SPECIMENOrdering Facility: [facility] Address: [address] [place] [address] Performed By: #### 5 7021-8 ####[facility] [id number] [place] [address] [place] MCV (RBC) [Entitic vol] 97.7 fL Normal 80.0-100.0 [facility] Comment on above: Order Comment: Speci men Type: BLOOD SPECIMENOrdering Facility: [facility] Address: [address] [place] [address] Performed By: #### 5 7021-8 ####[facility] [id number] [place] [address] [place] Monocytes (Bld) [#/Vol] 0.87 10*3/uL High <0.87 [facility] Comment on above: Order Comment: Speci men Type: BLOOD SPECIMENOrdering Facility: [facility] Address: [address] [place] [address] Performed By: #### 5 7021-8 ####[facility] LABIA [id number] [place] [address] [place] Monocytes/100 WBC (Bld) 11.5 % Normal [facility] Comment on above: Order Comment: Speci men Type: BLOOD SPECIMENOrdering Facility: [facility] Address: [address] [place] [address] Performed By: #### 5 7021-8 ####[facility] LABCLIA [id number] [place] [address] [place] Neutrophils (Bld) [#/Vol] 5.02 10*3/uL Normal 1.45-7.50 [facility] Comment on above: Order Comment: Speci men Type: BLOOD SPECIMENOrdering Facility: [facility] Address: [address] [place] [address] Performed By: #### 5 7021-8 ####[facility] LABCLIA [id number] [place] [address] [place] Neutrophils/100 WBC (Bld) 66.2 % Normal [facility] Comment on above: Order Comment: Speci men Type: BLOOD SPECIMENOrdering Facility: [facility] Address: [address] [place] [address] Performed By: #### 5 7021-8 ####[facility] LABCLIA [id number] [place] [address] [place] Nucleated RBC (Bld) [#/Vol] 10*3/uL Normal <0.01 [facility] Comment on above: Order Comment: Speci men Type: BLOOD SPECIMENOrdering Facility: [facility] Address: [address] [place] [address] Performed By: #### 5 7021-8 ####[facility] LABCLIA [id number] [place] [address] [place] Nucleated RBC/100 WBC (Bld) [Ratio] 0.0 /100 WBC Normal [facility] Comment on above: Order Comment: Speci men Type: BLOOD SPECIMENOrdering Facility: [facility] Address: [address] [place] [address] Performed By: #### 5 7021-8 ####[facility] LABCLIA [id number] [address] [place] [address] [place] Platelet mean volume (Bld) [Entitic vol] 11.0 fL Normal 9.0-12.7 [facility] Comment on above: Order Comment: Speci men Type: BLOOD SPECIMENOrdering Facility: [facility] Address: [address] [place] [address] Performed By: #### 5 7021-8 ####[facility] LABCLIA [id number] [address] [place] [address] [place] Platelets (Bld) [#/Vol] 291 10*3/uL Normal 150-400 [facility] Comment on above: Order Comment: Speci men Type: BLOOD SPECIMENOrdering Facility: [facility] Address: [address] [place] [address] Performed By: #### 5 7021-8 ####[facility] LABIA [id number] [place] [id number] [place] RBC (Bld) [#/Vol] 3.91 10*6/uL Normal 3.90-5.20 [facility] Comment on above: Order Comment: Speci men Type: BLOOD SPECIMENOrdering Facility: [facility] Address: [address] [place] [address] Performed By: #### 5 7021-8 ####[facility] LABCLIA [id number] [address] [place] [address] [place] WBC (Bld) [#/Vol] 7.59 10*3/uL Normal 3.70-11.00 [facility] Comment on above: Order Comment: Speci men Type: BLOOD SPECIMENOrdering Facility: [facility] Address: [address] [place] [address] Performed By: #### 5 7021-8 ####[facility] LABCLIA [id number] [address] [place] [address] [place] CNOVon 07-29-2025 CNOV Normal [facility] CNPNon 09-21-2024 CNPN Normal [facility] Comprehensive metabolic 2000 panelon 09-21-2024 Albumin [Mass/Vol] 3.9 g/dL Normal 3.9-4.9 [facility] Comment on above: Order Comment: Speci men Type: BLOOD SPECIMENOrdering Facility: [facility] Address: [address] [place] [address] Performed By: #### 1 798-8, 3040-3, 13986-8 ####[facility] LABCLIA [id number] [place] [address] [place] ALP [Catalytic activity/Vol] 104 U/L Normal 34-123 [facility] Comment on above: Order Comment: Speci men Type: BLOOD SPECIMENOrdering Facility: [facility] Address: [address] [place] [address] Performed By: #### 1 798-8, 304-3, 00185-6 ####[facility] LABCLIA [id number] [place] [address] [place] ALT [Catalytic activity/Vol] 9 U/L Normal 7-38 [facility] Comment on above: Order Comment: Speci men Type: BLOOD SPECIMENOrdering Facility: [facility] Address: [address] [place] [address] Performed By: #### 1 798-8, 304-3, 29902-6 ####[facility] LABCLIA [id number] [address] [address] [place] Anion gap [Moles/Vol] 11 mmol/L Normal 8-15 [facility] Comment on above: Order Comment: Speci men Type: BLOOD SPECIMENOrdering Facility: [facility] Address: [address] [place], [place] [address] Performed By: #### 1 798-8, 3040-3, 86734-7 ####[facility] LABCLIA [id number] [address] [address] [place] AST [Catalytic activity/Vol] 18 U/L Normal 13-35 [facility] Comment on above: Order Comment: Speci men Type: BLOOD SPECIMENOrdering Facility: [facility] Address: [address] [place], [place] [address] Performed By: #### 1 798-8, 3040-3, 85936-9 ####[facility] LABCLIA [id number] [address] [address] [place] Bilirubin [Mass/Vol] 0.4 mg/dL Normal 0.2-1.3 [facility] Comment on above: Order Comment: Speci men Type: BLOOD SPECIMENOrdering Facility: [facility] Address: [address] [place] [address] Performed By: #### 1 798-8, 3039-3, ####[facility] LABCLIA [id number] [place] [id number] [place] Calcium [Mass/Vol] 9.7 mg/dL Normal 8.5-10.2 [facility] Comment on above: Order Comment: Speci men Type: BLOOD SPECIMENOrdering Facility: [facility] Address: [address] [place] [address] Performed By: #### 1 798-8, 304-3, ####[facility] LABCLIA [id number] [address] [address] [place] Chloride [Moles/Vol] 103 mmol/L Normal 98-107 [facility] Comment on above: Order Comment: Speci men Type: BLOOD SPECIMENOrdering Facility: [facility] Address: [address] [place], [place] [address] Performed By: #### 1 798-8, 3040-3, 57967-4 ####[facility] LABCLIA [id number] [address] [address] [place] CO2 [Moles/Vol] 27 mmol/L Normal 22-30 [facility] Comment on above: Order Comment: aRad talley Type: BLOOD SPECIMENOrdering Facility: [facility] Address: [address] [place] [address] Performed By: #### 1 798-8, 3040-3, ####[facility] LABCLIA [id number] [place] [id number] [place] Creatinine [Mass/Vol] 1.10 mg/dL High 0.58-0.96 [facility] Comment on above: Order Comment: Raad talley Type: BLOOD SPECIMENOrdering Facility: [facility] Address: [address] [place] [address] Performed By: #### 1 798-8, 0-3, ####[facility] LABIA [id number] [place] [address] [place] eGFRcr SerPlBld CKD-EPI 2020 56 mL/min/1.73m??? Low >=60 [facility] Comment on above: Order Comment: Raad talley Type: BLOOD SPECIMENOrdering Facility: [facility] Address: [address] [place] [address] Result Comment: Tamiko mated Glomerular Filtration Rate [...] actual GFR. Performed By: #### 1 798-8, 3040-3, ####[facility] LABCLIA [id number] [place] [id number] [place] Glucose [Mass/Vol] 63 mg/dL Low 74-99 [facility] Comment on above: Order Comment: Raad talley Type: BLOOD SPECIMENOrdering Facility: [facility] Address: [facility] [place] [address] Result Comment: The [place] [employer] (ADA) provides guidance for cutoff [...] Standards of Medical Care in Diabetes 2016, [place] [employer]. Diabetes Care. 2016.39(Suppl 1). Performed By: #### 1 798-8, 3039-3, ####[facility] LABCLIA [id number] [place] [address] [place] Potassium [Moles/Vol] 4.3 mmol/L Normal 3.7-5.1 [facility] Comment on above: Order Comment: Speci men Type: BLOOD SPECIMENOrdering Facility: [facility] Address: [address] [place] [address] Performed By: #### 1 798-8, 3, ####[facility] LABIA [id number] [place] [address] [place] Protein [Mass/Vol] 8.2 g/dL High 6.3-8.0 [facility] Comment on above: Order Comment: Speci men Type: BLOOD SPECIMENOrdering Facility: [facility] Address: [address] [place] [address] Performed By: #### 1 798-8, 3, ####[facility] LABCLIA [id number] [place] [id number] [place] Sodium [Moles/Vol] 141 mmol/L Normal 136-144 [facility] Comment on above: Order Comment: Speci men Type: BLOOD SPECIMENOrdering Facility: [facility] Address: [address] [place] [address] Performed By: #### 1 798-8, 3040-3, 34637-7 ####[facility] LABCLIA [id number] [address] [address] [place] Urea nitrogen [Mass/Vol] 16 mg/dL Normal 7-21 [facility] Comment on above: Order Comment: Speci men Type: BLOOD SPECIMENOrdering Facility: [facility] Address: [address] [place] [address] Performed By: #### 1 798-8, 3040-3, 66533-6 ####[facility] LABCLIA [id number] [place] [address] [place] Lipase SerPl-cCncon 09-22-19 25 Lipase [Catalytic activity/Vol] 37 U/L Normal 16-61 [facility] Comment on above: Order Comment: Speci men Type: BLOOD SPECIMENOrdering Facility: [facility] Address: [address] [place] [address] Performed By: #### 1 798-8, 3040-3, 04677-2 ####[facility] LABCLIA [id number] [address] [address] [place] Hemoccult Stl Ql IAon 2024 Lower GI hemoglobin IA Ql (Stl) Negative Normal Negative [facility] Comment on above: Order Comment: Speci men Type: STOOL SPECIMENOrdering Facility: [facility] Address: [address] [place], [place] [address] Performed By: #### 2 9771-3 ####[facility] LABCLIA [id number] [address] [address] [place] CNPTOUTREACHon 09-14-2024 CNPTOUTREACH Normal [facility] CNPNon 09-08-2024 CNPN Normal [facility] CNOVon 09-07-2024 CNOV Normal [facility] CNPNon 09-07-2024 CNPN Normal [facility] CNPNon 08-30-2024 CNPN Normal [facility] CBC W Auto Differential pane l (Bld)on 08-24-2024 Basophils (Bld) [#/Vol] 0.06 10*3/uL [facility] Basophils/100 WBC (Bld) 0.8 % [facility] Differential cell count method Nom (Bld) Auto [facility] Eosinophils (Bld) [#/Vol] 0.74 10*3/uL High [facility] Eosinophils/100 WBC (Bld) 9.9 % [facility] Erythrocyte distribution width (RBC) [Ratio] 12.1 % 11.5 - 15.0 % [facility] Hematocrit (Bld) [Volume fraction] 36.7 % 36.0 - 46.0 % [facility] Hemoglobin (Bld) [Mass/Vol] 11.3 g/dL Low 11.5 - 15.5 g/dL [facility] Immature granulocytes (Bld) [#/Vol] [facility] Immature granulocytes/100 WBC (Bld) 0.3 % [facility] Interpretation and review of laboratory results Abnormal [facility] Lymphocytes (Bld) [#/Vol] 0.95 10*3/uL Low [facility] Lymphocytes/100 WBC (Bld) 12.6 % [facility] MCH (RBC) [Entitic mass] 29.7 pg 26.0 - 34.0 pg [facility] MCHC (RBC) [Mass/Vol] 30.8 g/dL 30.5 - 36.0 g/dL [facility] MCV (RBC) [Entitic vol] 96.3 fL 80.0 - 100.0 fL [facility] Monocytes (Bld) [#/Vol] 0.82 10*3/uL [facility] Monocytes/100 WBC (Bld) 10.9 % [facility] Neutrophils (Bld) [#/Vol] 4.92 10*3/uL [facility] Neutrophils/100 WBC (Bld) 65.5 % [facility] Nucleated RBC (Bld) [#/Vol] NINF [facility] Nucleated RBC/100 WBC (Bld) [Ratio] 0 % /100 WBC [facility] Platelet mean volume (Bld) [Entitic vol] 10.1 fL 9.0 - 12.7 fL [facility] Platelets (Bld) [#/Vol] 268 10*3/uL [facility] RBC (Bld) [#/Vol] 3.81 10*6/uL Low 3.90 - 5.2 0 m/uL [facility] WBC (Bld) [#/Vol] 7.51 10*3/uL [facility] Basophils (Bld) [#/Vol] 0.06 10*3/uL Normal <0.11 [facility] Comment on above: Order Comment: Speci men Type: BLOOD SPECIMENOrdering Facility: [facility] Address: [address] [place] [address] Performed By: #### 1 4196-0, 12683-1 ####[facility] [id number] [place] [address] [place] Basophils/100 WBC (Bld) 0.8 % Normal [facility] Comment on above: Order Comment: Speci men Type: BLOOD SPECIMENOrdering Facility: [facility] Address: [address] [place] [address] Performed By: #### 1 4196-0, 75127-3 ####[facility] [id number] [place] [address] [place] Differential cell count method Nom (Bld) Auto Normal [facility] Comment on above: Order Comment: Speci men Type: BLOOD SPECIMENOrdering Facility: [facility] Address: [address] [place] [address] Performed By: #### 1 4196-0, 48902-1 ####[facility] [id number] [place] [address] [place] Eosinophils (Bld) [#/Vol] 0.74 10*3/uL High <0.46 [facility] Comment on above: Order Comment: Speci men Type: BLOOD SPECIMENOrdering Facility: [facility] Address: [address] [place] [address] Performed By: #### 1 4196-0, 62560-2 ####[facility] MAXWELLRUFFS DALEREJI [id number] [place] [address] [place] Eosinophils/100 WBC (Bld) 9.9 % Normal [facility] Comment on above: Order Comment: Speci men Type: BLOOD SPECIMENOrdering Facility: [facility] Address: [address] [place] [address] Performed By: #### 1 4196-0, 34011-0 ####[facility] HOSPITALPRETTYMINAA [id number] [place] [address] [place] Erythrocyte distribution width (RBC) [Ratio] 12.1 % Normal 11.5-15.0 [facility] Comment on above: Order Comment: Speci men Type: BLOOD SPECIMENOrdering Facility: [facility] Address: [address] [place] [address] Performed By: #### 1 4196-0, 12886-8 ####[facility] [id number] [place] [address] [place] Hematocrit (Bld) [Volume fraction] 36.7 % Normal 36.0-46.0 [facility] Comment on above: Order Comment: Speci men Type: BLOOD SPECIMENOrdering Facility: [facility] Address: [address] [place] [address] Performed By: #### 1 4196-0, 02269-4 ####[facility] HOSPITALLIA [id number] [place] [address] [place] Hemoglobin (Bld) [Mass/Vol] 11.3 g/dL Low 11.5-15.5 [facility] Comment on above: Order Comment: Speci men Type: BLOOD SPECIMENOrdering Facility: [facility] Address: [address] [place] [address] Performed By: #### 1 4196-0, 30119-3 ####[facility] MILLTOWNCLIA [id number] [place] [address] [place] Immature granulocytes (Bld) [#/Vol] 10*3/uL Normal <0.10 [facility] Comment on above: Order Comment: Speci men Type: BLOOD SPECIMENOrdering Facility: [facility] Address: [address] [place] [address] Performed By: #### 1 4196-0, 42732-3 ####[facility] HOSPITALLIA [id number] [place] [address] [place] Immature granulocytes/100 WBC (Bld) 0.3 % Normal [facility] Comment on above: Order Comment: Speci men Type: BLOOD SPECIMENOrdering Facility: [facility] Address: [address] [place] [address] Performed By: #### 1 4196-0, 03257-7 ####[facility] HOS[facility]ITALLIA [id number] [place] [address] [place] Lymphocytes (Bld) [#/Vol] 0.95 10*3/uL Low 1.00-4.00 [facility] Comment on above: Order Comment: Speci men Type: BLOOD SPECIMENOrdering Facility: [facility] Address: [address] [place] [address] Performed By: #### 1 4196-0, 98785-5 ####[facility] VENICEWNCLIA [id number] [place] [address] [place] Lymphocytes/100 WBC (Bld) 12.6 % Normal [facility] Comment on above: Order Comment: Speci men Type: BLOOD SPECIMENOrdering Facility: [facility] Address: [address] [place] [address] Performed By: #### 1 4196-0, 75265-3 ####[facility]ITALLIA [id number] [place] [address] [place] MCH (RBC) [Entitic mass] 29.7 pg Normal 26.0-34.0 [facility] Comment on above: Order Comment: Speci men Type: BLOOD SPECIMENOrdering Facility: [facility] Address: [address] [place] [address] Performed By: #### 1 4196-0, 08206-6 ####[facility] HOSPITALREJI [id number] [place] [address] [place] MCHC (RBC) [Mass/Vol] 30.8 g/dL Normal 30.5-36.0 [facility] Comment on above: Order Comment: Speci men Type: BLOOD SPECIMENOrdering Facility: [facility] Address: [address] [place] [address] Performed By: #### 1 4196-0, 91451-2 ####[facility] HOSPITALREJI [id number] [address] [place] MCV (RBC) [Entitic vol] 96.3 fL Normal 80.0-100.0 [facility] Comment on above: Order Comment: Speci men Type: BLOOD SPECIMENOrdering Facility: [facility] Address: [address] [place] [address] Performed By: #### 1 4196-0, 16293-8 ####[facility] HOSPITALPRETTYNunu [id number] [place] [address] [place] Monocytes (Bld) [#/Vol] 0.82 10*3/uL Normal <0.87 [facility] Comment on above: Order Comment: Speci men Type: BLOOD SPECIMENOrdering Facility: [facility] Address: [address] [place] [address] Performed By: #### 1 4196-0, 32578-2 ####[facility] HOSPITALREJI [id number] [place] [address] [place] Monocytes/100 WBC (Bld) 10.9 % Normal [facility] Comment on above: Order Comment: Speci men Type: BLOOD SPECIMENOrdering Facility: [facility] Address: [address] [place] [address] Performed By: #### 1 4196-0, 42218-6 ####[facility] HOSPITALEDWINAA [id number] [place] [address] [place] Neutrophils (Bld) [#/Vol] 4.92 10*3/uL Normal 1.45-7.50 [facility] Comment on above: Order Comment: Speci men Type: BLOOD SPECIMENOrdering Facility: [facility] Address: [address] [place] [address] Performed By: #### 1 4196-0, 35614-1 ####[facility] HOSPITALPRETTYMOUNTAIN WEST [facility] [id number] [place] [address] [place] Neutrophils/100 WBC (Bld) 65.5 % Normal [facility] Comment on above: Order Comment: Speci men Type: BLOOD SPECIMENOrdering Facility: [facility] Address: [address] [place] [address] Performed By: #### 1 4196-0, 95254-2 ####[facility] HOSPITALNunu [id number] [place] [address] [place] Nucleated RBC (Bld) [#/Vol] 10*3/uL Normal <0.01 [facility] Comment on above: Order Comment: Speci men Type: BLOOD SPECIMENOrdering Facility: [facility] Address: [address] [place] [address] Performed By: #### 1 4196-0, 78702-7 ####[facility] HOSPITALNCLIA [id number] [place] [address] [place] Nucleated RBC/100 WBC (Bld) [Ratio] 0.0 /100 WBC Normal [facility] Comment on above: Order Comment: Speci men Type: BLOOD SPECIMENOrdering Facility: [facility] Address: [address] [place] [address] Performed By: #### 1 4196-0, 36251-3 ####[facility] HOSPITALNCMOUNTAIN [facility] [id number] [place] [address] [place] Platelet mean volume (Bld) [Entitic vol] 10.1 fL Normal 9.0-12.7 [facility] Comment on above: Order Comment: Speci men Type: BLOOD SPECIMENOrdering Facility: [facility] Address: [address] [place] [address] Performed By: #### 1 4196-0, 75206-0 ####[facility] HOSPITALNCMOUNTAIN [facility]ST [facility] [id number] [place] [address] [place] Platelets (Bld) [#/Vol] 268 10*3/uL Normal 150-400 [facility] Comment on above: Order Comment: Speci men Type: BLOOD SPECIMENOrdering Facility: [facility] Address: [address] [place] [address] Performed By: #### 1 4196-0, 22254-4 ####[facility] HOSPITALA [id number] [place] [address] [place] RBC (Bld) [#/Vol] 3.81 10*6/uL Low 3.90-5.20 [facility] Comment on above: Order Comment: Speci men Type: BLOOD SPECIMENOrdering Facility: [facility] Address: [address] [place] [address] Performed By: #### 1 4196-0, 21522-5 ####[facility] HOSPITALNCA [id number] [place] [address] [place] WBC (Bld) [#/Vol] 7.51 10*3/uL Normal 3.70-11.00 [facility] Comment on above: Order Comment: Speci men Type: BLOOD SPECIMENOrdering Facility: [facility] Address: [address] [place] [address] Performed By: #### 1 4196-0, 18737-4 ####[facility] ANDREW ARREOLARUFFS DALENCLIA [id number] [place] [address] [place] CNOVSPon 08-24-2024 CNOVSP Normal [facility] TONIE DIRECTon 08-24-2024 DAGT, POLYSPECIFIC AHG Negative Normal [facility] Comment on above: Order Comment: Speci men Type: BLOOD SPECIMENOrdering Facility: [facility] Address: [address] [place] [address] Performed By: #### D AGT ####[facility] BLOOD BANKCLIA [id number] [place] [address] [place] COPPER BLOODon 08-24-2024 Copper [Mass/Vol] 134 ug/dL Normal 80-155 [facility] Comment on above: Order Comment: Speci men Type: BLOOD SPECIMENOrdering Facility: [facility] Address: [address] [place] [address] Result Comment: This test was developed, and its performance characteristics determined by the [facility] Department of Pathology and Laboratory Medicine. It has not been cleared or approved by the FDA. The [facility] Department of Pathology and Laboratory Medicine is regulated under CLIA as qualified to perform high-complexity testing. This test is used for clinical purposes. It should not be regarded as investigational or for research. Performed By: #### C OPPER, 5763-8 ####[facility] LABCLIA [id number] [place] [address] [place] Direct antiglobulin test.janis y specific reagent Ql (RBC)Ordered By: Kolby Nam on 08-24-2024 DAGT, Polyspecific AHG Negative Cl [facility] FOLATE, SERUMon 08-24-2024 Folate [Mass/Vol] 4.9 ng/mL 4.7 - PINF ng/mL [facility] Folate [facility] 08-25-19 25 Folate [Mass/Vol] 4.9 ng/mL Normal >4.7 [facility] Comment on above: Order Comment: Speci men Type: BLOOD SPECIMENOrdering Facility: [facility] Address: [address] [place] [address] Performed By: #### 2 132-9, 2885-2, 2284-8, 4542-7 ####[facility] LABCLIA [id number] [address] [address] [place] HAPTOGLOBINon 08-24-2024 Haptoglobin [Mass/Vol] 252 mg/dL High 31 - 238 mg/dL [facility] Haptoglob [facility]-ncon 08-24 Haptoglobin [Mass/Vol] 252 mg/dL High 31-238 [facility] Comment on above: Order Comment: Speci men Type: BLOOD SPECIMENOrdering Facility: [facility] Address: [address] [place] [address] Performed By: #### 2 132-9, 2885-2, 2284-8, 4542-7 ####[facility] LABCLIA [id number] [address] [place] [address] [place] Haptoglobin [Mass/Vol]on Interpretation and review of laboratory results Abnormal [facility] IMMUNOFIXATION SCREEN, SERUM on 08-24-2024 INTERPRETATION (MPA) Atypical restricted bands are present in the IgM and lambda regions. Consistent with IgM lambda monoclonal gammopathy. Normal [facility] Comment on above: Order Comment: Speci men Type: BLOOD SPECIMENOrdering Facility: [facility] Address: [address] [place] [address] Performed By: #### I [facility] ####[facility] LABCLIA [id number] [address] [place] [address] [place] MPA RESULT M protein is present. Abnormal No M protein is identified. [facility] Comment on above: Order Comment: Speci men Type: BLOOD SPECIMENOrdering Facility: [facility] Address: [address] [place] [address] Performed By: #### I FESC ####[facility] LABCLIA [id number] [place] [id number] [facility] STAFF REVIEW (MPA) Reviewed by Terri Cobb M.D., Ph.D Normal [facility] Comment on above: Order Comment: Speci men Type: BLOOD SPECIMENOrdering Facility: [facility] Address: [address] [place] [address] Performed By: #### I FES ####[facility] LABCLIA [id number] [place] [address] [place] IMMUNOGLOBULINS,IGG,IGA,IGMo n 08-24-2024 IgA [Mass/Vol] 399 mg/dL Normal 70-400 [facility] Comment on above: Order Comment: Speci men Type: BLOOD SPECIMENOrdering Facility: [facility] Address: [address] [place] [address] Performed By: #### S ERIMM ####[facility] LABCLIA [id number] [place] [id number] [place] IgG [Mass/Vol] 2074 mg/dL High 700-1600 [facility] Comment on above: Order Comment: Speci men Type: BLOOD SPECIMENOrdering Facility: [facility] Address: [address] [place] [address] Performed By: #### S ERIMM ####[facility] LABCLIA [id number] [address] [address] [place] IgM [Mass/Vol] 145 mg/dL Normal 40-230 [facility] Comment on above: Order Comment: Speci men Type: BLOOD SPECIMENOrdering Facility: [facility] Address: [address] [place] [address] Performed By: #### S ERIMM ####[facility] LABCLIA [id number] [place] [address] [place] KAPPA/SANDRA,FREE,SERon 2024 Immunoglobulin light chains.kappa.free (S) [Mass/Vol] 59.8 mg/L High 3.3-19.4 [facility] Comment on above: Order Comment: Speci men Type: BLOOD SPECIMENOrdering Facility: [facility] Address: [address] [place] [address] Result Comment: Rare ly, increased serum free light chains levels may not be detected or accurately quantified due to prozone phenomenon or in high viscosity samples using this immunoturbidimetric assay. Correlation with other laboratory results and clinical findings is recommended.The [place] Free Light Chain was performed using the Binding Site Optilite immunoturbidimetric method. Result obtained with different assay methods or kits cannot be used interchangeably. Performed By: #### K LFRS ####[facility] LABCLIA [id number] [place] [address] [place] Immunoglobulin light chains.kappa/Immunoglo bulin light chains.lambda (S) [Mass ratio] 1.28 Normal 0.26-1.65 [facility] Comment on above: Order Comment: Speci men Type: BLOOD SPECIMENOrdering Facility: [facility] Address: [address] [place] [address] Performed By: #### K LFRS ####[facility] LABCLIA [id number] [place] [address] [place] Immunoglobulin light chains.lambda.free [Mass/Vol] 46.8 mg/L High 5.7-26.3 [facility] Comment on above: Order Comment: Speci men Type: BLOOD SPECIMENOrdering Facility: [facility] Address: [address] [place] [address] Result Comment: Rare ly, increased serum free [...] used interchangeably. Performed By: #### K LFRS ####[facility] LABCLIA [id number] [place] [address] [place] LACTATE DEHYDROGENASEOrdered By: Alona Agarwal on 08-24-2024 LDH [Catalytic activity/Vol] 167 U/L 135 - 214 U/L [facility] LDH SerPl-cCncon 08-24-2024 LDH [Catalytic activity/Vol] 167 U/L Normal 135-214 [facility] Comment on above: Order Comment: Speci men Type: BLOOD SPECIMENOrdering Facility: [facility] Address: [address] [place] [address] Performed By: #### 2 532-0 ####[facility] [id number] [address] [place] LDH [Catalytic activity/Vol] Ordered By: Alona Agarwal on 08-24-2024 Interpretation and review of laboratory results Normal [facility] Methylmalonate SerPl-sCncon 08-24-2024 Methylmalonate [Moles/Vol] 0.29 umol/L Normal <=0.40 [facility] Comment on above: Order Comment: Speci men Type: BLOOD SPECIMENOrdering Facility: [facility] Address: [address] [place] [address] Result Comment: This test was developed, and its performance characteristics determined by the [facility] Department of Pathology and Laboratory Medicine. It has not been cleared or approved by the FDA. The [facility] Department of Pathology and Laboratory Medicine is regulated under CLIA as qualified to perform high-complexity testing. This test is used for clinical purposes. It should not be regarded as investigational or for research. Performed By: #### 1 3964-2 ####[facility] LABCLIA [id number] [address] [place] No Panel Informationon 08-24 Interpretation and review of laboratory results Normal [facility] PROTEIN ELECTROPHORESIS SERU M (P)on 08-24-2024 Albumin [Mass/Vol] 3.51 g/dL Normal 3.43-5.41 [facility] Comment on above: Order Comment: Speci men Type: BLOOD SPECIMENOrdering Facility: [facility] Address: [address] [place] [address] Performed By: #### L [id number] ####[facility] LABIA [id number] [place] [address] [place] Alpha 1 globulin Elph [Mass/Vol] 0.34 g/dL Normal 0.18-0.43 [facility] Comment on above: Order Comment: Speci men Type: BLOOD SPECIMENOrdering Facility: [facility] Address: [address] [place] [address] Performed By: #### L [id number] ####[facility] LABIA [id number] [place] [address] [place] Alpha 2 globulin Elph [Mass/Vol] 0.89 g/dL Normal 0.42-0.98 [facility] Comment on above: Order Comment: Speci men Type: BLOOD SPECIMENOrdering Facility: [facility] Address: [address] [place] [address] Performed By: #### L [id number] ####[facility] LABIA [id number] [place] [address] [place] Beta globulin Elph [Mass/Vol] 1.06 g/dL Normal 0.61-1.17 [facility] Comment on above: Order Comment: Speci men Type: BLOOD SPECIMENOrdering Facility: [facility] Address: [address] [place] [address] Performed By: #### L [id number] ####[facility] LABIA [id number] [place] [address] [place] Gamma globulin Elph [Mass/Vol] 1.81 g/dL High 0.53-1.51 [facility] Comment on above: Order Comment: Speci men Type: BLOOD SPECIMENOrdering Facility: [facility] Address: [address] [place], [place] [address] Performed By: #### L [id number] ####[facility] LABCLIA [id number] [address] [place] [address] [place] [facility] INTERPRETATION COMMENT FOR PROTEIN ELECTROPHORESIS Normal [facility] Comment on above: Order Comment: Speci men Type: BLOOD SPECIMENOrdering Facility: [facility] Address: [address] [place] [address] Performed By: #### L [id number] ####[facility] LABCLIA [id number] [address] [address] [place] M-PROTEIN LOCATION Normal [facility] Comment on above: Order Comment: Speci men Type: BLOOD SPECIMENOrdering Facility: [facility] Address: [address] [place] [address] Result Comment: Not Applicable. Performed By: #### L [id number] ####[facility] LABCLIA [id number] [address] [place] [address] [place] Protein Fractions [Interp] An atypical region of restricted mobility is identified on protein electrophoresis. Abnormal No definitive M protein is identified on protein electrophor esis. [facility] Comment on above: Order Comment: Speci men Type: BLOOD SPECIMENOrdering Facility: [facility] Address: [address] [place], [place] [address] Performed By: #### L [id number] ####[facility] LABCLIA [id number] [address] [place] [address] [place] Protein.monoclonal Elph [Mass/Vol] 0.00 g/dL Normal <=0.00 [facility] Comment on above: Order Comment: Speci men Type: BLOOD SPECIMENOrdering Facility: [facility] Address: [address] [place], [place] [address] Performed By: #### L [id number] ####[facility] LABCLIA [id number] [address] [address] [place] SPE STAFF REVIEW Reviewed by Terri Cobb M.D., Ph.D Normal [facility] Comment on above: Order Comment: Raad talley Type: BLOOD SPECIMENOrdering Facility: [facility] Address: [address] [place] [address] Performed By: #### L [id number] ####[facility] LABCLIA [id number] [place] [address] [place] Prot SerPl-mCncon 08-24-2024 Protein [Mass/Vol] 7.6 g/dL Normal 6.3-8.0 [facility] Comment on above: Order Comment: Raad talley Type: BLOOD SPECIMENOrdering Facility: [facility] Address: [address] [place] [address] Performed By: #### 2 132-9, 2885-2, 2284-8, 4542-7 ####[facility] LABCLIA [id number] [place] [address] [place] RETICULOCYTE COUNTon 025 Reticulocytes (Bld) [#/Vol] 0.06 10*3/uL [facility] Retics #on 08-24-2024 Reticulocytes (Bld) [#/Vol] 0.29685 10*3/uL Normal 0.018-0.100 [facility] Comment on above: Order Comment: Raad talley Type: BLOOD SPECIMENOrdering Facility: [facility] Address: [address] [place] [address] Performed By: #### 1 4196-0, 48548-4 ####[facility] [id number] [place] [id number] [place] Reticulocytes (Bld) [#/Vol]o n 08-24-2024 Interpretation and review of laboratory results Normal [facility] Reticulocytes/100 RBC (Bld) 1.6 % 0.4 - 2.0 % [facility] Reticulocytes/100 RBC (Bld) 1.6 % Normal 0.4-2.0 [facility] Comment on above: Order Comment: Speci men Type: BLOOD SPECIMENOrdering Facility: [facility] Address: [address] [place] [address] Performed By: #### 1 4196-0, 71927-4 ####[facility] ANDREW TERESAWNCLIA [id number] [place] [address] [place] VITAMIN B12on 08-24-2024 Cobalamin (Vitamin B12) [Mass/Vol] 605 pg/mL 232 - 1245 pg/mL [facility] Vit B12 SerPl-mCncon 025 Cobalamin (Vitamin B12) [Mass/Vol] 605 pg/mL Normal 232-1245 [facility] Comment on above: Order Comment: Speci men Type: BLOOD SPECIMENOrdering Facility: [facility] Address: [address] [place] [address] Performed By: #### 2 132-9, 2885-2, 2284-8, 4542-7 ####[facility] LABCLIA [id number] [place] [id number] [place] Zinc SerPl-mCncon 08-24-2024 Zinc [Mass/Vol] 85 ug/dL Normal 60-120 [facility] Comment on above: Order Comment: Speci men Type: BLOOD SPECIMENOrdering Facility: [facility] Address: [address] [place] [address] Result Comment: This test was developed, and its performance characteristics determined by the [facility] Department of Pathology and Laboratory Medicine. It has not been cleared or approved by the FDA. The [facility] Department of Pathology and Laboratory Medicine is regulated under CLIA as qualified to perform high-complexity testing. This test is used for clinical purposes. It should not be regarded as investigational or for research. Performed By: #### C ISABEL, 5763-8 ####[facility] LABCLIA [id number] [place] [id number] [place] CNPNon 08-18-2024 CNPN Normal [facility] 25(OH)D3 SerPl-mCncon 2024 25-hydroxyvitamin D3 [Mass/Vol] 30.5 ng/mL Low 31.0-80.0 [facility] Comment on above: Order Comment: Speci men Type: BLOOD SPECIMENOrdering Facility: [facility] Address: [address] [place] [address] Result Comment: Clas sification of 25 [place] Vitamin D status:Deficiency/Insufficiency: < or = 30 ng/ml.Sufficiency/Optimal Levels: 31-80 ng/mLToxicity: > 100 ng/mL.Test performed by chemiluminescent immunoassay. Performed By: #### 1 989-3 ####[facility] LABCLIA [id number] [address] [place] 25-hydroxyvitamin D3 [Mass/V ol]on 08-16-2024 Interpretation and review of laboratory results Abnormal [facility] The reference range interval was based on an analysis of samples from healthy adults and may not pertain to children from 0-18 years old. [facility] CBC W Auto Differential pane l (Bld)on 08-16-2024 Basophils (Bld) [#/Vol] NINF [facility] Basophils/100 WBC (Bld) 0.3 % [facility] Differential cell count method Nom (Bld) Auto [facility] Eosinophils (Bld) [#/Vol] 0.74 10*3/uL High [facility] Eosinophils/100 WBC (Bld) 10.3 % [facility] Erythrocyte distribution width (RBC) [Ratio] 11.8 % 11.5 - 15.0 % [facility] Hematocrit (Bld) [Volume fraction] 35.6 % Low 36.0 - 46.0 % [facility] Hemoglobin (Bld) [Mass/Vol] 10.5 g/dL Low 11.5 - 15.5 g/dL [facility] Immature granulocytes (Bld) [#/Vol] [facility] Immature granulocytes/100 WBC (Bld) 0.3 % [facility] Interpretation and review of laboratory results Abnormal [facility] Lymphocytes (Bld) [#/Vol] 0.74 10*3/uL Low [facility] Lymphocytes/100 WBC (Bld) 10.3 % [facility] MCH (RBC) [Entitic mass] 29 pg 26.0 - 34.0 pg [facility] MCHC (RBC) [Mass/Vol] 29.5 g/dL Low 30.5 - 36.0 g/dL [facility] MCV (RBC) [Entitic vol] 98.3 fL 80.0 - 100.0 fL [facility] Monocytes (Bld) [#/Vol] 0.83 10*3/uL [facility] Monocytes/100 WBC (Bld) 11.6 % [facility] Neutrophils (Bld) [#/Vol] 4.82 10*3/uL [facility] Neutrophils/100 WBC (Bld) 67.2 % [facility] Nucleated RBC (Bld) [#/Vol] NINF [facility] Nucleated RBC/100 WBC (Bld) [Ratio] 0 % /100 WBC [facility] Platelet mean volume (Bld) [Entitic vol] 11.3 fL 9.0 - 12.7 fL [facility] Platelets (Bld) [#/Vol] 239 10*3/uL [facility] RBC (Bld) [#/Vol] 3.62 10*6/uL Low 3.90 - 5.2 0 m/uL [facility] WBC (Bld) [#/Vol] 7.17 10*3/uL [facility] Basophils (Bld) [#/Vol] 10*3/uL Normal <0.11 [facility] Comment on above: Order Comment: Speci men Type: BLOOD SPECIMENOrdering Facility: [facility] Address: [address] [place] [address] Performed By: #### 5 7021-8 ####[facility] LABCLIA [id number] [place] [address] [place] Basophils/100 WBC (Bld) 0.3 % Normal [facility] Comment on above: Order Comment: Speci men Type: BLOOD SPECIMENOrdering Facility: [facility] Address: [address] [place] [address] Performed By: #### 5 7021-8 ####[facility] LABIA [id number] [place] [id number] [place] Differential cell count method Nom (Bld) Auto Normal [facility] Comment on above: Order Comment: Speci men Type: BLOOD SPECIMENOrdering Facility: [facility] Address: [address] [place] [address] Performed By: #### 5 7021-8 ####[facility] LABCLIA [id number] [place] [address] [place] Eosinophils (Bld) [#/Vol] 0.74 10*3/uL High <0.46 [facility] Comment on above: Order Comment: Speci men Type: BLOOD SPECIMENOrdering Facility: [facility] Address: [address] [place] [address] Performed By: #### 5 7021-8 ####[facility] LABCLIA [id number] [place] [address] [place] Eosinophils/100 WBC (Bld) 10.3 % Normal [facility] Comment on above: Order Comment: Speci men Type: BLOOD SPECIMENOrdering Facility: [facility] Address: [address] [place] [address] Performed By: #### 5 7021-8 ####[facility] LABCLIA [id number] [place] [address] [place] Erythrocyte distribution width (RBC) [Ratio] 11.8 % Normal 11.5-15.0 [facility] Comment on above: Order Comment: Speci men Type: BLOOD SPECIMENOrdering Facility: [facility] Address: [address] [place] [address] Performed By: #### 5 7021-8 ####[facility] LABCLIA [id number] [place] [address] [place] Hematocrit (Bld) [Volume fraction] 35.6 % Low 36.0-46.0 [facility] Comment on above: Order Comment: Speci men Type: BLOOD SPECIMENOrdering Facility: [facility] Address: [address] [place] [address] Performed By: #### 5 7021-8 ####[facility] LABCLIA [id number] [address], [place] [address] [place] Hemoglobin (Bld) [Mass/Vol] 10.5 g/dL Low 11.5-15.5 [facility] Comment on above: Order Comment: Speci men Type: BLOOD SPECIMENOrdering Facility: [facility] Address: [address] [place] [address] Performed By: #### 5 7021-8 ####[facility] LABCLIA [id number] [address], [place] [address] [place] Immature granulocytes (Bld) [#/Vol] 10*3/uL Normal <0.10 [facility] Comment on above: Order Comment: Speci men Type: BLOOD SPECIMENOrdering Facility: [facility] Address: [address] [place] [address] Performed By: #### 5 7021-8 ####[facility] LABIA [id number] [place] [address] [place] Immature granulocytes/100 WBC (Bld) 0.3 % Normal [facility] Comment on above: Order Comment: Speci men Type: BLOOD SPECIMENOrdering Facility: [facility] Address: [address] [place] [address] Performed By: #### 5 7021-8 ####[facility] LABCLIA [id number] [address], [facility] [place] Lymphocytes (Bld) [#/Vol] 0.74 10*3/uL Low 1.00-4.00 [facility] Comment on above: Order Comment: Speci men Type: BLOOD SPECIMENOrdering Facility: [facility] Address: [address] [place] [address] Performed By: #### 5 7021-8 ####[facility] LABCLIA [id number] [address] [place] Lymphocytes/100 WBC (Bld) 10.3 % Normal [facility] Comment on above: Order Comment: Speci men Type: BLOOD SPECIMENOrdering Facility: [facility] Address: [address] [place] [address] Performed By: #### 5 7021-8 ####[facility] LABCLIA [id number] [place] [address] [place] MCH (RBC) [Entitic mass] 29.0 pg Normal 26.0-34.0 [facility] Comment on above: Order Comment: Speci men Type: BLOOD SPECIMENOrdering Facility: [facility] Address: [address] [place] [address] Performed By: #### 5 7021-8 ####[facility] LABIA [id number] [place] [address] [place] MCHC (RBC) [Mass/Vol] 29.5 g/dL Low 30.5-36.0 [facility] Comment on above: Order Comment: Speci men Type: BLOOD SPECIMENOrdering Facility: [facility] Address: [address] [place] [address] Performed By: #### 5 7021-8 ####[facility] LABIA [id number] [place] [address] [place] MCV (RBC) [Entitic vol] 98.3 fL Normal 80.0-100.0 [facility] Comment on above: Order Comment: Speci men Type: BLOOD SPECIMENOrdering Facility: [facility] Address: [address] [place] [address] Performed By: #### 5 7021-8 ####[facility] LABCLIA [id number] [place] [address] [place] Monocytes (Bld) [#/Vol] 0.83 10*3/uL Normal <0.87 [facility] Comment on above: Order Comment: Speci men Type: BLOOD SPECIMENOrdering Facility: [facility] Address: [address] [place] [address] Performed By: #### 5 7021-8 ####[facility] LABCLIA [id number] [place] [address] [place] Monocytes/100 WBC (Bld) 11.6 % Normal [facility] Comment on above: Order Comment: Speci men Type: BLOOD SPECIMENOrdering Facility: [facility] Address: [address] [place] [address] Performed By: #### 5 7021-8 ####[facility] LABCLIA [id number] [place] [address] [place] Neutrophils (Bld) [#/Vol] 4.82 10*3/uL Normal 1.45-7.50 [facility] Comment on above: Order Comment: Speci men Type: BLOOD SPECIMENOrdering Facility: [facility] Address: [address] [place] [address] Performed By: #### 5 7021-8 ####[facility] LABCLIA [id number] [place] [address] [place] Neutrophils/100 WBC (Bld) 67.2 % Normal [facility] Comment on above: Order Comment: Speci men Type: BLOOD SPECIMENOrdering Facility: [facility] Address: [address] [place] [address] Performed By: #### 5 7021-8 ####[facility] LABCLIA [id number] [place] [id number] [place] Nucleated RBC (Bld) [#/Vol] 10*3/uL Normal <0.01 [facility] Comment on above: Order Comment: Speci men Type: BLOOD SPECIMENOrdering Facility: [facility] Address: [address] [place] [address] Performed By: #### 5 7021-8 ####[facility] LABCLIA [id number] [place] [address] [place] Nucleated RBC/100 WBC (Bld) [Ratio] 0.0 /100 WBC Normal [facility] Comment on above: Order Comment: Speci men Type: BLOOD SPECIMENOrdering Facility: [facility] Address: [address] [place] [address] Performed By: #### 5 7021-8 ####[facility] LABIA [id number] [place] [address] [place] Platelet mean volume (Bld) [Entitic vol] 11.3 fL Normal 9.0-12.7 [facility] Comment on above: Order Comment: Speci men Type: BLOOD SPECIMENOrdering Facility: [facility] Address: [address] [place] [address] Performed By: #### 5 7021-8 ####[facility] LABCLIA [id number] [place] [address] [place] Platelets (Bld) [#/Vol] 239 10*3/uL Normal 150-400 [facility] Comment on above: Order Comment: Speci men Type: BLOOD SPECIMENOrdering Facility: [facility] Address: [address] [place] [address] Performed By: #### 5 7021-8 ####[facility] LABIA [id number] [place] [address] [place] RBC (Bld) [#/Vol] 3.62 10*6/uL Low 3.90-5.20 [facility] Comment on above: Order Comment: Speci men Type: BLOOD SPECIMENOrdering Facility: [facility] Address: [address] [place] [address] Performed By: #### 5 7021-8 ####[facility] LABCLIA [id number] [place] [id number] [place] WBC (Bld) [#/Vol] 7.17 10*3/uL Normal 3.70-11.00 [facility] Comment on above: Order Comment: Speci men Type: BLOOD SPECIMENOrdering Facility: [facility] Address: [address] [place] [address] Performed By: #### 5 7021-8 ####[facility] LABCLIA [id number] [place] [address] [place] CNOVon 08-16-2024 CNOV Normal [facility] Cobalamin (Vitamin B12) [Mas s/Vol]on 08-16-2024 Interpretation and review of laboratory results Normal [facility] Comprehensive metabolic 2000 panelon 08-16-2024 Albumin [Mass/Vol] 3.8 g/dL Low 3.9 - 4.9 g/dL [facility] ALP [Catalytic activity/Vol] 121 U/L 34 - 123 U/L [facility] ALT [Catalytic activity/Vol] 10 U/L 7 - 38 U/L [facility] Anion gap [Moles/Vol] 13 mmol/L 8 - 15 mmol/L [facility] AST [Catalytic activity/Vol] 13 U/L 13 - 35 U/L [facility] Bilirubin [Mass/Vol] 0.5 mg/dL 0.2 - 1 .3 mg/dL [facility] Calcium [Mass/Vol] 9.3 mg/dL 8.5 - 10. 2 mg/dL [facility] Chloride [Moles/Vol] 106 mmol/L 98 - 10 7 mmol/L [facility] CO2 [Moles/Vol] 23 mmol/L 22 - 30 mmol/L [facility] Creatinine [Mass/Vol] 1.31 mg/dL High 0.58 - 0.96 mg/dL [facility] GFR/1.73 sq M.predicted among non-blacks MDRD (S/P/Bld) [Vol rate/Area] 46 mL/min/{1.73_m2} Low - PINF [facility] Comment on above: Estimated Glomerular Filtration [...] [Mass/Vol] 88 mg/dL 74 - 99 mg/dL [facility] Comment on above: The [place] [employer] (ADA) provides guidance for [...] Standards of Medical Care in Diabetes 2016, [place] [employer]. Diabetes Care. 2016.39(Suppl 1). Interpretation and review of laboratory results Abnormal [facility] Potassium [Moles/Vol] 3.9 mmol/L 3.7 - 5.1 mmol/L [facility] Protein [Mass/Vol] 7.3 g/dL 6.3 - 8.0 g/dL [facility] Sodium [Moles/Vol] 142 mmol/L 136 - 144 mmol/L [facility] Urea nitrogen [Mass/Vol] 21 mg/dL 7 - 21 mg/dL [facility] Albumin [Mass/Vol] 3.8 g/dL Low 3.9-4.9 [facility] Comment on above: Order Comment: Speci men Type: BLOOD SPECIMENOrdering Facility: [facility] Address: [address] [place] [address] Performed By: #### 2 43205-01, 2131-10 ####[facility] LABCLIA [id number] [place] [address] [place] ALP [Catalytic activity/Vol] 121 U/L Normal 34-123 [facility] Comment on above: Order Comment: Speci men Type: BLOOD SPECIMENOrdering Facility: [facility] Address: [address] [place] [address] Performed By: #### 2 43205-01, 2131-10 ####[facility] LABCLIA [id number] [facility] [address] [place] [address] [place] ALT [Catalytic activity/Vol] 10 U/L Normal 7-38 [facility] Comment on above: Order Comment: Speci men Type: BLOOD SPECIMENOrdering Facility: [facility] Address: [address] [place], [place] [address] Performed By: #### 2 432-8, 2131-10 ####[facility] LABCLIA [id number] [facility] [address] [place] [address] [place] Anion gap [Moles/Vol] 13 mmol/L Normal 8-15 [facility] Comment on above: Order Comment: Speci men Type: BLOOD SPECIMENOrdering Facility: [facility] Address: [address] [place] [address] Performed By: #### 2 4328, 2131-10 ####[facility] LABCLIA [id number] [address], [facility] [place] AST [Catalytic activity/Vol] 13 U/L Normal 13-35 [facility] Comment on above: Order Comment: Speci men Type: BLOOD SPECIMENOrdering Facility: [facility] Address: [address] [place] [address] Performed By: #### 2 432-8, 2131-10 ####[facility] LABCLIA [id number] [address], [facility] [place] Bilirubin [Mass/Vol] 0.5 mg/dL Normal 0.2-1.3 [facility] Comment on above: Order Comment: Speci men Type: BLOOD SPECIMENOrdering Facility: [facility] Address: [address] [place], [place] [address] Performed By: #### 2 4323-8, 2131-10 ####[facility] LABCLIA [id number] [address] [place] [address] [place] Calcium [Mass/Vol] 9.3 mg/dL Normal 8.5-10.2 [facility] Comment on above: Order Comment: Speci men Type: BLOOD SPECIMENOrdering Facility: [facility] Address: [address] [place], [place] [address] Performed By: #### 2 4328, 2131-10 ####[facility] LABCLIA [id number] [address] [address] [place] Chloride [Moles/Vol] 106 mmol/L Normal 98-107 [facility] Comment on above: Order Comment: Speci men Type: BLOOD SPECIMENOrdering Facility: [facility] Address: [address] [place], [place] [address] Performed By: #### 2 4322-09, 2131-10 ####[facility] LABCLIA [id number] [place] [address] [place] CO2 [Moles/Vol] 23 mmol/L Normal 22-30 [facility] Comment on above: Order Comment: Speci men Type: BLOOD SPECIMENOrdering Facility: [facility] Address: [address] [place] [address] Performed By: #### 2 4322-09, 2131-10 ####[facility] LABCLIA [id number] [place] [address] [place] Creatinine [Mass/Vol] 1.31 mg/dL High 0.58-0.96 [facility] Comment on above: Order Comment: Speci men Type: BLOOD SPECIMENOrdering Facility: [facility] Address: [address] [place], [place] [address] Performed By: #### 2 432-8, 2131-10 ####[facility] LABCLIA [id number] [place] [id number] [place] Creatinine and Glomerular filtration rate.predicted panel (S/P/Bld) 46 mL/min/1.73m??? Low >=60 [facility] Comment on above: Order Comment: Speci men Type: BLOOD SPECIMENOrdering Facility: [facility] Address: [address] [place] [address] Result Comment: Tamiko mated Glomerular Filtration Rate [...] GFR. Performed By: #### 2 4322-09, 2131-10 ####[facility] LABIA [id number] [place] [address] [place] Glucose [Mass/Vol] 88 mg/dL Normal 74-99 [facility] Comment on above: Order Comment: Raad talley Type: BLOOD SPECIMENOrdering Facility: [facility] Address: [address] [place] [address] Result Comment: The [place] Diabetes Association (ADA) provides guidance for cutoff [...] Standards of Medical Care in Diabetes 2016, [place] [employer] Association. Diabetes Care. 2016.39(Suppl 1). Performed By: #### 2 4322-09, 2131-10 ####[facility] LABIA [id number] [place] [id number] [place] Potassium [Moles/Vol] 3.9 mmol/L Normal 3.7-5.1 [facility] Comment on above: Order Comment: Raad talley Type: BLOOD SPECIMENOrdering Facility: [facility] Address: [address] [place] [address] Performed By: #### 2 4322-09, 2131-10 ####[facility] LABCLIA [id number] [address] [place] [address] [place] Protein [Mass/Vol] 7.3 g/dL Normal 6.3-8.0 [facility] Comment on above: Order Comment: Speci men Type: BLOOD SPECIMENOrdering Facility: [facility] Address: [address] [place] [address] Performed By: #### 2 4323-8, 2131-10 ####[facility] LABCLIA [id number] [address] [place] [address] [place] Sodium [Moles/Vol] 142 mmol/L Normal 136-144 [facility] Comment on above: Order Comment: Speci men Type: BLOOD SPECIMENOrdering Facility: [facility] Address: [address] [place] [address] Performed By: #### 2 43238, 2131-10 ####[facility] LABIA [id number] [address] [place] [address] [place] Urea nitrogen [Mass/Vol] 21 mg/dL Normal 7-21 [facility] Comment on above: Order Comment: Speci men Type: BLOOD SPECIMENOrdering Facility: [facility] Address: [address] [place] [address] Performed By: #### 2 4323-8, 2131-10 ####[facility] LABIA [id number] [address] [place] [address] [place] FERRITINon 08-16-2024 Ferritin [Mass/Vol] 297 ng/mL High 14.7 - 205.1 ng/mL [facility] Ferritin SerPl-mCncon 2024 Ferritin [Mass/Vol] 297.0 ng/mL High 14.7-205.1 [facility] Comment on above: Order Comment: Speci men Type: BLOOD SPECIMENOrdering Facility: [facility] Address: [address] [place] [address] Performed By: #### 2 276-4, 3016-3, 60992-6, 03255-6 ####[facility] LABCLIA [id number] [place] [id number] [place] Ferritin [Mass/Vol]on 2024 Interpretation and review of laboratory results Abnormal [facility] HbA1c (Bld)on 08-16-2024 Average glucose Estimated from glycated hemoglobin (Bld) [Mass/Vol] 82 mg/dL [facility] Comment on above: eAG: (Estimated aver age glucose) is a calculated value from HgbA1c and is retention representative of the average blood glucose level in the last 2-3 month period. HbA1c (Bld) [Mass fraction] 4.5 % 4.3 - 5.6 % [facility] Comment on above: [place] Diabetes As sociation guidelines indicate that patients with HgbA1c in the range 5.7-6.4% are at increased risk for development of diabetes, and intervention by lifestyle modification may be beneficial. HgbA1c greater or equal to 6.5% is considered diagnostic of diabetes. [facility] Average glucose Estimated from glycated hemoglobin (Bld) [Mass/Vol] 82 mg/dL Normal [facility] Comment on above: Order Comment: Raad talley Type: BLOOD SPECIMENOrdering Facility: [facility] Address: [address] [place] [address] Result Comment: eAG: (Estimated average glucose) is a calculated value from HgbA1c and is retention representative of the average blood glucose level in the last 2-3 month period. Performed By: #### 5 5454-3 ####[facility] LABCLIA [id number] [address] [address] [place] HbA1c (Bld) [Mass fraction] 4.5 % Normal 4.3-5.6 [facility] Comment on above: Order Comment: Raad talley Type: BLOOD SPECIMENOrdering Facility: [facility] Address: [address] [place] [address] Result Comment: [place] Diabetes Association guidelines indicate that patients with HgbA1c in the range 5.7-6.4% are at increased risk for development of diabetes, and intervention by lifestyle modification may be beneficial. HgbA1c greater or equal to 6.5% is considered diagnostic of diabetes. Performed By: #### 5 5454-3 ####[facility] LABCLIA [id number] [place] [id number] [place] Iron and Iron binding capaci ty panelon 08-16-2024 Interpretation and review of laboratory results Abnormal [facility] Iron [Mass/Vol] 29 ug/dL Low 41 - 186 ug/dL [facility] Iron binding capacity [Mass/Vol] 202 ug/dL Low 232 - 386 ug/dL [facility] Iron/TIBC [Molar ratio] 14.4 % Low 15.0 - 57.0 % [facility] Iron [Mass/Vol] 29 ug/dL Low 41-186 [facility] Comment on above: Order Comment: Speci men Type: BLOOD SPECIMENOrdering Facility: [facility] Address: [address] [place] [address] Performed By: #### 2 276-4, 3016-3, , 26681-2 ####[facility] LABCLIA [id number] [place] [address] [place] Iron binding capacity [Mass/Vol] 202 ug/dL Low 232-386 [facility] Comment on above: Order Comment: Speci men Type: BLOOD SPECIMENOrdering Facility: [facility] Address: [address] [place] [address] Performed By: #### 2 276-4, 3016-3, , 39423-5 ####[facility] LABCLIA [id number] [place] [id number] [place] Iron/TIBC [Molar ratio] 14.4 % Low 15.0-57.0 [facility] Comment on above: Order Comment: Speci men Type: BLOOD SPECIMENOrdering Facility: [facility] Address: [address] [place] [address] Performed By: #### 2 276-4, 3016-3, , 16507-2 ####[facility] LABCLIA [id number] [place] [id number] [place] MAGNESIUMon 08-16-2024 Magnesium [Mass/Vol] 1.7 mg/dL 1.7 - 2 .3 mg/dL [facility] Magnesium SerPl-mCncon 08-16 Magnesium [Mass/Vol] 1.7 mg/dL Normal 1.7-2.3 [facility] Comment on above: Order Comment: Speci men Type: BLOOD SPECIMENOrdering Facility: [facility] Address: [address] [place], [place] [address] Performed By: #### 2 276-4, 3016-3, 56543-6, 15121-7 ####[facility] LABCLIA [id number] [place] [id number] [place] Magnesium [Mass/Vol]on 08-16 Interpretation and review of laboratory results Normal [facility] No Panel Informationon 08-16 [facility] THYROID STIMULATING HORMONEo n 08-16-2024 TSH Qn 2.33 m[IU]/L [facility] TSH Qnon 08-16-2024 Interpretation and review of laboratory results Normal [facility] TSH SerPl-aCncon 08-16-2024 TSH Qn 2.330 m[IU]/L Normal 0.270-4.200 [facility] Comment on above: Order Comment: Speci men Type: BLOOD SPECIMENOrdering Facility: [facility] Address: [address] [place], [place] [address] Performed By: #### 2 276-4, 3016-3, 14251-9, 02678-6 ####[facility] LABCLIA [id number] [place] [id number] [place] VITAMIN B12on 08-16-2024 Cobalamin (Vitamin B12) [Mass/Vol] 569 pg/mL 232 - 1245 pg/mL [facility] VITAMIN D 25 HYDROXYon 08-16 25-hydroxyvitamin D3 [Mass/Vol] 30.5 ng/mL Low 31.0 - 80.0 ng/mL [facility] Comment on above: Classification of 25 [place] Vitamin D status: Deficiency/Insufficiency: < or = 30 ng/ml. Sufficiency/Optimal Levels: 31-80 ng/mL Toxicity: > 100 ng/mL. Test performed by chemiluminescent immunoassay. Vit B12 [facility] Cobalamin (Vitamin B12) [Mass/Vol] 569 pg/mL Normal 232-1245 [facility] Comment on above: Order Comment: Speci men Type: BLOOD SPECIMENOrdering Facility: [facility] Address: [address] [place] [address] Performed By: #### 2 4323-8, 2132-9 ####[facility] LABIA [id number] [place] [address] [place] CNPNon 07-27-2024 CNPN Normal [facility] CNPNon 07-26-2024 CNPN Normal [facility] Bacteria Ur Culton Bacteria identified Cx Nom (U) Normal [facility] Comment on above: Performed By: #### 6 30-4 ####[facility] LABCLIA [id number] [place] [address] [place] CNOVon 07-18-2024 CNOV Normal [facility] UA DIP, URINE (POC)on 2024 BILIRUBIN UA (POCT) Negative Negative [facility] CLARITY UA (POCT) Clear [facility] COLOR UA (POCT) Yellow [facility] GLUCOSE UA (POCT) Negative Negative mg/dL [facility] Hemoglobin Ql (U) Moderate Abnormal Negative [facility] Interpretation and review of laboratory results Abnormal [facility] KETONE UA (POCT) Negative Negative mg/dL [facility] LEUKOCYTES UA (POCT) Trace Abnormal Negative [facility] NITRITE UA (POCT) Negative Negative [facility] PH UA (POCT) 6 4.5 - 8.0 [facility] Protein Ql (U) 100 mg/dL Abnormal Negative [facility] SPECIFIC GRAVITY UA (POCT) 1.02 1.005 - 1.030 [facility] UROBILINOGEN UA (POCT) 0.2 Carmen l E.U./dL [facility] Location:[facility], [address], [place], [address] [facility] POINT OF CARE [facility] Surgery Visit Reporton 07-16 Surgery Visit Report [facility] [address] [place] [address] OFFICE VISIT Date of Service: 07/16/24 MR#: [id number] Acct: [id number] Name: MEGGAN ARITA Rep #: [id number] : 1960 Provider: Dr. Raysa araujo MD Age/Sex: 63/F Location: [facility] Status: Signed Intake Vital Signs 12/26/23 13:25 [...] gastritis. Patient's last EGD was by Dr. Corbett Friend 11/2021 showed chronic gastritis. Patient states the [...] Off vis,est,level 3 Diagnoses LUQ pain R10.12 PFSH Medical History Hypokalemia Asymptomatic bacteriuria Gastroenteritis Chronic respiratory failure with hypoxia and hypercapnia Anemia Anxiety Sleep apnea CPAP (continuous positive airway pressure) dependence Asthma Type 2 diabetes mellitus Obesity Hypertension (more content not included)... Normal [facility] Bacteria Ur Culton 5 Bacteria identified Cx Nom (U) Normal [facility] Comment on above: Performed By: #### 6 30-4 ####[facility] LABCLIA [id number] [place] [address] [place] CNOVon 06-23-2024 CNOV Normal [facility] CNPNon 06-23-2024 CNPN Normal [facility] UA DIP, URINE (POC)on 2024 BILIRUBIN UA (POCT) Negative Negative [facility] CLARITY UA (POCT) Clear [facility] COLOR UA (POCT) Yellow [facility] GLUCOSE UA (POCT) Negative Negative mg/dL [facility] Hemoglobin Ql (U) Moderate Abnormal Negative [facility] Interpretation and review of laboratory results Abnormal [facility] KETONE UA (POCT) Negative Negative mg/dL [facility] LEUKOCYTES UA (POCT) Trace Abnormal Negative [facility] NITRITE UA (POCT) Negative Negative [facility] PH UA (POCT) 5.5 4.5 - 8.0 [facility] Protein Ql (U) 100 mg/dL Abnormal Negative [facility] SPECIFIC GRAVITY UA (POCT) 1.025 1.005 - 1.030 [facility] UROBILINOGEN UA (POCT) 0.2 Carmen l E.U./dL [facility] Location:[address], [address] [place] [address] POINT OF CARE [facility] CNOVon 06-22-2024 CNOV Normal [facility] CNPNon 06-07-2024 CNPN Normal [facility] CNPNon 06-03-2024 CNPN Normal [facility] CNPNon 05-22-2024 CNPN Normal [facility] CNOVon 05-07-2024 CNOV Normal [facility] CNPNon 04-24-2024 CNPN Normal [facility] 25(OH)D3 [facility] 20[facility] 25-hydroxyvitamin D3 [Mass/Vol] 25.8 ng/mL Low 31.0-80.0 [facility] Comment on above: Order Comment: Speci men Type: BLOOD SPECIMENOrdering Facility: [facility] Address: [address] [place] [address] Performed By: #### 1 989-3 ####[facility] LABCLIA [id number] [place] [address] [place] CBC panel Auto (Bld)on 04-23 Erythrocyte distribution width (RBC) [Ratio] 12.0 % Normal 11.5-15.0 [facility] Comment on above: Order Comment: Speci men Type: BLOOD SPECIMENOrdering Facility: [facility] Address: [address] [place] [address] Performed By: #### 5 8410-2 ####[facility] MAXWELLIsaacNCLIA [id number] [place] [address] [place] Hematocrit (Bld) [Volume fraction] 37.3 % Normal 36.0-46.0 [facility] Comment on above: Order Comment: Speci men Type: BLOOD SPECIMENOrdering Facility: [facility] Address: [address] [place] [address] Performed By: #### 5 8410-2 ####[facility]ITALNCLIA [id number] [place] [address] [place] Hemoglobin (Bld) [Mass/Vol] 11.3 g/dL Low 11.5-15.5 [facility] Comment on above: Order Comment: Speci men Type: BLOOD SPECIMENOrdering Facility: [facility] Address: [address] [place] [address] Performed By: #### 5 8410-2 ####[facility]ITALNCLIA [id number] [place] [address] [place] MCH (RBC) [Entitic mass] 29.5 pg Normal 26.0-34.0 [facility] Comment on above: Order Comment: Speci men Type: BLOOD SPECIMENOrdering Facility: [facility] Address: [address] [place] [address] Performed By: #### 5 8410-2 ####[facility]OS[facility]ITALNCLIA [id number] [place] [address] [place] MCHC (RBC) [Mass/Vol] 30.3 g/dL Low 30.5-36.0 [facility] Comment on above: Order Comment: Speci men Type: BLOOD SPECIMENOrdering Facility: [facility] Address: [address] [place] [address] Performed By: #### 5 8410-2 ####[facility] AJAY [id number] [address] [place] MCV (RBC) [Entitic vol] 97.4 fL Normal 80.0-100.0 [facility] Comment on above: Order Comment: Speci men Type: BLOOD SPECIMENOrdering Facility: [facility] Address: [address] [place] [address] Performed By: #### 5 8410-2 ####[facility] HOSPITALREJI [id number] [place] [address] [place] Nucleated RBC (Bld) [#/Vol] 10*3/uL Normal <0.01 [facility] Comment on above: Order Comment: Speci men Type: BLOOD SPECIMENOrdering Facility: [facility] Address: [address] [place] [address] Performed By: #### 5 8410-2 ####[facility] HOSPITALMINA [id number] [place] [address] [place] Platelet mean volume (Bld) [Entitic vol] 11.3 fL Normal 9.0-12.7 [facility] Comment on above: Order Comment: Speci men Type: BLOOD SPECIMENOrdering Facility: [facility] Address: [address] [place] [address] Performed By: #### 5 8410-2 ####[facility] MXAWELLERWINLIA [id number] [place] [address] [place] Platelets (Bld) [#/Vol] 259 10*3/uL Normal 150-400 [facility] Comment on above: Order Comment: Speci men Type: BLOOD SPECIMENOrdering Facility: [facility] Address: [address] [place] [address] Performed By: #### 5 8410-2 ####[facility]ITALA [id number] [place] [address] [place] RBC (Bld) [#/Vol] 3.83 10*6/uL Low 3.90-5.20 [facility] Comment on above: Order Comment: Speci men Type: BLOOD SPECIMENOrdering Facility: [facility] Address: [address] [place] [address] Performed By: #### 5 8410-2 ####[facility] [id number] [place] [address] [place] WBC (Bld) [#/Vol] 6.97 10*3/uL Normal 3.70-11.00 [facility] Comment on above: Order Comment: Speci men Type: BLOOD SPECIMENOrdering Facility: [facility] Address: [address] [place] [address] Performed By: #### 5 8410-2 ####[facility] [id number] [place] [address] [place] CNOVon 04-23-2024 CNOV Normal [facility] Comprehensive metabolic 2000 panelon 04-23-2024 Albumin [Mass/Vol] 3.9 g/dL Normal 3.9-4.9 [facility] Comment on above: Order Comment: Speci men Type: BLOOD SPECIMENOrdering Facility: [facility] Address: [address] [place] [address] Performed By: #### 2 4328, 2131-10 ####[facility]ATORYCLIA [id number] [place] [address] [place] ALP [Catalytic activity/Vol] 124 U/L High 34-123 [facility] Comment on above: Order Comment: Speci men Type: BLOOD SPECIMENOrdering Facility: [facility] Address: [address] [place] [address] Performed By: #### 2 432-8, 2131-10 ####[facility] LABORATORYCLIA [id number] [place] [address] [place] ALT With P-5'-P [Catalytic activity/Vol] 15 U/L Normal 7-38 [facility] Comment on above: Order Comment: Speci men Type: BLOOD SPECIMENOrdering Facility: [facility] Address: [address] [place] [address] Performed By: #### 2 4323-8, 2131-10 ####[facility] LABORATORYCLIA [id number] [place] [id number] [place] Anion gap [Moles/Vol] 12 mmol/L Normal 8-15 [facility] Comment on above: Order Comment: Speci men Type: BLOOD SPECIMENOrdering Facility: [facility] Address: [address] [place] [address] Performed By: #### 2 4328, 2131-10 ####[facility] LABORATORYCLIA [id number] [place] [address] [place] AST With P-5'-P [Catalytic activity/Vol] 15 U/L Normal 13-35 [facility] Comment on above: Order Comment: Speci men Type: BLOOD SPECIMENOrdering Facility: [facility] Address: [address] [place] [address] Performed By: #### 2 4328, 2131-10 ####[facility] LABORATORYCLIA [id number] [place] [id number] [place] Bilirubin [Mass/Vol] 0.4 mg/dL Normal 0.2-1.3 [facility] Comment on above: Order Comment: Speci men Type: BLOOD SPECIMENOrdering Facility: [facility] Address: [address] [place] [address] Performed By: #### 2 4323-8, 2131-10 ####[facility]ORATORYCLIA [id number] [place] [address] [place] Calcium [Mass/Vol] 9.3 mg/dL Normal 8.5-10.2 [facility] Comment on above: Order Comment: Speci men Type: BLOOD SPECIMENOrdering Facility: [facility] Address: [address] [place] [address] Performed By: #### 2 4328, 2131-10 ####[employer] [facility] LABORATORYCLIA [id number] [place] [address] [place] Chloride [Moles/Vol] 110 mmol/L High 98-107 [facility] Comment on above: Order Comment: Speci men Type: BLOOD SPECIMENOrdering Facility: [facility] Address: [address] [place] [address] Performed By: #### 2 4328, 2131-10 ####[employer] [facility] LABORATORYCLIA [id number] [place] [id number] [place] CO2 [Moles/Vol] 24 mmol/L Normal 22-30 [facility] Comment on above: Order Comment: Speci men Type: BLOOD SPECIMENOrdering Facility: [facility] Address: [address] [place] [address] Performed By: #### 2 43205-01, 2131-10 ####[employer] [facility] LABORATORYCLIA [id number] [place] [address] [place] Creatinine [Mass/Vol] 1.35 mg/dL High 0.58-0.96 [facility] Comment on above: Order Comment: Speci men Type: BLOOD SPECIMENOrdering Facility: [facility] Address: [address] [place] [address] Performed By: #### 2 4328, 2131-10 ####[employer] [facility]ORATORYCLIA [id number] [place] [address] [place] Creatinine and Glomerular filtration rate.predicted panel (S/P/Bld) 44 mL/min/1.73m??? Low >=60 [facility] Comment on above: Order Comment: Speci men Type: BLOOD SPECIMENOrdering Facility: [facility] Address: [address] [place] [address] Result Comment: Tamiko mated Glomerular Filtration Rate [...] GFR. Performed By: #### 2 43205-01, 2131-10 ####[facility][1] LABORATORYCLIA [id number] [place] [address] [place] Glucose [Mass/Vol] 85 mg/dL Normal 74-99 [facility] Comment on above: Order Comment: Raad talley Type: BLOOD SPECIMENOrdering Facility: [facility] Address: [address] [place] [address] Result Comment: The [place] Diabetes Association (ADA) provides guidance for cutoff [...] Standards of Medical Care in Diabetes 2016, [place] Diabetes Association. Diabetes Care. 2016.39(Suppl 1). Performed By: #### 2 4322-09, 2131-10 ####[employer] [facility] LABORATORYCLIA [id number] [place] [address] [place] Potassium [Moles/Vol] 4.3 mmol/L Normal 3.7-5.1 [facility] Comment on above: Order Comment: Raad talley Type: BLOOD SPECIMENOrdering Facility: [facility] Address: [address] [place] [address] Performed By: #### 2 4322-09, 2131-10 ####[employer] [facility] LABORATORYCLIA [id number] [place] [address] [place] Protein [Mass/Vol] 7.4 g/dL Normal 6.3-8.0 [facility] Comment on above: Order Comment: Speci men Type: BLOOD SPECIMENOrdering Facility: [facility] Address: [address] [place] [address] Performed By: #### 2 432-8, 2131-10 ####[facility] [facility] LABORATORYCLIA [id number] [place] [address] [place] Sodium [Moles/Vol] 146 mmol/L High 136-144 [facility] Comment on above: Order Comment: Speci men Type: BLOOD SPECIMENOrdering Facility: [facility] Address: [address] [place] [address] Performed By: #### 2 43205-01, 2131-10 ####[facility] LABORATORYCLIA [id number] [place] [address] [place] Urea nitrogen [Mass/Vol] 23 mg/dL High 7-21 [facility] Comment on above: Order Comment: Speci men Type: BLOOD SPECIMENOrdering Facility: [facility] Address: [address] [place] [address] Performed By: #### 2 43205-01, 2131-10 ####NDPENELOPE [facility] LABORATORYCLIA [id number] [place] [address] [place] HbA1c (Bld)on 04-23-2024 Average glucose Estimated from glycated hemoglobin (Bld) [Mass/Vol] 88 mg/dL Normal [facility] Comment on above: Order Comment: Speci men Type: BLOOD SPECIMENOrdering Facility: [facility] Address: [address] [place] [address] Result Comment: eAG: (Estimated average glucose) is a calculated value from HgbA1c and is retention representative of the average blood glucose level in the last 2-3 month period. Performed By: #### 5 5454-3 ####[facility] LABCLIA [id number] [place] [address] [place] HbA1c (Bld) [Mass fraction] 4.7 % Normal 4.3-5.6 [facility] Comment on above: Order Comment: Speci men Type: BLOOD SPECIMENOrdering Facility: [facility] Address: [address] [place] [address] Result Comment: Amer ican Diabetes Association guidelines indicate that patients with HgbA1c in the range 5.7-6.4% are at increased risk for development of diabetes, and intervention by lifestyle modification may be beneficial. HgbA1c greater or equal to 6.5% is considered diagnostic of diabetes. Performed By: #### 5 5454-3 ####[facility] LABCLIA [id number] [address] [place] Iron and Iron binding capaci ty panelon 04-23-2024 Iron [Mass/Vol] 63 ug/dL Normal 41-186 [facility] Comment on above: Order Comment: Speci men Type: BLOOD SPECIMENOrdering Facility: [facility] Address: [address] [place] [address] Performed By: #### 2 4331-1 ####[facility] LABORATORYCLIA [id number] [address] [id number] [place] [address] [place]#### 3024-7, 02054-9, 6-3 ####[facility] LABORATORYCLIA [id number] [address] STATES [facility] Iron binding capacity [Mass/Vol] 224 ug/dL Low 232-386 [facility] Comment on above: Order Comment: Speci men Type: BLOOD SPECIMENOrdering Facility: [facility] Address: [address] [place] [address] Performed By: #### 2 4331-1 ####[facility]ORATORYCLIA [id number] [address] [id number] [place] [address] [place]#### 3024-7, 62019-9, 6-3 ####[facility]ORATORYCLIA [id number] [address] Iron saturation [Mass fraction] 28.1 % Normal 15.0-57.0 [facility] Comment on above: Order Comment: Speci men Type: BLOOD SPECIMENOrdering Facility: [facility] Address: [address] [place] [address] Performed By: #### 2 4331-1 ####[facility]ORATORYCLIA [id number] [address] [id number] [place] [address] [place]#### 3024-7, 83752-7, 3016-3 ####[facility] LABORATORYCLIA [id number] [address] STATES OF [facility] Lipid 1996 panelon 5 Cholesterol [Mass/Vol] 155 mg/dL Normal <200 [facility] Comment on above: Order Comment: Speci men Type: BLOOD SPECIMENOrdering Facility: [facility] Address: [address] [place] [address] Result Comment: <200 mg/dL, Desirable 200-239 mg/dL, Borderline high>239 mg/dL, High Performed By: #### 2 4331-1 ####[facility]ORATORYCLIA [id number] [address] [id number] [place] [address] [place]#### 3024-7, 45986-7, 3016-3 ####[facility] LABORATORYCLIA [id number] [address] [place] Cholesterol in HDL [Mass/Vol] 51 mg/dL Normal >39 [facility] Comment on above: Order Comment: Speci men Type: BLOOD SPECIMENOrdering Facility: [facility] Address: [address] [place] [address] Result Comment: 40-5 9 mg/dL, Acceptable>59 mg/dL, High: Negative risk factor for coronary heart disease<40 mg/dL, Low: Positive risk factor for coronary heart disease Performed By: #### 2 4331-1 ####[facility][1] LABORATORYCLIA [id number] [place] [address] [facility] [id number] [address] [place]#### 3024-7, 45529-5, 3016-3 ####[facility] LABORATORYCLIA [id number] [address] STATES [facility] Cholesterol in LDL [Mass/Vol] 95 mg/dL Normal <100 [facility] Comment on above: Order Comment: Speci men Type: BLOOD SPECIMENOrdering Facility: [facility] Address: [address] [place] [address] Result Comment: <100 mg/dL, Optimal 100-129 mg/dL, Near optimal/above optimal 130-159 mg/dL, Borderline high 160-189 mg/dL, High>189 mg/dL, Very highSecondary prevention optimal LDL Cholesterol levels are recommended to be < 70 mg/dL Performed By: #### 2 4331-1 ####[facility][1] LABORATORYCLIA [id number] [address] [id number] [address] [place]#### 3024-7, 68468-4, 3016-3 ####[facility] LABORATORYCLIA [id number] [address] [place] Cholesterol in LDL/Cholesterol in HDL [Mass ratio] 1.86 {ratio} Normal <2.54 [facility] Comment on above: Order Comment: Speci men Type: BLOOD SPECIMENOrdering Facility: [facility] Address: [address] [place] [address] Result Comment: Refe rence:1. National Cholesterol Education Program ATP III Guideline At-A-Glance Quick Desk Reference: National Heart, Lung, and Blood [place]. National Institutes of Health. 2001: NIH Publication No. 01-3305.2. An International Atherosclerosis Society position paper: global recommendations for the management of dyslipidemia: executive summary, Atherosclerosis. 2014: 232(2):410-413. Performed By: #### 2 4331-1 ####[facility]ORATORYCLIA [id number] [address] [id number] [address]#### 3024-7, 49400-5, 3016-3 ####[facility]ORATORYCLIA [id number] [address] Cholesterol in VLDL [Mass/Vol] 9 mg/dL Normal <30 [facility] Comment on above: Order Comment: Speci men Type: BLOOD SPECIMENOrdering Facility: [facility] Address: [address] [place] [address] Performed By: #### 2 4331-1 ####[facility]ORATORYCLIA [id number] [address] [id number] [place] [address]#### 3024-7, 18911-0, 3016-3 ####[facility]ORATORYCLIA [id number] [address] [place] Cholesterol non HDL [Mass/Vol] 104 mg/dL Normal <130 [facility] Comment on above: Order Comment: Speci men Type: BLOOD SPECIMENOrdering Facility: [facility] Address: [address] [place] [address] Result Comment: <130 mg/dL, Optimal 130-159 mg/dL, Near optimal/above optimal 160-189 mg/dL, Borderline high 190-219 mg/dL, High>219 mg/dL, Very highSecondary prevention optimal non HDL Cholesterol levels are recommended to be <100 mg/dL Performed By: #### 2 4331-1 ####[facility]ORATORYCLIA [id number] [place], [place] [address] [place] [address] [id number] [place]#### 3024-7, 17258-9, 3016-3 ####[facility]ORATORYCLIA [id number] [place] [address] [place] Cholesterol.total/Chol esterol in HDL [Mass ratio] 3.04 {ratio} Normal <5.10 [facility] Comment on above: Order Comment: Speci men Type: BLOOD SPECIMENOrdering Facility: [facility] Address: [address] [place] [address] Performed By: #### 2 4331-1 ####[facility]ORATORYCLIA [id number] [address] [id number] [place] [address] [place]#### 3024-7, 62412-3, 3016-3 ####[facility]ORATORYCLIA [id number] [place] [address] [place] FASTING TIME 12 hrs Normal [facility] Comment on above: Order Comment: Speci men Type: BLOOD SPECIMENOrdering Facility: [facility] Address: [address] [place] [address] Performed By: #### 2 4331-1 ####[facility]ORATORYCLIA [id number] [place], [place] [address] [place] [address] STATES OF [facility] [id number] [place] [address] [place]#### 3024-7, 88298-4, 3016-3 ####[facility]ORATORYCLIA [id number] [place] [address] [place] Triglyceride [Mass/Vol] 46 mg/dL Normal <150 [facility] Comment on above: Order Comment: Speci men Type: BLOOD SPECIMENOrdering Facility: [facility] Address: [address] [place] [address] Result Comment: <150 mg/dL, Normal 150-199 mg/dL, Borderline high 200-499 mg/dL, High>499 mg/dL, Very high Performed By: #### 2 4331-1 ####[facility]ORATORYCLIA [id number] [address] [id number] [place] [address] [place]#### 3024-7, 79468-4, 3016-3 ####[facility]ORATORYCLIA [id number] [address] [place] T4 Free SerPl-mCncon 025 Free T4 [Mass/Vol] 1.2 ng/dL Normal 0.9-1.7 [facility] Comment on above: Order Comment: Speci men Type: BLOOD SPECIMENOrdering Facility: [facility] Address: [address] [place] [address] Performed By: #### 2 4331-1 ####[facility]ORATORYCLIA [id number] [address] [id number] [place] [address] [place]#### 3024-7, 71607-2, 3016-3 ####[facility]ORATORYCLIA [id number] [address] [place] TSH SerPl-aCncon 04-23-2024 TSH Qn 2.930 m[IU]/L Normal 0.270-4.200 [facility] Comment on above: Order Comment: Speci men Type: BLOOD SPECIMENOrdering Facility: [facility] Address: [address] [place] [address] Performed By: #### 2 4331-1 ####[facility]ORATORYCLIA [id number] [place] [address] [place] [facility] [id number] [place] [address] [place]#### 3024-7, 85804-5, 3016-3 ####[facility][1] LABORATORYCLIA [id number] [place] [address] [place] Vit B12 SerPl-ncon 025 Cobalamin (Vitamin B12) [Mass/Vol] 608 pg/mL Normal 232-1245 [facility] Comment on above: Order Comment: Speci men Type: BLOOD SPECIMENOrdering Facility: [facility] Address: [address] [place] [address] Performed By: #### 2 4323-8, 2132-9 ####[facility][1] LABORATORYCLIA [id number] [place] [id number] [place] CNPNon 03-26-2024 CNPN Normal [facility] Bacteria Ur Culton Bacteria identified Cx Nom (U) ORGANISM ID: 1 10,000 -<50,000 CFU/ml Normal urogenital paco Normal [facility] Comment on above: Performed By: #### 6 30-4 ####[facility] LABCLIA [id number] [place] [address] [place] URINALYSIS, REFLEX MICROSCOP ICon 03-20-2024 Bilirubin Ql (U) Negative Normal Negative [facility] Comment on above: Order Comment: Speci men Type: URINE SPECIMENOrdering Facility: [facility] Address: [address] [place] [address] Performed By: #### L [id number] ####[facility] LABCLIA [id number] [place] [address] [place] Clarity (Unsp spec) Clear Normal Clear [facility] Comment on above: Order Comment: Speci men Type: URINE SPECIMENOrdering Facility: [facility] Address: [address] [place] [address] Performed By: #### L [id number] ####[facility] LABCLIA [id number] [place] [address] [place] Color (U) Yellow Normal Yellow [facility] Comment on above: Order Comment: Speci men Type: URINE SPECIMENOrdering Facility: [facility] Address: [address] [place] [address] Performed By: #### L [id number] ####[facility] LABCLIA [id number] [place] [address] [place] Glucose Test strip (U) [Mass/Vol] Negative Normal Negative [facility] Comment on above: Order Comment: Speci men Type: URINE SPECIMENOrdering Facility: [facility] Address: [address] [place] [address] Performed By: #### L [id number] ####[facility] LABCLIA [id number] [place] [address] [place] Hemoglobin Ql (U) Negative Normal Negative [facility] Comment on above: Order Comment: Speci men Type: URINE SPECIMENOrdering Facility: [facility] Address: [address] [place] [address] Performed By: #### L [id number] ####[facility] LABCLIA [id number] [place] [address] [place] Ketones Ql (U) Negative Normal Negative [facility] Comment on above: Order Comment: Speci men Type: URINE SPECIMENOrdering Facility: [facility] Address: [address] [place] [address] Performed By: #### L [id number] ####[facility] LABCLIA [id number] [place] [address] [place] Leukocyte esterase Test strip Ql (U) Negative Normal Negative [facility] Comment on above: Order Comment: Speci men Type: URINE SPECIMENOrdering Facility: [facility] Address: [address] [place] [address] Performed By: #### L [id number] ####[facility] LABCLIA [id number] [place] [address] [place] Nitrite Ql (U) Negative Normal Negative [facility] Comment on above: Order Comment: Speci men Type: URINE SPECIMENOrdering Facility: [facility] Address: [address] [place] [address] Performed By: #### L [id number] ####[facility] LABCLIA [id number] [place] [address] [place] pH (U) 6.0 [pH] Normal <8.5 [facility] Comment on above: Order Comment: Speci men Type: URINE SPECIMENOrdering Facility: [facility] Address: [address] [place] [address] Performed By: #### L [id number] ####[facility] LABCLIA [id number] [place] [address] [place] Protein (U) [Mass/Vol] Negative Normal Negative [facility] Comment on above: Order Comment: Speci men Type: URINE SPECIMENOrdering Facility: [facility] Address: [address] [place] [address] Performed By: #### L [id number] ####[facility] LABIA [id number] [place] [address] [place] Specific gravity (U) [Rel density] 1.021 Normal 1.005-1.030 [facility] Comment on above: Order Comment: Speci men Type: URINE SPECIMENOrdering Facility: [facility] Address: [address] [place] [address] Performed By: #### L [id number] ####[facility] LABCLIA [id number] [place] [address] [place] Urobilinogen Ql (U) 0.2 EU/dL Normal 0.2-1.0 EU/dL [facility] Comment on above: Order Comment: Speci men Type: URINE SPECIMENOrdering Facility: [facility] Address: [address] [place] [address] Performed By: #### L [id number] ####[facility] LABCLIA [id number] [address] [place] [address] [place] CNPNon 03-18-2024 CNPN Normal [facility] Orthopedic Visit Reporton Orthopedic Visit Report [facility] [facility] [address] [place] [address] OFFICE VISIT Date of Service: 03/10/24 MR#: [id number] Acct: [id number] Name: MEGGAN ARITA Rep #: [id number] : 1960 Provider: Dr. Sam Toussaint so DO Age/Sex: 63/F Location[place] [facility] [place] Status: Signed Intake Vital Signs 12/26/23 13:25 [...] subcut 06/30/23 03/10/24 History subcutaneous pen injector (Mounjaro) venlafaxine 75 mg capsule,extended 75 mg PO [...] Vazquez ATC, (more content not included)... Normal [facility] CNPNon 02-27-2024 CNPN Normal [facility] Bacteria Ur Culton 4 Bacteria identified Cx Nom (U) Abnormal [facility] Comment on above: Performed By: #### 6 30-4 ####[facility] LABCLIA [id number] [place] [address] [place] Urinalysis complete panel (U )on 02-23-2024 Bacteria LM.HPF (Urine sed) [#/Area] Negative Normal Negative [facility] Comment on above: Order Comment: Speci men Type: URINE SPECIMENOrdering Facility: [facility] Address: [address] [place] [address] Performed By: #### 2 4356-8 ####[facility] LABCLIA [id number] [place] [address] [place] Bilirubin Ql (U) Negative Normal Negative [facility] Comment on above: Order Comment: Speci men Type: URINE SPECIMENOrdering Facility: [facility] Address: [address] [place] [address] Performed By: #### 2 4356-8 ####[facility] LABCLIA [id number] [place] [address] [place] Clarity (Unsp spec) Clear Normal Clear [facility] Comment on above: Order Comment: Speci men Type: URINE SPECIMENOrdering Facility: [facility] Address: [address] [place] [address] Performed By: #### 2 4356-8 ####[facility] LABCLIA [id number] [place] [address] [place] Color (U) Yellow Normal Yellow [facility] Comment on above: Order Comment: Speci men Type: URINE SPECIMENOrdering Facility: [facility] Address: [address] [place] [address] Performed By: #### 2 4356-8 ####[facility] LABCLIA [id number] [place] [address] [place] Epithelial cells LM.HPF (Urine sed) [#/Area] None Seen Normal [facility] Comment on above: Order Comment: Speci men Type: URINE SPECIMENOrdering Facility: [facility] Address: [address] [place] [address] Performed By: #### 2 4356-8 ####[facility] LABCLIA [id number] [place] [address] [place] Glucose Test strip (U) [Mass/Vol] Negative Normal Negative [facility] Comment on above: Order Comment: Speci men Type: URINE SPECIMENOrdering Facility: [facility] Address: [address] [place] [address] Performed By: #### 2 4356-8 ####[facility] LABCLIA [id number] [place] [address] [place] Hemoglobin Ql (U) 1+ Abnormal Negative [facility] Comment on above: Order Comment: Speci men Type: URINE SPECIMENOrdering Facility: [facility] Address: [address] [place] [address] Performed By: #### 2 4356-8 ####[facility] LABCLIA [id number] [place] [address] [place] Hyaline casts (Urine sed) [#/Area] 1-3 /LPF Abnormal 0 /LPF [facility] Comment on above: Order Comment: Speci men Type: URINE SPECIMENOrdering Facility: [facility] Address: [address] [place] [address] Performed By: #### 2 4356-8 ####[facility] LABCLIA [id number] [place] [address] [place] Ketones Ql (U) Negative Normal Negative [facility] Comment on above: Order Comment: Speci men Type: URINE SPECIMENOrdering Facility: [facility] Address: [address] [place] [address] Performed By: #### 2 4356-8 ####[facility] LABCLIA [id number] [place] [address] [place] Leukocyte esterase Test strip Ql (U) 1+ Abnormal Negative [facility] Comment on above: Order Comment: Speci men Type: URINE SPECIMENOrdering Facility: [facility] Address: [address] [place] [address] Performed By: #### 2 4356-8 ####[facility] LABCLIA [id number] [place] [address] [place] Nitrite Ql (U) Negative Normal Negative [facility] Comment on above: Order Comment: Speci men Type: URINE SPECIMENOrdering Facility: [facility] Address: [address] [place] [address] Performed By: #### 2 4356-8 ####[facility] LABCLIA [id number] [place] [address] [place] pH (U) 5.5 [pH] Normal <8.5 [facility] Comment on above: Order Comment: Speci men Type: URINE SPECIMENOrdering Facility: [facility] Address: [address] [place] [address] Performed By: #### 2 4356-8 ####[facility] LABCLIA [id number] [place] [address] [place] Protein (U) [Mass/Vol] Trace Abnormal Negative [facility] Comment on above: Order Comment: Speci men Type: URINE SPECIMENOrdering Facility: [facility] Address: [address] [place] [address] Performed By: #### 2 4356-8 ####[facility] LABCLIA [id number] [place] [address] [place] RBC LM.HPF (Urine sed) [#/Area] 11-20 /HPF Abnormal 0-2 /HPF [facility] Comment on above: Order Comment: Speci men Type: URINE SPECIMENOrdering Facility: [facility] Address: [address] [place] [address] Performed By: #### 2 4356-8 ####[facility] LABIA [id number] [place] [address] [place] OF [place] Specific gravity (U) [Rel density] 1.015 Normal 1.005-1.030 [facility] Comment on above: Order Comment: Speci men Type: URINE SPECIMENOrdering Facility: [facility] Address: [address] [place] [address] Performed By: #### 2 4356-8 ####[facility] [id number] [place] [address] [place] Urobilinogen Ql (U) 0.2 EU/dL Normal 0.2-1.0 EU/dL [facility] Comment on above: Order Comment: Speci men Type: URINE SPECIMENOrdering Facility: [facility] Address: [address] [place] [address] Performed By: #### 2 4356-8 ####[facility] [id number] [place] [address] [place] WBC LM.HPF (Urine sed) [#/Area] /[HPF] Abnormal 0-5 /HPF [facility] Comment on above: Order Comment: Speci men Type: URINE SPECIMENOrdering Facility: [facility] Address: [address] [place] [address] Performed By: #### 2 4356-8 ####[facility] [id number] [place] [id number] [place] CNPNon 12-31-2023 CNPN Normal [facility] OXIMETRY WITH AMBULATIONon 1 Marleni Rice [...] to walk any longer. c/o knee pain. [facility] UA DIP, URINE (POC)on 2023 BILIRUBIN UA (POCT) Negative Negative [facility] CLARITY UA (POCT) Clear [facility] COLOR UA (POCT) Dark yellow [facility] GLUCOSE UA (POCT) Negative Negative mg/dL [facility] Hemoglobin Ql (U) Trace-lysed Abnormal Negative [facility] Interpretation and review of laboratory results Abnormal [facility] KETONE UA (POCT) Negative Negative mg/dL [facility] LEUKOCYTES UA (POCT) Negative Negative [facility]) Negative [facility] PH UA (POCT) 5.5 4.5 - 8.0 [facility] Protein Ql (U) Negative Negative mg/dL [facility] SPECIFIC GRAVITY UA (POCT) 1.020 1.005 - 1.030 [facility] UROBILINOGEN UA (POCT) 0.2 Carmen l E.U./dL [facility] Location:[address], [id number] [place] [address] POINT OF CARE [facility] AMYLASE BLDon 01-01-2023 Amylase [Catalytic activity/Vol] 57 U/L 30 - 104 U/L [facility] CBC W Auto Differential pane l (Bld)on 01-01-2023 Basophils (Bld) [#/Vol] 0.04 10*3/uL <0.11 k/uL [facility] Basophils/100 WBC (Bld) 0.6 % [facility] Differential cell count method Nom (Bld) Auto [facility] Eosinophils (Bld) [#/Vol] 0.18 10*3/uL <0.46 k/uL [facility] Eosinophils/100 WBC (Bld) 2.7 % [facility] Erythrocyte distribution width (RBC) [Ratio] 12.3 % 11.5 - 15.0 % [facility] Hematocrit (Bld) [Volume fraction] 35.7 % Low 36.0 - 46.0 % [facility] Hemoglobin (Bld) [Mass/Vol] 10.3 g/dL Low 11.5 - 15.5 g/dL [facility] Immature granulocytes (Bld) [#/Vol] <0.10 k/uL [facility] Immature granulocytes/100 WBC (Bld) 0.1 % [facility] Lymphocytes (Bld) [#/Vol] 0.90 10*3/uL Low 1.00 - 4.00 k/uL [facility] Lymphocytes/100 WBC (Bld) 13.4 % [facility] MCH (RBC) [Entitic mass] 29.0 pg 26.0 - 34.0 pg [facility] MCHC (RBC) [Mass/Vol] 28.9 g/dL Low 30.5 - 36.0 g/dL [facility] MCV (RBC) [Entitic vol] 100.6 fL High 80.0 - 100.0 fL [facility] Monocytes (Bld) [#/Vol] 0.64 10*3/uL <0.87 k/uL [facility] Monocytes/100 WBC (Bld) 9.5 % [facility] Neutrophils (Bld) [#/Vol] 4.95 10*3/uL 1.45 - 7.50 k/uL [facility] Neutrophils/100 WBC (Bld) 73.7 % [facility] Nucleated RBC (Bld) [#/Vol] <0.01 k/uL [facility] Nucleated RBC/100 WBC (Bld) [Ratio] 0.0 /100 WBC [facility] Platelet mean volume (Bld) [Entitic vol] 10.7 fL 9.0 - 12.7 fL [facility] Platelets (Bld) [#/Vol] 261 10*3/uL 150 - 400 k/uL [facility] RBC (Bld) [#/Vol] 3.55 10*6/uL Low 3.90 - 5.2 0 m/uL [facility] WBC (Bld) [#/Vol] 6.72 10*3/uL 3.70 - 11.00 k/uL [facility] Comprehensive metabolic 2000 panelon 01-01-2023 Albumin [Mass/Vol] 3.8 g/dL Low 3.9 - 4.9 g/dL [facility] ALP [Catalytic activity/Vol] 107 U/L 34 - 123 U/L [facility] ALT [Catalytic activity/Vol] 10 U/L 7 - 38 U/L [facility] Anion gap [Moles/Vol] 10 mmol/L 9 - 18 mmol/L [facility] AST [Catalytic activity/Vol] 14 U/L 13 - 35 U/L [facility] Bilirubin [Mass/Vol] 0.6 mg/dL 0.2 - 1 .3 mg/dL [facility] Calcium [Mass/Vol] 9.3 mg/dL 8.5 - 10. 2 mg/dL [facility] Chloride [Moles/Vol] 104 mmol/L 97 - 10 5 mmol/L [facility] CO2 [Moles/Vol] 28 mmol/L 22 - 30 mmol/L [facility] Creatinine [Mass/Vol] 1.33 mg/dL High 0.58 - 0.96 mg/dL [facility] Estimated Glomerular Filtration Rate 45 mL/min/1.73m Low >=60 mL/min/1.73 m [facility] Glucose [Mass/Vol] 86 mg/dL 74 - 99 mg/dL [facility] Potassium [Moles/Vol] 3.8 mmol/L 3.7 - 5.1 mmol/L [facility] Protein [Mass/Vol] 7.9 g/dL 6.3 - 8.0 g/dL [facility] Sodium [Moles/Vol] 142 mmol/L 136 - 144 mmol/L [facility] Urea nitrogen [Mass/Vol] 15 mg/dL 7 - 21 mg/dL [facility] LIPASE BLDon 01-01-2023 Lipase [Catalytic activity/Vol] 23 U/L 16 - 61 U/L [facility] CBC W Auto Differential pane l (Bld)on 11-05-2022 Basophils (Bld) [#/Vol] 0.05 10*3/uL <0.11 k/uL [facility] Basophils/100 WBC (Bld) 0.8 % [facility] Differential cell count method Nom (Bld) Auto [facility] Eosinophils (Bld) [#/Vol] 0.30 10*3/uL <0.46 k/uL [facility] Eosinophils/100 WBC (Bld) 5.1 % [facility] Erythrocyte distribution width (RBC) [Ratio] 11.8 % 11.5 - 15.0 % [facility] Hematocrit (Bld) [Volume fraction] 33.5 % Low 36.0 - 46.0 % [facility] Hemoglobin (Bld) [Mass/Vol] 9.9 g/dL Low 11.5 - 15.5 g/dL [facility] Immature granulocytes (Bld) [#/Vol] <0.10 k/uL [facility] Immature granulocytes/100 WBC (Bld) 0.3 % [facility] Lymphocytes (Bld) [#/Vol] 1.45 10*3/uL 1.00 - 4.00 k/uL [facility] Lymphocytes/100 WBC (Bld) 24.5 % [facility] MCH (RBC) [Entitic mass] 29.2 pg 26.0 - 34.0 pg [facility] MCHC (RBC) [Mass/Vol] 29.6 g/dL Low 30.5 - 36.0 g/dL [facility] MCV (RBC) [Entitic vol] 98.8 fL 80.0 - 100.0 fL [facility] Monocytes (Bld) [#/Vol] 0.61 10*3/uL <0.87 k/uL [facility] Monocytes/100 WBC (Bld) 10.3 % [facility] Neutrophils (Bld) [#/Vol] 3.48 10*3/uL 1.45 - 7.50 k/uL [facility] Neutrophils/100 WBC (Bld) 59.0 % [facility] Nucleated RBC (Bld) [#/Vol] <0.01 k/uL [facility] Nucleated RBC/100 WBC (Bld) [Ratio] 0.0 /100 WBC [facility] Platelet mean volume (Bld) [Entitic vol] 11.2 fL 9.0 - 12.7 fL [facility] Platelets (Bld) [#/Vol] 234 10*3/uL 150 - 400 k/uL [facility] RBC (Bld) [#/Vol] 3.39 10*6/uL Low 3.90 - 5.2 0 m/uL [facility] WBC (Bld) [#/Vol] 5.91 10*3/uL 3.70 - 11.00 k/uL [facility] HbA1c (Bld)on 11-05-2022 Average glucose Estimated from glycated hemoglobin (Bld) [Mass/Vol] 94 mg/dL [facility] HbA1c (Bld) [Mass fraction] 4.9 % 4.3 - 5.6 % [facility] HbA1c (Bld)on 08-30-2022 Average glucose Estimated from glycated hemoglobin (Bld) [Mass/Vol] 88 mg/dL [facility] HbA1c (Bld) [Mass fraction] 4.7 % 4.3 - 5.6 % [facility] Basic metabolic 2000 panelon 08-22-2022 Anion gap [Moles/Vol] 9 mmol/L 9 - 18 mmol/L [facility] Calcium [Mass/Vol] 8.2 mg/dL Low 8.5 - 10. 2 mg/dL [facility] Chloride [Moles/Vol] 116 mmol/L High 97 - 10 5 mmol/L [facility] CO2 [Moles/Vol] 17 mmol/L Low 22 - 30 mmol/L [facility] Creatinine [Mass/Vol] 1.48 mg/dL High 0.58 - 0.96 mg/dL [facility] Estimated Glomerular Filtration Rate 40 mL/min/1.73m Low >=60 mL/min/1.73 m [facility] Glucose [Mass/Vol] 102 mg/dL High 74 - 99 mg/dL [facility] Potassium [Moles/Vol] 3.9 mmol/L 3.7 - 5.1 mmol/L [facility] Sodium [Moles/Vol] 142 mmol/L 136 - 144 mmol/L [facility] Urea nitrogen [Mass/Vol] 18 mg/dL 7 - 21 mg/dL [facility] Absolute lymphocyte countOrd ered By: Dr. Mendoza on 08-19-2022 Lymphocytes Auto (Unsp spec) [#/Vol] 3.96 10*3/uL 0.83-4.51 [facility] Basophil percentageOrdered B y: Dr. Mendoza on 08-19-2022 Basophil percentage Not Reportable [facility] Bilirubin [Mass/Vol] 0.40 mg/dL 0.20-1.00 [facility] Comment on above: For patients on eltr ombopag therapy, use of Dimension [place] TBIL is not recommended. Chloride [Moles/Vol] 124 mmol/L 98-107 [facility] Glucose [Mass/Vol] 86 mg/dL 74-106 [facility] Neutrophils (Bld) [#/Vol] 6.6 10*3/uL 2.0-7.7 [facility] Potassium [Moles/Vol] 2.9 mmol/L 3.5-5.[address] [facility] Protein [Mass/Vol] 5.7 g/dL 6.4-8.2 [facility] Sodium [Moles/Vol] 144 mmol/L 136-145 [facility] WBC (Bld) [#/Vol] 16.5 10*3/uL 4.4-11.0 [facility] Blood band neutrophil count as percentage of total leukocytesOrdered By: Dr. Mendoza on 08-19-2022 Band form neutrophils/100 WBC (Bld) 10 % 0-5 [facility] Blood eosinophils/100 leukoc ytesOrdered By: Dr. Mendoza on 08-19-2022 Eosinophils/100 WBC (Bld) 17 % 0-5 [facility] Blood erythrocytes count (nu mber/volume)Ordered By: Dr. Mendoza on 08-19-2022 RBC (Bld) [#/Vol] 3.84 10*6/uL 4.2-5.4 [facility] Blood hemoglobin measurement (mass/volume)Ordered By: Dr. Mendoza on 08-19-2022 Hemoglobin (Bld) [Mass/Vol] 11.6 g/dL 12.0-15.0 [facility] Blood lymphocytes/100 leukoc ytesOrdered By: Dr. Mendoza on 08-19-2022 Lymphocytes/100 WBC (Bld) 24 % 19-41 [facility] Blood monocytes/100 leukocyt esOrdered By: Dr. Mendoza on 08-19-2022 Monocytes/100 WBC (Bld) 16 % 0-10 [facility] Blood platelet adequacy dete ction by light microscopyOrdered By: Dr. Mendoza on 08-19-2022 Platelets LM Ql (Bld) ADEQUATE ADEQ [facility] Blood platelet mean volumeOr dered By: Dr. Mendoza on 08-19-2022 Platelet mean volume (Bld) [Entitic vol] 10.5 fL 6.2-12.0 [facility] Blood segmented neutrophils/ [address]: [address] Mendoza on 08-19-2022 Segmented neutrophils/100 WBC (Bld) 30 % 47-70 [facility] Determination of erythrocyte mean corpuscular volume (MCV)Ordered By: Dr. Mendoza on 08-19-2022 MCV (RBC) [Entitic vol] 94.8 fL 81-99 [facility] Glucose Glucometer (BldC) [M ass/Vol]Ordered By: Dr. Pizarro on 08-19-2022 Glucose [Mass/Vol] 95 mg/dL 74-106 [facility] Comment on above: MANAGEMENT OF PATIEN T CARE PER NURSING PROTOCOL Hematocrit Auto (Bld) [Volum e fraction]Ordered By: Dr. Mendoza on 08-19-2022 Hematocrit (Bld) [Volume fraction] 36.4 % 37-47 [facility] Laboratory - Chemistry and C hemistry - challengeOrdered By: Dr. Mendoza on 08-19-2022 ALP [Catalytic activity/Vol] 86 U/L 45-117 [facility] ALT [Catalytic activity/Vol] 17 U/L 13-56 [facility] CO2 [Moles/Vol] 15.0 mmol/L 21.0-32.0 [facility] Globulin (S) [Mass/Vol] 3.6 g/dL 2.2-4.2 [facility] Urea nitrogen/Creatinine [Mass ratio] 10.8 mg/mg 10-20 [facility] Laboratory - Hematology and Cell countsOrdered By: Dr. Mendoza on 08-19-2022 Erythrocyte distribution width (RBC) [Entitic vol] 43.8 fL 35.1-43.9 [facility] Erythrocyte distribution width (RBC) [Ratio] 12.6 % 11.6-14.6 [facility] MCH (RBC) [Entitic mass] 30.2 pg 27.0-32.0 [facility] Myelocytes/100 WBC (Bld) 3 % 0-0 [facility] MCHC Auto (RBC) [Mass/Vol]Or dered By: Dr. Mendoza on 08-19-2022 MCHC (RBC) [Mass/Vol] 31.9 g/dL 32-[address] [facility] No Panel InformationOrdered By: Dr. Mendoza on 08-19-2022 Atypical Lymphocytes 1+ % [facility] Estimated Creatinine Clearance Calc 35.23 ml/min [facility] Estimated GFR (MDRD) Amer 40 mL/min >60 [facility] Comment on above: GFR Calc Estimated GFR (MDRD) Non-Af Amer 33 mL/min >60 [facility] Comment on above: Non- GFR Calc Platelets bldOrdered By: Dr. Mendoza on 08-19-2022 Platelets (Bld) [#/Vol] 249 10*3/uL 150-450 [facility] RBC morphologyOrdered By: Dr Abhi Mendoza on 08-19-2022 RBC morphology finding Nom (Bld) NORM C+C NORMAL NORM C&C [facility] Review by pathologistOrdered By: Dr. Mendoza on 08-19-2022 Pathologist review Kevin (Unsp spec) [Interp] Reviewed [facility] Comment on above: Previous reported re sult: Monik owens Edited by: ACACIA on 08/19/22:1301Leukocytosis with Neutrophilic left shift and absolute eosinophilia.Clinical correlation necessary.Ian Sanon M.D. 08/19/22 AMENDED REPORT 08/19/22 1301 PATH REV previously reported as: Monik owens Serum or plasma albumin alicia urement (mass/volume)Ordered By: Dr. Mendoza on 08-19-2022 Albumin [Mass/Vol] 2.1 g/dL 3.2-5.0 [facility] Serum or plasma albumin/glob ulin mass ratioOrdered By: Dr. Mendoza on 08-19-2022 Albumin/Globulin [Mass ratio] 0.6 {ratio} 0.9-2.4 [facility] Serum or plasma calcium alicia urement (mass/volume)Ordered By: Dr. Mendoza on 08-19-2022 Calcium [Mass/Vol] 7.8 mg/dL 8.5-10.1 [facility] Serum or plasma creatinine m easurement (mass/volume)Ordered By: Dr. Mendoza on 08-19-2022 Creatinine [Mass/Vol] 1.67 mg/dL 0.55-1.[address] [facility] Comment on above: The validity of the calculated GFR & GFRAA in patients over 70 years has not been determined. Clinical correlation is essential. Serum or plasma urea nitroge n measurement (mass/volume)Ordered By: Dr. Mendoza on 08-19-2022 Urea nitrogen [Mass/Vol] 18 mg/dL 7-18 [facility] Thin prep Papanicolaou smear with manual screeningOrdered By: Dr. Mendoza on 08-19-2022 Thin prep Papanicolaou smear with manual screening 17 U/L 15-37 [facility] Thin prep Papanicolaou smear with manual screening 5 5-15 [facility] Total cell countOrdered By: Dr. Mendoza on 08-19-2022 Cells counted Molgen (Bld/Tiss) [#] 100 MANUAL DIFF [facility] Basophil percentageOrdered B y: Dr. Mendoza on 08-18-2022 Basophils/100 WBC (Bld) 1.0 % 0-1 [facility] Eosinophils/100 WBC (Bld) 12.5 % 0-5 [facility] Blood lymphocytes/100 leukoc ytesOrdered By: Dr. Mendoza on 08-18-2022 Lymphocytes/100 WBC (Bld) 35.2 % 19-41 [facility] Blood manual differential co mment interpretation (narrative result)Ordered By: Dr. Mendoza on 08-18-2022 Manual differential comment Kevin (Bld) [Interp] SCANNED [facility] Blood monocytes/100 leukocyt esOrdered By: Dr. Mendoza on 08-18-2022 Monocytes/100 WBC (Bld) 20.5 % 0-10 [facility] Laboratory - Hematology and Cell countsOrdered By: Dr. Mendoza on 08-18-2022 Immature granulocytes/100 WBC (Bld) 3.400 % 0.0-0.9 [facility] Comment on above: IG% - Immature Granu locytes (promyelocytes, myelocytes and metamyelocytes) > 1% indicates that a LEFT SHIFT is Present. Nucleated RBC/100 WBC (Bld) [Ratio] 0.2 % 0-5 [facility] No Panel InformationOrdered By: Dr. Mendoza on 08-17-2022 Reactive Lymphocytes 1+ [facility] Basophil percentageOrdered B y: Cally Coleman on 08-16-2022 Basophil percentage 3.9 mg/dL 2.5-4.9 [facility] Culture, urineOrdered By: Dr Abhi Tran on 08-16-2022 Bacteria identified Cx Nom (U) Escherichia coli [facility] Bacteria identified Cx Nom (U) Escherichia coli#2 [facility] Laboratory - Chemistry and C hemistry - challengeOrdered By: Dr. Hamm on 08-16-2022 Lipase [Catalytic activity/Vol] 23 U/L 13-75 [facility] Comment on above: Please note:LIPASE r evised reference range effective 22. New Lipase methodology. Expected to produce lower values than the previous assay method. NEW Reference Range: 13 - 75 U/L Laboratory - Chemistry and C hemistry - challengeOrdered By: Dr. Mendoza on 08-16-2022 Magnesium [Mass/Vol] 2.1 mg/dL 1.6-2.6 [facility] Erythrocyte sedimentation ra teOrdered By: Dr. Mendoza on 08-15-2022 ESR (Bld) [Velocity] 20 mm/h 0-30 [facility] Laboratory - Chemistry and C hemistry - challengeOrdered By: Dr. Mendoza on 08-15-2022 Sodium (U) [Moles/Vol] 6 mmol/L Not Establ. [facility] No Panel InformationOrdered By: Dr. Mendoza on 08-15-2022 Urine Potassium 23.0 mmol/L Not Establ. [facility] Urine Urea Nitrogen 175 mg/dL NO RANGE EST. [facility] No Panel InformationOrdered By: Dr. Perez on 08-15-2022 Thyroid Stimulating Hormone (TSH) 3.01 uIU/mL 0.358-3.74 [facility] Plasma epinephrine measureme nt (mass/volume)Ordered By: Dr. Perez on 08-15-2022 EPINEPHrine (P) [Mass/Vol] <15 pg/mL 0-62 [facility] Plasma norepinephrine measur ement (mass/volume)Ordered By: Dr. Perez on 08-15-2022 Norepinephrine (P) [Mass/Vol] 1779 pg/mL 0-874 [facility] Serum or plasma C reactive p rotein measurement (mass/volume)Ordered By: Dr. Mendoza on 08-15-2022 CRP [Mass/Vol] 67.20 mg/L 0.0-3.0 [facility] Comment on above: C-Reactive Protein ( CRP) provides useful information for thediagnosis, therapy and monitoring of inflammatory processesand associated diseases. For the evaluation of Relative Riskfor Cardiovascular Disease, a High Sensitivity CRP (HSCRP)should be ordered. Serum or plasma cortisol martínez surement (mass/volume)Ordered By: Dr. Perez on 08-15-2022 Cortisol [Mass/Vol] 19.40 ug/dL 3.44-22.45 [facility] Comment on above: Adult (AM) 5.27 - 22 .45 ug/dL Adult (PM) 3.44 - 16.76 ug/dLPlease note revised CORTISOL reference range effective 2019. Serum or plasma dopamine martínez surement (mass/volume)Ordered By: Dr. Perez on 08-15-2022 DOPamine [Mass/Vol] 183 pg/mL 0-48 [facility] Comment on above: Performed at: [address] [id number] Director: Luisa Gonzales MD, Phone: [phone] Serum procalcitonin measurem entOrdered By: Dr. Mendoza on 08-15-2022 Procalcitonin [Mass/Vol] 0.47 ng/mL 0.00-0.09 [facility] Comment on above: A procalcitonin (PCT [...] probe and target amplification methodOrdered By: Dr. Tran on 08-15-2022 Gastrointestinal pathogens panel CHRISTIANO+probe (Stl) [facility] Thin prep Papanicolaou smear with manual screeningOrdered By: Dr. Mendoza on 08-15-2022 Thin prep Papanicolaou smear with manual screening 25 mmol/L Not Establ. [facility] Urine creatinine measurement (mass/volume)Ordered By: Cally Coleman on 08-15-2022 Creatinine (U) [Mass/Vol] 293.00 mg/dL NO RANGE EST. [facility] Urine osmolality measurement Ordered By: Dr. Mendoza on 08-15-2022 Osmolality (U) [Osmolality] 311 mOsm/KG >50 [facility] Comment on above: Normal Urine Referen ce Ranges Random: 50 - 1200 mOsm/kg H20 depending on fluid intake Random: >850 mOsm/kg after 12 hour fluid restriction 24 hour: ~300 - 900 mOsm/kg H2O Urine protein measurement (m ass/volume)Ordered By: Cally Coleman on 08-15-2022 Protein (U) [Mass/Vol] 120.7 mg/dL 0.0-11.8 [facility] Urine protein/creatinine mas s ratioOrdered By: Cally Coleman on 08-15-2022 Protein/Creatinine (U) [Mass ratio] 412 mg/g CRE 0-200 [facility] Absolute lymphocyte countOrd ered By: Dr. Tran on 08-14-2022 Lymphocytes Auto (Unsp spec) [#/Vol] 3.19 10*3/uL 0.83-4.51 [facility] Basophil percentageOrdered B y: Dr. Tran on 08-14-2022 Basophil percentage 0-5 SEEN /hpf 0-5 [facility] Basophils/100 WBC (Bld) 1.3 % 0-1 [facility] Bilirubin [Mass/Vol] 0.40 mg/dL 0.20-1.00 [facility] Comment on above: For patients on eltr ombopag therapy, use of Dimension [place] TBIL is not recommended. Chloride [Moles/Vol] 108 mmol/L 98-107 [facility] Eosinophils/100 WBC (Bld) 4.9 % 0-5 [facility] Glucose [Mass/Vol] 146 mg/dL 74-106 [facility] Comment on above: Fasting Glucose resu lt greater than or equal to 126 mg/dL suggests DIABETES MELLITUS per A.D.A. criteria. Neutrophils (Bld) [#/Vol] 4.4 10*3/uL 2.0-7.7 [facility] Neutrophils/100 WBC (Bld) 43.0 % 47-70 [facility] Potassium [Moles/Vol] 3.4 mmol/L 3.5-5.[address] [facility] Protein [Mass/Vol] 7.2 g/dL 6.4-8.2 [facility] Sodium [Moles/Vol] 137 mmol/L 136-145 [facility] WBC (Bld) [#/Vol] 10.2 10*3/uL 4.4-11.0 [facility] Bilirubin Test strip Ql (U)O rdered By: Dr. Tran on 08-14-2022 Bilirubin Ql (U) 3 mg/dL Negative [facility] Comment on above: COLOR OF URINE MAY A FFECT DIPSTICK RESULTS. Blood erythrocytes count (nu mber/volume)Ordered By: Dr. Tran on 08-14-2022 RBC (Bld) [#/Vol] 5.00 10*6/uL 4.2-5.4 [facility] Blood hemoglobin measurement (mass/volume)Ordered By: Dr. Tran on 08-14-2022 Hemoglobin (Bld) [Mass/Vol] 15.0 g/dL 12.0-15.0 [facility] Blood lymphocytes/100 leukoc ytesOrdered By: Dr. Tran on 08-14-2022 Lymphocytes/100 WBC (Bld) 31.3 % 19-41 [facility] Blood manual differential co mment interpretation (narrative result)Ordered By: Dr. Tran on 08-14-2022 Manual differential comment Kevin (Bld) [Interp] SCANNED [facility] Comment on above: MONOCYTOSIS NOTED Blood monocytes/100 leukocyt esOrdered By: Dr. Tran on 08-14-2022 Monocytes/100 WBC (Bld) 17.5 % 0-10 [facility] Blood platelet mean volumeOr dered By: Dr. Tran on 08-14-2022 Platelet mean volume (Bld) [Entitic vol] 10.9 fL 6.2-12.0 [facility] Clostridium difficile detect ion by polymerase chain reactionOrdered By: Dr. Tran on 08-14-2022 C. difficile DNA CHRISTIANO+probe Ql (Unsp spec) [facility] Determination of erythrocyte mean corpuscular volume (MCV)Ordered By: Dr. Tran on 08-14-2022 MCV (RBC) [Entitic vol] 97.8 fL 81-99 [facility] Direct bilirubinOrdered By: Dr. Tran on 08-14-2022 Bilirubin.direct [Mass/Vol] 0.16 mg/dL 0.00-0.30 [facility] Hematocrit Auto (Bld) [Volum e fraction]Ordered By: Dr. Tran on 08-14-2022 Hematocrit (Bld) [Volume fraction] 48.9 % 37-47 [facility] Ketones Test strip Ql (U)Ord ered By: Dr. Tran on 08-14-2022 Ketones Ql (U) 5 mg/dl Negative [facility] Laboratory - Chemistry and C hemistry - challengeOrdered By: Dr. Tran on 08-14-2022 ALP [Catalytic activity/Vol] 112 U/L 45-117 [facility] ALT [Catalytic activity/Vol] 12 U/L 13-56 [facility] CO2 [Moles/Vol] 16.0 mmol/L 21.0-32.0 [facility] Globulin (S) [Mass/Vol] 4.6 g/dL 2.2-4.2 [facility] Urea nitrogen/Creatinine [Mass ratio] 9.2 mg/mg 10-20 [facility] Laboratory - Hematology and Cell countsOrdered By: Dr. Tran on 08-14-2022 Erythrocyte distribution width (RBC) [Entitic vol] 42.5 fL 35.1-43.9 [facility] Erythrocyte distribution width (RBC) [Ratio] 11.8 % 11.6-14.6 [facility] Immature granulocytes/100 WBC (Bld) 2.000 % 0.0-0.9 [facility] Comment on above: IG% - Immature Granu locytes (promyelocytes, myelocytes and metamyelocytes) > 1% indicates that a LEFT SHIFT is Present. MCH (RBC) [Entitic mass] 30.0 pg 27.0-32.0 [facility] Nucleated RBC/100 WBC (Bld) [Ratio] 0 % 0-5 [facility] MCHC Auto (RBC) [Mass/Vol]Or dered By: Dr. Tran on 08-14-2022 MCHC (RBC) [Mass/Vol] 30.7 g/dL 32-[address] [facility] Mucus LM Ql (Urine sed)Order ed By: Dr. Tran on 08-14-2022 Mucus Ql (Urine sed) 0 SEEN /hpf [facility] Nitrite Test strip Ql (U)Ord ered By: Dr. Tran on 08-14-2022 Nitrite Ql (U) Positive Negative [facility] No Panel InformationOrdered By: Dr. Tran on 08-14-2022 Estimated GFR (MDRD) Amer 20 mL/min >60 [facility] Comment on above: GFR Calc Estimated GFR (MDRD) Non-Af Amer 16 mL/min >60 [facility] Comment on above: Non- GFR Calc Platelets bldOrdered By: Dr. Tran on 08-14-2022 Platelets (Bld) [#/Vol] 414 10*3/uL 150-450 [facility] Protein Test strip Ql (U)Ord ered By: Dr. Tran on 08-14-2022 Protein Ql (U) 100 mg/dl Negative [facility] Serum or plasma albumin alicia urement (mass/volume)Ordered By: Dr. Tran on 08-14-2022 Albumin [Mass/Vol] 2.6 g/dL 3.2-5.0 [facility] Serum or plasma calcium alicia urement (mass/volume)Ordered By: Dr. Tran on 08-14-2022 Calcium [Mass/Vol] 8.5 mg/dL 8.5-10.1 [facility] Serum or plasma creatinine m easurement (mass/volume)Ordered By: Dr. Tran on 08-14-2022 Creatinine [Mass/Vol] 3.06 mg/dL 0.55-1.[address] [facility] Comment on above: The validity of the calculated GFR & GFRAA in patients over 70 years has not been determined. Clinical correlation is essential. Serum or plasma urea nitroge n measurement (mass/volume)Ordered By: Dr. Tran on 08-14-2022 Urea nitrogen [Mass/Vol] 28 mg/dL 7-18 [facility] Squamous epithelial cells de tection in urine sediment by light microscopyOrdered By: Dr. Tran on 08-14-2022 Epithelial cells.squamous LM Ql (Urine sed) 0-5 SEEN /hpf 5-10 [facility] Stool lactoferrin detection by immunoassayOrdered By: Dr. Tran on 08-14-2022 Lactoferrin IA Ql (Stl) [facility] Thin prep Papanicolaou smear with manual screeningOrdered By: Dr. Tran on 08-14-2022 Thin prep Papanicolaou smear with manual screening 10 U/L 15-37 [facility] Thin prep Papanicolaou smear with manual screening 13 5-15 [facility] Urine blood detectionOrdered By: Dr. Tran on 08-14-2022 RBC Ql (U) 10 /ul Negative [facility] RBC Ql (U) 0-5 SEEN /hpf 0-5 [facility] Urine clarityOrdered By: Dr. Tran on 08-14-2022 Clarity (U) Cloudy Clear [facility] Urine color determinationOrd ered By: Dr. Tran on 08-14-2022 Color (U) Yellow Yellow [facility] Urine glucose detectionOrder ed By: Dr. Tran on 08-14-2022 Glucose Ql (U) 50 mg/dl Normal [facility] Urine leukocyte esterase det ection by dipstickOrdered By: Dr. Tran on 08-14-2022 Leukocyte esterase Test strip Ql (U) 25 /ul Negative [facility] Urine pHOrdered By: Dr. Jaycob gutierrez on 08-14-2022 pH (U) 5.0 [pH] 5.0 - 8.0 [facility] Urine sediment bacteria coun t by microscopy (number/high power field)Ordered By: Dr. Tran on 08-14-2022 Bacteria LM.HPF (Urine sed) [#/Area] 2 /[HPF] None Seen [facility] Urine specific gravity measu rementOrdered By: Dr. Tran on 08-14-2022 Specific gravity (U) [Rel density] 1.030 1.002-1.030 [facility] Urobilinogen Auto test strip Ql (U)Ordered By: Dr. Tran on 08-14-2022 Urobilinogen Ql (U) 1 mg/dl Normal [facility] C. DIFFICILE PCRon 3 C. difficile toxin genes CHRISTIANO+probe Ql (Stl) Negative Negative for C. difficile toxin by PCR [facility] CBC W Auto Differential pane l (Bld)on 08-12-2022 Basophils (Bld) [#/Vol] <0.11 k/uL [facility] Basophils/100 WBC (Bld) 0.4 % [facility] Differential cell count method Nom (Bld) Auto [facility] Eosinophils (Bld) [#/Vol] 0.20 10*3/uL <0.46 k/uL [facility] Eosinophils/100 WBC (Bld) 4.5 % [facility] Erythrocyte distribution width (RBC) [Ratio] 11.6 % 11.5 - 15.0 % [facility] Hematocrit (Bld) [Volume fraction] 40.7 % 36.0 - 46.0 % [facility] Hemoglobin (Bld) [Mass/Vol] 12.2 g/dL 11.5 - 15.5 g/dL [facility] Immature granulocytes (Bld) [#/Vol] <0.10 k/uL [facility] Immature granulocytes/100 WBC (Bld) 0.2 % [facility] Lymphocytes (Bld) [#/Vol] 1.07 10*3/uL 1.00 - 4.00 k/uL [facility] Lymphocytes/100 WBC (Bld) 23.9 % [facility] MCH (RBC) [Entitic mass] 29.5 pg 26.0 - 34.0 pg [facility] MCHC (RBC) [Mass/Vol] 30.0 g/dL Low 30.5 - 36.0 g/dL [facility] MCV (RBC) [Entitic vol] 98.5 fL 80.0 - 100.0 fL [facility] Monocytes (Bld) [#/Vol] 0.71 10*3/uL <0.87 k/uL [facility] Monocytes/100 WBC (Bld) 15.8 % [facility] Neutrophils (Bld) [#/Vol] 2.47 10*3/uL 1.45 - 7.50 k/uL [facility] Neutrophils/100 WBC (Bld) 55.2 % [facility] Nucleated RBC (Bld) [#/Vol] <0.01 k/uL [facility] Nucleated RBC/100 WBC (Bld) [Ratio] 0.0 /100 WBC [facility] Platelet mean volume (Bld) [Entitic vol] 11.5 fL 9.0 - 12.7 fL [facility] Platelets (Bld) [#/Vol] 311 10*3/uL 150 - 400 k/uL [facility] RBC (Bld) [#/Vol] 4.13 10*6/uL 3.90 - 5.2 0 m/uL [facility] WBC (Bld) [#/Vol] 4.48 10*3/uL 3.70 - 11.00 k/uL [facility] HBA1C (OUTSIDE)on 02-28-2022 HbA1c (Bld) [Mass fraction] 5.3 % 5.7 [facility] Basophil percentageon 2021 Chloride [Moles/Vol] 102 mmol/L 98-107 [facility] Work Phone: Glucose [Mass/Vol] 86 mg/dL 74-106 [facility] Work Phone: Potassium [Moles/Vol] 4.9 mmol/L 3.5-5.[address] [facility] Work Phone: Sodium [Moles/Vol] 139 mmol/L 136-145 [facility] Work Phone: Glucose Glucometer (dC) [M ass/Vol]on 11-20-2021 Glucose [Mass/Vol] 105 mg/dL 74-106 [facility] Work Phone: Comment on above: MANAGEMENT OF PATIEN T CARE PER NURSING PROTOCOL Laboratory - Chemistry and C hemistry - challengeon 11-20-2021 CO2 [Moles/Vol] 35.0 mmol/L 21.0-32.0 [facility] Work Phone: Urea nitrogen/Creatinine [Mass ratio] 27.1 mg/mg 10-20 [facility] Work Phone: No Panel Informationon 11-20 Estimated Creatinine Clearance Calc 33.67 ml/min [facility] Work Phone: Estimated GFR (MDRD) Amer 37 mL/min >60 [facility] Work Phone: Comment on above: GFR Calc Estimated GFR (MDRD) Non-Af Amer 31 mL/min >60 [facility] Work Phone: Comment on above: Non- GFR Calc Serum or plasma calcium alicia urement (mass/volume)on 11-20-2021 Calcium [Mass/Vol] 9.0 mg/dL 8.5-10.1 [facility] Work Phone: Serum or plasma creatinine m easurement (mass/volume)on 11-20-2021 Creatinine [Mass/Vol] 1.77 mg/dL 0.55-1.[address] [facility] Work Phone: Comment on above: The validity of the calculated GFR & GFRAA in patients over 70 years has not been determined. Clinical correlation is essential. Serum or plasma urea nitroge n measurement (mass/volume)on 11-20-2021 Urea nitrogen [Mass/Vol] 48 mg/dL 7-18 [facility] Work Phone: Thin prep Papanicolaou smear with manual screeningon 11-20-2021 Thin prep Papanicolaou smear with manual screening 2 5-15 [facility] Work Phone: Basophil percentageon 2021 Basophil percentage 4.5 mg/dL 2.5-4.9 [facility] Work Phone: Bilirubin [Mass/Vol] 0.40 mg/dL 0.20-1.00 [facility] Work Phone: Comment on above: For patients on eltr ombopag therapy, use of Dimension [place] TBIL is not recommended. Protein [Mass/Vol] 9.1 g/dL 6.4-8.2 [facility] Work Phone: Laboratory - Chemistry and C hemistry - challengeon 11-19-2021 ALP [Catalytic activity/Vol] 215 U/L 45-117 [facility] Work Phone: ALT [Catalytic activity/Vol] 34 U/L 13-56 [facility] Work Phone: Free T4 [Mass/Vol] 0.75 ng/dL 0.76-1.46 [facility] Work Phone: Globulin (S) [Mass/Vol] 6.2 g/dL 2.2-4.2 [facility] Work Phone: [phone] Magnesium [Mass/Vol] 2.4 mg/dL 1.6-2.6 [facility] Work Phone: No Panel Informationon 11-19 Troponin I High Sensitivity 17 pg/mL 3.0-54.0 [facility] Work Phone: Comment on above: Please Note: New Evelyn t Units and Gender Specific Reference Ranges. For more information see Policy Stat Procedure [place] High Sensitivity Troponin (TNIH) and attachments. Serum or plasma albumin alicia urement (mass/volume)on 11-19-2021 Albumin [Mass/Vol] 2.9 g/dL 3.2-5.0 [facility] Work Phone: Serum or plasma albumin/glob ulin mass ratioon 11-19-2021 Albumin/Globulin [Mass ratio] 0.5 {ratio} 0.9-2.4 [facility] Work Phone: Thin prep Papanicolaou smear with manual screeningon 11-19-2021 Thin prep Papanicolaou smear with manual screening 56 U/L 15-37 [facility] Work Phone: Absolute lymphocyte counton 11-18-2021 Lymphocytes Auto (Unsp spec) [#/Vol] 1.67 10*3/uL 0.83-4.51 [facility] Work Phone: Assessment of wrist artery p atency prior to arterial punctureon 11-18-2021 Arterial patency Wrist artery --pre arterial puncture Positive [facility] Work Phone: Base excesson 11-18-2021 Base excess Calc (BldV) [Moles/Vol] 0 mmol/L -2-2 [facility] Work Phone: Basophil percentageon 2021 Basophil percentage 0-5 SEEN /hpf 0-5 [facility] Work Phone: Basophil percentage 25.7 mmol/L 22- [facility] Work Phone: Basophils/100 WBC (Bld) 93 % 95-99 [facility] Work Phone: Basophil percentage 5.0 mg/dL 2.5-4.9 [facility] Work Phone: Basophils/100 WBC (Bld) 0.4 % 0-1 [facility] Work Phone: Bilirubin [Mass/Vol] 0.50 mg/dL 0.20-1.00 [facility] Work Phone: Comment on above: For patients on eltr ombopag therapy, use of Dimension [place] TBIL is not recommended. Chloride [Moles/Vol] 103 mmol/L 98-107 [facility] Work Phone: Eosinophils/100 WBC (Bld) 0.2 % 0-5 [facility] Work Phone: Glucose [Mass/Vol] 122 mg/dL 74-106 [facility] Work Phone: Comment on above: Fasting Glucose resu lt from 100 to 125 mg/dL suggests IMPAIRED HOMEOSTASIS per A.D.A. criteria. Neutrophils (Bld) [#/Vol] 6.4 10*3/uL 2.0-7.7 [facility] Work Phone: Neutrophils/100 WBC (Bld) 71.2 % 47-70 [facility] Work Phone: Potassium [Moles/Vol] 8.8 mmol/L 3.5-5.[address] [facility] Work Phone: Comment on above: Critical Result(s) C alled at: 20:27:56 11/18/2021 by: Avi Castro to Alyssa Cronin RN (ER). Results read back by same. Protein [Mass/Vol] 9.7 g/dL 6.4-8.2 [facility] Work Phone: Sodium [Moles/Vol] 137 mmol/L 136-145 [facility] Work Phone: WBC (Bld) [#/Vol] 9.0 10*3/uL 4.4-11.0 [facility] Work Phone: Bilirubin Test strip Ql (U)o n 11-18-2021 Bilirubin Ql (U) Negative Negative [facility] Work Phone: Blood erythrocytes count (nu mber/volume)on 11-18-2021 RBC (Bld) [#/Vol] 3.36 10*6/uL 4.2-5.4 [facility] Work Phone: Blood hemoglobin measurement (mass/volume)on 11-18-2021 Hemoglobin (Bld) [Mass/Vol] 9.6 g/dL 12.0-15.0 [facility] Work Phone: Blood lymphocytes/100 leukoc yteson 11-18-2021 Lymphocytes/100 WBC (Bld) 18.5 % 19-41 [facility] Work Phone: Blood monocytes/100 leukocyt eson 11-18-2021 Monocytes/100 WBC (Bld) 9.3 % 0-10 [facility] Work Phone: Blood platelet mean volumeon 11-18-2021 Platelet mean volume (Bld) [Entitic vol] 10.4 fL 6.2-12.0 [facility] Work Phone: CO2 (BldA) [Partial pressure ]on 11-18-2021 CO2 (Bld) [Partial pressure] 49.3 mm[Hg] 35-45 [facility] Work Phone: Determination of erythrocyte mean corpuscular volume (MCV)on 11-18-2021 MCV (RBC) [Entitic vol] 102.1 fL 81-99 [facility] Work Phone: Hematocrit Auto (Bld) [Volum e fraction]on 11-18-2021 Hematocrit (Bld) [Volume fraction] 34.3 % 37-47 [facility] Work Phone: Ketones Test strip Ql (U)on 11-18-2021 Ketones Ql (U) Negative Negative [facility] Work Phone: Laboratory - Chemistry and C hemistry - challengeon 11-18-2021 Sodium (U) [Moles/Vol] 23 mmol/L Not Establ. W [facility] Work Phone: ALP [Catalytic activity/Vol] 234 U/L 45-117 [facility] Work Phone: ALT [Catalytic activity/Vol] 31 U/L 13-56 [facility] Work Phone: CO2 [Moles/Vol] 29.0 mmol/L 21.0-32.0 [facility] Work Phone: Globulin (S) [Mass/Vol] 6.7 g/dL 2.2-4.2 [facility] Work Phone: Magnesium [Mass/Vol] 2.5 mg/dL 1.6-2.6 [facility] Work Phone: Urea nitrogen/Creatinine [Mass ratio] 22.6 mg/mg 10-20 [facility] Work Phone: Laboratory - Hematology and Cell countson 11-18-2021 Erythrocyte distribution width (RBC) [Entitic vol] 59.7 fL 35.1-43.9 [facility] Work Phone: Erythrocyte distribution width (RBC) [Ratio] 16.0 % 11.6-14.6 [facility] Work Phone: Immature granulocytes/100 WBC (Bld) 0.400 % 0.0-0.9 [facility] Work Phone: Comment on above: IG% - Immature Granu locytes (promyelocytes, myelocytes and metamyelocytes) > 1% indicates that a LEFT SHIFT is Present. MCH (RBC) [Entitic mass] 28.6 pg 27.0-32.0 [facility] Work Phone: Nucleated RBC/100 WBC (Bld) [Ratio] 0 % 0-5 [facility] Work Phone: MCHC Auto (RBC) [Mass/Vol]on 11-18-2021 MCHC (RBC) [Mass/Vol] 28.0 g/dL 32-[address] [facility] Work Phone: Mucus LM Ql (Urine sed)on Mucus Ql (Urine sed) 0 SEEN /hpf [facility] Work Phone: Nitrite Test strip Ql (U)on 11-18-2021 Nitrite Ql (U) Negative Negative [facility] Work Phone: No Panel Informationon 11-18 Blood Gas Liter Flow 2.0 /min [facility] Work Phone: Blood Gas Sample Site L Radial [facility] Work Phone: Blood Gas Specimen Type ART [facility] Work Phone: Blood Gas Total CO2 27 mmol/L [facility] Work Phone: Oxygen Delivery Device Cannula [facility] Work Phone: Estimated Creatinine Clearance Calc 23.65 ml/min [facility] Work Phone: Estimated GFR (MDRD) Amer 25 mL/min >60 [facility] Work Phone: Comment on above: GFR Calc Estimated GFR (MDRD) Non-Af Amer 21 mL/min >60 [facility] Work Phone: Comment on above: Non- GFR Calc Thyroid Stimulating Hormone (TSH) 5.59 uIU/mL 0.358-3.74 [facility] Work Phone: Troponin I High Sensitivity 18 pg/mL 3.0-54.0 [facility] Work Phone: Comment on above: Please Note: New Evelyn t Units and Gender Specific Reference Ranges. For more information see Policy Stat Procedure [place] High Sensitivity Troponin (TNIH) and attachments. Oxygen (BldA) [Partial press ure]on 11-18-2021 Oxygen (Bld) [Partial pressure] 71 mmHG 75-100 [facility] Work Phone: Platelets bldon 11-18-2021 Platelets (Bld) [#/Vol] 291 10*3/uL 150-450 [facility] Work Phone: Protein Test strip Ql (U)on 11-18-2021 Protein Ql (U) 30 mg/dl Negative [facility] Work Phone: Serum or plasma albumin alicia urement (mass/volume)on 11-18-2021 Albumin [Mass/Vol] 3.0 g/dL 3.2-5.0 [facility] Work Phone: Serum or plasma albumin/glob ulin mass ratioon 11-18-2021 Albumin/Globulin [Mass ratio] 0.4 {ratio} 0.9-2.4 [facility] Work Phone: Serum or plasma calcium alicia urement (mass/volume)on 11-18-2021 Calcium [Mass/Vol] 9.3 mg/dL 8.5-10.1 [facility] Work Phone: Serum or plasma creatinine m easurement (mass/volume)on 11-18-2021 Creatinine [Mass/Vol] 2.52 mg/dL 0.55-1.[address] [facility] Work Phone: Comment on above: The validity of the calculated GFR & GFRAA in patients over 70 years has not been determined. Clinical correlation is essential. Serum or plasma urea nitroge n measurement (mass/volume)on 11-18-2021 Urea nitrogen [Mass/Vol] 57 mg/dL 7-18 [facility] Work Phone: Squamous epithelial cells de tection in urine sediment by light microscopyon 11-18-2021 Epithelial cells.squamous LM Ql (Urine sed) 0-5 SEEN /hpf 5-10 [facility] Work Phone: Thin prep Papanicolaou smear with manual screeningon 11-18-2021 Thin prep Papanicolaou smear with manual screening 49 U/L 15-37 [facility] Work Phone: Thin prep Papanicolaou smear with manual screening 5 5-15 [facility] Work Phone: Urine blood detectionon 10-26 RBC Ql (U) 150 /ul Negative [facility] Work Phone: RBC Ql (U) 10-25 SEEN /hpf 0-5 [facility] Work Phone: Urine clarityon 11-18-2021 Clarity (U) Clear Clear [facility] Work Phone: Urine color determinationon 11-18-2021 Color (U) Yellow Yellow [facility] Work Phone: Urine creatinine measurement (mass/volume)on 11-18-2021 Creatinine (U) [Mass/Vol] 96.20 mg/dL NO RANGE EST. [facility] Work Phone: Urine glucose detectionon Glucose Ql (U) Normal mg/dl Normal [facility] Work Phone: Urine leukocyte esterase det ection by dipstickon 11-18-2021 Leukocyte esterase Test strip Ql (U) 25 /ul Negative [facility] Work Phone: Urine pHon 11-18-2021 pH (U) 5.0 [pH] 5.0 - 8.0 [facility] Work Phone: Urine sediment bacteria coun t by microscopy (number/high power field)on 11-18-2021 Bacteria LM.HPF (Urine sed) [#/Area] RARE /hpf None Seen [facility] Work Phone: Urine specific gravity measu rementon 11-18-2021 Specific gravity (U) [Rel density] 1.015 1.002-1.030 [facility] Work Phone: Urobilinogen Auto test strip Ql (U)on 11-18-2021 Urobilinogen Ql (U) 4 mg/dl Normal [facility] Work Phone: pH measurementon 11-18-2021 pH (Unsp spec) 7.33 [pH] 7.35-7.45 [facility] Work Phone: Glucose Glucometer (BldC) [M ass/Vol]on 08-16-2021 Glucose [Mass/Vol] 129 mg/dL 74-106 [facility] Work Phone: Comment on above: MANAGEMENT OF PATIEN T CARE PER NURSING PROTOCOL Absolute lymphocyte counton 08-13-2021 Lymphocytes Auto (Unsp spec) [#/Vol] 1.20 10*3/uL 0.83-4.51 [facility] Work Phone: Basophil percentageon 2021 Basophils/100 WBC (Bld) 0.7 % 0-1 [facility] Work Phone: Chloride [Moles/Vol] 97 mmol/L 98-107 [facility] Work Phone: Eosinophils/100 WBC (Bld) 5.8 % 0-5 [facility] Work Phone: Glucose [Mass/Vol] 121 mg/dL 74-106 [facility] Work Phone: Comment on above: Fasting Glucose resu lt from 100 to 125 mg/dL suggests IMPAIRED HOMEOSTASIS per A.D.A. criteria. Neutrophils (Bld) [#/Vol] 4.9 10*3/uL 2.0-7.7 [facility] Work Phone: Neutrophils/100 WBC (Bld) 64.0 % 47-70 [facility] Work Phone: [phone] Potassium [Moles/Vol] 3.9 mmol/L 3.5-5.[address] [facility] Work Phone: Sodium [Moles/Vol] 137 mmol/L 136-145 [facility] Work Phone: [phone] WBC (Bld) [#/Vol] 7.6 10*3/uL 4.4-11.0 [facility] Work Phone: Blood erythrocytes count (nu mber/volume)on 08-13-2021 RBC (Bld) [#/Vol] 3.49 10*6/uL 4.2-5.4 [facility] Work Phone: Blood hemoglobin measurement (mass/volume)on 08-13-2021 Hemoglobin (Bld) [Mass/Vol] 8.3 g/dL 12.0-15.0 [facility] Work Phone: Blood lymphocytes/100 leukoc yteson 08-13-2021 Lymphocytes/100 WBC (Bld) 15.7 % 19-41 [facility] Work Phone: [phone] Blood manual differential co mment interpretation (narrative result)on 08-13-2021 Manual differential comment Kevin (Bld) [Interp] SCANNED [facility] Work Phone: Blood monocytes/100 leukocyt eson 08-13-2021 Monocytes/100 WBC (Bld) 13.4 % 0-10 [facility] Work Phone: Blood platelet mean volumeon 08-13-2021 Platelet mean volume (Bld) [Entitic vol] 10.2 fL 6.2-12.0 [facility] Work Phone: Blood polychromasia detectio n by light microscopyon 08-13-2021 Polychromasia LM Ql (Bld) RARE [facility] Work Phone: Determination of erythrocyte mean corpuscular volume (MCV)on 08-13-2021 MCV (RBC) [Entitic vol] 88.8 fL 81-99 [facility] Work Phone: Hematocrit Auto (Bld) [Volum e fraction]on 08-13-2021 Hematocrit (Bld) [Volume fraction] 31.0 % 37-47 [facility] Work Phone: Laboratory - Chemistry and C hemistry - challengeon 08-13-2021 CO2 [Moles/Vol] 36.0 mmol/L 21.0-32.0 [facility] Work Phone: [phone] Urea nitrogen/Creatinine [Mass ratio] 13.8 mg/mg - [facility] Work Phone: Laboratory - Hematology and Cell countson 08-13-2021 Anisocytosis [facility]l (Bld) [facility] Work [facility]: Erythrocyte distribution width (RBC) [Entitic vol] 71.8 fL 35.1-43.9 [facility] Work Phone: Erythrocyte distribution width (RBC) [Ratio] 22.6 % 11.6-14.6 [facility] Work Phone: Immature granulocytes/100 WBC (Bld) 0.400 % 0.0-0.9 [facility] Work Phone: Comment on above: IG% - Immature Granu locytes (promyelocytes, myelocytes and metamyelocytes) > 1% indicates that a LEFT SHIFT is Present. MCH (RBC) [Entitic mass] 23.8 pg 27.0-32.0 [facility] Work Phone: Nucleated RBC/100 WBC (Bld) [Ratio] 0 % 0-5 [facility] Work Phone: MCHC Auto (RBC) [Mass/Vol]on 08-13-2021 MCHC (RBC) [Mass/Vol] 26.8 g/dL 32-[address] [facility] Work Phone: Macrocytes detectionon 08-13 [facility]) [facility]: No Panel Informationon 08-13 Estimated Creatinine Clearance Calc 91.69 ml/min [facility] Work Phone: Estimated GFR (MDRD) Amer 119 mL/min >60 [facility] Work Phone: Comment on above: GFR Calc Estimated GFR (MDRD) Non-Af Amer 98 mL/min >60 [facility] Work Phone: Comment on above: Non- GFR Calc Platelets bldon 08-13-2021 Platelets (Bld) [#/Vol] 302 10*3/uL 150-450 [facility] Work Phone: Serum or plasma calcium alicia urement (mass/volume)on 08-13-2021 Calcium [Mass/Vol] 9.0 mg/dL 8.5-10.1 [facility] Work Phone: Serum or plasma creatinine m easurement (mass/volume)on 08-13-2021 Creatinine [Mass/Vol] 0.65 mg/dL 0.55-1.[address] [facility] Work Phone: Comment on above: The validity of the calculated GFR & GFRAA in patients over 70 years has not been determined. Clinical correlation is essential. Serum or plasma urea nitroge n measurement (mass/volume)on 08-13-2021 Urea nitrogen [Mass/Vol] 9 mg/dL 7-18 [facility] Work Phone: Thin prep Papanicolaou smear with manual screeningon 08-13-2021 Thin prep Papanicolaou smear with manual screening 1+ [facility] Work Phone: Thin prep Papanicolaou smear with manual screening 4 5-15 [facility] Work Phone: Hypochromatic red blood cell detectionon 08-05-2021 Hypochromia Ql (Bld) 1+ [facility] Work Phone: Serum or plasma ferritin martínez surement (mass/volume)on 08-05-2021 Ferritin [Mass/Vol] 255 ng/mL 8-252 [facility] Work Phone: INR in Blood by Coagulation assayon 08-02-2021 INR Coag (Bld) [Relative time] 1.2 {INR} [facility] Work Phone: Laboratory - Coagulationon 0 08-02-2021 aPTT Coag (Bld) [Time] 33.4 s 24.1-36.2 [facility] Work Phone: PT Coag (PPP) [Time] 15.1 s 11.7-14.9 [facility] Work Phone: Whole blood hemoglobin A1c/t otal hemoglobin ratio (mass fraction)on 08-02-2021 HbA1c (Bld) [Mass fraction] 6.5 % 3.8-5.6 [facility] Work Phone: Comment on above: Normal < 5.7 % Predi abetic 5.7 - 6.4 % Diabetic >or= 6.5 % Please note range changes. Basophil percentageon 2021 Bilirubin [Mass/Vol] 0.70 mg/dL 0.20-1.00 [facility] Work Phone: Comment on above: For patients on eltr ombopag therapy, use of Dimension [place] TBIL is not recommended. Protein [Mass/Vol] 8.8 g/dL 6.4-8.2 [facility] Work Phone: Laboratory - Chemistry and C hemistry - challengeon 08-01-2021 ALP [Catalytic activity/Vol] 189 U/L 45-117 [facility] Work Phone: ALT [Catalytic activity/Vol] 19 U/L 13-56 [facility] Work Phone: Globulin (S) [Mass/Vol] 5.9 g/dL 2.2-4.2 [facility] Work Phone: Serum or plasma albumin alicia urement (mass/volume)on 08-01-2021 Albumin [Mass/Vol] 2.9 g/dL 3.2-5.0 [facility] Work Phone: Serum or plasma albumin/glob ulin mass ratioon 08-01-2021 Albumin/Globulin [Mass ratio] 0.5 {ratio} 0.9-2.4 [facility] Work Phone: Thin prep Papanicolaou smear with manual screeningon 08-01-2021 Thin prep Papanicolaou smear with manual screening 20 U/L 15-37 [facility] Work Phone: Absolute lymphocyte counton 07-31-2021 Lymphocytes Auto (Unsp spec) [#/Vol] 0.99 10*3/uL 0.83-4.51 [facility] Work Phone: Assessment of wrist artery p atency prior to arterial punctureon 07-31-2021 Arterial patency Wrist artery --pre arterial puncture Positive [facility] Work Phone: Base excesson 07-31-2021 Base excess Calc (BldV) [Moles/Vol] 13 mmol/L -2-2 [facility] Work Phone: Basophil percentageon 07-31- 2021 Basophil percentage 38.9 mmol/L 22-26 [facility] Work Phone: Basophils/100 WBC (Bld) 90 % 95-99 [facility] Work Phone: Basophil percentage 0-5 SEEN /hpf 0-5 [facility] Work Phone: Ammonia (P) [Moles/Vol] 37.0 umol/L 11-32 [facility] Work Phone: Basophils/100 WBC (Bld) 0.6 % 0-1 [facility] Work Phone: Bilirubin [Mass/Vol] 0.80 mg/dL 0.20-1.00 [facility] Work Phone: Comment on above: For patients on eltr ombopag therapy, use of Dimension [place] TBIL is not recommended. Chloride [Moles/Vol] 95 mmol/L 98-107 [facility] Work Phone: Eosinophils/100 WBC (Bld) 2.5 % 0-5 [facility] Work Phone: Glucose [Mass/Vol] 98 mg/dL 74-106 [facility] Work Phone: [phone] Neutrophils (Bld) [#/Vol] 5.0 10*3/uL 2.0-7.7 [facility] Work Phone: Neutrophils/100 WBC (Bld) 69.0 % 47-70 [facility] Work Phone: Potassium [Moles/Vol] 3.7 mmol/L 3.5-5.[address] [facility] Work Phone: Protein [Mass/Vol] 9.1 g/dL 6.4-8.2 [facility] Work Phone: Sodium [Moles/Vol] 139 mmol/L 136-145 [facility] Work Phone: WBC (Bld) [#/Vol] 7.2 10*3/uL 4.4-11.0 [facility] Work Phone: Bilirubin Test strip Ql (U)o n 07-31-2021 Bilirubin Ql (U) Negative Negative [facility] Work Phone: Blood erythrocytes count (nu mber/volume)on 07-31-2021 RBC (Bld) [#/Vol] 3.44 10*6/uL 4.2-5.4 [facility] Work Phone: Blood hemoglobin measurement (mass/volume)on 07-31-2021 Hemoglobin (Bld) [Mass/Vol] 7.6 g/dL 12.0-15.0 [facility] Work Phone: Blood lymphocytes/100 leukoc yteson 07-31-2021 Lymphocytes/100 WBC (Bld) 13.8 % 19-41 [facility] Work Phone: Blood monocytes/100 leukocyt eson 07-31-2021 Monocytes/100 WBC (Bld) 14.0 % 0-10 [facility] Work Phone: Blood platelet mean volumeon 07-31-2021 Platelet mean volume (Bld) [Entitic vol] 10.1 fL 6.2-12.0 [facility] Work Phone: CO2 (BldA) [Partial pressure ]on 07-31-2021 CO2 (Bld) [Partial pressure] 70.1 mm[Hg] 35-45 [facility] Work Phone: Determination of erythrocyte mean corpuscular volume (MCV)on 07-31-2021 MCV (RBC) [Entitic vol] 86.6 fL 81-99 [facility] Work Phone: Direct bilirubinon 2 Bilirubin.direct [Mass/Vol] 0.39 mg/dL 0.00-0.30 [facility] Work Phone: Hematocrit Auto (Bld) [Volum e fraction]on 07-31-2021 Hematocrit (Bld) [Volume fraction] 29.8 % 37-47 [facility] Work Phone: Hyaline casts LM.LPF (Urine sed) [#/Area]on 07-31-2021 Hyaline casts (Urine sed) [#/Area] 25 /[LPF] 0-5 [facility] Work Phone: Iron measurement (mass/mass) on 07-31-2021 Iron (Unsp spec) [Mass/Mass] 19 ug/dL 50-170 [facility] Work Phone: Ketones Test strip Ql (U)on 07-31-2021 Ketones Ql (U) Negative Negative [facility] Work Phone: Laboratory - Chemistry and C hemistry - challengeon 07-31-2021 ALP [Catalytic activity/Vol] 206 U/L 45-117 [facility] Work Phone: ALT [Catalytic activity/Vol] 19 U/L 13-56 [facility] Work Phone: CO2 [Moles/Vol] 42.0 mmol/L 21.0-32.0 [facility] Work Phone: Globulin (S) [Mass/Vol] 6.0 g/dL 2.2-4.2 [facility] Work Phone: Urea nitrogen/Creatinine [Mass ratio] 24.6 mg/mg 10-20 [facility] Work Phone: Laboratory - Drug toxicology on 07-31-2021 Amphetamines Ql (U) Negative <1000 ng/mL [facility] Work Phone: Benzodiazepines Ql (U) Negative < 200 ng/mL [facility] Work Phone: Cannabinoids Screen Ql (U) Negative < 50 ng/mL [facility] Work Phone: Cocaine Ql (U) Negative < 300 ng/mL [facility] Work Phone: Opiates Ql (U) Negative < 300 ng/mL [facility] Work Phone: Laboratory - Hematology and Cell countson 07-31-2021 Erythrocyte distribution width (RBC) [Entitic vol] 60.0 fL 35.1-43.9 [facility] Work Phone: Erythrocyte distribution width (RBC) [Ratio] 19.0 % 11.6-14.6 [facility] Work Phone: Immature granulocytes/100 WBC (Bld) 0.100 % 0.0-0.9 [facility] Work Phone: Comment on above: IG% - Immature Granu locytes (promyelocytes, myelocytes and metamyelocytes) > 1% indicates that a LEFT SHIFT is Present. MCH (RBC) [Entitic mass] 22.1 pg 27.0-32.0 [facility] Work Phone: Nucleated RBC/100 WBC (Bld) [Ratio] 0 % 0-5 [facility] Work Phone: MCHC Auto (RBC) [Mass/Vol]on 07-31-2021 MCHC (RBC) [Mass/Vol] 25.5 g/dL 32-[address] [facility] Work Phone: Mucus LM Ql (Urine sed)on Mucus Ql (Urine sed) 0 SEEN /hpf [facility] Work Phone: Nitrite Test strip Ql (U)on 07-31-2021 Nitrite Ql (U) Negative Negative [facility] Work Phone: No Panel Informationon 07-31 Bld Gas Crit Called To/Read Back By Yes [facility] Work Phone: Blood Gas Liter Flow 3.0 /min [facility] Work Phone: Blood Gas Notified Whom tran [facility] Work Phone: Blood Gas Sample Site L Radial [facility] Work Phone: Blood Gas Specimen Type ART [facility] Work Phone: Blood Gas Total CO2 41 mmol/L [facility] Work Phone: Oxygen Delivery Device Cannula Wo [facility] Work Phone: MDMA (Ecstasy) Screen Negative < 500 ng/mL [facility] Work Phone: Urine Barbiturates Screen Negative < 200 ng/mL [facility] Work Phone: Urine Drug Screen Comment [facility] Work Phone: Comment on above: CONFIRMATORY TESTING FOR ALL [...] ng/mL [facility] Work Phone: Estimated Creatinine Clearance Calc 41.63 ml/min [facility] Work Phone: Estimated GFR (MDRD) Amer 50 mL/min >60 [facility] Work Phone: Comment on above: GFR Calc Estimated GFR (MDRD) Non-Af Amer 41 mL/min >60 [facility] Work Phone: Comment on above: Non- GFR Calc Total Iron Binding Capacity 454 ug/dL 250-450 [facility] Work Phone: Troponin I High Sensitivity 22 pg/mL 3.0-54.0 [facility] Work Phone: Comment on above: Please Note: New Evelyn t Units and Gender Specific Reference Ranges. For more information see Policy Stat Procedure [place] High Sensitivity Troponin (TNIH) and attachments. Oxygen (BldA) [Partial press ure]on 07-31-2021 Oxygen (Bld) [Partial pressure] 66 mmHG 75-100 [facility] Work Phone: Platelets bldon 07-31-2021 Platelets (Bld) [#/Vol] 316 10*3/uL 150-450 [facility] Work Phone: Protein Test strip Ql (U)on 07-31-2021 Protein Ql (U) 30 mg/dl Negative [facility] Work Phone: Serum or plasma albumin alicia urement (mass/volume)on 07-31-2021 Albumin [Mass/Vol] 3.1 g/dL 3.2-5.0 [facility] Work Phone: Serum or plasma calcium alicia urement (mass/volume)on 07-31-2021 Calcium [Mass/Vol] 9.1 mg/dL 8.5-10.1 [facility] Work Phone: Serum or plasma creatinine m easurement (mass/volume)on 07-31-2021 Creatinine [Mass/Vol] 1.38 mg/dL 0.55-1.[address] [facility] Work Phone: Comment on above: The validity of the calculated GFR & GFRAA in patients over 70 years has not been determined. Clinical correlation is essential. Serum or plasma iron saturat ion measurement (mass fraction)on 07-31-2021 Iron saturation [Mass fraction] 4.2 % 15.0-55.0 [facility] Work Phone: Serum or plasma urea nitroge n measurement (mass/volume)on 07-31-2021 Urea nitrogen [Mass/Vol] 34 mg/dL 7-18 [facility] Work Phone: Squamous epithelial cells de tection in urine sediment by light microscopyon 07-31-2021 Epithelial cells.squamous LM Ql (Urine sed) 0-5 SEEN /hpf 5-10 [facility] Work Phone: Thin prep Papanicolaou smear with manual screeningon 07-31-2021 Thin prep Papanicolaou smear with manual screening 24 U/L 15-37 [facility] Work Phone: Thin prep Papanicolaou smear with manual screening 2 5-15 [facility] Work Phone: Urine blood detectionon - RBC Ql (U) Negative Negative [facility] Work Phone: RBC Ql (U) 0-5 SEEN /hpf 0-5 [facility] Work Phone: Urine clarityon 07-31-2021 Clarity (U) Clear Clear [facility] Work Phone: Urine color determinationon 07-31-2021 Color (U) Yellow Yellow [facility] Work Phone: Urine glucose detectionon Glucose Ql (U) Normal mg/dl Normal [facility] Work Phone: Urine leukocyte esterase det ection by dipstickon 07-31-2021 Leukocyte esterase Test strip Ql (U) Negative Negative [facility] Work Phone: Urine pHon 07-31-2021 pH (U) 6.0 [pH] 5.0 - 8.0 [facility] Work Phone: Urine phencyclidine (PCP) de tectionon 07-31-2021 Phencyclidine Ql (U) Negative < 25 ng/mL [facility] Work Phone: Urine sediment bacteria coun t by microscopy (number/high power field)on 07-31-2021 Bacteria LM.HPF (Urine sed) [#/Area] RARE /hpf None Seen [facility] Work Phone: Urine specific gravity measu rementon 07-31-2021 Specific gravity (U) [Rel density] 1.015 1.002-1.030 [facility] Work Phone: Urobilinogen Auto test strip Ql (U)on 07-31-2021 Urobilinogen Ql (U) Normal mg/dl Normal [facility] Work Phone: pH measurementon 07-31-2021 pH (Unsp spec) 7.35 [pH] 7.35-7.45 [facility] Work Phone: LABORATORYOrdered By: Cecily Jones [...] 18-89 years. CNOVon 07-17-2021 CNOV Office Visit ([facility]) -- MEGGAN ARITA ([id number]) 1960 F Date Time Provider Department 07/17/21 [...] Visit Diagnosis:Peripheral vascular disease, unspecified (HCC) [I73.9] Order(s): ARTERIAL PVR LOWER [[id number]] Order #: [id number] FUTURE Prescriptions as of 07/17/2021 - magnesium [...] tablet by (more content not included)... Normal [facility] Laboratory - Microbiology an d Antimicrobial susceptibility Bacteria identified Cx Nom (Bld) No growth in 5 days. [facility] Work Phone: No Panel Information [facility] Vital Signs Date Time Vital Sign Value Performing Clinician Ramsey chapman 12-20-2024 10:53-0400 Body height 172.[address] Erica Cannon MD Work Phone: [facility] 12-20-2024 10:53-0400 Body mass index (BMI) [Ratio] 51.7 kg/m2 Dr. Erica Cannon MD Work Phone: [facility] 12-20-2024 10:53-0400 Body weight 154.[address] Erica Cannon MD Work Phone: [facility] 12-20-2024 10:53-0400 Diastolic blood pressure 76 mm[Hg] Dr. Erica Cannon MD Work Phone: [facility] 12-20-2024 10:53-0400 Heart rate 80 /min Dr. Erica Cannon MD Work Phone: [facility] 12-20-2024 10:53-0400 Systolic blood pressure 141 mm[Hg] Dr. Erica Cannno MD Work Phone: [facility] 12-08-2024 10:56-0400 Body mass index (BMI) [Ratio] 51.7 kg/m2 Dr. Erica Cannon MD Work Phone: [facility] 12-08-2024 10:56-0400 Body weight 154.[address] Erica Cannon MD Work Phone: [facility] 12-08-2024 10:56-0400 Diastolic blood pressure 75 mm[Hg] Dr. Erica Cannon MD Work Phone: [facility] 12-08-2024 10:56-0400 Heart rate 76 /min Dr. Erica Cannon MD Work Phone: [facility] 12-08-2024 10:56-0400 Systolic blood pressure 135 mm[Hg] Dr. Erica Cannon MD Work Phone: [facility] 11-10-2024 08:06-0400 Body temperature 98.01 [degF] Treatment Wstr Work Phone: [facility] 11-10-2024 08:06-0400 Diastolic blood pressure 72 mm[Hg] Treatment Wstr Work Phone: [facility] 11-10-2024 08:06-0400 Heart rate 62 /min Treatment [facility]str Work Phone: [facility] 11-10-2024 08:06-0400 Respiratory rate 18 /min Treatment [facility]str Work Phone: [facility] 11-10-2024 08:06-0400 SaO2% (BldA) [Mass fraction] 97 % Treatment [facility] Work Phone: [facility] 11-10-2024 08:06-0400 Systolic blood pressure 139 mm[Hg] Treatment [facility]str Work Phone: [facility] 11-08-2024 11:00-0400 Body temperature 97.5 [degF] Treatment Wstr Work Phone: [facility] 11-08-2024 11:00-0400 Diastolic blood pressure 82 mm[Hg] Treatment Wstr Work Phone: [facility] 11-08-2024 11:00-0400 Heart rate 72 /min Treatment Wstr Work Phone: [facility] 11-08-2024 11:00-0400 SaO2% (BldA) [Mass fraction] 98 % Treatment [facility]str Work Phone: [facility] 11-08-2024 11:00-0400 Systolic blood pressure 148 mm[Hg] Treatment Wstr Work Phone: [facility] 10-29-2024 10:06-0400 Body temperature 98.71 [degF] Rj Masci DO Work Phone: [facility] 10-29-2024 10:06-0400 Diastolic blood pressure 65 mm[Hg] Rj Masci DO Work Phone: [facility] 10-29-2024 10:06-0400 Heart rate 75 /min Rj Masci DO Work Phone: [facility] 10-29-2024 10:06-0400 SaO2% (BldA) [Mass fraction] 95 % Rj Masci DO Work Phone: [facility] 10-29-2024 10:06-0400 Systolic blood pressure 180 mm[Hg] Rj Masci DO Work Phone: [facility] 10-29-2024 08:15-0400 Body temperature 98.1 [degF] Katya Elaine [employer] Work Phone: [facility] 10-29-2024 08:15-0400 Diastolic blood pressure 83 mm[Hg] Katya Elaine [employer] [facility] Work Phone: [facility] 10-29-2024 08:15-0400 Heart rate 82 /min Katya Elaine [employer] [facility] [facility] Work Phone: [facility] 10-29-2024 08:15-0400 Respiratory rate 16 /min Katya Elaine [employer] Work Phone: [facility] 10-29-2024 08:15-0400 SaO2% (BldA) [Mass fraction] 96 % Katya Elaine [employer] [facility] Work Phone: [facility] 10-29-2024 08:15-0400 Systolic blood pressure 149 mm[Hg] Katya Elaine [employer] [facility] Work Phone: [facility] 09-24-2024 11:28-0400 Body mass index (BMI) [Ratio] 53.98 kg/m2 Gavi Ureña Work Phone: [facility] 09-24-2024 [id number] Body temperature 98.91 [degF] Gavi Ureña Work Phone: [facility] 09-24-2024 [id number] Body weight 161.03 kg Gavi Ureña Work Phone: [facility] 09-24-2024 11:28-040 Diastolic blood pressure 84 mm[Hg] Gavi Ureña Work Phone: [facility] 09-24-2024 11:28-040 Heart rate 74 /min Gavi Ureña Work Phone: [facility] 09-24-2024 11:28-040 SaO2% (BldA) [Mass fraction] 100 % Gavi Ureña Work Phone: [facility] 09-24-2024 11:28-040 Systolic blood pressure 139 mm[Hg] Gavi Ureña Work Phone: [facility] 09-21-2024 10:27-0400 Body mass index (BMI) [Ratio] 51.63 kg/m2 Silvestre Susy [employer] [facility] Work Phone: [facility] 09-21-2024 10:27-040 Body weight 158.6 kg Silvestre Susy [employer] [facility] Work Phone: [facility] 09-21-2024 10:27-0400 Diastolic blood pressure 80 mm[Hg] Silvestre Susy [employer] [facility] Work Phone: [facility] 09-21-2024 10:27-0400 Heart rate 72 /min Silvestre Susy [employer] [facility] Work Phone: [facility] 09-21-2024 10:27-0400 Respiratory rate 14 /min Silvestre Susy [employer] [facility] Work Phone: [facility] 09-21-2024 10:27-0400 SaO2% (BldA) [Mass fraction] 99 % Silvestre Susy [employer] [facility] Work Phone: [facility] 09-21-2024 10:27-0400 Systolic blood pressure 142 mm[Hg] Silvestre Susy [employer] [facility] Work Phone: [facility] 09-07-2024 10:38-0400 Diastolic blood pressure 84 mm[Hg] Silvestre Susy [employer] [facility] Work Phone: [facility] 09-07-2024 10:38-0400 Heart rate 68 /min Silvestre Susy [employer] [facility] Work Phone: [facility] 09-07-2024 10:38-0400 Respiratory rate 16 /min Silvestre Susy [employer] [facility] Work Phone: [facility] 09-07-2024 10:38-0400 Systolic blood pressure 160 mm[Hg] Silvestre Susy [employer] [facility] Work Phone: [facility] 08-24-2024 10:54-0400 Body temperature 98.2 [degF] Gavi Ureña Work Phone: [facility] 08-24-2024 10:54-0400 Diastolic blood pressure 84 mm[Hg] Gavi Ureña Work Phone: [facility] 08-24-2024 10:54-0400 Heart rate 72 /min Gavi Ureña Work Phone: [facility] 08-24-2024 10:54-0400 SaO2% (BldA) [Mass fraction] 96 % Gavi Ureña Work Phone: [facility] 08-24-2024 10:54-0400 Systolic blood pressure 182 mm[Hg] Gavi Ureña Work Phone: [facility] 08-16-2024 10:04-0400 Diastolic blood pressure 81 mm[Hg] Silvestre Susy [employer] [facility] Work Phone: [facility] 08-16-2024 10:04-0400 Systolic blood pressure 168 mm[Hg] Silvestre Susy [employer] [facility] Work Phone: [facility] 08-16-2024 10:01-0400 Heart rate 77 /min Silvestre Susy [employer] [facility] Work Phone: [facility] 08-16-2024 10:01-0400 SaO2% (BldA) [Mass fraction] 96 % Silvestre Susy [employer] [facility] Work Phone: [facility] 07-18-2024 11:08-0400 Body height 175.3 cm Zayda Praisler-Wood [employer] [facility] Work Phone: [facility] 07-18-2024 11:08-0400 Body mass index (BMI) [Ratio] 58.63 kg/m2 Zayda Praisler-Wood [employer] [facility] [facility] Work Phone: [facility] 07-18-2024 11:08-0400 Body temperature 98.4 [degF] Zayda Praisler-Wood [employer] [facility] Work Phone: [facility] 07-18-2024 11:08-0400 Body weight 180.08 kg Zayda Praisler-Wood [employer] [facility] Work Phone: [facility] 07-18-2024 11:08-0400 Diastolic blood pressure 70 mm[Hg] Zayda Praisler-Wood [employer] [facility] Work Phone: [facility] 07-18-2024 11:08-0400 Heart rate 76 /min Zayda Praisler-Wood [employer] [facility] Work Phone: [facility] 07-18-2024 11:08-0400 SaO2% (BldA) [Mass fraction] 98 % Zayda Praisler-Wood [employer] [facility] Work Phone: [facility] 07-18-2024 11:08-0400 Systolic blood pressure 120 mm[Hg] Zayda Praisler-Wood [employer] [facility] Work Phone: [facility] 06-23-2024 19:56-0400 Body mass index (BMI) [Ratio] 40.17 kg/m2 Brenda Monaco [employer] [facility] [facility] Work Phone: [facility] 06-23-2024 19:56-0400 Body temperature 97.39 [degF] Brenda Larouere [employer] [facility] Work Phone: [facility] 06-23-2024 19:56-0400 Body weight 123.38 kg Brenda Larouere [employer] [facility] Work Phone: [facility] 06-23-2024 19:56-0400 Diastolic blood pressure 78 mm[Hg] Brenda Larouere [employer] [facility] Work Phone: [facility] 06-23-2024 19:56-0400 Heart rate 86 /min Brenda Larouere [employer] Work Phone: [facility] 06-23-2024 19:56-0400 Respiratory rate 18 /min Brenda Larouere [employer] [facility] Work Phone: [facility] 06-23-2024 19:56-0400 SaO2% (BldA) [Mass fraction] 99 % Brenda Larouere [employer] [facility] Work Phone: [facility] 06-23-2024 19:56-0400 Systolic blood pressure 126 mm[Hg] Brenda Larouere [employer] [facility] Work Phone: [facility] 05-07-2024 09:21-0400 Diastolic blood pressure 82 mm[Hg] Silvestre Susy [employer] [facility] Work Phone: [facility] 05-07-2024 09:21-0400 Heart rate 74 /min Silvestre Susy [employer] [facility] Work Phone: [facility] 05-07-2024 09:21-0400 SaO2% (BldA) [Mass fraction] 96 % Silvestre Susy [employer] [facility] Work Phone: [facility] 05-07-2024 09:21-0400 Systolic blood pressure 144 mm[Hg] Silvestre Susy [employer] [facility] Work Phone: [facility] 11-28-2023 12:50-0400 Diastolic blood pressure 76 mm[Hg] Silvestre Susy [employer] [facility] Work Phone: [facility] 11-28-2023 12:50-0400 Heart rate 76 /min Silvestre Susy [employer] [facility] Work Phone: [facility] 11-28-2023 12:50-0400 SaO2% (BldA) [Mass fraction] 97 % Silvestre Susy [employer] Work Phone: [facility] 11-28-2023 12:50-0400 Systolic blood pressure 128 mm[Hg] Silvestre Susy [employer] [facility] Work Phone: [facility] 10-21-2023 10:58-0400 Diastolic blood pressure 82 mm[Hg] Silvestre Susy [employer] [facility] Work Phone: [facility] 10-21-2023 10:58-0400 Systolic blood pressure 138 mm[Hg] Silvestre Susy [employer] [facility] Work Phone: [facility] 10-21-2023 10:50-0400 Heart rate 75 /min Silvestre Susy [employer] [facility] Work Phone: [facility] 10-21-2023 10:50-0400 SaO2% (BldA) [Mass fraction] 96 % Silvestre Susy [employer] [facility] Work Phone: [facility] 10-08-2023 11:21-0400 Body height 175.3 cm Jame Castañeda MD Work Phone: [facility] 10-08-2023 11:21-0400 Body mass index (BMI) [Ratio] 48.73 kg/m2 Jame Castañeda MD Work Phone: [facility] 10-08-2023 11:21-0400 Body weight 149.69 kg Jame Castañeda MD Work Phone: [facility] 10-08-2023 11:21-0400 Diastolic blood pressure 72 mm[Hg] Jame Castañeda MD Work Phone: [facility] 10-08-2023 11:21-0400 Systolic blood pressure 124 mm[Hg] Jame Castañeda MD Work Phone: [facility] 08-27-2023 13:26-0400 Diastolic blood pressure 78 mm[Hg] Silvestre Susy [employer] Work Phone: [facility] 08-27-2023 13:26-0400 Heart rate 80 /min Silvestre Susy [employer] Work Phone: [facility] 08-27-2023 13:26-0400 Respiratory rate 20 /min Silvestre Susy [employer] Work Phone: [facility] 08-27-2023 13:26-0400 Systolic blood pressure 150 mm[Hg] Silvestre Susy [employer] Work Phone: [facility] 08-04-2023 13:17-0400 Body temperature 97.5 [degF] Fernanda Bryant APRN.[facility] Work Phone: [facility] 08-04-2023 13:17-0400 Diastolic blood pressure 68 mm[Hg] Fernanda Bryant APRN.[facility] Work Phone: [facility] 08-04-2023 13:17-0400 Heart rate 79 /min Fernanda Bryant APRN.[facility] Work Phone: [facility] 08-04-2023 13:17-0400 Respiratory rate 20 /min Fernanda Bryant APRN.[facility] Work Phone: [facility] 08-04-2023 13:17-0400 SaO2% (BldA) [Mass fraction] 96 % Fernanda Bryant APRN.[facility] Work Phone: [facility] 08-04-2023 13:17-0400 Systolic blood pressure 144 mm[Hg] Fernanda Bryant APRN.[facility] Work Phone: [facility] 01-01-2023 10:30-0500 Diastolic blood pressure 86 mm[Hg] Silvestre Susy [employer] Work Phone: [facility] 01-01-2023 10:30-0500 Systolic blood pressure 160 mm[Hg] Silvestre Susy [employer] Work Phone: [facility] 01-01-2023 10:28-0500 Heart rate 81 /min Silvestre Susy [employer] Work Phone: [facility] 01-01-2023 10:28-0500 SaO2% (BldA) [Mass fraction] 96 % Silvestre Susy [employer] Work Phone: [facility] 11-05-2022 11:37-0400 Diastolic blood pressure 86 mm[Hg] Silvestre Susy [employer] Work Phone: [facility] 11-05-2022 11:37-0400 Systolic blood pressure 148 mm[Hg] Silvestre Susy [employer] Work Phone: [facility] 11-05-2022 11:35-0400 Heart rate 74 /min Silvestre Susy [employer] Work Phone: [facility] 11-05-2022 11:35-0400 SaO2% (BldA) [Mass fraction] 97 % Silvestre Susy [employer] Work Phone: [facility] 08-21-2022 16:34-0400 Body temperature 96.3 [degF] Erica Cannon MD Work Phone: [facility] 08-21-2022 16:34-0400 Body weight 149.69 kg Erica Cannon MD Work Phone: [facility] 08-21-2022 16:34-0400 Diastolic blood pressure 82 mm[Hg] Erica Cannon MD Work Phone: [facility] 08-21-2022 16:34-0400 Heart rate 77 /min Erica Cannon MD Work Phone: [facility] 08-21-2022 16:34-0400 Respiratory rate 18 /min Erica Cannon MD Work Phone: [facility] 08-21-2022 16:34-0400 SaO2% (BldA) [Mass fraction] 100 % Erica Cannon MD Work Phone: [facility] 08-21-2022 16:34-0400 Systolic blood pressure 144 mm[Hg] Erica Cannon MD Work Phone: [facility] 08-19-2022 14:15-0400 Body temperature 98.6 [degF] Dr. Erica Cannon Work Phone: [facility] 08-19-2022 14:15-0400 Diastolic blood pressure 65 mm[Hg] Dr. Erica Cannon Work Phone: [facility] 08-19-2022 14:15-0400 Heart rate 80 /min Dr. Erica Cannon Work Phone: [facility] 08-19-2022 14:15-0400 Respiratory rate 18 /min Dr. Erica Cannon Work Phone: [facility] 08-19-2022 14:15-0400 SaO2% (BldA) [Mass fraction] 98 % Dr. Erica Cannon Work Phone: [facility] 08-19-2022 14:15-0400 Systolic blood pressure 151 mm[Hg] Dr. Erica Cannon Work Phone: [facility] 08-16-2022 13:31-0400 Inhaled oxygen flow rate 1.5 L/min Dr. Erica Cannon Work Phone: [facility] 08-15-2022 11:02-0400 Body height 172.[address] Erica Cannon Work Phone: [facility] 08-15-2022 11:02-0400 Body weight 151.[address] Erica Cannon Work Phone: [facility] 08-15-2022 07:16-0400 Inhaled oxygen concentration 21 % Dr. Erica Cannon Work Phone: [facility] 08-14-2022 22:17-0400 Body mass index (BMI) [Ratio] 50.8 kg/m2 Dr. Erica Cannon Work Phone: [facility] 08-14-2022 22:04-0400 Body temperature 97.6 [degF] [facility] 08-14-2022 22:04-0400 Diastolic blood pressure 52 mm[Hg] [facility] 08-14-2022 22:04-0400 Heart rate 76 /min [facility] 08-14-2022 22:04-0400 Respiratory rate 21 /min [facility] 08-14-2022 22:04-0400 SaO2% (BldA) [Mass fraction] 95 % [facility] 08-14-2022 22:04-0400 Systolic blood pressure 115 mm[Hg] [facility] 08-14-2022 20:44-0400 Body mass index (BMI) [Ratio] 47.9 kg/m2 [facility] 08-14-2022 20:44-0400 Body weight 143 kg [facility] 08-14-2022 17:59-0400 Body height 172.72 cm [facility] 08-12-2022 14:45-0400 Body weight 153.77 kg Katya Older [employer] Work Phone: [facility] 08-12-2022 14:45-0400 Diastolic blood pressure 83 mm[Hg] Katya Older [employer] Work Phone: [facility] 08-12-2022 14:45-0400 Heart rate 87 /min Katya Older [employer] Work Phone: [facility] 08-12-2022 14:45-0400 Respiratory rate 16 /min Katya Older [employer] Work Phone: [facility] 08-12-2022 14:45-0400 Systolic blood pressure 136 mm[Hg] Katya Older [employer] Work Phone: [facility] 08-07-2022 11:08-0400 Body height 172.7 cm Pacc 1 Work Phone: [facility] 08-07-2022 11:08-0400 Body temperature 97.3 [degF] Pacc 1 Work Phone: [facility] 08-07-2022 11:08-0400 Body weight 157.4 kg Pacc 1 Work Phone: [facility] 08-07-2022 11:08-0400 Diastolic blood pressure 68 mm[Hg] Pacc 1 Work Phone: [facility] 08-07-2022 11:08-0400 Heart rate 66 /min Pacc 1 Work Phone: [facility] 08-07-2022 11:08-0400 Respiratory rate 16 /min Pacc 1 Work Phone: [facility] 08-07-2022 11:08-0400 SaO2% (BldA) [Mass fraction] 96 % Pacc 1 Work Phone: [facility] 08-07-2022 11:08-0400 Systolic blood pressure 108 mm[Hg] Pacc 1 Work Phone: [facility] 11-29-2021 09:33-0400 Diastolic blood pressure 63 mm[Hg] Dr. Erica Cannon Work Phone: [facility] Work Phone: 11-29-2021 09:33-0400 Systolic blood pressure 144 mm[Hg] Dr. Erica Cannon Work Phone: [facility] Work Phone: 11-29-2021 07:10-0400 Body height 172.[address] Erica Cannon Work Phone: [facility] Work Phone: 11-29-2021 07:10-0400 Body mass index (BMI) [Ratio] 67.8 kg/m2 Dr. Erica Cannon Work Phone: [facility] Work Phone: 11-29-2021 07:10-0400 Body temperature 98.1 [degF] Dr. Erica Cannon Work Phone: [facility] Work Phone: 11-29-2021 07:10-0400 Body weight 202.[address] Erica Cannon Work Phone: [facility] Work Phone: 11-29-2021 07:10-0400 Heart rate 81 /min Dr. Erica Cannon Work Phone: [facility] Work Phone: 11-29-2021 07:10-0400 Respiratory rate 18 /min Dr. Erica Cannon Work Phone: [facility] Work Phone: 11-29-2021 07:10-0400 SaO2% (BldA) [Mass fraction] 97 % Dr. Erica Cannon Work Phone: [facility] Work Phone: 11-20-2021 09:11-0400 Body temperature 97.9 [degF] Dr. Erica Cannon Work Phone: [facility] Work Phone: 11-20-2021 09:11-0400 Diastolic blood pressure 68 mm[Hg] Dr. Erica Cannon Work Phone: [facility] Work Phone: 11-20-2021 09:11-0400 Heart rate 72 /min Dr. Erica Cannon Work Phone: [facility] Work Phone: 11-20-2021 09:11-0400 Inhaled oxygen flow rate 2 L/min Dr. Erica Cannon Work Phone: [facility] Work Phone: 11-20-2021 09:11-0400 Respiratory rate 16 /min Dr. Erica Cannon Work Phone: [facility] Work Phone: 11-20-2021 09:11-0400 SaO2% (BldA) [Mass fraction] 94 % Dr. Erica Cannon Work Phone: [facility] Work Phone: 11-20-2021 09:11-0400 Systolic blood pressure 139 mm[Hg] Dr. Erica Cannon Work Phone: [facility] Work Phone: 11-20-2021 05:07-0400 Body weight 205.[address] Erica Cannon Work Phone: [facility] Work Phone: 11-20-2021 04:19-0400 Inhaled oxygen concentration 30 % Dr. Erica Cannon Work Phone: [facility] Work Phone: 11-19-2021 09:36-0400 Body height 172.[address] Erica Cannon Work Phone: [facility] Work Phone: 11-18-2021 22:20-0400 Body mass index (BMI) [Ratio] 67.7 kg/m2 Dr. Erica Cannon Work Phone: [facility] Work Phone: 11-18-2021 20:48-0400 Diastolic blood pressure 85 mm[Hg] Dr. Erica Cannon Work Phone: [facility] Work Phone: 11-18-2021 20:48-0400 Heart rate 106 /min Dr. Erica Cannon Work Phone: [facility] Work Phone: 11-18-2021 20:48-0400 Inhaled oxygen flow rate 2 L/min Dr. Erica Cannon Work Phone: [facility] Work Phone: 11-18-2021 20:48-0400 Respiratory rate 25 /min Dr. Erica Cannon Work Phone: [facility] Work Phone: 11-18-2021 20:48-0400 SaO2% (BldA) [Mass fraction] 93 % Dr. Erica Cannon Work Phone: [facility] Work Phone: 11-18-2021 20:48-0400 Systolic blood pressure 134 mm[Hg] Dr. Erica Cannon Work Phone: [facility] Work Phone: 11-18-2021 20:33-0400 Body temperature 98.2 [degF] Dr. Erica Cannon Work Phone: [facility] Work Phone: 11-18-2021 19:11-0400 Body height 172.[address] Erica Cannon Work Phone: [facility] Work Phone: 11-18-2021 19:11-0400 Body mass index (BMI) [Ratio] 67.1 kg/m2 Dr. Erica Cannon Work Phone: [facility] Work Phone: 11-18-2021 19:11-0400 Body weight 200.[address] Erica Cannon Work Phone: [facility] Work Phone: 11-13-2021 11:31-0400 Body temperature 98.7 [degF] Dr. Erica Cannon Work Phone: [facility] Work Phone: 11-13-2021 11:31-0400 Diastolic blood pressure 70 mm[Hg] Dr. Erica Cannon Work Phone: [facility] Work Phone: 11-13-2021 11:31-0400 Heart rate 76 /min Dr. Erica Cannon Work Phone: [facility] Work Phone: 11-13-2021 11:31-0400 Respiratory rate 16 /min Dr. Erica Cannon Work Phone: [facility] Work Phone: 11-13-2021 11:31-0400 SaO2% (BldA) [Mass fraction] 98 % Dr. Erica Cannon Work Phone: [facility] Work Phone: 11-13-2021 11:31-0400 Systolic blood pressure 168 mm[Hg] Dr. Erica Cannon Work Phone: [facility] Work Phone: 11-13-2021 11:29-0400 Body mass index (BMI) [Ratio] 67.6 kg/m2 Dr. Erica Cannon Work Phone: [facility] Work Phone: 11-13-2021 11:29-0400 Body weight 201.[address] Erica Cannon Work Phone: [facility] Work Phone: 08-16-2021 16:11-0400 Heart rate 84 /min Dr. Erica Cannon Work Phone: [facility] Work Phone: 08-16-2021 16:11-0400 Respiratory rate 16 /min Dr. Erica Cannon Work Phone: [facility] Work Phone: 08-16-2021 15:04-0400 Inhaled oxygen flow rate 2 L/min Dr. Erica Cannon Work Phone: [facility] Work Phone: 08-16-2021 14:55-0400 Body temperature 97.9 [degF] Dr. Erica Cannon Work Phone: [facility] Work Phone: 08-16-2021 14:55-0400 Diastolic blood pressure 91 mm[Hg] Dr. Erica Cannon Work Phone: [facility] Work Phone: 08-16-2021 14:55-0400 SaO2% (BldA) [Mass fraction] 96 % Dr. Erica Cannon Work Phone: [facility] Work Phone: 08-16-2021 14:55-0400 Systolic blood pressure 139 mm[Hg] Dr. Erica Cannon Work Phone: [facility] Work Phone: 08-16-2021 03:16-0400 Inhaled oxygen concentration 28 % Dr. Erica Cannon Work Phone: [facility] Work Phone: 08-12-2021 11:54-0400 Body height 172.[address] Erica Cannon Work Phone: [facility] Work Phone: 08-12-2021 11:54-0400 Body weight [address] Erica Cannon Work Phone: [facility] Work Phone: 08-02-2021 06:31-0400 Body mass index (BMI) [Ratio] 72.1 kg/m2 Dr. Erica Cannon Work Phone: [facility] Work Phone: 07-31-2021 17:06-0400 Body temperature 97.5 [degF] [facility] Work Phone: 07-31-2021 17:06-0400 Diastolic blood pressure 63 mm[Hg] [facility] Work Phone: 07-31-2021 17:06-0400 Heart rate 73 /min [facility] Work Phone: 07-31-2021 17:06-0400 Respiratory rate 23 /min [facility] Work Phone: 07-31-2021 17:06-0400 SaO2% (BldA) [Mass fraction] 97 % [facility] Work Phone: 07-31-2021 17:06-0400 Systolic blood pressure 105 mm[Hg] [facility] Work Phone: 07-31-2021 13:31-0400 Body height 170.18 cm [facility] Work Phone: 07-31-2021 13:31-0400 Body mass index (BMI) [Ratio] 70.4 kg/m2 [facility] Work Phone: 07-31-2021 [id number] Body weight 204.11 kg [facility] Work Phone: 07-29-2021 15:14-0400 Body temperature 97.52 [degF] PRISCILA QUEVEDO MD [facility] 07-29-2021 15:14-0400 Diastolic blood pressure 80 mm[Hg] PRISCILA QUEVEDO MD [facility] 07-29-2021 15:14-0400 Heart rate 79 /min PRISCILA QUEVEDO MD [facility] 07-29-2021 15:14-0400 Respiratory rate 18 /min PRISCILA QUEVEDO MD [facility] 07-29-2021 15:14-0400 Systolic blood pressure 138 mm[Hg] PRISCILA QUEVEDO MD [facility] Encounters Encounter Date Encounter Type Care Provider Facility Start: 01-17-2025 ambulatory Erica Lorenzo Cannon Facilit y:[facility] Start: 12-28-2024 ambulatory Erica D Talampas Facilit y:[facility] Start: 12-24-2024 End: 12-24-2024 ambulatory Lewis Nguyen Facility:[facility] Start: 12-20-2024 End: 12-20-2024 ambulatory Erica D Talampas Facility:[facility] Start: 12-18-2024 ambulatory Erica D Talampas Facilit y:[facility] Start: 12-08-2024 End: 12-08-[address] Jennifer Otto MD -[facility] Work Phone: Start: 12-08-2024 End: 12-08-[address] Erica Cannon MD Work Phone: -[facility] Start: 12-03-2024 End: 12-03-2024 ambulatory RJ A MASCI Facility:[facility] Start: 12-03-2024 End: 12-03-2024 ambulatory RJ A MASCI Facility:[facility] Start: 11-29-2024 End: 11-29-2024 ambulatory ERICA D SINDIAMPAS Facility:[facility] Start: 11-25-2024 End: 11-25-2024 ambulatory LYDIA NORTH Facility:[facility] Start: 11-17-2024 End: 11-17-2024 ambulatory RJ A MASCI Facility:[facility] Start: 11-15-2024 End: 11-15-2024 ambulatory RJ A MASCI Facility:[facility] Start: 11-12-2024 End: 11-12-2024 ambulatory RJ A MASCI Facility:[facility] Start: 11-11-2024 End: 11-11-2024 ambulatory RJ A MASCI Facility:[facility] Start: 11-10-2024 End: 11-10-2024 ambulatory Treatment Rm 15 Al[facility] Work Phone: Hematology/Oncology Comment on above: Iron malabsorption ( HCC) (Primary Dx); Anemia associated with stage 3 chronic renal failure (HCC) Start: 11-08-2024 End: 11-08-2024 ambulatory Treatment Rm 15 Alcides [facility] Work Phone: Hematology/Oncology Comment on above: [...] Patient encounter procedure Dr. Sam Goodson DO -[facility] Work Phone: Start: 11-01-2024 End: 11-01-[address] 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); Anemia, unspecified type Start: 10-26-2024 End: 10-27-2024 Refill Erica Cannon MD Work Phone: [facility] Comment on above: Refill Request Start: 10-08-2024 End: 10-09-2024 Refill Erica Cannon MD Work Phone: [facility] [place] Comment on above: Refill Request Start: 09-30-2024 End: 09-30-2024 ambulatory TOM BOLAÑOS Facility:[facility] Start: 09-24-2024 End: 09-24-2024 Patient encounter procedure Gavi Ureña Work Phone: Hematology/Oncology Start: 09-24-2024 End: 09-24-2024 ambulatory Gavi Ureña Work Phone: Hematology/Oncology Comment on above: 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); Sensory neuronopathy; Low iron; Anemia due to folic acid deficiency, unspecified deficiency type Start: 09-21-2024 End: 09-28-2024 Telephone encounter Erica Cannon MD Work Phone: [facility] Comment on above: Medication Problem ( victoza) Start: 09-21-2024 End: 09-21-2024 ambulatory SILVESTRE JAIN Facility:[facility] Start: 09-21-2024 End: 09-21-2024 Patient encounter procedure Silvestre Jain [employer] Work Phone: [facility] [place] Comment on above: Abdominal pain, left upper quadrant (Primary Dx); Left sided abdominal pain; Diarrhea, unspecified type; Nausea without vomiting; Type 2 diabetes (HCC); Concern about memory Start: 09-21-2024 End: 09-21-2024 ambulatory SILVESTRE SUSY Facility:[facility] Start: 09-20-2024 End: 09-20-2024 ambulatory Erica Cannon MD Work Phone: [facility] [place] Comment on above: Abdominal Pain Start: 09-14-2024 End: 10-15-2024 ambulatory Erica Cannon MD Work Phone: [facility] Start: 09-08-2024 End: 09-13-2024 Telephone encounter Silvestre Jain [employer] Work Phone: [facility] Comment on above: Orders Start: 09-07-2024 End: 09-09-2024 Telephone encounter Erica Cannon MD Work Phone: [facility] Comment on above: Insurance Authorizat ion (victoza); Medication Problem Start: 09-07-2024 End: 09-07-2024 Patient encounter procedure Silvestre Jain [employer] Work Phone: [facility] Comment on above: Type 2 diabetes (HCC ) (Primary Dx); Impaired mobility and activities of daily living; Class 3 severe obesity due to excess calories with body mass index (BMI) of 50.0 to 59.9 in adult, unspecified whether serious comorbidity present (HCC); Iron deficiency anemia, unspecified iron deficiency anemia type; Primary hypertension Start: 09-07-2024 End: 09-07-2024 ambulatory SILVESTRE JAIN Facility:[facility] Start: 09-03-2024 End: 10-08-2024 Refill Erica Cannon MD Work Phone: [facility] Comment on above: Refill Request Start: 08-30-2024 End: 08-31-2024 Refill Erica Cannon MD Work Phone: [facility] Comment on above: Refill Request Insurance Authorizat ion Start: 08-24-2024 End: 08-24-2024 ambulatory GAVI UREÑA Facility:[facility] Start: 08-24-2024 End: 08-24-2024 ambulatory Gavi Ureña Work Phone: Hematology/Oncology Comment on above: Anemia, unspecified type (Primary Dx); Iron deficiency anemia, unspecified iron deficiency anemia type Start: 08-24-2024 End: 08-24-2024 Patient encounter procedure Gavi Ureña Work Phone: Hematology/Oncology Start: 08-18-2024 End: 08-18-2024 Telephone encounter Neetu Holley MD Work Phone: Hematology/Oncology Comment on above: New Patient Start: 08-17-2024 End: 08-18-2024 Follow-up encounter Silvestre Jain APRN.[facility] Work Phone: [facility] Start: 08-16-2024 End: 08-16-2024 ambulatory SILVESTRE JAIN Facility:[facility] Start: 08-16-2024 End: 08-16-2024 Patient encounter procedure Silvestre Jain [employer] Work Phone: [facility] [place] Comment on above: Other fatigue (Prima ry [...] drug monitoring Start: 08-16-2024 End: 08-16-2024 ambulatory SILVESTRE JAIN Facility:[facility] Start: 07-27-2024 End: 07-28-2024 Telephone encounter Silvestre Jain [employer] Work Phone: [facility] Comment on above: Sphincter Problems Start: 07-26-2024 End: 07-26-2024 Telephone encounter Erica Cannon MD Work Phone: [facility] Comment on above: Orders Start: 07-19-2024 End: 07-19-2024 Follow-up encounter Gregoria Patton [employer] Work Phone: [facility] Comment on above: Results Start: 07-18-2024 End: 07-18-2024 Patient encounter procedure Zayda Jackson APRN.[facility] Work Phone: [facility] Comment on above: Dysuria (Primary Dx) ; Urinary tract infection with hematuria, site unspecified Start: 07-18-2024 End: 07-18-2024 ambulatory ZAYDA JACKSON Facility:[facility] Start: 07-16-2024 End: 07-16-[address] Raysa Knox MD -[facility] Work Phone: Start: 07-16-2024 End: 07-21-2024 Refill Erica Cannon MD Work Phone: [facility] Comment on above: Refill Request Start: 07-06-2024 End: 07-06-2024 Refill Erica Cannon MD Work Phone: [facility] Comment on above: Refill Request Start: 06-25-2024 End: 06-25-2024 Follow-up encounter Freeman Lundy APRN.[facility] Work Phone: [facility] Start: 06-23-2024 End: 06-23-2024 ambulatory BRENDA MONACO Facility:[facility] Start: 06-23-2024 End: 06-23-2024 Patient encounter procedure Brenda Monaco SOURAV.[facility] Work Phone: [facility] Comment on above: Acute cystitis with hematuria (Primary Dx); Urinary frequency Start: 06-23-2024 End: 06-23-2024 Telephone encounter Erica Cannon MD Work Phone: [facility] [place] Comment on above: Urinary Problem (pro bable UTI) Start: 06-22-2024 End: 06-22-2024 Patient encounter procedure Tom Bolaños Work Phone: Podiatry Comment on above: Onychomycosis (Prima ry Dx); Pain in toe of left foot; Pain in toe of right foot; Diabetic polyneuropathy associated with type 2 diabetes mellitus (HCC) Start: 06-22-2024 End: 06-22-2024 [facility] Start: 06-08-2024 End: 06-08-2024 Refill Erica Cannon MD Work Phone: [facility] Comment on above: Refill Request Start: 06-07-2024 End: 06-08-2024 Telephone encounter Silvestre Jain APRN.[facility] Work Phone: [facility] [place] Comment on above: OV notes Start: 06-03-2024 End: 06-04-2024 Telephone encounter Erica Cannon MD Work Phone: [facility] [place] Comment on above: DME Request Start: 05-31-2024 End: 05-31-2024 Refill Erica Cannon MD Work Phone: [facility] [place] Comment on above: Refill Request Start: 05-22-2024 End: 05-24-2024 Telephone encounter Erica Cannon MD Work Phone: [facility] [place] Comment on above: Orders Start: 05-11-2024 End: 05-11-2024 Refill Erica Cannon MD Work Phone: [facility] [place] Comment on above: Refill Request Start: 05-07-2024 End: 05-07-2024 ambulatory SILVESTRE JAIN Facility:[facility] Start: 05-07-2024 End: 05-07-2024 Patient encounter procedure Silvestre Jain OLIVE GROWER.[facility] Work Phone: [facility] [place] Comment on above: Chronic pain of righ t knee (Primary Dx); Constipation, unspecified constipation type; Pelvic pain; Weight loss counseling, encounter for Start: 04-28-2024 End: 06-28-2024 Follow-up encounter rEica Cannon MD Work Phone: [facility] [place] Start: 04-24-2024 End: 04-29-2024 Telephone encounter Erica Cannon MD Work Phone: [facility] [place] Comment on above: Results Start: 04-23-2024 End: 04-23-2024 ambulatory ERICA CANNON Facility:[facility] Start: 04-23-2024 End: 04-23-2024 Patient encounter procedure Tom Bolaños Work Phone: Podiatry Comment on above: Onychomycosis (Prima ry Dx); Pain in toe of left foot; Pain in toe of right foot; Diabetic polyneuropathy associated with type 2 diabetes mellitus (HCC) Start: 04-17-2024 End: 05-12-2024 ambulatory SELF Facility:[facility] Start: 04-12-2024 End: 04-12-2024 Refill Erica Cannon MD Work Phone: [facility] [place] Comment on above: Refill Request Start: 03-26-2024 End: 03-27-2024 Telephone encounter Erica Cannon MD Work Phone: [facility] [place] Comment on above: Patient Update Start: 03-22-2024 End: 03-22-2024 Refill Erica Cannon MD Work Phone: [facility] [place] Comment on above: Refill Request Start: 03-20-2024 End: 03-20-2024 ambulatory ERICA CANNON Facility:[facility] Start: 03-18-2024 End: 03-19-2024 Telephone encounter Erica Cannon MD Work Phone: [facility] [place] Comment on above: Patient Update; Orde rs Start: 03-10-2024 End: 03-10-2024 Refill Erica Cannon MD Work Phone: [facility] [place] Comment on above: Refill Request Start: 02-27-2024 End: 03-06-2024 Refill Erica Cannon MD Work Phone: [facility] Comment on above: Refill Request urine culture result s ; Patient Question Start: 02-23-2024 End: 02-23-2024 ambulatory ERICA CANNON Facility:[facility] Start: 02-20-2024 End: 02-22-2024 Refill Erica Cannon MD Work Phone: [facility] [place] Comment on above: Refill Request UTI Start: 01-30-2024 ambulatory Erica Cannon Facilit y:[facility] Start: 01-29-2024 End: 01-30-2024 Refill Erica Cannon MD Work Phone: [facility] [place] Comment on above: Refill Request Start: 01-19-2024 End: 01-19-2024 Refill Erica Cannon MD Work Phone: [facility] [place] Comment on above: Refill Request Start: 12-31-2023 End: 12-31-2023 Telephone encounter Silvestre Jain APRN.CNP Work Phone: [facility] [place] Start: 12-26-2023 End: 12-26-2023 Refill Erica Cannon MD Work Phone: [facility] [place] Comment on above: Refill Request Start: 11-28-2023 End: 11-28-2023 ambulatory [facility] Work Phone: [facility] Comment on above: Spirometry Refill Request Start: 11-28-2023 End: 11-28-2023 Patient encounter procedure [facility] Work Phone: P[facility] Comment on above: Pulmonary hypertensi on (HCC) (Primary Dx); On supplemental oxygen therapy; Hypoxia; Obstructive sleep apnea; Left lower quadrant abdominal pain; Morbid obesity (HCC); Encounter for immunization Start: 11-21-2023 End: 11-25-2023 Telephone encounter Silvestre Jain APRN.[facility] Work Phone: [facility] [place] Comment on above: order problems Start: 11-05-2023 End: 11-26-2023 Telephone encounter Silvestre Jain APRN.[facility] Work Phone: [facility] [place] Comment on above: Patient Update Orders Start: 10-31-2023 End: 10-31-2023 Refill Erica Cannon MD Work Phone: [facility] [place] Comment on above: Refill Request Start: 10-22-2023 End: 10-24-2023 Telephone encounter Erica Cannon MD Work Phone: [facility] [place] Comment on above: Patient Update Start: 10-21-2023 End: 10-21-2023 Patient encounter procedure Silvestre Jain APRN.[facility] Work Phone: [facility] [place] Comment on above: Dental infection (Pr imary Dx); Pulmonary hypertension (HCC); Obstructive sleep apnea; Moderate persistent asthma without complication; On supplemental oxygen therapy; Morbid obesity (HCC) Start: 10-20-2023 End: 10-20-2023 Telephone encounter Mary Woods RNoutside collector [place] Comment on above: Medication Request Start: 10-16-2023 End: 10-17-2023 Telephone encounter Erica Cannon MD Work Phone: [facility] [place] Comment on above: Orders (Rollator) Start: 10-08-2023 [...] encounter status Jame Castañeda MD Work Phone: [facility] Start: 09-29-2023 Refill Erica salazar MD Work Phone: [facility] [place] Comment on above: Refill Request Start: 09-24-2023 Telephone encounter Erica zimmer MD Work Phone: [facility] [place] Comment on above: change in pharmacy Start: 09-22-2023 End: 09-22-2023 Patient encounter procedure Leticia Echavarria [facility] Work Phone: [facility] Comment on above: Type 2 diabetes (HCC ) (Primary Dx) Start: 09-22-2023 End: 09-22-2023 Telemedicine consultation with patient Leticia Echavarria [facility] Work Phone: [facility] Start: 09-05-2023 Telephone encounter Erica zimmer MD Work Phone: [facility] [place] Comment on above: Patient Question Start: 09-04-2023 Refill Erica salazar MD Work Phone: [facility] [place] Comment on above: Refill Request Start: 08-29-2023 Home visit Silvestre Eddy PRN.CNP Work Phone: [facility] [place] Comment on above: Moderate persistent asthma without complication (Primary Dx) Start: 08-27-2023 Telephone encounter Erica zimmer MD Work Phone: [facility] [place] Comment on above: Insurance Authorizat ion Start: 08-27-2023 End: 08-27-2023 Patient encounter procedure Silvestre Jain APRN.[facility] Work Phone: [facility] [place] Comment on above: Diverticulitis (Prim josefina Dx); Left lower quadrant abdominal pain; Type 2 diabetes (HCC); Primary hypertension; Obstructive sleep apnea; Moderate persistent asthma without complication; On supplemental oxygen therapy Start: 08-20-2023 Telephone encounter Silvestre marin APRN.[facility] Work Phone: [facility] [place] Comment on above: Appointment Start: 08-16-2023 Refill Erica salazar MD Work Phone: [facility] [place] Comment on above: Refill Request Start: 08-12-2023 End: 08-12-2023 Patient encounter procedure Tom Bolaños Work Phone: Podiatry Comment on above: Onychomycosis (Prima ry Dx); Pain in toe of left foot; Pain in toe of right foot; Diabetic polyneuropathy associated with type 2 diabetes mellitus (HCC) Start: 08-06-2023 End: 12-31-2023 Telephone encounter Erica Cannon MD Work Phone: [facility] [place] Comment on above: Patient Update (went to [facility] ER 08/04/23) Start: 08-04-2023 End: 08-04-2023 Patient encounter procedure Fernanda Bryant APRN.[facility] Work Phone: [facility] Comment on above: Urinary frequency (P rimary Dx); Flank pain Start: 07-30-2023 Refill Silvestre CHAVEZN.[facility] Work Phone: [facility] [place] Comment on above: Refill Request Start: 07-29-2023 Telephone encounter Erica zimmer MD Work Phone: [facility] [place] Comment on above: UTI Start: 07-19-2023 Telephone encounter Erica zimmer MD Work Phone: [facility] [place] Comment on above: Patient Question Start: 07-11-2023 Telephone encounter Erica zimmer MD Work Phone: [facility] [place] Start: 07-10-2023 Telephone encounter Erica zimmer MD Work Phone: [facility] [place] Comment on above: Patient Update; Janeen ent Question Start: 07-09-2023 ambulatory Erica salazar MD Work Phone: [facility] [place] Start: 07-09-2023 Telephone encounter Silvestre marin [employer]IVE [employer]OWER.[facility] Work Phone: [facility] [place] Comment on above: Patient Update Start: 07-03-2023 Admission to [facility] Erica Cannon MD Work Phone: Ambulatory Surgery Start: 07-03-2023 ambulatory Erica salazar MD Work Phone: Ambulatory Surgery Start: 06-30-2023 Telephone encounter Leticia mcdaniel [facility] Work Phone: [facility] Comment on above: Medication Question (Mounjaro dose increase) Insurance Authorizat ion Start: 06-30-2023 End: 06-30-2023 Patient encounter procedure Leticia Echavarria [facility] Work Phone: [facility] Comment on above: Type 2 diabetes (HCC ) (Primary Dx) Start: 06-30-2023 End: 06-30-2023 Telemedicine consultation with patient Leticia Echavarria [facility] Work Phone: [facility] Start: 06-26-2023 Refill Erica salazar MD Work Phone: [facility] [place] Comment on above: Refill Request Start: 06-25-2023 Telephone encounter Erica zimmer MD Work Phone: [facility] [place] Comment on above: Order for hospital b ed Patient Question Start: 06-11-2023 Telephone encounter Erica zimmer MD Work Phone: [facility] [place] Start: 06-09-2023 Telephone encounter Erica zimmer MD Work Phone: [facility] [place] Comment on above: patient information Start: 06-04-2023 End: 06-04-2023 ambulatory Leticia Echavarria [facility] Work Phone: [facility] Comment on above: Type 2 diabetes (HCC ) (Primary Dx) Start: 06-04-2023 End: 06-04-2023 Telemedicine consultation with patient Leticia Echavarria [facility] Work Phone: [facility] Start: 06-02-2023 Telephone encounter Erica zimmer MD Work Phone: [facility] [place] Comment on above: Insurance Authorizat ion Start: 05-26-2023 Telephone encounter Silvestre Cleav er [employer].[facility] Work Phone: [facility] [place] Comment on above: Results, Lab Medication Problem Start: 05-21-2023 Telephone encounter Silvestre Cleav er [employer]IVE [employer]OWER.[facility] Work Phone: [facility] [place] Comment on above: Home Health Orders Start: 05-20-2023 Telephone encounter Silvestre Cleav er OLIVE GROWER.[facility] Work Phone: [facility] [place] Comment on above: Medication Request Start: 05-19-2023 Telephone encounter Silvestre Cleav er OLIVE GROWER.[facility] Work Phone: [facility] [place] Comment on above: Orders Start: 05-16-2023 Refill Silvestre Susy A PRN.[facility] Work Phone: [facility] [place] Comment on above: Refill Request Start: 05-16-2023 Telephone encounter Erica zimmer MD Work Phone: [facility] [place] Comment on above: DME Request: Mattres s [employer] Start: 05-15-2023 [facility] Comment on above: Weight loss medicati ons Start: 05-14-2023 End: 05-14-2023 ambulatory Leticia [facility] Work Phone: [facility] Comment on above: Type 2 diabetes (HCC ) (Primary Dx) Start: 05-14-2023 End: 05-14-2023 [facility] Start: 05-12-2023 Telephone encounter Erica zimmer MD Work Phone: [facility] [place] Comment on above: Insurance Authorizat ion Start: 05-08-2023 End: 05-08-2023 Patient encounter procedure Tom Erwinchapinctio Work Phone: Podiatry Comment on above: Onychomycosis (Prima ry Dx); Pain in toe of left foot; Pain in toe of right foot; Diabetic mononeuropathy associated with diabetes mellitus due to underlying condition (HCC) Start: 05-07-2023 Refill Erica salazar MD Work Phone: [facility] [place] Comment on above: Refill Request/blood sugar readings Start: 05-05-2023 Telephone encounter Silvestre Cleav er [employer]OWER.[facility] Work Phone: [facility] [place] Comment on above: Dental Problem Start: 04-23-2023 Refill Silvestre Susy A PRN.[facility] Work Phone: [facility] [place] Comment on above: Refill Request Start: 04-16-2023 Telephone encounter Erica zimmer MD Work Phone: [facility] [place] Comment on above: Insurance Authorizat ion Start: 04-16-2023 End: 04-16-2023 ambulatory [facility] Work Phone: [facility] Comment on above: Type 2 diabetes (HCC ) (Primary Dx) Start: 04-16-2023 End: 04-16-2023 Telemedicine consultation with patient Leticia [facility] Work Phone: [facility] Start: 04-14-2023 End: 04-14-2023 ambulatory Silvestre Susy [employer]IVE GROWER.[facility] Work Phone: [facility] [place] Comment on above: Moderate persistent asthma without complication (Primary Dx); Morbid obesity (HCC); Reactive depression; Anxiety state Start: 04-14-2023 End: 04-14-2023 Telemedicine consultation with patient Silvestre Susy OLIVE GROWER.[facility] Work Phone: [facility] Start: 04-10-2023 Refill Silvestre Susy A PRN.[facility] Work Phone: [facility] [place] Comment on above: Refill Request; Refi ll Request Start: 04-10-2023 Telephone encounter Silvestre Cleav er OLIVE GROWER.[facility] Work Phone: [facility] [place] Comment on above: Patient Question Start: 04-01-2023 Refill Erica salazar MD Work Phone: [facility] [place] Comment on above: Refill Request Start: 01-29-2023 End: 01-29-2023 ambulatory Leticia Echavarria [facility] Work Phone: [facility] Comment on above: Type 2 diabetes (HCC ) (Primary Dx); Medication management Refill Request Start: 01-29-2023 End: 01-29-2023 Telemedicine consultation with patient Leticia Echavarria [facility] Work Phone: [facility] Start: 01-24-2023 ambulatory Erica salazar MD Work Phone: [facility] [place] Comment on above: Diarrhea Start: 01-08-2023 Telephone encounter Silvestre marin [employer]IVE GROWER.[facility] Work Phone: [facility] [place] Comment on above: Medication Problem Start: 01-01-2023 End: 01-01-2023 Patient encounter procedure Silvestre Jain OLIVE GROWER.[facility] Work Phone: [facility] [place] Comment on above: Left lower quadrant abdominal pain (Primary Dx); Pelvic pain; Type 2 diabetes (HCC); Primary hypertension Start: 12-30-2022 ambulatory Erica salazar MD Work Phone: [facility] [place] Comment on above: Abdominal Pain Start: 12-06-2022 Refill Silvestre Jain A PRN.[facility] Work Phone: [facility] [place] Comment on above: Refill Request Start: 12-04-2022 Telephone encounter Aurora Aparicio [facility] Work Phone: [facility] Comment on above: Transition Of Care ( Diabetes) Start: 12-03-2022 Telephone encounter Tom Bradley Work Phone: Podiatry Comment on above: Patient Update Start: 11-28-2022 End: 11-28-2022 ambulatory Aurora Aparicio [facility] Work Phone: [facility] Comment on above: Type 2 diabetes (HCC ) (Primary Dx) Start: 11-28-2022 End: 11-28-2022 Telemedicine consultation with patient Aurora Aparicio [facility] Work Phone: [facility] Start: 11-19-2022 Refill Erica salazar MD Work Phone: [facility] [place] Comment on above: Refill Request Start: 11-18-2022 Telephone encounter Erica zimmer MD Work Phone: [facility] [place] Comment on above: Patient Update; Janeen ent Question Start: 11-13-2022 Telephone encounter Erica zimmer MD Work Phone: [facility] [place] Comment on above: Medication Request Start: 11-12-2022 End: 11-12-2022 Patient encounter procedure John Caldwell MD Work Phone: Ophthalmology Comment on above: 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 (Primary Dx); Pseudophakia; Senile nuclear cataract, right Start: 11-05-2022 End: 11-05-2022 Patient encounter procedure Silvestre Jain APRN.CNP Work Phone: [facility] [place] Comment on above: Allergic rhinitis, u nspecified seasonality, unspecified trigger (Primary Dx); Reactive depression; Primary hypertension; Mixed hyperlipidemia; Decreased mobility; Morbid obesity (HCC); Iron deficiency anemia, unspecified iron deficiency anemia type; Encounter for immunization; Encounter for therapeutic drug monitoring Start: 11-01-2022 Refill Lydia KRAUSE Work Phone: [facility] [place] Comment on above: Refill Request Start: 10-25-2022 End: 10-25-2022 ambulatory Aurora Aparicio [facility] Work Phone: [facility] Comment on above: Type 2 diabetes (HCC ) (Primary Dx) Start: 10-25-2022 End: 10-25-2022 Telemedicine consultation with patient Aurora Aparicio [facility] Work Phone: [facility] Start: 10-23-2022 End: [...] Erica salazar MD Work Phone: [facility] [place] Comment on above: tooth pain Start: 09-24-2022 Telephone encounter Erica zimmer MD Work Phone: [facility] [place] Comment on above: Patient Question Start: 09-23-2022 Refill Erica salazar MD Work Phone: [facility] [place] Comment on above: Refill Request Start: 09-20-2022 Refill Erica salazar MD Work Phone: [facility] [place] Comment on above: Refill Request Start: 09-19-2022 Refill Erica salazar MD Work Phone: [facility] [place] Comment on above: Refill Request Start: 09-17-2022 Telephone encounter Erica zimmer MD Work Phone: [facility] [place] Comment on above: Medication Question Start: 09-05-2022 Telephone encounter John Caldwell MD Work Phone: Ophthalmology Comment on above: Follow Up Start: 09-04-2022 Refill Silvestre Eddy PRN.CNP Work Phone: [facility] [place] Comment on above: Refill Request Start: 09-03-2022 End: 09-03-2022 Patient encounter procedure John Caldwell MD Work Phone: Ophthalmology Comment on above: Pseudophakia (Primar y Dx) Start: 09-02-2022 Telephone encounter Erica zimmer MD Work Phone: [facility] [place] Comment on above: Results Start: 08-29-2022 Telephone encounter Erica zimmer MD Work Phone: [facility] [place] Comment on above: Patient Update Start: 08-24-2022 Home visit Erica salazar MD Work Phone: [facility] [place] Comment on above: Primary hypertension (Primary Dx) Start: 08-23-2022 Telephone encounter Erica zimmer MD Work Phone: [facility] [place] Comment on above: Opened In Error Start: 08-22-2022 Telephone encounter Lydia Connor angela [employer]IVE GROWER.RAW MILL OPERATOR Work Phone: [facility] [place] Comment on above: Patient Update (From OV yesterday) Start: 08-21-2022 End: 08-21-2022 Office outpatient visit 25 minutes Erica Cannon MD Work Phone: [facility] [place] Comment on above: Acute renal insuffic iency (Primary Dx); Hypokalemia; Muscular deconditioning; Chronic nasal congestion; Primary hypertension; Ulcer of left lower extremity, limited to breakdown of skin (HCC); Allergic rhinitis, unspecified seasonality, unspecified trigger; Morbid obesity (HCC) Start: 08-19-2022 Non-patient / Non-visit Dr. Mina Cannon Work Phone: [facility] Start: 08-18-2022 Non-patient / Non-visit Dr. Mina Cnanon Work Phone: [facility] Start: 08-18-2022 Non-patient / Non-visit Dr. Mina Cannon Work Phone: [facility] Start: 08-17-2022 Non-patient / Non-visit Dr. Mina Cannon Work Phone: [facility] Start: 08-17-2022 Non-patient / Non-visit Dr. Mina Cannon Work Phone: [facility] Start: 08-16-2022 Non-patient / Non-visit Dr. Mina Cannon Work Phone: [facility] Start: 08-15-2022 Non-patient / Non-visit Dr. Mina Cannon Work Phone: [facility] Start: 08-14-2022 End: 08-19-2022 [facility] Start: 08-14-[address] ERICA CANNON MD Fac ility:B Start: 08-14-2022 Telephone encounter Erica zimmer MD Work Phone: [facility] [place] Comment on above: Patient Update; Resu lts; Recheck Start: 08-12-2022 End: 08-12-2022 Patient encounter procedure Katya Older OLIVE GROWER.[facility] Work Phone: [facility] [place] Comment on above: Diarrhea, unspecifie d type (Primary Dx) Start: 08-12-2022 ambulatory Erica salazar MD Work Phone: [facility] [place] Comment on above: Diarrhea Start: 08-07-2022 End: 08-07-2022 Admission to establishment [facility] [place] [facility] Work Phone: [facility] Start: 08-07-2022 End: 08-07-[facility] Comment on [...] Start: 08-07-2022 End: 08-07-2022 [facility] Work [facility] Start: 07-31-2022 Refill Erica salazar MD Work Phone: [facility] [place] Comment on above: Refill Request Start: 07-28-2022 Refill Silvestre Eddy PRN.CNP Work Phone: [facility] [place] Comment on above: Refill Request Start: 07-24-2022 Telephone encounter Erica zimmer MD Work Phone: [facility] [place] Comment on above: fax from [employer] Start: 07-05-2022 End: 07-05-2022 ambulatory Aurora Aparicio [facility] Work Phone: [facility] Comment on above: Type 2 diabetes (HCC ) (Primary Dx) Start: 07-05-2022 End: 07-05-2022 Telemedicine consultation with patient Aurora Aparicio [facility] Work Phone: [facility] Start: 06-27-2022 Telephone encounter Erica zimmer MD Work Phone: [facility] [place] Comment on above: Insurance Authorizat ion Start: 06-26-2022 Telephone encounter Aurora Aparicio [facility] Work Phone: [facility] Comment on above: Patient Question; Pa tient Update Start: 06-21-2022 Telephone encounter Erica zimmer MD Work Phone: [facility] [place] Comment on above: Patient Question Start: 06-07-2022 Telephone encounter Erica zimmer MD Work Phone: [facility] [place] Comment on above: Orders Start: 06-04-2022 End: [...] Start: 05-31-2022 End: 05-31-2022 ambulatory Aurora Aparicio [facility] Work Phone: [facility] Comment on above: Type 2 diabetes (HCC ) (Primary Dx) Start: 05-31-2022 End: 05-31-2022 Telemedicine consultation with patient Aurora Aparicio RP Work Phone: [facility] Start: 05-30-2022 Telephone encounter Lydia miller [employer].RAW MILL OPERATOR Work Phone: [facility] [place] Comment on above: Medication Problem Start: 05-29-2022 Refill Silvestre ENGLAND.[facility] Work Phone: [facility] [place] Comment on above: Refill Request Start: 05-29-2022 Telephone encounter Erica zimmer MD Work Phone: [facility] [place] Comment on above: Patient Question Start: 05-21-2022 End: 05-21-2022 ambulatory Silvestre Susy BENJAMIN.DIRECT[facility] Work Phone: [facility] [place] Comment on above: Primary insomnia (Pr imary Dx); Decreased mobility; Gait instability; Primary osteoarthritis of both knees; Primary hypertension; Type 2 diabetes (HCC); Leg cramp; Muscle spasm; Anxiety state; BMI 60.0-69.9, adult (HCC) Start: 05-21-2022 End: 05-21-2022 Telemedicine consultation with patient Silvestre Jain SOURAV.DIRECTOR [facility] Work Phone: [facility] [place] Start: 05-17-2022 Telephone encounter Erica zimmer MD Work Phone: [facility] [place] Comment on above: Patient Update Start: 05-15-2022 Telephone encounter Erica zimmer MD Work Phone: [facility] [place] Comment on above: Lab order question Start: 05-14-2022 Telephone encounter Erica zimmer MD Work Phone: [facility] [place] Comment on above: problem with PA Start: 05-10-2022 End: 05-10-2022 Patient encounter procedure Aurora Aparicio [facility] Work Phone: [facility] Comment on above: Type 2 diabetes (HCC ) (Primary Dx); Medication management Start: 05-09-2022 Telephone encounter Erica zimmer MD Work Phone: [facility] [place] Comment on above: Insurance Authorizat ion (Ozempic ) Start: 05-07-2022 Telephone encounter Erica zimmer MD Work Phone: [facility] [place] Comment on above: Patient Question; Me dication Problem Start: 05-06-2022 Telephone encounter Erica zimmer MD Work Phone: [facility] [place] Comment on above: Urine symptoms Start: 05-04-2022 Refill Erica salazar MD Work Phone: [facility] [place] Comment on above: Refill Request Start: 05-03-2022 Telephone encounter Erica zimmer MD Work Phone: [facility] [place] Comment on above: Physical Therapy [place] [facility] Start: 04-26-2022 Telephone encounter Erica zimmer MD Work Phone: [facility] [place] Comment on above: Sore Throat Start: 04-25-2022 Telephone encounter Erica zimmer MD Work Phone: [facility] [place] Comment on above: referral for HH/medi cation problem Start: 04-23-2022 End: 04-23-2022 ambulatory Silvestre Jain OLIVE GROWER.[facility] Work Phone: [facility] [place] Comment on above: NO SHOW (Primary Dx) Start: 04-23-2022 End: 04-23-2022 Telemedicine consultation with patient Silvestre Susy BENJAMIN.DIRECT[facility] Work Phone: [facility] [place] Start: 04-16-2022 Telephone encounter Erica zimmer MD Work Phone: [facility] [place] Comment on above: [facility] order request Refill Request; Refi ll Request Start: 04-12-2022 Telephone encounter Erica zimmer MD Work Phone: [facility] [place] Comment on above: Blood Sugar Reading Start: 04-08-2022 Refill Erica salazar MD Work Phone: [facility] [place] Comment on above: Refill Request New Rx Request Start: 04-06-2022 Telephone encounter Erica zimmer MD Work Phone: [facility] [place] Comment on above: handicap sign Start: 04-04-2022 End: 04-04-2022 ambulatory Lydia North OLIVE GROWER.RAW MILL OPERATOR Work Phone: [facility] [place] Comment on above: Bacterial conjunctiv itis of left eye (Primary Dx) Start: 04-04-2022 End: 04-04-2022 Telemedicine consultation with patient Lydia North APRN.RAW MILL OPERATOR Work Phone: [facility] [place] Start: 03-29-2022 Refill Erica salazar MD [...] Erica salazar MD Work Phone: [facility] [place] Comment on above: Refill Request Start: 03-21-2022 Orders Only Silvestre ERICDIRECTOR [facility] Work Phone: [facility] [place] Start: 03-15-2022 Refill Erica salazar MD Work Phone: [facility] [place] Comment on above: Med Change Request Start: 03-13-2022 Telephone encounter Erica zimmer MD Work Phone: [facility] [place] Comment on above: Medication Problem Start: 03-11-2022 Refill Erica salazar MD Work Phone: [facility] [place] Comment on above: Refill Request Start: 03-02-2022 Refill Erica salazar MD Work Phone: [facility] [place] Comment on above: Refill Request Start: 03-01-2022 Telephone encounter Erica zimmer MD Work Phone: [facility] [place] Comment on above: Patient Question Start: 02-28-2022 Telephone encounter Erica zimmer MD Work Phone: [facility] [place] Comment on above: [facility] Start: 02-27-2022 Telephone encounter Erica zimmer MD Work Phone: [facility] [place] Comment on above: [facility]/refill request Home Health OT Plan of Care Insurance Authorwinsome sin Start: 02-26-2022 Telephone encounter Erica zimmer MD Work Phone: [facility] [place] Comment on above: Orders Medication problem/p rescription request Start: 02-23-2022 Telephone encounter Erica zimmer MD Work Phone: [facility] [place] Comment on above: Refill Request Start: 02-19-2022 Telephone encounter Erica zimmer MD Work Phone: [facility] [place] Comment on above: Patient Update; HH O [...] Phone: [facility] [place] Comment on above: Appointment Start: 02-09-2022 Telephone encounter Erica zimmer MD Work Phone: [facility] [place] Comment on above: home health calling for verbal orders Start: 02-07-2022 Telephone encounter Erica zimmer MD Work Phone: [facility] [place] Comment on above: Home Health orders Start: 02-06-2022 Refill Erica salazar MD Work Phone: Internal [facility] Comment on above: Refill Request Patient Question Start: 11-29-2021 End: 11-29-2021 Emergency department patient visit Dr. Erica Cannon Work Phone: [facility]-Emergency Department Start: 11-29-2021 Non-patient / Non-visit Dr. Mina Cannon Work Phone: [facility]-WSA Start: 11-20-2021 Non-patient / Non-visit Dr. Mina Cannon Work Phone: [facility] Start: 11-20-2021 Non-patient / Non-visit Dr. Mina Cannon Work Phone: [facility]-PMW Start: 11-19-2021 Non-patient / Non-visit Dr. Mina Cannon Work Phone: [facility] Start: 11-18-2021 End: 11-20-2021 Evaluation and management of inpatient Dr. Erica Cannon Work Phone: [facility]-Intensive Care Unit Start: 11-13-2021 End: 11-13-2021 Emergency department patient visit Dr. Erica Cannon Work Phone: [facility]-Emergency Department Start: 10-17-2021 ambulatory Socorro Plasencia MA [facility] Comment on above: Population Health Na vigation Outreach (HCC) Start: 08-23-2021 Telephone encounter Erica zimmer MD Work Phone: Internal [facility] Comment on above: Clinical Update Start: 08-22-2021 ambulatory Erica salazar MD Work Phone: Internal [facility] [place] Start: 08-15-2021 Non-patient / Non-visit Dr. Mina Cannon Work Phone: [facility] Start: 08-14-2021 Non-patient / Non-visit Dr. Mina Cannon Work Phone: [facility] Start: 08-13-2021 Telephone encounter Erica zimmer MD Work Phone: Hematology/Oncology Comment on above: Missed Appointment Start: 08-13-2021 Non-patient / Non-visit Dr. Mina Cannon Work Phone: [facility] Start: 08-12-2021 Non-patient / Non-visit Dr. Mina Cannon Work Phone: [facility] Start: 08-11-2021 Non-patient / Non-visit Dr. Mina Cannon Work Phone: [facility] Start: 08-10-2021 Non-patient / Non-visit Dr. Mina Cannon Work Phone: [facility] Start: 08-09-2021 Non-patient / Non-visit Dr. Mina Cannon Work Phone: [facility] Start: 08-08-2021 Non-patient / Non-visit Dr. Mina Cannon Work Phone: [facility] Start: 08-07-2021 Non-patient / Non-visit Dr. Mina Cannon Work Phone: [facility] Start: 08-06-2021 Non-patient / Non-visit Dr. Mina Cannon Work Phone: [facility] Start: 08-06-2021 Telephone encounter Charu Meyer [facility] Comment on above: Opened In Error Start: 08-05-2021 Non-patient / Non-visit Dr. Mina Cannon Work Phone: [facility] Start: 08-05-2021 Non-patient / Non-visit Dr. Mina Cannon Work Phone: [facility] Start: 08-04-2021 Non-patient / Non-visit Dr. Mina Cannon Work Phone: [facility] Start: 08-04-2021 Non-patient / Non-visit Dr. Mina Cannon Work Phone: [facility] Start: 08-03-2021 Non-patient / Non-visit Dr. Mina Cannon Work Phone: [facility] Start: 08-03-2021 Non-patient / Non-visit Dr. Mina Cannon Work Phone: [facility] Start: 08-02-2021 Non-patient / Non-visit Dr. Mina Cannon Work Phone: [facility] Start: 08-02-2021 Non-patient / Non-[facility] Start: 08-02-2021 Non-patient / Non-visit Dr. Mina Cannon Work Phone: [facility] Start: 08-01-2021 End: 08-01-2021 ambulatory Treatment Rm 13 Alcides [facility] Work Phone: Hematology/Oncology Comment on above: Iron deficiency anem ia, unspecified iron deficiency anemia type (Primary Dx) Start: 08-01-2021 Non-patient / Non-visit Dr. Mina Cannon Work Phone: [facility] Start: 07-31-2021 End: 08-16-2021 Evaluation and management of inpatient [facility]-Progressive Care Unit Start: 07-29-2021 End: 07-29-2021 Emergency department patient visit PRISCILA QUEVEDO MD [facility] Start: 07-27-2021 Telephone encounter Erica zimmer MD Work Phone: [facility] [place] Comment on above: Medication Request Start: 07-26-2021 Orders Only Shine Mendoza MD Work Phone: Orthopaedics Comment on above: Pain in both knees, unspecified chronicity (Primary Dx) Start: 07-25-2021 Telephone encounter Erica zimmer MD Work Phone: [facility] [place] Comment on above: Office Notes Start: 07-24-2021 Telephone encounter Erica zimmer MD Work Phone: [facility] [place] Comment on above: Orders Start: 07-17-2021 End: 07-17-2021 Patient encounter procedure Matt [place] Comment on above: Peripheral vascular disease, unspecified (HCC) (Primary Dx) Start: 07-11-2021 End: 07-11-2021 Patient encounter procedure Mateusz Upton [employer] FINANCIAL DEVELOPER Work Phone: Psychology Comment on above: No-show for appointm ent (Primary Dx) Start: 07-10-2021 Telephone encounter Gregoria nash TRANSLATION DIRECTOR Work Phone: Adult Psychology Comment on above: behavioral health so cial work Consult ([facility] Return ing Pt's Vm) Start: 07-09-2021 Telephone encounter Erica zimmer MD Work Phone: [facility] [place] Comment on above: Results Start: 07-05-2021 End: 07-05-2021 Office outpatient visit 40 minutes Erica Cannon MD Work Phone: [facility] [place] Comment on above: Morbid obesity (HCC) (Primary [...] Erica salazar MD Work Phone: [facility] [place] Comment on above: Refill Request Start: 07-03-2021 Telephone encounter Gregoria nash TRANSLATION DIRECTOR Work Phone: Adult Psychology Comment on above: beahvioral health so cial work Refill Request Start: 07-02-2021 Telephone encounter Erica zimmer MD Work Phone: [facility] [place] Comment on above: Medication Problem; Patient Update Start: 06-15-2021 Refill Erica salazar MD Work Phone: [facility] [place] Comment on above: Refill Request Start: 05-30-2021 Refill Erica salazar MD Work Phone: [facility] [place] Comment on above: Refill Request Joint Pain (knee) Start: 05-14-2021 End: 05-14-2021 Office outpatient visit 40 minutes Erica Cannon MD Work Phone: [facility] [place] Comment on above: Insomnia, unspecifie d type (Primary Dx); Current moderate episode of major depressive disorder, unspecified whether recurrent (HCC); Primary osteoarthritis of both knees; Anxiety state; Morbid obesity (HCC); Type 2 diabetes (HCC); Iron deficiency anemia, unspecified iron deficiency anemia type Start: 10-24-2020 Refill Erica salazar MD Work Phone: Internal [facility] [place] Comment on above: Refill Request Start: 05-19-2017 Ambulatory [facility] Facility :[facility] Procedures Date Procedure Procedure Detail Performing Clinician Start: 11-11-2024 Echocardiography SILVESTRE SUSY Start: 10-29-2024 Ecg routine ecg w/least 12 lds i&r only [facility] Provider Start: 10-29-2024 Urnls dip stick/tablet rgnt auto w/o microscopy Katya Biggs APRN.CNP Work Phone: Start: 07-18-2024 Urnls dip stick/tablet rgnt auto w/o microscopy [facility] Provider Start: 06-23-2024 Urnls dip stick/tablet rgnt auto w/o microscopy Gregoria Patton OLIVE GROWER.DIRECT[facility] Work Phone: Start: 11-28-2023 Noninvasive ear/pulse oximetry multiple deter Silvestre Jain OLIVE GROWER.DIRECT[facility] Work Phone: Start: 08-04-2023 Urnls dip stick/tablet rgnt auto w/o microscopy Zac Silvestre OLIVE GROWER.DIRECT[facility] Work Phone: Start: 11-05-2022 INFLUENZA VACCINE, AGE 6 MO - 64 YR, QUADRIVALENT (AFLURIA, FLULAVAL, FLUZONE) Silvestre Dentonr OLIVE GROWER.DIRECT[facility] Work Phone: Start: 08-15-2022 US urinary tract [...] malignant neoplasm of cervix Cervical Cancer Screening [facility] Start: 10-29-2025 Annual PCP Team Chronic Disease Visit Annual PCP Team Chronic Disease Visit [facility] Start: 09-21-2025 Annual PCP Team Chronic Disease Visit Annual PCP Team Chronic Disease Visit [facility] Start: 09-21-2025 Complete blood count Hemoglobin/Hematocrit [facility] Start: 09-21-2025 Creatinine measurement Serum Creatinine [facility] Start: 09-18-2025 Screening for malignant neoplasm of colon Fecal Occult Blood [facility] Start: 09-07-2025 Annual PCP Team Chronic Disease Visit Annual PCP Team Chronic Disease Visit [facility] Start: 08-24-2025 Complete blood count Hemoglobin/Hematocrit [facility] Start: 08-16-2025 Annual PCP Team Chronic Disease Visit Annual PCP Team Chronic Disease Visit [facility] Start: 08-16-2025 Complete blood count Hemoglobin/Hematocrit [facility] Start: 08-16-2025 Creatinine measurement Serum Creatinine [facility] Start: 07-18-2025 BP Controlled (<130/80) BP Controlled (<130/80) [facility] Start: 06-23-2025 BP Controlled (<130/80) BP Controlled (<130/80) [facility] Start: 05-07-2025 Annual PCP Team Chronic Disease Visit Annual PCP Team Chronic Disease Visit [facility] Start: 04-23-2025 Complete blood count Hemoglobin/Hematocrit [facility] Start: 04-23-2025 Creatinine measurement Serum Creatinine [facility] Start: 04-23-2025 Hepatitis B surface antibody level LDL Cholesterol [facility] Start: 04-17-2025 Annual PCP Team Chronic Disease Visit Annual PCP Team Chronic Disease Visit [facility] Start: 02-15-2025 Hemoglobin A1c measurement HbA1C [place] [facility] Start: 01-03-2025 End: 01-03-2025 Patient encounter procedure 01/03/2025 10:30 AM EST Office Visit Podiatry [address] [place] [address] Tom Bolaños [address] [place] [address] 3 month follow up nail care Podiatry Comment on above: 3 month follow up nail care Start: 12-20-2024 End: 12-20-2024 Patient encounter procedure Frequent UTI -[facility] Work Phone: Start: 12-18-2024 Us retroperitoneal real time w/image complete Kidney and Bladder [facility] Start: 12-18-2024 Patient encounter procedure Registered Clinical -Ultrasound [facility] Work Phone: Start: 12-03-2024 End: 12-03-2024 ambulatory 12/03/2024 11:20 AM EDT Visit (SP) Office Hematology/Oncology [address] [place] [address] Rj Dempsey DO [address] [place] [address] 3-4 WK OV* Hematology/Oncolog y Comment on above: 3-4 WK OV* Start: 11-27-2024 Annual PCP Team Chronic Disease Visit Annual PCP Team Chronic Disease Visit [facility] Start: 11-27-2024 BP Controlled (<130/80) BP Controlled (<130/80) [facility] Start: 11-17-2024 End: 11-17-2024 ambulatory 11/17/2024 10:30 AM EDT Infusion Center Hematology/Oncology [address] [place], [place] [id number] 2ND IRON SUCROSE/5-5* Hematology/Oncolog y Comment on above: 2ND IRON SUCROSE/5-5* Start: 11-16-2024 End: 11-16-2024 Patient encounter procedure 11/16/2024 2:40 PM EDT Office Visit [facility] [place] [address] [place] [address] Erica Cannon MD [address] [place] [address] 3 month follow up [facility] [place] Comment on above: 3 month follow up Start: 11-15-2024 End: 11-15-2024 ambulatory 11/15/2024 11:30 AM EDT Infusion Center Hematology/Oncology [address] [place] [address] 2ND IRON SUCROSE/4-5* Hematology/Oncolog y Comment on above: 2ND IRON SUCROSE/4-5* Start: 11-12-2024 End: 11-12-2024 ambulatory 11/12/2024 3:00 PM EDT Infusion Center Hematology/Oncology [address] [place] [address] 2ND IRON SUCROSE/3-5* Hematology/Oncolog y Comment on above: 2ND IRON SUCROSE/3-5* Start: 11-11-2024 End: 11-11-2024 Patient encounter procedure 11/11/2024 11:20 AM EDT Office Visit Cardiology [address] [place] [address] Nonspecific abnormal electrocardiogram (ECG) (EKG) [R94.31] Cardiology Comment on above: Nonspecific abnormal electrocardiogram ( ECG) (EKG) [R94.31] Start: 11-10-2024 End: 11-10-2024 ambulatory 11/10/2024 8:30 AM EDT Infusion Center Hematology/Oncology [address] [place] [address] 2ND IRON SUCROSE/2-5* Hematology/Oncolog y Comment on above: 2ND IRON SUCROSE/2-5* Start: 11-08-2024 End: 11-08-2024 ambulatory 11/08/2024 11:30 AM EDT Infusion Center Hematology/Oncology [address] [place] [address] 2ND IRON SUCROSE/1-5* Hematology/Oncolog y Comment on above: 2ND IRON SUCROSE/1-5* Start: 10-29-2024 End: 01-28-2025 COPPER BLOOD [facility] Comment on above: Expected: 10/29/2024, Expires: Start: 10-29-2024 End: 01-28-2025 Erythropoietin (EPO) [Units/volume] in Serum or Plasma [facility] Comment on above: Expected: 10/29/2024, Expires: Start: 10-29-2024 End: 01-28-2025 Ferritin [Mass/volume] in Serum or Plasma [facility] Comment on above: Expected: 10/29/2024, Expires: Start: 10-29-2024 End: 01-28-2025 HIGH SENSITIVITY TROPONIN T [facility] Comment on above: Expected: 10/29/2024, Expires: Start: 10-29-2024 End: 01-28-2025 Iron and Iron binding capacity panel - Serum or Plasma [facility] Comment on above: Expected: 10/29/2024, Expires: Start: 10-29-2024 End: 01-28-2025 [id number] MUTATION ANALYSIS [facility] Comment on above: Expected: 10/29/2024, Expires: Start: 10-29-2024 End: 01-28-2025 Natriuretic peptide.B prohormone N-Terminal [Mass/volume] in Serum or Plasma [facility] Comment on above: Expected: 10/29/2024, Expires: Start: 10-29-2024 End: 10-29-2024 ambulatory 10/29/2024 10:00 AM EDT Visit (SP) Office Hematology/Oncology [address] [place] [id number] Rj Dempsey DO [address] [place] [address] 2WK-labs 09/24*3wk per patient on vac then schedule is full Hematology/Oncolog y Comment on above: 2WK-labs 09/24*3wk per patient on vac then schedule is full Start: 10-25-2024 [facility] Start: 10-22-2024 End: 10-22-2024 ambulatory 10/22/2024 8:20 AM EDT Visit (SP) Office Hematology/Oncology [address] [place] [address] Rj Dempsey DO [address] [place] [address] 2WK-labs 09/24*3wk per patient on vac then schedule is full Hematology/Oncolog y Comment on above: 2WK-labs 09/24*3wk per patient on vac then schedule is full Start: 10-21-2024 Hemoglobin A1c measurement HbA1C [facility] Start: 10-20-2024 Annual PCP Team Chronic Disease Visit Annual PCP Team Chronic Disease Visit [facility] Start: 10-07-2024 BP Controlled (<130/80) BP Controlled (<130/80) [facility] Start: 10-01-2024 End: 10-01-2024 Patient encounter procedure 10/01/2024 10:00 AM EDT Appointment Radiology [address] [place] [address] Incomplete emptying of bladder [R33.9] Radiology Comment on above: Incomplete emptying of bladder [R33.9] Start: 09-30-2024 End: 09-30-2024 Patient encounter procedure 09/30/2024 10:15 AM EDT Office Visit Podiatry [address] [place] [address] Tom Bolaños [address] [place] [address] 3 month follow up nail care Podiatry Comment on above: 3 month follow up nail care Start: 09-28-2024 End: 09-28-2024 Patient encounter procedure 09/28/2024 11:00 AM EDT Office Visit Podiatry [address] [place], [place] [id number] Tom Bolaños [address] [place] [address] 3 month follow up nail care Podiatry Comment on above: 3 month follow up nail care Start: 09-24-2024 End: 12-24-2024 GANGLIOSIDE ANTIBODIES [facility] Comment on above: Expected: 09/24/2024, Expires: Start: 09-24-2024 End: 12-24-2024 MAG IGM & SGPG IGM [facility] Comment on above: Expected: 09/24/2024, Expires: Start: 09-24-2024 End: 12-24-2024 SERUM VISCOSITY [facility] Comment on above: Expected: 09/24/2024, Expires: Start: 09-24-2024 End: 12-24-2024 Transferrin receptor.soluble [Mass/volume] in Serum or Plasma [facility] Work Phone: Comment on above: Expected: 09/24/2024, Expires: Start: 09-24-2024 End: 09-24-2024 ambulatory 09/24/2024 11:30 AM EDT Visit (SP) Office Hematology/Oncology [address] [place], [place] [id number] Gavi Ureña [address] [place] [address] 2WK OV*THIS DATE PER PATIENT Hematology/Oncolog y Comment on above: 2WK OV*THIS DATE PER PATIENT Start: 09-21-2024 End: 12-21-2024 Amylase [Enzymatic activity/volume] in Serum or Plasma [facility] Comment on above: Expected: 09/21/2024, Expires: Start: 09-21-2024 End: 12-21-2024 Comprehensive metabolic 2000 panel - Serum or Plasma [facility] Work Phone: Comment on above: Expected: 09/21/2024, Expires: Start: 09-21-2024 End: 12-21-2024 Lipase [Enzymatic activity/volume] in Serum or Plasma [facility] Comment on above: Expected: 09/21/2024, Expires: Start: 09-21-2024 End: 09-21-2024 Patient encounter procedure 09/21/2024 10:40 AM EDT Office Visit Internal Medicine [place] [address] [facility] [place] [address] Silvestre Jain APRN.DIRECTOR [facility] [address] [place] [address] Abdominal pain. See triage. [facility] Medicine [place] Comment on above: Abdominal pain. See triage. Start: 09-19-2024 Screening for malignant neoplasm of colon Colorectal Cancer Screening [facility] Start: 09-13-2024 End: 09-13-2024 Patient encounter procedure 09/13/2024 8:30 AM EDT Appointment Radiology [address] [place] [address] Incomplete emptying of bladder [R33.9] Radiology Comment on above: Incomplete emptying of bladder [R33.9] Start: 09-06-2024 End: 09-06-2024 Patient encounter procedure 09/06/2024 10:45 AM EDT Appointment Radiology [address] [place] [address] Incomplete emptying of bladder [R33.9] Radiology Comment on above: Incomplete emptying of bladder [R33.9] Start: 08-26-2024 Annual PCP Team Chronic Disease Visit Annual PCP Team Chronic Disease Visit [facility] Start: 08-24-2024 End: 11-23-2024 COPPER BLOOD [facility] Work Phone: Comment on above: Expected: 08/24/2024 (Approximate), Expi res: 11/23/2024 Start: 08-24-2024 End: 11-23-2024 Methylmalonate [Moles/volume] in Serum or Plasma [facility] Comment on above: Expected: 08/24/2024 (Approximate), Expi res: 11/23/2024 Start: 08-24-2024 End: 11-23-2024 MONOCLONAL PROTEIN, SERUM (BLOOD) [facility] Comment on above: Expected: 08/24/2024, Expires: Start: 08-24-2024 End: 11-23-2024 PROTEIN ELECTROPHORESIS SERUM W/INTERP [facility] Comment on above: Expected: 08/24/2024 (Approximate), Expi res: 11/23/2024 Start: 08-24-2024 End: 11-23-2024 Zinc [Mass/volume] in Serum or Plasma [facility] Comment on above: Expected: 08/24/2024 (Approximate), Expi res: 11/23/2024 Start: 08-24-2024 End: 08-24-2024 ambulatory 08/24/2024 10:30 AM EDT Visit (SP) Office Hematology/Oncology [address], [place] [id number] Gavi Ureña [address] [place] [address] OFFICE SERVICE COORDINATOR/IRON DEF ANEMIA/REF PROV SILVESTRE JAIN* Hematology/Oncolog y Comment on above: OFFICE SERVICE COORDINATOR/IRON DEF ANEMIA/REF PROV SILVESTRE JAIN * Start: 08-20-2024 End: 08-20-2024 ambulatory 08/20/2024 10:00 AM EDT [facility] [address] [address] Mirtha Elder APRN.DIRECTOR [facility] [address] [place] [address] Incomplete emptying of bladder Urology Comment on above: Incomplete emptying of bladder Start: 08-16-2024 End: 08-16-2024 Patient encounter procedure 08/16/2024 10:00 AM EDT Office Visit Internal Medicine [place] [address] [place] [address] Silvestre Jain APRN.DIRECTOR [facility] [address] [place], [place] [address] 3 month follow up Internal Medicine [place] Comment on above: 3 month follow up Start: 06-14-2024 End: 06-14-2024 Nutrition therapy 06/14/2024 12:15 PM EDT [facility] Nutrition Therapy [address] [place] [address] [place] [address] Class 3 severe obesity due to excess calories with body mass index (BMI) of 45.0... Nutrition Therapy Comment on above: Class 3 severe obesity due to excess kev ories with body mass index (BMI) of 45.0... Start: 05-24-2024 End: 05-24-2025 US Pelvis PELVIC US [facility] Anc Imaging Routine Pelvic pain Expected: 05/24/2024, Expires: 05/24/2025 [facility] Work Phone: Comment on above: Expected: 05/24/2024, Expires: Start: 05-24-2024 End: 05-24-2024 Nutrition therapy 05/24/2024 12:15 PM EDT [facility] Nutrition Therapy [address] [place] [address] [place] [address] Class 3 severe obesity due to excess calories with body mass index (BMI) of 45.0... Nutrition Therapy Comment on above: Class 3 severe obesity due to excess kev ories with body mass index (BMI) of 45.0... Start: 05-22-2024 Annual PCP Team Chronic Disease Visit Annual PCP Team Chronic Disease Visit [facility] Start: 05-22-2024 Complete blood count Hemoglobin/Hematocrit [facility] Start: 05-22-2024 Covid-19 Vaccine () Covid-19 Vaccine () [facility] Comment on above: Postponed from 10/25/2022 (Declined at t his time) Start: 05-22-2024 Covid-19 Vaccine () Covid-19 Vaccine () [facility] Comment on above: Postponed from 10/25/2022 (Declined at t his time) Start: 05-22-2024 Creatinine measurement Serum Creatinine [facility] Start: 05-22-2024 Hepatitis B surface antibody level LDL Cholesterol [facility] Start: 05-21-2024 End: 05-21-2024 Manual pelvic examination 05/21/2024 10:00 AM EDT Procedure OB/Gynecology [address] [place] [address] 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, 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[employer] [employer] [address] [place] [address] Pelvic pain [R10.2] OB/Gynecology Comment on above: Pelvic pain [R10.2] Start: 05-07-2024 End: 05-07-2025 US Pelvis PELVIC US [facility]I Anc Imaging Routine Pelvic pain Expected: 05/07/2024, Expires: 05/07/2025 [facility] Work Phone: Comment on above: Expected: 05/07/2024, Expires: Start: 05-07-2024 End: 05-07-2024 Patient encounter procedure 05/07/2024 9:20 AM EDT Office Visit Internal Medicine [place] [address] [facility] [place] [address] Silvestre Jain APRN.[facility]OR [facility] [address] [place] [address] discuss her weight; resume discussion from last OV with this provider [facility] [place] Comment on above: discuss her weight; resume discussion fr om last OV with this provider Start: 05-03-2024 End: 05-03-2024 Nutrition therapy 05/03/2024 12:15 PM EDT Education Nutrition Therapy [address] [facility] [place] [address] Britney Anderson, RD [address] [place] [address] Class 3 severe obesity due to excess calories with body mass index (BMI) of 45.0... Nutrition Therapy Comment on above: Class 3 severe obesity due to excess kev ories with body mass index (BMI) of 45.0... Start: 04-23-2024 End: 04-23-2024 Patient encounter procedure 04/23/2024 10:15 AM EST Office Visit Podiatry [address] [place] [address] Tom Bolaños [address] [address] 3 month follow up for nailcare Podiatry Comment on above: 3 month follow up for nailcare Start: 04-17-2024 End: 04-17-2024 ambulatory 04/17/2024 11:40 AM EST [facility] Internal Medicine [place] [address] [place] [address] Erica Cannon MD [address] [place] [address] 3 mth f/u (r/s 03/16/24)- Internal Medicine [place] Comment on above: 3 mth f/u (r/s 03/16/24)- Start: 04-14-2024 Annual PCP Team Chronic Disease Visit Annual PCP Team Chronic Disease Visit [facility] Start: 04-10-2024 End: 04-10-2024 [facility] 04/10/2024 11:00 AM EST [facility] Internal Medicine [place] [address] [place] [address] Erica Cannon MD [address] [place] [address] 3 mth f/u (r/s 03/16/24)-[facility] [place] Comment on above: 3 mth f/u (r/s 03/16/24)-needs refill on [facility] Start: 04-02-2024 End: 04-02-2024 Patient encounter procedure 04/02/2024 11:30 AM EST Office Visit Podiatry [address] [place] [address] Tom Bolaños [address] [address] 3 month follow up for nailcare Podiatry Comment on above: 3 month follow up for nailcare Start: 03-26-2024 End: 06-25-2024 Bacteria identified in Urine by Culture BACTERIAL CULTURE, URINE Microbiology Routine Dysuria Expected: 03/26/2024, Expires: 06/25/2024 [facility] Comment on above: Expected: 03/26/2024, Expires: Start: 03-26-2024 End: 06-25-2024 Urinalysis complete panel - Urine URINALYSIS, WITH MICROSCOPIC Lab Routine Dysuria Expected: 03/26/2024, Expires: 06/25/2024 [facility] Work Phone: Comment on above: Expected: 03/26/2024, Expires: Start: 03-26-2024 End: 03-26-2024 ambulatory [facility] [place] Comment on above: 3 mth f/u (r/s 03/16/24) 3 mth f/u (r/s )-needs refill on [employer] Start: 03-22-2024 End: 03-22-2024 Patient encounter procedure 03/22/2024 9:45 AM EST Office Visit Podiatry [address] [place] [address] Tom Bolaños [address] [address] 3 month follow up for nailcare Podiatry Comment on above: 3 month follow up for nailcare Start: 03-18-2024 End: 06-17-2024 Bacteria identified in Urine by Culture BACTERIAL CULTURE, URINE Microbiology Routine Dysuria Expected: 03/18/2024 (Approximate), Expires: 06/17/2024 [facility] Comment on above: Expected: 03/18/2024 (Approximate), Expi res: 06/17/2024 Start: 03-18-2024 End: 06-17-2024 URINALYSIS, REFLEX MICROSCOPIC URINALYSIS, REFLEX MICROSCOPIC Lab Routine Dysuria Expected: 03/18/2024 (Approximate), Expires: 06/17/2024 [facility] Work Phone: Comment on above: Expected: 03/18/2024 (Approximate), Expi res: 06/17/2024 Start: 03-16-2024 End: 03-16-2024 Patient encounter procedure 03/16/2024 10:00 AM EST Office Visit Internal Medicine [place] [address] [place], [place] [address] Erica Cannon MD [address] [place] [address] 3 month follow up [facility] [place] Comment on above: 3 month follow up Start: 03-04-2024 End: 03-04-2024 Patient encounter procedure 03/04/2024 8:15 AM EST Office Visit Podiatry [address] [place] [address] Tom Bolaños [address] [address] 3 month follow up for nailcare Podiatry Comment on above: 3 month follow up for nailcare Start: 02-29-2024 Annual PCP Team Chronic Disease Visit Annual PCP Team Chronic Disease Visit [facility] Start: 02-21-2024 End: 05-22-2024 Bacteria identified in Urine by Culture URINE CULTURE Microbiology Routine UTI symptoms Expected: 02/21/2024, Expires: 05/22/2024 [facility] Comment on above: Expected: 02/21/2024, Expires: Start: 02-21-2024 End: 05-22-2024 Urinalysis complete panel - Urine URINALYSIS, WITH MICROSCOPIC Lab Routine UTI symptoms Expected: 02/21/2024, Expires: 05/22/2024 [facility] Work Phone: Comment on above: Expected: 02/21/2024, Expires: Start: 01-27-2024 Hzv zoster vacc recombinant adjuvanted im njx ZOSTER VACCINE, RECOMBINANT (SHINGRIX) Immunization/Injection Routine Encounter for immunization Expected: 01/27/2024 [facility] Work Phone: Comment on above: Expected: 01/27/2024 Start: 01-23-2024 Shingrix Vaccine (2 of 2) Shingrix Vaccine (2 of 2) [facility] Start: 01-02-2024 Annual PCP Team Chronic Disease Visit Annual PCP Team Chronic Disease Visit [facility] Start: 01-02-2024 Complete blood count Hemoglobin/Hematocrit [facility] Start: 01-02-2024 Creatinine measurement Serum Creatinine [facility] Start: 01-02-2024 Hemoglobin/Hematocrit Hemoglobin/Hematocrit [facility] Start: 01-02-2024 Serum Creatinine Serum Creatinine [facility] Start: 12-09-2023 End: 12-09-2023 Patient encounter procedure 12/09/2023 11:30 AM EDT Office Visit Podiatry [address] [place], [place] [id number] Tom Bolaños [address] [facility] [address] 3 month follow up for nailcare Podiatry Comment on above: 3 month follow up for nailcare Start: 12-09-2023 End: 12-09-2023 Patient encounter procedure Cat Scan Comment on above: Left lower quadrant abdominal pain [R10. 32] Start: 12-07-2023 Serum Creatinine Serum Creatinine [facility] Start: 12-05-2023 End: 12-05-2023 Patient encounter procedure Cat Scan Comment on above: Left lower quadrant abdominal pain [R10. 32] Start: 11-29-2023 Annual PCP Team Chronic Disease Visit Annual PCP Team Chronic Disease Visit [facility] Start: 11-28-2023 End: 11-28-2023 Patient encounter procedure 11/28/2023 1:00 PM EDT Office Visit Internal Medicine [place] [address] [place], [place] [id number] Silvestre Jain APRN.[facility]OR [facility] [address] [place] [address] 3 month follow up Internal Medicine [place] Comment on above: 3 month follow up Start: 11-28-2023 End: 11-28-2023 ambulatory 11/28/2023 11:15 AM EDT Procedure PULM LAB [facility] [address] [place] [address] Wstr, Pulm Lab [facility]ly [facility] [address] [place] [address] Pulmonary hypertension (HCC) [I27.20]; On supplemental oxygen therapy [Z99.81]; Hypoxia [R09.02] [facility] Comment on above: Pulmonary hypertension (HCC) [I27.20]; O n supplemental oxygen therapy [Z99.81]; Hypoxia [R09.02] Start: 11-25-2023 End: 11-25-2023 Patient encounter procedure 11/25/2023 8:20 AM EDT Office Visit Internal Medicine [place] [address] [facility] [place] [address] Erica Cannon MD [address] [facility] [address] 6 minute walk test for oxygen [facility] [place] Comment on above: 6 minute walk test for oxygen Start: 11-23-2023 Hemoglobin A1c measurement HbA1C [facility] Start: 11-13-2023 Glaucoma screening Dilated Retinal Exam [facility] Start: 11-13-2023 Hepatitis C antibody, confirmatory test Dilated Retinal Exam [facility] Start: 11-13-2023 End: 11-13-2023 Patient encounter procedure 11/13/2023 9:30 AM EDT Office Visit Podiatry [address] [place] [address] Tom Bolaños [address] [address] 3 month follow up for nailcare Podiatry Comment on above: 3 month follow up for nailcare Start: 11-06-2023 Annual PCP Team Chronic Disease Visit Annual PCP Team Chronic Disease Visit [facility] Start: 11-06-2023 Hemoglobin/Hematocrit Hemoglobin/Hematocrit [facility] Start: 11-06-2023 Hepatitis B surface antibody level LDL Cholesterol [facility] Start: 11-06-2023 Serum Creatinine Serum Creatinine [facility] Start: 11-05-2023 End: 11-05-2023 Patient encounter procedure 11/05/2023 11:00 AM EDT Office Visit Internal Medicine [place] [address] [place], [place] [address] Silvestre Jain APRN.[facility] [address] [place], [place] [address] 6 minute walk test for oxygen [facility] [place] Comment on above: 6 minute walk test for oxygen Start: 10-26-2023 Covid-19 Vaccine ( season) Covid-19 Vaccine () [facility] Start: 10-26-2023 Covid-19 Vaccine () Covid-19 Vaccine () [facility] Start: 10-26-2023 Influenza vaccination [facility] Start: 10-24-2023 3 comp foot exam completed Diabetic Foot Exam [facility] Start: 10-24-2023 Diabetic foot examination Diabetic Foot Exam [facility] Start: 10-21-2023 End: 10-21-2023 Patient encounter procedure 10/21/2023 11:00 AM EDT Office Visit [facility] Medicine [place] [address] [place] [id number] Silvestre Jain APRN.[facility] [address] [place], [place] [phone] infected tooth [facility] [place] Comment on above: infected tooth Start: 10-08-2023 End: 10-08-2023 Patient encounter procedure 10/08/2023 11:10 AM EDT Office Visit OB/Gynecology [address] [place], [place] [id number] Jame Castañeda MD [address] [place], [place] [address] annual - pap OB/Gynecology Comment on above: annual - pap Start: 09-22-2023 End: 09-22-2023 Patient encounter procedure [facility] Comment on above: diabetes consult-colonoscopy Start: 09-11-2023 End: 09-11-2023 Patient encounter procedure 09/11/2023 1:30 PM EDT Office Visit OB/Gynecology [address] [place] [address] Aggie Elkins APRN.[facility] [address] [place] [address] annual - pap OB/Gynecology Comment on above: annual - pap Start: 08-31-2023 SERUM CREATININE SERUM CREATININE [facility] Start: 08-27-2023 End: 08-27-2023 Patient encounter procedure 08/27/2023 1:40 PM EDT Office Visit Internal Medicine [place] [address] [facility] [place] [address] Silvestre Jain APRN.[facility] [address] [place] [address] [facility] ER follow up - diverticulitis 08/04/23; 3 month FU medication [facility] [place] Comment on above: [facility] ER follow up - diverticulitis 4; 3 month FU medication Start: 08-25-2023 End: 08-25-2023 Patient encounter procedure 08/25/2023 11:00 AM EDT Office Visit Internal Medicine [place] [address] [facility] [place] [address] Silvestre Jain APRN.[facility] [address] [place] [address] 3 month FU medication [facility] [place] Comment on above: 3 month FU medication Start: 08-22-2023 End: 08-22-2023 Patient encounter procedure 08/22/2023 2:40 PM EDT Office Visit Internal Medicine [place] [address] [facility] [place] [address] Silvestre Jain APRN.[facility] [address] [place] [address] [facility] ER follow up - diverticulitis 08/04/23 [facility] [place] Comment on above: [facility] ER follow up - diverticulitis 4 Start: 08-22-2023 ANNUAL PCP TEAM CHRONIC DISEASE VISIT ANNUAL PCP TEAM CHRONIC DISEASE VISIT [facility] Start: 08-22-2023 SERUM CREATININE SERUM CREATININE [facility] Start: 08-15-2023 End: 08-15-2023 Patient encounter procedure 08/15/2023 2:40 PM EDT Office Visit Internal Medicine [place] [address] [place], [place] [address] Silvestre Jain APRN.[facility] [address] [place] [address] [facility] ER follow up - diverticulitis 08/04/23 [facility] [place] Comment on above: [facility] ER follow up - diverticulitis 4 Start: 08-13-2023 ANNUAL PCP TEAM CHRONIC DISEASE VISIT ANNUAL PCP TEAM CHRONIC DISEASE VISIT [facility] Start: 08-13-2023 HEMOGLOBIN/HEMATOCRIT HEMOGLOBIN/HEMATOCRIT [facility] Start: 08-12-2023 End: 08-12-2023 Patient encounter procedure 08/12/2023 9:30 AM EDT Office Visit Podiatry [address] [place] [address] Tom Bolaños [address] [place] [address] 3 month follow up nail care Podiatry Comment on above: 3 month follow up nail care Start: 08-08-2023 BP CONTROLLED (<130/80) BP CONTROLLED (<130/80) [facility] Start: 07-30-2023 End: 07-30-2023 Patient encounter procedure 07/30/2023 1:00 PM EDT Office Visit OB/Gynecology [address] [place] [address] Leticia Crowe APRN.[facility] [address] [place] [address] annual - pap OB/Gynecology Comment on above: annual - pap Start: 07-04-2023 End: 10-03-2023 Lipid 1996 panel - Serum or Plasma LIPID PANEL BASIC Lab Routine Type 2 diabetes (HCC) Expected: 07/04/2023, Expires: 10/03/2023 [facility] Work Phone: Comment on above: Expected: 07/04/2023, Expires: Start: 06-30-2023 End: 06-30-2023 Patient encounter procedure 06/30/2023 11:00 AM EDT [facility] [address] [place] [address] ItaliaLeticia ramirez, [facility] [address] [place] [address] diabetes Pharm Med [facility] Comment on above: diabetes Start: 06-05-2023 Hepatitis C antibody, confirmatory test DILATED RETINAL EXAM [facility] Start: 06-04-2023 End: 09-03-2023 Comprehensive metabolic 2000 panel - Serum or Plasma COMPREHENSIVE METABOLIC PANEL Lab Routine Type 2 diabetes (HCC) Expected: 06/04/2023, Expires: 09/03/2023 [facility] Work Phone: Comment on above: Expected: 06/04/2023, Expires: Start: 05-22-2023 ANNUAL PCP TEAM CHRONIC DISEASE VISIT ANNUAL PCP TEAM CHRONIC DISEASE VISIT [facility] Start: 05-07-2023 End: 08-06-2023 CBC panel - Blood by Automated count CBC Lab Routine Iron deficiency anemia, unspecified iron deficiency anemia type Expected: 05/07/2023, Expires: 08/06/2023 [facility] Work Phone: Comment on above: Expected: 05/07/2023, Expires: Start: 05-07-2023 End: 08-06-2023 Hemoglobin A1c in Blood HGB A1C Lab Routine Type 2 diabetes (HCC) Expected: 05/07/2023, Expires: 08/06/2023 [facility] Work Phone: Comment on above: Expected: 05/07/2023, Expires: Start: 05-06-2023 Hemoglobin A1c measurement HbA1C [facility] Start: 05-06-2023 Hemoglobin A1c/Hemoglobin.total in Blood HbA1C [facility] Start: 04-23-2023 ANNUAL PCP TEAM CHRONIC DISEASE VISIT ANNUAL PCP TEAM CHRONIC DISEASE VISIT [facility] Start: 03-02-2023 Hemoglobin A1c/Hemoglobin.total in Blood HBA1C [facility] Start: 03-01-2023 End: 05-31-2023 ALBUMIN/CREAT RATIO RND UR ALBUMIN/CREAT RATIO RND UR Lab Routine Type 2 diabetes (HCC) Expected: 03/01/2023, Expires: 05/31/2023 [facility] Work Phone: Comment on above: Expected: 03/01/2023, Expires: 4 Start: 03-01-2023 End: 05-31-2023 Basic metabolic 2000 panel - Serum or Plasma BASIC METABOLIC PNL Lab Routine Type 2 diabetes (HCC) Expected: 03/01/2023, Expires: 05/31/2023 [facility] Work Phone: Comment on above: Expected: 03/01/2023, Expires: 4 Start: 02-15-2023 ANNUAL PCP TEAM CHRONIC DISEASE VISIT ANNUAL PCP TEAM CHRONIC DISEASE VISIT [facility] Start: 01-01-2023 End: 01-02-2024 PELVIC US WHI PELVIC US [facility] Anc Imaging Routine Pelvic pain Expected: 01/01/2023, Expires: 01/02/2024 [facility] Work Phone: Comment on above: Expected: 01/01/2023, Expires: 4 Start: 11-05-2022 End: 01-05-2023 25-hydroxyvitamin D3 [Mass/volume] in Serum or Plasma [facility] Work Phone: Comment on above: Expected: 11/05/2022, Expires: 3 Start: 11-05-2022 End: 01-05-2023 Comprehensive metabolic 2000 panel - Serum or Plasma [facility] Work Phone: Comment on above: Expected: 11/05/2022, Expires: 3 Start: 11-05-2022 End: 01-05-2023 Ferritin [Mass/volume] in Serum or Plasma [facility] Work Phone: Comment on above: Expected: 11/05/2022, Expires: 3 Start: 11-05-2022 End: 01-05-2023 Iron and Iron binding capacity panel - Serum or Plasma [facility] Work Phone: Comment on above: Expected: 11/05/2022, Expires: 3 Start: 11-05-2022 End: 01-05-2023 Lipid 1996 panel - Serum or Plasma [facility] Work Phone: Comment on above: Expected: 11/05/2022, Expires: 3 Start: 11-05-2022 End: 01-05-2023 Magnesium [Mass/volume] in Serum or Plasma [facility] Work Phone: Comment on above: Expected: 11/05/2022, Expires: 3 Start: 11-05-2022 End: 01-05-2023 Thyrotropin [Units/volume] in Serum or Plasma [facility] Work Phone: Comment on above: Expected: 11/05/2022, Expires: 3 Start: 10-25-2022 Covid-19 Vaccine () Covid-19 Vaccine () [facility] Start: 10-25-2022 Influenza vaccination INFLUENZA (#1) [facility] Start: 08-27-2022 Hemoglobin A1c/Hemoglobin.total in Blood HBA1C [facility] Start: 08-22-2022 [facility] Start: 08-21-2022 [facility] Start: 08-20-2022 [facility] Start: 08-19-2022 Patient discharge [facility] Start: 08-18-2022 [facility] Start: 08-17-2022 Referral to general surgeon [facility] Start: 08-17-2022 Removal of urinary catheter [facility] Start: 08-17-2022 [facility] Start: 08-16-2022 Referral to occupational therapist [facility] Start: 08-16-2022 Notification of physician [facility] Start: 08-16-2022 Care regimes management [facility] Start: 08-15-2022 End: 08-15-2022 Blood culture [facility] Start: 08-15-2022 [facility] Start: 08-15-2022 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 [facility] Start: 08-15-2022 Introduction of urinary catheter [facility] Start: 08-15-2022 Protein measurement [facility] Start: 08-15-2022 Referral to service [facility] Start: 08-14-2022 Ambulation without limitation [facility] Start: 08-14-2022 Assessment of risk of venous thromboembolism [facility] Start: 08-14-2022 Inhalation therapy procedure [facility] Start: 08-14-2022 Insertion of catheter into peripheral vein [facility] Start: 08-14-2022 Measuring intake and output [facility] Start: 08-14-2022 Oxygen therapy [facility] Start: 08-14-2022 Providing care according to standard [facility] Start: 08-14-2022 Provision of activity privileges [facility] Start: 08-14-2022 [facility] Start: 08-14-2022 Following clinical pathway protocol [facility] Start: 08-14-2022 Verification routine [facility] Start: 08-14-2022 Admission procedure [facility] Start: 08-14-2022 [facility] Start: 08-14-2022 Enteric precautions [facility] Start: 08-12-2022 End: 10-12-2022 Calprotectin [Mass/mass] in Stool [facility] Work Phone: Comment on above: Expected: 08/12/2022 (Approximate), Expi res: 10/12/2022 Start: 08-12-2022 End: 10-12-2022 Comprehensive metabolic 2000 panel - Serum or Plasma [facility] Work Phone: Comment on above: Expected: 08/12/2022, Expires: Start: 08-12-2022 End: 10-12-2022 ENTERIC BACTERIAL PANEL BY PCR [facility] Work Phone: Comment on above: Expected: 08/12/2022 (Approximate), Expi res: 10/12/2022 Start: 08-12-2022 End: 10-12-2022 Thyrotropin [Units/volume] in Serum or Plasma [facility] Work Phone: Comment on above: Expected: 08/12/2022, Expires: 3 Start: 08-07-2022 End: 08-08-2023 Echocardiography ECHO Cardiology Routine Pre-operative examination Expected: 08/07/2022, Expires: 08/08/2023 [facility] Work Phone: Comment on above: Expected: 08/07/2022, Expires: 4 Start: 07-07-2022 SERUM CREATININE SERUM CREATININE [facility] Start: 07-05-2022 ANNUAL PCP TEAM CHRONIC DISEASE VISIT ANNUAL PCP TEAM CHRONIC DISEASE VISIT [facility] Start: 05-16-2022 End: 07-16-2022 ALBUMIN/CREAT RATIO RND UR ALBUMIN/CREAT RATIO RND UR Lab Routine Type 2 diabetes (HCC) Hypertension, unspecified type Encounter for long-term current use of medication Expected: 05/16/2022, Expires: 07/16/2022 [facility] Work Phone: Comment on above: Expected: 05/16/2022, Expires: 3 Start: 05-16-2022 End: 07-16-2022 CBC panel - Blood by Automated count CBC Lab Routine Hypertension, unspecified type Encounter for long-term current use of medication Expected: 05/16/2022, Expires: 07/16/2022 [facility] Work Phone: Comment on above: Expected: 05/16/2022, Expires: 3 Start: 05-16-2022 End: 07-16-2022 Comprehensive metabolic 2000 panel - Serum or Plasma COMP METABOLIC PANEL Lab Routine Type 2 diabetes (HCC) Hypertension, unspecified type Encounter for long-term current use of medication Expected: 05/16/2022, Expires: 07/16/2022 [facility] Work Phone: Comment on above: Expected: 05/16/2022, Expires: Start: 05-16-2022 End: 07-16-2022 Ferritin [Mass/volume] in Serum or Plasma FERRITIN BLD Lab Routine Encounter for long-term current use of medication Low ferritin level Expected: 05/16/2022, Expires: 07/16/2022 [facility] Work Phone: Comment on above: Expected: 05/16/2022, Expires: Start: 05-16-2022 End: 07-16-2022 Hemoglobin A1c in Blood HGB A1C Lab Routine Type 2 diabetes (HCC) Encounter for long-term current use of medication Expected: 05/16/2022, Expires: 07/16/2022 [facility] Work Phone: Comment on above: Expected: 05/16/2022, Expires: Start: 05-16-2022 End: 07-16-2022 Iron and Iron binding capacity panel - Serum or Plasma IRON + TIBC Lab Routine Encounter for long-term current use of medication Low ferritin level Expected: 05/16/2022, Expires: 07/16/2022 [facility] Work Phone: Comment on above: Expected: 05/16/2022, Expires: Start: 05-16-2022 End: 07-16-2022 Lipid 1996 panel - Serum or Plasma LIPID PANEL BASIC Lab Routine Type 2 diabetes (HCC) Encounter for long-term current use of medication Expected: 05/16/2022, Expires: 07/16/2022 [facility] Work Phone: Comment on above: Expected: 05/16/2022, Expires: Start: 05-16-2022 End: 07-16-2022 LIPID PANEL, NONFASTING LIPID PANEL, NONFASTING Lab Routine Type 2 diabetes (HCC) Encounter for long-term current use of medication Expected: 05/16/2022, Expires: 07/16/2022 [facility] Work Phone: Comment on above: Expected: 05/16/2022, Expires: 3 Start: 05-16-2022 End: 07-16-2022 Magnesium [Mass/volume] in Serum or Plasma MAGNESIUM BLD Lab Routine Encounter for long-term current use of medication Expected: 05/16/2022, Expires: 07/16/2022 [facility] Work Phone: Comment on above: Expected: 05/16/2022, Expires: 3 Start: 05-14-2022 ANNUAL PCP TEAM CHRONIC DISEASE VISIT ANNUAL PCP TEAM CHRONIC DISEASE VISIT [facility] Start: 05-08-2022 End: 07-08-2022 Bacteria identified in Urine by Culture URINE CULTURE Microbiology Routine Dysuria Expected: 05/08/2022, Expires: 07/08/2022 [facility] Work Phone: Comment on above: Expected: 05/08/2022, Expires: 3 Start: 05-08-2022 End: 07-08-2022 Urinalysis complete panel - Urine URINALYSIS, WITH MICROSCOPIC Lab Routine Dysuria Expected: 05/08/2022, Expires: 07/08/2022 [facility] Work Phone: Comment on above: Expected: 05/08/2022, Expires: 3 Start: 04-30-2022 BP CONTROLLED (<130/80) BP CONTROLLED (<130/80) [facility] Start: 04-30-2022 Hepatitis B surface antibody level LDL CHOLESTEROL [facility] Start: 04-10-2022 Hepatitis C antibody, confirmatory test DILATED RETINAL EXAM [facility] Start: 02-20-2022 End: 04-22-2022 CBC panel - Blood by Automated count CBC Lab Routine Encounter for long-term current use of medication Expected: 02/20/2022 (Approximate), Expires: 04/22/2022 [facility] Work Phone: Comment on above: Expected: 02/20/2022 (Approximate), Expi res: 04/22/2022 Start: 02-20-2022 End: 04-22-2022 Comprehensive metabolic 2000 panel - Serum or Plasma COMP METABOLIC PANEL Lab Routine Type 2 diabetes (HCC) Encounter for long-term current use of medication Expected: 02/20/2022 (Approximate), Expires: 04/22/2022 [facility] Work Phone: Comment on above: Expected: 02/20/2022 (Approximate), Expi res: 04/22/2022 Start: 02-20-2022 End: 04-22-2022 Hemoglobin A1c in Blood HGB A1C Lab Routine Type 2 diabetes (HCC) Encounter for long-term current use of medication Expected: 02/20/2022 (Approximate), Expires: 04/22/2022 [facility] Work Phone: Comment on above: Expected: 02/20/2022 (Approximate), Expi res: 04/22/2022 Start: 02-20-2022 End: 04-22-2022 Magnesium [Mass/volume] in Serum or Plasma MAGNESIUM BLD Lab Routine Encounter for long-term current use of medication Expected: 02/20/2022 (Approximate), Expires: 04/22/2022 [facility] Work Phone: Comment on above: Expected: 02/20/2022 (Approximate), Expi res: 04/22/2022 Start: 01-17-2022 SHINGRIX VACCINE (1 of 2) SHINGRIX VACCINE (1 of 2) [facility] Comment on above: Postponed from 12/21/2009 (Declined at t his time) Start: 01-07-2022 Hemoglobin A1c/Hemoglobin.total in Blood HBA1C [facility] Start: 11-20-2021 Patient discharge [facility] Work Phone: Start: 11-20-2021 Removal of urinary catheter [facility] Work Phone: Start: 11-19-2021 Continuous pulse oximetry [facility] Work Phone: Start: 11-19-2021 Care planning and problem solving actions [facility] Work Phone: Start: 11-19-2021 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 [facility] Work Phone: Start: 11-19-2021 Continuous positive airway pressure ventilation treatment [facility] Work Phone: Start: 11-18-2021 End: 11-18-2021 Following clinical pathway protocol [facility] Work Phone: Start: 11-18-2021 [facility] Work Phone: Start: 11-18-2021 Application of intermittent pneumatic compression device [facility] Work Phone: Start: 11-18-2021 Assessment of risk of venous thromboembolism [facility] Work Phone: Start: 11-18-2021 Care regimes management [facility] Work Phone: Start: 11-18-2021 Consultation [facility] Work Phone: Start: 11-18-2021 Elevation of head of bed [facility] Work Phone: Start: 11-18-2021 Fall prevention [facility] Work Phone: Start: 11-18-2021 Incentive spirometry [facility] Work Phone: Start: 11-18-2021 Inhalation therapy procedure [facility] Work Phone: Start: 11-18-2021 Insertion of catheter into peripheral vein [facility] Work Phone: Start: 11-18-2021 Introduction of urinary catheter [facility] Work Phone: Start: 11-18-2021 Measuring intake and output [facility] Work Phone: Start: 11-18-2021 Oxygen therapy [facility] Work Phone: Start: 11-18-2021 Patient referral to dietitian [facility] Work Phone: Start: 11-18-2021 Providing care according to standard [facility] Work Phone: Start: 11-18-2021 Provision of activity privileges [facility] Work Phone: Start: 11-18-2021 Referral to occupational therapist [facility] Work Phone: Start: 11-18-2021 Referral to service [facility] Work Phone: Start: 11-18-2021 Vital signs measurements [facility] Work Phone: Start: 11-18-2021 [facility] Work Phone: Start: 11-18-2021 Verification routine [facility] Work Phone: Start: 11-18-2021 Admission procedure [facility] Work Phone: Start: 11-18-2021 End: 11-19-2021 [facility] Work Phone: Start: 11-18-2021 Patient referral to dietitian [facility] Work Phone: Start: 10-31-2021 Hemoglobin A1c/Hemoglobin.total in Blood HBA1C [facility] Start: 10-25-2021 Influenza vaccination [facility] Start: 08-16-2021 Patient discharge [facility] Work Phone: Start: 08-15-2021 [facility] Work Phone: Start: 08-14-2021 [facility] Work Phone: Start: 08-11-2021 [facility] Work Phone: Start: 08-08-2021 Care planning and problem solving actions [facility] Work Phone: Start: 08-08-2021 [facility] Work Phone: Start: 08-02-2021 Wound care [facility] Work Phone: Start: 08-01-2021 Catheterization of vein [facility] Work Phone: Start: 08-01-2021 [facility] Work Phone: Start: 08-01-2021 Speech therapy assessment [facility] Work Phone: Start: 08-01-2021 Consultation [facility] Work Phone: Start: 08-01-2021 Referral to gastroenterology service [facility] Work Phone: Start: 08-01-2021 [facility] Work Phone: Start: 08-01-2021 [facility] Start: 07-31-2021 Continuous pulse oximetry [facility] Work Phone: Start: 07-31-2021 Dual pressure spontaneous ventilation support [facility] Work Phone: Start: 07-31-2021 Consultation [facility] Work Phone: Start: 07-31-2021 Assessment of risk of venous thromboembolism [facility] Work Phone: Start: 07-31-2021 Care regimes management [facility] Work Phone: Start: 07-31-2021 Inhalation therapy procedure [facility] Work Phone: Start: 07-31-2021 Insertion of catheter into peripheral vein [facility] Work Phone: Start: 07-31-2021 Measuring intake and output [facility] Work Phone: Start: 07-31-2021 Oxygen therapy [facility] Work Phone: Start: 07-31-2021 Providing care according to standard [facility] Work Phone: Start: 07-31-2021 Provision of activity privileges [facility] Work Phone: Start: 07-31-2021 Referral to occupational therapist [facility] Work Phone: Start: 07-31-2021 Referral to service [facility] Work Phone: Start: 07-31-2021 [facility] Work Phone: Start: 07-31-2021 Following clinical pathway protocol [facility] Work Phone: Start: 07-31-2021 Admission procedure [facility] Work Phone: Start: 07-31-2021 Chart related administrative procedure [facility] Work Phone: Start: 07-05-2021 End: 09-04-2021 CBC panel - Blood by Automated count CBC Lab Routine Encounter for long-term current use of medication Primary hypertension Expected: 07/05/2021, Expires: 09/04/2021 [facility] Work Phone: Comment on above: Expected: 07/05/2021, Expires: 2 Start: 07-05-2021 End: 09-04-2021 Comprehensive metabolic 2000 panel - Serum or Plasma COMP METABOLIC PANEL Lab Routine Type 2 diabetes (HCC) Encounter for long-term current use of medication Primary hypertension Expected: 07/05/2021, Expires: 09/04/2021 [facility] Work Phone: Comment on above: Expected: 07/05/2021, Expires: 2 Start: 07-05-2021 End: 09-04-2021 FERRITIN BLD FERRITIN BLD Lab Routine Iron deficiency anemia, unspecified iron deficiency anemia type Expected: 07/05/2021, Expires: 09/04/2021 [facility] Work Phone: Comment on above: Expected: 07/05/2021, Expires: 2 Start: 07-05-2021 End: 09-04-2021 Folate [Mass/volume] in Serum or Plasma FOLATE SERUM Lab Routine Iron deficiency anemia, unspecified iron deficiency anemia type Expected: 07/05/2021, Expires: 09/04/2021 [facility] Work Phone: Comment on above: Expected: 07/05/2021, Expires: 2 Start: 07-05-2021 End: 09-04-2021 Hemoglobin A1c/Hemoglobin.total in Blood HGB A1C Lab Routine Type 2 diabetes (HCC) Expected: 07/05/2021, Expires: 09/04/2021 [facility] Work Phone: Comment on above: Expected: 07/05/2021, Expires: 2 Start: 07-05-2021 End: 09-04-2021 IRON + TIBC IRON + TIBC Lab Routine Iron deficiency anemia, unspecified iron deficiency anemia type Expected: 07/05/2021, Expires: 09/04/2021 [facility] Work Phone: Comment on above: Expected: 07/05/2021, Expires: 2 Start: 07-05-2021 End: 09-04-2021 Magnesium [Mass/volume] in Serum or Plasma MAGNESIUM BLD Lab Routine Encounter for long-term current use of medication Expected: 07/05/2021, Expires: 09/04/2021 [facility] Work Phone: Comment on above: Expected: 07/05/2021, Expires: 2 Start: 07-05-2021 End: 09-04-2021 VITAMIN B12 BLOOD VITAMIN B12 BLOOD Lab Routine Iron deficiency anemia, unspecified iron deficiency anemia type Expected: 07/05/2021, Expires: 09/04/2021 [facility] Work Phone: Comment on above: Expected: 07/05/2021, Expires: 2 Start: 06-13-2021 COVID-19 VACCINE (4 - Booster for Moderna series) COVID-19 VACCINE (4 - Booster for Moderna series) [facility] Start: 04-09-2021 COVID-19 VACCINE (4 - Booster for Moderna series) COVID-19 VACCINE (4 - Booster for Moderna series) [facility] Start: 04-09-2021 COVID-19 VACCINE (4 - Moderna series) COVID-19 VACCINE (4 - Moderna series) [facility] Start: 04-09-2021 Covid-19 Vaccine (6 - Mixed Product series) Covid-19 Vaccine (6 - Mixed Product series) [facility] Start: 01-29-2021 Colonoscopy COLONOSCOPY [facility] Start: 01-29-2021 COLORECTAL CANCER SCREENING COLORECTAL CANCER SCREENING [facility] Start: 01-29-2021 Screening for malignant neoplasm of colon [facility] Start: 11-05-2020 Hepatitis B screening URINE ALBUMIN:CREATININE RATIO [facility] Start: 10-25-2020 End: 10-25-2021 CBC panel - Blood by Automated count CBC Lab Routine Encounter for long-term current use of medication Diabetes with skin complication (HCC) Expected: 10/25/2020, Expires: 10/25/2021 [facility] Work Phone: Comment on above: Expected: 10/25/2020, Expires: 2 Start: 10-25-2020 End: 10-25-2021 Comprehensive metabolic 2000 panel - Serum or Plasma COMP METABOLIC PANEL Lab Routine Encounter for long-term current use of medication Diabetes with skin complication (HCC) Expected: 10/25/2020, Expires: 10/25/2021 [facility] Work Phone: Comment on above: Expected: 10/25/2020, Expires: 2 Start: 07-26-2020 3 comp foot exam completed DIABETIC FOOT EXAM [facility] Start: 03-30-2020 BP CONTROLLED (<130/80) BP CONTROLLED (<130/80) [facility] Start: 2019 RSV Vaccine (1 - 1-dose 60+ series) RSV Vaccine (1 - 1-dose 60+ series) [facility] Start: 2019 RSV Vaccine (1 - Risk 60-74 years 1-dose series) RSV Vaccine (1 - Risk 60-74 years 1-dose series) [facility] Start: 09-28-2019 HEPATITIS A (2 of 2 - Risk 2-dose series) HEPATITIS A (2 of 2 - Risk 2-dose series) [facility] Start: 09-28-2019 Hepatitis A Vaccine (2 of 2 - Risk 2-dose series) Hepatitis A Vaccine (2 of 2 - Risk 2-dose series) [facility] Start: 12-29-2018 HPV TESTING HPV TESTING [facility] Start: 12-29-2018 PAP TESTING PAP TESTING [facility] Start: 12-29-2018 Screening for malignant neoplasm of cervix [facility] Start: 11-27-2016 FECAL OCCULT BLOOD FECAL OCCULT BLOOD [facility] Start: 11-27-2016 Screening for malignant neoplasm of colon Fecal Occult Blood [facility] Start: 03-17-2014 TWO PNEUMOVAX 5 YEARS APART PRIOR TO AGE 65 (#2) TWO PNEUMOVAX 5 YEARS APART PRIOR TO AGE 65 (#2) [facility] Start: 05-22-2012 Mammography [facility] Start: 05-22-2012 Screening for malignant neoplasm of breast Mammogram Screening [facility] Start: 03-17-2010 PNEUMOCOCCAL (2 - PCV) PNEUMOCOCCAL (2 - PCV) [facility] Start: 12-21-2009 SHINGRIX VACCINE (1 of 2) SHINGRIX VACCINE (1 of 2) [facility] Start: 12-21-2004 COLOGUARD (FIT-DNA) COLOGUARD (FIT-DNA) [facility] Start: 12-21-[address] COLONOGRAPHY [facility] Start: 12-21-2004 Screening for malignant neoplasm of colon [facility] Start: 12-21-2004 SIGMOIDOSCOPY SIGMOIDOSCOPY [facility] Start: 12-21-1978 ADULT PREVNAR ADULT PREVNAR [facility] Start: 12-21-1978 ADULT PREVNAR-13 ADULT PREVNAR-13 [facility] Start: 12-21-1978 Urine microalbumin profile [facility] Start: 12-21-1977 HIV SCREENING [facility] Start: 12-21-1977 HIV screening HIV Screening [facility] BACH SCREENING TEST BACH SCREENI NG TEST Procedures Routine Concern about memory Ordered: 09/21/2024 [facility] Comment on above: Ordered: 09/21/2024 Bacteria identified in Blood by Culture Blood Culture [facility] Bacteria identified in Urine by Culture Urine Culture [facility] Bacteria identified in Urine by Culture BACTERIAL CULTURE, URINE Microbiology Routine Urinary frequency 06/23/2024 8:00 PM EDT [facility] Work Phone: Bacteria identified in Urine by Culture BACTERIAL CULTURE, URINE Microbiology Routine Dysuria Ordered: 07/18/2024 [facility] Work Phone: Comment on above: Ordered: 07/18/2024 Bacteria identified in Urine by Culture BACTERIAL CULTURE, URINE Microbiology Routine Dysuria 10/29/2024 8:28 AM EDT [facility] Work Phone: BSCAN OS (LEFT EYE) BSCAN OS (LE FT EYE) OPHT Imaging Routine Other vitreous opacities, left eye 06/04/2022 10:13 AM EDT [facility] Work Phone: C. difficile DNA Amplification C. difficile DNA Amplification [facility] Catecholamine measurement [facility] Clostridioides diffi cile DNA [Presence] in Unspecified specimen by CHRISTIANO with probe detection [facility] Clostridioides diffi cile toxin genes [Presence] in Stool by CHRISTIANO with probe detection C. DIFFICILE PCR Lab Routine Diarrhea, unspecified type Ordered: 06/24/2022 [facility] Work Phone: Comment on above: Ordered: 06/24/2022 End: 09-13-2023 Ct abdomen & pelvis w/o contrast material CT ABD/PEL WO IVCON Radiology STAT Nausea 1 Occurrences starting 08/14/2022 until 09/13/2023 [facility] Work Phone: Comment on above: 1 Occurrences starting 08/14/2022 until 09/13/2023 End: 12-05-2024 CT Abdomen and Pelvis WO contrast CT ABD/PEL WO IVCON Radiology Routine Left lower quadrant abdominal pain Diverticulitis 1 Occurrences starting 11/06/2023 until 12/05/2024 [facility] Work Phone: Comment on above: 1 Occurrences starting 11/06/2023 until 12/05/2024 End: 12-20-2024 CT Abdomen and Pelvis WO contrast CT ABD/PEL WO IVCON Radiology Routine Left lower quadrant abdominal pain 1 Occurrences starting 11/21/2023 until 12/20/2024 [facility] Comment on above: 1 Occurrences starting 11/21/2023 until 12/20/2024 End: 11-06-2024 DBT Breast - bilateral screening NITO SCREENING W NISHANT Radiology Routine Encounter for screening mammogram for breast cancer 1 Occurrences starting 10/08/2023 until 11/06/2024 [facility] Work Phone: Comment on above: 1 Occurrences starting 10/08/2023 until 11/06/2024 End: 10-14-2025 DBT Breast - bilateral screening NITO SCREENING W NISHANT Radiology Routine Encounter for screening mammogram for breast cancer 1 Occurrences starting 09/14/2024 until 10/14/2025 [facility] Work Phone: Comment on above: 1 Occurrences starting 09/14/2024 until 10/14/2025 End: 10-29-2025 ECG COMPLETE ECG COMPLETE ECG Routine Anemia, unspecified type IgM monoclonal gammopathy of uncertain significance 1 Occurrences starting 10/29/2024 until 10/29/2025 [facility] Comment on above: 1 Occurrences starting 10/29/2024 until 10/29/2025 End: 11-01-2025 Echocardiography ECHO Cardiology Routine Nonspecific abnormal electrocardiogram (ECG) (EKG) IgM lambda paraproteinemia Elevated brain natriuretic peptide (BNP) level 1 Occurrences starting 11/01/2024 until 11/01/2025 [facility] Work Phone: Comment on above: 1 Occurrences starting 11/01/2024 until 11/01/2025 ENTERIC BACTERIAL PA TOMMY BY PCR ENTERIC BACTERIAL PANEL BY PCR Lab Routine Diarrhea, unspecified type Ordered: 06/24/2022 [facility] Work Phone: Comment on above: Ordered: 06/24/2022 Enteric Bacteriology Enteric Bacteriology [facility] Gastrointestinal pat hogens panel - Stool by CHRISTIANO with probe detection [facility] Helicobacter pylori Ag [Presence] in Stool by Immunoassay H PYLORI AG BY EIA,STOOL Microbiology Routine Diarrhea, unspecified type Ordered: 06/24/2022 [facility] Work Phone: Comment on above: Ordered: 06/24/2022 Hematocrit [Volume Fraction] of Blood [facility] Work Phone: Hemoglobin [Mass/vol ume] in Blood [facility] Work Phone: Hemoglobin.gastroint estina l.lower [Presence] in Stool by Immunoassay IMMUNOCHEMICAL FECAL OCCULT BLOOD TEST Lab Routine Iron deficiency anemia, unspecified iron deficiency anemia type Ordered: 08/18/2024 [facility] Work Phone: Comment on above: Ordered: 08/18/2024 Leukocytes [#/volume ] in Blood [facility] Work Phone: End: 10-25-2021 Magnesium [Mass/volume] in Serum or Plasma MAGNESIUM BLD Lab Routine Encounter for long-term current use of medication Diabetes with skin complication (HCC) 1 Occurrences starting 10/25/2020 until 10/25/2021 [facility] Work Phone: Comment on above: 1 Occurrences starting 10/25/2020 until 10/25/2021 Mean corpuscular hemoglobin concentration determination [facility] Work Phone: Mean corpuscular hemoglobin determination [facility] Work Phone: End: 08-07-2024 MG Breast Screening NITO SCREENING Radiology Routine Encounter for screening mammogram for breast cancer 1 Occurrences starting 07/09/2023 until 08/07/2024 [facility] Work Phone: Comment on above: 1 Occurrences starting 07/09/2023 until 08/07/2024 MONOCLONAL PROT 24 U R W/INTERP MONOCLONAL PROT 24 UR W/INTERP Lab Routine 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 Low iron Ordered: 09/24/2024 [facility] Comment on above: Ordered: 09/24/2024 MONOCLONAL PROT 24 U R W/INTERP MONOCLONAL PROT 24 UR W/INTERP Lab Routine Anemia, unspecified type IgM monoclonal gammopathy of uncertain significance Ordered: 10/29/2024 [facility] Comment on above: Ordered: 10/29/2024 Neutrophil count [facility] Work Phone: Neutrophil percent differential count [facility] Work Phone: End: 08-16-2022 Non-invasive physiologic study extremity 3 levls US ARTERIAL PVR LOWER Radiology Routine Peripheral vascular disease, unspecified (HCC) 1 Occurrences starting 07/17/2021 until 08/16/2022 [facility] Work Phone: Comment on above: 1 Occurrences starting 07/17/2021 until 08/16/2022 Ova and Parasites Ova and Parasites [facility] Ova and parasites identified in Unspecified specimen by Light microscopy [facility] Ova and parasites identified in Unspecified specimen by Light microscopy [facility] End: 12-20-2024 OXIMETRY WITH AMBULATION OXIMETRY WITH AMBULATION PFT Routine Pulmonary hypertension (HCC) On supplemental oxygen therapy Hypoxia 1 Occurrences starting 11/21/2023 until 12/20/2024 [facility] Work Phone: Comment on above: 1 Occurrences starting 11/21/2023 until 12/20/2024 End: 10-08-2025 OXIMETRY WITH AMBULATION OXIMETRY WITH AMBULATION PFT Routine Moderate persistent asthma without complication (HCC) Hypoxia 1 Occurrences starting 09/13/2024 until 10/08/2025 [facility] Work Phone: Comment on above: 1 Occurrences starting 09/13/2024 until 10/08/2025 End: 10-25-2021 PAIN PANEL, UR QUANT PAIN PANEL, UR QUANT Lab Routine Encounter for long-term current use of medication Diabetes with skin complication (HCC) Every 4 months for 4 Occurrences starting 10/25/2020 until 10/25/2021 [facility] Work Phone: Comment on above: Every 4 months for 4 Occurrences startin g 10/25/2020 until 10/25/2021 PAP TEST PAP TEST Lab [place] curiel Encounter for gynecological examination (general) (routine) without abnormal findings Encounter for screening for human papillomavirus (HPV) Pap smear for cervical cancer screening Ordered: 10/08/2023 [facility] Comment on above: Ordered: 10/08/2023 Patient Education ED Hematoma [facility] Work Phone: Patient referral [facility] Work Phone: Platelets [#/volume] in Blood [facility] Work Phone: PROT ELEC UR 24HR W/ M SPIKE (P) PROT ELEC UR 24HR W/M SPIKE (P) Lab Routine 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 Low iron Ordered: 09/24/2024 [facility] Comment on above: Ordered: 09/24/2024 PROT ELEC UR 24HR W/ M SPIKE (P) PROT ELEC UR 24HR W/M SPIKE (P) Lab Routine Anemia, unspecified type IgM monoclonal gammopathy of uncertain significance Ordered: 10/29/2024 [facility] Comment on above: Ordered: 10/29/2024 PROT ELEC UR 24HR W/ M SPIKE AND INTERP PROT ELEC UR 24HR W/M SPIKE AND INTERP Lab Routine 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 Low iron Ordered: 09/24/2024 [facility] Comment on above: Ordered: 09/24/2024 PROT ELEC UR 24HR W/ M SPIKE AND INTERP PROT ELEC UR 24HR W/M SPIKE AND INTERP Lab Routine Anemia, unspecified type IgM monoclonal gammopathy of uncertain significance Ordered: 10/29/2024 [facility] Work Phone: Comment on above: Ordered: 10/29/2024 Protein [Mass/time] in 24 hour Urine PROTEIN, 24 HOUR URINE Lab Routine 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 Low iron Ordered: 09/24/2024 [facility] Comment on above: Ordered: 09/24/2024 Protein [Mass/time] in 24 hour Urine PROTEIN, 24 HOUR URINE Lab Routine Anemia, unspecified type IgM monoclonal gammopathy of uncertain significance Ordered: 10/29/2024 [facility] Comment on above: Ordered: 10/29/2024 Red blood cell count [facility] Work Phone: Red cell distributio n width determination [facility] Work Phone: End: 09-21-2022 Screening mammography bi 2-view breast inc cad NITO SCREENING Radiology Routine Encounter for screening mammogram for breast cancer 1 Occurrences starting 08/22/2021 until 09/21/2022 [facility] Work Phone: Comment on above: 1 Occurrences starting 08/22/2021 until 09/21/2022 End: 12-04-2024 SIX MINUTE WALK SIX MINUTE WALK PFT Routine Moderate persistent asthma without complication On supplemental oxygen therapy Obstructive sleep apnea Pulmonary hypertension (HCC) 1 Occurrences starting 11/05/2023 until 12/04/2024 [facility] Work Phone: Comment on above: 1 Occurrences starting 11/05/2023 until 12/04/2024 End: 10-25-2021 TOX SCREEN ROUT UR TOX SCREEN ROUT UR Lab Routine Encounter for long-term current use of medication Diabetes with skin complication (HCC) Every 4 months for 4 Occurrences starting 10/25/2020 until 10/25/2021 [facility] Work Phone: Comment on above: Every 4 months for 4 Occurrences startin g 10/25/2020 until 10/25/2021 End: 08-27-2025 US Kidney - bilateral and Urinary bladder US KIDNEY/BLADDER Radiology Routine Incomplete emptying of bladder 1 Occurrences starting 07/28/2024 until 08/27/2025 [facility] Work Phone: Comment on above: 1 Occurrences starting 07/28/2024 until 08/27/2025 End: 08-25-2022 XR KNEE GENERAL 4V AP BOTH/PA BOTH/LAT/MERC BILATERAL XR KNEE GENERAL 4V AP BOTH/PA BOTH/LAT/MERC BILATERAL Radiology Routine Pain in both knees, unspecified chronicity 1 Occurrences starting 07/26/2021 until 08/25/2022 [facility] Work Phone: Comment on above: 1 Occurrences starting 07/26/2021 until 08/25/[address] [facility] Immunizations Immunization Date Immunization Notes Care Provider Cristino [facility] 11-28-2023 influenza, seasonal, injectable Pulm Wstr Work Phone: [facility] 11-28-2023 zoster vaccine recombinant Pulm Wstr Work Phone: [facility] 11-28-2023 influenza virus vacc ine, unspecified formulation Gavi Ureña Work Phone: [facility] 11-05-2022 influenza, injectabl e, quadrivalent, contains preservative Silvestre Susy [employer] Work Phone: [facility] Work Phone: 11-05-2022 pneumococcal (PCV20) vaccine, 20 valent (PREVNAR 20) Silvestre Susy [employer] Work Phone: [facility] Work Phone: 11-05-2022 pneumococcal Conjuga te, unspecified formulation Silvestre Susy [employer] Work Phone: [facility] Work Phone: 11-05-2022 influenza virus vacc ine, unspecified formulation Silvestre Susy [employer] Work Phone: [facility] 12-07-2021 influenza, seasonal, injectable Silvestre Susy [employer] Work Phone: [facility] Work Phone: 11-20-2021 tuberculin skin test ; purified protein derivative solution, intradermal Erica Cannon MD Work Phone: [facility] 11-19-2021 influenza, injectabl e, quadrivalent, preservative free Silvestre Susy [employer] Work Phone: [facility] 11-19-2021 influenza, seasonal, injectable Dr. Erica Cannon Work Phone: [facility] 08-26-2021 tuberculin skin test ; purified protein derivative solution, intradermal Erica Cannon MD Work Phone: [facility] 08-16-2021 tuberculin skin test ; purified protein derivative solution, intradermal Erica Cannon MD Work Phone: [facility] 02-12-2021 Covid (Moderna) Dr. Erica zimmer Work Phone: [facility] 05-25-2020 COVID-19 original vaccine, age 6 yr - 11 yr, monovalent (MODERNA) Silvestre Susy [employer] Work Phone: [facility] 05-25-2020 COVID-19 vaccine, fu ll dose (MODERNA); Translations: [Moderna COVID-19 Vaccine] Erica Cannon MD Work Phone: [facility] Work Phone: 05-25-2020 COVID-19 vaccine, unspecified formulation Silvestre Jain [employer] Work Phone: [facility] Work Phone: 04-28-2020 COVID-19 vaccine, booster dose (SANOFI) Silvestre Jain [employer] Work Phone: [facility] 04-28-2020 COVID-19 vaccine, fu ll dose (MODERNA); Translations: [Moderna COVID-19 Vaccine] Erica Cannon MD Work Phone: [facility] Work Phone: Comment on above: Result Comment: Give n by [employer] student 04-28-2020 COVID-19 vaccine, unspecified formulation Silvestre Jain [employer] Work Phone: [facility] Work Phone: 12-20-2015 influenza, injectabl e, quadrivalent, contains preservative Erica Cannon MD Work Phone: [facility] Work Phone: 12-20-2015 influenza, injectabl e, quadrivalent, preservative free Dr. Erica Cannon MD Work Phone: [facility] 12-20-2015 influenza, seasonal, injectable Dr. Erica Cannon Work Phone: [facility] 01-27-2015 influenza, injectabl e, quadrivalent, contains preservative Erica Cannon MD Work Phone: [facility] 03-17-2009 pneumococcal polysaccharide vaccine, 23 valent Erica Cannon MD Work Phone: [facility] 12-20-2008 influenza virus vacc ine, unspecified formulation Erica Cannon MD Work Phone: [facility] 01-09-2007 influenza virus vacc ine, unspecified formulation Erica Cannon MD Work Phone: [facility] Work Phone: Payers Date Payer Category Payer Medicare [id number] 2022 Self-pay [id number] 2022 Medicaid [id number] 2022 Medicaid [id number] 2021 Unknown [employer] / [employer] [id number] 2021-Present [phone] [address] [address] [place] [address] EPO [id number] 2021 Unknown [id number] 2018 Unknown MMO [employer] [id number] 2018-2021 [address] [place] [address] PPO [id number] 1959 Unknown [id number] Unknown [id number] Unknown [id number] Unknown [facility] [id number] Unknown [id number] Unknown [id number] Unknown [id number] Unknown [id number] Unknown [id number] Unknown [id number] Unknown [id number] Unknown [id number] Unknown [id number] Unknown [id number] Social History Date Type Detail Facility Start: 12-08-2014 End: 08-04-2023 Tobacco smoking status NHIS Never smoked tobacco [facility] Start: 04-30-2021 End: 11-02-2024 Alcohol intake Current non-drinker of alcohol (finding) [facility] Start: 12-08-2014 End: 08-07-2022 Tobacco Comment Father smoked in childhood home . ETS exposure in current home. [facility] Start: 1960 Sex Assigned At Not on file [facility] Start: 05-11-2021 End: 07-25-2021 Exposure to SARS-CoV-2 (event) Not sure [facility] Sex Assigned At Sex [facility] Start: 07-31-2021 End: 08-14-2022 Tobacco smoking status ORIS Unknown if ever smoked [facility] Start: 1960 Sex Assigned At Female W [facility] Start: 12-08-2014 End: 08-07-2022 Tobacco use and exposure Smokeless tobacco non-user [facility] Work Phone: Start: 02-14-2022 History SDOH Alcohol Frequency 1 [facility] Start: 02-14-2022 History SDOH Alcohol Std Drinks 0 [facility] Start: 02-14-2022 History SDOH Social Connections Phone 5 [facility] Start: 02-14-2022 History SDOH Social Connections [facility] Start: 02-14-2022 History SDOH Social Connections Living 7 [facility] Start: 02-14-2022 End: 07-05-2022 History of Social function [place] [facility] Start: 02-14-2022 End: 07-05-2022 Social connection and isolation panel [facility] Do you belong to any clubs or organizations such as denominational groups, unions, fraternal or athletic groups, or school groups? No [facility] Are you now , , , , never or living with a partner? Never [facility] How often to you hav e a drink containing alcohol? Never [facility] Start: 01-26-[address] inks containing alcohol do you have on a typical day? Patient does not drink [facility] Do you feel stress - tense, restless, nervous, or anxious, or unable to sleep at night because your mind is troubled all the time - these days [OSQ] Only a little [facility] (I/We) worried wheth er (my/our) food would run out before (I/we) got money to buy more. Never true [facility] Are you now , , , , never or living with a partner? Living with partner [facility] How hard is it for y ou to pay for the very basics like food, housing, medical care, and heating Not very hard [facility] Medical Equipment Procedure Code Equipment Code Equipment Original Text Equipment Identifier Dates [id number], [id number], [id number], [id number], [id number], [id number], [id number] Start: 07-16-2017 End: 09-21-2024 Comment on above: [...] Assessment Result Facility 08-19-2022 Functional status Bedrest [facility] Work Phone: 11-20-2021 [facility] Work Phone: 08-16-2021 Functional status Activity Abili ty With Assistance of 3 or more [facility] Work Phone: 08-16-2021 Functional status Bedpan [facility] Work Phone: 07-29-2021 Functional Status Assistive Device None A [facility] 07-29-2021 Functional Status Standard Safet y ID band on, Allergy Band on, Call device within reach, Bed in low position, Wheels locked, Upper/Half-Length side-rails up, Phone within reach, personal items within reach, Assistive devices within reach, Toileting device within reach, Bedside Cart Locked, Visitor at bedside, Safety level maintained [facility] 01-10-2016 Are you deaf, or do you have serious difficulty hearing No 01/10/2016 7:27 AM Rina Marroquin APRN.[facility] No [facility] 01-10-2016 Are you blind, or do you have serious difficulty seeing, even when wearing glasses No 01/10/2016 7:27 AM Rina Marroquin APRN.[facility] No [facility] 01-10-2016 Do you have serious difficulty walking or climbing stairs Yes 01/10/2016 7:27 AM Rina Marroquin APRN.[facility] Yes [facility] 01-10-2016 Do you have difficul ty dressing or bathing No 01/10/2016 7:27 AM Rina Marroquin, [employer] No [facility] 01-10-2016 Because of a physica l, mental, or emotional condition, do you have difficulty doing errands alone such as visiting a physician's office or shopping No 01/10/2016 7:27 AM Rina Marroquin, [employer] No [facility] Mental Status Date Assessment Result Facility 08-19-2022 Cognitive function Voice/Name [facility] Work Phone: 11-20-2021 Cognitive function Voice/Name [facility] Work Phone: 11-18-2021 Cognitive function Voice/Name [facility] Work Phone: 08-16-2021 Cognitive function Voice/Name [facility] Work Phone: 07-31-2021 Cognitive function Level Of Cons ciousness Awake;Alert;Appropriate [facility] Work Phone: 07-29-2021 Mental Status Orientation Oriented x 4 [facility] 07-29-2021 Mental Status [facility] 01-10-2016 Because of a physica l, mental, or emotional condition, do you have serious difficulty concentrating, remembering, or making decisions No 01/10/2016 7:27 AM Rina Marroquin, [employer] No [facility] Clinical Notes 06-30-2014 to 12-08-2024 Telephone Encounter - Treva Malave RN - 11/08/2024 8:35 AM EDTTelephone Encounter - Treva Malave RN - 11/08/2024 8:35 AM EDTTelephone Encounter - Rj Dempsey DO - 11/07/2024 1:02 PM EDT Note Date & Type Note Facility 12-08-[address] [facility] 12-03-2024 Note [facility] 11-29-2024 Note [facility] 11-25-2024 Note [facility] 11-08-2024 Telephone encount er Note Will notify pt chairside today. [facility] 11-08-2024 Miscellaneous Notes Formattin g of this note might be different from the original. Will notify pt chairside today. Can let her know the 24-hour urine collection showed no abnormal protein in the urine. Please keep echocardiogram as scheduled. If that looks okay then no further workup indicated at this time. Rj Dempsey DO documented in this encounter [facility] 11-07-2024 Telephone encount er Note Can let her know the 24-hour urine collection showed no abnormal protein in the urine. Please keep echocardiogram as scheduled. If that looks okay then no further workup indicated at this time. Rj Dempsey DO [facility] 11-03-2024 Telephone encount er Note Iron and OV scheduled with patient Start email sent [facility] Work Phone: 11-03-2024 Miscellaneous Notes Formattin g of this note might be different from the original. Iron and OV scheduled with patient Start email sent Iron sucrose orders in [place]. Spoke w pt and ECHO is scheduled for 11/11, first available. Please file [place] for Iron. OV also needs scheduled in [...] Rj Dempsey DO documented in this encounter [facility] 11-02-2024 Telephone encount er Note Iron sucrose orders in [place]. [facility] 11-01-2024 Telephone encount er Note Spoke w pt and ECHO is scheduled for 11/11, first available. Please file [place] for Iron. OV also needs scheduled in 3-4 weeks. Sabrina Richardson [facility] 11-01-2024 Telephone encount er Note Patient notified and voices understanding. Please reach out to patient to schedule iron infusions, Echo and OV. Almaz Morales LPN [facility] 11-01-2024 Telephone encount er Note Can let her know the laboratory [...] 3 to 4 weeks. Rj Dempsey DO [facility] 11-01-2024 Evaluation note Diagnosis Onset Date Resolution DJD (degenerative joint disease) of knee acute November 01, 2024 11:18am Obesity due to excess calories with serious comorbidity acute November 01 11:18am Mixed incontinence acute Octobe r 2024 10:42am Nocturia acute December 08, 2024 10:42am Urinary tract infection acute O ctober 2024 10:42am Constipation resolved November 10:42am Frequent UTI acute November 10:20am Mixed incontinence acute Octobe r 2024 10:20am Nocturia acute December 20, 2024 10:20am Urinary tract infection acute O ctober 2024 10:20am Constipation resolved November 10:20am [facility] Work Phone: [phone] 926-862709-05-2025 History of Present illness Narrative* Rj Dempsey DO - 10/29/2024 10:00 AM EDT Elements copied from Suraj Ureña's [employer] note dated 09/24/2024 have been reviewed and [...] today. States that she had an episode ofgeneral decline in health a few years back. Was unable to wear CPAP mask causing hypoventilation and elevated CO2. She became unresponsive at home. She was admitted to [facility] for over a month and then to [...] helped. Side to side pain now just lingeringon L side. Worse with fried foods. She is following with GI. No recent scopes. Lower scope in [facility] -> 5 years ago. No noticeable bleeding or unintentional bruising. No unintentional weight loss. Hs been on iron pills a long time without issues. CHRISTEL in the past. Denies [...] abdomen. Several months. Comes and goes. Appetite comes and goes. No dysphagia. No n/v. Occasional reflux. TUMS [...] IRON DEFIC ANEMIA NOS 01/20/2007 Colon 03-22-02 ([facility]): no polyps, masses or AVMs Lactose [...] W/COLLJ SPEC WHEN PFRMD 01/30/16 Colonoscopy mac [facility] outpt EGD TRANSORAL BIOPSY SINGLE/MULTIPLE 07/22/06 ESOPHAGOGASTRODUODENOSCOPY TRANSORAL DIAGNOSTIC 2001 EGD ESOPHAGOGASTRODUODENOSCOPY TRANSORAL DIAGNOSTIC 01/30/16 EGD mac [facility] outpt IMPLANT MESH OPN HERNIA RPR/DEBRIDEMENT CLOSURE [...] before meals and at bedtime. 120 capsule5 potassium chloride ER (KLOR-CON) 20 mEq tablet [...] to PAP machine. WALKER ROLLATOR SEAT WITH 6 WHEELS - RED Diagnosis: Unsteady gait, primary [...] needsO2 increased at night) 1 Each 0 COMPOUNDED [...] at least 2008. Avg hgb has been in9 - 10 range. - during initial visit hgb on 08/16/2024 was 10.5 - we reviewed most common causes of anemia including chronic blood loss, malabsorption, CKD, liver dysfunction, bone marrow disorders. - iron studies reviewed with patient, Ferritin elevated 297.0. No iron deficiency. Appears to be more anemia chronic disease/ inflammation with low TIBC and known ST3 CKD. Not a candidate for WAQAR at this time as hgb is over [...] iron would be indicated. We also discussed WAQAR therapy but she is not indicated atthis point. Plan: -MMA -24 hour urine. -Retic count. -Copper -EKG. -Troponin and BNP (may be elevated due to pulmonary hypertension). -Peripheral blood for MYD88 mutation. -Recheck iron (CKD). I spent a total of 45 minutes on the date of the service which included preparing to see the patient, [id number] patient care, completing clinical documentation, obtaining and/or reviewing separately obtained history, performing a medically appropriate examination, counseling and educating the pat ient/family/caregiver, ordering medications, tests, or procedures, communicating with other HCPs (not separately reported), and communicating results to the patient/family/caregiver. Rj Dempsey DO [facility] History of Present illness Narrative* Katya Biggs, [employer] - 10/29/2024 8:43 AM EDT CC: Patient presents with: UTI: Urinary freq,burning and cramping for a week. HPI Recording using [employer] software for draft documentation of the visit was discussed with the patient/authorized retention representative; all questions welcomed and answered. Patient/authorized retention representative agreed to proceed The patient is [...] IRON DEFIC ANEMIA NOS 01/20/2007 Colon 03-22-02 ([facility]): no polyps, masses or AVMs Lactose [...] to PAP machine. WALKER ROLLATOR SEAT WITH 6 WHEELS - RED Diagnosis: Unsteady gait, primary [...] R09.02 (checking if needsO2 increased at night) COMPOUNDED PRESCRIPTION TENS Unit [...] pressure, cramps, and burning on urination since earlythis week. Urinalysis reveals leukocytes and trace hematuria, [...] No Drug use: No documented in [facility] Instructions* Patient Instructions* Katya Biggs APRN.CNP - 10/29/2024 8:40 AM EDT - Begin the prescribed Macrobid (nitrofurantoin) for your urinary symptoms; the prescription has been sent to [facility]--start it as directed. - If your culture returns without evidence of infection and your symptoms persist, you may stop theantibiotic; if you feel better, continue and complete the full course. - We will call you on Friday with your urine culture results. - A referral has been faxed to Dr. Kinsey, a urogynecologist in [place]; please call her office toschedule your evaluation for possible structural causes of your symptoms. Address: [address] [place] [address], [address] [place] [address] documented in [facility]Ber[facility] Telephone encounter Note * Telephone Encounter - Ora Brice - 10/26/2024 9:14 AM EDT Prescription Refill Information The patient [...] Ora Sylvester October 26, 2024 9:20 AM [facility]09-02-2025 Miscellaneous Notes* Telephone Encounter - Ora Brice - 10/26/2024 9:14 AM EDT Prescription Refill Information The patient [...] 1 capsule by mouth once daily. Ora Estrada Sylvester October 26, 2024 9:20 AM documented in [facility] encounterBer[facility]-2025 Telephone encounter Note * Telephone Encounter - Erica Cannon MD - 10/08/2024 7:12 PM EDT The following approved medication requests have been transmitted electronically. Requested Prescriptions Signed Prescriptions Disp Refills LORazepam (ATIVAN) 1 mg tablet 30 tablet 0 Sig: Take 0.5-1 tablets by mouth once daily as needed for anxiety for up to 30 days. Authorizing Provider: ERICA CANNON MD [facility]08-15-2025 Miscellaneous Notes* Telephone Encounter - Erica Cannon MD - 10/08/2024 7:12 PM EDT The following approved medication requests have been transmitted electronically. Requested Prescriptions Signed Prescriptions Disp Refills LORazepam (ATIVAN) 1 mg tablet 30 tablet 0 Sig: Take 0.5-1 tablets by mouth once daily as needed for anxiety for up to 30 days. Authorizing Provider: ERICA CANNON MD * Telephone Encounter - Treva Cr RN - 10/08/2024 1:26 PM EDT The patient has been identified [...] 08, 2024 1:26 PM documented in this encounterBerger Hospital08-15-2025 Telephone encounter Note * Telephone Encounter - Treva Cr RN - 10/08/2024 1:26 PM EDT The patient has been identified [...] Cr RN October 08, 2024 1:26 PM [facility]08-07-[facility] Note [facility]08-04-2025 Telephone encounter Note* Telephone Encounter - Silvestre Jain APRN.NIKKY - 09/27/2024 12:12 PM EDT Excellent, thank you! I sent in the 5 mg dose of Zepbound because she has been off of it so we willhave to step up to get back to the 15 mg dose. [facility]08-04-2025 Miscellaneous Notes* Telephone Encounter - Silvestre Jain APRN.CNP - 09/27/2024 12:12 PM EDT Excellent, thank you! I sent in the 5 mg dose of Zepbound because she has been off of it so we willhave to step up to get back to the 15 mg dose. * Telephone Encounter - Chayito Boyd MA - 09/27/2024 11:49 AM EDT Zepbound appeal was approved for a year and patient notified. Please d/c vicotza off chart and will call pharmacy to run/send Chayito Boyd MA * Telephone Encounter - Chayito Boyd MA - 09/24/2024 9:46 AM EDT Notified denied from minnie nielsen patient does not have type 1 or 2 DM due to A1C being 4.5. Called minnie at [phone] and spoke to rep who advised denied due to form states patient is not diabetic due to A1C being low. I advised form asks if patient has history which she does therefor checked yes but no longer diabetic since A1C is normal. Submitted appeal over phone Chayito Boyd MA * Telephone Encounter - Chayito Boyd MA - 09/22/2024 1:25 PM EDT Spoke to patient and supplies being delivered today. Last night used meter/strips from a friend andsugar was 150 Patient aware sending to provider but may not change anything till we can get zepbound approved with PA Faxed PA form Chayito Boyd MA * Telephone Encounter - Silvestre Jain APRN.CNP - 09/22/2024 9:04 AM EDT Please let Chelsea know that labs show normal pancreas numbers, blood sugar was on the low side on herlabs. See if she was able to get [...] medication just with a different brand name). * Telephone Encounter - Silvestre Jain APRN.CNP - 09/22/2024 8:22 AM EDT I'm ok trying to get the Zepbound, I did a new order for this and associated with her chronic conditions, specifically HONEY and severe sleep apnea. * Telephone Encounter - Chayito Boyd MA - 09/21/2024 11:23 AM EDT Called [facility] pharmacy and Victoza is still on national [...] will still attempt but did want to seeif provider sent zepbound for sleep apnea if we could try to get approved due to A1C being so low. But since patient has HONEY, sleep study may be able to get approved, please send so we can attempt approval Chayito Boyd MA documented in this encounterBerger Hospital08-04-2025 Telephone encounter Note * Telephone Encounter - Chayito Boyd MA - 09/27/2024 11:49 AM EDT Zepbound appeal was approved for a year and patient notified. Please d/c kinjal off chart and will call pharmacy to run/send Chayito Boyd MA [facility]08-01-[facility]25 History of Present illness Narrative* Gavi Ureña - 09/24/2024 11:30 AM EDT Meggan Arita 1960 Encounter date: 09/24/2024 Cancer Staging No matching staging information was found for the patient. HPI: Meggan Arita is a 63 year old female with PMHx of GERD, HONEY, Asthma, T2DM, St 3 CKD, HLD,HTN. Referral from PCP, Silvestre Jain for iron deficiency anemia. Pt presents today as a new referral for anemia. Per chart review, long standing. Avg Hgb around 9 -10 dating back to at least 2008. She notes that she has been experiencing worsening fatigue in the last few months. Falling asleep at work mid task prompting her to see her PCP. In wheelchair today. States that she had an episode ofgeneral decline in health a few years back. Was unable to wear CPAP mask causing hypoventilation and elevated CO2. She became unresponsive at home. She was admitted to [facility] for over a month and then to [...] helped. Side to side pain now just lingeringon L side. Worse with fried foods. She is following with GI. No recent scopes. Lower scope in [facility] -> 5 years ago. No noticeable bleeding or unintentional bruising. No unintentional weight loss. Hs been on iron pills a long time without issues. CHRISTEL in the past. Denies [...] IRON DEFIC ANEMIA NOS 01/20/2007 Colon 03-22-02 ([facility]): no polyps, masses or AVMs Lactose [...] by mouth two times a day as neededfor pain for up to 5 days. 10 [...] before meals and at bedtime. 120 capsule5 buPROPion XL (WELLBUTRIN XL) 300 mg 24 [...] to PAP machine. WALKER ROLLATOR SEAT WITH 6 WHEELS - RED Diagnosis: Unsteady gait, primary [...] needsO2 increased at night) 1 Each 0 Nebulizer [...] at least 2008. Avg hgb has been in9 - 10 range. - during initial visit hgb on 08/16/2024 was 10.5 - we reviewed most common causes of anemia including chronic blood loss, malabsorption, CKD, liver dysfunction, bone marrow disorders. - iron studies reviewed with patient, Ferritin elevated 297.0. No iron deficiency. Appears to be more anemia chronic disease/ inflammation with low TIBC and known ST3 CKD. Not a candidate for WAQAR at this time as hgb is over [...] Case reviewed with Dr Dempsey. Gavi Ureña, SOURAV.[facility] I spent a total of 30 minutes on the date of the service which included preparing to see the patient, [id number] patient care, completing clinical documentation, obtaining and/or reviewing separately obtained history, performing a medically appropriate examination, counseling and educating the pat ient/family/caregiver, and ordering medications, tests, or procedures. Portions of this note including HPI, ROS, impression/plan may have been copied forward as to provide important historical information essential in contributing to medical decision making. Documentation has been reviewed and edited as necessary to support clinical decision making for today's visit and to reflect my own independent evaluation of this patient. documented in this encounterBerger Hospital08-01-2025 [facility] Telephone encounter Note* Telephone Encounter - Chayito Boyd MA - 09/24/2024 9:46 AM EDT Notified denied from minnie nielsen patient does not have type 1 or 2 DM due to A1C being 4.5. Called minnie at [phone] and spoke to rep who advised denied due to form states patient is not diabetic due to A1C being low. I advised form asks if patient has history which she does therefor checked yes but no longer diabetic since A1C is normal. Submitted appeal over phone Chayito Boyd MA [facility]07-30-[facility] Telephone encounter Note* Telephone Encounter - Chayito Boyd MA - 09/22/2024 1:25 PM EDT Spoke to patient and supplies being delivered today. Last night used meter/strips from a friend andsugar was 150 Patient aware sending to provider but may not change anything till we can get zepbound approved with PA Faxed PA form Chayito Boyd MA [facility]07-30-2025 Telephone encounter Note* Telephone Encounter - Silvestre Jain APRN.CNP - 09/22/2024 9:04 AM EDT Please let Chelsea know that labs show normal pancreas numbers, blood sugar was on the low side on herlabs. See if she was able to get [...] medication just with a different brand name). [facility]07-30-[facility] Telephone encounter Note* Telephone Encounter - Silvestre Jain APRN.CNP - 09/22/2024 8:22 AM EDT I'm ok trying to get the Zepbound, I did a new order for this and associated with her chronic conditions, specifically HONEY and severe sleep apnea. [facility]07-29-2025 Telephone encounter Note* Telephone Encounter - Chayito Boyd MA - 09/21/2024 11:23 AM EDT Called [facility] and Victoza is still [...] will still attempt but did want to seeif provider sent zepbound for sleep apnea if we could try to get approved due to A1C being so low. But since patient has HONEY, sleep study may be able to get approved, please send so we can attempt approval Chayito Boyd MA [facility]07-29-2025 [facility]07-29-[facility] History of Present illness Narrative* Silvestre Jain APRN.NIKKY - 09/21/2024 10:42 AM EDT SUBJECTIVE Meggan Arita is a [...] does not have test strips or a functionalglucometer. She denies hematochezia and has a history [...] concerns. Chelsea has difficulty falling asleep before [id number] and attributes this to her body not shutting down. She sleeps on a hospital bed, which she finds uncomfortable due to a bar in the back, causing her to toss and turn. She wakes up around [phone] and does not feel tired upon waking. Recording using QingCloud software for draft documentation of the visit was discussed with the patient/authorized retention representative; all questions welcomed and answered. Patient/authorized retention representative agreed to proceed Her medications were [...] daily at bedtime. WALKER ROLLATOR SEAT WITH 6 WHEELS - RED Diagnosis: Unsteady gait, primary [...] R09.02 (checking if needsO2 increased at night) COMPOUNDED PRESCRIPTION TENS Unit [...] by mouth two times a day as neededfor pain for up to 5 days. liraglutide [...] Lower Extremity, Limited to Breakdown of Skin ([facility]) - 02/20/2022 Comment: Large wound medial thigh; [...] 60.0-69.9, Adult ([facility]) - 06/30/2014 Pulmonary Hypertension ([facility]) - 04/23/2013 [...] Anemia, Unspecified - 01/20/2007 Comment: Colon 03-22-02 ([facility]): no polyps, masses or AVMs Anxiety State - 12/09/2006 Generalized Osteoarthrosis, Unspecified Site - 10/29/2006 Esophageal Reflux - 03/16/2005 Comment: EGD in 06-30: no evidence of esophagitis but there is gastritis (H pylori was negative) Chronic Hepatitis, Unspecified ([facility]) - 03/06/2005 Comment: Liver biopsy w/ cholecystectomy Hypertension Comment: Echo at [facility] 01-25: LVH, mild TR, LAE, RVE, PASP 38 (mild), no EF documented per Seese Seese 01-07-03: consider GERD for atyp CP, not cath candidate from obesity, doubt cardiac source ECG 03-30: NSR with PVC, lat T flattening, no ischemia/injury (ECG NL in 10-27 at [facility]) Rec for Dobut Echo in 05-28 per Seese ([facility]) prior to rec gastric bypass (Study 07-21-03 [...] 04-04 with the Holter findings Carotids at [facility] in 04-04: 1-15% stenosis bilaterally Obstructive Sleep [...] test (Bach test) to be completed via [employer]. - Will review test results and consider referral to geriatrics for further evaluation if necessary. PDMP website checked and validated. All prescriptions have been APPROPRIATELY filled. No suspiciousactivity was identified. 09/21/2024 by Silvestre Jain APRN.[facility] Portions of this note have been entered [...] appointment.. Silvestre Jain APRN-NIKKY documented in this encounterBerger Hospital07-28-2025 Telephone encounter Note * Telephone Encounter - Shant Bolye RN - 09/20/2024 9:51 AM EDT Pt reports she is having upper abdominal [...] AND [2] comes and goes (cramps) AND [3]present > 24 hours (Exception: Pain with Vomiting [...] : No. Protocols used: Abdominal Pain - [id number] [facility]07-28-2025 Miscellaneous Notes* Telephone Encounter - Shant Boyle RN - 09/20/2024 9:51 AM EDT Pt reports she is having upper abdominal [...] AND [2] comes and goes (cramps) AND [3]present > 24 hours (Exception: Pain with Vomiting [...] : No. Protocols used: Abdominal Pain - [id number] documented in this encounterBerger Hospital07-21-2025 Telephone encounter Note * Telephone Encounter - Chayito Boyd MA - 09/13/2024 9:23 AM EDT Faxed order as requested Chayito Boyd MA [facility]07-21-2025 Miscellaneous Notes* Telephone Encounter - Chayito Boyd MA - 09/13/2024 9:23 AM EDT Faxed order as requested Chayito Boyd MA * Telephone Encounter - Silvestre Jain APRN.CNP - 09/13/2024 7:47 AM EDT Order signed, please send. * Telephone Encounter - Maria Dolores Ivan RN - 09/08/2024 4:52 PM EDT Carlton with [facility] calls to let provider know that they are needing a new order for patient to haveoximetry with ambulation completed. Noted patient was not able to complete testing 12/18/2023 and is less ambulatory now. Offered OV notes for supporting documentation. Carlton reports that will not work they have to have testing on file. Carlton requests order to be faxed to [phone] and then they will figure out what they need to dofrom there as to whether or not she will qualify. Pended. Maria Dolores Ivan RN documented in this encounterBerger Hospital07-21-2025 Telephone encounter Note * Telephone Encounter - Silvestre Jain APRN.CNP - 09/13/2024 7:47 AM EDT Order signed, please send. [facility]07-17-2025 Telephone encounter Note* Telephone Encounter - Lauren Seo RN - 09/09/2024 8:56 AM EDT Spoke with Ruchi with Prior auth and she states Victoza is covered if brand name is dispensed. Called and spoke with Todd at [facility] pharmacy to discuss pt's Trulicity and Victoza. Todd states they filled the Trulicity before they got the prescription on the Victoza. Todd notified to cancel theTrulicity. Discussed the Victoza and [facility] states they will fill with brand name, which is already ordered, and pt has a $0 co-pay. Atttempted to call pt with no answer. Left detailed msg with the above information. [facility]07-17-2025 Miscellaneous Notes* Telephone Encounter - Lauren Seo RN - 09/09/2024 8:56 AM EDT Spoke with Ruchi with Prior vishal and she states Victoza is covered if brand name is dispensed. Called and spoke with Todd at [facility] pharmacy to discuss pt's Trulicity and Victoza. Todd states they filled the Trulicity before they got the prescription on the Victoza. Todd notified to cancel theTrulicity. Discussed the Victoza and [facility] states they will fill with brand name, which is already ordered, and pt has a $0 co-pay. Atttempted to call pt with no answer. Left detailed msg with the above information. * Telephone Encounter - Lauren Seo RN - 09/08/2024 7:07 PM EDT Late entry: Pt called in on 09/08. [...] is covered or not. Pt is going tocall and confirm with her insurance in the morning. Nurse will follow up with PA staff and [facility] in the morning. * Telephone Encounter - Chayito Boyd MA - 09/07/2024 4:48 PM EDT PA was submitted for Victoza and not approved due to patient A1C is 4.5 Note from payer: Coverage is provided when the member meets all the followin. Member has had aninadequate clinical response (the inability to reach A1C goal (less than 7%) after at least 120 days of current regimen, with use of two or more drugs concomitantly per ADA ([place] Diabetes Association) guidelines; AND 2. Member has documented adherence and appropriate dose escalation (must achieve maximum recommended dose or document that maximum recommended dose is not tolerated or is clinically inappropriate); AND 3. Member has a history of at least 120 days of therapy with THREE preferredmedications in this UPDL category and indicated for [...] is preferred by the plan), Glimepiride 1,2,4 mg,Glipizide, Januvia, Jardiance 10 and 25 mg and Metformin IR 500 mg, 850 mg, 1000 mg and ER (generics of Glucophage). The [facility] Policy for Medical Necessity as posted on the [facility] website and [place] Preferred Drug List criteria were reviewed and per [place] Administrative Code Rule 5160-1-01 (C) and (B), [...] community. Chayito Boyd MA documented in this encounterBerger Hospital07-16-2025 Telephone encounter Note * Telephone Encounter - Lauren Seo RN - 09/08/2024 7:07 PM EDT Late entry: Pt called in on 09/08. [...] is covered or not. Pt is going tocall and confirm with her insurance in the morning. Nurse will follow up with PA staff and [facility] in the morning. [facility]07-16-2025 Telephone encounter Note* Telephone Encounter - Maria Dolores Ivan RN - 09/08/2024 4:52 PM EDT Carlton with [facility] calls to let provider know that they are needing a new order for patient to haveoximetry with ambulation completed. Noted patient was not able to complete testing 12/18/2023 and is less ambulatory now. Offered OV notes for supporting documentation. Carlton reports that will not work they have to have testing on file. Carlton requests order to be faxed to [phone] and then they will figure out what they need to dofrom there as to whether or not she will qualify. Pended. Maria Dolores Ivan RN [facility]07-15-2025 Telephone encounter Note* Telephone Encounter - Chayito Boyd MA - 09/07/2024 4:48 PM EDT PA was submitted for Victoza and not approved due to patient A1C is 4.5 Note from payer: Coverage is provided when the member meets all the followin. Member has had aninadequate clinical response (the inability to reach A1C goal (less than 7%) after at least 120 days of current regimen, with use of two or more drugs concomitantly per ADA ([place] Diabetes Association) guidelines; AND 2. Member has documented adherence and appropriate dose escalation (must achieve maximum recommended dose or document that maximum recommended dose is not tolerated or is clinically inappropriate); AND 3. Member has a history of at least 120 days of therapy with THREE preferredmedications in this UPDL category and indicated for [...] is preferred by the plan), Glimepiride 1,2,4 mg,Glipizide, Januvia, Jardiance 10 and 25 mg and Metformin IR 500 mg, 850 mg, 1000 mg and ER (generics of Glucophage). The [facility] Policy for Medical Necessity as posted on the [facility] website and [facility] Preferred Drug List criteria were reviewed and per [place] Administrative Code Rule 5160-1-01 (C) and (B), [...] available through the community. Chayito Boyd MA [facility]07-15-2025 NoteEast [facility]07-15-2025 History of Present illness Narrative* Silvestre Jain APRN.[facility] - 09/07/2024 10:52 AM EDT SUBJECTIVE Meggan Arita is a [...] for her A1c to increase without the medication.She has previously tried Trulicity but reports that it was not effective for her. She also reports difficulty with mobility and balance, stating, I should be walking by now. I can't do my balance now. She is currently using a wheelchair and expresses a desire to improve her mobility to reduce the strain on her , who has a heart condition. She has previously done in-homephysical therapy but is considering outpatient physical therapy for better access to equipment and facilities. Chelsea also reports concerns about her blood pressure, stating that her current medication, losartan,is not working as well as it used to. She is also taking Lasix for fluid retention but notes that it is not as effective as it used to be. She has recently had blood work done for anemia and is awaiting results. Recording using QingCloud software for draft documentation of the visit was discussed with the patient/authorized retention representative; all questions welcomed and answered. Patient/authorized retention representative agreed to proceed Her medications were [...] to PAP machine. WALKER ROLLATOR SEAT WITH 6 WHEELS - RED Diagnosis: Unsteady gait, primary [...] if needsO2 increased at night) Blood-Glucose Meter ([employer]) monitoring kit 1 Each as [...] Lower Extremity, Limited to Breakdown of Skin ([facility]) - 02/20/2022 Comment: Large wound medial thigh; [...] 2016 Depression - 01/24/2016 Type 2 Diabetes ([facility]) - 09/01/2014 Bmi 60.0-69.9, Adult ([facility]) - 06/30/2014 Pulmonary Hypertension ([facility]) - 04/23/2013 Allergic Rhinitis - 07/15/2007 Spinal [...] Anemia, Unspecified - 01/20/2007 Comment: Colon 03-22-02 ([facility]): no polyps, masses or AVMs Anxiety State - 12/09/2006 Generalized Osteoarthrosis, Unspecified Site - 10/29/2006 Esophageal Reflux - 03/16/2005 Comment: EGD in 06-30: no evidence of esophagitis but there is gastritis (H pylori was negative) Chronic Hepatitis, Unspecified ([facility]) - 03/06/2005 Comment: Liver biopsy w/ cholecystectomy Hypertension Comment: Echo at [facility] 01-25: LVH, mild TR, LAE, RVE, PASP 38 (mild), no EF documented per [facility] Seese 01-07-03: consider GERD for atyp CP, not cath candidate from obesity, doubt cardiac source ECG 03-30: NSR with PVC, lat T flattening, no ischemia/injury (ECG NL in 10-27 at [facility]) Rec for Dobut Echo in 05-28 per [...] 04-04 with the Holter findings Carotids at [facility] in 04-04: 1-15% stenosis bilaterally Obstructive Sleep [...] appointment.. Silvestre Jain APRN-NIKKY documented in this encounterBerger Hospital07-14-2025 Telephone encounter Note * Telephone Encounter - Chayito Boyd MA - 09/06/2024 1:58 PM EDT Patient has been identified by [...] Please advise. Thank you. Chayito Boyd MA. [facility]07-14-2025 Miscellaneous Notes* Telephone Encounter - Chayito Boyd MA - 09/06/2024 1:58 PM EDT Patient has been identified by [...] you. Chayito Boyd MA. documented in this encounterBerger Hospital07-08-2025 Telephone encounter Note * Telephone Encounter - Silvestre Jain APRN.CNP - 08/31/2024 4:01 PM EDT Okay, can discuss more in depth with her next follow up in our office [facility]07-08-2025 Miscellaneous Notes* Telephone Encounter - Silvestre Jain APRN.CNP - 08/31/2024 4:01 PM EDT Okay, can discuss more in depth with her next follow up in our office * Telephone Encounter - Ruchi Malone LPN - 08/31/2024 2:48 PM EDT Called pt and reviewed. She declines to see pharmacy. She doesn't think that will help. * Telephone Encounter - Silvestre Jain APRN.NIKKY - 08/31/2024 11:24 AM EDT I was really bummed for her to [...] our pharmacist to see what they recommend? * Telephone Encounter - Lili Cummings RN - 08/30/2024 6:53 PM EDT Pt called I and reports she was called by the pharmacy stating that the Mounjaro was denied by her insurance. I let her know our PA department sent the information to [employer]. We are waiting on a response from the provider with what she would like to do. It states it Pt must have 120 days of therapy with THREE preferred medications, so provider may have to put her on other medication and she must fail them before they will pay for that medication. Please call and advise Pt. Lili Cummings RN * Telephone Encounter - Ruchi Malone LPN - 08/30/2024 1:19 PM EDT Covermymeds PA rec'd and completed this electronically. [...] preferred drug in the same drug class, Victoza(18 MG/3 ML PEN) (Brand name is preferred by the plan) or Trulicity (0.75 mg, 1.5 mg, 3 mg, and 4.5mg). Other trials may include but are not [...] two or more drugs concomitantly per ADA ([place] Diabetes Association) guidelines; AND 4. Member has documented adherence and appropriate dose escalation (must achieve maximum recommended dose or document that maximum recommended dose is not tolerated or is clinically inappropriate). In addition, please provide start and end dates of use AND doses used for all preferred medications (samples are not accepted as trials). The [facility] Policy for Medical Necessity as posted on the [facility] website and [facility] Preferred Drug List criteria were reviewed and per [place] Administrative Code Rule 5160-1-01 (C) and (B), a medically necessary service must include: generally accepted standards of medical practice, be clinically appropriate in administration, treatment and outcome and be the lowest cost alternative to effectively treat the condition. Please contact your provider to assist you with other treatment options that might be covered under your benefit package, orother services that might be available through the community. Payer: [facility] documented in this encounterBerger Hospital07-08-2025 Telephone encounter Note * Telephone Encounter - Ruchi Malone LPN - 08/31/2024 2:48 PM EDT Called pt and reviewed. She declines to see pharmacy. She doesn't think that will help. [facility]07-08-2025 Telephone encounter Note* Telephone Encounter - Silvestre Jain APRN.CNP - 08/31/2024 11:24 AM EDT I was really bummed for her to [...] our pharmacist to see what they recommend? [facility]07-07-2025 Telephone encounter Note* Telephone Encounter - Lili Cummings, SHELBY - 08/30/2024 6:53 PM EDT Pt called I and reports she was [...] call and advise Pt. Lili Cummings RN [facility]07-07-2025 Telephone encounter Note* Telephone Encounter - Ruchi Malone LPN - 08/30/2024 1:19 PM EDT Covermymeds PA rec'd and completed this electronically. [...] preferred drug in the same drug class, Victoza(18 MG/3 ML PEN) (Brand name is preferred by the plan) or Trulicity (0.75 mg, 1.5 mg, 3 mg, and 4.5mg). Other trials may include but are not [...] two or more drugs concomitantly per ADA ([place] Diabetes Association) guidelines; AND 4. Member has documented adherence and appropriate dose escalation (must achieve maximum recommended dose or document that maximum recommended dose is not tolerated or is clinically inappropriate). In addition, please provide start and end dates of use AND doses used for all preferred medications (samples are not accepted as trials). The [facility] Policy for Medical Necessity as posted on the [facility] website and [facility] Preferred Drug List criteria were reviewed and per [place] Administrative Code Rule 5160-1-01 (C) and (B), a medically necessary service must include: generally accepted standards of medical practice, be clinically appropriate in administration, treatment and outcome and be the lowest cost alternative to effectively treat the condition. Please contact your provider to assist you with other treatment options that might be covered under your benefit package, orother services that might be available through the community. Payer: [facility]07-07-2025 Telephone encounter Note* Telephone Encounter - Anh Hazel LPN - 08/30/2024 9:56 AM EDT [facility] calling to ask for refills [...] Hazel LPN August 30, 2024 10:07 AM [facility]07-07-2025 Miscellaneous Notes* Telephone Encounter - Anh Hazel LPN - 08/30/2024 9:56 AM EDT [facility] calling to ask for refills said they had been filing the Topiramate 50 mg and the Topiramate 100 mg rx. Said they never received a discontinue notice. Patient was still getting both put in her medication packs. On 05/07/2024 office visit with Silvestre Susy OFFICE SERVICE COORDINATOR, she had changed the Topiramate from 50 [...] 30, 2024 10:07 AM documented in this encounterBerger Hospital07-01-2025 History of Present illness Narrative* UreñaSonny diazna - 08/24/2024 10:30 AM EDT Meggan Arita 1960 Encounter date: 08/24/2024 Cancer Staging No matching staging information was found for the patient. HPI: Meggan Arita is a 63 year old female with PMHx of GERD, HONEY, Asthma, T2DM, St 3 CKD, HLD,HTN. Referral from PCP, Silvestre Jain for iron deficiency anemia. Pt presents today as a new referral for anemia. Per chart review, long standing. Avg Hgb around 9 -10 dating back to at least 2008. She notes that she has been experiencing worsening fatigue in the last few months. Falling asleep at work mid task prompting her to see her PCP. In wheelchair today. States that she had an episode ofgeneral decline in health a few years back. Was unable to wear CPAP mask causing hypoventilation and elevated CO2. She became unresponsive at home. She was admitted to [facility] for over a month and then to [...] helped. Side to side pain now just lingeringon L side. Worse with fried foods. She is following with GI. No recent scopes. Lower scope in [facility] -> 5 years ago. No noticeable bleeding or unintentional bruising. No unintentional weight loss. Hs been on iron pills a long time without issues. CHRISTEL in the past. Denies [...] IRON DEFIC ANEMIA NOS 01/20/2007 Colon 03-22-02 ([facility]): no polyps, masses or AVMs Lactose [...] before meals and at bedtime. 120 capsule5 buPROPion XL (WELLBUTRIN XL) 300 mg 24 [...] 1 each 3 WALKER ROLLATOR SEAT WITH 6 WHEELS - RED Diagnosis: Unsteady gait, primary [...] at night) 1 Each 0 Blood-Glucose Meter ([employer] Pharm[employer]STYLE FREEDOM LITE) monitoring kit 1 Each as [...] at least 2008. Avg hgb has been in9 - 10 range. - last hgb on 08/16/2024 was 10.5 - we reviewed most common causes of anemia including chronic blood loss, malabsorption, CKD, liver dysfunction, bone marrow disorders. - iron studies reviewed with patient, Ferritin elevated 297.0 . No iron deficiency. Appears to be more anemia chronic disease/ inflammation with low TIBC and know ST3 CKD. Not a candidate for WAQAR at this time as hgb is over 10. - slight macrocytosis - plan to check labs today, repeat b12, MMA, folate, copper, zinc, retic, hapto, LDH. Check SPEP, light chains with CKD. - encouraged GI follow up. RTC in about 1 - 2 weeks for lab review. Advised to call with any questions or concern in the meantime. Gavi Ureña APRN.[facility] I spent a total of 60 minutes on the date of the service which included preparing to see the patient, [id number] patient care, completing clinical documentation, obtaining and/or reviewing separately obtained history, performing a medically appropriate examination, counseling and educating the pat ient/family/caregiver, and ordering medications, tests, or procedures. Portions of this note including HPI, ROS, impression/plan may have been copied forward as to provide important historical information essential in contributing to medical decision making. Documentation has been reviewed and edited as necessary to support clinical decision making for today's visit and to reflect my own independent evaluation of this patient. documented in this encounterBerger Hospital07-01-2025 Note[facility]06-25-[facility]25 Telephone encounter Note* Telephone Encounter - Charu Anderson - 08/18/2024 1:06 PM EDT Scheduled with patient [facility] Work Phone: [phone]) 601-392906-25-2025 Miscellaneous Notes* Telephone Encounter - Charu Anderson - 08/18/2024 1:06 PM EDT Scheduled with patient * Telephone Encounter - Almaz Morales LPN - 08/18/2024 11:48 AM EDT Can schedule with Gavi Ureña APRN * Telephone Encounter - Diamond Sylvester Charu - 08/18/2024 10:59 AM EDT Please review and advise CONSULT TO HEMATOLOGY/ONCOLOGY Status: Needs Scheduling Requested appt date: Authorizing: Silvestre Jain APRN.[facility] in [place] [facility] Referral: [id number] (Authorized) Expires: 08/18/2025 Priority: Routine Diagnosis: Iron deficiency anemia, unspecified iron deficiency anemia type [D50.9] documented in this encounterBerger Hospital06-25-2025 Telephone encounter Note * Telephone Encounter - Almaz Morales LPN - 08/18/2024 11:48 AM EDT Can schedule with Gavi Ureña APRN [facility]06-25-2025 Telephone encounter Note* Telephone Encounter - Charu Anderson - 08/18/2024 10:59 AM EDT Please review and advise CONSULT TO HEMATOLOGY/ONCOLOGY Status: Needs Scheduling Requested appt date: Authorizing: Silvestre Jain APRN.[facility] [place] [facility] Referral: [id number] (Authorized) Expires: 08/18/2025 Priority: Routine Diagnosis: Iron deficiency anemia, unspecified iron deficiency anemia type [D50.9] [facility]06-25-2025 Telephone encounter Note* Telephone Encounter - Shant Boyle RN - 08/18/2024 10:54 AM EDT Pt returned call and given provider's message below with verbalized understanding. Pt agreeable. Transferred to [facility]. [facility]06-25-2025 Miscellaneous Notes* Telephone Encounter - Shant Boyle RN - 08/18/2024 10:54 AM EDT Pt returned call and given provider's message below with verbalized understanding. Pt agreeable. Transferred to pss. * Telephone Encounter - Silvestre Jain APRN.CNP - 08/18/2024 9:59 AM EDT Please let her know to continue the iron and vitamin c, I would like her to complete a test to check for blood in the stool, order placed. I would also like her to see hematology because iron stores (ferritin) is elevated but iron in the blood is low. Silvestre Jain APRN.CNP * Telephone Encounter - Gertrudis Cantrell RN - 08/17/2024 5:33 PM EDT patient notified of information. patient states that she is taking the iron and vitamin c daily. no s/s of bleeding. please review and advise. patient would like a phone call back with information instead of a mychart message. documented in this encounterBerger Hospital06-25-2025 Telephone encounter Note * Telephone Encounter - Silvestre Jain APRN.CNP - 08/18/2024 9:59 AM EDT Please let her know to continue the iron and vitamin c, I would like her to complete a test to check for blood in the stool, order placed. I would also like her to see hematology because iron stores (ferritin) is elevated but iron in the blood is low. Silvestre Jain APRN.CNP [facility]06-24-2025 Telephone encounter Note* Telephone Encounter - Gertrudis Cantrell RN - 08/17/2024 5:33 PM EDT patient notified of information. patient states that she is taking the iron and vitamin c daily. no s/s of bleeding. please review and advise. patient would like a phone call back with information instead of a mychart message. [facility]06-23-2025 Note[facility]06-23-2025 History of Present illness Narrative* Silvestre Jain APRN.[facility] - 08/16/2024 10:03 AM EDT SUBJECTIVE Meggan Arita is a [...] to PAP machine. WALKER ROLLATOR SEAT WITH 6 WHEELS - RED Diagnosis: Unsteady gait, primary [...] if needsO2 increased at night) Blood-Glucose Meter (Absorption Pharm[employer]STYLE FREEDOM LITE) monitoring kit 1 Each as [...] Lower Extremity, Limited to Breakdown of Skin ([facility]) - 02/20/2022 Comment: Large wound medial thigh; [...] 2016 Depression - 01/24/2016 Type 2 Diabetes ([facility]) - 09/01/2014 Bmi 60.0-69.9, Adult ([facility]) - 06/30/2014 Pulmonary Hypertension ([facility]) - 04/23/2013 Allergic Rhinitis - 07/15/2007 Spinal [...] Anemia, Unspecified - 01/20/2007 Comment: Colon 03-22-02 ([facility]): no polyps, masses or AVMs Anxiety State - 12/09/2006 Generalized Osteoarthrosis, Unspecified Site - 10/29/2006 Esophageal Reflux - 03/16/2005 Comment: EGD in 06-30: no evidence of esophagitis but there is gastritis (H pylori was negative) Chronic Hepatitis, Unspecified ([facility]) - 03/06/2005 Comment: Liver biopsy w/ cholecystectomy Hypertension Comment: Echo at [facility] 01-25: LVH, mild TR, LAE, RVE, PASP 38 (mild), no EF documented per [facility] 01-07-03: consider GERD for atyp CP, not cath candidate from obesity, doubt cardiac source ECG 03-30: NSR with PVC, lat T flattening, no ischemia/injury (ECG NL in 10-27 at [facility]) Rec for Dobut Echo in 05-28 per [...] 04-04 with the Holter findings Carotids at [facility] in 04-04: 1-15% stenosis bilaterally Obstructive Sleep [...] appointment.. Silvestre Jain APRN-NIKKY documented in this encounterBerger Hospital06-04-2025 Telephone encounter Note * Telephone Encounter - Sridevi Isabel LPN - 07/28/2024 4:10 PM EDT PATIENT NOTIFIED OF SAME. Will call back in am to schedule ultrasound. [facility]06-04-2025 Miscellaneous Notes* Telephone Encounter - Sridevi Isabel LPN - 07/28/2024 4:10 PM EDT PATIENT NOTIFIED OF SAME. Will call back in am to schedule ultrasound. * Telephone Encounter - Silvestre Jain APRN.CNP - 07/28/2024 1:15 PM EDT Orders placed, I would recommend Dr. Otto for urology if wanting to stay local. * Telephone Encounter - Sridevi Isabel LPN - 07/28/2024 12:57 PM EDT Spoke with Chelsea and she would like referral to urology and willing to complete post void residual ultrasound. * Telephone Encounter - Silvestre Jain APRN.CNP - 07/28/2024 11:59 AM EDT The urine cultures show possible contamination of the sample so I do not think another urine test would be helpful at this time. We could consider doing an ultrasound of the bladder to see if she is filling the bladder and completely emptying it once urinating. I also would suggest we have her see urology, has she seen urology before in the past? * Telephone Encounter - Muriel Burgess LPN - 07/27/2024 2:35 PM EDT Pt reports she has been to [facility] [...] 08/16/24 Muriel Burgess LPN documented in this encounterBerger Hospital06-04-2025 Telephone encounter Note * Telephone Encounter - Silvestre Jain APRN.CNP - 07/28/2024 1:15 PM EDT Orders placed, I would recommend Dr. Otto for urology if wanting to stay local. [facility]06-04-2025 Telephone encounter Note* Telephone Encounter - Sridevi Isabel LPN - 07/28/2024 12:57 PM EDT Spoke with Chelsea and she would like referral to urology and willing to complete post void residual ultrasound. [facility]06-04-2025 Telephone encounter Note* Telephone Encounter - Silvestre Jain APRN.CNP - 07/28/2024 11:59 AM EDT The urine cultures show possible contamination of the sample so I do not think another urine test would be helpful at this time. We could consider doing an ultrasound of the bladder to see if she is filling the bladder and completely emptying it once urinating. I also would suggest we have her see urology, has she seen urology before in the past? [facility]06-03-2025 Telephone encounter Note* Telephone Encounter - Muriel Burgess LPN - 07/27/2024 2:35 PM EDT Pt reports she has been to [facility] [...] Next scheduled appt: 08/16/24 Muriel Burgess LPN [facility]06-02-2025 Telephone encounter Note* Telephone Encounter - Maria Dolores Ivan RN - 07/26/2024 3:43 PM EDT Called and asked if this was testing that they do and Neetu reports yes. Verbal ok given as requested. Maria Dolores Ivan RN [facility]06-02-2025 Miscellaneous Notes* Telephone Encounter - Maria Dolores Ivan RN - 07/26/2024 3:43 PM EDT Called and asked if this was testing that they do and [facility] reports yes. Verbal ok given as requested. Maria Dolores Ivan RN * Telephone Encounter - Lydia North APRN.KATE - 07/26/2024 3:40 PM EDT This is something they are doing? It is OK. * Telephone Encounter - Maria Dolores Ivan RN - 07/26/2024 3:27 PM EDT Neetu with [employer] calls to report that patient is due for her yearly testing for Medicaid for use of oxygen 24 hours/day. If ok, please call verbal order to [phone]. Maria Dolores Ivan RN documented in this encounterBerger Hospital06-02-2025 Telephone encounter Note * Telephone Encounter - Lydia North APRN.CNS - 07/26/2024 3:40 PM EDT This is something they are doing? It is OK. [facility]06-02-2025 Telephone encounter Note* Telephone Encounter - Maria Dolores Ivan RN - 07/26/2024 3:27 PM EDT Neetu Christensen calls to report that patient is due for her yearly testing for Medicaid for use of oxygen 24 hours/day. If ok, please call verbal order to [phone]. Maria Dolores Ivan RN [facility]05-26-2025 Telephone encounter Note* Telephone Encounter - Gregoria Patton APRN.CNP - 07/19/2024 12:31 PM EDT Urine culture reveals mixed bacteria Reached out to patient, She has started taking the Keflex Discussed results Follow up with PCP this week for repeat testing to ensure blood has resolved and sx improved. Verbalized understanding [facility] Work Phone: 1(242) 138-969405-26-2025 Miscellaneous Notes* Telephone Encounter - Gregoria Patton APRN.CNP - 07/19/2024 12:31 PM EDT Urine culture reveals mixed bacteria Reached out to patient, She has started taking the Keflex Discussed results Follow up with PCP this week for repeat testing to ensure blood has resolved and sx improved. Verbalized understanding documented in this encounterBerger Hospital05-25-2025 Instructions* Patient Instructions* Zayda Jackson APRN.CNP - 07/18/2024 11:46 AM EDT 1. Dysuria (R30.0) 2. Urinary tract infection with hematuria, site unspecified (N39.0) - Urinalysis shows hematuria, proteinuria, and pyuria, indicating infection. - Prescribed Cephalexin 500 mg orally TID for 7 days; sent prescription to [facility]. - Sent urine sample for culture to confirm appropriate antibiotic coverage. - Advised increased water intake to aid in symptom relief and prevent recurrence. - Patient to monitor symptoms; improvement expected within 24 hours of antibiotic initiation. - I ve prescribed Keflex to take three times a day for 7 days; car pick up driver your prescription at [facility]. - Drink plenty of water each day to help flush your bladder and reduce irritation. - We sent your urine sample for a culture to confirm that Keflex is the right antibiotic for your infection. - You should notice a significant improvement in your urinary symptoms within about 24 hours. documented in this encounterBerger Hospital05-25-2025 NoteEast [facility] Hospital05-25-2025 History of Present illness Narrative* Zayda Jackson APRN.CNP - 07/18/2024 11:44 AM EDT [facility] Subjective Meggan Arita is [...] C (98.4 F) Ht 175.3 cm (5' 9) Wt (!) 180.1 kg (397 lb) LMP [...] IRON DEFIC ANEMIA NOS 01/20/2007 Colon 03-22-02 ([facility]): no polyps, masses or AVMs Lactose [...] to PAP machine. WALKER ROLLATOR SEAT WITH 6 WHEELS - RED Diagnosis: Unsteady gait, primary [...] TID for 7 days; sent prescription to [facility]. - Sent urine sample for culture to [...] Discussed expected course of illness Zayda Jackson APRN.[facility] and Recording using [employer] software for draft documentation of the visit was discussed with thepatient/authorized retention representative; all questions welcomed and answered. Patient/authorized retention representative agreed to proceed Disposition The patient was discharged. Procedures documented in this encounterBerger Hospital05-23-2025 Telephone encounter Note * Telephone Encounter - Erica Cannon MD - 07/16/2024 5:41 PM EDT Did not see request till end of [...] up to 30 days. Authorizing Provider: ERICA CANNONetasone-formoterol (DULERA) 200-5 mcg/actuation inhaler 1 each 2 Sig: Inhale 1 puff as instructed two times a day. Rinse mouth after use. Authorizing Provider: ERICA CANNON venlafaxine ER (EFFEXOR XR) 75 mg 24 hr capsule 90 capsule 3 Sig: Take 1 capsule by mouth once daily. Authorizing Provider: ERICA CANNON MD [facility]05-23-2025 Miscellaneous Notes* Telephone Encounter - Erica Cannon MD - 07/16/2024 5:41 PM EDT Did not see request till end of [...] within the hour, because pt is in [place] right now. The patient has been identified [...] 16, 2024 11:05 AM documented in this encounterBerger Hospital05-23-2025 Evaluation note* Diagnosis Onset Date Resolution Status Admit Date LUQ pain chronic July 16, 2024 10:24am [facility] [employer] Work Phone: [phone] Telephone encounter Note* Telephone Encounter - Shant [...] Boyle RN July 16, 2024 11:05 AM [facility]05-13-2025 Telephone encounter Note* Telephone Encounter - [...] Please advise. Thank you. Chayito Boyd MA. [facility]05-13-2025 Miscellaneous Notes* Telephone Encounter - Chayito [...] 06, 2024 9:14 AM documented in this encounterBerger Hospital05-13-2025 Telephone encounter Note * Telephone Encounter [...] day as needed for muscle spasm. Ora Dorado [facility] July 06, 2024 9:14 AM [facility]05-02-2025 Telephone encounter Note* Telephone Encounter - Rayna Malave MA - 06/25/2024 9:45 AM EDT Patient notified of results, verbalized understanding of instructions given. Rayna Malave MA [facility]05-02-2025 Miscellaneous Notes* Telephone Encounter - Rayna [...] closely with her PCP. documented in this encounterBerger Hospital05-02-2025 Telephone encounter Note * Telephone Encounter [...] she should follow-up closely with her PCP. [facility]04-30-2025 Instructions* Patient Instructions* Brenda Monaco APRN.CNP [...] get worse. Thank you for coming to [facility] today. I appreciate your confidence in choosing the [facility] for your medical care. Brenda Monaco APRN.CNP [facility] [id number] [facility] [phone] documented in this encounterBerger Hospital04-30-2025 NoteEast [facility] Hospital04-30-2025 History of Present illness Narrative* Brenda [...] IRON DEFIC ANEMIA NOS 01/20/2007 Colon 03-22-02 ([facility]): no polyps, masses or AVMs Lactose [...] to PAP machine. WALKER ROLLATOR SEAT WITH 6 WHEELS - RED Diagnosis: Unsteady gait, primary [...] in the next 2-3 days. Recording using [employer] software for draft documentation of the visit was discussed with the patient/authorized retention representative; all questions welcomed and answered. Patient/authorized retention representative agreed to proceed Brenda Monaco APRN.CNP [...] Level: 4 - Moderate documented in this encounterBerger Hospital04-30-2025 Miscellaneous Notes* Telephone Encounter - Lauren [...] just needs an order to come and car pick up driver a cup to take home and get [...] am-booked with Lydia North. documented in this encounterBerger Hospital04-30-2025 Telephone encounter Note * Telephone Encounter - Lauren Seo RN - 06/23/2024 7:31 PM EDT Pt called back in and states [facility] and should be here in 10 mins. Appt cancelled for tomorrow with Lydia North. 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 [facility]04-29-2025 Instructions* Patient Instructions* Tom Bolaños - [...] or sore from your shoes, do not pop it. Apply a bandage and wear a differentpair of shoes. Take Care of Your Toenails Cut toenails after bathing, when they are soft. Cut toenails straight across and smooth with a nail file. Avoid cutting into the corners of toes. Do not cut cuticles. If you have neuropathy (or decreased sensation in your feet) a ka[place]ina [place] reo should always cut your toenails. Be Careful [...] your shoes are too tight. Perform the footwear test described below. Footwear Test Use this simple [...] Go to your health care provider or [place] to treat these conditions. What is Plantar [...] time on their feet, such as nurses, business development associate/waiters, andmail carriers, often experience plantar fasciitis. Athletes [...] choose the one that fits the best. [place] with your athletic shoes to find a [...] Powerstep Original Full length. Can purchase at [employer] and boots,shoes and more here in [place], [employer] in [place] or [place]. Also can find in [employer] in [facility]. Powersteps can also be purchased online, starting [...] everything fits well together documented in this encounterBerger Hospital04-29-2025 NoteEast [facility] Hospital04-29-2025 History of Present illness Narrative* Tom [...] understanding. Christy Ron MA documented in this encounterBerger Hospital04-29-2025 NoteEast [facility]04-15-2025 Telephone encounter Note* Telephone Encounter - Sridevi Isabel LPN - 06/08/2024 2:08 PM EDT Office note faxed as requested. [facility]04-15-2025 Miscellaneous Notes* Telephone Encounter - Sridevi [...] addendum could be added and faxed to [phone]. Maria Dolores Ivan, RN documented in this encounterBerger Hospital04-15-2025 Telephone encounter Note * Telephone Encounter - Silvestre Jain APRN.CNP - 06/08/2024 1:51 PM EDT I added an addendum to my last note, please send. Thanks. [facility]04-15-2025 Telephone encounter Note* Telephone Encounter - [...] Ora Sylvester June 08, 2024 9:01 AM [facility]04-15-2025 Miscellaneous Notes* Telephone Encounter - Ora [...] 08, 2024 9:01 AM documented in this encounterBerger Hospital04-14-2025 Telephone encounter Note * Telephone Encounter - Maria Dolores Ivan RN - 06/07/2024 11:36 AM EDT Victorina Christensen calls to request OV notes to support order for standard w/c they received. Recent OV notes doesn't mention w/c. [facility] asking if an addendum could be added and faxed to [phone]. Maria Dolores Ivan RN [facility]04-11-2025 Telephone encounter Note* Telephone Encounter - Sridevi Isabel LPN - 06/04/2024 4:30 PM EDT Order faxed and patient aware of same. [facility]04-11-2025 Miscellaneous Notes* Telephone Encounter - Sridevi [...] review. If agreeable, please fax order to [facility]. Call patient with an update. Thank you. Lexii Fowler RN documented in this encounterBerger Hospital04-11-2025 Telephone encounter Note * Telephone Encounter - Silvestre Jain APRN.CNP - 06/04/2024 4:18 PM EDT Order signed, please send. thanks [facility]04-10-2025 Telephone encounter Note* Telephone Encounter - Lexii Fowler RN - 06/03/2024 9:19 AM EDT Patient reports her wheelchair is broken and asking if Silvestre Jain CNP would place order for a newone. Pended for review. If agreeable, please fax order to [facility]. Call patient with an update. Thank you. Lexii Fowler RN [facility]04-07-2025 Telephone encounter Note* Telephone Encounter - Shant Boyle RN - 05/31/2024 2:53 PM EDT Notified patient. [facility]04-07-2025 Miscellaneous Notes* Telephone Encounter - Shant [...] 31, 2024 2:04 PM documented in this encounterBerger Hospital04-07-2025 Telephone encounter Note * Telephone Encounter - Erica Cannon MD - 05/31/2024 2:20 PM EDT The following approved medication requests have been transmitted electronically. Requested Prescriptions Pending Prescriptions Disp Refills LORazepam (ATIVAN) 1 mg tablet 30 tablet 0 Sig: Take 0.5-1 tablets by mouth once daily as needed for anxiety for up to 30 days. Erica Cannon MD [facility]04-07-2025 Telephone encounter Note* Telephone Encounter - [...] Boyle RN May 31, 2024 2:04 PM [facility]03-31-[facility]25 Telephone encounter Note* Telephone Encounter - Silvestre Jain APRN.CNP - 05/24/2024 8:26 AM EDT New order placed. [facility]03-31-2025 Miscellaneous Notes* Telephone Encounter - Silvestre Jain APRN.CNP - 05/24/2024 8:26 AM EDT New order placed. * Telephone Encounter - Inna Mcmanus - 05/22/2024 10:47 AM EDT Pt no showed for her [facility] pelvic ultrasound on 05/21/2024. It looks like the order is . Can you please place another order? Thank You documented in this encounterBerger Hospital03-29-2025 Telephone encounter Note * Telephone Encounter - Inna Mcmanus - 05/22/2024 10:47 AM EDT Pt no showed for her [facility] pelvic ultrasound on 05/21/2024. It looks like the order is . Can you please place another order? Thank You [facility]03-18-2025 Telephone encounter Note* Telephone Encounter - [...] Burgess LPN May 11, 2024 10:36 AM [facility]03-18-2025 Miscellaneous Notes* Telephone Encounter - Muriel [...] 11, 2024 10:36 AM documented in this encounterBerger Hospital03-14-2025 [facility] History of Present illness Narrative* Silvestre Jain APRN.[facility] - 05/07/2024 9:26 AM EDT SUBJECTIVE Meggan [...] on the left side. She has seen [facility] for this as well. Dx with diverticulitis [...] to PAP machine. WALKER ROLLATOR SEAT WITH 6 WHEELS - RED Diagnosis: Unsteady gait, primary [...] if needsO2 increased at night) Blood-Glucose Meter ([employer] FREEDOM [employer]) monitoring kit 1 Each as [...] Diabetes (Hcc) - 09/01/2014 Bmi 60.0-69.9, Adult ([facility]) - 06/30/2014 Pulmonary Hypertension ([facility]) - 04/23/2013 Allergic Rhinitis - 07/15/2007 Spinal [...] Anemia, Unspecified - 01/20/2007 Comment: Colon 03-22-02 ([facility]): no polyps, masses or AVMs Anxiety State - 12/09/2006 Generalized Osteoarthrosis, Unspecified Site - 10/29/2006 Esophageal Reflux - 03/16/2005 Comment: EGD in 06-30: no evidence of esophagitis but there is gastritis (H pylori was negative) Chronic Hepatitis, Unspecified ([facility]) - 03/06/2005 Comment: Liver biopsy w/ cholecystectomy Hypertension Comment: Echo at [place] 01-25: LVH, mild TR, LAE, RVE, PASP 38 (mild), no EF documented per Seese Seese 01-07-03: consider GERD for atyp CP, not cath candidate from obesity, doubt cardiac source ECG 03-30: NSR with PVC, lat T flattening, no ischemia/injury (ECG NL in 10-27 at [place]) Rec for Dobut Echo in 05-28 per [...] 04-04 with the Holter findings Carotids at [place] in 04-04: 1-15% stenosis bilaterally Obstructive Sleep [...] ORAL POWDER 3. Pelvic pain - ICD9: [id number], ICD10: R10.2 Differential Diagnosis includes Diverticulitis, Kidney [...] medications.. Silvestre Jain APRN-NIKKY documented in this encounterBerger Hospital03-06-2025 Telephone encounter Note * Telephone Encounter - Lili Cummings RN - 04/29/2024 7:22 PM EST Pt called and is notified of providers results and instructions. Pt voices understanding. Lili Cummings RN [facility]03-06-2025 Miscellaneous Notes* Telephone Encounter - Lili [...] Metformin again. In previous message Pt had states,she would like to try taking metformin again. States she is putting weight back on. Had stopped in in the past do to abdominal cramping. Will call if cramping becomes severe while taking the metformin.. Please call and advise. Lili Cummings RN [...] was noted from mychart. documented in this encounterBerger Hospital03-06-2025 Telephone encounter Note * Telephone Encounter [...] do give a 90 day supply . [facility]03-06-2025 Telephone encounter Note* Telephone Encounter - Lili Cummings RN - 04/29/2024 6:09 PM EST Pt called and is notified of providers message and instructions. Pt voices understanding. Pt was asking if provider had mentioned about her taking Metformin again. In previous message Pt had states,she would like to try taking metformin again. States she is putting weight back on. Had stopped in in the past do to abdominal cramping. Will call if cramping becomes severe while taking the metformin.. Please call and advise. Lili Cummings RN [facility]03-06-2025 Telephone encounter Note* Telephone Encounter - Erica [...] once daily. Authorizing Provider: ERICA CANNON MD [facility]03-05-2025 Telephone encounter Note* Telephone Encounter - Sridevi [...] cramping becomes severe while taking the metformin. [facility]03-05-2025 Telephone encounter Note* Telephone Encounter - [...] as well as Britney--has appointments coming up [facility]03-01-2025 Telephone encounter Note* Telephone Encounter - [...] see what message was noted from mychart. [facility]02-28-2025 [facility]02-28-[facility] History of Present illness Narrative* Tom [...] toes. Talia Parks LPN documented in this encounterBerger Hospital02-28-2025 Instructions* Patient Instructions* Tom Bolaños - [...] or sore from your shoes, do not pop it. Apply a bandage and wear a differentpair of shoes. Take Care of Your Toenails Cut toenails after bathing, when they are soft. Cut toenails straight across and smooth with a nail file. Avoid cutting into the corners of toes. Do not cut cuticles. If you have neuropathy (or decreased sensation in your feet) a kaiawhina kohanga reo should always cut your toenails. Be Careful [...] your shoes are too tight. Perform the footwear test described below. Footwear Test Use this simple [...] Go to your health care provider or ka[place]ina [place] reo to treat these conditions. documented in this encounterBerger Hospital02-28-2025 NoteEast [facility]02-17-2025 Telephone encounter Note* Telephone Encounter - Lydia North APRN.CNS - 04/12/2024 4:09 PM EST ok [facility]02-17-2025 Miscellaneous Notes* Telephone Encounter - Lydia [...] 12, 2024 10:36 AM documented in this encounterBerger Hospital02-17-2025 Telephone encounter Note * Telephone Encounter [...] Dorado LPN April 12, 2024 10:36 AM [facility]02-01-2025 Telephone encounter Note* Telephone Encounter - Nanci Dorado LPN - 03/27/2024 10:52 AM EST Spoke with pt and information listed below given. Pt verbalizes understanding. Pt will come in on Friday and repeat urine studies before going to see urologist. Nanci Dorado LPN [facility]02-01-2025 Miscellaneous Notes* Telephone Encounter - Nanci [...] Negative Negative Ketones, Urine Negative Negative Specific [place], Ur 1.005 - 1.030 1.021 Hemoglobin/Blood,Ur Negative Negative pH, Urine <8.5 6.0 Protein, Urine Negative Negative Urobilinogen 0.2-1.0 EU/dL 0.2 EU/dL Nitrites Negative Negative Leukest Negative Negative 03/20/2024 Culture 10,000 -<50,000 CFU/ml Normal urogenital paco Please review and advise, Treva Cr RN documented in this encounterBerger Hospital01-31-2025 Telephone encounter Note * Telephone Encounter - Erica Cannon MD - 03/26/2024 6:40 PM EST No significant growth Urinalysis was unremarkable. If ongoing pain, would refer to urology to see what else could be causing her symptoms/ Could repeat urine studies--orders filed. [facility]01-31-2025 Telephone encounter Note* Telephone Encounter - Treva Cr RN - 03/26/2024 8:46 AM EST Patient calls and states that she still continues to have burning with urination and pressure. Patient had done urine with culture testing on 03/20/2024. Latest Ref Rng 03/20/2024 Color Yellow Yellow Clarity Clear Clear Glucose, Urine Negative Negative Bilirubin, Urine Negative Negative Ketones, Urine Negative Negative Specific [place], Ur 1.005 - 1.030 1.021 Hemoglobin/Blood,Ur Negative Negative pH, Urine <8.5 6.0 Protein, Urine Negative Negative Urobilinogen 0.2-1.0 EU/dL 0.2 EU/dL Nitrites Negative Negative Leukest Negative Negative 03/20/2024 Culture 10,000 -<50,000 CFU/ml Normal urogenital paco Please review and advise, Treva Cr RN [facility]01-27-2025 Telephone encounter Note* Telephone Encounter - Lauren [...] too that pt needs refill on Mounjaro. [facility]01-27-2025 Miscellaneous Notes* Telephone Encounter - Lauren Seo [...] needs refill on Mounjaro. documented in this encounterBerger Hospital01-24-2025 Telephone encounter Note * Telephone Encounter - Lili Cummings RN - 03/19/2024 8:12 AM EST Pt called and is notified of providers message. Pt voices understanding. Lili Cummings RN [facility]01-24-2025 Miscellaneous Notes* Telephone Encounter - Lili [...] once orders are in. documented in this encounterBerger Hospital01-23-2025 Telephone encounter Note * Telephone Encounter - Erica Cannon MD - 03/18/2024 9:09 PM EST Filed [facility]01-23-2025 Telephone encounter Note* Telephone Encounter - [...] let Pt know once orders are in. [facility]01-15-2025 Telephone encounter Note* Telephone Encounter - Maria Dolores Ivan RN - 03/10/2024 10:34 AM EST Patient calls to report that prescription for topiramate was not received at [facility]. Patient asking if provider could please send prescription again so [facility] will deliver it to her home. Pended . Maria Dolores Ivan RN [facility]01-15-2025 Miscellaneous Notes* Telephone Encounter - Maria Dolores Ivan RN - 03/10/2024 10:34 AM EST Patient calls to report that prescription for topiramate was not received at [facility]. Patient asking if provider could please send prescription again so [facility] will deliver it to her home. Pended . Maria Dolores Ivan RN documented in this encounterBerger Hospital01-11-2025 Telephone encounter Note * Telephone Encounter - Lili Cummings RN - 03/06/2024 8:20 AM EST Pt called and is notified of providers message. Pt voices understanding. Lili Cummings RN [facility]01-11-2025 Miscellaneous Notes* Telephone Encounter - Lili [...] in out on leave now. Patient uses [facility] if needed. Please advise documented in this encounterBerger Hospital01-10-2025 Telephone encounter Note * Telephone Encounter - Erica Cannon MD - 03/05/2024 7:56 PM EST The following approved medication requests have been transmitted electronically. Requested Prescriptions Signed Prescriptions Disp Refills topiramate (TOPAMAX) 50 mg tablet 180 tablet 1 Sig: Take 1 tablet by mouth two times a day. Authorizing Provider: ERICA CANNON MD [facility]01-09-2025 Telephone encounter Note* Telephone Encounter - [...] Cummings RN March 04, 2024 7:04 PM [facility]01-09-2025 Telephone encounter Note* Telephone Encounter - Erica [...] alcohol, potatoes and anything with fructose corn [facility]01-08-2025 Telephone encounter Note* Telephone Encounter - Shant [...] is still taking it. Please advise pt. [facility]01-06-2025 Telephone encounter Note* Telephone Encounter - Rina [...] until OV laterin February. Rina Rincon LPN [facility]01-06-2025 Telephone encounter Note* Telephone Encounter - Lili [...] let her know that she is in. [facility]01-04-2025 Telephone encounter Note* Telephone Encounter - Carlton [...] off throughout the day. Carlton Guillen LPN [facility]01-03-2025 Telephone encounter Note* Telephone Encounter - Erica [...] with me if not already doing so. [facility]01-03-2025 Telephone encounter Note* Telephone Encounter - Anh [...] uses [facility] if needed. Please advise [facility]01-03-2025 Telephone encounter Note* Telephone Encounter - Shagufta Chang - 02/27/2024 [...] Shagufta Ortez February 27, 2024 2:30 PM [facility]01-03-2025 Miscellaneous Notes* Telephone Encounter - Shagufta [...] 27, 2024 2:30 PM documented in this encounterBerger Hospital12-29-2024 Telephone encounter Note * Telephone Encounter - Erica Cannon MD - 02/22/2024 3:10 PM EST Noted. Erica Cannon MD [facility]12-29-2024 Miscellaneous Notes* Telephone Encounter - Erica Cannon MD - 02/22/2024 3:10 PM EST Noted. Erica Cannon MD * Telephone Encounter - Sridevi Isabel LPN - 02/21/2024 8:27 AM EST Spoke with patient and she is unsure if able to complete a urine sample today as son is not available to bring her in. 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. Orders placed [...] reports burning with urination. Protocols used: Urinary [id number] documented in this encounterBerger Hospital12-28-2024 Telephone encounter Note * Telephone Encounter - Sridevi Isabel LPN - 02/21/2024 8:27 AM EST Spoke with patient and she is unsure if able to complete a urine sample today as son is not available to bring her in. 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 If unable to complete sample today will wait till Friday. Agree that if symptoms are worse will go to [facility] or ER if very severe. [facility]12-28-2024 Telephone encounter Note* Telephone Encounter - Sridvei Isabel LPN - 02/21/2024 8:19 AM EST LEFT MESSAGE FOR PATIENT TO CALL OFFICE. [facility]12-28-2024 Telephone encounter Note* Telephone Encounter - Erica Cannon MD - 02/21/2024 3:30 AM EST Should have urine studies done to verify whether UTI and what bacteria is growing (and make sure not developing resistance to antibiotic)--[facility] Not[facility] July went to ER. Orders placed [...] UTI in less than amonth or two. [facility]12-28-2024 Telephone encounter Note* Telephone Encounter - Erica [...] 24, 2024. Authorizing Provider: ERICA CANNON MD [facility]12-28-2024 Miscellaneous Notes* Telephone Encounter - Erica [...] for up to 30 days. Maria Dolores vIan RN February 20, 2024 10:43 AM documented in this encounterBerger Hospital12-27-2024 Telephone encounter Note * Telephone Encounter [...] reports burning with urination. Protocols used: Urinary [id number] [facility]12-27-2024 Telephone encounter Note* Telephone Encounter - Maria [...] Ivan RN February 20, 2024 10:43 AM [facility]12-06-2024 Telephone encounter Note* Telephone Encounter - Erica Cannon MD - 01/30/2024 1:47 PM EST The following approved medication requests have been transmitted electronically. Requested Prescriptions Signed Prescriptions Disp Refills mometasone-formoterol (DULERA) 200-5 mcg/actuation inhaler 1 Each 2 Sig: Inhale 1 Puff as instructed two times a day. Rinse mouth after use. Authorizing Provider: ERICA CANNON MD [facility]12-06-2024 Miscellaneous Notes* Telephone Encounter - Erica [...] 29, 2024 12:10 PM documented in this encounterBerger Hospital12-05-2024 Telephone encounter Note * Telephone Encounter [...] Boyle RN January 29, 2024 12:10 PM [facility]25[facility] Telephone encounter Note* Telephone Encounter - Ruchi Malone LPN - 01/19/2024 11:41 AM EST From last fill. Start date for lorazepam was changed to 01/25/24. [facility]11-25-[facility]24 Miscellaneous Notes* Telephone Encounter - Ruchi [...] as needed for muscle spasm. Carmen Montoya [facility] January 19, 2024 10:19 AM documented in this encounterBerger Hospital11-25-2024 Telephone encounter Note * Telephone Encounter [...] as needed for muscle spasm. Carmen Montoya [facility] January 19, 2024 10:19 AM [facility]-06-2024 Telephone encounter Note* Telephone Encounter - Sridevi Isabel LPN - 12/31/2023 12:58 PM EST Patient is attempting to switch O2 suppliers. She currently receiving O2 supply from [facility] and requesting to switch to [employer]. Had attempted to complete required 6 minute walk test but due to severe knee pain was unable to complete the full 6 minutes. Last office visit and notes from 6 minute walk test have been faxed to [facility]. [facility]11-06-2024 Miscellaneous Notes* Telephone Encounter - Sridevi Isabel LPN - 12/31/2023 12:58 PM EST Patient is attempting to switch O2 suppliers. She currently receiving O2 supply from [facility] and requesting to switch to [employer]. Had attempted to complete required 6 minute walk test but due to severe knee pain was unable to complete the full 6 minutes. Last office visit and notes from 6 minute walk test have been faxed to [facility]. documented in this encounterBerger Hospital11-01-2024 Telephone encounter Note * Telephone Encounter [...] Ivan RN December 26, 2023 10:51 AM [facility]11-01-2024 Miscellaneous Notes* Telephone Encounter - Maria [...] 26, 2023 10:51 AM documented in this encounterBerger Hospital10-04-2024 Instructions* Patient Instructions* Silvestre Jain APRN.CNP - 11/28/2023 1:08 PM EDT [facility], call us to schedule at . documented in this encounterBerger Hospital10-04-2024 History of Present illness Narrative* Silvestre Jain APRN.CNP - 11/28/2023 12:55 PM EDT SUBJECTIVE Meggan [...] nausea and abdominal pain. Prior CT in [facility] did not show any specifics. Would like [...] to PAP machine. WALKER ROLLATOR SEAT WITH 6 WHEELS - RED Diagnosis: Unsteady gait, primary [...] if needsO2 increased at night) Blood-Glucose Meter ([employer]) monitoring kit 1 Each as [...] Lower Extremity, Limited to Breakdown of Skin ([facility]) - 02/20/2022 Comment: Large wound medial thigh; [...] 2016 Depression - 01/24/2016 Type 2 Diabetes ([facility]) - 09/01/2014 Bmi 60.0-69.9, Adult ([facility]) - 06/30/2014 Pulmonary Hypertension ([facility]) - 04/23/2013 Allergic Rhinitis - 07/15/2007 Spinal [...] Anemia, Unspecified - 01/20/2007 Comment: [facility] 03-22-02 ([facility] no polyps, masses or AVMs Anxiety State - 12/09/2006 Generalized Osteoarthrosis, Unspecified Site - 10/29/2006 Esophageal Reflux - 03/16/2005 Comment: EGD in 06-30: no evidence of esophagitis but there is gastritis (H pylori was negative) Chronic Hepatitis, Unspecified ([facility]) - 03/06/2005 Comment: Liver biopsy w/ cholecystectomy Hypertension Comment: Echo at [place] 01-25: LVH, mild TR, LAE, RVE, PASP 38 (mild), no EF documented per Seese Seese 01-07-03: consider GERD for atyp CP, not cath candidate from obesity, doubt cardiac source ECG 03-30: NSR with PVC, lat T flattening, no ischemia/injury (ECG NL in 10-27 at [facility]) Rec for Dobut Echo in 05-28 per [...] 04-04 with the Holter findings Carotids at [place] in 04-04: 1-15% stenosis bilaterally Obstructive Sleep [...] medications.. Silvestre Jain APRN-NIKKY documented in this encounterBerger Hospital10-04-2024 Telephone encounter Note * Telephone Encounter - Aminta Baird - 11/28/2023 11:38 AM EDT Please note: pharmacy also requested a refill of Galzin 25 mg capsules/once a day. It is not on medlist. [facility]10-04-2024 Miscellaneous Notes* Telephone Encounter - Aminta [...] 28, 2023 11:37 AM documented in this encounterBerger Hospital10-04-2024 Telephone encounter Note * Telephone Encounter [...] Aminta Sylvester November 28, 2023 11:37 AM [facility]-04-[facility] Procedure note* Marleni Rice RPFT - [...] NAME: Marleni BRETT Rice PATIENT NAME: Meggan Artia DATE: November 28, 2023 TIME: 11:26 AM Comment: patient was unable to walk any longer. c/o knee pain. [facility]10-04-[facility] Procedure note* Marleni Rice RPFT - [...] longer. c/o knee pain. documented in this encounterBerger Hospital10-04-2024 History of Present illness Narrative* Marleni Rice RPFT - 11/28/2023 11:11 AM EDT PULM FUNCTION: Provider: Silvestre Jain APRN.DIRECTOR [facility]CLEROSIS C[facility] Assisting Tech: Marleni Rice RPFT Oximetry - Ambulation: 1 documented in this encounterBerger Hospital10-01-2024 Telephone encounter Note * Telephone Encounter - Sridevi Isabel LPN - 11/25/2023 11:09 AM EDT Patient schedule 11/28/23 [facility]10-01-2024 Miscellaneous Notes* Telephone Encounter - Sridevi [...] same day. Please advise documented in this encounterBerger Hospital09-27-2024 Telephone encounter Note * Telephone Encounter - Sridevi Isabel LPN - 11/21/2023 4:02 PM EDT Please schedule PFT on 11/28/23 anytime this day Call patient to re-schedule CT scan. [facility]09-27-2024 Telephone encounter Note* Telephone Encounter - Silvestre Jain APRN.CNP - 11/21/2023 4:00 PM EDT I placed the new orders, does this need to go to clerical for scheduling? [facility]09-27-2024 Telephone encounter Note* Telephone Encounter - [...] with Pulmonary also same day. Please advise [facility]09-17-2024 Telephone encounter Note* Telephone Encounter - Sridevi Isabel LPN - 11/11/2023 12:[address] scan scheduled 12/05/23 [facility]09-17-2024 Miscellaneous Notes* Telephone Encounter - Sridevi [...] that the person who brings her to [facility] will be out of town until November [...] change in the pain. documented in this encounterBerger Hospital09-12-2024 Telephone encounter Note * Telephone Encounter - Silvestre Jain APRN.CNP - 11/06/2023 9:50 AM EDT New order placed for CT abd/pelvis with no contrast. Please help with scheduling. Thanks [facility]09-12-2024 Telephone encounter Note* Telephone Encounter - [...] that the person who brings her to [facility] will be out of town until November so she will have no transportation until then. [facility]09-12-[facility]24 Telephone encounter Note* Telephone Encounter - [...] change it to without contrast if needed. [facility]09-11-2024 Telephone encounter Note* Telephone Encounter - Sridevi Isabel LPN - 11/05/2023 5:04 PM EDT Patient states that the stomach cramps is feels at times the pain is getting worse. States getting these cramps 2-4 times a day. Takes tylenol and it does take the edge off. Had tried the dicyclomine 4 times daily and there was no change in the pain. [facility]09-11-2024 Telephone encounter Note* Telephone Encounter - Sridevi Isabel LPN - 11/05/2023 5:04 PM EDT PATIENT NOTIFIED OF SAME. [facility]09-11-2024 Miscellaneous Notes* Telephone Encounter - Sridevi [...] officially/correctly complete the test. documented in this encounterBerger Hospital09-11-2024 Telephone encounter Note * Telephone Encounter - Silvestre Jain APRN.CNP - 11/05/2023 3:42 PM EDT ordered [facility]09-11-2024 Telephone encounter Note* Telephone Encounter - Sridevi Isabel LPN - 11/05/2023 1:26 PM EDT Chelsea is needing a 6 minute walk test to see if she still qualifies for O2 and due to switching O2 supplies they are requesting an updated oximetry. Respiratory therapy is suggesting that provider put in an order for this and they will officially/correctly complete the test. [facility]09-06-2024 Telephone encounter Note* Telephone Encounter - Silvestre Jain APRN.CNP - 10/31/2023 3:08 PM EDT PDMP website checked and validated. All prescriptions have been APPROPRIATELY filled. No suspiciousactivity was identified. 10/31/2023 by Silvestre Jain APRN.CNP [facility]09-06-2024 Miscellaneous Notes* Telephone Encounter - Silvestre [...] 31, 2023 11:34 AM documented in this encounterBerger Hospital09-06-2024 Telephone encounter Note * Telephone Encounter [...] Cr RN October 31, 2023 11:34 AM [facility]-30-2024 Telephone encounter Note* Telephone Encounter - Anh Hazel LPN - 10/24/2023 1:49 PM EDT Patient returned call and went over notes below from Silvestre Jain NP with understanding. Scheduled appt for 11/05/2023 at 11 am. [facility]08-30-2024 Miscellaneous Notes* Telephone Encounter - Anh [...] this. Lexii Fowler RN documented in this encounterBerger Hospital08-30-2024 Telephone encounter Note * Telephone Encounter - Sridevi Isabel LPN - 10/24/2023 11:18 AM EDT LEFT MESSAGE FOR PATIENT TO CALL OFFICE. [facility]08-30-2024 Telephone encounter Note* Telephone Encounter - Silvestre Jain APRN.CNP - 10/24/2023 7:25 AM EDT Can we let Chelsea know that we cannot locate any recent pulse ox records to help support her oxygen use. We can do a repeat 6 minute walk test if she is willing. Please see if willing to do this. [facility]08-28-2024 Telephone encounter Note* Telephone Encounter - Lexii Fowler RN - 10/22/2023 4:42 PM EDT Victorina with [facility] calling. She would like PCP office to know that she does not have any recent oximetry test results on their file and would like office to know this. Lexii Fowler RN [facility] History of Present illness Narrative* Silvestre [...] difficult to get in with dentist with [facility]. Having a lot of pain with this. [...] Continues to work on weight loss. On Mounjaro, still noticing some cravings in the evenings. [...] daily at bedtime. WALKER ROLLATOR SEAT WITH 6 WHEELS - RED Diagnosis: Unsteady gait, primary [...] if needsO2 increased at night) Blood-Glucose Meter ([employer]) monitoring kit 1 Each as [...] Lower Extremity, Limited to Breakdown of Skin ([facility]) - 02/20/2022 Comment: Large wound medial thigh; [...] 2016 Depression - 01/24/2016 Type 2 Diabetes ([facility]) - 09/01/2014 Bmi 60.0-69.9, Adult ([facility]) - 06/30/2014 Pulmonary Hypertension ([facility]) - 04/23/2013 Allergic Rhinitis - 07/15/2007 Spinal [...] Anemia, Unspecified - 01/20/2007 Comment: Colon 03-22-02 ([facility]): no polyps, masses or AVMs Anxiety State - 12/09/2006 Generalized Osteoarthrosis, Unspecified Site - 10/29/2006 Esophageal Reflux - 03/16/2005 Comment: EGD in 06-30: no evidence of esophagitis but there is gastritis (H pylori was negative) Chronic Hepatitis, Unspecified (Hcc) - 03/06/2005 Comment: Liver biopsy w/ cholecystectomy Hypertension Comment: Echo at [facility] 01-25: LVH, mild TR, LAE, RVE, PASP 38 (mild), no EF documented per Seese Seese 01-07-03: consider GERD for atyp CP, not cath candidate from obesity, doubt cardiac source ECG 03-30: NSR with PVC, lat T flattening, no ischemia/injury (ECG NL in 10-27 at [facility]) Rec for Dobut Echo in 05-28 per [...] 04-04 with the Holter findings Carotids at [facility] in 04-04: 1-15% stenosis bilaterally Obstructive Sleep [...] appointment.. Silvestre Jain APRN-NIKKY documented in this encounterBerger Hospital08-26-2024 Telephone encounter Note * Telephone Encounter - Mary Woods RN - 10/20/2023 7:45 PM EDT Patient calling with request for antibiotic for tooth infection. States her jaw has been swollen and painful x 3 days. States she can't get in to see her dentist for a week. Advised appointment andscheduled tomorrow with Silvestre Jain OFFICE SERVICE COORDINATOR. Mary Woods RN [facility]08-26-[facility]24 Miscellaneous Notes* Telephone Encounter - Mary Woods RN - 10/20/2023 7:45 PM EDT Patient calling with request for antibiotic for tooth infection. States her jaw has been swollen and painful x 3 days. States she can't get in to see her dentist for a week. Advised appointment andscheduled tomorrow with Silvestre Jain OFFICE SERVICE COORDINATOR. Mary Woods RN documented in this encounterBerger Hospital08-23-2024 Telephone encounter Note * Telephone Encounter - Lexii Fowler RN - 10/17/2023 8:42 AM EDT Order faxed to [facility]. Patient notified. Lexii Fowler RN [facility]08-23[facility]24 Miscellaneous Notes* Telephone Encounter - Lexii Fowler RN - 10/17/2023 8:42 AM EDT [facility] notified. Lexii Fowler RN * Telephone Encounter - Erica Cannon MD - 10/16/2023 6:28 PM EDT Filed order * Telephone Encounter - Isabell Tan LPN - 10/16/2023 9:19 AM EDT Pt calling stating that her Rolator walker is broken and they tried to repair it but they could notand there is no warranty left on it.. [facility] advised pt that they need a new rx faxed to them so they can get pt another Rolator walker. Pended order that is currently in [facility]. Isabell Tan LPN documented in this encounterBerger Hospital08-22-2024 Telephone encounter Note * Telephone Encounter - Erica Cannon MD - 10/16/2023 6:28 PM EDT Filed order [facility]08-[facility] Telephone encounter Note* Telephone Encounter - [...] walker. Pended order that is currently in [facility]. 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: Patient accepts, visit chaperoned [...] L3 SAB0 IAB0 Ectopic0 Multiple0 Live Births0 Technical Professional History LMP: 02/11/2011, Postmenopausal Age at Menarche: Age at First : Age at Menopause: Technical Professional History Comments: Sexual Activity: Never; No partner [...] 10/29/2006: GENERAL OSTEOARTHROSIS 01/20/2007: Headache(784.0) Comment: [facility] Rheum 12-26: consid Sjogren's, CT chest/MRI head/HYUN/KEO/OSMANY/ANCA/SSA/SSB neg Again reinforced the need to start CPAP on 03-04-07: unable to afford as of 04-03 for insurance issues 07/31/2007: INSOMNIA NOS 01/20/2007: IRON DEFIC ANEMIA NOS Comment: Colon 03-22-02 ([facility]): no polyps, masses or AVMs No [...] DX W/COLLJ SPEC WHEN PFRMD Comment: Colonoscopy mac WC outpt 07/22/06: EGD TRANSORAL BIOPSY SINGLE/MULTIPLE 2001: ESOPHAGOGASTRODUODENOSCOPY TRANSORAL DIAGNOSTIC Comment: EGD 01/30/16: ESOPHAGOGASTRODUODENOSCOPY TRANSORAL DIAGNOSTIC Comment: EGD mac [facility] outpt 03/06/05: IMPLANT MESH OPN HERNIA RPR/DEBRIDEMENT [...] medication updated:Yes EXAM: BP 124/72 Ht 5' 9 (1.75m) Wt 330 lb (149.7kg) LMP 02/11/2011 [...] external genitalia normal, normal Bartholin's glands, urethra, Papineau's glands, no vulvar lesions, no cervical lesions, [...] needed Jame Castañeda MD documented in this encounterBerger Hospital08-05-2024 Telephone encounter Note * Telephone Encounter - Aminta Red LPN - 09/29/2023 3:39 PM EDT [facility] calling and needs Office notes in April for Gel Overlay mattress. 05/23/23 office notes faxed.to [facility]. [facility] Work Phone: 1(728) 723-515708-05-2024 Miscellaneous Notes* Telephone Encounter - Aminta Red LPN - 09/29/2023 3:39 PM EDT [facility] calling and needs Office notes in April for Gel Overlay mattress. 05/23/23 office notes faxed.to [facility]. documented in this encounterBerger Hospital08-05-2024 Telephone encounter Note * Telephone Encounter [...] next office visit in primary care: 11/28/2023 [facility] Please advise. Thank you. Alona Le. [facility]08-05-2024 Miscellaneous Notes* Telephone Encounter - Alona [...] next office visit in primary care: 11/28/2023 [facility] Please advise. Thank you. Alona Le. documented in this encounterBerger Hospital07-31-2024 Telephone encounter Note * Telephone Encounter - Anh Hazel LPN - 09/24/2023 9:08 AM EDT Patient calling she is going to change pharmacy to [facility] so she can get her medications mailed toher. Phoned [facility] to let them know patient switching to them and fax a copy of med list to [phone]. Printed copy of last office visit note and faxed as requested. [facility]07-31[facility] Miscellaneous Notes* Telephone Encounter - Anh Hazel LPN - 09/24/2023 9:08 AM EDT Patient calling she is going to change pharmacy to [facility] so she can get her medications mailed toher. Phoned [facility] to let them know patient switching to them and fax a copy of med list to [phone]. Printed copy of last office visit note and faxed as requested. documented in this encounterBerger Hospital07-29-2024 History of Present illness Narrative* [place], Leticia, [facility] - 09/22/2023 11:30 AM EDT Primary Care [...] achieving adequate control of DM. 01/01: Saw [facility], treated with Omnicef for suspected diverticulitis/cystitis; Lasix [...] mo ago so advised to restart 02/28: [facility] evaluated leg swelling; zaroxolyn dosing frequency was [...] not present. Adherence: denies missed doses. Pharmacy: [id number] [place] [address] - [address] [facility] [phone] [id number] Rx coverage: Payor: [facility] MEDICAID / Plan: [facility] MEDICAID / Product Type: Medicaid / [...] IRON DEFIC ANEMIA NOS 01/20/2007 Colon 03-22-02 ([facility]): no polyps, masses or AVMs Lactose [...] lasix. Patient not taking: Reported on 01/29/2023 [facility] Order: Overnight pulse ox on [...] mouth once daily. WALKER ROLLATOR SEAT WITH 6 WHEELS - RED Diagnosis: Unsteady gait, primary [...] ALT 11 05/23/2023 No results found for: GFR CrCl cannot be calculated (Unknown ideal weight.). [...] primary care pharmacy services. Leticia Echavarria, PharmD, [facility] Primary Care Clinical Pharmacist Time spent: 13 mins documented in this encounterBerger Hospital07-12-2024 Telephone encounter Note * Telephone Encounter - Shant Boyle RN - 09/05/2023 8:27 AM EDT Patient reports she has an appt at [facility] she needs to cancel, and asking for phone number and name ofdoctor she has an appt with. Reports it's an appt for her stomach. Advised patient she has a referral to see general surgery at [facility] for LLQ abdominal pain and diverticulitis, and would need to call [facility] to confirm who the appt is with. Patient agreeable. [facility]07-12-[facility]24 Miscellaneous Notes* Telephone Encounter - Shant Boyle RN - 09/05/2023 8:27 AM EDT Patient reports she has an appt at [facility] she needs to cancel, and asking for phone number and name ofdoctor she has an appt with. Reports it's an appt for her stomach. Advised patient she has a referral to see general surgery at [facility] for LLQ abdominal pain and diverticulitis, and would need to call [facility] to confirm who the appt is with. Patient agreeable. documented in this encounterBerger Hospital07-11-2024 Telephone encounter Note * Telephone Encounter [...] Fowler RN September 04, 2023 9:59 AM [facility]07-11-2024 Miscellaneous Notes* Telephone Encounter - Lexii [...] 04, 2023 9:59 AM documented in this encounterBerger Hospital07-05-2024 Telephone encounter Note * Telephone Encounter - Sridevi Isabel LPN - 08/29/2023 2:16 PM EDT Home care Certification Form 485 received from [facility]. For cert dates 05/22/23-07/20/23 that were signed on 06/10/23. New Certification Patient's home health 485 form / care plan for stated certification period reviewed and signed. Relevant medical records were reviewed. No changes were indicated [facility]07-05[facility]24 Miscellaneous Notes* Telephone Encounter - Sridevi Isabel LPN - 08/29/2023 2:16 PM EDT Home care Certification Form 485 received from [facility]. For cert dates 05/22/23-07/20/23 that were signed on 06/10/23. New Certification Patient's home health 485 form / care plan for stated certification period reviewed and signed. Relevant medical records were reviewed. No changes were indicated documented in this encounterBerger Hospital07-03-2024 Telephone encounter Note * Telephone Encounter - Ruchi Malone LPN - 08/27/2023 3:34 PM EDT Images from the original note were not included. Electronic PA completed for mounajro 15mg. This was approved. Prior authorization approved Payer: [facility] Your PA request for [id number] was approved for 365 days. The PA# assigned is [id number]. Approved medication: Mounjaro. Approval Details Authorization number: [id number] Authorized from August 27, 2023 to August 25, 2024 Electronic appeal: Not supported View History Medication Being Authorized tirzepatide (MOUNJARO) 15 mg/0.5 mL pen injector Inject 15 mg subcutaneously one time a week. Dispense: 4 Each Refills: 2 Start: 08/27/2023 Class: Normal Diagnoses: Type 2 diabetes (HCC) This order has been released to its destination. To be filled at: [place], [place] [address] - [address] - [phone] [facility]07-03-2024 Miscellaneous Notes* Telephone Encounter - Ruchi Malone LPN - 08/27/2023 3:34 PM EDT Images from the original note were not included. Electronic PA completed for mounajro 15mg. This was approved. Prior authorization approved Payer: [facility] Your PA request for [id number] was approved for 365 days. The PA# assigned is [id number]. Approved medication: Mounjaro. Approval Details Authorization number: [id number] Authorized from August 27, 2023 to August 25, 2024 Electronic appeal: Not supported View History Medication Being Authorized tirzepatide (MOUNJARO) 15 mg/0.5 mL pen injector Inject 15 mg subcutaneously one time a week. Dispense: 4 Each Refills: 2 Start: 08/27/2023 Class: Normal Diagnoses: Type 2 diabetes (HCC) This order has been released to its destination. To be filled at: [place], [place] [address] - [address] - [phone] documented in this encounterBerger Hospital07-03-2024 History of Present illness Narrative* Silvestre Jain APRN.[facility] - 08/27/2023 1:41 PM EDT SUBJECTIVE Meggan Arita is a 62 year old female here today for a check up on her medical problems. Chief Complaint Patient presents with: ER F/U: [facility] ER 08/04/2023 for possible kidney stone but [...] follow up. Seen in the ER at [facility] on 08/04/2023. Diagnosed with diverticulitis as seen on CT scan. Today she notes she is still with abdominal pain. Rates 09/02. Not getting better. No nausea or vomiting. [...] for 10 days. WALKER ROLLATOR SEAT WITH 6 WHEELS - RED Diagnosis: Unsteady gait, primary [...] Diabetes (Hcc) - 09/01/2014 Bmi 60.0-69.9, Adult ([facility]) - 06/30/2014 Pulmonary Hypertension ([facility]) - 04/23/2013 Allergic Rhinitis - 07/15/2007 Spinal [...] Anemia, Unspecified - 01/20/2007 Comment: Colon 03-22-02 ([facility]): no polyps, masses or AVMs Anxiety State - 12/09/2006 Generalized Osteoarthrosis, Unspecified Site - 10/29/2006 Esophageal Reflux - 03/16/2005 Comment: EGD in 06-30: no evidence of esophagitis but there is gastritis (H pylori was negative) Chronic Hepatitis, Unspecified ([facility]) - 03/06/2005 Comment: Liver biopsy w/ cholecystectomy Hypertension Comment: Echo at [facility] 01-25: LVH, mild TR, LAE, RVE, PASP 38 (mild), no EF documented per Seese Seese 01-07-03: consider GERD for atyp CP, not cath candidate from obesity, doubt cardiac source ECG 03-30: NSR with PVC, lat T flattening, no ischemia/injury (ECG NL in 10-27 at [facility]) Rec for Dobut Echo in 05-28 per [...] 04-04 with the Holter findings Carotids at [facility] in 04-04: 1-15% stenosis bilaterally Obstructive Sleep [...] 562.11, ICD10: K57.92 (primary diagnosis) Will see [facility] general surgery to discuss colonoscopy. Since still [...] medications.. Silvestre Jain APRN-NIKKY documented in this encounterBerger Hospital06-27-2024 Telephone encounter Note * Telephone Encounter - Treva Cr RN - 08/21/2023 10:54 AM EDT Patient calls back and reschedules appointment to 08/27/2023. [facility] Miscellaneous Notes* Telephone Encounter - Treva [...] patient to return call. documented in this encounterBerger Hospital06-26-2024 Telephone encounter Note * Telephone Encounter - Sridevi Isabel LPN - 08/20/2023 1:29 PM EDT Patient has an appointment on 08/22/23 and 08/25/23. Silvestre is willing to combine both appointments. Which appointment would patient like to keep? Message left asking patient to return call. [facility] Telephone encounter Note* Telephone Encounter - [...] Cr RN August 16, 2023 9:26 AM [facility]-22-2024 Miscellaneous Notes* Telephone Encounter - Treva [...] 16, 2023 9:26 AM documented in this encounterBerger Hospital06-18-2024 History of Present illness Narrative* Tom [...] Objective: Patient presents to clinic ambulating in [facility] Vasc: DP and PT pulses are palpable [...] foot care. RIC 05/08/23 documented in this encounterBerger Hospital06-18-2024 Instructions* Patient Instructions* Tom Bolaños - [...] or sore from your shoes, do not pop it. Apply a bandage and wear a differentpair of shoes. Take Care of Your Toenails Cut toenails after bathing, when they are soft. Cut toenails straight across and smooth with a nail file. Avoid cutting into the corners of toes. Do not cut cuticles. If you have neuropathy (or decreased sensation in your feet) a kaiawhina kohanga reo should always cut your toenails. Be Careful [...] your shoes are too tight. Perform the footwear test described below. Footwear Test Use this simple [...] Go to your health care provider or kaiawhina kohanga reo to treat these conditions. documented in this encounterBerger Hospital06-14-2024 Telephone encounter Note * Telephone Encounter - Erica Cannon MD - 08/08/2023 8:11 PM EDT Noted. Follow up sooner if needed [facility]-14[facility]24 Miscellaneous Notes* Telephone Encounter - Erica Cannon MD - 08/08/2023 8:11 PM EDT Noted. Follow up sooner if needed * Telephone Encounter - Sujata Dotson LPN - 08/06/2023 9:42 AM EDT Patient calling stating that her home health nurse said she had a UTI. Patient then went to urgent care and dx with kidney stones. Patient was then sent to [facility] ER and dx with diverticulitis treated with 2 antibiotics. Patient then needed a follow up. Appointment made for 08/15/23 with Silvestre. Please review documented in this encounterBerger Hospital06-12-2024 Telephone encounter Note * Telephone Encounter - Sujata Dotson LPN - 08/06/2023 9:42 AM EDT Patient calling stating that her home health nurse said she had a UTI. Patient then went to urgent care and dx with kidney stones. Patient was then sent to [facility] ER and dx with diverticulitis treated with 2 antibiotics. Patient then needed a follow up. Appointment made for 08/15/23 with Silvestre. Please review [facility]-11-2024 Telephone encounter Note* Telephone Encounter - Gertrudis Cantrell RN - 08/05/2023 8:29 AM EDT patient was seen in on 08/03 encounter is being closed [facility]06-11[facility]24 Miscellaneous Notes* Telephone Encounter - Gertrudis Cantrell, SHELBY - 08/05/2023 8:29 AM EDT patient was seen in on 08/03 encounter is being closed * [...] urine culture was done because she says I didn't pee in a cup. She says she will probably come to today. Mary Woods, SHELBY * Telephone Encounter - Erica Cannon MD - 07/31/2023 8:06 AM EDT Need more info from nurse results of check for UTI. Was a urine culture also done? * Telephone Encounter - Rina Rincon LPN - 07/30/2023 10:14 AM EDT Attempted to reach [facility] office to inquire about the urine culture results. Decided not to leave a message on [facility] Co-ordinater voicemail, will attempt to call back. [...] nurse. please review and advise. patients uses [facility] [place] patient needs called back with information documented in this encounterBerger Hospital06-10-2024 History of Present illness Narrative* Fernanda [...] will take her now. documented in this encounterBerger Hospital06-06-2024 Telephone encounter Note * Telephone Encounter - Erica Cannon MD - 07/31/2023 5:10 PM EDT I have not seen any results to review in the computer. Noted plans to go to [facility] but that pain improved with drinking more fluids. [facility]-06[facility]24 Telephone encounter Note* Telephone Encounter - Mary Woods RN - 07/31/2023 1:16 PM EDT Patient calling to ask if PCP reviewed urine results. She says her symptoms of burning are improving with increased water intake and cranberry tablets. She says she doesn't think a urine culture was done because she says I didn't pee in a cup. She says she will probably come to today. Mary Woods, RN [facility]06-06-2024 Telephone encounter Note* Telephone Encounter - Erica Cannon MD - 07/31/2023 8:59 AM EDT The following approved medication requests have been transmitted electronically. Requested Prescriptions Pending Prescriptions Disp Refills buPROPion XL (WELLBUTRIN XL) 300 mg 24 hr tablet [Pharmacy Med Name: BUPROPION HCL XL 300 MG TABLET] 30 tablet 3 Sig: take 1 tablet by mouth once daily Erica Cannon MD [facility]06-06-2024 Miscellaneous Notes* Telephone Encounter - Erica [...] you. Gay Clements LPN. documented in this encounterBerger Hospital06-06-2024 Telephone encounter Note * Telephone Encounter - Erica Cannon MD - 07/31/2023 8:06 AM EDT Need more info from nurse results of check for UTI. Was a urine culture also done? [facility]-05[facility]24 Telephone encounter Note* Telephone Encounter - Rina Rincon LPN - 07/30/2023 10:14 AM EDT Attempted to reach [facility] office to inquire about the urine culture results. Decided not to [facility] a [facility], will attempt to call back. Rina Rincon LPN [facility]-05-2024 Telephone encounter Note* Telephone Encounter - [...] Please advise. Thank you. Gay Clements LPN. [facility]06-04-2024 Telephone encounter Note* Telephone Encounter - [...] nurse. please review and advise. patients uses [facility] [place] patient needs called back with information [facility]05-28-2024 Telephone encounter Note* Telephone Encounter - Muriel Burgess LPN - 07/22/2023 2:32 PM EDT Pt notified of provider's message. Muriel Burgess LPN [facility]05-28-2024 Miscellaneous Notes* Telephone Encounter - Muriel [...] be sent to pcp. documented in this encounterBerger Hospital05-28-2024 Telephone encounter Note * Telephone Encounter - Leigh Stone MA - 07/22/2023 1:19 PM EDT LM for patient to call office. Leigh Stone MA [facility]05-27-2024 Telephone encounter Note* Telephone Encounter - [...] 5 days. Authorizing Provider: ERICA CANNON MD [facility]05-25-2024 Telephone encounter Note* Telephone Encounter - [...] requests this message be sent to pcp. [facility]05-17-2024 Telephone encounter Note* Telephone Encounter - Silvestre Jain APRN.CNP - 07/11/2023 12:11 PM EDT A refill on her flexeril has been sent. [facility]05-17-2024 Miscellaneous Notes* Telephone Encounter - Silvestre [...] advise, Treva Cr RN documented in this encounterBerger Hospital05-17-2024 Miscellaneous Notes* Telephone Encounter - Sridevi [...] AM EDT A fax was received from [employer] asking for an office note in the [...] in 2019. Please advise. documented in this encounterBerger Hospital05-17-2024 Telephone encounter Note * Telephone Encounter - Sridevi Isabel LPN - 07/11/2023 9:19 AM EDT Patient notified for need of an appointment to discuss O2. She wants to wait until her next appointment in August to discuss. [facility]-17-2024 Telephone encounter Note* Telephone Encounter - Silvestre Jain APRN.CNP - 07/11/2023 7:36 AM EDT To have all of the information needed she will need to address this with an office visit. If she can wait until her next follow up we can address it then but if this needs done sooner then bring her in. Thanks. [facility]05-17-2024 Telephone encounter Note* Telephone Encounter - Sridevi Isabel LPN - 07/11/2023 7:10 AM EDT A fax was received from [employer] asking for an office note in the [...] Oximetry report was in 2019. Please advise. [facility]05-16-2024 Telephone encounter Note* Telephone Encounter - [...] Please review and advise, Treva Cr RN [facility]05-15-2024 Telephone encounter Note* Telephone Encounter - Maria Dolores Ivan RN - 07/09/2023 11:25 AM EDT Call placed to patient and notified of below message. Patient verbalizes understanding. Maria Dolores Ivan RN T [facility]05-15-2024 Miscellaneous Notes* Telephone Encounter - Maria [...] she is third on the list at [facility] to receive medication and is asking what she should do. Patient reports she still has Mounjaro 10 mg. Instructed patient to see if she can get increased dose from another pharmacy or continue using the10 mg until able to get the increased dose. Patient was going to check with [facility]'s to get an update on dispense date. Patient requested provider be updated that she is not taking the increased dose. Maria Dolores Ivan RN documented in this encounterBerger Hospital05-15-2024 Telephone encounter Note * Telephone Encounter - Silvestre Jain APRN.CNP - 07/09/2023 9:27 AM EDT Noted and agree, taking the 10 while waiting for the 12.5 is okay. [facility] Telephone encounter Note* Telephone Encounter - Maria Dolores Ivan RN - 07/09/2023 8:18 AM EDT Patient calls to update provider that she hasn't been able to receive Mounjaro 12.5 mg. She reportsthat she is third on the list at [facility] to receive medication and is asking what she should do. Patient reports she still has Mounjaro 10 mg. Instructed patient to see if she can get increased dose from another pharmacy or continue using the10 mg until able to get the increased dose. Patient was going to check with [facility] to get an update on dispense date. Patient requested provider be updated that she is not taking the increased dose. Maria Dolores Ivan RN [facility]05-10[facility]24 Telephone encounter Note* Telephone Encounter - Ruchi Malone LPN - 07/04/2023 4:41 PM EDT Fax rec'd from [facility]. The tirzepatide was approved from 07/04/23 to 07/02/2024. Pharmacy notified. [facility]05-10[facility]24 Miscellaneous Notes* Telephone Encounter - Ruchi Malone LPN - 07/04/2023 4:41 PM EDT Fax rec'd from [facility]. The tirzepatide was approved from 07/04/23 to [...] average of blood sugars) per ADA guidelines ([place] Diabetes Association) and A1C trends including current value (within last 6 months) A patient specific A1C goal if less than 7% and A current A1C (within the last 6 months). The [facility] Policy for Medical Necessity as posted on the [facility] website and [facility] Preferred Drug List criteriawere reviewed and per [place] Administrative Code Rule 5160-1-01 (C) and (B), [...] available through the community. documented in this encounterBerger Hospital05-10-2024 History of Present illness Narrative* Silvestre Jain APRN.CNP - 07/04/2023 4:15 PM EDT Can discuss at up august appointment. * Hallie Clement RN - 07/03/2023 9:23 AM EDT COLONOSCOPY PATIENT OUTREACH Action/FYI Colonoscopy Recall Patient identified by Name and : Yes. --- OUTREACH OUTCOME ACTION: Consult- Telephone Call- Pt is overdue for screening colonoscopy. Pt needs consult due to medical history and/or medications. Please call patient and schedule appointment with General Surgery Provider. Hallie Clement RN documented in this encounterBerger Hospital05-07-2024 Telephone encounter Note * Telephone Encounter - Ruchi Malone LPN - 07/01/2023 9:43 AM EDT Appeal response rec'd noting this does not meet the urgent time frame. It is not jeopardize the members health. The appeal will be reviewed within the standard time of 15 days. [facility] Telephone encounter Note* Telephone Encounter - Ruchi Malone LPN - 06/30/2023 4:37 PM EDT APPEAL LETTER FAXED. [facility] Telephone encounter Note* Telephone Encounter - [...] average of blood sugars) per ADA guidelines ([place] Diabetes Association) and A1C trends including current value (within last 6 months) A patient specific A1C goal if less than 7% and A current A1C (within the last 6 months). The [facility] Policy for Medical Necessity as posted on the [facility] website and [facility] Preferred Drug List criteriawere reviewed and per [place] Administrative Code Rule 5160-1-01 (C) and (B), [...] that might be available through the community. [facility]05-06-[facility]24 Telephone encounter Note* Telephone Encounter - Leticia Echavarria RPh - 06/30/2023 11:25 AM EDT During PharmD appt today, pt noted tolerating Mounjaro 10mg well. Has completed 4 doses and is due for refill of medication. She has successfully lost weight and is interested in increasing the dose.Order for 12.5mg pens pended for PCP signature. Pt prefers script be sent to [facility]. Requested Prescriptions Pending Prescriptions Disp Refills tirzepatide (MOUNJARO) 12.5 mg/0.5 mL pen injector 2 mL 5 Sig: Inject 12.5 mg subcutaneously one time a week. Leticia Echavarria RPh [facility] Work Phone: 1(136) 340-629405-06-2024 Miscellaneous Notes* Telephone Encounter - Leticia Echavarria RPh - 06/30/2023 11:25 AM EDT During PharmD appt today, pt noted tolerating Mounjaro 10mg well. Has completed 4 doses and is due for refill of medication. She has successfully lost weight and is interested in increasing the dose.Order for 12.5mg pens pended for PCP signature. Pt prefers script be sent to [facility]. Requested Prescriptions Pending Prescriptions Disp Refills tirzepatide (MOUNJARO) 12.5 mg/0.5 mL pen injector 2 mL 5 Sig: Inject 12.5 mg subcutaneously one time a week. Leticia Echavarria RPh documented in this encounterBerger Hospital05-06-2024 History of Present illness Narrative* Leticia [...] achieving adequate control of DM. 01/01: Saw [facility], treated with Omnicef for suspected diverticulitis/cystitis; Lasix [...] mo ago so advised to restart 02/28: [facility] evaluated leg swelling; zaroxolyn dosing frequency was increased and Trulicity was switched to Mounjaro 03/05: pt had not yet started Mounjaro or increased Farxiga, so advised to do so February: pt noted diarrhea, Mounjaro was decreased and Farxiga stopped 03/26: advised to drink more water, work on dietary mods 04/16: Mounjaro increased 3/11: contacted office about infected tooth 05/06: patient [...] Was able to get Mounjaro 10mg from [facility]. Just used her last pen on [...] not present. Adherence: denies missed doses. Pharmacy: [id number] [place] [address] - [address] [phone] Rx coverage: Payor: [facility] MEDICA[facility] / Plan: [facility] MEDICAID / Product Type: Medicaid / [...] IRON DEFIC ANEMIA NOS 01/20/2007 Colon 03-22-02 ([facility]): no polyps, masses or AVMs Lactose [...] mouth once daily. WALKER ROLLATOR SEAT WITH 6 WHEELS - RED Diagnosis: Unsteady gait, primary osteoarthritis both knees, decreased mobility Zinc Acetate, Oral, 25 mg (zinc) cap Take 1 capsule by mouth once daily. Exam: [facility] 02/11/2011 Last 3 Encounter BP Readings: Date: [...] ALT 11 05/23/2023 No results found for: GFR CrCl cannot be calculated (Unknown ideal weight.). [...] 09/21. Patient verbalized understanding of instructions. Leticia Echavarria, Yue, BCPS Primary Care Clinical Pharmacist Time spent: 10 mins documented in this encounterBerger Hospital05-03-2024 Telephone encounter Note * Telephone Encounter - Sridevi Isabel LPN - 06/27/2023 12:33 PM EDT PATIENT NOTIFIED OF SAME. Will call back if decides to proceed with Lymphedema Therapy. [facility]05-03-[facility] Miscellaneous Notes* Telephone Encounter - Sridevi Isabel LPN - 06/27/2023 12:33 PM EDT PATIENT NOTIFIED OF SAME. Will call back if decides to proceed with Lymphedema Therapy. * Telephone Encounter - Silvestre Jain APRN.CNP - 06/27/2023 7:53 AM EDT I would recommend she give it some more time with being on the higher dose of Mounjaro since weightloss is a process, we could also consider PT for lymphedema therapy and see if that is helpful but often times they cannot do this at home so with her having [facility] I'm not sure how that would work [...] LPN * Telephone Encounter - Silvestre Jain APRN.NIKKY - 06/25/2023 12:58 PM EDT That is [...] is difficult to walk. Mary Woods RN documented in this encounterBerger Hospital05-03-2024 Telephone encounter Note * Telephone Encounter - Sridevi Isabel LPN - 06/27/2023 12:30 PM EDT Corrected order has been faxed. [facility]05-03-2024 Miscellaneous Notes* Telephone Encounter - Sridevi [...] for insurance to cover. Mary Woods, RN documented in this encounterBerger Hospital05-03-2024 Telephone encounter Note * Telephone Encounter [...] this at home so with her having [facility] I'm not sure how that would work for her if she has to go somewhere for the lymphedema treatments. [facility]05-03-2024 Telephone encounter Note* Telephone Encounter - Silvestre Jain APRN.CNP - 06/27/2023 7:52 AM EDT I wrote this on the order, can we please refax. Thanks. [facility]05-02-2024 Telephone encounter Note* Telephone Encounter - [...] care: 08/25/2023 Thank you. Nanci Dorado LPN. [facility]05-02-2024 Miscellaneous Notes* Telephone Encounter - Nanci [...] you. Nanci Dorado LPN. documented in this encounterBerger Hospital05-01-2024 Telephone encounter Note * Telephone Encounter - Mary Woods RN - 06/25/2023 4:32 PM EDT Patient calling to say [facility] tells her the order for the hospital bed needs to say the motor is burned out and the bed is no longer in warranty in order to replace it and for insurance to cover. Mary Woods, RN [facility]05-01-2024 Telephone encounter Note* Telephone Encounter - Daphne Ochoa LPN - 06/25/2023 1:59 PM EDT Patient is asking how to get rid of that area. Please advise. [facility]05-01-2024 Telephone encounter Note* Telephone Encounter - Rina Rincon LPN - 06/25/2023 1:52 PM EDT Message left on voicemail to call office for update. Rina Rincon LPN [facility]05-01-2024 Telephone encounter Note* Telephone Encounter - Sridevi Isabel LPN - 06/25/2023 1:30 PM EDT Order faxed to [facility]. [facility]05-01-2024 Miscellaneous Notes* Telephone Encounter - Sridevi [...] for hospital bed to be faxed to [facility]. She says she got the current bed in 2021 and the motor has stopped working. Mary Woods, RN documented in this encounterBerger Hospital05-01-2024 Telephone encounter Note * Telephone Encounter - Silvestre Jain APRN.[facility] - 06/25/2023 12:58 PM EDT That is impressive how well the Dania is now working! This is great for her. She may have lost more around the thigh area than is obvious but too some of the swelling may be more a lymphedema thanfat tissue or fluid collection. [facility]05-01-2024 Telephone encounter Note* Telephone Encounter - Silvsetre Jain APRN.CNP - 06/25/2023 12:57 PM EDT Order placed, can we please fax it. Thanks. [facility]05-01-2024 Telephone encounter Note* Telephone Encounter - [...] is difficult to walk. Mary Woods RN [facility]05-01-2024 Telephone encounter Note* Telephone Encounter - Mary Woods RN - 06/25/2023 12:26 PM EDT Patient calling with request for order for hospital bed to be faxed to [facility]. She says she got the current bed in 2021 and the motor has stopped working. Mary Woods, RN [facility]04-24-[facility]24 Telephone encounter Note* Telephone Encounter - Sridevi Isabel LPN - 06/18/2023 10:47 AM EDT Update office notes have been faxed to [facility]. [facility]04-24-2024 Miscellaneous Notes* Telephone Encounter - Sridevi Isabel LPN - 06/18/2023 10:47 AM EDT Update office notes have been faxed to [facility]. * Telephone Encounter - Silvestre Jain APRN.CNP - 06/17/2023 4:41 PM EDT I added to the addendum, can we please resend it. Thanks * Telephone Encounter - Muriel Burgess LPN - 06/17/2023 2:09 PM EDT Jaimie from [facility] calls back to check on addendum of 05/22 OV in regards to non- invasive ventilator. In addendum it says Cpap therapy and it has to say non- invasive ventilator. Fax addended OV note to: [phone]. Muriel Burgess LPN * Telephone Encounter - [...] to low. Please advise. documented in this encounterBerger Hospital04-24-2024 Telephone encounter Note * Telephone Encounter - Silvestre Jain APRN.CNP - 06/18/2023 7:59 AM EDT See other encounter regarding this. [facility]04-24-2024 Miscellaneous Notes* Telephone Encounter - Silvestre [...] with pcp. Fax addended OV notes to: [phone]. Muriel Burgess LPN documented in this encounterBerger Hospital04-23-2024 Telephone encounter Note * Telephone Encounter - Silvestre Jain APRN.NIKKY - 06/17/2023 4:41 PM EDT I added to the addendum, can we please resend it. Thanks [facility]04-23-20[facility] Telephone encounter Note* Telephone Encounter - Muriel Burgess LPN - 06/17/2023 2:09 PM EDT Jaimie from [facility] calls back to check on addendum of 05/22 OV in regards to non- invasive ventilator. In addendum it says Cpap therapy and it has to say non- invasive ventilator. Fax addended OV note to: [phone]. Muriel Burgess LPN [facility]04-19-2024 Telephone encounter Note* Telephone Encounter - Silvestre Jain APRN.NIKKY - 06/13/2023 9:01 AM EDT Noted that [...] she gets great benefit from this also. T [facility]04-19-2024 Telephone encounter Note* Telephone Encounter - Sridevi Isabel LPN - 06/13/2023 8:51 AM EDT PATIENT NOTIFIED OF SAME. She states that she using the O2 primary at night with CPAP therapy. On occasion she will use it during the day and is using 2 l/m of O2. [facility]04-19-2024 Telephone encounter Note* Telephone Encounter - [...] she use (l/m) and how often? Thanks! [facility]04-17-2024 Telephone encounter Note* Telephone Encounter - [...] also be going to low. Please advise. [facility]04-15-2024 Telephone encounter Note* Telephone Encounter - [...] with pcp. Fax addended OV notes to: [phone]. Muriel Burgess LPN [facility]04-10-2024 History of Present illness Narrative* Leticia Echavarria, [facility] - 06/04/2023 1:00 PM EDT Primary Care Pharmacy Visit CC (Reason for Consult): Diabetes (E11.9) Type 2 diabetes (HCC) (primary encounter diagnosis) Goal: A1c < 7% Last Collaborating Provider Visit: 05/23/23 Meggan Arita is a 62 year old female presenting for follow up visit telephone call. Patient consents to pharmacy collaborative practice agreement. Interim Events: Per referral notes: Patient cannot tolerate Trulicity and will be trying Farxiga. Needs help with adjusting and/or changing meds as tolerated and as needed for weight loss and DM control. Nov 2022: Previously worked with PharmD, was discharged back to PCP for DM mngt in November 2022 dueto achieving adequate control of DM. 01/01: Saw [facility], treated with Omnicef for suspected diverticulitis/cystitis; Lasix [...] mo ago so advised to restart 02/28: [facility] evaluated leg swelling; zaroxolyn dosing frequency was [...] of Mounjaro was 2 weeks ago. Said [facility] called and they have the 10mg of Mounjaro. Patient had all scripts transferred to [facility]. Plans to take the 10mg pen [...] not present. Adherence: denies missed doses. Pharmacy: [id number] - [place] [address] - [address] [facility] [phone] Rx coverage: Payor: [facility] MEDICA[facility] / Plan: [facility] MEDICAID / Product Type: Medicaid / [...] IRON DEFIC ANEMIA NOS 01/20/2007 Colon 03-22-02 ([facility]): no polyps, masses or AVMs Lactose [...] mouth once daily. WALKER ROLLATOR SEAT WITH 6 WHEELS - RED Diagnosis: Unsteady gait, primary osteoarthritis both knees, decreased mobility Zinc Acetate, Oral, 25 mg (zinc) cap Take 1 capsule by mouth once daily. Exam: [facility] 02/11/2011 Last 3 Encounter BP Readings: Date: [...] ALT 11 05/23/2023 No results found for: GFR CrCl cannot be calculated (Unknown ideal weight.). [...] 06/29. Patient verbalized understanding of instructions. Leticia Echavarria, Yue, BCPS Primary Care Clinical Pharmacist Time spent: 25 mins documented in this encounterBerger Hospital04-10-2024 Miscellaneous Notes* Telephone Encounter - Ruchi Malone LPN - 06/04/2023 9:49 AM EDT Faxed appeal request and office notes to [phone]. * Telephone Encounter - Leticia Echavarria RPh - 06/04/2023 8:55 AM EDT Unlikely that Mounjaro is available at this time. Can we please submit an appeal documenting that the patient has tried and not tolerated Byetta, Trulicity, Ozempic, and Farxiga? Thanks, Leticia Echavarria, PharmD, [facility] Primary Care Clinical Pharmacist * [...] (at the same time) per ADA guidelines ([place] Diabetes Association) and, 2. Member has documented [...] Lower Cost Medications Medical Necessity Policy and [place] UPD The [employer] Policy for Medical Necessity and[facility] Preferred Drug List criteria were reviewed and per [place] Administrative Code Rule 5160-1-01 (C) and (B), [...] might be available through the community. Payer: [facility] Electronic appeal: Not supported View History Notes [...] To be filled at: [id number] - [place] [address] - [address] [facility] [phone] documented in this encounterBerger Hospital04-06-2024 Telephone encounter Note * Telephone Encounter - Mary Woods RN - 05/31/2023 8:40 AM EDT Spoke with patient. [facility] pharmacy tells her she need a prior authorization for Rybelsus. PRIOR AUTHORIZATION Medication for Prior Authorization: Rybelsus Other formulary meds available : NO Insurance Company: [employer] phone number: Patient insurance ID number: [id number] Mary Woods RN [facility]04-06-2024 Miscellaneous Notes* Telephone Encounter - Mary Woods RN - 05/31/2023 8:40 AM EDT Spoke with patient. [facility] pharmacy tells her she need a prior authorization for Rybelsus. PRIOR AUTHORIZATION Medication for Prior Authorization: Rybelsus Other formulary meds available : NO Insurance Company: [employer] phone number: Patient insurance ID number: [id number] Mary Woods RN * Telephone Encounter - [...] if that is Silvestre's suggestion. Send to [facility] please. Pt would like medication sent [...] pen to see if that is available. Gavipinmideet have to call around to different pharmacies to check on that dose's availability. I would specifically have her call [facility] (in addition to other local pharmacies) [...] EDT Patient calling to let provider know [facility] tells her Mounjaro is out of stock and on backorder. This nurse called and pharmacist says all doses are on backorder at this time. Patient says she called other pharmacies and they tell her the same. She says she cannot take Ozempic nor Trulicity. See Pharm D note 05/15/23. Please review and advise. Mary Woods RN documented in this encounterBerger Hospital04-05-2024 Telephone encounter Note * Telephone Encounter - Silvestre Jain APRN.CNP - 05/30/2023 3:32 PM EDT This has been sent. Please let her know. Thanks! [facility]04-05-2024 Telephone encounter Note* Telephone Encounter - Lauren Seo RN - 05/30/2023 3:23 PM EDT Pt states she has called around to several pharmacies including [facility] with no luck. Pt states sheis okay to use Rybelsus in the meantime if that is Silvestre's suggestion. Send to [facility]. Pt would like medication sent today please and call her when prescription has gone. [facility]04-05-2024 Telephone encounter Note* Telephone Encounter - Aminta Red LPN - 05/30/2023 3:03 PM EDT Pt. informed will call [facility] and let us know. [facility]04-05-2024 Telephone encounter Note* Telephone Encounter - Silvestre Jain APRN.CNP - 05/30/2023 2:11 PM EDT I spoke with Leticia from pharmacy, her suggestion: first choice would be to try ordering a different dose in the pen to see if that is available. Gailmight have to call around to different pharmacies to check on that dose's availability. I would specifically have her call [facility] (in addition to other local pharmacies) during her search, since being an independent pharmacy may allow them to have different med access than chain pharmacies. If she can't find it anywhere then I think it would be reasonable to try the pill Rybelsus. [facility]04-05-2024 Telephone encounter Note* Telephone Encounter - Treva Cr RN - 05/30/2023 12:26 PM EDT Patient calls back asking what she should do? Patient is out of injections. Treva Cr RN [facility]04-01-2024 Telephone encounter Note* Telephone Encounter - Mary Woods RN - 05/26/2023 5:20 PM EDT Patient calling to let provider know [facility] tells her Momaria t is out of stock and on backorder. This nurse called and pharmacist says all doses are on backorder at this time. Patient says she called other pharmacies and they tell her the same. She says she cannot take Ozempic nor Trulicity. See Pharm D note 05/15/23. Please review and advise. Mary Woods RN [facility]04-01-2024 Miscellaneous Notes* Telephone Encounter - Lili Cummings RN - 05/26/2023 5:00 PM EDT Pt called and is notified of providers results and instructions. Pt voices understanding. Lili Cummings RN * Telephone Encounter - Silvestre Jain APRN.CNP - 05/26/2023 4:28 PM EDT Please let [...] capsule to 2 capsules daily. Silvestre Jain APRN.CNP * Telephone Encounter - Anh HazelISAKN - 05/26/2023 10:38 AM EDT Patient calling [...] Abs Lymph 1.00 - 4.00 k/uL 1.00 [place]% % 11.3 Abs [place] <0.87 k/uL 0.74 Eosin% % 3.4 Abs [...] (L) Low (H) High documented in this encounterBerger Hospital03-27-2024 Telephone encounter Note * Telephone Encounter - Silvestre Jain APRN.CNP - 05/21/2023 1:10 PM EDT We can discuss if retirement is needed with her visit 05/22 and include that in the documentation for the visit. [facility]03-27-2024 Miscellaneous Notes* Telephone Encounter - Silvestre Jain APRN.CNP - 05/21/2023 1:10 PM EDT We can discuss if retirement is needed with her visit 05/22 and include that in the documentation for the visit. * Telephone Encounter - Deirdre Jacob LPN - 05/21/2023 8:40 AM EDT Vinicio calling from [facility], she received orders for PT & is asking for orders for Long-Term also? She received RIC notes but they were from pharmacy, she needs them from primary care in the last 90days. Notes were faxed to her from 04/14/23 VV appt with Silvestre. PH: [phone] FAX: [phone] Deirdre Jacob LPN documented in this encounterBerger Hospital03-27-2024 Telephone encounter Note * Telephone Encounter - Deirdre Jacob LPN - 05/21/2023 8:40 AM EDT Vinicio calling from [facility], she received orders for PT & is asking for orders for Long-Term also? She received RIC notes but they were from pharmacy, she needs them from primary care in the last 90days. Notes were faxed to her from 04/14/23 VV appt with Silvestre. PH: [phone] FAX: [phone] Deirdre Jacob LPN [facility]03-26-2024 Miscellaneous Notes* Telephone Encounter - Nanci [...] for antibiotic rx to be sent to [facility] pharmacy. She has not transportation to come to appt, she has appt scheduled for Friday with OFFICE SERVICE COORDINATOR. Please advise documented in this encounterBerger Hospital03-25-2024 Miscellaneous Notes* Telephone Encounter - Martina Vizcaino MA - 05/19/2023 2:08 PM EDT Faxed PT order to # provided: [phone]. Provided pharmacy OV notes from 05/13 that [...] [phone] Pt reports she still cannot walk and she feels she needs PT for strengthening and balance. Pt has an appt 05/23/23 with provider but wanted order to get started. Muriel Burgess LPN documented in this encounterBerger Hospital03-25-2024 Miscellaneous Notes* Telephone Encounter - Leigh Stone MA - 05/19/2023 10:14 AM EDT Faxed to [facility] as patient requested. Pt notified and verbalized understanding. Leigh Stone MA * Telephone Encounter - Silvestre Jain APRN.CNP - 05/19/2023 7:23 AM EDT Order signed, printed. Please fax and let patient know once sent. Thanks! * Telephone Encounter - Lexii Fowler RN - 05/16/2023 4:02 PM EDT Patient requesting DME order for Bariatric Mattress Overlay. Order pended. Please fax to [facility] in [place] once signed by provider. Please call patient once request has been completed. [phone] Thank you. documented in this encounterBerger Hospital03-21-2024 Miscellaneous Notes* Telephone Encounter - Leticia [...] not feel they worked well for her Teodoroxiga --> stopped February 2023 due to UTIs [...] Forwarding to PCP team for review. Leticia Echavarria, PharmD, [facility] Primary Care Clinical Pharmacist documented in this encounterBerger Hospital03-20-2024 History of Present illness Narrative* Leticia Echavarria RPh - 05/14/2023 11:30 AM EDT Primary Care Pharmacy Visit CC (Reason for Consult): Diabetes (E11.9) Type 2 diabetes (HCC) (primary encounter diagnosis) Goal: A1c < 7% Last Collaborating Provider Visit: 02/28/23 Meggan Arita is a 62 year old female presenting for follow up visit telephone call. Patient consents to pharmacy collaborative practice agreement. Interim Events: Per referral notes: Patient cannot tolerate Trulicity and will be trying Farxiga. Needs help with adjusting and/or changing meds as tolerated and as needed for weight loss and DM control. Nov 2022: Previously worked with PharmD, was discharged back to PCP for DM mngt in November 2022 dueto achieving adequate control of DM. 01/01: Saw [facility], treated with Omnicef for suspected diverticulitis/cystitis; Lasix [...] mo ago so advised to restart 02/28: [facility] evaluated leg swelling; zaroxolyn dosing frequency was [...] didn't feel it worked well for her Vel - didn't feel it worked well for [...] not present. Adherence: denies missed doses. Pharmacy: [id number] [place] [address] - [address] [facility] [phone] [id number] Rx coverage: Payor: [facility] MEDICAID / Plan: [facility] MEDICAID / Product Type: Medicaid / [...] IRON DEFIC ANEMIA NOS 01/20/2007 Colon 03-22-02 ([facility]): no polyps, masses or AVMs Lactose [...] mouth once daily. WALKER ROLLATOR SEAT WITH 6 WHEELS - RED Diagnosis: Unsteady gait, primary osteoarthritis both knees, decreased mobility Zinc Acetate, Oral, 25 mg (zinc) cap Take 1 capsule by mouth once daily. Exam: [facility] 02/11/2011 Last 3 Encounter BP Readings: Date: [...] ALT 10 01/01/2023 No results found for: GFR CrCl cannot be calculated (Unknown ideal weight.). Lab Results Component Value Date CHOL 155 11/05/2022 CHOL 119 03/28/2020 LDL 95 11/05/2022 LDL 70 03/28/2020 HDL 51 11/05/2022 HDL 37 03/28/2020 TG 46 11/05/2022 TG 59 03/28/2020 The 10-year ASCVD risk score (Annabella DK, et al., 2019) is: 19.5% Values used [...] be helpful --> will relay findings to [facility], Silvesrte Jain Advised to continue f/up with PCP team regarding fluid retention Follow-up Patient is not scheduled to see PCP team. Patient to have f/up with PharmD team on 06/03. Patient verbalized understanding of instructions. Leticia Echavarria PharmD, [facility] Primary Care Clinical Pharmacist documented in this encounterBerger Hospital03-18-2024 Miscellaneous Notes* Telephone Encounter - Ruchi Malone LPN - 05/12/2023 4:16 PM EDT Images from the original note were not included. Prior authorization approved Payer: [facility] Your PA request for [id number] was approved for 46 days. The PA# assigned is [id number]. Approval Details Authorization number: [id number] Authorized from May 12, 2023 to June 26, 2023 Electronic appeal: Not supported View History Medication Being Authorized tirzepatide (MOUNJARO) 7.5 mg/0.5 mL pen injector Inject 7.5 mg subcutaneously one time a week. Dispense: 2 mL Refills: 5 Start: 05/12/2023 Class: Normal This order has been released to its destination. To be filled at: [id number] - [place] [address] - [address] [facility] [phone] [id number] * Telephone Encounter - Ruhci Malone LPN - 05/12/2023 4:15 PM EDT Images from the original note were not included. Prior authorization approved Payer: [facility] Approved medication: MOUNJARO Approval Details Authorization number: [id number] Authorized from April 16, 2023 to May 11, 2023 Electronic appeal: Not supported View History Medication Being Authorized tirzepatide (MOUNJARO) 5 mg/0.5 mL pen injector Inject 5 mg subcutaneously one time a week. Dispense: 2 mL Refills: 3 Start: 04/16/2023 Class: Normal This order has been released to its destination. To be filled at: [id number] [place] [address] - [address] [facility] [phone] [id number] Pharmacy notified. * Telephone Encounter - Ruchi Malone LPN - 05/12/2023 3:36 PM EDT Electronic PA completed for mounjaro 7.5 mg documented in this encounterBerger Hospital03-18-2024 Miscellaneous Notes* Telephone Encounter - Leticia Echavarria RPh - 05/12/2023 8:50 AM EDT I would like for the patient to continue with Momaria t (assuming she can locate supply from pharmacy). Goal will be to continue titrating up the medication to max goal dose of 15mg/week which is where she would see the most weight loss and appetite reduction. We have to do the titration process slowly to assure tolerability. Will discuss with patient at upcoming appt on 05/13. Leticia Echavarria PharmD, [facility] Primary Care Clinical Pharmacist * [...] pt. Nanci Dorado LPN documented in this encounterBerger Hospital03-14-2024 History of Present illness Narrative* Tom [...] with diabetes mellitus due to underlying condition ([facility]) Plan: Patient was seen and [...] Care Talia Parks LPN documented in this encounterBerger Hospital03-14-2024 Instructions* Patient Instructions* Tom Bolaños - [...] or sore from your shoes, do not pop it. Apply a bandage and wear a differentpair of shoes. Take Care of Your Toenails Cut toenails after bathing, when they are soft. Cut toenails straight across and smooth with a nail file. Avoid cutting into the corners of toes. Do not cut cuticles. If you have neuropathy (or decreased sensation in your feet) a kaiawhina kohanga reo should always cut your toenails. Be Careful [...] your shoes are too tight. Perform the footwear test described below. Footwear Test Use this simple [...] Go to your health care provider or kaiawhina kohanga reo to treat these conditions. documented in this encounterBerger Hospital03-11-2024 Miscellaneous Notes* Telephone Encounter - Lili Cummings RN - 05/05/2023 4:37 PM EDT Pt called and is notified of providers results and instructions. Pt voices understanding. Lili Cummings RN * Telephone Encounter - Silvestre Jain APRN.CNP - 05/05/2023 3:34 PM EDT We can [...] the dentist she usually goes to in [place] does not take her insurance. Pt reports she was able to get an appt with [facility] for middle of May when they will have a dentist there. Pt is asking if provider can call in atb for bottom tooth infection. Please review and advise. Muriel Burgess LPN documented in this encounterBerger Hospital02-28-2024 Miscellaneous Notes* Telephone Encounter - Gay [...] you. Gay Clements LPN. documented in this encounterBerger Hospital02-21-2024 Miscellaneous Notes* Telephone Encounter - Ruchi Malone LPN - 04/16/2023 3:57 PM EST Images from the original note were not included. The office rec'd and completed an electronic PA form dania. This was approved. Pharmacy notified. Prior authorization approved Payer: [facility] Approved medication: MOUNJARO Approval Details Authorization number: [id number] Authorized from April 16, 2023 to June 26, 2023 Electronic appeal: Not supported View History Medication Being Authorized tirzepatide (MOUNJARO) 5 mg/0.5 mL pen injector Inject 5 mg subcutaneously one time a week. Dispense: 2 mL Refills: 3 Start: 04/16/2023 Class: Normal This order has been released to its destination. To be filled at: [id number] - [place] [address] - [address] [facility] [phone] [id number] documented in this encounterBerger Hospital02-21-2024 History of Present illness Narrative* Leticia Echavarria [facility] - 04/16/2023 11:30 AM EST Primary Care Pharmacy Visit CC (Reason for Consult): Diabetes (E11.9) Type 2 diabetes (HCC) (primary encounter diagnosis) Goal: A1c < 7% Last Collaborating Provider Visit: 02/28/23 Meggan Arita is a 62 year old female presenting for follow up visit telephone call. Patient consents to pharmacy collaborative practice agreement. Interim Events: Per referral notes: Patient cannot tolerate Trulicity and will be trying Farxiga. Needs help with adjusting and/or changing meds as tolerated and as needed for weight loss and DM control. Nov 2022: Previously worked with PharmD, was discharged back to PCP for DM mngt in November 2022 dueto achieving adequate control of DM. 01/01: [facility], treated with Omnicef for suspected diverticulitis/cystitis; Lasix [...] ~1 mo ago so advised to restart 1/5: [facility] evaluated leg swelling; zaroxolyn dosing frequency was [...] not present. Adherence: denies missed doses. Pharmacy: [id number] - [place] [address] - [address] [facility] [phone] [id number] Rx coverage: Payor: [facility] MEDICA[facility] / Plan: [facility] MEDICA[facility] / Product Type: Medicaid / [...] IRON DEFIC ANEMIA NOS 01/20/2007 Colon 03-22-02 ([facility]): no polyps, masses or AVMs Lactose [...] lasix. Patient not taking: Reported on 01/29/2023 [facility] Order: Overnight pulse ox on [...] mouth once daily. WALKER ROLLATOR SEAT WITH 6 WHEELS - RED Diagnosis: Unsteady gait, primary osteoarthritis both knees, decreased mobility Zinc Acetate, Oral, 25 mg (zinc) cap Take 1 capsule by mouth once daily. Exam: [facility] 02/11/2011 Last 3 Encounter BP Readings: Date: [...] ALT 10 01/01/2023 No results found for: GFR CrCl cannot be calculated (Unknown ideal weight.). [...] be fluid retention per review of recent [facility] visit; patient may have false expectation of [...] of 2.5mg pens --> will send to [facility] for signature Informed pt that most weight loss potential is with higher doses but we need to gradually make slight dose adjustments as tolerated Advised to contact office if any issues/concerns Follow-up Patient is not scheduled to see PCP team. Patient to have f/up with PharmD team on 05/13. Patient verbalized understanding of instructions. Leticia Echavarria PharmD, [facility] Primary Care Clinical Pharmacist The majority of the pharmacy visit (> 50%) was spent counseling and/or coordinating care for thepatient. interaction: telephonic time was 27 minutes. documented in this encounterBerger Hospital02-19-2024 History of Present illness Narrative* Silvestre Jain APRN.[facility] - 04/14/2023 11:43 AM EST VIRTUAL VISIT [...] visit. Either the patient or their legal retention representative has been informed of the risks [...] virtual visit via my chart on the zoom platform. Currently has and is using an [...] Take by mouth. WALKER ROLLATOR SEAT WITH 6 WHEELS - RED Diagnosis: Unsteady gait, primary [...] if needsO2 increased at night) Blood-Glucose Meter ([employer]) monitoring kit 1 Each as [...] Lower Extremity, Limited to Breakdown of Skin ([facility]) - 02/20/2022 Comment: Large wound medial thigh; [...] Diabetes (Hcc) - 09/01/2014 Bmi 60.0-69.9, Adult ([facility]) - 06/30/2014 Pulmonary Hypertension ([facility]) - 04/23/2013 Allergic Rhinitis - 07/15/2007 Spinal [...] Anemia, Unspecified - 01/20/2007 Comment: Colon 03-22-02 ([facility]): no polyps, masses or AVMs Anxiety State - 12/09/2006 Generalized Osteoarthrosis, Unspecified Site - 10/29/2006 Esophageal Reflux - 03/16/2005 Comment: EGD in 06-30: no evidence of esophagitis but there is gastritis (H pylori was negative) Chronic Hepatitis, Unspecified ([facility]) - 03/06/2005 Comment: Liver biopsy w/ cholecystectomy Hypertension Comment: Echo at [facility] 01-25: LVH, mild TR, LAE, RVE, PASP 38 (mild), no EF documented per Seese Seese 01-07-03: consider GERD for atyp CP, not cath candidate from obesity, doubt cardiac source ECG 03-30: NSR with PVC, lat T flattening, no ischemia/injury (ECG NL in 10-27 at [facility]) Rec for Dobut Echo in 05-28 per Seese ([facility]) prior to rec gastric bypass (Study 07-21-03 [...] 04-04 with the Holter findings Carotids at [facility] in 04-04: 1-15% stenosis bilaterally Obstructive Sleep [...] minutes Silvestre Jain APRN.CNP documented in this encounterBerger Hospital02-16-2024 Miscellaneous Notes* Telephone Encounter - Marquez [...] still coughing, wheezing at times. [facility]. Please advise documented in this encounterBerger Hospital02-06-2024 Miscellaneous Notes* Telephone Encounter - Gay [...] Please advise. Princess Sylvester documented in this encounterBerger Hospital12-06-2023 Miscellaneous Notes* Telephone Encounter - Sridevi [...] notify patient. Alona Le documented in this encounterBerger Hospital12-06-2023 History of Present illness Narrative* Leticia Echavarria RP - 01/29/2023 11:00 AM EST Primary Care [...] a pharmacist. Interim Events: Per referral notes: Patient cannot tolerate Trulicity and will be trying Farxiga. Needs help with adjusting and/or changing meds as tolerated and as needed for weight loss and DM control. Previously worked with PharmD, was discharged back to PCP for DM mngt in November 2022 due to achieving adequate control of DM. 01/01: [facility], treated with Omnicef for suspected diverticulitis/cystitis; Lasix [...] months. States she did talk to a [facility] about it. States she had furosemide increased [...] 4.5mg weekly on Fridays Past DM medications: Ozempic - didn't feel [...] oz/day), OJ (rarely drinks, maybe 1/4 cup), I hate water though forces self to drink it; occasionally drinks milk, hot tea Exercise: uses walker; difficulty going up and down stairs; does have a foot pedal and she will sitin wheelchair and pedal; hasn't started using it yet MEDICATIONS: Pill bottles are not present. Adherence: denies missed doses. [facility]acy: [id number] [place] [address] - [address] [facility] [phone] [id number] Rx coverage: Payor: [facility] / Plan: [facility] MED[facility] / Product Type: Medicaid / [...] reflux GENERAL OSTEOARTHROSIS 10/29/2006 Headache(784.0) 01/20/2007 Domenico MALLORYF Rheum 12-26: consid Sjogren's, CT chest/MRI head/HYUN/KEO/OSMANY/ANCA/SSA/SSB neg Again reinforced the need to start CPAP on 03-04-07: unable to afford as of 04-03 for insurance issues INSOMNIA NOS 07/31/2007 IRON DEFIC ANEMIA NOS 01/20/2007 Colon 03-22-02 ([facility]): no polyps, masses or AVMs Lactose [...] Taking 2 tabs (40mg) daily since last [facility] appt insulin needles, DISPOSABLE, (BD INSULIN PEN NEEDLE UF) 31 gauge x 5/16 USE 6 DAILY DIRECTED with Toujeo and [...] daily. Taking qAM WALKER ROLLATOR SEAT WITH 6 WHEELS - RED Diagnosis: Unsteady gait, primary osteoarthritis both knees, decreased mobility supplies Zinc Acetate, Oral, 25 mg (zinc) cap Take 1 capsule by mouth once daily. Taking daily, called Sadie on bottle Exam: LMP 02/11/2011 Last 3 [...] ALT 10 01/01/2023 No results found for: GFR CrCl cannot be calculated (Unknown ideal weight.). [...] 03/05. Patient verbalized understanding of instructions. Leticia Echavarria, RealD, BCPS Primary Care Clinical Pharmacist The majority of the pharmacy visit (> 50%) was spent counseling and/or coordinating care for thepatient. interaction: telephonic time was 55 minutes. documented in this encounterBerger Hospital12-05-2023 Miscellaneous Notes* Telephone Encounter - Rina [...] up as needed Sent above in a Expan message. Make sure patient sees it and [...] Asking if pcp would send this to [facility]? Reason for Disposition MILD-MODERATE diarrhea (e.g., [...] in stool. 12. : No Protocols used: [id number] documented in this encounterBerger Hospital11-21-2023 Miscellaneous Notes* Telephone Encounter - Shant Boyle RN - 01/14/2023 8:53 AM EST Phoned patient and given provider's message below with verbalized understanding. Patient states shewill try the farxiga- and will call pcp [...] given provider's message below. Patient states she read up on Farxiga and it does not mention if this medication curbs your appetite. Pt wants to know if this medication [...] and Ozempic? Please review and advise, Treva Cr, RN * Telephone Encounter - Erica Cannon [...] an option? Please advise. documented in this encounterBerger Hospital11-08-2023 Instructions* Patient Instructions* Silvestre Jain APRN.NIKKY - 01/01/2023 10:46 AM EST Ok to increase the Trulicity, new script sent. Start taking the Lasix 20 mg as 2 pills ok to take together. This will help swelling and blood pressure. Miralax to keep bowels regular. Can use Bentyl for abdominal pain. Start antibiotics for any infection going on. Pelvic ultrasound and follow up with desk representative. Blood work today. IF YOU CHANGE YOUR MIND AND WANT A CAT SCAN LET ME KNOW. documented in this encounterBerger Hospital11-08-2023 History of Present illness Narrative* Silvestre [...] been on going. Would like to see desk representative. Her medications were reviewed today and her [...] to 7 days. WALKER ROLLATOR SEAT WITH 6 WHEELS - RED Diagnosis: Unsteady gait, primary osteoarthritis both knees, decreased mobility insulin needles, DISPOSABLE, (BD INSULIN PEN NEEDLE UF) 31 gauge x /16 USE 6 DAILY DIRECTED with Toujeo and [...] Diabetes (Hcc) - 09/01/2014 Bmi 60.0-69.9, Adult ([facility]) - 06/30/2014 Pulmonary Hypertension ([facility]) - 04/23/2013 Allergic Rhinitis - 07/15/2007 Spinal [...] Anemia, Unspecified - 01/20/2007 Comment: Colon 03-22-02 ([facility]): no polyps, masses or AVMs Anxiety State - 12/09/2006 Generalized Osteoarthrosis, Unspecified Site - 10/29/2006 Esophageal Reflux - 03/16/2005 Comment: EGD in 06-30: no evidence of esophagitis but there is gastritis (H pylori was negative) Chronic Hepatitis, Unspecified ([facility]) - 03/06/2005 Comment: Liver biopsy w/ cholecystectomy Hypertension Comment: Echo at [facility] 01-25: LVH, mild TR, LAE, RVE, PASP 38 (mild), no EF documented per Seese Seese 01-07-03: consider GERD for atyp CP, not cath candidate from obesity, doubt cardiac source ECG 03-30: NSR with PVC, lat T flattening, no ischemia/injury (ECG NL in 10-27 at [facility]) Rec for [facility] 05[facility] prior to rec gastric bypass (Study 07-21-03 [...] 04-04 with the Holter findings Carotids at [facility] in 04-04: 1-15% stenosis bilaterally Obstructive Sleep [...] MG CAPSULE 2. Pelvic pain - ICD9: [id number], ICD10: R10.[address], wants to start with ultrasound and follow up with desk representative. Thinks this issue is separate than abdominal [...] appointment.. Silvestre Jain APRN-NIKKY documented in this encounterBerger Hospital11-06-2023 Miscellaneous Notes* Telephone Encounter - Maria [...] 8. CAUSE:Patient not certain 9. RELIEVING/AGGRAVATING FACTORS: What makes it better or worse? (e.g., antacids, bending or twisting motion, bowel [...] 8. CAUSE:Patient not certain 9. RELIEVING/AGGRAVATING FACTORS: What makes it better or worse? (e.g., antacids, bending or twisting motion, bowel movement) Bowels are moving ok. She hasn't noticed anything that helps or hinders. 10. OTHER SYMPTOMS: No diarrhea, vomiting, urinary symptoms, or fever. Patient reports it as more of a cramping and feels like she is more bloated with firmness to the lower abdomen. Protocols used: Abdominal Pain - Cgmikg-[id number], Abdomen Bloating and [id number] documented in this encounterBerger Hospital10-11-2023 Miscellaneous Notes* Telephone Encounter - Talia [...] the office beginning tomorrow afternoon until next Friday Tom Bolaños DPM * Telephone Encounter - [...] steps. Talia Parks LPN documented in this encounterBerger Hospital10-11-2023 Miscellaneous Notes* Telephone Encounter - Aurora Aparicoi RPh - 12/04/2022 3:59 PM EDT Care [...] [facility] Next PCP team appointment: 12/17/22 Thank you for utilizing primary care pharmacy services. Aurora Aparicio, PharmD, BCACP Primary Care Clinical Pharmacist documented in this encounterBerger Hospital10-05-2023 History of Present illness Narrative* Elke [...] Take by mouth. WALKER ROLLATOR SEAT WITH 6 WHEELS - RED Diagnosis: Unsteady gait, primary [...] INSULIN PEN NEEDLE UF) 31 gauge x 5/16 USE 6 DAILY DIRECTED with Toujeo and [...] and more frequent meals Discussed meeting with game trapper (referral is in) - Follow up with PCP team on 12/17/2022, sooner should any other issues arise. - Will discharge from pharmacy follow up at this time Instructed patient to reach out to PCP for sooner follow up regarding concerns with edema and headache. Elke Son, Broommaking Supervisor The majority of the pharmacy visit (> 50%) was spent counseling and/or coordinating care for thepatient. interaction: telephonic time was 20 minutes. * Aurora Aparicio RPh - 11/28/2022 10:00 AM EDT I reviewed this patient's case and agree with the assessment and plan above. Signature: Aurora Aparicio RPh documented in this encounterBerger Hospital09-26-2023 Miscellaneous Notes* Telephone Encounter - Treva Cr RN - 11/19/2022 9:01 AM EDT Patient calls and states that she needs a new meter and testing strips. Please send to [facility]. Treva Cr RN documented in this encounterBerger Hospital09-25-2023 Miscellaneous Notes* Telephone Encounter - Sridevi [...] also requesting Reli-on test strips to [facility] * Telephone Encounter - Silvestre Jain [...] advise, Treva Cr RN documented in this encounterBerger Hospital09-22-2023 Miscellaneous Notes* Telephone Encounter - Sridevi [...] her stools are normal. documented in this encounterBerger Hospital09-19-2023 History of Present illness Narrative* John [...] components. John Caldwell MD documented in this encounterBerger Hospital09-12-2023 History of Present illness Narrative* Silvestre Jain APRN.[facility] - 11/05/2022 11:46 AM EDT SUBJECTIVE Meggan Arita is a 61 year old female here today for a check up on her medical problems. Chief Complaint Patient presents with: Recheck HPI Meggan Arita is a 61 year old female. [...] 5 per day. WALKER ROLLATOR SEAT WITH 6 WHEELS - RED Diagnosis: Unsteady gait, primary osteoarthritis both knees, decreased mobility flash glucose sensor ([employer]STYLE SHAKIRA 2 SENSOR) kit Apply new sensor every fourteen (14) days to upper arm. insulin needles, DISPOSABLE, (BD INSULIN PEN NEEDLE UF) 31 gauge x 5/16 USE 6 DAILY DIRECTED with Toujeo and [...] Lower Extremity, Limited to Breakdown of Skin ([facility]) - 02/20/2022 Comment: Large wound medial thigh; [...] 2016 Depression - 01/24/2016 Type 2 Diabetes ([facility]) - 09/01/2014 Bmi 60.0-69.9, Adult ([facility]) - 06/30/2014 Pulmonary Hypertension ([facility]) - 04/23/2013 Allergic Rhinitis - 07/15/2007 Spinal [...] Anemia, Unspecified - 01/20/2007 Comment: Colon 03-22-02 ([facility]): no polyps, masses or AVMs Anxiety State - 12/09/2006 Generalized Osteoarthrosis, Unspecified Site - 10/29/2006 Esophageal Reflux - 03/16/2005 Comment: EGD in 06-30: no evidence of esophagitis but there is gastritis (H pylori was negative) Chronic Hepatitis, Unspecified ([facility]) - 03/06/2005 Comment: Liver biopsy w/ cholecystectomy Hypertension Comment: Echo at [facility] 01-25: LVH, mild TR, LAE, RVE, PASP 38 (mild), no EF documented per Seese Seese 01-07-03: consider GERD for atyp CP, not cath candidate from obesity, doubt cardiac source ECG 03-30: NSR with PVC, lat T flattening, no ischemia/injury (ECG NL in 10-27 at [facility]) Rec for Dobut Echo in 05-28 per [...] 04-04 with the Holter findings Carotids at [place] in 04-04: 1-15% stenosis bilaterally Obstructive Sleep [...] medication.. Silvestre Jain APRN-NIKKY documented in this encounterBerger Hospital09-08-2023 Miscellaneous Notes* Telephone Encounter - Anh [...] you. Anh Hazel LPN documented in this encounterBerger Hospital09-01-2023 History of Present illness Narrative* Aurora Aparicio, [facility] - 10/25/2022 10:30 AM EDT Primary Care [...] Take by mouth. WALKER ROLLATOR SEAT WITH 6 WHEELS - RED Diagnosis: Unsteady gait, primary [...] INSULIN PEN NEEDLE UF) 31 gauge x 5/16 USE 6 DAILY DIRECTED with Toujeo and [...] time was 20 minutes. documented in this encounterBerger Hospital08-30-2023 History of Present illness Narrative* Tom [...] warm water and Listerine documented in this encounterBerger Hospital08-11-2023 Miscellaneous Notes* Telephone Encounter - Marquez Araya Ma - 10/04/2022 3:56 PM EDT Patient notified, verbalized understanding. * Telephone Encounter - Lydia North APRN.CNS - 10/04/2022 3:32 PM EDT Needs dental appointment as soon as possible. Peridex and cephalexin sent to pharmacy. PCN allergy. * Telephone Encounter - Lexii Fowler RN - 10/04/2022 3:08 PM EDT Triage Protocol Recommended: See provider within 4 hours for evaluation. Pt requesting PCP to advise, no appts available. Thank you. [facility]ses [facility]. Please call patient with advise. Reason for [...] ago. States her dentist no longer accepts [employer] insurance and that they will notify her [...] above 6. : post menopausal Protocols used: [id number] documented in this encounterBerger Hospital08-02-2023 Miscellaneous Notes* Telephone Encounter - Sridevi [...] go up. Pt uses [facility] / [place]. Deirdre Jacob LPN * Telephone Encounter - Lexii Fowler RN - 09/24/2022 4:48 PM EDT Patient calling to ask provider if there are any suggestions/medication to curb her appetite? Advised pt that this can be discussed at upcoming appt with Dr. Cannon on 10/08, however pt askingfor recommendations sooner than appt, if able. Please advise. Thank you. documented in this encounterBerger Hospital07-31-2023 Miscellaneous Notes* Telephone Encounter - Lexii Fowler RN - 09/23/2022 11:04 AM EDT Patient reports she is switching pharmacies from mail order to local pharmacy. Pt requesting scripts for losartan and pantoprazole be sent to [facility] in [place]. Reports she isout of these medications. Pended [...] 2.070 Lexii Fowler RN documented in this encounterBerger Hospital07-31-2023 Miscellaneous Notes* Telephone Encounter - Lili [...] 09/05/2020 25 Please advise. Thank you. Lili Cummings RN documented in this encounterBerger Hospital07-28-2023 Miscellaneous Notes* Telephone Encounter - Sridevi Isabel LPN - 09/20/2022 1:08 PM EDT Spoke with patient and she asked to disregard this message and will call when needs a refill. * Telephone Encounter - Muriel Burgess LPN - 09/17/2022 1:30 PM EDT Pt is calling to see if office received a fax from [employer] [facility] for refills. Pt reports [facility] called her to tell her they have not received any of the rx orders they faxed to office. Asked pt what meds the refills were for an pt did not know. Muriel Burgess LPN documented in this encounterBerger Hospital07-27-2023 Miscellaneous Notes* Telephone Encounter - Lexii [...] 2.070 Lexii Fowler RN documented in this encounterBerger Hospital07-13-2023 Miscellaneous Notes* Telephone Encounter - John [...] any other symptoms develop. documented in this encounterBerger Hospital07-11-2023 Instructions* Patient Instructions* Sosa Vickers - [...] activities including water activities documented in this encounterBerger Hospital07-11-2023 History of Present illness Narrative* John [...] Past Histories independently gathered by the clinical patient support specialist and the remaining scribed note [...] components. John Caldwell MD documented in this encounterBerger Hospital07-10-2023 Miscellaneous Notes* Telephone Encounter - Nanci Dorado LPN - 09/02/2022 10:28 AM EDT Spoke with pt and information listed below given. Pt verbalizes understanding. Nanci Dorado LP * Telephone Encounter - Erica Cannon MD [...] advise, Treva Cr RN documented in this encounterBerger Hospital07-10-2023 Miscellaneous Notes* Telephone Encounter - Nanci [...] 10.2; was 11.6 when was discharged from [facility] Will follow up with next labs. Would verify if taking iron Friday, Friday, Friday. HgA1C on low side at 4.7. Might have been affected by anemia issues though. Check in 3 months. Plan on labs in about 4 weeks. Nanci MACHADO documented in this encounterBerger Hospital07-03-2023 Miscellaneous Notes* Telephone Encounter - Erica [...] for her. Pt uses [facility] in [place]. Please advise. Deirdre Jacob LPN documented in this encounterBerger Hospital07-01-2023 Miscellaneous Notes* Telephone Encounter - Sridevi Isabel LPN - 08/24/2022 9:13 AM EDT Home care Certification Form 485 [facility]. For cert dates 05/02/22-06/30/22 that were signed on 07/19/2022 New Certification Patient's home health 485 form / care plan for stated certification period reviewed and signed. Relevant medical records were reviewed. No changes were indicated documented in this encounterBerger Hospital06-30-2023 Miscellaneous Notes* Telephone Encounter - Lexii Fowler RN - 08/23/2022 1:56 PM EDT Opened in error. documented in this encounterBerger Hospital06-30-2023 Miscellaneous Notes* Telephone Encounter - Marquez Araya Ma - 08/23/2022 8:17 AM EDT Seen in office 08/21 * Telephone Encounter - Lydia North APRN.CNS - 08/20/2022 7:01 AM EDT Was admitted 08/14 [facility]. Care everywhere admission diagnoses: diarrhea, LORNE, asymptomatic bacteruria,gastroenteritis, hypokalemia. CT completed at [facility]. Check for records, schedule follow up if needed. * Telephone Encounter - Lydia North APRN.CNS - 08/15/2022 9:01 AM EDT Please obtain abdominal and pelvis CT abdomen results completed today when available. * Telephone Encounter - Inna Mcmanus - 08/14/2022 1:41 PM EDT Called bindery library technical assistant at [facility] and faxed orders with the no IVCON over to [facility]. PT is agreeable to the 130pm appointment on 08/15 at the [facility]. * Telephone Encounter - Katya Oliva APRN.CNP - 08/14/2022 1:[address] ordered without IV contrast, please fax to [facility] Katya Oliva APRN.CNP * Telephone Encounter - Sridevi Isabel LPN - 08/14/2022 1:10 PM EDT There is an iodine allergry on medication list. Patient scheduled for STAT CT 08/15/22 at [facility]. Please advise. * Telephone Encounter - Inna Mcmanus - 08/14/2022 12:32 PM EDT Called pt to schedule the CT and Gastro. She does not want to travel outside of [place]. She requested that we send paper work to [facility]. Faxed the orders to [facility]. Pt was not ready to schedule Gastro [...] referral to GI [facility]. Patient lives in [place] and traveling far is an issue, please see if sheis willing or able to travel to [place]. Katya Oliva APRN.CNP * Telephone Encounter - Shant Boyle RN - 08/14/2022 10:49 AM EDT Patient reports the lomotil is not helping, the diarrhea is the same. Has had 8- 9 liquid stools in the last 24 hours. Reports she has had diarrhea for 5 days now. This morning she took sips of a jonhs slush and vomited a lot of green liquid. After vomiting the stomach cramping improved. Has abdominal cramping just prior to BM. Has lost 9 # in the last 5 days. BS last hs- 156, BS this morning 140. No appetite, only drinking liquids. No fever. Patient asked if lab results are back. Advised patient Brim Pouncer sent her a [employer] message regarding those results and it is marked that she read it. Patient states that must have been her son who read it. Given [facility] message to patient. Patient asking Brim Pouncer to advise. Should she continue taking the lomotil? documented in this encounterBerger Hospital06-28-2023 History of Present illness Narrative* Erica Cannon MD - 08/21/2022 4:36 PM EDT This note was created using Stroberiter. Subjective Meggan Arita is a 61 year old female. Patient presents with: Hospital F/U: [facility] follow up SUBJECTIVE: Meggan Arita is a [...] reflux GENERAL OSTEOARTHROSIS 10/29/2006 Headache(784.0) 01/20/2007 Domenico F Rheum 12-26: consid Sjogren's, CT chest/MRI head/HYUN/KEO/OSMANY/ANCA/SSA/SSB neg Again reinforced the need to start CPAP on 03-04-07: unable to afford as of 04-03 for insurance issues INSOMNIA NOS 07/31/2007 IRON DEFIC ANEMIA NOS 01/20/2007 Colon 03-22-02 ([facility]): no polyps, masses or AVMs Lactose [...] August 15, 2022. WALKER ROLLATOR SEAT WITH 6 WHEELS - RED Diagnosis: Unsteady gait, primary osteoarthritis both knees, decreased mobility cyclobenzaprine (FLEXERIL) 5 mg tablet Take 1 tablet by mouth three times daily as needed. nystatin (MYCOSTATIN) powder Apply 1 application to affected area four times daily. venlafaxine ER (EFFEXOR XR) 75 mg 24 hr capsule Take 1 capsule by mouth once daily. flash glucose sensor ([employer] PharmaceuticalsSTYLE SHAKIRA 2 SENSOR) kit Apply new sensor [...] INSULIN PEN NEEDLE UF) 31 gauge x 5/16 USE 6 DAILY DIRECTED with Toutavia and Humalog and Byetta Diaper,Brief, Adult,Disposable (DISPOSABLE BRIEF) Bariatric Briefs - Prevail. Going thru [facility]. 2 per day. blood sugar diagnostic (BLOOD [...] tablet by mouth once daily. Blood-Glucose Meter (Transcend MedicalYLE FREEDOM LITE) monitoring kit 1 Each as [...] extremity, limited to breakdown of skin (HCC) L97.921 Diaper,Brief, Adult,Disposable (DISPOSABLE BRIEF) 7. Allergic rhinitis, unspecified seasonality, unspecified trigger J30.9 ipratropium bromide (ATROVENT) 42 mcg (0.06 %) nasal spray 8. Morbid obesity ([facility]) E66.01 Diaper,Brief, Adult,Disposable (DISPOSABLE BRIEF) [...] indicated. Erica Cannon MD documented in this encounterBerger Hospital06-26-[address] Knox [facility] August 19, 2022 12:29pm Note Date/Time August 19, 2022 12:2 9pm [facility] Medical Records Department [address] [place] [address] Progress Note - Surgery 08/19/22 1225 MR#: [id number] Acct: [id number] Name: MEGGAN ARITA Rep #:[id number] : 1960 61 From: Raysa Knox MD PCP: Dr. Erica Cannon MD Status:AD M IN Location: [facility] TZ170-9 Subjective Subjective Patient still tolerating diet, denies [...] Patient states abdominal pain is improved. At PA would send patient patient home with Carafate x1 month 4 times daily. And continue on her Protonix. Leukocytosis?unsure etiology. Patient's abdominal exam at this time does not warrant a CT. Patient is agreeable with plan. Will sign off-- call with questions. Raysa Knox M.D. Pager: [phone] [facility] [address] [place] [address], [address], [address] [place] [address] Office: [phone] Charges/Coding Visit Charges Inpatient E&M: 08618 Subs Hosp L2 08/19/22 1229 <Electronically signed by Raysa Knox MD> Cosigner Signature (if applicable): CC: ~ Signed [facility] Work Phone: 1(558) 116-631006-25-[address] Pizarro [facility] August 18, 2022 5:40pm Note Date/Time August 18, 2022 5:26 pm [facility] Medical Records Department [address] [place] [address] Progress Note - Hospitalist 08/18/22 1723 MR#: [id number] Acct: [id number] Name: MEGGAN ARITA Rep #:[id number] : 1960 61 From: Jim Pizarro DO PCP: Dr. Erica Cannon MD Status:AD M IN Location: [facility] WW449-7 Reason for Visit Reason for Visit: Diagnoses [...] % (Auto) 27.4 L, Lymph % (Auto) 35.2,[place] % (Auto) 20.5 H, Eos % (Auto) [...] 35 minutes Charges/Coding Visit Charges Inpatient E&M: 31872 Subs Hosp L2 08/18/22 1740 <Electronically signed by Jim Pizarro DO> Cosigner Signature (if applicable): CC: ~ Signed [facility] Work Phone: 1(426) 888-800106-25-[address] Knox [facility] August 18, 2022 9:00am Note Date/Time August 18, 2022 9:00 am [facility] Medical Records Department [address] [facility] [place] [address] Progress Note - Surgery 08/18/22 0858 MR#: [id number] Acct: [id number] Name: MEGGAN ARITA Rep #:[id number] : 1960 61 From: Raysa Knox MD PCP: Dr. Erica Cannon MD Status:AD M IN Location: [place] [address] Subjective Subjective Patient reports worse diarrhea last [...] Intake and Output for Last 24 Hours 0608/17/22 08/18/22 23:59 23:59 23:59 Intake Total 2622.51 [...] % (Auto) 27.4 L, Lymph % (Auto) 35.2,[place] % (Auto) 20.5 H, Eos % (Auto) [...] to follow patient. Raysa Knox M.D. Pager: [phone] [facility] [address] [place] [address], [address], [address] [place] [id number] Office: [phone] Charges/Coding Visit Charges Inpatient E&M: 96496 Subs Hosp L2 08/18/22 0900 <Electronically signed by Raysa nKox MD> Cosigner Signature (if applicable): CC: ~ Signed [facility] Work Phone: 1(405) 755-341006-24-2023 Progress note Author Rae Kline [facility] August 17, 2022 4:20pm Note Date/Time August 17, 2022 4:20 pm [facility] Medical Records Department [address] [place] [address] Progress Note - Nephrology 08/17/22 1618 MR#: [id number] Acct: [id number] Name: MEGGAN ARITA Rep #:[id number] : 1960 61 From: Rae eddy MD PCP: Dr. Erica Cannon MD Status:AD M IN Location: [facility] GO387-3 Subjective Subjective Follow-up on acute kidney injury, [...] % (Auto) 26.5 L, Lymph % (Auto) 35.9,[place] % (Auto) 22.2 H, Eos % (Auto) [...] Cosigner Signature (if applicable): CC: ~ Signed [facility] Work Phone: 1(957) 461-965706-24-2023 Progress note Author Rae Kline [facility] August 17, 2022 4:00pm Note Date/Time August 16, 2022 2:24 pm [facility] Medical Records Department [address] [place] [address] Progress Note - Nephrology 08/16/22 1414 MR#: [id number] Acct: [id number] Name: MEGGAN ARITA Rep #:[id number] : 1960 61 From: Cally kam OFFICE SERVICE COORDINATOR-C PCP: Dr. Erica Cannon MD Status:AD M IN Location: [facility] GE474-0 Subjective Subjective Resting quietly. Reports feeling better [...] % (Auto) 47.1, Lymph % (Auto) 25.1, [place] % (Auto) 18.2 H, Eos % (Auto) [...] (K+ 8.8). Patient has never required any EHS ENGINEER. - LORNE likely secondary to significant intravascular volume depletion with concurrent ARB, diuretic and NSAID use. Also to note patient hypotensive on admission which could also be contributing to LORNE leading to ATN. Serum creatinine 3.06 mg/dL on admission--> 3.71 mg/dL--> today serum creatinine 3.22 mg/dL. At this time there is no acute indication for EHS ENGINEER, no significant hyperkalemia or acidosis necessitating EHS ENGINEER. Patient was hypovolemic and hypotensive on admission, [...] will also arrange for hospital follow-up at [place] office. - Metabolic acidosis likely secondary to [...] by Rae Kline MD> CC: ~ Signed [facility] Work Phone: 1(833) 481-818406-24-[address] Knox [facility] August 17, 2022 12:39pm Note Date/Time August 17, 2022 12:3 9pm [facility] Medical Records Department [address] [place] [address] Consultation - Surgical 08/17/22 1232 MR#: [id number] Acct: [id number] Name: MEGGAN ARITA Rep #:[id number] : 1960 61 From: Raysa Knox MD PCP: Dr. Erica Cannon MD Status:AD M IN Location: [facility] XV266-5 Assessment & Plan Assessment/Plan (1) LUQ pain: [...] UTI per primary. Raysa Knox M.D. Pager: [phone] [facility] [address] [place] [address], [facility] [place], [address] [place] [id number] Office: [phone] HPI Consult Data Date of Consult: 08/17/22 [...] tolerate a diet and still having diarrhea. [facility] Medical History Anemia Anxiety Asthma Chronic respiratory [...] mg PO Q4H PRN PRN Fever, pain 1-12/03 #0 tabs 11/20/21 [Rx Last Taken Unknown] [...] Diff Path Review Reviewed 08/16/22 05:40: Lipase 23 08/16/22 16:20: POC Glucose 81 08/16/22 21:17: POC Glucose 80 08/17/22 06:40: WBC 9.9, RBC 4.02 L, Hgb 12.0, Hct 39.1, MCV 97.3, MCH 29.9, MCHC 30.7 L, RDW Std Deviation 43.6, RDW Coeff of Amirah 12.0, Plt Count 331, MPV 10.7, Immature Gran % (Auto) 3.300 H, Neut % (Auto) 26.5 L, Lymph % (Auto) 35.9,[place] % (Auto) 22.2 H, Eos % (Auto) [...] Escherichia coli#2 Charges/Coding Visit Charges Inpatient E&M: 03326 Subs Hosp L3 08/17/22 1239 <Electronically signed by Raysa Knox MD> Cosigner Signature (if applicable): CC: Dr. Ammy Agarwal MD; Dr. Sam Perez MD; Dr. Erica Cannon MD; Dr. Lisa Mendoza MD; Dr. Raysa Knox MD~ Signed [facility] Work Phone: 1(842) 273-646106-24-[address] Hamm [facility] August 17, 2022 10:03am Note Date/Time August 17, 2022 6:27 am [facility] Medical Records Department [address] [place] [address] Progress Note - Hospitalist 08/17/22626 MR#: [id number] Acct: [id number] Name: MEGGAN ARITA Rep #:[id number] : 1960 61 From: Winter Hamm MD PCP: Dr. Erica Cannon MD Status:AD M IN Location: [place] [address] Reason for Visit Reason for Visit: Diagnoses [...] CPAP, HTN, HLD who presents to the [facility] ED on 08/14/22 with history of increasing [...] 35 minutes. Charges/Coding Visit Charges Inpatient E&M: 17677 Subs Hosp L2 08/17/22 1003 <Electronically signed by Winter Hamm MD> Cosigner Signature (if applicable): CC: ~ Signed [facility] Work Phone: 1(565) 864-303306-23-[address] Hamm [facility] August 16, 2022 2:07pm Note Date/Time August 16, 2022 7:24 am [facility] Medical Records Department [address] [place] [address] Progress Note - Hospitalist 08/16/22722 MR#: [id number] Acct: [id number] Name: MEGGAN ARITA Rep #:[id number] : 1960 61 From: Winter Hamm MD PCP: Dr. Erica Cannon MD Status:AD M IN Location: [place] [address] Reason for Visit Reason for Visit: Diagnoses [...] % (Auto) 47.1, Lymph % (Auto) 25.1, [place] % (Auto) 18.2 H, Eos % (Auto) [...] Catheterized Urine Culture - Preliminary GNR lactose family service assistant Gram negative haven 08/14/22 19:38 Stool Stool Lactoferrin - Final 08/14/22 19:38 Stool Enteric Bacteriology - Final 08/14/22 19:38 Stool C. difficile DNA Amplification - Final Radiography Diagnostic Testing: Radiology Impression Renal Ultrasound 08/15/22 07:54 IMPRESSION: Normal ultrasound of the kidneys and urinary bladder. Electronically Signed: Vladimir Parsons MD at 21:42 EDT Reading Location ID and State: [facility] / [place] , Service support , Physical Exam Narrative [...] CPAP, HTN, HLD who presents to the [facility] ED on 08/14/22 with history of increasing [...] 50 minutes. Charges/Coding Visit Charges Inpatient E&M: 85361 Subs Hosp L3 08/16/22 1407 <Electronically signed by Winter Hamm MD> Cosigner Signature (if applicable): CC: ~ Signed [facility] Work Phone: 1(813) 980-143606-23-2023 Consult note Author Rae Kline [facility] August 16, 2022 11:43am Note Date/Time August 15, 2022 3:17 pm [facility] Medical Records Department [address] [place] [address] Consultation - Nephrology 08/15/22 1457 MR#: [id number] Acct: [id number] Name: MEGGAN ARITA Rep #:[id number] : 1960 61 From: Cally kam OFFICE SERVICE COORDINATOR-C PCP: Dr. Erica Cannon MD Status:AD M IN [facility] Assessment & Plan Assessment/Plan (1) Acute renal [...] (K+ 8.8). Patient has never required any EHS ENGINEER. Tonote patient has lost at least 150 [...] time there is no acute indication for EHS ENGINEER, no significant hyperkalemia or acidosis. Patient is [...] function continue to worsen patient may need EHS ENGINEER. Questions were answered. Labs ordered for a.m. [...] 3.4. Patient was admitted for gastroenteritis and LONRE. Nephrology consulted for acute kidney injury. Patientis [...] and IV fluids. Patient never required any EHS ENGINEER. Today patient reports that she has had [...] any recent hematuria. No rash. No arthralgias. [facility] Medical History Anemia Anxiety Asthma Chronic respiratory [...] % (Auto) 43.0 L, Lymph % (Auto) 31.3,[place] % (Auto) 17.5 H, Eos % (Auto) [...] Clarity Cloudy, Urine pH 5.0, Ur Specific [place] 1.030, Urine Protein 100 H, Urine Glucose [...] % (Auto) 40.2 L, Lymph % (Auto) 30.5,[place] % (Auto) 19.2 H, Eos % (Auto) [...] Catheterized Urine Culture - Preliminary GNR lactose family service assistant Gram negative haven 08/14/22 19:38 Stool Stool Lactoferrin - Final 08/14/22 19:38 Stool Enteric Bacteriology - Final 08/14/22 19:38 Stool C. difficile DNA Amplification - Final Radiology Impression Abdomen/Pelvis CT 08/14/22 19:07 IMPRESSION: Ileus. Probable left adrenal adenoma. Sensitivity limited without IV and oral contrast. Electronically Signed: Vladimir Parsons MD at 20:24 EDT Reading Location ID and State: [address] [place] [address] , Service support , 08/15/22 1517 <Electronically signed by Cally CROSS> Cosigner Signature (if applicable): 08/16/22 1143 <Electronically signed by Rae Kline MD> CC: Dr. Ammy Agarwal MD; Dr. Sam Perez MD; Dr. Erica Cannon MD; Dr. Lisa Mendoza MD~ Signed [facility] Work Phone: 1(100) 581-997606-22-[address] Mendoza [facility] August 15, 2022 2:07pm Note Date/Time August 15, 2022 7:55 am [facility] Medical Records Department [address] [place] [address] Progress Note - Hospitalist 08/15/22 0748 MR#: [id number] Acct: [id number] Name: MEGGAN ARITA Rep #:[id number] : 1960 61 From: Lisa Mendoza MD PCP: Dr. Erica Cannon MD Status:AD M IN [facility] Reason for Visit Reason for Visit: Diagnoses [...] % (Auto) 43.0 L, Lymph % (Auto) 31.3,[place] % (Auto) 17.5 H, Eos % (Auto) [...] Clarity Cloudy, Urine pH 5.0, Ur Specific [place] 1.030, Urine Protein 100 H, Urine Glucose [...] % (Auto) 40.2 L, Lymph % (Auto) 30.5,[place] % (Auto) 19.2 H, Eos % (Auto) [...] documentation, 39minutes Charges/Coding Visit Charges Inpatient E&M: 01286 Subs Hosp L3 08/15/22 1407 <Electronically signed by Lisa Mendoza MD> Cosigner Signature (if applicable): CC: ~ Signed [facility] Work Phone: 1(664) 952-224806-22-2023 History and physical note Author Dr. Perez [facility] August 14, 2022 11:40pm Note Date/Time August 14, 2022 9:05 pm [facility] Medical Records Department [address] [place] [address] H&P Exam - Hospitalist 08/14/222048 MR#: [id number] Acct: [id number] Name: MEGGAN ARITA Rep #:[id number] : 1960 61 From: Sam Perez MD PCP: Dr. Erica Cannon MD Status:AD M IN Location: [facility] XJ687-7 HPI - General General Date of Admission: [...] complains of irritation in between her thighs. [facility] Medical History Anemia Anxiety Asthma Chronic respiratory [...] % (Auto) 43.0 L, Lymph % (Auto) 31.3,[place] % (Auto) 17.5 H, Eos % (Auto) [...] Clarity Cloudy, Urine pH 5.0, Ur Specific [place] 1.030, Urine Protein 100 H, Urine Glucose (UA) 50 H, Urine Ketones 5 H, Urine Occult Blood 10 H, Urine Nitrite Positive H, Urine Bilirubin 3 H, Urine Urobilinogen 1 H, Ur Leukocyte Esterase 25 H, Urine RBC 0-5 SEEN, Urine WBC 0-5 SEEN, Ur Squamous Epith Cells 0-5 SEEN, Urine Bacteria 2+, Urine Mucus 0 SEEN Micro: Microbiology 06/21/23 19:38 Stool Stool Lactoferrin - Final Radiology Impression Abdomen/Pelvis CT 08/14/22 19:07 IMPRESSION: Ileus. Probable left adrenal adenoma. Sensitivity limited without IV and oral contrast. Electronically Signed: Vladimir Parsons MD at 20:24 EDT Reading Location ID and State: [address] [place] [address] , Service support , Assessment & Plan [...] Lovenox ordered. Charges/Coding Visit Charges Inpatient E&M: 49514 Init Hosp L3 08/14/22 2340 <Electronically signed by Sam Perez MD> Cosigner Signature (if applicable): CC: Dr. Sam Perez MD; Dr. Erica Cannon MD~ Signed [facility] Work Phone: 1(472) 379-451406-22-[address] Tran [facility] August 14, 2022 10:06pm Note Date/Time August 14, 2022 6:22 pm [facility] Medical Records Department [address] [place] [address] Emergency Department Summary 08/14/22 MR#: [id number] Acct: [id number] Name: MEGGAN ARITA Rep #:[id number] : 1960 61 From: Princess Tran MD PCP: Dr. Erica Cannon MD Status:AD M IN Location: [place] [address] HPI History of Present Illness Chief Complaint: [...] that her diabetes medication dosing was changed. [facility] Medical History Anemia Anxiety Asthma Chronic respiratory [...] mg PO Q4H PRN PRN Fever, pain 1-1010 #0 tabs 11/20/21 [Rx Last Taken Unknown] [...] Medical decision making narrative: Patient placed on eclectic doctor. IV fluids initiated. EKG obtained to evaluate [...] (Auto) 43.0 L Lymph % (Auto) 31.3 [place] % (Auto) 17.5 H Eos % (Auto) [...] Clarity Cloudy Urine pH 5.0 Ur Specific [place] 1.030 Urine Protein 100 H Urine Glucose [...] Chief Complaint: Abd Pain ED Provider: Princess Tran Dx/Rx/DC Orders Clinical Impression: Acute renal failure, [...] (Reason: Fever, pain 1-10/10) Qty: 0 0RF furosemide [Lasix] 40 mg tablet 40 mg PO DAILY Qty: 1 0RF Rx Instructions: start on 11/23/21 ondansetron HCl 4 mg tablet 4 mg PO PRN PRN (Reason: Nausea) Primary Care Provider: Erica Cannon Referrals: Erica Cannon MD [Primary Care Provider] - Disposition Disposition: Acute Care Hospital [facility] What to do if you have Problems For any increased pain, shortness of breath, bleeding, nausea or vomiting, chestpain, or any unexpected problems, contact your Primary Care Provider. Call [facility] ([phone]) or report to the closest Emergency Room. Call 911 if necessary. 08/14/222205 <Electronically signed by Princess Tran MD> Cosigner Signature (if applicable): CC: Dr. Erica Cannon MD ~ Signed [facility] Work Phone: 1(992) 688-405906-19-2023 Instructions* Patient Instructions* Katya Oliva APRN.DIRECTOR MULTIPLE SCLEROSIS CENTER - 08/12/2022 3:00 PM EDT Drink liquids [...] or signs of dehydration documented in this encounterBerger Hospital06-19-2023 History of Present illness Narrative* Katya [...] IRON DEFIC ANEMIA NOS 01/20/2007 Colon 03-22-02 ([facility]): no polyps, masses or AVMs Lactose intolerance [...] W/COLLJ SPEC WHEN PFRMD 01/30/16 Colonoscopy mac [facility] outpt EGD TRANSORAL BIOPSY SINGLE/MULTIPLE 07/22/06 ESOPHAGOGASTRODUODENOSCOPY TRANSORAL DIAGNOSTIC 2001 EGD ESOPHAGOGASTRODUODENOSCOPY TRANSORAL DIAGNOSTIC 01/30/16 EGD mac [facility] outpt IMPLANT MESH OPN HERNIA RPR/DEBRIDEMENT CLOSURE [...] 2 mL^Rfl: 0 WALKER ROLLATOR SEAT WITH 6 WHEELS - RED^Diagnosis: Unsteady gait, primary osteoarthritis both knees, decreased mobility^Disp: 1 Each^Rfl: 0 cyclobenzaprine (FLEXERIL) 5 mg tablet^Take 1 tablet by mouth three times daily as needed.^Disp: 90tablet^Rfl: 1 Leg Brace (KNEE SUPPORT BRACE) [facility]^1 Each as directed.^Disp: 1 Each^Rfl: 1 nystatin [...] INSULIN PEN NEEDLE UF) 31 gauge x 5/16^USE 6 DAILY DIRECTED with Toujeo and Humalog and Kaity^Disp: 150 Each^Rfl: 5 Diaper,Brief, Adult,Disposable (DISPOSABLE BRIEF)^Bariatric Briefs - Prevail. Going thru [facility]. 2 per day.^Disp: 96 Each^Rfl: 1 blood [...] plan. Katya Oliva APRN.CNP documented in this encounterBerger Hospital06-19-2023 Miscellaneous Notes* Telephone Encounter - Lili Cummings RN - 08/12/2022 9:21 AM EDT Protocol recommends see provider in 24 hours. Pt scheduled today with Katya Older OFFICE SERVICE COORDINATOR. Care plan reviewed with patient. Patient voices [...] PAIN: Denies, states she had some at [facility] but none now. 6. ABDOMINAL PAIN SEVERITY: [...] ate was a chicken salad sandwich from [employer], talked with Dr Tyler about possible spoiled hudson and that it should run it's course soon. 10. ANTIBIOTIC USE: Denies. 11. OTHER SYMPTOMS: Pt denies fever, blood in stool, or nausea. 12. : Postmenopausal. Protocols used: [id number] documented in this encounterBerger Hospital06-14-2023 History and physical note * Daphne Araujo APRN.DIRECTOR MULTIPLE SCLEROSIS CENTER - 08/07/2022 11:18 AM EDT HISTORY AND [...] fevers. Neurological: No history of TIA's, stroke, RAW MILL OPERATOR tumor, impaired sensorium, hemiplegia, paraplegia orquadraplegia. No [...] pain, CHF, congenital heart defect, DVT/PE, recent OR, murmur/valvular heart disease, open heart surgery and valve surgery. GI: Positive for: GERD (on rx) and nausea Negative for: abdominal pain, dysphagia, hepatitis, irritable bowel syndrome, inflammatory bowel disease, liver disease, pancreatitis, vomiting and ETOH >2 drinks/day. : Positive for: renal failure and urinary tract infection (hx). Negative for: dysuria, frequent urination, hesitancy, urinary incontinence and nephrolithiasis. STOCK ROLLER: Negative for abnormal vaginal bleeding, abnormal vaginal [...] IRON DEFIC ANEMIA NOS 01/20/2007 Colon 03-22-02 ([facility]): no polyps, masses or AVMs Lactose [...] W/COLLJ SPEC WHEN PFRMD 01/30/16 Colonoscopy mac [facility] outpt EGD TRANSORAL BIOPSY SINGLE/MULTIPLE 07/22/06 ESOPHAGOGASTRODUODENOSCOPY [...] week. Taking Yes WALKER ROLLATOR SEAT WITH 6 WHEELS - RED Diagnosis: Unsteady gait, primary [...] INSULIN PEN NEEDLE UF) 31 gauge x 5/16 USE 6 DAILY DIRECTED with Toujeo and Humalog and Byetta Taking Yes Diaper,Brief, Adult,Disposable (DISPOSABLE BRIEF) Bariatric Briefs - Prevail. Going thru [facility]. 2 per day. Taking Yes blood sugar [...] (Src) 97.3 (Temporal) Resp 16 Ht 5' 8 (1.73m) Wt 347 lb (157.4kg) SpO2 96% [...] or any previous visit (from the past 68565 hour(s)). Assessment Patient has the following medical [...] the daytime Non-male patient STOP-Bang Score: 6 [id number] Score: Age: <65 Sex: female CHF history: No Hypertension history: Yes Stroke/TIA/thromboembolism history: No Vascular disease history: No Diabetes history: Yes [id number] Score: 3 ARISCAT Score: Age: 51-80 Preoperative [...] and consent discussed: yes. Patient / Responsible Republican agrees to proceed: yes Patient / Surrogate [...] 11:18 AM PAGER/CONTACT #: documented in this encounterBerger Hospital06-14-2023 Instructions* Patient Instructions* Daphne Araujo APRN.CNP - 08/07/2022 11:18 AM EDT PATIENT PREOPERATIVE INSTRUCTIONS No ref. provider found has scheduled you for your procedure at this surgery center: [facility]: [phone] --[facility] [place], [address] [place] [address]. Please read below carefully for your personalized [...] Procedures: - YOU MUST HAVE A RESPONSIBLE PEPPER CUTTER TAKE YOU HOME. A SLASHER TENDER HELPER OR APPRENTICESHIP REPRESENTATIVE CANNOT BE MADE A RESPONSIBLE PEPPER CUTTER. - We recommend that a responsible person stays with you overnight to take care of you. - You cannot stay in a hotel alone after outpatient surgery. You will not be permitted to have yoursurgery, if you do not have someone to take care of you. If you already have an Advance Directive, please fax a copy to [phone] or email to for it to be [...] day. Daphne Araujo APRN.NIKKY documented in this encounterBerger Hospital06-08-2023 Miscellaneous Notes* Telephone Encounter - Lili Cummings RN - 08/01/2022 8:34 AM EDT Pt called and is notified of providers results and instructions. Pt voices understanding. Lili Cummings RN * Telephone Encounter - Erica Cannon MD - 07/31/2022 7:20 PM EDT She has follow up with [facility] 08[facility]02 to discuss med and symptoms. The [...] Telephone Encounter - Lili Cummings RN - 07/31/2022 12:30 PM EDT Pt states [...] 09/05/2020 25 Please advise. Thank you. Lili Cummings RN documented in this encounterBerger Hospital06-01-2023 Miscellaneous Notes* Telephone Encounter - Ruchi Malone ANA - 07/25/2022 9:43 AM EDT COMPLETED,SIGNED AND FAXED BACK. * Telephone Encounter - Ruchi Malone LPN - 07/24/2022 1:17 PM EDT rec'd and to pcp to review. * Telephone Encounter - Nanci Dorado LPN - 07/24/2022 12:23 PM EDT Pt called and we will be getting a fax from [email or web address] for the following items for pt. 1)pullup depends the size depends on the pt's weight, pt thought maybe a 3 or 4. Pt uses approx 5 per day. 2)bed protectors and pt uses approx 2 per day. Please watch for fax. Pt gave the phone number for the above company. PH: [phone] Nanci Dorado LPN documented in this encounterBerger Hospital05-12-2023 History of Present illness Narrative* Aurora Aparicio, [facility] - 07/05/2022 10:30 AM EDT Primary Care [...] able to connect her CGM cj to [employer] to share readings DIET/EXERCISE/SOCIAL Hx: Not a [...] 2 mL 3 WALKER ROLLATOR SEAT WITH 6 WHEELS - RED Diagnosis: Unsteady gait, primary [...] INSULIN PEN NEEDLE UF) 31 gauge x 5/16 USE 6 DAILY DIRECTED with Toujeo and Humalog and Byetta 150 Each 5 Diaper,Brief, Adult,Disposable (DISPOSABLE BRIEF) Bariatric Briefs - Prevail. Going thru [facility]. 2 per day. 96 Each 1 blood [...] up: Pharmacy follow up: 08/02/22 Aurora Aparicio, PharmD, BCACP Primary Care Clinical Pharmacist The majority of the pharmacy visit (> 50%) was spent counseling and/or coordinating care for thepatient. interaction: telephonic time was 20 minutes. documented in this encounterBerger Hospital05-05-2023 Miscellaneous Notes* Telephone Encounter - Ruchi Malone LPN - 06/28/2022 10:21 AM EDT Approved from 06/27/22 to 06/26/23. My chart message to pt and info relayed to pharmacy. * Telephone Encounter - Chayito Boyd Ma - 06/27/2022 11:10 AM EDT Prior Authorization has been completed online at [email or web address] for Miguel Angelwinsomejosef, will await response. [id number] Please keep encounter open until final decision has been received and documented from insurance company. Chayito Boyd MA * Telephone Encounter - Maria Dolores Ivan RN - 06/27/2022 10:36 AM EDT Prior Authorization Documentation Patient calls to request Prior Authorization Prior authorization requested for the following medication: Medication: Miguel Angelunjaro Provider: Lydia North Insurance Company Name: [facility] Medicaid Insurance Company Phone number: Not given Patient ID number: [id number] Pharmacy Name: [facility] Telephone number: [phone] Maria Dolores Ivan RN documented in this encounterBerger Hospital05-04-2023 Miscellaneous Notes* Telephone Encounter - Maria [...] SAME. Will have someone come in and car pick up driver stool kit from the lab. Trulicity is causing her to have nausea for about 3 days after taking her injection. She states this started sometime before the abdominal pain, cramping and diarrhea started. * Telephone Encounter - Silvestre Jain APRN.NIKKY - 06/24/2022 4:19 PM EDT It looks [...] an appointment. She reports that someone could car pick up driver supplies to do the test if provider is willing to order. Please review and advise, Maria Dolores Ivan RN documented in this encounterBerger Hospital05-03-2023 Miscellaneous Notes* Telephone Encounter - Leticia Valeriogo, [facility] - 06/26/2022 12:36 PM EDT Called patient back. She states she would like to stop taking Trulicity. States it is affecting meto the point that I don't want to take it. Having nausea and abdominal cramping. Has been [...] 5 mg subcutaneously one time a week. Leticia Echavarria RPh * Telephone Encounter - Allison Mendoza Pss - 06/26/2022 9:14 AM EDT Patient calling stating Trulicity is making her feel nauseated, headaches, and increased appetite. Patient asking if there is anything else she can try. Please advise and call patient. Patient uses [facility] [facility] documented in this encounterBerger Hospital04-14-2023 Miscellaneous Notes* Telephone Encounter - Ruchi [...] one d/t weight. Please review. Fax for Amparo: . Maria Dolores Ivan RN documented in this encounterBerger Hospital04-11-2023 Miscellaneous Notes* Addendum Note - COLLEEN Polanco - 06/04/2022 10:14 AM EDTAddended by: LIANNA THAKKAR on: 06/04/2022 10:14 AM Modules accepted: Orders, SmartSet documented in this encounterBerger Hospital04-11-2023 History of Present illness Narrative* John [...] Past Histories independently gathered by the clinical patient support specialist and the remaining scribed note [...] components. John Caldwell MD documented in this encounterBerger Hospital04-11-2023 Instructions* Patient Instructions* Sosa Vickers - 06/04/2022 8:09 AM EDT INSTRUCTIONS FOR SCHEDULING SURGERY: CONTACT DR. CALDWELL'S INSTALLATION AND SERVICE TECHNICIAN: ANDREW MCKINNON AT [phone] (9AM-5PM, FRIDAY-FRIDAY) Please wait 24 hours after your appointment to contact Andrew - IF YOU RECEIVE VOICEMAIL, PLEASE LEAVE A MESSAGE AND WE WILL RETURN YOUR CALL - MY PAINT FACTORY WORKER WILL INFORM YOU IF ANY ADDITIONAL PREOPERATIVE [...] MOST PROCEDURES EXCEPT FOR THOSE WHICH ARE LOCAL ANESTHESIA ONLY), YOU WILL NEED TO FAST FOR 8 HOURS BEFORE YOUR SCHEDULED SURGERY TIME. SPECIFIC DETAILS REGARDING DAY OF SURGERY INSTRUCTIONS INCLUDING WHETHER YOU NEED TO STOP ANY EXISTING MEDICATIONS WILL BE EXPLAINED AT YOUR PRE-OPERATIVE PHYSICAL. - YOU HAVE ANY ADDITIONAL CONCERNS OR QUESTIONS, CALL DR. CALDWELL'S OFFICE AT [phone] (PRESS 0TO BYPASS THE AUTOMATED GREETING AND BE TRANSFERRED TO AN BARREL RAISER HELPER) documented in this encounterBerger Hospital04-07-2023 History of Present illness Narrative* Justinmaggie Aparicio, [facility] - 05/31/2022 10:30 AM EDT Primary Care [...] to help her set up connection through [employer] ROS: Patient denies CP, SOB, YI, blurred [...] capsule 0 Leg Brace (KNEE SUPPORT BRACE) mis 1 Each as directed. 1 Each 1 [...] INSULIN PEN NEEDLE UF) 31 gauge x 5/16 USE 6 DAILY DIRECTED with Toujeo and Humalog and Byetta 150 Each 5 Diaper,Brief, Adult,Disposable (DISPOSABLE BRIEF) Bariatric Briefs - Prevail. Going thru [facility]. 2 per day. 96 Each 1 blood [...] Follow up: Pharmacy follow up on 07/05/22 Real MoralesD, BCACP Primary Care Clinical Pharmacist The majority of the pharmacy visit (> 50%) was spent counseling and/or coordinating care for thepatient. interaction: telephonic time was 25 minutes. documented in this encounterCleveland [id number] Miscellaneous Notes* Telephone Encounter - Mary Woods [...] medication recommendations and requesting call back at [phone] with provider response. Maria Dolores Ivan RN [...] Provider: LYDIA NORTH Ordering User: AURORA APARICIO, PharmD, BCACP Primary Care Clinical Pharmacist * Telephone [...] Rosenthal. Deirdre Jacob LPN documented in this encounterBerger Hospital04-06-2023 Miscellaneous Notes* Telephone Encounter - Pati [...] insurance. * Telephone Encounter - Lydia North APRN.KATE - 05/30/2022 2:41 PM EDT She needs [...] is Randa Bailon. Please review and advise, Treva Cr RN documented in this encounterBerger Hospital04-05-2023 Miscellaneous Notes* Telephone Encounter - Silvestre Jain APRN.CNP - 05/29/2022 2:25 PM EDT PDMP website checked and validated. All prescriptions have been APPROPRIATELY filled. No suspiciousactivity was identified. 05/29/2022 by Silvestre Jain APRN.NIKKY * Telephone Encounter - Mary Woods RN [...] for medication: Please advise. Thank you. Mary oWods RN documented in this encounterBerger Hospital03-30-2023 Miscellaneous Notes* Telephone Encounter - Erica [...] able to help but did find original parts person. Shewas able to send an email to Marialuisa asking about the SASHA and what needs to be filled out and to either call office and ask to speak to a nurse/Tawanna/ or email Tawanna about what needs to be done to put COCthrough. Patient ID number is [id number] and phone call ref# is [id number]. * [...] Ivan RN - 05/17/2022 11:29 AM EDT Mariaulisa with [facility] calls to ask if provider would put in a SASHA (continuity of care) request through patient's insurance for DME (oxygen, CPAP, wheelchair, and bed). Marialuisa reports that [facility] is patient's current provider and her insurance no longer covers them. Patient is at home now and [facility] was sending bills to patient at the half-way. Patient is not able to pay the cost and [facility] is going to car pick up driver equipment if SASHA isn't written. Marialuisa is working on finding a new supplier but until then SASHA needs to be in place. Marialuisa reports this can be completed through the provider website or by calling [phone] and reports that it is emergent. Maria Dolores Ivan RN documented in this encounterBerger Hospital03-28-2023 History of Present illness Narrative* Silvestre Jain APRN.DIRECTOR MULTIPLE SCLEROSIS CENTER - 05/21/2022 2:37 PM EDT VIRTUAL VISIT [...] Total Time Spent: 21-30 minutes SUBJECTIVE Meggan Arita is a 61 year old female here today for a check up on her medical problems. Chief Complaint Patient presents with: Follow Up Home Care Management IRENE Chelsea presents today for a virtual visit via my chart on the Edyn platform. Presents today due to needing a face to face visit for . Currently receiving services from [facility] for nursing and therapy. She was recently hospitalized and the spent time in a SNF before returning home. [facility] services have tremendously helpful. Overall she is [...] by mouth once daily. flash glucose sensor (Absorption PharmaceuticalsSTYLE SHAKIRA 2 SENSOR) kit Apply new sensor [...] INSULIN PEN NEEDLE UF) 31 gauge x 5/16 USE 6 DAILY DIRECTED with Toujeo and Humalog and Byetta Diaper,Brief, Adult,Disposable (DISPOSABLE BRIEF) Bariatric Briefs - Prevail. Going thru [facility]. 2 per day. blood sugar diagnostic (BLOOD [...] joint space with marginal osteophytes--x-ray knee 2015 Depression - 01/24/2016 Type 2 Diabetes (Hcc) - 09/01/2014 Bmi 60.0-69.9, Adult (Hcc) - 06/30/2014 Pulmonary Hypertension (Hcc) - 04/23/2013 [...] Anemia, Unspecified - 01/20/2007 Comment: Colon 03-22-02 ([facility]): no polyps, masses or AVMs Anxiety State - 12/09/2006 Generalized Osteoarthrosis, Unspecified Site - 10/29/2006 Esophageal Reflux - 03/16/2005 Comment: EGD in 06-30: no evidence of esophagitis but there is gastritis (H pylori was negative) Chronic Hepatitis, Unspecified ([facility]) - 03/06/2005 Comment: Liver biopsy w/ cholecystectomy Hypertension Comment: Echo at [facility] 01-25: LVH, mild TR, LAE, RVE, PASP 38 (mild), no EF documented per [facility] 01-07-03: consider GERD for atyp CP, not cath candidate from obesity, doubt cardiac source ECG 03-30: NSR with PVC, lat T flattening, no ischemia/injury (ECG NL in 10-27 at [facility]) Rec for Dobut Echo in 05-28 per [...] 04-04 with the Holter findings Carotids at [facility] in 04-04: 1-15% stenosis bilaterally Obstructive Sleep [...] - ICD9: 781.99, ICD10: R26.89 Continue with [facility] PT services. 3. Gait instability - ICD9: [...] adult (HCC) - ICD9: V85.44, ICD10: Z68.44 Silvestre Jain APRN.DIRECTOR MULTIPLE SCLEROSIS CENTER Patient verbalizes understanding of instructions from today's [...] Time Spent: 21-30 minutes documented in this encounterBerger Hospital03-24-2023 Miscellaneous Notes* Telephone Encounter - Rina [...] labwork done. Advised there is order for UACYNTHIAS if UTI s/s do not improve. Jaky understood from patient it was blood work pcp wanted done. Advised there are no orders for blood work. Jaky asking if pcp wants blood work to fax to fax # [phone] documented in this encounterBerger Hospital03-24-2023 Miscellaneous Notes* Telephone Encounter - Nanci Dorado LPN - 05/17/2022 8:14 AM EDT Apt scheduled. Nanci Dorado LPN * Telephone Encounter - Silvestre Jain APRN.NIKKY - 05/03/2022 3:56 PM EST Consult for [...] weight loss. Also see if working with game trapper to help with weight loss or wants [...] patient. * Telephone Encounter - Silvestre Jain APRN.NIKKY - 04/26/2022 10:27 AM EST She is on a higher dose of Trulicity so would not recommend stopping it since sugars would likely rebound but could decrease the dose and see how she does and continue to work on decreasing while monitoring sugars. Would she be alright with that? * Telephone Encounter - Sridevi Isabel LPN - 04/26/2022 9:03 AM EST Referral to [facility] faxed. Patient aware of same. She is [...] and whether something she could stick to group home. If not, why not. Ideally this is something would discuss at an appointment. What are her sugars running now? * Telephone Encounter - Nanci Dorado LPN - 04/25/2022 10:20 AM EST Pt called request the followin)prescription/referral for [facility] to start to see pt again for nursing, PT and OT. Pt got insurance back that will cover them again. PH: [phone] FAX: [phone] 2)Trulicity not working per pt. Appetite has [...] above. Nanci Dorado LPN documented in this encounterBerger Hospital03-21-2023 Miscellaneous Notes* Telephone Encounter - Treva Cr RN - 05/14/2022 4:22 PM EDT Patient calls back to see about the status of this request. Notified patient that pharmacy was contacted again and that pharmacy is going to contact [facility] to see what is going on with PA. Treva Cr RN * Telephone Encounter - Ruchi Malone LPN - 05/14/2022 3:56 PM EDT called the pharmacy and this is still noting PA needed. Pharmacy will call [facility]. * Telephone Encounter - Ruchi Malone [...] pt. Nanci Dorado LPN documented in this encounterBerger Hospital03-20-2023 Miscellaneous Notes* Telephone Encounter - Mary Woods RN - 05/13/2022 6:26 PM EDT Spoke with patient. Given message from provider's office. Patient verbalizes understanding. Mary Woods RN * Telephone Encounter - Ruchi Malone LPN - 05/13/2022 1:53 PM EDT Rec'd fax from [facility]. The semaglutide has been approved from 05/09/22 to 05/08/2023. Pharmacy notified and my chart message to pt. * Telephone Encounter - Chayito Boyd Ma - 05/09/2022 2:41 PM EDT Prior Authorization has been completed online at [email or web address] for ozempic, will await response. [id number] Please keep encounter open until final decision has been received and documented from insurance company. Chayito Boyd MA documented in this encounterBerger Hospital03-17-2023 History of Present illness Narrative* Aurora Aparicio, [facility] - 05/10/2022 10:30 AM EDT Primary Care Pharmacy Visit CC (Reason for Consult): DM Goal: A1c<8% Last Collaborating Physician/OLIVE GROWER Visit: 04/04/22 Meggan Arita is a 61 [...] share her data, son manages the account. [employer] invite sent to patient ROS: Patient denies CP, SOB, YI, blurred [...] IRON DEFIC ANEMIA NOS 01/20/2007 Colon 03-22-02 ([facility]): no polyps, masses or AVMs Lactose [...] by mouth once daily. flash glucose sensor (Abs[employer] PharmaceuticalsSTYLE SHAKIRA 2 SENSOR) kit Apply new sensor [...] INSULIN PEN NEEDLE UF) 31 gauge x 5/16 USE 6 DAILY DIRECTED with Olga and Humelida and Byetta Diaper,Brief, Adult,Disposable (DISPOSABLE BRIEF) Bariatric Briefs - Prevail. Going thru [facility]. 2 per day. blood sugar diagnostic (BLOOD [...] verbalized understanding of instructions. Aurora Aparicio PharmD, [facility] Clinical Pharmacist The majority of the pharmacy visit (> 50%) was spent counseling and/or coordinating care for thepatient. [Telephonic] time was 45 minutes. documented in this encounterBerger Hospital03-16-2023 Miscellaneous Notes* Telephone Encounter - Pati mSith LPN - 05/09/2022 4:27 PM EDT Patient [...] pharmacy. Nanci Dorado LPN documented in this encounterBerger Hospital03-15-2023 Miscellaneous Notes* Telephone Encounter - Marquez [...] order. Patient states that she talked to [facility] and was told that they have Ozempic in. Patient asking if a prescription for Ozempic can be sent into [facility]? Please review and advise, Treva Cr RN documented in this encounterBerger Hospital03-14-2023 Miscellaneous Notes* Telephone Encounter - Silvestre Jain APRN.CNP - 05/07/2022 7:26 AM EDT PDMP website checked and validated. All prescriptions have been APPROPRIATELY filled. No suspiciousactivity was identified. 05/07/2022 by Silvestre Jain APRN.NIKKY * Telephone Encounter - Rina Rincon LPN - 05/06/2022 2:03 PM EDT Patient had VV on 04/04/2022 with Ivonne North APRN.RAW MILL OPERATOR. Has OV scheduled for 05/21/2022 with Silvestre Sandoval CNP. Rina Rincon LPN * Telephone Encounter - Allison Mendoza Pss [...] advise. Allison Mendoza Pss documented in this encounterBerger Hospital03-10-2023 Miscellaneous Notes* Telephone Encounter - Sridevi [...] Advise, Treva Cr RN documented in this encounterBerger Hospital03-03-2023 Miscellaneous Notes* Telephone Encounter - Shant Boyle RN - 04/26/2022 3:08 PM EST Patient did not receive this message in time. Advised to EC for evaluation. Patient states she is in a wheelchair and has difficulty walking. Patient agreeable to try EC online for VV. * Telephone Encounter - Silvestre Jain APRN.DIRECTOR M[facility]IPLE SCLEROSIS [facility] - 04/26/2022 10:01 AM EST Can she do a virtual visit at 11:40? * Telephone Encounter - Sridevi Isabel LPN - 04/26/2022 9:26 AM EST Spoke with Chelsea and she stated that she has been exposed to strep throat. Has had a sore throat for two days. Denies fever. States able to swallowing but very painful. Asking for treatment. documented in this encounterBerger Hospital02-28-2023 History of Present illness Narrative* Silvestre [...] meeting with no response. documented in this encounterBerger Hospital02-22-2023 Miscellaneous Notes* Telephone Encounter - Mary [...] see if she would like a different [facility]? * Telephone Encounter - Anh Hazel LPN - 04/17/2022 1:20 PM EST Vinicio from [facility] received orders and they do not take patient insurance. * Telephone Encounter - Marquez Araya Ma - 04/17/2022 11:38 AM EST Faxed to number provided as requested. Marquez Araya Ma * Telephone Encounter - Silvestre Jain APRN.NIKKY - 04/17/2022 10:48 AM EST Order placed, please fax. Thanks! * Telephone Encounter - Shant Boyle RN - 04/16/2022 4:38 PM EST Patient asking pcp to fax order to [facility] for nursing, PT, OT. Patient reports she wants toreinstate their services. Fax number [phone] documented in this encounterBerger Hospital02-21-2023 Miscellaneous Notes* Telephone Encounter - Rina Rincon LPN - 04/16/2022 5:56 PM EST Patient aware and forwarded the message via Expan per pt request. Rina Rincon LPN * Telephone Encounter - Erica Cannon MD - 04/16/2022 5:37 PM EST From Leticia: Blake Cannon, The patient can try calling the [employer] phone number ( ) and request a replacement sensor be sent to her home. Unfortunately the DME company that delivers her current supplies would not be able to send a replacement sensor if it is deemed to be too soon to refill per her insurance. Leticia Tell patient to request from [facility] replacement sensors as noted above. If her [...] like there is an issue with the plastic surgery coordinator since the sensors have been changed and the issue continues. Maria Dolores Ivan RN' * Telephone Encounter - Rina Rincon LPN - 04/16/2022 11:43 AM EST Message left on patient's voicemail to call office for update. Rina Rincon LPN * Telephone Encounter - Rina Rincon LPN - 04/15/2022 9:33 AM EST Patient called the company that deals with the [employer] diabetic supplies, was unable to get any help. Patient changed out the transmitter and is working properly. Patient will be short one transmitter due to changing it early. Inquiring about having a extra 1 requested. Rina Rincon LPN * Telephone Encounter - [...] on today. She is going to call [employer] and let them know of the faulty [...] confirmed low. Please advise. documented in this encounterBerger Hospital02-21-2023 Miscellaneous Notes* Telephone Encounter - Erica [...] you. Shant Boyle RN documented in this encounterBerger Hospital02-15-2023 Miscellaneous Notes* Telephone Encounter - Anh Hazel LPN - 04/10/2022 9:12 AM EST Patient returned call and went over notes below from Lydia North OFFICE SERVICE COORDINATOR with understanding. * Telephone Encounter - Marquez [...] calls to report she is tired of sticking herself to check blood sugars. Pt is requesting a Continuous Glucose Monitor and is asking if that would be appropriate for her. Please review and advise. Muriel Burgess LPN documented in this encounterBerger Hospital02-14-2023 Miscellaneous Notes* Telephone Encounter - Sridevi Isabel LPN - 04/09/2022 2:34 PM EST Spoke with [employer] and that is all that they carry. Patient did speak with [employer] and the patient states she was going to look into buying something off of [employer]. * Telephone Encounter - Silvestre Jain APRN.CNP - 04/03/2022 3:00 PM EST Can we [...] PM EST Patient did speak with a [employer] that supplies bariatric mattress/bed and they told [...] a gel overlay. * Telephone Encounter - Gay Clements LPN - 03/05/2022 4:24 PM EST [...] bed and adult diapers. Would see if [facility] takes care of both bariatric hospital bed and adult diapers. There is no [facility] anymore. [facility] last I heard does not bill insurances, [...] determine size of adult diapers (X-Large versus bariatric if there is that size and probably [...] herinsurance would pay for the bed through [facility], so she would like the order send [...] on the floor. Patient plans to call Cell Support Operator to help with where she can get larger Bariatric bed from. Patient also requesting to get Depends since she can not move fast enough to make it to the bathroom. Patient said she needs larger size to fit her. She was given [facility] [phone] phonenumber or Rodney Chairez. Advised patient that DME would need face to face visit notes for that type of item. Patient said send request to PCP and will go from there. Please advise documented in this encounterBerger Hospital02-14-2023 Miscellaneous Notes* Telephone Encounter - Lydia North APRN.CNS - 04/09/2022 1:44 PM EST rx sent today * Telephone Encounter - Nanci Dorado LPN - 04/09/2022 11:13 AM EST Pt called to check status she is out of medication. Nanci Dorado LPN * Telephone Encounter - Muriel Burgess LPN - 04/08/2022 12:25 PM EST Pt calls to report [facility] said the following rx was cancelled by pt. Pt (along with Landon on the phone) reports she did not do this. As[facility]. Also: Arturo reports that when pt [...] patient. Muriel Burgess LPN documented in this encounterBerger Hospital02-14-2023 Miscellaneous Notes* Telephone Encounter - Nanci [...] 9:27 AM EST Message left on Charu Chaka () voicemail to call office for update [...] 04/01/2022 3:17 PM EST Message left on voicemail to call office concerning patient. Rina Rincon LPN * Telephone Encounter - Lili Cummings RN - 03/27/2022 11:41 AM EST Tylor with [facility] called in asking about an [...] patient, if appropriate. For any questions, call [facility] at [phone]. Thank you. documented in this encounterBerger Hospital02-13-2023 Miscellaneous Notes* Telephone Encounter - Lydia North APRN.RAW MILL OPERATOR - 04/08/2022 1:37 PM EST Printed. Closing this encounter due to other open encounter this date, can address both in one encounter. * Telephone Encounter - Gregoria Slyvester - 04/06/2022 11:18 AM EST Patient calling in because she needs a prescription for a new handicap sign for her car. Please advise and call patient when completed. Gregoria Lamb Pss documented in this encounterBerger Hospital02-09-2023 History of Present illness Narrative* Lydia North APRN.CNS - 04/04/2022 10:00 AM EST AMBULATORY TELEPHONE VISIT Meggan Arita has consented to this telephone encounter. Video visit. In [place]. Persons Present: patient Chief Complaint/Reason: eye problem [...] Total Time Spent: 20 minutes Lydia North APRN.CNS documented in this encounterBerger Hospital02-06-2023 Miscellaneous Notes* Telephone Encounter - Sridevi [...] Maria Dolores Ivan RN documented in this encounterBerger Hospital02-06-2023 Miscellaneous Notes* Telephone Encounter - Rina Rincon LPN - 04/01/2022 3:24 PM EST Office visit notes faxed to the number provided. Rina Rincon LPN * Telephone Encounter - Erica Cannon MD - 03/30/2022 4:10 PM EST Addended the progress note. Print to fax * Telephone Encounter - Treva Cr RN - 03/25/2022 4:11 PM EST Emmanuel from [facility] in [place] calls and requesting office notes to be faxed to [phone]. Emmanuel states that they are providing patient her incontinent supplies and they need this for CMN. Danielestates that within office note it must contain that patient needs depends and the frequency that patient uses supplies. Called and spoke with patient to verify that she is using [facility] for supplies. Patient states that she is using them for incontinent supplies. Patient states that she uses a new one at least 4times a day. Office note from 02/15/2022 does mention incontinence supplies but does not mention frequency. Please review and advise, Treva Cr RN documented in this encounterBerger Hospital02-01-2023 Miscellaneous Notes* Telephone Encounter - Sridevi Isabel LPN - 03/27/2022 2:49 PM EST PATIENT NOTIFIED OF SAME. * Telephone Encounter - Silvestre Jain APRN.CNP - 03/26/2022 12:40 PM EST Please let her know this was sent. Thanks! * Telephone Encounter - Sridevi Isabel LPN - 03/26/2022 11:16 AM EST Patient is requesting a script for nystatin powder. Had been using this in the half-way under skin folds. documented in this encounterBerger Hospital01-30-2023 Miscellaneous Notes* Telephone Encounter - Nanci Dorado LPN - 03/25/2022 1:57 PM EST Spoke with pt and information listed below given. Pt verbalizes understanding. Nanci Dorado LPN * Telephone Encounter - Lydia North APRN.KTAE - 03/25/2022 12:53 PM EST Should not take Byetta if taking Trulicity. Rx sent for trulicity. * Telephone Encounter - Nanci Dorado LPN - 03/25/2022 12:08 PM EST Son called for pt. They found Trulicity at [facility] and asking for the prescription to be [...] you. Nanci Dorado LPN documented in this encounterBerger Hospital01-30-2023 Miscellaneous Notes* Telephone Encounter - Nanci Dorado LPN - 03/25/2022 8:13 AM EST Spoke with pt and she will keep the Lorazepam local. Please approve for [facility]. Nanci Dorado LPN * Telephone Encounter - Erica Cannon MD - 03/23/2022 9:25 PM EST Corrected RXs for 90 day supply for [facility] Would recommend keeping lorazepam RX locally but if wants sent to [facility], would still be sent for30 days at a time as for most mailaway [facility]. Note that local RX was just recently filled 03/21 a\nd prior to this RX, prior refills had [...] CANNON MD * Telephone Encounter - Gay E Starr PEREZ - 03/23/2022 9:33 AM EST Patient wanting [...] notify patient. Michelle Cedeno documented in this encounterBerger Hospital01-19-2023 Miscellaneous Notes* Telephone Encounter - Treva [...] mg. It is not any where in [facility]. Asking if there is another medication that does the same thing? Please advise patient. documented in this encounterBerger Hospital01-17-2023 Miscellaneous Notes* Telephone Encounter - Chayito Boyd Ma - 03/12/2022 12:44 PM EST Patient picked rx up on 03/01 for 28 day supply Chayito Boyd Ma * Telephone Encounter - Chayito Boyd Ma - 02/27/2022 5:08 PM EST Prior Authorization has been completed online at [email or web address] for Trulicity, will await response. HERNÁNDEZ [id number] Please keep encounter open until final decision has been received and documented from insurance company. Chayito Boyd MA * Telephone Encounter - Treva Cr RN - 02/27/2022 4:16 PM EST PRIOR AUTHORIZATION Medication for Prior Authorization: Trulicity Insurance Company: Medicaid Patient insurance ID number: [id number] Treva Cr RN * Telephone Encounter - Mary Woods RN - 02/27/2022 3:21 PM EST Patient calling to say Trulicity 1.5 mg dose needs a prior authorization. She will call back with insurance information. Mary Woods RNFLOORING MACHINE OPERATOR Medication for Prior Authorization: Trulicity 1.5 mg Other formulary meds available : NO Insurance Company: Medicaid Insurance Company phone number: Patient insurance ID number: Mary Woods RN documented in this encounterBerger Hospital01-17-2023 Miscellaneous Notes* Telephone Encounter - Nanci [...] Telephone Encounter - Anh Hazel LPN - 03/11/2022 2:25 PM EST Patient calling [...] end of this week 03/16/2022. Patient uses [facility] for her pharmacy. Please advise Patient has [...] you. Anh Hazel LPN documented in this encounterBerger Hospital01-09-2023 Miscellaneous Notes* Telephone Encounter - Nanci Dorado LPN - 03/04/2022 2:46 PM EST Spoke with pt and she is not taking the Zoloft or Effexor. Nanci Armendariz Estrada PEREZ * Telephone Encounter - Erica Cannon [...] you. Shant Boyle RN documented in this encounterBerger Hospital01-09-2023 Miscellaneous Notes* Telephone Encounter - Shant oByle RN - 03/04/2022 10:29 AM EST Patient [...] 03/01/2022 4:47 PM EST Patient reports the [facility] nurse was there today and neetu labs at around 11 am. Nurse was going to call pcp office and ask pcp to send Rx to [facility] for muscle relaxers. Patient reports her shoulders are hurting and feels muscle relaxers would help. Please advise patient. Patient asking message be sent high alert. documented in this encounterBerger Hospital01-06-2023 Miscellaneous Notes* Telephone Encounter - Nanci Dorado LPN - 03/01/2022 9:09 AM EST Janey called back and message below given. Pt had a A1C and CBC done on 02-27-22. She will do the rest of the labs. Nanci Dorado LPN * Telephone Encounter - Lexii Fowler RN - 03/01/2022 8:03 AM EST Left basic VM for Janey at [facility] to call PCP office for verbal order for patient labs, asordered in note below. Lexii Fowler RN * Telephone Encounter - Clifford England MD - 02/28/2022 6:06 PM EST Okay for to draw fasting labs tomorrow. Do all labs expected by PCP for 02/20/22. * Telephone Encounter - Lexii Fowler RN - 02/28/2022 3:13 PM EST Pt is at home now, receiving [facility] with [facility]. Also, [facility] Nurse Janey called and states she was not able to get enough blood when trying to do blood draw on patient recently. [facility] Nurse asking if okay to draw ordered labs for pt tomorow? Please advise Janey at [phone]. Thank you. * Telephone Encounter - Clifford [...] waiting authorization on her Trulicity medication by [facility]. (See 02/27/22 encounter). She states she is not sure when it will be authorized. Patient states it has been 2 weeks since she has taken her last trulicity injection. Pt asking for PCP team to advise. Pt asking for this message to be sent urgently. Will send message to [facility] provider for review. Thank you. documented in this encounterBerger Hospital01-04-2023 Miscellaneous Notes* Telephone Encounter - Anh [...] Trulicity. * Telephone Encounter - Silvestre Jain APRN.NIKKY - 02/27/2022 2:18 PM EST Please send order to [facility] for the bariatric briefs, also let patient [...] for Bariatric Briefs - Prev[facility]. Going thru [facility]. These work best pulling up past her wound. She is using 2 per day. Nanci Dorado LPN documented in this encounterBerger Hospital01-04-2023 Miscellaneous Notes* Telephone Encounter - Sridevi Isabel LPN - 02/27/2022 2:30 PM EST Order faxed and Joe aware of same. * Telephone Encounter - Silvestre Jain APRN.NIKKY - 02/27/2022 1:51 PM EST Order signed, please let HH know. * Telephone Encounter - Maria Dolores Ivan RN - 02/26/2022 12:28 PM EST Joe with [facility] calls to report that they need a written order for wound care to thighs cleanse the areas daily and apply a Mepilex dressing daily. Order pended with requested directions. Fax order to [phone]. Maria Dolores Ivan RN documented in this encounterBerger Hospital01-04-2023 Miscellaneous Notes* Telephone Encounter - Lexii Fowler RN - 02/27/2022 2:05 PM EST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 dyspnea documented as of this encounter (statuses as of 07/11/2021) [facility] of Past illness Narrative* Problem Noted Date Resolved Date MORBID OBESITY 06/30/2014 Overview: TSH 1.43 in 04-02 Augmentin for LLE cellulitis in 08-01 at [facility]: LLE US negative for a DVT Down to 391 pounds as of 08-24-07 BNP 26 in 09-01 for dyspnea documented as of this encounter (statuses as of 07/17/2021) [facility] of Past illness Narrative* Problem Noted Date Resolved Date MORBID OBESITY 06/30/2014 Overview: TSH 1.43 in - Augmentin for LLE cellulitis in 08-01 at [facility]: LLE US negative for a DVT Down to 391 pounds as of 08-24-07 BNP 26 in 7- for dyspnea documented as of this encounter (statuses as of 07/24/2021) [facility] of Past illness Narrative* Problem Noted Date Resolved Date MORBID OBESITY 06/30/2014 Overview: TSH 1.43 in - Augmentin for LLE cellulitis in 08-01 at [facility]: LLE US negative for a DVT Down to 391 pounds as of 08-24-07 BNP 26 in - for dyspnea documented as of this encounter (statuses as of 07/25/2021) [facility] of Past illness Narrative* Problem Noted Date Resolved Date MORBID OBESITY 06/30/2014 Overview: TSH 1.43 in 2-07 Augmentin for LLE cellulitis in 08-01 at [facility]: LLE US negative for a DVT Down to 391 pounds as of 08-24-07 BNP 26 in 7- for dyspnea documented as of this encounter (statuses as of 07/26/2021) [facility] of [facility] illness Narrative* Problem Noted Date Resolved Date MORBID OBESITY 06/30/2014 Overview: TSH 1.43 in - Augmentin for LLE cellulitis in 08-01 at [facility]: LLE US negative for a DVT Down to 391 pounds as of 08-24-07 BNP 26 in 09-01 for dyspnea documented as of this encounter (statuses as of 07/28/2021) [facility] of Past illness Narrative* Problem Noted Date Resolved Date MORBID OBESITY 06/30/2014 Overview: TSH 1.43 in 2-07 Augmentin for LLE cellulitis in 08-01 at [facility]: LLE US negative for a DVT Down to 391 pounds as of 08-24-07 BNP 26 in - for dyspnea documented as of this encounter (statuses as of 08/01/2021) [facility] of Past illness Narrative* Problem Noted Date Resolved Date MORBID OBESITY 06/30/2014 Overview: TSH 1.43 in 2- Augmentin for LLE cellulitis in 08-01 at [facility]: LLE US negative for a DVT Down to 391 pounds as of 08-24-07 BNP 26 in 7- for dyspnea documented as of this encounter (statuses as of 08/05/2021) [facility] of [facility] illness Narrative* Problem Noted Date Resolved Date MORBID OBESITY 06/30/2014 Overview: TSH 1.43 in 2-07 Augmentin for LLE cellulitis in 08-01 at [facility]: LLE US negative for a DVT Down to 391 pounds as of 08-24-07 BNP 26 in - for dyspnea documented as of this encounter (statuses as of 08/06/2021) [facility] of [facility] illness Narrative* Problem Noted Date Resolved Date MORBID OBESITY 06/30/2014 Overview: TSH 1.43 in 2-07 Augmentin for LLE cellulitis in 08-01 at [facility]: LLE US negative for a DVT Down to 391 pounds as of 08-24-07 BNP 26 in 09-01 for dyspnea documented as of this encounter (statuses as of 08/13/2021) [facility] of [facility] illness Narrative* Problem Noted Date Resolved Date MORBID OBESITY 06/30/2014 Overview: TSH 1.43 in 2- Augmentin for LLE cellulitis in 08-01 at [facility]: LLE US negative for a DVT Down to 391 pounds as of 08-24-07 BNP 26 in 09-01 for dyspnea documented as of this encounter (statuses as of 08/15/2021) [facility] Narrative* Problem Noted Date Resolved Date MORBID OBESITY 06/30/2014 Overview: TSH 1.43 in 2-07 Augmentin for LLE cellulitis in 08-01 at [facility]: LLE US negative for a DVT Down to 391 pounds as of 08-24-07 BNP 26 in 09-01 for dyspnea documented as of this encounter (statuses as of 08/23/2021) [facility] illness Narrative* Problem Noted Date Resolved Date MORBID OBESITY 06/30/2014 Overview: TSH 1.43 in 2- Augmentin for LLE cellulitis in 08-01 at [facility]: LLE US negative for a DVT Down to 391 pounds as of 08-24-07 BNP 26 in - for dyspnea documented as of this encounter (statuses as of 08/27/2021) [facility] of [facility] illness Narrative* Problem Noted Date Resolved Date MORBID OBESITY 06/30/2014 Overview: TSH 1.43 in 2- Augmentin for LLE cellulitis in 08-01 at [facility]: LLE US negative for a DVT Down to 391 pounds as of 08-24-07 BNP 26 in - for dyspnea documented as of this encounter (statuses as of 10/17/2021) [facility] illness Narrative* Problem Noted Date Resolved Date MORBID OBESITY 06/30/2014 Overview: TSH 1.43 in - Augmentin for LLE cellulitis in 08-01 at [facility]: LLE US negative for a DVT Down to 391 pounds as of 08-24-07 BNP 26 in 09-01 for dyspnea documented as of this encounter (statuses as of 02/06/2022) [facility]2015 History of Past illness Narrative* Problem Noted Date Resolved Date MORBID OBESITY 06/30/2014 Overview: TSH 1.43 in 04-02 Augmentin for LLE cellulitis in 08-01 at [facility]: LLE US negative for a DVT Down to 391 pounds as of 08-24-07 BNP 26 in 09-01 for dyspnea documented as of this encounter (statuses as of 02/07/2022) [facility]2015 History of Past illness Narrative* Problem Noted Date Resolved Date MORBID OBESITY 06/30/2014 Overview: TSH 1.43 in - Augmentin for LLE cellulitis in 08-01 at [facility]: LLE US negative for a DVT Down to 391 pounds as of 08-24-07 BNP 26 in 09-01 for dyspnea documented as of this encounter (statuses as of 02/07/2022) [facility] History of Past illness Narrative* Problem Noted Date Resolved Date MORBID OBESITY 06/30/2014 Overview: TSH 1.43 in - Augmentin for LLE cellulitis in 08-01 at [facility]: LLE US negative for a DVT Down to 391 pounds as of 08-24-07 BNP 26 in 7-09 for dyspnea documented as of this encounter (statuses as of 02/11/2022) [facility] History of Past illness Narrative* Problem Noted Date Resolved Date MORBID OBESITY 06/30/2014 Overview: TSH 1.43 in 2- Augmentin for LLE cellulitis in 08-01 at [facility]: LLE US negative for a DVT Down to 391 pounds as of 08-24-07 BNP 26 in 09-01 for dyspnea documented as of this encounter (statuses as of 02/15/2022) [facility] History of Past illness Narrative* Problem Noted Date Resolved Date MORBID OBESITY 06/30/2014 Overview: TSH 1.43 in 2- Augmentin for LLE cellulitis in 08-01 at [facility]: LLE US negative for a DVT Down to 391 pounds as of 08-24-07 BNP 26 in 09-01 for dyspnea documented as of this encounter (statuses as of 02/17/2022) [facility] History of Past illness Narrative* Problem Noted Date Resolved Date MORBID OBESITY 06/30/2014 Overview: TSH 1.43 in - Augmentin for LLE cellulitis in 08-01 at [facility]: LLE US negative for a DVT Down to 391 pounds as of 08-24-07 BNP 26 in 09-01 for dyspnea documented as of this encounter (statuses as of 02/23/2022) [facility] History of Past illness Narrative* Problem Noted Date Resolved Date MORBID OBESITY 06/30/2014 Overview: TSH 1.43 in 2- Augmentin for LLE cellulitis in 08-01 at [facility]: LLE US negative for a DVT Down to 391 pounds as of 08-24-07 BNP 26 in 09-01 for dyspnea documented as of this encounter (statuses as of 02/25/2022) [facility] History of Past illness Narrative* Problem Noted Date Resolved Date MORBID OBESITY 06/30/2014 Overview: TSH 1.43 in 2- Augmentin for LLE cellulitis in 08-01 at [facility]: LLE US negative for a DVT Down to 391 pounds as of 08-24-07 BNP 26 in 7- for dyspnea documented as of this encounter (statuses as of 02/27/2022) [facility] History of Past illness Narrative* Problem Noted Date Resolved Date MORBID OBESITY 06/30/2014 Overview: TSH 1.43 in 04-02 Augmentin for LLE cellulitis in 08-01 at [facility]: LLE US negative for a DVT Down to 391 pounds as of 08-24-07 BNP 26 in 09-01 for dyspnea documented as of this encounter (statuses as of 02/28/2022) [facility] History of Past illness Narrative* Problem Noted Date Resolved Date MORBID OBESITY 06/30/2014 Overview: TSH 1.43 in 04-02 Augmentin for LLE cellulitis in 08-01 at [facility]: LLE US negative for a DVT Down to 391 pounds as of 08-24-07 BNP 26 in 09-01 for dyspnea documented as of this encounter (statuses as of 02/28/2022) [facility] History of Past illness Narrative* Problem Noted Date Resolved Date MORBID OBESITY 06/30/2014 Overview: TSH 1.43 in - Augmentin for LLE cellulitis in 08-01 at [facility]: LLE US negative for a DVT Down to 391 pounds as of 08-24-07 BNP 26 in 7- for dyspnea documented as of this encounter (statuses as of 03/01/2022) [facility] History of Past illness Narrative* Problem Noted Date Resolved Date MORBID OBESITY 06/30/2014 Overview: TSH 1.43 in - Augmentin for LLE cellulitis in 08-01 at [facility]: LLE US negative for a DVT Down to 391 pounds as of 08-24-07 BNP 26 in 7-09 for dyspnea documented as of this encounter (statuses as of 03/01/2022) [facility] History of Past illness Narrative* Problem Noted Date Resolved Date MORBID OBESITY 06/30/2014 Overview: TSH 1.43 in 2- Augmentin for LLE cellulitis in 08-01 at [facility]: LLE US negative for a DVT Down to 391 pounds as of 08-24-07 BNP 26 in 09-01 for dyspnea documented as of this encounter (statuses as of 03/01/2022) [facility] History of Past illness Narrative* Problem Noted Date Resolved Date MORBID OBESITY 06/30/2014 Overview: TSH 1.43 in - Augmentin for LLE cellulitis in 08-01 at [facility]: LLE US negative for a DVT Down to 391 pounds as of 08-24-07 BNP 26 in 09-01 for dyspnea documented as of this encounter (statuses as of 03/01/2022) [facility] History of Past illness Narrative* Problem Noted Date Resolved Date MORBID OBESITY 06/30/2014 Overview: TSH 1.43 in - Augmentin for LLE cellulitis in 08-01 at [facility]: LLE US negative for a DVT Down to 391 pounds as of 08-24-07 BNP 26 in 09-01 for dyspnea documented as of this encounter (statuses as of 03/01/2022) [facility] History of Past illness Narrative* Problem Noted Date Resolved Date MORBID OBESITY 06/30/2014 Overview: TSH 1.43 in 2- Augmentin for LLE cellulitis in 08-01 at [facility]: LLE US negative for a DVT Down to 391 pounds as of 08-24-07 BNP 26 in 09-01 for dyspnea documented as of this encounter (statuses as of 03/04/2022) [facility] History of Past illness Narrative* Problem Noted Date Resolved Date MORBID OBESITY 06/30/2014 Overview: TSH 1.43 in - Augmentin for LLE cellulitis in 08-01 at [facility]: LLE US negative for a DVT Down to 391 pounds as of 08-24-07 BNP 26 in 7- for dyspnea documented as of this encounter (statuses as of 03/04/2022) [facility] History of Past illness Narrative* Problem Noted Date Resolved Date MORBID OBESITY 06/30/2014 Overview: TSH 1.43 in 2- Augmentin for LLE cellulitis in 08-01 at [facility]: LLE US negative for a DVT Down to 391 pounds as of 08-24-07 BNP 26 in 7- for dyspnea documented as of this encounter (statuses as of 03/12/2022) [facility] History of Past illness Narrative* Problem Noted Date Resolved Date MORBID OBESITY 06/30/2014 Overview: TSH 1.43 in 2- Augmentin for LLE cellulitis in 08-01 at [facility]: LLE US negative for a DVT Down to 391 pounds as of 08-24-07 BNP 26 in 09-01 for dyspnea documented as of this encounter (statuses as of 03/12/2022) [facility] History of Past illness Narrative* Problem Noted Date Resolved Date MORBID OBESITY 06/30/2014 Overview: TSH 1.43 in 2- Augmentin for LLE cellulitis in 08-01 at [facility]: LLE US negative for a DVT Down to 391 pounds as of 08-24-07 BNP 26 in - for dyspnea documented as of this encounter (statuses as of 03/14/2022) [facility] History of Past illness Narrative* Problem Noted Date Resolved Date MORBID OBESITY 06/30/2014 Overview: TSH 1.43 in 2- Augmentin for LLE cellulitis in 08-01 at [facility]: LLE US negative for a DVT Down to 391 pounds as of 08-24-07 BNP 26 in 7- for dyspnea documented as of this encounter (statuses as of 03/15/2022) [facility] History of Past illness Narrative* Problem Noted Date Resolved Date MORBID OBESITY 06/30/2014 Overview: TSH 1.43 in 2- Augmentin for LLE cellulitis in 08-01 at [facility]: LLE US negative for a DVT Down to 391 pounds as of 08-24-07 BNP 26 in 7- for dyspnea documented as of this encounter (statuses as of 03/21/2022) [facility] History of Past illness Narrative* Problem Noted Date Resolved Date MORBID OBESITY 06/30/2014 Overview: TSH 1.43 in - Augmentin for LLE cellulitis in 08-01 at [facility]: LLE US negative for a DVT Down to 391 pounds as of 08-24-07 BNP 26 in 7- for dyspnea documented as of this encounter (statuses as of 03/25/2022) [facility] History of Past illness Narrative* Problem Noted Date Resolved Date MORBID OBESITY 06/30/2014 Overview: TSH 1.43 in 04-02 Augmentin for LLE cellulitis in 08-01 at [facility]: LLE US negative for a DVT Down to 391 pounds as of 08-24-07 BNP 26 in 09-01 for dyspnea documented as of this encounter (statuses as of 03/26/2022) [facility] History of Past illness Narrative* Problem Noted Date Resolved Date MORBID OBESITY 06/30/2014 Overview: TSH 1.43 in - Augmentin for LLE cellulitis in 08-01 at [facility]: LLE US negative for a DVT Down to 391 pounds as of 08-24-07 BNP 26 in 7- for dyspnea documented as of this encounter (statuses as of 03/27/2022) [facility] History of Past illness Narrative* Problem Noted Date Resolved Date MORBID OBESITY 06/30/2014 Overview: TSH 1.43 in - Augmentin for LLE cellulitis in 08-01 at [facility]: LLE US negative for a DVT Down to 391 pounds as of 08-24-07 BNP 26 in 7-09 for dyspnea documented as of this encounter (statuses as of 04/02/2022) [facility] History of Past illness Narrative* Problem Noted Date Resolved Date MORBID OBESITY 06/30/2014 Overview: TSH 1.43 in 2-07 Augmentin for LLE cellulitis in 08-01 at [facility]: LLE US negative for a DVT Down to 391 pounds as of 08-24-07 BNP 26 in 7- for dyspnea documented as of this encounter (statuses as of 04/02/2022) [facility] History of Past illness Narrative* Problem Noted Date Resolved Date MORBID OBESITY 06/30/2014 Overview: TSH 1.43 in - Augmentin for LLE cellulitis in 08-01 at [facility]: LLE US negative for a DVT Down to 391 pounds as of 08-24-07 BNP 26 in 09-01 for dyspnea documented as of this encounter (statuses as of 04/04/2022) [facility] History of Past illness Narrative* Problem Noted Date Resolved Date MORBID OBESITY 06/30/2014 Overview: TSH 1.43 in - Augmentin for LLE cellulitis in 08-01 at [facility]: LLE US negative for a DVT Down to 391 pounds as of 08-24-07 BNP 26 in - for dyspnea documented as of this encounter (statuses as of 04/09/2022) [facility] History of Past illness Narrative* Problem Noted Date Resolved Date MORBID OBESITY 06/30/2014 Overview: TSH 1.43 in - Augmentin for LLE cellulitis in 08-01 at [facility]: LLE US negative for a DVT Down to 391 pounds as of 08-24-07 BNP 26 in - for dyspnea documented as of this encounter (statuses as of 04/09/2022) [facility] History of Past illness Narrative* Problem Noted Date Resolved Date MORBID OBESITY 06/30/2014 Overview: TSH 1.43 in 2- Augmentin for LLE cellulitis in 08-01 at [facility]: LLE US negative for a DVT Down to 391 pounds as of 08-24-07 BNP 26 in 7-09 for dyspnea documented as of this encounter (statuses as of 04/09/2022) [facility] History of Past illness Narrative* Problem Noted Date Resolved Date MORBID OBESITY 06/30/2014 Overview: TSH 1.43 in 2-07 Augmentin for LLE cellulitis in 08-01 at [facility]: LLE US negative for a DVT Down to 391 pounds as of 08-24-07 BNP 26 in 7- for dyspnea documented as of this encounter (statuses as of 04/09/2022) [facility] History of Past illness Narrative* Problem Noted Date Resolved Date MORBID OBESITY 06/30/2014 Overview: TSH 1.43 in 2- Augmentin for LLE cellulitis in 08-01 at [facility]: LLE US negative for a DVT Down to 391 pounds as of 08-24-07 BNP 26 in 7- for dyspnea documented as of this encounter (statuses as of 04/10/2022) [facility] History of Past illness Narrative* Problem Noted Date Resolved Date MORBID OBESITY 06/30/2014 Overview: TSH 1.43 in 2-07 Augmentin for LLE cellulitis in 08-01 at [facility]: LLE US negative for a DVT Down to 391 pounds as of 08-24-07 BNP 26 in 7- for dyspnea documented as of this encounter (statuses as of 04/17/2022) [facility] History of Past illness Narrative* Problem Noted Date Resolved Date MORBID OBESITY 06/30/2014 Overview: TSH 1.43 in 2- Augmentin for LLE cellulitis in 08-01 at [facility]: LLE US negative for a DVT Down to 391 pounds as of 08-24-07 BNP 26 in 7-09 for dyspnea documented as of this encounter (statuses as of 04/17/2022) [facility] History of Past illness Narrative* Problem Noted Date Resolved Date MORBID OBESITY 06/30/2014 Overview: TSH 1.43 in 2- Augmentin for LLE cellulitis in 08-01 at [facility]: LLE US negative for a DVT Down to 391 pounds as of 08-24-07 BNP 26 in 09-01 for dyspnea documented as of this encounter (statuses as of 04/24/2022) [facility] History of Past illness Narrative* Problem Noted Date Resolved Date MORBID OBESITY 06/30/2014 Overview: TSH 1.43 in - Augmentin for LLE cellulitis in 08-01 at [facility]: LLE US negative for a DVT Down to 391 pounds as of 08-24-07 BNP 26 in 09-01 for dyspnea documented as of this encounter (statuses as of 04/26/2022) [facility] History of Past illness Narrative* Problem Noted Date Resolved Date MORBID OBESITY 06/30/2014 Overview: TSH 1.43 in - Augmentin for LLE cellulitis in 08-01 at [facility]: LLE US negative for a DVT Down to 391 pounds as of 08-24-07 BNP 26 in 09-01 for dyspnea documented as of this encounter (statuses as of 05/03/2022) [facility] History of Past illness Narrative* Problem Noted Date Resolved Date MORBID OBESITY 06/30/2014 Overview: TSH 1.43 in - Augmentin for LLE cellulitis in 08-01 at [facility]: LLE US negative for a DVT Down to 391 pounds as of 08-24-07 BNP 26 in 09-01 for dyspnea documented as of this encounter (statuses as of 05/07/2022) [facility] History of Past illness Narrative* Problem Noted Date Resolved Date MORBID OBESITY 06/30/2014 Overview: TSH 1.43 in 2- Augmentin for LLE cellulitis in - at [facility]: LLE US negative for a DVT Down to 391 pounds as of 08-24-07 BNP 26 in 7- for dyspnea documented as of this encounter (statuses as of 05/08/2022) [facility] History of Past illness Narrative* Problem Noted Date Resolved Date MORBID OBESITY 06/30/2014 Overview: TSH 1.43 in 2- Augmentin for LLE cellulitis in 08-01 at [facility]: LLE US negative for a DVT Down to 391 pounds as of 08-24-07 BNP 26 in 7- for dyspnea documented as of this encounter (statuses as of 05/09/2022) [facility] History of Past illness Narrative* Problem Noted Date Resolved Date MORBID OBESITY 06/30/2014 Overview: TSH 1.43 in - Augmentin for LLE cellulitis in 08-01 at [facility]: LLE US negative for a DVT Down to 391 pounds as of 08-24-07 BNP 26 in 09-01 for dyspnea documented as of this encounter (statuses as of 05/13/2022) [facility] History of Past illness Narrative* Problem Noted Date Resolved Date MORBID OBESITY 06/30/2014 Overview: TSH 1.43 in 2- Augmentin for LLE cellulitis in 08-01 at [facility]: LLE US negative for a DVT Down to 391 pounds as of 08-24-07 BNP 26 in 7- for dyspnea documented as of this encounter (statuses as of 05/15/2022) [facility] History of Past illness Narrative* Problem Noted Date Resolved Date MORBID OBESITY 06/30/2014 Overview: TSH 1.43 in 2- Augmentin for LLE cellulitis in 08-01 at [facility]: LLE US negative for a DVT Down to 391 pounds as of 08-24-07 BNP 26 in 7- for dyspnea documented as of this encounter (statuses as of 05/17/2022) [facility] History of Past illness Narrative* Problem Noted Date Resolved Date MORBID OBESITY 06/30/2014 Overview: TSH 1.43 in 2- Augmentin for LLE cellulitis in 08-01 at [facility]: LLE US negative for a DVT Down to 391 pounds as of 08-24-07 BNP 26 in 7- for dyspnea documented as of this encounter (statuses as of 05/17/2022) [facility] History of Past illness Narrative* Problem Noted Date Resolved Date MORBID OBESITY 06/30/2014 Overview: TSH 1.43 in - Augmentin for LLE cellulitis in 08-01 at [facility]: LLE US negative for a DVT Down to 391 pounds as of 08-24-07 BNP 26 in - for dyspnea documented as of this encounter (statuses as of 05/21/2022) [facility] History of Past illness Narrative* Problem Noted Date Resolved Date MORBID OBESITY 06/30/2014 Overview: TSH 1.43 in - Augmentin for LLE cellulitis in 08-01 at [facility]: LLE US negative for a DVT Down to 391 pounds as of 08-24-07 BNP 26 in 09-01 for dyspnea documented as of this encounter (statuses as of 05/21/2022) [facility] History of Past illness Narrative* Problem Noted Date Resolved Date MORBID OBESITY 06/30/2014 Overview: TSH 1.43 in 2- Augmentin for LLE cellulitis in 08-01 at [facility]: LLE US negative for a DVT Down to 391 pounds as of 08-24-07 BNP 26 in - for dyspnea documented as of this encounter (statuses as of 05/29/2022) [facility] History of Past illness Narrative* Problem Noted Date Resolved Date MORBID OBESITY 06/30/2014 Overview: TSH 1.43 in - Augmentin for LLE cellulitis in 08-01 at [facility]: LLE US negative for a DVT Down to 391 pounds as of 08-24-07 BNP 26 in 7- for dyspnea documented as of this encounter (statuses as of 05/31/2022) [facility] History of Past illness Narrative* Problem Noted Date Resolved Date MORBID OBESITY 06/30/2014 Overview: TSH 1.43 in 2-07 Augmentin for LLE cellulitis in 08-01 at [facility]: LLE US negative for a DVT Down to 391 pounds as of 08-24-07 BNP 26 in 7- for dyspnea documented as of this encounter (statuses as of 05/31/2022) [facility] History of Past illness Narrative* Problem Noted Date Resolved Date MORBID OBESITY 06/30/2014 Overview: TSH 1.43 in - Augmentin for LLE cellulitis in 08-01 at [facility]: LLE US negative for a DVT Down to 391 pounds as of 08-24-07 BNP 26 in 09-01 for dyspnea documented as of this encounter (statuses as of 05/31/2022) [facility] History of Past illness Narrative* Problem Noted Date Resolved Date MORBID OBESITY 06/30/2014 Overview: TSH 1.43 in - Augmentin for LLE cellulitis in 08-01 at [facility]: LLE US negative for a DVT Down to 391 pounds as of 08-24-07 BNP 26 in 09-01 for dyspnea documented as of this encounter (statuses as of 06/04/2022) [facility] History of Past illness Narrative* Problem Noted Date Resolved Date MORBID OBESITY 06/30/2014 Overview: TSH 1.43 in - Augmentin for LLE cellulitis in 08-01 at [facility]: LLE US negative for a DVT Down to 391 pounds as of 08-24-07 BNP 26 in 7- for dyspnea documented as of this encounter (statuses as of 06/04/2022) [facility] History of Past illness Narrative* Problem Noted Date Resolved Date MORBID OBESITY 06/30/2014 Overview: TSH 1.43 in - Augmentin for LLE cellulitis in 08-01 at [facility]: LLE US negative for a DVT Down to 391 pounds as of 08-24-07 BNP 26 in 7- for dyspnea documented as of this encounter (statuses as of 06/08/2022) [facility] History of Past illness Narrative* Problem Noted Date Resolved Date MORBID OBESITY 06/30/2014 Overview: TSH 1.43 in 2-07 Augmentin for LLE cellulitis in 08-01 at [facility]: LLE US negative for a DVT Down to 391 pounds as of 08-24-07 BNP 26 in 7- for dyspnea documented as of this encounter (statuses as of 06/20/2022) [facility] History of Past illness Narrative* Problem Noted Date Resolved Date MORBID OBESITY 06/30/2014 Overview: TSH 1.43 in 2- Augmentin for LLE cellulitis in 08-01 at [facility]: LLE US negative for a DVT Down to 391 pounds as of 08-24-07 BNP 26 in 09-01 for dyspnea documented as of this encounter (statuses as of 06/25/2022) [facility] History of Past illness Narrative* Problem Noted Date Resolved Date MORBID OBESITY 06/30/2014 Overview: TSH 1.43 in 2- Augmentin for LLE cellulitis in 08-01 at [facility]: LLE US negative for a DVT Down to 391 pounds as of 08-24-07 BNP 26 in - for dyspnea documented as of this encounter (statuses as of 06/27/2022) [facility] History of Past illness Narrative* Problem Noted Date Resolved Date MORBID OBESITY 06/30/2014 Overview: TSH 1.43 in 2- Augmentin for LLE cellulitis in 08-01 at [facility]: LLE US negative for a DVT Down to 391 pounds as of 08-24-07 BNP 26 in 7- for dyspnea documented as of this encounter (statuses as of 06/27/2022) [facility] History of Past illness Narrative* Problem Noted Date Resolved Date MORBID OBESITY 06/30/2014 Overview: TSH 1.43 in 2- Augmentin for LLE cellulitis in 08-01 at [facility]: LLE US negative for a DVT Down to 391 pounds as of 08-24-07 BNP 26 in - for dyspnea documented as of this encounter (statuses as of 06/28/2022) [facility] History of Past illness Narrative* Problem Noted Date Resolved Date MORBID OBESITY 06/30/2014 Overview: TSH 1.43 in - Augmentin for LLE cellulitis in 08-01 at [facility]: LLE US negative for a DVT Down to 391 pounds as of 08-24-07 BNP 26 in 09-01 for dyspnea documented as of this encounter (statuses as of 07/06/2022) [facility] History of Past illness Narrative* Problem Noted Date Resolved Date MORBID OBESITY 06/30/2014 Overview: TSH 1.43 in 04-02 Augmentin for LLE cellulitis in 08-01 at [facility]: LLE US negative for a DVT Down to 391 pounds as of 08-24-07 BNP 26 in 09-01 for dyspnea documented as of this encounter (statuses as of 07/25/2022) [facility] History of Past illness Narrative* Problem Noted Date Resolved Date MORBID OBESITY 06/30/2014 Overview: TSH 1.43 in - Augmentin for LLE cellulitis in 08-01 at [facility]: LLE US negative for a DVT Down to 391 pounds as of 08-24-07 BNP 26 in 09-01 for dyspnea documented as of this encounter (statuses as of 07/29/2022) [facility] History of Past illness Narrative* Problem Noted Date Resolved Date MORBID OBESITY 06/30/2014 Overview: TSH 1.43 in - Augmentin for LLE cellulitis in 08-01 at [facility]: LLE US negative for a DVT Down to 391 pounds as of 08-24-07 BNP 26 in - for dyspnea documented as of this encounter (statuses as of 08/01/2022) [facility] History of Past illness Narrative* Problem Noted Date Resolved Date MORBID OBESITY 06/30/2014 Overview: TSH 1.43 in 2-07 Augmentin for LLE cellulitis in 08-01 at [facility]: LLE US negative for a DVT Down to 391 pounds as of 08-24-07 BNP 26 in 09-01 for dyspnea documented as of this encounter (statuses as of 08/07/2022) [facility] History of Past illness Narrative* Problem Noted Date Resolved Date MORBID OBESITY 06/30/2014 Overview: TSH 1.43 in - Augmentin for LLE cellulitis in 08-01 at [facility]: LLE US negative for a DVT Down to 391 pounds as of 08-24-07 BNP 26 in 09-01 for dyspnea documented as of this encounter (statuses as of 08/12/2022) [facility] History of Past illness Narrative* Problem Noted Date Resolved Date MORBID OBESITY 06/30/2014 Overview: TSH 1.43 in - Augmentin for LLE cellulitis in 08-01 [facility] [facility]: LLE US negative for a DVT Down to 391 pounds as of 08-24-07 BNP 26 in 09-01 for dyspnea documented as of this encounter (statuses as of 08/13/2022) [facility] History of Past illness Narrative* Problem Noted Date Resolved Date MORBID OBESITY 06/30/2014 Overview: TSH 1.43 in - Augmentin for LLE cellulitis in 08-01 at [facility]: LLE US negative for a DVT Down to 391 pounds as of 08-24-07 BNP 26 in 09-01 for dyspnea documented as of this encounter (statuses as of 08/23/2022) [facility] History of Past illness Narrative* Problem Noted Date Resolved Date MORBID OBESITY 06/30/2014 Overview: TSH 1.43 in 2- Augmentin for LLE cellulitis in 08-01 at [facility]: LLE US negative for a DVT Down to 391 pounds as of 08-24-07 BNP 26 in - for dyspnea documented as of this encounter (statuses as of 08/23/2022) [facility] History of Past illness Narrative* Problem Noted Date Resolved Date MORBID OBESITY 06/30/2014 Overview: TSH 1.43 in 2- Augmentin for LLE cellulitis in 08-01 at [facility]: LLE US negative for a DVT Down to 391 pounds as of 08-24-07 BNP 26 in 09-01 for dyspnea documented as of this encounter (statuses as of 08/24/2022) [facility] History of Past illness Narrative* Problem Noted Date Resolved Date MORBID OBESITY 06/30/2014 Overview: TSH 1.43 in 2- Augmentin for LLE cellulitis in 08-01 at [facility]: LLE US negative for a DVT Down to 391 pounds as of 08-24-07 BNP 26 in 09-01 for dyspnea documented as of this encounter (statuses as of 08/27/2022) [facility] History of Past illness Narrative* Problem Noted Date Diagnosed Date Resolved Date MORBID OBESITY 06/30/2014 Overview: TSH 1.43 in 2-07 Augmentin for LLE cellulitis in 08-01 at [facility]: LLE US negative for a DVT Down to 391 pounds as of 08-24-07 BNP 26 in 09-01 for dyspnea documented as of this encounter (statuses as of 09/01/2022) [facility] History of Past illness Narrative* Problem Noted Date Diagnosed Date Resolved Date MORBID OBESITY 06/30/2014 Overview: TSH 1.43 in 2- Augmentin for LLE cellulitis in 08-01 at [facility]: LLE US negative for a DVT Down to 391 pounds as of 08-24-07 BNP 26 in - for dyspnea documented as of this encounter (statuses as of 09/02/2022) [facility] History of Past illness Narrative* Problem Noted Date Diagnosed Date Resolved Date MORBID OBESITY 06/30/2014 Overview: TSH 1.43 in 2- Augmentin for LLE cellulitis in 08-01 at [facility]: LLE US negative for a DVT Down to 391 pounds as of 08-24-07 BNP 26 in 7- for dyspnea documented as of this encounter (statuses as of 09/04/2022) [facility] History of Past illness Narrative* Problem Noted Date Diagnosed Date Resolved Date MORBID OBESITY 06/30/2014 Overview: TSH 1.43 in - Augmentin for LLE cellulitis in 08-01 at [facility]: LLE US negative for a DVT Down to 391 pounds as of 08-24-07 BNP 26 in 09-01 for dyspnea documented as of this encounter (statuses as of 09/05/2022) [facility] History of Past illness Narrative* Problem Noted Date Diagnosed Date Resolved Date MORBID OBESITY 06/30/2014 Overview: TSH 1.43 in - Augmentin for LLE cellulitis in 08-01 at [facility]: LLE US negative for a DVT Down to 391 pounds as of 08-24-07 BNP 26 in 09-01 for dyspnea documented as of this encounter (statuses as of 09/06/2022) [facility] History of Past illness Narrative* Problem Noted Date Diagnosed Date Resolved Date MORBID OBESITY 06/30/2014 Overview: TSH 1.43 in - Augmentin for LLE cellulitis in 08-01 at [facility]: LLE US negative for a DVT Down to 391 pounds as of 08-24-07 BNP 26 in 09-01 for dyspnea documented as of this encounter (statuses as of 09/06/2022) [facility] History of Past illness Narrative* Problem Noted Date Diagnosed Date Resolved Date MORBID OBESITY 06/30/2014 Overview: TSH 1.43 in - Augmentin for LLE cellulitis in 08-01 at [facility]: LLE US negative for a DVT Down to 391 pounds as of 08-24-07 BNP 26 in 09-01 for dyspnea documented as of this encounter (statuses as of 09/19/2022) [facility] History of Past illness Narrative* Problem Noted Date Diagnosed Date Resolved Date MORBID OBESITY 06/30/2014 Overview: TSH 1.43 in 2- Augmentin for LLE cellulitis in 08-01 at [facility]: LLE US negative for a DVT Down to 391 pounds as of 08-24-07 BNP 26 in 09-01 for dyspnea documented as of this encounter (statuses as of 09/20/2022) [facility] History of Past illness Narrative* Problem Noted Date Diagnosed Date Resolved Date MORBID OBESITY 06/30/2014 Overview: TSH 1.43 in 2- Augmentin for LLE cellulitis in 08-01 at [facility]: LLE US negative for a DVT Down to 391 pounds as of 08-24-07 BNP 26 in 09-01 for dyspnea documented as of this encounter (statuses as of 09/23/2022) [facility] History of Past illness Narrative* Problem Noted Date Diagnosed Date Resolved Date MORBID OBESITY 06/30/2014 Overview: TSH 1.43 in 2- Augmentin for LLE cellulitis in 08-01 at [facility]: LLE US negative for a DVT Down to 391 pounds as of 08-24-07 BNP 26 in 09-01 for dyspnea documented as of this encounter (statuses as of 09/23/2022) [facility] History of Past illness Narrative* Problem Noted Date Diagnosed Date Resolved Date MORBID OBESITY 06/30/2014 Overview: TSH 1.43 in 2- Augmentin for LLE cellulitis in 08-01 at [facility]: LLE US negative for a DVT Down to 391 pounds as of 08-24-07 BNP 26 in 09-01 for dyspnea documented as of this encounter (statuses as of 09/25/2022) [facility] History of Past illness Narrative* Problem Noted Date Diagnosed Date Resolved Date MORBID OBESITY 06/30/2014 Overview: TSH 1.43 in 2- Augmentin for LLE cellulitis in 08-01 at [facility]: LLE US negative for a DVT Down to 391 pounds as of 08-24-07 BNP 26 in 09-01 for dyspnea documented as of this encounter (statuses as of 10/05/2022) [facility] History of Past illness Narrative* Problem Noted Date Diagnosed Date Resolved Date MORBID OBESITY 06/30/2014 Overview: TSH 1.43 in - Augmentin for LLE cellulitis in 08-01 at [facility]: LLE US negative for a DVT Down to 391 pounds as of 08-24-07 BNP 26 in 09-01 for dyspnea documented as of this encounter (statuses as of 10/24/2022) [facility] History of Past illness Narrative* Problem Noted Date Diagnosed Date Resolved Date MORBID OBESITY 06/30/2014 Overview: TSH 1.43 in - Augmentin for LLE cellulitis in 08-01 at [facility]: LLE US negative for a DVT Down to 391 pounds as of 08-24-07 BNP 26 in 09-01 for dyspnea documented as of this encounter (statuses as of 10/26/2022) [facility] History of Past illness Narrative* Problem Noted Date Diagnosed Date Resolved Date MORBID OBESITY 06/30/2014 Overview: TSH 1.43 in - Augmentin for LLE cellulitis in 08-01 at [facility]: LLE US negative for a DVT Down to 391 pounds as of 08-24-07 BNP 26 in 09-01 for dyspnea documented as of this encounter (statuses as of 11/02/2022) [facility] History of Past illness Narrative* Problem Noted Date Diagnosed Date Resolved Date MORBID OBESITY 06/30/2014 Overview: TSH 1.43 in - Augmentin for LLE cellulitis in - at [facility]: LLE US negative for a DVT Down to 391 pounds as of 08-24-07 BNP 26 in 09-01 for dyspnea documented as of this encounter (statuses as of 11/06/2022) [facility] History of Past illness Narrative* Problem Noted Date Diagnosed Date Resolved Date MORBID OBESITY 06/30/2014 Overview: TSH 1.43 in 2- Augmentin for LLE cellulitis in 08-01 at [facility]: LLE US negative for a DVT Down to 391 pounds as of 08-24-07 BNP 26 in 09-01 for dyspnea documented as of this encounter (statuses as of 11/13/2022) [facility] History of Past illness Narrative* Problem Noted Date Diagnosed Date Resolved Date MORBID OBESITY 06/30/2014 Overview: TSH 1.43 in 2- Augmentin for LLE cellulitis in 08-01 at [facility]: LLE US negative for a DVT Down to 391 pounds as of 08-24-07 BNP 26 in 09-01 for dyspnea documented as of this encounter (statuses as of 11/16/2022) [facility] History of Past illness Narrative* Problem Noted Date Diagnosed Date Resolved Date MORBID OBESITY 06/30/2014 Overview: TSH 1.43 in 2- Augmentin for LLE cellulitis in 08-01 at [facility]: LLE US negative for a DVT Down to 391 pounds as of 08-24-07 BNP 26 in 09-01 for dyspnea documented as of this encounter (statuses as of 11/19/2022) [facility] History of Past illness Narrative* Problem Noted Date Diagnosed Date Resolved Date MORBID OBESITY 06/30/2014 Overview: TSH 1.43 in 2- Augmentin for LLE cellulitis in - at [facility]: LLE US negative for a DVT Down to 391 pounds as of 08-24-07 BNP 26 in 09-01 for dyspnea documented as of this encounter (statuses as of 11/20/2022) [facility] History of Past illness Narrative* Problem Noted Date Diagnosed Date Resolved Date MORBID OBESITY 06/30/2014 Overview: TSH 1.43 in 2- Augmentin for LLE cellulitis in 08-01 at [facility]: LLE US negative for a DVT Down to 391 pounds as of 08-24-07 BNP 26 in 7- for dyspnea documented as of this encounter (statuses as of 12/05/2022) [facility] History of Past illness Narrative* Problem Noted Date Diagnosed Date Resolved Date MORBID OBESITY 06/30/2014 Overview: TSH 1.43 in - Augmentin for LLE cellulitis in 08-01 at [facility]: LLE US negative for a DVT Down to 391 pounds as of 08-24-07 BNP 26 in 09-01 for dyspnea documented as of this encounter (statuses as of 12/05/2022) [facility] History of Past illness Narrative* Problem Noted Date Diagnosed Date Resolved Date MORBID OBESITY 06/30/2014 Overview: TSH 1.43 in 04-02 Augmentin for LLE cellulitis in 08-01 at [facility]: LLE US negative for a DVT Down to 391 pounds as of 08-24-07 BNP 26 in 09-01 for dyspnea documented as of this encounter (statuses as of 12/06/2022) [facility] History of Past illness Narrative* Problem Noted Date Diagnosed Date Resolved Date MORBID OBESITY 06/30/2014 Overview: TSH 1.43 in - Augmentin for LLE cellulitis in 08-01 at [facility]: LLE US negative for a DVT Down to 391 pounds as of 08-24-07 BNP 26 in 7- for dyspnea documented as of this encounter (statuses as of 12/06/2022) [facility] History of Past illness Narrative* Problem Noted Date Diagnosed Date Resolved Date MORBID OBESITY 06/30/2014 Overview: TSH 1.43 in - Augmentin for LLE cellulitis in 08-01 at [facility]: LLE US negative for a DVT Down to 391 pounds as of 08-24-07 BNP 26 in 7- for dyspnea documented as of this encounter (statuses as of 12/31/2022) [facility] History of Past illness Narrative* Problem Noted Date Diagnosed Date Resolved Date MORBID OBESITY 06/30/2014 Overview: TSH 1.43 in 2-07 Augmentin for LLE cellulitis in 08-01 at [facility]: LLE US negative for a DVT Down to 391 pounds as of 08-24-07 BNP 26 in - for dyspnea documented as of this encounter (statuses as of 01/02/2023) [facility] History of Past illness Narrative* Problem Noted Date Diagnosed Date Resolved Date MORBID OBESITY 06/30/2014 Overview: TSH 1.43 in - Augmentin for LLE cellulitis in 08-01 at [facility]: LLE US negative for a DVT Down to 391 pounds as of 08-24-07 BNP 26 in 09-01 for dyspnea documented as of this encounter (statuses as of 01/14/2023) [facility] History of Past illness Narrative* Problem Noted Date Diagnosed Date Resolved Date MORBID OBESITY 06/30/2014 Overview: TSH 1.43 in 2- Augmentin for LLE cellulitis in 08-01 at [facility]: LLE US negative for a DVT Down to 391 pounds as of 08-24-07 BNP 26 in 09-01 for dyspnea documented as of this encounter (statuses as of 01/28/2023) [facility] History of Past illness Narrative* Problem Noted Date Diagnosed Date Resolved Date MORBID OBESITY 06/30/2014 Overview: TSH 1.43 in 2- Augmentin for LLE cellulitis in 08-01 at [facility]: LLE US negative for a DVT Down to 391 pounds as of 08-24-07 BNP 26 in 7- for dyspnea documented as of this encounter (statuses as of 01/29/2023) [facility] History of Past illness Narrative* Problem Noted Date Diagnosed Date Resolved Date MORBID OBESITY 06/30/2014 Overview: TSH 1.43 in 2- Augmentin for LLE cellulitis in 08-01 at [facility]: LLE US negative for a DVT Down to 391 pounds as of 08-24-07 BNP 26 in 7- for dyspnea documented as of this encounter (statuses as of 01/30/2023) [facility] History of Past illness Narrative* Problem Noted Date Diagnosed Date Resolved Date MORBID OBESITY 06/30/2014 Overview: TSH 1.43 in - Augmentin for LLE cellulitis in 08-01 at [facility]: LLE US negative for a DVT Down to 391 pounds as of 08-24-07 BNP 26 in 7- for dyspnea documented as of this encounter (statuses as of 04/02/2023) [facility] History of Past illness Narrative* Problem Noted Date Diagnosed Date Resolved Date MORBID OBESITY 06/30/2014 Overview: TSH 1.43 in - Augmentin for LLE cellulitis in 08-01 at [facility]: LLE US negative for a DVT Down to 391 pounds as of 08-24-07 BNP 26 in - for dyspnea documented as of this encounter (statuses as of 04/11/2023) [facility] History of Past illness Narrative* Problem Noted Date Diagnosed Date Resolved Date MORBID OBESITY 06/30/2014 Overview: TSH 1.43 in 2- Augmentin for LLE cellulitis in 08-01 at [facility]: LLE US negative for a DVT Down to 391 pounds as of 08-24-07 BNP 26 in 7- for dyspnea documented as of this encounter (statuses as of 04/14/2023) [facility] History of Past illness Narrative* Problem Noted Date Diagnosed Date Resolved Date MORBID OBESITY 06/30/2014 Overview: TSH 1.43 in 2- Augmentin for LLE cellulitis in 08-01 at [facility]: LLE US negative for a DVT Down to 391 pounds as of 08-24-07 BNP 26 in 7-09 for dyspnea documented as of this encounter (statuses as of 04/16/2023) [place] [id number] History of Past illness Narrative* Problem Noted Date Diagnosed Date Resolved Date MORBID OBESITY 06/30/2014 Overview: TSH 1.43 in 2- Augmentin for LLE cellulitis in 08-01 at [facility]: LLE US negative for a DVT Down to 391 pounds as of 08-24-07 BNP 26 in 7-09 for dyspnea documented as of this encounter (statuses as of 04/16/2023) [facility] History of Past illness Narrative* Problem Noted Date Diagnosed Date Resolved Date MORBID OBESITY 06/30/2014 Overview: TSH 1.43 in - Augmentin for LLE cellulitis in 08-01 at [facility]: LLE US negative for a DVT Down to 391 pounds as of 08-24-07 BNP 26 in - for dyspnea documented as of this encounter (statuses as of 04/24/2023) [facility] History of Past illness Narrative* Problem Noted Date Diagnosed Date Resolved Date MORBID OBESITY 06/30/2014 Overview: TSH 1.43 in - Augmentin for LLE cellulitis in 08-01 at [facility]: LLE US negative for a DVT Down to 391 pounds as of 08-24-07 BNP 26 in 7-09 for dyspnea documented as of this encounter (statuses as of 04/25/2023) [facility] History of Past illness Narrative* Problem Noted Date Diagnosed Date Resolved Date MORBID OBESITY 06/30/2014 Overview: TSH 1.43 in 2- Augmentin for LLE cellulitis in 08-01 at [facility]: LLE US negative for a DVT Down to 391 pounds as of 08-24-07 BNP 26 in 7-09 for dyspnea documented as of this encounter (statuses as of 05/05/2023) [facility] History of Past illness Narrative* Problem Noted Date Diagnosed Date Resolved Date MORBID OBESITY 06/30/2014 Overview: TSH 1.43 in 2- Augmentin for LLE cellulitis in 08-01 at [facility]: LLE US negative for a DVT Down to 391 pounds as of 08-24-07 BNP 26 in 7-09 for dyspnea documented as of this encounter (statuses as of 05/07/2023) [facility] History of Past illness Narrative* Problem Noted Date Diagnosed Date Resolved Date MORBID OBESITY 06/30/2014 Overview: TSH 1.43 in 2-07 Augmentin for LLE cellulitis in 08-01 at [facility]: LLE US negative for a DVT Down to 391 pounds as of 08-24-07 BNP 26 in 7- for dyspnea documented as of this encounter (statuses as of 05/08/2023) [facility] History of Past illness Narrative* Problem Noted Date Diagnosed Date Resolved Date MORBID OBESITY 06/30/2014 Overview: TSH 1.43 in 2- Augmentin for LLE cellulitis in 08-01 at [facility]: LLE US negative for a DVT Down to 391 pounds as of 08-24-07 BNP 26 in 7- for dyspnea documented as of this encounter (statuses as of 05/12/2023) [facility] History of Past illness Narrative* Problem Noted Date Diagnosed Date Resolved Date MORBID OBESITY 06/30/2014 Overview: TSH 1.43 in 2- Augmentin for LLE cellulitis in 08-01 at [facility]: LLE US negative for a DVT Down to 391 pounds as of 08-24-07 BNP 26 in 7- for dyspnea documented as of this encounter (statuses as of 05/13/2023) [facility] History of Past illness Narrative* Problem Noted Date Diagnosed Date Resolved Date MORBID OBESITY 06/30/2014 Overview: TSH 1.43 in 2- Augmentin for LLE cellulitis in 08-01 at [facility]: LLE US negative for a DVT Down to 391 pounds as of 08-24-07 BNP 26 in 7-09 for dyspnea documented as of this encounter (statuses as of 05/14/2023) [facility] History of Past illness Narrative* Problem Noted Date Diagnosed Date Resolved Date MORBID OBESITY 06/30/2014 Overview: TSH 1.43 in 2-07 Augmentin for LLE cellulitis in 08-01 at [facility]: LLE US negative for a DVT Down to 391 pounds as of 08-24-07 BNP 26 in - for dyspnea documented as of this encounter (statuses as of 05/15/2023) [facility] History of Past illness Narrative* Problem Noted Date Diagnosed Date Resolved Date MORBID OBESITY 06/30/2014 Overview: TSH 1.43 in - Augmentin for LLE cellulitis in 08-01 at [facility]: LLE US negative for a DVT Down to 391 pounds as of 08-24-07 BNP 26 in 09-01 for dyspnea documented as of this encounter (statuses as of 05/16/2023) [facility] History of Past illness Narrative* Problem Noted Date Diagnosed Date Resolved Date MORBID OBESITY 06/30/2014 Overview: TSH 1.43 in - Augmentin for LLE cellulitis in 08-01 at [facility]: LLE US negative for a DVT Down to 391 pounds as of 08-24-07 BNP 26 in 09-01 for dyspnea documented as of this encounter (statuses as of 05/19/2023) [facility] History of Past illness Narrative* Problem Noted Date Diagnosed Date Resolved Date MORBID OBESITY 06/30/2014 Overview: TSH 1.43 in 2- Augmentin for LLE cellulitis in 08-01 at [facility]: LLE US negative for a DVT Down to 391 pounds as of 08-24-07 BNP 26 in 09-01 for dyspnea documented as of this encounter (statuses as of 05/19/2023) [facility] History of Past illness Narrative* Problem Noted Date Diagnosed Date Resolved Date MORBID OBESITY 06/30/2014 Overview: TSH 1.43 in 2- Augmentin for LLE cellulitis in 08-01 at [facility]: LLE US negative for a DVT Down to 391 pounds as of 08-24-07 BNP 26 in - for dyspnea documented as of this encounter (statuses as of 05/20/2023) [facility] History of Past illness Narrative* Problem Noted Date Diagnosed Date Resolved Date MORBID OBESITY 06/30/2014 Overview: TSH 1.43 in 04-02 Augmentin for LLE cellulitis in 08-01 at [facility]: LLE US negative for a DVT Down to 391 pounds as of 08-24-07 BNP 26 in 09-01 for dyspnea documented as of this encounter (statuses as of 05/27/2023) [facility] History of Past illness Narrative* Problem Noted Date Diagnosed Date Resolved Date MORBID OBESITY 06/30/2014 Overview: TSH 1.43 in 2- Augmentin for LLE cellulitis in 08-01 at [facility]: LLE US negative for a DVT Down to 391 pounds as of 08-24-07 BNP 26 in 09-01 for dyspnea documented as of this encounter (statuses as of 06/05/2023) [facility] History of Past illness Narrative* Problem Noted Date Diagnosed Date Resolved Date MORBID OBESITY 06/30/2014 Overview: TSH 1.43 in - Augmentin for LLE cellulitis in 08-01 at [facility]: LLE US negative for a DVT Down to 391 pounds as of 08-24-07 BNP 26 in 09-01 for dyspnea documented as of this encounter (statuses as of 06/05/2023) [facility] August 19, 2022 4:06pm Note Date/Time August 19, 2022 3:28 pm [facility] Medical Records Department [address] [place] [address] Instructions for Home/Discharge Instructions 08/19/22 1525 MR#: [id number] Acct: [id number] Name: MEGGAN ARITA Rep #:[id number] 2 : 1960 61 From: Jim Pizarro [...] PO Q4H PRN PRN (Reason: Fever, pain 1-12/03) Qty: 0 0RF ondansetron HCl 4 mg tablet 4 mg PO PRN PRN (Reason: Nausea) Discontinued furosemide [Lasix] 40 mg tablet 40 mg PO DAILY Qty: 1 0RF Rx Instructions: start on 11/23/21 Referrals / Follow Up: Erica Cannon MD [Primary Care Provider] - See Referral Note (On Friday of this week, you will need a BMP drawn) Disposition Disposition (needs filled in before D/C Order can be placed): Home, Self Care 08/19/22 1606<Electronically signed by Jim Pizarro DO>Jim Pizarro DO CC: Dr. Winter Hamm MD; Dr. Ammy Agarwal MD; Dr. Sam Perez MD;Dr. Erica Cannon MD; Dr. Lisa Mendoza MD; Dr. Raysa Knox MD ~ Signed [facility] Work Phone: Evaluation + Plan note No data available for this section [facility] Evaluation note* Diagnosis Encounter for long-term current use of medication- Primary Anxiety state Anxiety state, unspecified Primary osteoarthritis of both knees Primary localized osteoarthrosis, lower leg Diabetes with skin complication (HCC) Other specified disorder of skin [facility] Diagnosis Leg cramp Cramp of limb Muscle spasm Spasm of muscle [facility] Diagnosis Anxiety state Anxiety state, unspecified [facility] encounter [facility]* Diagnosis Morbid obesity (HCC)- Primary Morbid [...] osteoarthrosis, lower leg documented in this encounter [facility] note* Diagnosis No-show for appointment- Primary documented in this encounter [facility] note* Diagnosis Peripheral vascular disease, unspecified (HCC)- Primary Peripheral vascular disease, unspecified documented in this encounter [facility] note* Diagnosis Asthma, mild intermittent, well-controlled- Primary Unspecified asthma documented in this encounter [facility] note* Diagnosis Pain in both knees, unspecified chronicity- Primary documented in this encounter [facility] note* Diagnosis QUEEN (dyspnea on exertion) Other dyspnea and respiratory abnormality documented in this encounter [facility] note* Diagnosis Onset Date Resolution Status Weakness acute [facility] Work Phone: Evaluation note* Diagnosis Iron deficiency anemia, unspecified iron deficiency anemia type- Primary documented in this encounter [facility] note* Diagnosis Insomnia, unspecified type- Primary Current moderate episode of major depressive disorder, unspecified whether recurrent (HCC) Primary osteoarthritis of both knees Primary localized osteoarthrosis, lower leg Anxiety state Anxiety state, unspecified Morbid obesity (HCC) Morbid obesity Type 2 diabetes (HCC) Iron deficiency anemia, unspecified iron deficiency anemia type [facility]* Diagnosis Iron deficiency anemia, unspecified iron deficiency anemia type- Primary documented in this encounter [facility] note* Diagnosis Onset Date Resolution Status Elevated serum creatinine ac [place] Iron deficiency anemia acute Obesity due to excess calories with serious comorbidit y acute Obesity hypoventilation syndrome acute Weakness acute Asthma chronic [facility] Work Phone: Evaluation note* Diagnosis Encounter for screening mammogram for breast cancer [facility]* Diagnosis Onset Date Resolution Status Iron deficiency anemia acute Obesity due to excess calori es with serious comorbidity acute Obesity hypoventilation syndrome acute Weakness acute Asthma chronic Elevated serum creatinine re solved Acute hyperkalemia acute LORNE (acute kidney injury) ac [place] Bradycardia acute Generalized weakness acute History of diabetes mellitus acute Hyperkalemia acute Obesity hypoventilation syndrome acute Unable to ambulate acute Chronic anemia chronic Chronic respiratory insufficiency chronic [facility] Work Phone: Evaluation note* Diagnosis Onset Date Resolution Status Iron deficiency anemia acute Obesity due to excess calori es with serious comorbidity acute Obesity hypoventilation syndrome acute Weakness acute Asthma chronic Elevated serum creatinine re solved Acute hyperkalemia acute LORNE (acute kidney injury) ac [place] Bradycardia acute Generalized weakness acute History of diabetes mellitus acute Hyperkalemia acute Obesity due to excess calori es with serious comorbidity acute Obesity hypoventilation syndrome acute Unable to ambulate acute Chronic anemia chronic Chronic pain chronic Chronic respiratory insufficiency chronic [facility] Work Phone: Evaluation note* Diagnosis Onset [...] resolved Generalized weakness resolve d Hyperkalemia resolved [facility] Work Phone: Evaluation note* Diagnosis Reactive depression- Primary Dysthymic disorder Anxiety state Anxiety state, unspecified [facility] this encounter [facility]* Diagnosis Dysuria documented in this encounter [facility]* Diagnosis Ulcer of left lower extremity, [...] Functional urinary incontinence documented in this encounter [facility]* Diagnosis Type 2 diabetes (HCC)- [facility] Diagnosis Type 2 diabetes (HCC)- Primary documented in this encounter [facility]* Diagnosis Type 2 diabetes (HCC)- Primary Morbid obesity (HCC) Morbid obesity Ulcer of left lower extremity, limited to breakdown of skin (HCC) documented in this encounter [facility]* Diagnosis Leg cramp Cramp of limb Muscle spasm Spasm of muscle documented in this encounter [facility]* Diagnosis Upper abdominal pain Abdominal pain, other specified site documented in this encounter [facility]* Diagnosis Anxiety state Anxiety state, unspecified Type 2 diabetes (HCC) documented in this encounter [facility]* Diagnosis Type 2 diabetes (HCC) [facility] Diagnosis Type 2 diabetes (HCC) documented in this encounter [facility]* Diagnosis Leg cramp Cramp of limb Muscle spasm Spasm of muscle Allergic rhinitis, unspecified seasonality, unspecified trigger Bilateral leg edema Edema Type 2 diabetes (HCC) Anxiety state Anxiety state, unspecified Primary hypertension Unspecified essential hypertension Upper abdominal pain Abdominal pain, other specified site QUEEN (dyspnea on exertion) Other dyspnea and respiratory abnormality documented in this encounter [facility] note* Diagnosis Monilial vaginitis Candidiasis of vulva and vagina documented [facility] this [facility]* Diagnosis Bacterial conjunctivitis of left eye- Primary Other conjunctivitis documented in this encounter [facility]* Diagnosis Functional incontinence- Primary Functional urinary incontinence Ulcer of left lower extremity, limited to breakdown of skin (HCC) Morbid obesity (HCC) Morbid obesity Decreased mobility Other symptoms involving nervous and musculoskeletal systems documented in this encounter [facility] note* Diagnosis Hypertension, unspecified type- Primary Pulmonary hypertension (HCC) Other chronic pulmonary heart diseases Moderate persistent asthma without complication Unspecified asthma Type 2 diabetes (HCC) BMI 60.0-69.9, adult (HCC) Body Mass Index 60.0-69.9, adult Decreased mobility Other symptoms involving nervous and musculoskeletal systems Gait instability Abnormality of gait documented in this encounter [facility] note* Diagnosis NO SHOW- Primary documented in this encounter [facility] note* Diagnosis Anxiety state Anxiety state, unspecified [facility]* Diagnosis Dysuria documented in this encounter [facility]* Diagnosis Type 2 diabetes (HCC)- Primary Morbid obesity (HCC) Morbid obesity [facility]* Diagnosis Type 2 diabetes (HCC)- Primary Hypertension, unspecified type Encounter for long-term current use of medication Low ferritin level Other nonspecific findings on examination of blood documented [facility]* Diagnosis Type 2 diabetes (HCC)- Primary Medication management Encounter for long-term (current) use of other medications documented in this encounter [facility] note* Diagnosis Primary insomnia- Primary Persistent disorder [...] Index 60.0-69.9, adult documented [facility] this encounter [facility]* Diagnosis Anxiety state Anxiety state, unspecified documented in this encounter [facility] note* Diagnosis Dental infection- Primary Acute apical periodontitis of pulpal origin documented in this encounter [facility] note* Diagnosis Type 2 diabetes (HCC) documented in this encounter [facility] note* Diagnosis Type 2 diabetes (HCC)- Primary documented [facility]* Diagnosis Cortical age-related cataract of left eye- Primary Cortical senile cataract Nuclear sclerosis, bilateral Other vitreous opacities, left eye Total, mature age-related cataract Type 2 diabetes mellitus without ophthalmic manifestations ([facility]) Type II or unspecified type diabetes mellitus without mention of complication, not stated as uncontrolled documented [facility] this encounter [facility]* Diagnosis Nuclear senile cataract of both eyes- Primary documented in this encounter [facility]* Diagnosis Unsteady gait- Primary Abnormality of gait Primary osteoarthritis of both knees Primary localized osteoarthrosis, lower leg Decreased mobility Other symptoms involving nervous and musculoskeletal systems documented in this encounter [facility]* Diagnosis Anxiety state Anxiety state, unspecified Total, mature age-related cataract documented in this encounter [facility] note* Diagnosis Diarrhea, unspecified type- Primary Total, mature age-related cataract documented in this encounter [facility]* Diagnosis Type 2 diabetes (HCC)- Primary Total, mature age-related cataract documented in this encounter [facility] note* Diagnosis Leg cramp Cramp of limb Muscle spasm Spasm of muscle Total, mature age-related cataract documented [facility] this [facility]* Diagnosis Dental infection Acute apical periodontitis of pulpal origin Anxiety state Anxiety state, unspecified Total, mature age-related cataract documented [facility] this encounter [facility]* Diagnosis Pre-operative examination- Primary Preoperative examination, [...] whether stage 3a or 3b CKD (HCC) Total, mature age-related cataract documented in this encounter [facility] note* Diagnosis Diarrhea, unspecified type- Primary Total, mature age-related cataract documented in this encounter [facility] note* Diagnosis Onset Date Resolution Status Acute renal failure acute Asymptomatic bacteriuria acu te Gastroenteritis acute Hypokalemia acute [facility] Work Phone: Evaluation note* Diagnosis Onset Date Resolution Status Acute renal failure acute Asymptomatic bacteriuria acu te Diarrhea acute Epigastric abdominal pain ac [place] Gastroenteritis acute History of diabetes mellitus acute Hypokalemia acute LUQ pain acute Obesity hypoventilation syndrome acute [facility] Work Phone: Evaluation note* Diagnosis Nausea- Primary Nausea alone Diarrhea, unspecified type Abdominal cramping Abdominal pain, unspecified site Vomiting, unspecified vomiting type, unspecified whether nausea present Total, mature age-related cataract documented in this encounter [facility] note* Diagnosis Primary hypertension- Primary Unspecified essential hypertension Total, mature age-related cataract documented in this encounter [facility] note* Diagnosis Skin infection- Primary Unspecified local infection of skin and subcutaneous tissue Dental infection Acute apical periodontitis of pulpal origin Primary osteoarthritis of both knees Primary localized osteoarthrosis, lower leg Total, mature age-related cataract documented in this encounter [facility] note* Diagnosis Acute renal insufficiency- Primary Unspecified [...] mature age-related cataract documented in this encounter [facility] note* Diagnosis Type 2 diabetes (HCC)- Primary documented in this encounter [facility] note* Diagnosis Pseudophakia- Primary Lens replaced by other means documented in this encounter [facility] note* Diagnosis Type 2 diabetes (HCC) [facility]* Diagnosis Anxiety state Anxiety state, unspecified [facility]* Diagnosis Upper abdominal pain Abdominal pain, other specified site Primary hypertension Unspecified essential hypertension documented [facility] this encounter [facility]* Diagnosis Type 2 diabetes (HCC)- Primary Morbid obesity (HCC) Morbid obesity [facility]* Diagnosis Dental infection Acute apical periodontitis of pulpal origin Skin infection Unspecified local infection of skin and subcutaneous tissue [facility] Diagnosis Pes planus of both feet- Primary Diabetic mononeuropathy associated with diabetes mellitus due to underlying condition (HCC) Hammer toe, unspecified laterality Onychomycosis Dermatophytosis of nail Pain in toe of left foot Pain in limb Pain in toe of right foot Pain in limb documented [facility] encounter [facility]* Diagnosis Type 2 diabetes (HCC)- Primary [facility]* Diagnosis Anxiety state Anxiety state, unspecified [facility]* Diagnosis Allergic rhinitis, unspecified seasonality, unspecified [...] therapeutic drug monitoring [facility]* Diagnosis 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- Primary Epiphora due to insufficient drainage Pseudophakia Lens replaced by other means Senile nuclear cataract, right [facility]* Diagnosis Type 2 diabetes (HCC) [facility]* Diagnosis Type 2 diabetes (HCC)- Primary [facility]* Diagnosis Left lower quadrant abdominal pain- Primary Pelvic pain Type 2 diabetes (HCC) Primary hypertension Unspecified essential hypertension [facility]* Diagnosis Type 2 diabetes (HCC)- Primary [facility]* Diagnosis Type 2 diabetes (HCC)- Primary Medication management Encounter for long-term (current) use of other medications [facility]* Diagnosis Allergic rhinitis, unspecified seasonality, unspecified trigger documented in this encounter [facility] note* Diagnosis Moderate persistent asthma without complication- Primary Unspecified asthma Morbid obesity (HCC) Morbid obesity Reactive depression Dysthymic disorder Anxiety state Anxiety state, unspecified Type 2 diabetes (HCC)- Primary documented in this encounter [facility] note* Diagnosis Type 2 diabetes (HCC)- Primary documented in this encounter [facility] note* Diagnosis Onychomycosis- Primary Dermatophytosis of nail Pain in toe of left foot Pain in limb Pain in toe of right foot Pain in limb Diabetic mononeuropathy associated with diabetes mellitus due to underlying condition ([facility]) documented in this encounter [facility] note* Diagnosis Type 2 diabetes (HCC)- Primary Anxiety state Anxiety state, unspecified Iron deficiency anemia, unspecified iron deficiency anemia type documented in this encounter [facility] note* Diagnosis Type 2 diabetes (HCC)- Primary documented in this encounter [facility] note* Diagnosis Left lower quadrant abdominal pain documented in this encounter [facility] note* Diagnosis Functional incontinence- Primary Functional urinary incontinence Decreased mobility Other symptoms involving nervous and musculoskeletal systems Ulcer of left lower extremity, limited to breakdown of skin (HCC) Morbid obesity (HCC) Morbid obesity documented in this encounter [facility] note* Diagnosis Chronic respiratory failure with hypoxia, on home O2 therapy (HCC) (HCC)- Primary Primary osteoarthritis of both knees Primary localized osteoarthrosis, lower leg Pulmonary hypertension (HCC) Other chronic pulmonary heart diseases BMI 60.0-69.9, adult (HCC) Body Mass Index 60.0-69.9, adult Morbid obesity with BMI of 50.0-59.9, adult (HCC) Morbid obesity documented in this encounter [facility] note* Diagnosis Type 2 diabetes (HCC)- Primary documented in this encounter [facility] note* Diagnosis Morbid obesity (HCC)- Primary Morbid obesity Decreased mobility Other symptoms involving nervous and musculoskeletal systems Functional incontinence Functional urinary incontinence Ulcer of left lower extremity, limited to breakdown of skin (HCC) Type 2 diabetes (HCC)- Primary documented in this encounter [facility] note* Diagnosis Type 2 diabetes (HCC)- Primary Type 2 diabetes (HCC)- Primary documented in this encounter [facility] note* Diagnosis Anxiety state Anxiety state, unspecified Type 2 diabetes (HCC)- Primary [facility]* Diagnosis Type 2 diabetes (HCC)- Primary documented in this encounter [facility]* Diagnosis Leg cramp Cramp of limb Muscle spasm Spasm of muscle documented in this encounter [facility]* Diagnosis Encounter for screening mammogram for breast cancer documented in this encounter [facility]* Diagnosis Reactive depression Dysthymic disorder documented in this encounter [facility]* Diagnosis Urinary frequency- Primary Flank pain Abdominal pain, unspecified site documented in this encounter [facility]* Diagnosis Onychomycosis- Primary Dermatophytosis of nail Pain in toe of left foot Pain in limb Pain in toe of right foot Pain in limb Diabetic polyneuropathy associated with type 2 diabetes mellitus (HCC) documented in this encounter [facility]* Diagnosis Anxiety state Anxiety state, unspecified Moderate persistent asthma without complication Unspecified asthma documented in this encounter [facility]* Diagnosis Diverticulitis- Primary Diverticulitis of colon (without mention of hemorrhage) Left lower quadrant abdominal pain Type 2 diabetes (HCC) Primary hypertension Unspecified essential hypertension Obstructive sleep apnea Obstructive sleep apnea (adult) (pediatric) Moderate persistent asthma without complication Unspecified asthma On supplemental oxygen therapy Dependence on supplemental oxygen [facility]* Diagnosis Moderate persistent asthma without complication- Primary Unspecified asthma documented in this encounter [facility]* Diagnosis Type 2 diabetes (HCC)- Primary documented in this encounter [facility] note* Diagnosis Encounter for gynecological examination (general) (routine) without abnormal findings- Primary Encounter for screening for human papillomavirus (HPV) Special screening examination for human papillomavirus (HPV) Pap smear for cervical cancer screening Screening for malignant neoplasm of the cervix Encounter for screening mammogram for breast cancer documented in this encounter [facility]* Diagnosis Pre-operative examination- Primary Preoperative examination, [...] and musculoskeletal systems [facility]* Diagnosis Pre-operative examination- Primary Preoperative examination, [...] (HCC) Morbid obesity [facility]* Diagnosis Pre-operative examination- Primary Preoperative examination, [...] Anxiety state, unspecified [facility]* Diagnosis Pre-operative examination- Primary Preoperative examination, [...] mention of hemorrhage) documented in this encounter [facility]* Diagnosis Pre-operative examination- Primary Preoperative examination, [...] quadrant abdominal pain documented in this encounter [facility] note* Diagnosis Pre-operative examination- Primary Preoperative examination, [...] pulmonary heart diseases documented in this encounter [facility]* Diagnosis Pre-operative examination- Primary Preoperative examination, [...] oxygen Hypoxia Hypoxemia documented in this encounter [facility]* Diagnosis Pre-operative examination- Primary Preoperative examination, [...] Anxiety state, unspecified documented in this encounter [facility] note* Diagnosis Pre-operative examination- Primary Preoperative examination, [...] single bacterial disease documented in this encounter [facility] note* Diagnosis Pre-operative examination- Primary Preoperative examination, [...] Anxiety state, unspecified [facility]* Diagnosis Pre-operative examination- Primary Preoperative examination, [...] Spasm of muscle documented in this encounter [facility]* Diagnosis Pre-operative examination- Primary Preoperative examination, [...] complication Unspecified asthma documented [facility] this encounter [facility]* Diagnosis Pre-operative examination- Primary Preoperative examination, [...] Anxiety state, unspecified [facility] Diagnosis Pre-operative examination- Primary Preoperative [...] urinary system Dysuria [facility]* Diagnosis Pre-operative examination- Primary Preoperative examination, [...] depression Dysthymic disorder [facility]* Diagnosis Pre-operative examination- Primary Preoperative examination, [...] (HCC) Dysuria- Primary documented in this [facility]* Diagnosis Pre-operative examination- Primary Preoperative examination, [...] (HCC) Dysuria- Primary documented in this encounter [facility] note* Diagnosis Pre-operative examination- Primary Preoperative examination, [...] 2 diabetes (HCC) documented in this encounter [facility] note* Diagnosis Pre-operative examination- Primary Preoperative examination, [...] diabetes mellitus (HCC) documented [facility]* Diagnosis Pre-operative examination- Primary Preoperative examination, [...] surveillance and counseling [facility]* Diagnosis Pre-operative examination- Primary Preoperative examination, [...] complication Unspecified asthma [facility] Diagnosis Pre-operative examination- Primary Preoperative [...] Pelvic pain- Primary documented [facility]* Diagnosis Pre-operative examination- Primary Preoperative examination, [...] Anxiety state, unspecified documented in this encounter [facility] note* Diagnosis Pre-operative examination- Primary Preoperative examination, [...] neurogenic claudication present documented in this encounter [facility] note* Diagnosis Pre-operative examination- Primary Preoperative examination, [...] diabetes mellitus (HCC) [facility]* Diagnosis Pre-operative examination- Primary Preoperative examination, [...] cystitis Urinary frequency [facility]* Diagnosis Pre-operative examination- Primary Preoperative examination, [...] Spasm of muscle [facility]* Diagnosis Pre-operative examination- Primary Preoperative examination, [...] hematuria, site unspecified documented in this encounter [facility] note* Diagnosis Pre-operative examination- Primary Preoperative examination, [...] (HCC) Unspecified asthma documented in this encounter [facility] note* Diagnosis Pre-operative examination- Primary Preoperative examination, [...] 2 diabetes (HCC) documented in this encounter [facility] note* Diagnosis Pre-operative examination- Primary Preoperative examination, [...] therapeutic drug monitoring [facility] Diagnosis Pre-operative examination- Primary Preoperative examination, [...] anemia type- Primary [facility] Diagnosis Pre-operative examination- Primary Preoperative examination, [...] deficiency anemia type [facility] Diagnosis Pre-operative examination- Primary Preoperative examination, [...] Unspecified essential hypertension [facility] this [facility] Diagnosis Pre-operative examination- Primary Preoperative examination, [...] Unspecified essential hypertension [facility] Diagnosis Pre-operative examination- Primary Preoperative examination, [...] 2 diabetes (HCC) [facility] Diagnosis Pre-operative examination- Primary Preoperative examination, [...] asthma Hypoxia Hypoxemia [facility] Diagnosis Pre-operative examination- Primary Preoperative examination, [...] Concern about memory [facility] this [facility] Diagnosis Pre-operative examination- Primary Preoperative examination, [...] unspecified deficiency type documented [facility] this [facility]* Diagnosis Pre-operative examination- Primary Preoperative examination, [...] Severe sleep apnea documented [facility] this [facility]* Diagnosis Pre-operative examination- Primary Preoperative examination, [...] Anxiety state, unspecified [facility] Diagnosis Pre-operative examination- Primary Preoperative examination, [...] Anxiety state, unspecified documented in this encounter [facility] note* Diagnosis Pre-operative examination- Primary Preoperative examination, [...] for breast cancer documented in this encounter [facility] note* Diagnosis Pre-operative examination- Primary Preoperative examination, [...] seasonality, unspecified trigger documented in this encounter [facility] note* Diagnosis Pre-operative examination- Primary Preoperative examination, [...] urinary tract infections [facility] Diagnosis Pre-operative examination- Primary Preoperative examination, [...] Anemia, unspecified type [facility] this [facility]* Diagnosis Pre-operative examination- Primary Preoperative examination, [...] specified intestinal malabsorption [facility] Diagnosis Pre-operative examination- Primary Preoperative examination, [...] electrocardiogram (ECG) (EKG) [facility]* Diagnosis Pre-operative examination- Primary Preoperative examination, [...] renal failure (HCC) [facility] Diagnosis Pre-operative examination- Primary Preoperative [...] renal failure (HCC) [facility] Work Phone: Progress note No data available for this section [facility] note Author Jennifer Otto [facility] Note Date/Time December 08, 2024 1 1:40am [facility] [address] [place] [address], [address] [place] [address] OFFICE VISIT Date of Service: 12/08/24 MR#: [id number] Acct: [id number] Name: MGEGAN ARITA Rep #: [id number] : 1960 Provider: Dr. Ebenezer Otto MD Age/Sex: 63/F Location: [facility] Status: Signed Intake Vital Signs 12/26/23 13:25 12/08/24 10:56 Height 5 ft 8 in 5 ft 8 in Weight: 340 lb BMI 51.7 BP 135/75 H Pulse 76 Intake Visit Reasons: Freq. UTI Chief Complaint: new patient- frequent uti Companion Caregiver Required: No Accompanied by: Is patient in pain?: No Allergies codeine Allergy (Verified 12/08/24 10:55) Nausea/Vom/Diarrhea iodine Allergy (Verified 12/08/24 10:55) Swelling latex Allergy (Verified 12/08/24 10:55) Shortness of breath meloxicam Allergy (Verified 12/08/24 10:55) Rash Penicillins Allergy (Verified 12/08/24 10:55) Shortness of breath tositumomab Allergy (Verified 12/08/24 10:55) NEEDS FOLLOW-UP hydrocodone bitartrate (From Vicodin) Adverse Reaction (Verified 12/08/24 10:55) Nausea/Vom/Diarrhea Medications ?Medication ?Instructions ?Recorded ?Confirmed ?Type albuterol sulfate 2.5 mg/3 mL 2.5 mg inhalation Q6HWA. RT PRN 11/23/12 12/08/24 History (0.083 %) solution for nebulization Asthma acetaminophen 325 mg tablet 650 mg (2 x 325 mg) PO Q6H PRN PRN 08/15/21 12/08/24 Rx (Tylenol) Pain Score 1-10/Temp > 100.7 F #0 tabs ascorbic acid (vitamin C) 500 mg 500 mg PO BIDCM #0 ta bs 08/15/21 12/08/24 Rx tablet ferrous sulfate 325 mg (65 mg 325 mg PO BIDCM #0 tabs 08/15/21 12/08/24 Rx iron) tablet (FeroSul) diclofenac sodium 1 % topical gel 1 ea topical PRN PRN Pain 11/18/21 12/08/24 History lorazepam 1 mg tablet 1 mg PO BID PRN PRN Anxiety #5 tabs 11/20/21 12/08/24 Rx fluticasone propionate 50 2 spray DAILY PRN Sinus Symp toms 01/30/22 12/08/24 Rx mcg/actuation nasal #16 grams spray,suspension potassium chloride 20 mEq 20 meq PO BIDCM #14 tabs 12/08/24 Rx tablet,extended release(part/cryst) (Klor-Con M) albuterol sulfate 90 mcg/actuation 2 puff inhalation Q 4H PRN 03/18/23 12/08/24 Rx aerosol inhaler (Ventolin HFA) shortness of breath or wheezing #18 grams bupropion HCl 300 mg 24 hr tablet, 300 mg PO QDAY 08/1712/08/24 History extended release cholecalciferol (vitamin D3) 50 50 mcg PO QDAY 4 12/08/24 History mcg (2,000 unit) capsule cyclobenzaprine 5 mg tablet 5 mg PO TID PRN 06/30/23 1 History furosemide 40 mg tablet 40 mg PO QDAY PRN 06/30/23 1 History losartan 50 mg tablet 100 mg PO DAILY 06/30/23 History metolazone 5 mg tablet 5 mg PO QDAY 06/30/23 History mometasone-formoterol HFA 200 2 puff inhalation BID 12/08/24 History mcg-5 mcg/actuation aerosol inhaler (Dulera) montelukast 10 mg tablet 10 mg PO QDAY 06/30/2312/08 History polyethylene glycol 3350 17 gram 17 g PO DAILY PRN 08/1712/08/24 History oral powder packet (Miralax) tirzepatide 2.5 mg/0.5 mL 5 mg subcut 06/30/23 5 History subcutaneous pen injector (Mounjosef) venlafaxine 75 mg capsule,extended 75 mg PO QDAY 06/2912/08/24 History release 24 hr atorvastatin 10 mg tablet 10 mg PO QDAY 12/08/2412/08 History dicyclomine 10 mg capsule 10 mg PO Q6 PRN 12/08/24 History metformin 500 mg tablet,extended 500 mg PO QDAY 12/08/24 History release 24 hr nystatin 100,000 unit/gram topical 1 applic topical QD AY 12/08/24 12/08/24 History powder pantoprazole 40 mg tablet,delayed 40 mg PO QDAY 12/08/24 History release topiramate 100 mg tablet 100 mg PO BID 12/08/2412/08 History Nurse's Note: lower abdominal cramping on and off. Bladder scan PVR 8cc [facility] Medical History Hypokalemia Asymptomatic bacteriuria Gastroenteritis Chronic [...] here for evaluation and management of urinary tract infections. She also has an intermittent lower abdominal cramping that she has had for 2 years. Sometimes it feels like menstrual cramping, but she is post-menopausal. She has urinary urgency. She is voiding 4-5 times during the day, 2 times at night. There is urge incontinence where she cannot make it to the bathroom. There is stress incontinence with cough, laugh, sneeze, lifting, etc. She is using 2 pads in 24 hours. She has had 4 urinary tract infections in the last year. Her symptoms are increased urgency, itching, low back pain. She is having positive cultures. She has not had visible blood in her urine. She is not sexually active. There is no sensation of vaginal bulging. She has the following issues with chronic bowel function: constipation. There is occasional pelvic pain. She has no history of smoking. There is no history of blood clots or easy bleeding. There is not a family history of female cancer in the family. She is getting iron infusions for anemia, causing constipation. This has been for the last 3 weeks. She is not diabetic at this time, but she still intermittently tests her glucoselevels. She cannot recall her last Hgb A1C. She had severe lung failure and was in hospital for a month, half-way for a year. Now she is home. Will be starting therapy soon to improve walking. She washaving it in her home, now not covered. ROS Const Constitutional: No chills, fatigue, fever(s), headache(s), night sweats, weakness, weight change, abnormal sleep pattern or change in appetite Eyes Eyes: No change in vision ENT ENT: No headache(s) or dry mouth Resp Respiratory: No cough, chest congestion, shortness of breath or wheezing Cardio Cardiology: Positive for other (No chest pain.); No shortness of breath, irregular heart rhythm or lightheadedness Gastro GI: Positive for cramping and other (No nausea.); No abdominal pain, change in bowel habits, constipation, diarrhea or vomiting Musc Musculoskeletal: Positive for abnormal gait (non-ambulatory for last 2 years) Skin Skin: No yellowing of the eye, lesions, itchy eyes, rash or skin ulcer Neuro Neurology: Positive for abnormal gait (non-ambulatory for last 2 years); No confusion, dizziness, weakness, headache(s) or memory loss Psych Psychiatric: No abnormal sleep pattern, No change in appetite, No confusion and No memory loss Endo Endocrine: No fatigue, increased thirst/drinking or weight change Aller/Imm Allergy/Immunologic: No itchy eyes or wheezing Alcides/Lymp Hematologic/Lymphatic: No easy bleeding, easy bruising or enlarged lymph nodes Exam Const General: cooperative, healthy appearing, comfortable and no acute distress Other: in wheelchair [facility] Head: normocephalic and atraumatic Ears: hearing grossly normal bilaterally and external ears normal Nose: external nose normal Eyes General: appearance normal, both eyes and all related structures Neck Neck: normal visual inspection and trachea midline Chest Chest palpation & inspection: normal inspection of the chest Resp Effort & Inspection: normal respiratory effort, able to speak in complete sentences and symmetric chest movement Cardio Rate: regular rate GI Inspection: normal to inspection Palpation: soft and nontender General: No CVA tenderness Musc Musculoskeletal: Yes muscle weakness Other: using walker at home, wheelchair when out Skin General: no rashes or lesions noted Neuro General: patient alert, patient awake, patient oriented x3 and CN's II-XI intactbilaterally Extrem General: normal to inspection Psych Appearance: grossly normal and well kempt Mental Status: mental status grossly normal Office Procedures Post Void Residual Post Void Residual: 8cc Supplemental Info 45 minutes were spend in record review, history and physical exam, discussion ofoptions, development of a plan, and documentation for this appointment today. Coding Level of Care Code Off vis,new,level 4 Diagnoses Urinary tract infection N39.0 Mixed incontinence N39.46 Nocturia R35.1 Constipation K59.00 Assessment and Plan Assessment and Plan (1) Urinary tract infection: Status: Acute (2) Mixed incontinence: Status: Acute (3) Nocturia: Status: Acute (4) Constipation: Status: Acute Orders: Orders Kidney and Bladder Today N39.0 - Urinary tract infection, site not specified PVR Today N39.46 - Mixed incontinence Plan renal ultrasound cystoscopy and pelvic exam, risks discussed start infection prevention vaginal estrogen cream at next visit address incontinence at next visit bowel management for constipation Plan Details Follow Up: next available (cystoscopy and pelvic exam) 12/08/24 1244 <Electronically signed by Jennifer Otto MD> Date _ Jennifer Otto MD Cosigner Signature: Date (if applicable) CC: ~ [facility] [employer] Work Phone: Reason for referral (narrative)* Diagnostic Procedure Only (Routine) - Pending Review Specialty Diagnoses / Procedures Referred By Almita hyman Referred To Contact US IMAGING Diagnoses Peripheral vascular disease, unspecified (HCC) Procedures US ARTERIAL PVR LOWER NON-INVASIVE PHYSIOLOGIC STUDY EXTREMITY 3 Matt Stewart MD [address] [place] [address] Us Imaging Referral ID Status Reason Start Date Expiration Date Visits Requested Visits Authorized [id number] Pending Review Auto-Generat ed Referral 07/17/2021 08/16/2022 1 1 [facility] for referral (narrative)* Diagnostic Procedure Only (Routine) - Pending Review Specialty Diagnoses / Procedures Referred By Contac t Referred To Contact XR IMAGING Diagnoses Pain in both knees, unspecified chronicity Procedures XR KNEE GENERAL 4V AP BOTH/PA BOTH/LAT/MERC BILATERAL RADIOLOGIC EXAM KNEE COMPLETE 4/MORE VIEWS Shine Mendoza MD [address] [place] [address] Xr Imaging Referral ID Status Reason Start Date Expiration Date Visits Requested Visits Authorized [id number] Pending Review Auto-Generat ed Referral 07/26/2021 08/25/2022 1 1 [facility] for referral (narrative)* Diagnostic Procedure Only (Routine) - Pending Review Specialty Diagnoses / Procedures Referred By Almita t Referred To Contact BR IMAGING Diagnoses Encounter for screening mammogram for breast cancer Procedures NITO SCREENING SCREENING MAMMOGRAPHY BI 2-VIEW BREAST INC CAD Erica Cannon MD [address] [place] [address] Br Imaging [address] [place] [address] Referral ID Status Reason Start Date Expiration Date Visits Requested Visits Authorized [id number] Pending Review Auto-Generat ed Referral 08/22/2021 09/21/2022 1 1 [facility] for referral (narrative)* Outpatient Procedure (Routine) - Additional Clinical Info Needed Specialty Diagnoses / Procedures Referred By Contac t Referred To Contact [facility] Diagnoses Pre-operative examination Procedures ECHO ECHO TTHRC R-T 2D W/WOM-MODE COMPL SPEC&COLR D Dpahne Araujo, OLIVE GROWER.[facility] [address] [place] [address] [facility] [place] [address] [place] [address] Referral ID Status Reason Start Date Expiration Date Visits Requested Visits Authorized [id number] Additional Clinical Info Needed Auto-Generat ed Referral 08/07/2022 08/07/2023 1 1 [facility] for referral (narrative)* Diagnostic Procedure Only (Routine) - Pending Review Specialty Diagnoses / Procedures Referred By Almita hyman Referred To Contact BR IMAGING Diagnoses Encounter for screening mammogram for breast cancer Procedures NITO SCREENING SCREENING MAMMOGRAPHY BI 2-VIEW BREAST INC Erica Bustos MD [address] [place] [address] [facility] [address] [place] [phone] Referral ID Status Reason Start Date Expiration Date Visits Requested Visits Authorized [id number] Pending Review Auto-Generat ed Referral 07/09/2023 08/07/2024 1 1 [facility] for referral (narrative)* Diagnostic Procedure Only (Routine) - New Request Specialty Diagnoses / Procedures Referred By Almita hyman Referred To Contact BR IMAGING Diagnoses Encounter for screening mammogram for breast cancer Procedures NITO SCREENING W NISHANT SCREENING DIGITAL BREAST TOMOSYNTHESIS BI SCREENING MAMMOGRAPHY BI 2-VIEW BREAST INC Jame Turpin MD [address] [place] [address] Br Imaging [address] [place] [phone] Referral ID Status Reason Start Date Expiration Date Visits Requested Visits Authorized [id number] New Request Auto-Generat ed Referral 10/08/2023 11/06/2024 1 1 [facility] for referral (narrative)* Outpatient Procedure (Routine) - New Request Specialty Diagnoses / Procedures Referred By Almita hyman Referred To Contact [facility] Diagnoses Moderate persistent asthma without complication On supplemental oxygen therapy Obstructive sleep apnea Pulmonary hypertension (HCC) Procedures SIX MINUTE WALK CARDIOPULMONARY EXERCISE STRESS Silvestre Jain APRN.CNP [address] [place] [address] [facility] [place] [address] [place] [address] Referral ID Status Reason Start Date Expiration Date Visits Requested Visits Authorized [id number] New Request Auto-Generat ed Referral 11/05/2023 12/04/2024 1 1 [facility] for referral (narrative)No reason for referral information availableHamilton [facility] Services Work Phone: Summary Purpose Family History No Family History Records Found Relationship Condition Age at Onset Recorded Date/T julianna Unknown Family History?Heart Disease Unknown July 31, 2015 6:44pm Family History?Heart Disease Unknown July 31, 2015 6:44pm Relationship Condition Age at Onset Recorded Date/T julianna Not Specified Diabetes mellitus Unknown Cardiac disease Unknown Hypertension Unknown Relationship Condition Age at Onset Recorded Date/T julianna Not Specified Diabetes mellitus Unknown Cardiac disease Unknown Hypertension Unknown Cerebrovascular accident (CVA) Unknown Advance Directives No Advanced Directives Records Found Advance Directive Response Recorded Date/ Time Advance Directives No January 2:07pm Living Will No February 21 2:07pm Power of Painter Ordnance No February 22, 2016 2:07pm Advance Directive Response Recorded Date/ Time Advance Directives No January 2:07pm Living Will No July 31, 2021 5 :47pm Power of Painter Ordnance No July 31, 2021 5:47pm Advance Directive Response Recorded Date/ Time Advance Directives No January 2:07pm Living Will No November 18, 2021 7:15pm Power of Painter Ordnance No October 7:15pm Advance Directive Response Recorded Date/ Time Advance Directives No January 2:07pm Living Will No November 18, 2021 10:20pm Power of Painter Ordnance No October 10:20pm Advance Directive Response Recorded Date/ Time Name of Medical Power of Painter Ordnance ARTURO ARITA November 29, 2021 7:13am Advance Directives No January 2:07pm Living Will Yes October 6th, 202 2 7:13am Power of Painter Ordnance Yes November 29 7:13am Advance Directive Response Recorded Date/ Time Advance Directives No January 2:07pm Living Will No August 14, 2022 6:22pm Power of Painter Ordnance No August 14 6:22pm Advance Directive Response Recorded Date/ Time Name of Medical Power of Painter Ordnance [facility] August 14, 2022 10:20pm Advance Directives No January 2:07pm Living Will Yes August 14, 2022 10:20pm Power of Painter Ordnance Yes August 14 10:20pm Advance Directive Response [...] LUQ pain July 16, 2024 10:24 am Chief Complaint Admit Date bilateral knees November 01, 2024 11:18am Freq. UTI December 08, 2024 1 0:42am UTI December 18, 2024 1 1:02am cystoscopy and pelvic exam December 20, 2024 10:20am Reason for Visit Admit Date DJD (degenerative joint disease) of knee November 01, 2024 11:18am Obesity due to excess calories with seri ous comorbidity November 01, 2024 11:18am Mixed incontinence December 08, 2024 1 0:42am Nocturia December 08, 2024 1 0:42am Urinary tract infection December 08 10:42am Constipation December 08, 2024 1 0:42am Frequent UTI December 20, 2024 1 0:20am Mixed incontinence December 20, 2024 1 0:20am Nocturia December 20, 2024 1 0:20am Urinary tract infection December 20 10:20am Constipation December 20, 2024 1 0:20am Reason for Referral Specialty Diagnoses / Procedures Referred By Contac t Referred To Contact CT IMAGING Diagnoses Left lower quadrant abdominal pain Diverticulitis Procedures CT ABD/PEL WO IVCON CT ABD & PELVIS W/O CONTRAST Silvestre Jain APRN.[facility] [place] [address] [place] [address] Referral ID Status Reason Start Date Expiration Date Visits Requested Visits Authorized [id number] Pending Review Auto-Generat ed Referral 11/06/2023 12/05/2024 1 1 Specialty Diagnoses / Procedures Referred By Contac t Referred To Contact Silvestre Jain APRN.[facility] [address] [place] [id number] Referral ID Status Reason Start Date Expiration Date Visits Re quested Visits Authorized [id number] Closed 1 1 Specialty Diagnoses / Procedures Referred By Contac t Referred To Contact Gynecology Diagnoses Pelvic pain Procedures CONSULT TO GYNECOLOGY OFFICE/OUTPATIENT [facility] 60-74 MINUTES Silvestre Jain APRN.[facility] [address] [place] [address] Referral ID Status Reason Start Date Expiration Date Visits Requested Visits Authorized [id number] Authorized PCP Requested Referral Auto-Generate d Referral 01/01/2023 01/01/2024 1 1 Specialty Diagnoses / Procedures Referred By Contac t Referred To Contact [facility] Diagnoses Pelvic pain Procedures PELVIC US WHI US PELVIC NONOBSTETRIC REAL-TIME IMAGE COMPLETE Silvestre Jain APRN.[facility] [address] [place] [address] [address] Referral ID Status Reason Start Date Expiration Date Visits Requested Visits Authorized [id number] Pending Review Auto-Generat ed Referral 01/01/2023 01/01/2024 1 1 Specialty Diagnoses / Procedures Referred By Contac t Referred To Contact [facility] Diagnoses Decreased mobility Procedures CONSULT TO PHYSICAL THERAPY PHYSICAL THERAPY EVALUATION HIGH COMPLEX 45 MINS Silvestre Jain APRN.[facility] [address] [place] [address] [facility] [address] [address] Referral ID Status Reason Start Date Expiration Date Visits Requested Visits Authorized [id number] Pending Review Auto-Generat ed Referral 11/05/2022 11/05/2023 1 1 Specialty Diagnoses / Procedures Referred By Contac t Referred To Contact Nutrition Diagnoses Type 2 diabetes (HCC) Procedures CONSULT TO NUTRITION THERAPY MEDICAL NUTRITION ASSMT&IVNTJ INDIV EACH 15 OR MEDICAL NUTRITION ASSMT&IVNTJ INDIV EACH 15 OR MEDICAL NUTRITION ASSMT&IVNTJ INDIV EACH 15 OR MEDICAL NUTRITION ASSMT&IVNTJ INDIV EACH 15 OR Erica Cannon MD [address] [place] [address] Referral ID Status Reason Start Date Expiration Date Visits Requested Visits Authorized [id number] Authorized PCP Requested Referral 10/25/2022 10/25/2023 1 1 Specialty Diagnoses / Procedures Referred By Contac t Referred To Contact CT IMAGING Diagnoses Nausea Procedures CT ABD/PEL WO IVCON CT ABD & PELVIS W/O CONTRAST Katya Oliva OLIVE GROWER.[facility] [address] [place] [address] Ct Imaging Referral ID Status Reason Start Date Expiration Date Visits Requested Visits Authorized [id number] Pending Review Auto-Generat ed Referral 08/14/2022 09/13/2023 1 1 Specialty Diagnoses / Procedures Referred By Contac t Referred To Contact Gastroenterology Diagnoses Diarrhea, unspecified type Abdominal cramping Procedures CONSULT TO GASTROENTEROLOGY OFFICE/OUTPATIENT [facility] 60-74 MINUTES Katya Oliva OLIVE GROWER.[facility] [address] [place] [address] Referral ID Status Reason Start Date Expiration Date Visits Requested Visits Authorized [id number] Authorized PCP Requested Referral 08/14/2022 08/14/2023 1 1 Specialty Diagnoses / Procedures Referred By Contac t Referred To Contact Lydia North APRN.[employer] OPERATOR [address] [place] [address] Referral ID Status Reason Start Date Expiration Date Visits Re quested Visits Authorized [id number] Closed 1 1 Specialty Diagnoses / Procedures Referred By Contac t Referred To Contact Nutrition Diagnoses Type 2 diabetes (HCC) Morbid obesity (HCC) Procedures CONSULT TO NUTRITION THERAPY MEDICAL NUTRITION ASSMT&IVNTJ INDIV EACH 15 OR MEDICAL NUTRITION ASSMT&IVNTJ INDIV EACH 15 OR MEDICAL NUTRITION ASSMT&IVNTJ INDIV EACH 15 OR MEDICAL NUTRITION ASSMT&IVNTJ INDIV EACH 15 OR Silvestre Jain [employer].[facility] [address] [place] [address] Referral ID Status Reason Start Date Expiration Date Visits Requested Visits Authorized [id number] Authorized PCP Requested Referral 05/03/2022 05/03/2023 1 1 Specialty Diagnoses / Procedures Referred By Contac t Referred To Contact Ophthalmology Diagnoses Bacterial conjunctivitis of left eye Procedures CONSULT TO OPHTHALMOLOGY OFFICE/OUTPATIENT [facility] 60-74 MINUTES Lydia North, [employer].RAW MILL OPERATOR [address] [place] [address] Referral ID Status Reason Start Date Expiration Date Visits Requested Visits Authorized [id number] Authorized PCP Requested Referral 04/04/2022 04/04/2023 1 1 Specialty Diagnoses / Procedures Referred By Contac t Referred To Contact Diagnoses Type 2 diabetes (HCC) Silvestre Jain APRN.[facility] [address] [place] [address] Referral ID Status Reason Start Date Expiration Date Visits Re quested Visits Authorized [id number] Closed 1 1 Medications Administered Section Administered [...] section and content) DATE CREATED AUTHOR 08/28/2017 [facility] DATE CREATED AUTHOR AUTHOR'S ORGANIZ ATION 07/22/2021 [facility] DATE CREATED AUTHOR AUTHOR'S ORGANIZ ATION [facility]20[facility] DATE CREATED AUTHOR AUTHOR'S ORGANIZ ATION 12/04/2024 [facility] DATE CREATED AUTHOR AUTHOR'S ORGANIZ ATION 12/30/2024 [facility] Source Comments (unrecognize d section and content) In the event this informatio n is protected by the Federal Confidentiality of Alcohol and Drug Abuse Patient Records regulations: The Federal rules restrict any use of the information to criminally investigate or prosecute any alcohol or drug abuse patient.[facility]In the event this information is protected by the Federal Confidentiality of Alcohol and Drug Abuse Patient Records regulations: The Federal rules restrict any use of the information to criminally investigate or prosecute any alcohol or drug abuse patient.[facility] HospitalIn the event this information is protected by the Federal Confidentiality of Alcohol and Drug Abuse Patient Records regulations: The Federal rules restrict any use of the information to criminally investigate or prosecute any alcohol or drug abuse patient.[facility] HospitalIn the event this information is protected by the Federal Confidentiality of Alcohol and Drug Abuse Patient Records regulations: The Federal rules restrict any use of the information to criminally investigate or prosecute any alcohol or drug abuse patient.[facility] HospitalIn the event this information is protected by the Federal Confidentiality of Alcohol and Drug Abuse Patient Records regulations: The Federal rules restrict any use of the information to criminally investigate or prosecute any alcohol or drug abuse patient.[facility] HospitalIn the event this information is protected by the Federal Confidentiality of Alcohol and Drug Abuse Patient Records regulations: The Federal rules restrict any use of the information to criminally investigate or prosecute any alcohol or drug abuse patient.[facility] HospitalIn the event this information is protected by the Federal Confidentiality of Alcohol and Drug Abuse Patient Records regulations: The Federal rules restrict any use of the information to criminally investigate or prosecute any alcohol or drug abuse patient.[facility] HospitalIn the event this information is protected by the Federal Confidentiality of Alcohol and Drug Abuse Patient Records regulations: The Federal rules restrict any use of the information to criminally investigate or prosecute any alcohol or drug abuse patient.[facility] HospitalIn the event this information is protected by the Federal Confidentiality of Alcohol and Drug Abuse Patient Records regulations: The Federal rules restrict any use of the information to criminally investigate or prosecute any alcohol or drug abuse patient.[facility] HospitalIn the event this information is protected by the Federal Confidentiality of Alcohol and Drug Abuse Patient Records regulations: The Federal rules restrict any use of the information to criminally investigate or prosecute any alcohol or drug abuse patient.[facility] HospitalIn the event this information is protected by the Federal Confidentiality of Alcohol and Drug Abuse Patient Records regulations: The Federal rules restrict any use of the information to criminally investigate or prosecute any alcohol or drug abuse patient.[facility] HospitalIn the event this information is protected by the Federal Confidentiality of Alcohol and Drug Abuse Patient Records regulations: The Federal rules restrict any use of the information to criminally investigate or prosecute any alcohol or drug abuse patient.[facility] HospitalIn the event this information is protected by the Federal Confidentiality of Alcohol and Drug Abuse Patient Records regulations: The Federal rules restrict any use of the information to criminally investigate or prosecute any alcohol or drug abuse patient.[facility] HospitalIn the event this information is protected by the Federal Confidentiality of Alcohol and Drug Abuse Patient Records regulations: The Federal rules restrict any use of the information to criminally investigate or prosecute any alcohol or drug abuse patient.[facility] HospitalIn the event this information is protected by the Federal Confidentiality of Alcohol and Drug Abuse Patient Records regulations: The Federal rules restrict any use of the information to criminally investigate or prosecute any alcohol or drug abuse patient.[facility] HospitalIn the event this information is protected by the Federal Confidentiality of Alcohol and Drug Abuse Patient Records regulations: The Federal rules restrict any use of the information to criminally investigate or prosecute any alcohol or drug abuse patient.[facility] HospitalIn the event this information is protected by the Federal Confidentiality of Alcohol and Drug Abuse Patient Records regulations: The Federal rules restrict any use of the information to criminally investigate or prosecute any alcohol or drug abuse patient.[facility] HospitalIn the event this information is protected by the Federal Confidentiality of Alcohol and Drug Abuse Patient Records regulations: The Federal rules restrict any use of the information to criminally investigate or prosecute any alcohol or drug abuse patient.[facility] HospitalIn the event this information is protected by the Federal Confidentiality of Alcohol and Drug Abuse Patient Records regulations: The Federal rules restrict any use of the information to criminally investigate or prosecute any alcohol or drug abuse patient.[facility] HospitalIn the event this information is protected by the Federal Confidentiality of Alcohol and Drug Abuse Patient Records regulations: The Federal rules restrict any use of the information to criminally investigate or prosecute any alcohol or drug abuse patient.[facility] HospitalIn the event this information is protected by the Federal Confidentiality of Alcohol and Drug Abuse Patient Records regulations: The Federal rules restrict any use of the information to criminally investigate or prosecute any alcohol or drug abuse patient.[facility] HospitalIn the event this information is protected by the Federal Confidentiality of Alcohol and Drug Abuse Patient Records regulations: The Federal rules restrict any use of the information to criminally investigate or prosecute any alcohol or drug abuse patient.[facility] HospitalIn the event this information is protected by the Federal Confidentiality of Alcohol and Drug Abuse Patient Records regulations: The Federal rules restrict any use of the information to criminally investigate or prosecute any alcohol or drug abuse patient.[facility] HospitalIn the event this information is protected by the Federal Confidentiality of Alcohol and Drug Abuse Patient Records regulations: The Federal rules restrict any use of the information to criminally investigate or prosecute any alcohol or drug abuse patient.[facility] HospitalIn the event this information is protected by the Federal Confidentiality of Alcohol and Drug Abuse Patient Records regulations: The Federal rules restrict any use of the information to criminally investigate or prosecute any alcohol or drug abuse patient.[facility] HospitalIn the event this information is protected by the Federal Confidentiality of Alcohol and Drug Abuse Patient Records regulations: The Federal rules restrict any use of the information to criminally investigate or prosecute any alcohol or drug abuse patient.[facility] HospitalIn the event this information is protected by the Federal Confidentiality of Alcohol and Drug Abuse Patient Records regulations: The Federal rules restrict any use of the information to criminally investigate or prosecute any alcohol or drug abuse patient.[facility] HospitalIn the event this information is protected by the Federal Confidentiality of Alcohol and Drug Abuse Patient Records regulations: The Federal rules restrict any use of the information to criminally investigate or prosecute any alcohol or drug abuse patient.[facility] HospitalIn the event this information is protected by the Federal Confidentiality of Alcohol and Drug Abuse Patient Records regulations: The Federal rules restrict any use of the information to criminally investigate or prosecute any alcohol or drug abuse patient.[facility] HospitalIn the event this information is protected by the Federal Confidentiality of Alcohol and Drug Abuse Patient Records regulations: The Federal rules restrict any use of the information to criminally investigate or prosecute any alcohol or drug abuse patient.[facility] HospitalIn the event this information is protected by the Federal Confidentiality of Alcohol and Drug Abuse Patient Records regulations: The Federal rules restrict any use of the information to criminally investigate or prosecute any alcohol or drug abuse patient.[facility] HospitalIn the event this information is protected by the Federal Confidentiality of Alcohol and Drug Abuse Patient Records regulations: The Federal rules restrict any use of the information to criminally investigate or prosecute any alcohol or drug abuse patient.[facility] HospitalIn the event this information is protected by the Federal Confidentiality of Alcohol and Drug Abuse Patient Records regulations: The Federal rules restrict any use of the information to criminally investigate or prosecute any alcohol or drug abuse patient.[facility] HospitalIn the event this information is protected by the Federal Confidentiality of Alcohol and Drug Abuse Patient Records regulations: The Federal rules restrict any use of the information to criminally investigate or prosecute any alcohol or drug abuse patient.[facility] HospitalIn the event this information is protected by the Federal Confidentiality of Alcohol and Drug Abuse Patient Records regulations: The Federal rules restrict any use of the information to criminally investigate or prosecute any alcohol or drug abuse patient.[facility] HospitalIn the event this information is protected by the Federal Confidentiality of Alcohol and Drug Abuse Patient Records regulations: The Federal rules restrict any use of the information to criminally investigate or prosecute any alcohol or drug abuse patient.[facility] HospitalIn the event this information is protected by the Federal Confidentiality of Alcohol and Drug Abuse Patient Records regulations: The Federal rules restrict any use of the information to criminally investigate or prosecute any alcohol or drug abuse patient.[facility] HospitalIn the event this information is protected by the Federal Confidentiality of Alcohol and Drug Abuse Patient Records regulations: The Federal rules restrict any use of the information to criminally investigate or prosecute any alcohol or drug abuse patient.[facility] HospitalIn the event this information is protected by the Federal Confidentiality of Alcohol and Drug Abuse Patient Records regulations: The Federal rules restrict any use of the information to criminally investigate or prosecute any alcohol or drug abuse patient.[facility] HospitalIn the event this information is protected by the Federal Confidentiality of Alcohol and Drug Abuse Patient Records regulations: The Federal rules restrict any use of the information to criminally investigate or prosecute any alcohol or drug abuse patient.[facility] HospitalIn the event this information is protected by the Federal Confidentiality of Alcohol and Drug Abuse Patient Records regulations: The Federal rules restrict any use of the information to criminally investigate or prosecute any alcohol or drug abuse patient.[facility] HospitalIn the event this information is protected by the Federal Confidentiality of Alcohol and Drug Abuse Patient Records regulations: The Federal rules restrict any use of the information to criminally investigate or prosecute any alcohol or drug abuse patient.[facility] HospitalIn the event this information is protected by the Federal Confidentiality of Alcohol and Drug Abuse Patient Records regulations: The Federal rules restrict any use of the information to criminally investigate or prosecute any alcohol or drug abuse patient.[facility] HospitalIn the event this information is protected by the Federal Confidentiality of Alcohol and Drug Abuse Patient Records regulations: The Federal rules restrict any use of the information to criminally investigate or prosecute any alcohol or drug abuse patient.[facility] HospitalIn the event this information is protected by the Federal Confidentiality of Alcohol and Drug Abuse Patient Records regulations: The Federal rules restrict any use of the information to criminally investigate or prosecute any alcohol or drug abuse patient.[facility] HospitalIn the event this information is protected by the Federal Confidentiality of Alcohol and Drug Abuse Patient Records regulations: The Federal rules restrict any use of the information to criminally investigate or prosecute any alcohol or drug abuse patient.[facility] HospitalIn the event this information is protected by the Federal Confidentiality of Alcohol and Drug Abuse Patient Records regulations: The Federal rules restrict any use of the information to criminally investigate or prosecute any alcohol or drug abuse patient.[facility] HospitalIn the event this information is protected by the Federal Confidentiality of Alcohol and Drug Abuse Patient Records regulations: The Federal rules restrict any use of the information to criminally investigate or prosecute any alcohol or drug abuse patient.[facility] HospitalIn the event this information is protected by the Federal Confidentiality of Alcohol and Drug Abuse Patient Records regulations: The Federal rules restrict any use of the information to criminally investigate or prosecute any alcohol or drug abuse patient.[facility] HospitalIn the event this information is protected by the Federal Confidentiality of Alcohol and Drug Abuse Patient Records regulations: The Federal rules restrict any use of the information to criminally investigate or prosecute any alcohol or drug abuse patient.[facility] HospitalIn the event this information is protected by the Federal Confidentiality of Alcohol and Drug Abuse Patient Records regulations: The Federal rules restrict any use of the information to criminally investigate or prosecute any alcohol or drug abuse patient.[facility] HospitalIn the event this information is protected by the Federal Confidentiality of Alcohol and Drug Abuse Patient Records regulations: The Federal rules restrict any use of the information to criminally investigate or prosecute any alcohol or drug abuse patient.[facility] HospitalIn the event this information is protected by the Federal Confidentiality of Alcohol and Drug Abuse Patient Records regulations: The Federal rules restrict any use of the information to criminally investigate or prosecute any alcohol or drug abuse patient.[facility] HospitalIn the event this information is protected by the Federal Confidentiality of Alcohol and Drug Abuse Patient Records regulations: The Federal rules restrict any use of the information to criminally investigate or prosecute any alcohol or drug abuse patient.[facility] HospitalIn the event this information is protected by the Federal Confidentiality of Alcohol and Drug Abuse Patient Records regulations: The Federal rules restrict any use of the information to criminally investigate or prosecute any alcohol or drug abuse patient.[facility] HospitalIn the event this information is protected by the Federal Confidentiality of Alcohol and Drug Abuse Patient Records regulations: The Federal rules restrict any use of the information to criminally investigate or prosecute any alcohol or drug abuse patient.[facility] HospitalIn the event this information is protected by the Federal Confidentiality of Alcohol and Drug Abuse Patient Records regulations: The Federal rules restrict any use of the information to criminally investigate or prosecute any alcohol or drug abuse patient.[facility] HospitalIn the event this information is protected by the Federal Confidentiality of Alcohol and Drug Abuse Patient Records regulations: The Federal rules restrict any use of the information to criminally investigate or prosecute any alcohol or drug abuse patient.[facility] HospitalIn the event this information is protected by the Federal Confidentiality of Alcohol and Drug Abuse Patient Records regulations: The Federal rules restrict any use of the information to criminally investigate or prosecute any alcohol or drug abuse patient.[facility] HospitalIn the event this information is protected by the Federal Confidentiality of Alcohol and Drug Abuse Patient Records regulations: The Federal rules restrict any use of the information to criminally investigate or prosecute any alcohol or drug abuse patient.[facility] HospitalIn the event this information is protected by the Federal Confidentiality of Alcohol and Drug Abuse Patient Records regulations: The Federal rules restrict any use of the information to criminally investigate or prosecute any alcohol or drug abuse patient.[facility] HospitalIn the event this information is protected by the Federal Confidentiality of Alcohol and Drug Abuse Patient Records regulations: The Federal rules restrict any use of the information to criminally investigate or prosecute any alcohol or drug abuse patient.[facility] HospitalIn the event this information is protected by the Federal Confidentiality of Alcohol and Drug Abuse Patient Records regulations: The Federal rules restrict any use of the information to criminally investigate or prosecute any alcohol or drug abuse patient.[facility] HospitalIn the event this information is protected by the Federal Confidentiality of Alcohol and Drug Abuse Patient Records regulations: The Federal rules restrict any use of the information to criminally investigate or prosecute any alcohol or drug abuse patient.[facility] HospitalIn the event this information is protected by the Federal Confidentiality of Alcohol and Drug Abuse Patient Records regulations: The Federal rules restrict any use of the information to criminally investigate or prosecute any alcohol or drug abuse patient.[facility] HospitalIn the event this information is protected by the Federal Confidentiality of Alcohol and Drug Abuse Patient Records regulations: The Federal rules restrict any use of the information to criminally investigate or prosecute any alcohol or drug abuse patient.[facility] HospitalIn the event this information is protected by the Federal Confidentiality of Alcohol and Drug Abuse Patient Records regulations: The Federal rules restrict any use of the information to criminally investigate or prosecute any alcohol or drug abuse patient.[facility] HospitalIn the event this information is protected by the Federal Confidentiality of Alcohol and Drug Abuse Patient Records regulations: The Federal rules restrict any use of the information to criminally investigate or prosecute any alcohol or drug abuse patient.[facility] HospitalIn the event this information is protected by the Federal Confidentiality of Alcohol and Drug Abuse Patient Records regulations: The Federal rules restrict any use of the information to criminally investigate or prosecute any alcohol or drug abuse patient.[facility] HospitalIn the event this information is protected by the Federal Confidentiality of Alcohol and Drug Abuse Patient Records regulations: The Federal rules restrict any use of the information to criminally investigate or prosecute any alcohol or drug abuse patient.[facility] HospitalIn the event this information is protected by the Federal Confidentiality of Alcohol and Drug Abuse Patient Records regulations: The Federal rules restrict any use of the information to criminally investigate or prosecute any alcohol or drug abuse patient.[facility] HospitalIn the event this information is protected by the Federal Confidentiality of Alcohol and Drug Abuse Patient Records regulations: The Federal rules restrict any use of the information to criminally investigate or prosecute any alcohol or drug abuse patient.[facility] HospitalIn the event this information is protected by the Federal Confidentiality of Alcohol and Drug Abuse Patient Records regulations: The Federal rules restrict any use of the information to criminally investigate or prosecute any alcohol or drug abuse patient.[facility] HospitalIn the event this information is protected by the Federal Confidentiality of Alcohol and Drug Abuse Patient Records regulations: The Federal rules restrict any use of the information to criminally investigate or prosecute any alcohol or drug abuse patient.[facility] HospitalIn the event this information is protected by the Federal Confidentiality of Alcohol and Drug Abuse Patient Records regulations: The Federal rules restrict any use of the information to criminally investigate or prosecute any alcohol or drug abuse patient.[facility] HospitalIn the event this information is protected by the Federal Confidentiality of Alcohol and Drug Abuse Patient Records regulations: The Federal rules restrict any use of the information to criminally investigate or prosecute any alcohol or drug abuse patient.[facility] HospitalIn the event this information is protected by the Federal Confidentiality of Alcohol and Drug Abuse Patient Records regulations: The Federal rules restrict any use of the information to criminally investigate or prosecute any alcohol or drug abuse patient.[facility] HospitalIn the event this information is protected by the Federal Confidentiality of Alcohol and Drug Abuse Patient Records regulations: The Federal rules restrict any use of the information to criminally investigate or prosecute any alcohol or drug abuse patient.[facility] HospitalIn the event this information is protected by the Federal Confidentiality of Alcohol and Drug Abuse Patient Records regulations: The Federal rules restrict any use of the information to criminally investigate or prosecute any alcohol or drug abuse patient.[facility] HospitalIn the event this information is protected by the Federal Confidentiality of Alcohol and Drug Abuse Patient Records regulations: The Federal rules restrict any use of the information to criminally investigate or prosecute any alcohol or drug abuse patient.[facility] HospitalIn the event this information is protected by the Federal Confidentiality of Alcohol and Drug Abuse Patient Records regulations: The Federal rules restrict any use of the information to criminally investigate or prosecute any alcohol or drug abuse patient.[facility] HospitalIn the event this information is protected by the Federal Confidentiality of Alcohol and Drug Abuse Patient Records regulations: The Federal rules restrict any use of the information to criminally investigate or prosecute any alcohol or drug abuse patient.[facility] HospitalIn the event this information is protected by the Federal Confidentiality of Alcohol and Drug Abuse Patient Records regulations: The Federal rules restrict any use of the information to criminally investigate or prosecute any alcohol or drug abuse patient.[facility] HospitalIn the event this information is protected by the Federal Confidentiality of Alcohol and Drug Abuse Patient Records regulations: The Federal rules restrict any use of the information to criminally investigate or prosecute any alcohol or drug abuse patient.[facility] HospitalIn the event this information is protected by the Federal Confidentiality of Alcohol and Drug Abuse Patient Records regulations: The Federal rules restrict any use of the information to criminally investigate or prosecute any alcohol or drug abuse patient.[facility] HospitalIn the event this information is protected by the Federal Confidentiality of Alcohol and Drug Abuse Patient Records regulations: The Federal rules restrict any use of the information to criminally investigate or prosecute any alcohol or drug abuse patient.[facility] HospitalIn the event this information is protected by the Federal Confidentiality of Alcohol and Drug Abuse Patient Records regulations: The Federal rules restrict any use of the information to criminally investigate or prosecute any alcohol or drug abuse patient.[facility] HospitalIn the event this information is protected by the Federal Confidentiality of Alcohol and Drug Abuse Patient Records regulations: The Federal rules restrict any use of the information to criminally investigate or prosecute any alcohol or drug abuse patient.[facility] HospitalIn the event this information is protected by the Federal Confidentiality of Alcohol and Drug Abuse Patient Records regulations: The Federal rules restrict any use of the information to criminally investigate or prosecute any alcohol or drug abuse patient.[facility] HospitalIn the event this information is protected by the Federal Confidentiality of Alcohol and Drug Abuse Patient Records regulations: The Federal rules restrict any use of the information to criminally investigate or prosecute any alcohol or drug abuse patient.[facility] HospitalIn the event this information is protected by the Federal Confidentiality of Alcohol and Drug Abuse Patient Records regulations: The Federal rules restrict any use of the information to criminally investigate or prosecute any alcohol or drug abuse patient.[facility] HospitalIn the event this information is protected by the Federal Confidentiality of Alcohol and Drug Abuse Patient Records regulations: The Federal rules restrict any use of the information to criminally investigate or prosecute any alcohol or drug abuse patient.[facility] HospitalIn the event this information is protected by the Federal Confidentiality of Alcohol and Drug Abuse Patient Records regulations: The Federal rules restrict any use of the information to criminally investigate or prosecute any alcohol or drug abuse patient.[facility] HospitalIn the event this information is protected by the Federal Confidentiality of Alcohol and Drug Abuse Patient Records regulations: The Federal rules restrict any use of the information to criminally investigate or prosecute any alcohol or drug abuse patient.[facility] HospitalIn the event this information is protected by the Federal Confidentiality of Alcohol and Drug Abuse Patient Records regulations: The Federal rules restrict any use of the information to criminally investigate or prosecute any alcohol or drug abuse patient.[facility] HospitalIn the event this information is protected by the Federal Confidentiality of Alcohol and Drug Abuse Patient Records regulations: The Federal rules restrict any use of the information to criminally investigate or prosecute any alcohol or drug abuse patient.[facility] HospitalIn the event this information is protected by the Federal Confidentiality of Alcohol and Drug Abuse Patient Records regulations: The Federal rules restrict any use of the information to criminally investigate or prosecute any alcohol or drug abuse patient.[facility] HospitalIn the event this information is protected by the Federal Confidentiality of Alcohol and Drug Abuse Patient Records regulations: The Federal rules restrict any use of the information to criminally investigate or prosecute any alcohol or drug abuse patient.[facility] HospitalIn the event this information is protected by the Federal Confidentiality of Alcohol and Drug Abuse Patient Records regulations: The Federal rules restrict any use of the information to criminally investigate or prosecute any alcohol or drug abuse patient.[facility] HospitalIn the event this information is protected by the Federal Confidentiality of Alcohol and Drug Abuse Patient Records regulations: The Federal rules restrict any use of the information to criminally investigate or prosecute any alcohol or drug abuse patient.[facility] HospitalIn the event this information is protected by the Federal Confidentiality of Alcohol and Drug Abuse Patient Records regulations: The Federal rules restrict any use of the information to criminally investigate or prosecute any alcohol or drug abuse patient.[facility] HospitalIn the event this information is protected by the Federal Confidentiality of Alcohol and Drug Abuse Patient Records regulations: The Federal rules restrict any use of the information to criminally investigate or prosecute any alcohol or drug abuse patient.[facility] HospitalIn the event this information is protected by the Federal Confidentiality of Alcohol and Drug Abuse Patient Records regulations: The Federal rules restrict any use of the information to criminally investigate or prosecute any alcohol or drug abuse patient.[facility] HospitalIn the event this information is protected by the Federal Confidentiality of Alcohol and Drug Abuse Patient Records regulations: The Federal rules restrict any use of the information to criminally investigate or prosecute any alcohol or drug abuse patient.[facility] HospitalIn the event this information is protected by the Federal Confidentiality of Alcohol and Drug Abuse Patient Records regulations: The Federal rules restrict any use of the information to criminally investigate or prosecute any alcohol or drug abuse patient.[facility] HospitalIn the event this information is protected by the Federal Confidentiality of Alcohol and Drug Abuse Patient Records regulations: The Federal rules restrict any use of the information to criminally investigate or prosecute any alcohol or drug abuse patient.[facility] HospitalIn the event this information is protected by the Federal Confidentiality of Alcohol and Drug Abuse Patient Records regulations: The Federal rules restrict any use of the information to criminally investigate or prosecute any alcohol or drug abuse patient.[facility] HospitalIn the event this information is protected by the Federal Confidentiality of Alcohol and Drug Abuse Patient Records regulations: The Federal rules restrict any use of the information to criminally investigate or prosecute any alcohol or drug abuse patient.[facility] HospitalIn the event this information is protected by the Federal Confidentiality of Alcohol and Drug Abuse Patient Records regulations: The Federal rules restrict any use of the information to criminally investigate or prosecute any alcohol or drug abuse patient.[facility] HospitalIn the event this information is protected by the Federal Confidentiality of Alcohol and Drug Abuse Patient Records regulations: The Federal rules restrict any use of the information to criminally investigate or prosecute any alcohol or drug abuse patient.[facility] HospitalIn the event this information is protected by the Federal Confidentiality of Alcohol and Drug Abuse Patient Records regulations: The Federal rules restrict any use of the information to criminally investigate or prosecute any alcohol or drug abuse patient.[facility] HospitalIn the event this information is protected by the Federal Confidentiality of Alcohol and Drug Abuse Patient Records regulations: The Federal rules restrict any use of the information to criminally investigate or prosecute any alcohol or drug abuse patient.[facility] HospitalIn the event this information is protected by the Federal Confidentiality of Alcohol and Drug Abuse Patient Records regulations: The Federal rules restrict any use of the information to criminally investigate or prosecute any alcohol or drug abuse patient.[facility] HospitalIn the event this information is protected by the Federal Confidentiality of Alcohol and Drug Abuse Patient Records regulations: The Federal rules restrict any use of the information to criminally investigate or prosecute any alcohol or drug abuse patient.[facility] HospitalIn the event this information is protected by the Federal Confidentiality of Alcohol and Drug Abuse Patient Records regulations: The Federal rules restrict any use of the information to criminally investigate or prosecute any alcohol or drug abuse patient.[facility] HospitalIn the event this information is protected by the Federal Confidentiality of Alcohol and Drug Abuse Patient Records regulations: The Federal rules restrict any use of the information to criminally investigate or prosecute any alcohol or drug abuse patient.[facility] HospitalIn the event this information is protected by the Federal Confidentiality of Alcohol and Drug Abuse Patient Records regulations: The Federal rules restrict any use of the information to criminally investigate or prosecute any alcohol or drug abuse patient.[facility] HospitalIn the event this information is protected by the Federal Confidentiality of Alcohol and Drug Abuse Patient Records regulations: The Federal rules restrict any use of the information to criminally investigate or prosecute any alcohol or drug abuse patient.[facility] HospitalIn the event this information is protected by the Federal Confidentiality of Alcohol and Drug Abuse Patient Records regulations: The Federal rules restrict any use of the information to criminally investigate or prosecute any alcohol or drug abuse patient.[facility] HospitalIn the event this information is protected by the Federal Confidentiality of Alcohol and Drug Abuse Patient Records regulations: The Federal rules restrict any use of the information to criminally investigate or prosecute any alcohol or drug abuse patient.[facility] HospitalIn the event this information is protected by the Federal Confidentiality of Alcohol and Drug Abuse Patient Records regulations: The Federal rules restrict any use of the information to criminally investigate or prosecute any alcohol or drug abuse patient.[facility] HospitalIn the event this information is protected by the Federal Confidentiality of Alcohol and Drug Abuse Patient Records regulations: The Federal rules restrict any use of the information to criminally investigate or prosecute any alcohol or drug abuse patient.[facility] HospitalIn the event this information is protected by the Federal Confidentiality of Alcohol and Drug Abuse Patient Records regulations: The Federal rules restrict any use of the information to criminally investigate or prosecute any alcohol or drug abuse patient.[facility] HospitalIn the event this information is protected by the Federal Confidentiality of Alcohol and Drug Abuse Patient Records regulations: The Federal rules restrict any use of the information to criminally investigate or prosecute any alcohol or drug abuse patient.[facility] HospitalIn the event this information is protected by the Federal Confidentiality of Alcohol and Drug Abuse Patient Records regulations: The Federal rules restrict any use of the information to criminally investigate or prosecute any alcohol or drug abuse patient.[facility] HospitalIn the event this information is protected by the Federal Confidentiality of Alcohol and Drug Abuse Patient Records regulations: The Federal rules restrict any use of the information to criminally investigate or prosecute any alcohol or drug abuse patient.[facility] HospitalIn the event this information is protected by the Federal Confidentiality of Alcohol and Drug Abuse Patient Records regulations: The Federal rules restrict any use of the information to criminally investigate or prosecute any alcohol or drug abuse patient.[facility] HospitalIn the event this information is protected by the Federal Confidentiality of Alcohol and Drug Abuse Patient Records regulations: The Federal rules restrict any use of the information to criminally investigate or prosecute any alcohol or drug abuse patient.[facility] HospitalIn the event this information is protected by the Federal Confidentiality of Alcohol and Drug Abuse Patient Records regulations: The Federal rules restrict any use of the information to criminally investigate or prosecute any alcohol or drug abuse patient.[facility] HospitalIn the event this information is protected by the Federal Confidentiality of Alcohol and Drug Abuse Patient Records regulations: The Federal rules restrict any use of the information to criminally investigate or prosecute any alcohol or drug abuse patient.[facility] HospitalIn the event this information is protected by the Federal Confidentiality of Alcohol and Drug Abuse Patient Records regulations: The Federal rules restrict any use of the information to criminally investigate or prosecute any alcohol or drug abuse patient.[facility] HospitalIn the event this information is protected by the Federal Confidentiality of Alcohol and Drug Abuse Patient Records regulations: The Federal rules restrict any use of the information to criminally investigate or prosecute any alcohol or drug abuse patient.[facility] HospitalIn the event this information is protected by the Federal Confidentiality of Alcohol and Drug Abuse Patient Records regulations: The Federal rules restrict any use of the information to criminally investigate or prosecute any alcohol or drug abuse patient.[facility] HospitalIn the event this information is protected by the Federal Confidentiality of Alcohol and Drug Abuse Patient Records regulations: The Federal rules restrict any use of the information to criminally investigate or prosecute any alcohol or drug abuse patient.[facility] HospitalIn the event this information is protected by the Federal Confidentiality of Alcohol and Drug Abuse Patient Records regulations: The Federal rules restrict any use of the information to criminally investigate or prosecute any alcohol or drug abuse patient.[facility] HospitalIn the event this information is protected by the Federal Confidentiality of Alcohol and Drug Abuse Patient Records regulations: The Federal rules restrict any use of the information to criminally investigate or prosecute any alcohol or drug abuse patient.[facility] HospitalIn the event this information is protected by the Federal Confidentiality of Alcohol and Drug Abuse Patient Records regulations: The Federal rules restrict any use of the information to criminally investigate or prosecute any alcohol or drug abuse patient.[facility] HospitalIn the event this information is protected by the Federal Confidentiality of Alcohol and Drug Abuse Patient Records regulations: The Federal rules restrict any use of the information to criminally investigate or prosecute any alcohol or drug abuse patient.[facility] HospitalIn the event this information is protected by the Federal Confidentiality of Alcohol and Drug Abuse Patient Records regulations: The Federal rules restrict any use of the information to criminally investigate or prosecute any alcohol or drug abuse patient.[facility] HospitalIn the event this information is protected by the Federal Confidentiality of Alcohol and Drug Abuse Patient Records regulations: The Federal rules restrict any use of the information to criminally investigate or prosecute any alcohol or drug abuse patient.[facility] HospitalIn the event this information is protected by the Federal Confidentiality of Alcohol and Drug Abuse Patient Records regulations: The Federal rules restrict any use of the information to criminally investigate or prosecute any alcohol or drug abuse patient.[facility] HospitalIn the event this information is protected by the Federal Confidentiality of Alcohol and Drug Abuse Patient Records regulations: The Federal rules restrict any use of the information to criminally investigate or prosecute any alcohol or drug abuse patient.[facility] HospitalIn the event this information is protected by the Federal Confidentiality of Alcohol and Drug Abuse Patient Records regulations: The Federal rules restrict any use of the information to criminally investigate or prosecute any alcohol or drug abuse patient.[facility] HospitalIn the event this information is protected by the Federal Confidentiality of Alcohol and Drug Abuse Patient Records regulations: The Federal rules restrict any use of the information to criminally investigate or prosecute any alcohol or drug abuse patient.[facility] HospitalIn the event this information is protected by the Federal Confidentiality of Alcohol and Drug Abuse Patient Records regulations: The Federal rules restrict any use of the information to criminally investigate or prosecute any alcohol or drug abuse patient.[facility] HospitalIn the event this information is protected by the Federal Confidentiality of Alcohol and Drug Abuse Patient Records regulations: The Federal rules restrict any use of the information to criminally investigate or prosecute any alcohol or drug abuse patient.[facility] HospitalIn the event this information is protected by the Federal Confidentiality of Alcohol and Drug Abuse Patient Records regulations: The Federal rules restrict any use of the information to criminally investigate or prosecute any alcohol or drug abuse patient.[facility] HospitalIn the event this information is protected by the Federal Confidentiality of Alcohol and Drug Abuse Patient Records regulations: The Federal rules restrict any use of the information to criminally investigate or prosecute any alcohol or drug abuse patient.[facility] HospitalIn the event this information is protected by the Federal Confidentiality of Alcohol and Drug Abuse Patient Records regulations: The Federal rules restrict any use of the information to criminally investigate or prosecute any alcohol or drug abuse patient.[facility] HospitalIn the event this information is protected by the Federal Confidentiality of Alcohol and Drug Abuse Patient Records regulations: The Federal rules restrict any use of the information to criminally investigate or prosecute any alcohol or drug abuse patient.[facility] HospitalIn the event this information is protected by the Federal Confidentiality of Alcohol and Drug Abuse Patient Records regulations: The Federal rules restrict any use of the information to criminally investigate or prosecute any alcohol or drug abuse patient.[facility] HospitalIn the event this information is protected by the Federal Confidentiality of Alcohol and Drug Abuse Patient Records regulations: The Federal rules restrict any use of the information to criminally investigate or prosecute any alcohol or drug abuse patient.[facility] HospitalIn the event this information is protected by the Federal Confidentiality of Alcohol and Drug Abuse Patient Records regulations: The Federal rules restrict any use of the information to criminally investigate or prosecute any alcohol or drug abuse patient.[facility] HospitalIn the event this information is protected by the Federal Confidentiality of Alcohol and Drug Abuse Patient Records regulations: The Federal rules restrict any use of the information to criminally investigate or prosecute any alcohol or drug abuse patient.[facility] HospitalIn the event this information is protected by the Federal Confidentiality of Alcohol and Drug Abuse Patient Records regulations: The Federal rules restrict any use of the information to criminally investigate or prosecute any alcohol or drug abuse patient.[facility] HospitalIn the event this information is protected by the Federal Confidentiality of Alcohol and Drug Abuse Patient Records regulations: The Federal rules restrict any use of the information to criminally investigate or prosecute any alcohol or drug abuse patient.[facility] HospitalIn the event this information is protected by the Federal Confidentiality of Alcohol and Drug Abuse Patient Records regulations: The Federal rules restrict any use of the information to criminally investigate or prosecute any alcohol or drug abuse patient.[facility] HospitalIn the event this information is protected by the Federal Confidentiality of Alcohol and Drug Abuse Patient Records regulations: The Federal rules restrict any use of the information to criminally investigate or prosecute any alcohol or drug abuse patient.[facility] HospitalIn the event this information is protected by the Federal Confidentiality of Alcohol and Drug Abuse Patient Records regulations: The Federal rules restrict any use of the information to criminally investigate or prosecute any alcohol or drug abuse patient.[facility] HospitalIn the event this information is protected by the Federal Confidentiality of Alcohol and Drug Abuse Patient Records regulations: The Federal rules restrict any use of the information to criminally investigate or prosecute any alcohol or drug abuse patient.[facility] HospitalIn the event this information is protected by the Federal Confidentiality of Alcohol and Drug Abuse Patient Records regulations: The Federal rules restrict any use of the information to criminally investigate or prosecute any alcohol or drug abuse patient.[facility] HospitalIn the event this information is protected by the Federal Confidentiality of Alcohol and Drug Abuse Patient Records regulations: The Federal rules restrict any use of the information to criminally investigate or prosecute any alcohol or drug abuse patient.[facility] HospitalIn the event this information is protected by the Federal Confidentiality of Alcohol and Drug Abuse Patient Records regulations: The Federal rules restrict any use of the information to criminally investigate or prosecute any alcohol or drug abuse patient.[facility] HospitalIn the event this information is protected by the Federal Confidentiality of Alcohol and Drug Abuse Patient Records regulations: The Federal rules restrict any use of the information to criminally investigate or prosecute any alcohol or drug abuse patient.[facility] HospitalIn the event this information is protected by the Federal Confidentiality of Alcohol and Drug Abuse Patient Records regulations: The Federal rules restrict any use of the information to criminally investigate or prosecute any alcohol or drug abuse patient.[facility] HospitalIn the event this information is protected by the Federal Confidentiality of Alcohol and Drug Abuse Patient Records regulations: The Federal rules restrict any use of the information to criminally investigate or prosecute any alcohol or drug abuse patient.[facility] HospitalIn the event this information is protected by the Federal Confidentiality of Alcohol and Drug Abuse Patient Records regulations: The Federal rules restrict any use of the information to criminally investigate or prosecute any alcohol or drug abuse patient.[facility] HospitalIn the event this information is protected by the Federal Confidentiality of Alcohol and Drug Abuse Patient Records regulations: The Federal rules restrict any use of the information to criminally investigate or prosecute any alcohol or drug abuse patient.[facility] HospitalIn the event this information is protected by the Federal Confidentiality of Alcohol and Drug Abuse Patient Records regulations: The Federal rules restrict any use of the information to criminally investigate or prosecute any alcohol or drug abuse patient.[facility] HospitalIn the event this information is protected by the Federal Confidentiality of Alcohol and Drug Abuse Patient Records regulations: The Federal rules restrict any use of the information to criminally investigate or prosecute any alcohol or drug abuse patient.[facility] HospitalIn the event this information is protected by the Federal Confidentiality of Alcohol and Drug Abuse Patient Records regulations: The Federal rules restrict any use of the information to criminally investigate or prosecute any alcohol or drug abuse patient.[facility] HospitalIn the event this information is protected by the Federal Confidentiality of Alcohol and Drug Abuse Patient Records regulations: The Federal rules restrict any use of the information to criminally investigate or prosecute any alcohol or drug abuse patient.[facility] HospitalIn the event this information is protected by the Federal Confidentiality of Alcohol and Drug Abuse Patient Records regulations: The Federal rules restrict any use of the information to criminally investigate or prosecute any alcohol or drug abuse patient.[facility] HospitalIn the event this information is protected by the Federal Confidentiality of Alcohol and Drug Abuse Patient Records regulations: The Federal rules restrict any use of the information to criminally investigate or prosecute any alcohol or drug abuse patient.[facility] HospitalIn the event this information is protected by the Federal Confidentiality of Alcohol and Drug Abuse Patient Records regulations: The Federal rules restrict any use of the information to criminally investigate or prosecute any alcohol or drug abuse patient.[facility] HospitalIn the event this information is protected by the Federal Confidentiality of Alcohol and Drug Abuse Patient Records regulations: The Federal rules restrict any use of the information to criminally investigate or prosecute any alcohol or drug abuse patient.[facility] HospitalIn the event this information is protected by the Federal Confidentiality of Alcohol and Drug Abuse Patient Records regulations: The Federal rules restrict any use of the information to criminally investigate or prosecute any alcohol or drug abuse patient.[facility] HospitalIn the event this information is protected by the Federal Confidentiality of Alcohol and Drug Abuse Patient Records regulations: The Federal rules restrict any use of the information to criminally investigate or prosecute any alcohol or drug abuse patient.[facility] HospitalIn the event this information is protected by the Federal Confidentiality of Alcohol and Drug Abuse Patient Records regulations: The Federal rules restrict any use of the information to criminally investigate or prosecute any alcohol or drug abuse patient.[facility] HospitalIn the event this information is protected by the Federal Confidentiality of Alcohol and Drug Abuse Patient Records regulations: The Federal rules restrict any use of the information to criminally investigate or prosecute any alcohol or drug abuse patient.[facility] HospitalIn the event this information is protected by the Federal Confidentiality of Alcohol and Drug Abuse Patient Records regulations: The Federal rules restrict any use of the information to criminally investigate or prosecute any alcohol or drug abuse patient.[facility] HospitalIn the event this information is protected by the Federal Confidentiality of Alcohol and Drug Abuse Patient Records regulations: The Federal rules restrict any use of the information to criminally investigate or prosecute any alcohol or drug abuse patient.[facility] HospitalIn the event this information is protected by the Federal Confidentiality of Alcohol and Drug Abuse Patient Records regulations: The Federal rules restrict any use of the information to criminally investigate or prosecute any alcohol or drug abuse patient.[facility] HospitalIn the event this information is protected by the Federal Confidentiality of Alcohol and Drug Abuse Patient Records regulations: The Federal rules restrict any use of the information to criminally investigate or prosecute any alcohol or drug abuse patient.[facility] HospitalIn the event this information is protected by the Federal Confidentiality of Alcohol and Drug Abuse Patient Records regulations: The Federal rules restrict any use of the information to criminally investigate or prosecute any alcohol or drug abuse patient.[facility] HospitalIn the event this information is protected by the Federal Confidentiality of Alcohol and Drug Abuse Patient Records regulations: The Federal rules restrict any use of the information to criminally investigate or prosecute any alcohol or drug abuse patient.[facility] HospitalIn the event this information is protected by the Federal Confidentiality of Alcohol and Drug Abuse Patient Records regulations: The Federal rules restrict any use of the information to criminally investigate or prosecute any alcohol or drug abuse patient.[facility] HospitalIn the event this information is protected by the Federal Confidentiality of Alcohol and Drug Abuse Patient Records regulations: The Federal rules restrict any use of the information to criminally investigate or prosecute any alcohol or drug abuse patient.[facility] HospitalIn the event this information is protected by the Federal Confidentiality of Alcohol and Drug Abuse Patient Records regulations: The Federal rules restrict any use of the information to criminally investigate or prosecute any alcohol or drug abuse patient.[facility] HospitalIn the event this information is protected by the Federal Confidentiality of Alcohol and Drug Abuse Patient Records regulations: The Federal rules restrict any use of the information to criminally investigate or prosecute any alcohol or drug abuse patient.[facility] HospitalIn the event this information is protected by the Federal Confidentiality of Alcohol and Drug Abuse Patient Records regulations: The Federal rules restrict any use of the information to criminally investigate or prosecute any alcohol or drug abuse patient.[facility] HospitalIn the event this information is protected by the Federal Confidentiality of Alcohol and Drug Abuse Patient Records regulations: The Federal rules restrict any use of the information to criminally investigate or prosecute any alcohol or drug abuse patient.[facility] HospitalIn the event this information is protected by the Federal Confidentiality of Alcohol and Drug Abuse Patient Records regulations: The Federal rules restrict any use of the information to criminally investigate or prosecute any alcohol or drug abuse patient.[facility] HospitalIn the event this information is protected by the Federal Confidentiality of Alcohol and Drug Abuse Patient Records regulations: The Federal rules restrict any use of the information to criminally investigate or prosecute any alcohol or drug abuse patient.[facility] HospitalIn the event this information is protected by the Federal Confidentiality of Alcohol and Drug Abuse Patient Records regulations: The Federal rules restrict any use of the information to criminally investigate or prosecute any alcohol or drug abuse patient.[facility] HospitalIn the event this information is protected by the Federal Confidentiality of Alcohol and Drug Abuse Patient Records regulations: The Federal rules restrict any use of the information to criminally investigate or prosecute any alcohol or drug abuse patient.[facility] HospitalIn the event this information is protected by the Federal Confidentiality of Alcohol and Drug Abuse Patient Records regulations: The Federal rules restrict any use of the information to criminally investigate or prosecute any alcohol or drug abuse patient.[facility] HospitalIn the event this information is protected by the Federal Confidentiality of Alcohol and Drug Abuse Patient Records regulations: The Federal rules restrict any use of the information to criminally investigate or prosecute any alcohol or drug abuse patient.[facility] HospitalIn the event this information is protected by the Federal Confidentiality of Alcohol and Drug Abuse Patient Records regulations: The Federal rules restrict any use of the information to criminally investigate or prosecute any alcohol or drug abuse patient.[facility] HospitalIn the event this information is protected by the Federal Confidentiality of Alcohol and Drug Abuse Patient Records regulations: The Federal rules restrict any use of the information to criminally investigate or prosecute any alcohol or drug abuse patient.[facility] HospitalIn the event this information is protected by the Federal Confidentiality of Alcohol and Drug Abuse Patient Records regulations: The Federal rules restrict any use of the information to criminally investigate or prosecute any alcohol or drug abuse patient.[facility] HospitalIn the event this information is protected by the Federal Confidentiality of Alcohol and Drug Abuse Patient Records regulations: The Federal rules restrict any use of the information to criminally investigate or prosecute any alcohol or drug abuse patient.[facility] HospitalIn the event this information is protected by the Federal Confidentiality of Alcohol and Drug Abuse Patient Records regulations: The Federal rules restrict any use of the information to criminally investigate or prosecute any alcohol or drug abuse patient.[facility] HospitalIn the event this information is protected by the Federal Confidentiality of Alcohol and Drug Abuse Patient Records regulations: The Federal rules restrict any use of the information to criminally investigate or prosecute any alcohol or drug abuse patient.[facility] HospitalIn the event this information is protected by the Federal Confidentiality of Alcohol and Drug Abuse Patient Records regulations: The Federal rules restrict any use of the information to criminally investigate or prosecute any alcohol or drug abuse patient.[facility] HospitalIn the event this information is protected by the Federal Confidentiality of Alcohol and Drug Abuse Patient Records regulations: The Federal rules restrict any use of the information to criminally investigate or prosecute any alcohol or drug abuse patient.[facility] HospitalIn the event this information is protected by the Federal Confidentiality of Alcohol and Drug Abuse Patient Records regulations: The Federal rules restrict any use of the information to criminally investigate or prosecute any alcohol or drug abuse patient.[facility] HospitalIn the event this information is protected by the Federal Confidentiality of Alcohol and Drug Abuse Patient Records regulations: The Federal rules restrict any use of the information to criminally investigate or prosecute any alcohol or drug abuse patient.[facility] HospitalIn the event this information is protected by the Federal Confidentiality of Alcohol and Drug Abuse Patient Records regulations: The Federal rules restrict any use of the information to criminally investigate or prosecute any alcohol or drug abuse patient.[facility] HospitalIn the event this information is protected by the Federal Confidentiality of Alcohol and Drug Abuse Patient Records regulations: The Federal rules restrict any use of the information to criminally investigate or prosecute any alcohol or drug abuse patient.[facility] HospitalIn the event this information is protected by the Federal Confidentiality of Alcohol and Drug Abuse Patient Records regulations: The Federal rules restrict any use of the information to criminally investigate or prosecute any alcohol or drug abuse patient.[facility] HospitalIn the event this information is protected by the Federal Confidentiality of Alcohol and Drug Abuse Patient Records regulations: The Federal rules restrict any use of the information to criminally investigate or prosecute any alcohol or drug abuse patient.[facility] HospitalIn the event this information is protected by the Federal Confidentiality of Alcohol and Drug Abuse Patient Records regulations: The Federal rules restrict any use of the information to criminally investigate or prosecute any alcohol or drug abuse patient.[facility] HospitalIn the event this information is protected by the Federal Confidentiality of Alcohol and Drug Abuse Patient Records regulations: The Federal rules restrict any use of the information to criminally investigate or prosecute any alcohol or drug abuse patient.[facility] HospitalIn the event this information is protected by the Federal Confidentiality of Alcohol and Drug Abuse Patient Records regulations: The Federal rules restrict any use of the information to criminally investigate or prosecute any alcohol or drug abuse patient.[facility] HospitalIn the event this information is protected by the Federal Confidentiality of Alcohol and Drug Abuse Patient Records regulations: The Federal rules restrict any use of the information to criminally investigate or prosecute any alcohol or drug abuse patient.[facility] HospitalIn the event this information is protected by the Federal Confidentiality of Alcohol and Drug Abuse Patient Records regulations: The Federal rules restrict any use of the information to criminally investigate or prosecute any alcohol or drug abuse patient.[facility] HospitalIn the event this information is protected by the Federal Confidentiality of Alcohol and Drug Abuse Patient Records regulations: The Federal rules restrict any use of the information to criminally investigate or prosecute any alcohol or drug abuse patient.[facility] HospitalIn the event this information is protected by the Federal Confidentiality of Alcohol and Drug Abuse Patient Records regulations: The Federal rules restrict any use of the information to criminally investigate or prosecute any alcohol or drug abuse patient.[facility] HospitalIn the event this information is protected by the Federal Confidentiality of Alcohol and Drug Abuse Patient Records regulations: The Federal rules restrict any use of the information to criminally investigate or prosecute any alcohol or drug abuse patient.[facility] HospitalIn the event this information is protected by the Federal Confidentiality of Alcohol and Drug Abuse Patient Records regulations: The Federal rules restrict any use of the information to criminally investigate or prosecute any alcohol or drug abuse patient.[facility] HospitalIn the event this information is protected by the Federal Confidentiality of Alcohol and Drug Abuse Patient Records regulations: The Federal rules restrict any use of the information to criminally investigate or prosecute any alcohol or drug abuse patient.[facility] HospitalIn the event this information is protected by the Federal Confidentiality of Alcohol and Drug Abuse Patient Records regulations: The Federal rules restrict any use of the information to criminally investigate or prosecute any alcohol or drug abuse patient.[facility] HospitalIn the event this information is protected by the Federal Confidentiality of Alcohol and Drug Abuse Patient Records regulations: The Federal rules restrict any use of the information to criminally investigate or prosecute any alcohol or drug abuse patient.[facility] HospitalIn the event this information is protected by the Federal Confidentiality of Alcohol and Drug Abuse Patient Records regulations: The Federal rules restrict any use of the information to criminally investigate or prosecute any alcohol or drug abuse patient.[facility] HospitalIn the event this information is protected by the Federal Confidentiality of Alcohol and Drug Abuse Patient Records regulations: The Federal rules restrict any use of the information to criminally investigate or prosecute any alcohol or drug abuse patient.[facility] HospitalIn the event this information is protected by the Federal Confidentiality of Alcohol and Drug Abuse Patient Records regulations: The Federal rules restrict any use of the information to criminally investigate or prosecute any alcohol or drug abuse patient.[facility] HospitalIn the event this information is protected by the Federal Confidentiality of Alcohol and Drug Abuse Patient Records regulations: The Federal rules restrict any use of the information to criminally investigate or prosecute any alcohol or drug abuse patient.[facility] HospitalIn the event this information is protected by the Federal Confidentiality of Alcohol and Drug Abuse Patient Records regulations: The Federal rules restrict any use of the information to criminally investigate or prosecute any alcohol or drug abuse patient.[facility] HospitalIn the event this information is protected by the Federal Confidentiality of Alcohol and Drug Abuse Patient Records regulations: The Federal rules restrict any use of the information to criminally investigate or prosecute any alcohol or drug abuse patient.[facility] HospitalIn the event this information is protected by the Federal Confidentiality of Alcohol and Drug Abuse Patient Records regulations: The Federal rules restrict any use of the information to criminally investigate or prosecute any alcohol or drug abuse patient.[facility] HospitalIn the event this information is protected by the Federal Confidentiality of Alcohol and Drug Abuse Patient Records regulations: The Federal rules restrict any use of the information to criminally investigate or prosecute any alcohol or drug abuse patient.[facility] HospitalIn the event this information is protected by the Federal Confidentiality of Alcohol and Drug Abuse Patient Records regulations: The Federal rules restrict any use of the information to criminally investigate or prosecute any alcohol or drug abuse patient.[facility] HospitalIn the event this information is protected by the Federal Confidentiality of Alcohol and Drug Abuse Patient Records regulations: The Federal rules restrict any use of the information to criminally investigate or prosecute any alcohol or drug abuse patient.[facility] HospitalIn the event this information is protected by the Federal Confidentiality of Alcohol and Drug Abuse Patient Records regulations: The Federal rules restrict any use of the information to criminally investigate or prosecute any alcohol or drug abuse patient.[facility] HospitalIn the event this information is protected by the Federal Confidentiality of Alcohol and Drug Abuse Patient Records regulations: The Federal rules restrict any use of the information to criminally investigate or prosecute any alcohol or drug abuse patient.[facility] HospitalIn the event this information is protected by the Federal Confidentiality of Alcohol and Drug Abuse Patient Records regulations: The Federal rules restrict any use of the information to criminally investigate or prosecute any alcohol or drug abuse patient.[facility] HospitalIn the event this information is protected by the Federal Confidentiality of Alcohol and Drug Abuse Patient Records regulations: The Federal rules restrict any use of the information to criminally investigate or prosecute any alcohol or drug abuse patient.[facility] HospitalIn the event this information is protected by the Federal Confidentiality of Alcohol and Drug Abuse Patient Records regulations: The Federal rules restrict any use of the information to criminally investigate or prosecute any alcohol or drug abuse patient.[facility] HospitalIn the event this information is protected by the Federal Confidentiality of Alcohol and Drug Abuse Patient Records regulations: The Federal rules restrict any use of the information to criminally investigate or prosecute any alcohol or drug abuse patient.[facility] HospitalIn the event this information is protected by the Federal Confidentiality of Alcohol and Drug Abuse Patient Records regulations: The Federal rules restrict any use of the information to criminally investigate or prosecute any alcohol or drug abuse patient.[facility] HospitalIn the event this information is protected by the Federal Confidentiality of Alcohol and Drug Abuse Patient Records regulations: The Federal rules restrict any use of the information to criminally investigate or prosecute any alcohol or drug abuse patient.[facility] HospitalIn the event this information is protected by the Federal Confidentiality of Alcohol and Drug Abuse Patient Records regulations: The Federal rules restrict any use of the information to criminally investigate or prosecute any alcohol or drug abuse patient.[facility] HospitalIn the event this information is protected by the Federal Confidentiality of Alcohol and Drug Abuse Patient Records regulations: The Federal rules restrict any use of the information to criminally investigate or prosecute any alcohol or drug abuse patient.[facility] HospitalIn the event this information is protected by the Federal Confidentiality of Alcohol and Drug Abuse Patient Records regulations: The Federal rules restrict any use of the information to criminally investigate or prosecute any alcohol or drug abuse patient.[facility] HospitalIn the event this information is protected by the Federal Confidentiality of Alcohol and Drug Abuse Patient Records regulations: The Federal rules restrict any use of the information to criminally investigate or prosecute any alcohol or drug abuse patient.[facility] HospitalIn the event this information is protected by the Federal Confidentiality of Alcohol and Drug Abuse Patient Records regulations: The Federal rules restrict any use of the information to criminally investigate or prosecute any alcohol or drug abuse patient.[facility] Reason for Visit (unrecogniz ed section [...] behavioral health social work Reason Comments Consult [facility] Returning Pt's Vm Reason Comments Consult [facility] Assessment Virt ual Reason Comments Wound Care Reason Comments Orders Reason Comments Office Notes Reason Comments Medication Request Reason Comments Non-Chemotherapy Treatment Specialty Diagnoses / Procedures Referred By Contac t Referred To Contact Diagnoses Iron deficiency anemia, unspecified iron deficiency anemia type Chronic hepatitis, unspecified (HCC) Procedures IRON SUCROSE INJECTION PER 1 MG Erica Cannon MD [address] [place] [address] [facility] [address] [place] [address] Referral ID Status Reason Start Date Expiration Date V isits Requested Visits Authorized [id number] Authorized 07/16/2021 02/13/2022 99 99 Reason Comments Follow Up Reason Comments Opened In Error Reason Comments Missed Appointment Reason Comments Results Reason Comments Clinical Update Reason Onset Date Comments Population Health Navigation Outreach 10/17/2021 HCC Reason Onset Date Comments Refill Request 02/06/2022 Reason Comments Patient Question Reason Comments Home Health orders Reason Comments home health calling for verbal orders Reason Comments Appointment Reason Comments Medication Problem Patient Update Reason Comments Follow Up Was in rehab at [facility] [address] Wound Care Reason Onset Date Comments Refill [...] Comments Blood Sugar Reading Reason Comments [facility] order request Reason Comments No Show Reason [...] Comments Home Care Management 08/24/2022 [facility] 05/[id number] Reason Comments Patient Update From yesterday Reason Comments Hospital F/U [facility] follow up Reason Comments Post-op (Ophthalmology) Left [...] Home Health Orders Reason Comments ER F/U [facility] ER 08/04/2023 fo r possible kidney stone [...] NONINVASIVE EAR/PULSE OXIMETRY MULTIPLE DETER Silvestre Jain APRN.[facility] [address] [place] [address] [facility] [place] [address] [place] [id number] Referral ID Status Reason Start Date Expiration Date V isits Requested Visits Authorized [id number] Closed Auto-Generate d Referral 11/21/2023 12/20/2024 1 1 Reason Onset Date Comments Refill Request 11/28/2023 Reason Comments F/U 3 Month Reason Onset Date Comments Refill Request 12/26/2023 Reason Comments Patient Update went to [facility] ER Reason Onset Date Comments Refill Request [...] Patient Specialty Diagnoses / Procedures Referred By Contac t Referred To Contact Diagnoses Iron deficiency anemia, unspecified iron deficiency anemia type Procedures CONSULT TO HEMATOLOGY/ONCOLOGY OFFICE/OUTPATIENT [facility] 60 MINUTES Silvestre Jain APRN.[facility] [address] [place] [address] Phone: tel: fax: Referral ID Status Reason Start Date Expiration Date V isits Requested Visits Authorized [id number] Closed PCP Requested Referral 08/18/2024 08/18/2025 1 [...] Results Specialty Diagnoses / Procedures Referred By Contac t Referred To Contact Diagnoses Iron malabsorption (HCC) Anemia associated with stage 3 chronic renal failure (HCC) Rj Dempsey, [address] [place] [address] Phone: tel: fax: Hematology/Oncology [address] [place] [address] Phone: tel: fax: Referral ID Status Reason Start Date Expiration Date V isits Requested Visits Authorized [id number] Authorized 11/03/2024 02/23/2025 1 99 Care Teams (unrecognized sec tion and content) Rehab Liaison Relationship Specialty Start Date End Date Erica Cannon MD [address] [place] [address] PCP - General Internal Medicine 11/27/10 Rehab Liaison Relationship Specialty Start Date End Date Erica Cannon MD [address] [place] [address] PCP - General Internal Medicine 11/27/10 Rehab Liaison Relationship Specialty Start Date End Date Erica Cannon MD [address] [place] [address] PCP - General Internal Medicine 11/27/10 Rehab Liaison Relationship Specialty Start Date End Date Erica Cannon MD [facility] [place] [address] PCP - General Internal Medicine 11/27/10 Rehab Liaison Relationship Specialty Start Date End Date Erica Cannon MD [facility] [place] [address] PCP - General Internal Medicine 11/27/10 Rehab Liaison Relationship Specialty Start Date End Date Erica Cannon MD [facility] [place] [address] PCP - General Internal Medicine 11/27/10 Rehab Liaison Relationship Specialty Start Date End Date Erica Cannon MD [facility] [place] [address] PCP - General Internal Medicine 11/27/10 Rehab Liaison Relationship Specialty Start Date End Date Erica Cannon MD [facility] [place] [address] PCP - General Internal Medicine 11/27/10 Rehab Liaison Relationship Specialty Start Date End Date Erica Cannon MD [address] [place] [address], [place] [address] PCP - General Internal Medicine 11/27/10 Rehab Liaison Relationship Specialty Start Date End Date Erica Cannon MD [address] [place] [address], [place] [address] PCP - General Internal Medicine 11/27/10 Rehab Liaison Relationship Specialty Start Date End Date rEica Cannon MD [address] [place] [address], [place] [address] PCP - General Internal Medicine 11/27/10 Rehab Liaison Relationship Specialty Start Date End Date Erica Cannon MD [address] [place] [address], [place] [address] PCP - General Internal Medicine 11/27/10 Rehab Liaison Relationship Specialty Start Date End Date Erica Cannon MD [address] [place] [address], [place] [address] PCP - General Internal Medicine 11/27/10 Rehab Liaison Relationship Specialty Start Date End Date Erica Cannon MD [address] [place] [address], [place] [address] PCP - General Internal Medicine 11/27/10 Rehab Liaison Relationship Specialty Start Date End Date Erica Cannon MD [address] [place] [address], [place] [address] PCP - General Internal Medicine 11/27/10 Rehab Liaison Relationship Specialty Start Date End Date Erica Cannon MD [facility] [place] [address] PCP - General Internal Medicine 11/27/10 Rehab Liaison Relationship Specialty Start Date End Date Erica Cannon MD [address] [place] [address], [place] [address] PCP - General Internal Medicine 11/27/10 Rehab Liaison Relationship Specialty Start Date End Date Erica Cannon MD [address] [place] [address], [place] [address] PCP - General Internal Medicine 11/27/10 Rehab Liaison Relationship Specialty Start Date End Date Erica Cannon MD [address] [place] [address], [place] [address] PCP - General Internal Medicine 11/27/10 Rehab Liaison Relationship Specialty Start Date End Date Erica Cannon MD [address] [place] [address], [place] [address] PCP - General Internal Medicine 11/27/10 Rehab Liaison Relationship Specialty Start Date End Date Erica Cannon MD [address] [place] [address], [place] [address] PCP - General Internal Medicine 11/27/10 Rehab Liaison Relationship Specialty Start Date End Date Erica Cannon MD [address] [place] [address], [place] [address] PCP - General Internal Medicine 11/27/10 Rehab Liaison Relationship Specialty Start Date End Date Erica Cannon MD [address] [place] [address], [place] [address] PCP - General Internal Medicine 11/27/10 Rehab Liaison Relationship Specialty Start Date End Date Erica Cannon MD [address] [place] [address], [place] [address] PCP - General Internal Medicine 11/27/10 Rehab Liaison Relationship Specialty Start Date End Date Erica Cannon MD [address] [facility] [place] [address] PCP - General Internal Medicine 11/27/10 Rehab Liaison Relationship Specialty Start Date End Date Erica Cannon MD [facility] [address] PCP - General Internal Medicine 11/27/10 Rehab Liaison Relationship Specialty Start Date End Date Erica Canonn MD [address] [place] [address], [place] [address] PCP - General Internal Medicine 11/27/10 Rehab Liaison Relationship Specialty Start Date End Date Erica Cannon MD [address] [place] [address], [place] [address] PCP - General Internal Medicine 11/27/10 Rehab Liaison Relationship Specialty Start Date End Date Erica Cannon MD [address] [place] [address], [place] [address] PCP - General Internal Medicine 11/27/10 Rehab Liaison Relationship Specialty Start Date End Date Erica Cannon MD [address] [place] [address], [place] [address] PCP - General Internal Medicine 11/27/10 Rehab Liaison Relationship Specialty Start Date End Date Erica Cannon MD [address] [place] [address], [place] [address] PCP - General Internal Medicine 11/27/10 Rehab Liaison Relationship Specialty Start Date End Date Erica Cannon MD [address] [place] [address], [place] [address] PCP - General Internal Medicine 11/27/10 Rehab Liaison Relationship Specialty Start Date End Date Erica Cannon MD [address] [place] [address], [place] [address] PCP - General Internal Medicine 11/27/10 [facility] Aparicio, [facility] [address] [facility] [place] [address] Pharmacy 05/21/22 Rehab Liaison Relationship Specialty Start Date End Date Erica Cannon MD [address] [facility] [place] [address] PCP - General Internal Medicine 11/27/10 Aurora Aparicio, [facility] [address] [facility] [place] [address] Pharmacy 05/21/22 Rehab Liaison Relationship Specialty Start Date End Date Erica Cannon MD [address] [facility] [place] [address] PCP - General Internal Medicine 11/27/10 Aurora Aparicio, [facility] [address] [facility] [place] [address] Pharmacy 05/21/22 Rehab Liaison Relationship Specialty Start Date End Date Erica Cannon MD [address] [facility] [place] [address] PCP - General Internal Medicine 11/27/10 Aurora Aparicio, [facility] [address] [facility] [place] [address] Pharmacy 05/21/22 Rehab Liaison Relationship Specialty Start Date End Date Erica Cannon MD [address] [facility] [place] [address] PCP - General Internal Medicine 11/27/10 [place], [facility] [address] [facility] [place] [address] Pharmacy 05/21/22 Rehab Liaison Relationship Specialty Start Date End Date Erica Cannon MD [address] [facility] [place] [address] PCP - General Internal Medicine 11/27/10 [place] Aparicio, [facility] [address] [place] [address] Pharmacy 05/21/22 Rehab Liaison Relationship Specialty Start Date End Date Erica Cannon MD [address] [facility] [place] [address] PCP - General Internal Medicine 11/27/10 Aurora Aparicio, [facility] [address] [facility] [place] [address] Pharmacy 05/21/22 Rehab Liaison Relationship Specialty Start Date End Date Erica Cannon MD [address] [facility] [place] [address] PCP - General Internal Medicine 11/27/10 Aurora Aparicio, [facility] [address] [facility] [place] [address] Pharmacy 05/21/22 Rehab Liaison Relationship Specialty Start Date End Date Erica Cannon MD [address] [facility] [place] [address] PCP - General Internal Medicine 11/27/10 Aurora Aparicio, [facility] [address] [facility] [place] [address] Pharmacy 05/21/22 Rehab Liaison Relationship Specialty Start Date End Date Erica Cannon MD [address] [facility] [place] [address] PCP - General Internal Medicine 11/27/10 Aurora Aparicio, [facility] [address] [facility] [place] [address] Pharmacy 05/21/22 Rehab Liaison Relationship Specialty Start Date End Date Erica Cannon MD [address] [facility] [place] [address] PCP - General Internal Medicine 11/27/10 [facility] [address] [facility] [address] Pharmacy 05/21/22 Rehab Liaison Relationship Specialty Start Date End Date Erica Cannon MD [address] [facility] [place] [address] PCP - General Internal Medicine 11/27/10 [facility] [address] [facility] [place] [address] Pharmacy 05/21/22 Rehab Liaison Relationship Specialty Start Date End Date Erica Cannon MD [address] [facility] [place] [address] PCP - General Internal Medicine 11/27/10 [facility] [address] [facility] [address] Pharmacy 05/21/22 Team Status: Active Member Role Status Dates Dr. Erica Cannon MD Family Provider Active Dr. Erica Cannon MD Primary Care Provider Active Team Status: Active Member Role Status Dates Dr. Erica Cannon MD Primary Care Provider Active Dr. Princess Tran MD Emergency Provider Active Dr. Sam Perez MD Admit Provider, Attending Pro vider Active Team Status: Active Member Role Status Dates Dr. Erica Cannon MD Primary Care Provider Active Dr. Princess Tran MD Emergency Provider Active Dr. Sam Perez MD Admit Provider, Other Provide r Active Dr. Lisa Mendoza MD Attending Provider, Other Provid er Active Dr. Ammy Agarwal MD Other Provider Active Team Status: Active Member Role Status Dates Dr. Erica Cannon MD Primary Care Provider Active Dr. Princess Tran MD Emergency Provider Active Dr. Sam Perez MD Admit Provider, Other Provide r Active Dr. Ammy Agarwal MD Other Provider Active Dr. Winter Hamm MD Attending Provider, Other Prov ider Active Dr. Lisa Mendoza MD Other Provider Active Team Status: Active Member Role Status Dates Dr. Erica Cannon MD Primary Care Provider Active Dr. Princess Tran MD Emergency Provider Active Dr. Sam Perez MD Admit Provider, Other Provide r Active Dr. Ammy Agarwal MD Other Provider Active Dr. Winter Hamm MD Attending Provider, Other Prov ider Active Dr. Lisa Mendoza MD Other Provider Active Dr. Raysa Knox MD Other Provider Active Team Status: Active Member Role Status Dates Dr. Erica Cannon MD Primary Care Provider Active Dr. Princess Tran MD Emergency Provider Active Dr. Sam Perez MD Admit Provider, Other Provide r Active Dr. Ammy Agarwal MD Other Provider Active Dr. Winter Hamm MD Other Provider Active Dr. Lisa Mendoza MD Other Provider Active Dr. Raysa Knox MD Attending Provider, Other Pro vider Active Team Status: Active Member Role Status Dates Dr. Erica Cannon MD Primary Care Provider Active Dr. Princess Tran MD Emergency Provider Active Dr. Sam Perez [...] MD Primary Care Provider Active Dr. Princess Tran MD Emergency Provider Active Dr. Sam Perez [...] MD Primary Care Provider Active Dr. Princess Tran MD Emergency Provider Active Dr. Sam Perez MD Admit Provider, Other Provide r Active Dr. Ammy Agarwal MD Other Provider Active Dr. Lisa Mendoza MD Other Provider Active Dr. Raysa Knox MD Other Provider Active Dr. Jim Pizarro DO Attending Provider Active Dr. Winter Hamm MD Other Provider Active Rehab Liaison Relationship Specialty Start Date End Date Erica Cannon MD [address] [facility] [place] [address] PCP - General Internal Medicine 11/27/10 [facility] [address] [facility] [place] [address] Pharmacy 05/21/22 Rehab Liaison Relationship Specialty Start Date End Date Erica Cannon MD [address] [facility] [place] [address] PCP - General Internal Medicine 11/27/10 [facility] [address] [facility] [place] [address] Pharmacy 05/21/22 Rehab Liaison Relationship Specialty Start Date End Date Erica Cannon MD [address] [facility] [place] [place] [address] PCP - General Internal Medicine 11/27/10 [facility] [address] [facility] [place] [address] Pharmacy 05/21/22 Rehab Liaison Relationship Specialty Start Date End Date Erica Cannon MD [address] [facility] [place] [place] [address] PCP - General Internal Medicine 11/27/10 [facility] [address] [place] [address] Pharmacy 05/21/22 Rehab Liaison Relationship Specialty Start Date End Date Erica Cannon MD [address] [place] [address] PCP - General Internal Medicine 11/27/10 Everett[facility]ettJustinmaggie, [facility] [address] [place] [address] Pharmacy 05/21/22 Rehab Liaison Relationship Specialty Start Date End Date Erica Cannon MD [address] [place] [address] PCP - General Internal Medicine 11/27/10 [facility] Aparicio, [facility] [address] [facility] [place] [address] Pharmacy 05/21/22 Rehab Liaison Relationship Specialty Start Date End Date Erica Cannon MD [address] [place] [address] PCP - General Internal Medicine 11/27/10 [facility]ur[facility] rowland, [facility] [address] [place] [address] Pharmacy 05/21/22 Rehab Liaison Relationship Specialty Start Date End Date Erica Cannon MD [address] [facility] [place] [address] PCP - General Internal Medicine 11/27/10 Everettjanett Justinmaggie, [facility] [address] [facility] [place] [address] Pharmacy 05/21/22 Rehab Liaison Relationship Specialty Start Date End Date Erica Cannon MD [address] [place] [address] PCP - General Internal Medicine 11/27/10 [facility] [address] [place] [address] Pharmacy 05/21/22 Rehab Liaison Relationship Specialty Start Date End Date Erica Cannon MD [address] [place] [address] PCP - General Internal Medicine 11/27/10 [facility] [address] [place] [address] Pharmacy 05/21/22 Rehab Liaison Relationship Specialty Start Date End Date Erica Cannon MD [address] [place] [address] PCP - General Internal Medicine 11/27/10 [facility] [address] [place] [address] Pharmacy 05/21/22 Rehab Liaison Relationship Specialty Start Date End Date Erica Cannon MD [address] [place] [address] PCP - General Internal Medicine 11/27/10 [facility] [address] [place] [address] Pharmacy 05/21/22 Rehab Liaison Relationship Specialty Start Date End Date Erica Cannon MD [address] [place] [address] PCP - General Internal Medicine 11/27/10 [facility] [address] [place] [address] Pharmacy 05/21/22 Rehab Liaison Relationship Specialty Start Date End Date Erica Cannon MD [address] [place] [address] PCP - General Internal Medicine 11/27/10 [facility] [address] [place] [address] Pharmacy 05/21/22 Rehab Liaison Relationship Specialty Start Date End Date Erica Cannon MD [address] [place] [address] PCP - General Internal Medicine 11/27/10 [facility] [address] [place] [address] Pharmacy 05/21/22 Rehab Liaison Relationship Specialty Start Date End Date Erica Cannon MD [address] [place] [address] PCP - General Internal Medicine 11/27/10 Rehab Liaison Relationship Specialty Start Date End Date Erica Cannon MD [address] [place] [address] PCP - General Internal Medicine 11/27/10 [facility] [address] [place] [address] Pharmacy 05/21/22 12/03/22 Rehab Liaison Relationship Specialty Start Date End Date Erica Cannon MD [address] [place] [address] PCP - General Internal Medicine 11/27/10 Aurora Aparicio, [facility] [address] [place] [address] Pharmacy 05/21/22 12/03/22 Rehab Liaison Relationship Specialty Start Date End Date Erica Cannon MD [address] [place], [place] [address] PCP - General Internal Medicine 11/27/10 Rehab Liaison Relationship Specialty Start Date End Date Erica Cannon MD [address] [place], [place] [address] PCP - General Internal Medicine 11/27/10 Rehab Liaison Relationship Specialty Start Date End Date Erica Cannon MD [address] [place] [address] PCP - General Internal Medicine 11/27/10 Rehab Liaison Relationship Specialty Start Date End Date Erica Cannon MD [address] [place] [address] PCP - General Internal Medicine 11/27/10 Rehab Liaison Relationship Specialty Start Date End Date Erica Cannon MD [address] [place] [address] PCP - General Internal Medicine 11/27/10 Leticia Echavarria, [facility] [address] [place] [address] Pharmacist Pharmacy 01/29/23 Rehab Liaison Relationship Specialty Start Date End Date Erica Cannon MD [address] [place], [place] [address] PCP - General Internal Medicine 11/27/10 [place] [address] [place] [address] Pharmacist Pharmacy 01/29/23 Rehab Liaison Relationship Specialty Start Date End Date Erica Cannon MD [address] [place] [address] PCP - General Internal Medicine 11/27/10 [place]Wal[place] [address] [place] [address] Pharmacist Pharmacy 01/29/23 Rehab Liaison Relationship Specialty Start Date End Date Erica Cannon MD [address] [place] [address] PCP - General Internal Medicine 11/27/10 [place], [place] [address] [place] [address] Pharmacist Pharmacy 01/29/23 Rehab Liaison Relationship Specialty Start Date End Date Erica Cannon MD [address] [place] [address] PCP - General Internal Medicine 11/27/10 [place] [address] [place] [address] Pharmacist Pharmacy 01/29/23 Rehab Liaison Relationship Specialty Start Date End Date Erica Cannon MD [address] [place] [address] PCP - General Internal Medicine 11/27/10 [place] [address] [place] [address] Pharmacist Pharmacy 01/29/23 Rehab Liaison Relationship Specialty Start Date End Date Erica Cannon MD [address] [place] [address] PCP - General Internal Medicine 11/27/10 [place] [address] [place] [address] Pharmacist Pharmacy 01/29/23 Rehab Liaison Relationship Specialty Start Date End Date Erica Cannon MD [address] [place] [address] PCP - General Internal Medicine 11/27/10 [place] [address] [place] [address] Pharmacist Pharmacy 01/29/23 Rehab Liaison Relationship Specialty Start Date End Date Erica Cannon MD [address] [place] [address] PCP - General Internal Medicine 11/27/10 [place] [address] [place] [address] Pharmacist Pharmacy 01/29/23 Rehab Liaison Relationship Specialty Start Date End Date Erica Cannon MD [address] [place] [address] PCP - General Internal Medicine 11/27/10 [place] [address] [place] [address] Pharmacist Pharmacy 01/29/23 Rehab Liaison Relationship Specialty Start Date End Date Erica Cannon MD [address] [place] [address] PCP - General Internal Medicine 11/27/10 [place] [address] [place] [address] Pharmacist Pharmacy 01/29/23 Rehab Liaison Relationship Specialty Start Date End Date Erica Cannon MD [address] [place] [address] PCP - General Internal Medicine 11/27/10 [place] [address] [place] [address] Pharmacist Pharmacy 01/29/23 Rehab Liaison Relationship Specialty Start Date End Date Erica Cannon MD [address] [place] [address] PCP - General Internal Medicine 11/27/10 [place] [address] [place] [address] Pharmacist Pharmacy 01/29/23 Rehab Liaison Relationship Specialty Start Date End Date Erica Cannon MD [address] [place] [address] PCP - General Internal Medicine 11/27/10 [place] [address] [place] [address] Pharmacist Pharmacy 01/29/23 Rehab Liaison Relationship Specialty Start Date End Date Erica Cannon MD [address] [place] [address] PCP - General Internal Medicine 11/27/10 [place] [address] [place] [address] Pharmacist Pharmacy 01/29/23 Rehab Liaison Relationship Specialty Start Date End Date Erica Cannon MD [address] [place] [address] PCP - General Internal Medicine 11/27/10 [place] [address] [place] [address] Pharmacist Pharmacy 01/29/23 Rehab Liaison Relationship Specialty Start Date End Date Erica Cannon MD [address] [place] [address] PCP - General Internal Medicine 11/27/10 [place] [address] [place] [address] Pharmacist Pharmacy 01/29/23 Rehab Liaison Relationship Specialty Start Date End Date Erica Cannon MD [address] [place] [address] PCP - General Internal Medicine 11/27/10 [place] [address] [place] [address] Pharmacist Pharmacy 01/29/23 Rehab Liaison Relationship Specialty Start Date End Date Erica Cannon MD [address] [place] [address] PCP - General Internal Medicine 11/27/10 [place] [address] [place] [address] Pharmacist Pharmacy 01/29/23 Rehab Liaison Relationship Specialty Start Date End Date Erica Cannon MD [address] [place] [address] PCP - General Internal Medicine 11/27/10 [place] [address] [place] [address] Pharmacist Pharmacy 01/29/23 Rehab Liaison Relationship Specialty Start Date End Date Erica Cannon MD [address] [place] [address] PCP - General Internal Medicine 11/27/10 [place] [address] [place] [address] Pharmacist Pharmacy 01/29/23 Rehab Liaison Relationship Specialty Start Date End Date Erica Cannon MD [address] [place] [address] PCP - General Internal Medicine 11/27/10 [place] [address] [place] [address] Pharmacist Pharmacy 01/29/23 Rehab Liaison Relationship Specialty Start Date End Date Erica Cannon MD [address] [place] [address] PCP - General Internal Medicine 11/27/10 [place] [address] [place] [address] Pharmacist Pharmacy 01/29/23 Rehab Liaison Relationship Specialty Start Date End Date Erica Cannon MD [address] [facility] [place] [place] [address] PCP - General Internal Medicine 11/27/10 [place] [address] [facility] [place] [address] Pharmacist Pharmacy 01/29/23 Rehab Liaison Relationship Specialty Start Date End Date Erica Cannon MD [address] [place] [address] PCP - General Internal Medicine 11/27/10 [place] [address] [facility] [place] [address] Pharmacist Pharmacy 01/29/23 Rehab Liaison Relationship Specialty Start Date End Date Erica Cannon MD [address] [place] [address] PCP - General Internal Medicine 11/27/10 [place] [address] [facility] [place] [address] Pharmacist Pharmacy 01/29/23 Rehab Liaison Relationship Specialty Start Date End Date Erica Cannon MD [address] [place] [address] PCP - General Internal Medicine 11/27/10 Rehab Liaison Relationship Specialty Start Date End Date Erica Cannon MD [address] [place] [address] PCP - General Internal Medicine 11/27/10 Rehab Liaison Relationship Specialty Start Date End Date Erica Cannon MD [address] [place] [address] PCP - General Internal Medicine 11/27/10 Rehab Liaison Relationship Specialty Start Date End Date Erica Cannon MD [address] [facility] [place] [address] PCP - General Internal Medicine 11/27/10 Rehab Liaison Relationship Specialty Start Date End Date Erica Cannon MD [address] [facility] [place] [address] PCP - General Internal Medicine 11/27/10 Rehab Liaison Relationship Specialty Start Date End Date Erica Cannon MD [address] [facility] [place] [address] PCP - General Internal Medicine 11/27/10 Rehab Liaison Relationship Specialty Start Date End Date Erica Cannon MD [address] [facility] [place] [place] [address] PCP - General Internal Medicine 11/27/10 Rehab Liaison Relationship Specialty Start Date End Date Erica Cannon MD [address] [facility] [place] [address] PCP - General Internal Medicine 11/27/10 Rehab Liaison Relationship Specialty Start Date End Date Erica Cannon MD [address] [facility] [place] [address] PCP - General Internal Medicine 11/27/10 Rehab Liaison Relationship Specialty Start Date End Date Erica Cannon MD [address] [facility] [place] [address] PCP - General Internal Medicine 11/27/10 Rehab Liaison Relationship Specialty Start Date End Date Erica Cannon MD [address] [place], [place] [address]171 PCP - General Internal Medicine 11/27/10 Rehab Liaison Relationship Specialty Start Date End Date Erica Cannon MD [address] [place], [place] [address] PCP - General Internal Medicine 11/27/10 Rehab Liaison Relationship Specialty Start Date End Date Erica Cannon MD [address] [place] [address] PCP - General Internal Medicine 11/27/10 Rehab Liaison Relationship Specialty Start Date End Date Erica Cannon MD [address] [place] [address] PCP - General Internal Medicine 11/27/10 [facility] [address] [place] [id number] Pharmacist Pharmacy 01/29/23 09/21/23 Rehab Liaison Relationship Specialty Start Date End Date Erica Cannon MD [address] [place] [address] PCP - General Internal Medicine 11/27/10 Rehab Liaison Relationship Specialty Start Date End Date Erica Cannon MD [address] [place], [place] [address] PCP - General Internal Medicine 11/27/10 Lydia North APRN.CNS [address] [place] [address] Eng[employer]ver Set Up Operator Internal Medicine 02/02/24 Silvestre Jain OLIVE GROWER.[facility] [address] [place] [address] [facility] Internal Medicine 02/02/24 Rehab Liaison Relationship Specialty Start Date End Date Erica Cannon MD [address] [place] [address] PCP - General Internal Medicine 11/27/10 Lydia North, OLIVE GROWER.RAW MILL OPERATOR [address] [place] [address] [facility] Internal Medicine 02/02/24 Silvestre Jain OLIVE GROWER.[facility] [address] [place] [address] [facility] Internal Medicine 02/02/24 Rehab Liaison Relationship Specialty Start Date End Date Erica Cannon MD [address] [place] [address] PCP - General Internal Medicine 11/27/10 Lydia oNrth, OLIVE GROWER.RAW MILL OPERATOR [address] [place] [address] [facility] Internal Medicine 02/02/24 Silvestre Jain OLIVE GROWER.[facility] [address] [place] [address] [facility] Internal Medicine 02/02/24 Rehab Liaison Relationship Specialty Start Date End Date Erica Cannon MD [address] [place] [address] PCP - General Internal Medicine 11/27/10 Lydia North, OLIVE GROWER.RAW MILL OPERATOR [address] [facility] [place] [address] Engraver Set Up Operator Internal Medicine 02/02/24 Silvestre Jain APRN.[facility] [address] [facility] [place] [address] Engraver Set Up Operator Internal Medicine 02/02/24 Rehab Liaison Relationship Specialty Start Date End Date Erica Cannon MD [address] [facility] [place] [address] PCP - General Internal Medicine 11/27/10 Lydia North, OLIVE GROWER.RAW MILL OPERATOR [address] [facility] [place] [address] Engraver Set Up Operator Internal Medicine 02/02/24 Silvestre Jain APRN.[facility] [address] [place] [address] Engraver Set Up Operator Internal Medicine 02/02/24 Rehab Liaison Relationship Specialty Start Date End Date Erica Cannon MD [address] [place] [address] PCP - General Internal Medicine 11/27/10 Lydia North, OLIVE GROWER.RAW MILL OPERATOR [address] [facility] [place] [address] Engraver Set Up Operator Internal Medicine 02/02/24 Silvestre Jain APRN.[facility] [address] [place] [address] Engraver Set Up Operator Internal Medicine 02/02/24 Rehab Liaison Relationship Specialty Start Date End Date Erica Cannon MD [address] [place] [address] PCP - General Internal Medicine 11/27/10 Lydia North, OLIVE GROWER.RAW MILL OPERATOR [address] [place] [address] Engraver Set Up Operator Internal Medicine 02/02/24 Silvestre Jain OLIVE GROWER.[facility] [address] [place] [address] Engraver Set Up Operator Internal Medicine 02/02/24 Rehab Liaison Relationship Specialty Start Date End Date Erica Cannon MD [address] [place] [address] PCP - General Internal Medicine 11/27/10 Lydia North, OLIVE GROWER.RAW MILL OPERATOR [address] [place] [address] Engraver Set Up Operator Internal Medicine 02/02/24 Silvestre Jain APRN.[facility] [address] [place] [address] Engraver Set Up Operator Internal Medicine 02/02/24 Rehab Liaison Relationship Specialty Start Date End Date Erica Cannon MD [address] [place] [address] PCP - General Internal Medicine 11/27/10 Lydia North, OLIVE GROWER.RAW MILL OPERATOR [address] [place] [address] Engraver Set Up Operator Internal Medicine 02/02/24 Silvestre Jain OLIVE GROWER.[facility] [address] [place] [address] Engraver Set Up Operator Internal Medicine 02/02/24 Rehab Liaison Relationship Specialty Start Date End Date Erica Cannon MD [address] [facility] [place] [address] PCP - General Internal Medicine 11/27/10 Lydia North, OLIVE GROWER.RAW MILL OPERATOR [address] [facility] [place] [place] [address] Engraver Set Up Operator Internal Medicine 02/02/24 Silvestre Jain, OLIVE GROWER.[facility] [address] [facility] [place] [address] [facility] Internal Medicine 02/02/24 Rehab Liaison Relationship Specialty Start Date End Date Erica Cannon MD [address] [facility] [place] [address] PCP - General Internal Medicine 11/27/10 Lydia North, OLIVE GROWER.RAW MILL OPERATOR [address] [facility] [place] [address] [facility] Internal Medicine 02/02/24 Silvestre Jain OLIVE GROWER.[facility] [address] [facility] [place] [address] [facility] Internal Medicine 02/02/24 Rehab Liaison Relationship Specialty Start Date End Date Erica Cannon MD [address] [facility] [place] [address] PCP - General Internal Medicine 11/27/10 Lydia North, OLIVE GROWER.RAW MILL OPERATOR [address] [facility] [place] [address] Engraver Set Up Operator Internal Medicine 02/02/24 Silvestre Jain OLIVE GROWER.[facility] [address] [facility] [place] [address] Engraver Set Up Operator Internal Medicine 05/18/24 Rehab Liaison Relationship Specialty Start Date End Date Erica Cannon MD [address] [facility] [place] [address] PCP - General Internal Medicine 11/27/10 Lydia North, OLIVE GROWER.RAW MILL OPERATOR [address] [facility] [place] [address] Engraver Set Up Operator Internal Medicine 02/02/24 Silvestre Jain OLIVE GROWER.[facility] [address] [facility] [place] [address] Engraver Set Up Operator Internal Medicine 05/18/24 Rehab Liaison Relationship Specialty Start Date End Date Erica Cannon MD [address] [facility] [place] [address] PCP - General Internal Medicine 11/27/10 Lydia North, OLIVE GROWER.RAW MILL OPERATOR [address] [facility] [place] [address] Engraver Set Up Operator Internal Medicine 02/02/24 Silvestre Jain OLIVE GROWER.[facility] [address] [facility] [place] [address] [facility] Internal Medicine 05/18/24 Rehab Liaison Relationship Specialty Start Date End Date Erica Cannon MD [address] [facility] [place] [place] [address] PCP - General Internal Medicine 11/27/10 Lydia North, OLIVE GROWER.RAW MILL OPERATOR [address] [facility] [place] [address] Engraver Set Up Operator Internal Medicine 02/02/24 Silvestre Jain APRN.[facility] [address] [facility] [place] [address] Engraver Set Up Operator Internal Medicine 05/18/24 Rehab Liaison Relationship Specialty Start Date End Date Erica Cannon MD [address] [place] [address] PCP - General Internal Medicine 11/27/10 Lydia North, SOURAV.RAW MILL OPERATOR [address] [place] [address] Engraver Set Up Operator Internal Medicine 02/02/24 Silvestre Jain APRN.[facility] [address] [place] [address] Engraver Set Up Operator Internal Medicine 05/18/24 Rehab Liaison Relationship Specialty Start Date End Date Erica Cannon MD [address] [place] [address] PCP - General Internal Medicine 11/27/10 Lydia North, OLIVE GROWER.RAW MILL OPERATOR [address] [facility] [place] [address] Engraver Set Up Operator Internal Medicine 02/02/24 Silvestre Jain APRN.[facility] [address] [place] [address] Engraver Set Up Operator Internal Medicine 05/18/24 Rehab Liaison Relationship Specialty Start Date End Date Ercia Cannon MD [address] [place] [address] PCP - General Internal Medicine 11/27/10 Lydia North APRN.RAW MILL OPERATOR [address] [place] [address] Engraver Set Up Operator Internal Medicine 02/02/24 Silvestre Jain APRN.[facility] [address] [place] [address] Engraver Set Up Operator Internal Medicine 02/02/24 05/14/24 Silvestre Jain APRN.[facility] [address] [place] [address] Engraver Set Up Operator Internal Medicine 05/18/24 Rehab Liaison Relationship Specialty Start Date End Date Erica Cannon MD [address] [place] [address] PCP - General Internal Medicine 11/27/10 Lydia North, OLIVE GROWER.RAW MILL OPERATOR [address] [place] [address] [facility] Internal Medicine 02/02/24 Silvestre Jain OLIVE GROWER.[facility] [address] [place] [address] [facility] Internal Medicine 05/18/24 Rehab Liaison Relationship Specialty Start Date End Date Erica Cannon MD [address] [place] [address] PCP - General Internal Medicine 11/27/10 Silvestre Jain OLIVE GROWER.[facility] [address] [place] [address] Engraver Set Up Operator Internal Medicine 05/18/24 Lydia North, OLIVE GROWER.RAW MILL OPERATOR [address] [facility] [place] [address] [facility] Internal Medicine 07/14/24 Rehab Liaison Relationship Specialty Start Date End Date Erica Cannon MD [address] [facility] [place] [address] PCP - General Internal Medicine 11/27/10 Silvestre Jain OLIVE GROWER.[facility] [address] [facility] [place] [address] [facility] Internal Medicine 05/18/24 Lydia North, OLIVE GROWER.RAW MILL OPERATOR [address] [facility] [place] [address] [facility] Internal Medicine 07/14/24 Rehab Liaison Relationship Specialty Start Date End Date Erica Cannon MD [address] [facility] [place] [address] PCP - General Internal Medicine 11/27/10 Silvestre Jain OLIVE GROWER.[facility] [address] [facility] [place] [address] [facility] Internal Medicine 05/18/24 Lydia North, OLIVE GROWER.RAW MILL OPERATOR [address] [facility] [place] [address] [facility] Internal Medicine 07/14/24 Rehab Liaison Relationship Specialty Start Date End Date Erica Cannon MD [address] [facility] [place] [address] PCP - General Internal Medicine 11/27/10 Silvestre Jain OLIVE GROWER.[facility] [address] [place] [address] Engraver Set Up Operator Internal Medicine 05/18/24 Lydia North, OLIVE GROWER.RAW MILL OPERATOR [address] [place] [address] Engraver Set Up Operator Internal Medicine 07/14/24 Rehab Liaison Relationship Specialty Start Date End Date Erica Cannon MD [address] [place] [address] PCP - General Internal Medicine 11/27/10 Silvestre Jain OLIVE GROWER.[facility] [address] [place] [address] Engraver Set Up Operator Internal Medicine 05/18/24 Lydia North, OLIVE GROWER.RAW MILL OPERATOR [address] [place] [address] Engraver Set Up Operator Internal Medicine 07/14/24 Rehab Liaison Relationship Specialty Start Date End Date Erica Cannon MD [address] [place] [address] PCP - General Internal Medicine 11/27/10 Silvestre Jain OLIVE GROWER.[facility] [address] [place] [address] Engraver Set Up Operator Internal Medicine 05/18/24 Lydia North, OLIVE GROWER.RAW MILL OPERATOR [address] [place] [address] Engraver Set Up Operator Internal Medicine 07/14/24 Rehab Liaison Relationship Specialty Start Date End Date Erica Cannon MD [address] [facility] [place] [address] PCP - General Internal Medicine 11/27/10 Silvestre Jain APRN.[facility] [address] [place] [address] Engraver Set Up Operator Internal Medicine 05/18/24 Lydia North, OLIVE GROWER.RAW MILL OPERATOR [address] [place] [address] Engraver Set Up Operator Internal Medicine 07/14/24 Rehab Liaison Relationship Specialty Start Date End Date Erica Cannon MD [address] [place] [address] PCP - General Internal Medicine 11/27/10 Silvestre Jain OLIVE GROWER.[facility] [address] [facility] [place] [address] Engraver Set Up Operator Internal Medicine 05/18/24 Lydia North, OLIVE GROWER.RAW MILL OPERATOR [address] [place] [address] Engraver Set Up Operator Internal Medicine 07/14/24 Rehab Liaison Relationship Specialty Start Date End Date Erica Cannon MD [address] [place] [address] PCP - General Internal Medicine 11/27/10 Silvestre Jain OLIVE GROWER.[facility] [address] [place] [address] Engraver Set Up Operator Internal Medicine 05/18/24 Lydia North, OLIVE GROWER.RAW MILL OPERATOR [address] [place] [address] [facility] Internal Medicine 07/14/24 Rehab Liaison Relationship Specialty Start Date End Date Erica Cannon MD [address] [facility] [place] [place] [address] PCP - General Internal Medicine 11/27/10 Silvestre Jain, OLIVE GROWER.[facility] [address] [facility] [place] [place] [address] Engraver Set Up Operator Internal Medicine 05/18/24 Lydia North, OLIVE GROWER.RAW MILL OPERATOR [address] [facility] [place] [address] [facility] Internal Medicine 07/14/24 Rehab Liaison Relationship Specialty Start Date End Date Erica Cannon MD [address] [place] [address] PCP - General Internal Medicine 11/27/10 Silvestre Jain, OLIVE GROWER.[facility] [address] [facility] [place] [place] [address] Engraver Set Up Operator Internal Medicine 05/18/24 Lydia North, OLIVE GROWER.RAW MILL OPERATOR [address] [facility] [place] [address] [facility] Internal Medicine 07/14/24 Rehab Liaison Relationship Specialty Start Date End Date Erica Cannon MD [address] [place] [address] PCP - General Internal Medicine 11/27/10 Silvestre Jain, OLIVE GROWER.[facility] [address] [facility] [place] [address] Engraver Set Up Operator Internal Medicine 05/18/24 North, Lydia, OLIVE GROWER.RAW MILL OPERATOR [address] [facility] [place] [address] Engraver Set Up Operator Internal Medicine 07/14/24 Rehab Liaison Relationship Specialty Start Date End Date Erica Cannon MD [address] [facility] [place] [place] [address] PCP - General Internal Medicine 11/27/10 Silvestre Jain OLIVE GROWER.[facility] [address] [facility] [place] [address] Engraver Set Up Operator Internal Medicine 05/18/24 Lydia North, OLIVE GROWER.RAW MILL OPERATOR [address] [facility] [place] [place] [address] Engraver Set Up Operator Internal Medicine 07/14/24 Rehab Liaison Relationship Specialty Start Date End Date Erica Cannon MD [address] [facility] [place] [address] PCP - General Internal Medicine 11/27/10 Silvestre Jain, OLIVE GROWER.[facility] [address] [facility] [place] [place] [address] Engraver Set Up Operator Internal Medicine 05/18/24 Lydia North, OLIVE GROWER.RAW MILL OPERATOR [address] [facility] [place] [place] [address] [facility] Internal Medicine 07/14/24 Rehab Liaison Relationship Specialty Start Date End Date Erica Cannon MD [address] [facility] [place] [address] PCP - General Internal Medicine 11/27/10 Silvestre Jain OLIVE GROWER.[facility] [address] [facility] [place] [place] [address] Engraver Set Up Operator Internal Medicine 05/18/24 Lydia North, OLIVE GROWER.RAW MILL OPERATOR [address] [facility] [place] [place] [address] Engraver Set Up Operator Internal Medicine 07/14/24 Rehab Liaison Relationship Specialty Start Date End Date Erica Cannon MD [address] [facility] [place] [address] PCP - General Internal Medicine 11/27/10 Silvestre Jain OLIVE GROWER.[facility] [address] [place] [address] Engraver Set Up Operator Internal Medicine 05/18/24 Lydia North, OLIVE GROWER.RAW MILL OPERATOR [address] [place] [address] Engraver Set Up Operator Internal Medicine 07/14/24 Rehab Liaison Relationship Specialty Start Date End Date Erica Cannon MD [address] [place] [address] PCP - General Internal Medicine 11/27/10 Silvestre Jain OLIVE GROWER.[facility] [address] [facility] [place] [place] [address] Engraver Set Up Operator Internal Medicine 05/18/24 Lydia North, OLIVE GROWER.RAW MILL OPERATOR [address] [facility] [place] [place] [address] Engraver Set Up Operator Internal Medicine 07/14/24 Rehab Liaison Relationship Specialty Start Date End Date Erica Cannon MD [address] [place] [address] PCP - General Internal Medicine 11/27/10 Silvestre Jain OLIVE GROWER.[facility] [address] [place] [address] Engraver Set Up Operator Internal Medicine 05/18/24 Lydia North, OLIVE GROWER.RAW MILL OPERATOR [address] [facility] [place] [address] Engraver Set Up Operator Internal Medicine 07/14/24 Rehab Liaison Relationship Specialty Start Date End Date Erica Cannon MD [address] [facility] [place] [address] PCP - General Internal Medicine 11/27/10 Silvestre Jain OLIVE GROWER.[facility] [address] [facility] [place] [address] Engraver Set Up Operator Internal Medicine 05/18/24 Lydia North, OLIVE GROWER.RAW MILL OPERATOR [address] [facility] [place] [address] Engraver Set Up Operator Internal Medicine 07/14/24 Rehab Liaison Relationship Specialty Start Date End Date Erica Cannon MD [address] [facility] [place] [address] PCP - General Internal Medicine 11/27/10 Silvestre Jain OLIVE GROWER.[facility] [address] [facility] [place] [address] Engraver Set Up Operator Internal Medicine 05/18/24 Lydia North, OLIVE GROWER.RAW MILL OPERATOR [address] [facility] [place] [address] Engraver Set Up Operator Internal Medicine 07/14/24 Team Status: Active Member [...] November 01, 2024 End: November 01, 2024 Rehab Liaison Relationship Specialty Start Date End Date Erica Cannon MD [address] [facility] [place] [address] PCP - General Internal Medicine 11/27/10 Silvestre Jain APRN.[facility] [address] [place] [address] [facility] Internal Medicine 05/18/24 Lydia North APRN.RAW MILL OPERATOR [address] [facility] [place] [address] [facility] Internal Medicine 07/14/24 Rehab Liaison Relationship Specialty Start Date End Date Erica Cannon MD [address] [facility] [place], [place] [address] PCP - General Internal Medicine 11/27/10 Silvestre Jain APRN.[facility] [address] [facility] [place] [place] [address] Engraver Set Up Operator Internal Medicine 05/18/24 Lydia North, OLIVE GROWER.RAW MILL OPERATOR [address] [place] [address] Engraver Set Up Operator Internal Medicine 07/14/24 Rehab Liaison Relationship Specialty Start Date End Date Erica Cannon MD [address] [facility] [place] [address] PCP - General Internal Medicine 11/27/10 Silvestre Jain OLIVE GROWER.[facility] [address] [facility] [place] [address] Engraver Set Up Operator Internal Medicine 05/18/24 Lydia North, OLIVE GROWER.RAW MILL OPERATOR [address] [facility] [place] [address] Engraver Set Up Operator Internal Medicine 07/14/24 Rehab Liaison Relationship Specialty Start Date End Date Erica Cannon MD [address] [place] [address] PCP - General Internal Medicine 11/27/10 Silvestre Jain, OLIVE GROWER.[facility] [address] [facility] [place] [address] Engraver Set Up Operator Internal Medicine 05/18/24 Lydia North, OLIVE GROWER.RAW MILL OPERATOR [address] [facility] [place] [address] Engraver Set Up Operator Internal Medicine 07/14/24 Team Status: Active Member Role/Relationship Status Dates Dr. Erica Cannon MD Primary care physician Active Team Status: Inactive Member Role/Relationship Status Dates Dr. Erica Cannon MD Primary care physician Active Start: November 01, 2024 End: November 01, 2024 Dr. Erica Cannon MD Referring Provider Active Start: November 01, 2024 End: November 01, 2024 Dr. Sam Goodson DO Attending physician Active Start: November 01, 2024 End: November 01, 2024 Team Status: Inactive Member Role/Relationship Status Dates Dr. Erica Cannon MD Primary care physician Active Start: December 08, 2024 End: December 08, 2024 Dr. Erica Cannon MD Referring Provider Active Start: December 08, 2024 End: December 08, 2024 Dr. Jennifer Otto MD Attending physician Active Start: December 08, 2024 End: December 08, 2024 Team Status: Active Member Role/Relationship Status Dates Dr. Erica Cannon MD Primary care physician Active Start: December 18, 2024 Dr. Jennifer Otto MD Attending physician Active Start: December 18, 2024 Dr. Jennifer Otto MD Referring Provider Active Start: December 18, 2024 Team Status: Inactive Member Role/Relationship Status Dates Dr. Erica Cannon MD Primary care physician Active Start: December 20, 2024 End: December 20, 2024 Dr. Erica Cannon MD Referring Provider Active Start: December 20, 2024 End: December 20, 2024 Dr. Jennifer Otto MD Attending physician Active Start: December 20, 2024 End: December 20, 2024 Goals (unrecognized section and content) Goals may [...] BE BASED ON THE PRIMARY CLINICAL RECORDS. [facility] [employer] [facility]. provides no warranty or guarantee of the accuracy or completeness of information in this document.
[2025-01-29 11:46] LABS: Anion Gap 8 (5-15); BUN 22 mg/dL (4-19); BUN/Creat Ratio 17.4 RATIO (10-20); Calcium,Total 8.7 mg/dL (7.6-11.0); Carbon Dioxide 26.5 mmol/L (21.0-32.0); Chloride 109 mmol/L (98-108); Glucose 142 mg/dL (70-99); Potassium 4.0 mmol/L (3.3-5.1)
== END | disposition home or self-care (01) ==
LOC: LAB 10:51
PROVIDERS: PCP Internal Medicine; Referring Provider Nurse Practitioner Family; Visit Provider Nurse Practitioner Family
DX: I10 Essential (primary) hypertension (principal); Z68.44 Body mass index [BMI] 60.0-69.9, adult; E11.9 Type 2 diabetes mellitus without complications; G47.30 Sleep apnea, unspecified; R06.00 Dyspnea, unspecified
CPT/HCPCS: 36415; 80048